=== PATIENT | female | born 1945 | race Caucasian/White ===

== ENCOUNTER 2018-04-17 16:19 | Emergency (ER) | payer MEDICARE, SELFPAY ==
[2018-04-17 16:21] VITALS: BP 176/97; PULSE 93; RESP 16; TEMP 37.3; O2SAT 96; BMI 38.2
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
[2018-04-17] MEDS: Morphine 4 MG/ML Syringe SC (17:16)
[2018-04-17] MEDS: Ondansetron 4 MG/2 ML Vial IV (17:16)
--- NOTE | 2018-04-17 19:21 | ED.DEP ---
ED Disposition - Plan for ED Patient: Chief Complaint: Fall Instructions: ED Mechanical Fall Referrals: Emerita Gottlieb MD [Primary Care Provider] -
[2018-04-17 19:34] VITALS: RESP 20
== END 2018-04-17 19:35 | disposition home or self-care (01) ==
PROVIDERS: Emergency Provider Emergency Medicine; Family Provider Internal Medicine; PCP Internal Medicine
DX: S29.012A Strain of muscle and tendon of back wall of thorax, initial encounter (principal); S39.012A Strain of muscle, fascia and tendon of lower back, initial encounter; S09.90XA Unspecified injury of head, initial encounter; I13.0 Hypertensive heart and chronic kidney disease with heart failure and stage 1 through stage 4 chronic kidney disease, or unspecified chronic kidney disease; E11.22 Type 2 diabetes mellitus with diabetic chronic kidney disease; N18.9 Chronic kidney disease, unspecified; I50.9 Heart failure, unspecified; E78.00 Pure hypercholesterolemia, unspecified; G47.30 Sleep apnea, unspecified; Z87.440 Personal history of urinary (tract) infections; Z87.891 Personal history of nicotine dependence; Z79.4 Long term (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 of insulin; Z79.899 Other long term (current) drug therapy; V09.9XXA Pedestrian injured in unspecified transport accident, initial encounter; Y93.89 Activity, other specified; Y92.89 Other specified places as the place of occurrence of the external cause; Y99.8 Other external cause status
CPT/HCPCS: 70450; 71045; 72072; 72100; 72125; 72170; 96372; 96374; 99284; J2405

== ENCOUNTER → 2018-04-27 13:17 | Outpatient (CLI) | payer MEDICARE, SELFPAY ==
--- NOTE | 2018-04-27 13:24 | RAD_ITS ---
STUDY: SWALLOWING STUDY REASON FOR EXAM: Female, 72 years old. Cough. Dysphagia. TECHNIQUE: The examination was performed with Speech Pathology in attendance. Under fluoroscopic observation, the patient ingested thin barium, thick barium, barium pudding, and barium coated cracker. FLUOROSCOPY TIME: 2:03 minutes/seconds. 2166 fluoroscopic images were obtained. RADIOLOGIST INVOLVEMENT: Radiologist was present and providing direct supervision. COMPARISON: None. FINDINGS: The following was observed during swallowing of the various mixtures of barium: Thin Barium: There was no evidence of aspiration or laryngeal penetration. Barium Pudding: There was no evidence of aspiration or laryngeal penetration. Barium Coated Cracker: There was no evidence of aspiration or laryngeal penetration. RAD/Swallowing Function w/Video IMPRESSION: Normal tailored barium swallow study. No evidence of increased risk for aspiration. The swallow study findings were discussed with the patient by the speech pathologist at the conclusion of the examination. Please see speech pathology report for more information and recommendations. Electronically Signed: Santiago Kwok MD at 14:37 EDT Tel [phone], Service support ,
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
== END ==
PROVIDERS: Family Provider Internal Medicine; PCP Internal Medicine; Visit Provider Internal Medicine
DX: R13.10 Dysphagia, unspecified (principal); T17.308A Unspecified foreign body in larynx causing other injury, initial encounter
CPT/HCPCS: 74230; 92611

== ENCOUNTER 2018-04-27 14:50 | Emergency (ER) | payer MEDICARE, SELFPAY ==
[2018-04-27 14:51] VITALS: BP 109/71; PULSE 106; RESP 22; TEMP 36.6; O2SAT 96; BMI 39.9
--- NOTE | 2018-04-27 15:05 | RAD_ITS ---
STUDY: X-RAY CHEST REASON FOR EXAM: Female, 72 years old. Shortness of breath. TECHNIQUE: Single AP portable view of the chest. COMPARISON: Comparison is made with prior study dated April 17, 2018. FINDINGS: Stable mild increased markings in the lingular segment of the left upper lobe. This most likely represents scarring. The right lung is clear. There is no demonstrated pleural abnormality. There is borderline cardiomegaly. A left-sided unipolar pacemaker is in situ. Normal mediastinum and susan. Normal visualized pulmonary arteries. There is atherosclerotic calcification of the aortic arch with tortuosity. There are diffuse degenerative changes of the visualized thoracic spine. Normal visualized ribs, clavicles, and shoulders. There is no demonstrated abnormality of the visualized soft tissue structures of the upper abdomen. RAD/Chest 1 View (Portable) IMPRESSION: Stable mild increased markings at the left lung base suggestive of scarring. Electronically Signed: Santiago Kwok MD at 15:17 EDT Tel [phone], Service support ,
[2018-04-27] MEDS: Albuterol 2.5 MG/3 ML VIAL.NEB. INHALATION (17:11)
[2018-04-27 17:12] VITALS: PULSE 100; RESP 18
[2018-04-27 17:21] VITALS: BP 118/76; PULSE 98; RESP 26; O2SAT 98
[2018-04-27 17:25] LABS: Absolute Lymphocyte Count 2.66 X10^3/ul (0.83-4.51); Absolute Neutrophil Count 8.3 X10^3/uL (2.0-7.7); Basophil# 0.05 X10^3/uL; Basophil% 0.4 % (0-1); Eosinophil# 0.22 X10^3/uL; Eosinophils% 1.8 % (0-5); Hematocrit 38.3 % (37-47); Hemoglobin 11.9 g/dl (12.0-15.0); Lymphocyte # 2.66 X10^3/ul (4.0); Lymphocyte % 22.1 % (19-41); Mean Corp Hgb Conc 31.1 g/gl (32-36); Mean Corpuscular Hgb 24.7 pg (27.0-32.0); Mean Corpuscular Volume 79.6 fL (81-99); Mean Platelet Vol. 11.1 fl (6.2-12.0); Monocyte# 0.75 X10^3/uL; Monocyte% 6.2 % (0-10); Neutrophil # 8.31 X10^3/uL (2.7-7.7); Neutrophil % 69.1 % (47-70); POSITIVE COUNT NO; POSITIVE DIFFERENTIAL NO; POSITIVE MORPHOLOGY NO; Platelet Count 266 K/mm3 (150-450); RBC Distribution Width CV 15.5 % (11.6-14.6); RBC Distribution Width SD 44.9 fl (35.1-43.9); Red Blood Count 4.81 M/mm3 (4.2-5.4)
[2018-04-27 17:37] LABS: ALB/GLOB Ratio 0.7 RATIO (0.9-2.4); AST(SGOT) 12 U/L (15-37); Alanine Aminotransfer ALT/SGPT 21 U/L (13-56); Albumin, Serum 3.2 g/dL (3.2-5.0); Alkaline Phosphatase 87 U/L (45-117); Anion Gap 8 (5-15); BUN 17 mg/dL (7-18); BUN/Creat Ratio 12.6 RATIO (10-20); Calcium,Total 8.9 mg/dL (8.5-10.1); Chloride 102 mmol/L (98-107); Creatinine, Serum 1.35 mg/dL (0.55-1.02); EST Glomerular Filtration Rate 41 mL/min (>60); Est Glom Filt Rate - Afr Amer 49 mL/min (>60); Estimated Creatinine Clearance 31.57 ml/min; Globulin 4.8 g/dL (2.2-4.2); Glucose 357 mg/dL (74-106); Potassium 3.9 mmol/L (3.5-5.1); Sodium Level 137 mmol/L (136-145)
[2018-04-27 17:41] VITALS: RESP 16; O2SAT 98
[2018-04-27 17:57] LABS: BNP,B-Type NATRIURETIC PEPTIDE 207.6 pg/mL (0-100)
--- NOTE | 2018-04-27 18:21 | ED.DCSUM_ITS ---
- ER Visit Summary Date of Service: 04/27/18 Chief Complaint: Shortness of breath, cough History of Present Illness: The patient is a 72 F who is had multiple weeks of shortness of breath and cough. It is worse with exertion. She has a cough is productive of whitish yellow sputum. She has a squeezing pains in her bilateral axillary areas. She states is getting worse. She has had some leg edema. She is already on Lasix. She is felt feverish but did not take her temperature. She did not call her primary care physician about this even though is been ongoing for multiple weeks. Physical Examination: Vital signs reviewed. HEENT exam unremarkable. Heart is regular rate and rhythm without murmurs. Lungs have some slight rales in the right base. Abdomen is soft and nontender. Extremities reveal no edema. Skin exam normal. Neurologic exam normal. Test Results: Chest x-ray reveals chronic changes. Labs show white blood cell count of 12. Hemoglobin 11.9. BNP 207. Troponin normal Emergency Department Course and Treatment: The patient looks very well. This is been ongoing for multiple weeks. I did give her albuterol here. I do not feel she requires admission to the hospital. I will give her a Z-Fadi and prednisone to take at home. She will follow-up with her PCP Treatment Plan: [] Disposition: Discharge Impression: Acute bronchitis This note was generated with [employer] dictation software. It may contain incorrect words, spelling, and punctuation that were not noted in review of the chart prior to signing ED Disposition - Plan for ED Patient: Chief Complaint: Shortness of Breath Referrals: Emerita Gottlieb MD [Primary Care Provider] -
--- NOTE | 2018-04-27 18:21 | ED.DEP ---
ED Disposition - Plan for ED Patient: Disposition: Home or Assisted Living Chief Complaint: Shortness of Breath Instructions: ED Upper Resp Infec Abx Tx Prescriptions: Azithromycin [Zithromax Z-Fadi] 250 mg PO UD #1 box Prednisone [Deltasone] 40 mg PO DAILY #10 tab Referrals: Emerita Gottlieb MD [Primary Care Provider] -
[2018-04-27 18:53] VITALS: BP 126/83; PULSE 84; RESP 18; O2SAT 100
--- NOTE | 2018-04-29 14:10 | CM.ED ---
ED CALLBACK: Follow-up call placed to patient. Patient states she feels better than when in the ED, but she is still tired and has a cough. She states that she has been taking her new prescriptions. I encouraged her to make an appointment with Dr. Gottlieb's office. She tells me she will do this today. Patient mentions medication questions and tells me that she forgets to take her medicines sometimes. We discussed the value of [facility]. Patient is agreeable to referral for [facility]. Referral sent.
== END 2018-04-27 18:54 | disposition home or self-care (01) ==
PROVIDERS: Emergency Provider Emergency Medicine; Family Provider Internal Medicine; PCP Internal Medicine
DX: J20.9 Acute bronchitis, unspecified (principal); R13.10 Dysphagia, unspecified; T17.308A Unspecified foreign body in larynx causing other injury, initial encounter; I50.9 Heart failure, unspecified; Z79.4 Long term (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 of insulin; Z79.899 Other long term (current) drug therapy
CPT/HCPCS: 71045; 80053; 83880; 84484; 85025; 93005; 94640; 94760; 99283

== ENCOUNTER 2018-05-10 07:48 | Emergency (ER) | payer MEDICARE, SELFPAY ==
[2018-05-10 07:48] VITALS: BP 146/94; PULSE 92; RESP 18; TEMP 37.3; O2SAT 99; BMI 41.3
--- NOTE | 2018-05-10 08:00 | CT_ITS ---
STUDY: CT ABDOMEN AND PELVIS WITHOUT CONTRAST REASON FOR EXAM: Female, 72 years old. UTI. RADIATION DOSAGE (If Supplied By Facility): CTDIvol = ( 19.33 ) mGy, DLP = ( 975.52 ) mGycm TECHNIQUE: Transaxial images were obtained from the dome of the diaphragm to the symphysis pubis without oral contrast, and without intravenous contrast. Sagittal and coronal images were reconstructed. Individualized dose optimization techniques were used for this CT. COMPARISON: None. FINDINGS: The visualized lung bases are unremarkable. The visualized portions of the heart are within normal limits. Normal liver. There are multiple gallstones. Normal spleen. Normal pancreas. Normal bilateral adrenal glands. Normal right kidney. Normal left kidney. Normal visualized stomach. Normal small intestine. Normal colon. There is non-visualization of the appendix. There is diffuse atherosclerotic calcification of the abdominal aorta, without a demonstrated aneurysm. Normal inferior vena cava. Normal retroperitoneum. Normal urinary bladder. Normal abdominal wall. There are diffuse degenerative changes of the visualized lumbar spine. CT/Abdomen/Pelvis without Cont IMPRESSION: Cholelithiasis. Moderate aortoiliac atherosclerosis Electronically Signed: Starla Abdullahi MD at 9:24 EDT Tel , Service support ,
--- NOTE | 2018-05-10 08:12 | ED.DCSUM_ITS ---
- ER Visit Summary Date of Service: 05/10/18 Chief Complaint: [Dysuria] History of Present Illness: The patient is a 72 F who has had burning with urination and frequency for the past 3 days. She lives alone and now she is incontinent, however she also complains of stool incontinence. Apparently she knows what she has to go but it is hard for her to get to the toilet in time. There is no diarrhea. She feels more weak. Physical Examination: Not appear in acute distress. Slightly dry mucous membranes, no obvious facial deformity No C-spine tenderness supple neck. Regular rate and rhythm without any obvious murmurs Clear lungs bilaterally speaking in full sentences without any obvious respiratory distress Abdomen soft with tenderness over the left lower quadrant area. No CVA tenderness. No guarding or rebound. Moves all extremities without any difficulty or pain. Skin does not show any obvious rashes or lesions, no trauma. Alert oriented ?3 with no gross focal deficit Emergency Department Course and Treatment: [Unremarkable workup. She did have signs and symptoms consistent with yeast infection, as far as her abdominal pain her CT is unremarkable without leukocytosis, I reassured her and she will be discharged in stable condition.] Impression: Abdominal pain Vaginal candidiasis This note was generated with [employer] dictation software. It may contain incorrect words, spelling, and punctuation that were not noted in review of the chart prior to signing ED Disposition - Plan for ED Patient: Disposition: Home or Assisted Living Chief Complaint: Complaint Instructions: ED Vaginal Infec Fungal Cher, Abdominal Pain Referrals: Emerita Gottlieb MD [Primary Care Provider] - 2 Days
[2018-05-10 08:40] LABS: Absolute Lymphocyte Count 2.04 X10^3/ul (0.83-4.51); Absolute Neutrophil Count 7.5 X10^3/uL (2.0-7.7); Basophil# 0.02 X10^3/uL; Basophil% 0.2 % (0-1); Eosinophil# 0.23 X10^3/uL; Eosinophils% 2.2 % (0-5); Hematocrit 38.3 % (37-47); Hemoglobin 12.1 g/dl (12.0-15.0); Lymphocyte # 2.04 X10^3/ul (4.0); Lymphocyte % 19.4 % (19-41); Mean Corp Hgb Conc 31.6 g/gl (32-36); Mean Corpuscular Hgb 25.2 pg (27.0-32.0); Mean Corpuscular Volume 79.6 fL (81-99); Monocyte# 0.68 X10^3/uL; Monocyte% 6.5 % (0-10); Neutrophil # 7.51 X10^3/uL (2.7-7.7); Neutrophil % 71.5 % (47-70); Platelet Count 166 K/mm3 (150-450); RBC Distribution Width CV 15.2 % (11.6-14.6); RBC Distribution Width SD 43.6 fl (35.1-43.9); Red Blood Count 4.81 M/mm3 (4.2-5.4); White Blood Count 10.5 K/mm3 (4.4-11.0)
[2018-05-10 08:45] LABS: ALB/GLOB Ratio 0.7 RATIO (0.9-2.4); AST(SGOT) 17 U/L (15-37); Alanine Aminotransfer ALT/SGPT 20 U/L (13-56); Albumin, Serum 3.2 g/dL (3.2-5.0); Alkaline Phosphatase 84 U/L (45-117); Anion Gap 6 (5-15); BUN 23 mg/dL (7-18); BUN/Creat Ratio 19.2 RATIO (10-20); Calcium,Total 9.3 mg/dL (8.5-10.1); Chloride 107 mmol/L (98-107); EST Glomerular Filtration Rate 47 mL/min (>60); Est Glom Filt Rate - Afr Amer 56 mL/min (>60); Estimated Creatinine Clearance 35.52 ml/min; Globulin 4.4 g/dL (2.2-4.2); Glucose 260 mg/dL (74-106); Potassium 4.2 mmol/L (3.5-5.1); Protein, Total 7.6 g/dL (6.4-8.2); Sodium Level 140 mmol/L (136-145)
[2018-05-10 08:46] LABS: Differential Indicated SCAN CRITERIA MET; POSITIVE COUNT NO; POSITIVE DIFFERENTIAL NO; POSITIVE MORPHOLOGY YES
[2018-05-10 10:56] VITALS: BP 173/76; PULSE 80; RESP 18; O2SAT 98
[2018-05-10 10:57] LABS: Bacteria 0 SEEN /hpf (None Seen); Mucous, Urine 0 SEEN /hpf (<or=2+); Red Blood Cells-Urine 0 SEEN /hpf (0-5); White Blood Cells 0 SEEN /hpf (0-5)
[2018-05-10 10:58] LABS: Color, Urine Yellow (Yellow); Glucose, Dipstick 250 mg/dl (Normal); Ketone-Dipstick Negative (Negative); Leukocyte Esterase-Dipstick Negative /ul (Negative); Nitrite-Dipstick Negative (Negative); Occult Blood-Urine 10 /ul (Negative); Protein-Dipstick 15 mg/dl (Negative); Specific Gravity, Urine 1.015 (1.002-1.030); Urine Bilirubin Dipstick Negative (Negative); Urine Clarity Clear (Clear); Urine Urobilinogen Normal (Normal)
[2018-05-10 11:12] LABS: Squamous Epithelial Cells - UA 0-5 SEEN /hpf (5-10)
--- NOTE | 2018-05-10 12:01 | ED.DEP ---
ED Disposition - Plan for ED Patient: Disposition: Home or Assisted Living Chief Complaint: Complaint Instructions: Abdominal Pain, ED Vaginal Infec Fungal Cher Prescriptions: Fluconazole [Diflucan] 150 mg PO X1 #1 tab Referrals: Emerita Gottlieb MD [Primary Care Provider] - 2 Days
[2018-05-10] MEDS: Fluconazole 100 MG Tablet 150 MG PO (12:18)
[2018-05-10 12:34] VITALS: BP 181/91; PULSE 100; RESP 18; O2SAT 98
--- NOTE | 2018-05-10 12:35 | ED.RN ---
REVIEWED D/C INSTRUCTIONS, FOLLOW UP CARE, PRESCRIPTION, AND S/S THAT WOULD WARRANT A RETURN TO THE ED WITH PT. PT VERBALIZED AN UNDERSTANDING AND DENIES FURTHER QUESTIONS FOR THIS RN. PT SKIN P/W/D, RESP EVEN AND UNLABORED, PT A&O X 3, NO DISTRESS NOTED. PT AMBULATED OUT OF ED, GAIT STEADY.
== END 2018-05-10 12:37 | disposition home or self-care (01) ==
PROVIDERS: Emergency Provider Emergency Medicine; Family Provider Internal Medicine; PCP Internal Medicine
DX: R10.32 Left lower quadrant pain (principal); B37.3 Candidiasis of vulva and vagina; E66.9 Obesity, unspecified; I10 Essential (primary) hypertension; E11.9 Type 2 diabetes mellitus without complications; Z79.4 Long term (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 of insulin; Z79.899 Other long term (current) drug therapy
CPT/HCPCS: 74176; 80053; 81001; 85025; 99285; A4216

== ENCOUNTER → 2018-05-12 15:58 | Outpatient (CLI) | payer MEDICARE, SELFPAY ==
[2018-05-12 17:39] LABS: Hematocrit 36.6 % (37-47); Hemoglobin 11.4 g/dl (12.0-15.0); Mean Corp Hgb Conc 31.1 g/gl (32-36); Mean Corpuscular Hgb 25.2 pg (27.0-32.0); Mean Platelet Vol. 11.7 fl (6.2-12.0); Platelet Count 172 K/mm3 (150-450); RBC Distribution Width CV 15.5 % (11.6-14.6); RBC Distribution Width SD 45.6 fl (35.1-43.9); Red Blood Count 4.52 M/mm3 (4.2-5.4); White Blood Count 10.4 K/mm3 (4.4-11.0)
[2018-05-12 17:47] LABS: Scan Indicated on CBC? Y/N YES- FLAGS NOTED
[2018-05-12 18:16] LABS: ALB/GLOB Ratio 0.7 RATIO (0.9-2.4); AST(SGOT) 15 U/L (15-37); Alanine Aminotransfer ALT/SGPT 19 U/L (13-56); Alkaline Phosphatase 76 U/L (45-117); Anion Gap 6 (5-15); BUN 26 mg/dL (7-18); BUN/Creat Ratio 20.3 RATIO (10-20); Calcium,Total 8.4 mg/dL (8.5-10.1); Chloride 107 mmol/L (98-107); Creatinine, Serum 1.28 mg/dL (0.55-1.02); EST Glomerular Filtration Rate 43 mL/min (>60); Est Glom Filt Rate - Afr Amer 52 mL/min (>60); Globulin 4.3 g/dL (2.2-4.2); Glucose 338 mg/dL (74-106); Phosphorus 3.5 mg/dL (2.5-4.9); Potassium 4.4 mmol/L (3.5-5.1); Protein, Total 7.3 g/dL (6.4-8.2); Sodium Level 140 mmol/L (136-145)
[2018-05-13 08:35] LABS: Vitamin B12 478 pg/mL (211-911); Vitamin D,25 Hydroxy 23.3 ng/mL (29.95-100.01)
[2018-05-15 00:19] LABS: Rapid Plasmin Reagin (RPR) NONREACTIVE (NONREACTIVE)
[2018-05-16 13:06] LABS: Creatinine, Urine 0.86 g/L (0.30-3.00)
== END ==
PROVIDERS: Family Provider Internal Medicine; PCP Internal Medicine; Visit Provider Nurse Practitioner Acute Care
DX: R56.9 Unspecified convulsions (principal); R41.3 Other amnesia
CPT/HCPCS: 36415; 80053; 82175; 82306; 82570; 82607; 82746; 83655; 83735; 83825; 84100; 85027; 86592

== ENCOUNTER → 2018-05-27 14:23 | Outpatient (CLI) | payer MEDICARE, SELFPAY | PROVIDERS: Family Provider Internal Medicine; PCP Internal Medicine; Visit Provider Nurse Practitioner Acute Care | DX: R41.3 Other amnesia (principal); R41.0 Disorientation, unspecified; R56.9 Unspecified convulsions | CPT/HCPCS: 70450 ==

== ENCOUNTER → 2018-05-29 20:32 | Outpatient (CLI) | payer MEDICARE, SELFPAY | PROVIDERS: Family Provider Internal Medicine; PCP Internal Medicine; Visit Provider Nurse Practitioner Acute Care | DX: G47.33 Obstructive sleep apnea (adult) (pediatric) (principal) | CPT/HCPCS: 95810 ==

== ENCOUNTER 2018-06-04 19:20 | Observation (INO) | payer MEDICARE, SELFPAY ==
[2018-06-04 19:21] VITALS: BP 131/74; PULSE 90; RESP 20; TEMP 36.8; O2SAT 95; BMI 40.1
--- NOTE | 2018-06-04 19:30 | ED.RN ---
RN CALLED FOR EKG, PULLED OLD EKGS FOR
--- NOTE | 2018-06-04 20:00 | ED.VISSUMM ---
- ER Visit Summary Date of Service: 06/04/18 Chief Complaint: Chest pain History of Present Illness: The patient is a 72 F with history of stroke, coronary artery disease, CHF, diabetes, hypertension, atrial fibrillation who is on Xarelto on prasugrel who presents for chest pain. Onset was this evening prior to calling 911. Patient states she was sitting on the porch and got up to walk into the living room. When she got into the living room she had onset of chest pain and epigastric pain, describing it like being punched in the chest. Pain is substernal and currently radiates down to the upper abdomen. She has associated shortness of breath. Denies fever, nausea or vomiting, diarrhea, urinary symptoms. No cough or fever. Pain waxes and wanes in intensity currently. Patient received aspirin prehospital. She denies taking aspirin or nitro at home. Physical Examination: Vital signs: afebrile, hemodynamically stable, no hypoxia on room air General: well nourished, well developed, in no distress Skin: warm, dry, no rash, no pallor HEENT: normocephalic and atraumatic; PERRL, EOMI, moist mucous membranes Cardiovascular: irregular rhythm without murmurs, symmetric tense 1+ pitting peripheral edema, tenderness, 2+ pulses all distal extremities Respiratory: No increased work of breathing, lungs are clear to auscultation bilaterally, no rales, rhonchi or wheezing Abdominal: Abdomen is obese, distended, tender to palpation diffusely, especially in the upper quadrants, normoactive bowel sounds, no guarding or rebound, no pulsatile masses MSK: Moves all extremities, no deformities, normal strength Neuro: Awake and alert, oriented ?4. No facial droop, sensation and motor function intact and symmetric Test Results: Abnormal Lab Results 06/04/18 06/04/18 06/04/18 19:35 19:35 19:35 WBC 10.0 RBC 4.36 Hgb 10.7 L Hct 34.6 L MCV 79.4 L MCH 24.5 L MCHC 30.9 L RDW 15.4 H RDW Differential 44.6 H Plt Count 200 MPV 11.7 Immature Gran % (Auto) 0.200 Neut % (Auto) 70.1 H Lymph % (Auto) 19.5 [place] % (Auto) 7.2 Eos % (Auto) 2.6 Baso % (Auto) 0.4 Absolute Neuts (auto) 7.0 Absolute Lymphs (auto) 1.95 Total Counted Not Reportable PT 19.5 H INR 1.6 APTT 38.2 H Sodium 144 Potassium 3.9 Chloride 109 H Carbon Dioxide 27.0 Anion Gap 8 BUN 20 H Creatinine 1.20 H Estim Creat Clear Calc 35.52 Est GFR (MDRD) Af Amer 56 L Est GFR (MDRD) Non-Af 47 L BUN/Creatinine Ratio 16.7 Glucose 172 H Calcium 8.5 Total Bilirubin Direct Bilirubin AST ALT Alkaline Phosphatase Troponin I < 0.015 Total Protein Albumin Globulin Lipase Urine Color Urine Clarity Urine pH Ur Specific [place] Urine Protein Urine Glucose (UA) Urine Ketones Urine Occult Blood Urine Nitrite Urine Bilirubin Urine Urobilinogen Ur Leukocyte Esterase Urine RBC Urine WBC Ur Squamous Epith Cells Ur Transition Epith Cell Urine Bacteria Hyaline Casts Urine Mucus 06/04/18 06/04/18 06/04/18 19:35 20:30 23:25 WBC RBC Hgb Hct MCV MCH MCHC RDW RDW Differential Plt Count MPV Immature Gran % (Auto) Neut % (Auto) Lymph % (Auto) [place] % (Auto) Eos % (Auto) Baso % (Auto) Absolute Neuts (auto) Absolute Lymphs (auto) Total Counted PT INR APTT Sodium Potassium Chloride Carbon Dioxide Anion Gap BUN Creatinine Estim Creat Clear Calc Est GFR (MDRD) Af Amer Est GFR (MDRD) Non-Af BUN/Creatinine Ratio Glucose Calcium Total Bilirubin 0.60 Direct Bilirubin 0.14 AST 13 L ALT 18 Alkaline Phosphatase 91 Troponin I < 0.015 Total Protein 7.2 Albumin 3.1 L Globulin 4.1 Lipase 65 L Urine Color Yellow Urine Clarity Cloudy Urine pH 5.0 Ur Specific [place] 1.020 Urine Protein 15 H Urine Glucose (UA) Normal Urine Ketones Negative Urine Occult Blood 25 H Urine Nitrite Negative Urine Bilirubin Negative Urine Urobilinogen Normal Ur Leukocyte Esterase 500 H Urine RBC 0-5 SEEN Urine WBC 10-25 SEEN Ur Squamous Epith Cells 0-5 SEEN Ur Transition Epith Cell 0-5 SEEN Urine Bacteria 0 SEEN Hyaline Casts 5-10 SEEN Urine Mucus 1+ Clinical Impression(s) from Imaging Studies Chest X-Ray 06/04/18 19:35 IMPRESSION: No acute thoracic pathology. Electronically Signed: Jarad Alvarez, at 19:48 EDT Tel , Service support , Abdomen/Pelvis CT 06/04/18 19:55 IMPRESSION: No acute abdominal or pelvic pathology demonstrated on this noncontrast CT. Atherosclerosis and coronary artery disease. Gallstones. Electronically Signed: Jarad Alvarez, at 20:41 EDT Tel , Service support , Emergency Department Course and Treatment: Patient presents with complaint of acute onset of chest pain with radiation into the abdomen. Given her age and multiple comorbidities, the associated abdominal pain may be cardiac in nature, or may be secondary to a primary abdominal process. EKG showed a right bundle branch block that was not present on patient's prior EKGs. The QRS morphology is similar but the QRS interval has widened. No ischemic changes noted. Troponin negative. Labs showed no significant anemia or leukocytosis. Renal function at baseline. Hepatic function within normal limits. Urine was insistent with asymptomatic pyuria, as patient does not have any urinary complaints at this time. Patient received aspirin prehospital and received nitroglycerin sublingual. She had modest improvement of her pain with the nitro. She was given additional morphine. CT the abdomen and pelvis was performed given patient's abdominal tenderness, and it showed no acute process to account for patient's pain. Chest x-ray also showed no signs of acute CHF or other acute process. On reevaluation patient stated her pain was returning, and thus a repeat EKG was performed. It showed no changes from the initial one. Given patient's significant risk factors and cardiac history as well as her presenting complaints, she was admitted for further chest pain workup. Patient discussed with Dr. Chaney for admission under observation status. Treatment Plan: [] Disposition: [] Impression: Acute chest pain, abdominal pain, history of coronary artery disease, history of CHF, history of diabetes, history of A. fib, history of hypertension This note was generated with [employer] software. It may contain incorrect words, spelling, and punctuation that were not noted in review of the chart prior to signing ED Disposition - Plan for ED Patient: Disposition: Acute Care Hospital [facility] Chief Complaint: Chest Pain
[2018-06-04 20:04] LABS: International Normalized Ratio 1.6; Prothrombin Time (Protime)PT. 19.5 SECONDS (11.7-14.9)
--- NOTE | 2018-06-04 20:04 | ED.DCSUM_ITS ---
- ER Visit Summary Date of Service: 06/04/18 Chief Complaint: Chest pain History of Present Illness: The patient is a 72 F with history of stroke, coronary artery disease, CHF, diabetes, hypertension, atrial fibrillation who is on Xarelto on prasugrel who presents for chest pain. Onset was this evening prior to calling 911. Patient states she was sitting on the porch and got up to walk into the living room. When she got into the living room she had onset of chest pain and epigastric pain, describing it like being punched in the chest. Pain is substernal and currently radiates down to the upper abdomen. She has associated shortness of breath. Denies fever, nausea or vomiting, diarrhea, urinary symptoms. No cough or fever. Pain waxes and wanes in intensity currently. Patient received aspirin prehospital. She denies taking aspirin or nitro at home. Physical Examination: Vital signs: afebrile, hemodynamically stable, no hypoxia on room air General: well nourished, well developed, in no distress Skin: warm, dry, no rash, no pallor HEENT: normocephalic and atraumatic; PERRL, EOMI, moist mucous membranes Cardiovascular: irregular rhythm without murmurs, symmetric tense 1+ pitting peripheral edema, tenderness, 2+ pulses all distal extremities Respiratory: No increased work of breathing, lungs are clear to auscultation bilaterally, no rales, rhonchi or wheezing Abdominal: Abdomen is obese, distended, tender to palpation diffusely, especially in the upper quadrants, normoactive bowel sounds, no guarding or rebound, no pulsatile masses MSK: Moves all extremities, no deformities, normal strength Neuro: Awake and alert, oriented ?4. No facial droop, sensation and motor function intact and symmetric Test Results: Abnormal Lab Results 06/04/18 06/04/18 06/04/18 19:35 19:35 19:35 WBC 10.0 RBC 4.36 Hgb 10.7 L Hct 34.6 L MCV 79.4 L MCH 24.5 L MCHC 30.9 L RDW 15.4 H RDW Differential 44.6 H Plt Count 200 MPV 11.7 Immature Gran % (Auto) 0.200 Neut % (Auto) 70.1 H Lymph % (Auto) 19.5 [place] % (Auto) 7.2 Eos % (Auto) 2.6 Baso % (Auto) 0.4 Absolute Neuts (auto) 7.0 Absolute Lymphs (auto) 1.95 Total Counted Not Reportable PT 19.5 H INR 1.6 APTT 38.2 H Sodium 144 Potassium 3.9 Chloride 109 H Carbon Dioxide 27.0 Anion Gap 8 BUN 20 H Creatinine 1.20 H Estim Creat Clear Calc 35.52 Est GFR (MDRD) Af Amer 56 L Est GFR (MDRD) Non-Af 47 L BUN/Creatinine Ratio 16.7 Glucose 172 H Calcium 8.5 Total Bilirubin Direct Bilirubin AST ALT Alkaline Phosphatase Troponin I < 0.015 Total Protein Albumin Globulin Lipase Urine Color Urine Clarity Urine pH Ur Specific [place] Urine Protein Urine Glucose (UA) Urine Ketones Urine Occult Blood Urine Nitrite Urine Bilirubin Urine Urobilinogen Ur Leukocyte Esterase Urine RBC Urine WBC Ur Squamous Epith Cells Ur Transition Epith Cell Urine Bacteria Hyaline Casts Urine Mucus 06/04/18 06/04/18 06/04/18 19:35 20:30 23:25 WBC RBC Hgb Hct MCV MCH MCHC RDW RDW Differential Plt Count MPV Immature Gran % (Auto) Neut % (Auto) Lymph % (Auto) [place] % (Auto) Eos % (Auto) Baso % (Auto) Absolute Neuts (auto) Absolute Lymphs (auto) Total Counted PT INR APTT Sodium Potassium Chloride Carbon Dioxide Anion Gap BUN Creatinine Estim Creat Clear Calc Est GFR (MDRD) Af Amer Est GFR (MDRD) Non-Af BUN/Creatinine Ratio Glucose Calcium Total Bilirubin 0.60 Direct Bilirubin 0.14 AST 13 L ALT 18 Alkaline Phosphatase 91 Troponin I < 0.015 Total Protein 7.2 Albumin 3.1 L Globulin 4.1 Lipase 65 L Urine Color Yellow Urine Clarity Cloudy Urine pH 5.0 Ur Specific [place] 1.020 Urine Protein 15 H Urine Glucose (UA) Normal Urine Ketones Negative Urine Occult Blood 25 H Urine Nitrite Negative Urine Bilirubin Negative Urine Urobilinogen Normal Ur Leukocyte Esterase 500 H Urine RBC 0-5 SEEN Urine WBC 10-25 SEEN Ur Squamous Epith Cells 0-5 SEEN Ur Transition Epith Cell 0-5 SEEN Urine Bacteria 0 SEEN Hyaline Casts 5-10 SEEN Urine Mucus 1+ Clinical Impression(s) from Imaging Studies Chest X-Ray 06/04/18 19:35 IMPRESSION: No acute thoracic pathology. Electronically Signed: Jarad Alvarez, at 19:48 EDT Tel , Service support , Abdomen/Pelvis CT 06/04/18 19:55 IMPRESSION: No acute abdominal or pelvic pathology demonstrated on this noncontrast CT. Atherosclerosis and coronary artery disease. Gallstones. Electronically Signed: Jarad Alvarez, at 20:41 EDT Tel , Service support , Emergency Department Course and Treatment: Patient presents with complaint of acute onset of chest pain with radiation into the abdomen. Given her age and multiple comorbidities, the associated abdominal pain may be cardiac in nature, or may be secondary to a primary abdominal process. EKG showed a right bundle branch block that was not present on patient's prior EKGs. The QRS morphology is similar but the QRS interval has widened. No ischemic changes noted. Troponin negative. Labs showed no significant anemia or leukocytosis. Renal function at baseline. Hepatic function within normal limits. Urine was insistent with asymptomatic pyuria, as patient does not have any urinary complaints at this time. Patient received aspirin prehospital and received nitroglycerin sublingual. She had modest improvement of her pain with the nitro. She was given additional morphine. CT the abdomen and pelvis was performed given patient's abdominal tenderness, and it showed no acute process to account for patient's pain. Chest x-ray also showed no signs of acute CHF or other acute process. On reevaluation patient stated her pain was returning, and thus a repeat EKG was performed. It showed no changes from the initial one. Given patient's significant risk factors and cardiac history as well as her presenting complaints, she was admitted for further chest pain workup. Patient discussed with Dr. Chaney for admission under observation status. Treatment Plan: [] Disposition: [] Impression: Acute chest pain, abdominal pain, history of coronary artery disease , history of CHF, history of diabetes, history of A. fib, history of hypertension This note was generated with [employer] software. It may contain incorrect words, spelling, and punctuation that were not noted in review of the chart prior to signing ED Disposition - Plan for ED Patient: Disposition: Acute Care Hospital [facility] Chief Complaint: Chest Pain
[2018-06-04 20:05] LABS: Hemoglobin 10.7 g/dl (12.0-15.0); Partial Thromboplast Time 38.2 Seconds (24.1-36.2); Red Blood Count 4.36 M/mm3 (4.2-5.4)
[2018-06-04 20:06] LABS: Hematocrit 34.6 % (37-47); Mean Corp Hgb Conc 30.9 g/gl (32-36); Mean Corpuscular Hgb 24.5 pg (27.0-32.0); Mean Corpuscular Volume 79.4 fL (81-99); Mean Platelet Vol. 11.7 fl (6.2-12.0); POSITIVE COUNT NO; POSITIVE DIFFERENTIAL NO; POSITIVE MORPHOLOGY NO; Platelet Count 200 K/mm3 (150-450); RBC Distribution Width CV 15.4 % (11.6-14.6); RBC Distribution Width SD 44.6 fl (35.1-43.9)
[2018-06-04 20:07] LABS: Basophil% 0.4 % (0-1); Eosinophils% 2.6 % (0-5); Lymphocyte % 19.5 % (19-41); Monocyte% 7.2 % (0-10); Neutrophil % 70.1 % (47-70)
[2018-06-04 20:08] LABS: Absolute Lymphocyte Count 1.95 X10^3/ul (0.83-4.51); Lymphocyte # 1.95 X10^3/ul (4.0); Neutrophil # 7.03 X10^3/uL (2.7-7.7)
[2018-06-04 20:09] LABS: Basophil# 0.04 X10^3/uL; Eosinophil# 0.26 X10^3/uL; Monocyte# 0.72 X10^3/uL
[2018-06-04 20:16] LABS: AST(SGOT) 13 U/L (15-37); Alanine Aminotransfer ALT/SGPT 18 U/L (13-56); Albumin, Serum 3.1 g/dL (3.2-5.0); Alkaline Phosphatase 91 U/L (45-117); Anion Gap 8 (5-15); BUN 20 mg/dL (7-18); BUN/Creat Ratio 16.7 RATIO (10-20); Bilirubin, Direct 0.14 mg/dL (0.00-0.30); Calcium,Total 8.5 mg/dL (8.5-10.1); Chloride 109 mmol/L (98-107); EST Glomerular Filtration Rate 47 mL/min (>60); Est Glom Filt Rate - Afr Amer 56 mL/min (>60); Estimated Creatinine Clearance 35.52 ml/min; Globulin 4.1 g/dL (2.2-4.2); Glucose 172 mg/dL (74-106); Lipase 65 U/L (73-393); Potassium 3.9 mmol/L (3.5-5.1); Protein, Total 7.2 g/dL (6.4-8.2); Sodium Level 144 mmol/L (136-145)
[2018-06-04 20:33] VITALS: PULSE 79; RESP 20; O2SAT 96
[2018-06-04 20:40] LABS: Bacteria 0 SEEN /hpf (None Seen)
[2018-06-04 20:41] LABS: Color, Urine Yellow (Yellow); Glucose, Dipstick Normal (Normal); Ketone-Dipstick Negative (Negative); Leukocyte Esterase-Dipstick 500 /ul (Negative); Nitrite-Dipstick Negative (Negative); Occult Blood-Urine 25 /ul (Negative); Protein-Dipstick 15 mg/dl (Negative); Urine Bilirubin Dipstick Negative (Negative); Urine Clarity Cloudy (Clear); Urine Urobilinogen Normal (Normal)
[2018-06-04 20:49] LABS: Hyaline Cast 5-10 SEEN /lpf (0-5); Mucous, Urine 1+ /hpf (<or=2+)
[2018-06-04 20:53] LABS: Squamous Epithelial Cells - UA 0-5 SEEN /hpf (5-10); Transitional Epithelial - Ur 0-5 SEEN /hpf (0-5); White Blood Cells 10-25 SEEN /hpf (0-5)
[2018-06-04 20:54] LABS: Red Blood Cells-Urine 0-5 SEEN /hpf (0-5)
--- NOTE | 2018-06-04 21:51 | NURSING ---
Called [facility] charge nursedelbert to send patient to the floor.
--- NOTE | 2018-06-04 22:34 | PCM.HP.STD ---
History of Present Illness Date of Admission: 06/04/18 Chief Complaint: Chest and abdominal pain today The patient is a 72 year old F with history of coronary artery disease status post stents, congestive heart failure with preserved EF 75% as per echo in February 2015, chronic A. paras on Xarelto came to ER after she had chest pain with progressed abdominal pain. Chest pain was midsternal, brought by walking from porch to the living room associated with shortness of breath and radiation to pain to abdomen and epigastric region. She further said her pain moved to the left side of her abdomen. She is not a good historian and complain of pain all over right side of back, lumbosacral spine seems to be more chronic in nature. She also has compromised functional capacity and gets easily short of breath on climbing stairs and walking. Her home theater installer is Dr. Diaz. She had cardiac stents done in [facility]. As per the last echo in February 2015 EF 75% with no regional wall motion abnormality. Mild aortic stenosis. Normal RV size systolic function. LA moderately enlarged. Normal right atrium. [] In the ED, she had CT abdomen which showed gallstones. She had previous CT abdomen done in May 10, 2018 which also showed multiple gallstones with normal liver, pancreas. LFTs are normal except low albumin. Chest x-ray does not show acute change. His chronic left midlung atelectasis. Pacemaker present. Past Medical History Past Medical History (Chronic Problems): Chronic Problems Migraine (Chronic) Hyperlipidemia (Chronic) Hypertension (Chronic) Benign essential hypertension (Chronic) CAD (coronary artery disease) (Chronic) Chronic CHF (Chronic) Chronic constipation (Chronic) Type II diabetes mellitus (Chronic) Morbid obesity (Chronic) Osteoarthritis (Chronic) Spondylosis (Chronic) History of urinary incontinence (Chronic) Chronic back pain (Chronic) Sleep apnea (Chronic) CKD (chronic kidney disease) stage 3, GFR 30-59 ml/min (Chronic) Allergies atorvastatin calcium [From Lipitor] Allergy (Verified 06/04/18 19:26) dont remember codeine Allergy (Verified 06/04/18 19:26) Rash iodine Allergy (Verified 06/04/18 19:26) Rash Latex, Natural Rubber Allergy (Verified 06/04/18 19:26) Rash lovastatin Allergy (Verified 06/04/18 19:26) Rash rosuvastatin calcium [From Crestor] Allergy (Verified 06/04/18 19:26) rash\ naproxen [From Naprosyn] Adverse Reaction (Verified 06/04/18 19:26) Upset Stomach pregabalin [From Lyrica] Adverse Reaction (Verified 06/04/18 19:26) Upset Stomach Sulfa (Sulfonamide Antibiotics) Adverse Reaction (Verified 06/04/18 19:26) Upset Stomach Home Medications: Ambulatory Orders Medication Instructions Recorded Isosorbide Mononitrate [Imdur] 90 mg PO DAILY #90 tablet 06/21/16 Insulin Aspart [Novolog Flexpen] 24 units SC TIDCM 03/12/17 Insulin Degludec [Tresiba 70 unit SQ DAILY 10/11/17 Flextouch U-100] Metoprolol Succinate [Toprol Xl] 50 mg PO DAILY 10/11/17 Morphine Sulfate/Naltrexone 1 tab PO BID PRN 10/11/17 [Embeda ER 20-0.8 mg Capsule] levETIRAcetam tablet [Keppra 500 mg PO BID 10/11/17 tablet] Fluticasone 0.05% [Flonase Nasal 2 sprays NASAL DAILY 04/27/18 [place]] Furosemide [Lasix] 20 mg PO BID 04/27/18 Lisinopril [Zestril] 20 mg PO DAILY 04/27/18 Omeprazole [Omeprazole] 20 mg PO DAILY 04/27/18 Polyethylene Glycol 3350 [Miralax] 17 gm PO DAILY 04/27/18 Memantine HCl [Namenda] 10 mg PO BID 05/10/18 Ketorolac Tromethamine [Acular] 1 drop OP 4X/DAY 06/04/18 Moxifloxacin HCl [Moxifloxacin] 1 drop LEFT EYE 4X/DAY 06/04/18 Prasugrel HCl 10 mg PO DAILY 06/04/18 Prednisolone Acetate [Prednisolone 1 drop LEFT EYE 4X/DAY 06/04/18 Acetate] Rivaroxaban [Xarelto] 15 mg PO DAILY 06/04/18 Simvastatin [Zocor] 40 mg PO QHS 06/04/18 Surgical History: hysterectomy, - - Placement of 2 coronary artery stents; Thyroidectomy for goiter. Psychiatric History: No pertinent psych hx [employer] History: No pertinent [employer] history Smoking Status: Former smoker - *Family History Maternal History Items: - - History of alcoholic cirrhosis Paternal History Items: Cancer - Her father had colon cancer. Sibling History Items: Cancer - Her sister had ovarian cancer., Hypertension Review of Systems Constitutional: Reports: Malaise, Weakness. Denies: Chills, Fever, Weight Change HEENT: Denies: Head Aches, Sinus Congestion, Sinus Drainage Cardiovascular: Reports: Chest Pain, Edema. Denies: Palpitations Respiratory: Reports: Shortness of breath upon exertion. Denies: Cough, Shortness of breath at rest, Sputum production Gastrointestinal: Reports: Abdominal Pain, Nausea, Vomiting - Nausea vomiting. Denies: Hematemesis, Hematochezia, Melena Genitourinary: Denies: Dysuria Musculoskeletal: Denies: Joint Pain, Joint Tenderness Skin: Denies: Rash, Wounds Neurological: Denies: Numbness, Tingling, Focal weakness Psychiatric: Denies: Anxiety, Depression, Homicidal Ideations, Suicidal Ideations Hematologic/ Lymphatic: Denies: Easy Bruising, Easy Bleeding VTE Information - Inpt Only VTE Present on Admission: No VTE Mechan Device Prophylaxis: None VTE Pharm Prophylaxis ordered?: Yes - Physical Exam General: Alert, Oriented x3, Cooperative HEENT: Atraumatic, PERRLA, EOMI, Normocephalic, - - Recent cataract surgery. Mild redness of eyes, most probably from recent cataract surgery. Oral: Moist Mucosa, - Neck: Supple, No JVD, Negative Carotid Bruits Lungs: Clear to auscultation, Normal air movement, No rhonchi, No wheeze, No rales Cardiovascular: Normal S1, Normal S2, No murmurs, Irregular Rate, Murmur - Systolic murmur present over aortic region. Abdomen: Bowel Sounds Present, Soft, Non-Distended, Tender - Tenderness present over epigastrium, right and left upper quadrant but left upper quadrant is more tender than right. Extremities: Capillary Refill Less than 3 Seconds, Edema Skin: No rashes, No breakdown Musculoskeletal: No Tenderness to Palpation of Joints or Extremities Neurological: Cranial nerves II-XII grossly intact Psych/Mental Status: Normal Affect, Appropriate Vital Signs Temp Pulse Resp BP Pulse Ox 98.2 F 79 20 H 131/74 H 96 06/04/18 19:21 06/04/18 20:33 06/04/18 20:33 06/04/18 19:06/04/18 20:33 Assessment/Plan All Active Problems UTI (urinary tract infection) (Acute) Pneumococcal pneumonia (Acute) Sepsis (Acute) Hypoglycemia (Acute) Chest pain (Acute) Dehydration (Acute) UTI (urinary tract infection) (Acute) Acute delirium (Acute) Delirium (Acute) Sepsis (Acute) Acute cystitis (Acute) Influenza A (Resolved) The patient is a 72 year old F with history of coronary artery disease status post stents, congestive heart failure with preserved EF 75% as per echo in February 2015, chronic A. fib on Xarelto came to ER after she had chest pain with progressed abdominal pain. Chest pain was midsternal, brought by walking from porch to the living room associated with shortness of breath and radiation to pain to abdomen and epigastric region. She further said her pain moved to the left side of her abdomen. She is not a good historian and complain of pain all over right side of back, lumbosacral spine seems to be more chronic in nature. She also has compromised functional capacity and gets easily short of breath on climbing stairs and walking. Her home theater installer is Dr. Diaz. She had cardiac stents done in [facility]. As per the last echo in February 2015 EF 75% with no regional wall motion abnormality. Mild aortic stenosis. Normal RV size systolic function. LA moderately enlarged. Normal right atrium. [] In the ED, she had CT abdomen which showed gallstones. She had previous CT abdomen done in May 10, 2018 which also showed multiple gallstones with normal liver, pancreas. LFTs are normal except low albumin. Chest x-ray does not show acute change. His chronic left midlung atelectasis. Pacemaker present. 1. Atypical chest pain with history of coronary artery disease status post stents: EKG shows A. fib. Patient is being admitted to PCU. On ACS protocol. Continue patient's home medication including aspirin, Prasugrel, metoprolol, lisinopril, Imdur and statin. Cycle cardiac enzymes. If negative patient can go for nuclear stress test tomorrow morning. 2. Abdominal pain with with cholelithiasis concern of acute cholecystitis: Patient LFTs normal. Abdominal pain is not typical of cholecystitis as pain radiated from epigastric to left upper quadrant. Lipase is normal. CT abdomen is without contrast so limited significance. Right upper quadrant sonogram ordered. General surgery consult tomorrow morning for further opinion. Repeat CMP tomorrow morning. 3. Coronary artery disease status post stents, chronic heart failure with preserved EF, hypertension: Chest x-ray is clear. BNP ordered. Continue home dose of Lasix 20 mg twice daily. 4. Diabetes mellitus type 2 with morbid obesity: A1c tomorrow a.m. Blood sugar is 172 in BMP. Continue home dose of long-acting insulin and NovoLog insulin. 5. CKD stage III, probably hypertensive and diabetic nephropathy: Monitor intake and output. Monitor electrolytes and kidney function. Her creatinine seems to be on baseline last 1 1.2 May 10 and 1.35 on April 27. Other comorbidities include dyslipidemia, recent UTI for which patient came to ER on 05/10/2018 and completed 1 week of antibiotics about 2 weeks ago, possible sleep apnea, : Home medication reconciliation done. The patient is not using CPAP at home, said her insurance took it off. Multiple comorbidities complicates the present care and expect difficult and delay recovery DVT prophylaxis: Patient on Xarelto. Laboratory Results 06/04/18 19:35: WBC 10.0, RBC 4.36, Hgb 10.7 L, Hct 34.6 L, MCV 79.4 L, MCH 24.5 L, MCHC 30.9 L, RDW 15.4 H, RDW Differential 44.6 H, Plt Count 200, MPV 11.7, Immature Gran % (Auto) 0.200, Neut % (Auto) 70.1 H, Lymph % (Auto) 19.5, Grand % (Auto) 7.2, Eos % (Auto) 2.6, Baso % (Auto) 0.4, Absolute Neuts (auto) 7.0, Absolute Lymphs (auto) 1.95, Total Counted Not Reportable 06/04/18 19:35: PT 19.5 H, INR 1.6, APTT 38.2 H 06/04/18 19:35: Sodium 144, Potassium 3.9, Chloride 109 H, Carbon Dioxide 27.0, Anion Gap 8, BUN 20 H, Creatinine 1.20 H, Estim Creat Clear Calc 35.52, Est GFR (MDRD) Af Amer 56 L, Est GFR (MDRD) Non-Af 47 L, BUN/Creatinine Ratio 16.7, Glucose 172 H, Calcium 8.5, Troponin I < 0.015 06/04/18 19:35: Total Bilirubin 0.60, Direct Bilirubin 0.14, AST 13 L, ALT 18, Alkaline Phosphatase 91, Total Protein 7.2, Albumin 3.1 L, Globulin 4.1, Lipase 65 L 06/04/18 20:30: Urine Color Yellow, Urine Clarity Cloudy, Urine pH 5.0, Ur Specific [place] 1.020, Urine Protein 15 H, Urine Glucose (UA) Normal, Urine Ketones Negative, Urine Occult Blood 25 H, Urine Nitrite Negative, Urine Bilirubin Negative, Urine Urobilinogen Normal, Ur Leukocyte Esterase 500 H, Urine RBC 0-5 SEEN, Urine WBC 10-25 SEEN, Ur Squamous Epith Cells 0-5 SEEN, Ur Transition Epith Cell 0-5 SEEN, Urine Bacteria 0 SEEN, Hyaline Casts 5-10 SEEN, Urine Mucus 1+ Clinical Impression(s) from Imaging Studies Chest X-Ray 06/04/18 19:35 IMPRESSION: No acute thoracic pathology. Abdomen/Pelvis CT 06/04/18 19:55 IMPRESSION: No acute abdominal or pelvic pathology demonstrated on this noncontrast CT. Atherosclerosis and coronary artery disease. Gallstones. Code Visit Inpatient E&M: 27972 Init Hosp L3
[2018-06-04 23:27] VITALS: PULSE 72
[2018-06-04 23:40] VITALS: BP 166/91; PULSE 86; RESP 20; TEMP 36.7; O2SAT 98
[2018-06-04 23:49] VITALS: BMI 40.8
[2018-06-04 23:54] VITALS: BMI 40.8
[2018-06-05] VITALS (11 sets, daily range): BP systolic 129–195; BP diastolic 70–93; PULSE 73–90; RESP 16–20; TEMP 36.6–36.9; O2SAT 94–98
[2018-06-05] MEDS: prednisoLONE eye drops (1 mL) 1 DROP OPTH.BTL 1 DRP LEFT EYE ×5 (00:38→21:25)
[2018-06-05 03:05] LABS: Hematocrit 32.9 % (37-47); Hemoglobin 10.3 g/dl (12.0-15.0); Mean Corp Hgb Conc 31.3 g/gl (32-36); Mean Corpuscular Volume 79.9 fL (81-99); Mean Platelet Vol. 11.8 fl (6.2-12.0); Platelet Count 188 K/mm3 (150-450); RBC Distribution Width CV 15.3 % (11.6-14.6); RBC Distribution Width SD 43.9 fl (35.1-43.9); Red Blood Count 4.12 M/mm3 (4.2-5.4); White Blood Count 9.5 K/mm3 (4.4-11.0)
[2018-06-05 03:09] LABS: International Normalized Ratio 1.3; Partial Thromboplast Time 34.6 Seconds (24.1-36.2); Prothrombin Time (Protime)PT. 16.5 SECONDS (11.7-14.9)
[2018-06-05 03:18] LABS: Scan Indicated on CBC? Y/N NO
[2018-06-05 03:33] LABS: BNP,B-Type NATRIURETIC PEPTIDE 229.5 pg/mL (0-100)
[2018-06-05 03:35] LABS: ALB/GLOB Ratio 0.8 RATIO (0.9-2.4); AST(SGOT) 14 U/L (15-37); Alanine Aminotransfer ALT/SGPT 18 U/L (13-56); Albumin, Serum 2.9 g/dL (3.2-5.0); Alkaline Phosphatase 82 U/L (45-117); Anion Gap 8 (5-15); BUN 20 mg/dL (7-18); BUN/Creat Ratio 17.5 RATIO (10-20); Calcium,Total 8.2 mg/dL (8.5-10.1); Chloride 109 mmol/L (98-107); Cholesterol 118 mg/dL (200); Creatinine, Serum 1.14 mg/dL (0.55-1.02); EST Glomerular Filtration Rate 49 mL/min (>60); Est Glom Filt Rate - Afr Amer 60 mL/min (>60); Estimated Creatinine Clearance 37.39 ml/min; Globulin 3.6 g/dL (2.2-4.2); Glucose 146 mg/dL (74-106); High Density Lipoprotein 31 mg/dL; Potassium 3.8 mmol/L (3.5-5.1); Protein, Total 6.5 g/dL (6.4-8.2); Sodium Level 146 mmol/L (136-145); Thyroid Stim Hormone (TSH) 3.52 uIU/mL (0.358-3.74); Triglycerides 117 mg/dL; Very Low Density Lipoprotein 23 mg/dL (5-40)
--- NOTE | 2018-06-05 05:05 | NURSING ---
Addendum entered by Sarah Cintron 06/05/18 05:44: Dr. Chaney notified. OK to give AM dose keppra now. Original Note: Pt. did not take her Keppra last night prior to admission. She is having one of her seizures where she feels cold, arms tremor, and speech slurs.
[2018-06-05] MEDS: Lisinopril 20 MG Tablet PO (05:17)
[2018-06-05] MEDS: levETIRAcetam 500 MG Tablet PO ×2 (05:17→21:26)
[2018-06-05] MEDS: Aspirin E.C. 81 MG Tablet PO (05:18)
[2018-06-05 07:00] LABS: Bedside Glucose 129 mg/dL (70-110)
--- NOTE | 2018-06-05 07:50 | PCM.PN.HOSP ---
Patient Problems: Active and Suspected Problems Cholelithiasis (Acute) Subjective: Patient was seen and examined. NPO for abdominal ultrasound and stress ECHO. Complains of pain in the left shoulder and upper chest. Denies dizziness, SOB. Admits to repeated falls at home. Lives alone with her 2 kittens. Vitals/I&O's: Vital Signs Temp Pulse Resp BP Pulse Ox 98.0 F 79 20 H 129/70 H 98 06/05/18 05:26 06/05/18 05:26 06/05/18 05:26 06/05/18 05:26 06/05/18 05:26 Oxygen Delivery Method Room Air Weight: 107.8 kg Body Mass Index (BMI) 40.8 Intake and Output for Last 24 Hours 06/03/18 06/04/18 06/05/18 23:59 23:59 23:59 Intake Total 50 / 50 Balance 50 / 50 General: Alert, Oriented x3, Cooperative, No apparent distress HEENT: Atraumatic, PERRLA, EOMI, Normocephalic Oral: Moist Mucosa Neck: Supple Lungs: Clear to auscultation, Normal air movement Cardiovascular: Regular rate, Regular Rhythm, Normal S1, Normal S2, No murmurs Abdomen: Bowel Sounds Present, Soft, Non Tender, Non-Distended, No Hepato-splenomegaly Extremities: No edema Skin: No rashes Musculoskeletal: No Tenderness to Palpation of Joints or Extremities Lymphatic: No Cervical, Supraclavicular, or Inguinal Adenopathy Neurological: Cranial nerves II-XII grossly intact, Neuro grossly intact Psych/Mental Status: Normal Affect, Appropriate Laboratory Results 06/04/18 23:25: Troponin I < 0.015 06/05/18 02:45: B-Natriuretic Peptide 229.5 H 06/05/18 02:45: WBC 9.5, RBC 4.12 L, Hgb 10.3 L, Hct 32.9 L, MCV 79.9 L, MCH 25.0 L, MCHC 31.3 L, RDW 15.3 H, RDW Differential 43.9, Plt Count 188, MPV 11.8 06/05/18 02:45: Sodium 146 H, Potassium 3.8, Chloride 109 H, Carbon Dioxide 29.0, Anion Gap 8, BUN 20 H, Creatinine 1.14 H, Estim Creat Clear Calc 37.39, Est GFR (MDRD) Af Amer 60, Est GFR (MDRD) Non-Af 49 L, BUN/Creatinine Ratio 17.5, Glucose 146 H, Calcium 8.2 L, Total Bilirubin 0.60, AST 14 L, ALT 18, Alkaline Phosphatase 82, Total Protein 6.5, Albumin 2.9 L, Globulin 3.6, Albumin/Globulin Ratio 0.8 L, Triglycerides 117, Cholesterol 118, LDL Cholesterol 64, VLDL Cholesterol 23, HDL Cholesterol 31 L, TSH 3.52 06/05/18 02:45: Troponin I < 0.015 06/05/18 02:45: PT 16.5 H, INR 1.3, APTT 34.6 06/05/18 05:46: POC Glucose 129 H Current Medications Aspirin (Ecotrin) 81 mg PO DAILY@0800 [facility] Last Admin: 06/05/18 05:18 Dose: 81 mg Fluticasone Propionate (Flonase Nasal [place]) 2 spray NASAL DAILY [facility] Furosemide (Lasix) 20 mg PO BIDLX [facility] Insulin Glargine (Lantus (Bk)) 70 units SC DAILY [facility] Insulin Human Lispro (Humalog Kwikpen ([facility])) 24 unit SC TIDCM [facility] Isosorbide Mononitrate (Imdur) 90 mg PO DAILY [facility] Ketorolac Tromethamine (Acular) 1 drop LEFT EYE 4X/DAY [facility] Last Admin: 06/05/18 00:46 Dose: 1 drop Levetiracetam (Keppra Tablet) 500 mg PO BID [facility] Last Admin: 06/05/18 05:17 Dose: 500 mg Lisinopril (Zestril) 20 mg PO DAILY [facility] Last Admin: 06/05/18 05:17 Dose: 20 mg Memantine (Namenda) 10 mg PO BID [facility] Metoprolol Succinate (Toprol Xl (Beta Susy)) 50 mg PO DAILY [facility] Moxifloxacin HCl (Moxeza) 1 drop LEFT EYE 4X/DAY [facility] Last Admin: 06/05/18 00:46 Dose: 1 drop Nitroglycerin (Nitrostat) 0.4 mg SUBLINGUAL Q5M PRN PRN Reason: CHEST PAIN Non-Formulary Medication (Morphine Sulfate/Naltrexone [Embeda Er 20-0.8 Mg Capsule]) 1 tab PO BID PRN PRN Reason: PAIN Nutritional Formula (Lactose Free) (Glucerna Shake) 120 ml PO 4X/DAY [facility] Pantoprazole Sodium (Protonix) 20 mg PO DAILY [facility] Polyethylene Glycol (Miralax) 17 gm PO DAILY [facility] Prasugrel (Effient) 10 mg PO DAILY [facility] Prednisolone Acetate (Pred Forte Eye Drops (1 Ml)) 1 drop LEFT EYE 4X/DAY [facility] Last Admin: 06/05/18 00:38 Dose: 1 drop Rivaroxaban (Xarelto) 15 mg PO DAILYCM [facility] Last Admin: 06/05/18 05:18 Dose: Not Given Simvastatin (Zocor) 40 mg PO QHS [facility] Sodium Chloride () 5 - 30 ml IV UD PRN PRN Reason: SALINE FLUSH Medical Necessity - Tobacco Use Smoking Status: Former smoker Assessment/Plan All Active Problems Cholelithiasis (Acute) UTI (urinary tract infection) (Acute) Pneumococcal pneumonia (Acute) Sepsis (Acute) Hypoglycemia (Acute) Chest pain (Acute) Dehydration (Acute) UTI (urinary tract infection) (Acute) Acute delirium (Acute) Delirium (Acute) Sepsis (Acute) Acute cystitis (Acute) Influenza A (Resolved) The patient is a 72 year old F with history of coronary artery disease status post stents, congestive heart failure with preserved EF 75% as per echo in February 2015, chronic A. fib on Xarelto admitted with chest pain with abdominal pain. 1. Atypical chest pain, h/o CAD s/p stents, troponins x3 are negative, going for stress ECHO today. Continue on aspirin, Prasugrel, metoprolol, lisinopril, Imdur and statin. 2. Abdominal pain, concerning for acute cholelithiasis, abdominal USG pending, general surgery consulted, does not recommend inpatient evaluation, planning for outpatient evaluation. 3. Coronary artery disease status post stents, chronic heart failure with preserved EF, hypertension, stable, no signs of acute exacerbation, continue on Lasix 20 mg twice daily. 4. Diabetes mellitus type 2 with morbid obesity, BS are fairly controlled, HgbA1c is pending. Continue home dose of long-acting insulin and NovoLog insulin. 5. CKD stage III, probably hypertensive and diabetic nephropathy, stable 6. Hyperlipidemia 7. Chronic A. fib, rate controlled, on Xarelto 8. ERIC, not on CPAP 9. DVT prophylaxis: Patient on Xarelto. Code Visit Inpatient E&M: 10920 Subs Hosp L2
--- NOTE | 2018-06-05 09:14 | CASEMGMT ---
MINAL reviewed chart and noted patient has Passport. MINAL called [facility] and spoke with Moreno Zarate. Patient's caser in is Sakshi Banda and her phone number is [phone] and fax number for d/c instructions is [phone]. She has an emergency response button. She has [facility] aides. Friday and for 2 hours each day for personal care. M,W, and F homemaker services for 2 hours each day. MINAL told him she will be in [facility] until at least Friday. Tonja SAVAGE ROUTE AGENT
--- NOTE | 2018-06-05 10:02 | CASEMGMT ---
SW met with patient, introduced self as well as role at [facility]. Patient lives alone. She has been trying to get a bedside commode, but her insurance will not pay for it. MINAL told her SW can leave a message for her counseling case manager. She is a bit frustrated with her daughter as she is taking over. She does not feel she will need anything additional at home at d/c. Plan: Home with resumption of Passport services. Tonja SAVAGE MSW
--- NOTE | 2018-06-05 10:10 | CASEMGMT ---
SW left a voice mail for patient's machine adjuster leader case trim about patient wanting a bedside commode. Green sheet on chart with instructions for d/c. Plan: Home with resumption of Passport services. Tonja ROJAS
[2018-06-05] MEDS: Fluticasone 0.05% 1 SPRAY NASAL.SRY 2 SPRAY NASAL (10:19)
--- NOTE | 2018-06-05 10:27 | PCM.CONS.GEN ---
Problem List (1) Cholelithiasis Status: Acute Qualifiers: Cholelithiasis location: gallbladder Cholecystitis presence: without cholecystitis Biliary obstruction: without biliary obstruction Qualified Code(s): K80.20 - Calculus of gallbladder without cholecystitis without obstruction Reason for Consult Date of Consultation: 06/05/18 History of Present Illness: The patient is a 72 year old F with history of coronary artery disease status post stents, congestive heart failure with preserved EF 75% as per echo in February 2015, chronic Pepper. paras on Xarelto came to ER after she had chest pain with progressed abdominal pain. Chest pain was midsternal, brought by walking from porch to the living room associated with shortness of breath and radiation to pain to abdomen and epigastric region. She further said her pain moved to the left side of her abdomen. She is not a good historian and complain of pain all over right side of back, lumbosacral spine seems to be more chronic in nature. She also has compromised functional capacity and gets easily short of breath on climbing stairs and walking. Her leather scrubber is Dr. Diaz. She had cardiac stents done in [facility]. As per the last echo in February 2015 EF 75% with no regional wall motion abnormality. Mild aortic stenosis. Normal RV size systolic function. LA moderately enlarged. Normal right atrium Her CAT scan of the abdomen show cholelithiasis but this is not a new finding and was actually here on previous CAT scans in the past. In questioning the patient is really difficult to understand if she is having symptomatic biliary colic or not. She complains of pain all over her abdomen most severe in the epigastric and left upper quadrant area he also complains of at times when she is eating she feels nauseated. Past Medical History Past Medical History (Chronic Problems): Chronic Problems Migraine (Chronic) Hyperlipidemia (Chronic) Hypertension (Chronic) Benign essential hypertension (Chronic) CAD (coronary artery disease) (Chronic) Chronic CHF (Chronic) Chronic constipation (Chronic) Type II diabetes mellitus (Chronic) Morbid obesity (Chronic) Osteoarthritis (Chronic) Spondylosis (Chronic) History of urinary incontinence (Chronic) Chronic back pain (Chronic) Sleep apnea (Chronic) CKD (chronic kidney disease) stage 3, GFR 30-59 ml/min (Chronic) Allergies atorvastatin calcium [From Lipitor] Allergy (Verified 06/04/18 19:26) dont remember codeine Allergy (Verified 06/04/18 19:26) Rash iodine Allergy (Verified 06/04/18 19:26) Rash Latex, Natural Rubber Allergy (Verified 06/04/18 19:26) Rash lovastatin Allergy (Verified 06/04/18 19:26) Rash rosuvastatin calcium [From Crestor] Allergy (Verified 06/04/18 19:26) rash\ naproxen [From Naprosyn] Adverse Reaction (Verified 06/04/18 19:26) Upset Stomach pregabalin [From Lyrica] Adverse Reaction (Verified 06/04/18 19:26) Upset Stomach Sulfa (Sulfonamide Antibiotics) Adverse Reaction (Verified 06/04/18 19:26) Upset Stomach Home Medications: Ambulatory Orders Medication Instructions Recorded Isosorbide Mononitrate [Imdur] 90 mg PO DAILY #90 tablet 06/21/16 Insulin Aspart [Novolog Flexpen] 24 units SC TIDCM 03/12/17 Insulin Degludec [Tresiba 70 unit SQ DAILY 10/11/17 Flextouch U-100] Metoprolol Succinate [Toprol Xl] 50 mg PO DAILY 10/11/17 Morphine Sulfate/Naltrexone 1 tab PO BID PRN 10/11/17 [Embeda ER 20-0.8 mg Capsule] levETIRAcetam tablet [Keppra 500 mg PO BID 10/11/17 tablet] Fluticasone 0.05% [Flonase Nasal 2 sprays NASAL DAILY 04/27/18 Stuart] Furosemide [Lasix] 20 mg PO BID 04/27/18 Lisinopril [Zestril] 20 mg PO DAILY 04/27/18 Omeprazole [Omeprazole] 20 mg PO DAILY 04/27/18 Polyethylene Glycol 3350 [Miralax] 17 gm PO DAILY 04/27/18 Memantine HCl [Namenda] 10 mg PO BID 05/10/18 Ketorolac Tromethamine [Acular] 1 drop OP 4X/DAY 06/04/18 Moxifloxacin HCl [Moxifloxacin] 1 drop LEFT EYE 4X/DAY 06/04/18 Prasugrel HCl 10 mg PO DAILY 06/04/18 Prednisolone Acetate [Prednisolone 1 drop LEFT EYE 4X/DAY 06/04/18 Acetate] Rivaroxaban [Xarelto] 15 mg PO DAILY 06/04/18 Simvastatin [Zocor] 40 mg PO QHS 06/04/18 Surgical History: hysterectomy, - - Placement of 2 coronary artery stents; Thyroidectomy for goiter. Psychiatric History: No pertinent psych hx BIT SETTER History: No pertinent BIT SETTER history Smoking Status: Former smoker - *Family History Maternal History Items: - - History of alcoholic cirrhosis Paternal History Items: Cancer - Her father had colon cancer. Sibling History Items: Cancer - Her sister had ovarian cancer., Hypertension Review of Systems Constitutional: Reports: Anorexia - There are time she is able to eat in other times that she has nausea Gastrointestinal: Reports: Abdominal Pain. Denies: Hematemesis, Hematochezia Musculoskeletal: Reports: - - Patient complains about back pain and lumbosacral pain as well. Patient Problems: Active and Suspected Problems Cholelithiasis (Acute) - Physical Exam General: Alert, No apparent distress Lungs: Clear to auscultation Cardiovascular: Regular rate, Regular Rhythm, No murmurs Abdomen: Soft - She complains of pain throughout her abdomen but there is no rebound guarding or peritoneal signs identified. Jorde of her pain is in the left upper quadrant to palpation Vital Signs Temp Pulse Resp BP Pulse Ox 98.0 F 75 20 H 129/70 H 98 06/05/18 05:26 06/05/18 07:15 06/05/18 05:26 06/05/18 05:26 06/05/18 05:26 Oxygen Delivery Method Room Air Weight: 237 lb 10.533 oz Body Mass Index (BMI) 40.8 Intake and Output for Last 24 Hours 06/03/18 06/04/18 06/05/18 23:59 23:59 23:59 Intake Total 50 / 50 Balance 50 / 50 Laboratory Tests Past 24 Hrs 06/04/18 06/05/18 06/05/18 23:25 02:45 02:45 WBC 9.5 RBC 4.12 L Hgb 10.3 L Hct 32.9 L MCV 79.9 L MCH 25.0 L MCHC 31.3 L RDW 15.3 H RDW Differential 43.9 Plt Count 188 MPV 11.8 PT INR APTT Sodium Potassium Chloride Carbon Dioxide Anion Gap BUN Creatinine Estim Creat Clear Calc Est GFR (MDRD) Af Amer Est GFR (MDRD) Non-Af BUN/Creatinine Ratio Glucose Calcium Total Bilirubin AST ALT Alkaline Phosphatase Troponin I < 0.015 B-Natriuretic Peptide 229.5 H Total Protein Albumin Globulin Albumin/Globulin Ratio Triglycerides Cholesterol LDL Cholesterol VLDL Cholesterol HDL Cholesterol TSH 06/05/18 06/05/18 06/05/18 02:45 02:45 02:45 WBC RBC Hgb Hct MCV MCH MCHC RDW RDW Differential Plt Count MPV PT 16.5 H INR 1.3 APTT 34.6 Sodium 146 H Potassium 3.8 Chloride 109 H Carbon Dioxide 29.0 Anion Gap 8 BUN 20 H Creatinine 1.14 H Estim Creat Clear Calc 37.39 Est GFR (MDRD) Af Amer 60 Est GFR (MDRD) Non-Af 49 L BUN/Creatinine Ratio 17.5 Glucose 146 H Calcium 8.2 L Total Bilirubin 0.60 AST 14 L ALT 18 Alkaline Phosphatase 82 Troponin I < 0.015 B-Natriuretic Peptide Total Protein 6.5 Albumin 2.9 L Globulin 3.6 Albumin/Globulin Ratio 0.8 L Triglycerides 117 Cholesterol 118 LDL Cholesterol 64 VLDL Cholesterol 23 HDL Cholesterol 31 L TSH 3.52 POC Glucose 06/05/18 05:46 POC Glucose 129 H Assessment/Plan All Active Problems Cholelithiasis (Acute) UTI (urinary tract infection) (Acute) Pneumococcal pneumonia (Acute) Sepsis (Acute) Hypoglycemia (Acute) Chest pain (Acute) Dehydration (Acute) UTI (urinary tract infection) (Acute) Acute delirium (Acute) Delirium (Acute) Sepsis (Acute) Acute cystitis (Acute) Influenza A (Resolved) I do not believe the patient is having acute cholecystitis. I will see her as an outpatient in the office to evaluate her to see if removal of her gallbladder would be appropriate or not. For this admission I do not think surgery is warranted.
[2018-06-05] MEDS: Acetaminophen 500 MG Tablet 1000 MG PO ×2 (11:55→15:45)
[2018-06-05 12:06] LABS: Bedside Glucose 179 mg/dL (70-110)
--- NOTE | 2018-06-05 13:24 | CASEMGMT ---
SW spoke with Physical Therapist and she felt patient would be fine for home. Tonja SAVAGE MSW
[2018-06-05] MEDS: oxyCODONE 5 MG Tablet PO ×2 (15:41→22:10)
[2018-06-05] MEDS: Polyethylene Glycol 3350 17 GM PACKET PO (15:42)
[2018-06-05] MEDS: Isosorbide Mononitrate 30 MG Tablet 90 MG PO (15:43)
[2018-06-05] MEDS: Furosemide 20 MG Tablet PO (15:43)
[2018-06-05] MEDS: Memantine Hydrochloride 10 MG Tablet PO ×2 (15:44→21:27)
[2018-06-05] MEDS: Metoprolol(XL)Succ 50 MG Tablet PO (15:44)
[2018-06-05] MEDS: Pantoprazole Sodium 20 MG Tablet PO (15:45)
[2018-06-05] MEDS: Glucerna Shake 120 ML LIQUID PO (17:54)
[2018-06-05 17:56] LABS: Bedside Glucose 120 mg/dL (70-110)
[2018-06-05 22:10] LABS: Bedside Glucose 287 mg/dL (70-110)
[2018-06-06 02:43] VITALS: BP 151/75; PULSE 70; RESP 20; TEMP 36.6; O2SAT 97
[2018-06-06] MEDS: Morphine 2 MG/ML Syringe 1 MG IV (02:44)
[2018-06-06] MEDS: 0.9% NaCl Peripheral Flush Adult/Peds IV (02:44)
[2018-06-06 03:49] VITALS: PULSE 71
[2018-06-06] MEDS: Acetaminophen 500 MG Tablet 1000 MG PO (06:59)
[2018-06-06 07:10] LABS: Bedside Glucose 264 mg/dL (70-110)
[2018-06-06 07:40] VITALS: PULSE 63
[2018-06-06] MEDS: Aspirin E.C. 81 MG Tablet PO (08:11)
[2018-06-06] MEDS: Rivaroxaban 15 MG Tablet PO (08:12)
[2018-06-06] MEDS: Fluticasone 0.05% 1 SPRAY NASAL.SRY 2 SPRAY NASAL (08:13)
[2018-06-06] MEDS: Isosorbide Mononitrate 30 MG Tablet 90 MG PO (08:14)
[2018-06-06] MEDS: Glucerna Shake 120 ML LIQUID PO (08:14)
[2018-06-06] MEDS: levETIRAcetam 500 MG Tablet PO (08:14)
[2018-06-06] MEDS: Polyethylene Glycol 3350 17 GM PACKET PO (08:16)
[2018-06-06] MEDS: Furosemide 20 MG Tablet PO (08:16)
[2018-06-06] MEDS: Memantine Hydrochloride 10 MG Tablet PO (08:17)
[2018-06-06] MEDS: Pantoprazole Sodium 20 MG Tablet PO (08:17)
[2018-06-06] MEDS: prednisoLONE eye drops (1 mL) 1 DROP OPTH.BTL 1 DRP LEFT EYE (08:17)
[2018-06-06 08:18] VITALS: PULSE 71
[2018-06-06] MEDS: Metoprolol(XL)Succ 50 MG Tablet PO (08:18)
[2018-06-06] MEDS: Lisinopril 20 MG Tablet PO (08:23)
[2018-06-06] MEDS: Insulin Lispro 100 UNIT/ML INSULN.PEN 24 UNIT SC ×2 (08:23→11:23)
[2018-06-06 08:36] VITALS: BP 151/78; PULSE 74; RESP 16; TEMP 36.7; O2SAT 96
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
[2018-06-06 11:16] LABS: Bedside Glucose 240 mg/dL (70-110)
--- NOTE | 2018-06-06 11:33 | PCM.DC ---
- Discharge Diagnoses Current Active Problems: Current Active and Chronic Problems Cholelithiasis (Acute) Reason(s) for Visit for Discharge Instructions: Left arm pain, chest pain, abdominal pain You will use the following diet at home:: Calorie/Carbohydrate Controlled (specify 1200, 1400, etc), Cardiac Your food should be the consistency of: Regular Your liquids should be the consistency of: Regular/Thin Discharge Activity: Return to Normal Activity Additional Instructions: Continue to keep your left upper extremity in sling. You should follow-up with Dr. Cavazos and Dr. Hammond. You will be followed at home by Home health care. You should continue to monitor your blood sugar closely. You may need to back off some of your insulin if needed, if your blood sugar keeps dropping. Allergies/Adverse Reactions: Allergies atorvastatin calcium [From Lipitor] Allergy (Verified 06/04/18 19:26) dont remember codeine Allergy (Verified 06/04/18 19:26) Rash iodine Allergy (Verified 06/04/18 19:26) Rash Latex, Natural Rubber Allergy (Verified 06/04/18 19:26) Rash lovastatin Allergy (Verified 06/04/18 19:26) Rash rosuvastatin calcium [From Crestor] Allergy (Verified 06/04/18 19:26) rash\ naproxen [From Naprosyn] Adverse Reaction (Verified 06/04/18 19:26) Upset Stomach pregabalin [From Lyrica] Adverse Reaction (Verified 06/04/18 19:26) Upset Stomach Sulfa (Sulfonamide Antibiotics) Adverse Reaction (Verified 06/04/18 19:26) Upset Stomach Medications to take at Discharge Isosorbide Mononitrate [Imdur] 90 mg PO DAILY #90 tablet 06/21/16 Insulin Aspart [Novolog Flexpen] 24 units SC TIDCM 03/12/17 Insulin Degludec [Tresiba Flextouch U-100] 70 unit SQ DAILY 10/11/17 Metoprolol Succinate [Toprol Xl] 50 mg PO DAILY 10/11/17 Morphine Sulfate/Naltrexone [Embeda ER 20-0.8 mg Capsule] 1 tab PO BID PRN 10/11/17 levETIRAcetam tablet [Keppra tablet] 500 mg PO BID 10/11/17 Fluticasone 0.05% [Flonase Nasal [place]] 2 sprays NASAL DAILY 04/27/18 Furosemide [Lasix] 20 mg PO BID 04/27/18 Lisinopril [Zestril] 20 mg PO DAILY 04/27/18 Omeprazole 20 mg PO DAILY 04/27/18 Polyethylene Glycol 3350 [Miralax] 17 gm PO DAILY 04/27/18 Memantine HCl [Namenda] 10 mg PO BID 05/10/18 Ketorolac Tromethamine [Acular] 1 drop OP 4X/DAY 06/04/18 Prasugrel HCl 10 mg PO DAILY 06/04/18 Prednisolone Acetate 1 drop LEFT EYE 4X/DAY 06/04/18 Rivaroxaban [Xarelto] 15 mg PO DAILY 06/04/18 Simvastatin [Zocor] 40 mg PO QHS 06/04/18 Acetaminophen [Tylenol] 1,000 mg PO Q8 tablet 06/06/18 Primary Care Physician: Emerita Gottlieb MD [Primary Care Provider] - Please follow up with your Primary Care Physician in: within 2 weeks of discharge Test Results: Test results from this visit will be discussed in further detail at your follow-up appointment, if applicable. Please Follow Up With: Faustino Cavazos MD When: in 1-2 weeks Please Follow Up With: Andrea Hammond DO When: in 2 weeks Proposed Discharge Date: 06/06/18
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
--- NOTE | 2018-06-06 12:29 | CASEMGMT ---
Addendum entered by Edith Norman 06/06/18 13:13: Social Work Note Pt agreeable to palliative care consult. Faxed referral to [facility]. BOB Art, CARDIOLOGY TECHNICIAN Original Note: Social Work Note Met with pt to discuss SNF placement per physician's request d/t to PT/OT concerns relayed to physician regarding her ability to use walker with a humerus fracture and left arm in a sling. Face to face with pt who is A&Ox4. Presents with pleasant affect as evidenced by smiling and willingness to participate in assessment. Review discharge plan and pt confirms she is returning home. Discuss with her the assistance she required with therapy and there concerns with her using a walker while her arm is in a sling. The pt points to the sling on her hospital bed stating, that's where it is going to be at my house too. Then states that she has had this humerus fracture for 3-4 weeks approximately and has been using the walker. States she is not going to a SNF. Discuss what a SNF would entail and receiving therapy daily before she returns home and pt continues to decline. Pt then begins to cry and states that she is nearly 73, and I know my time is coming. I just want to go home. Emotional support provided and informed pt that SW would notify physician that she plans to return home and has voiced that she can manage and that her home has been arranged for her to succeed within it. Pt denies further needs and thanks SW. Notified pt's physician via core text of discharge plan. Anticipate discharge this date. Plan: Follow green sheet for discharge home with resumption of PASSPORT services. BOB Art, CARDIOLOGY TECHNICIAN
[2018-06-06 12:46] LABS: Hemoglobin A1c 9.5 % (4.2-6.3)
--- NOTE | 2018-06-09 11:49 | CASEMGMT ---
SW received a call from Ivy at [facility]. She said Dr Gottlieb, patient's PCP declined Palliative care for patient. She feels patient would be [place] served [place] a [place] [facility] [place]. However, [place] [facility] [place]. Tonja ROJAS
== END 2018-06-06 11:36 | disposition home health service (06) ==
LOC: ED 21:16 → PCU 22:20
PROVIDERS: Admitting Provider Internal Medicine; Emergency Provider Emergency Medicine; Family Provider Internal Medicine; PCP Internal Medicine; Visit Provider Internal Medicine
DX: K80.20 Calculus of gallbladder without cholecystitis without obstruction (principal); E78.5 Hyperlipidemia, unspecified; M19.90 Unspecified osteoarthritis, unspecified site; E11.22 Type 2 diabetes mellitus with diabetic chronic kidney disease; I25.10 Atherosclerotic heart disease of native coronary artery without angina pectoris; E66.01 Morbid (severe) obesity due to excess calories; I13.0 Hypertensive heart and chronic kidney disease with heart failure and stage 1 through stage 4 chronic kidney disease, or unspecified chronic kidney disease; N18.3 Chronic kidney disease, stage 3 (moderate); Z79.899 Other long term (current) drug therapy; Z79.4 Long term (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 of insulin; Z79.01 Long term (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 of anticoagulants; Z79.52 Long term (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 of systemic steroids; Z68.41 Body mass index [BMI] 40.0-44.9, adult; Z71.3 Dietary counseling and surveillance; I50.32 Chronic diastolic (congestive) heart failure; Z95.5 Presence of coronary angioplasty implant and graft; Z86.73 Personal history of transient ischemic attack (TIA), and cerebral infarction without residual deficits; R06.02 Shortness of breath; I45.10 Unspecified right bundle-branch block; I48.2 Chronic atrial fibrillation; G47.33 Obstructive sleep apnea (adult) (pediatric); Z87.891 Personal history of nicotine dependence; S42.214A Unspecified nondisplaced fracture of surgical neck of right humerus, initial encounter for closed fracture; W19.XXXA Unspecified fall, initial encounter; R29.6 Repeated falls
CPT/HCPCS: 36415; 71045; 73030; 74176; 76705; 80048; 80053; 80061; 80076; 81001; 82962; 83036; 83690; 83880; 84443; 84484; 85025; 85027; 85610; 85730; 87086; 87088; 93005; 93017; 93350; 96374; 97110; 97116; 97162; 97166; 97530; 97802; 99218; 99285; Q9957; A4216; C8928; G0378; J2785

== ENCOUNTER → 2018-07-24 20:24 | Outpatient (CLI) | payer MEDICARE, SELFPAY | PROVIDERS: Family Provider Internal Medicine; PCP Internal Medicine; Visit Provider Nurse Practitioner Acute Care | DX: G47.33 Obstructive sleep apnea (adult) (pediatric) (principal) | CPT/HCPCS: 95811 ==

== ENCOUNTER 2018-08-24 10:52 | Emergency (ER) | payer MEDICARE, SELFPAY ==
[2018-08-24 10:54] VITALS: BP 176/86; PULSE 68; PULSE 70; RESP 14; TEMP 36.6; O2SAT 98; BMI 45.7
--- NOTE | 2018-08-24 11:07 | ED.VISSUMM ---
- ER Visit Summary Date of Service: 08/24/18 Chief Complaint: Cat scratch left forearm History of Present Illness: The patient is a 73 F presenting with cat scratch to left forearm. Patient states this happened at 4 AM. She has 2 kittens that were climbing on her. Her left forearm was scratched 3 times. She had no bites. Her home health aide was concerned about continued oozing. She denies other complaints. Physical Examination: Vitals are stable. Patient is afebrile. Alert no acute distress. HEENT exam is unremarkable. Neck is supple. Lungs are clear and equal bilaterally. Heart is regular rate and rhythm. Abdomen is soft nontender nondistended. Extremities left forearm 3 linear scratches, neurovascular intact distally. No erythema, warmth or signs of infection. Skin is warm and dry. No focal neurologic deficit. Remainder of exam is unremarkable. Emergency Department Course and Treatment: Patient is given tetanus IM. Wound is irrigated and dressed. She is given Augmentin. CBC shows hemoglobin 10.6 at her baseline. Chemistries are normal except for creatinine 1.2 which is at her baseline. Patient is advised to watch for signs of infection. Advised to follow with her primary care physician. She is given a prescription for Augmentin. Advised return ED if worsening complaints. Disposition: Discharge home Impression: Cat scratch left forearm This note was generated with [employer] dictation software. It may contain incorrect words, spelling, and punctuation that were not noted in review of the chart prior to signing ED Disposition - Plan for ED Patient: Chief Complaint: Laceration Instructions: Animal Bites and Scratches Prescriptions: Amox/Clavulanate Tablet [Augmentin Tablet] 875 mg PO Q12H #20 tablet Referrals: Emerita Gottlieb MD [Primary Care Provider] -
[2018-08-24 11:38] LABS: Absolute Lymphocyte Count 1.82 X10^3/ul (0.83-4.51); Absolute Neutrophil Count 6.4 X10^3/uL (2.0-7.7); Basophil# 0.02 X10^3/uL; Basophil% 0.2 % (0-1); Eosinophil# 0.19 X10^3/uL; Eosinophils% 2.1 % (0-5); Hematocrit 33.8 % (37-47); Hemoglobin 10.6 g/dl (12.0-15.0); Lymphocyte # 1.82 X10^3/ul (4.0); Lymphocyte % 20.1 % (19-41); Mean Corp Hgb Conc 31.4 g/gl (32-36); Mean Corpuscular Hgb 24.6 pg (27.0-32.0); Mean Corpuscular Volume 78.4 fL (81-99); Monocyte# 0.59 X10^3/uL; Monocyte% 6.5 % (0-10); Neutrophil # 6.41 X10^3/uL (2.7-7.7); Neutrophil % 70.9 % (47-70); Platelet Count 218 K/mm3 (150-450); RBC Distribution Width CV 15.4 % (11.6-14.6); RBC Distribution Width SD 43.3 fl (35.1-43.9); Red Blood Count 4.31 M/mm3 (4.2-5.4); White Blood Count 9.1 K/mm3 (4.4-11.0)
[2018-08-24 11:39] LABS: POSITIVE COUNT NO; POSITIVE DIFFERENTIAL NO; POSITIVE MORPHOLOGY NO
[2018-08-24] MEDS: Diphth,Pertuss(Acell),Tet Vac 0.5 ML Vial IM (11:42)
[2018-08-24] MEDS: Amox/Clavulanate 875 MG Tablet PO (11:44)
[2018-08-24 11:52] LABS: Anion Gap 10 (5-15); BUN 18 mg/dL (7-18); Calcium,Total 8.6 mg/dL (8.5-10.1); Chloride 105 mmol/L (98-107); EST Glomerular Filtration Rate 47 mL/min (>60); Est Glom Filt Rate - Afr Amer 56 mL/min (>60); Estimated Creatinine Clearance 33.51 ml/min; Glucose 103 mg/dL (74-106); Potassium 4.1 mmol/L (3.5-5.1); Sodium Level 144 mmol/L (136-145)
--- NOTE | 2018-08-24 12:11 | ED.DEP ---
ED Disposition - Plan for ED Patient: Chief Complaint: Laceration Instructions: Animal Bites and Scratches Prescriptions: Amox/Clavulanate Tablet [Augmentin Tablet] 875 mg PO Q12H #20 tablet Referrals: Emerita Gottlieb MD [Primary Care Provider] -
[2018-08-24 12:47] VITALS: BP 154/76; PULSE 76; RESP 17; O2SAT 97
== END 2018-08-24 13:05 | disposition home or self-care (01) ==
LOC: ED 11:16
PROVIDERS: Emergency Provider Emergency Medicine; Family Provider Internal Medicine; PCP Internal Medicine
DX: S50.812A Abrasion of left forearm, initial encounter (principal); Z23 Encounter for immunization; G47.33 Obstructive sleep apnea (adult) (pediatric); W55.03XA Scratched by cat, initial encounter; Y93.89 Activity, other specified; Y92.009 Unspecified place in unspecified non-institutional (private) residence as the place of occurrence of the external cause; Y99.8 Other external cause status
CPT/HCPCS: 80048; 85025; 90715; 99285

== ENCOUNTER 2018-11-18 09:19 | Observation (INO) | payer MEDICARE, SELFPAY ==
[2018-11-18] VITALS (8 sets, daily range): BP systolic 96–159; BP diastolic 57–94; PULSE 71–87; RESP 14–18; TEMP 36.4–37; O2SAT 93–99; BMI 40.4; BMI 39.1
--- NOTE | 2018-11-18 09:34 | CT_ITS ---
STUDY: CT BRAIN WITHOUT CONTRAST REASON FOR EXAM: Female, 73 years old. One-week history of confusion. RADIATION DOSAGE (If Supplied By Facility): CTDIvol = ( 44.99 ) mGy, DLP = ( 829.85 ) mGycm TECHNIQUE: Transaxial CT imaging of the brain was performed without administration of intravenous contrast material. Individualized dose optimization techniques were used for this CT. COMPARISON: Comparison is made with prior study dated May 27, 2018. FINDINGS: Normal soft tissue structures. There is hyperostosis frontalis internus. There is mild cerebral atrophy with widening of the extra-axial spaces and ventricular dilatation. There are areas of decreased attenuation within the white matter tracts of the supratentorial brain, consistent with microvascular disease changes. Stable 2.3 cm x 1.6 cm arachnoid cyst along the anterior aspect of the left temporal lobe. Normal basal ganglia and thalami. Normal brainstem. Normal cerebellum. There is no intracranial hemorrhage. There are no findings of an acute ischemic infarction. Atherosclerotic calcification of the vertebral arteries and cavernous portions of the internal carotid arteries bilaterally. Normal visualized paranasal sinuses. CT/Brain/Head without Contrast IMPRESSION: Chronic involutional changes of the brain. Stable 2.3 cm x 1.6 cm arachnoid cyst along the anterior aspect of the left temporal lobe Electronically Signed: Santiago Kwok MD at 10:52 EST , Service support ,
--- NOTE | 2018-11-18 09:34 | RAD_ITS ---
STUDY: X-RAY CHEST REASON FOR EXAM: Female, 73 years old. Confusion. TECHNIQUE: Single AP portable view of the chest. COMPARISON: Comparison is made with prior study June 04, 2018. FINDINGS: EKG electrodes are seen. Mild increased linear markings in the left midlung suggestive of linear scarring. There is no demonstrated pleural abnormality. There is borderline cardiomegaly. A left-sided unipolar pacemaker is seen. A loop recorder device is seen overlying the left lower hemithorax. Normal mediastinum and susan. Normal visualized pulmonary arteries. There is atherosclerotic calcification of the aortic arch with tortuosity. There are diffuse degenerative changes of the visualized thoracic spine. There is degenerative osteoarthritis of the bilateral shoulders. There is no demonstrated abnormality of the visualized soft tissue structures of the upper abdomen. RAD/Chest 1 View (Portable) IMPRESSION: Findings suggestive of linear scarring in the left midlung. There has been no change. Electronically Signed: Santiago Kwok MD at 10:08 EST , Service support ,
--- NOTE | 2018-11-18 09:35 | EKG12_ITS ---
Test Reason : CONFUSION Blood Pressure : / mmHG Vent. Rate : 081 BPM Atrial Rate : 078 BPM P-R Int : 000 ms QRS Dur : 136 ms QT Int : 410 ms P-R-T Axes : 000 -15 008 degrees QTc Int : 476 ms Atrial fibrillation Right bundle branch block Abnormal ECG Confirmed by TAM GALINDO, LORRAINE ([id number]), editorial writer NICHELLE RUIZ ([id number]) on 11/23/2018 9:47:37 AM Referred By: JOEL Confirmed By:LORRAINE TURCIOS MD
--- NOTE | 2018-11-18 09:38 | ED.VISSUMM ---
- ER Visit Summary Date of Service: 11/18/18 Chief Complaint: Generalized weakness History of Present Illness: The patient is a 73 F presenting from home where she lives alone with generalized weakness and confusion. History is somewhat limited secondary to her confusion but apparently family felt that she was somewhat confused for the past few days when they spoke with her and they were unable to get in contact with her this morning so called for a well check. On EMS arrival, she was alert and oriented x1 only and she is typically alert and oriented x3. She herself has no specific complaints other than chronic left knee pain and feeling tired. She denies cough or shortness of breath. Denies recent falls or head trauma. Denies fever or chills. Physical Examination: Vital signs are within normal limits. She is not in distress. Neck is supple. Heart tones are regular and without murmur. Lungs are clear bilaterally. Abdomen is soft and nontender. No focal or lateralizing neuro findings. She is alert and oriented x1 only. Her left knee has mild tenderness but there is no erythema or warmth. Strong pulses in all extremities. Test Results: CBC and chemistries within normal limits. Troponin negative. Lactic acid normal. Flu swab negative. Chest x-ray negative. CT brain negative. Urinalysis reveals a few white cells and 1+ bacteria but I am not convinced that it reveals an infection. Emergency Department Course and Treatment: Her medical screening workup here is fairly unremarkable. I am not finding any obvious cause for her acute delirium. It sounds like this is been present for several days. I do not think it represents an acute stroke. Her only real complaint is mild dysuria. Her urine appears questionably infected but I am not convinced that it is consistent with a UTI. I discussed the findings with the admitting physician and we elected to hold off on antibiotics until the culture comes back. No obvious cause for her acute weakness but she is unable to get out of bed and ambulate and has been quite confused, much different from baseline when I interviewed her family separately. I do therefore feel that she should be admitted for observation and further testing and a do not feel she can safely be discharged home. Treatment Plan: Admit medically Disposition: Full admission Impression: Initial encounter acute weakness of uncertain cause, initial encounter acute delirium This note was generated with [employer] dictation software. It may contain incorrect words, spelling, and punctuation that were not noted in review of the chart prior to signing ED Disposition - Plan for ED Patient: Referrals: Emerita Gottlieb MD [Primary Care Provider] -
[2018-11-18 10:23] LABS: Absolute Lymphocyte Count 1.46 X10^3/ul (0.83-4.51); Absolute Neutrophil Count 6.1 X10^3/uL (2.0-7.7); Basophil# 0.02 X10^3/uL; Basophil% 0.2 % (0-1); Eosinophil# 0.17 X10^3/uL; Eosinophils% 2.1 % (0-5); Hematocrit 40.4 % (37-47); Hemoglobin 12.6 g/dl (12.0-15.0); Lymphocyte # 1.46 X10^3/ul (4.0); Lymphocyte % 17.6 % (19-41); Mean Corp Hgb Conc 31.2 g/gl (32-36); Mean Corpuscular Hgb 23.4 pg (27.0-32.0); Monocyte# 0.54 X10^3/uL; Monocyte% 6.5 % (0-10); Neutrophil # 6.09 X10^3/uL (2.7-7.7); Neutrophil % 73.5 % (47-70); Platelet Count 191 K/mm3 (150-450); RBC Distribution Width CV 15.9 % (11.6-14.6); RBC Distribution Width SD 43.3 fl (35.1-43.9); Red Blood Count 5.39 M/mm3 (4.2-5.4); White Blood Count 8.3 K/mm3 (4.4-11.0)
[2018-11-18 10:30] LABS: ALB/GLOB Ratio 0.7 RATIO (0.9-2.4); AST(SGOT) 15 U/L (15-37); Alanine Aminotransfer ALT/SGPT 18 U/L (13-56); Albumin, Serum 3.2 g/dL (3.2-5.0); Alkaline Phosphatase 94 U/L (45-117); Anion Gap 5 (5-15); BUN 20 mg/dL (7-18); BUN/Creat Ratio 16.4 RATIO (10-20); Calcium,Total 8.8 mg/dL (8.5-10.1); Chloride 103 mmol/L (98-107); Creatinine, Serum 1.22 mg/dL (0.55-1.02); EST Glomerular Filtration Rate 46 mL/min (>60); Est Glom Filt Rate - Afr Amer 55 mL/min (>60); Estimated Creatinine Clearance 34.41 ml/min; Globulin 4.6 g/dL (2.2-4.2); Glucose 278 mg/dL (74-106); Potassium 4.4 mmol/L (3.5-5.1); Protein, Total 7.8 g/dL (6.4-8.2); Sodium Level 137 mmol/L (136-145)
[2018-11-18 11:19] LABS: Mucous, Urine 0 SEEN /hpf (<or=2+)
[2018-11-18 11:22] LABS: Differential Indicated SCAN CRITERIA MET; POSITIVE COUNT NO; POSITIVE DIFFERENTIAL NO; POSITIVE MORPHOLOGY YES
[2018-11-18 11:27] LABS: Color, Urine Yellow (Yellow); Glucose, Dipstick 1000 mg/dl (Normal); Ketone-Dipstick 5 mg/dl (Negative); Leukocyte Esterase-Dipstick 100 /ul (Negative); Nitrite-Dipstick Negative (Negative); Occult Blood-Urine 10 /ul (Negative); Protein-Dipstick 30 mg/dl (Negative); Specific Gravity, Urine 1.015 (1.002-1.030); Urine Bilirubin Dipstick Negative (Negative); Urine Clarity Clear (Clear); Urine Urobilinogen Normal (Normal); Urine pH 6.5 (5.0 - 8.0)
[2018-11-18 11:31] LABS: Bacteria 1+ /hpf (None Seen); Red Blood Cells-Urine 0-5 SEEN /hpf (0-5); Squamous Epithelial Cells - UA 0-5 SEEN /hpf (5-10); White Blood Cells 25-50 SEEN /hpf (0-5)
--- NOTE | 2018-11-18 13:28 | PCM.HP.STD ---
Problem List (1) Delirium Status: Acute History of Present Illness Date of Admission: 11/18/18 Chief Complaint: confusion The patient is a 73 year old F who has been noted to be confused by family over the past few days. EMS was contacted to get the patient out of the house. Patient was initially only alert to self but suddenly has become alert and oriented x3 though does take time to tell us what her orientation is. Patient denies any issues has been more confused and over the past few days. Patient not able to provide any further information. [] Past Medical History Past Medical History (Chronic Problems): Chronic Problems Migraine (Chronic) Hyperlipidemia (Chronic) Hypertension (Chronic) Benign essential hypertension (Chronic) CAD (coronary artery disease) (Chronic) Chronic CHF (Chronic) Chronic constipation (Chronic) Type II diabetes mellitus (Chronic) Morbid obesity (Chronic) Osteoarthritis (Chronic) Spondylosis (Chronic) History of urinary incontinence (Chronic) Chronic back pain (Chronic) Sleep apnea (Chronic) CKD (chronic kidney disease) stage 3, GFR 30-59 ml/min (Chronic) Allergies atorvastatin calcium [From Lipitor] Allergy (Verified 08/24/18 10:54) dont remember codeine Allergy (Verified 08/24/18 10:54) Rash iodine Allergy (Verified 08/24/18 10:54) Rash Latex, Natural Rubber Allergy (Verified 08/24/18 10:54) Rash lovastatin Allergy (Verified 08/24/18 10:54) Rash rosuvastatin calcium [From Crestor] Allergy (Verified 08/24/18 10:54) rash\ naproxen [From Naprosyn] Adverse Reaction (Verified 08/24/18 10:54) Upset Stomach pregabalin [From Lyrica] Adverse Reaction (Verified 08/24/18 10:54) Upset Stomach Sulfa (Sulfonamide Antibiotics) Adverse Reaction (Verified 08/24/18 10:54) Upset Stomach Home Medications: Ambulatory Orders Medication Instructions Recorded Insulin Aspart [Novolog Flexpen] 24 units SC TIDCM 03/12/17 Insulin Degludec [Tresiba 70 unit SQ DAILY 10/11/17 Flextouch U-100] Metoprolol Succinate [Toprol Xl] 50 mg PO DAILY 10/11/17 levETIRAcetam tablet [Keppra 500 mg PO BID 10/11/17 tablet] Fluticasone 0.05% [Flonase Nasal 2 sprays NASAL DAILY 04/27/18 [place]] Furosemide [Lasix] 20 mg PO BID 04/27/18 Lisinopril [Zestril] 20 mg PO DAILY 04/27/18 Omeprazole 20 mg PO DAILY 04/27/18 Polyethylene Glycol 3350 [Miralax] 17 gm PO DAILY 04/27/18 Memantine HCl [Namenda] 10 mg PO BID 05/10/18 Prasugrel HCl 10 mg PO DAILY 06/04/18 Rivaroxaban [Xarelto] 15 mg PO DAILY 06/04/18 Simvastatin [Zocor] 40 mg PO QHS 06/04/18 Acetaminophen [Tylenol] 1,000 mg PO Q8 11/18/18 Cetirizine HCl [Zyrtec] 10 mg PO DAILY 11/18/18 Duloxetine HCl 30 mg PO DAILY 11/18/18 Isosorbide Mononitrate [Imdur] 90 mg PO DAILY 11/18/18 Sennosides/Docusate Sodium [Senna 1 each PO DAILY 11/18/18 Plus Tablet] Surgical History: hysterectomy, - - Placement of 2 coronary artery stents; Thyroidectomy for goiter. 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 Sibling History Items: Cancer - Her sister had ovarian cancer., Hypertension Review of Systems Constitutional: Denies: Chills, Fever, Weight Change Eyes: Denies: Blurred vision, Double vision HEENT: Denies: Head Aches, Sinus Congestion, Sinus Drainage Cardiovascular: Denies: Chest Pain, Palpitations Respiratory: Denies: Cough, Shortness of breath at rest, Sputum production Gastrointestinal: Denies: Abdominal Pain, Nausea, Vomiting Genitourinary: Denies: Dysuria Musculoskeletal: Reports: - - Left knee pain, chronic. Skin: Denies: Rash, Wounds Neurological: Denies: Numbness, Tingling, Focal weakness Psychiatric: Denies: Anxiety, Depression Hematologic/ Lymphatic: Denies: Easy Bruising, Easy Bleeding, Hx of blood clot Comment: A 10 point review of systems were negative except as mentioned in the history of present illness and the other review of systems. VTE Information - Inpt Only VTE Present on Admission: No VTE Mechan Device Prophylaxis: None VTE Pharm Prophylaxis ordered?: Yes Patient Problems: Active and Suspected Problems Delirium (Acute) - Physical Exam General: Alert, Oriented x3, Cooperative, No apparent distress, - - Though was slow to give answers. The patient was able to get the date though she did state that there was 19 November rather than the . Was aware of her location and was able to indicate the appearance of the president and the fact that she liked him and everyone else hated him. HEENT: Atraumatic, Normocephalic Oral: Moist Mucosa, No Gingival or Mucosal Lesions/ Ulcerations Neck: Supple, No JVD, Negative Carotid Bruits Lungs: Clear to auscultation, Normal air movement Cardiovascular: Regular rate, Regular Rhythm, Normal S1, Normal S2, No murmurs Abdomen: Bowel Sounds Present, Soft, Non Tender, Non-Distended Extremities: No edema, No Calf Tenderness Skin: No rashes, No breakdown Musculoskeletal: - - Left knee tender palpation without any obvious warmth. Neurological: Cranial nerves II-XII grossly intact, Motor Exam 5/5 strength throughout - Though it was 4 out of 5 in left lower extremity but that was limited due to pain Psych/Mental Status: Normal Affect, Appropriate Vital Signs Temp Pulse Resp BP Pulse Ox 37.0 C 87 14 96/69 97 11/18/18 13:06 11/18/18 13:06 11/18/18 13:06 11/18/18 13:06 11/18/18 13:06 Oxygen Delivery Method Room Air Weight: 106.9 kg Body Mass Index (BMI) 40.4 Finger Stick Blood Glucose 256 Microbiology Past 72 Hours 11/18/18 09:50 Influenza Types A,B Direct FA (ABENA) - Final Mucosa - Nasopharyngeal Laboratory Tests Past 24 Hrs 11/18/18 11/18/18 11/18/18 09:55 09:55 09:55 WBC 8.3 RBC 5.39 Hgb 12.6 Hct 40.4 MCV 75.0 L MCH 23.4 L MCHC 31.2 L RDW 15.9 H RDW Differential 43.3 Plt Count 191 Immature Gran % (Auto) 0.100 Neut % (Auto) 73.5 H Lymph % (Auto) 17.6 L [place] % (Auto) 6.5 Eos % (Auto) 2.1 Baso % (Auto) 0.2 Absolute Neuts (auto) 6.1 Absolute Lymphs (auto) 1.46 Total Counted Pending Sodium 137 Potassium 4.4 Chloride 103 Carbon Dioxide 29.0 Anion Gap 5 BUN 20 H Creatinine 1.22 H Estim Creat Clear Calc 34.41 Est GFR (MDRD) Af Amer 55 L Est GFR (MDRD) Non-Af 46 L BUN/Creatinine Ratio 16.4 Glucose 278 H Lactic Acid 1.0 Calcium 8.8 Total Bilirubin 1.00 AST 15 ALT 18 Alkaline Phosphatase 94 Troponin I < 0.015 Total Protein 7.8 Albumin 3.2 Globulin 4.6 H Albumin/Globulin Ratio 0.7 L Urine Color Urine Clarity Urine pH Ur Specific [place] Urine Protein Urine Glucose (UA) Urine Ketones Urine Occult Blood Urine Nitrite Urine Bilirubin Urine Urobilinogen Ur Leukocyte Esterase Urine RBC Urine WBC Ur Squamous Epith Cells Urine Bacteria Urine Mucus 11/18/18 11:15 WBC RBC Hgb Hct MCV MCH MCHC RDW RDW Differential Plt Count Immature Gran % (Auto) Neut % (Auto) Lymph % (Auto) [place] % (Auto) Eos % (Auto) Baso % (Auto) Absolute Neuts (auto) Absolute Lymphs (auto) Total Counted Sodium Potassium Chloride Carbon Dioxide Anion Gap BUN Creatinine Estim Creat Clear Calc Est GFR (MDRD) Af Amer Est GFR (MDRD) Non-Af BUN/Creatinine Ratio Glucose Lactic Acid Calcium Total Bilirubin AST ALT Alkaline Phosphatase Troponin I Total Protein Albumin Globulin Albumin/Globulin Ratio Urine Color Yellow Urine Clarity Clear Urine pH 6.5 Ur Specific [place] 1.015 Urine Protein 30 H Urine Glucose (UA) 1000 H Urine Ketones 5 H Urine Occult Blood 10 H Urine Nitrite Negative Urine Bilirubin Negative Urine Urobilinogen Normal Ur Leukocyte Esterase 100 H Urine RBC 0-5 SEEN Urine WBC 25-50 SEEN Ur Squamous Epith Cells 0-5 SEEN Urine Bacteria 1+ Urine Mucus 0 SEEN Clinical Impression(s) from Imaging Studies Brain CT 11/18/18 09:34 IMPRESSION: Chronic involutional changes of the brain. Stable 2.3 cm x 1.6 cm arachnoid cyst along the anterior aspect of the left temporal lobe Electronically Signed: Santiago Kwok MD at 10:52 EST , Service support , Chest X-Ray 11/18/18 09:34 IMPRESSION: Findings suggestive of linear scarring in the left midlung. There has been no change. Electronically Signed: Santiago Kwok MD at 10:08 EST , Service support , Assessment/Plan All Active Problems Cholelithiasis (Acute) Delirium (Acute) UTI (urinary tract infection) (Acute) Pneumococcal pneumonia (Acute) Sepsis (Acute) Hypoglycemia (Acute) Chest pain (Acute) Dehydration (Acute) UTI (urinary tract infection) (Acute) Acute delirium (Acute) Delirium (Acute) Sepsis (Acute) Acute cystitis (Acute) Influenza A (Resolved) 1. Delirium Suspect multifactorial due to the patient's underlying dementia but also polypharmacy No clinical dehydration, no urinary tract infection but no pneumonia. Head CT negative. No signs or symptoms concerning for stroke. Would hold potentiating medications: Therefore no Namenda. Will monitor overnight in observation status 2. CAD Stable Continue Effient 3. Diabetes mellitus type 2: Continue with NovoLog as well as basal insulin 4. DVT prophylaxis: Patient is currently anticoagulated Discussed with the patient's daughter at bedside but also another daughter the phone. Code Visit OBSV E&M: [id number] Initial observation care L3
[2018-11-18] MEDS: 0.9% Normal Saline 1,000 ML 150 ML IV (14:51)
[2018-11-18] MEDS: Acetaminophen 500 MG Tablet 1000 MG PO ×2 (14:51→21:08)
--- NOTE | 2018-11-18 15:29 | NURSING ---
called [facility] to get home medication list
[2018-11-18 16:26] LABS: Bedside Glucose 234 mg/dL (70-110)
[2018-11-18] MEDS: Glucerna Shake 120 ML LIQUID PO (17:16)
[2018-11-18] MEDS: Rivaroxaban 15 MG Tablet PO (17:17)
[2018-11-18] MEDS: prednisoLONE eye drops (5 mL) 1 DROP OPTH.BTL 1 DRP LEFT EYE ×2 (17:17→21:09)
[2018-11-18] MEDS: Insulin Lispro 100 UNIT/ML INSULN.PEN 24 UNIT SC (17:18)
[2018-11-18] MEDS: Simvastatin 20 MG Tablet 40 MG PO (21:08)
[2018-11-18] MEDS: levETIRAcetam 500 MG Tablet PO (21:08)
[2018-11-18 21:16] LABS: Bedside Glucose 236 mg/dL (70-110)
[2018-11-18] MEDS: Insulin Lispro 100 UNIT/ML INSULN.PEN SQ (23:49)
[2018-11-19 02:51] VITALS: BP 164/89; PULSE 87; RESP 16; TEMP 36.4; O2SAT 96
[2018-11-19 05:08] VITALS: BP 130/87; PULSE 96; RESP 18; TEMP 36.3; O2SAT 99
[2018-11-19] MEDS: Acetaminophen 500 MG Tablet 1000 MG PO ×2 (06:47→13:14)
[2018-11-19 06:52] LABS: Bedside Glucose 282 mg/dL (70-110)
[2018-11-19 06:52] LABS: Bedside Glucose 256 mg/dL (70-110)
[2018-11-19 08:00] VITALS: PULSE 90
[2018-11-19 08:40] VITALS: BP 154/91; PULSE 90; RESP 18; TEMP 36.6; O2SAT 95
[2018-11-19] MEDS: Insulin Lispro 100 UNIT/ML INSULN.PEN 24 UNIT SC ×2 (09:04→13:16)
[2018-11-19] MEDS: Insulin Lispro 100 UNIT/ML INSULN.PEN SQ ×2 (09:05→13:16)
--- NOTE | 2018-11-19 09:05 | CASEMGMT ---
Social Work Assessment Referral Date: 11/19/2018 Date of Assessment: 11/19/2018 Reason for consult: Pt has PASSPORT services, initial assessment Informant: CM Personal status: SW met with pt to complete initial assessment. SW introduced self and role at [facility]. Pt is alert and orientated x3. Pt states that she lives alone in a one story apartment with neighbors above and next door. Pt states there are no steps to enter the home as she has a ramp. Pt states that she was previously independent with ADLS and was able to do little things. DME include cane, walker, and grab bars in bathroom. Pt states that her washer and dryer are all on the same floor. Pt confirms that she is still received aide services through [facility] and that her CM through [facility] is Toshia Banda. SW explained that PT are recommending additional therapy and pt states she would like therapy in the home. SW explained that this worker can look into see if [facility] can do PT/OT in the home. Pt states understanding Pt spoke to this worker about her know it all daughter Cinthia and mentioned that her other daughter Yeimi and her have never worked and are taking advantage of the system. Pt became upset while talking about her daughter Yeimi not working and taking advantage of the system and kept saying it isn't right. SW spent much time with pt offering support and validating pt's feelings. Pt states that she plans on letting Yeimi use her car as long as Yeimi takes her to her appointments. Pt states that she hopes to one day go to [employer] and walk around the trach and buy a swim suit so she is able to swim in the pool. SW offered support to pt. Substance Abuse Hx: Pt denied substance abuse Hx. Pt does state that she was at [facility] due to her primary doctors prescribing too much medication which led her to becoming confused. Pt states that physician at [facility] is changing her medications around. SW offered support to pt. Mental Health Hx: Pt denied. MINAL placed a call to pt's CM at [facility] Tohsia Banda and left her a message informing her of pt's admission to [facility] and that pt will be discharged home today. MINAL faxed discharge paperwork to Toshia. Per previous notes pt has emergency response button, [facility] Friday and for 2 hours each day for personal care and M, W, F 2 hours easy day for homemaker services. MINAL placed a call to [facility] and spoke with Kelly. Per Kelly she thinks [facility] will have to provided halfway and PT/OT to pt but she will send an email to [facility] to confirms. MINAL received call from Citlali at [facility] stating they are able to provide halfway and PT/OT to pt and just need H+P, D/C Summary and order for [facility] faxed to [phone]. MINAL faxed H+P, Discharge summary, halfway and PT/OT order to [facility]. MINAL updated pt that [facility] will be providing halfway and PT/OT to pt. Pt states understanding. Plan: Pt to discharge home with resumption of PASSPORT services, [facility] aide services and [facility] (halfway, PT/OT) Rhea Soto RACK CARRIER, KNOCKUP WORKER
[2018-11-19] MEDS: Fluticasone 0.05% 1 SPRAY NASAL.SRY 2 SPRAY NASAL (09:06)
[2018-11-19] MEDS: Isosorbide Mononitrate 30 MG Tablet 90 MG PO (09:07)
[2018-11-19] MEDS: levETIRAcetam 500 MG Tablet PO (09:08)
[2018-11-19] MEDS: Polyethylene Glycol 3350 17 GM PACKET PO (09:09)
[2018-11-19 09:10] VITALS: PULSE 90
[2018-11-19] MEDS: Pantoprazole Sodium 20 MG Tablet PO (09:10)
[2018-11-19] MEDS: prednisoLONE eye drops (5 mL) 1 DROP OPTH.BTL 1 DRP LEFT EYE (09:10)
[2018-11-19] MEDS: Metoprolol(XL)Succ 50 MG Tablet PO (09:10)
[2018-11-19] MEDS: Lisinopril 20 MG Tablet PO (09:11)
--- NOTE | 2018-11-19 09:50 | PCM.DC ---
- Discharge Diagnoses Current Active Problems: Current Active and Chronic Problems Delirium (Acute) You will use the following diet at home:: Calorie/Carbohydrate Controlled (specify 1200, 1400, etc) - 1800 calories/day, Cardiac Your food should be the consistency of: Regular Your liquids should be the consistency of: Regular/Thin Discharge Activity: Return to Normal Activity Call your doctor if you observe: - - worsening confusion. Allergies/Adverse Reactions: Allergies atorvastatin calcium [From Lipitor] Allergy (Verified 08/24/18 10:54) dont remember codeine Allergy (Verified 08/24/18 10:54) Rash iodine Allergy (Verified 08/24/18 10:54) Rash Latex, Natural Rubber Allergy (Verified 08/24/18 10:54) Rash lovastatin Allergy (Verified 08/24/18 10:54) Rash rosuvastatin calcium [From Crestor] Allergy (Verified 08/24/18 10:54) rash\ naproxen [From Naprosyn] Adverse Reaction (Verified 08/24/18 10:54) Upset Stomach pregabalin [From Lyrica] Adverse Reaction (Verified 08/24/18 10:54) Upset Stomach Sulfa (Sulfonamide Antibiotics) Adverse Reaction (Verified 08/24/18 10:54) Upset Stomach Medications to take at Discharge Insulin Aspart [Novolog Flexpen] 24 units SC TIDCM 03/12/17 Insulin Degludec [Tresiba Flextouch U-100] 76 unit SQ DAILY 10/11/17 Metoprolol Succinate [Toprol Xl] 50 mg PO DAILY 10/11/17 levETIRAcetam tablet [Keppra tablet] 500 mg PO BID 10/11/17 Fluticasone 0.05% [Flonase Nasal [place]] 2 sprays NASAL DAILY 04/27/18 Furosemide [Lasix] 20 mg PO BID 04/27/18 Lisinopril [Zestril] 10 mg PO DAILY 04/27/18 Omeprazole 20 mg PO DAILY 04/27/18 Polyethylene Glycol 3350 [Miralax] 17 gm PO DAILY PRN 04/27/18 Prasugrel HCl 10 mg PO DAILY 06/04/18 Rivaroxaban [Xarelto] 15 mg PO DAILY 06/04/18 Simvastatin [Zocor] 40 mg PO QHS 06/04/18 Acetaminophen [Tylenol] 1,000 mg PO Q8 11/18/18 Cetirizine HCl [Zyrtec] 10 mg PO DAILY PRN 11/18/18 Duloxetine HCl 30 mg PO DAILY 11/18/18 Isosorbide Mononitrate [Isosorbide Mononitrate ER] 3 tab PO DAILY 11/18/18 Ketorolac Tromethamine [Acular] 1 drop OPHTHALMIC 4X/DAY 11/18/18 Lidocaine [Lidoderm Patch] 1 patch TOPICAL DAILY 11/18/18 Sennosides/Docusate Sodium [Senna Plus Tablet] 2 tab PO DAILY 11/18/18 prednisoLONE eye drops (1 mL) [Pred Forte eye drops (1 mL)] 1 drop EACH EYE 4X/DAY 11/18/18 Isosorbide Mononitrate [Imdur] 90 mg PO DAILY tablet 11/19/18 Morphine Sulfate/Naltrexone [Embeda ER 20-0.8 mg Capsule] 1 each PO DAILY PRN 1 Days #1 11/19/18 Primary Care Physician: Emerita Gottlieb MD [Primary Care Provider] - Within 2 Weeks Test Results: Test results from this visit will be discussed in further detail at your follow-up appointment, if applicable. Proposed Discharge Date: 11/19/18
--- NOTE | 2018-11-19 09:52 | PCM.DC.SUM ---
Discharge Date and Diagnosis - Problem List Patient Problems: Active and Suspected Problems Delirium (Acute) Date of Admission: 11/18/18 Date of Discharge: 11/19/18 - Primary Discharge Diagnosis Active and Suspected Problems Delirium (Acute) - Secondary Discharge Diagnosis Chronic Problems Migraine (Chronic) Hyperlipidemia (Chronic) Hypertension (Chronic) Benign essential hypertension (Chronic) CAD (coronary artery disease) (Chronic) Chronic CHF (Chronic) Chronic constipation (Chronic) Type II diabetes mellitus (Chronic) Morbid obesity (Chronic) Osteoarthritis (Chronic) Spondylosis (Chronic) History of urinary incontinence (Chronic) Chronic back pain (Chronic) Sleep apnea (Chronic) CKD (chronic kidney disease) stage 3, GFR 30-59 ml/min (Chronic) Hospital Course and Treatment Imaging Results: Clinical Impression(s) from Imaging Studies Brain CT 11/18/18 09:34 IMPRESSION: Chronic involutional changes of the brain. Stable 2.3 cm x 1.6 cm arachnoid cyst along the anterior aspect of the left temporal lobe Electronically Signed: Santiago Kwok MD at 10:52 EST , Service support , Chest X-Ray 11/18/18 09:34 IMPRESSION: Findings suggestive of linear scarring in the left midlung. There has been no change. Electronically Signed: Santiago Kwok MD at 10:08 EST , Service support , Operations: None Procedures: None Summary of Care Provided: The patient is a 73 year old F presents with confusion from home. Patient was more notably confused when she first arrived to the emergency room, but eventually she was alert and oriented x3. Her responses, however, slow but coherent. Patient is on Namenda but does not have diagnoses of dementia and her documentation. Patient does express issues with confusion in the past but does not appear the patient been formally diagnosed with dementia. The patient may have some underlying dementia but I think another component is her medications. Be most concerned about patient's Namenda as well her morphine/naltrexone. Recommended that be cut back to once daily as needed. Patient complains of pain in her left knee and unfortunately would not recommend any NSAIDs given her use of anticoagulants and antiplatelets. Today, the patient is alert and oriented x3 and is appropriate otherwise. Patient was seen by physical therapy who recommended additional therapy needs. Discussed outpatient versus home health care longterm facility. Patient feels that she would be homebound to get home health care. Patient will be discharged home today in stable condition. Namenda will be discontinued and her morphine sulfate/naltrexone and will be cut back to once daily as needed. [] Patient Problems: Active and Suspected Problems Delirium (Acute) - Physical Exam General: Alert, Cooperative, No apparent distress HEENT: Atraumatic, Normocephalic Psych/Mental Status: Normal Affect, Agitated Vital Signs Temp Pulse Resp BP Pulse Ox 36.6 C 90 18 154/91 H 95 11/19/18 08:40 11/19/18 09:10 11/19/18 08:40 11/19/18 08:40 11/19/18 08:40 Oxygen Delivery Method Room Air Weight: 103.4 kg Body Mass Index (BMI) 39.1 Finger Stick Blood Glucose 256 Intake and Output for Last 24 Hours 11/17/18 11/18/18 11/19/18 23:59 23:59 23:59 Intake Total 650 / 650 500 / 500 Balance 650 / 650 500 / 500 Microbiology Past 72 Hours 11/18/18 09:50 Influenza Types A,B Direct FA (ABENA) - Final Mucosa - Nasopharyngeal Laboratory Tests Past 24 Hrs 11/18/18 11/18/18 11/18/18 09:55 09:55 09:55 WBC 8.3 RBC 5.39 Hgb 12.6 Hct 40.4 MCV 75.0 L MCH 23.4 L MCHC 31.2 L RDW 15.9 H RDW Differential 43.3 Plt Count 191 Immature Gran % (Auto) 0.100 Neut % (Auto) 73.5 H Lymph % (Auto) 17.6 L [place] % (Auto) 6.5 Eos % (Auto) 2.1 Baso % (Auto) 0.2 Absolute Neuts (auto) 6.1 Absolute Lymphs (auto) 1.46 Total Counted Not Reportable Sodium 137 Potassium 4.4 Chloride 103 Carbon Dioxide 29.0 Anion Gap 5 BUN 20 H Creatinine 1.22 H Estim Creat Clear Calc 34.41 Est GFR (MDRD) Af Amer 55 L Est GFR (MDRD) Non-Af 46 L BUN/Creatinine Ratio 16.4 Glucose 278 H Lactic Acid 1.0 Calcium 8.8 Total Bilirubin 1.00 AST 15 ALT 18 Alkaline Phosphatase 94 Troponin I < 0.015 Total Protein 7.8 Albumin 3.2 Globulin 4.6 H Albumin/Globulin Ratio 0.7 L Urine Color Urine Clarity Urine pH Ur Specific [place] Urine Protein Urine Glucose (UA) Urine Ketones Urine Occult Blood Urine Nitrite Urine Bilirubin Urine Urobilinogen Ur Leukocyte Esterase Urine RBC Urine WBC Ur Squamous Epith Cells Urine Bacteria Urine Mucus 11/18/18 11:15 WBC RBC Hgb Hct MCV MCH MCHC RDW RDW Differential Plt Count Immature Gran % (Auto) Neut % (Auto) Lymph % (Auto) [place] % (Auto) Eos % (Auto) Baso % (Auto) Absolute Neuts (auto) Absolute Lymphs (auto) Total Counted Sodium Potassium Chloride Carbon Dioxide Anion Gap BUN Creatinine Estim Creat Clear Calc Est GFR (MDRD) Af Amer Est GFR (MDRD) Non-Af BUN/Creatinine Ratio Glucose Lactic Acid Calcium Total Bilirubin AST ALT Alkaline Phosphatase Troponin I Total Protein Albumin Globulin Albumin/Globulin Ratio Urine Color Yellow Urine Clarity Clear Urine pH 6.5 Ur Specific [place] 1.015 Urine Protein 30 H Urine Glucose (UA) 1000 H Urine Ketones 5 H Urine Occult Blood 10 H Urine Nitrite Negative Urine Bilirubin Negative Urine Urobilinogen Normal Ur Leukocyte Esterase 100 H Urine RBC 0-5 SEEN Urine WBC 25-50 SEEN Ur Squamous Epith Cells 0-5 SEEN Urine Bacteria 1+ Urine Mucus 0 SEEN POC Glucose 11/19/18 11/19/18 11/18/18 06:45 05:03 21:05 POC Glucose 256 H 282 H 236 H 11/18/18 16:21 POC Glucose 234 H Discharge Diet: Low fat/ Low Cholesterol, 1800 Calorie Control Diet Discharge Activity: Return to Normal Activity Call your doctor if you observe: - - worsening confusion. Home Medications: Medications to take at Discharge Insulin Aspart [Novolog Flexpen] 24 units SC TIDCM 03/12/17 Insulin Degludec [Tresiba Flextouch U-100] 76 unit SQ DAILY 10/11/17 Metoprolol Succinate [Toprol Xl] 50 mg PO DAILY 10/11/17 levETIRAcetam tablet [Keppra tablet] 500 mg PO BID 10/11/17 Fluticasone 0.05% [Flonase Nasal [place]] 2 sprays NASAL DAILY 04/27/18 Furosemide [Lasix] 20 mg PO BID 04/27/18 Lisinopril [Zestril] 10 mg PO DAILY 04/27/18 Omeprazole 20 mg PO DAILY 04/27/18 Polyethylene Glycol 3350 [Miralax] 17 gm PO DAILY PRN 04/27/18 Prasugrel HCl 10 mg PO DAILY 06/04/18 Rivaroxaban [Xarelto] 15 mg PO DAILY 06/04/18 Simvastatin [Zocor] 40 mg PO QHS 06/04/18 Acetaminophen [Tylenol] 1,000 mg PO Q8 11/18/18 Cetirizine HCl [Zyrtec] 10 mg PO DAILY PRN 11/18/18 Duloxetine HCl 30 mg PO DAILY 11/18/18 Isosorbide Mononitrate [Isosorbide Mononitrate ER] 3 tab PO DAILY 11/18/18 Ketorolac Tromethamine [Acular] 1 drop OPHTHALMIC 4X/DAY 11/18/18 Lidocaine [Lidoderm Patch] 1 patch TOPICAL DAILY 11/18/18 Sennosides/Docusate Sodium [Senna Plus Tablet] 2 tab PO DAILY 11/18/18 prednisoLONE eye drops (1 mL) [Pred Forte eye drops (1 mL)] 1 drop EACH EYE 4X/DAY 11/18/18 Isosorbide Mononitrate [Imdur] 90 mg PO DAILY tablet 11/19/18 Morphine Sulfate/Naltrexone [Embeda ER 20-0.8 mg Capsule] 1 each PO DAILY PRN 1 Days #1 11/19/18 Primary Care Physician: Emerita Gottlieb MD [Primary Care Provider] - Within 2 Weeks Disposition: Home with Home Health Minutes spent on discharge:: 28 Patient Condition:: Good Medical Necessity - Tobacco Use Smoking Status: Former smoker Tobacco Use: Non-smoker Meaningful Use Info Meaningful Use Diagnoses (Choose all that apply): None applicable Code Visit OBSV E&M: 23928 Observation care discharge
--- NOTE | 2018-11-19 09:56 | DS.PCM_ITS ---
Discharge Date and Diagnosis - Problem List Patient Problems: Active and Suspected Problems Delirium (Acute) Date of Admission: 11/18/18 Date of Discharge: 11/19/18 - Primary Discharge Diagnosis Active and Suspected Problems Delirium (Acute) - Secondary Discharge Diagnosis Chronic Problems Migraine (Chronic) Hyperlipidemia (Chronic) Hypertension (Chronic) Benign essential hypertension (Chronic) CAD (coronary artery disease) (Chronic) Chronic CHF (Chronic) Chronic constipation (Chronic) Type II diabetes mellitus (Chronic) Morbid obesity (Chronic) Osteoarthritis (Chronic) Spondylosis (Chronic) History of urinary incontinence (Chronic) Chronic back pain (Chronic) Sleep apnea (Chronic) CKD (chronic kidney disease) stage 3, GFR 30-59 ml/min (Chronic) Hospital Course and Treatment Imaging Results: Clinical Impression(s) from Imaging Studies Brain CT 11/18/18 09:34 IMPRESSION: Chronic involutional changes of the brain. Stable 2.3 cm x 1.6 cm arachnoid cyst along the anterior aspect of the left temporal lobe Electronically Signed: Santiago Kwok MD at 10:52 EST , Service support , Chest X-Ray 11/18/18 09:34 IMPRESSION: Findings suggestive of linear scarring in the left midlung. There has been no change. Electronically Signed: Santiago Kwok MD at 10:08 EST , Service support , Operations: None Procedures: None Summary of Care Provided: The patient is a 73 year old F presents with confusion from home. Patient was more notably confused when she first arrived to the emergency room, but eventually she was alert and oriented x3. Her responses, however, slow but coherent. Patient is on Namenda but does not have diagnoses of dementia and her documentation. Patient does express issues with confusion in the past but does not appear the patient been formally diagnosed with dementia. The patient may have some underlying dementia but I think another component is her medications. Be most concerned about patient's Namenda as well her morphine/naltrexone. Recommended that be cut back to once daily as needed. Patient complains of pain in her left knee and unfortunately would not recommend any NSAIDs given her use of anticoagulants and antiplatelets. Today, the patient is alert and oriented x3 and is appropriate otherwise. Patient was seen by physical therapy who recommended additional therapy needs. Discussed outpatient versus home health care [facility] facility. Patient feels that she would be homebound to get home health care. Patient will be discharged home today in stable condition. Namenda will be discontinued and her morphine sulfate/naltrexone and will be cut back to once daily as needed. [] Patient Problems: Active and Suspected Problems Delirium (Acute) - Physical Exam General: Alert, Cooperative, No apparent distress HEENT: Atraumatic, Normocephalic Psych/Mental Status: Normal Affect, Agitated Vital Signs Temp Pulse Resp BP Pulse Ox 36.6 C 90 18 154/91 H 95 11/19/18 08:40 11/19/18 09:10 11/19/18 08:40 11/19/18 08:40 11/19/18 08:40 Oxygen Delivery Method Room Air Weight: 103.4 kg Body Mass Index (BMI) 39.1 Finger Stick Blood Glucose 256 Intake and Output for Last 24 Hours 11/17/18 11/18/18 11/19/18 23:59 23:59 23:59 Intake Total 650 / 650 500 / 500 Balance 650 / 650 500 / 500 Microbiology Past 72 Hours 11/18/18 09:50 Influenza Types A,B Direct FA (ABENA) - Final Mucosa - Nasopharyngeal Laboratory Tests Past 24 Hrs 11/18/18 11/18/18 11/18/18 09:55 09:55 09:55 WBC 8.3 RBC 5.39 Hgb 12.6 Hct 40.4 MCV 75.0 L MCH 23.4 L MCHC 31.2 L RDW 15.9 H RDW Differential 43.3 Plt Count 191 Immature Gran % (Auto) 0.100 Neut % (Auto) 73.5 H Lymph % (Auto) 17.6 L [place] % (Auto) 6.5 Eos % (Auto) 2.1 Baso % (Auto) 0.2 Absolute Neuts (auto) 6.1 Absolute Lymphs (auto) 1.46 Total Counted Not Reportable Sodium 137 Potassium 4.4 Chloride 103 Carbon Dioxide 29.0 Anion Gap 5 BUN 20 H Creatinine 1.22 H Estim Creat Clear Calc 34.41 Est GFR (MDRD) Af Amer 55 L Est GFR (MDRD) Non-Af 46 L BUN/Creatinine Ratio 16.4 Glucose 278 H Lactic Acid 1.0 Calcium 8.8 Total Bilirubin 1.00 AST 15 ALT 18 Alkaline Phosphatase 94 Troponin I < 0.015 Total Protein 7.8 Albumin 3.2 Globulin 4.6 H Albumin/Globulin Ratio 0.7 L Urine Color Urine Clarity Urine pH Ur Specific [place] Urine Protein Urine Glucose (UA) Urine Ketones Urine Occult Blood Urine Nitrite Urine Bilirubin Urine Urobilinogen Ur Leukocyte Esterase Urine RBC Urine WBC Ur Squamous Epith Cells Urine Bacteria Urine Mucus 11/18/18 11:15 WBC RBC Hgb Hct MCV MCH MCHC RDW RDW Differential Plt Count Immature Gran % (Auto) Neut % (Auto) Lymph % (Auto) [place] % (Auto) Eos % (Auto) Baso % (Auto) Absolute Neuts (auto) Absolute Lymphs (auto) Total Counted Sodium Potassium Chloride Carbon Dioxide Anion Gap BUN Creatinine Estim Creat Clear Calc Est GFR (MDRD) Af Amer Est GFR (MDRD) Non-Af BUN/Creatinine Ratio Glucose Lactic Acid Calcium Total Bilirubin AST ALT Alkaline Phosphatase Troponin I Total Protein Albumin Globulin Albumin/Globulin Ratio Urine Color Yellow Urine Clarity Clear Urine pH 6.5 Ur Specific [place] 1.015 Urine Protein 30 H Urine Glucose (UA) 1000 H Urine Ketones 5 H Urine Occult Blood 10 H Urine Nitrite Negative Urine Bilirubin Negative Urine Urobilinogen Normal Ur Leukocyte Esterase 100 H Urine RBC 0-5 SEEN Urine WBC 25-50 SEEN Ur Squamous Epith Cells 0-5 SEEN Urine Bacteria 1+ Urine Mucus 0 SEEN POC Glucose 11/19/18 11/19/18 11/18/18 06:45 05:03 21:05 POC Glucose 256 H 282 H 236 H 11/18/18 16:21 POC Glucose 234 H Discharge Diet: Low fat/ Low Cholesterol, 1800 Calorie Control Diet Discharge Activity: Return to Normal Activity Call your doctor if you observe: - - worsening confusion. Home Medications: Medications to take at Discharge Insulin Aspart [Novolog Flexpen] 24 units SC TIDCM 03/12/17 Insulin Degludec [Tresiba Flextouch U-100] 76 unit SQ DAILY 10/11/17 Metoprolol Succinate [Toprol Xl] 50 mg PO DAILY 10/11/17 levETIRAcetam tablet [Keppra tablet] 500 mg PO BID 10/11/17 Fluticasone 0.05% [Flonase Nasal [place]] 2 sprays NASAL DAILY 04/27/18 Furosemide [Lasix] 20 mg PO BID 04/27/18 Lisinopril [Zestril] 10 mg PO DAILY 04/27/18 Omeprazole 20 mg PO DAILY 04/27/18 Polyethylene Glycol 3350 [Miralax] 17 gm PO DAILY PRN 04/27/18 Prasugrel HCl 10 mg PO DAILY 06/04/18 Rivaroxaban [Xarelto] 15 mg PO DAILY 06/04/18 Simvastatin [Zocor] 40 mg PO QHS 06/04/18 Acetaminophen [Tylenol] 1,000 mg PO Q8 11/18/18 Cetirizine HCl [Zyrtec] 10 mg PO DAILY PRN 11/18/18 Duloxetine HCl 30 mg PO DAILY 11/18/18 Isosorbide Mononitrate [Isosorbide Mononitrate ER] 3 tab PO DAILY 11/18/18 Ketorolac Tromethamine [Acular] 1 drop OPHTHALMIC 4X/DAY 11/18/18 Lidocaine [Lidoderm Patch] 1 patch TOPICAL DAILY 11/18/18 Sennosides/Docusate Sodium [Senna Plus Tablet] 2 tab PO DAILY 11/18/18 prednisoLONE eye drops (1 mL) [Pred Forte eye drops (1 mL)] 1 drop EACH EYE 4X/DAY 11/18/18 Isosorbide Mononitrate [Imdur] 90 mg PO DAILY tablet 11/19/18 Morphine Sulfate/Naltrexone [Embeda ER 20-0.8 mg Capsule] 1 each PO DAILY PRN 1 Days #1 11/19/18 Primary Care Physician: Emerita Gottlieb MD [Primary Care Provider] - Within 2 Weeks Disposition: Home with Home Health Minutes spent on discharge:: 28 Patient Condition:: Good Medical Necessity - Tobacco Use Smoking Status: Former smoker Tobacco Use: Non-smoker Meaningful Use Info Meaningful Use Diagnoses (Choose all that apply): None applicable Code Visit OBSV E&M: 02014 Observation care discharge
[2018-11-19 11:42] LABS: Bedside Glucose 355 mg/dL (70-110)
--- NOTE | 2018-11-19 13:31 | CASEMGMT ---
RN CM Note: Call received from nursing re: Pt being dc'd on change in Morphine dosing to once a day. Pt gets medications through [facility], prepackaged. Call to [facility] Pharmacist who states if pt brings packages in to pharmacy they will take medication out for proper dosing, however they need new prescription to process correct dosing. Pt will not have new prescription for Morphine on dc. -Recommended to nurse that pt/family take medication packs and DC instructions with correct dose per physician to [facility] and they will assist pt. -Call to [facility] re: [facility] care. They are assisting with nonskilled, and [facility] is providing long term. -Call to [facility]-updated on DC instructions, dc date of today and that pt will have medication changes on dc reflected on DC Instructions. RN to see patient tomorrow. Also notified via fax that [facility] will assist pt with packaged medication update if pt brings in to pharmacy. DC instructions and Summary faxed. (PH) [phone] (FX) [phone] -Call to Dr. Gottlieb's office. Pain medication is being ordered through [facility] ([phone]). Call to notify of changes to pain medication on discharge and pt will not have updated script with [facility]. DC Instructions and Summary faxed to Pain clinic @ [phone]. Information will be forwarded to Nurse Practitioner so she has information when [place] Pharmacist contacts her for updated script. Shahid DOMINGO RN [facility]
[2018-11-19 14:40] VITALS: BP 150/80; PULSE 91; RESP 18; TEMP 36.6; O2SAT 94
--- NOTE | 2018-11-19 15:00 | NURSING ---
Much instruction given related to discharge medications. Verified that pt's Embeda comes separate from her meds from [facility] because it is a controlled substance. So, there was not a problem with the pt being able to just take the med daily PRN vs BID. However, [facility] had pre-packaged Namenda in her bedtime meds, and this was discontinued by Dr Muñiz. Instructed pt and family that Namenda is d/c and they need to take d/c med list and med packages to [facility] to have it removed. Pt & 2 daughters verbalized understanding. Also aware to take medication list w/them to pt's doctors appt's.
== END 2018-11-19 15:30 | disposition home health service (06) ==
LOC: ED 10:32 → PCU 13:17 → MS3 13:30 → PCU 11-19 07:41
PROVIDERS: Emergency Provider Emergency Medicine; Family Provider Internal Medicine; PCP Internal Medicine
DX: R41.0 Disorientation, unspecified (principal); R53.1 Weakness; E78.5 Hyperlipidemia, unspecified; I13.0 Hypertensive heart and chronic kidney disease with heart failure and stage 1 through stage 4 chronic kidney disease, or unspecified chronic kidney disease; I50.9 Heart failure, unspecified; N18.3 Chronic kidney disease, stage 3 (moderate); E11.22 Type 2 diabetes mellitus with diabetic chronic kidney disease; G47.30 Sleep apnea, unspecified; E66.01 Morbid (severe) obesity due to excess calories; I25.10 Atherosclerotic heart disease of native coronary artery without angina pectoris; M19.90 Unspecified osteoarthritis, unspecified site; G89.29 Other chronic pain; G43.909 Migraine, unspecified, not intractable, without status migrainosus; I48.91 Unspecified atrial fibrillation; Z79.4 Long term (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 of insulin; Z79.899 Other long term (current) drug therapy; Z79.51 Long term (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 of inhaled steroids; Z68.39 Body mass index [BMI] 39.0-39.9, adult; Z71.3 Dietary counseling and surveillance; Z79.01 Long term (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 of anticoagulants; Z87.891 Personal history of nicotine dependence
CPT/HCPCS: 70450; 71045; 80053; 81001; 82962; 83605; 84484; 85025; 87040; 87086; 87804; 93005; 96360; 96361; 97162; 99218; 99285; J7030; P9612; A4216; G0378

== ENCOUNTER 2018-11-25 19:07 | Observation (INO) | payer MEDICARE, SELFPAY ==
[2018-11-18 13:55] VITALS: BMI 39.1
[2018-11-25 19:08] VITALS: BP 118/77; PULSE 84; RESP 14; TEMP 36.6; O2SAT 98; BMI 39.8
[2018-11-25 19:36] VITALS: BP 107/56; PULSE 82; O2SAT 96
--- NOTE | 2018-11-25 19:55 | CT_ITS ---
STUDY: CT BRAIN WITHOUT CONTRAST REASON FOR EXAM: Female, 73 years old. Trauma RADIATION DOSAGE (If Supplied By Facility): CTDIvol = ( 44.99 ) mGy, DLP = ( 796.11 ) mGycm TECHNIQUE: Transaxial CT imaging of the brain was performed without administration of intravenous contrast material. Individualized dose optimization techniques were used for this CT. COMPARISON: November 18 2018 FINDINGS: Normal soft tissue structures. Normal calvarium. Calcification of cavernous carotids. Moderate atrophy and periventricular white matter ischemic changes.. Normal basal ganglia and thalami. Normal brainstem. Normal cerebellum. Small arachnoid cyst noted within the left middle cranial fossa There is no intracranial hemorrhage. There are no findings of an acute ischemic infarction. Postsurgical changes of the orbits. Normal visualized paranasal sinuses. No significant change prior exam CT/Brain/Head without Contrast IMPRESSION: Moderate atrophy and periventricular white matter ischemic changes. No evidence for acute bleed. Electronically Signed: Cristian Kam MD at 21:00 EST , Service support ,
--- NOTE | 2018-11-25 19:55 | CT_ITS ---
STUDY: CT CERVICAL SPINE WITHOUT CONTRAST REASON FOR EXAM: Female, 73 years old. Trauma RADIATION DOSAGE (If Supplied By Facility): CTDIvol = ( 17.34 ) mGy, DLP = ( 363.07 ) mGycm TECHNIQUE: High resolution transaxial imaging was performed without contrast material. Sagittal and coronal images were reconstructed. Individualized dose optimization techniques were used for this CT. COMPARISON: April 17, 2015 FINDINGS: Normal craniovertebral junction. Normal anterior atlantoaxial articulation. Normal odontoid process. Decreased cervical lordosis. Normal vertebral bodies and posterior osseous elements. C2-3: Normal endplates. Normal disc height and morphology. Normal central canal and intervertebral neuroforamina. C3-4: Normal endplates. Normal disc height and small central disc protrusion.. Normal central canal and intervertebral neuroforamina. C4-5: Normal endplates. Narrowed disc height and small central disc protrusion. Narrowing of the central canal and mild impingement upon the cord. Normal intervertebral neuroforamina. C5-6: Narrowed disc space and endplate spurring. There is a left paracentral/posterolateral disc/osteophyte protrusion narrowing the spinal canal and compressing the cord. There is severe left neuroforaminal stenosis secondary to disc and bony hypertrophy.. C6-7: Normal endplates. Normal disc height and morphology. Normal central canal and intervertebral neuroforamina. C7-T1: Normal endplates. Normal disc height and morphology. Normal central canal and intervertebral neuroforamina. Postop change status post left thyroidectomy CT/Spine Cervical without Contras IMPRESSION: No evidence for acute fracture or subluxation Mild spondylosis most severe at C4-5 and C5-6 where there appears to be spinal stenosis secondary to disc disease and bony hypertrophy. MRI would be useful for further assessment if clinically indicated Electronically Signed: Cristian Kam MD at 21:04 EST , Service support ,
--- NOTE | 2018-11-25 19:55 | RAD_ITS ---
STUDY: X-RAY - RIGHT TIBIA AND FIBULA REASON FOR EXAM: Female, 73 years old. Posttraumatic pain TECHNIQUE: 4 view(s) of the tibia and fibula were obtained. COMPARISON: None. FINDINGS: Normal visualized tibia. Normal visualized fibula. There is focal pretibial soft tissue swelling. RAD/Tibia & Fibula 2 Views IMPRESSION: Focal pretibial soft tissue swelling without evidence for fracture Electronically Signed: Cristian Kam MD at 21:05 EST , Service support ,
[2018-11-25] MEDS: fentaNYL 100 MCG/2 ML Ampul 25 MCG IV ×2 (20:10→21:26)
[2018-11-25 20:31] LABS: Anion Gap 10 (5-15); BUN 39 mg/dL (7-18); BUN/Creat Ratio 23.5 RATIO (10-20); Calcium,Total 8.5 mg/dL (8.5-10.1); Chloride 105 mmol/L (98-107); Creatinine, Serum 1.66 mg/dL (0.55-1.02); EST Glomerular Filtration Rate 32 mL/min (>60); Est Glom Filt Rate - Afr Amer 39 mL/min (>60); Estimated Creatinine Clearance 25.29 ml/min; Glucose 443 mg/dL (74-106); Sodium Level 138 mmol/L (136-145)
[2018-11-25 21:02] LABS: Prothrombin Time (Protime)PT. 13.6 SECONDS (11.7-14.9)
[2018-11-25 21:03] LABS: Partial Thromboplast Time 28.8 Seconds (24.1-36.2)
[2018-11-25 21:20] VITALS: BP 101/58; PULSE 77; RESP 18; O2SAT 96
[2018-11-25 21:28] LABS: Absolute Lymphocyte Count 2.04 X10^3/ul (0.83-4.51); Absolute Neutrophil Count 6.8 X10^3/uL (2.0-7.7); Basophil# 0.03 X10^3/uL; Basophil% 0.3 % (0-1); Eosinophil# 0.37 X10^3/uL; Eosinophils% 3.7 % (0-5); Hematocrit 38.6 % (37-47); Hemoglobin 12.1 g/dl (12.0-15.0); Lymphocyte # 2.04 X10^3/ul (4.0); Lymphocyte % 20.6 % (19-41); Mean Corp Hgb Conc 31.3 g/gl (32-36); Mean Corpuscular Hgb 23.6 pg (27.0-32.0); Mean Corpuscular Volume 75.2 fL (81-99); Monocyte# 0.68 X10^3/uL; Monocyte% 6.9 % (0-10); Neutrophil # 6.77 X10^3/uL (2.7-7.7); Neutrophil % 68.2 % (47-70); Platelet Count 201 K/mm3 (150-450); RBC Distribution Width CV 16.5 % (11.6-14.6); RBC Distribution Width SD 45.3 fl (35.1-43.9); Red Blood Count 5.13 M/mm3 (4.2-5.4); White Blood Count 9.9 K/mm3 (4.4-11.0)
[2018-11-25 21:31] LABS: Differential Indicated SCAN CRITERIA MET; POSITIVE COUNT NO; POSITIVE DIFFERENTIAL NO; POSITIVE MORPHOLOGY YES
--- NOTE | 2018-11-25 21:39 | ED.RN ---
DWAIN WRAP APPLIED TO PATIENT'S RIGHT LOWER LEG CONTUSION PER DR. RAY VERBAL ORDER TO THIS NURSE.
[2018-11-25] MEDS: 0.9% Normal Saline 1,000 ML 150 ML IV (21:45)
[2018-11-25 21:53] LABS: Differential Comment SCANNED; Platelet Estimate ADEQUATE (ADEQ); Platelet Morphology LARGE
--- NOTE | 2018-11-25 22:33 | ED.DCSUM_ITS ---
- ER Visit Summary Date of Service: 11/25/18 Chief Complaint: Fall History of Present Illness: The patient is a 73 F who was sitting up on her wheeled walker seat in the kitchen trying to make herself some sandwiches when she started to fall backwards on uneven floor. She states she reached forward and grabbed for a drawer. She continued to roll backward and the door pulled out landing on her. She fell to the floor. She complains of injury to her head, neck, and right lower leg. Patient has had problems with her left knee is had difficulty with ambulation at baseline. Patient was recently admitted for delirium and had some medication adjustments made. At that time there was question on whether she was safe at home. Plan was to go home with home health care and patient states that is still being set up. Physical Examination: Vital signs are unremarkable. Patient sitting upright in bed no acute distress. Head neck examination was no obvious external sign of trauma. She does have mild low C-spine tenderness. Heart is regular rate and rhythm. Lungs sounds grossly clear. Abdomen is soft, obese, nontender. Lower extremity examination reveals a large hematoma over the anterior right claros with surrounding tenderness to palpation. She does have strong distal pulses. No obvious bony deformity. Left knee is mildly tender to palpation, but patient states this is chronic and unchanged from her baseline. Test Results: CBC and chemistry studies significant only for creatinine 1.6 which was of slightly above her baseline. Glucose is 443. Coags unremarkable. Patient is noted to be on Xarelto. Right tib-fib x-rays reveal focal pretibial soft tissue swelling without fracture. CT the head shows mild atrophy with no acute bleed. CT the C-spine shows no acute fracture or subluxation. Emergency Department Course and Treatment: Patient was given fentanyl, Zofran, and gentle IV fluids. At this time patient already has difficulty ambulating secondary to her knee problems on the left. She now has an acute injury on the right and cannot easily bear weight to this leg. At this time I do not feel that she is safe to go home. She will need observation overnight and evaluation by PT in the morning. Treatment Plan: [] Disposition: Admit Impression: 1. Fall 2. Right leg contusion with hematoma This note was generated with [employer] dictation software. It may contain incorrect words, spelling, and punctuation that were not noted in review of the chart prior to signing ED Disposition - Plan for ED Patient: Referrals: Emerita Gottlieb MD [Primary Care Provider] -
--- NOTE | 2018-11-25 22:40 | PCM.HP.STD ---
Problem List (1) GRIS (acute kidney injury) Status: Acute (2) Fall Status: Acute Qualifiers: Encounter type: initial encounter Qualified Code(s): W19.XXXA - Unspecified fall, initial encounter (3) Migraine Status: Chronic Qualifiers: Migraine type: unspecified Status migrainosus presence: without status migrainosus Intractability: not intractable Qualified Code(s): G43.909 - Migraine, unspecified, not intractable, without status migrainosus (4) Hyperlipidemia Status: Chronic Qualifiers: Hyperlipidemia type: pure hypercholesterolemia Qualified Code(s): E78.00 - Pure hypercholesterolemia, unspecified; E78.0 - Pure hypercholesterolemia (5) Hypertension Status: Chronic Qualifiers: Hypertension type: essential hypertension Qualified Code(s): I10 - Essential (primary) hypertension (6) CAD (coronary artery disease) Status: Chronic Qualifiers: Coronary Disease-Associated Artery/Lesion type: unspecified vessel or lesion type [place] vs. transplanted heart: unspecified whether [place] or transplanted heart Associated angina: angina presence unspecified Qualified Code(s): I25.10 - Atherosclerotic heart disease of [place] coronary artery without angina pectoris (7) Chronic CHF Status: Chronic Qualifiers: Heart failure type: unspecified Qualified Code(s): I50.9 - Heart failure, unspecified (8) Chronic constipation Status: Chronic (9) Type II diabetes mellitus Status: Chronic Qualifiers: Diabetes mellitus oracle soa consultant insulin use: with oracle soa consultant use Diabetes mellitus complication status: with unspecified complications Qualified Code(s): E11.8 - Type 2 diabetes mellitus with unspecified complications; 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 (10) Osteoarthritis Status: Chronic Qualifiers: Osteoarthritis location: unspecified site Osteoarthritis type: unspecified Qualified Code(s): M19.90 - Unspecified osteoarthritis, unspecified site (11) Chronic back pain Status: Chronic Qualifiers: Back pain location: back pain in unspecified location Back pain laterality: unspecified Qualified Code(s): M54.9 - Dorsalgia, unspecified; G89.29 - Other chronic pain (12) Sleep apnea Status: Chronic Qualifiers: Sleep apnea type: unspecified type Qualified Code(s): G47.30 - Sleep apnea, unspecified (13) CKD (chronic kidney disease) stage 3, GFR 30-59 ml/min Status: Chronic History of Present Illness Date of Admission: 11/25/18 Chief Complaint: Mechanical Fall, anticoagulated, headache, R claros hematoma. The patient is a 73 y/o F w/ PMHx: Obesity, GERD, HTN, HLD, Chronic CHF Unclear Type, PAF, Anxiety and Depression, Seizure disorder, Diabetes mellitus type II, ERIC, CKD stage III (baseline Cr 1.2) recently discharged on 11/19/18 following admission for evaluation of delirium who now represents to the [facility] ED on 11/25/18 following accidental fall at home onto the floor and again while attempting to pull up on a drawer that pulled out causing her to fall backwards again causing her to hit her head and RLE. She has chronic OA discomfort with the L knee and since her injury she has had difficulty ambulating. She normally uses a rolling walker for ambulation assistance. Work-up in the ED included T 97.8, heart rate 84, BP 118/77, respiratory rate 14, 98% on room air, CBC with WBC 9.9, heme globin 12.1, platelet 201 without shift, unremarkable coags with INR 1.0, BMP with BUN/Cr 39/1.66, glucose 443, CT brain with moderate atrophy and periventricular white matter ischemic changes with no acute evidence of bleed, CT cervical spine with no evidence for acute fracture or subluxation with mild spondylosis most severe at C4-5 and C5-6 where there appears to be some spinal stenosis secondary to disc disease and bony hypertrophy, plain film of the right tibia and fibula with focal pretibial soft tissue swelling with no obvious acute fracture. In the ED patient administered normal saline in addition to fentanyl. Past Medical History Past Medical History (Chronic Problems): Chronic Problems Migraine (Chronic) Hyperlipidemia (Chronic) Hypertension (Chronic) Benign essential hypertension (Chronic) CAD (coronary artery disease) (Chronic) Chronic CHF (Chronic) Chronic constipation (Chronic) Type II diabetes mellitus (Chronic) Morbid obesity (Chronic) Osteoarthritis (Chronic) Spondylosis (Chronic) History of urinary incontinence (Chronic) Chronic back pain (Chronic) Sleep apnea (Chronic) CKD (chronic kidney disease) stage 3, GFR 30-59 ml/min (Chronic) Allergies atorvastatin calcium [From Lipitor] Allergy (Verified 11/25/18 19:11) dont remember codeine Allergy (Verified 11/25/18 19:11) Rash iodine Allergy (Verified 11/25/18 19:11) Rash Latex, Natural Rubber Allergy (Verified 11/25/18 19:11) Rash lovastatin Allergy (Verified 11/25/18 19:11) Rash rosuvastatin calcium [From Crestor] Allergy (Verified 11/25/18 19:11) rash\ naproxen [From Naprosyn] Adverse Reaction (Verified 11/25/18 19:11) Upset Stomach pregabalin [From Lyrica] Adverse Reaction (Verified 11/25/18 19:11) Upset Stomach Sulfa (Sulfonamide Antibiotics) Adverse Reaction (Verified 11/25/18 19:11) Upset Stomach Home Medications: Ambulatory Orders Medication Instructions Recorded Insulin Aspart [Novolog Flexpen] 24 units SC TIDCM 03/12/17 Insulin Degludec [Tresiba 76 unit SQ DAILY 10/11/17 Flextouch U-100] Metoprolol Succinate [Toprol Xl] 50 mg PO DAILY 10/11/17 levETIRAcetam tablet [Keppra 500 mg PO BID 10/11/17 tablet] Fluticasone 0.05% [Flonase Nasal 2 sprays NASAL DAILY 04/27/18 Ten Sleep] Furosemide [Lasix] 20 mg PO BID 04/27/18 Lisinopril [Zestril] 10 mg PO DAILY 04/27/18 Omeprazole 20 mg PO DAILY 04/27/18 Polyethylene Glycol 3350 [Miralax] 17 gm PO DAILY PRN 04/27/18 Prasugrel HCl 10 mg PO DAILY 06/04/18 Rivaroxaban [Xarelto] 15 mg PO DAILY 06/04/18 Simvastatin [Zocor] 40 mg PO QHS 06/04/18 Acetaminophen [Tylenol] 1,000 mg PO Q8 11/18/18 Cetirizine HCl [Zyrtec] 10 mg PO DAILY PRN 11/18/18 Duloxetine HCl 30 mg PO DAILY 11/18/18 Isosorbide Mononitrate [Isosorbide 3 tab PO DAILY 11/18/18 Mononitrate ER] Ketorolac Tromethamine [Acular] 1 drop OPHTHALMIC 4X/DAY 11/18/18 Lidocaine [Lidoderm Patch] 1 patch TOPICAL DAILY 11/18/18 Sennosides/Docusate Sodium [Senna 2 tab PO DAILY 02/06/19 Plus Tablet] prednisoLONE eye drops (1 mL) 1 drop EACH EYE 4X/DAY 11/18/18 [Pred Forte eye drops (1 mL)] Isosorbide Mononitrate [Imdur] 90 mg PO DAILY tablet 11/19/18 Surgical History: hysterectomy, - - ECI x2, thyroidectomy for goiter, left lower extremity surgery for bone cancer, pacemaker, hysterectomy. 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 Tobacco Use: Non-smoker Alcohol: None Drugs: None - *Family History Maternal History Items: - - History of alcoholic cirrhosis Paternal History Items: Cancer - Her father had colon cancer. Sibling History Items: Cancer - Her sister had ovarian cancer., Hypertension Review of Systems Constitutional: Reports: Weakness, Fatigue. Denies: Chills, Fever, Weight Change HEENT: Denies: Head Aches, Sinus Congestion, Sinus Drainage Cardiovascular: Denies: Chest Pain, Palpitations Respiratory: Denies: Cough, Shortness of breath at rest, Sputum production Gastrointestinal: Denies: Abdominal Pain, Nausea, Vomiting Genitourinary: Denies: Dysuria Musculoskeletal: Reports: Back Pain, Joint Pain, Leg Pain, Muscle pain. Denies: Joint Tenderness Skin: Reports: Skin Changes. Denies: Rash, Wounds Neurological: Denies: Numbness, Tingling, Focal weakness Psychiatric: Reports: Anxiety, Depression. Denies: Homicidal Ideations, Suicidal Ideations Hematologic/ Lymphatic: Reports: Anemia, Easy Bruising, Easy Bleeding VTE Information - Inpt Only VTE Present on Admission: No VTE Mechan Device Prophylaxis: SCD's Reason prophylaxis not ordered:: Treatment Not Indicated - On xarelto. Patient Problems: Active and Suspected Problems GRIS (acute kidney injury) (Acute) Fall (Acute) Subjective: Seated upright in ED bed, fatigued appearance, notes ongoing discomfort to the right anterior claros otherwise no acute complaints. Objective: Physical Examination: General: awake, alert, oriented x 3 and cooperative, seated upright in the ED bed in no apparent distress. Skin: normal color, turgor, no icterus, cyanosis, notable right anterior claros hematoma status post fall. HEENT: AT/NC, EOMI, PERRLA, only dry MM, no carotid bruits or JVD noted. Lungs: CTA bilaterally, moderate effort, mild decrease BL bases, no rales, ronchi or wheezing. Heart: Regular rate and rhythm; no gallop, rub audible. Abdomen: soft, obese, NTTP, ND, normal BS, no HSM; ever, habitus makes examination difficult. Extremities: no cyanosis, clubbing, bilateral ankle edema, see skin for anterior claros findings. Neurological: patient awake, alert, oriented x 3; cognitive function intact; pupils equally reactive to light and accomodation; cranial nerves II-XII grossly normal, moving all 4 extremities, no focal deficits, strength moderately globally decreased. Psychiatric: affect appears normal, no acute evidence of depressive or anxiety feelings. - Physical Exam Vital Signs Temp Pulse Resp BP Pulse Ox 97.8 F 77 18 101/58 L 96 11/25/18 19:08 11/25/18 21:20 11/25/18 21:20 11/25/18 21:20 11/25/18 21:20 Oxygen Flow Rate (L/min) 98 Oxygen Delivery Method Room Air Weight: 232 lb Body Mass Index (BMI) 39.8 Finger Stick Blood Glucose 256 Laboratory Tests Past 24 Hrs 11/25/18 11/25/18 11/25/18 20:03 20:03 20:03 WBC 9.9 RBC 5.13 Hgb 12.1 Hct 38.6 MCV 75.2 L MCH 23.6 L MCHC 31.3 L RDW 16.5 H RDW Differential 45.3 H Plt Count 201 MPV TNP Immature Gran % (Auto) 0.300 Neut % (Auto) 68.2 Lymph % (Auto) 20.6 [place] % (Auto) 6.9 Eos % (Auto) 3.7 Baso % (Auto) 0.3 Absolute Neuts (auto) 6.8 Absolute Lymphs (auto) 2.04 Total Counted Not Reportable Differential Comment SCANNED Platelet Estimate ADEQUATE Plt Morphology Comment LARGE PT 13.6 INR 1.0 APTT 28.8 Sodium 138 Potassium 4.0 Chloride 105 Carbon Dioxide 23.0 Anion Gap 10 BUN 39 H Creatinine 1.66 H Estim Creat Clear Calc 25.29 Est GFR (MDRD) Af Amer 39 L Est GFR (MDRD) Non-Af 32 L BUN/Creatinine Ratio 23.5 H Glucose 443 H Calcium 8.5 Assessment/Plan All Active Problems Cholelithiasis (Acute) Delirium (Acute) GRIS (acute kidney injury) (Acute) Fall (Acute) UTI (urinary tract infection) (Acute) Pneumococcal pneumonia (Acute) Sepsis (Acute) Hypoglycemia (Acute) Chest pain (Acute) Dehydration (Acute) UTI (urinary tract infection) (Acute) Acute delirium (Acute) Delirium (Acute) Sepsis (Acute) Acute cystitis (Acute) Influenza A (Resolved) The patient is a 73 y/o F w/ PMHx: CAD, Obesity, GERD, HTN, HLD, Chronic CHF Unclear Type, PAF, Anxiety and Depression, Seizure disorder, Diabetes mellitus type II, ERIC, CKD stage III (baseline Cr 1.2) recently discharged on 11/19/18 following admission for evaluation of delirium who now represents to the [facility] ED on 11/25/18 following accidental fall at home onto the floor and again while attempting to pull up on a drawer that pulled out causing her to fall backwards again causing her to hit her head and RLE. She has chronic OA discomfort with the L knee and since her injury she has had difficulty ambulating. (1) Mechanical Fall, Debility, RLE Anterior Claros Hematoma: Work-up in the ED included T 97.8, heart rate 84, BP 118/77, respiratory rate 14, 98% on room air, CBC with WBC 9.9, heme globin 12.1, platelet 201 without shift, unremarkable coags with INR 1.0, BMP with BUN/Cr 39/1.66, glucose 443, CT brain with moderate atrophy and periventricular white matter ischemic changes with no acute evidence of bleed, CT cervical spine with no evidence for acute fracture or subluxation with mild spondylosis most severe at C4-5 and C5-6 where there appears to be some spinal stenosis secondary to disc disease and bony hypertrophy, plain film of the right tibia and fibula with focal pretibial soft tissue swelling with no obvious acute fracture. Will maintain on MS, maintain on fall precautions, continue snug DWAIN wrap to RLE claros region given notable hematoma on anticoagulation, PRN pain regimen, PT, OT, CM for discharge planning. (2) Acute kidney injury on CKD stage III: Unclear specific etiology. Admission BUN/Cr 39/1.66, did have recent admission, medication adjustments, prior baseline creatinine noted to be 1.2. Will hydrate, hold nephrotoxic medications and repeat chemistry in AM. If no improvement would plan FeNa and renal US assessment. (3) Diabetes mellitus type II: Hold oral home regimen, continue home insulin regimen, ADA diet, accu checks w/ ISS. (4) CAD: Maintain on prasugrel, metoprolol, statin, holding DWAIN inhibitor temporarily. (5) Chronic CHF, Unclear type: Continue home prasugrel, xarelto, metoprolol, statin, temporarily holding lasix and ACEI. (6) Hypertension: Continue home regimen including isosorbide, metoprolol, holding Lasix and lisinopril temporarily given mild HPI, PRN hydralazine. (7) Hyperlipidemia: Continue home statin regimen. (8) Obesity: Weight loss and lifestyle changes encouraged, nutrition consulted. (9) Anxiety and Depression: Continue home (10) PAF: Continue home regimen xarelto, metoprolol. (11) Seizure Disorder: Continue on home keppra regimen. (12) GERD: PPI. (13) DVT Prophylaxis: SCDs, Xarelto. Code Visit OBSV E&M: [id number] Initial observation care L3
--- NOTE | 2018-11-25 22:48 | HP.PCM_ITS ---
Problem List (1) GRIS (acute kidney injury) Status: Acute (2) Fall Status: Acute Qualifiers: Encounter type: initial encounter Qualified Code(s): W19.XXXA - Unspecified fall, initial encounter (3) Migraine Status: Chronic Qualifiers: Migraine type: unspecified Status migrainosus presence: without status migrainosus Intractability: not intractable Qualified Code(s): G43.909 - Migraine, unspecified, not intractable, without status migrainosus (4) Hyperlipidemia Status: Chronic Qualifiers: Hyperlipidemia type: pure hypercholesterolemia Qualified Code(s): E78.00 - Pure hypercholesterolemia, unspecified; E78.0 - Pure hypercholesterolemia (5) Hypertension Status: Chronic Qualifiers: Hypertension type: essential hypertension Qualified Code(s): I10 - Essential (primary) hypertension (6) CAD (coronary artery disease) Status: Chronic Qualifiers: Coronary Disease-Associated Artery/Lesion type: unspecified vessel or lesion type [place] vs. transplanted heart: unspecified whether [place] or transplanted heart Associated angina: angina presence unspecified Qualified Code(s): I25.10 - Atherosclerotic heart disease of [place] coronary artery without angina pectoris (7) Chronic CHF Status: Chronic Qualifiers: Heart failure type: unspecified Qualified Code(s): I50.9 - Heart failure, unspecified (8) Chronic constipation Status: Chronic (9) Type II diabetes mellitus Status: Chronic Qualifiers: Diabetes mellitus inventory associate insulin use: with inventory associate use Diabetes mellitus complication status: with unspecified complications Qualified Code(s): E11.8 - Type 2 diabetes mellitus with unspecified complications; Z79.4 - 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 and 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 (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 of insulin (10) Osteoarthritis Status: Chronic Qualifiers: Osteoarthritis location: unspecified site Osteoarthritis type: unspecified Qualified Code(s): M19.90 - Unspecified osteoarthritis, unspecified site (11) Chronic back pain Status: Chronic Qualifiers: Back pain location: back pain in unspecified location Back pain laterality: unspecified Qualified Code(s): M54.9 - Dorsalgia, unspecified; G89.29 - Other chronic pain (12) Sleep apnea Status: Chronic Qualifiers: Sleep apnea type: unspecified type Qualified Code(s): G47.30 - Sleep apnea, unspecified (13) CKD (chronic kidney disease) stage 3, GFR 30-59 ml/min Status: Chronic History of Present Illness Date of Admission: 11/25/18 Chief Complaint: Mechanical Fall, anticoagulated, headache, R claros hematoma. The patient is a 73 y/o F w/ PMHx: Obesity, GERD, HTN, HLD, Chronic CHF Unclear Type, PAF, Anxiety and Depression, Seizure disorder, Diabetes mellitus type II, ERIC, CKD stage III (baseline Cr 1.2) recently discharged on 11/19/18 following admission for evaluation of delirium who now represents to the [facility] ED on 11/25/18 following accidental fall at home onto the floor and again while attempting to pull up on a drawer that pulled out causing her to fall backwards again causing her to hit her head and RLE. She has chronic OA discomfort with the L knee and since her injury she has had difficulty ambulating. She normally uses a rolling walker for ambulation assistance. Work-up in the ED included T 97.8, heart rate 84, BP 118/77, respiratory rate 14, 98% on room air, CBC with WBC 9.9, heme globin 12.1, platelet 201 without shift, unremarkable coags with INR 1.0, BMP with BUN/Cr 39/1.66, glucose 443, CT brain with moderate atrophy and periventricular white matter ischemic changes with no acute evidence of bleed, CT cervical spine with no evidence for acute fracture or subluxation with mild spondylosis most severe at C4-5 and C5-6 where there appears to be some spinal s tenosis secondary to disc disease and bony hypertrophy, plain film of the right tibia and fibula with focal pretibial soft tissue swelling with no obvious acute fracture. In the ED patient administered normal saline in addition to fentanyl. Past Medical History Past Medical History (Chronic Problems): Chronic Problems Migraine (Chronic) Hyperlipidemia (Chronic) Hypertension (Chronic) Benign essential hypertension (Chronic) CAD (coronary artery disease) (Chronic) Chronic CHF (Chronic) Chronic constipation (Chronic) Type II diabetes mellitus (Chronic) Morbid obesity (Chronic) Osteoarthritis (Chronic) Spondylosis (Chronic) History of urinary incontinence (Chronic) Chronic back pain (Chronic) Sleep apnea (Chronic) CKD (chronic kidney disease) stage 3, GFR 30-59 ml/min (Chronic) Allergies atorvastatin calcium [From Lipitor] Allergy (Verified 11/25/18 19:11) dont remember codeine Allergy (Verified 11/25/18 19:11) Rash iodine Allergy (Verified 11/25/18 19:11) Rash Latex, Natural Rubber Allergy (Verified 11/25/18 19:11) Rash lovastatin Allergy (Verified 11/25/18 19:11) Rash rosuvastatin calcium [From Crestor] Allergy (Verified 11/25/18 19:11) rash\ naproxen [From Naprosyn] Adverse Reaction (Verified 11/25/18 19:11) Upset Stomach pregabalin [From Lyrica] Adverse Reaction (Verified 11/25/18 19:11) Upset Stomach Sulfa (Sulfonamide Antibiotics) Adverse Reaction (Verified 11/25/18 19:11) Upset Stomach Home Medications: Ambulatory Orders Medication Instructions Recorded Insulin Aspart [Novolog Flexpen] 24 units SC TIDCM 03/12/17 Insulin Degludec [Tresiba 76 unit SQ DAILY 10/11/17 Flextouch U-100] Metoprolol Succinate [Toprol Xl] 50 mg PO DAILY 10/11/17 levETIRAcetam tablet [Keppra 500 mg PO BID 10/11/17 tablet] Fluticasone 0.05% [Flonase Nasal 2 sprays NASAL DAILY 04/27/18 [place]] Furosemide [Lasix] 20 mg PO BID 04/27/18 Lisinopril [Zestril] 10 mg PO DAILY 04/27/18 Omeprazole 20 mg PO DAILY 04/27/18 Polyethylene Glycol 3350 [Miralax] 17 gm PO DAILY PRN 04/27/18 Prasugrel HCl 10 mg PO DAILY 06/04/18 Rivaroxaban [Xarelto] 15 mg PO DAILY 06/04/18 Simvastatin [Zocor] 40 mg PO QHS 06/04/18 Acetaminophen [Tylenol] 1,000 mg PO Q8 11/18/18 Cetirizine HCl [Zyrtec] 10 mg PO DAILY PRN 11/18/18 Duloxetine HCl 30 mg PO DAILY 11/18/18 Isosorbide Mononitrate [Isosorbide 3 tab PO DAILY 11/18/18 Mononitrate ER] Ketorolac Tromethamine [Acular] 1 drop OPHTHALMIC 4X/DAY 11/18/18 Lidocaine [Lidoderm Patch] 1 patch TOPICAL DAILY 11/18/18 Sennosides/Docusate Sodium [Senna 2 tab PO DAILY 11/18/18 Plus Tablet] prednisoLONE eye drops (1 mL) 1 drop EACH EYE 4X/DAY 11/18/18 [Pred Forte eye drops (1 mL)] Isosorbide Mononitrate [Imdur] 90 mg PO DAILY tablet 11/19/18 Surgical History: hysterectomy, - - ECI x2, thyroidectomy for goiter, left lower extremity surgery for bone cancer, pacemaker, hysterectomy. Psychiatric History: Anxiety, Depression SIDE SAWYER History: No pertinent SIDE SAWYER history Lives: Alone Smoking Status: Former smoker - Quit cigarette tobacco usage approximately 40 years prior. Tobacco Use: Non-smoker Alcohol: None Drugs: None - *Family History Maternal History Items: - - History of alcoholic cirrhosis Paternal History Items: Cancer - Her father had colon cancer. Sibling History Items: Cancer - Her sister had ovarian cancer., Hypertension Review of Systems Constitutional: Reports: Weakness, Fatigue. Denies: Chills, Fever, Weight Change HEENT: Denies: Head Aches, Sinus Congestion, Sinus Drainage Cardiovascular: Denies: Chest Pain, Palpitations Respiratory: Denies: Cough, Shortness of breath at rest, Sputum production Gastrointestinal: Denies: Abdominal Pain, Nausea, Vomiting Genitourinary: Denies: Dysuria Musculoskeletal: Reports: Back Pain, Joint Pain, Leg Pain, Muscle pain. Denies: Joint Tenderness Skin: Reports: Skin Changes. Denies: Rash, Wounds Neurological: Denies: Numbness, Tingling, Focal weakness Psychiatric: Reports: Anxiety, Depression. Denies: Homicidal Ideations, Suicidal Ideations Hematologic/ Lymphatic: Reports: Anemia, Easy Bruising, Easy Bleeding VTE Information - Inpt Only VTE Present on Admission: No VTE Mechan Device Prophylaxis: SCD's Reason prophylaxis not ordered:: Treatment Not Indicated - On xarelto. Patient Problems: Active and Suspected Problems GRIS (acute kidney injury) (Acute) Fall (Acute) Subjective: Seated upright in ED bed, fatigued appearance, notes ongoing discomfort to the right anterior claros otherwise no acute complaints. Objective: Physical Examination: General: awake, alert, oriented x 3 and cooperative, seated upright in the ED bed in no apparent distress. Skin: normal color, turgor, no icterus, cyanosis, notable right anterior claros hematoma status post fall. HEENT: AT/NC, EOMI, PERRLA, only dry MM, no carotid bruits or JVD noted. Lungs: CTA bilaterally, moderate effort, mild decrease BL bases, no rales, ronchi or wheezing. Heart: Regular rate and rhythm; no gallop, rub audible. Abdomen: soft, obese, NTTP, ND, normal BS, no HSM; ever, habitus makes examination difficult. Extremities: no cyanosis, clubbing, bilateral ankle edema, see skin for anterior claros findings. Neurological: patient awake, alert, oriented x 3; cognitive function intact; pupils equally reactive to light and accomodation; cranial nerves II-XII grossly normal, moving all 4 extremities, no focal deficits, strength moderately globally decreased. Psychiatric: affect appears normal, no acute evidence of depressive or anxiety feelings. - Physical Exam Vital Signs Temp Pulse Resp BP Pulse Ox 97.8 F 77 18 101/58 L 96 11/25/18 19:08 11/25/18 21:20 11/25/18 21:20 11/25/18 21:20 11/25/18 21:20 Oxygen Flow Rate (L/min) 98 Oxygen Delivery Method Room Air Weight: 232 lb Body Mass Index (BMI) 39.8 Finger Stick Blood Glucose 256 Laboratory Tests Past 24 Hrs 11/25/18 11/25/18 11/25/18 20:03 20:03 20:03 WBC 9.9 RBC 5.13 Hgb 12.1 Hct 38.6 MCV 75.2 L MCH 23.6 L MCHC 31.3 L RDW 16.5 H RDW Differential 45.3 H Plt Count 201 MPV TNP Immature Gran % (Auto) 0.300 Neut % (Auto) 68.2 Lymph % (Auto) 20.6 [place] % (Auto) 6.9 Eos % (Auto) 3.7 Baso % (Auto) 0.3 Absolute Neuts (auto) 6.8 Absolute Lymphs (auto) 2.04 Total Counted Not Reportable Differential Comment SCANNED Platelet Estimate ADEQUATE Plt Morphology Comment LARGE PT 13.6 INR 1.0 APTT 28.8 Sodium 138 Potassium 4.0 Chloride 105 Carbon Dioxide 23.0 Anion Gap 10 BUN 39 H Creatinine 1.66 H Estim Creat Clear Calc 25.29 Est GFR (MDRD) Af Amer 39 L Est GFR (MDRD) Non-Af 32 L BUN/Creatinine Ratio 23.5 H Glucose 443 H Calcium 8.5 Assessment/Plan All Active Problems Cholelithiasis (Acute) Delirium (Acute) GRIS (acute kidney injury) (Acute) Fall (Acute) UTI (urinary tract infection) (Acute) Pneumococcal pneumonia (Acute) Sepsis (Acute) Hypoglycemia (Acute) Chest pain (Acute) Dehydration (Acute) UTI (urinary tract infection) (Acute) Acute delirium (Acute) Delirium (Acute) Sepsis (Acute) Acute cystitis (Acute) Influenza A (Resolved) The patient is a 73 y/o F w/ PMHx: CAD, Obesity, GERD, HTN, HLD, Chronic CHF Unclear Type, PAF, Anxiety and Depression, Seizure disorder, Diabetes mellitus type II, ERIC, CKD stage III (baseline Cr 1.2) recently discharged on 11/19/18 following admission for evaluation of delirium who now represents to the [facility] ED on 11/25/18 following accidental fall at home onto the floor and again while attempting to pull up on a drawer that pulled out causing her to fall backwards again causing her to hit her head and RLE. She has chronic OA discomfort with the L knee and since her injury she has had difficulty ambulating. (1) Mechanical Fall, Debility, RLE Anterior Claros Hematoma: Work-up in the ED included T 97.8, heart rate 84, BP 118/77, respiratory rate 14, 98% on room air, CBC with WBC 9.9, heme globin 12.1, platelet 201 without shift, unremarkable coags with INR 1.0, BMP with BUN/Cr 39/1.66, glucose 443, CT brain with moderate atrophy and periventricular white matter ischemic changes with no acute evidence of bleed, CT cervical spine with no evidence for acute fracture or subluxation with mild spondylosis most severe at C4-5 and C5-6 where there appears to be some spinal stenosis secondary to disc disease and bony hypertrophy, plain film of the right tibia and fibula with focal pretibial soft tissue swelling with no obvious acute fracture. Will maintain on MS, maintain on fall precautions, continue snug DWAIN wrap to RLE claros region given notable hematoma on anticoagulation, PRN pain regimen, PT, OT, CM for discharge planning. (2) Acute kidney injury on CKD stage III: Unclear specific etiology. Admission BUN/Cr 39/1.66, did have recent admission, medication adjustments, prior baseline creatinine noted to be 1.2. Will hydrate, hold nephrotoxic medications and repeat chemistry in AM. If no improvement would plan FeNa and renal US assessment. (3) Diabetes mellitus type II: Hold oral home regimen, continue home insulin regimen, ADA diet, accu checks w/ ISS. (4) CAD: Maintain on prasugrel, metoprolol, statin, holding DWAIN inhibitor temporarily. (5) Chronic CHF, Unclear type: Continue home prasugrel, xarelto, metoprolol, statin, temporarily holding lasix and ACEI. (6) Hypertension: Continue home regimen including isosorbide, metoprolol, holding Lasix and lisinopril temporarily given mild HPI, PRN hydralazine. (7) Hyperlipidemia: Continue home statin regimen. (8) Obesity: Weight loss and lifestyle changes encouraged, nutrition consulted. (9) Anxiety and Depression: Continue home (10) PAF: Continue home regimen xarelto, metoprolol. (11) Seizure Disorder: Continue on home keppra regimen. (12) GERD: PPI. (13) DVT Prophylaxis: SCDs, Xarelto. Code Visit OBSV E&M: 85892 Initial observation care L3
[2018-11-26] VITALS (7 sets, daily range): BP systolic 131–160; BP diastolic 68–78; PULSE 67–96; RESP 16–18; TEMP 36.2–36.5; O2SAT 96–100; BMI 35.8
[2018-11-26 01:20] LABS: Magnesium 1.9 mg/dL (1.6-2.6)
[2018-11-26 01:26] LABS: Bedside Glucose 304 mg/dL (70-110)
[2018-11-26] MEDS: 0.9% Normal Saline 1,000 ML 100 ML IV (06:30)
[2018-11-26] MEDS: Acetaminophen 500 MG Tablet 1000 MG PO ×3 (06:32→21:58)
[2018-11-26] MEDS: Insulin Lispro 100 UNIT/ML INSULN.PEN SC ×3 (06:38→21:59)
[2018-11-26 06:45] LABS: Anion Gap 7 (5-15); BUN 33 mg/dL (7-18); BUN/Creat Ratio 25.6 RATIO (10-20); Calcium,Total 8.1 mg/dL (8.5-10.1); Chloride 109 mmol/L (98-107); Creatinine, Serum 1.29 mg/dL (0.55-1.02); EST Glomerular Filtration Rate 43 mL/min (>60); Est Glom Filt Rate - Afr Amer 52 mL/min (>60); Estimated Creatinine Clearance 32.54 ml/min; Glucose 239 mg/dL (74-106); Potassium 3.7 mmol/L (3.5-5.1); Sodium Level 142 mmol/L (136-145)
[2018-11-26 06:46] LABS: Bedside Glucose 219 mg/dL (70-110)
[2018-11-26 06:54] LABS: Absolute Lymphocyte Count 2.15 X10^3/ul (0.83-4.51); Absolute Neutrophil Count 5.4 X10^3/uL (2.0-7.7); Basophil# 0.02 X10^3/uL; Basophil% 0.2 % (0-1); Eosinophil# 0.35 X10^3/uL; Eosinophils% 4.1 % (0-5); Hematocrit 36.6 % (37-47); Hemoglobin 11.4 g/dl (12.0-15.0); Lymphocyte # 2.15 X10^3/ul (4.0); Lymphocyte % 25.1 % (19-41); Mean Corp Hgb Conc 31.1 g/gl (32-36); Mean Corpuscular Hgb 23.5 pg (27.0-32.0); Mean Corpuscular Volume 75.5 fL (81-99); Monocyte# 0.69 X10^3/uL; Neutrophil # 5.36 X10^3/uL (2.7-7.7); Neutrophil % 62.5 % (47-70); Platelet Count 158 K/mm3 (150-450); RBC Distribution Width CV 16.3 % (11.6-14.6); RBC Distribution Width SD 44.4 fl (35.1-43.9); Red Blood Count 4.85 M/mm3 (4.2-5.4); White Blood Count 8.6 K/mm3 (4.4-11.0)
[2018-11-26 07:06] LABS: Differential Indicated SCAN CRITERIA MET; POSITIVE COUNT NO; POSITIVE DIFFERENTIAL NO; POSITIVE MORPHOLOGY YES
[2018-11-26 07:19] LABS: Differential Comment SCAN
[2018-11-26 07:20] LABS: Platelet Estimate ADEQUATE (ADEQ); Platelet Morphology LARGE
[2018-11-26] MEDS: Glucerna Shake 120 ML LIQUID PO ×3 (09:00→18:03)
[2018-11-26] MEDS: Insulin Lispro 100 UNIT/ML INSULN.PEN 24 UNIT SC ×3 (09:01→18:03)
[2018-11-26] MEDS: DULoxetine Hcl 30 MG Capsule PO (09:01)
[2018-11-26] MEDS: Fluticasone 0.05% 1 SPRAY NASAL.SRY 2 SPRAY NASAL (09:02)
[2018-11-26] MEDS: Isosorbide Mononitrate 30 MG Tablet 90 MG PO (09:02)
[2018-11-26] MEDS: levETIRAcetam 500 MG Tablet PO ×2 (09:02→21:58)
[2018-11-26] MEDS: Metoprolol(XL)Succ 50 MG Tablet PO (09:05)
[2018-11-26] MEDS: Senna/Docusate Sodium 1 Tablet PO (09:05)
[2018-11-26] MEDS: Pantoprazole Sodium 20 MG Tablet PO (09:05)
[2018-11-26] MEDS: Rivaroxaban 15 MG Tablet PO (09:06)
[2018-11-26] MEDS: Lidocaine 5% Patch 1 PATCH TOPICAL (09:09)
[2018-11-26 11:52] LABS: Bedside Glucose 374 mg/dL (70-110)
--- NOTE | 2018-11-26 12:00 | CASEMGMT ---
Social Work Note SW familiar with pt as pt was just at [facility] last week. SW met with pt, introduced self and role at [facility]. Pt is alert and orientated x3. Pt states that she was trying to get into her cabinet at home and the floor was wet and she ended up falling. Pt states that this is her first time falling. Per previous notes, pt has emergency response button, [facility] aides T, Th 2 hours each day for personal care and M,W,F 2 hours each day for homemaker services. Pt was also set up with [facility] for [facility]. PT/OT worked with pt and are recommending SNF/Further skilled therapy. SW updated pt of this. Pt states that she was at [facility] two years ago and is agreeable to returning. Pt states I am not staying there forever. SW informed pt that it can be short term rehab and pt can leave when she wants to. Pt states understanding. MINAL faxed referral to [facility]. MINAL placed a call to Fabiana at [facility] and informed her of referral. Fabiana to review referral. MINAL placed a call to Toshia Banda at [facility] and left her a message informing her of pt's admission. MINAL placed a call to [facility] and spoke with Daria and updated her on pt's admission to [facility]. 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
--- NOTE | 2018-11-26 12:38 | PCM.PN.HOSP ---
Patient Problems: Active and Suspected Problems GRIS (acute kidney injury) (Acute) Fall (Acute) Subjective: Patient seen and examined. She complained of feeling tired all over on account of her having little sleep during the night. Pain is well controlled. She was admitted after sustained a thigh hematoma formed after a fall. She states that this is her first time of falling. She does live alone. Review of systems otherwise negative. Labs and vitals reviewed. Vitals/I&O's: Vital Signs Temp Pulse Resp BP Pulse Ox 97.7 F L 67 18 131/71 H 97 11/26/18 08:46 11/26/18 09:05 11/26/18 08:46 11/26/18 09:05 11/26/18 08:46 Oxygen Flow Rate (L/min) 98 Oxygen Delivery Method Room Air Weight: 208 lb 8.917 oz Body Mass Index (BMI) 35.8 Finger Stick Blood Glucose 256 Intake and Output for Last 24 Hours 11/24/18 11/25/18 11/26/18 23:59 23:59 23:59 Intake Total 1312 / 1312 Balance 1312 / 1312 General: Alert, Oriented x3, Cooperative, No apparent distress, Lethargic HEENT: Atraumatic, PERRLA, EOMI, Normocephalic Oral: Moist Mucosa Neck: Supple, No JVD, Negative Carotid Bruits Lungs: Clear to auscultation, Normal air movement, No rhonchi, No wheeze Cardiovascular: Regular rate, Regular Rhythm, Normal S1, Normal S2, No murmurs Abdomen: Bowel Sounds Present, Soft, Non Tender, Non-Distended, No Hepato-splenomegaly Extremities: No clubbing, No cyanosis, No edema, Capillary Refill Less than 3 Seconds, - - both LEs in LUKAS bandage. swelling over right anterior thigh due to hematoma, mildly tender. Skin: No rashes, No breakdown Musculoskeletal: No Muscle Wasting, Tenderness - as under extremities Lymphatic: No Cervical, Supraclavicular, or Inguinal Adenopathy Neurological: Cranial nerves II-XII grossly intact, Neuro grossly intact Psych/Mental Status: Normal Affect, Appropriate, Alert and oriented to time, place, person, mood and affect Laboratory Results 11/25/18 20:03: WBC 9.9, RBC 5.13, Hgb 12.1, Hct 38.6, MCV 75.2 L, MCH 23.6 L, MCHC 31.3 L, RDW 16.5 H, RDW Differential 45.3 H, Plt Count 201, MPV TNP, Immature Gran % (Auto) 0.300, Neut % (Auto) 68.2, Lymph % (Auto) 20.6, [place] % (Auto) 6.9, Eos % (Auto) 3.7, Baso % (Auto) 0.3, Absolute Neuts (auto) 6.8, Absolute Lymphs (auto) 2.04, Total Counted Not Reportable, Differential Comment SCANNED, Platelet Estimate ADEQUATE, Plt Morphology Comment LARGE 11/25/18 20:03: PT 13.6, INR 1.0, APTT 28.8 11/25/18 20:03: Sodium 138, Potassium 4.0, Chloride 105, Carbon Dioxide 23.0, Anion Gap 10, BUN 39 H, Creatinine 1.66 H, Estim Creat Clear Calc 25.29, Est GFR (MDRD) Af Amer 39 L, Est GFR (MDRD) Non-Af 32 L, BUN/Creatinine Ratio 23.5 H, Glucose 443 H, Calcium 8.5 11/25/18 20:03: Magnesium 1.9 11/26/18 01:18: POC Glucose 304 H 11/26/18 05:40: Sodium 142, Potassium 3.7, Chloride 109 H, Carbon Dioxide 26.0, Anion Gap 7, BUN 33 H, Creatinine 1.29 H, Estim Creat Clear Calc 32.54, Est GFR (MDRD) Af Amer 52 L, Est GFR (MDRD) Non-Af 43 L, BUN/Creatinine Ratio 25.6 H, Glucose 239 H, Calcium 8.1 L 11/26/18 05:40: WBC 8.6, RBC 4.85, Hgb 11.4 L, Hct 36.6 L, MCV 75.5 L, MCH 23.5 L, MCHC 31.1 L, RDW 16.3 H, RDW Differential 44.4 H, Plt Count 158, Immature Gran % (Auto) 0.100, Neut % (Auto) 62.5, Lymph % (Auto) 25.1, [place] % (Auto) 8.0, Eos % (Auto) 4.1, Baso % (Auto) 0.2, Absolute Neuts (auto) 5.4, Absolute Lymphs (auto) 2.15, Total Counted Not Reportable, Differential Comment SCAN, Platelet Estimate ADEQUATE, Plt Morphology Comment LARGE 11/26/18 06:35: POC Glucose 219 H 11/26/18 11:46: POC Glucose 374 H Diagnostic Data Brain CT 11/25/18 19:55 IMPRESSION: Moderate atrophy and periventricular white matter ischemic changes. No evidence for acute bleed. Electronically Signed: Cristian Kam MD at 21:00 EST , Service support , Cervical Spine CT 11/25/18 19:55 IMPRESSION: No evidence for acute fracture or subluxation Mild spondylosis most severe at C4-5 and C5-6 where there appears to be spinal stenosis secondary to disc disease and bony hypertrophy. MRI would be useful for further assessment if clinically indicated Electronically Signed: Cristian Kam MD at 21:04 EST , Service support , Tibia/Fibula X-Ray 11/25/18 19:55 IMPRESSION: Focal pretibial soft tissue swelling without evidence for fracture Electronically Signed: Cristian Kam MD at 21:05 EST , Service support , Current Medications Acetaminophen (Tylenol) 1,000 mg PO Q8 [facility] Last Admin: 11/26/18 06:32 Dose: 1,000 mg Al Hydroxide/Mg Hydroxide (Mylanta Ii) 30 ml PO Q6H PRN PRN PRN Reason: Gastric burning Duloxetine HCl (Cymbalta) 30 mg PO DAILY [facility] Last Admin: 11/26/18 09:01 Dose: 30 mg Fentanyl Citrate (Sublimaze (100mcg Ampule)) 25 mcg IV Q4H PRN PRN PRN Reason: moderate to severe pain Fluticasone Propionate (Flonase Nasal [place]) 2 spray NASAL DAILY [facility] Last Admin: 11/26/18 09:02 Dose: 2 spray Hydralazine HCl (Apresoline Iv) 10 mg IV Q4H PRN PRN PRN Reason: SBP > 160 Insulin Glargine (Lantus (Bkc)) 76 units SC DAILY [facility] Last Admin: 11/26/18 09:04 Dose: 76 units Insulin Human Lispro (Humalog Kwikpen (Bkc)) 0 unit SC ACHS [facility]; Protocol Last Admin: 11/26/18 12:30 Dose: 6 units Insulin Human Lispro (Humalog Kwikpen (Bkc)) 24 unit SC TIDCM [facility] Last Admin: 11/26/18 12:30 Dose: 24 units Isosorbide Mononitrate (Imdur) 90 mg PO DAILY [facility] Last Admin: 11/26/18 09:02 Dose: 90 mg Levetiracetam (Keppra Tablet) 500 mg PO BID [facility] Last Admin: 11/26/18 09:02 Dose: 500 mg Lidocaine (Lidoderm Patch) 1 patch TOPICAL DAILY [facility]; Protocol Last Admin: 11/26/18 09:09 Dose: 1 patch Loratadine (Claritin) 10 mg PO DAILY PRN PRN PRN Reason: ALLERGIES Magnesium Hydroxide (Milk Of Magnesia) 30 ml PO DAILY PRN PRN PRN Reason: Constipation Metoprolol Succinate (Toprol Xl (Beta Susy)) 50 mg PO DAILY [facility] Last Admin: 11/26/18 09:05 Dose: 50 mg Nutritional Formula (Lactose Free) (Glucerna Shake) 120 ml PO TIDCM [facility] Last Admin: 11/26/18 12:29 Dose: 120 ml Ondansetron HCl (Zofran) 4 mg IV Q8H PRN PRN PRN Reason: NAUSEA/VOMITING Pantoprazole Sodium (Protonix) 20 mg PO DAILY [facility] Last Admin: 11/26/18 09:05 Dose: 20 mg Polyethylene Glycol (Miralax) 17 gm PO DAILY PRN PRN PRN Reason: Constipation Prasugrel (Effient) 10 mg PO DAILY [facility] Last Admin: 11/26/18 09:01 Dose: 10 mg Prednisolone Acetate (Pred Forte Eye Drops (5 Ml)) 1 drop EACH EYE 4X/DAY [facility] Last Admin: 11/26/18 10:00 Dose: Not Given Rivaroxaban (Xarelto) 15 mg PO DAILY [facility] Last Admin: 11/26/18 09:06 Dose: 15 mg Senna/Docusate Sodium (Senokot-S, Zamzam-Colace) 1 tablet PO DAILY [facility] Last Admin: 11/26/18 09:05 Dose: 1 tablet Simvastatin (Zocor) 40 mg PO QHS [facility] Sodium Chloride () 5 - 15 ml IV UD PRN PRN Reason: SALINE FLUSH Medical Necessity - Tobacco Use Smoking Status: Former smoker Tobacco Use: Non-smoker Assessment/Plan All Active Problems Cholelithiasis (Acute) Delirium (Acute) GRIS (acute kidney injury) (Acute) Fall (Acute) UTI (urinary tract infection) (Acute) Pneumococcal pneumonia (Acute) Sepsis (Acute) Hypoglycemia (Acute) Chest pain (Acute) Dehydration (Acute) UTI (urinary tract infection) (Acute) Acute delirium (Acute) Delirium (Acute) Sepsis (Acute) Acute cystitis (Acute) Influenza A (Resolved) 1. Right anterior LE hematoma due to mechanical fall stable RLE wrapped in lukas bandage fall precautions hemodynamically stable; hb is 11.4 CT brain was negative, xray of right tibia and dibula showed focal pretibial soft tissue swelling with no obvious acute fracture Continue pain meds. Continue Lukas wrapping of right lower extremity due to hematoma as she has a history of being on anticoagulation PT OT on board 2. AK I on CKD stage III: Creatinine is 1.6 on admission, is now down to 1.29. Baseline creatinine is around 1.2. Currently being hydrated. Will DC hydration on account of history of heart failure. Encourage oral hydration 3. Diabetes mellitus type 2: On insulin 76 units daily and insulin lispro. Insulin sliding scale. Accu-Cheks AC at bedtime 4. CAD: on metoprolol, statin and Prasugrel. Also on LUKAS inhibitor. 5. Heart failure with unknown EF: EF not known. On Xarelto, metoprolol. Lasix and LUKAS inhibitor were held on admission due to AK. Will resume as creatinine is back to baseline. 6. Hypertension: On Imdur, metoprolol. Will resume Lasix and lisinopril 7. Hyperlipidemia: On statin 8.Anxiety and depression: 9. Paroxysmal A. fib: On Xarelto and metoprolol. Will closely monitor hematoma and if it enlarges, will hold Xarelto 10. Seizure disorder: On Keppra 11. GERD: PPI DVT prophylaxis: Xarelto Code Visit OBSV E&M: 17412 Subsequent observation care L3
--- NOTE | 2018-11-26 12:43 | PN_ITS ---
Patient Problems: Active and Suspected Problems GRIS (acute kidney injury) (Acute) Fall (Acute) Subjective: Patient seen and examined. She complained of feeling tired all over on account of her having little sleep during the night. Pain is well controlled. She was admitted after sustained a thigh hematoma formed after a fall. She states that this is her first time of falling. She does live alone. Review of systems otherwise negative. Labs and vitals reviewed. Vitals/I&O's: Vital Signs Temp Pulse Resp BP Pulse Ox 97.7 F L 67 18 131/71 H 97 11/26/18 08:46 11/26/18 09:05 11/26/18 08:46 11/26/18 09:05 11/26/18 08:46 Oxygen Flow Rate (L/min) 98 Oxygen Delivery Method Room Air Weight: 208 lb 8.917 oz Body Mass Index (BMI) 35.8 Finger Stick Blood Glucose 256 Intake and Output for Last 24 Hours 11/24/18 11/25/18 11/26/18 23:59 23:59 23:59 Intake Total 1312 / 1312 Balance 1312 / 1312 General: Alert, Oriented x3, Cooperative, No apparent distress, Lethargic HEENT: Atraumatic, PERRLA, EOMI, Normocephalic Oral: Moist Mucosa Neck: Supple, No JVD, Negative Carotid Bruits Lungs: Clear to auscultation, Normal air movement, No rhonchi, No wheeze Cardiovascular: Regular rate, Regular Rhythm, Normal S1, Normal S2, No murmurs Abdomen: Bowel Sounds Present, Soft, Non Tender, Non-Distended, No Hepato- splenomegaly Extremities: No clubbing, No cyanosis, No edema, Capillary Refill Less than 3 Seconds, - - both LEs in LUKAS bandage. swelling over right anterior thigh due to hematoma, mildly tender. Skin: No rashes, No breakdown Musculoskeletal: No Muscle Wasting, Tenderness - as under extremities Lymphatic: No Cervical, Supraclavicular, or Inguinal Adenopathy Neurological: Cranial nerves II-XII grossly intact, Neuro grossly intact Psych/Mental Status: Normal Affect, Appropriate, Alert and oriented to time, place, person, mood and affect Laboratory Results 11/25/18 20:03: WBC 9.9, RBC 5.13, Hgb 12.1, Hct 38.6, MCV 75.2 L, MCH 23.6 L, MCHC 31.3 L, RDW 16.5 H, RDW Differential 45.3 H, Plt Count 201, MPV TNP, Immature Gran % (Auto) 0.300, Neut % (Auto) 68.2, Lymph % (Auto) 20.6, Harney % (Auto) 6.9, Eos % (Auto) 3.7, Baso % (Auto) 0.3, Absolute Neuts (auto) 6.8, Absolute Lymphs (auto) 2.04, Total Counted Not Reportable, Differential Comment SCANNED, Platelet Estimate ADEQUATE, Plt Morphology Comment LARGE 11/25/18 20:03: PT 13.6, INR 1.0, APTT 28.8 11/25/18 20:03: Sodium 138, Potassium 4.0, Chloride 105, Carbon Dioxide 23.0, Anion Gap 10, BUN 39 H, Creatinine 1.66 H, Estim Creat Clear Calc 25.29, Est GFR (MDRD) Af Amer 39 L, Est GFR (MDRD) Non-Af 32 L, BUN/Creatinine Ratio 23.5 H, Glucose 443 H, Calcium 8.5 11/25/18 20:03: Magnesium 1.9 11/26/18 01:18: POC Glucose 304 H 11/26/18 05:40: Sodium 142, Potassium 3.7, Chloride 109 H, Carbon Dioxide 26.0, Anion Gap 7, BUN 33 H, Creatinine 1.29 H, Estim Creat Clear Calc 32.54, Est GFR (MDRD) Af Amer 52 L, Est GFR (MDRD) Non-Af 43 L, BUN/Creatinine Ratio 25.6 H, Glucose 239 H, Calcium 8.1 L 11/26/18 05:40: WBC 8.6, RBC 4.85, Hgb 11.4 L, Hct 36.6 L, MCV 75.5 L, MCH 23.5 L, MCHC 31.1 L, RDW 16.3 H, RDW Differential 44.4 H, Plt Count 158, Immature Gran % (Auto) 0.100, Neut % (Auto) 62.5, Lymph % (Auto) 25.1, Harney % (Auto) 8.0, Eos % (Auto) 4.1, Baso % (Auto) 0.2, Absolute Neuts (auto) 5.4, Absolute Lymphs (auto) 2.15, Total Counted Not Reportable, Differential Comment SCAN, Platelet Estimate ADEQUATE, Plt Morphology Comment LARGE 11/26/18 06:35: POC Glucose 219 H 11/26/18 11:46: POC Glucose 374 H Diagnostic Data Brain CT 11/25/18 19:55 IMPRESSION: Moderate atrophy and periventricular white matter ischemic changes. No evidence for acute bleed. Electronically Signed: Cristian Kam MD at 21:00 EST , Service support , Cervical Spine CT 11/25/18 19:55 IMPRESSION: No evidence for acute fracture or subluxation Mild spondylosis most severe at C4-5 and C5-6 where there appears to be spinal stenosis secondary to disc disease and bony hypertrophy. MRI would be useful for further assessment if clinically indicated Electronically Signed: Cristian Kam MD at 21:04 EST , Service support , Tibia/Fibula X-Ray 11/25/18 19:55 IMPRESSION: Focal pretibial soft tissue swelling without evidence for fracture Electronically Signed: Cristian Kam MD at 21:05 EST , Service support , Current Medications Acetaminophen (Tylenol) 1,000 mg PO Q8 COUNT INCLUDES THE [facility] Last Admin: 11/26/18 06:32 Dose: 1,000 mg Al Hydroxide/Mg Hydroxide (Mylanta Ii) 30 ml PO Q6H PRN PRN PRN Reason: Gastric burning Duloxetine HCl (Cymbalta) 30 mg PO DAILY COUNT INCLUDES THE [facility] Last Admin: 11/26/18 09:01 Dose: 30 mg Fentanyl Citrate (Sublimaze (100mcg Ampule)) 25 mcg IV Q4H PRN PRN PRN Reason: moderate to severe pain Fluticasone Propionate (Flonase Nasal [place]) 2 spray NASAL DAILY COUNT INCLUDES THE [facility] Last Admin: 11/26/18 09:02 Dose: 2 spray Hydralazine HCl (Apresoline Iv) 10 mg IV Q4H PRN PRN PRN Reason: SBP > 160 Insulin Glargine (Lantus (Bkc)) 76 units SC DAILY COUNT INCLUDES THE [facility] Last Admin: 11/26/18 09:04 Dose: 76 units Insulin Human Lispro (Humalog Kwikpen (Bkc)) 0 unit SC ACHS COUNT INCLUDES THE [facility]; Protocol Last Admin: 11/26/18 12:30 Dose: 6 units Insulin Human Lispro (Humalog Kwikpen (Bkc)) 24 unit SC TIDCM COUNT INCLUDES THE [facility] Last Admin: 11/26/18 12:30 Dose: 24 units Isosorbide Mononitrate (Imdur) 90 mg PO DAILY COUNT INCLUDES THE [facility] Last Admin: 11/26/18 09:02 Dose: 90 mg Levetiracetam (Keppra Tablet) 500 mg PO BID COUNT INCLUDES THE [facility] Last Admin: 11/26/18 09:02 Dose: 500 mg Lidocaine (Lidoderm Patch) 1 patch TOPICAL DAILY COUNT INCLUDES THE [facility]; Protocol Last Admin: 11/26/18 09:09 Dose: 1 patch Loratadine (Claritin) 10 mg PO DAILY PRN PRN PRN Reason: ALLERGIES Magnesium Hydroxide (Milk Of Magnesia) 30 ml PO DAILY PRN PRN PRN Reason: Constipation Metoprolol Succinate (Toprol Xl (Beta Susy)) 50 mg PO DAILY COUNT INCLUDES THE [facility] Last Admin: 11/26/18 09:05 Dose: 50 mg Nutritional Formula (Lactose Free) (Glucerna Shake) 120 ml PO TIDCM COUNT INCLUDES THE [facility] Last Admin: 11/26/18 12:29 Dose: 120 ml Ondansetron HCl (Zofran) 4 mg IV Q8H PRN PRN PRN Reason: NAUSEA/VOMITING Pantoprazole Sodium (Protonix) 20 mg PO DAILY COUNT INCLUDES THE [facility] Last Admin: 11/26/18 09:05 Dose: 20 mg Polyethylene Glycol (Miralax) 17 gm PO DAILY PRN PRN PRN Reason: Constipation Prasugrel (Effient) 10 mg PO DAILY COUNT INCLUDES THE [facility] Last Admin: 11/26/18 09:01 Dose: 10 mg Prednisolone Acetate (Pred Forte Eye Drops (5 Ml)) 1 drop EACH EYE 4X/DAY COUNT INCLUDES THE [facility] Last Admin: 11/26/18 10:00 Dose: Not Given Rivaroxaban (Xarelto) 15 mg PO DAILY COUNT INCLUDES THE [facility] Last Admin: 11/26/18 09:06 Dose: 15 mg Senna/Docusate Sodium (Senokot-S, Zamzam-Colace) 1 tablet PO DAILY COUNT INCLUDES THE [facility] Last Admin: 11/26/18 09:05 Dose: 1 tablet Simvastatin (Zocor) 40 mg PO QHS COUNT INCLUDES THE [facility] Sodium Chloride () 5 - 15 ml IV UD PRN PRN Reason: SALINE FLUSH Medical Necessity - Tobacco Use Smoking Status: Former smoker Tobacco Use: Non-smoker Assessment/Plan All Active Problems Cholelithiasis (Acute) Delirium (Acute) GRIS (acute kidney injury) (Acute) Fall (Acute) UTI (urinary tract infection) (Acute) Pneumococcal pneumonia (Acute) Sepsis (Acute) Hypoglycemia (Acute) Chest pain (Acute) Dehydration (Acute) UTI (urinary tract infection) (Acute) Acute delirium (Acute) Delirium (Acute) Sepsis (Acute) Acute cystitis (Acute) Influenza A (Resolved) 1. Right anterior LE hematoma due to mechanical fall * stable * RLE wrapped in lukas bandage * fall precautions * hemodynamically stable; hb is 11.4 * CT brain was negative, xray of right tibia and dibula showed focal pretibial soft tissue swelling with no obvious acute fracture * Continue pain meds. * Continue Lukas wrapping of right lower extremity due to hematoma as she has a history of being on anticoagulation * PT OT on board * 2. AK I on CKD stage III: * Creatinine is 1.6 on admission, is now down to 1.29. * Baseline creatinine is around 1.2. Currently being hydrated. * Will DC hydration on account of history of heart failure. * Encourage oral hydration * 3. Diabetes mellitus type 2: On insulin 76 units daily and insulin lispro. Insulin sliding scale. Accu-Cheks AC at bedtime 4. CAD: on metoprolol, statin and Prasugrel. Also on LUKAS inhibitor. 5. Heart failure with unknown EF: * EF not known. * On Xarelto, metoprolol. * Lasix and LUKAS inhibitor were held on admission due to AK. * Will resume as creatinine is back to baseline. 6. Hypertension: On Imdur, metoprolol. Will resume Lasix and lisinopril 7. Hyperlipidemia: On statin 8.Anxiety and depression: 9. Paroxysmal A. fib: On Xarelto and metoprolol. Will closely monitor hematoma and if it enlarges, will hold Xarelto 10. Seizure disorder: On Keppra 11. GERD: PPI DVT prophylaxis: Xarelto Code Visit OBSV E&M: [id number] Subsequent observation care L3
--- NOTE | 2018-11-26 12:56 | CHAPLAIN ---
Type of Pastoral Visit _x__ Initial Visit ___ Follow-up Visit ___ On-call Visit ___ General Patient Visit ___ Spiritual Assessment ___ Family Conference ___ Bereavement ___ Rapid Response ___ Code Blue ___ Other (describe below) Pastoral Care Referral From _x__ Patient ___ Family ___ Nurse ___ Physician ___ Supervisor Meter [employer] ___ Chief I Dispatcher ___ Other (describe below) Sacrament/Intervention _x__ Active listening ___ Anointing ___ Episcopalian ___ Bereavement ___ Communion _x__ Cierra exploration ___ _x__ Life review _x__ Prayer ___ Reconciliation ___ Sacrament of Sick _x__ Supportive presence ___ Wedding ___ Other (describe below) 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
--- NOTE | 2018-11-26 14:21 | CASEMGMT ---
Social Work Note SW received message from Fabiana at [facility] stating she is able to accept pt and will submit for pre-cert. Plan: [facility] pending pre-cert Rhea Soto SUPERVISOR [employer], MANAGER INVESTMENT BANKING
[2018-11-26] MEDS: Nystatin Powder 15gm Bottle 1 APPLIC TOPICAL ×2 (15:27→21:58)
[2018-11-26] MEDS: prednisoLONE eye drops (5 mL) 1 DROP OPTH.BTL 1 DRP EACH EYE ×3 (15:28→21:58)
[2018-11-26 16:56] LABS: Bedside Glucose 145 mg/dL (70-110)
[2018-11-26] MEDS: Furosemide 20 MG Tablet PO (21:58)
[2018-11-26 22:21] LABS: Bedside Glucose 184 mg/dL (70-110)
[2018-11-27 02:00] VITALS: BP 141/78; PULSE 69; RESP 18; TEMP 36.5; O2SAT 97
[2018-11-27] MEDS: Nystatin Powder 15gm Bottle 1 APPLIC TOPICAL (05:40)
[2018-11-27] MEDS: Acetaminophen 500 MG Tablet 1000 MG PO ×2 (05:40→14:03)
[2018-11-27 06:30] LABS: BUN 26 mg/dL (7-18); Creatinine, Serum 1.11 mg/dL (0.55-1.02); Estimated Creatinine Clearance 37.82 ml/min; Glucose 230 mg/dL (74-106)
[2018-11-27 06:31] LABS: Anion Gap 8 (5-15); BUN/Creat Ratio 23.4 RATIO (10-20); Calcium,Total 8.8 mg/dL (8.5-10.1); Chloride 112 mmol/L (98-107); EST Glomerular Filtration Rate 51 mL/min (>60); Est Glom Filt Rate - Afr Amer 62 mL/min (>60); Potassium 4.1 mmol/L (3.5-5.1); Sodium Level 145 mmol/L (136-145)
[2018-11-27] MEDS: Insulin Lispro 100 UNIT/ML INSULN.PEN SC ×2 (06:35→14:02)
[2018-11-27 06:45] LABS: Bedside Glucose 223 mg/dL (70-110)
[2018-11-27 06:54] LABS: Absolute Lymphocyte Count 2.02 X10^3/ul (0.83-4.51); Absolute Neutrophil Count 5.4 X10^3/uL (2.0-7.7); Basophil# 0.02 X10^3/uL; Basophil% 0.2 % (0-1); Eosinophil# 0.37 X10^3/uL; Eosinophils% 4.5 % (0-5); Hematocrit 38.4 % (37-47); Hemoglobin 11.8 g/dl (12.0-15.0); Lymphocyte # 2.02 X10^3/ul (4.0); Lymphocyte % 24.8 % (19-41); Mean Corp Hgb Conc 30.7 g/gl (32-36); Mean Corpuscular Hgb 23.2 pg (27.0-32.0); Mean Corpuscular Volume 75.4 fL (81-99); Monocyte# 0.34 X10^3/uL; Monocyte% 4.2 % (0-10); Neutrophil # 5.36 X10^3/uL (2.7-7.7); Neutrophil % 65.9 % (47-70); Platelet Count 175 K/mm3 (150-450); RBC Distribution Width CV 16.5 % (11.6-14.6); RBC Distribution Width SD 44.9 fl (35.1-43.9); Red Blood Count 5.09 M/mm3 (4.2-5.4); White Blood Count 8.1 K/mm3 (4.4-11.0)
[2018-11-27 06:57] LABS: Differential Indicated SCAN CRITERIA MET; POSITIVE COUNT NO; POSITIVE DIFFERENTIAL NO; POSITIVE MORPHOLOGY YES
[2018-11-27 07:41] LABS: Differential Comment SCAN
[2018-11-27 07:42] LABS: Platelet Estimate ADEQUATE (ADEQ); Platelet Morphology LARGE
[2018-11-27 08:14] VITALS: BP 181/93; PULSE 72; RESP 16; TEMP 36.4; O2SAT 99
[2018-11-27] MEDS: Insulin Lispro 100 UNIT/ML INSULN.PEN 24 UNIT SC ×2 (09:31→14:02)
[2018-11-27] MEDS: Isosorbide Mononitrate 30 MG Tablet 90 MG PO (09:32)
[2018-11-27] MEDS: DULoxetine Hcl 30 MG Capsule PO (09:32)
[2018-11-27] MEDS: Fluticasone 0.05% 1 SPRAY NASAL.SRY 2 SPRAY NASAL (09:32)
[2018-11-27] MEDS: levETIRAcetam 500 MG Tablet PO (09:33)
[2018-11-27] MEDS: Furosemide 20 MG Tablet PO (09:33)
[2018-11-27] MEDS: Lidocaine 5% Patch 1 PATCH TOPICAL (09:33)
[2018-11-27] MEDS: prednisoLONE eye drops (5 mL) 1 DROP OPTH.BTL 1 DRP EACH EYE ×2 (09:34→14:05)
[2018-11-27 09:35] VITALS: PULSE 72
[2018-11-27] MEDS: Metoprolol(XL)Succ 50 MG Tablet PO (09:35)
[2018-11-27] MEDS: Rivaroxaban 15 MG Tablet PO (09:35)
[2018-11-27] MEDS: Pantoprazole Sodium 20 MG Tablet PO (09:35)
[2018-11-27] MEDS: Lisinopril 10 MG Tablet PO (09:35)
[2018-11-27] MEDS: Senna/Docusate Sodium 1 Tablet PO (09:35)
[2018-11-27] MEDS: Glucerna Shake 120 ML LIQUID PO ×2 (09:42→14:02)
--- NOTE | 2018-11-27 10:26 | CASEMGMT ---
RN CM Note VIGIL form reviewed with pt re: [employer] insurance and billing as outpt status. Reviewed INPT vs Outpt designations related to pt's fall. Questions answered re: shelter payment with observation status and prior authorization will be received by insurance prior to her dc if pt goes to SNF on dc. No further questions noted. Copy given to pt and original on chart. Shahid DOMINGO RN ACM
--- NOTE | 2018-11-27 10:45 | CASEMGMT ---
Social Work Note SW received message from Fabiana at [facility] stating pre-cert has been obtained and pre-cert is only good for today. SW met with pt. Pt sitting upright in chair. Pt states that she isn't doing good. Pt states that she doesn't know where her car is at and her daughter Cinthia doesn't know but that her other daughter Yeimi may have the car. Pt states that she wants to go home and feels that she is able to walk at home. SW reminded pt that she only walked 5-6 feet yesterday and that PT/OT were recommending additional therapy/SNF for pt. Pt states that she remembers the conversation this worker had with her yesterday in regards to [facility] for short term placement. SW again reiterated to pt that placement at [facility] would be short term and pt can discharge home from [facility] at anytime. Pt confirms that she is still agreeable to [facility] for short term placement. MINAL asked pt if she would like this worker to call her daughter Cinthia and pt states she would call her. SW informed pt that [facility] is able to accept pt and that pre-cert has been obtained. SW informed pt that this worker will speak with pt again in regards to discharge plans once physician has seen pt today. Pt states understanding and denied additional needs or concerns at this time. Plan: [facility] Today Rhea Soto CRYSTAL GAZER, PIE ICER MACHINE
--- NOTE | 2018-11-27 10:56 | NURSING ---
Patient's daughter called in at this time and notified this RN that patient called her crying and states that no one has been in all morning to see her and if they do come in the room they walk through the door and turn around and walk back out. She states that no one is telling her what is going on and that she doesn't know where she is going. Notified daughter that this Rn would check on patient- understanding verbalized- further questions denied. Notified daughter that doctor has not been to unit yet, but that antwon Pittman RN has been in with her a few different times. Upon entry into pt's room- drying can worker was in with patient and patient was telling her how her past aid did nothing for her. This RN waited for a pause and notified patient that her daughter called in and states that she told her that no one had been in her room and that she was never told the plan for discharge. Notified patient that doctor has not rounded yet, but that her nurse Toya has been in a few different times this morning- observed by this RN. Patient states that she just doesn't know who anyone is. emotional support provided. Patient then reminded of discussion with social work yesterday regarding discharge to [facility] temporarily to get stronger. Patient verbalized that she remembered. Notified her that is the plan but we are waiting for insurance. Berto Wilkerson reminded pt as well that she was in speaking with her yesterday and that she discussed this with patient at that time. Reminded her that the plan is for W and that we will notify her when accepted by insurance. Patient verbalized understanding and denied further questions from this RN. THIAGO Pittman notified of call from daughter and states that she has been in with patient 3 times this morning- incontinence care provided x2 and that medications were given as well. Also states that field operations farm manager was in with student speaking with patient this morning.
[2018-11-27 11:46] VITALS: BP 127/61; PULSE 86; RESP 16; TEMP 36.3; O2SAT 99
[2018-11-27 11:46] LABS: Bedside Glucose 341 mg/dL (70-110)
--- NOTE | 2018-11-27 11:52 | PCM.TXEXTCAR ---
- Diet 11/26/18 01:03 Diet: Calorie Controlled How many daily calories?: 1800 calorie - Routine Orders/Code Status Enema Type: Fleetz Enema Frequency: Daily PRN Suppository Frequency: Daily PRN O2 Frequency: PRN Keep PO Greater than or Equal to (%): 92 - Wound(s) RIGHT LOWER EXTREMITY Wound Type: Hematoma - Therapies Weight Bearing: Weight bearing as tolerated Physical Therapy: Eval and Treat Speech Therapy: Eval and Treat - Allergies/Procedures Done in Hospital Allergies/Adverse Reactions: Allergies atorvastatin calcium [From Lipitor] Allergy (Verified 11/25/18 19:11) dont remember codeine Allergy (Verified 11/25/18 19:11) Rash iodine Allergy (Verified 11/25/18 19:11) Rash Latex, Natural Rubber Allergy (Verified 11/25/18 19:11) Rash lovastatin Allergy (Verified 11/25/18 19:11) Rash rosuvastatin calcium [From Crestor] Allergy (Verified 11/25/18 19:11) rash\ naproxen [From Naprosyn] Adverse Reaction (Verified 11/25/18 19:11) Upset Stomach pregabalin [From Lyrica] Adverse Reaction (Verified 11/25/18 19:11) Upset Stomach Sulfa (Sulfonamide Antibiotics) Adverse Reaction (Verified 11/25/18 19:11) Upset Stomach Procedures: None - Type of Care/Length of Stay Estimated LOS: Convalescent Care Less Than 30 days Type of Care Needed: Skilled Rehab Potential: Fair Prognosis: Good - Additional Orders/Day of Discharge Additional Orders: hold oral anticoagulant if hematoma becomes bigger or hemoglobin level drops Day of Discharge: 11/27/18 - Dietary and Speech Recommendations Dietitian Recommendations/Changes: Poor dentition- may benefit from SMOKING TOBACCO PACKER HAND evaluation. Rec diet change to 1600 calorie controlled, cardiac, low sodium diet w/ fluid restriction as indicated. Rec check current body wt- wt hx appears to have significant fluctuations; unclear if r/t fluid status and/or PO intake. - Follow Up Care Primary Care Physician: Emerita Gottlieb MD [Primary Care Provider] - Please follow up with your Primary Care Physician in: one week
--- NOTE | 2018-11-27 11:54 | DS.PCM_ITS ---
Discharge Date and Diagnosis Date of Admission: 11/25/18 Date of Discharge: 11/27/18 - Primary Discharge Diagnosis Active and Suspected Problems GRIS (acute kidney injury) (Acute) Fall (Acute) RLE hematoma due to fall - Secondary Discharge Diagnosis Chronic Problems Migraine (Chronic) Hyperlipidemia (Chronic) Hypertension (Chronic) Benign essential hypertension (Chronic) CAD (coronary artery disease) (Chronic) Chronic CHF (Chronic) Chronic constipation (Chronic) Type II diabetes mellitus (Chronic) Morbid obesity (Chronic) Osteoarthritis (Chronic) Spondylosis (Chronic) History of urinary incontinence (Chronic) Chronic back pain (Chronic) Sleep apnea (Chronic) CKD (chronic kidney disease) stage 3, GFR 30-59 ml/min (Chronic) Hospital Course and Treatment Imaging Results: Diagnostic Data Brain CT 11/25/18 19:55 IMPRESSION: Moderate atrophy and periventricular white matter ischemic changes. No evidence for acute bleed. Electronically Signed: Cristian Kam MD at 21:00 EST , Service support , Cervical Spine CT 11/25/18 19:55 IMPRESSION: No evidence for acute fracture or subluxation Mild spondylosis most severe at C4-5 and C5-6 where there appears to be spinal stenosis secondary to disc disease and bony hypertrophy. MRI would be useful for further assessment if clinically indicated Electronically Signed: Cristian Kam MD at 21:04 EST , Service support , Tibia/Fibula X-Ray 11/25/18 19:55 IMPRESSION: Focal pretibial soft tissue swelling without evidence for fracture Electronically Signed: Cristian Kam MD at 21:05 EST , Service support , Operations: None Procedures: None Summary of Care Provided: The patient is a 73 year old F with an extensive past medical history as listed. She was admitted with a complaint of a fall at home. She hit her head and right lower extremity. She did not have any loss of consciousness assisted with the fall or dizziness or lightheadedness. Vitals in the ED was stable and CT of the head was negative for any acute evidence of a bleed. CT of the spine was also negative for any acute pathology and x-ray of the right tibia and fibula showed focal pretibial soft tissue swelling which is consistent with a hematoma. She was admitted and managed for debility due to mechanical fall and right lower extremity hematoma. She had Lukas wraps applied to her lower extremities to help with a hematoma. She was on oral anti-coagulation for A. fib and this was continued as her hemoglobin had remained stable and hematoma was not increasing. On admission, she also had AK I on CKD with creatinine of 1.6 with a baseline being around 1.2. This resolved with hydration. Patient remained stable and was discharged to [facility] on 1518. She is to follow-up with her primary care doctor. Of note, on the day of discharge, patient stated that she may have had an unwitnessed seizure. Patient does have a history of seizure disorder and states that she often has such procedures at home and was following up with a neurologist. Patient provides follow-up with a neurologist on outpatient basis and so she was discharged on her home dose of Keppra to follow- up with a neurologist. patient Seen and examined prior to discharge. She had no complaints and felt we ll. Review of systems otherwise negative. Labs and vitals reviewed. Home medications reviewed and reconciled. o/e: Vital Signs Height 5 ft 4 in Weight: 208 lb 8.917 oz Weight in Pounds 208.6 lbs Pulse Ox 99 Temperature 97.4 F Pulse Rate 86 Respiratory Rate 16 Blood Pressure 127/61 Blood Pressure Position Sitting [] General: Alert, Oriented x3, Cooperative, No apparent distress, HEENT: Atraumatic, PERRLA, EOMI, Normocephalic Oral: Moist Mucosa Neck: Supple, No JVD, Negative Carotid Bruits Lungs: Clear to auscultation, Normal air movement, No rhonchi, No wheeze Cardiovascular: Regular rate, Regular Rhythm, Normal S1, Normal S2, No murmurs Abdomen: Bowel Sounds Present, Soft, Non Tender, Non-Distended, No Hepato- splenomegaly Extremities: No clubbing, No cyanosis, No edema, Capillary Refill Less than 3 Seconds, - - both LEs in LUKAS bandage. swelling over right anterior thigh due to hematoma, mildly tender. Skin: No rashes, No breakdown Musculoskeletal: No Muscle Wasting, Tenderness - as under extremities Lymphatic: No Cervical, Supraclavicular, or Inguinal Adenopathy Neurological: Cranial nerves II-XII grossly intact, Neuro grossly intact Psych/Mental Status: Normal Affect, Appropriate, Alert and oriented to time, place, person, mood and affect Plan as described - Physical Exam Vital Signs Temp Pulse Resp BP Pulse Ox 97.4 F L 86 16 127/61 H 99 11/27/18 11:46 11/27/18 11:46 11/27/18 11:46 11/27/18 11:46 11/27/18 11:46 Oxygen Flow Rate (L/min) 98 Oxygen Delivery Method Room Air Weight: 208 lb 8.917 oz Body Mass Index (BMI) 35.8 Finger Stick Blood Glucose 256 Intake and Output for Last 24 Hours 11/25/18 11/26/18 11/27/18 23:59 23:59 23:59 Intake Total 1312 / 1312 950 / 950 Balance 1312 / 1312 950 / 950 Laboratory Tests Past 24 Hrs 11/27/18 11/27/18 05:28 05:28 WBC 8.1 RBC 5.09 Hgb 11.8 L Hct 38.4 MCV 75.4 L MCH 23.2 L MCHC 30.7 L RDW 16.5 H RDW Differential 44.9 H Plt Count 175 Immature Gran % (Auto) 0.400 Neut % (Auto) 65.9 Lymph % (Auto) 24.8 [place] % (Auto) 4.2 Eos % (Auto) 4.5 Baso % (Auto) 0.2 Absolute Neuts (auto) 5.4 Absolute Lymphs (auto) 2.02 Total Counted Not Reportable Differential Comment SCAN Platelet Estimate ADEQUATE Plt Morphology Comment LARGE Sodium 145 Potassium 4.1 Chloride 112 H Carbon Dioxide 25.0 Anion Gap 8 BUN 26 H Creatinine 1.11 H Estim Creat Clear Calc 37.82 Est GFR (MDRD) Af Amer 62 Est GFR (MDRD) Non-Af 51 L BUN/Creatinine Ratio 23.4 H Glucose 230 H Calcium 8.8 POC Glucose 11/27/18 11/27/18 11/26/18 11:35 06:34 21:57 POC Glucose 341 H 223 H 184 H 11/26/18 16:50 POC Glucose 145 H Discharge Diet: Low fat/ Low Cholesterol Weight Bearing Status: Weight bearing as tolerated Call your doctor if you observe: Fever of 101 or Higher, Shortness of breath, Increased palpitations (irregular heartbeat), Uncontrolled pain Home Medications: Medications to take at Discharge Insulin Aspart [Novolog Flexpen] 24 units SC TIDCM 03/12/17 Insulin Degludec [Tresiba Flextouch U-100] 76 unit SQ DAILY 10/11/17 Metoprolol Succinate [Toprol Xl] 50 mg PO DAILY 10/11/17 levETIRAcetam tablet [Keppra tablet] 500 mg PO BID 10/11/17 Fluticasone 0.05% [Flonase Nasal [place]] 2 sprays NASAL DAILY 04/27/18 Furosemide [Lasix] 20 mg PO BID 04/27/18 Lisinopril [Zestril] 10 mg PO DAILY 04/27/18 Omeprazole 20 mg PO DAILY 04/27/18 Polyethylene Glycol 3350 [Miralax] 17 gm PO DAILY PRN 04/27/18 Prasugrel HCl 10 mg PO DAILY 06/04/18 Rivaroxaban [Xarelto] 15 mg PO DAILY 06/04/18 Simvastatin [Zocor] 40 mg PO QHS 06/04/18 Acetaminophen [Tylenol] 1,000 mg PO PRN PRN 11/18/18 Cetirizine HCl [Zyrtec] 10 mg PO DAILY PRN 11/18/18 Duloxetine HCl 30 mg PO DAILY 11/18/18 Isosorbide Mononitrate [Isosorbide Mononitrate ER] 3 tab PO DAILY 11/18/18 Ketorolac Tromethamine [Acular] 1 drop OPHTHALMIC 4X/DAY 11/18/18 Lidocaine [Lidoderm Patch] 1 patch TOPICAL DAILY 11/18/18 Sennosides/Docusate Sodium [Senna Plus Tablet] 2 tab PO DAILY 11/18/18 prednisoLONE eye drops (1 mL) [Pred Forte eye drops (1 mL)] 1 drop EACH EYE 4X/DAY 11/18/18 Isosorbide Mononitrate [Imdur] 90 mg PO DAILY tablet 11/19/18 Primary Care Physician: Emerita Gottlieb MD [Primary Care Provider] - Please follow up with your Primary Care Physician in: one week Additional Instructions: follow up with your neurologist Disposition: Group Home facility Minutes spent on discharge:: 40 Patient Condition:: Stable Medical Necessity - Tobacco Use Smoking Status: Former smoker Tobacco Use: Non-smoker Meaningful Use Info Meaningful Use Diagnoses (Choose all that apply): None applicable Code Visit Inpatient E&M: 67351 Disch Hosp
--- NOTE | 2018-11-27 14:06 | CASEMGMT ---
Addendum entered by Rhea Soto 11/27/18 15:14: MINAL placed a call to Toshia Banda at [facility], and [facility] to update on pt's discharge to [facility] today. MINAL faxed discharge summary to Toshia Banda. Original Note: Social Work Note Physician is discharging pt. MINAL faxed discharge paperwork to Fabiana at [facility] including transfer to extended care facility, signed medication list and any scripts. Originals in SNF folder and copy on pt's chart. MINAL completed PAS/RR in [facility]. Originals in SNF folder and copy on pt's chart. SW updated pt on discharge today. Pt asked this worker to call her daughter Cinthia to determine if she is able to transport pt. SW placed a call to pt's daughter Cinthia and per Cinthia she is unable to transport pt. MINAL placed a call to [facility] and arranged transportation via wheelchair van for 3:00pm. Transportation form on SNF folder and copy on pt's chart. MINAL update RN, pt, pt's daughter Cinthia and Fabiana at [facility] of transportation time. Plan: Pt to discharge to [facility] skilled today with [facility] wheelchair van at 3:00pm Rhea Soto MSW, [employer]
== END 2018-11-27 15:00 | disposition skilled nursing facility (03) ==
LOC: ED 22:40 → MS3 23:30
PROVIDERS: Admitting Provider Family Medicine; Emergency Provider Emergency Medicine; Family Provider Internal Medicine; PCP Internal Medicine; Visit Provider Student in an Organized Health Care Education/Training Program
DX: S70.11XA Contusion of right thigh, initial encounter (principal); N17.9 Acute kidney failure, unspecified; W17.89XA Other fall from one level to another, initial encounter; Y93.G3 Activity, cooking and baking; Y92.89 Other specified places as the place of occurrence of the external cause; E78.5 Hyperlipidemia, unspecified; I25.10 Atherosclerotic heart disease of native coronary artery without angina pectoris; E11.22 Type 2 diabetes mellitus with diabetic chronic kidney disease; I13.0 Hypertensive heart and chronic kidney disease with heart failure and stage 1 through stage 4 chronic kidney disease, or unspecified chronic kidney disease; N18.3 Chronic kidney disease, stage 3 (moderate); I50.9 Heart failure, unspecified; G47.30 Sleep apnea, unspecified; M19.90 Unspecified osteoarthritis, unspecified site; E66.01 Morbid (severe) obesity due to excess calories; G43.909 Migraine, unspecified, not intractable, without status migrainosus; K59.09 Other constipation; G89.29 Other chronic pain; I48.0 Paroxysmal atrial fibrillation; G40.909 Epilepsy, unspecified, not intractable, without status epilepticus; K21.9 Gastro-esophageal reflux disease without esophagitis; F41.9 Anxiety disorder, unspecified; F32.9 Major depressive disorder, single episode, unspecified; Z79.899 Other long term (current) drug therapy; Z79.4 Long term (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 of insulin; Z79.01 Long term (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 of anticoagulants; Z87.891 Personal history of nicotine dependence; Z68.35 Body mass index [BMI] 35.0-35.9, adult; Z71.3 Dietary counseling and surveillance; Z95.0 Presence of cardiac pacemaker
CPT/HCPCS: 36415; 70450; 72125; 73590; 80048; 82962; 83735; 85025; 85610; 85730; 96361; 96374; 96375; 97162; 97166; 97530; 97802; 99218; 99284; J7030; A4216; G0378

== ENCOUNTER 2019-02-04 14:30 | Outpatient (RCR) | payer MEDICARE, SELFPAY ==
[2018-11-26 01:10] VITALS: BMI 35.8
[2019-01-14 14:55] VITALS: BP 132/71; PULSE 105; RESP 20; TEMP 35.6; BMI 35.8
--- NOTE | 2019-01-14 16:54 | HP.PCM_ITS ---
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 Status: Acute Current Visit: Yes Code(s): L97.912 - Non-pressure chronic ulcer of unspecified part of right lower leg with fat layer exposed (2) PVD (peripheral vascular disease) Status: Acute Current Visit: Yes Code(s): I73.9 - Peripheral vascular disease, unspecified (3) Decreased dorsalis pedis pulse Status: Acute Current Visit: Yes Code(s): R09.89 - Other specified symptoms and signs involving the circulatory and respiratory systems (4) Fall Status: Acute Current Visit: Yes Qualifiers: Code(s): W19.XXXA - Unspecified fall, initial encounter (5) CAD (coronary artery disease) Status: Chronic Current Visit: No Qualifiers: Code(s): I25.10 - Atherosclerotic heart disease of [place] coronary artery without angina pectoris (6) CKD (chronic kidney disease) stage 3, GFR 30-59 ml/min Status: Chronic Current Visit: No (7) Chronic CHF Status: Chronic Current Visit: No Qualifiers: Code(s): I50.9 - Heart failure, unspecified (8) Hyperlipidemia Status: Chronic Current Visit: No Qualifiers: Code(s): E78.5 - Hyperlipidemia, unspecified (9) Hypertension Status: Chronic Current Visit: No Qualifiers: Code(s): I10 - Essential (primary) hypertension (10) Osteoarthritis Status: Chronic Current Visit: No Qualifiers: (11) Sleep apnea Status: Chronic Current Visit: No Qualifiers: Code(s): G47.30 - Sleep apnea, unspecified (12) Type II diabetes mellitus Status: Chronic Current Visit: No Qualifiers: Code(s): E11.9 - Type 2 diabetes mellitus without complications History of Present Illness Date of Service: 01/14/19 Chief Complaint: Nonhealing ulceration to right anterior lower extremity times 2 months History of Wound: This is a 73-year-old white female who presents to the wound healing center today with complaints of nonhealing ulcer to the right anterior lower extremity for 2 months. She has a past medical history significant for: Obesity, GERD, HTN, HLD, Chronic CHF Unclear Type, PAF, Anxiety and Depression, Seizure disorder, Diabetes mellitus type II uncontrolled, ERIC, CKD stage III. The patient states that initially the injury occurred roughly 2 months ago where she fell and came into contact with the side of her refrigerator and a hematoma occurred. She states that the hematoma persisted until a couple of weeks ago when she was seen by Dr. Jacques who unroofed the necrotic hematoma. She states that the ulceration has been open since then and draining a small amount of serosanguineous fluid. Her wound care has consisted of rinsing the wound with saline daily. She states that her diabetes is not well controlled and she does not routinely check her blood sugars. She denies any recent cultures being taken or being on any antibiotics. She denies any signs of systemic or localized infection at this time. The patient otherwise denies any fever, chills, nausea, vomiting, shortness of breath, chest pain or pressure, palpitations, orthopnea, lower extremity edema, syncope or presyncopal episodes. Past Medical History Past Medical History: Chronic Problems Migraine (Chronic) Hyperlipidemia (Chronic) Hypertension (Chronic) Benign essential hypertension (Chronic) CAD (coronary artery disease) (Chronic) Chronic CHF (Chronic) Chronic constipation (Chronic) Type II diabetes mellitus (Chronic) Morbid obesity (Chronic) Osteoarthritis (Chronic) Spondylosis (Chronic) History of urinary incontinence (Chronic) Chronic back pain (Chronic) Sleep apnea (Chronic) CKD (chronic kidney disease) stage 3, GFR 30-59 ml/min (Chronic) Surgical History: hysterectomy, - - ECI x2, thyroidectomy for goiter, left lower extremity surgery for bone cancer, pacemaker, hysterectomy. Allergies/Adverse Reactions: Allergies atorvastatin calcium [From Lipitor] Allergy (Verified 11/25/18 19:11) dont remember codeine Allergy (Verified 11/25/18 19:11) Rash iodine Allergy (Verified 11/25/18 19:11) Rash Latex, Natural Rubber Allergy (Verified 11/25/18 19:11) Rash lovastatin Allergy (Verified 11/25/18 19:11) Rash rosuvastatin calcium [From Crestor] Allergy (Verified 11/25/18 19:11) rash\ naproxen [From Naprosyn] Adverse Reaction (Verified 11/25/18 19:11) Upset Stomach pregabalin [From Lyrica] Adverse Reaction (Verified 11/25/18 19:11) Upset Stomach Sulfa (Sulfonamide Antibiotics) Adverse Reaction (Verified 11/25/18 19:11) Upset Stomach Home Medications: Ambulatory Orders Medication Instructions Recorded Insulin Aspart [Novolog Flexpen] 24 units SC TIDCM 03/12/17 Insulin Degludec [Tresiba 76 unit SQ DAILY 10/11/17 Flextouch U-100] Metoprolol Succinate [Toprol Xl] 50 mg PO DAILY 10/11/17 levETIRAcetam tablet [Keppra 500 mg PO BID 10/11/17 tablet] Fluticasone 0.05% [Flonase Nasal 2 sprays NASAL DAILY 04/27/18 [place]] Furosemide [Lasix] 20 mg PO BID 04/27/18 Lisinopril [Zestril] 10 mg PO DAILY 04/27/18 Omeprazole 20 mg PO DAILY 04/27/18 Polyethylene Glycol 3350 [Miralax] 17 gm PO DAILY PRN 04/27/18 Prasugrel HCl 10 mg PO DAILY 06/04/18 Rivaroxaban [Xarelto] 15 mg PO DAILY 06/04/18 Simvastatin [Zocor] 40 mg PO QHS 06/04/18 Acetaminophen [Tylenol] 1,000 mg PO PRN PRN 11/18/18 Cetirizine HCl [Zyrtec] 10 mg PO DAILY PRN 11/18/18 Duloxetine HCl 30 mg PO DAILY 11/18/18 Isosorbide Mononitrate [Isosorbide 3 tab PO DAILY 11/18/18 Mononitrate ER] Ketorolac Tromethamine [Acular] 1 drop OPHTHALMIC 4X/DAY 11/18/18 Lidocaine [Lidoderm Patch] 1 patch TOPICAL DAILY 11/18/18 Sennosides/Docusate Sodium [Senna 2 tab PO DAILY 11/18/18 Plus Tablet] prednisoLONE eye drops (1 mL) 1 drop EACH EYE 4X/DAY 11/18/18 [Pred Forte eye drops (1 mL)] Isosorbide Mononitrate [Imdur] 90 mg PO DAILY tablet 11/19/18 - Family History Maternal - - History of alcoholic cirrhosis Paternal Cancer - Her father had colon cancer. Sibling Cancer - Her sister had ovarian cancer., Hypertension Smoking Status: Former smoker Review of Systems Constitutional: Denies: Chills, Fever, Weight Change Eyes: Denies: Pain, Vision Change HEENT: Denies: Difficulty Hearing, Difficulty Swallowing, Sinus Congestion Cardiovascular: Denies: Chest Pain, Palpitations Respiratory: Denies: Cough, Shortness of Breath Gastrointestinal: Denies: Diarrhea, Nausea, Vomiting Genitourinary: Denies: Dysuria, Hematuria Skin: Reports: Wounds - see hpi Endocrine: Denies: Heat/ Cold Intolerance, Polydipsia, Polyuria Hematologic/ Lymphatic: Denies: Easy Bruising, Easy Bleeding - Physical Exam Vital Signs Temp Pulse Resp BP 96.1 F L 105 H 20 H 132/71 H 01/14/19 14:55 01/14/19 14:55 01/14/19 14:55 01/14/19 14:55 General: Alert, Oriented x3, Cooperative, No apparent distress HEENT: Atraumatic, PERRLA Oral: Moist Mucosa Lungs: Clear to auscultation, Normal air movement, No rhonchi, No wheeze, No rales Cardiovascular: Regular Rhythm, Normal S1, Normal S2, Irregular Rate Abdomen: Soft, Non Tender, Obese Extremities: No clubbing, No cyanosis, Diminished Peripheral Pulses - bilateral DP pulses diminshed, Edema - generalized BLLE edema Skin: Ulcer/ Wound - Ulceration to right anterior claros with adherent slough present, periwound bed slightly inflamed, site does tunnel at 9:00. No warmth, redness, or streaking present at this time. Moderate amount of serosanguineous drainage present. Wound Measurements and Assessment WC - Nurse 1 - General Ulcer Measurement Start: 01/14/19 14:38 Freq: Status: Active Protocol: Activity Type Activity Date Activity User E-Sign Co-Sign Detail Recorded Client Recorded Date Recorded By Document 01/14/19 14:55 DL [id number] 01/14/19 15:17 DL 01/14/19 14:55 Wound Center Nurse 1 [Ulcer Assessment] #1 RLE med -Current Size (cm) - Length 4.4 -Current Size (cm) - Width 2.5 -Current Size (cm) - Depth 0.2 -Total Square Cm 11.00 -Photo Taken Yes -Tunneling Position (O'clock) 9 -Tunneling Distance (cm) 0.5 -Classification - Thickness Full Thickness without Exposed Support Structure -Exudate Amt Medium -Exudate Type Serosanguineous -Wound Margin Distinct, Outline Attached -Granulation Amt Medium (34-66%) -Granulation Quality Red -Necrosis Amt Medium (34-66%) -Necrotic Tissue Type Adherent Slough -Texture (Zamzam-wound Skin Appearance) Localized Edema Scarring -Moisture (Zamzam-wound Skin Appearance Dry/Scaly ) -Color (Zamzam-wound Skin Appearance) Hemosiderin Staining Rubor -Temperature (Zamzam-wound Skin No Abnormality Appearance) (Pt Warm) -Tenderness on Palpation (Zamzam-wound No Skin Appearance) -Ulcer Cleansing Wound Cleanser -Foul Odor after Cleansing No -Anesthetic Used 5% Lidocaine Gel [Edema Assessment] -Right Calf (cm) 41 -Right Ankle (cm) 25.5 -Left Calf (cm) 38.5 -Left Ankle (cm) 25 - Nurse 2 - General Ulcer CM Notes Start: 01/14/19 14:38 Freq: Status: Active Protocol: Activity Type Activity Date Activity User E-Sign Co-Sign Detail Recorded Client Recorded Date Recorded By Document 01/14/19 15:59 AN [id number] 01/14/19 16:08 AN 01/14/19 15:59 Wound Center Nurse 2 [Procedure/Treatment] #1 RLE med -Time 16:03 -Correct Patient Yes -Correct Side, Site, Position Yes -Correct Procedure Yes -Procedure Performed Yes -Type of Procedure Debridement -Clinical Debridement Subcutaneous -Post Debridement Size (cm) - Length 4.5 -Post Debridement Size (cm) - Width 2.8 -Post Debridement Size (cm) - Depth 2.1 -Total Square Cm 12.60 -Wound/Ulcer Outcome Not Healed [See Physician Procedure note for Specifics] Musculoskeletal: No Tenderness to Palpation of Joints or Extremities, No Muscle Wasting Neurological: Neuro grossly intact Psych/Mental Status: Normal Affect, Appropriate, Alert and oriented to time, place, person, mood and affect Debridement Note Post-Debridement Measurements/Treatment - Nurse 2 - General Ulcer CM Notes Start: 01/14/19 14:38 Freq: Status: Active Protocol: Activity Type Activity Date Activity User E-Sign Co-Sign Detail Recorded Client Recorded Date Recorded By Document 01/14/19 15:59 AN [id number] 01/14/19 16:08 AN 01/14/19 15:59 Wound Center Nurse 2 #1 RLE med -Time 16:03 -Correct Patient Yes -Correct Side, Site, Position Yes -Correct Procedure Yes -Procedure Performed Yes -Type of Procedure Debridement -Clinical Debridement Subcutaneous -Post Debridement Size (cm) - Length 4.5 -Post Debridement Size (cm) - Width 2.8 -Post Debridement Size (cm) - Depth 2.1 -Total Square Cm 12.60 -Wound/Ulcer Outcome Not Healed Wound debrided: Nonhealing ulcer to right lower extremity status post traumatic hematoma Laterality: Right Type of Debridement: Excisional debridement Anesthesia Used: 5% Lidocaine Gel Depth: in the subcutaneous layer Percentage of wound debrided: 100 Instrument Used: 5mm curette Tissue Removed: Slough and devitalized tissue Severity: Fat Layer Exposed Amount of bleeding with debridement: Mild Bleeding Controlled with: Pressure Patient tolerated procedure well Assessment/Plan Active Problems Fall (Acute) 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 (Acute) PVD (peripheral vascular disease) (Acute) Decreased dorsalis pedis pulse (Acute) Assessment: Nonhealing ulcer status post traumatic hematoma to right anterior lower extremity, suspect venous component. Plan: The patient was seen and examined at the wound center today and was updated on the plan of care. A subcutaneous debridement was performed today. The patient tolerated the procedure well. The patients wound care will consist of: Applying moistened Mandy daily and cover with gauze, double Tubigrip for compression. Will apply for snap vac due to depth and request general surgeons most recent records. Wound cultures were collected. Baseline bloodwork ordered. Vascular studies ordered. Patient educated on the importance of diet on wound healing and instructed to increase protein and vitamin C intake. Glucerharriet was called to her pharmacy. A referral was made to nutrition services for her poorly controlled diabetes. Did defer this back to the PCP as well. Patient verbalized understanding. Patient will follow up at wound healing center in one week or sooner if needed. This note was generated with [employer] dictation software. It may contain incorrect words, spelling, and punctuation that were not noted in checking the note before signing. Code Visit Office Visits / Consults: 25122 OV L4 Est 111xxx-113xx: 24504 Sonia subq tissue 20 sq cm/<
[2019-01-14 18:53] LABS: M R Staph aureus DNA By PCR Negative (Negative); Probe Check PASS; Specimen Processing Control PASS; Staph aureus DNA By PCR NEGATIVE (Negative)
[2019-01-21 11:08] VITALS: BP 140/77; PULSE 100; RESP 18; TEMP 35.8; BMI 35.8
--- NOTE | 2019-01-21 16:35 | PCM.WC.PN ---
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 Status: Chronic Current Visit: Yes Code(s): L97.912 - Non-pressure chronic ulcer of unspecified part of right lower leg with fat layer exposed (2) PVD (peripheral vascular disease) Status: Chronic Current Visit: Yes Code(s): I73.9 - Peripheral vascular disease, unspecified (3) Type II diabetes mellitus Status: Chronic Current Visit: Yes Qualifiers: Code(s): E11.9 - Type 2 diabetes mellitus without complications Type of Wound Chief Complaint: Nonhealing ulceration to right anterior lower extremity times 2 months History of Wound: This is a 73-year-old white female who presents to the wound healing center today with complaints of nonhealing ulcer to the right anterior lower extremity for 2 months. She has a past medical history significant for: Obesity, GERD, HTN, HLD, Chronic CHF Unclear Type, PAF, Anxiety and Depression, Seizure disorder, Diabetes mellitus type II uncontrolled, ERIC, CKD stage III. The patient states that initially the injury occurred roughly 2 months ago where she fell and came into contact with the side of her refrigerator and a hematoma occurred. She states that the hematoma persisted until a couple of weeks ago when she was seen by Dr. Jacques who unroofed the necrotic hematoma. She states that the ulceration has been open since then and draining a small amount of serosanguineous fluid. Her wound care has consisted of rinsing the wound with saline daily. She states that her diabetes is not well controlled and she does not routinely check her blood sugars. She denies any recent cultures being taken or being on any antibiotics. She denies any signs of systemic or localized infection at this time. The patient otherwise denies any fever, chills, nausea, vomiting, shortness of breath, chest pain or pressure, palpitations, orthopnea, lower extremity edema, syncope or presyncopal episodes. Progress of Wound: Courtesy visit for Kuldeep Encarnacion NP. Ms. South is a 73-year-old been managed for post hematoma ulceration of her right lower extremity. Initially seen a week ago. Started on Mandy. Has done well so far. Denies any concerns at this time. - Physical Exam Vital Signs Temp Pulse Resp BP 96.4 F L 100 18 140/77 H 01/21/19 11:08 01/21/19 11:08 01/21/19 11:08 01/21/19 11:08 General: Alert, Oriented x3, Cooperative, No apparent distress HEENT: Atraumatic, Normocephalic Oral: Moist Mucosa Neck: Supple Lungs: Normal air movement Extremities: No cyanosis, Edema Skin: Ulcer/ Wound Wound Measurements and Assessment WC - Nurse 1 - General Ulcer Measurement Start: 01/14/19 14:38 Freq: Status: Active Protocol: Activity Type Activity Date Activity User E-Sign Co-Sign Detail Recorded Client Recorded Date Recorded By Document 01/21/19 11:08 BMF [id number] 01/21/19 11:17 BMF 01/21/19 11:08 Wound Center Nurse 1 [Ulcer Assessment] #1 [facility] med -Combined with other wound No -Current Size (cm) - Length 4 -Current Size (cm) - Width 2.4 -Current Size (cm) - Depth 0.7 -Total Square Cm 9.6 -Photo Taken No -Epithelialization None Present -Tunneling Yes -Tunneling Position (O'clock) 9 -Tunneling Distance (cm) 0.4 -Undermining/Tunneling No -Circular Undermining No -Exudate Amt Medium -Exudate Type Serous -Wound Margin Distinct, Outline Attached -Granulation Amt Small (1-33%) -Granulation Quality Red -Slough/Fibrin Yes -Necrosis Amt Medium (34-66%) -Necrotic Tissue Type Adherent Slough -Texture (Zamzam-wound Skin Appearance) Assessed Scarring -Moisture (Zamzam-wound Skin Appearance Assessed ) Dry/Scaly -Color (Zamzam-wound Skin Appearance) Assessed Erythema -Temperature (Zamzam-wound Skin No Abnormality Appearance) (Pt Warm) -Tenderness on Palpation (Zamzam-wound No Skin Appearance) -Ulcer Cleansing Rinsed/ Irrigated with Saline -Foul Odor after Cleansing No -Anesthetic Used 5% Lidocaine Gel [Edema Assessment] -Lower Limb Edema Present Yes -Right Calf (cm) 41.9 -Right Ankle (cm) 25.8 WC - Nurse 2 - General Ulcer CM Notes Start: 01/14/19 14:38 Freq: Status: Active Protocol: Activity Type Activity Date Activity User E-Sign Co-Sign Detail Recorded Client Recorded Date Recorded By Document 01/21/19 11:46 MW [id number] 01/21/19 11:51 MW 01/21/19 11:46 Wound Center Nurse 2 [Procedure/Treatment] #1 [facility] med -Time 11:46 -Correct Patient Yes -Correct Side, Site, Position Yes -Correct Procedure Yes -Procedure Performed Yes -Type of Procedure Debridement -Clinical Debridement Subcutaneous -Post Debridement Size (cm) - Length 3.6 -Post Debridement Size (cm) - Width 2.4 -Post Debridement Size (cm) - Depth 1.0 -Total Square Cm 8.64 -Wound/Ulcer Outcome Not Healed -Ulcer Cleansing Rinsed/ Irrigated with Saline -Foul Odor after Cleansing No -Bioengineered Tissue No -Bleeding Controlled with Pressure -Other TUNNEL @9 - 1. 0CM -Offloading No -Treatment Response Procedure Tolerated Well [See Physician Procedure note for Specifics] Pain Scale: 0-10 Numeric [Pain] -Is Patient Pain Free? Yes Musculoskeletal: No Muscle Wasting Neurological: Cranial nerves II-XII grossly intact Psych/Mental Status: Normal Affect Debridement Note Post-Debridement Measurements/Treatment WC - Nurse 2 - General Ulcer CM Notes Start: 01/14/19 14:38 Freq: Status: Active Protocol: Activity Type Activity Date Activity User E-Sign Co-Sign Detail Recorded Client Recorded Date Recorded By Document 01/14/19 15:59 AN [id number] 01/14/19 16:08 AN Document 01/21/19 11:46 MW [id number] 01/21/19 11:51 MW 01/14/19 01/21/19 15:59 11:46 Wound Center Nurse 2 #1 [facility] med -Time 16:03 11:46 -Correct Patient Yes Yes -Correct Side, Site, Position Yes Yes -Correct Procedure Yes Yes -Procedure Performed Yes Yes -Type of Procedure Debridement Debridement -Clinical Debridement Subcutaneous Subcutaneous -Post Debridement Size (cm) - Length 4.5 3.6 -Post Debridement Size (cm) - Width 2.8 2.4 -Post Debridement Size (cm) - Depth 2.1 1.0 -Total Square Cm 12.60 8.64 -Wound/Ulcer Outcome Not Healed Not Healed -Ulcer Cleansing Rinsed/ Irrigated with Saline -Foul Odor after Cleansing No -Bioengineered Tissue No -Bleeding Controlled with Pressure -Other TUNNEL @9 - 1. 0CM -Offloading No -Treatment Response Procedure Tolerated Well Pain Scale: 0-10 Numeric Is Patient Pain Free? Yes Wound debrided: Right lower extremity Wound Grade/Stage: Stage III Type of Debridement: Excisional debridement Anesthesia Used: 4% Lidocaine Solution Depth: Down to and including healthy tissue, in the subcutaneous layer Percentage of wound debrided: 100 Instrument Used: 5mm curette Tissue Removed: Slough and devitalized tissue Severity: Fat Layer Exposed Amount of bleeding with debridement: Mild Bleeding Controlled with: Pressure Patient tolerated procedure well Assessment/Plan Active Problems Fall (Acute) 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 (Chronic) PVD (peripheral vascular disease) (Chronic) Decreased dorsalis pedis pulse (Acute) Type II diabetes mellitus (Chronic) Assessment: Nonhealing ulcer status post traumatic hematoma to right anterior lower extremity, suspect venous component. Plan: Debridement done as documented above. Procedure was well-tolerated. Appears to be improving. No significant concerns at this time. Continue Mandy with Adaptic over top. Change daily. Continue edema management. Elevate lower extremities when seated in bed. Increased protein intake was recommended. All questions were answered and she was advised to call with any further questions or concerns. Follow-up in 1 week with Kuldeep Encarnacion NP. This note was generated with [employer] dictation software. It may contain incorrect words, spelling, and punctuation that were not noted in checking the note before signing.
--- NOTE | 2019-01-21 16:38 | PN.PCM_ITS ---
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 Status: Chronic Current Visit: Yes Code(s): L97.912 - Non-pressure chronic ulcer of unspecified part of right lower leg with fat layer exposed (2) PVD (peripheral vascular disease) Status: Chronic Current Visit: Yes Code(s): I73.9 - Peripheral vascular disease, unspecified (3) Type II diabetes mellitus Status: Chronic Current Visit: Yes Qualifiers: Code(s): E11.9 - Type 2 diabetes mellitus without complications Type of Wound Chief Complaint: Nonhealing ulceration to right anterior lower extremity times 2 months History of Wound: This is a 73-year-old white female who presents to the wound healing center today with complaints of nonhealing ulcer to the right anterior lower extremity for 2 months. She has a past medical history significant for: Obesity, GERD, HTN, HLD, Chronic CHF Unclear Type, PAF, Anxiety and Depression, Seizure disorder, Diabetes mellitus type II uncontrolled, ERIC, CKD stage III. The patient states that initially the injury occurred roughly 2 months ago where she fell and came into contact with the side of her refrigerator and a hematoma occurred. She states that the hematoma persisted until a couple of weeks ago when she was seen by Dr. Jacques who unroofed the necrotic hematoma. She states that the ulceration has been open since then and draining a small amount of serosanguineous fluid. Her wound care has consisted of rinsing the wound with saline daily. She states that her diabetes is not well controlled and she does not routinely check her blood sugars. She denies any recent cultures being taken or being on any antibiotics. She denies any signs of systemic or localized infection at this time. The patient otherwise denies any fever, chills, nausea, vomiting, shortness of breath, chest pain or pressure, p alpitations, orthopnea, lower extremity edema, syncope or presyncopal episodes. Progress of Wound: Courtesy visit for Kuldeep Encarnacion NP. Ms. South is a 73-year-old been managed for post hematoma ulceration of her right lower extremity. Initially seen a week ago. Started on Mandy. Has done well so far. Denies any concerns at this time. - Physical Exam Vital Signs Temp Pulse Resp BP 96.4 F L 100 18 140/77 H 01/21/19 11:08 01/21/19 11:08 01/21/19 11:08 01/21/19 11:08 General: Alert, Oriented x3, Cooperative, No apparent distress HEENT: Atraumatic, Normocephalic Oral: Moist Mucosa Neck: Supple Lungs: Normal air movement Extremities: No cyanosis, Edema Skin: Ulcer/ Wound Wound Measurements and Assessment WC - Nurse 1 - General Ulcer Measurement Start: 01/14/19 14:38 Freq: Status: Active Protocol: Activity Type Activity Date Activity User E-Sign Co-Sign Detail Recorded Client Recorded Date Recorded By Document 01/21/19 11:08 BMF [id number] 01/21/19 11:17 BMF 01/21/19 11:08 Wound Center Nurse 1 [Ulcer Assessment] #1 [facility] med -Combined with other wound No -Current Size (cm) - Length 4 -Current Size (cm) - Width 2.4 -Current Size (cm) - Depth 0.7 -Total Square Cm 9.6 -Photo Taken No -Epithelialization None Present -Tunneling Yes -Tunneling Position (O'clock) 9 -Tunneling Distance (cm) 0.4 -Undermining/Tunneling No -Circular Undermining No -Exudate Amt Medium -Exudate Type Serous -Wound Margin Distinct, Outline Attached -Granulation Amt Small (1-33%) -Granulation Quality Red -Slough/Fibrin Yes -Necrosis Amt Medium (34-66%) -Necrotic Tissue Type Adherent Slough -Texture (Zamzam-wound Skin Appearance) Assessed Scarring -Moisture (Zamzam-wound Skin Appearance Assessed ) Dry/Scaly -Color (Zamzam-wound Skin Appearance) Assessed Erythema -Temperature (Zamzam-wound Skin No Abnormality Appearance) (Pt Warm) -Tenderness on Palpation (Zamzam-wound No Skin Appearance) -Ulcer Cleansing Rinsed/ Irrigated with Saline -Foul Odor after Cleansing No -Anesthetic Used 5% Lidocaine Gel [Edema Assessment] -Lower Limb Edema Present Yes -Right Calf (cm) 41.9 -Right Ankle (cm) 25.8 WC - Nurse 2 - General Ulcer CM Notes Start: 01/14/19 14:38 Freq: Status: Active Protocol: Activity Type Activity Date Activity User E-Sign Co-Sign Detail Recorded Client Recorded Date Recorded By Document 01/21/19 11:46 MW [id number] 01/21/19 11:51 MW 01/21/19 11:46 Wound Center Nurse 2 [Procedure/Treatment] #1 [facility] med -Time 11:46 -Correct Patient Yes -Correct Side, Site, Position Yes -Correct Procedure Yes -Procedure Performed Yes -Type of Procedure Debridement -Clinical Debridement Subcutaneous -Post Debridement Size (cm) - Length 3.6 -Post Debridement Size (cm) - Width 2.4 -Post Debridement Size (cm) - Depth 1.0 -Total Square Cm 8.64 -Wound/Ulcer Outcome Not Healed -Ulcer Cleansing Rinsed/ Irrigated with Saline -Foul Odor after Cleansing No -Bioengineered Tissue No -Bleeding Controlled with Pressure -Other TUNNEL @9 - 1. 0CM -Offloading No -Treatment Response Procedure Tolerated Well [See Physician Procedure note for Specifics] Pain Scale: 0-10 Numeric [Pain] -Is Patient Pain Free? Yes Musculoskeletal: No Muscle Wasting Neurological: Cranial nerves II-XII grossly intact Psych/Mental Status: Normal Affect Debridement Note Post-Debridement Measurements/Treatment WC - Nurse 2 - General Ulcer CM Notes Start: 01/14/19 14:38 Freq: Status: Active Protocol: Activity Type Activity Date Activity User E-Sign Co-Sign Detail Recorded Client Recorded Date Recorded By Document 01/14/19 15:59 AN [id number] 01/14/19 16:08 AN Document 01/21/19 11:46 MW [id number] 01/21/19 11:51 MW 01/14/19 01/21/19 15:59 11:46 Wound Center Nurse 2 #1 [facility] med -Time 16:03 11:46 -Correct Patient Yes Yes -Correct Side, Site, Position Yes Yes -Correct Procedure Yes Yes -Procedure Performed Yes Yes -Type of Procedure Debridement Debridement -Clinical Debridement Subcutaneous Subcutaneous -Post Debridement Size (cm) - Length 4.5 3.6 -Post Debridement Size (cm) - Width 2.8 2.4 -Post Debridement Size (cm) - Depth 2.1 1.0 -Total Square Cm 12.60 8.64 -Wound/Ulcer Outcome Not Healed Not Healed -Ulcer Cleansing Rinsed/ Irrigated with Saline -Foul Odor after Cleansing No -Bioengineered Tissue No -Bleeding Controlled with Pressure -Other TUNNEL @9 - 1. 0CM -Offloading No -Treatment Response Procedure Tolerated Well Pain Scale: 0-10 Numeric Is Patient Pain Free? Yes Wound debrided: Right lower extremity Wound Grade/Stage: Stage III Type of Debridement: Excisional debridement Anesthesia Used: 4% Lidocaine Solution Depth: Down to and including healthy tissue, in the subcutaneous layer Percentage of wound debrided: 100 Instrument Used: 5mm curette Tissue Removed: Slough and devitalized tissue Severity: Fat Layer Exposed Amount of bleeding with debridement: Mild Bleeding Controlled with: Pressure Patient tolerated procedure well Assessment/Plan Active Problems Fall (Acute) 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 (Chronic) PVD (peripheral vascular disease) (Chronic) Decreased dorsalis pedis pulse (Acute) Type II diabetes mellitus (Chronic) Assessment: Nonhealing ulcer status post traumatic hematoma to right anterior lower extremity, suspect venous component. Plan: Debridement done as documented above. Procedure was well-tolerated. Appears to be improving. No significant concerns at this time. Continue Mandy with Adaptic over top. Change daily. Continue edema management. Elevate lower extremities when seated in bed. Increased protein intake was recommended. All questions were answered and she was advised to call with any further questions or concerns. Follow-up in 1 week with Kuldeep Encarnacion NP. This note was generated with [employer] dictation software. It may contain incorrect words, spelling, and punctuation that were not noted in checking the note before signing.
[2019-01-28 14:35] VITALS: BP 165/88; PULSE 122; RESP 18; TEMP 35.4; BMI 35.8
[2019-02-01 13:52] VITALS: BP 150/80; PULSE 86; RESP 18; TEMP 35.9; BMI 35.8
--- NOTE | 2019-02-02 17:27 | PCM.WC.PN ---
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 Status: Chronic Current Visit: Yes Code(s): L97.912 - Non-pressure chronic ulcer of unspecified part of right lower leg with fat layer exposed (2) PVD (peripheral vascular disease) Status: Chronic Current Visit: Yes Code(s): I73.9 - Peripheral vascular disease, unspecified (3) Decreased dorsalis pedis pulse Status: Acute Current Visit: Yes Code(s): R09.89 - Other specified symptoms and signs involving the circulatory and respiratory systems (4) Fall Status: Acute Current Visit: Yes Qualifiers: Code(s): W19.XXXA - Unspecified fall, initial encounter (5) CAD (coronary artery disease) Status: Chronic Current Visit: No Qualifiers: Code(s): I25.10 - Atherosclerotic heart disease of [place] coronary artery without angina pectoris (6) CKD (chronic kidney disease) stage 3, GFR 30-59 ml/min Status: Chronic Current Visit: No (7) Chronic CHF Status: Chronic Current Visit: No Qualifiers: Code(s): I50.9 - Heart failure, unspecified (8) Hyperlipidemia Status: Chronic Current Visit: No Qualifiers: Code(s): E78.5 - Hyperlipidemia, unspecified (9) Hypertension Status: Chronic Current Visit: No Qualifiers: Code(s): I10 - Essential (primary) hypertension (10) Osteoarthritis Status: Chronic Current Visit: No Qualifiers: (11) Sleep apnea Status: Chronic Current Visit: No Qualifiers: Code(s): G47.30 - Sleep apnea, unspecified (12) Type II diabetes mellitus Status: Chronic Current Visit: Yes Qualifiers: Code(s): E11.9 - Type 2 diabetes mellitus without complications Type of Wound Date of Service: 01/28/19 Chief Complaint: Nonhealing ulceration to right anterior lower extremity times 2 months History of Wound: This is a 73-year-old white female who presents to the wound healing center today with complaints of nonhealing ulcer to the right anterior lower extremity for 2 months. She has a past medical history significant for: Obesity, GERD, HTN, HLD, Chronic CHF Unclear Type, PAF, Anxiety and Depression, Seizure disorder, Diabetes mellitus type II uncontrolled, ERIC, CKD stage III. The patient states that initially the injury occurred roughly 2 months ago where she fell and came into contact with the side of her refrigerator and a hematoma occurred. She states that the hematoma persisted until a couple of weeks ago when she was seen by Dr. Jacques who unroofed the necrotic hematoma. She states that the ulceration has been open since then and draining a small amount of serosanguineous fluid. Her wound care has consisted of rinsing the wound with saline daily. She states that her diabetes is not well controlled and she does not routinely check her blood sugars. She denies any recent cultures being taken or being on any antibiotics. She denies any signs of systemic or localized infection at this time. The patient otherwise denies any fever, chills, nausea, vomiting, shortness of breath, chest pain or pressure, palpitations, orthopnea, lower extremity edema, syncope or presyncopal episodes. Progress of Wound: Post hematoma ulceration of her right lower extremity wound bed is moist and pink without any signs of infection at this time. - Physical Exam Vital Signs Temp Pulse Resp BP 96.6 F L 86 18 150/80 H 02/01/19 13:52 02/01/19 13:52 02/01/19 13:52 02/01/19 13:52 General: Alert, Oriented x3, Cooperative, No apparent distress HEENT: Atraumatic Lungs: Clear to auscultation Cardiovascular: Regular rate Extremities: No clubbing, No cyanosis, Edema - Generalized bilateral lower extremity edema Skin: Ulcer/ Wound - Ulceration to right anterior lower extremity status post traumatic hematoma with adherent slough to wound bed, no signs of obvious infection at this time. Neurological: Neuro grossly intact Psych/Mental Status: Normal Affect, Appropriate, Alert and oriented to time, place, person, mood and affect Debridement Note Post-Debridement Measurements/Treatment WC - Nurse 2 - General Ulcer CM Notes Start: 01/14/19 14:38 Freq: Status: Active Protocol: Activity Type Activity Date Activity User E-Sign Co-Sign Detail Recorded Client Recorded Date Recorded By Document 01/14/19 15:59 AN [id number] 01/14/19 16:08 AN Document 01/21/19 11:46 MW [id number] 01/21/19 11:51 MW Document 01/28/19 15:26 AN [id number] 01/28/19 15:28 AN 01/14/19 01/21/19 01/28/19 15:59 11:46 15:26 Wound Center Nurse 2 #1 [id number] med -Time 16:03 11:46 15:26 -Correct Patient Yes Yes Yes -Correct Side, Site, Position Yes Yes Yes -Correct Procedure Yes Yes Yes -Procedure Performed Yes Yes Yes -Type of Procedure Debridement Debridement Debridement -Clinical Debridement Subcutaneous Subcutaneous Subcutaneous -Post Debridement Size (cm) - Length 4.5 3.6 3.5 -Post Debridement Size (cm) - Width 2.8 2.4 2.4 -Post Debridement Size (cm) - Depth 2.1 1.0 0.9 -Total Square Cm 12.60 8.64 8.40 -Wound/Ulcer Outcome Not Healed Not Healed Not Healed -Ulcer Cleansing Rinsed/ Rinsed/ Irrigated with Irrigated with Saline Saline -Foul Odor after Cleansing No No -Bioengineered Tissue No No -Bleeding Controlled with Pressure Pressure -Other TUNNEL @9 - 1. 0CM -Offloading No No -Treatment Response Procedure Procedure Tolerated Well Tolerated Well Pain Scale: 0-10 Numeric Is Patient Pain Free? Yes Yes Wound debrided: Right anterior lower extremity ulcer status post traumatic hematoma Laterality: Right Type of Debridement: Excisional debridement Anesthesia Used: 5% Lidocaine Gel Depth: in the subcutaneous layer Percentage of wound debrided: 100 Instrument Used: 5mm curette Tissue Removed: Slough and devitalized tissue Severity: Fat Layer Exposed Amount of bleeding with debridement: Mild Bleeding Controlled with: Pressure Patient tolerated procedure well Assessment/Plan Active Problems Fall (Acute) 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 (Chronic) PVD (peripheral vascular disease) (Chronic) Decreased dorsalis pedis pulse (Acute) Type II diabetes mellitus (Chronic) Assessment: Nonhealing ulcer status post traumatic hematoma to right anterior lower extremity, suspect venous component. Plan: The patient was seen and examined at the wound center today and was updated on the plan of care. A subcutaneous debridement was performed today. The patient tolerated the procedure well. The patients wound care will consist of: apply snap vac today with nurse visit change in 4 days . Tubigrip for compression. Wound cultures were collected prior and demonstrated Staphylococcus and Streptococcus +1, no antibiotics initiated as wound bed appears healthy and without signs of infection. Baseline bloodwork ordered and pending. Vascular studies ordered and pending. Patient educated on the importance of diet on wound healing and instructed to increase protein and vitamin C intake. Trish was called to her pharmacy. A referral was made to nutrition services for her poorly controlled diabetes. Did defer this back to the PCP as well. Patient verbalized understanding. Patient will follow up at wound healing center in one week or sooner if needed. This note was generated with [employer] dictation software. It may contain incorrect words, spelling, and punctuation that were not noted in checking the note before signing. Code Visit [id number]: 00480 Sonia subq tissue 20 sq cm/<
--- NOTE | 2019-02-02 17:32 | PN.PCM_ITS ---
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 Status: Chronic Current Visit: Yes Code(s): L97.912 - Non-pressure chronic ulcer of unspecified part of right lower leg with fat layer exposed (2) PVD (peripheral vascular disease) Status: Chronic Current Visit: Yes Code(s): I73.9 - Peripheral vascular disease, unspecified (3) Decreased dorsalis pedis pulse Status: Acute Current Visit: Yes Code(s): R09.89 - Other specified symptoms and signs involving the circulatory and respiratory systems (4) Fall Status: Acute Current Visit: Yes Qualifiers: Code(s): W19.XXXA - Unspecified fall, initial encounter (5) CAD (coronary artery disease) Status: Chronic Current Visit: No Qualifiers: Code(s): I25.10 - Atherosclerotic heart disease of [place] coronary artery without angina pectoris (6) CKD (chronic kidney disease) stage 3, GFR 30-59 ml/min Status: Chronic Current Visit: No (7) Chronic CHF Status: Chronic Current Visit: No Qualifiers: Code(s): I50.9 - Heart failure, unspecified (8) Hyperlipidemia Status: Chronic Current Visit: No Qualifiers: Code(s): E78.5 - Hyperlipidemia, unspecified (9) Hypertension Status: Chronic Current Visit: No Qualifiers: Code(s): I10 - Essential (primary) hypertension (10) Osteoarthritis Status: Chronic Current Visit: No Qualifiers: (11) Sleep apnea Status: Chronic Current Visit: No Qualifiers: Code(s): G47.30 - Sleep apnea, unspecified (12) Type II diabetes mellitus Status: Chronic Current Visit: Yes Qualifiers: Code(s): E11.9 - Type 2 diabetes mellitus without complications Type of Wound Date of Service: 01/28/19 Chief Complaint: Nonhealing ulceration to right anterior lower extremity times 2 months History of Wound: This is a 73-year-old white female who presents to the wound healing center today with complaints of nonhealing ulcer to the right anterior lower extremity for 2 months. She has a past medical history significant for: Obesity, GERD, HTN, HLD, Chronic CHF Unclear Type, PAF, Anxiety and Depression, Seizure disorder, Diabetes mellitus type II uncontrolled, ERIC, CKD stage III. The patient states that initially the injury occurred roughly 2 months ago where she fell and came into contact with the side of her refrigerator and a hematoma occurred. She states that the hematoma persisted until a couple of weeks ago when she was seen by Dr. Jacques who unroofed the necrotic hematoma. She states that the ulceration has been open since then and draining a small amount of serosanguineous fluid. Her wound care has consisted of rinsing the wound with saline daily. She states that her diabetes is not well controlled and she does not routinely check her blood sugars. She denies any recent cultures being taken or being on any antibiotics. She denies any signs of systemic or localized infection at this time. The patient otherwise denies any fever, chills, nausea, vomiting, shortness of breath, chest pain or pressure, palpitations, orthopnea, lower extremity edema, syncope or presyncopal episodes. Progress of Wound: Post hematoma ulceration of her right lower extremity wound bed is moist and pink without any signs of infection at this time. - Physical Exam Vital Signs Temp Pulse Resp BP 96.6 F L 86 18 150/80 H 02/01/19 13:52 02/01/19 13:52 02/01/19 13:52 02/01/19 13:52 General: Alert, Oriented x3, Cooperative, No apparent distress HEENT: Atraumatic Lungs: Clear to auscultation Cardiovascular: Regular rate Extremities: No clubbing, No cyanosis, Edema - Generalized bilateral lower extremity edema Skin: Ulcer/ Wound - Ulceration to right anterior lower extremity status post traumatic hematoma with adherent slough to wound bed, no signs of obvious infection at this time. Neurological: Neuro grossly intact Psych/Mental Status: Normal Affect, Appropriate, Alert and oriented to time, place, person, mood and affect Debridement Note Post-Debridement Measurements/Treatment WC - Nurse 2 - General Ulcer CM Notes Start: 01/14/19 14:38 Freq: Status: Active Protocol: Activity Type Activity Date Activity User E-Sign Co-Sign Detail Recorded Client Recorded Date Recorded By Document 01/14/19 15:59 AN [id number] 01/14/19 16:08 AN Document 01/21/19 11:46 MW [id number] 01/21/19 11:51 MW Document 01/28/19 15:26 AN [id number] 01/28/19 15:28 AN 01/14/19 01/21/19 01/28/19 15:59 11:46 15:26 Wound Center Nurse 2 #1 [id number] med -Time 16:03 11:46 15:26 -Correct Patient Yes Yes Yes -Correct Side, Site, Position Yes Yes Yes -Correct Procedure Yes Yes Yes -Procedure Performed Yes Yes Yes -Type of Procedure Debridement Debridement Debridement -Clinical Debridement Subcutaneous Subcutaneous Subcutaneous -Post Debridement Size (cm) - Length 4.5 3.6 3.5 -Post Debridement Size (cm) - Width 2.8 2.4 2.4 -Post Debridement Size (cm) - Depth 2.1 1.0 0.9 -Total Square Cm 12.60 8.64 8.40 -Wound/Ulcer Outcome Not Healed Not Healed Not Healed -Ulcer Cleansing Rinsed/ Rinsed/ Irrigated with Irrigated with Saline Saline -Foul Odor after Cleansing No No -Bioengineered Tissue No No -Bleeding Controlled with Pressure Pressure -Other TUNNEL @9 - 1. 0CM -Offloading No No -Treatment Response Procedure Procedure Tolerated Well Tolerated Well Pain Scale: 0-10 Numeric Is Patient Pain Free? Yes Yes Wound debrided: Right anterior lower extremity ulcer status post traumatic hematoma Laterality: Right Type of Debridement: Excisional debridement Anesthesia Used: 5% Lidocaine Gel Depth: in the subcutaneous layer Percentage of wound debrided: 100 Instrument Used: 5mm curette Tissue Removed: Slough and devitalized tissue Severity: Fat Layer Exposed Amount of bleeding with debridement: Mild Bleeding Controlled with: Pressure Patient tolerated procedure well Assessment/Plan Active Problems Fall (Acute) 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 (Chronic) PVD (peripheral vascular disease) (Chronic) Decreased dorsalis pedis pulse (Acute) Type II diabetes mellitus (Chronic) Assessment: Nonhealing ulcer status post traumatic hematoma to right anterior lower extremity, suspect venous component. Plan: The patient was seen and examined at the wound center today and was updated on the plan of care. A subcutaneous debridement was performed today. The patient tolerated the procedure well. The patients wound care will consist of: apply snap vac today with nurse visit change in 4 days . Tubigrip for compression. Wound cultures were collected prior and demonstrated Staphylococcus and Streptococcus +1, no antibiotics initiated as wound bed appears healthy and without signs of infection. Baseline bloodwork ordered and pending. Vascular studies ordered and pending. Patient educated on the importance of diet on wound healing and instructed to increase protein and vitamin C intake. Trish was called to her pharmacy. A referral was made to nutrition services for her poorly controlled diabetes. Did defer this back to the PCP as well. Patient verbalized understanding. Patient will follow up at wound healing center in one week or sooner if needed. This note was generated with [employer] dictation software. It may contain incorrect words, spelling, and punctuation that were not noted in checking the note before signing. Code Visit 111xxx-113xx: 94997 Sonia subq tissue 20 sq cm/<
[2019-02-04 14:38] VITALS: BP 151/90; PULSE 97; RESP 16; TEMP 36; BMI 35.8
--- NOTE | 2019-02-04 19:18 | PCM.WC.PN ---
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 Status: Chronic Code(s): L97.912 - Non-pressure chronic ulcer of unspecified part of right lower leg with fat layer exposed (2) PVD (peripheral vascular disease) Status: Chronic Code(s): I73.9 - Peripheral vascular disease, unspecified (3) Decreased dorsalis pedis pulse Status: Acute Code(s): R09.89 - Other specified symptoms and signs involving the circulatory and respiratory systems (4) Fall Status: Acute Qualifiers: Code(s): W19.XXXA - Unspecified fall, initial encounter (5) CAD (coronary artery disease) Status: Chronic Qualifiers: Code(s): I25.10 - Atherosclerotic heart disease of [place] coronary artery without angina pectoris (6) CKD (chronic kidney disease) stage 3, GFR 30-59 ml/min Status: Chronic (7) Chronic CHF Status: Chronic Qualifiers: Code(s): I50.9 - Heart failure, unspecified (8) Hyperlipidemia Status: Chronic Qualifiers: Code(s): E78.5 - Hyperlipidemia, unspecified (9) Hypertension Status: Chronic Qualifiers: Code(s): I10 - Essential (primary) hypertension (10) Osteoarthritis Status: Chronic Qualifiers: (11) Sleep apnea Status: Chronic Qualifiers: Code(s): G47.30 - Sleep apnea, unspecified (12) Type II diabetes mellitus Status: Chronic Qualifiers: Code(s): E11.9 - Type 2 diabetes mellitus without complications Type of Wound Date of Service: 02/04/19 Chief Complaint: Nonhealing ulceration to right anterior lower extremity times 2 months History of Wound: This is a 73-year-old white female who presents to the wound healing center today with complaints of nonhealing ulcer to the right anterior lower extremity for 2 months. She has a past medical history significant for: Obesity, GERD, HTN, HLD, Chronic CHF Unclear Type, PAF, Anxiety and Depression, Seizure disorder, Diabetes mellitus type II uncontrolled, ERIC, CKD stage III. The patient states that initially the injury occurred roughly 2 months ago where she fell and came into contact with the side of her refrigerator and a hematoma occurred. She states that the hematoma persisted until a couple of weeks ago when she was seen by Dr. Jacques who unroofed the necrotic hematoma. She states that the ulceration has been open since then and draining a small amount of serosanguineous fluid. Her wound care has consisted of rinsing the wound with saline daily. She states that her diabetes is not well controlled and she does not routinely check her blood sugars. She denies any recent cultures being taken or being on any antibiotics. She denies any signs of systemic or localized infection at this time. The patient otherwise denies any fever, chills, nausea, vomiting, shortness of breath, chest pain or pressure, palpitations, orthopnea, lower extremity edema, syncope or presyncopal episodes. Progress of Wound: Post hematoma ulceration of her right lower extremity wound bed is moist and pink without any signs of infection at this time. Depth improving, pt tolerated SNAP vac well - Physical Exam Vital Signs Temp Pulse Resp BP 96.8 F L 97 16 151/90 H 02/04/19 14:38 02/04/19 14:38 02/04/19 14:38 02/04/19 14:38 General: Alert, Oriented x3, Cooperative, No apparent distress HEENT: Atraumatic Oral: Moist Mucosa Lungs: Clear to auscultation Cardiovascular: Regular rate Abdomen: Soft, Non Tender Extremities: No clubbing, No cyanosis, Edema - Generalized bilateral lower extremity edema, Peripheral Pulses Normal Skin: Ulcer/ Wound - Wound to right anterior lower extremity granular, wound bed is moist and pink, slough present no signs of obvious infection at this time. Neurological: Neuro grossly intact Psych/Mental Status: Normal Affect, Appropriate, Alert and oriented to time, place, person, mood and affect Debridement Note Post-Debridement Measurements/Treatment WC - Nurse 2 - General Ulcer CM Notes Start: 01/14/19 14:38 Freq: Status: Active Protocol: Activity Type Activity Date Activity User E-Sign Co-Sign Detail Recorded Client Recorded Date Recorded By Document 01/14/19 15:59 AN [id number] 01/14/19 16:08 AN Document 01/21/19 11:46 MW [id number] 01/21/19 11:51 MW Document 01/28/19 15:26 AN [id number] 01/28/19 15:28 AN Document 02/04/19 15:23 AN [id number] 02/04/19 15:34 AN 01/14/19 01/21/19 01/28/19 15:59 11:46 15:26 Wound Center Nurse 2 #1 [facility] med -Time 16:03 11:46 15:26 -Correct Patient Yes Yes Yes -Correct Side, Site, Position Yes Yes Yes -Correct Procedure Yes Yes Yes -Procedure Performed Yes Yes Yes -Type of Procedure Debridement Debridement Debridement -Clinical Debridement Subcutaneous Subcutaneous Subcutaneous -Post Debridement Size (cm) - Length 4.5 3.6 3.5 -Post Debridement Size (cm) - Width 2.8 2.4 2.4 -Post Debridement Size (cm) - Depth 2.1 1.0 0.9 -Total Square Cm 12.60 8.64 8.40 -Wound/Ulcer Outcome Not Healed Not Healed Not Healed -Ulcer Cleansing Rinsed/ Rinsed/ Irrigated with Irrigated with Saline Saline -Foul Odor after Cleansing No No -Bioengineered Tissue No No -Type of bioengineered Tissue -Expiration Date -Product Lot Number -Percent Used -Saline Lot Number -Bleeding Controlled with Pressure Pressure -Other TUNNEL @9 - 1. 0CM -Offloading No No -Treatment Response Procedure Procedure Tolerated Well Tolerated Well Pain Scale: 0-10 Numeric Is Patient Pain Free? Yes Yes 02/04/19 15:23 Wound Center Nurse 2 #1 [facility] med -Time 15:23 -Correct Patient Yes -Correct Side, Site, Position Yes -Correct Procedure Yes -Procedure Performed Yes -Type of Procedure Debridement -Clinical Debridement Subcutaneous -Post Debridement Size (cm) - Length 3.6 -Post Debridement Size (cm) - Width 2.0 -Post Debridement Size (cm) - Depth 0.7 -Total Square Cm 7.20 -Wound/Ulcer Outcome Not Healed -Ulcer Cleansing Rinsed/ Irrigated with Saline -Foul Odor after Cleansing No -Bioengineered Tissue Yes -Type of bioengineered Tissue [id number] -Expiration Date 11/13/20 -Product Lot Number [id number] -Percent Used 100 -Saline Lot Number [id number] -Bleeding Controlled with Pressure -Other -Offloading -Treatment Response Procedure Tolerated Well Pain Scale: 0-10 Numeric Is Patient Pain Free? Yes Wound debrided: Wound to right anterior lower extremity Laterality: Right Type of Debridement: Excisional debridement Anesthesia Used: 5% Lidocaine Gel Depth: in the subcutaneous layer Percentage of wound debrided: 100 Instrument Used: 5mm curette Tissue Removed: Slough and devitalized tissue Severity: Fat Layer Exposed Amount of bleeding with debridement: Mild Bleeding Controlled with: Pressure Patient tolerated procedure well Assessment/Plan Assessment: Nonhealing ulcer status post traumatic hematoma to right anterior lower extremity, suspect venous component. Plan: The patient was seen and examined at the wound center today and was updated on the plan of care. A subcutaneous debridement was performed today. The patient tolerated the procedure well. The patients wound care will consist of: Pure apply #1 was applied after subcutaneous debridement, the snap VAC was then applied afterwards and secured, 100% of the product was used with 0% waste. Patient tolerated the procedure well. Tubigrip for compression. Wound cultures were collected prior and demonstrated Staphylococcus and Streptococcus +1, no antibiotics initiated as wound bed appears healthy and without signs of infection. Baseline bloodwork ordered and pending. Vascular studies ordered and pending. Patient educated on the importance of diet on wound healing and instructed to increase protein and vitamin C intake. Glucmandeep was called to her pharmacy. A referral was made to nutrition services for her poorly controlled diabetes. Did defer this back to the PCP as well. Patient verbalized understanding. Patient will follow up at wound healing center in one week or sooner if needed. This note was generated with [employer] dictation software. It may contain incorrect words, spelling, and punctuation that were not noted in checking the note before signing. Code Visit 150xxx-152xx: 23181 Skin sub graft trnk/arm/leg
--- NOTE | 2019-02-09 09:22 | PN.PCM_ITS ---
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 Status: Chronic Code(s): L97.912 - Non-pressure chronic ulcer of unspecified part of right lower leg with fat layer exposed (2) PVD (peripheral vascular disease) Status: Chronic Code(s): I73.9 - Peripheral vascular disease, unspecified (3) Decreased dorsalis pedis pulse Status: Acute Code(s): R09.89 - Other specified symptoms and signs involving the circulatory and respiratory systems (4) Fall Status: Acute Qualifiers: Code(s): W19.XXXA - Unspecified fall, initial encounter (5) CAD (coronary artery disease) Status: Chronic Qualifiers: Code(s): I25.10 - Atherosclerotic heart disease of [place] coronary artery without angina pectoris (6) CKD (chronic kidney disease) stage 3, GFR 30-59 ml/min Status: Chronic (7) Chronic CHF Status: Chronic Qualifiers: Code(s): I50.9 - Heart failure, unspecified (8) Hyperlipidemia Status: Chronic Qualifiers: Code(s): E78.5 - Hyperlipidemia, unspecified (9) Hypertension Status: Chronic Qualifiers: Code(s): I10 - Essential (primary) hypertension (10) Osteoarthritis Status: Chronic Qualifiers: (11) Sleep apnea Status: Chronic Qualifiers: Code(s): G47.30 - Sleep apnea, unspecified (12) Type II diabetes mellitus Status: Chronic Qualifiers: Code(s): E11.9 - Type 2 diabetes mellitus without complications Type of Wound Date of Service: 02/04/19 Chief Complaint: Nonhealing ulceration to right anterior lower extremity times 2 months History of Wound: This is a 73-year-old white female who presents to the wound healing center today with complaints of nonhealing ulcer to the right anterior lower extremity for 2 months. She has a past medical history significant for: Obesity, GERD, HTN, HLD, Chronic CHF Unclear Type, PAF, Anxiety and Depression, Seizure disorder, Diabetes mellitus type II uncontrolled, ERIC, CKD stage III. The patient states that initially the injury occurred roughly 2 months ago where she fell and came into contact with the side of her refrigerator and a hematoma occurred. She states that the hematoma persisted until a couple of weeks ago wh en she was seen by Dr. Jacques who unroofed the necrotic hematoma. She states that the ulceration has been open since then and draining a small amount of serosanguineous fluid. Her wound care has consisted of rinsing the wound with saline daily. She states that her diabetes is not well controlled and she does not routinely check her blood sugars. She denies any recent cultures being taken or being on any antibiotics. She denies any signs of systemic or localized infection at this time. The patient otherwise denies any fever, chills, nausea, vomiting, shortness of breath, chest pain or pressure, palpitations, orthopnea, lower extremity edema, syncope or presyncopal episodes. Progress of Wound: Post hematoma ulceration of her right lower extremity wound bed is moist and pink without any signs of infection at this time. Depth improving, pt tolerated SNAP vac well - Physical Exam Vital Signs Temp Pulse Resp BP 96.8 F L 97 16 151/90 H 02/04/19 14:38 02/04/19 14:38 02/04/19 14:38 02/04/19 14:38 General: Alert, Oriented x3, Cooperative, No apparent distress HEENT: Atraumatic Oral: Moist Mucosa Lungs: Clear to auscultation Cardiovascular: Regular rate Abdomen: Soft, Non Tender Extremities: No clubbing, No cyanosis, Edema - Generalized bilateral lower extremity edema, Peripheral Pulses Normal Skin: Ulcer/ Wound - Wound to right anterior lower extremity granular, wound bed is moist and pink, slough present no signs of obvious infection at this time. Neurological: Neuro grossly intact Psych/Mental Status: Normal Affect, Appropriate, Alert and oriented to time, place, person, mood and affect Debridement Note Post-Debridement Measurements/Treatment WC - Nurse 2 - General Ulcer CM Notes Start: 01/14/19 14:38 Freq: Status: Active Protocol: Activity Type Activity Date Activity User E-Sign Co-Sign Detail Recorded Client Recorded Date Recorded By Document 01/14/19 15:59 AN [id number] 01/14/19 16:08 AN Document 01/21/19 11:46 MW [id number] 01/21/19 11:51 MW Document 01/28/19 15:26 AN [id number] 01/28/19 15:28 AN Document 02/04/19 15:23 AN [id number] 02/04/19 15:34 AN 01/14/19 01/21/19 01/28/19 15:59 11:46 15:26 Wound Center Nurse 2 #1 [facility] med -Time 16:03 11:46 15:26 -Correct Patient Yes Yes Yes -Correct Side, Site, Position Yes Yes Yes -Correct Procedure Yes Yes Yes -Procedure Performed Yes Yes Yes -Type of Procedure Debridement Debridement Debridement -Clinical Debridement Subcutaneous Subcutaneous Subcutaneous -Post Debridement Size (cm) - Length 4.5 3.6 3.5 -Post Debridement Size (cm) - Width 2.8 2.4 2.4 -Post Debridement Size (cm) - Depth 2.1 1.0 0.9 -Total Square Cm 12.60 8.64 8.40 -Wound/Ulcer Outcome Not Healed Not Healed Not Healed -Ulcer Cleansing Rinsed/ Rinsed/ Irrigated with Irrigated with Saline Saline -Foul Odor after Cleansing No No -Bioengineered Tissue No No -Type of bioengineered Tissue -Expiration Date -Product Lot Number -Percent Used -Saline Lot Number -Bleeding Controlled with Pressure Pressure -Other TUNNEL @9 - 1. 0CM -Offloading No No -Treatment Response Procedure Procedure Tolerated Well Tolerated Well Pain Scale: 0-10 Numeric Is Patient Pain Free? Yes Yes 02/04/19 15:23 Wound Center Nurse 2 #1 [facility] med -Time 15:23 -Correct Patient Yes -Correct Side, Site, Position Yes -Correct Procedure Yes -Procedure Performed Yes -Type of Procedure Debridement -Clinical Debridement Subcutaneous -Post Debridement Size (cm) - Length 3.6 -Post Debridement Size (cm) - Width 2.0 -Post Debridement Size (cm) - Depth 0.7 -Total Square Cm 7.20 -Wound/Ulcer Outcome Not Healed -Ulcer Cleansing Rinsed/ Irrigated with Saline -Foul Odor after Cleansing No -Bioengineered Tissue Yes -Type of bioengineered Tissue [id number] -Expiration Date 11/13/20 -Product Lot Number [id number] -Percent Used 100 -Saline Lot Number [id number] -Bleeding Controlled with Pressure -Other -Offloading -Treatment Response Procedure Tolerated Well Pain Scale: 0-10 Numeric Is Patient Pain Free? Yes Wound debrided: Wound to right anterior lower extremity Laterality: Right Type of Debridement: Excisional debridement Anesthesia Used: 5% Lidocaine Gel Depth: in the subcutaneous layer Percentage of wound debrided: 100 Instrument Used: 5mm curette Tissue Removed: Slough and devitalized tissue Severity: Fat Layer Exposed Amount of bleeding with debridement: Mild Bleeding Controlled with: Pressure Patient tolerated procedure well Assessment/Plan Assessment: Nonhealing ulcer status post traumatic hematoma to right anterior lower extremity, suspect venous component. Plan: The patient was seen and examined at the wound center today and was updated on the plan of care. A subcutaneous debridement was performed today. The patient tolerated the procedure well. The patients wound care will consist of: Pure apply #1 was applied after subcutaneous debridement, the snap VAC was then applied afterwards and secured, 100% of the product was used with 0% waste. Patient tolerated the procedure well. Tubigrip for compression. Wound cultures were collected prior and demonstrated Staphylococcus and Streptococcus +1, no antibiotics initiated as wound bed appears healthy and without signs of infection. Baseline bloodwork ordered and pending. Vascular studies ordered and pending. Patient educated on the importance of diet on wound healing and instruc derek to increase protein and vitamin C intake. Glucmandeep was called to her pharmacy. A referral was made to nutrition services for her poorly controlled diabetes. Did defer this back to the PCP as well. Patient verbalized understanding. Patient will follow up at wound healing center in one week or sooner if needed. This note was generated with [employer] dictation software. It may contain incorrect words, spelling, and punctuation that were not noted in checking the note before signing. Code Visit 150xxx-152xx: [id number] Skin sub graft trnk/arm/leg
== END 2019-02-09 23:59 ==
LOC: WC 14:30
PROVIDERS: Family Provider Internal Medicine; PCP Internal Medicine; Referring Provider Nurse Practitioner Family; Visit Provider Nurse Practitioner Family
DX: E11.622 Type 2 diabetes mellitus with other skin ulcer (principal); R09.89 Other specified symptoms and signs involving the circulatory and respiratory systems; I25.10 Atherosclerotic heart disease of native coronary artery without angina pectoris; N18.3 Chronic kidney disease, stage 3 (moderate); L97.812 Non-pressure chronic ulcer of other part of right lower leg with fat layer exposed; E78.5 Hyperlipidemia, unspecified; I13.0 Hypertensive heart and chronic kidney disease with heart failure and stage 1 through stage 4 chronic kidney disease, or unspecified chronic kidney disease; I50.9 Heart failure, unspecified; M19.90 Unspecified osteoarthritis, unspecified site; E11.51 Type 2 diabetes mellitus with diabetic peripheral angiopathy without gangrene; G47.30 Sleep apnea, unspecified; E11.65 Type 2 diabetes mellitus with hyperglycemia; E66.01 Morbid (severe) obesity due to excess calories; Z71.3 Dietary counseling and surveillance; Z87.891 Personal history of nicotine dependence
CPT/HCPCS: 11042; 15271; 87070; 87075; 87077; 87186; 87205; 87640; 97607; 99204; 99213; Q4196; G0463

== ENCOUNTER 2019-03-11 16:15 | Outpatient (RCR) | payer MEDICARE, SELFPAY ==
[2019-02-10 01:44] VITALS: BP 151/90; PULSE 97; RESP 16; TEMP 36
--- NOTE | 2019-02-10 13:11 | VDLE_ITS ---
Reason For Study: Diminished DP Pulses/Nonhealing wound RIGHT LEFT CFV is compressible, spontaneous, phasic, CFV is compressible, spontaneous, phasic, competent and demonstrates normal competent, and demonstrates normal augmentation. augmentation. FV is compressible, spontaneous, phasic, FV is compressible, spontaneous, phasic, competent and demonstrates normal competent and demonstrates normal augmentation. augmentation. POP V is compressible, spontaneous, phasic, POP V is compressible, spontaneous, phasic, competent and demonstrates normal competent and demonstrates normal augmentation. augmentation. T/P Trunk is compressible. T/P Trunk is compressible. PTV is compressible. PTV is compressible. RT PerV is compressible. LT PerV is compressible. SFJ is competent. SFJ is competent. GSV is competent. GSV is competent. SSV is competent. ASV below knee is INCOMPETENT for greater Procedure than 0.5 seconds and measures 0.26 x 0.29 cm. Exam performed in department. SSV is competent. Interpretation Summary Deep veins of the lower extremities are bilaterally patent and compressible segmentally. There is no evidence of deep vein thrombosis on either side. Valvular competence appears intact within the proximal deep venous systems bilaterally. The greater saphenous veins appear bilaterally patent and compressible segmentally. Sapheno-femoral junctions are bilaterally competent . Valvular competence appears to be intact segmentally within the greater saphenous veins bilaterally. Small saphenous veins are patent and competent bilaterally. An incompetent accessory saphenous vein is identified below the left knee. Ordering Physician: Kuldeep Encarnacion Referring Physician: Emerita Gottlieb Performed By: Rhea Elias RVT
--- NOTE | 2019-02-10 13:12 | ART_ITS ---
Reason For Study: Diminished DP Pulses Procedure A bilateral lower extremity continuous wave Doppler with analog waveform analysis,segmental pressures,and ankle brachial indexes without exercise. Left Segmental Pressures Left brachial= 119mmHg. Left posterior tibial artery = 169mmHg. Left dorsalis pedis artery = 188mmHg. Left digit = 153 mmHg. The left dorsalis pedis waveforms are triphasic. The left posterior tibial artery waveforms are triphasic. Right Segmental Pressures Right brachial= 131mmHg. Right posterior tibial artery = 213mmHg. Right dorsalis pedis artery = 219mmHg. Right digit = 136 mmHg. The right dorsalis pedis waveforms are triphasic. The right posterior tibial artery waveforms are triphasic. Indices The right ankle brachial index by the dorsalis pedis is 1.67. The right ankle brachial index by the posterior tibial artery is 1.63. The right digital-brachial index is 1.04. The left ankle brachial index by the dorsalis pedis is 1.44. The left ankle brachial index by the posterior tibial artery is 1.29. The left digital-brachial index is 1.17. Interpretation Summary Triphasic Doppler waveforms are noted at ankle level bilaterally. Pulse-volume recording waveform amplitudes appear satisfactory at all levels bilaterally. Resting ankle-brachial indices are supra- normal bilaterally. Digital-brachial indices are bilaterally normal. These findings suggest the presence of arterial calcification bilaterally, though no evidence of significant arterial occlusive disease in the lower extremities. Ordering Physician: Kuldeep Encarnacion Referring Physician: Carlene Gottlieb Performed By: Rhea Elias RVT
[2019-02-11 14:33] VITALS: BP 130/77; PULSE 103; RESP 18; TEMP 35.3; BMI 35.8
--- NOTE | 2019-02-11 16:41 | PCM.WC.PN ---
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 Status: Chronic Code(s): L97.912 - Non-pressure chronic ulcer of unspecified part of right lower leg with fat layer exposed Comment: s/p traumatic hematoma (2) Decreased dorsalis pedis pulse Status: Acute Code(s): R09.89 - Other specified symptoms and signs involving the circulatory and respiratory systems (3) Morbid obesity Status: Chronic Code(s): E66.01 - Morbid (severe) obesity due to excess calories (4) Type II diabetes mellitus Status: Chronic Qualifiers: Code(s): E11.9 - Type 2 diabetes mellitus without complications Type of Wound Date of Service: 02/11/19 Chief Complaint: Nonhealing ulceration to right anterior lower extremity times 2 months History of Wound: This is a 73-year-old white female who presents to the wound healing center today with complaints of nonhealing ulcer to the right anterior lower extremity for 2 months. She has a past medical history significant for: Obesity, GERD, HTN, HLD, Chronic CHF Unclear Type, PAF, Anxiety and Depression, Seizure disorder, Diabetes mellitus type II uncontrolled, ERIC, CKD stage III. The patient states that initially the injury occurred roughly 2 months ago where she fell and came into contact with the side of her refrigerator and a hematoma occurred. She states that the hematoma persisted until a couple of weeks ago when she was seen by Dr. Jacques who unroofed the necrotic hematoma. She states that the ulceration has been open since then and draining a small amount of serosanguineous fluid. Her wound care has consisted of rinsing the wound with saline daily. She states that her diabetes is not well controlled and she does not routinely check her blood sugars. She denies any recent cultures being taken or being on any antibiotics. She denies any signs of systemic or localized infection at this time. The patient otherwise denies any fever, chills, nausea, vomiting, shortness of breath, chest pain or pressure, palpitations, orthopnea, lower extremity edema, syncope or presyncopal episodes. Progress of Wound: Post hematoma ulceration of her right lower extremity wound bed is moist and pink without any signs of infection at this time. Depth improving, pt tolerated SNAP vac and purraply well - Physical Exam Vital Signs Temp Pulse Resp BP 95.5 F L 103 H 18 130/77 H 02/11/19 14:33 02/11/19 14:33 02/11/19 14:33 02/11/19 14:33 General: Alert, Oriented x3, Cooperative, No apparent distress HEENT: Atraumatic Oral: Moist Mucosa Lungs: Clear to auscultation Cardiovascular: Regular rate Abdomen: Soft, Non Tender, Obese Extremities: No clubbing, No cyanosis, Edema - Generalized bilateral lower extremity edema Skin: Ulcer/ Wound - Ulceration to right anterior lower extremity with adherent soft bed, otherwise wound bed is moist and granular Musculoskeletal: No Tenderness to Palpation of Joints or Extremities, No Muscle Wasting Neurological: Neuro grossly intact Psych/Mental Status: Normal Affect, Appropriate, Alert and oriented to time, place, person, mood and affect Debridement Note Post-Debridement Measurements/Treatment WC - Nurse 2 - General Ulcer CM Notes Start: 02/11/19 14:32 Freq: Status: Active Protocol: Activity Type Activity Date Activity User E-Sign Co-Sign Detail Recorded Client Recorded Date Recorded By Document 02/11/19 15:35 AN [id number] 02/11/19 15:37 AN 02/11/19 15:35 Wound Center Nurse 2 #1 RLE med -Time 15:35 -Correct Patient Yes -Correct Side, Site, Position Yes -Correct Procedure Yes -Procedure Performed Yes -Type of Procedure Debridement -Clinical Debridement Subcutaneous -Post Debridement Size (cm) - Length 2.9 -Post Debridement Size (cm) - Width 2.1 -Post Debridement Size (cm) - Depth 0.5 -Total Square Cm 6.09 -Wound/Ulcer Outcome Not Healed -Ulcer Cleansing Rinsed/ Irrigated with Saline -Foul Odor after Cleansing No -Bioengineered Tissue Yes -Type of bioengineered Tissue [id number] -Expiration Date 10/14/20 -Product Lot Number [id number] -Bleeding Controlled with Pressure -Offloading No -Treatment Response Procedure Tolerated Well Pain Scale: 0-10 Numeric Is Patient Pain Free? Yes Wound debrided: Ulceration to right anterior lower extremity status post hematoma Laterality: Right Type of Debridement: Excisional debridement Anesthesia Used: 5% Lidocaine Gel Depth: in the subcutaneous layer Percentage of wound debrided: 100 Instrument Used: 5mm curette Tissue Removed: Slough and devitalized tissue Severity: Fat Layer Exposed Amount of bleeding with debridement: Mild Bleeding Controlled with: Pressure Patient tolerated procedure well Assessment/Plan Assessment: Nonhealing ulcer status post traumatic hematoma to right anterior lower extremity, suspect venous component. Plan: The patient was seen and examined at the wound center today and was updated on the plan of care. A subcutaneous debridement was performed today. The patient tolerated the procedure well. The patients wound care will consist of: Pure apply #2 was applied after subcutaneous debridement, the snap VAC was then applied afterwards and secured, 100% of the product was used with 0% waste. Patient tolerated the procedure well. Tubigrip for compression. Wound cultures were collected prior and demonstrated Staphylococcus and Streptococcus +1, no antibiotics initiated as wound bed appears healthy and without signs of infection. Baseline bloodwork ordered and pending. Vascular studies ordered and pending. Patient educated on the importance of diet on wound healing and instructed to increase protein and vitamin C intake. Glucmandeep was called to her pharmacy. A referral was made to nutrition services for her poorly controlled diabetes. Did defer this back to the PCP as well. Patient verbalized understanding. Patient will follow up at wound healing center in one week or sooner if needed. This note was generated with [employer] dictation software. It may contain incorrect words, spelling, and punctuation that were not noted in checking the note before signing. Code Visit 150xxx-152xx: 12906 Skin sub graft trnk/arm/leg
[2019-02-18 15:28] VITALS: BP 142/76; PULSE 117; RESP 18; TEMP 36.1; BMI 35.8
--- NOTE | 2019-02-18 17:49 | PCM.WC.PN ---
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 Status: Chronic Code(s): L97.912 - Non-pressure chronic ulcer of unspecified part of right lower leg with fat layer exposed Comment: s/p traumatic hematoma (2) Decreased dorsalis pedis pulse Status: Acute Code(s): R09.89 - Other specified symptoms and signs involving the circulatory and respiratory systems (3) Morbid obesity Status: Chronic Code(s): E66.01 - Morbid (severe) obesity due to excess calories (4) Type II diabetes mellitus Status: Chronic Qualifiers: Code(s): E11.9 - Type 2 diabetes mellitus without complications Type of Wound Date of Service: 02/18/19 Chief Complaint: Nonhealing ulceration to right anterior lower extremity times 2 months History of Wound: This is a 73-year-old white female who presents to the wound healing center today with complaints of nonhealing ulcer to the right anterior lower extremity for 2 months. She has a past medical history significant for: Obesity, GERD, HTN, HLD, Chronic CHF Unclear Type, PAF, Anxiety and Depression, Seizure disorder, Diabetes mellitus type II uncontrolled, ERIC, CKD stage III. The patient states that initially the injury occurred roughly 2 months ago where she fell and came into contact with the side of her refrigerator and a hematoma occurred. She states that the hematoma persisted until a couple of weeks ago when she was seen by Dr. Jacques who unroofed the necrotic hematoma. She states that the ulceration has been open since then and draining a small amount of serosanguineous fluid. Her wound care has consisted of rinsing the wound with saline daily. She states that her diabetes is not well controlled and she does not routinely check her blood sugars. She denies any recent cultures being taken or being on any antibiotics. She denies any signs of systemic or localized infection at this time. The patient otherwise denies any fever, chills, nausea, vomiting, shortness of breath, chest pain or pressure, palpitations, orthopnea, lower extremity edema, syncope or presyncopal episodes. Progress of Wound: Post hematoma ulceration of her right lower extremity wound bed is moist and pink without any signs of infection at this time. Depth improving, pt tolerated SNAP vac and purraply well - Physical Exam Vital Signs Temp Pulse Resp BP 97 F L 117 H 18 142/76 H 02/18/19 15:28 02/18/19 15:28 02/18/19 15:28 02/18/19 15:28 General: Alert, Oriented x3, Cooperative, No apparent distress HEENT: Atraumatic Oral: Moist Mucosa Lungs: Clear to auscultation Cardiovascular: Regular rate Abdomen: Soft, Obese Extremities: Edema - generalized BLLE edema, Peripheral Pulses Normal Skin: Ulcer/ Wound - nonhealing ulcer to right anterior lower extremity with adherent slough to wound bed, no signs of obvious infections at this time. Neurological: Neuro grossly intact Psych/Mental Status: Normal Affect, Appropriate, Alert and oriented to time, place, person, mood and affect Debridement Note Post-Debridement Measurements/Treatment WC - Nurse 2 - General Ulcer CM Notes Start: 02/11/19 14:32 Freq: Status: Active Protocol: Activity Type Activity Date Activity User E-Sign Co-Sign Detail Recorded Client Recorded Date Recorded By Document 02/11/19 15:35 AN [id number] 02/11/19 15:37 AN Document 02/18/19 15:41 AN [id number] 02/18/19 15:49 AN 02/11/19 02/18/19 15:35 15:41 Wound Center Nurse 2 #1 RLE med -Time 15:35 15:42 -Correct Patient Yes Yes -Correct Side, Site, Position Yes Yes -Correct Procedure Yes Yes -Procedure Performed Yes Yes -Type of Procedure Debridement Debridement -Clinical Debridement Subcutaneous Subcutaneous -Post Debridement Size (cm) - Length 2.9 2.5 -Post Debridement Size (cm) - Width 2.1 1.9 -Post Debridement Size (cm) - Depth 0.5 0.5 -Total Square Cm 6.09 4.75 -Wound/Ulcer Outcome Not Healed Not Healed -Ulcer Cleansing Rinsed/ Rinsed/ Irrigated with Irrigated with Saline Saline -Foul Odor after Cleansing No No -Bioengineered Tissue Yes Yes -Type of bioengineered Tissue [id number] -Expiration Date 10/14/20 06/25/21 -Product Lot Number [id number] -Percent Used 100 -Saline Lot Number [id number] -Topical Lidocaine (%) 4 -Bleeding Controlled with Pressure Pressure -Offloading No No -Treatment Response Procedure Procedure Tolerated Well Tolerated Well Pain Scale: 0-10 Numeric Is Patient Pain Free? Yes Yes Wound debrided: Right anterior lower extremity ulceration status post hematoma Type of Debridement: Excisional debridement Anesthesia Used: 5% Lidocaine Gel Depth: in the subcutaneous layer Percentage of wound debrided: 100 Instrument Used: 5mm curette Tissue Removed: Slough and devitalized tissue Severity: Fat Layer Exposed Amount of bleeding with debridement: Mild Bleeding Controlled with: Pressure Patient tolerated procedure well Assessment/Plan Assessment: Nonhealing ulcer status post traumatic hematoma to right anterior lower extremity, suspect venous component. Plan: The patient was seen and examined at the wound center today and was updated on the plan of care. A subcutaneous debridement was performed today. The patient tolerated the procedure well. The patients wound care will consist of: Pure apply #3 was applied after subcutaneous debridement, the snap VAC was then applied afterwards and secured, 100% of the product was used with 0% waste. Patient tolerated the procedure well. Tubigrip for compression. Wound cultures were collected prior and demonstrated Staphylococcus and Streptococcus +1, no antibiotics initiated as wound bed appears healthy and without signs of infection. Baseline bloodwork ordered and pending. Vascular studies ordered and show venous insufficiency and supranormal arterial suggesting calcification. Patient educated on the importance of diet on wound healing and instructed to increase protein and vitamin C intake. Glucerharriet was called to her pharmacy. A referral was made to nutrition services for her poorly controlled diabetes. Did defer this back to the PCP as well. Patient verbalized understanding. Patient will follow up at wound healing center in one week or sooner if needed. This note was generated with [employer] dictation software. It may contain incorrect words, spelling, and punctuation that were not noted in checking the note before signing. Code Visit 150xxx-152xx: 56476 Skin sub graft trnk/arm/leg
--- NOTE | 2019-02-23 17:03 | PN.PCM_ITS ---
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 Status: Chronic Code(s): L97.912 - Non-pressure chronic ulcer of unspecified part of right lower leg with fat layer exposed Comment: s/p traumatic hematoma (2) Decreased dorsalis pedis pulse Status: Acute Code(s): R09.89 - Other specified symptoms and signs involving the circulatory and respiratory systems (3) Morbid obesity Status: Chronic Code(s): E66.01 - Morbid (severe) obesity due to excess calories (4) Type II diabetes mellitus Status: Chronic Qualifiers: Code(s): E11.9 - Type 2 diabetes mellitus without complications Type of Wound Date of Service: 02/18/19 Chief Complaint: Nonhealing ulceration to right anterior lower extremity times 2 months History of Wound: This is a 73-year-old white female who presents to the wound healing center today with complaints of nonhealing ulcer to the right anterior lower extremity for 2 months. She has a past medical history significant for: Obesity, GERD, HTN, HLD, Chronic CHF Unclear Type, PAF, Anxiety and Depression, Seizure disorder, Diabetes mellitus type II uncontrolled, ERIC, CKD stage III. The patient states that initially the injury occurred roughly 2 months ago where she fell and came into contact with the side of her refrigerator and a hematoma occurred. She states that the hematoma persisted until a couple of weeks ago when she was seen by Dr. Jacuqes who unroofed the necrotic hematoma. She states that the ulceration has been open since then and draining a small amount of serosanguineous fluid. Her wound care has consisted of rinsing the wound with saline daily. She states that her diabetes is not well controlled and she does not routinely check her blood sugars. She denies any recent cultures being taken or being on any antibiotics. She denies any signs of systemic or localized infection at this time. The patient otherwise denies any fever, chills, nausea, vomiting, shortness of breath, chest pain or pressure, palpitations, orthopnea, lower extremity edema, syncope or presyncopal episodes. Progress of Wound: Post hematoma ulceration of her right lower extremity wound bed is moist and pink without any signs of infection at this time. Depth improving, pt tolerated SNAP vac and purraply well - Physical Exam Vital Signs Temp Pulse Resp BP 97 F L 117 H 18 142/76 H 02/18/19 15:28 02/18/19 15:28 02/18/19 15:28 02/18/19 15:28 General: Alert, Oriented x3, Cooperative, No apparent distress HEENT: Atraumatic Oral: Moist Mucosa Lungs: Clear to auscultation Cardiovascular: Regular rate Abdomen: Soft, Obese Extremities: Edema - generalized BLLE edema, Peripheral Pulses Normal Skin: Ulcer/ Wound - nonhealing ulcer to right anterior lower extremity with adherent slough to wound bed, no signs of obvious infections at this time. Neurological: Neuro grossly intact Psych/Mental Status: Normal Affect, Appropriate, Alert and oriented to time, place, person, mood and affect Debridement Note Post-Debridement Measurements/Treatment WC - Nurse 2 - General Ulcer CM Notes Start: 02/11/19 14:32 Freq: Status: Active Protocol: Activity Type Activity Date Activity User E-Sign Co-Sign Detail Recorded Client Recorded Date Recorded By Document 02/11/19 15:35 AN [id number] 02/11/19 15:37 AN Document 02/18/19 15:41 AN [id number] 02/18/19 15:49 AN 02/11/19 02/18/19 15:35 15:41 Wound Center Nurse 2 #1 RLE med -Time 15:35 15:42 -Correct Patient Yes Yes -Correct Side, Site, Position Yes Yes -Correct Procedure Yes Yes -Procedure Performed Yes Yes -Type of Procedure Debridement Debridement -Clinical Debridement Subcutaneous Subcutaneous -Post Debridement Size (cm) - Length 2.9 2.5 -Post Debridement Size (cm) - Width 2.1 1.9 -Post Debridement Size (cm) - Depth 0.5 0.5 -Total Square Cm 6.09 4.75 -Wound/Ulcer Outcome Not Healed Not Healed -Ulcer Cleansing Rinsed/ Rinsed/ Irrigated with Irrigated with Saline Saline -Foul Odor after Cleansing No No -Bioengineered Tissue Yes Yes -Type of bioengineered Tissue [id number] -Expiration Date 10/14/20 06/25/21 -Product Lot Number [id number] -Percent Used 100 -Saline Lot Number [id number] -Topical Lidocaine (%) 4 -Bleeding Controlled with Pressure Pressure -Offloading No No -Treatment Response Procedure Procedure Tolerated Well Tolerated Well Pain Scale: 0-10 Numeric Is Patient Pain Free? Yes Yes Wound debrided: Right anterior lower extremity ulceration status post hematoma Type of Debridement: Excisional debridement Anesthesia Used: 5% Lidocaine Gel Depth: in the subcutaneous layer Percentage of wound debrided: 100 Instrument Used: 5mm curette Tissue Removed: Slough and devitalized tissue Severity: Fat Layer Exposed Amount of bleeding with debridement: Mild Bleeding Controlled with: Pressure Patient tolerated procedure well Assessment/Plan Assessment: Nonhealing ulcer status post traumatic hematoma to right anterior lower extremity, suspect venous component. Plan: The patient was seen and examined at the wound center today and was updated on the plan of care. A subcutaneous debridement was performed today. The patient tolerated the procedure well. The patients wound care will consist of: Pure apply #3 was applied after subcutaneous debridement, the snap VAC was then applied afterwards and secured, 100% of the product was used with 0% waste. Patient tolerated the procedure well. Tubigrip for compression. Wound cultures were collected prior and demonstrated Staphylococcus and Streptococcus +1, no antibiotics initiated as wound bed appears healthy and without signs of infection. Baseline bloodwork ordered and pending. Vascular studies ordered and show venous insufficiency and supranormal arterial suggesting calcification. Patient educated on the importance of diet on wound healing and instructed to increase protein and vitamin C intake. Glucerharriet was called to her pharmacy. A referral was made to nutrition services for her poorly controlled diabetes. Did defer this back to the PCP as well. Patient verbalized understanding. Patient will follow up at wound healing center in one week or sooner if needed. This note was generated with [employer] dictation software. It may contain incorrect words, spelling, and punctuation that were not noted in checking the note before signing. Code Visit 150xxx-152xx: [id number] Skin sub graft trnk/arm/leg
[2019-02-25 14:52] VITALS: BP 145/69; PULSE 98; RESP 20; TEMP 36.8; BMI 35.8
--- NOTE | 2019-02-25 16:52 | PCM.WC.PN ---
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 Status: Chronic Current Visit: Yes Code(s): L97.912 - Non-pressure chronic ulcer of unspecified part of right lower leg with fat layer exposed Comment: s/p traumatic hematoma (2) Decreased dorsalis pedis pulse Status: Acute Current Visit: No Code(s): R09.89 - Other specified symptoms and signs involving the circulatory and respiratory systems (3) Morbid obesity Status: Chronic Current Visit: No Code(s): E66.01 - Morbid (severe) obesity due to excess calories (4) Type II diabetes mellitus Status: Chronic Current Visit: No Qualifiers: Code(s): E11.9 - Type 2 diabetes mellitus without complications Type of Wound Date of Service: 02/25/19 Chief Complaint: Nonhealing ulceration to right anterior lower extremity times 2 months History of Wound: This is a 73-year-old white female who presents to the wound healing center today with complaints of nonhealing ulcer to the right anterior lower extremity for 2 months. She has a past medical history significant for: Obesity, GERD, HTN, HLD, Chronic CHF Unclear Type, PAF, Anxiety and Depression, Seizure disorder, Diabetes mellitus type II uncontrolled, ERIC, CKD stage III. The patient states that initially the injury occurred roughly 2 months ago where she fell and came into contact with the side of her refrigerator and a hematoma occurred. She states that the hematoma persisted until a couple of weeks ago when she was seen by Dr. Jacques who unroofed the necrotic hematoma. She states that the ulceration has been open since then and draining a small amount of serosanguineous fluid. Her wound care has consisted of rinsing the wound with saline daily. She states that her diabetes is not well controlled and she does not routinely check her blood sugars. She denies any recent cultures being taken or being on any antibiotics. She denies any signs of systemic or localized infection at this time. The patient otherwise denies any fever, chills, nausea, vomiting, shortness of breath, chest pain or pressure, palpitations, orthopnea, lower extremity edema, syncope or presyncopal episodes. Progress of Wound: Post hematoma ulceration of her right lower extremity wound bed is moist and pink without any signs of infection at this time. Depth improving, pt tolerated SNAP vac and purraply well, however did have a slight dermatitis reaction to the wound VAC drape - Physical Exam Vital Signs Temp Pulse Resp BP 98.2 F 98 20 H 145/69 H 02/25/19 14:52 02/25/19 14:52 02/25/19 14:52 02/25/19 14:52 General: Alert, Oriented x3, Cooperative, No apparent distress HEENT: PERRLA, EOMI Neck: Supple, No JVD, Negative Carotid Bruits Lungs: Clear to auscultation Cardiovascular: Regular rate, Regular Rhythm Abdomen: Soft, Non Tender Extremities: Capillary Refill Less than 3 Seconds, Edema - Generalized bilateral lower extremity edema, Peripheral Pulses Normal Skin: Ulcer/ Wound - Ulceration to right anterior lower extremity with adherent slough to wound bed, dermatitis to the surrounding area present secondary to the wound VAC drape, no signs of cellulitis or infection at this time Wound Measurements and Assessment WC - Nurse 1 - General Ulcer Measurement Start: 02/11/19 14:32 Freq: Status: Active Protocol: Activity Type Activity Date Activity User E-Sign Co-Sign Detail Recorded Client Recorded Date Recorded By Document 02/25/19 14:52 DL [id number] 02/25/19 15:01 DL 02/25/19 14:52 Wound Center Nurse 1 [Ulcer Assessment] #1 RLE med -Current Size (cm) - Length 1.7 -Current Size (cm) - Width 1.8 -Current Size (cm) - Depth 0.3 -Total Square Cm 3.06 -Photo Taken No -Exudate Amt Small -Exudate Type Serosanguineous -Wound Margin Distinct, Outline Attached -Granulation Amt Large (67-100%) -Granulation Quality Red -Necrosis Amt Small (1-33%) -Necrotic Tissue Type Adherent Slough -Structure Exposed N/A -Texture (Zamzam-wound Skin Appearance) Excoriation Scarring -Color (Zamzam-wound Skin Appearance) No Abnormality Hemosiderin Staining -Temperature (Zamzam-wound Skin No Abnormality Appearance) (Pt Warm) -Tenderness on Palpation (Zamzam-wound No Skin Appearance) -Ulcer Cleansing Wound Cleanser -Foul Odor after Cleansing No -Anesthetic Used 5% Lidocaine Gel WC - Nurse 2 - General Ulcer CM Notes Start: 02/11/19 14:32 Freq: Status: Active Protocol: Activity Type Activity Date Activity User E-Sign Co-Sign Detail Recorded Client Recorded Date Recorded By Document 02/25/19 15:11 AN [id number] 02/25/19 15:19 AN 02/25/19 15:11 Wound Center Nurse 2 [Procedure/Treatment] -Time 15:13 -Correct Patient Yes -Correct Side, Site, Position Yes -Correct Procedure Yes -Procedure Performed Yes -Type of Procedure Debridement -Clinical Debridement Subcutaneous -Post Debridement Size (cm) - Length 2.3 -Post Debridement Size (cm) - Width 1.6 -Post Debridement Size (cm) - Depth 0.3 -Total Square Cm 3.68 -Wound/Ulcer Outcome Not Healed -Ulcer Cleansing Rinsed/ Irrigated with Saline -Foul Odor after Cleansing No -Bioengineered Tissue Yes -Type of bioengineered Tissue NU-SHIELD -Expiration Date 02/25/19 -Product Lot Number [id number] -Percent Used 100 -Saline Lot Number [id number] -Topical Lidocaine (%) 4 -Bleeding Controlled with Pressure -Offloading No -Treatment Response Procedure Tolerated Well [See Physician Procedure note for Specifics] Neurological: Neuro grossly intact Psych/Mental Status: Normal Affect, Appropriate, Alert and oriented to time, place, person, mood and affect Debridement Note Post-Debridement Measurements/Treatment WC - Nurse 2 - General Ulcer CM Notes Start: 02/11/19 14:32 Freq: Status: Active Protocol: Activity Type Activity Date Activity User E-Sign Co-Sign Detail Recorded Client Recorded Date Recorded By Document 02/11/19 15:35 AN [id number] 02/11/19 15:37 AN Document 02/18/19 15:41 AN [id number] 02/18/19 15:49 AN Document 02/25/19 15:11 AN [id number] 02/25/19 15:19 AN 02/11/19 02/18/19 02/25/19 15:35 15:41 15:11 Wound Center Nurse 2 #1 RLE med -Time 15:35 15:42 15:13 -Correct Patient Yes Yes Yes -Correct Side, Site, Position Yes Yes Yes -Correct Procedure Yes Yes Yes -Procedure Performed Yes Yes Yes -Type of Procedure Debridement Debridement Debridement -Clinical Debridement Subcutaneous Subcutaneous Subcutaneous -Post Debridement Size (cm) - Length 2.9 2.5 2.3 -Post Debridement Size (cm) - Width 2.1 1.9 1.6 -Post Debridement Size (cm) - Depth 0.5 0.5 0.3 -Total Square Cm 6.09 4.75 3.68 -Wound/Ulcer Outcome Not Healed Not Healed Not Healed -Ulcer Cleansing Rinsed/ Rinsed/ Rinsed/ Irrigated with Irrigated with Irrigated with Saline Saline Saline -Foul Odor after Cleansing No No No -Bioengineered Tissue Yes Yes Yes -Type of bioengineered Tissue [id number] NU-SHIELD -Expiration Date 10/14/20 06/25/21 02/25/19 -Product Lot Number [id number]-1440 -Percent Used 100 100 -Saline Lot Number [id number] -Topical Lidocaine (%) 4 4 -Bleeding Controlled with Pressure Pressure Pressure -Offloading No No No -Treatment Response Procedure Procedure Procedure Tolerated Well Tolerated Well Tolerated Well Pain Scale: 0-10 Numeric Is Patient Pain Free? Yes Yes Wound debrided: Right anterior lower extremity ulcer Laterality: Right Type of Debridement: Excisional debridement Anesthesia Used: 5% Lidocaine Gel Depth: in the subcutaneous layer Percentage of wound debrided: 100 Instrument Used: 5mm curette Tissue Removed: Slough and devitalized tissue Severity: Fat Layer Exposed Amount of bleeding with debridement: Mild Bleeding Controlled with: Pressure Patient tolerated procedure well Assessment/Plan Active Problems 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 (Chronic) s/p traumatic hematoma Assessment: Nonhealing ulcer status post traumatic hematoma to right anterior lower extremity, suspect venous component. Plan: The patient was seen and examined at the wound center today and was updated on the plan of care. A subcutaneous debridement was performed today. The patient tolerated the procedure well. The patients wound care will consist of: Nushield #1 was applied after subcutaneous debridement, the snap VAC will be on hold at this time, 100% of the product was used with 0% waste. Patient tolerated the procedure well. Light 3m wrap for compression. Wound cultures were collected prior and demonstrated Staphylococcus and Streptococcus +1, no antibiotics initiated as wound bed appears healthy and without signs of infection. Baseline bloodwork ordered and pending. Vascular studies ordered and show venous insufficiency and supranormal arterial suggesting calcification. Patient educated on the importance of diet on wound healing and instructed to increase protein and vitamin C intake. Trish was called to her pharmacy. A referral was made to nutrition services for her poorly controlled diabetes. Did defer this back to the PCP as well. Patient verbalized understanding. Patient will follow up at wound healing center in one week or sooner if needed. This note was generated with [employer] dictation software. It may contain incorrect words, spelling, and punctuation that were not noted in checking the note before signing. Code Visit 150xxx-152xx: 96260 Skin sub graft trnk/arm/leg
--- NOTE | 2019-02-26 15:56 | PN.PCM_ITS ---
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 Status: Chronic Current Visit: Yes Code(s): L97.912 - Non-pressure chronic ulcer of unspecified part of right lower leg with fat layer exposed Comment: s/p traumatic hematoma (2) Decreased dorsalis pedis pulse Status: Acute Current Visit: No Code(s): R09.89 - Other specified symptoms and signs involving the circulatory and respiratory systems (3) Morbid obesity Status: Chronic Current Visit: No Code(s): E66.01 - Morbid (severe) obesity due to excess calories (4) Type II diabetes mellitus Status: Chronic Current Visit: No Qualifiers: Code(s): E11.9 - Type 2 diabetes mellitus without complications Type of Wound Date of Service: 02/25/19 Chief Complaint: Nonhealing ulceration to right anterior lower extremity times 2 months History of Wound: This is a 73-year-old white female who presents to the wound healing center today with complaints of nonhealing ulcer to the right anterior lower extremity for 2 months. She has a past medical history significant for: Obesity, GERD, HTN, HLD, Chronic CHF Unclear Type, PAF, Anxiety and Depression, Seizure disorder, Diabetes mellitus type II uncontrolled, ERIC, CKD stage III. The patient states that initially the injury occurred roughly 2 months ago where she fell and came into contact with the side of her refrigerator and a hematoma occurred. She states that the hematoma persisted until a couple of weeks ago when she was seen by Dr. Jacques who unroofed the necrotic hematoma. She states that the ulceration has been open since then and draining a small amount of serosanguineous fluid. Her wound care has consisted of rinsing the wound with saline daily. She states that her diabetes is not well controlled and she does not routinely check her blood sugars. She denies any recent cultures being taken or being on any antibiotics. She denies any signs of systemic or localized infection at this time. The patient otherwise denies any fever, chills, nausea, vomiting, shortness of breath, chest pain or pressure, palpitations, orthopnea, lower extremity edema, syncope or presyncopal episodes. Progress of Wound: Post hematoma ulceration of her right lower extremity wound bed is moist and pink without any signs of infection at this time. Depth improving, pt tolerated SNAP vac and purraply well, however did have a slight dermatitis reaction to the wound VAC drape - Physical Exam Vital Signs Temp Pulse Resp BP 98.2 F 98 20 H 145/69 H 02/25/19 14:52 02/25/19 14:52 02/25/19 14:52 02/25/19 14:52 General: Alert, Oriented x3, Cooperative, No apparent distress HEENT: PERRLA, EOMI Neck: Supple, No JVD, Negative Carotid Bruits Lungs: Clear to auscultation Cardiovascular: Regular rate, Regular Rhythm Abdomen: Soft, Non Tender Extremities: Capillary Refill Less than 3 Seconds, Edema - Generalized bilateral lower extremity edema, Peripheral Pulses Normal Skin: Ulcer/ Wound - Ulceration to right anterior lower extremity with adherent slough to wound bed, dermatitis to the surrounding area present secondary to the wound VAC drape, no signs of cellulitis or infection at this time Wound Measurements and Assessment WC - Nurse 1 - General Ulcer Measurement Start: 02/11/19 14:32 Freq: Status: Active Protocol: Activity Type Activity Date Activity User E-Sign Co-Sign Detail Recorded Client Recorded Date Recorded By Document 02/25/19 14:52 DL [id number] 02/25/19 15:01 DL 02/25/19 14:52 Wound Center Nurse 1 [Ulcer Assessment] #1 RLE med -Current Size (cm) - Length 1.7 -Current Size (cm) - Width 1.8 -Current Size (cm) - Depth 0.3 -Total Square Cm 3.06 -Photo Taken No -Exudate Amt Small -Exudate Type Serosanguineous -Wound Margin Distinct, Outline Attached -Granulation Amt Large (67-100%) -Granulation Quality Red -Necrosis Amt Small (1-33%) -Necrotic Tissue Type Adherent Slough -Structure Exposed N/A -Texture (Zamazm-wound Skin Appearance) Excoriation Scarring -Color (Zamzam-wound Skin Appearance) No Abnormality Hemosiderin Staining -Temperature (Zamzam-wound Skin No Abnormality Appearance) (Pt Warm) -Tenderness on Palpation (Zamzam-wound No Skin Appearance) -Ulcer Cleansing Wound Cleanser -Foul Odor after Cleansing No -Anesthetic Used 5% Lidocaine Gel WC - Nurse 2 - General Ulcer CM Notes Start: 02/11/19 14:32 Freq: Status: Active Protocol: Activity Type Activity Date Activity User E-Sign Co-Sign Detail Recorded Client Recorded Date Recorded By Document 02/25/19 15:11 AN [id number] 02/25/19 15:19 AN 02/25/19 15:11 Wound Center Nurse 2 [Procedure/Treatment] -Time 15:13 -Correct Patient Yes -Correct Side, Site, Position Yes -Correct Procedure Yes -Procedure Performed Yes -Type of Procedure Debridement -Clinical Debridement Subcutaneous -Post Debridement Size (cm) - Length 2.3 -Post Debridement Size (cm) - Width 1.6 -Post Debridement Size (cm) - Depth 0.3 -Total Square Cm 3.68 -Wound/Ulcer Outcome Not Healed -Ulcer Cleansing Rinsed/ Irrigated with Saline -Foul Odor after Cleansing No -Bioengineered Tissue Yes -Type of bioengineered Tissue NU-SHIELD -Expiration Date 02/25/19 -Product Lot Number [id number] -Percent Used 100 -Saline Lot Number [id number] -Topical Lidocaine (%) 4 -Bleeding Controlled with Pressure -Offloading No -Treatment Response Procedure Tolerated Well [See Physician Procedure note for Specifics] Neurological: Neuro grossly intact Psych/Mental Status: Normal Affect, Appropriate, Alert and oriented to time, place, person, mood and affect Debridement Note Post-Debridement Measurements/Treatment WC - Nurse 2 - General Ulcer CM Notes Start: 02/11/19 14:32 Freq: Status: Active Protocol: Activity Type Activity Date Activity User E-Sign Co-Sign Detail Recorded Client Recorded Date Recorded By Document 02/11/19 15:35 AN [id number] 02/11/19 15:37 AN Document 02/18/19 15:41 AN [id number] 02/18/19 15:49 AN Document 02/25/19 15:11 AN [id number] 02/25/19 15:19 AN 02/11/19 02/18/19 02/25/19 15:35 15:41 15:11 Wound Center Nurse 2 #1 RLE med -Time 15:35 15:42 15:13 -Correct Patient Yes Yes Yes -Correct Side, Site, Position Yes Yes Yes -Correct Procedure Yes Yes Yes -Procedure Performed Yes Yes Yes -Type of Procedure Debridement Debridement Debridement -Clinical Debridement Subcutaneous Subcutaneous Subcutaneous -Post Debridement Size (cm) - Length 2.9 2.5 2.3 -Post Debridement Size (cm) - Width 2.1 1.9 1.6 -Post Debridement Size (cm) - Depth 0.5 0.5 0.3 -Total Square Cm 6.09 4.75 3.68 -Wound/Ulcer Outcome Not Healed Not Healed Not Healed -Ulcer Cleansing Rinsed/ Rinsed/ Rinsed/ Irrigated with Irrigated with Irrigated with Saline Saline Saline -Foul Odor after Cleansing No No No -Bioengineered Tissue Yes Yes Yes -Type of bioengineered Tissue [id number] NU-SHIELD -Expiration Date 10/14/20 06/25/21 02/25/19 -Product Lot Number [id number] no-1440 -Percent Used 100 100 -Saline Lot Number [id number] -Topical Lidocaine (%) 4 4 -Bleeding Controlled with Pressure Pressure Pressure -Offloading No No No -Treatment Response Procedure Procedure Procedure Tolerated Well Tolerated Well Tolerated Well Pain Scale: 0-10 Numeric Is Patient Pain Free? Yes Yes Wound debrided: Right anterior lower extremity ulcer Laterality: Right Type of Debridement: Excisional debridement Anesthesia Used: 5% Lidocaine Gel Depth: in the subcutaneous layer Percentage of wound debrided: 100 Instrument Used: 5mm curette Tissue Removed: Slough and devitalized tissue Severity: Fat Layer Exposed Amount of bleeding with debridement: Mild Bleeding Controlled with: Pressure Patient tolerated procedure well Assessment/Plan Active Problems 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 (Chronic) s/p traumatic hematoma Assessment: Nonhealing ulcer status post traumatic hematoma to right anterior lower extremity, suspect venous component. Plan: The patient was seen and examined at the wound center today and was updated on the plan of care. A subcutaneous debridement was performed today. The patient tolerated the procedure well. The patients wound care will consist of: Nushield #1 was applied after subcutaneous debridement, the snap VAC will be on hold at this time, 100% of the product was used with 0% waste. Patient tolerated the procedure well. Light 3m wrap for compression. Wound cultures were collected prior and demonstrated Staphylococcus and Streptococcus +1, no antibiotics initiated as wound bed appears healthy and without signs of infection. Baseline bloodwork ordered and pending. Vascular studies ordered and show venous insufficiency and supranormal arterial suggesting calcification. Patient educated on the importance of diet on wound healing and instructed to increase protein and vitamin C intake. Trish was called to her pharmacy. A referral was made to nutrition services for her poorly controlled diabetes. Did defer this back to the PCP as well. Patient verbalized understanding. Patient will follow up at wound healing center in one week or sooner if needed. This note was generated with [employer] dictation software. It may contain incorrect words, spelling, and punctuation that were not noted in checking the note before signing. Code Visit 150xxx-152xx: 82114 Skin sub graft trnk/arm/leg
[2019-03-04 16:23] VITALS: BP 131/76; PULSE 92; RESP 18; TEMP 35.7; BMI 35.8
--- NOTE | 2019-03-04 20:06 | PCM.WC.PN ---
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 Status: Chronic Code(s): L97.912 - Non-pressure chronic ulcer of unspecified part of right lower leg with fat layer exposed Comment: s/p traumatic hematoma (2) Decreased dorsalis pedis pulse Status: Acute Code(s): R09.89 - Other specified symptoms and signs involving the circulatory and respiratory systems (3) Morbid obesity Status: Chronic Code(s): E66.01 - Morbid (severe) obesity due to excess calories (4) Type II diabetes mellitus Status: Chronic Qualifiers: Code(s): E11.9 - Type 2 diabetes mellitus without complications Type of Wound Date of Service: 03/04/19 Chief Complaint: Nonhealing ulceration to right anterior lower extremity times 2 months History of Wound: This is a 73-year-old white female who presents to the wound healing center today with complaints of nonhealing ulcer to the right anterior lower extremity for 2 months. She has a past medical history significant for: Obesity, GERD, HTN, HLD, Chronic CHF Unclear Type, PAF, Anxiety and Depression, Seizure disorder, Diabetes mellitus type II uncontrolled, ERCI, CKD stage III. The patient states that initially the injury occurred roughly 2 months ago where she fell and came into contact with the side of her refrigerator and a hematoma occurred. She states that the hematoma persisted until a couple of weeks ago when she was seen by Dr. Jacques who unroofed the necrotic hematoma. She states that the ulceration has been open since then and draining a small amount of serosanguineous fluid. Her wound care has consisted of rinsing the wound with saline daily. She states that her diabetes is not well controlled and she does not routinely check her blood sugars. She denies any recent cultures being taken or being on any antibiotics. She denies any signs of systemic or localized infection at this time. The patient otherwise denies any fever, chills, nausea, vomiting, shortness of breath, chest pain or pressure, palpitations, orthopnea, lower extremity edema, syncope or presyncopal episodes. Progress of Wound: Post hematoma ulceration of her right lower extremity wound bed is moist and pink without any signs of infection at this time. Depth improving, pt tolerated nushield and 3 m wrap well. The patient otherwise denies any fever, chills, nausea, vomiting, shortness of breath, chest pain or pressure, palpitations, orthopnea, lower extremity edema, syncope or presyncopal episodes. - Physical Exam Vital Signs Temp Pulse Resp BP 96.2 F L 92 18 131/76 H 03/04/19 16:23 03/04/19 16:23 03/04/19 16:23 03/04/19 16:23 General: Alert, Oriented x3, Cooperative, No apparent distress HEENT: PERRLA, EOMI Neck: Supple, No JVD Lungs: Clear to auscultation Cardiovascular: Regular rate, Regular Rhythm Abdomen: Soft, Non Tender, Obese Extremities: No edema, Capillary Refill Less than 3 Seconds Skin: Ulcer/ Wound - Ulceration to right anterior lower extremity with adherent slough, no signs of infection at this time. Musculoskeletal: No Tenderness to Palpation of Joints or Extremities, No Muscle Wasting Neurological: Neuro grossly intact Psych/Mental Status: Normal Affect, Appropriate, Alert and oriented to time, place, person, mood and affect Debridement Note Post-Debridement Measurements/Treatment WC - Nurse 2 - General Ulcer CM Notes Start: 02/11/19 14:32 Freq: Status: Active Protocol: Activity Type Activity Date Activity User E-Sign Co-Sign Detail Recorded Client Recorded Date Recorded By Document 02/11/19 15:35 AN [id number] 02/11/19 15:37 AN Document 02/18/19 15:41 AN [email or web address] 02/18/19 15:49 AN Document 02/25/19 15:11 AN [id number] 02/25/19 15:19 AN Document 03/04/19 16:47 AN [id number] 03/04/19 16:53 AN 02/11/19 02/18/19 02/25/19 15:35 15:41 15:11 Wound Center Nurse 2 #1 RLE med -Time 15:35 15:42 15:13 -Correct Patient Yes Yes Yes -Correct Side, Site, Position Yes Yes Yes -Correct Procedure Yes Yes Yes -Procedure Performed Yes Yes Yes -Type of Procedure Debridement Debridement Debridement -Clinical Debridement Subcutaneous Subcutaneous Subcutaneous -Post Debridement Size (cm) - Length 2.9 2.5 2.3 -Post Debridement Size (cm) - Width 2.1 1.9 1.6 -Post Debridement Size (cm) - Depth 0.5 0.5 0.3 -Total Square Cm 6.09 4.75 3.68 -Wound/Ulcer Outcome Not Healed Not Healed Not Healed -Ulcer Cleansing Rinsed/ Rinsed/ Rinsed/ Irrigated with Irrigated with Irrigated with Saline Saline Saline -Foul Odor after Cleansing No No No -Bioengineered Tissue Yes Yes Yes -Type of bioengineered Tissue [id number] [facility] -Expiration Date 10/14/20 06/25/21 02/25/19 -Product Lot Number [id number] no-1440 -Percent Used 100 100 -Saline Lot Number [id number] -Topical Lidocaine (%) 4 4 -Bleeding Controlled with Pressure Pressure Pressure -Offloading No No No -Treatment Response Procedure Procedure Procedure Tolerated Well Tolerated Well Tolerated Well Pain Scale: 0-10 Numeric Is Patient Pain Free? Yes Yes 03/04/19 16:47 Wound Center Nurse 2 #1 RLE med -Time 16:50 -Correct Patient Yes -Correct Side, Site, Position Yes -Correct Procedure Yes -Procedure Performed Yes -Type of Procedure Debridement -Clinical Debridement Subcutaneous -Post Debridement Size (cm) - Length 1.6 -Post Debridement Size (cm) - Width 1.7 -Post Debridement Size (cm) - Depth 0.3 -Total Square Cm 2.72 -Wound/Ulcer Outcome Not Healed -Ulcer Cleansing Rinsed/ Irrigated with Saline -Foul Odor after Cleansing No -Bioengineered Tissue -Type of bioengineered Tissue [facility] -Expiration Date 02/13/24 -Product Lot Number [id number] -Percent Used 100 -Saline Lot Number [id number] -Topical Lidocaine (%) 4 -Bleeding Controlled with Pressure -Offloading No -Treatment Response Procedure Tolerated Well Pain Scale: 0-10 Numeric Is Patient Pain Free? Yes Wound debrided: Right anterior lower extremity ulceration status post traumatic hematoma Laterality: Right Type of Debridement: Excisional debridement Anesthesia Used: 5% Lidocaine Gel Depth: in the subcutaneous layer Percentage of wound debrided: 100 Instrument Used: 5mm curette Tissue Removed: Slough and devitalized tissue Severity: Fat Layer Exposed Amount of bleeding with debridement: Mild Bleeding Controlled with: Pressure Patient tolerated procedure well Assessment/Plan Assessment: Nonhealing ulcer status post traumatic hematoma to right anterior lower extremity, suspect venous component. Plan: The patient was seen and examined at the wound center today and was updated on the plan of care. A subcutaneous debridement was performed today. The patient tolerated the procedure well. The patients wound care will consist of: Nushield #2 was applied after subcutaneous debridement, the snap VAC will be on hold at this time, 100% of the product was used with 0% waste. Patient tolerated the procedure well. Light 3m wrap for compression. Wound cultures were collected prior and demonstrated Staphylococcus and Streptococcus +1, no antibiotics initiated as wound bed appears healthy and without signs of infection. Baseline bloodwork ordered and pending. Vascular studies ordered and show venous insufficiency and supranormal arterial suggesting calcification. Patient educated on the importance of diet on wound healing and instructed to increase protein and vitamin C intake. Glucerharriet was called to her pharmacy. A referral was made to nutrition services for her poorly controlled diabetes. Did defer this back to the PCP as well. Patient verbalized understanding. Patient will follow up at wound healing center in one week or sooner if needed. This note was generated with [employer] dictation software. It may contain incorrect words, spelling, and punctuation that were not noted in checking the note before signing. Code Visit 150xxx-152xx: 80612 Skin sub graft trnk/arm/leg
--- NOTE | 2019-03-08 10:10 | PN.PCM_ITS ---
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 Status: Chronic Code(s): L97.912 - Non-pressure chronic ulcer of unspecified part of right lower leg with fat layer exposed Comment: s/p traumatic hematoma (2) Decreased dorsalis pedis pulse Status: Acute Code(s): R09.89 - Other specified symptoms and signs involving the circulatory and respiratory systems (3) Morbid obesity Status: Chronic Code(s): E66.01 - Morbid (severe) obesity due to excess calories (4) Type II diabetes mellitus Status: Chronic Qualifiers: Code(s): E11.9 - Type 2 diabetes mellitus without complications Type of Wound Date of Service: 03/04/19 Chief Complaint: Nonhealing ulceration to right anterior lower extremity times 2 months History of Wound: This is a 73-year-old white female who presents to the wound healing center today with complaints of nonhealing ulcer to the right anterior lower extremity for 2 months. She has a past medical history significant for: Obesity, GERD, HTN, HLD, Chronic CHF Unclear Type, PAF, Anxiety and Depression, Seizure disorder, Diabetes mellitus type II uncontrolled, ERIC, CKD stage III. The patient states that initially the injury occurred roughly 2 months ago where she fell and came into contact with the side of her refrigerator and a hematoma occurred. She states that the hematoma persisted until a couple of weeks ago when she was seen by Dr. Jacques who unroofed the necrotic hematoma. She states that the ulceration has been open since then and draining a small amount of serosanguineous fluid. Her wound care has consisted of rinsing the wound with saline daily. She states that her diabetes is not well controlled and she does not routinely check her blood sugars. She denies any recent cultures being taken or being on any antibiotics. She denies any signs of systemic or localized infection at this time. The patient otherwise denies any fever, chills, nausea, vomiting, shortness of breath, chest pain or pressure, palpitations, orthopnea, lower extremity edema, syncope or presyncopal episodes. Progress of Wound: Post hematoma ulceration of her right lower extremity wound bed is moist and pink without any signs of infection at this time. Depth improving, pt tolerated nushield and 3 m wrap well. The patient otherwise denies any fever, chills, nausea, vomiting, shortness of breath, chest pain or pressure, palpitations, orthopnea, lower extremity edema, syncope or presyncopal episodes. - Physical Exam Vital Signs Temp Pulse Resp BP 96.2 F L 92 18 131/76 H 03/04/19 16:23 03/04/19 16:23 03/04/19 16:23 03/04/19 16:23 General: Alert, Oriented x3, Cooperative, No apparent distress HEENT: PERRLA, EOMI Neck: Supple, No JVD Lungs: Clear to auscultation Cardiovascular: Regular rate, Regular Rhythm Abdomen: Soft, Non Tender, Obese Extremities: No edema, Capillary Refill Less than 3 Seconds Skin: Ulcer/ Wound - Ulceration to right anterior lower extremity with adherent slough, no signs of infection at this time. Musculoskeletal: No Tenderness to Palpation of Joints or Extremities, No Muscle Wasting Neurological: Neuro grossly intact Psych/Mental Status: Normal Affect, Appropriate, Alert and oriented to time, place, person, mood and affect Debridement Note Post-Debridement Measurements/Treatment WC - Nurse 2 - General Ulcer CM Notes Start: 02/11/19 14:32 Freq: Status: Active Protocol: Activity Type Activity Date Activity User E-Sign Co-Sign Detail Recorded Client Recorded Date Recorded By Document 02/11/19 15:35 AN [id number] 02/11/19 15:37 AN Document 02/18/19 15:41 AN [id number] 02/18/19 15:49 AN Document 02/25/19 15:11 AN [id number] 02/25/19 15:19 AN Document 03/04/19 16:47 AN [id number] 03/04/19 16:53 AN 02/11/19 02/18/19 02/25/19 15:35 15:41 15:11 Wound Center Nurse 2 #1 RLE med -Time 15:35 15:42 15:13 -Correct Patient Yes Yes Yes -Correct Side, Site, Position Yes Yes Yes -Correct Procedure Yes Yes Yes -Procedure Performed Yes Yes Yes -Type of Procedure Debridement Debridement Debridement -Clinical Debridement Subcutaneous Subcutaneous Subcutaneous -Post Debridement Size (cm) - Length 2.9 2.5 2.3 -Post Debridement Size (cm) - Width 2.1 1.9 1.6 -Post Debridement Size (cm) - Depth 0.5 0.5 0.3 -Total Square Cm 6.09 4.75 3.68 -Wound/Ulcer Outcome Not Healed Not Healed Not Healed -Ulcer Cleansing Rinsed/ Rinsed/ Rinsed/ Irrigated with Irrigated with Irrigated with Saline Saline Saline -Foul Odor after Cleansing No No No -Bioengineered Tissue Yes Yes Yes -Type of bioengineered Tissue [id number] [facility] -Expiration Date 10/14/20 06/25/21 02/25/19 -Product Lot Number [id number] no-1440 -Percent Used 100 100 -Saline Lot Number [id number] -Topical Lidocaine (%) 4 4 -Bleeding Controlled with Pressure Pressure Pressure -Offloading No No No -Treatment Response Procedure Procedure Procedure Tolerated Well Tolerated Well Tolerated Well Pain Scale: 0-10 Numeric Is Patient Pain Free? Yes Yes 03/04/19 16:47 Wound Center Nurse 2 #1 RLE med -Time 16:50 -Correct Patient Yes -Correct Side, Site, Position Yes -Correct Procedure Yes -Procedure Performed Yes -Type of Procedure Debridement -Clinical Debridement Subcutaneous -Post Debridement Size (cm) - Length 1.6 -Post Debridement Size (cm) - Width 1.7 -Post Debridement Size (cm) - Depth 0.3 -Total Square Cm 2.72 -Wound/Ulcer Outcome Not Healed -Ulcer Cleansing Rinsed/ Irrigated with Saline -Foul Odor after Cleansing No -Bioengineered Tissue -Type of bioengineered Tissue [facility] -Expiration Date 02/13/24 -Product Lot Number [id number] -Percent Used 100 -Saline Lot Number [id number] -Topical Lidocaine (%) 4 -Bleeding Controlled with Pressure -Offloading No -Treatment Response Procedure Tolerated Well Pain Scale: 0-10 Numeric Is Patient Pain Free? Yes Wound debrided: Right anterior lower extremity ulceration status post traumatic hematoma Laterality: Right Type of Debridement: Excisional debridement Anesthesia Used: 5% Lidocaine Gel Depth: in the subcutaneous layer Percentage of wound debrided: 100 Instrument Used: 5mm curette Tissue Removed: Slough and devitalized tissue Severity: Fat Layer Exposed Amount of bleeding with debridement: Mild Bleeding Controlled with: Pressure Patient tolerated procedure well Assessment/Plan Assessment: Nonhealing ulcer status post traumatic hematoma to right anterior lower extremity, suspect venous component. Plan: The patient was seen and examined at the wound center today and was updated on the plan of care. A subcutaneous debridement was performed today. The patient tolerated the procedure well. The patients wound care will consist of: Nushield #2 was applied after subcutaneous debridement, the snap VAC will be on hold at this time, 100% of the product was used with 0% waste. Patient tolerated the procedure well. Light 3m wrap for compression. Wound cultures were collected prior and demonstrated Staphylococcus and Streptococcus +1, no antib iotics initiated as wound bed appears healthy and without signs of infection. Baseline bloodwork ordered and pending. Vascular studies ordered and show venous insufficiency and supranormal arterial suggesting calcification. Patient educated on the importance of diet on wound healing and instructed to increase protein and vitamin C intake. Glucerharriet was called to her pharmacy. A referral was made to nutrition services for her poorly controlled diabetes. Did defer this back to the PCP as well. Patient verbalized understanding. Patient will follow up at wound healing center in one week or sooner if needed. This note was generated with [employer] dictation software. It may contain incorrect words, spelling, and punctuation that were not noted in checking the note before signing. Code Visit 150xxx-152xx: [id number] Skin sub graft trnk/arm/leg
[2019-03-11 16:26] VITALS: BP 118/61; PULSE 90; RESP 18; TEMP 36.4; BMI 35.8
--- NOTE | 2019-03-11 19:18 | PCM.WC.PN ---
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 Status: Chronic Code(s): L97.912 - Non-pressure chronic ulcer of unspecified part of right lower leg with fat layer exposed Comment: s/p traumatic hematoma (2) Decreased dorsalis pedis pulse Status: Acute Code(s): R09.89 - Other specified symptoms and signs involving the circulatory and respiratory systems (3) Morbid obesity Status: Chronic Code(s): E66.01 - Morbid (severe) obesity due to excess calories (4) Type II diabetes mellitus Status: Chronic Qualifiers: Code(s): E11.9 - Type 2 diabetes mellitus without complications Type of Wound Date of Service: 03/11/19 Chief Complaint: Nonhealing ulceration to right anterior lower extremity times 2 months History of Wound: This is a 73-year-old white female who presents to the wound healing center today with complaints of nonhealing ulcer to the right anterior lower extremity for 2 months. She has a past medical history significant for: Obesity, GERD, HTN, HLD, Chronic CHF Unclear Type, PAF, Anxiety and Depression, Seizure disorder, Diabetes mellitus type II uncontrolled, ERIC, CKD stage III. The patient states that initially the injury occurred roughly 2 months ago where she fell and came into contact with the side of her refrigerator and a hematoma occurred. She states that the hematoma persisted until a couple of weeks ago when she was seen by Dr. Jacques who unroofed the necrotic hematoma. She states that the ulceration has been open since then and draining a small amount of serosanguineous fluid. Her wound care has consisted of rinsing the wound with saline daily. She states that her diabetes is not well controlled and she does not routinely check her blood sugars. She denies any recent cultures being taken or being on any antibiotics. She denies any signs of systemic or localized infection at this time. The patient otherwise denies any fever, chills, nausea, vomiting, shortness of breath, chest pain or pressure, palpitations, orthopnea, lower extremity edema, syncope or presyncopal episodes. Progress of Wound: Post hematoma ulceration of her right lower extremity wound bed is moist and pink without any signs of infection at this time. Depth improving, pt tolerated nushield and 3 m wrap well. The patient otherwise denies any fever, chills, nausea, vomiting, shortness of breath, chest pain or pressure, palpitations, orthopnea, lower extremity edema, syncope or presyncopal episodes. - Physical Exam Vital Signs Temp Pulse Resp BP 97.5 F L 90 18 118/61 03/11/19 16:26 03/11/19 16:26 03/11/19 16:26 03/11/19 16:26 General: Alert, Oriented x3, Cooperative, No apparent distress HEENT: Atraumatic Oral: Moist Mucosa Neck: Supple Lungs: Clear to auscultation Cardiovascular: Regular rate Abdomen: Soft, Non Tender, Obese Extremities: No clubbing, No cyanosis, No edema Skin: Ulcer/ Wound - Ulceration to right anterior lower extremity with adherent slough, no signs of infection at this time. Neurological: Neuro grossly intact Psych/Mental Status: Normal Affect, Appropriate, Alert and oriented to time, place, person, mood and affect Debridement Note Post-Debridement Measurements/Treatment WC - Nurse 2 - General Ulcer CM Notes Start: 02/11/19 14:32 Freq: Status: Active Protocol: Activity Type Activity Date Activity User E-Sign Co-Sign Detail Recorded Client Recorded Date Recorded By Document 02/11/19 15:35 AN [id number] 02/11/19 15:37 AN Document 02/18/19 15:41 AN [id number] 02/18/19 15:49 AN Document 02/25/19 15:11 AN [id number] 02/25/19 15:19 AN Document 03/04/19 16:47 AN [id number] 03/04/19 16:53 AN Document 03/11/19 16:33 DL [id number] 03/11/19 16:44 DL 02/11/19 02/18/19 02/25/19 15:35 15:41 15:11 Wound Center Nurse 2 #1 RLE med -Time 15:35 15:42 15:13 -Correct Patient Yes Yes Yes -Correct Side, Site, Position Yes Yes Yes -Correct Procedure Yes Yes Yes -Procedure Performed Yes Yes Yes -Type of Procedure Debridement Debridement Debridement -Clinical Debridement Subcutaneous Subcutaneous Subcutaneous -Post Debridement Size (cm) - Length 2.9 2.5 2.3 -Post Debridement Size (cm) - Width 2.1 1.9 1.6 -Post Debridement Size (cm) - Depth 0.5 0.5 0.3 -Total Square Cm 6.09 4.75 3.68 -Wound/Ulcer Outcome Not Healed Not Healed Not Healed -Ulcer Cleansing Rinsed/ Rinsed/ Rinsed/ Irrigated with Irrigated with Irrigated with Saline Saline Saline -Foul Odor after Cleansing No No No -Bioengineered Tissue Yes Yes Yes -Type of bioengineered Tissue [id number] [facility] -Expiration Date 10/14/20 06/25/21 02/25/19 -Product Lot Number [id number] no-1440 -Percent Used 100 100 -Saline Lot Number [id number] -Topical Lidocaine (%) 4 4 -Bleeding Controlled with Pressure Pressure Pressure -Offloading No No No -Treatment Response Procedure Procedure Procedure Tolerated Well Tolerated Well Tolerated Well Pain Scale: 0-10 Numeric Is Patient Pain Free? Yes Yes 03/04/19 03/11/19 16:47 16:33 Wound Center Nurse 2 #1 RLE med -Time 16:50 16:33 -Correct Patient Yes Yes -Correct Side, Site, Position Yes Yes -Correct Procedure Yes Yes -Procedure Performed Yes Yes -Type of Procedure Debridement Debridement -Clinical Debridement Subcutaneous Subcutaneous -Post Debridement Size (cm) - Length 1.6 1.3 -Post Debridement Size (cm) - Width 1.7 1.1 -Post Debridement Size (cm) - Depth 0.3 0.2 -Total Square Cm 2.72 1.43 -Wound/Ulcer Outcome Not Healed Not Healed -Ulcer Cleansing Rinsed/ Rinsed/ Irrigated with Irrigated with Saline Saline -Foul Odor after Cleansing No No -Bioengineered Tissue No -Type of bioengineered Tissue [facility] -Expiration Date 02/13/24 03/11/19 -Product Lot Number [id number] -Percent Used 100 -Saline Lot Number [id number] -Topical Lidocaine (%) 4 -Bleeding Controlled with Pressure Pressure -Offloading No No -Treatment Response Procedure Procedure Tolerated Well Tolerated Well Pain Scale: 0-10 Numeric Is Patient Pain Free? Yes Yes Wound debrided: Right anterior lower extremity ulcer status post hematoma Laterality: Right Type of Debridement: Excisional debridement Anesthesia Used: 5% Lidocaine Gel Depth: in the subcutaneous layer Percentage of wound debrided: 100 Instrument Used: 5mm curette Tissue Removed: Slough and devitalized tissue Severity: Fat Layer Exposed Amount of bleeding with debridement: Mild Bleeding Controlled with: Pressure Patient tolerated procedure well Assessment/Plan Assessment: Nonhealing ulcer status post traumatic hematoma to right anterior lower extremity, suspect venous component. Plan: The patient was seen and examined at the wound center today and was updated on the plan of care. A subcutaneous debridement was performed today. The patient tolerated the procedure well. The patients wound care will consist of: Nushield #3 was applied after subcutaneous debridement, the snap VAC was discontinued, 100% of the product was used with 0% waste. Patient tolerated the procedure well. Light 3m wrap for compression. Wound cultures were collected prior and demonstrated Staphylococcus and Streptococcus +1, no antibiotics initiated as wound bed appears healthy and without signs of infection. Baseline bloodwork ordered and pending. Vascular studies ordered and show venous insufficiency and supranormal arterial suggesting calcification. Patient educated on the importance of diet on wound healing and instructed to increase protein and vitamin C intake. Glucmandeep was called to her pharmacy. A referral was made to nutrition services for her poorly controlled diabetes. Did defer this back to the PCP as well. Patient verbalized understanding. Patient will follow up at wound healing center in one week or sooner if needed. This note was generated with [employer] dictation software. It may contain incorrect words, spelling, and punctuation that were not noted in checking the note before signing. Code Visit 150xxx-152xx: [id number] Skin sub graft trnk/arm/leg
--- NOTE | 2019-03-16 10:21 | PN.PCM_ITS ---
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 Status: Chronic Code(s): L97.912 - Non-pressure chronic ulcer of unspecified part of right lower leg with fat layer exposed Comment: s/p traumatic hematoma (2) Decreased dorsalis pedis pulse Status: Acute Code(s): R09.89 - Other specified symptoms and signs involving the circulatory and respiratory systems (3) Morbid obesity Status: Chronic Code(s): E66.01 - Morbid (severe) obesity due to excess calories (4) Type II diabetes mellitus Status: Chronic Qualifiers: Code(s): E11.9 - Type 2 diabetes mellitus without complications Type of Wound Date of Service: 03/11/19 Chief Complaint: Nonhealing ulceration to right anterior lower extremity times 2 months History of Wound: This is a 73-year-old white female who presents to the wound healing center today with complaints of nonhealing ulcer to the right anterior lower extremity for 2 months. She has a past medical history significant for: Obesity, GERD, HTN, HLD, Chronic CHF Unclear Type, PAF, Anxiety and Depression, Seizure disorder, Diabetes mellitus type II uncontrolled, ERIC, CKD stage III. The patient states that initially the injury occurred roughly 2 months ago where she fell and came into contact with the side of her refrigerator and a hematoma occurred. She states that the hematoma persisted until a couple of weeks ago when she was seen by Dr. Jacques who unroofed the necrotic hematoma. She states that the ulceration has been open since then and draining a small amount of serosanguineous fluid. Her wound care has consisted of rinsing the wound with saline daily. She states that her diabetes is not well controlled and she does not routinely check her blood sugars. She denies any recent cultures being taken or being on any antibiotics. She denies any signs of systemic or localized infection at this time. The patient otherwise denies any fever, chills, nausea, vomiting, shortness of breath, chest pain or pressure, palpitations, orthopnea, lower extremity edema, syncope or presyncopal episodes. Progress of Wound: Post hematoma ulceration of her right lower extremity wound bed is moist and pink without any signs of infection at this time. Depth improving, pt tolerated nushield and 3 m wrap well. The patient otherwise denies any fever, chills, nausea, vomiting, shortness of breath, chest pain or pressure, palpitations, orthopnea, lower extremity edema, syncope or presyncopal episodes. - Physical Exam Vital Signs Temp Pulse Resp BP 97.5 F L 90 18 118/61 03/11/19 16:26 03/11/19 16:26 03/11/19 16:26 03/11/19 16:26 General: Alert, Oriented x3, Cooperative, No apparent distress HEENT: Atraumatic Oral: Moist Mucosa Neck: Supple Lungs: Clear to auscultation Cardiovascular: Regular rate Abdomen: Soft, Non Tender, Obese Extremities: No clubbing, No cyanosis, No edema Skin: Ulcer/ Wound - Ulceration to right anterior lower extremity with adherent slough, no signs of infection at this time. Neurological: Neuro grossly intact Psych/Mental Status: Normal Affect, Appropriate, Alert and oriented to time, place, person, mood and affect Debridement Note Post-Debridement Measurements/Treatment WC - Nurse 2 - General Ulcer CM Notes Start: 02/11/19 14:32 Freq: Status: Active Protocol: Activity Type Activity Date Activity User E-Sign Co-Sign Detail Recorded Client Recorded Date Recorded By Document 02/11/19 15:35 AN [id number] 02/11/19 15:37 AN Document 02/18/19 15:41 AN [id number] 02/18/19 15:49 AN Document 02/25/19 15:11 AN [id number] 02/25/19 15:19 AN Document 03/04/19 16:47 AN [id number] 03/04/19 16:53 AN Document 03/11/19 16:33 DL [id number] 03/11/19 16:44 DL 02/11/19 02/18/19 02/25/19 15:35 15:41 15:11 Wound Center Nurse 2 #1 RLE med -Time 15:35 15:42 15:13 -Correct Patient Yes Yes Yes -Correct Side, Site, Position Yes Yes Yes -Correct Procedure Yes Yes Yes -Procedure Performed Yes Yes Yes -Type of Procedure Debridement Debridement Debridement -Clinical Debridement Subcutaneous Subcutaneous Subcutaneous -Post Debridement Size (cm) - Length 2.9 2.5 2.3 -Post Debridement Size (cm) - Width 2.1 1.9 1.6 -Post Debridement Size (cm) - Depth 0.5 0.5 0.3 -Total Square Cm 6.09 4.75 3.68 -Wound/Ulcer Outcome Not Healed Not Healed Not Healed -Ulcer Cleansing Rinsed/ Rinsed/ Rinsed/ Irrigated with Irrigated with Irrigated with Saline Saline Saline -Foul Odor after Cleansing No No No -Bioengineered Tissue Yes Yes Yes -Type of bioengineered Tissue [id number] [facility] -Expiration Date 10/14/20 06/25/21 02/25/19 -Product Lot Number [id number] -Percent Used 100 100 -Saline Lot Number [id number] -Topical Lidocaine (%) 4 4 -Bleeding Controlled with Pressure Pressure Pressure -Offloading No No No -Treatment Response Procedure Procedure Procedure Tolerated Well Tolerated Well Tolerated Well Pain Scale: 0-10 Numeric Is Patient Pain Free? Yes Yes 03/04/19 03/11/19 16:47 16:33 Wound Center Nurse 2 #1 RLE med -Time 16:50 16:33 -Correct Patient Yes Yes -Correct Side, Site, Position Yes Yes -Correct Procedure Yes Yes -Procedure Performed Yes Yes -Type of Procedure Debridement Debridement -Clinical Debridement Subcutaneous Subcutaneous -Post Debridement Size (cm) - Length 1.6 1.3 -Post Debridement Size (cm) - Width 1.7 1.1 -Post Debridement Size (cm) - Depth 0.3 0.2 -Total Square Cm 2.72 1.43 -Wound/Ulcer Outcome Not Healed Not Healed -Ulcer Cleansing Rinsed/ Rinsed/ Irrigated with Irrigated with Saline Saline -Foul Odor after Cleansing No No -Bioengineered Tissue No -Type of bioengineered Tissue [facility] -Expiration Date 02/13/24 03/11/19 -Product Lot Number [id number] -Percent Used 100 -Saline Lot Number [id number] -Topical Lidocaine (%) 4 -Bleeding Controlled with Pressure Pressure -Offloading No No -Treatment Response Procedure Procedure Tolerated Well Tolerated Well Pain Scale: 0-10 Numeric Is Patient Pain Free? Yes Yes Wound debrided: Right anterior lower extremity ulcer status post hematoma Laterality: Right Type of Debridement: Excisional debridement Anesthesia Used: 5% Lidocaine Gel Depth: in the subcutaneous layer Percentage of wound debrided: 100 Instrument Used: 5mm curette Tissue Removed: Slough and devitalized tissue Severity: Fat Layer Exposed Amount of bleeding with debridement: Mild Bleeding Controlled with: Pressure Patient tolerated procedure well Assessment/Plan Assessment: Nonhealing ulcer status post traumatic hematoma to right anterior lower extremity, suspect venous component. Plan: The patient was seen and examined at the wound center today and was updated on the plan of care. A subcutaneous debridement was performed today. The patient tolerated the procedure well. The patients wound care will consist of: Nushield #3 was applied after subcutaneous debridement, the snap VAC was discontinued, 100% of the product was used with 0% waste. Patient tolerated the procedure well. Light 3m wrap for compression. Wound cultures were collected prior and demonstrated Staphylococcus and Streptococcus +1, no antibiotics initiated as wound bed appears healthy and without signs of infection. Baseline bloodwork ordered and pending. Vascular studies ordered and show venous insufficiency and supranormal arterial suggesting calcification. Patient educated on the importance of diet on wound healing and instructed to increase protein and vitamin C intake. Glucmandeep was called to her pharmacy. A referral was made to nutrition services for her poorly controlled diabetes. Did defer this back to the PCP as well. Patient verbalized understanding. Patient will follow up at wound healing center in one week or sooner if needed. This note was generated with [employer] dictation software. It may contain incorrect words, spelling, and punctuation that were not noted in checking the note before signing. Code Visit 150xxx-152xx: [id number] Skin sub graft trnk/arm/leg
== END 2019-03-12 23:59 ==
LOC: WC 16:15
PROVIDERS: Family Provider Internal Medicine; PCP Internal Medicine; Referring Provider Nurse Practitioner Family; Visit Provider Nurse Practitioner Family
DX: E11.622 Type 2 diabetes mellitus with other skin ulcer (principal); L97.812 Non-pressure chronic ulcer of other part of right lower leg with fat layer exposed; E66.01 Morbid (severe) obesity due to excess calories; Z71.3 Dietary counseling and surveillance; I50.9 Heart failure, unspecified; I13.0 Hypertensive heart and chronic kidney disease with heart failure and stage 1 through stage 4 chronic kidney disease, or unspecified chronic kidney disease; G47.33 Obstructive sleep apnea (adult) (pediatric); G40.909 Epilepsy, unspecified, not intractable, without status epilepticus; I48.0 Paroxysmal atrial fibrillation; E78.5 Hyperlipidemia, unspecified; F41.9 Anxiety disorder, unspecified; F32.9 Major depressive disorder, single episode, unspecified; K21.9 Gastro-esophageal reflux disease without esophagitis; E11.65 Type 2 diabetes mellitus with hyperglycemia; N18.3 Chronic kidney disease, stage 3 (moderate); R09.89 Other specified symptoms and signs involving the circulatory and respiratory systems; R60.0 Localized edema
CPT/HCPCS: 11042; 15271; 93923; 93970; 97607; Q4160; Q4196

== ENCOUNTER 2019-03-30 10:15 | Outpatient (RCR) | payer MEDICARE, SELFPAY ==
[2019-03-13 01:05] VITALS: BP 118/61; PULSE 90; RESP 18; TEMP 36.4
[2019-03-18 16:26] VITALS: BP 139/88; PULSE 93; RESP 16; TEMP 36; BMI 35.8
--- NOTE | 2019-03-21 15:44 | PCM.WC.PN ---
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 Status: Chronic Code(s): L97.912 - Non-pressure chronic ulcer of unspecified part of right lower leg with fat layer exposed Comment: s/p traumatic hematoma (2) Decreased dorsalis pedis pulse Status: Acute Code(s): R09.89 - Other specified symptoms and signs involving the circulatory and respiratory systems (3) Hyperlipidemia Status: Chronic Qualifiers: Code(s): E78.5 - Hyperlipidemia, unspecified (4) Hypertension Status: Chronic Qualifiers: Code(s): I10 - Essential (primary) hypertension (5) Morbid obesity Status: Chronic Code(s): E66.01 - Morbid (severe) obesity due to excess calories (6) PVD (peripheral vascular disease) Status: Chronic Code(s): I73.9 - Peripheral vascular disease, unspecified Type of Wound Date of Service: 03/18/19 Chief Complaint: Nonhealing ulceration to right anterior lower extremity times 2 months History of Wound: This is a 73-year-old white female who presents to the wound healing center today with complaints of nonhealing ulcer to the right anterior lower extremity for 2 months. She has a past medical history significant for: Obesity, GERD, HTN, HLD, Chronic CHF Unclear Type, PAF, Anxiety and Depression, Seizure disorder, Diabetes mellitus type II uncontrolled, ERIC, CKD stage III. The patient states that initially the injury occurred roughly 2 months ago where she fell and came into contact with the side of her refrigerator and a hematoma occurred. She states that the hematoma persisted until a couple of weeks ago when she was seen by Dr. Jacques who unroofed the necrotic hematoma. She states that the ulceration has been open since then and draining a small amount of serosanguineous fluid. Her wound care has consisted of rinsing the wound with saline daily. She states that her diabetes is not well controlled and she does not routinely check her blood sugars. She denies any recent cultures being taken or being on any antibiotics. She denies any signs of systemic or localized infection at this time. The patient otherwise denies any fever, chills, nausea, vomiting, shortness of breath, chest pain or pressure, palpitations, orthopnea, lower extremity edema, syncope or presyncopal episodes. Progress of Wound: Post hematoma ulceration of her right lower extremity wound bed is moist and pink without any signs of infection at this time. Depth improving, pt tolerated nushield and 3 m wrap well. The patient otherwise denies any fever, chills, nausea, vomiting, shortness of breath, chest pain or pressure, palpitations, orthopnea, lower extremity edema, syncope or presyncopal episodes. - Physical Exam Vital Signs Temp Pulse Resp BP 96.8 F L 93 16 139/88 H 03/18/19 16:26 03/18/19 16:26 03/18/19 16:26 03/18/19 16:26 General: Alert, Oriented x3, Cooperative, No apparent distress HEENT: PERRLA, EOMI Neck: Supple, No JVD Lungs: Clear to auscultation Cardiovascular: Regular rate, Regular Rhythm Abdomen: Soft, Non Tender, Obese Extremities: No edema, Capillary Refill Less than 3 Seconds, Diminished Peripheral Pulses Skin: Ulcer/ Wound - ulceration to right lower extremity with adherant slough, no signs of infection at this time. Wound Measurements and Assessment WC - Nurse 1 - General Ulcer Measurement Start: 03/18/19 16:26 Freq: Status: Active Protocol: Activity Type Activity Date Activity User E-Sign Co-Sign Detail Recorded Client Recorded Date Recorded By Document 03/18/19 16:26 [facility] [id number] 03/18/19 16:32 [facility] 03/18/19 16:26 Wound Center Nurse 1 [Ulcer Assessment] #1 RLE med -Combined with other wound No -Current Size (cm) - Length 0.1 -Current Size (cm) - Width 0.1 -Current Size (cm) - Depth 0.1 -Total Square Cm 0.01 -Photo Taken No -Epithelialization None Present -Tunneling No -Undermining/Tunneling No -Circular Undermining No -Wound Margin Flat & Intact -Granulation Amt None Present (0 %) -Slough/Fibrin Yes -Necrosis Amt Large (67-100%) -Necrotic Tissue Type Adherent Slough -Texture (Zamzam-wound Skin Appearance) Assessed Scarring -Moisture (Zamzam-wound Skin Appearance Assessed ) Dry/Scaly -Color (Zamzam-wound Skin Appearance) Assessed -Temperature (Zamzam-wound Skin No Abnormality Appearance) (Pt Warm) -Tenderness on Palpation (Zamzam-wound No Skin Appearance) -Ulcer Cleansing Wound Cleanser -Foul Odor after Cleansing No -Anesthetic Used 5% Lidocaine Gel [Edema Assessment] -Lower Limb Edema Present Yes -Right Calf (cm) 38 -Right Ankle (cm) 25.1 WC - Nurse 2 - General Ulcer CM Notes Start: 03/18/19 16:26 Freq: Status: Active Protocol: Activity Type Activity Date Activity User E-Sign Co-Sign Detail Recorded Client Recorded Date Recorded By Document 03/18/19 16:49 AN [id number] 03/18/19 16:53 AN 03/18/19 16:49 Wound Center Nurse 2 [Procedure/Treatment] #1 RLE med -Time 16:53 -Correct Patient Yes -Correct Side, Site, Position Yes -Correct Procedure Yes -Procedure Performed Yes -Type of Procedure Debridement -Clinical Debridement Subcutaneous -Post Debridement Size (cm) - Length 0.9 -Post Debridement Size (cm) - Width 1.2 -Post Debridement Size (cm) - Depth 0.2 -Total Square Cm 1.08 -Wound/Ulcer Outcome Not Healed -Ulcer Cleansing Rinsed/ Irrigated with Saline -Foul Odor after Cleansing No -Bioengineered Tissue Yes -Type of bioengineered Tissue NU-SHIELD [See Physician Procedure note for Specifics] Debridement Note Post-Debridement Measurements/Treatment WC - Nurse 2 - General Ulcer CM Notes Start: 03/18/19 16:26 Freq: Status: Active Protocol: Activity Type Activity Date Activity User E-Sign Co-Sign Detail Recorded Client Recorded Date Recorded By Document 03/18/19 16:49 AN [id number] 03/18/19 16:53 AN 03/18/19 16:49 Wound Center Nurse 2 #1 RLE med -Time 16:53 -Correct Patient Yes -Correct Side, Site, Position Yes -Correct Procedure Yes -Procedure Performed Yes -Type of Procedure Debridement -Clinical Debridement Subcutaneous -Post Debridement Size (cm) - Length 0.9 -Post Debridement Size (cm) - Width 1.2 -Post Debridement Size (cm) - Depth 0.2 -Total Square Cm 1.08 -Wound/Ulcer Outcome Not Healed -Ulcer Cleansing Rinsed/ Irrigated with Saline -Foul Odor after Cleansing No -Bioengineered Tissue Yes -Type of bioengineered Tissue NU-SHIELD Wound debrided: right lower extremity ulcer s/p hematoma Laterality: Right Type of Debridement: Excisional debridement Anesthesia Used: 5% Lidocaine Gel Depth: in the subcutaneous layer Percentage of wound debrided: 100 Instrument Used: 5mm curette Tissue Removed: slough and devitalized tissue Severity: Fat Layer Exposed Amount of bleeding with debridement: Mild Bleeding Controlled with: Pressure Patient tolerated procedure well Assessment/Plan Assessment: Nonhealing ulcer status post traumatic hematoma to right anterior lower extremity, suspect venous component. Plan: The patient was seen and examined at the wound center today and was updated on the plan of care. A subcutaneous debridement was performed today. The patient tolerated the procedure well. The patients wound care will consist of: Nushield #4 was applied after subcutaneous debridement, the snap VAC will be on hold at this time, 100% of the product was used with 0% waste. Patient tolerated the procedure well. Light 3m wrap for compression. Wound cultures were collected prior and demonstrated Staphylococcus and Streptococcus +1, no antibiotics initiated as wound bed appears healthy and without signs of infection. Baseline bloodwork ordered and pending. Vascular studies ordered and show venous insufficiency and supranormal arterial suggesting calcification. Patient educated on the importance of diet on wound healing and instructed to increase protein and vitamin C intake. Glucmandeep was called to her pharmacy. A referral was made to nutrition services for her poorly controlled diabetes. Did defer this back to the PCP as well. Patient verbalized understanding. Patient will follow up at wound healing center in one week or sooner if needed. This note was generated with [employer] dictation software. It may contain incorrect words, spelling, and punctuation that were not noted in checking the note before signing. Code Visit 150xxx-152xx: [id number] Skin sub graft trnk/arm/leg
--- NOTE | 2019-03-21 15:47 | PN.PCM_ITS ---
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 Status: Chronic Code(s): L97.912 - Non-pressure chronic ulcer of unspecified part of right lower leg with fat layer exposed Comment: s/p traumatic hematoma (2) Decreased dorsalis pedis pulse Status: Acute Code(s): R09.89 - Other specified symptoms and signs involving the circulatory and respiratory systems (3) Hyperlipidemia Status: Chronic Qualifiers: Code(s): E78.5 - Hyperlipidemia, unspecified (4) Hypertension Status: Chronic Qualifiers: Code(s): I10 - Essential (primary) hypertension (5) Morbid obesity Status: Chronic Code(s): E66.01 - Morbid (severe) obesity due to excess calories (6) PVD (peripheral vascular disease) Status: Chronic Code(s): I73.9 - Peripheral vascular disease, unspecified Type of Wound Date of Service: 03/18/19 Chief Complaint: Nonhealing ulceration to right anterior lower extremity times 2 months History of Wound: This is a 73-year-old white female who presents to the wound healing center today with complaints of nonhealing ulcer to the right anterior lower extremity for 2 months. She has a past medical history significant for: Obesity, GERD, HTN, HLD, Chronic CHF Unclear Type, PAF, Anxiety and Depression, Seizure disorder, Diabetes mellitus type II uncontrolled, ERIC, CKD stage III. The patient states that initially the injury occurred roughly 2 months ago where she fell and came into contact with the side of her refrigerator and a hematoma occurred. She states that the hematoma persisted until a couple of weeks ago when she was seen by Dr. Jacques who unroofed the necrotic hematoma. She states that the ulceration has been open since then and draining a small amount of serosanguineous fluid. Her wound care has consisted of rinsing the wound with saline daily. She states that her diabetes is not well controlled and she does not routinely check her blood sugars. She denies any recent cultures being taken or being on any antibiotics. She denies any signs of systemic or localized infection at this time. The patient otherwise denies any fever, chills, nausea, vomiting, shortness of breath, chest pain or pressure, palpitations, orthopnea, lower extremity edema, syncope or presyncopal episodes. Progress of Wound: Post hematoma ulceration of her right lower extremity wound bed is moist and pink without any signs of infection at this time. Depth improving, pt tolerated nushield and 3 m wrap well. The patient otherwise denies any fever, chills, nausea, vomiting, shortness of breath, chest pain or pressure, palpitations, orthopnea, lower extremity edema, syncope or presyncopal episodes. - Physical Exam Vital Signs Temp Pulse Resp BP 96.8 F L 93 16 139/88 H 03/18/19 16:26 03/18/19 16:26 03/18/19 16:26 03/18/19 16:26 General: Alert, Oriented x3, Cooperative, No apparent distress HEENT: PERRLA, EOMI Neck: Supple, No JVD Lungs: Clear to auscultation Cardiovascular: Regular rate, Regular Rhythm Abdomen: Soft, Non Tender, Obese Extremities: No edema, Capillary Refill Less than 3 Seconds, Diminished Peripheral Pulses Skin: Ulcer/ Wound - ulceration to right lower extremity with adherant slough, no signs of infection at this time. Wound Measurements and Assessment WC - Nurse 1 - General Ulcer Measurement Start: 03/18/19 16:26 Freq: Status: Active Protocol: Activity Type Activity Date Activity User E-Sign Co-Sign Detail Recorded Client Recorded Date Recorded By Document 03/18/19 16:26 [facility] [id number] 03/18/19 16:32 [facility] 03/18/19 16:26 Wound Center Nurse 1 [Ulcer Assessment] #1 RLE med -Combined with other wound No -Current Size (cm) - Length 0.1 -Current Size (cm) - Width 0.1 -Current Size (cm) - Depth 0.1 -Total Square Cm 0.01 -Photo Taken No -Epithelialization None Present -Tunneling No -Undermining/Tunneling No -Circular Undermining No -Wound Margin Flat & Intact -Granulation Amt None Present (0 %) -Slough/Fibrin Yes -Necrosis Amt Large (67-100%) -Necrotic Tissue Type Adherent Slough -Texture (Zamzam-wound Skin Appearance) Assessed Scarring -Moisture (Zamzam-wound Skin Appearance Assessed ) Dry/Scaly -Color (Zamzam-wound Skin Appearance) Assessed -Temperature (Zamzam-wound Skin No Abnormality Appearance) (Pt Warm) -Tenderness on Palpation (Zamzam-wound No Skin Appearance) -Ulcer Cleansing Wound Cleanser -Foul Odor after Cleansing No -Anesthetic Used 5% Lidocaine Gel [Edema Assessment] -Lower Limb Edema Present Yes -Right Calf (cm) 38 -Right Ankle (cm) 25.1 WC - Nurse 2 - General Ulcer CM Notes Start: 03/18/19 16:26 Freq: Status: Active Protocol: Activity Type Activity Date Activity User E-Sign Co-Sign Detail Recorded Client Recorded Date Recorded By Document 03/18/19 16:49 AN [id number] 03/18/19 16:53 AN 03/18/19 16:49 Wound Center Nurse 2 [Procedure/Treatment] #1 RLE med -Time 16:53 -Correct Patient Yes -Correct Side, Site, Position Yes -Correct Procedure Yes -Procedure Performed Yes -Type of Procedure Debridement -Clinical Debridement Subcutaneous -Post Debridement Size (cm) - Length 0.9 -Post Debridement Size (cm) - Width 1.2 -Post Debridement Size (cm) - Depth 0.2 -Total Square Cm 1.08 -Wound/Ulcer Outcome Not Healed -Ulcer Cleansing Rinsed/ Irrigated with Saline -Foul Odor after Cleansing No -Bioengineered Tissue Yes -Type of bioengineered Tissue NU-SHIELD [See Physician Procedure note for Specifics] Debridement Note Post-Debridement Measurements/Treatment WC - Nurse 2 - General Ulcer CM Notes Start: 03/18/19 16:26 Freq: Status: Active Protocol: Activity Type Activity Date Activity User E-Sign Co-Sign Detail Recorded Client Recorded Date Recorded By Document 03/18/19 16:49 AN [id number] 03/18/19 16:53 AN 03/18/19 16:49 Wound Center Nurse 2 #1 RLE med -Time 16:53 -Correct Patient Yes -Correct Side, Site, Position Yes -Correct Procedure Yes -Procedure Performed Yes -Type of Procedure Debridement -Clinical Debridement Subcutaneous -Post Debridement Size (cm) - Length 0.9 -Post Debridement Size (cm) - Width 1.2 -Post Debridement Size (cm) - Depth 0.2 -Total Square Cm 1.08 -Wound/Ulcer Outcome Not Healed -Ulcer Cleansing Rinsed/ Irrigated with Saline -Foul Odor after Cleansing No -Bioengineered Tissue Yes -Type of bioengineered Tissue NU-SHIELD Wound debrided: right lower extremity ulcer s/p hematoma Laterality: Right Type of Debridement: Excisional debridement Anesthesia Used: 5% Lidocaine Gel Depth: in the subcutaneous layer Percentage of wound debrided: 100 Instrument Used: 5mm curette Tissue Removed: slough and devitalized tissue Severity: Fat Layer Exposed Amount of bleeding with debridement: Mild Bleeding Controlled with: Pressure Patient tolerated procedure well Assessment/Plan Assessment: Nonhealing ulcer status post traumatic hematoma to right anterior lower extremity, suspect venous component. Plan: The patient was seen and examined at the wound center today and was updated on the plan of care. A subcutaneous debridement was performed today. The patient tolerated the procedure well. The patients wound care will consist of: Nushield #4 was applied after subcutaneous debridement, the snap VAC will be on hold at this time, 100% of the product was used with 0% waste. Patient tolerated the procedure well. Light 3m wrap for compression. Wound cultures were collected prior and demonstrated Staphylococcus and Streptococcus +1, no antibiotics initiated as wound bed appears healthy and without signs of infection. Baseline bloodwork ordered and pending. Vascular studies ordered and show venous insufficiency and supranormal arterial suggesting calcification. Patient educated on the importance of diet on wound healing and instructed to increase protein and vitamin C intake. Glucmandeep was called to her pharmacy. A referral was made to nutrition services for her poorly controlled diabetes. Did defer this back to the PCP as well. Patient verbalized understanding. Patient will follow up at wound healing center in one week or sooner if needed. This note was generated with [employer] dictation software. It may contain incorrect words, spelling, and punctuation that were not noted in checking the note before signing. Code Visit 150xxx-152xx: [id number] Skin sub graft trnk/arm/leg
[2019-03-24 14:14] VITALS: BP 133/84; PULSE 99; RESP 16; TEMP 35.8; BMI 35.8
--- NOTE | 2019-03-24 15:23 | PCM.WC.HP ---
(1) Benign essential hypertension Status: Chronic Current Visit: No Code(s): I10 - Essential (primary) hypertension (2) CAD (coronary artery disease) Status: Chronic Current Visit: No Qualifiers: Coronary Disease-Associated Artery/Lesion type: [place] artery [place] vs. transplanted heart: [place] heart Code(s): I25.10 - Atherosclerotic heart disease of [place] coronary artery without angina pectoris (3) CKD (chronic kidney disease) stage 3, GFR 30-59 ml/min Status: Chronic Current Visit: No (4) Chronic CHF Status: Chronic Current Visit: No Qualifiers: Code(s): I50.9 - Heart failure, unspecified (5) Chronic back pain Status: Chronic Current Visit: No Qualifiers: Back pain location: back pain in unspecified location Back pain laterality: unspecified Qualified Code(s): M54.9 - Dorsalgia, unspecified; G89.29 - Other chronic pain Code(s): M54.9 - Dorsalgia, unspecified; G89.29 - Other chronic pain (6) Hyperlipidemia Status: Chronic Current Visit: No Qualifiers: Code(s): E78.5 - Hyperlipidemia, unspecified (7) Hypertension Status: Chronic Current Visit: No Qualifiers: Code(s): I10 - Essential (primary) hypertension (8) Migraine Status: Chronic Current Visit: No Qualifiers: Migraine type: unspecified Status migrainosus presence: without status migrainosus Intractability: not intractable Qualified Code(s): G43.909 - Migraine, unspecified, not intractable, without status migrainosus Code(s): G43.909 - Migraine, unspecified, not intractable, without status migrainosus (9) Morbid obesity Status: Chronic Current Visit: No Code(s): E66.01 - Morbid (severe) obesity due to excess calories (10) 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 Status: Chronic Current Visit: Yes Code(s): L97.912 - Non-pressure chronic ulcer of unspecified part of right lower leg with fat layer exposed Comment: s/p traumatic hematoma (11) Osteoarthritis Status: Chronic Current Visit: No Qualifiers: (12) Sleep apnea Status: Chronic Current Visit: No Qualifiers: Code(s): G47.30 - Sleep apnea, unspecified (13) Type II diabetes mellitus Status: Chronic Current Visit: Yes Code(s): E11.9 - Type 2 diabetes mellitus without complications (14) Wound of right lower extremity Status: Chronic Current Visit: Yes Qualifiers: Encounter type: initial encounter Qualified Code(s): S81.801A - Unspecified open wound, right lower leg, initial encounter Code(s): S81.801A - Unspecified open wound, right lower leg, initial encounter History of Present Illness Chief Complaint: Nonhealing wound to right anterior lower extremity History of Wound: This is a 73-year-old white female who presents to the W[facility]aling Center with a nonhealing wound to the right anterior lower extremity. The wound occurred as a result of trauma resulting from impacting her right lower extremity against her refrigerator. The injury occurred approximately 2 months prior to the patient's initial presentation. The patient's medical history is significant for: Obesity, GERD, HTN, HLD, Chronic CHF Unclear Type, PAF, Anxiety and Depression, Seizure disorder, Diabetes mellitus type II uncontrolled, ERIC, CKD stage III. According the patient, upon initially injuring her right lower extremity, a hematoma formed. She states that the hematoma persisted until a couple of weeks prior to presentation, when she was seen by Dr. Jacques who unroofed the necrotic hematoma. She stated that the ulceration had been open since then and draining a small amount of serosanguineous fluid. Her wound care consisted of rinsing the wound with saline daily. She stated that her diabetes is not well controlled and she does not routinely check her blood sugars. She denied any recent cultures being taken or being on any antibiotics. The patient denied fever, chills, nausea, vomiting, shortness of breath, chest pain or pressure, palpitations, orthopnea, lower extremity edema, syncope or presyncopal episodes. Past Medical History Past Medical History: Chronic Problems 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 (Chronic) s/p traumatic hematoma PVD (peripheral vascular disease) (Chronic) Wound of right lower extremity (Chronic) Migraine (Chronic) Hyperlipidemia (Chronic) Hypertension (Chronic) Benign essential hypertension (Chronic) CAD (coronary artery disease) (Chronic) Chronic CHF (Chronic) Chronic constipation (Chronic) Type II diabetes mellitus (Chronic) Morbid obesity (Chronic) Osteoarthritis (Chronic) Spondylosis (Chronic) History of urinary incontinence (Chronic) Chronic back pain (Chronic) Sleep apnea (Chronic) CKD (chronic kidney disease) stage 3, GFR 30-59 ml/min (Chronic) Surgical History: hysterectomy, - - ECI x2, thyroidectomy for goiter, left lower extremity surgery for bone cancer, pacemaker, hysterectomy. Allergies/Adverse Reactions: Allergies atorvastatin calcium [From Lipitor] Allergy (Verified 11/25/18 19:11) dont remember codeine Allergy (Verified 11/25/18 19:11) Rash iodine Allergy (Verified 11/25/18 19:11) Rash Latex, Natural Rubber Allergy (Verified 11/25/18 19:11) Rash lovastatin Allergy (Verified 11/25/18 19:11) Rash rosuvastatin calcium [From Crestor] Allergy (Verified 11/25/18 19:11) rash\ naproxen [From Naprosyn] Adverse Reaction (Verified 11/25/18 19:11) Upset Stomach pregabalin [From Lyrica] Adverse Reaction (Verified 11/25/18 19:11) Upset Stomach Sulfa (Sulfonamide Antibiotics) Adverse Reaction (Verified 11/25/18 19:11) Upset Stomach Home Medications: Ambulatory Orders Medication Instructions Recorded Insulin Aspart [Novolog Flexpen] 24 units SC TIDCM 03/12/17 Insulin Degludec [Tresiba 76 unit SQ DAILY 10/11/17 Flextouch U-100] Metoprolol Succinate [Toprol Xl] 50 mg PO DAILY 10/11/17 levETIRAcetam tablet [Keppra 500 mg PO BID 10/11/17 tablet] Fluticasone 0.05% [Flonase Nasal 2 sprays NASAL DAILY 04/27/18 [place]] Furosemide [Lasix] 20 mg PO BID 04/27/18 Lisinopril [Zestril] 10 mg PO DAILY 04/27/18 Omeprazole 20 mg PO DAILY 04/27/18 Polyethylene Glycol 3350 [Miralax] 17 gm PO DAILY PRN 04/27/18 Prasugrel HCl 10 mg PO DAILY 06/04/18 Rivaroxaban [Xarelto] 15 mg PO DAILY 06/04/18 Simvastatin [Zocor] 40 mg PO QHS 06/04/18 Acetaminophen [Tylenol] 1,000 mg PO PRN PRN 11/18/18 Cetirizine HCl [Zyrtec] 10 mg PO DAILY PRN 11/18/18 Duloxetine HCl 30 mg PO DAILY 11/18/18 Isosorbide Mononitrate [Isosorbide 3 tab PO DAILY 11/18/18 Mononitrate ER] Ketorolac Tromethamine [Acular] 1 drop OPHTHALMIC 4X/DAY 11/18/18 Lidocaine [Lidoderm Patch] 1 patch TOPICAL DAILY 11/18/18 Sennosides/Docusate Sodium [Senna 2 tab PO DAILY 11/18/18 Plus Tablet] prednisoLONE eye drops (1 mL) 1 drop EACH EYE 4X/DAY 11/18/18 [Pred Forte eye drops (1 mL)] Isosorbide Mononitrate [Imdur] 90 mg PO DAILY tablet 11/19/18 - Family History Maternal - - History of alcoholic cirrhosis Paternal Cancer - Her father had colon cancer. Sibling Cancer - Her sister had ovarian cancer., Hypertension Smoking Status: Former smoker Tobacco Use: Non-smoker Review of Systems Constitutional: Denies: Chills, Fever, Weight Change Eyes: Denies: Pain, Vision Change HEENT: Denies: Difficulty Hearing, Difficulty Swallowing, Sinus Congestion Cardiovascular: Denies: Chest Pain, Palpitations Respiratory: Denies: Cough, Shortness of Breath Gastrointestinal: Denies: Diarrhea, Nausea, Vomiting Genitourinary: Denies: Dysuria, Hematuria Endocrine: Denies: Heat/ Cold Intolerance, Polydipsia, Polyuria Hematologic/ Lymphatic: Denies: Easy Bruising, Easy Bleeding - Physical Exam Vital Signs Temp Pulse Resp BP 96.4 F L 99 16 133/84 H 03/24/19 14:14 03/24/19 14:14 03/24/19 14:14 03/24/19 14:14 General: Alert, Oriented x3, Cooperative, No apparent distress, Well developed, Well nourished HEENT: Atraumatic, PERRLA, EOMI, Normocephalic Oral: Moist Mucosa Neck: No JVD Lungs: Normal air movement Abdomen: Non-Distended, Obese Extremities: No clubbing, No cyanosis, No Calf Tenderness, - - Mild bilateral swelling and edema is noted in the lower extremities bilaterally. No open wound is noted on the right anterior tibial surface. Dimensions are documented elsewhere. There is no sign of infection or cellulitis. There is a small amount of bioburden and a significant amount of retained allograft, consisting of the NuShield which was placed 1 week ago. Skin: No rashes Wound Measurements and Assessment WC - Nurse 1 - General Ulcer Measurement Start: 03/18/19 16:26 Freq: Status: Active Protocol: Activity Type Activity Date Activity User E-Sign Co-Sign Detail Recorded Client Recorded Date Recorded By Document 03/24/19 14:14 [facility] [id number] 03/24/19 14:18 [facility] 03/24/19 14:14 Wound Center Nurse 1 [Ulcer Assessment] #1 RLE med -Combined with other wound No -Current Size (cm) - Length 1.3 -Current Size (cm) - Width 0.9 -Current Size (cm) - Depth 0.1 -Total Square Cm 1.17 -Photo Taken No -Epithelialization None Present -Tunneling No -Undermining/Tunneling No -Circular Undermining No -Exudate Amt Small -Exudate Type Serous -Wound Margin Distinct, Outline Attached -Granulation Amt None Present (0 %) -Slough/Fibrin Yes -Necrosis Amt Large (67-100%) -Necrotic Tissue Type Adherent Slough -Texture (Zamzam-wound Skin Appearance) Assessed Scarring -Moisture (Zamzam-wound Skin Appearance Assessed ) -Color (Zamzam-wound Skin Appearance) Assessed -Temperature (Zamzam-wound Skin No Abnormality Appearance) (Pt Warm) -Tenderness on Palpation (Zamzam-wound No Skin Appearance) -Ulcer Cleansing Wound Cleanser -Foul Odor after Cleansing No -Anesthetic Used 5% Lidocaine Gel [Edema Assessment] -Lower Limb Edema Present Yes WC - Nurse 2 - General Ulcer CM Notes Start: 03/18/19 16:26 Freq: Status: Active Protocol: Activity Type Activity Date Activity User E-Sign Co-Sign Detail Recorded Client Recorded Date Recorded By Document 03/24/19 14:53 AN [id number] 03/24/19 15:06 AN 03/24/19 14:53 Wound Center Nurse 2 [Procedure/Treatment] #1 RLE med -Time 14:54 -Correct Patient Yes -Correct Side, Site, Position Yes -Correct Procedure Yes -Procedure Performed Yes -Type of Procedure Debridement -Clinical Debridement Subcutaneous -Post Debridement Size (cm) - Length 0.9 -Post Debridement Size (cm) - Width 1.0 -Post Debridement Size (cm) - Depth 0.2 -Total Square Cm 0.90 -Wound/Ulcer Outcome Not Healed -Ulcer Cleansing Rinsed/ Irrigated with Saline -Foul Odor after Cleansing No -Bioengineered Tissue Yes -Type of bioengineered Tissue NU-SHIELD -Expiration Date 02/15/24 -Product Lot Number [id number] -Percent Used 100 -Saline Lot Number [id number] -Topical Lidocaine (%) 4 -Bleeding Controlled with Pressure -Offloading No -Treatment Response Procedure Tolerated Well [See Physician Procedure note for Specifics] Pain Scale: 0-10 Numeric [Pain] -Is Patient Pain Free? Yes Neurological: Cranial nerves II-XII grossly intact, Neuro grossly intact Psych/Mental Status: Normal Affect, Appropriate, Alert and oriented to time, place, person, mood and affect Debridement Note Post-Debridement Measurements/Treatment WC - Nurse 2 - General Ulcer CM Notes Start: 03/18/19 16:26 Freq: Status: Active Protocol: Activity Type Activity Date Activity User E-Sign Co-Sign Detail Recorded Client Recorded Date Recorded By Document 03/18/19 16:49 AN [id number] 03/18/19 16:53 AN Document 03/24/19 14:53 AN [id number] 03/24/19 15:06 AN 03/18/19 03/24/19 16:49 14:53 Wound Center Nurse 2 #1 RLE med -Time 16:53 14:54 -Correct Patient Yes Yes -Correct Side, Site, Position Yes Yes -Correct Procedure Yes Yes -Procedure Performed Yes Yes -Type of Procedure Debridement Debridement -Clinical Debridement Subcutaneous Subcutaneous -Post Debridement Size (cm) - Length 0.9 0.9 -Post Debridement Size (cm) - Width 1.2 1.0 -Post Debridement Size (cm) - Depth 0.2 0.2 -Total Square Cm 1.08 0.90 -Wound/Ulcer Outcome Not Healed Not Healed -Ulcer Cleansing Rinsed/ Rinsed/ Irrigated with Irrigated with Saline Saline -Foul Odor after Cleansing No No -Bioengineered Tissue Yes Yes -Type of bioengineered Tissue NU-SHIELD NU-SHIELD -Expiration Date 02/15/24 -Product Lot Number [id number] - [id number] -Percent Used 100 -Saline Lot Number [id number] -Topical Lidocaine (%) 4 -Bleeding Controlled with Pressure -Offloading No -Treatment Response Procedure Tolerated Well Pain Scale: 0-10 Numeric Is Patient Pain Free? Yes Laterality: Right - Anterior tibial surface Type of Debridement: Excisional debridement Anesthesia Used: 5% Lidocaine Gel Depth: Down to and including healthy tissue, in the subcutaneous layer Percentage of wound debrided: 100 Instrument Used: 5mm curette Tissue Removed: Bioburden and retained allograft Severity: Fat Layer Exposed Amount of bleeding with debridement: Mild Bleeding Controlled with: Compression and gauze Patient tolerated procedure well Debridement was performed in standard fashion. A large amount of retained allograft (NuShield) was present, and was removed. This revealed a very healthy appearing wound bed, generally pink and healthy in appearance, with evidence of healthy granulation tissue. There was also evidence of peripheral epithelialization. Following the standard excisional debridement, a NuShield allograft was applied. A 16 mm disc allograft was selected. Upon removal from its sterile packaging, allograft was placed, over which was placed wound veil, a gauze bolster, and gauze, which was then anchored in place securely using Steri-Strips. The entire procedure was well-tolerated by the patient. Assessment/Plan Active Problems 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 (Chronic) s/p traumatic hematoma Wound of right lower extremity (Chronic) Type II diabetes mellitus (Chronic) Assessment: Nonhealing wound, status post traumatic hematoma to right anterior lower extremity. The patient appears to be making good progress. Today's allograft application represents the fifth such application of the allograft product. Plan: The patient was seen and examined at the Wound Center today and was updated on the plan of care. An excisional debridement was performed today. The patient tolerated the procedure well. A NuShield allograft was placed, representing the fifth such application. The procedure was well-tolerated. The right lower extremity was then wrapped with a 2 layer 3M compression wrap, which is to remain in place until the patient returns in 1 week for reevaluation. Patient's recent arterial studies reveal no evidence of significant occlusive disease. The patient has been encouraged to elevate her lower extremities as much as possible, to minimize swelling and edema in her lower extremities. The compression to the right lower extremity will also aid in this goal. Patient has been encouraged to optimize her nutritional intake. She has also been encouraged to optimize her glycemic control. Patient educated on the importance of diet on wound healing and instructed to increase protein and vitamin C intake. A referral was previously made to nutrition services for her poorly controlled diabetes. Patient will follow up at Wound Healing Center in one week or sooner if needed. This note was generated with [email or web address] dictation software. It may contain incorrect words, spelling, and punctuation that were not noted in checking the note before signing.
--- NOTE | 2019-03-24 15:27 | HP.PCM_ITS ---
(1) Benign essential hypertension Status: Chronic Current Visit: No Code(s): I10 - Essential (primary) hypertension (2) CAD (coronary artery disease) Status: Chronic Current Visit: No Qualifiers: Coronary Disease-Associated Artery/Lesion type: [place] artery [place] vs. transplanted heart: [place] heart Code(s): I25.10 - Atherosclerotic heart disease of [place] coronary artery without angina pectoris (3) CKD (chronic kidney disease) stage 3, GFR 30-59 ml/min Status: Chronic Current Visit: No (4) Chronic CHF Status: Chronic Current Visit: No Qualifiers: Code(s): I50.9 - Heart failure, unspecified (5) Chronic back pain Status: Chronic Current Visit: No Qualifiers: Back pain location: back pain in unspecified location Back pain laterality: unspecified Qualified Code(s): M54.9 - Dorsalgia, unspecified; G89.29 - Other chronic pain Code(s): M54.9 - Dorsalgia, unspecified; G89.29 - Other chronic pain (6) Hyperlipidemia Status: Chronic Current Visit: No Qualifiers: Code(s): E78.5 - Hyperlipidemia, unspecified (7) Hypertension Status: Chronic Current Visit: No Qualifiers: Code(s): I10 - Essential (primary) hypertension (8) Migraine Status: Chronic Current Visit: No Qualifiers: Migraine type: unspecified Status migrainosus presence: without status migrainosus Intractability: not intractable Qualified Code(s): G43.909 - Migraine, unspecified, not intractable, without status migrainosus Code(s): G43.909 - Migraine, unspecified, not intractable, without status migrainosus (9) Morbid obesity Status: Chronic Current Visit: No Code(s): E66.01 - Morbid (severe) obesity due to excess calories (10) 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 Status: Chronic Current Visit: Yes Code(s): L97.912 - Non-pressure chronic ulcer of unspecified part of right lower leg with fat layer exposed Comment: s/p traumatic hematoma (11) Osteoarthritis Status: Chronic Current Visit: No Qualifiers: (12) Sleep apnea Status: Chronic Current Visit: No Qualifiers: Code(s): G47.30 - Sleep apnea, unspecified (13) Type II diabetes mellitus Status: Chronic Current Visit: Yes Code(s): E11.9 - Type 2 diabetes mellitus without complications (14) Wound of right lower extremity Status: Chronic Current Visit: Yes Qualifiers: Encounter type: initial encounter Qualified Code(s): S81.801A - Unspecified open wound, right lower leg, initial encounter Code(s): S81.801A - Unspecified open wound, right lower leg, initial encounter History of Present Illness Chief Complaint: Nonhealing wound to right anterior lower extremity History of Wound: This is a 73-year-old white female who [facility] with a nonhealing wound to the right anterior lower extremity. The wound occurred as a result of trauma resulting from impacting her right lower extremity against her refrigerator. The injury occurred approximately 2 months prior to the patient's initial presentation. The patient's medical history is significant for: Obesity, GERD, HTN, HLD, Chronic CHF Unclear Type, PAF, Anxiety and Depression, Seizure disorder, Diabetes mellitus type II uncontrolled, ERIC, CKD stage III. According the patient, upon initially injuring her right lower extremity, a hematoma formed. She states that the hematoma persisted until a couple of weeks prior to presentation, when she was seen by Dr. Jacques who unroofed the necrotic hematoma. She stated that the ulceration had been open since then and draining a small amount of serosanguineous fluid. Her wound care consisted of rinsing the wound with saline daily. She stated that her diabetes is not well controlled and she does not routinely check her blood sugars. She denied any recent cultures being taken or being on any antibiotics. The patient denied fever, chills, nausea, vomiting, shortness of breath, chest pain or pressure, palpitations, orthopnea, lower extremity edema, syncope or presyncopal episodes. Past Medical History Past Medical History: Chronic Problems 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 (Chronic) s/p traumatic hematoma PVD (peripheral vascular disease) (Chronic) Wound of right lower extremity (Chronic) Migraine (Chronic) Hyperlipidemia (Chronic) Hypertension (Chronic) Benign essential hypertension (Chronic) CAD (coronary artery disease) (Chronic) Chronic CHF (Chronic) Chronic constipation (Chronic) Type II diabetes mellitus (Chronic) Morbid obesity (Chronic) Osteoarthritis (Chronic) Spondylosis (Chronic) History of urinary incontinence (Chronic) Chronic back pain (Chronic) Sleep apnea (Chronic) CKD (chronic kidney disease) stage 3, GFR 30-59 ml/min (Chronic) Surgical History: hysterectomy, - - ECI x2, thyroidectomy for goiter, left lower extremity surgery for bone cancer, pacemaker, hysterectomy. Allergies/Adverse Reactions: Allergies atorvastatin calcium [From Lipitor] Allergy (Verified 11/25/18 19:11) dont remember codeine Allergy (Verified 11/25/18 19:11) Rash iodine Allergy (Verified 11/25/18 19:11) Rash Latex, Natural Rubber Allergy (Verified 11/25/18 19:11) Rash lovastatin Allergy (Verified 11/25/18 19:11) Rash rosuvastatin calcium [From Crestor] Allergy (Verified 11/25/18 19:11) rash\ naproxen [From Naprosyn] Adverse Reaction (Verified 11/25/18 19:11) Upset Stomach pregabalin [From Lyrica] Adverse Reaction (Verified 11/25/18 19:11) Upset Stomach Sulfa (Sulfonamide Antibiotics) Adverse Reaction (Verified 11/25/18 19:11) Upset Stomach Home Medications: Ambulatory Orders Medication Instructions Recorded Insulin Aspart [Novolog Flexpen] 24 units SC TIDCM 03/12/17 Insulin Degludec [Tresiba 76 unit SQ DAILY 10/11/17 Flextouch U-100] Metoprolol Succinate [Toprol Xl] 50 mg PO DAILY 10/11/17 levETIRAcetam tablet [Keppra 500 mg PO BID 10/11/17 tablet] Fluticasone 0.05% [Flonase Nasal 2 sprays NASAL DAILY 04/27/18 [place]] Furosemide [Lasix] 20 mg PO BID 04/27/18 Lisinopril [Zestril] 10 mg PO DAILY 04/27/18 Omeprazole 20 mg PO DAILY 04/27/18 Polyethylene Glycol 3350 [Miralax] 17 gm PO DAILY PRN 04/27/18 Prasugrel HCl 10 mg PO DAILY 06/04/18 Rivaroxaban [Xarelto] 15 mg PO DAILY 06/04/18 Simvastatin [Zocor] 40 mg PO QHS 06/04/18 Acetaminophen [Tylenol] 1,000 mg PO PRN PRN 11/18/18 Cetirizine HCl [Zyrtec] 10 mg PO DAILY PRN 11/18/18 Duloxetine HCl 30 mg PO DAILY 11/18/18 Isosorbide Mononitrate [Isosorbide 3 tab PO DAILY 11/18/18 Mononitrate ER] Ketorolac Tromethamine [Acular] 1 drop OPHTHALMIC 4X/DAY 11/18/18 Lidocaine [Lidoderm Patch] 1 patch TOPICAL DAILY 11/18/18 Sennosides/Docusate Sodium [Senna 2 tab PO DAILY 11/18/18 Plus Tablet] prednisoLONE eye drops (1 mL) 1 drop EACH EYE 4X/DAY 11/18/18 [Pred Forte eye drops (1 mL)] Isosorbide Mononitrate [Imdur] 90 mg PO DAILY tablet 11/19/18 - Family History Maternal - - History of alcoholic cirrhosis Paternal Cancer - Her father had colon cancer. Sibling Cancer - Her sister had ovarian cancer., Hypertension Smoking Status: Former smoker Tobacco Use: Non-smoker Review of Systems Constitutional: Denies: Chills, Fever, Weight Change Eyes: Denies: Pain, Vision Change HEENT: Denies: Difficulty Hearing, Difficulty Swallowing, Sinus Congestion Cardiovascular: Denies: Chest Pain, Palpitations Respiratory: Denies: Cough, Shortness of Breath Gastrointestinal: Denies: Diarrhea, Nausea, Vomiting Genitourinary: Denies: Dysuria, Hematuria Endocrine: Denies: Heat/ Cold Intolerance, Polydipsia, Polyuria Hematologic/ Lymphatic: Denies: Easy Bruising, Easy Bleeding - Physical Exam Vital Signs Temp Pulse Resp BP 96.4 F L 99 16 133/84 H 03/24/19 14:14 03/24/19 14:14 03/24/19 14:14 03/24/19 14:14 General: Alert, Oriented x3, Cooperative, No apparent distress, Well developed, Well nourished HEENT: Atraumatic, PERRLA, EOMI, Normocephalic Oral: Moist Mucosa Neck: No JVD Lungs: Normal air movement Abdomen: Non-Distended, Obese Extremities: No clubbing, No cyanosis, No Calf Tenderness, - - Mild bilateral swelling and edema is noted in the lower extremities bilaterally. No open wound is noted on the right anterior tibial surface. Dimensions are documented elsewhere. There is no sign of infection or cellulitis. There is a small amount of bioburden and a significant amount of retained allograft, consisting of the NuShield which was placed 1 week ago. Skin: No rashes Wound Measurements and Assessment WC - Nurse 1 - General Ulcer Measurement Start: 03/18/19 16:26 Freq: Status: Active Protocol: Activity Type Activity Date Activity User E-Sign Co-Sign Detail Recorded Client Recorded Date Recorded By Document 03/24/19 14:14 [facility] [id number] 03/24/19 14:18 [facility] 03/24/19 14:14 [facility] Nurse 1 [Ulcer Assessment] #1 RLE med -Combined with other wound No -Current Size (cm) - Length 1.3 -Current Size (cm) - Width 0.9 -Current Size (cm) - Depth 0.1 -Total Square Cm 1.17 -Photo Taken No -Epithelialization None Present -Tunneling No -Undermining/Tunneling No -Circular Undermining No -Exudate Amt Small -Exudate Type Serous -Wound Margin Distinct, Outline Attached -Granulation Amt None Present (0 %) -Slough/Fibrin Yes -Necrosis Amt Large (67-100%) -Necrotic Tissue Type Adherent Slough -Texture (Zamzam-wound Skin Appearance) Assessed Scarring -Moisture (Zamzam-wound Skin Appearance Assessed ) -Color (Zamzam-wound Skin Appearance) Assessed -Temperature (Zamzam-wound Skin No Abnormality Appearance) (Pt Warm) -Tenderness on Palpation (Zamzam-wound No Skin Appearance) -Ulcer Cleansing Wound Cleanser -Foul Odor after Cleansing No -Anesthetic Used 5% Lidocaine Gel [Edema Assessment] -Lower Limb Edema Present Yes WC - Nurse 2 - General Ulcer CM Notes Start: 03/18/19 16:26 Freq: Status: Active Protocol: Activity Type Activity Date Activity User E-Sign Co-Sign Detail Recorded Client Recorded Date Recorded By Document 03/24/19 14:53 AN [id number] 03/24/19 15:06 AN 03/24/19 14:53 W[facility] Center Nurse 2 [Procedure/Treatment] #1 RLE med -Time 14:54 -Correct Patient Yes -Correct Side, Site, Position Yes -Correct Procedure Yes -Procedure Performed Yes -Type of Procedure Debridement -Clinical Debridement Subcutaneous -Post Debridement Size (cm) - Length 0.9 -Post Debridement Size (cm) - Width 1.0 -Post Debridement Size (cm) - Depth 0.2 -Total Square Cm 0.90 -Wound/Ulcer Outcome Not Healed -Ulcer Cleansing Rinsed/ Irrigated with Saline -Foul Odor after Cleansing No -Bioengineered Tissue Yes -Type of bioengineered Tissue NU-SHIELD -Expiration Date 02/15/24 -Product Lot Number [id number] -Percent Used 100 -Saline Lot Number [id number] -Topical Lidocaine (%) 4 -Bleeding Controlled with Pressure -Offloading No -Treatment Response Procedure Tolerated Well [See Physician Procedure note for Specifics] Pain Scale: 0-10 Numeric [Pain] -Is Patient Pain Free? Yes Neurological: Cranial nerves II-XII grossly intact, Neuro grossly intact Psych/Mental Status: Normal Affect, Appropriate, Alert and oriented to time, place, person, mood and affect Debridement Note Post-Debridement Measurements/Treatment WC - Nurse 2 - General Ulcer CM Notes Start: 03/18/19 16:26 Freq: Status: Active Protocol: Activity Type Activity Date Activity User E-Sign Co-Sign Detail Recorded Client Recorded Date Recorded By Document 03/18/19 16:49 AN [id number] 03/18/19 16:53 AN Document 03/24/19 14:53 AN [id number] 03/24/19 15:06 AN 03/18/19 03/24/19 16:49 14:53 Wound Center Nurse 2 #1 RLE med -Time 16:53 14:54 -Correct Patient Yes Yes -Correct Side, Site, Position Yes Yes -Correct Procedure Yes Yes -Procedure Performed Yes Yes -Type of Procedure Debridement Debridement -Clinical Debridement Subcutaneous Subcutaneous -Post Debridement Size (cm) - Length 0.9 0.9 -Post Debridement Size (cm) - Width 1.2 1.0 -Post Debridement Size (cm) - Depth 0.2 0.2 -Total Square Cm 1.08 0.90 -Wound/Ulcer Outcome Not Healed Not Healed -Ulcer Cleansing Rinsed/ Rinsed/ Irrigated with Irrigated with Saline Saline -Foul Odor after Cleansing No No -Bioengineered Tissue Yes Yes -Type of bioengineered Tissue NU-SHIELD NU-SHIELD -Expiration Date 02/15/24 -Product Lot Number [id number] - [id number] -Percent Used 100 -Saline Lot Number [id number] -Topical Lidocaine (%) 4 -Bleeding Controlled with Pressure -Offloading No -Treatment Response Procedure Tolerated Well Pain Scale: 0-10 Numeric Is Patient Pain Free? Yes Laterality: Right - Anterior tibial surface Type of Debridement: Excisional debridement Anesthesia Used: 5% Lidocaine Gel Depth: Down to and including healthy tissue, in the subcutaneous layer Percentage of wound debrided: 100 Instrument Used: 5mm curette Tissue Removed: Bioburden and retained allograft Severity: Fat Layer Exposed Amount of bleeding with debridement: Mild Bleeding Controlled with: Compression and gauze Patient tolerated procedure well Debridement was performed in standard fashion. A large amount of retained allograft (NuShield) was present, and was removed. This revealed a very healthy appearing wound bed, generally pink and healthy in appearance, with evidence of healthy granulation tissue. There was also evidence of peripheral epithelialization. Following the standard excisional debridement, a NuShield allograft was applied. A 16 mm disc allograft was selected. Upon removal from its sterile packaging, allograft was placed, over which was placed wound veil, a gauze bolster, and gauze, which was then anchored in place securely using Steri-Strips. The entire procedure was well-tolerated by the patient. Assessment/Plan Active Problems 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 (Chronic) s/p traumatic hematoma Wound of right lower extremity (Chronic) Type II diabetes mellitus (Chronic) Assessment: Nonhealing wound, status post traumatic hematoma to right anterior lower extremity. The patient appears to be making good progress. Today's allograft application represents the fifth such application of the allograft product. Plan: The patient was seen and examined at the [facility] today and was updated on the plan of care. An excisional debridement was performed today. The patient tolerated the procedure well. A NuShield allograft was placed, representing the fifth such application. The procedure was well-tolerated. The right lower extremity was then wrapped with a 2 layer 3M compression wrap, which is to remain in place until the patient returns in 1 week for ree valuation. Patient's recent arterial studies reveal no evidence of significant occlusive disease. The patient has been encouraged to elevate her lower extremities as much as possible, to minimize swelling and edema in her lower extremities. The compression to the right lower extremity will also aid in this goal. Patient has been encouraged to optimize her nutritional intake. She has also been encouraged to optimize her glycemic control. Patient educated on the importance of diet on wound healing and instructed to increase protein and vitamin C intake. A referral was previously made to nutrition services for her poorly controlled diabetes. Patient will follow up at [facility] in one week or sooner if needed. This note was generated with [employer] dictation software. It may contain incorrect words, spelling, and punctuation that were not noted in checking the note before signing.
[2019-03-30 10:30] VITALS: BP 156/86; PULSE 97; RESP 16; TEMP 35.6; BMI 35.8
--- NOTE | 2019-03-30 11:42 | HP.PCM_ITS ---
(1) Benign essential hypertension Status: Chronic Current Visit: No Code(s): I10 - Essential (primary) hypertension (2) CAD (coronary artery disease) Status: Chronic Current Visit: No Qualifiers: Coronary Disease-Associated Artery/Lesion type: [place] artery [place] vs. transplanted heart: [place] heart Code(s): I25.10 - Atherosclerotic heart disease of [place] coronary artery without angina pectoris (3) CKD (chronic kidney disease) stage 3, GFR 30-59 ml/min Status: Chronic Current Visit: No (4) Chronic CHF Status: Chronic Current Visit: No Qualifiers: Code(s): I50.9 - Heart failure, unspecified (5) Chronic back pain Status: Chronic Current Visit: No Qualifiers: Back pain location: back pain in unspecified location Back pain laterality: unspecified Qualified Code(s): M54.9 - Dorsalgia, unspecified; G89.29 - Other chronic pain Code(s): M54.9 - Dorsalgia, unspecified; G89.29 - Other chronic pain (6) Hyperlipidemia Status: Chronic Current Visit: No Qualifiers: Code(s): E78.5 - Hyperlipidemia, unspecified (7) Hypertension Status: Chronic Current Visit: No Qualifiers: Code(s): I10 - Essential (primary) hypertension (8) Migraine Status: Chronic Current Visit: No Qualifiers: Migraine type: unspecified Status migrainosus presence: without status migrainosus Intractability: not intractable Qualified Code(s): G43.909 - Migraine, unspecified, not intractable, without status migrainosus Code(s): G43.909 - Migraine, unspecified, not intractable, without status migrainosus (9) Morbid obesity Status: Chronic Current Visit: No Code(s): E66.01 - Morbid (severe) obesity due to excess calories (10) 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 Status: Chronic Current Visit: Yes Code(s): L97.912 - Non-pressure chronic ulcer of unspecified part of right lower leg with fat layer exposed Comment: s/p traumatic hematoma (11) Osteoarthritis Status: Chronic Current Visit: No Qualifiers: (12) Sleep apnea Status: Chronic Current Visit: No Qualifiers: Code(s): G47.30 - Sleep apnea, unspecified (13) Type II diabetes mellitus Status: Chronic Current Visit: Yes Code(s): E11.9 - Type 2 diabetes mellitus without complications (14) Wound of right lower extremity Status: Chronic Current Visit: Yes Qualifiers: Encounter type: initial encounter Qualified Code(s): S81.801A - Unspecified open wound, right lower leg, initial encounter Code(s): S81.801A - Unspecified open wound, right lower leg, initial encounter History of Present Illness Date of Service: 03/30/19 Chief Complaint: Nonhealing wound to right anterior lower extremity History of Wound: This is a 73-year-old white female who [facility] with a nonhealing wound to the right anterior lower extremity. The wound occurred as a result of trauma resulting from impacting her right lower extremity against her refrigerator. The injury occurred approximately 2 months prior to the patient's initial presentation. The patient's medical history is significant for: Obesity, GERD, HTN, HLD, Chronic CHF Unclear Type, PAF, Anxiety and Depression, Seizure disorder, Diabetes mellitus type II uncontrolled, ERIC, CKD stage III. According the patient, upon initially injuring her right lower extremity, a hematoma formed. She states that the hematoma persisted until a couple of weeks prior to presentation, when she was seen by Dr. Jacques who unroofed the necrotic hematoma. She stated that the ulceration had been open since then and draining a small amount of serosanguineous fluid. Her wound care consisted of rinsing the wound with saline daily. She stated that her diabetes is not well controlled and she does not routinely check her blood sugars. She denied any recent cultures being taken or being on any antibiotics. The patient denied fever, chills, nausea, vomiting, shortness of breath, chest pain or pressure, palpitations, orthopnea, lower extremity edema, syncope or presyncopal episodes. Past Medical History Past Medical History: Chronic Problems 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 (Chronic) s/p traumatic hematoma PVD (peripheral vascular disease) (Chronic) Wound of right lower extremity (Chronic) Migraine (Chronic) Hyperlipidemia (Chronic) Hypertension (Chronic) Benign essential hypertension (Chronic) CAD (coronary artery disease) (Chronic) Chronic CHF (Chronic) Chronic constipation (Chronic) Type II diabetes mellitus (Chronic) Morbid obesity (Chronic) Osteoarthritis (Chronic) Spondylosis (Chronic) History of urinary incontinence (Chronic) Chronic back pain (Chronic) Sleep apnea (Chronic) CKD (chronic kidney disease) stage 3, GFR 30-59 ml/min (Chronic) Surgical History: hysterectomy, - - ECI x2, thyroidectomy for goiter, left lower extremity surgery for bone cancer, pacemaker, hysterectomy. Allergies/Adverse Reactions: Allergies atorvastatin calcium [From Lipitor] Allergy (Verified 11/25/18 19:11) dont remember codeine Allergy (Verified 11/25/18 19:11) Rash iodine Allergy (Verified 11/25/18 19:11) Rash Latex, Natural Rubber Allergy (Verified 11/25/18 19:11) Rash lovastatin Allergy (Verified 11/25/18 19:11) Rash rosuvastatin calcium [From Crestor] Allergy (Verified 11/25/18 19:11) rash\ naproxen [From Naprosyn] Adverse Reaction (Verified 11/25/18 19:11) Upset Stomach pregabalin [From Lyrica] Adverse Reaction (Verified 11/25/18 19:11) Upset Stomach Sulfa (Sulfonamide Antibiotics) Adverse Reaction (Verified 11/25/18 19:11) Upset Stomach Home Medications: Ambulatory Orders Medication Instructions Recorded Insulin Aspart [Novolog Flexpen] 24 units SC TIDCM 03/12/17 Insulin Degludec [Tresiba 76 unit SQ DAILY 10/11/17 Flextouch U-100] Metoprolol Succinate [Toprol Xl] 50 mg PO DAILY 10/11/17 levETIRAcetam tablet [Keppra 500 mg PO BID 10/11/17 tablet] Fluticasone 0.05% [Flonase Nasal 2 sprays NASAL DAILY 04/27/18 [place]] Furosemide [Lasix] 20 mg PO BID 04/27/18 Lisinopril [Zestril] 10 mg PO DAILY 04/27/18 Omeprazole 20 mg PO DAILY 04/27/18 Polyethylene Glycol 3350 [Miralax] 17 gm PO DAILY PRN 04/27/18 Prasugrel HCl 10 mg PO DAILY 06/04/18 Rivaroxaban [Xarelto] 15 mg PO DAILY 06/04/18 Simvastatin [Zocor] 40 mg PO QHS 06/04/18 Acetaminophen [Tylenol] 1,000 mg PO PRN PRN 11/18/18 Cetirizine HCl [Zyrtec] 10 mg PO DAILY PRN 11/18/18 Duloxetine HCl 30 mg PO DAILY 11/18/18 Isosorbide Mononitrate [Isosorbide 3 tab PO DAILY 11/18/18 Mononitrate ER] Ketorolac Tromethamine [Acular] 1 drop OPHTHALMIC 4X/DAY 11/18/18 Lidocaine [Lidoderm Patch] 1 patch TOPICAL DAILY 11/18/18 Sennosides/Docusate Sodium [Senna 2 tab PO DAILY 11/18/18 Plus Tablet] prednisoLONE eye drops (1 mL) 1 drop EACH EYE 4X/DAY 11/18/18 [Pred Forte eye drops (1 mL)] Isosorbide Mononitrate [Imdur] 90 mg PO DAILY tablet 11/19/18 - Family History Maternal - - History of alcoholic cirrhosis Paternal Cancer - Her father had colon cancer. Sibling Cancer - Her sister had ovarian cancer., Hypertension Smoking Status: Former smoker Tobacco Use: Non-smoker Review of Systems Constitutional: Denies: Chills, Fever, Weight Change Eyes: Denies: Pain, Vision Change HEENT: Denies: Difficulty Hearing, Difficulty Swallowing, Sinus Congestion Cardiovascular: Denies: Chest Pain, Palpitations Respiratory: Denies: Cough, Shortness of Breath Gastrointestinal: Denies: Diarrhea, Nausea, Vomiting Genitourinary: Denies: Dysuria, Hematuria Endocrine: Denies: Heat/ Cold Intolerance, Polydipsia, Polyuria Hematologic/ Lymphatic: Denies: Easy Bruising, Easy Bleeding - Physical Exam Vital Signs Temp Pulse Resp BP 96.1 F L 97 16 156/86 H 03/30/19 10:30 03/30/19 10:30 03/30/19 10:30 03/30/19 10:30 General: Alert, Oriented x3, Cooperative, No apparent distress, Well developed, Well nourished HEENT: Atraumatic, PERRLA, EOMI, Normocephalic Oral: Moist Mucosa Neck: No JVD Lungs: Normal air movement Abdomen: Non-Distended Extremities: No clubbing, No cyanosis, No Calf Tenderness, - - The patient's wound on the right anterior tibial surface is markedly smaller in size. Dimensions are documented elsewhere. There is no sign of infection or cellulitis. The base of the wound is generally pink and healthy in appearance, with evidence of active granulation tissue. There is also evidence of peripheral epithelialization. There is a small amount of bioburden. Skin: No rashes Wound Measurements and Assessment WC - Nurse 1 - General Ulcer Measurement Start: 03/18/19 16:26 Freq: Status: Active Protocol: Activity Type Activity Date Activity User E-Sign Co-Sign Detail Recorded Client Recorded Date Recorded By Document 03/30/19 10:30 [id number] 03/30/19 10:46 03/30/19 10:30 Wound Center Nurse 1 [Ulcer Assessment] #1 RLE med -Combined with other wound No -Current Size (cm) - Length 0.5 -Current Size (cm) - Width 0.6 -Current Size (cm) - Depth 0.2 -Total Square Cm 0.30 -Photo Taken Yes -Epithelialization Medium 34-66% -Tunneling No -Undermining/Tunneling No -Circular Undermining No -Exudate Amt Small -Exudate Type Serosanguineous -Wound Margin Flat & Intact -Granulation Amt Medium (34-66%) -Granulation Quality Red -Slough/Fibrin Yes -Necrosis Amt Small (1-33%) -Necrotic Tissue Type Adherent Slough -Structure Exposed N/A -Texture (Zamzam-wound Skin Appearance) Assessed, Localized Edema -Moisture (Zamzam-wound Skin Appearance Assessed,Dry/ ) Scaly -Color (Zamzam-wound Skin Appearance) Assessed -Temperature (Zamzam-wound Skin No Abnormality Appearance) (Pt Warm) -Tenderness on Palpation (Zamzam-wound No Skin Appearance) -Ulcer Cleansing Wound Cleanser -Foul Odor after Cleansing No -Anesthetic Used 4% Lidocaine Solution [Edema Assessment] -Lower Limb Edema Present Yes -Right Calf (cm) 38 -Right Ankle (cm) 24.5 WC - Nurse 2 - General Ulcer CM Notes Start: 03/18/19 16:26 Freq: Status: Active Protocol: Activity Type Activity Date Activity User E-Sign Co-Sign Detail Recorded Client Recorded Date Recorded By Document 03/30/19 11:37 AN [id number] 03/30/19 11:40 AN 03/30/19 11:37 Wound Center Nurse 2 [Procedure/Treatment] #1 RLE med -Time 11:37 -Correct Patient Yes -Correct Side, Site, Position Yes -Correct Procedure Yes -Procedure Performed Yes -Type of Procedure Debridement -Clinical Debridement Subcutaneous -Post Debridement Size (cm) - Length 0.6 -Post Debridement Size (cm) - Width 0.7 -Post Debridement Size (cm) - Depth 0.2 -Total Square Cm 0.42 -Wound/Ulcer Outcome Not Healed -Ulcer Cleansing Rinsed/ Irrigated with Saline -Foul Odor after Cleansing No -Bioengineered Tissue No -Bleeding Controlled with Pressure -Offloading No -Type of Offloading Surgical Shoe [See Physician Procedure note for Specifics] Pain Scale: 0-10 Numeric [Pain] -Is Patient Pain Free? Yes Neurological: Cranial nerves II-XII grossly intact, Neuro grossly intact Psych/Mental Status: Normal Affect, Appropriate, Alert and oriented to time, place, person, mood and affect Debridement Note Post-Debridement Measurements/Treatment WC - Nurse 2 - General Ulcer CM Notes Start: 03/18/19 16:26 Freq: Status: Active Protocol: Activity Type Activity Date Activity User E-Sign Co-Sign Detail Recorded Client Recorded Date Recorded By Document 03/18/19 16:49 AN [id number] 03/18/19 16:53 AN Document 03/24/19 14:53 AN [id number] 03/24/19 15:06 AN Document 03/30/19 11:37 AN [id number] 03/30/19 11:40 AN 03/18/19 03/24/19 03/30/19 16:49 14:53 11:37 Wound Center Nurse 2 #1 RLE med -Time 16:53 14:54 11:37 -Correct Patient Yes Yes Yes -Correct Side, Site, Position Yes Yes Yes -Correct Procedure Yes Yes Yes -Procedure Performed Yes Yes Yes -Type of Procedure Debridement Debridement Debridement -Clinical Debridement Subcutaneous Subcutaneous Subcutaneous -Post Debridement Size (cm) - Length 0.9 0.9 0.6 -Post Debridement Size (cm) - Width 1.2 1.0 0.7 -Post Debridement Size (cm) - Depth 0.2 0.2 0.2 -Total Square Cm 1.08 0.90 0.42 -Wound/Ulcer Outcome Not Healed Not Healed Not Healed -Ulcer Cleansing Rinsed/ Rinsed/ Rinsed/ Irrigated with Irrigated with Irrigated with Saline Saline Saline -Foul Odor after Cleansing No No No -Bioengineered Tissue Yes Yes No -Type of bioengineered Tissue NU-SHIELD NU-SHIELD -Expiration Date 02/15/24 -Product Lot Number [id number] -Percent Used 100 -Saline Lot Number [id number] -Topical Lidocaine (%) 4 -Bleeding Controlled with Pressure Pressure -Offloading No No -Type of Offloading Surgical Shoe -Treatment Response Procedure Tolerated Well Pain Scale: 0-10 Numeric Is Patient Pain Free? Yes Yes Laterality: Right - Anterior tibial surface Type of Debridement: Excisional debridement Anesthesia Used: 5% Lidocaine Gel Depth: Down to and including healthy tissue, in the subcutaneous layer Percentage of wound debrided: 100 Instrument Used: 5mm curette Severity: Fat Layer Exposed Amount of bleeding with debridement: Mild Bleeding Controlled with: Compression and gauze Patient tolerated procedure well Assessment/Plan Active Problems 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 (Chronic) s/p traumatic hematoma Wound of right lower extremity (Chronic) Type II diabetes mellitus (Chronic) Assessment: Nonhealing wound, status post traumatic hematoma to right anterior lower extremity. The patient appears to be making good progress. NuShield allografts have been placed in recent weeks. However, an allograft is not available today for application. Plan: The patient was seen and examined at the [facility] today and was updated on the plan of care. An excisional debridement was performed today. The patient tolerated the procedure well. Because a NuShield allograft is not available, we are to implement the use of Mandy, which will be applied topically on a daily basis. The patient is to return in 1 week for reassessment. It is anticipated that she will return to the care of her primary provider, Kuldeep Encarnacion. The patient returns in 1 week for reevaluation. Patient's recent arterial studies reveal no evidence of significant occlusive disease. The patient has been encouraged to elevate her lower extremities as much as possible, to minimize swelling and edema in her lower extremities. Continued compression to the right lower extremity will also aid in this goal. Patient has been encouraged to optimize her nutritional intake. She has also been encouraged to optimize her glycemic control. Patient educated on the i mportance of diet on wound healing and instructed to increase protein and vitamin C intake. A referral was previously made to nutrition services for her poorly controlled diabetes. [facility] will [facility] in one week or sooner if needed. This note was generated with [employer] software. It may contain incorrect words, spelling, and punctuation that were not noted in checking the note before signing.
[2019-04-08 16:28] VITALS: BP 131/80; PULSE 116; RESP 18; TEMP 36.1; BMI 35.8
--- NOTE | 2019-04-08 20:38 | PCM.WC.PN ---
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 Status: Chronic Code(s): L97.912 - Non-pressure chronic ulcer of unspecified part of right lower leg with fat layer exposed Comment: s/p traumatic hematoma (2) Decreased dorsalis pedis pulse Status: Acute Code(s): R09.89 - Other specified symptoms and signs involving the circulatory and respiratory systems (3) Hyperlipidemia Status: Chronic Qualifiers: Code(s): E78.5 - Hyperlipidemia, unspecified (4) Hypertension Status: Chronic Qualifiers: Code(s): I10 - Essential (primary) hypertension (5) Morbid obesity Status: Chronic Code(s): E66.01 - Morbid (severe) obesity due to excess calories (6) PVD (peripheral vascular disease) Status: Chronic Code(s): I73.9 - Peripheral vascular disease, unspecified Type of Wound Date of Service: 04/08/19 Chief Complaint: Nonhealing wound to right anterior lower extremity History of Wound: This is a 73-year-old white female who [facility] with a nonhealing wound to the right anterior lower extremity. The wound occurred as a result of trauma resulting from impacting her right lower extremity against her refrigerator. The injury occurred approximately 2 months prior to the patient's initial presentation. The patient's medical history is significant for: Obesity, GERD, HTN, HLD, Chronic CHF Unclear Type, PAF, Anxiety and Depression, Seizure disorder, Diabetes mellitus type II uncontrolled, ERIC, CKD stage III. According the patient, upon initially injuring her right lower extremity, a hematoma formed. She states that the hematoma persisted until a couple of weeks prior to presentation, when she was seen by Dr. Jacques who unroofed the necrotic hematoma. She stated that the ulceration had been open since then and draining a small amount of serosanguineous fluid. Her wound care consisted of rinsing the wound with saline daily. She stated that her diabetes is not well controlled and she does not routinely check her blood sugars. She denied any recent cultures being taken or being on any antibiotics. The patient denied fever, chills, nausea, vomiting, shortness of breath, chest pain or pressure, palpitations, orthopnea, lower extremity edema, syncope or presyncopal episodes. Progress of Wound: Post hematoma ulceration of her right lower extremity wound bed is moist and pink without any signs of infection at this time. Depth improving, pt tolerated nushield and 3 m wrap well. The patient otherwise denies any fever, chills, nausea, vomiting, shortness of breath, chest pain or pressure, palpitations, orthopnea, lower extremity edema, syncope or presyncopal episodes. - Physical Exam Vital Signs Temp Pulse Resp BP 97.0 F L 116 H 18 131/80 H 04/08/19 16:28 04/08/19 16:28 04/08/19 16:28 04/08/19 16:28 General: Alert, Oriented x3, Cooperative, No apparent distress HEENT: Atraumatic Oral: Moist Mucosa Lungs: Clear to auscultation, Normal air movement Cardiovascular: Regular rate Abdomen: Soft, Non Tender, Obese Extremities: No clubbing, No cyanosis, No edema, Peripheral Pulses Normal Skin: Ulcer/ Wound - Ulceration to right anterior lower extremity with adherent slough, no signs of infection at this time, no redness streaking or warmth or purulent drainage Wound Measurements and Assessment WC - Nurse 1 - General Ulcer Measurement Start: 03/18/19 16:26 Freq: Status: Active Protocol: Activity Type Activity Date Activity User E-Sign Co-Sign Detail Recorded Client Recorded Date Recorded By Document 04/08/19 16:28 NV [id number] 04/08/19 16:30 NV 04/08/19 16:28 Wound Center Nurse 1 [Ulcer Assessment] #1 RLE med -Current Size (cm) - Length 0.6 -Current Size (cm) - Width 0.5 -Current Size (cm) - Depth 0.1 -Total Square Cm 0.30 -Exudate Amt None Present -Granulation Amt None Present (0 %) -Slough/Fibrin Yes -Necrosis Amt Large (67-100%) -Necrotic Tissue Type Eschar -Texture (Zamzam-wound Skin Appearance) Assessed, Localized Edema -Moisture (Zamzam-wound Skin Appearance Assessed ) -Color (Zamzam-wound Skin Appearance) Assessed -Temperature (Zamzam-wound Skin No Abnormality Appearance) (Pt Warm) -Tenderness on Palpation (Zamzam-wound No Skin Appearance) -Ulcer Cleansing Rinsed/ Irrigated with Saline -Anesthetic Used 5% Lidocaine Gel [Edema Assessment] -Right Calf (cm) 39.2 -Right Ankle (cm) 25.0 WC - Nurse 2 - General Ulcer CM Notes Start: 03/18/19 16:26 Freq: Status: Active Protocol: Activity Type Activity Date Activity User E-Sign Co-Sign Detail Recorded Client Recorded Date Recorded By Document 04/08/19 17:09 AN [id number] 04/08/19 17:10 AN 04/08/19 17:09 Wound Center Nurse 2 [Procedure/Treatment] #1 RLE med -Time 17:09 -Correct Patient Yes -Correct Side, Site, Position Yes -Correct Procedure Yes -Procedure Performed Yes -Type of Procedure Debridement -Clinical Debridement Subcutaneous -Post Debridement Size (cm) - Length 0.4 -Post Debridement Size (cm) - Width 0.5 -Post Debridement Size (cm) - Depth 0.1 -Total Square Cm 0.20 -Wound/Ulcer Outcome Not Healed -Bioengineered Tissue Yes -Type of bioengineered Tissue NU-SHIELD -Bleeding Controlled with Pressure -Offloading No -Treatment Response Procedure Tolerated Well [See Physician Procedure note for Specifics] Pain Scale: 0-10 Numeric [Pain] -Is Patient Pain Free? Yes Neurological: Neuro grossly intact Psych/Mental Status: Normal Affect, Appropriate, Alert and oriented to time, place, person, mood and affect Debridement Note Post-Debridement Measurements/Treatment WC - Nurse 2 - General Ulcer CM Notes Start: 03/18/19 16:26 Freq: Status: Active Protocol: Activity Type Activity Date Activity User E-Sign Co-Sign Detail Recorded Client Recorded Date Recorded By Document 03/18/19 16:49 AN [id number] 03/18/19 16:53 AN Document 03/24/19 14:53 AN [id number] 03/24/19 15:06 AN Document 03/30/19 11:37 AN [id number] 03/30/19 11:40 AN Document 04/08/19 17:09 AN [id number] 04/08/19 17:10 AN 03/18/19 03/24/19 03/30/19 16:49 14:53 11:37 Wound Center Nurse 2 #1 RLE med -Time 16:53 14:54 11:37 -Correct Patient Yes Yes Yes -Correct Side, Site, Position Yes Yes Yes -Correct Procedure Yes Yes Yes -Procedure Performed Yes Yes Yes -Type of Procedure Debridement Debridement Debridement -Clinical Debridement Subcutaneous Subcutaneous Subcutaneous -Post Debridement Size (cm) - Length 0.9 0.9 0.6 -Post Debridement Size (cm) - Width 1.2 1.0 0.7 -Post Debridement Size (cm) - Depth 0.2 0.2 0.2 -Total Square Cm 1.08 0.90 0.42 -Wound/Ulcer Outcome Not Healed Not Healed Not Healed -Ulcer Cleansing Rinsed/ Rinsed/ Rinsed/ Irrigated with Irrigated with Irrigated with Saline Saline Saline -Foul Odor after Cleansing No No No -Bioengineered Tissue Yes Yes No -Type of bioengineered Tissue NU-SHIELD SUSANA-SHIELD -Expiration Date 02/15/24 -Product Lot Number [id number] - [id number] -Percent Used 100 -Saline Lot Number [id number] -Topical Lidocaine (%) 4 -Bleeding Controlled with Pressure Pressure -Offloading No No -Type of Offloading Surgical Shoe -Treatment Response Procedure Tolerated Well Pain Scale: 0-10 Numeric Is Patient Pain Free? Yes Yes 04/08/19 17:09 Wound Center Nurse 2 #1 RLE med -Time 17:09 -Correct Patient Yes -Correct Side, Site, Position Yes -Correct Procedure Yes -Procedure Performed Yes -Type of Procedure Debridement -Clinical Debridement Subcutaneous -Post Debridement Size (cm) - Length 0.4 -Post Debridement Size (cm) - Width 0.5 -Post Debridement Size (cm) - Depth 0.1 -Total Square Cm 0.20 -Wound/Ulcer Outcome Not Healed -Ulcer Cleansing -Foul Odor after Cleansing -Bioengineered Tissue Yes -Type of bioengineered Tissue NU-SHIELD -Expiration Date -Product Lot Number -Percent Used -Saline Lot Number -Topical Lidocaine (%) -Bleeding Controlled with Pressure -Offloading No -Type of Offloading -Treatment Response Procedure Tolerated Well Pain Scale: 0-10 Numeric Is Patient Pain Free? Yes Wound debrided: Right anterior lower extremity ulcer Laterality: Right Type of Debridement: Excisional debridement Anesthesia Used: 5% Lidocaine Gel Depth: in the subcutaneous layer Percentage of wound debrided: 100 Instrument Used: 5mm curette Tissue Removed: Slough and devitalized tissue Severity: Fat Layer Exposed Amount of bleeding with debridement: Mild Bleeding Controlled with: Pressure Patient tolerated procedure well Assessment/Plan Assessment: Nonhealing wound, status post traumatic hematoma to right anterior lower extremity. The patient appears to be making good progress. Plan: The patient was seen and examined at the [facility] today and was updated on the plan of care. An excisional debridement was performed today. The patient tolerated the procedure well. Nushield #6 was applied today with a thin layer of hydrogel over top and wound veil and secured with Steri-Strips, 3M compression wrap over top. The patient is to return in 1 week for reassessment. Patient's recent arterial studies reveal no evidence of significant occlusive disease. The patient has been encouraged to elevate her lower extremities as much as possible, to minimize swelling and edema in her lower extremities. Patient has been encouraged to optimize her nutritional intake. She has also been encouraged to optimize her glycemic control. Patient educated on the importance of diet on wound healing and instructed to increase protein and vitamin C intake. A referral was previously made to nutrition services for her poorly controlled diabetes. Patient will follow up at [facility] in one week or sooner if needed. This note was generated with [email or web address] dictation software. It may contain incorrect words, spelling, and punctuation that were not noted in checking the note before signing. Code Visit [id number]: 28668 Skin sub graft trnk/arm/leg
[2019-04-13 15:26] LABS: Bedside Glucose 281 mg/dL (70-110)
== END 2019-04-11 23:59 ==
LOC: WC 10:15
PROVIDERS: Family Provider Internal Medicine; PCP Internal Medicine; Referring Provider Nurse Practitioner Family; Visit Provider Nurse Practitioner Family
DX: E11.622 Type 2 diabetes mellitus with other skin ulcer (principal); L97.812 Non-pressure chronic ulcer of other part of right lower leg with fat layer exposed; E78.5 Hyperlipidemia, unspecified; E66.01 Morbid (severe) obesity due to excess calories; Z71.3 Dietary counseling and surveillance; E11.51 Type 2 diabetes mellitus with diabetic peripheral angiopathy without gangrene; K21.9 Gastro-esophageal reflux disease without esophagitis; I13.0 Hypertensive heart and chronic kidney disease with heart failure and stage 1 through stage 4 chronic kidney disease, or unspecified chronic kidney disease; N18.3 Chronic kidney disease, stage 3 (moderate); E11.22 Type 2 diabetes mellitus with diabetic chronic kidney disease; E11.65 Type 2 diabetes mellitus with hyperglycemia; I50.9 Heart failure, unspecified; I48.0 Paroxysmal atrial fibrillation; I25.10 Atherosclerotic heart disease of native coronary artery without angina pectoris; M19.90 Unspecified osteoarthritis, unspecified site; G47.30 Sleep apnea, unspecified; S80.11XS Contusion of right lower leg, sequela; X58.XXXS Exposure to other specified factors, sequela
CPT/HCPCS: 11042; 15271; 29581; 82962; Q4160

== ENCOUNTER 2019-04-23 15:15 | Outpatient (RCR) | payer MEDICARE, SELFPAY ==
[2019-04-12 00:46] VITALS: BP 131/80; PULSE 116; RESP 18; TEMP 36.1
[2019-04-16 15:46] VITALS: BP 121/71; PULSE 99; RESP 18; TEMP 35.6; BMI 35.8
--- NOTE | 2019-04-16 18:59 | HP.PCM_ITS ---
History of Present Illness Date of Service: 04/16/19 Chief Complaint: Nonhealing wound to right anterior lower extremity History of Wound: This is a 73-year-old white female who [facility] with a nonhealing wound to the right anterior lower extremity. The wound occurred as a result of trauma resulting from impacting her right lower extremity against her refrigerator. The injury occurred approximately 5 months ago. She has been being treated here by Kuldeep Encarncaion CNP who has applied Purapply and recently Nushield to her wound with significant improvement. The patient's medical history is significant for: Obesity, GERD, HTN, HLD, Chronic CHF Unclear Type, PAF, Anxiety and Depression, Seizure disorder, Diabetes mellitus type II uncontrolled, ERIC, CKD stage III. According the patient, upon initially injuring her right lower extremity, a hematoma formed. She states that the hematoma persisted until a couple of weeks prior to presentation, when she was seen by Dr. Jacques who unroofed the necrotic hematoma. She stated that the ulceration had been open since then and draining a small amount of serosanguineous fluid. Her wound care consisted of rinsing the wound with saline daily initially. She stated that her diabetes is not well controlled and she does not routinely check her blood sugars. She denied any recent cultures being taken or being on any antibiotics. The patient denied fever, chills, nausea, vomiting, shortness of breath, chest pain or pressure, palpitations, orthopnea, lower extremity edema, syncope or presyncopal episodes. Past Medical History Past Medical History: Chronic Problems 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 (Chronic) s/p traumatic hematoma PVD (peripheral vascular disease) (Chronic) Wound of right lower extremity (Chronic) Migraine (Chronic) Hyperlipidemia (Chronic) Hypertension (Chronic) Benign essential hypertension (Chronic) CAD (coronary artery disease) (Chronic) Chronic CHF (Chronic) Chronic constipation (Chronic) Type II diabetes mellitus (Chronic) Morbid obesity (Chronic) Osteoarthritis (Chronic) Spondylosis (Chronic) History of urinary incontinence (Chronic) Chronic back pain (Chronic) Sleep apnea (Chronic) CKD (chronic kidney disease) stage 3, GFR 30-59 ml/min (Chronic) Surgical History: hysterectomy, - - ECI x2, thyroidectomy for goiter, left lower extremity surgery for bone cancer, pacemaker, hysterectomy. Allergies/Adverse Reactions: Allergies atorvastatin calcium [From Lipitor] Allergy (Verified 11/25/18 19:11) dont remember codeine Allergy (Verified 11/25/18 19:11) Rash iodine Allergy (Verified 11/25/18 19:11) Rash Latex, Natural Rubber Allergy (Verified 11/25/18 19:11) Rash lovastatin Allergy (Verified 11/25/18 19:11) Rash rosuvastatin calcium [From Crestor] Allergy (Verified 11/25/18 19:11) rash\ naproxen [From Naprosyn] Adverse Reaction (Verified 11/25/18 19:11) Upset Stomach pregabalin [From Lyrica] Adverse Reaction (Verified 11/25/18 19:11) Upset Stomach Sulfa (Sulfonamide Antibiotics) Adverse Reaction (Verified 11/25/18 19:11) Upset Stomach Home Medications: Ambulatory Orders Medication Instructions Recorded Insulin Aspart [Novolog Flexpen] 24 units SC TIDCM 03/12/17 Insulin Degludec [Tresiba 76 unit SQ DAILY 10/11/17 Flextouch U-100] Metoprolol Succinate [Toprol Xl] 50 mg PO DAILY 10/11/17 levETIRAcetam tablet [Keppra 500 mg PO BID 10/11/17 tablet] Fluticasone 0.05% [Flonase Nasal 2 sprays NASAL DAILY 04/27/18 [place]] Furosemide [Lasix] 20 mg PO BID 04/27/18 Lisinopril [Zestril] 10 mg PO DAILY 04/27/18 Omeprazole 20 mg PO DAILY 04/27/18 Polyethylene Glycol 3350 [Miralax] 17 gm PO DAILY PRN 04/27/18 Prasugrel HCl 10 mg PO DAILY 06/04/18 Rivaroxaban [Xarelto] 15 mg PO DAILY 06/04/18 Simvastatin [Zocor] 40 mg PO QHS 06/04/18 Acetaminophen [Tylenol] 1,000 mg PO PRN PRN 11/18/18 Cetirizine HCl [Zyrtec] 10 mg PO DAILY PRN 11/18/18 Duloxetine HCl 30 mg PO DAILY 11/18/18 Isosorbide Mononitrate [Isosorbide 3 tab PO DAILY 11/18/18 Mononitrate ER] Ketorolac Tromethamine [Acular] 1 drop OPHTHALMIC 4X/DAY 11/18/18 Lidocaine [Lidoderm Patch] 1 patch TOPICAL DAILY 11/18/18 Sennosides/Docusate Sodium [Senna 2 tab PO DAILY 11/18/18 Plus Tablet] prednisoLONE eye drops (1 mL) 1 drop EACH EYE 4X/DAY 11/18/18 [Pred Forte eye drops (1 mL)] Isosorbide Mononitrate [Imdur] 90 mg PO DAILY tablet 11/19/18 - Family History Maternal - - History of alcoholic cirrhosis Paternal Cancer - Her father had colon cancer. Sibling Cancer - Her sister had ovarian cancer., Hypertension Smoking Status: Former smoker Tobacco Use: Non-smoker Alcohol: None Drugs: None Review of Systems Constitutional: Denies: Chills, Fever, Weight Change Eyes: Denies: Pain, Vision Change HEENT: Denies: Difficulty Hearing, Difficulty Swallowing, Sinus Congestion Cardiovascular: Denies: Chest Pain, Palpitations Respiratory: Denies: Cough, Shortness of Breath Gastrointestinal: Denies: Diarrhea, Nausea, Vomiting Genitourinary: Denies: Dysuria, Hematuria Musculoskeletal: Reports: Joint Pain Skin: Reports: Wounds Endocrine: Denies: Heat/ Cold Intolerance, Polydipsia, Polyuria Hematologic/ Lymphatic: Denies: Easy Bruising, Easy Bleeding - Physical Exam Vital Signs Temp Pulse Resp BP 96.0 F L 99 18 121/71 H 04/16/19 15:46 04/16/19 15:46 04/16/19 15:46 04/16/19 15:46 General: Alert, Oriented x3, Cooperative, No apparent distress HEENT: Atraumatic, Normocephalic Oral: Moist Mucosa Neck: Supple Lungs: Clear to auscultation Cardiovascular: Regular rate, Regular Rhythm Abdomen: Soft, Non Tender Extremities: Edema Skin: Ulcer/ Wound Wound Measurements and Assessment WC - Nurse 1 - General Ulcer Measurement Start: 04/16/19 10:53 Freq: Status: Active Protocol: Activity Type Activity Date Activity User E-Sign Co-Sign Detail Recorded Client Recorded Date Recorded By Document 04/16/19 15:46 BS [id number] 04/16/19 15:57 BS 04/16/19 15:46 Wound Center Nurse 1 [Ulcer Assessment] #1 RLE med -Combined with other wound No -Current Size (cm) - Length 1 -Current Size (cm) - Width 1 -Current Size (cm) - Depth 0.1 -Total Square Cm 1 -Date of Last Picture (Recall this 04/16/19 field) -Photo Taken Yes -Tunneling No -Undermining/Tunneling No -Circular Undermining No -Exudate Amt None Present -Wound Margin Flat & Intact -Granulation Quality Red -Slough/Fibrin No -Texture (Zamzam-wound Skin Appearance) No Abnormality, Assessed -Moisture (Zamzam-wound Skin Appearance No Abnormality, ) Assessed -Color (Zamzam-wound Skin Appearance) No Abnormality, Assessed -Temperature (Zamzam-wound Skin No Abnormality Appearance) (Pt Warm) -Tenderness on Palpation (Zamzam-wound No Skin Appearance) -Ulcer Cleansing Soap and Water -Foul Odor after Cleansing No [Edema Assessment] -Lower Limb Edema Present Yes -Point of measurement (cm from the 41.5 medial instep) -Point of Measurement (cm from the 24.8 medial instep) WC - Nurse 2 - General Ulcer CM Notes Start: 04/16/19 10:53 Freq: Status: Active Protocol: Activity Type Activity Date Activity User E-Sign Co-Sign Detail Recorded Client Recorded Date Recorded By Document 04/16/19 16:27 DV [id number] 04/16/19 16:32 DV 04/16/19 16:27 Wound Center Nurse 2 [Procedure/Treatment] #1 RLE med -Time 16:27 -Correct Patient Yes -Correct Side, Site, Position Yes -Correct Procedure Yes -Procedure Performed Yes -Type of Procedure Debridement -Clinical Debridement Selective -Post Debridement Size (cm) - Length 0.1 -Post Debridement Size (cm) - Width 0.1 -Post Debridement Size (cm) - Depth 0.1 -Total Square Cm 0.01 -Wound/Ulcer Outcome Not Healed -Ulcer Cleansing Rinsed/ Irrigated with Saline -Foul Odor after Cleansing No -Bioengineered Tissue No -Bleeding Controlled with Pressure -Offloading No -Treatment Response Procedure Tolerated Well [See Physician Procedure note for Specifics] Pain Scale: 0-10 Numeric [Pain] -Is Patient Pain Free? Yes Psych/Mental Status: Normal Affect, Appropriate Debridement Note Post-Debridement Measurements/Treatment PILO - Nurse 2 - General Ulcer CM Notes Start: 04/16/19 10:53 Freq: Status: Active Protocol: Activity Type Activity Date Activity User E-Sign Co-Sign Detail Recorded Client Recorded Date Recorded By Document 04/16/19 16:27 DV [id number] 04/16/19 16:32 DV 04/16/19 16:27 Wound Center Nurse 2 #1 ENRRIQUE med -Time 16:27 -Correct Patient Yes -Correct Side, Site, Position Yes -Correct Procedure Yes -Procedure Performed Yes -Type of Procedure Debridement -Clinical Debridement Selective -Post Debridement Size (cm) - Length 0.1 -Post Debridement Size (cm) - Width 0.1 -Post Debridement Size (cm) - Depth 0.1 -Total Square Cm 0.01 -Wound/Ulcer Outcome Not Healed -Ulcer Cleansing Rinsed/ Irrigated with Saline -Foul Odor after Cleansing No -Bioengineered Tissue No -Bleeding Controlled with Pressure -Offloading No -Treatment Response Procedure Tolerated Well Pain Scale: 0-10 Numeric Is Patient Pain Free? Yes Wound debrided: RIght lower extremity medial Laterality: Right Type of Debridement: Excisional debridement Anesthesia Used: 4% Lidocaine Solution, 5% Lidocaine Gel Depth: Down to and including healthy tissue, in the subcutaneous layer Percentage of wound debrided: 100 Instrument Used: 5mm curette Tissue Removed: yellow slough, devitalized tissue Severity: Fat Layer Exposed Amount of bleeding with debridement: Mild Bleeding Controlled with: Compression and gauze Patient tolerated procedure well Assessment/Plan Assessment: Nonhealing wound, status post traumatic hematoma to right anterior lower extremity. The patient appears to be making good progress. Plan: The patient was seen and examined at the Wound Center today and was updated on the plan of care. An excisional debridement was performed today. The patient tolerated the procedure well. Her wound is nearly healed. Will have her use Promogran to the wound and follow up in 1 week. Patient's recent arterial studies reveal no evidence of significant occlusive disease. The patient has been encouraged to elevate her lower extremities as much as possible, to minimize swelling and edema in her lower extremities. Patient has been encouraged to optimize her nutritional intake. She has also been encouraged to optimize her glycemic control. Patient educated on the importance of diet on wound healing and instructed to increase protein and vitamin C intake. A referral was previously made to nutrition services for her poorly controlled diabetes. Patient will follow up at [facility] in one week or sooner if needed. This note was generated with [employer] software. It may contain incorrect words, spelling, and punctuation that were not noted in checking the note before signing.
[2019-04-23 15:17] VITALS: BP 138/71; PULSE 99; RESP 16; TEMP 35.7; BMI 35.8
--- NOTE | 2019-04-23 18:43 | PN.PCM_ITS ---
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 Status: Chronic Current Visit: Yes Code(s): L97.912 - Non-pressure chronic ulcer of unspecified part of right lower leg with fat layer exposed Comment: s/p traumatic hematoma (2) PVD (peripheral vascular disease) Status: Chronic Current Visit: Yes Code(s): I73.9 - Peripheral vascular disease, unspecified (3) Type II diabetes mellitus Status: Chronic Current Visit: Yes Qualifiers: Diabetes mellitus [facility] insulin use: unspecified [facility] insulin use status Diabetes mellitus complication detail: with other skin ulcer Code(s): E11.9 - Type 2 diabetes mellitus without complications Type of Wound Date of Service: 04/23/19 Chief Complaint: Nonhealing wound to right anterior lower extremity History of Wound: This is a 73-year-old white female who [facility] nonhealing wound to the right anterior lower extremity. The wound occurred as a result of trauma resulting from impacting her right lower extremity against her refrigerator. The injury occurred approximately 5 months ago. She has been being treated here by Kuldeep Encarnacion CNP who has applied Purapply and recently [place]ield to her wound with significant improvement. The patient's medical history is significant for: Obesity, GERD, HTN, HLD, Chronic CHF Unclear Type, PAF, Anxiety and Depression, Seizure disorder, Diabetes mellitus type II uncontrolled, ERIC, CKD stage III. According the patient, upon initially injuring her right lower extremity, a hematoma formed. She states that the hematoma persisted until a couple of weeks prior to presentation, when she was seen by Dr. Jacques who unroofed the necrotic hematoma. She stated that the ulceration had been open since then and draining a small amount of serosanguineous fluid. Her wound care consisted of rinsing the wound with saline daily initially. She stated that her diabetes is not well controlled and she does not routinely check her blood sugars. She denied any recent cultures being taken or being on any antibiotics. The patient denied fever, chills, nausea, vomiting, shortness of breath, chest pain or pressure, palpitations, orthopnea, lower extremity edema, syncope or presyncopal episodes. Progress of Wound: Post hematoma ulceration of her right lower extremity wound bed is healed. - Physical Exam Vital Signs Temp Pulse Resp BP 96.2 F L 99 16 138/71 H 04/23/19 15:17 04/23/19 15:17 04/23/19 15:17 04/23/19 15:17 General: Alert, Oriented x3, Cooperative, No apparent distress HEENT: Atraumatic, Normocephalic Oral: Moist Mucosa Abdomen: Obese Extremities: Edema Skin: Ulcer/ Wound Wound Measurements and Assessment WC - Nurse 1 - General Ulcer Measurement Start: 04/16/19 10:53 Freq: Status: Active Protocol: Activity Type Activity Date Activity User E-Sign Co-Sign Detail Recorded Client Recorded Date Recorded By Document 04/23/19 15:17 [facility] [id number] 04/23/19 15:21 [facility] 04/23/19 15:17 Wound Center Nurse 1 [Ulcer Assessment] #1 RLE med -Combined with other wound No -Current Size (cm) - Length 0 -Current Size (cm) - Width 0 -Current Size (cm) - Depth 0 -Total Square Cm 0 -Date of Last Picture (Recall this 04/23/19 field) -Epithelialization Large 67-100% WC - Nurse 2 - General Ulcer CM Notes Start: 04/16/19 10:53 Freq: Status: Active Protocol: Activity Type Activity Date Activity User E-Sign Co-Sign Detail Recorded Client Recorded Date Recorded By Document 04/23/19 15:36 DV [id number] 04/23/19 15:40 DV 04/23/19 15:36 Wound Center Nurse 2 [Procedure/Treatment] -Time 15:36 -Correct Patient Yes -Correct Side, Site, Position Yes -Correct Procedure No -Procedure Performed No -Post Debridement Size (cm) - Length 0 -Post Debridement Size (cm) - Width 0 -Post Debridement Size (cm) - Depth 0 -Total Square Cm 0 -Wound/Ulcer Outcome Healed- Epithelialized [See Physician Procedure note for Specifics] Pain Scale: 0-10 Numeric [Pain] -Is Patient Pain Free? Yes Psych/Mental Status: Normal Affect, Appropriate Debridement Note Post-Debridement Measurements/Treatment WC - Nurse 2 - General Ulcer CM Notes Start: 04/16/19 10:53 Freq: Status: Active Protocol: Activity Type Activity Date Activity User E-Sign Co-Sign Detail Recorded Client Recorded Date Recorded By Document 04/16/19 16:27 DV [id number] 04/16/19 16:32 DV Document 04/23/19 15:36 DV [id number] 04/23/19 15:40 DV 04/16/19 04/23/19 16:27 15:36 Wound Center Nurse 2 #1 RLE med -Time 16:27 15:36 -Correct Patient Yes Yes -Correct Side, Site, Position Yes Yes -Correct Procedure Yes No -Procedure Performed Yes No -Type of Procedure Debridement -Clinical Debridement Selective -Post Debridement Size (cm) - Length 0.1 0 -Post Debridement Size (cm) - Width 0.1 0 -Post Debridement Size (cm) - Depth 0.1 0 -Total Square Cm 0.01 0 -Wound/Ulcer Outcome Not Healed Healed- Epithelialized -Ulcer Cleansing Rinsed/ Irrigated with Saline -Foul Odor after Cleansing No -Bioengineered Tissue No -Bleeding Controlled with Pressure -Offloading No -Treatment Response Procedure Tolerated Well Pain Scale: 0-10 Numeric Is Patient Pain Free? 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 The patient appears to be making good progress. Plan: Her wound is healed. She will be discharged at this time and was advised to follow up as needed. This note was generated with Medlioation software. It may contain incorrect words, spelling, and punctuation that were not noted in checking the note before signing.
== END 2019-05-12 23:59 ==
LOC: WC 15:15
PROVIDERS: Family Provider Internal Medicine; PCP Internal Medicine; Referring Provider Nurse Practitioner Family; Visit Provider Nurse Practitioner Family
DX: E11.622 Type 2 diabetes mellitus with other skin ulcer (principal); L97.812 Non-pressure chronic ulcer of other part of right lower leg with fat layer exposed; E78.5 Hyperlipidemia, unspecified; E66.01 Morbid (severe) obesity due to excess calories; Z71.3 Dietary counseling and surveillance; E11.51 Type 2 diabetes mellitus with diabetic peripheral angiopathy without gangrene; K21.9 Gastro-esophageal reflux disease without esophagitis; I13.0 Hypertensive heart and chronic kidney disease with heart failure and stage 1 through stage 4 chronic kidney disease, or unspecified chronic kidney disease; N18.3 Chronic kidney disease, stage 3 (moderate); E11.22 Type 2 diabetes mellitus with diabetic chronic kidney disease; E11.65 Type 2 diabetes mellitus with hyperglycemia; I50.9 Heart failure, unspecified; I48.0 Paroxysmal atrial fibrillation; I25.10 Atherosclerotic heart disease of native coronary artery without angina pectoris; M19.90 Unspecified osteoarthritis, unspecified site; G47.30 Sleep apnea, unspecified; S80.11XS Contusion of right lower leg, sequela; X58.XXXS Exposure to other specified factors, sequela; Z87.891 Personal history of nicotine dependence
CPT/HCPCS: 97597; 99212; G0463

== ENCOUNTER 2019-11-13 10:03 | Emergency (ER) | payer MEDICARE, SELFPAY ==
[2019-11-13 10:04] VITALS: BP 167/87; PULSE 82; RESP 18; TEMP 36.5; O2SAT 94; BMI 43.0
--- NOTE | 2019-11-13 10:32 | RAD_ITS ---
STUDY: X-RAY - LEFT KNEE REASON FOR EXAM: Female, 74 years old. FELL TODAY -- LEFT KNEE PAIN -- PT STATES HER KNEE ALWAYS HURTS TECHNIQUE: 4 view(s) of the knee. COMPARISON: None. FINDINGS: There is demineralization of the visualized distal femur. There is demineralization of the tibia and fibula. Normal proximal tibiofibular articulation. There is severe degenerative arthrosis of the medial femorotibial compartment with severe joint space narrowing. There is severe degenerative arthrosis of the lateral femorotibial compartment with severe joint space narrowing. There is severe degenerative arthrosis of the patellofemoral articulation. Small suprapatellar effusion is present. RAD/Knee 4 or More Views IMPRESSION: Severe tricompartmental osteoarthrosis with no evidence of definitive acute osseous injury. Electronically Signed: Franklyn Bernstein DO at 11:07 EST , Service support ,
--- NOTE | 2019-11-13 10:33 | ED.VIS.FALL ---
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 Negative for: Cannot recall fall, Prodromal, Dizziness, Vertigo, Lightheadedness, Near-syncope Fall from Height (ft): Standing Usually ambulates: Without assistance Quality of Pain: Sharp Current Severity: Moderate Maximum Severity: Severe Worsened by: Ambulation. Relieved by: Rest Associated Symptoms: Negative for: Parasthesias, Weakness, Loss of function, Inability to ambulate, Loss of consciousness, Amnesia Narrative: 74-year-old female with a past medical history of coronary artery disease, CHF, atrial fibrillation currently anticoagulated on Xarelto presents to the emergency department with left knee pain by squad. Patient had a mechanical fall. She states she got out of bed this morning to go walk over to her closet because of her cat just had 4 kittens and she slipped and fell onto her left side striking her left knee on the ground. She did not hit her head. She had no prodromal symptoms. She did not lose consciousness. She has no other injuries. She used her life alert to call paramedics. She was able to stand up on her leg when they helped her onto the cot. She denies weakness or paresthesias. She has no back pain. No abdominal pain or chest pain. No headache or neck pain. She does not feel lightheaded or dizzy. She denies any numbness tingling or weakness. No visual changes. Tetanus Immunization: Unknown Prior similar symptoms: Yes Recent Illness/Hospitalization: No <Ananth Yu - Last Filed: 11/13/19 13:59> <Gaurang Edwards - Last Filed: 11/13/19 15:48> Chief Complaint: Fall Past Medical History Prior records reviewed: Yes Past Medical History: - - Seizure disorder, CAD, CHF, atrial fibrillation Surgical History: hysterectomy, - - ECI x2, thyroidectomy for goiter, left lower extremity surgery for bone cancer, pacemaker, hysterectomy. Lives: Alone Smoking Status: Former smoker - Family History Maternal Family History: Reports: - - History of alcoholic cirrhosis Paternal Family History: Reports: Cancer - Her father had colon cancer. Sibling Family History: Reports: Cancer - Her sister had ovarian cancer., Hypertension <Ananth Yu - Last Filed: 11/13/19 13:59> <Gaurang Edwards - Last Filed: 11/13/19 15:48> - Allergies and Home Meds Allergies/Adverse Reactions: Allergies atorvastatin calcium [From Lipitor] Allergy (Verified 11/13/19 10:08) dont remember codeine Allergy (Verified 11/13/19 10:08) Rash iodine Allergy (Verified 11/13/19 10:08) Rash Latex, Natural Rubber Allergy (Verified 11/13/19 10:08) Rash lovastatin Allergy (Verified 11/13/19 10:08) Rash rosuvastatin calcium [From Crestor] Allergy (Verified 11/13/19 10:08) rash\ naproxen [From Naprosyn] Adverse Reaction (Verified 11/13/19 10:08) Upset Stomach pregabalin [From Lyrica] Adverse Reaction (Verified 11/13/19 10:08) Upset Stomach Sulfa (Sulfonamide Antibiotics) Adverse Reaction (Verified 11/13/19 10:08) Upset Stomach Primary Care Physician: Emerita Gottlieb MD [Primary Care Provider] - Review of Systems All systems negative except as indicated General: Denies: Chills, Fever Eyes: Denies: Visual changes - bilaterally, Blurred Vision - bilaterally, Diplopia ENT: Denies: Rhinorrhea, Sore throat Cardiovascular: Denies: Chest pain, Palpitations, Heart racing Respiratory: Denies: Dyspnea, Cough, Sputum Gastrointestinal: Denies: Abdominal pain, Nausea, Vomiting Genitourinary: Denies: Dysuria, Hematuria, Frequency Musculoskeletal: Reports: Swelling, Extremity Pain. Denies: Neck pain, Back pain Skin: Denies: Rash, Abscess, Abrasions, Wounds Neurological: Denies: Headache, Weakness, Parasthesia, Numbness Hematologic: Reports: Easy bruising. Denies: Easy bleeding <Ananth Yu - Last Filed: 11/13/19 13:59> Physical Exam Vital Signs/Narrative: Vital Signs Temp Pulse Resp BP Pulse Ox 11/13/19 10:04 97.7 F L 82 18 167/87 H 94 Inital Vital Signs reviewed: Yes General: Well nourished, Well developed Head: Normocephalic, Atraumatic Eyes: Perrl, EOMI ENT: TM's clear, No hemotympanum or drainage, No trauma Neck: Nontender, Full ROM Cardiovascular: Regular rate, Irregular Respiratory: No distress, CTA bilaterally, Chest nontender Abdomen: Soft, Nontender, Nondistended, Normal bowel sounds Back: Nontender, Negative SLR - Right, Negative SLR - Left Skin: Normal color, No rash, No Trauma Neurological: Alert, Oriented x3, Normal Strength, Normal Sensation Psychological: Normal affect <Ananth Yu - Last Filed: 11/13/19 13:59> Vital Signs/Narrative: Vital Signs Pulse Resp BP Pulse Ox 11/13/19 12:29 86 16 152/100 H 95 <Gaurang Edwards - Last Filed: 11/13/19 15:48> Diagnostic/Tx/Re-eval - Medical Decision Making CT brain was obtained as the patient fell and is on anticoagulation. This was unremarkable. X-ray of the knee shows chronic changes but no acute abnormality. Patient remains hemodynamically stable. She is able to ambulate with walker. She does not wish further testing and will be discharged home with her family. She is in pain management and has [place] to take for pain <Ananth Yu - Last Filed: 11/13/19 13:59> - Medical Decision Making Seen and evaluated independently and in conjunction with physician assistant associate full professor. Agree with notes above unless documented otherwise. She has diffuse tenderness throughout her knee, x-rays are negative showing significant arthritis. She is able to stand and walk, and wants to go home. CT negative. She usually uses her walker but she had just gotten out of bed when she tripped and fell and had not yet gotten to her walker. This all sounds very mechanical and I do not think she needs further medical work-up emergently at this time. <Gaurang Edwards - Last Filed: 11/13/19 15:48> ED Disposition <Ananth Yu - Last Filed: 11/13/19 13:59> <Gaurang Edwards - Last Filed: 11/13/19 15:48> - Plan for ED Patient: Disposition: Home or Assisted Living Diagnosis: Closed head injury, Contusion of left knee Instructions: HEAD INJURY, No Wake-Up (Adult) Referrals: Emerita Gottlieb MD [Primary Care Provider] - As Needed
--- NOTE | 2019-11-13 10:37 | CT_ITS ---
STUDY: CT BRAIN WITHOUT CONTRAST REASON FOR EXAM: Female, 74 years old. FALL, CONFUSION RADIATION DOSAGE (If Supplied By Facility): CTDIvol = ( 44.99 ) mGy, DLP = ( 796.11 ) mGycm TECHNIQUE: Transaxial CT imaging of the brain was performed without administration of intravenous contrast material. Individualized dose optimization techniques were used for this CT. COMPARISON: No relevant priors. FINDINGS: Normal soft tissue structures. Normal calvarium. There is moderate cerebral atrophy with widening of the extra-axial spaces and ventricular dilatation. There are areas of decreased attenuation within the white matter tracts of the supratentorial brain, consistent with microvascular disease changes. Normal basal ganglia and thalami. Normal brainstem. Normal cerebellum. There is no intracranial hemorrhage. There are no findings of an acute ischemic infarction. Normal visualized paranasal sinuses. CT/Brain/Head without Contrast IMPRESSION: Senescent changes with no evidence of acute intracranial bleed, mass or ischemia. Electronically Signed: Franklyn Bernstein DO at 11:14 EST , Service support ,
[2019-11-13 12:29] VITALS: BP 152/100; PULSE 86; RESP 16; O2SAT 95
--- NOTE | 2019-11-13 13:11 | ED.RN ---
called CT at 1230 to inquire about head CT[address] will contact radiologist.
== END 2019-11-13 14:40 | disposition home or self-care (01) ==
PROVIDERS: Emergency Provider Physician Assistant Medical; PCP Internal Medicine; Referring Provider Internal Medicine
DX: S80.02XA Contusion of left knee, initial encounter (principal); S09.90XA Unspecified injury of head, initial encounter; I48.91 Unspecified atrial fibrillation; I50.9 Heart failure, unspecified; I25.10 Atherosclerotic heart disease of native coronary artery without angina pectoris; Z79.02 Long term (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 of antithrombotics/antiplatelets; Z87.891 Personal history of nicotine dependence; W01.0XXA Fall on same level from slipping, tripping and stumbling without subsequent striking against object, initial encounter; Y93.01 Activity, walking, marching and hiking; Y92.003 Bedroom of unspecified non-institutional (private) residence as the place of occurrence of the external cause; Y99.8 Other external cause status
CPT/HCPCS: 70450; 73564; 99284

== ENCOUNTER 2020-02-29 09:58 | Inpatient (IN) | payer MEDICARE, MEDICAID, SELFPAY ==
[2020-02-29] VITALS (12 sets, daily range): BP systolic 138–176; BP diastolic 84–135; PULSE 65–98; RESP 12–24; TEMP 36.1–37; O2SAT 96–100; BMI 39.7; BMI 38.3
--- NOTE | 2020-02-29 10:20 | EKG12_ITS ---
Test Reason : Blood Pressure : / mmHG Vent. Rate : 090 BPM Atrial Rate : 208 BPM P-R Int : 000 ms QRS Dur : 130 ms QT Int : 404 ms P-R-T Axes : 000 -20 -02 degrees QTc Int : 494 ms Atrial fibrillation Right bundle branch block Abnormal ECG Confirmed by TAM GALINDO, LORRAINE ([id number]), editor book NICHELLE RUIZ ([id number]) on 03/07/2020 2:47:52 PM Referred By: LAUREN Confirmed By:LORRAINE TURCIOS MD
--- NOTE | 2020-02-29 10:20 | CT_ITS ---
STUDY: CT BRAIN WITHOUT CONTRAST REASON FOR EXAM: Female, 74 years old. HEADACHE AND ELEVATED BLOOD SUGAR RADIATION DOSAGE (If Supplied By Facility): CTDIvol = ( 44.99 ) mGy, DLP = ( 829.85 ) mGycm TECHNIQUE: Transaxial CT imaging of the brain was performed without administration of intravenous contrast material. Individualized dose optimization techniques were used for this CT. COMPARISON: FINDINGS: Normal soft tissue structures. Normal calvarium. There is mild cerebral atrophy with widening of the extra-axial spaces and ventricular dilatation. There are areas of decreased attenuation within the white matter tracts of the supratentorial brain, consistent with microvascular disease changes. Normal basal ganglia and thalami. Normal brainstem. Normal cerebellum. There is no intracranial hemorrhage. There are no findings of an acute ischemic infarction. Normal visualized paranasal sinuses. CT/Brain/Head without Contrast IMPRESSION: Chronic involutional changes of the brain. Electronically Signed: Braxton Arredondo MD at 11:09 EDT Tel , Service support ,
[2020-02-29 10:21] LABS: Bedside Glucose 477 mg/dL (70-110)
[2020-02-29 10:27] LABS: Absolute Lymphocyte Count 1.63 X10^3/uL (0.83-4.51); Basophil# 0.06 X10^3/uL; Basophil% 0.7 % (0-1); Eosinophil# 0.19 X10^3/uL; Eosinophils% 2.2 % (0-5); Hemoglobin 12.5 g/dL (12.0-15.0); Lymphocyte # 1.63 X10^3/ul (4.0); Lymphocyte % 19.2 % (19-41); Mean Corp Hgb Conc 31.3 g/dL (32-36); Mean Corpuscular Volume 76.8 fL (81-99); Monocyte# 0.61 X10^3/uL; Monocyte% 7.2 % (0-10); NRBC Flagged by Analyzer 0 % (0-5); Neutrophil # 5.97 X10^3/uL (2.7-7.7); Neutrophil % 70.5 % (47-70); Platelet Count 216 K/mm3 (150-450); RBC Distribution Width CV 16.1 % (11.6-14.6); RBC Distribution Width SD 43.5 fl (35.1-43.9); Red Blood Count 5.21 M/mm3 (4.2-5.4); White Blood Count 8.5 K/mm3 (4.4-11.0)
--- NOTE | 2020-02-29 10:50 | RAD_ITS ---
STUDY: X-RAY CHEST REASON FOR EXAM: Female, 74 years old. PT HERE FOR MENTAL STATUS CHANGE. HAS BEEN ONGOING FOR SEVERAL DAYS. HOME HEALTH AID CHECKED BLOOD SUGAR YESTERDAY. HAS BEEN TRENDING UP. HAS NOT CHECKED SINCE. OVER 500 FOR SQUAD. TECHNIQUE: Single AP portable view of the chest. COMPARISON: 11/18/2018 FINDINGS: Left subclavian single lead pacemaker which is unchanged. The lungs are clear and expanded. There is no demonstrated pleural abnormality. There is moderate cardiac enlargement. Normal mediastinum and susan. Normal visualized pulmonary arteries. Normal visualized aortic arch and descending thoracic aorta. Normal visualized thoracic spine. Normal visualized ribs, clavicles, and shoulders. There is no demonstrated abnormality of the visualized soft tissue structures of the upper abdomen. RAD/Chest 1 View (Portable) IMPRESSION: No active disease. Electronically Signed: Braxton Arredondo MD at 11:07 EDT Tel , Service support ,
[2020-02-29 10:52] LABS: Anion Gap 8 (5-15); BUN 18 mg/dL (7-18); BUN/Creat Ratio 14.3 RATIO (10-20); Calcium,Total 9.6 mg/dL (8.5-10.1); Chloride 97 mmol/L (98-107); Creatinine, Serum 1.26 mg/dL (0.55-1.02); EST Glomerular Filtration Rate 44 mL/min (>60); Est Glom Filt Rate - Afr Amer 53 mL/min (>60); Glucose 513 mg/dL (74-106); Potassium 4.1 mmol/L (3.5-5.1); Sodium Level 134 mmol/L (136-145)
[2020-02-29 12:11] LABS: Mucous, Urine 0 SEEN /hpf (<or=2+); White Blood Cells 0 SEEN /hpf (0-5)
[2020-02-29 12:13] LABS: Color, Urine Yellow (Yellow); Glucose, Dipstick 1000 mg/dl (Normal); Ketone-Dipstick Negative (Negative); Leukocyte Esterase-Dipstick Negative /ul (Negative); Nitrite-Dipstick Positive (Negative); Occult Blood-Urine 10 /ul (Negative); Protein-Dipstick 100 mg/dl (Negative); Specific Gravity, Urine 1.015 (1.002-1.030); Urine Bilirubin Dipstick Negative (Negative); Urine Clarity Sl. Cloudy (Clear); Urine Urobilinogen Normal (Normal)
[2020-02-29 12:22] LABS: Bacteria 1+ /hpf (None Seen); Red Blood Cells-Urine 0-5 SEEN /hpf (0-5); Squamous Epithelial Cells - UA 0-5 SEEN /hpf (5-10)
--- NOTE | 2020-02-29 12:26 | NURSING ---
DR ROSANNA AGUILAR
--- NOTE | 2020-02-29 12:34 | ED.VISSUMM ---
- ER Visit Summary Date of Service: 02/29/20 Chief Complaint: [Mental status change] History of Present Illness: The patient is a 74 F [presents to the emergency department via EMS from home. Patient has visiting nurse that comes into the home to help care for the patient and they called the squad for the patient this morning.] Patient is a poor historian and has essentially a positive review of systems. She does describe a headache and complains of pain in her legs and complains of dysuria. Apparently her glucometer at home broke and her sugars have been running high. Patient has history of diabetes, hypertension, coronary artery disease, CHF, delirium, and peripheral vascular disease. Physical Examination: [HEENT-PERRLA, EOMI. Cranial nerves II through XII grossly intact. TMs clear. Mucous membranes moist. No adenopathy. Cardiovascular-irregularly irregular, no murmurs auscultated Lungs-clear to auscultation, chest wall stable without crepitus or subcu emphysema Abdomen-normoactive bowel sounds, soft, nontender, no rebound or rigidity, no peritoneal signs. Extremities-intact ?4, normal range of motion, normal pulses, atraumatic] Test Results: [EKG obtained arrival showed atrial fibrillation with a ventricular rate of 90 bpm with no acute segment changes. CBC with differential showed a white count of 8.5, hemoglobin 12.5, hematocrit 40, placed 216. Chemistries unremarkable. Urinalysis showed no signs of infection. Glucose was elevated 513. Troponin was less than 0.015. Chest x-ray showed nothing acute. CT scan of the brain without contrast showed chronic involutional changes.] Emergency Department Course and Treatment: [Received Humalog 8 units subcu. Patient had an IV line established and was placed on a documentation billing clerk. She was given normal saline.] Treatment Plan: [Admit] Disposition: [Admit] Impression: [Hyperglycemia Delirium/mental status change] This note was generated with Aud[employer]ation software. It may contain incorrect words, spelling, and punctuation that were not noted in review of the chart prior to signing ED Disposition - Plan for ED Patient: Referrals: Emerita Gottlieb MD [Primary Care Provider] -
[2020-02-29] MEDS: 0.9% Normal Saline 1,000 ML 150 ML IV ×2 (12:37→18:23)
--- NOTE | 2020-02-29 12:37 | NURSING ---
PCU KORAMMENTAL STATUS CHANGE, HYPERGLYCEMIA KORAM
[2020-02-29] MEDS: Insulin Lispro 100 UNIT/ML INSULN.PEN 8 UNIT SC (12:38)
--- NOTE | 2020-02-29 12:39 | PCM.HP.STD ---
History of Present Illness Date of Admission: 02/29/20 Chief Complaint: altered mental status The patient is a 74 year old F with a past medical history as outlined was admitted from home with a complaint of altered mental status. She has a visiting nurse who goes home to help care for the patient and the called the squad for the patient this morning because she was noted to be very confused. Patient could not give any specific complaints and just says she felt very weak and tired at home. She does not remember exactly what happened at home that the squad was called. Her glucometer at home was broken and she had not been checking her sugars and his sugars have been running high. Unable to do comprehensive review of systems as patient is quite confused. On admission in the ED, glucose was 477. Vitals were otherwise stable. Chemistry showed sodium of 134 with chloride of 97 and bicarb of 29. Blood glucose per chemistry was 513 and troponin was less than 0.015. Creatinine was 1.26. CBC showed white cell count of 8.5 with hemoglobin of 12.5 and platelets of 216. CT of the brain done showed chronic involutional changes of the brain. Urinalysis showed 1+ bacteria. She has been admitted to be managed for acute metabolic encephalopathy likely due to hypoglycemia from poorly controlled diabetes and probable UTI. 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) s/p traumatic hematoma PVD (peripheral vascular disease) (Chronic) Wound of right lower extremity (Chronic) Migraine (Chronic) Hyperlipidemia (Chronic) Hypertension (Chronic) Benign essential hypertension (Chronic) CAD (coronary artery disease) (Chronic) Chronic CHF (Chronic) Chronic constipation (Chronic) Type II diabetes mellitus (Chronic) Morbid obesity (Chronic) Osteoarthritis (Chronic) Spondylosis (Chronic) History of urinary incontinence (Chronic) Chronic back pain (Chronic) Sleep apnea (Chronic) CKD (chronic kidney disease) stage 3, GFR 30-59 ml/min (Chronic) Allergies atorvastatin calcium [From Lipitor] Allergy (Verified 11/13/19 10:08) dont remember codeine Allergy (Verified 11/13/19 10:08) Rash iodine Allergy (Verified 11/13/19 10:08) Rash Latex, Natural Rubber Allergy (Verified 11/13/19 10:08) Rash lovastatin Allergy (Verified 11/13/19 10:08) Rash rosuvastatin calcium [From Crestor] Allergy (Verified 11/13/19 10:08) rash\ naproxen [From Naprosyn] Adverse Reaction (Verified 11/13/19 10:08) Upset Stomach pregabalin [From Lyrica] Adverse Reaction (Verified 11/13/19 10:08) Upset Stomach Sulfa (Sulfonamide Antibiotics) Adverse Reaction (Verified 11/13/19 10:08) Upset Stomach Home Medications: Ambulatory Orders Medication Instructions Recorded Insulin Aspart [Novolog Flexpen] 24 units SC TIDCM 03/12/17 Insulin Degludec [Tresiba 76 unit SQ DAILY 10/11/17 Flextouch U-100] Metoprolol Succinate [Toprol Xl] 50 mg PO DAILY 10/11/17 levETIRAcetam tablet [Keppra 500 mg PO BID 10/11/17 tablet] Fluticasone 0.05% [Flonase Nasal 2 sprays NASAL DAILY 04/27/18 [place]] Furosemide [Lasix] 20 mg PO BID 04/27/18 Lisinopril [Zestril] 10 mg PO DAILY 04/27/18 Omeprazole 20 mg PO DAILY 04/27/18 Polyethylene Glycol 3350 [Miralax] 17 gm PO DAILY PRN 04/27/18 Prasugrel HCl 10 mg PO DAILY 06/04/18 Rivaroxaban [Xarelto] 15 mg PO DAILY 06/04/18 Simvastatin [Zocor] 40 mg PO QHS 06/04/18 Acetaminophen [Tylenol] 1,000 mg PO PRN PRN 11/18/18 Cetirizine HCl [Zyrtec] 10 mg PO DAILY PRN 11/18/18 Duloxetine HCl 30 mg PO DAILY 11/18/18 Ketorolac Tromethamine [Acular] 1 drop OPHTHALMIC 4X/DAY 11/18/18 Lidocaine [Lidoderm Patch] 1 patch TOPICAL DAILY 11/18/18 Sennosides/Docusate Sodium [Senna 2 tab PO DAILY 11/18/18 Plus Tablet] prednisoLONE eye drops (1 mL) 1 drop EACH EYE 4X/DAY 11/18/18 [Pred Forte eye drops (1 mL)] Isosorbide Mononitrate [Imdur] 90 mg PO DAILY 02/29/20 Levothyroxine [Synthroid] 50 mcg PO DAILY 02/29/20 Memantine HCl [Memantine HCl ER] 14 mg PO DAILY 02/29/20 Oxycodone HCl/Acetaminophen 1 ea PO PRN PRN 02/29/20 [Endocet 5-325 Tablet] Surgical History: hysterectomy, - - ECI x2, thyroidectomy for goiter, left lower extremity surgery for bone cancer, pacemaker, hysterectomy. Psychiatric History: Anxiety, Depression [employer] History: No pertinent [employer] history Lives: Alone Smoking Status: Former smoker Alcohol: None Drugs: None - *Family History Maternal History Items: - - History of alcoholic cirrhosis Paternal History Items: Cancer - Her father had colon cancer. Sibling History Items: Cancer - Her sister had ovarian cancer., Hypertension Review of Systems Constitutional: Reports: Malaise, Weakness Neurological: Reports: Confusion Unable to obtain accurate/complete ROS d/t: due to patient being very confused VTE Information - Inpt Only VTE Present on Admission: No VTE Mechan Device Prophylaxis: SCD's - Physical Exam Vitals/I&O's: Vital Signs Temp Pulse Resp BP Pulse Ox 98.6 F 88 16 161/95 H 97 02/29/20 10:05 02/29/20 11:50 02/29/20 11:50 02/29/20 11:50 02/29/20 11:50 Oxygen Delivery Method Room Air Weight: 231 lb 7.766 oz Body Mass Index (BMI) 39.7 Finger Stick Blood Glucose 477 General: Alert, Confused, Disoriented HEENT: Atraumatic, PERRLA, EOMI, Normocephalic Oral: Dry Mucosa Neck: Supple, No JVD, Negative Carotid Bruits Lungs: Clear to auscultation, Normal air movement Cardiovascular: Regular rate, Regular Rhythm, Normal S1, Normal S2, No murmurs Abdomen: Bowel Sounds Present, Soft, Non Tender, Non-Distended, No Hepato-splenomegaly Extremities: No clubbing, No cyanosis, No edema, Capillary Refill Less than 3 Seconds Skin: No rashes, No breakdown Musculoskeletal: No Tenderness to Palpation of Joints or Extremities Lymphatic: No Cervical, Supraclavicular, or Inguinal Adenopathy Neurological: Cranial nerves II-XII grossly intact, Motor Exam 5/5 strength throughout, - - very confused; oriented only to self. Psych/Mental Status: Flat Affect, Restless Laboratory Results 02/29/20 10:10: WBC 8.5, RBC 5.21, Hgb 12.5, Hct 40.0, MCV 76.8 L, MCH 24.0 L, MCHC 31.3 L, RDW Std Deviation 43.5, RDW Coeff of Candace 16.1 H, Plt Count 216, MPV 12.0, Immature Gran % (Auto) 0.200, Neut % (Auto) 70.5 H, Lymph % (Auto) 19.2, [place] % (Auto) 7.2, Eos % (Auto) 2.2, Baso % (Auto) 0.7, Absolute Neuts (auto) 6.0, Absolute Lymphs (auto) 1.63, Nucleated RBC % 0 02/29/20 10:10: Sodium 134 L, Potassium 4.1, Chloride 97 L, Carbon Dioxide 29.0, Anion Gap 8, BUN 18, Creatinine 1.26 H, Estim Creat Clear Calc 32.80, Est GFR (MDRD) Af Amer 53 L, Est GFR (MDRD) Non-Af 44 L, BUN/Creatinine Ratio 14.3, Glucose 513 H*, Calcium 9.6, Troponin I < 0.015 02/29/20 10:13: POC Glucose 477 H* 02/29/20 12:00: Urine Color Yellow, Urine Clarity Sl. Cloudy, Urine pH 6.0, Ur Specific [place] 1.015, Urine Protein 100 H, Urine Glucose (UA) 1000 H, Urine Ketones Negative, Urine Occult Blood 10 H, Urine Nitrite Positive H, Urine Bilirubin Negative, Urine Urobilinogen Normal, Ur Leukocyte Esterase Negative, Urine RBC 0-5 SEEN, Urine WBC 0 SEEN, Ur Squamous Epith Cells 0-5 SEEN, Urine Bacteria 1+, Urine Mucus 0 SEEN Diagnostic Data Brain CT 02/29/20 10:20 IMPRESSION: Chronic involutional changes of the brain. Electronically Signed: Braxton Arredondo MD at 11:09 EDT Tel , Service support , Chest X-Ray 02/29/20 10:50 IMPRESSION: No active disease. Electronically Signed: Braxton Arredondo MD at 11:07 EDT Tel , Service support , Current Medications Sodium Chloride () 1,000 mls @ 150 mls/hr IV .[id number] [facility] Last Admin: 02/29/20 12:37 Dose: 150 mls/hr Documented by: Assessment/Plan All Active Problems Cholelithiasis (Acute) Delirium (Acute) GRIS (acute kidney injury) (Acute) Fall (Acute) Decreased dorsalis pedis pulse (Acute) UTI (urinary tract infection) (Acute) Pneumococcal pneumonia (Acute) Sepsis (Acute) Hypoglycemia (Acute) Chest pain (Acute) Dehydration (Acute) UTI (urinary tract infection) (Acute) Acute delirium (Acute) Delirium (Acute) Sepsis (Acute) Acute cystitis (Acute) Influenza A (Resolved) 74 y/o admitted with a complaint of altered mental status and found to have hyperglycemia 1. Acute metabolic encephalopathy due to hyperglycemia and UTi admit to PCU with telemetry hydrate with IVF at 150cc/hr start insulin drip and monitor blood sugar q1hrly. start IV ceftriaxone and check urine cultures. fall precautions PT/OT consult 2. UTI: as under 1 3. Hyperglycemia likely due to poorly controlled diabetes blood sugar in the 500s. It is not clear if patient has been compliant with her medications at home and with that she has been checking her blood sugars as her glucometer broke at home. Will start on insulin drip. Not in DKA as anion gap is 8 hydrate with IVF check serum osmolality check A1C 4. Hypertension: On lisinopril metoprolol Also on Lasix. Will check BNP to make sure she is not in heart failure as is not clear whether she has a history of heart failure or not. 5. Hypothyroidism: On Synthroid. Will check TSH. 6. Dementia: On memantine 7. CAD: On metoprolol and Prasugrel as well as Imdur. 8. Query A. fib: On Xarelto. 9. Hyperlipidemia: On statin. 10. Seizure disorder: On Keppra. Considering patient's confusion, will check EEG and consider neurology consult if her mentation does not improve. Prophylaxis: On Xarelto Code Status: Unable to discuss CODE STATUS with patient due to her confusion and disorientation. Inpatient E&M: 26443 Init Hosp L3
--- NOTE | 2020-02-29 13:40 | NURSING ---
103 ALTERED MENTAL STATUS KORAM
[2020-02-29 14:55] LABS: Bedside Glucose 290 mg/dL (70-110)
[2020-02-29 15:00] LABS: Magnesium 2.2 mg/dL (1.6-2.6)
[2020-02-29 15:05] LABS: Osmolality, Serum 311 mOsm/KG (280-301)
[2020-02-29 15:12] LABS: Hemoglobin A1c 11.2 % (3.8-5.6)
[2020-02-29 15:21] LABS: Anion Gap 5 (5-15); BUN 16 mg/dL (7-18); BUN/Creat Ratio 15.5 RATIO (10-20); Chloride 103 mmol/L (98-107); Creatinine, Serum 1.03 mg/dL (0.55-1.02); EST Glomerular Filtration Rate 55 mL/min (>60); Est Glom Filt Rate - Afr Amer 67 mL/min (>60); Estimated Creatinine Clearance 40.13 ml/min; Glucose 293 mg/dL (74-106); Potassium 3.8 mmol/L (3.5-5.1); Sodium Level 139 mmol/L (136-145)
[2020-02-29 15:31] LABS: Thyroid Stim Hormone (TSH) 2.48 uIU/mL (0.358-3.74)
[2020-02-29] MEDS: Insulin Lispro 100 UNIT/ML INSULN.PEN 24 UNIT SC (16:43)
[2020-02-29 17:01] LABS: Bedside Glucose 271 mg/dL (70-110)
[2020-02-29] MEDS: Ceftriaxone 1 GM/50 ML BAG IV (18:23)
[2020-02-29 18:46] LABS: Bedside Glucose 180 mg/dL (70-110)
--- NOTE | 2020-02-29 18:51 | CT_ITS ---
We are attempting to reach an attending provider to discuss findings. An addendum with communication details will be sent when the communication is complete. STUDY: CT BRAIN WITHOUT CONTRAST REASON FOR EXAM: Female, 74 years old. AMS, POSSIBLE STROKE RADIATION DOSAGE (If Supplied By Facility): CTDIvol = ( 44.99 ) mGy, DLP = ( 745.49 ) mGycm TECHNIQUE: Transaxial CT imaging of the brain was performed without administration of intravenous contrast material. Individualized dose optimization techniques were used for this CT. COMPARISON: Previous study of earlier this date FINDINGS: Normal soft tissue structures. Normal calvarium. There is mild cerebral atrophy with widening of the extra-axial spaces and ventricular dilatation. There are areas of decreased attenuation within the white matter tracts of the supratentorial brain, consistent with microvascular disease changes. Normal basal ganglia and thalami. Normal brainstem. Normal cerebellum. There is no intracranial hemorrhage. There are no findings of an acute ischemic infarction. Normal visualized paranasal sinuses. CT/Brain/Head without Contrast IMPRESSION: Chronic involutional changes of the brain. Findings are similar to the previous study. Electronically Signed: Bj Kitchen MD at 19:06 EDT , Service support ,
--- NOTE | 2020-02-29 19:26 | PCM.HOSP.N ---
Hospitalist Note Stroke alert was called about 6:35 pm. Initial NIHSS per nurse is documented 8 but I think this may be overestimated as patient is confused and disoriented and cannot answer questions appropriately. She also has bilateral lower extremity weakness secondary to arthritis. Patient was found to have facial droop on left side mild to moderate sensory loss on left side and dysarthria with mild language deficit. Baseline is unclear as she was admitted with confusion and disorientation. He also found to have mild left-sided visual partial hemianopsia. CT head was stat called It is reported as no intracranial hemorrhage. No findings of acute ischemic infarction. [facility] tele-stroke neurology was called. The patient is not a candidate of CT angiogram with IV contrast as she is allergic to iodine. MRI brain and MRA head and neck is ordered but still she has a contraindication of pacemaker. 2D echo ordered. Baby aspirin ordered. She is allergic to statin and atorvastatin.
[2020-02-29 19:29] LABS: International Normalized Ratio 1.1; Partial Thromboplast Time 25.9 Seconds (24.1-36.2); Prothrombin Time (Protime)PT. 13.2 SECONDS (11.7-14.9)
[2020-02-29 21:57] LABS: AST(SGOT) 15 U/L (15-37); Alanine Aminotransfer ALT/SGPT 17 U/L (13-56); Albumin, Serum 2.6 g/dL (3.2-5.0); Alkaline Phosphatase 66 U/L (45-117); Bilirubin, Direct 0.12 mg/dL (0.00-0.30); Globulin 4.1 g/dL (2.2-4.2); Protein, Total 6.7 g/dL (6.4-8.2)
[2020-02-29 22:31] LABS: Bedside Glucose 173 mg/dL (70-110)
[2020-03-01] VITALS (14 sets, daily range): BP systolic 126–163; BP diastolic 68–102; PULSE 77–105; RESP 14–17; TEMP 36.6–36.8; O2SAT 92–100; BMI 38.3
[2020-03-01] MEDS: 0.9% Normal Saline 1,000 ML 150 ML IV (00:18)
[2020-03-01 01:25] LABS: Bedside Glucose 168 mg/dL (70-110)
[2020-03-01 05:43] LABS: Hematocrit 38.3 % (37-47); Hemoglobin 11.6 g/dL (12.0-15.0); Mean Corp Hgb Conc 30.3 g/dL (32-36); Mean Corpuscular Hgb 23.9 pg (27.0-32.0); Mean Corpuscular Volume 78.8 fL (81-99); Mean Platelet Vol. 12.8 fl (6.2-12.0); Platelet Count 216 K/mm3 (150-450); RBC Distribution Width CV 16.2 % (11.6-14.6); RBC Distribution Width SD 45.3 fl (35.1-43.9); Red Blood Count 4.86 M/mm3 (4.2-5.4); White Blood Count 8.3 K/mm3 (4.4-11.0)
--- NOTE | 2020-03-01 05:55 | ECHOCS_ITS ---
Reason For Study: TIA/CVA Procedure This was a 2D Doppler, Color Flow transthoracic echocardiogram. The study was technically difficult. Contrast injection was performed. Exam performed portable in patient room. Left Ventricle Normal LV size. The estimated ejection fraction is 70 %. Unable to assess diastolic dysfunction. No regional wall motion abnormalities noted. Right Ventricle Normal RV size. There is a pacemaker lead in the right ventricle. Normal systolic function. Atria The left atrium is mildly enlarged. Normal right atrium. ICD or pacer leads identified within the right atrium. No doppler evidence for ASD. Mitral Valve There is moderate mitral annular calcification. There is no mitral valve stenosis. No mitral valve insufficiency. Tricuspid Valve There is no tricuspid stenosis. Trivial tricuspid valve insufficiency. Unable to estimate RV systolic pressure due to insufficient tricuspid regurgitant envelope. Aortic Valve Moderate diffuse aortic valve thickening. Moderate aortic stenosis. No aortic valve insufficiency. Pulmonic Valve There is no pulmonic valvular stenosis. No pulmonic valve insufficiency. Great Vessels Normal aortic root. Pericardium/Pleural No pericardial effusion. Medication Diluted definity 3.0ml given slow IV push to enhance endocardial definition. Previously negative bubble. MMode/2D Measurements & Calculations LVIDd: 3.8 cm IVSd: 1.2 cm Ao root diam: 3.1 cm LVIDs: 2.6 cm LVPWd: 1.3 cm RVDd: 3.3 cm FS: 31.3 % LAV(MOD-bp): 87.6 ml LA A4 area: 23.6 cm2 LA dimension(2D): 3.8 cm LAV(MOD-bp) Indexed: 42.7 ml/m2 LAV(MOD-sp2): 101.4 ml LAV(MOD-sp4): 69.9 ml RA A4 area: 14.8 cm2 Doppler Measurements & Calculations Lat Peak E' Kaleb: 5.7 cm/sec Med Peak E' Kaleb: 5.0 cm/sec Ao V2 max: 297.1 cm/sec Ao max P.4 mmHg Ao V2 mean: 208.5 cm/sec Ao mean P.4 mmHg Ao V2 VTI: 48.1 cm LV V1 max: 88.8 cm/sec TR max kaleb: 268.9 cm/sec LV V1 max P.2 mmHg TR max P.9 mmHg LV V1 mean P.9 mmHg LV V1 mean: 66.4 cm/sec LV V1 VTI: 17.3 cm Interpretation Summary The estimated ejection fraction is 70 %. Unable to assess diastolic dysfunction. The left atrium is mildly enlarged. Moderate aortic stenosis. The study was technically difficult. Contrast injection was performed. Ordering Physician: Segundo Chaney Referring Physician: CHINA SANCHEZ Performed By: Tish Moses, SAMIRCS, RVT
[2020-03-01 05:59] LABS: Anion Gap 5 (5-15); BUN 15 mg/dL (7-18); BUN/Creat Ratio 16.4 RATIO (10-20); Calcium,Total 8.3 mg/dL (8.5-10.1); Chloride 110 mmol/L (98-107); Cholesterol 209 mg/dL (200); Creatinine, Serum 0.91 mg/dL (0.55-1.02); EST Glomerular Filtration Rate 64 mL/min (>60); Est Glom Filt Rate - Afr Amer 77 mL/min (>60); Estimated Creatinine Clearance 45.42 ml/min; Glucose 187 mg/dL (74-106); High Density Lipoprotein 27 mg/dL; Potassium 3.9 mmol/L (3.5-5.1); Sodium Level 142 mmol/L (136-145); Triglycerides 254 mg/dL; Very Low Density Lipoprotein 51 mg/dL (5-40)
[2020-03-01 06:26] LABS: Bedside Glucose 201 mg/dL (70-110)
--- NOTE | 2020-03-01 08:52 | CASEMGMT ---
SW received a call from Toshia Banda at [facility]. Patient has [facility] aides M-F 2 hours a day, 5 meals a week from [facility] [employer], and a medical alert button. SW told her SW will keep her up to date. Tonja SAVAGE MSW
[2020-03-01] MEDS: Fluticasone 0.05% 1 SPRAY NASAL.SRY 2 SPRAY NASAL (10:07)
[2020-03-01] MEDS: Isosorbide Mononitrate 30 MG Tablet 90 MG PO (10:07)
[2020-03-01] MEDS: Rivaroxaban 15 MG Tablet PO (10:08)
[2020-03-01] MEDS: Pantoprazole Sodium 20 MG Tablet PO (10:08)
[2020-03-01] MEDS: Memantine Hydrochloride 5 MG Tablet PO ×2 (10:08→20:32)
[2020-03-01] MEDS: Senna/Docusate Sodium 1 Tablet 2 TABLET PO (10:08)
[2020-03-01] MEDS: Ceftriaxone 1 GM/50 ML BAG IV (10:18)
--- NOTE | 2020-03-01 10:51 | PN_ITS ---
Subjective: Patient seen and examined. She had a stroke alert called last night as her NIH stroke scale was noted to be 8. She had also been complaining of blurring of her vision. Repeat CT of the head was done which showed no evidence of hemorrhage or infarction and [facility] tele-stroke neurology was called. Patient was not deemed a candidate for TPA as she is already been anticoagulated with xarelto. 2D echo is pending an MRI and MRA of the head also pending. Patient seen this morning. She still complains of blurring of her vision and states this is chronic as she has glaucoma. She complains of left lower extremity weakness and states this is new. She denies any slurring of his speech. Patient is much more alert and oriented today than she was when I admitted her yesterday. Review of systems otherwise negative. Labs and vitals reviewed. Has remained hemodynamically stable. Vitals/I&O's: Vital Signs Temp Pulse Resp BP Pulse Ox 98.3 F 98 14 138/102 H 95 03/01/20 08:10 03/01/20 08:10 03/01/20 08:10 03/01/20 08:10 03/01/20 08:10 Oxygen Delivery Method Room Air Weight: 224 lb 6.889 oz Body Mass Index (BMI) 38.3 Finger Stick Blood Glucose 180 Intake and Output for Last 24 Hours 02/28/20 02/29/20 03/01/20 23:59 23:59 23:59 Intake Total 857.5 / 857.5 1887.5 / 1887.5 Balance 857.5 / 857.5 1887.5 / 1887.5 General: Alert HEENT: Atraumatic, PERRLA, EOMI, Normocephalic Oral: Dry Mucosa Neck: Supple, No JVD, Negative Carotid Bruits Lungs: Clear to auscultation, Normal air movement Cardiovascular: Regular rate, Regular Rhythm, Normal S1, Normal S2, No murmurs Abdomen: Bowel Sounds Present, Soft, Non Tender, Non-Distended, No Hepato- splenomegaly Extremities: No clubbing, No cyanosis, No edema, Capillary Refill Less than 3 Seconds Skin: No rashes, No breakdown Musculoskeletal: No Tenderness to Palpation of Joints or Extremities Lymphatic: No Cervical, Supraclavicular, or Inguinal Adenopathy Neurological: Cranial nerves II-XII grossly intact, power in LLE is 2/5, normal sensation to light touch and pain; Psych/Mental Status: normal affect Laboratory Results 02/29/20 10:10: Sodium 134 L, Potassium 4.1, Chloride 97 L, Carbon Dioxide 29.0, Anion Gap 8, BUN 18, Creatinine 1.26 H, Estim Creat Clear Calc 32.80, Est GFR (MDRD) Af Amer 53 L, Est GFR (MDRD) Non-Af 44 L, BUN/Creatinine Ratio 14.3, Glucose 513 H*, Calcium 9.6, Troponin I < 0.015 02/29/20 10:10: Hemoglobin A1c 11.2 H 02/29/20 10:10: Magnesium 2.2 02/29/20 10:10: Serum Osmolality 311 H 02/29/20 12:00: Urine Color Yellow, Urine Clarity Sl. Cloudy, Urine pH 6.0, Ur Specific [place] 1.015, Urine Protein 100 H, Urine Glucose (UA) 1000 H, Urine Ketones Negative, Urine Occult Blood 10 H, Urine Nitrite Positive H, Urine Bilirubin Negative, Urine Urobilinogen Normal, Ur Leukocyte Esterase Negative, Urine RBC 0-5 SEEN, Urine WBC 0 SEEN, Ur Squamous Epith Cells 0-5 SEEN, Urine Bacteria 1+, Urine Mucus 0 SEEN 02/29/20 14:50: POC Glucose 290 H 02/29/20 14:57: Sodium 139, Potassium 3.8, Chloride 103, Carbon Dioxide 31.0, Anion Gap 5, BUN 16, Creatinine 1.03 H, Estim Creat Clear Calc 40.13, Est GFR (MDRD) Af Amer 67, Est GFR (MDRD) Non-Af 55 L, BUN/Creatinine Ratio 15.5, Glucose 293 H, Calcium 9.0 02/29/20 14:57: TSH 2.48 02/29/20 14:57: Troponin I < 0.015 02/29/20 16:38: POC Glucose 271 H 02/29/20 18:02: Troponin I < 0.015 02/29/20 18:31: POC Glucose 180 H 02/29/20 19:00: PT 13.2, INR 1.1, APTT 25.9 02/29/20 21:18: Total Bilirubin 0.40, Direct Bilirubin 0.12, AST 15, ALT 17, Alkaline Phosphatase 66, Troponin I < 0.015, Total Protein 6.7, Albumin 2.6 L, Globulin 4.1 02/29/20 21:32: POC Glucose 173 H 03/01/20 01:17: POC Glucose 168 H 03/01/20 05:12: WBC 8.3, RBC 4.86, Hgb 11.6 L, Hct 38.3, MCV 78.8 L, MCH 23.9 L, MCHC 30.3 L, RDW Std Deviation 45.3 H, RDW Coeff of Candace 16.2 H, Plt Count 216, MPV 12.8 H 03/01/20 05:12: Sodium 142, Potassium 3.9, Chloride 110 H, Carbon Dioxide 27.0, Anion Gap 5, BUN 15, Creatinine 0.91, Estim Creat Clear Calc 45.42, Est GFR (MDRD) Af Amer 77, Est GFR (MDRD) Non-Af 64, BUN/Creatinine Ratio 16.4, Glucose 187 H, Calcium 8.3 L, Triglycerides 254 H, Cholesterol 209 H, LDL Cholesterol 131 H, VLDL Cholesterol 51 H, HDL Cholesterol 27 L 03/01/20 06:20: POC Glucose 201 H Diagnostic Data Chest X-Ray 02/29/20 10:50 IMPRESSION: No active disease. Electronically Signed: Braxton Arredondo MD at 11:07 EDT Tel , Service support , Brain CT 02/29/20 18:51 IMPRESSION: Chronic involutional changes of the brain. Findings are similar to the previous study. Electronically Signed: Bj Kitchen MD at 19:06 EDT , Service support , ADDENDUM: 02/29/201926 IMPRESSION: Chronic involutional changes of the brain. Findings are similar to the previous study. N.B. : The above information has been verbally conveyed by Bj Kitchen MD to Dr. Ana Cristina Stevens MD, on 02/29/2020 19:20:55 (ET). Electronically Signed: Bj Kitchen MD at 19:06 EDT , Service support , Current Medications Acetaminophen (Tylenol) 650 mg PO Q6H PRN PRN PRN Reason: Pain Score 1-10/10 Aspirin (Aspirin) 300 mg RECTAL DAILY [facility] Dextrose (D50w Syringe) 0 gm IV X1 PRN; Protocol PRN Reason: HYPOGLYCEMIA Dextrose (D50w Syringe) 0 gm IV X1 PRN; Protocol PRN Reason: Hypoglycemia Fluticasone Propionate (Flonase Nasal [place]) 2 spray NASAL DAILY [facility] Last Admin: 03/01/20 10:07 Dose: 2 spray Documented by: Glucagon () 1 mg IM .X1 PRN PRN Reason: Hypoglycemia Hydralazine HCl (Apresoline Iv) 5 mg IV Q30M PRN PRN Reason: to maintain BP goals Ceftriaxone Sodium (Rocephin) 1 gm in 50 mls @ 100 mls/hr IV Q24 [facility] Last Admin: 03/01/20 10:18 Dose: 100 mls/hr Documented by: Insulin Glargine (Lantus (Bk)) 76 units SC DAILY [facility] Last Admin: 03/01/20 09:12 Dose: Not Given Documented by: Insulin Human Lispro (Humalog Kwikpen ([facility])) 24 unit SC TIDCM [facility] Last Admin: 03/01/20 09:11 Dose: Not Given Documented by: Isosorbide Mononitrate (Imdur) 90 mg PO DAILY [facility] Last Admin: 03/01/20 10:07 Dose: 90 mg Documented by: Labetalol HCl (Trandate) 10 - 20 mg IV Q10M PRN PRN PRN Reason: to maintain BP goals Levothyroxine Sodium (Synthroid) 50 mcg PO DAILY@0600 [facility] Last Admin: 03/01/20 05:17 Dose: Not Given Documented by: Lisinopril (Zestril) 10 mg PO DAILY [facility] Loratadine (Claritin) 10 mg PO DAILY PRN PRN Reason: ALLERGIES Memantine (Namenda) 5 mg PO BID [facility] Last Admin: 03/01/20 10:08 Dose: 5 mg Documented by: Metoprolol Succinate (Toprol Xl (Beta Susy)) 50 mg PO DAILY [facility] Nitroglycerin (Nitrostat) 0.4 mg SUBLINGUAL Q5M PRN PRN Reason: CARDIAC/CHEST PAIN Non-Formulary Medication (Ketorolac Tromethamine [Acular]) 1 drop OPHTHALMIC 4X/DAY [facility] Non-Formulary Medication (Prednisolone Eye Drops (1 Ml) [Pred Forte Eye Drops (1 Ml)]) 1 drop EACH EYE 4X/DAY [facility] Ondansetron HCl (Zofran) 4 mg IV Q8H PRN PRN PRN Reason: NAUSEA/VOMITING Pantoprazole Sodium (Protonix) 20 mg PO DAILY [facility] Last Admin: 03/01/20 10:08 Dose: 20 mg Documented by: Polyethylene Glycol (Miralax) 17 gm PO DAILY PRN PRN PRN Reason: Constipation Prasugrel (Effient) 10 mg PO DAILY [facility] Last Admin: 03/01/20 10:07 Dose: 10 mg Documented by: Rivaroxaban (Xarelto) 15 mg PO DAILY [facility] Last Admin: 03/01/20 10:08 Dose: 15 mg Documented by: Senna/Docusate Sodium (Senokot-S, Zamzam-Colace) 2 tablet PO DAILY [facility] Last Admin: 03/01/20 10:08 Dose: 2 tablet Documented by: Simvastatin (Zocor) 40 mg PO QHS [facility] Last Admin: 02/29/20 21:21 Dose: Not Given Documented by: Sodium Chloride () 10 - 40 ml IV UD PRN PRN Reason: SALINE FLUSH STROKE Vital Signs/Narrative: Vital Signs Temp Pulse Resp BP Pulse Ox 03/01/20 08:10 98.3 F 98 14 138/102 H 95 03/01/20 07:00 80 Medical Necessity - Tobacco Use Smoking Status: Former smoker Assessment/Plan All Active Problems Cholelithiasis (Acute) Delirium (Acute) GRIS (acute kidney injury) (Acute) Fall (Acute) Decreased dorsalis pedis pulse (Acute) UTI (urinary tract infection) (Acute) Pneumococcal pneumonia (Acute) Sepsis (Acute) Hypoglycemia (Acute) Chest pain (Acute) Dehydration (Acute) UTI (urinary tract infection) (Acute) Acute delirium (Acute) Delirium (Acute) Sepsis (Acute) Acute cystitis (Acute) Influenza A (Resolved) 74 y/o admitted with a complaint of altered mental status and found to have hyperglycemia 1. Acute metabolic encephalopathy due to hyperglycemia and UTi * improving, patient more oriented today and complaining of LLE weakness * hyperglycemia has resolved. * on IV ceftriaxone * hydrate with IVF at 150cc/hr * start insulin drip and monitor blood sugar q1hrly. * start IV ceftriaxone and check urine cultures. * fall precautions * PT/OT consult * 2. UTI: as under 1 3. Hyperglycemia likely due to poorly controlled diabetes * resolved. * diabetes is poorly controlled. A1C is 11.7 * on insulin lantus 76 units daily * I doubt patient is compliant with her meds due to her confusion and weakness * ISS. Accuchecks ACHS * 4. Probable CVA * Alert was called yesterday as she had NIH stroke scale of 8. However repeat CT was negative. She is awaiting MRI of the brain, and MRA of the head and neck. * on PO aspirin, as well as prasugrel and xarelto. also on statin * neurology consulted * 2D echo ordered * 5. Hypertension: * On lisinopril and metoprolol * Also on Lasix. * 6. Hypothyroidism: On Synthroid. TSH was 2.48 7. Dementia: On memantine 8. CAD: On metoprolol and Prasugrel as well as Imdur. 9. Query A. fib: On Xarelto. 10. Hyperlipidemia: * On statin. lipid panel showed cholesterol of 209, with triglycerides of 254 and LDL of 131, with HDL of 27. * i am doubtful she has been compliant with her meds; will switch simvastatin to atorvstatin 40mg. * will need close follow up on outaptient basis. 11. Seizure disorder: On Keppra. DVT Prophylaxis: On Xarelto Inpatient E&M: [id number] [facility] Hosp L3
[2020-03-01] MEDS: Insulin Lispro 100 UNIT/ML INSULN.PEN 24 UNIT SC ×2 (12:26→17:11)
[2020-03-01 12:56] LABS: Bedside Glucose 199 mg/dL (70-110)
--- NOTE | 2020-03-01 14:45 | EKG12_ITS ---
Test Reason : AM Blood Pressure : / mmHG Vent. Rate : 082 BPM Atrial Rate : 078 BPM P-R Int : 000 ms QRS Dur : 134 ms QT Int : 432 ms P-R-T Axes : 000 -32 -03 degrees QTc Int : 504 ms Atrial fibrillation Left axis deviation Right bundle branch block Abnormal ECG When compared with ECG of 29-FEB-2020 10:35, MANUAL COMPARISON REQUIRED, DATA IS UNCONFIRMED Confirmed by TAM GALINDO, LORRAINE ([id number]), news video editor NICHELLE RUIZ ([id number]) on 03/07/2020 3:40:38 PM Referred By: KIP Confirmed By:LORRAINE TURCIOS MD
[2020-03-01 17:25] LABS: Bedside Glucose 122 mg/dL (70-110)
[2020-03-01] MEDS: Simvastatin 20 MG Tablet 40 MG PO (20:32)
[2020-03-02] VITALS (12 sets, daily range): BP systolic 105–176; BP diastolic 58–90; PULSE 81–107; RESP 14–16; TEMP 36.4–36.8; O2SAT 92–100; BMI 38.3
[2020-03-02 00:16] LABS: Bedside Glucose 114 mg/dL (70-110)
[2020-03-02 06:02] LABS: Absolute Lymphocyte Count 1.83 X10^3/uL (0.83-4.51); Absolute Neutrophil Count 5.8 X10^3/uL (2.0-7.7); Basophil# 0.05 X10^3/uL; Basophil% 0.6 % (0-1); Eosinophil# 0.29 X10^3/uL; Eosinophils% 3.4 % (0-5); Hematocrit 39.8 % (37-47); Hemoglobin 11.8 g/dL (12.0-15.0); Lymphocyte # 1.83 X10^3/ul (4.0); Lymphocyte % 21.2 % (19-41); Mean Corp Hgb Conc 29.6 g/dL (32-36); Mean Corpuscular Hgb 23.3 pg (27.0-32.0); Mean Corpuscular Volume 78.5 fL (81-99); Mean Platelet Vol. 12.1 fl (6.2-12.0); Monocyte# 0.65 X10^3/uL; Monocyte% 7.5 % (0-10); NRBC Flagged by Analyzer 0 % (0-5); Neutrophil # 5.78 X10^3/uL (2.7-7.7); Neutrophil % 66.8 % (47-70); Platelet Count 219 K/mm3 (150-450); RBC Distribution Width CV 16.3 % (11.6-14.6); RBC Distribution Width SD 45.9 fl (35.1-43.9); Red Blood Count 5.07 M/mm3 (4.2-5.4); White Blood Count 8.6 K/mm3 (4.4-11.0)
[2020-03-02] MEDS: Levothyroxine 50 MCG Tablet PO (06:25)
[2020-03-02 06:26] LABS: Anion Gap 6 (5-15); BUN 15 mg/dL (7-18); BUN/Creat Ratio 16.5 RATIO (10-20); Calcium,Total 8.7 mg/dL (8.5-10.1); Chloride 110 mmol/L (98-107); Creatinine, Serum 0.91 mg/dL (0.55-1.02); EST Glomerular Filtration Rate 64 mL/min (>60); Est Glom Filt Rate - Afr Amer 77 mL/min (>60); Estimated Creatinine Clearance 45.42 ml/min; Glucose 174 mg/dL (74-106); Potassium 3.8 mmol/L (3.5-5.1); Sodium Level 142 mmol/L (136-145)
[2020-03-02 07:00] LABS: Bedside Glucose 177 mg/dL (70-110)
--- NOTE | 2020-03-02 08:00 | MRI_ITS ---
STUDY: MRI BRAIN WITHOUT CONTRAST REASON FOR EXAM: Female, 74 years old. stroke, altered mental status, left sided weakness TECHNIQUE: Standardized multiplanar fat and water weighted pulse sequences were obtained. COMPARISON: CT 02/29/2020, MRI 05/29/2016 FINDINGS: There is mild cerebral atrophy with widening of the extra-axial spaces and ventricular dilatation. There are a limited number of small white matter hyperintensities, distributed throughout the deep white matter tracts of the cerebral hemispheres, consistent with mild chronic white matter ischemic changes. There is no evidence for recent intracranial ischemia or other cause of cytotoxic edema on diffusion weighted imaging (DWI). Normal T2* images of the brain without demonstrated susceptibility artifact. There is no demonstrated hemosiderin stain. Normal bilateral basal ganglia. Normal thalami. There is no extra-axial fluid accumulation. Normal flow voids within the major intracranial circulation suggesting patency by spin echo criteria. There is enlargement of the sella turcica with increased CSF within the sella and flattening of the pituitary gland consistent with an empty sellar syndrome. Normal infundibular stalk, hypothalamus, and optic chiasm. Normal tectal plate and pineal gland. Normal midbrain, sherice and medulla. Normal cerebellum. Normal basal cisterns. Normal bilateral temporal bones. Normal bilateral internal auditory canals. There are bilateral ocular lens implants with otherwise normal intraorbital contents. Normal visualized paranasal sinuses. Normal calvarium and skull base. Normal visualized soft tissue structures. Normal visualized upper cervical spine. MRI/Brain without Contrast IMPRESSION: Involutional changes of the brain, as described above. No acute infarct. Electronically Signed: Braxton Arredondo MD at 10:06 EDT Tel , Service support ,
--- NOTE | 2020-03-02 08:00 | MRI_ITS ---
STUDY: MRA NECK WITHOUT CONTRAST REASON FOR EXAM: Female, 74 years old. stroke, altered mental status, left sided weakness TECHNIQUE: Source images were obtained, MIPs were performed. The study was performed unenhanced. COMPARISON: 05/29/2016 FINDINGS: RIGHT CAROTID ARTERIES: Normal right common carotid artery (CCA). Normal right common carotid bulb. Normal origin of the right internal carotid (ICA) artery without a hemodynamically significant stenosis. Normal visualized cervical portion of the right internal carotid artery. Normal origin of the right external carotid artery (ECA). LEFT CAROTID ARTERIES: Normal left common carotid artery (CCA). Normal left common carotid bulb. Normal origin of the left internal carotid (ICA) artery without a hemodynamically significant stenosis. Normal visualized cervical portion of the left internal carotid artery. Normal origin of the left external carotid artery (ECA). VERTEBRAL ARTERIES: Normal antegrade flow within the bilateral vertebral artery without a hemodynamically significant stenosis. MRI/MRA Neck without Contrast IMPRESSION: Normal bilateral cervical carotid and vertebral arteries. Electronically Signed: Braxton Arredondo MD at 10:11 EDT Tel , Service support ,
--- NOTE | 2020-03-02 08:00 | MRI_ITS ---
STUDY: MRA OF THE HEAD WITHOUT CONTRAST REASON FOR EXAM: Female, 74 years old. stroke, altered mental status, lt weakness, lt facial droop TECHNIQUE: 3-D [id number] (TOF) imaging was performed with MIPs. The study was performed unenhanced. COMPARISON: None. FINDINGS: Normal bilateral petrous carotid arteries. Normal right cavernous carotid artery with a normal supraclinoid bifurcation. Normal left cavernous carotid artery with a normal supraclinoid bifurcation. There is non-visualization of the right A1 segment of the anterior cerebral arteries consistent with either aplastic development or an occlusion. Normal left A1 segments of the anterior cerebral artery. Normal intact anterior communicating artery (ACOM). Normal bilateral A2 segments of the anterior cerebral arteries. Normal right M1 and M2 segments of the middle cerebral arteries, with a normal M1 bifurcation. Normal left M1 and M2 segments of the middle cerebral arteries, with a normal M1 bifurcation. There is a persistent origin of the right posterior cerebral artery with absence of the P1 segment of the right posterior cerebral artery. Normal left posterior communicating artery (PCOM). Normal bilateral vertebral arteries. Normal basilar artery with a normal basilar bifurcation. The visualized bilateral superior cerebellar (SCA) arteries are normal. Normal bilateral P1, P2 and visualized P3 segments of the posterior cerebral arteries. There is no demonstrated aneurysm of the [place] of [place]. There is no major vessel occlusion or hemodynamically significant stenosis. There is no demonstrated abnormality of the visualized brain. MRI/MRA Head ONLY without Contrast IMPRESSION: Normal MRA of the head Electronically Signed: Braxton Arredondo MD at 10:01 EDT Tel , Service support ,
[2020-03-02] MEDS: Memantine Hydrochloride 5 MG Tablet PO ×2 (09:56→21:43)
[2020-03-02] MEDS: Lisinopril 10 MG Tablet PO (09:57)
[2020-03-02] MEDS: Pantoprazole Sodium 20 MG Tablet PO (09:57)
[2020-03-02] MEDS: Isosorbide Mononitrate 30 MG Tablet 90 MG PO (09:57)
[2020-03-02] MEDS: Metoprolol(XL)Succ 50 MG Tablet PO (09:57)
[2020-03-02] MEDS: Senna/Docusate Sodium 1 Tablet 2 TABLET PO (09:57)
[2020-03-02] MEDS: Aspirin 81 MG TAB.CHEW PO (09:58)
[2020-03-02] MEDS: Rivaroxaban 15 MG Tablet PO (09:58)
[2020-03-02] MEDS: Ceftriaxone 1 GM/50 ML BAG IV (10:15)
[2020-03-02] MEDS: 0.9% Saline Lock 10 ML Syringe IV (10:16)
--- NOTE | 2020-03-02 11:38 | CASEMGMT ---
Assessment- SW completed assessment with patient at bedside. Living situation- Patient lives alone in a first floor apartment with a ramp entrance. PCP: Dr Gottlieb with [facility] Specialists: [facility] but she cannot remember the name Pharmacy: [facility]: rollator, wheeled walker, lift chair, bedside commode, grab bars, shower chair, and medical alert button. ADL's/IADL's: Patient has her meds set up by nurse, she uses her rollator to get around, her aide helps with bathing, meals, and cleaning. Past SNF/rehab: [facility] Past HH: [facility] LW: No POA: No Plan: At this time based on patient's performance with therapy yesterday they are recommending SNF. Patient is now much less confused. SW was able to talk with her and she would prefer to go home and not a group home. SW told her we will see how she does with therapy today and decide what to do from there. Patient has Passport and Toshia Banda ([phone]) is her Sales Rep. She has a home health aide M-F 2 hours a day, medical alert button, and 5 meals a week from [facility]. Tonja SAVAGE MSW
[2020-03-02] MEDS: Insulin Lispro 100 UNIT/ML INSULN.PEN 24 UNIT SC ×2 (11:46→17:31)
[2020-03-02 11:56] LABS: Bedside Glucose 266 mg/dL (70-110)
--- NOTE | 2020-03-02 13:16 | PN_ITS ---
Subjective: Patient seen and examined. She has no complaints and feels well today. She now tells me that his left lower extremity weakness is chronic and she has been dealing with it for a long time. This is contrary from what she said yesterday when she said it was acute. She had no complaints. Review of systems otherwise negative. Labs and vitals reviewed. Blood pressure elevated at 175/85 this morning. Vitals/I&O's: Vital Signs Temp Pulse Resp BP Pulse Ox 97.6 F L 89 16 175/85 H 100 03/02/20 09:40 03/02/20 09:57 03/02/20 09:40 03/02/20 09:40 03/02/20 09:40 Oxygen Delivery Method Room Air Weight: 224 lb 6.889 oz Body Mass Index (BMI) 38.3 Finger Stick Blood Glucose 180 Intake and Output for Last 24 Hours 02/29/20 03/01/20 03/02/20 23:59 23:59 23:59 Intake Total 857.5 / 857.5 2797.5 / 2797.5 50 / 50 Balance 857.5 / 857.5 2797.5 / 2797.5 50 / 50 General: Alert, oriented x 3 HEENT: Atraumatic, PERRLA, EOMI, Normocephalic Oral: Dry Mucosa Neck: Supple, No JVD, Negative Carotid Bruits Lungs: Clear to auscultation, Normal air movement Cardiovascular: Regular rate, Regular Rhythm, Normal S1, Normal S2, No murmurs Abdomen: Bowel Sounds Present, Soft, Non Tender, Non-Distended, No Hepato- splenomegaly Extremities: No clubbing, No cyanosis, No edema, Capillary Refill Less than 3 Seconds Skin: No rashes, No breakdown Musculoskeletal: No Tenderness to Palpation of Joints or Extremities Lymphatic: No Cervical, Supraclavicular, or Inguinal Adenopathy Neurological: Cranial nerves II-XII grossly intact, power in LLE is 4/5, normal sensation to light touch and pain; Psych/Mental Status: normal affect Microbiology Past 72 Hours 02/29/20 12:00 Urine Catheter - Catheter Urine Culture - 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 Results 03/01/20 17:09: POC Glucose 122 H 03/02/20 00:06: POC Glucose 114 H 03/02/20 05:15: WBC 8.6, RBC 5.07, Hgb 11.8 L, Hct 39.8, MCV 78.5 L, MCH 23.3 L, MCHC 29.6 L, RDW Std Deviation 45.9 H, RDW Coeff of Candace 16.3 H, Plt Count 219, MPV 12.1 H, Immature Gran % (Auto) 0.500, Neut % (Auto) 66.8, Lymph % (Auto) 21.2, [place] % (Auto) 7.5, Eos % (Auto) 3.4, Baso % (Auto) 0.6, Absolute Neuts (auto) 5.8, Absolute Lymphs (auto) 1.83, Nucleated RBC % 0 03/02/20 05:15: Sodium 142, Potassium 3.8, Chloride 110 H, Carbon Dioxide 26.0, Anion Gap 6, BUN 15, Creatinine 0.91, Estim Creat Clear Calc 45.42, Est GFR (MDRD) Af Amer 77, Est GFR (MDRD) Non-Af 64, BUN/Creatinine Ratio 16.5, Glucose 174 H, Calcium 8.7 03/02/20 06:22: POC Glucose 177 H 03/02/20 11:44: POC Glucose 266 H Current Medications Acetaminophen (Tylenol) 650 mg PO Q6H PRN PRN PRN Reason: Pain Score 1-10/10 Aspirin (Aspirin, Baby) 81 mg PO DAILY@0800 [facility] Last Admin: 03/02/20 09:58 Dose: 81 mg Documented by: Dextrose (D50w Syringe) 0 gm IV X1 PRN; Protocol PRN Reason: HYPOGLYCEMIA Dextrose (D50w Syringe) 0 gm IV X1 PRN; Protocol PRN Reason: Hypoglycemia Fluticasone Propionate (Flonase Nasal [place]) 2 spray NASAL DAILY [facility] Last Admin: 03/02/20 09:56 Dose: Not Given Documented by: Glucagon () 1 mg IM .X1 PRN PRN Reason: Hypoglycemia Hydralazine HCl (Apresoline Iv) 5 mg IV Q30M PRN PRN Reason: to maintain BP goals Ceftriaxone Sodium (Rocephin) 1 gm in 50 mls @ 100 mls/hr IV Q24 [facility] Last Infusion: 03/02/20 10:52 Dose: Infused Documented by: Insulin Glargine (Lantus (Bkc)) 76 units SC DAILY [facility] Last Admin: 03/02/20 09:58 Dose: 76 units Documented by: Insulin Human Lispro (Humalog Kwikpen (Bkc)) 24 unit SC TIDCM [facility] Last Admin: 03/02/20 11:46 Dose: 24 units Documented by: Isosorbide Mononitrate (Imdur) 90 mg PO DAILY [facility] Last Admin: 03/02/20 09:57 Dose: 90 mg Documented by: Labetalol HCl (Trandate) 10 - 20 mg IV Q10M PRN PRN PRN Reason: to maintain BP goals Levothyroxine Sodium (Synthroid) 50 mcg PO DAILY@0600 [facility] Last Admin: 03/02/20 06:25 Dose: 50 mcg Documented by: Lisinopril (Zestril) 10 mg PO DAILY [facility] Last Admin: 03/02/20 09:57 Dose: 10 mg Documented by: Loratadine (Claritin) 10 mg PO DAILY PRN PRN Reason: ALLERGIES Memantine (Namenda) 5 mg PO BID [facility] Last Admin: 03/02/20 09:56 Dose: 5 mg Documented by: Metoprolol Succinate (Toprol Xl (Beta Susy)) 50 mg PO DAILY [facility] Last Admin: 03/02/20 09:57 Dose: 50 mg Documented by: Nitroglycerin (Nitrostat) 0.4 mg SUBLINGUAL Q5M PRN PRN Reason: CARDIAC/CHEST PAIN Ondansetron HCl (Zofran) 4 mg IV Q8H PRN PRN PRN Reason: NAUSEA/VOMITING Pantoprazole Sodium (Protonix) 20 mg PO DAILY [facility] Last Admin: 03/02/20 09:57 Dose: 20 mg Documented by: Polyethylene Glycol (Miralax) 17 gm PO DAILY PRN PRN PRN Reason: Constipation Prasugrel (Effient) 10 mg PO DAILY [facility] Last Admin: 03/02/20 09:56 Dose: 10 mg Documented by: Rivaroxaban (Xarelto) 15 mg PO DAILY [facility] Last Admin: 03/02/20 09:58 Dose: 15 mg Documented by: Senna/Docusate Sodium (Senokot-S, Zamzam-Colace) 2 tablet PO DAILY [facility] Last Admin: 03/02/20 09:57 Dose: 2 tablet Documented by: Simvastatin (Zocor) 40 mg PO QHS [facility] Last Admin: 03/01/20 20:32 Dose: 40 mg Documented by: Sodium Chloride () 10 - 40 ml IV UD PRN PRN Reason: SALINE FLUSH Last Admin: 03/02/20 10:16 Dose: 10 ml Documented by: STROKE Vital Signs/Narrative: Vital Signs Temp Pulse Resp BP Pulse Ox 03/02/20 09:57 89 03/02/20 09:40 97.6 F L 89 16 175/85 H 100 Medical Necessity - Tobacco Use Smoking Status: Former smoker Assessment/Plan All Active Problems Cholelithiasis (Acute) Delirium (Acute) GRIS (acute kidney injury) (Acute) Fall (Acute) Decreased dorsalis pedis pulse (Acute) UTI (urinary tract infection) (Acute) Pneumococcal pneumonia (Acute) Sepsis (Acute) Hypoglycemia (Acute) Chest pain (Acute) Dehydration (Acute) UTI (urinary tract infection) (Acute) Acute delirium (Acute) Delirium (Acute) Sepsis (Acute) Acute cystitis (Acute) Influenza A (Resolved) 74 y/o admitted with a complaint of altered mental status and found to have hyperglycemia 1. Acute metabolic encephalopathy due to hyperglycemia and UTi * resolved. patient now alert and oriented and able to carry on a conversation * on home dose of insulin 76 units daily * on IV ceftriaxone * PT/OT on board * fall precautions * * * 2. UTI: as under 1 3. Poorly controlled type 2 diabetes mellitus * due to noncompliance * diabetes is poorly controlled. A1C is 11.7 * on insulin lantus 76 units daily * ISS. Accuchecks ACHS * 4. LLE weakness * The stroke alert called as NIH stroke scale was 8. Repeat CT of the head was negative and she had MRI today which showed involutional changes of the brain as described above. No acute infarct. * Neurology reviewed patient today, and do not think it is a stroke * however, they recommend patient follow up with neurology on outpatient basis for EMG testing as this cannot be done via teleneurology * will do LLE USG to rule out DVT * 2D echo: EF of 70% with normal left ventricular size and function. Unable to assess diastolic function and no regional motion abnormalities seen. Moderate aortic stenosis. * On p.o. aspirin, Prasugrel and Xarelto as well as statin. * * 5. Hypertension: * On lisinopril and metoprolol * Also on Lasix. * 6. Hypothyroidism: On Synthroid. TSH was 2.48 7. Dementia: On memantine 8. CAD: On metoprolol and Prasugrel as well as Imdur. 9. A. fib: On Xarelto. 10. Hyperlipidemia: * on atorvastatin PO 40mg daily 11. Seizure disorder: On Keppra. DVT Prophylaxis: On Xarelto Disposition: patient agreeable to going to a rehab facility for short term. Inpatient E&M: 86828 Subs Hosp L2
--- NOTE | 2020-03-02 13:18 | CASEMGMT ---
MINAL spoke with patient again about going somewhere short term for rehab. She is in agreement. MINAL asked if she would like SW to check with [facility] since she has been there and she was not sure. She asked about the unit at [facility]. MINAL told her SW can check on their availability. MINAL also told her that if she went there she would only be able to stay 20 days. She was fine with this. MINAL called [facility] and left her a voice mail with referral. Tonja SAVAGE MSW
--- NOTE | 2020-03-02 13:42 | CASEMGMT ---
Addendum entered by Tonja Benavidez 03/02/20 13:53: MINAL also called Toshia Banda ([phone]) with [facility] notifying her of d/c plan. Tonja ROJAS Original Note: MINAL spoke with [facility] and she would have a bed for patient. She will start the pre-cert. MINAL notified patient and she asked MINAL to notify her daughter Cinthia. MINAL called Cinthia and left her a voice mail letting her know the d/c plan. Plan: [facility] pending insurance approval. Tonja ROJAS
--- NOTE | 2020-03-02 15:13 | VDLE_ITS ---
Reason For Study: Swelling RIGHT LEFT CFV is compressible, spontaneous, phasic, GSV is normal. competent and demonstrates normal CFV is compressible, spontaneous, phasic, augmentation. competent, and demonstrates normal Procedure augmentation. Exam performed portable in patient room. FV is compressible, spontaneous, phasic, A preliminary report was called and/or faxed competent and demonstrates normal to PCU. augmentation. POP V is compressible, spontaneous, phasic, competent and demonstrates normal augmentation. T/P Trunk is compressible. PTV is compressible. LT PerV is compressible. Interpretation Summary There is no evidence of left lower extremity deep vein thrombosis. Left great saphenous vein appears patent and compressible segmentally. Patent and compressible right common femoral vein Ordering Physician: Danae Coyle Referring Physician: Emerita Gottlieb Performed By: Rhea Elias RVT
[2020-03-02 17:36] LABS: Bedside Glucose 222 mg/dL (70-110)
[2020-03-02] MEDS: Simvastatin 20 MG Tablet 40 MG PO (21:43)
[2020-03-02] MEDS: Lidocaine 5% Patch 2 PATCH TOPICAL (21:43)
[2020-03-02 22:50] LABS: Bedside Glucose 78 mg/dL (70-110)
[2020-03-03] VITALS (7 sets, daily range): BP systolic 104–141; BP diastolic 55–68; PULSE 54–97; RESP 12–18; TEMP 36.6–36.8; O2SAT 93–100; BMI 38.3
[2020-03-03] MEDS: Levothyroxine 50 MCG Tablet PO (06:36)
[2020-03-03 06:40] LABS: Bedside Glucose 113 mg/dL (70-110)
[2020-03-03] MEDS: Isosorbide Mononitrate 30 MG Tablet 90 MG PO (09:15)
[2020-03-03] MEDS: Aspirin 81 MG TAB.CHEW PO (09:15)
[2020-03-03] MEDS: Pantoprazole Sodium 20 MG Tablet PO (09:16)
[2020-03-03] MEDS: Memantine Hydrochloride 5 MG Tablet PO (09:16)
[2020-03-03] MEDS: Rivaroxaban 15 MG Tablet PO (09:16)
[2020-03-03] MEDS: Lisinopril 10 MG Tablet PO (09:16)
[2020-03-03] MEDS: Senna/Docusate Sodium 1 Tablet 2 TABLET PO (09:16)
[2020-03-03] MEDS: Metoprolol(XL)Succ 50 MG Tablet PO (09:16)
[2020-03-03] MEDS: Insulin Lispro 100 UNIT/ML INSULN.PEN 24 UNIT SC ×2 (09:24→12:38)
[2020-03-03] MEDS: Ceftriaxone 1 GM/50 ML BAG IV (09:27)
[2020-03-03] MEDS: 0.9% Saline Lock 10 ML Syringe IV (09:27)
[2020-03-03 11:16] LABS: Bedside Glucose 302 mg/dL (70-110)
--- NOTE | 2020-03-03 11:55 | DCINST_ITS ---
You will use the following diet at home:: Cardiac Your food should be the consistency of: Regular Your liquids should be the consistency of: Regular/Thin Discharge Activity: Return to Normal Activity Weight Bearing Status: Weight bearing as tolerated Call your doctor if you observe: Fever of 101 or Higher, Shortness of breath, Dizziness, Uncontrolled pain Instructions: Hyperglycemia (High Blood Sugar), ED Diabetic Hyperglycemia, Understanding Urinary Tract Infections (UTIs) Additional Instructions: will need to follow up with a neurologist for outpatient EMG testing and workup for chronic LLE weakness Allergies/Adverse Reactions: Allergies atorvastatin calcium [From Lipitor] Allergy (Verified 11/13/19 10:08) dont remember codeine Allergy (Verified 11/13/19 10:08) Rash iodine Allergy (Verified 11/13/19 10:08) Rash Latex, Natural Rubber Allergy (Verified 11/13/19 10:08) Rash lovastatin Allergy (Verified 11/13/19 10:08) Rash rosuvastatin calcium [From Crestor] Allergy (Verified 11/13/19 10:08) rash\ naproxen [From Naprosyn] Adverse Reaction (Verified 11/13/19 10:08) Upset Stomach pregabalin [From Lyrica] Adverse Reaction (Verified 11/13/19 10:08) Upset Stomach Sulfa (Sulfonamide Antibiotics) Adverse Reaction (Verified 11/13/19 10:08) Upset Stomach Medications to take at Discharge Insulin Aspart [Novolog Flexpen] 24 units SC TIDCM 03/12/17 Insulin Degludec [Tresiba Flextouch U-100] 76 unit SQ DAILY 10/11/17 Metoprolol Succinate [Toprol Xl] 50 mg PO DAILY 10/11/17 Fluticasone 0.05% [Flonase Nasal [place]] 2 sprays NASAL DAILY 04/27/18 Lisinopril [Zestril] 10 mg PO DAILY 04/27/18 Omeprazole 20 mg PO DAILY 04/27/18 Polyethylene Glycol 3350 [Miralax] 17 gm PO DAILY PRN 04/27/18 Prasugrel HCl 10 mg PO DAILY 06/04/18 Rivaroxaban [Xarelto] 15 mg PO DAILY 06/04/18 Simvastatin [Zocor] 40 mg PO QHS 06/04/18 Cetirizine HCl [Zyrtec] 10 mg PO DAILY PRN 11/18/18 Duloxetine HCl 30 mg PO DAILY 11/18/18 Ketorolac Tromethamine [Acular] 1 drop OPHTHALMIC 4X/DAY 11/18/18 Lidocaine [Lidoderm Patch] 1 patch TOPICAL DAILY 11/18/18 Sennosides/Docusate Sodium [Senna Plus Tablet] 2 tab PO DAILY 11/18/18 prednisoLONE eye drops (1 mL) [Pred Forte eye drops (1 mL)] 1 drop EACH EYE 4X/DAY 11/18/18 Isosorbide Mononitrate [Imdur] 90 mg PO DAILY 02/29/20 Levothyroxine [Synthroid] 50 mcg PO DAILY 02/29/20 Memantine HCl [Memantine HCl ER] 14 mg PO DAILY 02/29/20 Oxycodone HCl/Acetaminophen [Endocet 5-325 Tablet] 1 ea PO PRN PRN 02/29/20 Cefdinir [Omnicef [equiv]] 300 mg PO Q12H #10 cap 03/03/20 The following prescriptions were given: Cefdinir [Omnicef [equiv]] 300 mg PO Q12H #10 cap Transmission Status: Pending to [facility], [place], [facility] [place] - [id number] Primary Care Physician: Emerita Gottlieb MD [Primary Care Provider] - Please follow up with your Primary Care Physician in: 1-2 weeks Test Results: Test results from this visit will be discussed in further detail at your follow- up appointment, if applicable. Proposed Discharge Date: 03/03/20
--- NOTE | 2020-03-03 11:57 | DS.PCM_ITS ---
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) s/p traumatic hematoma PVD (peripheral vascular disease) (Chronic) Wound of right lower extremity (Chronic) Migraine (Chronic) Hyperlipidemia (Chronic) Hypertension (Chronic) Benign essential hypertension (Chronic) CAD (coronary artery disease) (Chronic) Chronic CHF (Chronic) Chronic constipation (Chronic) Type II diabetes mellitus (Chronic) Morbid obesity (Chronic) Osteoarthritis (Chronic) Spondylosis (Chronic) History of urinary incontinence (Chronic) Chronic back pain (Chronic) Sleep apnea (Chronic) CKD (chronic kidney disease) stage 3, GFR 30-59 ml/min (Chronic) Hospital Course and Treatment Imaging Results: Diagnostic Data Chest X-Ray 02/29/20 10:50 IMPRESSION: No active disease. Electronically Signed: Braxton Arredondo MD at 11:07 EDT Tel , Service support , Brain CT 02/29/20 18:51 IMPRESSION: Chronic involutional changes of the brain. Findings are similar to the previous study. Electronically Signed: Bj Kitchen MD at 19:06 EDT , Service support , ADDENDUM: 02/29/20 1927 IMPRESSION: Chronic involutional changes of the brain. Findings are similar to the previous study. N.B. : The above information has been verbally conveyed by Bj Kitchen MD to Dr. Ana Cristina Stevens MD, on 02/29/2020 19:20:55 (ET). Electronically Signed: Bj Kitchen MD at 19:06 EDT , Service support , Brain MRI 03/02/20 08:00 IMPRESSION: Involutional changes of the brain, as described above. No acute infarct. Electronically Signed: Braxton Arredondo MD at 10:06 EDT Tel , Service support , Head MRA 03/02/20 08:00 IMPRESSION: Normal MRA of the head Electronically Signed: Braxton Arredondo MD at 10:01 EDT Tel , Service support , Neck MRA 03/02/20 08:00 IMPRESSION: Normal bilateral cervical carotid and vertebral arteries. Electronically Signed: Braxton Arredondo MD at 10:11 EDT Tel , Service support , neurology- SOC teleneurology Operations: None Procedures: 2-D Echocardiogram Summary of Care Provided: The patient is a 74 year old F with a past medical history as outlined was a dmitted from home with a complaint of altered mental status on 02/29/2020. She has a visiting nurse who goes home to help care for the patient and the called the squad for the patient this morning because she was noted to be very confused. Patient could not give any specific complaints and just says she felt very weak and tired at home. She does not remember exactly what happened at home that the squad was called. Her glucometer at home was broken and she had not been checking her sugars and his sugars have been running high. Unable to do comprehensive review of systems as patient is quite confused. On admission in the ED, glucose was 477. Vitals were otherwise stable. Chemistry showed sodium of 134 with chloride of 97 and bicarb of 29. Blood glucose per chemistry was 513 and troponin was less than 0.015. Creatinine was 1.26. CBC showed white cell count of 8.5 with hemoglobin of 12.5 and platelets of 216. CT of the brain done showed chronic involutional changes of the brain. Urinalysis showed 1+ bacteria. She was admitted to be managed for acute metabolic encephalopathy likely due to hypoglycemia from poorly controlled diabetes and UTI. She was started on IV ceftriaxone. She received 8 units of Humalog subcu in the ED. When she arrived on the floor, blood sugar was done in the 200s which she did not need any insulin drip. At home insulin dose of 76 units daily subcu of Lantus was restarted. He was put on insulin sliding scale and hydrated with IV fluids. Stroke alert was subsequently called as when she arrived on the floor, was told that her NIH stroke scale was 8. She had a repeat CT of the brain which was again negative. Urine culture Citrobacter freundii which was sensitive to ceftriaxone. MRI was ordered but patient had to have a pacemaker r eprogrammed by cardiology before she could have the MRI. Neurology was consulted as patient subsequently complained of left lower extrem she initially said it was acute but it turned out that was chronic as she had fallen off bleachers when she was much younger and at a high school game and had been having problems with her left lower extremity since then. MRI of the brain done showed only chronic involutional changes..MRA of the head and neck showed no evidence of any hemodynamically significant stenosis and showed patent intra-and extra cranial carotid arteries and patent vertebral arteries. 2D echo showed EF of 70% with mildly enlarged left atrium and moderate aortic stenosis. Patient subsequently did admit that she had not been compliant with her medication at home and her A1c came back at 11.7. Patient was counseled about the need for compliance and nutrition was consulted for dietary counseling. Patient was skilled by physical therapy as needed more therapy. Her mentation improved significantly and acute metabolic encephalopathy resolved. Patient was initially agreeable to going to a snf but subsequently said that she only wanted to go home as she did not think she would be happy in a snf even if it was short-term for intensive rehab. Patient was discharged home on 03/03/2020 and counseled to be compliant with her diabetes medications at other medications. She was discharged with a prescription for p.o. cefdinir 300 mg twice daily for 5 days to treat UTI. She is to follow-up with her primary care doctor within 1 to 2 weeks and is also to be referred to a neurologist by her PCP on outpatient basis for follow-up of her left lower extremity weakness as per neurology she would need EMG testing and possible muscle biopsy on outpatient basis as determined by neurology. Patient seen and examined prior to discharge. She felt well and had no complaints. She again said she wanted to go home and was not willing to consider going to a rehab facility. Review of systems is otherwise negative. Labs and vitals reviewed. Home medication reviewed and reconciled. o/e: Vital Signs Temp Pulse Resp BP Pulse Ox 97.8 F 89 16 104/55 L 98 03/03/20 13:01 03/03/20 13:01 03/03/20 13:01 03/03/20 13:01 03/03/20 13:01 General: Alert, oriented x 3 HEENT: Atraumatic, PERRLA, EOMI, Normocephalic Oral: Dry Mucosa Neck: Supple, No JVD, Negative Carotid Bruits Lungs: Clear to auscultation, Normal air movement Cardiovascular: Regular rate, Regular Rhythm, Normal S1, Normal S2, No murmurs Abdomen: Bowel Sounds Present, Soft, Non Tender, Non-Distended, No Hepato- splenomegaly Extremities: No clubbing, No cyanosis, No edema, Capillary Refill Less than 3 Seconds Skin: No rashes, No breakdown Musculoskeletal: No Tenderness to Palpation of Joints or Extremities Lymphatic: No Cervical, Supraclavicular, or Inguinal Adenopathy Neurological: Cranial nerves II-XII grossly intact, power in LLE is 4/5, normal sensation to light touch and pain; Psych/Mental Status: normal affect Plan as above. She is also to follow up with cardiology on outpatient basis o/a of moderate aortic stenosis as per 2D echo. - Physical Exam Vitals/I&O's: Vital Signs Temp Pulse Resp BP Pulse Ox 98.3 F 97 18 126/59 H 100 03/03/20 09:07 03/03/20 09:16 03/03/20 09:07 03/03/20 09:07 03/03/20 09:07 Oxygen Delivery Method Room Air Weight: 224 lb 6.889 oz Body Mass Index (BMI) 38.3 Finger Stick Blood Glucose 180 Intake and Output for Last 24 Hours 03/01/20 03/02/20 03/03/20 23:59 23:59 23:59 Intake Total 2797.5 / 2797.5 150 / 150 550 / 550 Balance 2797.5 / 2797.5 150 / 150 550 / 550 Microbiology Past 72 Hours 02/29/20 12:00 Urine Catheter - Catheter Urine Culture - Final Citrobacter freundii Laboratory Results 03/02/20 17:30: POC Glucose 222 H 03/02/20 21:42: POC Glucose 78 03/03/20 06:34: POC Glucose 113 H 03/03/20 11:09: POC Glucose 302 H Current Medications Acetaminophen (Tylenol) 650 mg PO Q6H PRN PRN PRN Reason: Pain Score 1-10/10 Aspirin (Aspirin, Baby) 81 mg PO DAILY@0800 [facility] Last Admin: 03/03/20 09:15 Dose: 81 mg Documented by: Dextrose (D50w Syringe) 0 gm IV X1 PRN; Protocol PRN Reason: Hypoglycemia Fluticasone Propionate (Flonase Nasal [place]) 2 spray NASAL DAILY [facility] Last Admin: 03/03/20 09:16 Dose: Not Given Documented by: Glucagon () 1 mg IM .X1 PRN PRN Reason: Hypoglycemia Hydralazine HCl (Apresoline Iv) 5 mg IV Q30M PRN PRN Reason: to maintain BP goals Ceftriaxone Sodium (Rocephin) 1 gm in 50 mls @ 100 mls/hr IV Q24 [facility] Last Infusion: 03/03/20 09:57 Dose: Infused Documented by: Insulin Glargine (Lantus ([facility])) 76 units SC DAILY [facility] Last Admin: 03/03/20 09:25 Dose: 76 units Documented by: Insulin Human Lispro (Humalog Kwikpen ([facility])) 24 unit SC TIDCM [facility] Last Admin: 03/03/20 09:24 Dose: 24 units Documented by: Isosorbide Mononitrate (Imdur) 90 mg PO DAILY [facility] Last Admin: 03/03/20 09:15 Dose: 90 mg Documented by: Labetalol HCl (Trandate) 10 - 20 mg IV Q10M PRN PRN PRN Reason: to maintain BP goals Levothyroxine Sodium (Synthroid) 50 mcg PO DAILY@0600 [facility] Last Admin: 03/03/20 06:36 Dose: 50 mcg Documented by: Lidocaine (Lidoderm Patch) 2 patch TOPICAL DAILY@2200 [facility]; Protocol Last Admin: 03/02/20 21:43 Dose: 2 patch Documented by: Lisinopril (Zestril) 10 mg PO DAILY [facility] Last Admin: 03/03/20 09:16 Dose: 10 mg Documented by: Loratadine (Claritin) 10 mg PO DAILY PRN PRN Reason: ALLERGIES Memantine (Namenda) 5 mg PO BID [facility] Last Admin: 03/03/20 09:16 Dose: 5 mg Documented by: Metoprolol Succinate (Toprol Xl (Beta Susy)) 50 mg PO DAILY [facility] Last Admin: 03/03/20 09:16 Dose: 50 mg Documented by: Nitroglycerin (Nitrostat) 0.4 mg SUBLINGUAL Q5M PRN PRN Reason: CARDIAC/CHEST PAIN Ondansetron HCl (Zofran) 4 mg IV Q8H PRN PRN PRN Reason: NAUSEA/VOMITING Pantoprazole Sodium (Protonix) 20 mg PO DAILY [facility] Last Admin: 03/03/20 09:16 Dose: 20 mg Documented by: Polyethylene Glycol (Miralax) 17 gm PO DAILY PRN PRN PRN Reason: Constipation Prasugrel (Effient) 10 mg PO DAILY [facility] Last Admin: 03/03/20 09:16 Dose: 10 mg Documented by: Rivaroxaban (Xarelto) 15 mg PO DAILY [facility] Last Admin: 03/03/20 09:16 Dose: 15 mg Documented by: Senna/Docusate Sodium (Senokot-S, Zamzam-Colace) 2 tablet PO DAILY [facility] Last Admin: 03/03/20 09:16 Dose: 2 tablet Documented by: Simvastatin (Zocor) 40 mg PO QHS [facility] Last Admin: 03/02/20 21:43 Dose: 40 mg Documented by: Sodium Chloride () 10 - 40 ml IV UD PRN PRN Reason: SALINE FLUSH Last Admin: 03/03/20 09:27 Dose: 10 ml Documented by: Discharge Diet: 1800 Calorie Control Diet Discharge Activity: Return to Normal Activity Weight Bearing Status: Weight bearing as tolerated Call your doctor if you observe: Fever of 101 or Higher, Shortness of breath, Dizziness, Uncontrolled pain Home Medications: Medications to take at Discharge Insulin Aspart [Novolog Flexpen] 24 units SC TIDCM 03/12/17 Insulin Degludec [Tresiba Flextouch U-100] 76 unit SQ DAILY 10/11/17 Metoprolol Succinate [Toprol Xl] 50 mg PO DAILY 10/11/17 Fluticasone 0.05% [Flonase Nasal [place]] 2 sprays NASAL DAILY 04/27/18 Lisinopril [Zestril] 10 mg PO DAILY 04/27/18 Omeprazole 20 mg PO DAILY 04/27/18 Polyethylene Glycol 3350 [Miralax] 17 gm PO DAILY PRN 04/27/18 Prasugrel HCl 10 mg PO DAILY 06/04/18 Rivaroxaban [Xarelto] 15 mg PO DAILY 06/04/18 Simvastatin [Zocor] 40 mg PO QHS 06/04/18 Cetirizine HCl [Zyrtec] 10 mg PO DAILY PRN 11/18/18 Duloxetine HCl 30 mg PO DAILY 11/18/18 Ketorolac Tromethamine [Acular] 1 drop OPHTHALMIC 4X/DAY 11/18/18 Lidocaine [Lidoderm Patch] 1 patch TOPICAL DAILY 11/18/18 Sennosides/Docusate Sodium [Senna Plus Tablet] 2 tab PO DAILY 11/18/18 prednisoLONE eye drops (1 mL) [Pred Forte eye drops (1 mL)] 1 drop EACH EYE 4X/DAY 11/18/18 Isosorbide Mononitrate [Imdur] 90 mg PO DAILY 02/29/20 Levothyroxine [Synthroid] 50 mcg PO DAILY 02/29/20 Memantine HCl [Memantine HCl ER] 14 mg PO DAILY 02/29/20 Oxycodone HCl/Acetaminophen [Endocet 5-325 Tablet] 1 ea PO PRN PRN 02/29/20 Cefdinir [Omnicef [equiv]] 300 mg PO Q12H #10 cap 03/03/20 Following Prescrptions Were Given to Patient: Cefdinir [Omnicef [equiv]] 300 mg PO Q12H #10 cap Transmission Status: Received by [facility] - [place] - [id number] Primary Care Physician: Emerita Gottlieb MD [Primary Care Provider] - Please follow up with your Primary Care Physician in: 1-2 weeks Please Follow Up With: Trip Forman MD When: 1-2 weeks Please Follow Up With: Kal Jacob MD When: 1-2 weeks Patient Instructions: Hyperglycemia (High Blood Sugar), Understanding Urinary Tract Infections (UTIs), ED Diabetic Hyperglycemia Disposition: Home with Home Health Minutes spent on discharge:: 45 Patient Condition:: Stable Medical Necessity - Tobacco Use Smoking Status: Former smoker Meaningful Use Info Meaningful Use Diagnoses (Choose all that apply): None applicable Inpatient E&M: 103[address] [facility]
--- NOTE | 2020-03-03 12:22 | CASEMGMT ---
Per Joycelyn Castillo RN, and [place] FONTAINE, pt no longer wants to go to SNF at this time. This RN CM to room to discuss HHC with pt at this time. Pt is A/Ox4 at this time. Pt is agreeable to [facility] as she has aides set up thru [facility] already. Call to Daria at [facility] and they are able to accept pt at this time. Referral faxed to [facility] at this time. Pt states no further concerns with going home at time of discharge. Philip DAS CM
--- NOTE | 2020-03-03 12:39 | CASEMGMT ---
Social Work Physician stating that pt requesting to return home instead of going to TCU. MINAL met with pt and discussed discharge plan. Pt stating she has been to TCU previously and at this time she is feeling stronger now than she did when she previously need TCU and feels she can return home at this time. Pt does receive services from [facility] and has aids 5xweek for 2 hours. Pt aware that aids will not be out to her house until Friday however pt feels she will be able to manage alone until then. Pt stating she now knows that she must take her medications and insulin as prescribed and she will do better at home. Phone call to Moreno at [facility] and informed pt would d/c today. Phone call to pt daughter Cinthia and left with new d/c plan. THIAGO Wilkerson CM to discuss home health services with pt. Lidia in TCU notified that pt will not be coming. D/C orders faxed to [facility]. Plan: D/C home with continued WELT BEATER from [facility] and [facility]. LEX Chilel
--- NOTE | 2020-03-07 13:57 | CASEMGMT ---
THIAGO DC PHONE CALL DC DATE: 03.03.2020 DC DISPOSITION: Home with HHC DC DIAGNOSIS: metabolic encephalopathy LACE/STRATA: 09/14 F/U APPTS MADE PRIOR TO DC: yes Attempted call to home phone. no answer. Pt to have [facility] on dc. Shahid IVYN RN ACM
== END 2020-03-03 13:58 | disposition home health service (06) | DRG 70 ==
LOC: ED 12:05 → PCU 12:47
PROVIDERS: Internal Medicine; Admitting Provider Student in an Organized Health Care Education/Training Program; Emergency Provider Emergency Medicine; PCP Internal Medicine; Visit Provider Student in an Organized Health Care Education/Training Program
DX: G93.41 Metabolic encephalopathy (principal); I63.9 Cerebral infarction, unspecified; N39.0 Urinary tract infection, site not specified; I13.0 Hypertensive heart and chronic kidney disease with heart failure and stage 1 through stage 4 chronic kidney disease, or unspecified chronic kidney disease; E11.65 Type 2 diabetes mellitus with hyperglycemia; E11.22 Type 2 diabetes mellitus with diabetic chronic kidney disease; I50.9 Heart failure, unspecified; N18.3 Chronic kidney disease, stage 3 (moderate); E11.51 Type 2 diabetes mellitus with diabetic peripheral angiopathy without gangrene; R29.810 Facial weakness; R47.1 Dysarthria and anarthria; R29.708 NIHSS score 8; R40.2430 Glasgow coma scale score 3-8, unspecified time; I48.91 Unspecified atrial fibrillation; I25.10 Atherosclerotic heart disease of native coronary artery without angina pectoris; E89.0 Postprocedural hypothyroidism; E78.5 Hyperlipidemia, unspecified; G47.30 Sleep apnea, unspecified; F32.9 Major depressive disorder, single episode, unspecified; F41.9 Anxiety disorder, unspecified; E66.01 Morbid (severe) obesity due to excess calories; Z68.39 Body mass index [BMI] 39.0-39.9, adult; Z79.899 Other long term (current) drug therapy; Z79.4 Long term (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 of insulin; Z79.01 Long term (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 of anticoagulants; Z87.891 Personal history of nicotine dependence; F03.90 Unspecified dementia, unspecified severity, without behavioral disturbance, psychotic disturbance, mood disturbance, and anxiety; G40.909 Epilepsy, unspecified, not intractable, without status epilepticus; H40.9 Unspecified glaucoma; Z91.041 Radiographic dye allergy status; Z88.8 Allergy status to other drugs, medicaments and biological substances; Z91.19 Patient's noncompliance with other medical treatment and regimen; Z91.14 Patient's other noncompliance with medication regimen
CPT/HCPCS: 36415; 70450; 70544; 70547; 70551; 71045; 80048; 80061; 80076; 81001; 82962; 83036; 83735; 83930; 84443; 84484; 85025; 85027; 85610; 85730; 87077; 87086; 87088; 87186; 92523; 92526; 92610; 93005; 93306; 93971; 94762; 97116; 97162; 97166; 97530; 97535; 97802; 97803; 99285; J7030; P9612; Q9957; A4216; C8929

== ENCOUNTER 2020-05-18 15:36 | Inpatient (IN) | payer MEDICARE, MEDICAID, SELFPAY ==
[2020-04-19 14:35] VITALS: BMI 38.3
[2020-05-18] VITALS (16 sets, daily range): BP systolic 91–154; BP diastolic 45–82; PULSE 77–112; RESP 16–26; TEMP 37.8–39; O2SAT 94–98; BMI 37.7; BMI 36.9
--- NOTE | 2020-05-18 15:52 | EKG12_ITS ---
Test Reason : EDEMA Blood Pressure : / mmHG Vent. Rate : 106 BPM Atrial Rate : 104 BPM P-R Int : 000 ms QRS Dur : 138 ms QT Int : 402 ms P-R-T Axes : 000 -33 008 degrees QTc Int : 533 ms Atrial fibrillation with rapid ventricular response with premature ventricular or aberrantly conducte d complexes Left axis deviation Right bundle branch block Abnormal ECG Confirmed by MARIANELA GALINDO, NAVEEN ([id number]), editor managing director WILLIS HAWKINS ([id number]) on 05/22/2020 9:37:12 AM Referred By: AMBIKA Confirmed By:CARMEN BEAR MD
--- NOTE | 2020-05-18 15:52 | CT_ITS ---
STUDY: CT BRAIN WITHOUT CONTRAST REASON FOR EXAM: Female, 74 years old. ALTERED MENTAL STATUS. Fever, confusion. Hx of bone cancer, HTN, HLD, diabetes and pacemaker RADIATION DOSAGE (If Supplied By Facility): CTDIvol = ( 44.99 ) mGy, DLP = ( 779.24 ) mGycm TECHNIQUE: Transaxial CT imaging of the brain was performed without administration of intravenous contrast material. Individualized dose optimization techniques were used for this CT. COMPARISON: 02/29/2020 FINDINGS: Normal soft tissue structures. There is hyperostosis frontalis internus. There is mild cerebral atrophy with widening of the extra-axial spaces and ventricular dilatation. There are areas of decreased attenuation within the white matter tracts of the supratentorial brain, consistent with microvascular disease changes. Normal basal ganglia and thalami. Normal brainstem. There is mild cerebellar atrophy. There is no intracranial hemorrhage. There are no findings of an acute ischemic infarction. Normal visualized paranasal sinuses. CT/Brain/Head without Contrast IMPRESSION: Chronic involutional changes of the brain. Electronically Signed: Jackie Zamorano MD at 17:45 EDT Tel , Service support ,
--- NOTE | 2020-05-18 15:54 | RAD_ITS ---
STUDY: X-RAY - RIGHT TIBIA AND FIBULA REASON FOR EXAM: Female, 74 years old. PT''S RIGHT FOOT HOT TO TOUCH, RED, PT''S TEMP PER SQUAD 101.5 TECHNIQUE: 4 view(s) of the tibia and fibula were obtained. COMPARISON: None. FINDINGS: There is demineralization of the tibia. There is demineralization of the fibula. There are degenerative changes of the right knee and ankle. There are vascular calcifications present. RAD/Tibia & Fibula 2 Views IMPRESSION: The mineralization of the tibia and fibula. Degenerative changes. Electronically Signed: Jackie Zamorano MD at 18:05 EDT Tel , Service support ,
--- NOTE | 2020-05-18 15:55 | ED.DCSUM_ITS ---
History of Present Illness Chief Complaint: Fever Informant: Patient, [employer] Narrative: Patient presents confused. She lives alone, was found by her daughter today confused with a red painful right lower leg. Details are unknown. Patient has scratches on her other leg and states that she thinks maybe her cat scratched her. Those were not bothering her. She had a fever of 101.5 per EMS prior to arrival here. History is limited due to her confusion. - Past Medical History (1) Atherosclerosis of coronary artery without angina pectoris Status: Chronic (2) Chronic diastolic (congestive) heart failure Status: Chronic (3) Essential (primary) hypertension Status: Chronic (4) History of permanent cardiac pacemaker placement Status: Chronic (5) Hyperlipidemia Status: Chronic (6) Longstanding persistent atrial fibrillation Status: Chronic (7) Nonrheumatic aortic (valve) stenosis Status: Chronic (8) Sick sinus syndrome Status: Chronic Past Medical History - Allergies and Home Meds Allergies/Adverse Reactions: Allergies atorvastatin calcium [From Lipitor] Allergy (Verified 11/13/19 10:08) dont remember codeine Allergy (Verified 11/13/19 10:08) Rash iodine Allergy (Verified 11/13/19 10:08) Rash Latex, Natural Rubber Allergy (Verified 11/13/19 10:08) Rash lovastatin Allergy (Verified 11/13/19 10:08) Rash rosuvastatin calcium [From Crestor] Allergy (Verified 11/13/19 10:08) rash\ naproxen [From Naprosyn] Adverse Reaction (Verified 11/13/19 10:08) Upset Stomach pregabalin [From Lyrica] Adverse Reaction (Verified 11/13/19 10:08) Upset Stomach Sulfa (Sulfonamide Antibiotics) Adverse Reaction (Verified 11/13/19 10:08) Upset Stomach Primary Care Physician: Emerita Gottlieb MD [Primary Care Provider] - Surgical History: hysterectomy, - - PCI x2, thyroidectomy for goiter, left lower extremity surgery for bone cancer, pacemaker, hysterectomy. Lives: Alone Smoking Status: Former smoker - Family History Maternal Family History: Family History (Last Reviewed 04/19/20 @ 14:[address] Trip Forman MD) Other Cancer Family History: Reports: - - History of alcoholic cirrhosis Paternal Family History: Family History (Last Reviewed 04/19/20 @ 14:[address] Trip Forman MD) Other Cancer Family History: Reports: Cancer - Her father had colon cancer. Sibling Family History: Family History (Last Reviewed 04/19/20 @ 14:[address] Trip Forman MD) Other Cancer Family History: Reports: Cancer - Her sister had ovarian cancer., Hypertension Review of Systems ROS: Unable to Obtain - limited due to confusion General: Reports: Fever, Malaise ENT: Denies: Bilateral ear pain, Rhinorrhea, Sore throat Cardiovascular: Denies: Chest pain Respiratory: Denies: Dyspnea Gastrointestinal: Denies: Abdominal pain, Nausea Musculoskeletal: Reports: Extremity Pain. Denies: Neck pain, Back pain Skin: Reports: Rash Neurological: Denies: Headache, Numbness Physical Exam Vital Signs/Narrative: Vital Signs Temp Pulse Resp BP Pulse Ox 05/18/20 15:44 100.0 F H 107 H 18 132/74 H 95 05/18/20 15:39 100.0 F H 94 18 132/74 H 95 Inital Vital Signs reviewed: Yes General: Well nourished, Well developed, No Acute Distress Head: Normocephalic, Atraumatic Eyes: Perrl, EOMI ENT: Moist mucous membranes, No rhinorrhea Neck: Supple, Nontender, No lymphadenopathy, No JVD Cardiovascular: Regular rate, Regular rhythm, No murmurs, Irregular. Negative for: Tachycardia Respiratory: No distress, CTA bilaterally, Chest nontender Abdomen: Soft, Nontender, Nondistended, Normal bowel sounds Back: Nontender, Normal Inspection Extremities: Tenderness - Throughout erythematous areas of the right lower extremity, which are blanching. No purpura, petechia, bullae. Mildly tender lymph node or 2 in the right inguinal group., - - Full range of motion passively throughout all joints without any difficulty. Compartments of the right lower leg are soft, but very tender throughout the erythematous area which is circumferential of the lower leg. Skin: Normal color, Rash - Very tender swollen nonfluctuant erythema throughout the right lower leg, does not include the foot, and is more medial than lateral. Seems to emanate from an old wound near the claros centrally. No abscess. No lymphangitis, but there is a couple separate areas of erythema that are also tender more proximally in the medial distal thigh., Trauma - Scabbed scratches and abrasions left claros and right claros. No sign of infection on the left side. Neurological: Alert, Cranial nerves II-XII grossly intact, Normal Strength, Normal Sensation, Confused, Disoriented - To time Psychological: Normal affect, Normal Mood Diagnostic/Tx/Re-eval Impressions Brain CT 05/18/20 15:52 IMPRESSION: Chronic involutional changes of the brain. Electronically Signed: Jackie Zamorano MD at 17:45 EDT Tel , Service support , Tibia/Fibula X-Ray 05/18/20 15:54 IMPRESSION: The mineralization of the tibia and fibula. Degenerative changes. Electronically Signed: Jackie Zamorano MD at 18:05 EDT Tel , Service support , Chest X-Ray 05/18/20 17:50 IMPRESSION: No acute cardiopulmonary process. Electronically Signed: Jackie Zamorano MD at 18:03 EDT Tel , Service support , 05/18/20 15:52 Brain/Head without Contrast [CT] Stat 05/18/20 15:54 Tibia & Fibula 2 Views [RAD] Stat 05/18/20 17:50 Chest 1 View (Portable) [RAD] Stat Laboratory Results 05/18/20 05/18/20 05/18/20 15:45 15:45 15:45 WBC 26.0 H RBC 4.98 Hgb 12.9 Hct 40.2 MCV 80.7 L MCH 25.9 L MCHC 32.1 RDW Std Deviation 48.1 H RDW Coeff of Candace 16.8 H Plt Count 205 MPV 12.6 H Immature Gran % (Auto) 1.200 H Neut % (Auto) 89.2 H Lymph % (Auto) 4.6 L [place] % (Auto) 4.8 Eos % (Auto) 0.0 Baso % (Auto) 0.2 Absolute Neuts (auto) 23.2 H Absolute Lymphs (auto) 1.20 Nucleated RBC % 0 Differential Comment Platelet Estimate ADEQUATE RBC Morphology NORM C+C Sodium 134 L Potassium 4.5 Chloride 98 Carbon Dioxide 30.0 Anion Gap 6 BUN 26 H Creatinine 1.61 H Estim Creat Clear Calc 25.67 Est GFR (MDRD) Af Amer 40 L Est GFR (MDRD) Non-Af 33 L BUN/Creatinine Ratio 16.1 Glucose 495 H* Lactic Acid 2.8 H* Calcium 9.2 Total Bilirubin 1.30 H AST 13 L ALT 17 Alkaline Phosphatase 99 Troponin I 0.021 Total Protein 7.9 Albumin 3.1 L Globulin 4.8 H Albumin/Globulin Ratio 0.6 L Urine Color Urine Clarity Urine pH Ur Specific [place] Pos Urine Protein Urine Glucose (UA) Urine Ketones Urine Occult Blood Urine Nitrite Urine Bilirubin Urine Urobilinogen Ur Leukocyte Esterase Urine RBC Urine WBC Ur Squamous Epith Cells Urine Bacteria Urine Mucus 05/18/20 16:31 WBC RBC Hgb Hct MCV MCH MCHC RDW Std Deviation RDW Coeff of [place] Plt Count MPV Immature Gran % (Auto) Neut % (Auto) Lymph % (Auto) [place] % (Auto) Eos % (Auto) Baso % (Auto) Absolute Neuts (auto) Absolute Lymphs (auto) Nucleated RBC % Differential Comment Platelet Estimate RBC Morphology Sodium Potassium Chloride Carbon Dioxide Anion Gap BUN Creatinine Estim Creat Clear Calc Est GFR (MDRD) Af Amer Est GFR (MDRD) Non-Af BUN/Creatinine Ratio Glucose Lactic Acid Calcium Total Bilirubin AST ALT Alkaline Phosphatase Troponin I Total Protein Albumin Globulin Albumin/Globulin Ratio Urine Color Yellow Urine Clarity Clear Urine pH 5.0 Ur Specific [place] Pos 1.015 Urine Protein 30 H Urine Glucose (UA) 1000 H Urine Ketones 5 H Urine Occult Blood Negative Urine Nitrite Negative Urine Bilirubin Negative Urine Urobilinogen Normal Ur Leukocyte Esterase Negative Urine RBC 0 SEEN Urine WBC 0 SEEN Ur Squamous Epith Cells 0 SEEN Urine Bacteria 0 SEEN Urine Mucus 0 SEEN - Rhythm Strip Rhythm Strip: A-fib Rate: 106 Ectopy: PVC(s) - EKG Initial EKG Interpretation: No Acute Injury Pattern, Atrial Fibrillation, RBBB Prior: Unchanged - Medical Decision Making Patient clearly has cellulitis of her right lower extremity, it is very tender, does not appear to be necrotizing fasciitis, the exam did not change significantly from examination to examination while here in the emergency department. She was empirically given Rocephin for this, since that would cover Bartonella henselae which is in the differential for this given the possibility of cat scratch disease, this could also be a small superficial wound that was secondarily infected with a more common bacterium such as Streptococcus, which Rocephin should also cover. I am less suspicious for MRSA, there does not appear to be an abscess. Imaging unremarkable, urinalysis shows glucose only, no infection, her hyperglycemia was treated, she was given fluids, and the plan is admission to the hospital. She was also given Tylenol for her fever. ED Disposition - Plan for ED Patient: Disposition: Acute [facility] Diagnosis: Severe sepsis, Cellulitis of right lower leg, Hyperglycemia due to type 2 diabetes mellitus, GRIS (acute kidney injury), Dehydration, Sepsis with metabolic encephalopathy Referrals: Emerita Gottlieb MD [Primary Care Provider] -
[2020-05-18 16:11] LABS: Absolute Neutrophil Count 23.2 X10^3/uL (2.0-7.7); Basophil# 0.05 X10^3/uL; Basophil% 0.2 % (0-1); Eosinophil# 0.01 X10^3/uL; Hematocrit 40.2 % (37-47); Hemoglobin 12.9 g/dL (12.0-15.0); Lymphocyte % 4.6 % (19-41); Mean Corp Hgb Conc 32.1 g/dL (32-36); Mean Corpuscular Hgb 25.9 pg (27.0-32.0); Mean Corpuscular Volume 80.7 fL (81-99); Mean Platelet Vol. 12.6 fl (6.2-12.0); Monocyte# 1.25 X10^3/uL; Monocyte% 4.8 % (0-10); NRBC Flagged by Analyzer 0 % (0-5); Neutrophil # 23.17 X10^3/uL (2.7-7.7); Neutrophil % 89.2 % (47-70); POSITIVE DIFFERENTIAL YES; Platelet Count 205 K/mm3 (150-450); RBC Distribution Width CV 16.8 % (11.6-14.6); RBC Distribution Width SD 48.1 fl (35.1-43.9); Red Blood Count 4.98 M/mm3 (4.2-5.4)
[2020-05-18 16:14] LABS: Differential Indicated SCAN CRITERIA MET
[2020-05-18] MEDS: Acetaminophen 500 MG Tablet 1000 MG PO (16:17)
--- NOTE | 2020-05-18 16:33 | ED.RN ---
lab acalled critical of glucose 495. dr toth
[2020-05-18 16:34] LABS: ALB/GLOB Ratio 0.6 RATIO (0.9-2.4); AST(SGOT) 13 U/L (15-37); Alanine Aminotransfer ALT/SGPT 17 U/L (13-56); Albumin, Serum 3.1 g/dL (3.2-5.0); Alkaline Phosphatase 99 U/L (45-117); Anion Gap 6 (5-15); BUN 26 mg/dL (7-18); BUN/Creat Ratio 16.1 RATIO (10-20); Calcium,Total 9.2 mg/dL (8.5-10.1); Chloride 98 mmol/L (98-107); Creatinine, Serum 1.61 mg/dL (0.55-1.02); EST Glomerular Filtration Rate 33 mL/min (>60); Est Glom Filt Rate - Afr Amer 40 mL/min (>60); Estimated Creatinine Clearance 25.67 ml/min; Globulin 4.8 g/dL (2.2-4.2); Glucose 495 mg/dL (74-106); Potassium 4.5 mmol/L (3.5-5.1); Protein, Total 7.9 g/dL (6.4-8.2); Sodium Level 134 mmol/L (136-145)
--- NOTE | 2020-05-18 16:38 | ED.RN ---
lab called critical of lctic acid 2.8 dr alcantara aware
[2020-05-18] MEDS: Ceftriaxone 1 GM/50 ML BAG IV (16:39)
[2020-05-18 16:40] LABS: Lactic Acid 2.8 mmol/L (0.4-1.9)
[2020-05-18 16:43] LABS: Bacteria 0 SEEN /hpf (None Seen); Mucous, Urine 0 SEEN /hpf (<or=2+); Red Blood Cells-Urine 0 SEEN /hpf (0-5); Squamous Epithelial Cells - UA 0 SEEN /hpf (5-10); White Blood Cells 0 SEEN /hpf (0-5)
[2020-05-18 16:53] LABS: Color, Urine Yellow (Yellow); Glucose, Dipstick 1000 mg/dl (Normal); Ketone-Dipstick 5 mg/dl (Negative); Leukocyte Esterase-Dipstick Negative /ul (Negative); Nitrite-Dipstick Negative (Negative); Occult Blood-Urine Negative /ul (Negative); Protein-Dipstick 30 mg/dl (Negative); Specific Gravity, Urine 1.015 (1.002-1.030); Urine Bilirubin Dipstick Negative (Negative); Urine Clarity Clear (Clear); Urine Urobilinogen Normal (Normal)
[2020-05-18 16:55] LABS: Platelet Estimate ADEQUATE (ADEQ); Red Cell Morphology NORM C+C NORMAL (NORM C&C)
[2020-05-18] MEDS: Insulin Lispro 100 UNIT/ML INSULN.PEN 10 UNIT SC (17:39)
--- NOTE | 2020-05-18 17:50 | RAD_ITS ---
STUDY: X-RAY CHEST REASON FOR EXAM: Female, 74 years old. SLUGGISH AND CONFUSED, PT''S RIGHT FOOT HOT TO TOUCH, RED, PT''S TEMP PER SQUAD 101.5 TECHNIQUE: Single frontal view of the chest. COMPARISON: 02/29/2020 FINDINGS: There is no new focal consolidation. There is a stable linear opacity within the left mid/lower lung which may reflect underlying atelectasis. There is a stable single lead cardiac pacer device in place. There is cardiomegaly. Normal mediastinum and susan. Normal visualized pulmonary arteries. There is atherosclerotic calcification of the aortic arch with tortuosity. Normal visualized thoracic spine. Normal visualized ribs, clavicles, and shoulders. There is no demonstrated abnormality of the visualized soft tissue structures of the upper abdomen. RAD/Chest 1 View (Portable) IMPRESSION: No acute cardiopulmonary process. Electronically Signed: Jackie Zamorano MD at 18:03 EDT Tel , Service support ,
--- NOTE | 2020-05-18 18:46 | PCM.HP.STD ---
<Steven Schneider - Last Filed: 05/18/20 18:46> Problem List (1) Severe sepsis Status: Acute (2) Cellulitis of right lower leg Status: Acute (3) Hyperglycemia due to type 2 diabetes mellitus Status: Acute (4) GRIS (acute kidney injury) Status: Acute (5) Sepsis with metabolic encephalopathy Status: Acute (6) History of permanent cardiac pacemaker placement Status: Chronic (7) Sick sinus syndrome Status: Chronic (8) Longstanding persistent atrial fibrillation Status: Chronic (9) History of coronary artery stent placement Status: Resolved Comment: WCU-KDW-Bbag LAD w/ 3.5 x 12 mm Taxus Express 10/23/2004; [id number] Inferolateral Marginal Branch w/ 3.0 x 9 mm [place] Stent 01/25/2011 @ [facility] (10) Right bundle branch block (RBBB) Status: Chronic (11) Chronic diastolic (congestive) heart failure Status: Chronic (12) Nonrheumatic aortic (valve) stenosis Status: Chronic (13) Essential (primary) hypertension Status: Chronic (14) Hyperlipidemia Status: Chronic (15) Bone cancer Status: Chronic History of Present Illness Date of Admission: 05/18/20 Chief Complaint: confusion The patient is a 74 year old F with past medical history as above who presented to the emergency room with confusion. The patient was found by her daughter today lying in bed confused and lethargic. It is unclear how long she was laying in bed, daughter expects it was several hours as she was incontinent of urine and there is a great deal of urine soaking the sheets. The patient has not been taking her insulin at home as she ran out of needles. Her daughter also noticed yesterday that she had started to have a small red area on her right leg concerning for cellulitis. This was first noticed yesterday, no events leading up to it. She has had infections in the past with multiple bacteria including strep agalactiae, staph simulans, strep mitis. The patient has not been taking care of herself at home and has been reluctant to leave for assisted living as she has cats to take care of. The cats have been scratching at her legs, no bites reported. She currently has no new acute wounds, she has old scabs. There is no open area or drainage, no appreciable fluid collection. The patient is confused in the emergency room, lethargic, slow to respond to questions. She is A and O x2 to person and place. She appears to have severe sepsis with right lower extremity cellulitis, fever, lactic acidosis, leukocytosis, tachycardia. She will be placed in ICU overnight. [] Past Medical History Past Medical History (Chronic Problems): Chronic Problems (Last Reviewed 04/19/20 @ 14:[address] Trip Forman MD) History of permanent cardiac pacemaker placement (Chronic 03/05/17) Sick sinus syndrome (Chronic) Longstanding persistent atrial fibrillation (Chronic) Atherosclerosis of coronary artery without angina pectoris (Chronic) Right bundle branch block (RBBB) (Chronic) Chronic diastolic (congestive) heart failure (Chronic) Nonrheumatic aortic (valve) stenosis (Chronic) Essential (primary) hypertension (Chronic) Hyperlipidemia (Chronic) Bone cancer (Chronic) Medical History: Medical History (Last Reviewed 04/19/20 @ 14:[address] Trip Forman MD) Sick sinus syndrome (Chronic) I49.5 Longstanding persistent atrial fibrillation (Chronic) I48.11 Atherosclerosis of coronary artery without angina pectoris (Chronic) I25.10 Right bundle branch block (RBBB) (Chronic) I45.10 Chronic diastolic (congestive) heart failure (Chronic) I50.32 Nonrheumatic aortic (valve) stenosis (Chronic) I35.0 Essential (primary) hypertension (Chronic) I10 Hyperlipidemia (Chronic) E78.5 Bone cancer (Chronic) C41.9 CKD (chronic kidney disease) stage 3, GFR 30-59 ml/min Chronic back pain M54.9, G89.29 Chronic constipation K59.09 Goiter E04.9 History of urinary incontinence Z87.898 Hypothyroidism E03.9 Morbid obesity E66.01 Osteoarthritis PVD (peripheral vascular disease) I73.9 AISHWARYA 02/2019 Mild Sleep apnea G47.30 Spondylosis M47.9 Type II diabetes mellitus E11.9 Cholelithiasis K80.20 Migraine (Resolved) G43.909 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 L97.912 s/p traumatic hematoma Wound of right lower extremity S81.801A Allergies atorvastatin calcium [From Lipitor] Allergy (Verified 11/13/19 10:08) dont remember codeine Allergy (Verified 11/13/19 10:08) Rash iodine Allergy (Verified 11/13/19 10:08) Rash Latex, Natural Rubber Allergy (Verified 11/13/19 10:08) Rash lovastatin Allergy (Verified 11/13/19 10:08) Rash rosuvastatin calcium [From Crestor] Allergy (Verified 11/13/19 10:08) rash\ naproxen [From Naprosyn] Adverse Reaction (Verified 11/13/19 10:08) Upset Stomach pregabalin [From Lyrica] Adverse Reaction (Verified 11/13/19 10:08) Upset Stomach Sulfa (Sulfonamide Antibiotics) Adverse Reaction (Verified 11/13/19 10:08) Upset Stomach Home Medications: Ambulatory Orders Medication Instructions Recorded Metoprolol Succinate [Toprol Xl] 50 mg PO DAILY 10/11/17 Prasugrel HCl 10 mg PO DAILY 06/04/18 Simvastatin [Zocor] 40 mg PO QHS 06/04/18 Cetirizine HCl [Zyrtec] 10 mg PO DAILY PRN 11/18/18 Duloxetine HCl 30 mg PO DAILY 11/18/18 Isosorbide Mononitrate [Imdur] 90 mg PO DAILY 02/29/20 Levothyroxine [Synthroid] 50 mcg PO DAILY 02/29/20 Memantine HCl [Memantine HCl ER] 14 mg PO DAILY 02/29/20 furosemide 20 mg tablet 20 mg PO BID tab 04/19/20 levetiracetam 500 mg tablet 500 mg PO BID tab 04/19/20 lisinopril 10 mg tablet 10 mg PO DAILY tab 04/19/20 Insulin Glargine [Lantus SoloStar 75 units SQ DAILY 05/18/20 Pen] Insulin Lispro [Humalog KwikPen] 24 units SQ TIDCM 05/18/20 Omeprazole [Prilosec] 20 mg PO DAILY 05/18/20 Sennosides/Docusate Sodium 1 tab PO DAILY 05/18/20 [Senexon-S 50-8.6 mg Tablet] Surgical History: Surgical History (Last Updated 04/19/20 @ 17:24 by Aurelia Soliz) History of permanent cardiac pacemaker placement (Chronic) Onset Date: 03/05/17 Z95.0 History of coronary artery stent placement (Resolved) Onset Date: 01/25/11 Z95.5 SVG-IIC-Mzba LAD w/ 3.5 x 12 mm Taxus Express 10/23/2004; [id number] Inferolateral Marginal Branch w/ 3.0 x 9 mm [place] Stent 01/25/2011 @ [facility] History of hysterectomy Z90.710 History of loop recorder Onset Date: 2013 Z98.890 History of thyroidectomy Z90.09 Surgical History: hysterectomy, - - PCI x2, thyroidectomy for goiter, left lower extremity surgery for bone cancer, pacemaker, hysterectomy. Psychiatric History: Anxiety, Depression [employer] History: No pertinent [employer] history Lives: Alone Smoking Status: Former smoker Tobacco Use: Non-smoker Alcohol: None Drugs: None - *Family History Maternal Family History: Family History (Last Reviewed 05/18/20 @ 18:50 by KALPANA Alfaro) Other Cancer History Items: - - History of alcoholic cirrhosis Paternal Family History: Family History (Last Reviewed 05/18/20 @ 18:50 by KALPANA Alfaro) Other Cancer History Items: Cancer - Her father had colon cancer. Sibling Family History: Family History (Last Reviewed 05/18/20 @ 18:50 by KALPANA Alfaro) Other Cancer History Items: Cancer - Her sister had ovarian cancer., Hypertension Review of Systems Constitutional: Reports: Fever, Malaise, Weakness, Fatigue. Denies: Chills, Weight Change HEENT: Denies: Head Aches, Sinus Congestion, Sinus Drainage Cardiovascular: Denies: Chest Pain, Chest Tightness, Heaviness, Light Headedness, Palpitations Respiratory: Denies: Cough, Shortness of Breath, Shortness of breath at rest, Shortness of breath upon exertion, Sputum production Gastrointestinal: Denies: Abdominal Pain, Diarrhea, Nausea, Vomiting Genitourinary: Reports: Incontinence. Denies: Dysuria, Hematuria, Hesitancy Musculoskeletal: Denies: Joint Pain, Joint Tenderness Skin: Denies: Lesions, Rash, Wounds Neurological: Reports: Confusion. Denies: Focal weakness, Numbness, Tingling Psychiatric: Denies: Anxiety, Depression, Homicidal Ideations, Suicidal Ideations Hematologic/ Lymphatic: Denies: Easy Bruising, Easy Bleeding VTE Information - Inpt Only VTE Present on Admission: No VTE Mechan Device Prophylaxis: None VTE Pharm Prophylaxis ordered?: Yes Patient Problems: Active and Suspected Problems (Last Reviewed 04/19/20 @ 14:[address] Trip Forman MD) Severe sepsis (Acute) Cellulitis of right lower leg (Acute) Hyperglycemia due to type 2 diabetes mellitus (Acute) GRIS (acute kidney injury) (Acute) Dehydration (Acute) Sepsis with metabolic encephalopathy (Acute) - Physical Exam Vitals/I&O's: Vital Signs Temp Pulse Resp BP Pulse Ox 101.2 F H 92 21 H 107/51 L 96 05/18/20 18:23 05/18/20 18:23 05/18/20 18:23 05/18/20 18:23 05/18/20 18:23 Oxygen Delivery Method Room Air Weight: 219 lb 12.814 oz Body Mass Index (BMI) 37.7 Finger Stick Blood Glucose 180 Intake and Output for Last 24 Hours 05/16/20 05/17/20 05/18/20 23:59 23:59 23:59 Intake Total 233.33 / 233.33 Balance 233.33 / 233.33 General: Alert, Oriented x3, Cooperative HEENT: Atraumatic, PERRLA, EOMI, Normocephalic Neck: Supple, No JVD, Negative Carotid Bruits Lungs: Clear to auscultation, Normal air movement Cardiovascular: Regular rate, No murmurs Abdomen: Bowel Sounds Present, Soft, Non Tender Extremities: No edema, Capillary Refill Less than 3 Seconds Skin: - - right anterior distal leg with erythema, warmth, swelling, tenderness. multiple scabs and healing abrasions. no appreciable fluid collection. Musculoskeletal: No Tenderness to Palpation of Joints or Extremities Neurological: Cranial nerves II-XII grossly intact Psych/Mental Status: Normal Affect, Appropriate, Alert and oriented to time, place, person, mood and affect Laboratory Results 05/18/20 15:45: WBC 26.0 H, RBC 4.98, Hgb 12.9, Hct 40.2, MCV 80.7 L, MCH 25.9 L, MCHC 32.1, RDW Std Deviation 48.1 H, RDW Coeff of Candace 16.8 H, Plt Count 205, MPV 12.6 H, Immature Gran % (Auto) 1.200 H, Neut % (Auto) 89.2 H, Lymph % (Auto) 4.6 L, [place] % (Auto) 4.8, Eos % (Auto) 0.0, Baso % (Auto) 0.2, Absolute Neuts (auto) 23.2 H, Absolute Lymphs (auto) 1.20, Nucleated RBC % 0, Differential Comment , Platelet Estimate ADEQUATE, RBC Morphology NORM C+C 05/18/20 15:45: Sodium 134 L, Potassium 4.5, Chloride 98, Carbon Dioxide 30.0, Anion Gap 6, BUN 26 H, Creatinine 1.61 H, Estim Creat Clear Calc 25.67, Est GFR (MDRD) Af Amer 40 L, Est GFR (MDRD) Non-Af 33 L, BUN/Creatinine Ratio 16.1, Glucose 495 H*, Calcium 9.2, Total Bilirubin 1.30 H, AST 13 L, ALT 17, Alkaline Phosphatase 99, Troponin I 0.021, Total Protein 7.9, Albumin 3.1 L, Globulin 4.8 H, Albumin/Globulin Ratio 0.6 L 05/18/20 15:45: Lactic Acid 2.8 H* 05/18/20 16:31: Urine Color Yellow, Urine Clarity Clear, Urine pH 5.0, Ur Specific [place] 1.015, Urine Protein 30 H, Urine Glucose (UA) 1000 H, Urine Ketones 5 H, Urine Occult Blood Negative, Urine Nitrite Negative, Urine Bilirubin Negative, Urine Urobilinogen Normal, Ur Leukocyte Esterase Negative, Urine RBC 0 SEEN, Urine WBC 0 SEEN, Ur Squamous Epith Cells 0 SEEN, Urine Bacteria 0 SEEN, Urine Mucus 0 SEEN Assessment/Plan All Active Problems (Last Reviewed 04/19/20 @ 14:[address] Trip Forman MD) Severe sepsis (Acute) Cellulitis of right lower leg (Acute) Hyperglycemia due to type 2 diabetes mellitus (Acute) GRIS (acute kidney injury) (Acute) Dehydration (Acute) Sepsis with metabolic encephalopathy (Acute) Noncompliance (Acute) Fatigue (Acute) History of coronary artery stent placement (Resolved 01/25/11) GRIS (acute kidney injury) (Resolved) Acute cystitis (Resolved) Acute delirium (Resolved) Chest pain (Resolved) Dehydration (Resolved) Delirium (Resolved) Delirium (Resolved) Fall (Resolved) Hypoglycemia (Resolved) Influenza A (Resolved) Migraine (Resolved) Pneumococcal pneumonia (Resolved) Sepsis (Resolved) Sepsis (Resolved) UTI (urinary tract infection) (Resolved) UTI (urinary tract infection) (Resolved) 1. Acute severe sepsis secondary to right lower extremity cellulitis-fever, leukocytosis, tachypnea, pulse greater than 90, lactic acidosis, elevated bili, GRIS. Patient received Rocephin in the emergency room. She will be placed on Unasyn. There is no area on the skin culture at this time, obtain blood cultures. UA is negative for infection, chest x-ray is clear. It is also concerning that she has had multiple cat scratches on her legs. Reportedly no cat bite. 2. Type 2 diabetes with hyperglycemia, obesity secondary to medication noncompliance-the patient ran out of needles and was not using her insulin. We will resume home insulin therapy and titrate to response. Dietitian consult. 3. Acute kidney injury secondary to severe sepsis-provide IV fluids, hold lisinopril, Lasix 4. Acute metabolic encephalopathy secondary to #1-treatment as above 5. History of A. fib, sick sinus syndrome-EKG shows atrial fibrillation. Patient is not on anticoagulation. Continue metoprolol. Rate currently in the 90s. Patient has pacemaker for sick sinus syndrome. 6. History of migraine -on Keppra 7. History of chronic diastolic congestive heart failure-hold Lasix, IV fluids for GRIS. 8.CAD -history of stents. Continue Effient, statin, Imdur, Toprol. 9. Hypothyroidism - synthroid. 10. Suspected dementia - patient on memantine. no clear documentation found at this time. DVT prophylaxis: Heparin DC planning: Patient has not been caring for self at home, daughter feels that the patient needs to go to assisted living however the patient has been reluctant, the daughter is open to short-term placement [place] [facility], however patient is confused at this time and cannot provide significant contribution to what she will be willing to do at discharge. This patient was seen by Steven Schneider PA-C under the supervision of Doctor Garcia. <Mariana Loredo - Last Filed: 05/18/20 20:08> History of Present Illness The patient is a 74 year old F [] Past Medical History Medical History: Medical History (Last Reviewed 04/19/20 @ 14:[address] Trip Forman MD) Sick sinus syndrome (Chronic) I49.5 Longstanding persistent atrial fibrillation (Chronic) I48.11 Atherosclerosis of coronary artery without angina pectoris (Chronic) I25.10 Right bundle branch block (RBBB) (Chronic) I45.10 Chronic diastolic (congestive) heart failure (Chronic) I50.32 Nonrheumatic aortic (valve) stenosis (Chronic) I35.0 Essential (primary) hypertension (Chronic) I10 Hyperlipidemia (Chronic) E78.5 Bone cancer (Chronic) C41.9 CKD (chronic kidney disease) stage 3, GFR 30-59 ml/min Chronic back pain M54.9, G89.29 Chronic constipation K59.09 Goiter E04.9 History of urinary incontinence Z87.898 Hypothyroidism E03.9 Morbid obesity E66.01 Osteoarthritis PVD (peripheral vascular disease) I73.9 AISHWARYA 02/2019 Mild Sleep apnea G47.30 Spondylosis M47.9 Type II diabetes mellitus E11.9 Cholelithiasis K80.20 Migraine (Resolved) G43.909 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 L97.912 s/p traumatic hematoma Wound of right lower extremity S81.801A Allergies atorvastatin calcium [From Lipitor] Allergy (Verified 11/13/19 10:08) dont remember codeine Allergy (Verified 11/13/19 10:08) Rash iodine Allergy (Verified 11/13/19 10:08) Rash Latex, Natural Rubber Allergy (Verified 11/13/19 10:08) Rash lovastatin Allergy (Verified 11/13/19 10:08) Rash rosuvastatin calcium [From Crestor] Allergy (Verified 11/13/19 10:08) rash\ naproxen [From Naprosyn] Adverse Reaction (Verified 11/13/19 10:08) Upset Stomach pregabalin [From Lyrica] Adverse Reaction (Verified 11/13/19 10:08) Upset Stomach Sulfa (Sulfonamide Antibiotics) Adverse Reaction (Verified 11/13/19 10:08) Upset Stomach Surgical History: Surgical History (Last Updated 04/19/20 @ 17:24 by Aurelia Soliz) History of permanent cardiac pacemaker placement (Chronic) Onset Date: 03/05/17 Z95.0 History of coronary artery stent placement (Resolved) Onset Date: 01/25/11 Z95.5 NLC-VRN-Rdot LAD w/ 3.5 x 12 mm Taxus Express 10/23/2004; [id number] Inferolateral Marginal Branch w/ 3.0 x 9 mm [place] Stent 01/25/2011 @ [facility] History of hysterectomy Z90.710 History of loop recorder Onset Date: 2013 Z98.890 History of thyroidectomy Z90.09 - *Family History Maternal Family History: Family History (Last Reviewed 05/18/20 @ 18:50 by KALPANA Alfaro) Other Cancer Paternal Family History: Family History (Last Reviewed 05/18/20 @ 18:50 by KALPANA Alfaro) Other Cancer Sibling Family History: Family History (Last Reviewed 05/18/20 @ 18:50 by KALPANA Alfaro) Other Cancer - Physical Exam Vitals/I&O's: Vital Signs Temp Pulse Resp BP Pulse Ox 100.7 F H 83 18 125/73 H 98 05/18/20 19:12 05/18/20 19:12 05/18/20 19:12 05/18/20 19:12 05/18/20 19:12 Oxygen Delivery Method Room Air Weight: 99.7 kg Body Mass Index (BMI) 37.7 Finger Stick Blood Glucose 438 Intake and Output for Last 24 Hours 05/16/20 05/17/20 05/18/20 23:59 23:59 23:59 Intake Total 550.00 / 550.00 Output Total 200 / 200 Balance 350.00 / 350.00 Laboratory Results 05/18/20 15:45: WBC 26.0 H, RBC 4.98, Hgb 12.9, Hct 40.2, MCV 80.7 L, MCH 25.9 L, MCHC 32.1, RDW Std Deviation 48.1 H, RDW Coeff of Candace 16.8 H, Plt Count 205, MPV 12.6 H, Immature Gran % (Auto) 1.200 H, Neut % (Auto) 89.2 H, Lymph % (Auto) 4.6 L, [place] % (Auto) 4.8, Eos % (Auto) 0.0, Baso % (Auto) 0.2, Absolute Neuts (auto) 23.2 H, Absolute Lymphs (auto) 1.20, Nucleated RBC % 0, Differential Comment , Platelet Estimate ADEQUATE, RBC Morphology NORM C+C 05/18/20 15:45: Sodium 134 L, Potassium 4.5, Chloride 98, Carbon Dioxide 30.0, Anion Gap 6, BUN 26 H, Creatinine 1.61 H, Estim Creat Clear Calc 25.67, Est GFR (MDRD) Af Amer 40 L, Est GFR (MDRD) Non-Af 33 L, BUN/Creatinine Ratio 16.1, Glucose 495 H*, Calcium 9.2, Total Bilirubin 1.30 H, AST 13 L, ALT 17, Alkaline Phosphatase 99, Troponin I 0.021, Total Protein 7.9, Albumin 3.1 L, Globulin 4.8 H, Albumin/Globulin Ratio 0.6 L 05/18/20 15:45: Lactic Acid 2.8 H* 05/18/20 16:31: Urine Color Yellow, Urine Clarity Clear, Urine pH 5.0, Ur Specific [place] 1.015, Urine Protein 30 H, Urine Glucose (UA) 1000 H, Urine Ketones 5 H, Urine Occult Blood Negative, Urine Nitrite Negative, Urine Bilirubin Negative, Urine Urobilinogen Normal, Ur Leukocyte Esterase Negative, Urine RBC 0 SEEN, Urine WBC 0 SEEN, Ur Squamous Epith Cells 0 SEEN, Urine Bacteria 0 SEEN, Urine Mucus 0 SEEN 05/18/20 19:21: POC Glucose 438 H Assessment/Plan This patient was seen in conjunction with KALPANA Alfaro. I have independently interviewed and examined the patient and reviewed pertinent historical, laboratory, and other data. Please refer to KALPANA Alfaro note for his patient's presentation, findings, and recommendations. I have reviewed and his note and concur with his documentation 74-year-old female with past medical history of type II DM, cognitive impairment, who lives alone at home comes in with altered mental status, fever and right lower extremity redness. Patient was confused yesterday, her blood sugar was elevated more than 500. Her daughter called the emergency squad. Patient refused to be admitted. Her daughter called to check on her today and she did not answer. She went to the house and found patient very lethargic and confused. She called the EMS. Daughter was at her bedside. Patient was awake, alert, answers questions and goes back to sleep In the ED, her temperature was 102.2F, heart rate 95, blood pressure 115/47, respiratory rate 22, SPO2 96% on room air. She denied any sick contact. BC count 26,000, hemoglobin 12.9, platelet count 205, sodium 134, potassium 4.5, chloride 98, bicarbonate 30, BUN 26, creatinine 1.61, blood glucose 495, lactic acid 2.8. UA was unremarkable Physical Exam: Gen: Looks in some discomfort, unkempt, not pale, not jaundiced, morbid obese CVS:HS I +II, regular, no murmurs RESP: Diminished at lung bases GI: BS present and normal, soft, nontender, no palpable organs EXT:Bilateral leg edema, +1, erythema of right lower leg, multiple cat scratches ASSESSMENT: 1. Severe sepsis 2. Right lower leg cellulitis 3. Multiple cat scratches 4. Acute metabolic encephalopathy, appears resolved at the time of exam 5. Hyperglycemia, uncontrolled type II DM 6. GRIS secondary #1 7. Chronic atrial fibrillation, status post pacemaker 8. Code status -DNR-CCA Plan: Admit to ICU IV fluids, IV antibiotics Follow-up on blood cultures Elevate right lower extremity Continue on home insulin, blood glucose checks, ISS Social work consult for cognitive screening, discharge planning I discussed goals of care with patient and daughter. I went on to explain in details the various types of CODE STATUS-full code, DNR CCA, DNR CC. I recommended appointing a healthcare power of compliance attorney. Patient chose to be a DNR CCA. She does not want to be kept on life support after cardiopulmonary arrest. Social work will contact daughter for living will and power of compliance attorney paperwork in am Time spent discussing CODE STATUS 18 minutes Inpatient E&M: 21864 Init Hosp L3 Procedures: 36941 Advncd Care Plan 30 Min
[2020-05-18 19:26] LABS: Bedside Glucose 438 mg/dL (70-110)
[2020-05-18 19:58] LABS: Reflex Lactate? Y
[2020-05-18] MEDS: 0.9% Normal Saline 1,000 ML 150 ML IV (20:06)
[2020-05-18 20:50] LABS: Bedside Glucose 419 mg/dL (70-110)
[2020-05-18] MEDS: Heparin Injection (Vial) 5,000 UNIT/ML VIAL 5000 UNIT SC (21:36)
[2020-05-18] MEDS: Simvastatin 20 MG Tablet 40 MG PO (21:36)
[2020-05-18] MEDS: levETIRAcetam 500 MG Tablet PO (21:36)
[2020-05-18] MEDS: Insulin Lispro 100 UNIT/ML INSULN.PEN SC (21:41)
[2020-05-18] MEDS: 0.9% Saline Lock 10 ML Syringe IV (21:46)
[2020-05-18 22:42] LABS: Lactic Acid 1.6 mmol/L (0.4-1.9)
[2020-05-19] VITALS (24 sets, daily range): BP systolic 91–133; BP diastolic 42–91; PULSE 68–98; RESP 14–26; TEMP 36.4–38.2; O2SAT 92–99
[2020-05-19] MEDS: CHLORHEXIDINE GLUC 2% CLOTH 1 EACH TOWELETTE TOPICAL (00:15)
[2020-05-19] MEDS: 0.9% Normal Saline 1,000 ML 150 ML IV (02:57)
[2020-05-19 04:25] LABS: ALB/GLOB Ratio 0.4 RATIO (0.9-2.4); AST(SGOT) 12 U/L (15-37); Alanine Aminotransfer ALT/SGPT 11 U/L (13-56); Albumin, Serum 1.8 g/dL (3.2-5.0); Alkaline Phosphatase 72 U/L (45-117); Anion Gap 6 (5-15); BUN 25 mg/dL (7-18); BUN/Creat Ratio 20.3 RATIO (10-20); Chloride 103 mmol/L (98-107); Creatinine, Serum 1.23 mg/dL (0.55-1.02); EST Glomerular Filtration Rate 45 mL/min (>60); Est Glom Filt Rate - Afr Amer 55 mL/min (>60); Globulin 4.5 g/dL (2.2-4.2); Glucose 339 mg/dL (74-106); Potassium 3.7 mmol/L (3.5-5.1); Protein, Total 6.3 g/dL (6.4-8.2); Sodium Level 133 mmol/L (136-145)
[2020-05-19 04:34] LABS: Absolute Lymphocyte Count 1.99 X10^3/uL (0.83-4.51); Absolute Neutrophil Count 15.4 X10^3/uL (2.0-7.7); Basophil# 0.05 X10^3/uL; Basophil% 0.3 % (0-1); Eosinophil# 0.03 X10^3/uL; Eosinophils% 0.2 % (0-5); Hematocrit 35.1 % (37-47); Hemoglobin 11.1 g/dL (12.0-15.0); Lymphocyte # 1.99 X10^3/ul (4.0); Lymphocyte % 10.5 % (19-41); Mean Corp Hgb Conc 31.6 g/dL (32-36); Mean Corpuscular Hgb 26.9 pg (27.0-32.0); Mean Platelet Vol. 12.6 fl (6.2-12.0); Monocyte# 1.36 X10^3/uL; Monocyte% 7.2 % (0-10); NRBC Flagged by Analyzer 0 % (0-5); Neutrophil # 15.35 X10^3/uL (2.7-7.7); Neutrophil % 81.1 % (47-70); POSITIVE COUNT YES; Platelet Count 166 K/mm3 (150-450); RBC Distribution Width SD 52.2 fl (35.1-43.9); Red Blood Count 4.13 M/mm3 (4.2-5.4); White Blood Count 18.9 K/mm3 (4.4-11.0)
[2020-05-19 04:42] LABS: Differential Indicated SCAN CRITERIA MET
[2020-05-19] MEDS: Heparin Injection (Vial) 5,000 UNIT/ML VIAL 5000 UNIT SC ×3 (05:29→22:16)
[2020-05-19] MEDS: Acetaminophen 325 MG Tablet 650 MG PO (05:29)
[2020-05-19] MEDS: Levothyroxine 50 MCG Tablet PO (05:30)
[2020-05-19 05:31] LABS: Hypochromasia RARE; Platelet Estimate ADEQUATE (ADEQ)
[2020-05-19 08:20] LABS: Bedside Glucose 297 mg/dL (70-110)
[2020-05-19] MEDS: Memantine Hydrochloride 5 MG Tablet PO ×2 (08:24→22:17)
[2020-05-19] MEDS: Senna/Docusate Sodium 1 Tablet PO (08:24)
[2020-05-19] MEDS: Isosorbide Mononitrate 30 MG Tablet 90 MG PO (08:24)
[2020-05-19] MEDS: Pantoprazole Sodium 20 MG Tablet PO (08:25)
[2020-05-19] MEDS: Metoprolol(XL)Succ 50 MG Tablet PO (08:26)
[2020-05-19] MEDS: levETIRAcetam 500 MG Tablet PO ×2 (08:26→22:17)
--- NOTE | 2020-05-19 11:07 | PN_ITS ---
<Steven Schneider - Last Filed: 05/19/20 11:07> Patient Problems: Active and Suspected Problems (Last Reviewed 04/19/20 @ 14:[address] Trip Forman MD) Severe sepsis (Acute) Cellulitis of right lower leg (Acute) Hyperglycemia due to type 2 diabetes mellitus (Acute) GRIS (acute kidney injury) (Acute) Dehydration (Acute) Sepsis with metabolic encephalopathy (Acute) Reason for Visit: RLE cellulitis, encephalopathy Subjective: Pt denies subjective fever/chills. Fever overnight. RLE pain ongoing but improved. Pt more alert and now oriented x 3. Somewhat lethargic but improved vs last night. No nausea/vomiting/diarrhea. Pt does not remember the events of last night. Vitals/I&O's: Vital Signs Temp Pulse Resp BP Pulse Ox 99.5 F H 75 18 100/57 L 95 05/19/20 10:00 05/19/20 10:00 05/19/20 10:00 05/19/20 10:00 05/19/20 10:00 Oxygen Delivery Method Room Air Weight: 216 lb 11.43 oz Body Mass Index (BMI) 36.9 Finger Stick Blood Glucose 438 Intake and Output for Last 24 Hours 05/17/20 05/18/20 05/19/20 23:59 23:59 23:59 Intake Total 662.00 / 722.00 1120 / 1120 Output Total 225 / 325 400 / 400 Balance 437.00 / 397.00 720 / 720 General: Alert, Oriented x3, Cooperative, Lethargic HEENT: Atraumatic, PERRLA, EOMI, Normocephalic Neck: Supple, No JVD, Negative Carotid Bruits Lungs: Clear to auscultation, Normal air movement Cardiovascular: Regular rate, No murmurs Abdomen: Bowel Sounds Present, Soft, Non Tender, Obese Extremities: No edema, Capillary Refill Less than 3 Seconds Skin: - - RLE erythema, warmth, tenderness. erythema receding from demarcations. Musculoskeletal: No Tenderness to Palpation of Joints or Extremities Neurological: Cranial nerves II-XII grossly intact Psych/Mental Status: Normal Affect, Appropriate, Alert and oriented to time, place, person, mood and affect Laboratory Results 05/18/20 15:45: WBC 26.0 H, RBC 4.98, Hgb 12.9, Hct 40.2, MCV 80.7 L, MCH 25.9 L , MCHC 32.1, RDW Std Deviation 48.1 H, RDW Coeff of Candace 16.8 H, Plt Count 205, MPV 12.6 H, Immature Gran % (Auto) 1.200 H, Neut % (Auto) 89.2 H, Lymph % (Auto) 4.6 L, [place] % (Auto) 4.8, Eos % (Auto) 0.0, Baso % (Auto) 0.2, Absolute Neuts (auto) 23.2 H, Absolute Lymphs (auto) 1.20, Nucleated RBC % 0, Differential Comment , Platelet Estimate ADEQUATE, RBC Morphology NORM C+C 05/18/20 15:45: Sodium 134 L, Potassium 4.5, Chloride 98, Carbon Dioxide 30.0, Anion Gap 6, BUN 26 H, Creatinine 1.61 H, Estim Creat Clear Calc 25.67, Est GFR (MDRD) Af Amer 40 L, Est GFR (MDRD) Non-Af 33 L, BUN/Creatinine Ratio 16.1, Glucose 495 H*, Calcium 9.2, Total Bilirubin 1.30 H, AST 13 L, ALT 17, Alkaline Phosphatase 99, Troponin I 0.021, Total Protein 7.9, Albumin 3.1 L, Globulin 4.8 H, Albumin/Globulin Ratio 0.6 L 05/18/20 15:45: Lactic Acid 2.8 H* 05/18/20 16:31: Urine Color Yellow, Urine Clarity Clear, Urine pH 5.0, Ur Specific Kinnear 1.015, Urine Protein 30 H, Urine Glucose (UA) 1000 H, Urine Ketones 5 H, Urine Occult Blood Negative, Urine Nitrite Negative, Urine Bilirubin Negative, Urine Urobilinogen Normal, Ur Leukocyte Esterase Negative, Urine RBC 0 SEEN, Urine WBC 0 SEEN, Ur Squamous Epith Cells 0 SEEN, Urine Bacteria 0 SEEN, Urine Mucus 0 SEEN 05/18/20 19:21: POC Glucose 438 H 05/18/20 20:20: Lactic Acid 1.6 05/18/20 20:20: Ammonia 17.0 05/18/20 20:45: POC Glucose 419 H 05/19/20 03:50: WBC 18.9 H, RBC 4.13 L, Hgb 11.1 L, Hct 35.1 L, MCV 85.0 D, MCH 26.9 L, MCHC 31.6 L, RDW Std Deviation 52.2 H, RDW Coeff of Candace 17.0 H, Plt Count 166, MPV 12.6 H, Immature Gran % (Auto) 0.700, Neut % (Auto) 81.1 H, Lymph % (Auto) 10.5 L, [place] % (Auto) 7.2, Eos % (Auto) 0.2, Baso % (Auto) 0.3, Absolute Neuts (auto) 15.4 H, Absolute Lymphs (auto) 1.99, Nucleated RBC % 0, Differential Comment , Platelet Estimate ADEQUATE, Hypochromasia RARE 05/19/20 03:50: Sodium 133 L, Potassium 3.7, Chloride 103, Carbon Dioxide 24.0, Anion Gap 6, BUN 25 H, Creatinine 1.23 H, Estim Creat Clear Calc 33.60, Est GFR (MDRD) Af Amer 55 L, Est GFR (MDRD) Non-Af 45 L, BUN/Creatinine Ratio 20.3 H, Glucose 339 H, Calcium 8.0 L, Total Bilirubin 0.70, AST 12 L, ALT 11 L, Alkaline Phosphatase 72, Total Protein 6.3 L, Albumin 1.8 L, Globulin 4.5 H, Albumin/Globulin Ratio 0.4 L 05/19/20 08:15: POC Glucose 297 H Current Medications Acetaminophen (Tylenol) 650 mg PO Q6H PRN PRN PRN Reason: Pain Score 1-10/Temp > 100.7 F Last Admin: 05/19/20 05:29 Dose: 650 mg Documented by: Bisacodyl (Dulcolax) 5 mg PO DAILY PRN PRN PRN Reason: Constipation Chlorhexidine Gluconate () 1 each TOPICAL DAILY [facility] Last Admin: 05/19/20 00:15 Dose: 1 each Documented by: Dextrose (D50w Syringe) 0 gm IV X1 PRN; Protocol PRN Reason: Hypoglycemia Glucagon () 1 mg IM .X1 PRN PRN Reason: Hypoglycemia Heparin Sodium (Porcine) (Heparin Na) 5,000 unit SC Q8 [facility] Last Admin: 05/19/20 05:29 Dose: 5,000 unit Documented by: Ampicillin Sodium/Sulbactam (Sodium 3 gm/ Sodium Chloride) 112 mls @ 150 mls/hr IV Q12 [facility] Last Infusion: 05/18/20 22:25 Dose: Infused Documented by: Sodium Chloride () 250 mls @ 15 mls/hr IV .[id number] PRN PRN Reason: Saline Flush Sodium Chloride () 250 mls @ 15 mls/hr IV .[id number] PRN PRN Reason: Additional IVPB Infusion Insulin Glargine (Lantus (Bkc)) 75 units SC DAILY [facility] Insulin Human Lispro (Humalog Kwikpen (Bk)) 0 unit SC ACHS [facility]; Protocol Last Admin: 05/19/20 11:05 Dose: Not Given Documented by: Insulin Human Lispro (Humalog Kwikpen (Bk)) 24 unit SC TIDAC [facility] Last Admin: 05/19/20 11:06 Dose: Not Given Documented by: Isosorbide Mononitrate (Imdur) 90 mg PO DAILY [facility] Last Admin: 05/19/20 08:24 Dose: 90 mg Documented by: Levetiracetam (Keppra Tablet) 500 mg PO BID [facility] Last Admin: 05/19/20 08:26 Dose: 500 mg Documented by: Levothyroxine Sodium (Synthroid) 50 mcg PO DAILY@0600 [facility] Last Admin: 05/19/20 05:30 Dose: 50 mcg Documented by: Magnesium Hydroxide (Milk Of Magnesia) 30 ml PO DAILY PRN PRN PRN Reason: Constipation Memantine (Namenda) 5 mg PO BID [facility] Last Admin: 05/19/20 08:24 Dose: 5 mg Documented by: Metoprolol Succinate (Toprol Xl (Beta Susy)) 50 mg PO DAILY [facility] Last Admin: 05/19/20 08:26 Dose: 50 mg Documented by: Pantoprazole Sodium (Protonix) 20 mg PO DAILY [facility] Last Admin: 05/19/20 08:25 Dose: 20 mg Documented by: Prasugrel (Effient) 10 mg PO DAILY [facility] Last Admin: 05/19/20 08:25 Dose: 10 mg Documented by: Senna/Docusate Sodium (Senokot-S, Zamzam-Colace) 1 tablet PO DAILY [facility] Last Admin: 05/19/20 08:24 Dose: 1 tablet Documented by: Simvastatin (Zocor) 40 mg PO QHS [facility] Last Admin: 05/18/20 21:36 Dose: 40 mg Documented by: Sodium Chloride () 10 - 40 ml IV UD PRN PRN Reason: SALINE FLUSH Last Admin: 05/18/20 21:46 Dose: 10 ml Documented by: STROKE Vital Signs/Narrative: Vital Signs Temp Pulse Resp BP Pulse Ox 05/19/20 10:00 99.5 F H 75 18 100/57 L 95 05/19/20 09:00 99.6 F H 75 20 H 102/50 L 94 05/19/20 08:39 97.6 F L 78 14 119/58 L 96 05/19/20 08:26 76 05/19/20 07:25 92 05/19/20 07:10 80 Medical Necessity - Tobacco Use Smoking Status: Former smoker Tobacco Use: Non-smoker Assessment/Plan All Active Problems (Last Reviewed 04/19/20 @ 14:[address] Trip Forman MD) Severe sepsis (Acute) Cellulitis of right lower leg (Acute) Hyperglycemia due to type 2 diabetes mellitus (Acute) GRIS (acute kidney injury) (Acute) Dehydration (Acute) Sepsis with metabolic encephalopathy (Acute) Noncompliance (Acute) Fatigue (Acute) History of coronary artery stent placement (Resolved 01/25/11) GRIS (acute kidney injury) (Resolved) Acute cystitis (Resolved) Acute delirium (Resolved) Chest pain (Resolved) Dehydration (Resolved) Delirium (Resolved) Delirium (Resolved) Fall (Resolved) Hypoglycemia (Resolved) Influenza A (Resolved) Migraine (Resolved) Pneumococcal pneumonia (Resolved) Sepsis (Resolved) Sepsis (Resolved) UTI (urinary tract infection) (Resolved) UTI (urinary tract infection) (Resolved) 1. Acute severe sepsis secondary to right lower extremity cellulitis- fever improved, WBCs improved, erythema and pain improved. Continue unasyn. Pt to PCU. 2. Type 2 diabetes with hyperglycemia, obesity secondary to medication noncompliance-the patient ran out of needles and was not using her insulin. We will resume home insulin therapy and titrate to response. Dietitian consult. -increased SSI. 3. Acute kidney injury secondary to severe sepsis-improved. resume lisinopril and lasix when appropriate. 4. Acute metabolic encephalopathy secondary to #1-treatment as above. Improved today. 5. History of A. fib, sick sinus syndrome-EKG shows atrial fibrillation. Patient is not on anticoagulation. Continue metoprolol. Rate improved. Pt has Pacemaker for SSS. 6. History of migraine -on Keppra 7. History of chronic diastolic congestive heart failure-held Lasix for GRIS. 8.CAD -history of stents. Continue Effient, statin, Imdur, Toprol. 9. Hypothyroidism - synthroid. 10. Suspected dementia - patient on memantine. no clear documentation found at this time. DVT prophylaxis: Heparin DC planning: Pt doing poorly at home, not taking medications correctly, not caring for self. Likely some underlying dementia. Pt would benefit from SNF. This patient was seen by Steven Schneider PA-C under the supervision of Doctor Antonino <Antoine Muñiz - Last Filed: 05/19/20 12:36> Subjective: Feels well. Patient was noted to be somnolent by nursing earlier today the patient is very talkative at this time. Patient states that her cats are now the culprit of her developing cellulitis of the lower extremities and that it is her who really digs and when she scratches her legs. States that she scratches her legs as well as her hips but nowhere else. She is concerned that her daughter may take her cats away. Vitals/I&O's: Vital Signs Temp Pulse Resp BP Pulse Ox 37.3 C H 87 16 98/64 98 05/19/20 12:00 05/19/20 12:00 05/19/20 12:00 05/19/20 12:00 05/19/20 12:00 Oxygen Delivery Method Room Air Weight: 98.3 kg Body Mass Index (BMI) 36.9 Finger Stick Blood Glucose 438 Intake and Output for Last 24 Hours 05/17/20 05/18/20 05/19/20 23:59 23:59 23:59 Intake Total 662.00 / 722.00 2232 / 2232 Output Total 225 / 325 400 / 400 Balance 437.00 / 397.00 1832 / 1832 General: Alert, Cooperative HEENT: Atraumatic, Normocephalic Skin: - - RLE erythema, warmth, tenderness. erythema receding from demarcations. Scabbed over lesions. No active open wounds that I can appreciate at this time. Psych/Mental Status: Normal Affect, Appropriate Laboratory Results 05/18/20 15:45: WBC 26.0 H, RBC 4.98, Hgb 12.9, Hct 40.2, MCV 80.7 L, MCH 25.9 L , MCHC 32.1, RDW Std Deviation 48.1 H, RDW Coeff of Candace 16.8 H, Plt Count 205, MPV 12.6 H, Immature Gran % (Auto) 1.200 H, Neut % (Auto) 89.2 H, Lymph % (Auto) 4.6 L, [place] % (Auto) 4.8, Eos % (Auto) 0.0, Baso % (Auto) 0.2, Absolute Neuts (auto) 23.2 H, Absolute Lymphs (auto) 1.20, Nucleated RBC % 0, Differential Comment , Platelet Estimate ADEQUATE, RBC Morphology NORM C+C 05/18/20 15:45: Sodium 134 L, Potassium 4.5, Chloride 98, Carbon Dioxide 30.0, Anion Gap 6, BUN 26 H, Creatinine 1.61 H, Estim Creat Clear Calc 25.67, Est GFR (MDRD) Af Amer 40 L, Est GFR (MDRD) Non-Af 33 L, BUN/Creatinine Ratio 16.1, Glucose 495 H*, Calcium 9.2, Total Bilirubin 1.30 H, AST 13 L, ALT 17, Alkaline Phosphatase 99, Troponin I 0.021, Total Protein 7.9, Albumin 3.1 L, Globulin 4.8 H, Albumin/Globulin Ratio 0.6 L 05/18/20 15:45: Lactic Acid 2.8 H* 05/18/20 16:31: Urine Color Yellow, Urine Clarity Clear, Urine pH 5.0, Ur Specific Kin[place] 1.015, Urine Protein 30 H, Urine Glucose (UA) 1000 H, Urine Ketones 5 H, Urine Occult Blood Negative, Urine Nitrite Negative, Urine Bilirubin Negative, Urine Urobilinogen Normal, Ur Leukocyte Esterase Negative, Urine RBC 0 SEEN, Urine WBC 0 SEEN, Ur Squamous Epith Cells 0 SEEN, Urine Bacteria 0 SEEN, Urine Mucus 0 SEEN 05/18/20 19:21: POC Glucose 438 H 05/18/20 20:20: Lactic Acid 1.6 05/18/20 20:20: Ammonia 17.0 05/18/20 20:45: POC Glucose 419 H 05/19/20 03:50: WBC 18.9 H, RBC 4.13 L, Hgb 11.1 L, Hct 35.1 L, MCV 85.0 D, MCH 26.9 L, MCHC 31.6 L, RDW Std Deviation 52.2 H, RDW Coeff of Candace 17.0 H, Plt Count 166, MPV 12.6 H, Immature Gran % (Auto) 0.700, Neut % (Auto) 81.1 H, Lymph % (Auto) 10.5 L, [place] % (Auto) 7.2, Eos % (Auto) 0.2, Baso % (Auto) 0.3, Absolute Neuts (auto) 15.4 H, Absolute Lymphs (auto) 1.99, Nucleated RBC % 0, Differential Comment , Platelet Estimate ADEQUATE, Hypochromasia RARE 05/19/20 03:50: Sodium 133 L, Potassium 3.7, Chloride 103, Carbon Dioxide 24.0, Anion Gap 6, BUN 25 H, Creatinine 1.23 H, Estim Creat Clear Calc 33.60, Est GFR (MDRD) Af Amer 55 L, Est GFR (MDRD) Non-Af 45 L, BUN/Creatinine Ratio 20.3 H, Glucose 339 H, Calcium 8.0 L, Total Bilirubin 0.70, AST 12 L, ALT 11 L, Alkaline Phosphatase 72, Total Protein 6.3 L, Albumin 1.8 L, Globulin 4.5 H, Albumin/Globulin Ratio 0.4 L 05/19/20 08:15: POC Glucose 297 H 05/19/20 11:09: POC Glucose 265 H Current Medications Acetaminophen (Tylenol) 650 mg PO Q6H PRN PRN PRN Reason: Pain Score 1-10/Temp > 100.7 F Last Admin: 05/19/20 05:29 Dose: 650 mg Documented by: Bisacodyl (Dulcolax) 5 mg PO DAILY PRN PRN PRN Reason: Constipation Chlorhexidine Gluconate () 1 each TOPICAL DAILY [facility] Last Admin: 05/19/20 00:15 Dose: 1 each Documented by: Dextrose (D50w Syringe) 0 gm IV X1 PRN; Protocol PRN Reason: Hypoglycemia Glucagon () 1 mg IM .X1 PRN PRN Reason: Hypoglycemia Heparin Sodium (Porcine) (Heparin Na) 5,000 unit SC Q8 [facility] Last Admin: 05/19/20 05:29 Dose: 5,000 unit Documented by: Ampicillin Sodium/Sulbactam (Sodium 3 gm/ Sodium Chloride) 112 mls @ 150 mls/hr IV Q12 [facility] Last Infusion: 05/19/20 12:24 Dose: Infused Documented by: Sodium Chloride () 250 mls @ 15 mls/hr IV .[id number] PRN PRN Reason: Saline Flush Sodium Chloride () 250 mls @ 15 mls/hr IV .[id number] PRN PRN Reason: Additional IVPB Infusion Insulin Glargine (Lantus (Bkc)) 75 units SC DAILY [facility] Last Admin: 05/19/20 11:20 Dose: 75 u Documented by: Insulin Human Lispro (Humalog Kwikpen ([facility])) 0 unit SC ACHS [facility]; Protocol Last Admin: 05/19/20 11:21 Dose: 9 u Documented by: Insulin Human Lispro (Humalog Kwikpen ([facility])) 24 unit SC TIDAC [facility] Last Admin: 05/19/20 11:22 Dose: 24 u Documented by: Isosorbide Mononitrate (Imdur) 90 mg PO DAILY [facility] Last Admin: 05/19/20 08:24 Dose: 90 mg Documented by: Levetiracetam (Keppra Tablet) 500 mg PO BID [facility] Last Admin: 05/19/20 08:26 Dose: 500 mg Documented by: Levothyroxine Sodium (Synthroid) 50 mcg PO DAILY@0600 [facility] Last Admin: 05/19/20 05:30 Dose: 50 mcg Documented by: Magnesium Hydroxide (Milk Of Magnesia) 30 ml PO DAILY PRN PRN PRN Reason: Constipation Memantine (Namenda) 5 mg PO BID [facility] Last Admin: 05/19/20 08:24 Dose: 5 mg Documented by: Metoprolol Succinate (Toprol Xl (Beta Suys)) 50 mg PO DAILY [facility] Last Admin: 05/19/20 08:26 Dose: 50 mg Documented by: Pantoprazole Sodium (Protonix) 20 mg PO DAILY [facility] Last Admin: 05/19/20 08:25 Dose: 20 mg Documented by: Prasugrel (Effient) 10 mg PO DAILY [facility] Last Admin: 05/19/20 08:25 Dose: 10 mg Documented by: Senna/Docusate Sodium (Senokot-S, Zamzam-Colace) 1 tablet PO DAILY [facility] Last Admin: 05/19/20 08:24 Dose: 1 tablet Documented by: Simvastatin (Zocor) 40 mg PO QHS [facility] Last Admin: 05/18/20 21:36 Dose: 40 mg Documented by: Sodium Chloride () 10 - 40 ml IV UD PRN PRN Reason: SALINE FLUSH Last Admin: 05/18/20 21:46 Dose: 10 ml Documented by: STROKE Vital Signs/Narrative: Vital Signs Temp Pulse Resp BP BP Pulse Ox 05/19/20 12:00 37.3 C H 87 16 98/64 98 05/19/20 10:00 37.5 C H 75 18 100/57 L 95 05/19/20 09:00 37.6 C H 75 20 H 102/50 L 94 05/19/20 08:39 36.4 C L 78 14 119/58 L 96 Assessment/Plan Patient seen and examined independently. Data reviewed. I agree with the above note by the physician vet assistant. 1. Severe sepsis: Secondary to cellulitis 2. Right lower extremity cellulitis: Appears to be improving as it has withdrawn from the lines of demarcation. On Unasyn and will continue. Patient states that she developed a cellulitis from her scratching cat. 3. Metabolic encephalopathy: Secondary to sepsis and cellulitis. Resolved this time patient is very animated and alert and oriented at this time. Inpatient E&M: [id number] Subs Hosp L2
[2020-05-19] MEDS: Insulin Lispro 100 UNIT/ML INSULN.PEN SC ×2 (11:21→17:29)
[2020-05-19] MEDS: Insulin Lispro 100 UNIT/ML INSULN.PEN 24 UNIT SC ×2 (11:22→17:29)
[2020-05-19 11:31] LABS: Bedside Glucose 265 mg/dL (70-110)
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
--- NOTE | 2020-05-19 16:02 | CASEMGMT ---
Social Work SW met with pt in room and introduced self and role of SW. Pt is alert and willing to talk with SW. Pt able to state that she is in [facility] but she is not certain what is wrong with her. Pt also able to state that is is 2020 but not the day. BIMS cognitive assessment completed with score of 5/15. Pt admits that her children are concerned because she is having some memory problems. Pt states that she knows what is going on but admits to forgetfulness. When SW inquired about not taking meds at home pt stating that it is not that she won't take them, but that she cannot always remember to take them and that taking her meds and insulin is spotty due to forgetfulness. Pt able to converse appropriately and easily with SW about home situation and family but is forgetful at times. Discussed discharge plans and pt states she knows her daughters would not want her to return home and have been talking about assisted living. SW discussed SNF placement with pt and she is agreeable. MINAL reviewed list of in network facilities with pt and pt choosing [facility]. SW also discussed living will and Health care POA with pt and Pt would like to complete HCPOA naming her daughter Cinthia Kumari. Pt choosing not to list and first and second alternate. Discussed Living will with pt and she states she needs to think about this before signing a document. Phone call to Rola at [facility] and they do have beds available. Referral faxed. Will await determination. Pt will be here over the weekend as pt will need precert. Phone call to Cinthia and ELIZABETH byrne informing of HCPOA appointment and referral to [facility]. Plan: [facility], pending acceptance and precert LEX Chilel
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
[2020-05-19 17:05] LABS: Bedside Glucose 180 mg/dL (70-110)
[2020-05-19] MEDS: Nystatin Powder 15gm Bottle 1 APPLIC TOPICAL (22:16)
[2020-05-19] MEDS: 0.9% Saline Lock 10 ML Syringe IV (22:17)
[2020-05-19] MEDS: Simvastatin 20 MG Tablet 40 MG PO (22:17)
[2020-05-19 22:45] LABS: Bedside Glucose 112 mg/dL (70-110)
[2020-05-20] VITALS (10 sets, daily range): BP systolic 103–143; BP diastolic 60–69; PULSE 70–79; RESP 16–18; TEMP 36.5–37.1; O2SAT 94–99
[2020-05-20] MEDS: Heparin Injection (Vial) 5,000 UNIT/ML VIAL 5000 UNIT SC ×3 (05:06→21:33)
[2020-05-20] MEDS: Nystatin Powder 15gm Bottle 1 APPLIC TOPICAL ×3 (05:06→21:32)
[2020-05-20] MEDS: Levothyroxine 50 MCG Tablet PO (05:07)
[2020-05-20 06:31] LABS: Absolute Lymphocyte Count 1.96 X10^3/uL (0.83-4.51); Absolute Neutrophil Count 7.3 X10^3/uL (2.0-7.7); Basophil# 0.04 X10^3/uL; Basophil% 0.4 % (0-1); Eosinophil# 0.23 X10^3/uL; Eosinophils% 2.2 % (0-5); Hematocrit 34.9 % (37-47); Hemoglobin 10.9 g/dL (12.0-15.0); Lymphocyte # 1.96 X10^3/ul (4.0); Lymphocyte % 18.9 % (19-41); Mean Corp Hgb Conc 31.2 g/dL (32-36); Mean Corpuscular Hgb 25.9 pg (27.0-32.0); Mean Corpuscular Volume 82.9 fL (81-99); Mean Platelet Vol. 13.2 fl (6.2-12.0); Monocyte# 0.78 X10^3/uL; Monocyte% 7.5 % (0-10); NRBC Flagged by Analyzer 0 % (0-5); Neutrophil # 7.32 X10^3/uL (2.7-7.7); Neutrophil % 70.4 % (47-70); Platelet Count 147 K/mm3 (150-450); RBC Distribution Width CV 16.6 % (11.6-14.6); RBC Distribution Width SD 50.4 fl (35.1-43.9); Red Blood Count 4.21 M/mm3 (4.2-5.4); White Blood Count 10.4 K/mm3 (4.4-11.0)
[2020-05-20 07:07] LABS: Anion Gap 4 (5-15); BUN 27 mg/dL (7-18); BUN/Creat Ratio 24.8 RATIO (10-20); Calcium,Total 8.6 mg/dL (8.5-10.1); Chloride 107 mmol/L (98-107); Creatinine, Serum 1.09 mg/dL (0.55-1.02); EST Glomerular Filtration Rate 52 mL/min (>60); Est Glom Filt Rate - Afr Amer 63 mL/min (>60); Estimated Creatinine Clearance 37.92 ml/min; Glucose 102 mg/dL (74-106); Potassium 3.4 mmol/L (3.5-5.1); Sodium Level 141 mmol/L (136-145)
[2020-05-20] MEDS: Isosorbide Mononitrate 30 MG Tablet 90 MG PO (08:18)
[2020-05-20] MEDS: Senna/Docusate Sodium 1 Tablet PO (08:19)
[2020-05-20] MEDS: Metoprolol(XL)Succ 50 MG Tablet PO (08:19)
[2020-05-20] MEDS: Pantoprazole Sodium 20 MG Tablet PO (08:20)
[2020-05-20] MEDS: levETIRAcetam 500 MG Tablet PO ×2 (08:20→21:32)
[2020-05-20] MEDS: Memantine Hydrochloride 5 MG Tablet PO ×2 (08:21→21:34)
[2020-05-20 10:15] LABS: Bedside Glucose 111 mg/dL (70-110)
[2020-05-20] MEDS: 0.9% Saline Lock 10 ML Syringe IV ×2 (10:54→21:30)
[2020-05-20] MEDS: Insulin Lispro 100 UNIT/ML INSULN.PEN SC (11:07)
[2020-05-20] MEDS: Insulin Lispro 100 UNIT/ML INSULN.PEN 24 UNIT SC (11:07)
[2020-05-20 11:26] LABS: Bedside Glucose 223 mg/dL (70-110)
--- NOTE | 2020-05-20 13:17 | PCM.PN.HOSP ---
<Steven Schneider - Last Filed: 05/20/20 13:17> Patient Problems: Active and Suspected Problems (Last Reviewed 04/19/20 @ 14:[address] Trip Forman MD) Severe sepsis (Acute) Cellulitis of right lower leg (Acute) Hyperglycemia due to type 2 diabetes mellitus (Acute) GRIS (acute kidney injury) (Acute) Dehydration (Acute) Sepsis with metabolic encephalopathy (Acute) Reason for Visit: RLE cellulitis Subjective: No fever/chills. Ongoing RLE pain but improved. Erythema improved. No SOB/Cough. No Nausea/vomiting/diarrhea. Pt agreeable to SNF at [place]. Vitals/I&O's: Vital Signs Temp Pulse Resp BP Pulse Ox 97.7 F L 79 18 120/60 95 05/20/20 08:31 05/20/20 11:00 05/20/20 08:31 05/20/20 08:31 05/20/20 08:31 Oxygen Delivery Method Room Air Weight: 217 lb 9.54 oz Body Mass Index (BMI) 36.9 Finger Stick Blood Glucose 438 Intake and Output for Last 24 Hours 05/18/20 05/19/20 05/20/20 23:59 23:59 23:59 Intake Total 662.00 / 722.00 2694 / 2694 532 / 532 Output Total 225 / 325 700 / 700 Balance 437.00 / 397.00 1993 532 / 532 General: Alert, Oriented x3, Cooperative HEENT: Atraumatic, PERRLA, EOMI, Normocephalic Neck: Supple, No JVD, Negative Carotid Bruits Lungs: Clear to auscultation, Normal air movement Cardiovascular: Regular rate, No murmurs Abdomen: Bowel Sounds Present, Soft, Non Tender Extremities: No edema, Capillary Refill Less than 3 Seconds Skin: - - erythema receding. tender to light palp. no open areas or collections. Musculoskeletal: No Tenderness to Palpation of Joints or Extremities Neurological: Cranial nerves II-XII grossly intact Psych/Mental Status: Normal Affect, Appropriate, Alert and oriented to time, place, person, mood and affect Laboratory Results 05/19/20 16:58: POC Glucose 180 H 05/19/20 22:06: POC Glucose 112 H 05/20/20 05:53: WBC 10.4, RBC 4.21, Hgb 10.9 L, Hct 34.9 L, MCV 82.9, MCH 25.9 L, MCHC 31.2 L, RDW Std Deviation 50.4 H, RDW Coeff of Candace 16.6 H, Plt Count 147 L, MPV 13.2 H, Immature Gran % (Auto) 0.600, Neut % (Auto) 70.4 H, Lymph % (Auto) 18.9 L, [place] % (Auto) 7.5, Eos % (Auto) 2.2, Baso % (Auto) 0.4, Absolute Neuts (auto) 7.3, Absolute Lymphs (auto) 1.96, Nucleated RBC % 0 05/20/20 05:53: Sodium 141, Potassium 3.4 L, Chloride 107, Carbon Dioxide 30.0, Anion Gap 4 L, BUN 27 H, Creatinine 1.09 H, Estim Creat Clear Calc 37.92, Est GFR (MDRD) Af Amer 63, Est GFR (MDRD) Non-Af 52 L, BUN/Creatinine Ratio 24.8 H, Glucose 102, Calcium 8.6 05/20/20 08:13: POC Glucose 111 H 05/20/20 11:02: POC Glucose 223 H Current Medications Acetaminophen (Tylenol) 650 mg PO Q6H PRN PRN PRN Reason: Pain Score 1-10/Temp > 100.7 F Last Admin: 05/19/20 05:29 Dose: 650 mg Documented by: Bisacodyl (Dulcolax) 5 mg PO DAILY PRN PRN PRN Reason: Constipation Chlorhexidine Gluconate () 1 each TOPICAL DAILY [facility] Last Admin: 05/20/20 08:16 Dose: Not Given Documented by: Dextrose (D50w Syringe) 0 gm IV X1 PRN; Protocol PRN Reason: Hypoglycemia Glucagon () 1 mg IM .X1 PRN PRN Reason: Hypoglycemia Heparin Sodium (Porcine) (Heparin Na) 5,000 unit SC Q8 [facility] Last Admin: 05/20/20 13:00 Dose: 5,000 unit Documented by: Ampicillin Sodium/Sulbactam (Sodium 3 gm/ Sodium Chloride) 112 mls @ 150 mls/hr IV Q12 [facility] Last Infusion: 05/20/20 11:40 Dose: Infused Documented by: Sodium Chloride () 250 mls @ 15 mls/hr IV .[id number] PRN PRN Reason: Saline Flush Last Infusion: 05/20/20 13:00 Dose: 0 mls/hr Documented by: Sodium Chloride () 250 mls @ 15 mls/hr IV .[id number] PRN PRN Reason: Additional IVPB Infusion Vancomycin IV Pharmacy to Dose (1 ea/ Sodium Chloride) 500 mls @ 250 mls/hr IV X1 PRN; Protocol PRN Reason: Rx to Dose Vancomycin HCl 2,000 mg/ (Sodium Chloride) 540 mls @ 250 mls/hr IV X1 ONE Stop: 05/20/20 14:09 Last Admin: 05/20/20 12:59 Dose: 250 mls/hr Documented by: Insulin Glargine (Lantus (Bk)) 75 units SC DAILY [facility] Last Admin: 05/20/20 08:21 Dose: 75 u Documented by: Insulin Human Lispro (Humalog Kwikpen (Bkc)) 0 unit SC ACHS [facility]; Protocol Last Admin: 05/20/20 11:07 Dose: 6 u Documented by: Insulin Human Lispro (Humalog Kwikpen (Bkc)) 24 unit SC TIDAC [facility] Last Admin: 05/20/20 11:07 Dose: 24 u Documented by: Isosorbide Mononitrate (Imdur) 90 mg PO DAILY [facility] Last Admin: 05/20/20 08:18 Dose: 90 mg Documented by: Levetiracetam (Keppra Tablet) 500 mg PO BID [facility] Last Admin: 05/20/20 08:20 Dose: 500 mg Documented by: Levothyroxine Sodium (Synthroid) 50 mcg PO DAILY@0600 [facility] Last Admin: 05/20/20 05:07 Dose: 50 mcg Documented by: Magnesium Hydroxide (Milk Of Magnesia) 30 ml PO DAILY PRN PRN PRN Reason: Constipation Memantine (Namenda) 5 mg PO BID [facility] Last Admin: 05/20/20 08:21 Dose: 5 mg Documented by: Metoprolol Succinate (Toprol Xl (Beta Susy)) 50 mg PO DAILY [facility] Last Admin: 05/20/20 08:19 Dose: 50 mg Documented by: Nystatin (Mycostatin Powder) 1 applic TOPICAL TID [facility]; Protocol Last Admin: 05/20/20 13:00 Dose: 1 applicatio Documented by: Pantoprazole Sodium (Protonix) 20 mg PO DAILY [facility] Last Admin: 05/20/20 08:20 Dose: 20 mg Documented by: Prasugrel (Effient) 10 mg PO DAILY [facility] Last Admin: 05/20/20 08:19 Dose: 10 mg Documented by: Senna/Docusate Sodium (Senokot-S, Zamzam-Colace) 1 tablet PO DAILY [facility] Last Admin: 05/20/20 08:19 Dose: 1 tablet Documented by: Simvastatin (Zocor) 40 mg PO QHS [facility] Last Admin: 05/19/20 22:17 Dose: 40 mg Documented by: Sodium Chloride () 10 - 40 ml IV UD PRN PRN Reason: SALINE FLUSH Last Admin: 05/20/20 10:54 Dose: 10 ml Documented by: STROKE Vital Signs/Narrative: Vital Signs Pulse 05/20/20 11:00 79 Medical Necessity - Tobacco Use Smoking Status: Former smoker Tobacco Use: Non-smoker Assessment/Plan All Active Problems (Last Reviewed 04/19/20 @ 14:[address] Trip Forman MD) Severe sepsis (Acute) Cellulitis of right lower leg (Acute) Hyperglycemia due to type 2 diabetes mellitus (Acute) GRIS (acute kidney injury) (Acute) Dehydration (Acute) Sepsis with metabolic encephalopathy (Acute) Noncompliance (Acute) Fatigue (Acute) History of coronary artery stent placement (Resolved 01/25/11) GRIS (acute kidney injury) (Resolved) Acute cystitis (Resolved) Acute delirium (Resolved) Chest pain (Resolved) Dehydration (Resolved) Delirium (Resolved) Delirium (Resolved) Fall (Resolved) Hypoglycemia (Resolved) Influenza A (Resolved) Migraine (Resolved) Pneumococcal pneumonia (Resolved) Sepsis (Resolved) Sepsis (Resolved) UTI (urinary tract infection) (Resolved) UTI (urinary tract infection) (Resolved) 1. Acute severe sepsis secondary to right lower extremity cellulitis-improving. Continue unasyn. Plan to transition to beta lactam po at me. 2. Type 2 diabetes with hyperglycemia, obesity secondary to medication noncompliance-titrate inculinto response. 3. Acute kidney injury secondary to severe sepsis - resolved. resume home meds. 4. Acute metabolic encephalopathy secondary to #1-resolved. 5. History of A. fib, sick sinus syndrome-EKG shows atrial fibrillation. Patient is not on anticoagulation. Continue metoprolol. 6. History of migraine -on Keppra 7. History of chronic diastolic congestive heart failure-resume lasix. 8.CAD -history of stents. Continue Effient, statin, Imdur, Toprol. 9. Hypothyroidism - synthroid. 10. Suspected dementia - patient on memantine. no clear documentation found at this time. DVT prophylaxis: Heparin DC planning: SNF placement. This patient was seen by Steven Schneider PA-C under the supervision of Doctor Antonino <Antoine Muñiz - Last Filed: 05/20/20 14:04> Vitals/I&O's: Vital Signs Temp Pulse Resp BP Pulse Ox 36.5 C L 79 18 120/60 95 05/20/20 08:31 05/20/20 11:00 05/20/20 08:31 05/20/20 08:31 05/20/20 08:31 Oxygen Delivery Method Room Air Weight: 98.7 kg Body Mass Index (BMI) 36.9 Finger Stick Blood Glucose 438 Intake and Output for Last 24 Hours 05/18/20 05/19/20 05/20/20 23:59 23:59 23:59 Intake Total 662.00 / 722.00 2694 / 2694 532 / 532 Output Total 225 / 325 700 / 700 Balance 437.00 / 397.00 1993 532 / 532 General: Alert, Cooperative HEENT: Atraumatic, Normocephalic Skin: - Psych/Mental Status: Normal Affect, Appropriate Laboratory Results 05/19/20 16:58: POC Glucose 180 H 05/19/20 22:06: POC Glucose 112 H 05/20/20 05:53: WBC 10.4, RBC 4.21, Hgb 10.9 L, Hct 34.9 L, MCV 82.9, MCH 25.9 L, MCHC 31.2 L, RDW Std Deviation 50.4 H, RDW Coeff of Candace 16.6 H, Plt Count 147 L, MPV 13.2 H, Immature Gran % (Auto) 0.600, Neut % (Auto) 70.4 H, Lymph % (Auto) 18.9 L, [place] % (Auto) 7.5, Eos % (Auto) 2.2, Baso % (Auto) 0.4, Absolute Neuts (auto) 7.3, Absolute Lymphs (auto) 1.96, Nucleated RBC % 0 05/20/20 05:53: Sodium 141, Potassium 3.4 L, Chloride 107, Carbon Dioxide 30.0, Anion Gap 4 L, BUN 27 H, Creatinine 1.09 H, Estim Creat Clear Calc 37.92, Est GFR (MDRD) Af Amer 63, Est GFR (MDRD) Non-Af 52 L, BUN/Creatinine Ratio 24.8 H, Glucose 102, Calcium 8.6 05/20/20 08:13: POC Glucose 111 H 05/20/20 11:02: POC Glucose 223 H Current Medications Acetaminophen (Tylenol) 650 mg PO Q6H PRN PRN PRN Reason: Pain Score 1-10/Temp > 100.7 F Last Admin: 05/19/20 05:29 Dose: 650 mg Documented by: Bisacodyl (Dulcolax) 5 mg PO DAILY PRN PRN PRN Reason: Constipation Chlorhexidine Gluconate () 1 each TOPICAL DAILY [facility] Last Admin: 05/20/20 08:16 Dose: Not Given Documented by: Dextrose (D50w Syringe) 0 gm IV X1 PRN; Protocol PRN Reason: Hypoglycemia Glucagon () 1 mg IM .X1 PRN PRN Reason: Hypoglycemia Heparin Sodium (Porcine) (Heparin Na) 5,000 unit SC Q8 [facility] Last Admin: 05/20/20 13:00 Dose: 5,000 unit Documented by: Ampicillin Sodium/Sulbactam (Sodium 3 gm/ Sodium Chloride) 112 mls @ 150 mls/hr IV Q12 [facility] Last Infusion: 05/20/20 11:40 Dose: Infused Documented by: Sodium Chloride () 250 mls @ 15 mls/hr IV .[id number] PRN PRN Reason: Saline Flush Last Infusion: 05/20/20 13:00 Dose: 0 mls/hr Documented by: Sodium Chloride () 250 mls @ 15 mls/hr IV .[id number] PRN PRN Reason: Additional IVPB Infusion Vancomycin IV Pharmacy to Dose (1 ea/ Sodium Chloride) 500 mls @ 250 mls/hr IV X1 PRN; Protocol PRN Reason: Rx to Dose Vancomycin HCl 2,000 mg/ (Sodium Chloride) 540 mls @ 250 mls/hr IV X1 ONE Stop: 05/20/20 14:09 Last Admin: 05/20/20 12:59 Dose: 250 mls/hr Documented by: Vancomycin HCl (Vancomycin) 1,000 mg in 200 mls @ 200 mls/hr IV Q12H [facility] Insulin Glargine (Lantus (Bkc)) 75 units SC DAILY [facility] Last Admin: 05/20/20 08:21 Dose: 75 u Documented by: Insulin Human Lispro (Humalog Kwikpen (Bk)) 0 unit SC ACHS [facility]; Protocol Last Admin: 05/20/20 11:07 Dose: 6 u Documented by: Insulin Human Lispro (Humalog Kwikpen (Bk)) 26 unit SC BREAKFAST [facility] Insulin Human Lispro (Humalog Kwikpen (Bkc)) 24 unit SC BIDLS [facility] Isosorbide Mononitrate (Imdur) 90 mg PO DAILY [facility] Last Admin: 05/20/20 08:18 Dose: 90 mg Documented by: Levetiracetam (Keppra Tablet) 500 mg PO BID [facility] Last Admin: 05/20/20 08:20 Dose: 500 mg Documented by: Levothyroxine Sodium (Synthroid) 50 mcg PO DAILY@0600 [facility] Last Admin: 05/20/20 05:07 Dose: 50 mcg Documented by: Magnesium Hydroxide (Milk Of Magnesia) 30 ml PO DAILY PRN PRN PRN Reason: Constipation Memantine (Namenda) 5 mg PO BID [facility] Last Admin: 05/20/20 08:21 Dose: 5 mg Documented by: Metoprolol Succinate (Toprol Xl (Beta Susy)) 50 mg PO DAILY [facility] Last Admin: 05/20/20 08:19 Dose: 50 mg Documented by: Nystatin (Mycostatin Powder) 1 applic TOPICAL TID [facility]; Protocol Last Admin: 05/20/20 13:00 Dose: 1 applicatio Documented by: Pantoprazole Sodium (Protonix) 20 mg PO DAILY [facility] Last Admin: 05/20/20 08:20 Dose: 20 mg Documented by: Prasugrel (Effient) 10 mg PO DAILY [facility] Last Admin: 05/20/20 08:19 Dose: 10 mg Documented by: Senna/Docusate Sodium (Senokot-S, Zamzam-Colace) 1 tablet PO DAILY [facility] Last Admin: 05/20/20 08:19 Dose: 1 tablet Documented by: Simvastatin (Zocor) 40 mg PO QHS [facility] Last Admin: 05/19/20 22:17 Dose: 40 mg Documented by: Sodium Chloride () 10 - 40 ml IV UD PRN PRN Reason: SALINE FLUSH Last Admin: 05/20/20 10:54 Dose: 10 ml Documented by: STROKE Vital Signs/Narrative: Vital Signs Pulse 05/20/20 11:00 79 Assessment/Plan Patient seen and examined independently. Data reviewed. I agree with the above note by the physician assistant professor of mathematics. 1. Severe sepsis: Secondary to cellulitis 2. Right lower extremity cellulitis: Overall improved but seems to be about the same as yesterday. Patient already on ampicillin/sulbactam. Will add vancomycin and observe overnight. Appears to be improving as it has withdrawn from the lines of demarcation. Patient states that she developed a cellulitis from her scratching cat. 3. Metabolic encephalopathy: Secondary to sepsis and cellulitis. Resolved this time patient is very animated and alert and oriented at this time. Inpatient E&M: 44424 Subs Hosp L2
--- NOTE | 2020-05-20 13:18 | PCM.RX.CS ---
Consult Pharmacy has been consulted to manage selected antiobiotic: Vancomycin Type of Consult: New start Suspected Infection: Skin/Soft tissue Labs: Sodium 141 mmol/L (136-145) 05/20/20 05:53 Potassium 3.4 mmol/L (3.5-5.1) L 05/20/20 05:53 Chloride 107 mmol/L (98-107) 05/20/20 05:53 Carbon Dioxide 30.0 mmol/L (21.0-32.0) 05/20/20 05:53 Anion Gap 4 (5-15) L 05/20/20 05:53 BUN 27 mg/dL (7-18) H 05/20/20 05:53 Creatinine 1.09 mg/dL (0.55-1.02) H 05/20/20 05:53 Est GFR (MDRD) Af Amer 63 mL/min (>60) 05/20/20 05:53 Est GFR (MDRD) Non-Af 52 mL/min (>60) L 05/20/20 05:53 BUN/Creatinine Ratio 24.8 RATIO (10-20) H 05/20/20 05:53 Glucose 102 mg/dL (74-106) 05/20/20 05:53 Goal Trough: 15-20 mcg/mL Pharmacy Plan for Drug Dosing: NEW START IV VANCOMYCIN Consulting Physician: LORRAINE Indication: CELLULITIS Goal Trough: 15-20 SrCr: 1.09 (05/20) CrCl: 50.1 ML/MIN (USING ADJUSTED BW) COMMENTS: LOADING DOSE OF 2000MG GIVEN 05/20 @ 1259 Vancomcyin Dose: 1000MG Q12H STARTING 05/21 @ 0100 Pharmacy Service will continue to monitor and adjust dosing as required. Labs to be done on [date and time ordered]: 05/22/20 @ 0030
[2020-05-20 17:25] LABS: Bedside Glucose 133 mg/dL (70-110)
--- NOTE | 2020-05-20 18:25 | NURSING ---
Pt had Purewhick but this nurse removed it, as pt was refusing it. Pt states it did not feel comfortable and wanted it removed. Attends on and reminded to call when has urge to void.
[2020-05-20] MEDS: Simvastatin 20 MG Tablet 40 MG PO (21:34)
[2020-05-20 21:50] LABS: Bedside Glucose 118 mg/dL (70-110)
[2020-05-21] VITALS (10 sets, daily range): BP systolic 106–159; BP diastolic 57–93; PULSE 66–107; RESP 16–18; TEMP 36.2–36.9; O2SAT 92–98
[2020-05-21] MEDS: Acetaminophen 325 MG Tablet 650 MG PO ×2 (00:09→15:48)
[2020-05-21] MEDS: Vancomycin IV 1,000 MG/200 ML BAG 200 MG IV ×2 (00:13→12:42)
[2020-05-21 06:43] LABS: Anion Gap 5 (5-15); BUN 21 mg/dL (7-18); BUN/Creat Ratio 18.4 RATIO (10-20); Calcium,Total 8.4 mg/dL (8.5-10.1); Chloride 109 mmol/L (98-107); Creatinine, Serum 1.14 mg/dL (0.55-1.02); EST Glomerular Filtration Rate 49 mL/min (>60); Est Glom Filt Rate - Afr Amer 60 mL/min (>60); Estimated Creatinine Clearance 36.25 ml/min; Glucose 156 mg/dL (74-106); Sodium Level 141 mmol/L (136-145)
[2020-05-21] MEDS: Levothyroxine 50 MCG Tablet PO (06:46)
[2020-05-21] MEDS: Heparin Injection (Vial) 5,000 UNIT/ML VIAL 5000 UNIT SC ×3 (06:46→21:25)
[2020-05-21] MEDS: Nystatin Powder 15gm Bottle 1 APPLIC TOPICAL ×3 (06:47→21:26)
[2020-05-21] MEDS: Insulin Lispro 100 UNIT/ML INSULN.PEN SC ×3 (08:36→21:25)
[2020-05-21] MEDS: Insulin Lispro 100 UNIT/ML INSULN.PEN 26 UNIT SC (08:37)
[2020-05-21 08:41] LABS: Bedside Glucose 170 mg/dL (70-110)
[2020-05-21] MEDS: Memantine Hydrochloride 5 MG Tablet PO ×2 (10:12→21:25)
[2020-05-21] MEDS: levETIRAcetam 500 MG Tablet PO ×2 (10:12→21:25)
[2020-05-21] MEDS: Pantoprazole Sodium 20 MG Tablet PO (10:12)
[2020-05-21] MEDS: Senna/Docusate Sodium 1 Tablet PO (10:12)
[2020-05-21] MEDS: Isosorbide Mononitrate 30 MG Tablet 90 MG PO (10:12)
--- NOTE | 2020-05-21 10:34 | CT_ITS ---
STUDY: CT RIGHT TIBIA AND FIBULA WITH CONTRAST REASON FOR EXAM: Female, 74 years old patient with red and painful right leg, with fever and cellulitis. Medical medical history includes CHF, chronic renal disease - stage 3; hypertension, diabetes, skin and bone cancer, hypothyroidism and DVT. RADIATION DOSAGE (If Supplied By Facility): CTDIvol = ( 15.35 ) mGy, DLP = ( 752.89 ) mGycm TECHNIQUE: Transaxial CT imaging of the leg was performed post contrast administration. The examination was performed with intravenous administration of 100 of Isovue-300. Sagittal and coronal images were reconstructed. Individualized dose optimization techniques were used for this CT. COMPARISON: None. FINDINGS: The bones appear mildly osteopenic. There are degenerative changes at the knee with narrowing of the lateral femoral tibial compartment. There are degenerative changes of the patellofemoral articulation. There is a posterior calcaneal enthesophyte and plantar calcaneal spur. There is evidence for calcification of the major arteries of the leg. There is soft tissue swelling particularly of the dermis at the distal leg and ankle primarily. There is also some soft tissue edema visible in the medial knee and medial leg. The skeletal muscles have a normal appearance. There is no CT evidence to suggest an abscess either within the muscles or superficial soft tissues of the leg. There is a small suprapatellar joint effusion. There is no demonstrated fracture or destructive process. There is no enhancing abnormality. CT/Extremity Lower WITH Contrast IMPRESSION: 1. Suprapatellar joint effusion. 2. Superficial soft tissue edema involving the leg with the most severe changes at the ankle. This is probably secondary to known infection though a sequela of venous insufficiency is possible as well. 3. No CT evidence to suggest superficial soft tissue abscess. 4. Extensive calcific peripheral atherosclerotic vascular disease. Electronically Signed: Marlena Chand MD at 0:51 EDT , Service support ,
--- NOTE | 2020-05-21 11:24 | PN_ITS ---
<Steven Schneider - Last Filed: 05/21/20 11:24> Patient Problems: Active and Suspected Problems (Last Reviewed 04/19/20 @ 14:[address] Trip Forman MD) Severe sepsis (Acute) Cellulitis of right lower leg (Acute) Hyperglycemia due to type 2 diabetes mellitus (Acute) GRIS (acute kidney injury) (Acute) Dehydration (Acute) Sepsis with metabolic encephalopathy (Acute) Reason for Visit: Significant tenderness LLE. Some increased swelling. No fever/chills. No SOB/Cough. Pt more confused this am. She states that sometimes here and at home she is unsure what is real and what is not. When asked to elaborate she said for example this morning she was not sure if Dr. Muñiz was real this morning because she thought that she had seen him on tv in the past. She is A/Ox3 however. Vitals/I&O's: Vital Signs Temp Pulse Resp BP Pulse Ox 97.2 F L 74 18 106/57 L 98 05/21/20 09:25 05/21/20 10:17 05/21/20 09:25 05/21/20 10:17 05/21/20 09:25 Oxygen Delivery Method Room Air Weight: 218 lb 0.595 oz Body Mass Index (BMI) 36.9 Finger Stick Blood Glucose 438 Intake and Output for Last 24 Hours 05/19/20 05/20/20 05/21/20 23:59 23:59 23:59 Intake Total 2694 / 2694 2103.25 / 2103.25 680 / 680 Output Total 700 / 700 Balance 1993 2103.25 / 2103.25 680 / 680 General: Alert, Oriented x3, Cooperative HEENT: Atraumatic, PERRLA, EOMI, Normocephalic Neck: Supple, No JVD, Negative Carotid Bruits Lungs: Clear to auscultation, Normal air movement Cardiovascular: Regular rate, No murmurs Abdomen: Bowel Sounds Present, Soft, Non Tender Extremities: No edema, Capillary Refill Less than 3 Seconds Skin: No rashes, No breakdown, - - the erythema continues to improve. She has significant tenderness to light palpation. There is some mild swelling particularly in the posterior RLE over the calf. No induration appreciated. Musculoskeletal: No Tenderness to Palpation of Joints or Extremities Neurological: Cranial nerves II-XII grossly intact Psych/Mental Status: Normal Affect, Appropriate, Alert and oriented to time, place, person, mood and affect Microbiology Past 72 Hours 05/18/20 15:55 Blood Culture (Wb) - Anticubital Left Blood Culture - Preliminary No growth in 48 hours. 05/18/20 15:45 Blood Culture (Wb) - Left Wrist Blood Culture - Preliminary No growth in 48 hours. Laboratory Results 05/20/20 11:02: POC Glucose 223 H 05/20/20 16:29: POC Glucose 133 H 05/20/20 21:29: POC Glucose 118 H 05/21/20 05:26: Sodium 141, Potassium 4.0, Chloride 109 H, Carbon Dioxide 27.0, Anion Gap 5, BUN 21 H, Creatinine 1.14 H, Estim Creat Clear Calc 36.25, Est GFR (MDRD) Af Amer 60, Est GFR (MDRD) Non-Af 49 L, BUN/Creatinine Ratio 18.4, Glucose 156 H, Calcium 8.4 L 05/21/20 08:34: POC Glucose 170 H Current Medications Acetaminophen (Tylenol) 650 mg PO Q6H PRN PRN PRN Reason: Pain Score 1-10/Temp > 100.7 F Last Admin: 05/21/20 00:09 Dose: 650 mg Documented by: Bisacodyl (Dulcolax) 5 mg PO DAILY PRN PRN PRN Reason: Constipation Chlorhexidine Gluconate () 1 each TOPICAL DAILY [facility] Last Admin: 05/21/20 10:17 Dose: Not Given Documented by: Dextrose (D50w Syringe) 0 gm IV X1 PRN; Protocol PRN Reason: Hypoglycemia Diphenhydramine HCl (Benadryl) 50 mg PO X1 ONE Stop: 05/21/20 22:46 Glucagon () 1 mg IM .X1 PRN PRN Reason: Hypoglycemia Heparin Sodium (Porcine) (Heparin Na) 5,000 unit SC Q8 [facility] Last Admin: 05/21/20 06:46 Dose: 5,000 unit Documented by: Ampicillin Sodium/Sulbactam (Sodium 3 gm/ Sodium Chloride) 112 mls @ 150 mls/hr IV Q12 [facility] Last Admin: 05/21/20 10:18 Dose: 150 mls/hr Documented by: Sodium Chloride () 250 mls @ 15 mls/hr IV .[id number] PRN PRN Reason: Saline Flush Last Infusion: 05/20/20 16:32 Dose: Infused Documented by: Sodium Chloride () 250 mls @ 15 mls/hr IV .[id number] PRN PRN Reason: Additional IVPB Infusion Vancomycin IV Pharmacy to Dose (1 ea/ Sodium Chloride) 500 mls @ 250 mls/hr IV X1 PRN; Protocol PRN Reason: Rx to Dose Vancomycin HCl (Vancomycin) 1,000 mg in 200 mls @ 200 mls/hr IV Q12H [facility] Last Infusion: 05/21/20 01:13 Dose: Infused Documented by: Insulin Glargine (Lantus (Bkc)) 75 units SC DAILY [facility] Last Admin: 05/21/20 10:14 Dose: 75 u Documented by: Insulin Human Lispro (Humalog Kwikpen (Bkc)) 0 unit SC ACHS [facility]; Protocol Last Admin: 05/21/20 08:36 Dose: 3 u Documented by: Insulin Human Lispro (Humalog Kwikpen (Bkc)) 26 unit SC BREAKFAST [facility] Last Admin: 05/21/20 08:37 Dose: 26 u Documented by: Insulin Human Lispro (Humalog Kwikpen (Bkc)) 24 unit SC BIDLS [facility] Last Admin: 05/20/20 16:30 Dose: Not Given Documented by: Isosorbide Mononitrate (Imdur) 90 mg PO DAILY [facility] Last Admin: 05/21/20 10:12 Dose: 90 mg Documented by: Levetiracetam (Keppra Tablet) 500 mg PO BID [facility] Last Admin: 05/21/20 10:12 Dose: 500 mg Documented by: Levothyroxine Sodium (Synthroid) 50 mcg PO DAILY@0600 [facility] Last Admin: 05/21/20 06:46 Dose: 50 mcg Documented by: Magnesium Hydroxide (Milk Of Magnesia) 30 ml PO DAILY PRN PRN PRN Reason: Constipation Memantine (Namenda) 5 mg PO BID [facility] Last Admin: 05/21/20 10:12 Dose: 5 mg Documented by: Metoprolol Succinate (Toprol Xl (Beta Susy)) 50 mg PO DAILY [facility] Last Admin: 05/21/20 10:17 Dose: Not Given Documented by: Nystatin (Mycostatin Powder) 1 applic TOPICAL TID [facility]; Protocol Last Admin: 05/21/20 06:47 Dose: 1 applicatio Documented by: Pantoprazole Sodium (Protonix) 20 mg PO DAILY [facility] Last Admin: 05/21/20 10:12 Dose: 20 mg Documented by: Prasugrel (Effient) 10 mg PO DAILY [facility] Last Admin: 05/21/20 10:12 Dose: 10 mg Documented by: Prednisone () 50 mg PO [id number] [facility] Stop: 05/21/20 22:46 Senna/Docusate Sodium (Senokot-S, Zamzam-Colace) 1 tablet PO DAILY [facility] Last Admin: 05/21/20 10:12 Dose: 1 tablet Documented by: Simvastatin (Zocor) 40 mg PO QHS [facility] Last Admin: 05/20/20 21:34 Dose: 40 mg Documented by: Sodium Chloride () 10 - 40 ml IV UD PRN PRN Reason: SALINE FLUSH Last Admin: 05/20/20 21:30 Dose: 10 ml Documented by: STROKE Vital Signs/Narrative: Vital Signs Temp Pulse Resp BP Pulse Ox 05/21/20 10:17 74 106/57 L 05/21/20 09:25 97.2 F L 74 18 106/57 L 98 Medical Necessity - Tobacco Use Smoking Status: Former smoker Tobacco Use: Non-smoker Assessment/Plan All Active Problems (Last Reviewed 04/19/20 @ 14:[address] Trip Forman MD) Severe sepsis (Acute) Cellulitis of right lower leg (Acute) Hyperglycemia due to type 2 diabetes mellitus (Acute) GRIS (acute kidney injury) (Acute) Dehydration (Acute) Sepsis with metabolic encephalopathy (Acute) Noncompliance (Acute) Fatigue (Acute) History of coronary artery stent placement (Resolved 01/25/11) GRIS (acute kidney injury) (Resolved) Acute cystitis (Resolved) Acute delirium (Resolved) Chest pain (Resolved) Dehydration (Resolved) Delirium (Resolved) Delirium (Resolved) Fall (Resolved) Hypoglycemia (Resolved) Influenza A (Resolved) Migraine (Resolved) Pneumococcal pneumonia (Resolved) Sepsis (Resolved) Sepsis (Resolved) UTI (urinary tract infection) (Resolved) UTI (urinary tract infection) (Resolved) 1. Acute severe sepsis secondary to right lower extremity cellulitis- Continue unasyn. Vanc was added yesterday. Plan to transition to beta lactam po at de. Severe tenderness and some swelling - obtain contrast CT RLE. Premedicate for contrast allergy. 2. Type 2 diabetes with hyperglycemia, obesity secondary to medication noncompliance-titrate insulin to response. 3. Acute kidney injury secondary to severe sepsis - resolved. 4. Acute metabolic encephalopathy secondary to #1-resolved. Confusion this morning is consistent with confusion reported at home, likely due to underlying dementia. Care as per #10. Ammonia neg. 5. History of A. fib, sick sinus syndrome-EKG shows atrial fibrillation. Patient is not on anticoagulation. Continue metoprolol. 6. History of migraine -on Keppra 7. History of chronic diastolic congestive heart failure-resume lasix. 8.CAD -history of stents. Continue Effient, statin, Imdur, Toprol. 9. Hypothyroidism - synthroid. 10. Suspected dementia - continue memantine. follow up with PCP. DVT prophylaxis: Heparin DC planning: SNF placement. This patient was seen by Steven Schneider PA-C under the supervision of Doctor Antonino <Antoine Muñiz - Last Filed: 05/21/20 12:07> Reason for Visit: No new complaints. Vitals/I&O's: Vital Signs Temp Pulse Resp BP Pulse Ox 36.2 C L 74 18 106/57 L 98 05/21/20 09:25 05/21/20 10:17 05/21/20 09:25 05/21/20 10:17 05/21/20 09:25 Oxygen Delivery Method Room Air Weight: 98.9 kg Body Mass Index (BMI) 36.9 Finger Stick Blood Glucose 438 Intake and Output for Last 24 Hours 05/19/20 05/20/20 05/21/20 23:59 23:59 23:59 Intake Total 2694 / 2694 2103.25 / 210.25 792 / 792 Output Total 700 / 700 Balance 1993 210.25 / 2102.25 792 / 792 General: Alert, Cooperative HEENT: Atraumatic, Normocephalic Neck: No Nodes, Trachea Midline Skin: - - the erythema continues to improve. She has significant tenderness to light palpation. There is some mild swelling particularly in the posterior RLE over the calf. No induration appreciated. Mild swelling and prominence over lefter lateral calf. Microbiology Past 72 Hours 05/18/20 15:55 Blood Culture (Wb) - Anticubital Left Blood Culture - Preliminary No growth in 48 hours. 05/18/20 15:45 Blood Culture (Wb) - Left Wrist Blood Culture - Preliminary No growth in 48 hours. Laboratory Results 05/20/20 16:29: POC Glucose 133 H 05/20/20 21:29: POC Glucose 118 H 05/21/20 05:26: Sodium 141, Potassium 4.0, Chloride 109 H, Carbon Dioxide 27.0, Anion Gap 5, BUN 21 H, Creatinine 1.14 H, Estim Creat Clear Calc 36.25, Est GFR (MDRD) Af Amer 60, Est GFR (MDRD) Non-Af 49 L, BUN/Creatinine Ratio 18.4, Glucose 156 H, Calcium 8.4 L 05/21/20 08:34: POC Glucose 170 H Current Medications Acetaminophen (Tylenol) 650 mg PO Q6H PRN PRN PRN Reason: Pain Score 1-10/Temp > 100.7 F Last Admin: 05/21/20 00:09 Dose: 650 mg Documented by: Bisacodyl (Dulcolax) 5 mg PO DAILY PRN PRN PRN Reason: Constipation Chlorhexidine Gluconate () 1 each TOPICAL DAILY [facility] Last Admin: 05/21/20 10:17 Dose: Not Given Documented by: Dextrose (D50w Syringe) 0 gm IV X1 PRN; Protocol PRN Reason: Hypoglycemia Diphenhydramine HCl (Benadryl) 50 mg PO X1 ONE Stop: 05/21/20 22:46 Glucagon () 1 mg IM .X1 PRN PRN Reason: Hypoglycemia Heparin Sodium (Porcine) (Heparin Na) 5,000 unit SC Q8 [facility] Last Admin: 05/21/20 06:46 Dose: 5,000 unit Documented by: Ampicillin Sodium/Sulbactam (Sodium 3 gm/ Sodium Chloride) 112 mls @ 150 mls/hr IV Q12 [facility] Last Infusion: 05/21/20 11:24 Dose: Infused Documented by: Sodium Chloride () 250 mls @ 15 mls/hr IV .[id number] PRN PRN Reason: Saline Flush Last Infusion: 05/20/20 16:32 Dose: Infused Documented by: Sodium Chloride () 250 mls @ 15 mls/hr IV .[id number] PRN PRN Reason: Additional IVPB Infusion Vancomycin IV Pharmacy to Dose (1 ea/ Sodium Chloride) 500 mls @ 250 mls/hr IV X1 PRN; Protocol PRN Reason: Rx to Dose Vancomycin HCl (Vancomycin) 1,000 mg in 200 mls @ 200 mls/hr IV Q12H [facility] Last Infusion: 05/21/20 01:13 Dose: Infused Documented by: Insulin Glargine (Lantus (Bkc)) 75 units SC DAILY [facility] Last Admin: 05/21/20 10:14 Dose: 75 u Documented by: Insulin Human Lispro (Humalog Kwikpen (Bk)) 0 unit SC ACHS [facility]; Protocol Last Admin: 05/21/20 08:36 Dose: 3 u Documented by: Insulin Human Lispro (Humalog Kwikpen (Bk)) 26 unit SC BREAKFAST [facility] Last Admin: 05/21/20 08:37 Dose: 26 u Documented by: Insulin Human Lispro (Humalog Kwikpen ([facility])) 24 unit SC BIDLS [facility] Last Admin: 05/20/20 16:30 Dose: Not Given Documented by: Isosorbide Mononitrate (Imdur) 90 mg PO DAILY [facility] Last Admin: 05/21/20 10:12 Dose: 90 mg Documented by: Levetiracetam (Keppra Tablet) 500 mg PO BID [facility] Last Admin: 05/21/20 10:12 Dose: 500 mg Documented by: Levothyroxine Sodium (Synthroid) 50 mcg PO DAILY@0600 [facility] Last Admin: 05/21/20 06:46 Dose: 50 mcg Documented by: Magnesium Hydroxide (Milk Of Magnesia) 30 ml PO DAILY PRN PRN PRN Reason: Constipation Memantine (Namenda) 5 mg PO BID [facility] Last Admin: 05/21/20 10:12 Dose: 5 mg Documented by: Metoprolol Succinate (Toprol Xl (Beta Susy)) 50 mg PO DAILY [facility] Last Admin: 05/21/20 10:17 Dose: Not Given Documented by: Nystatin (Mycostatin Powder) 1 applic TOPICAL TID [facility]; Protocol Last Admin: 05/21/20 06:47 Dose: 1 applicatio Documented by: Pantoprazole Sodium (Protonix) 20 mg PO DAILY [facility] Last Admin: 05/21/20 10:12 Dose: 20 mg Documented by: Prasugrel (Effient) 10 mg PO DAILY [facility] Last Admin: 05/21/20 10:12 Dose: 10 mg Documented by: Prednisone () 50 mg PO [id number] [facility] Stop: 05/21/20 22:46 Senna/Docusate Sodium (Senokot-S, Zamzam-Colace) 1 tablet PO DAILY [facility] Last Admin: 05/21/20 10:12 Dose: 1 tablet Documented by: Simvastatin (Zocor) 40 mg PO QHS [facility] Last Admin: 05/20/20 21:34 Dose: 40 mg Documented by: Sodium Chloride () 10 - 40 ml IV UD PRN PRN Reason: SALINE FLUSH Last Admin: 05/20/20 21:30 Dose: 10 ml Documented by: STROKE Vital Signs/Narrative: Vital Signs Temp Pulse Resp BP Pulse Ox 05/21/20 10:17 74 106/57 L 05/21/20 09:25 36.2 C L 74 18 106/57 L 98 Assessment/Plan Patient seen and examined independently. Data reviewed. I agree with the above note by the physician operations administrative assistant. 1. Severe sepsis: Secondary to cellulitis. resolved. 2. Right lower extremity cellulitis: * Erythema improved, however, some slightly prominent swelling over right medial calf. * Ampicillin/sulbactam and vancomycin * check CT to eval for abscess (known iodine allergy, so receiving premedication for CT w contrast) 3. Metabolic encephalopathy: Secondary to sepsis and cellulitis. Resolved this time patient is very animated and alert and oriented at this time. Inpatient E&M: 32345 Subs Hosp L2
[2020-05-21] MEDS: predniSONE 20 MG Tablet 50 MG PO ×3 (11:49→22:49)
[2020-05-21] MEDS: Insulin Lispro 100 UNIT/ML INSULN.PEN 24 UNIT SC ×2 (11:51→16:39)
[2020-05-21 12:01] LABS: Bedside Glucose 183 mg/dL (70-110)
[2020-05-21 16:36] LABS: Bedside Glucose 113 mg/dL (70-110)
[2020-05-21] MEDS: Simvastatin 20 MG Tablet 40 MG PO (21:26)
[2020-05-21 21:50] LABS: Bedside Glucose 177 mg/dL (70-110)
[2020-05-21] MEDS: DiphenhydrAMINE 25 MG Capsule 50 MG PO (22:48)
[2020-05-22] VITALS (15 sets, daily range): BP systolic 108–168; BP diastolic 54–100; PULSE 71–92; RESP 14–18; TEMP 36.5–36.9; O2SAT 94–99
[2020-05-22] MEDS: Vancomycin IV 1,000 MG/200 ML BAG 200 MG IV ×2 (02:19→12:34)
--- NOTE | 2020-05-22 02:27 | PCM.RX.CS ---
Consult Pharmacy has been consulted to manage selected antiobiotic: Vancomycin Type of Consult: Follow-up Suspected Infection: Skin/Soft tissue Prior Doses of Antibiotics Received/Current Regimen: Medications Vancomycin HCl (Vancomycin) 1,000 mg in 200 mls @ 200 mls/hr IV Q12H [facility] Last Admin: 05/22/20 02:19 Dose: 200 mls/hr Labs: Sodium 141 mmol/L (136-145) 05/21/20 05:26 Potassium 4.0 mmol/L (3.5-5.1) 05/21/20 05:26 Chloride 109 mmol/L (98-107) H 05/21/20 05:26 Carbon Dioxide 27.0 mmol/L (21.0-32.0) 05/21/20 05:26 Anion Gap 5 (5-15) 05/21/20 05:26 BUN 21 mg/dL (7-18) H 05/21/20 05:26 Creatinine 1.14 mg/dL (0.55-1.02) H 05/21/20 05:26 Est GFR (MDRD) Af Amer 60 mL/min (>60) 05/21/20 05:26 Est GFR (MDRD) Non-Af 49 mL/min (>60) L 05/21/20 05:26 BUN/Creatinine Ratio 18.4 RATIO (10-20) 05/21/20 05:26 Glucose 156 mg/dL (74-106) H 05/21/20 05:26 Vancomycin Trough 16.0 ug/mL (5.0-15.0) H 05/22/20 00:37 Microbiology: Microbiology 05/18/20 15:55 Blood Culture (Wb) - Anticubital Left Blood Culture - Preliminary No growth in 48 hours. 05/18/20 15:45 Blood Culture (Wb) - Left Wrist Blood Culture - Preliminary No growth in 48 hours. Weight used for dosin.7 kg Estimated Creatinine Clearance: 48 Goal Trough: 15-20 mcg/mL Pharmacy Plan for Drug Dosing: Trough level of 16.0 was within target range, 15-20. Will continue same dosing and redraw trough 05/25/20. Pharmacy Service will continue to monitor and adjust dosing as required. Follow-Up Labs: Trough Vancomycin Labs to be done on [date and time ordered]: 05/25/20 @1234
--- NOTE | 2020-05-22 03:32 | EKG12_ITS ---
Test Reason : CP Blood Pressure : / mmHG Vent. Rate : 086 BPM Atrial Rate : 075 BPM P-R Int : 000 ms QRS Dur : 138 ms QT Int : 428 ms P-R-T Axes : 000 -29 -17 degrees QTc Int : 512 ms Atrial fibrillation Right bundle branch block Abnormal ECG When compared with ECG of 18-MAY-2020 16:12, MANUAL COMPARISON REQUIRED, DATA IS UNCONFIRMED Confirmed by TAM GALINDO, LORRAINE ([id number]), news copy editor WILLIS HAWKINS ([id number]) on 05/23/2020 10:54:56 AM Referred By: DR ETIENNE Confirmed By:LORRAINE TURCIOS MD
[2020-05-22] MEDS: Nitroglycerin (INPATIENT USE) 0.4 MG TAB.SUBL SUBLINGUAL ×3 (03:57→04:10)
[2020-05-22 03:58] LABS: Absolute Neutrophil Count 6.4 X10^3/uL (2.0-7.7); Basophil# 0.01 X10^3/uL; Basophil% 0.1 % (0-1); Hematocrit 34.8 % (37-47); Mean Corp Hgb Conc 31.6 g/dL (32-36); Mean Corpuscular Hgb 25.6 pg (27.0-32.0); Mean Corpuscular Volume 81.1 fL (81-99); Mean Platelet Vol. 12.1 fl (6.2-12.0); Monocyte# 0.11 X10^3/uL; Monocyte% 1.5 % (0-10); NRBC Flagged by Analyzer 0 % (0-5); Neutrophil # 6.43 X10^3/uL (2.7-7.7); Neutrophil % 85.6 % (47-70); Platelet Count 216 K/mm3 (150-450); RBC Distribution Width CV 16.1 % (11.6-14.6); RBC Distribution Width SD 47.3 fl (35.1-43.9); Red Blood Count 4.29 M/mm3 (4.2-5.4); White Blood Count 7.5 K/mm3 (4.4-11.0)
[2020-05-22 04:18] LABS: Anion Gap 9 (5-15); BUN 16 mg/dL (7-18); BUN/Creat Ratio 16.1 RATIO (10-20); Calcium,Total 8.8 mg/dL (8.5-10.1); Chloride 111 mmol/L (98-107); EST Glomerular Filtration Rate 58 mL/min (>60); Est Glom Filt Rate - Afr Amer 70 mL/min (>60); Estimated Creatinine Clearance 41.33 ml/min; Glucose 290 mg/dL (74-106); Potassium 4.4 mmol/L (3.5-5.1); Sodium Level 146 mmol/L (136-145)
[2020-05-22] MEDS: Heparin Injection (Vial) 5,000 UNIT/ML VIAL 5000 UNIT SC ×3 (05:17→21:02)
[2020-05-22] MEDS: Nystatin Powder 15gm Bottle 1 APPLIC TOPICAL ×2 (05:17→14:33)
[2020-05-22] MEDS: Levothyroxine 50 MCG Tablet PO (05:17)
[2020-05-22] MEDS: Insulin Lispro 100 UNIT/ML INSULN.PEN 26 UNIT SC (08:24)
[2020-05-22] MEDS: Insulin Lispro 100 UNIT/ML INSULN.PEN SC ×4 (08:24→21:02)
[2020-05-22] MEDS: Isosorbide Mononitrate 30 MG Tablet 90 MG PO (08:35)
[2020-05-22] MEDS: Memantine Hydrochloride 5 MG Tablet PO ×2 (08:35→21:02)
[2020-05-22] MEDS: levETIRAcetam 500 MG Tablet PO ×2 (08:35→21:02)
[2020-05-22] MEDS: Pantoprazole Sodium 20 MG Tablet PO (08:35)
[2020-05-22] MEDS: Metoprolol(XL)Succ 50 MG Tablet PO (08:35)
[2020-05-22] MEDS: Senna/Docusate Sodium 1 Tablet PO (08:35)
[2020-05-22 08:41] LABS: Bedside Glucose 279 mg/dL (70-110)
[2020-05-22] MEDS: 0.9% Saline Lock 10 ML Syringe IV ×2 (08:43→21:01)
--- NOTE | 2020-05-22 11:19 | CASEMGMT ---
SW called [facility] and Rola said they did not receive the referral last week. SW told her SW will re-fax the referral. SW also asked that they start the pre-cert if they are able to accept her as she is ready for discharge. Re-faxed referral with updates to [facility]. They will start the pre-cert. Tonja ROJAS
[2020-05-22] MEDS: Insulin Lispro 100 UNIT/ML INSULN.PEN 24 UNIT SC ×2 (11:45→16:56)
[2020-05-22 11:51] LABS: Bedside Glucose 287 mg/dL (70-110)
--- NOTE | 2020-05-22 12:08 | PHA.DC.MR ---
Pharmacy Service has performed discharge medication reconciliation for this patient upon transfer to [facility]. The patient's discharge medication list was reviewed for discrepancies and discrepancies were resolved. Home Medications Metoprolol Succinate [Toprol Xl] 50 mg PO DAILY 10/11/17 Prasugrel HCl 10 mg PO DAILY 06/04/18 Simvastatin [Zocor] 40 mg PO QHS 06/04/18 Cetirizine HCl [Zyrtec] 10 mg PO DAILY PRN 11/18/18 Duloxetine HCl 30 mg PO DAILY 11/18/18 Isosorbide Mononitrate [Imdur] 90 mg PO DAILY 02/29/20 Levothyroxine [Synthroid] 50 mcg PO DAILY 02/29/20 Memantine HCl [Memantine HCl ER] 14 mg PO DAILY 02/29/20 furosemide 20 mg tablet 20 mg PO BID tab 04/19/20 levetiracetam 500 mg tablet 500 mg PO BID tab 04/19/20 lisinopril 10 mg tablet 10 mg PO DAILY tab 04/19/20 Insulin Glargine [Lantus SoloStar Pen] 75 units SQ DAILY 05/18/20 Omeprazole [Prilosec] 20 mg PO DAILY 05/18/20 Sennosides/Docusate Sodium [Senexon-S 50-8.6 mg Tablet] 1 tab PO DAILY 05/18/20 Acetaminophen [Tylenol Tablet] 650 mg PO Q6H PRN PRN tab 05/22/20 Bisacodyl [Dulcolax] 5 mg PO DAILY PRN PRN tab 05/22/20 Chlorhexidine Gluc 2% Cloth 1 ea TOPICAL DAILY [facility] 05/22/20 Insulin Lispro [Humalog KwikPen] 24 unit SUBCUT BIDLS insuln.pen 05/22/20 Insulin Lispro [Humalog KwikPen] 26 unit SUBCUT BREAKFAST insuln.pen 05/22/20 Insulin Lispro [Humalog KwikPen] See Protocol SUBCUT ACHS insuln.pen 05/22/20 Magnesium Hydroxide [Milk Of Magnesia] 30 ml PO DAILY PRN PRN udc 05/22/20 Nystatin Powder [Mycostatin Powder] 1 applic TOPICAL TID bottle 05/22/20
--- NOTE | 2020-05-22 13:16 | CASEMGMT ---
MINAL spoke with patient and her daughter. MINAL explained we will need to wait on her insurance to approve her before she can be discharged to [facility]. MINAL explained this likely will not be today. MINAL spoke with Rola at [facility] and she did receive MINAL's fax. She will start the pre-cert. Plan: [facility] pending insurance approval. Tonja ROJAS
--- NOTE | 2020-05-22 14:14 | PN_ITS ---
<Steven Schneider - Last Filed: 05/22/20 14:14> Patient Problems: Active and Suspected Problems (Last Reviewed 04/19/20 @ 14:[address] Trip Forman MD) Severe sepsis (Acute) Cellulitis of right lower leg (Acute) Hyperglycemia due to type 2 diabetes mellitus (Acute) GRIS (acute kidney injury) (Acute) Dehydration (Acute) Sepsis with metabolic encephalopathy (Acute) Reason for Visit: cellulitis Subjective: erythema improved. pain improved. confusion resolved. No fever/chlls. No SOB/cough, nausea, vomiting, or diarrhea. No LE edema. CT showed soft tissue swelling. Vitals/I&O's: Vital Signs Temp Pulse Resp BP Pulse Ox 97.8 F 86 16 136/68 H 96 05/22/20 08:33 05/22/20 08:35 05/22/20 08:33 05/22/20 08:33 05/22/20 08:33 Oxygen Delivery Method Room Air Weight: 221 lb 12.56 oz Body Mass Index (BMI) 36.9 Finger Stick Blood Glucose 438 Intake and Output for Last 24 Hours 05/20/20 05/21/20 05/22/20 23:59 23:59 23:59 Intake Total 3.25 / 210.25 1734 / 1734 637 / 637 Balance 2102. / 2102. 1734 / 1734 637 / 637 General: Alert, Oriented x3, Cooperative HEENT: Atraumatic, PERRLA, EOMI, Normocephalic Neck: Supple, No JVD, Negative Carotid Bruits Lungs: Clear to auscultation, Normal air movement Cardiovascular: Regular rate, No murmurs Abdomen: Bowel Sounds Present, Soft, Non Tender Extremities: No edema, Capillary Refill Less than 3 Seconds Skin: No rashes, No breakdown, - - erythema resolved. tender to palp. Musculoskeletal: No Tenderness to Palpation of Joints or Extremities Neurological: Cranial nerves II-XII grossly intact Psych/Mental Status: Normal Affect, Appropriate, Alert and oriented to time, place, person, mood and affect Microbiology Past 72 Hours 05/18/20 15:55 Blood Culture (Wb) - Anticubital Left Blood Culture - Preliminary No growth in 48 hours. 05/18/20 15:45 Blood Culture (Wb) - Left Wrist Blood Culture - Preliminary No growth in 48 hours. Laboratory Results 05/21/20 16:30: POC Glucose 113 H 05/21/20 21:18: POC Glucose 177 H 05/22/20 00:37: Vancomycin Trough 16.0 H 05/22/20 03:50: WBC 7.5, RBC 4.29, Hgb 11.0 L, Hct 34.8 L, MCV 81.1, MCH 25.6 L, MCHC 31.6 L, RDW Std Deviation 47.3 H, RDW Coeff of Candace 16.1 H, Plt Count 216, MPV 12.1 H, Immature Gran % (Auto) 0.800, Neut % (Auto) 85.6 H, Lymph % (Auto) 12.0 L, [place] % (Auto) 1.5, Eos % (Auto) 0.0, Baso % (Auto) 0.1, Absolute Neuts (auto) 6.4, Absolute Lymphs (auto) 0.90, Nucleated RBC % 0 05/22/20 03:50: Sodium 146 H, Potassium 4.4, Chloride 111 H, Carbon Dioxide 26.0, Anion Gap 9, BUN 16, Creatinine 1.00, Estim Creat Clear Calc 41.33, Est GFR (MDRD) Af Amer 70, Est GFR (MDRD) Non-Af 58 L, BUN/Creatinine Ratio 16.1, Glucose 290 H, Calcium 8.8 05/22/20 03:50: Troponin I < 0.015 05/22/20 06:38: Troponin I < 0.015 05/22/20 08:23: POC Glucose 279 H 05/22/20 09:20: Troponin I < 0.015 05/22/20 11:43: POC Glucose 287 H Current Medications Acetaminophen (Tylenol) 650 mg PO Q6H PRN PRN PRN Reason: Pain Score 1-10/Temp > 100.7 F Last Admin: 05/21/20 15:48 Dose: 650 mg Documented by: Bisacodyl (Dulcolax) 5 mg PO DAILY PRN PRN PRN Reason: Constipation Chlorhexidine Gluconate () 1 each TOPICAL DAILY JEAN Last Admin: 05/22/20 08:29 Dose: Not Given Documented by: Dextrose (D50w Syringe) 0 gm IV X1 PRN; Protocol PRN Reason: Hypoglycemia Glucagon () 1 mg IM .X1 PRN PRN Reason: Hypoglycemia Heparin Sodium (Porcine) (Heparin Na) 5,000 unit SC Q8 [facility] Last Admin: 05/22/20 05:17 Dose: 5,000 unit Documented by: Ampicillin Sodium/Sulbactam (Sodium 3 gm/ Sodium Chloride) 112 mls @ 150 mls/hr IV Q12 JEAN Last Infusion: 05/22/20 09:52 Dose: Infused Documented by: Sodium Chloride () 250 mls @ 15 mls/hr IV .[id number] PRN PRN Reason: Saline Flush Last Infusion: 05/20/20 16:32 Dose: Infused Documented by: Sodium Chloride () 250 mls @ 15 mls/hr IV .[id number] PRN PRN Reason: Additional IVPB Infusion Vancomycin IV Pharmacy to Dose (1 ea/ Sodium Chloride) 500 mls @ 250 mls/hr IV X1 PRN; Protocol PRN Reason: Rx to Dose Vancomycin HCl (Vancomycin) 1,000 mg in 200 mls @ 200 mls/hr IV Q12H [facility] Last Infusion: 05/22/20 13:39 Dose: Infused Documented by: Insulin Glargine (Lantus (Bkc)) 75 units SC DAILY [facility] Last Admin: 05/22/20 09:53 Dose: 75 u Documented by: Insulin Human Lispro (Humalog Kwikpen (Bkc)) 0 unit SC ACHS [facility]; Protocol Last Admin: 05/22/20 11:45 Dose: 9 u Documented by: Insulin Human Lispro (Humalog Kwikpen (Bkc)) 26 unit SC BREAKFAST [facility] Last Admin: 05/22/20 08:24 Dose: 26 u Documented by: Insulin Human Lispro (Humalog Kwikpen (Bkc)) 24 unit SC BIDLS [facility] Last Admin: 05/22/20 11:45 Dose: 24 unit Documented by: Isosorbide Mononitrate (Imdur) 90 mg PO DAILY [facility] Last Admin: 05/22/20 08:35 Dose: 90 mg Documented by: Levetiracetam (Keppra Tablet) 500 mg PO BID [facility] Last Admin: 05/22/20 08:35 Dose: 500 mg Documented by: Levothyroxine Sodium (Synthroid) 50 mcg PO DAILY@0600 [facility] Last Admin: 05/22/20 05:17 Dose: 50 mcg Documented by: Magnesium Hydroxide (Milk Of Magnesia) 30 ml PO DAILY PRN PRN PRN Reason: Constipation Memantine (Namenda) 5 mg PO BID [facility] Last Admin: 05/22/20 08:35 Dose: 5 mg Documented by: Metoprolol Succinate (Toprol Xl (Beta Susy)) 50 mg PO DAILY [facility] Last Admin: 05/22/20 08:35 Dose: 50 mg Documented by: Nitroglycerin (Nitrostat) 0.4 mg SUBLINGUAL Q5M PRN PRN Reason: CARDIAC/CHEST PAIN Last Admin: 05/22/20 04:10 Dose: 1 tab Documented by: Nystatin (Mycostatin Powder) 1 applic TOPICAL TID [facility]; Protocol Last Admin: 05/22/20 05:17 Dose: 1 applicatio Documented by: Pantoprazole Sodium (Protonix) 20 mg PO DAILY [facility] Last Admin: 05/22/20 08:35 Dose: 20 mg Documented by: Prasugrel (Effient) 10 mg PO DAILY [facility] Last Admin: 05/22/20 08:35 Dose: 10 mg Documented by: Senna/Docusate Sodium (Senokot-S, Zamzam-Colace) 1 tablet PO DAILY [facility] Last Admin: 05/22/20 08:35 Dose: 1 tablet Documented by: Simvastatin (Zocor) 40 mg PO QHS [facility] Last Admin: 05/21/20 21:26 Dose: 40 mg Documented by: Sodium Chloride () 10 - 40 ml IV UD PRN PRN Reason: SALINE FLUSH Last Admin: 05/22/20 08:43 Dose: 10 ml Documented by: Medical Necessity - Tobacco Use Smoking Status: Former smoker Tobacco Use: Non-smoker Assessment/Plan All Active Problems (Last Reviewed 04/19/20 @ 14:[address] Trip Forman MD) Severe sepsis (Acute) Cellulitis of right lower leg (Acute) Hyperglycemia due to type 2 diabetes mellitus (Acute) GRIS (acute kidney injury) (Acute) Dehydration (Acute) Sepsis with metabolic encephalopathy (Acute) Noncompliance (Acute) Fatigue (Acute) History of coronary artery stent placement (Resolved 01/25/11) GRIS (acute kidney injury) (Resolved) Acute cystitis (Resolved) Acute delirium (Resolved) Chest pain (Resolved) Dehydration (Resolved) Delirium (Resolved) Delirium (Resolved) Fall (Resolved) Hypoglycemia (Resolved) Influenza A (Resolved) Migraine (Resolved) Pneumococcal pneumonia (Resolved) Sepsis (Resolved) Sepsis (Resolved) UTI (urinary tract infection) (Resolved) UTI (urinary tract infection) (Resolved) 1. Acute severe sepsis secondary to right lower extremity cellulitis- Continue unasyn. Vanc was added yesterday. Tx to augmentin at dc. CT LE with soft tissue swelling. 2. Type 2 diabetes with hyperglycemia, obesity secondary to medication noncompliance-titrate insulin to response. Pt was not using insulin at home due to no syringes. 3. Acute kidney injury secondary to severe sepsis - resolved. 4. Acute metabolic encephalopathy secondary to #1-resolved. 5. History of A. fib, sick sinus syndrome-EKG shows atrial fibrillation. Patient is not on anticoagulation. Continue metoprolol. 6. History of migraine -on Keppra 7. History of chronic diastolic congestive heart failure-resume lasix. 8.CAD -history of stents. Continue Effient, statin, Imdur, Toprol. 9. Hypothyroidism - synthroid. 10. Suspected dementia - continue memantine. follow up with PCP. DVT prophylaxis: Heparin DC planning: SNF placement. This patient was seen by Steven Schneider PA-C under the supervision of Doctor Shiv <Segundo Chaney - Last Filed: 05/22/20 17:34> Reason for Visit: Right lower extremity cellulitis Objective: Patient right lower leg swelling, erythema and pain is gotten better. Not is restricted to right lower one third. Vital signs reviewed. No fever Physical exam General: Alert, Oriented x3, Cooperative HEENT: Atraumatic, PERRLA, EOMI, Normocephalic Oral: No Gingival or Mucosal Lesions/ Ulcerations Neck: Supple, No JVD, Negative Carotid Bruits Lungs: Air entry diminished in bilateral lung bases. No crepitation/rhonchi Cardiovascular: Regular rate, Regular Rhythm, Normal S1, Normal S2, No murmurs. monitor tech shows regular sinus rhythm. Abdomen: Bowel Sounds Present, Soft, Non Tender, Non-Distended : No renal angle tenderness. No suprapubic tenderness. Extremities: Right lower leg edema, Capillary Refill Less than 3 Seconds Skin: Redness, mild tenderness over distal right lower third leg. No open ulcer. Musculoskeletal: No Tenderness to Palpation of Joints or Extremities Neurological: Cranial nerves II-XII grossly intact, Deep Tendon Reflexes 2+/4 and Symmetrical, Neuro grossly intact Psych/Mental Status: Normal Affect, Appropriate. Vitals/I&O's: Vital Signs Temp Pulse Resp BP Pulse Ox 97.9 F 78 14 145/73 H 95 05/22/20 14:37 05/22/20 15:00 05/22/20 14:37 05/22/20 14:37 05/22/20 14:37 Oxygen Delivery Method Room Air Weight: 221 lb 12.56 oz Body Mass Index (BMI) 36.9 Finger Stick Blood Glucose 438 Intake and Output for Last 24 Hours 05/20/20 05/21/20 05/22/20 23:59 23:59 23:59 Intake Total 2103.25 / 210.25 1734 / 1734 637 / 637 Balance 2103.25 / 2102. 1734 / 1734 637 / 637 Microbiology Past 72 Hours 05/18/20 15:55 Blood Culture (Wb) - Anticubital Left Blood Culture - Preliminary No growth in 48 hours. 05/18/20 15:45 Blood Culture (Wb) - Left Wrist Blood Culture - Preliminary No growth in 48 hours. Laboratory Results 05/21/20 21:18: POC Glucose 177 H 05/22/20 00:37: Vancomycin Trough 16.0 H 05/22/20 03:50: WBC 7.5, RBC 4.29, Hgb 11.0 L, Hct 34.8 L, MCV 81.1, MCH 25.6 L, MCHC 31.6 L, RDW Std Deviation 47.3 H, RDW Coeff of Candace 16.1 H, Plt Count 216, MPV 12.1 H, Immature Gran % (Auto) 0.800, Neut % (Auto) 85.6 H, Lymph % (Auto) 12.0 L, [place] % (Auto) 1.5, Eos % (Auto) 0.0, Baso % (Auto) 0.1, Absolute Neuts (auto) 6.4, Absolute Lymphs (auto) 0.90, Nucleated RBC % 0 05/22/20 03:50: Sodium 146 H, Potassium 4.4, Chloride 111 H, Carbon Dioxide 26.0, Anion Gap 9, BUN 16, Creatinine 1.00, Estim Creat Clear Calc 41.33, Est GFR (MDRD) Af Amer 70, Est GFR (MDRD) Non-Af 58 L, BUN/Creatinine Ratio 16.1, Glucose 290 H, Calcium 8.8 05/22/20 03:50: Troponin I < 0.015 05/22/20 06:38: Troponin I < 0.015 05/22/20 08:23: POC Glucose 279 H 05/22/20 09:20: Troponin I < 0.015 05/22/20 11:43: POC Glucose 287 H 05/22/20 16:55: POC Glucose 296 H 05/22/20 : COVID-19 (YAZAN) Not Detected Current Medications Acetaminophen (Tylenol) 650 mg PO Q6H PRN PRN PRN Reason: Pain Score 1-10/Temp > 100.7 F Last Admin: 05/21/20 15:48 Dose: 650 mg Documented by: Bisacodyl (Dulcolax) 5 mg PO DAILY PRN PRN PRN Reason: Constipation Chlorhexidine Gluconate () 1 each TOPICAL DAILY [facility] Last Admin: 05/22/20 08:29 Dose: Not Given Documented by: Dextrose (D50w Syringe) 0 gm IV X1 PRN; Protocol PRN Reason: Hypoglycemia Glucagon () 1 mg IM .X1 PRN PRN Reason: Hypoglycemia Heparin Sodium (Porcine) (Heparin Na) 5,000 unit SC Q8 [facility] Last Admin: 05/22/20 14:33 Dose: 5,000 unit Documented by: Ampicillin Sodium/Sulbactam (Sodium 3 gm/ Sodium Chloride) 112 mls @ 150 mls/hr IV Q12 [facility] Last Infusion: 05/22/20 09:52 Dose: Infused Documented by: Sodium Chloride () 250 mls @ 15 mls/hr IV .[id number] PRN PRN Reason: Saline Flush Last Infusion: 05/20/20 16:32 Dose: Infused Documented by: Sodium Chloride () 250 mls @ 15 mls/hr IV .[id number] PRN PRN Reason: Additional IVPB Infusion Insulin Glargine (Lantus (Bkc)) 75 units SC DAILY [facility] Last Admin: 05/22/20 09:53 Dose: 75 u Documented by: Insulin Human Lispro (Humalog Kwikpen (Bkc)) 0 unit SC ACHS [facility]; Protocol Last Admin: 05/22/20 16:56 Dose: 9 u Documented by: Insulin Human Lispro (Humalog Kwikpen (Bkc)) 26 unit SC BREAKFAST [facility] Last Admin: 05/22/20 08:24 Dose: 26 u Documented by: Insulin Human Lispro (Humalog Kwikpen (Bkc)) 24 unit SC BIDLS [facility] Last Admin: 05/22/20 16:56 Dose: 24 unit Documented by: Isosorbide Mononitrate (Imdur) 90 mg PO DAILY [facility] Last Admin: 05/22/20 08:35 Dose: 90 mg Documented by: Levetiracetam (Keppra Tablet) 500 mg PO BID [facility] Last Admin: 05/22/20 08:35 Dose: 500 mg Documented by: Levothyroxine Sodium (Synthroid) 50 mcg PO DAILY@0600 [facility] Last Admin: 05/22/20 05:17 Dose: 50 mcg Documented by: Magnesium Hydroxide (Milk Of Magnesia) 30 ml PO DAILY PRN PRN PRN Reason: Constipation Memantine (Namenda) 5 mg PO BID [facility] Last Admin: 05/22/20 08:35 Dose: 5 mg Documented by: Metoprolol Succinate (Toprol Xl (Beta Susy)) 50 mg PO DAILY [facility] Last Admin: 05/22/20 08:35 Dose: 50 mg Documented by: Nitroglycerin (Nitrostat) 0.4 mg SUBLINGUAL Q5M PRN PRN Reason: CARDIAC/CHEST PAIN Last Admin: 05/22/20 04:10 Dose: 1 tab Documented by: Nystatin (Mycostatin Powder) 1 applic TOPICAL TID [facility]; Protocol Last Admin: 05/22/20 14:33 Dose: 1 applicatio Documented by: Pantoprazole Sodium (Protonix) 20 mg PO DAILY [facility] Last Admin: 05/22/20 08:35 Dose: 20 mg Documented by: Prasugrel (Effient) 10 mg PO DAILY [facility] Last Admin: 05/22/20 08:35 Dose: 10 mg Documented by: Senna/Docusate Sodium (Senokot-S, Zamzam-Colace) 1 tablet PO DAILY [facility] Last Admin: 05/22/20 08:35 Dose: 1 tablet Documented by: Simvastatin (Zocor) 40 mg PO QHS [facility] Last Admin: 05/21/20 21:26 Dose: 40 mg Documented by: Sodium Chloride () 10 - 40 ml IV UD PRN PRN Reason: SALINE FLUSH Last Admin: 05/22/20 08:43 Dose: 10 ml Documented by: STROKE Vital Signs/Narrative: Vital Signs Temp Pulse Resp BP Pulse Ox 05/22/20 15:00 78 05/22/20 14:37 97.9 F 84 14 145/73 H 95 Assessment/Plan This patient was seen in conjunction with Steven ACUNA. I have independently interviewed and examined the patient and reviewed pertinent history, examination findings, laboratory and plan of management. I have reviewed the note and agree with the documented findings with the few additional points. In brief, patient is 74-year-old female admitted with severe sepsis secondary to right lower extremity cellulitis. Currently on Unasyn. No fever or chills. Type 2 diabetes mellitus with hyperglycemia. Short-acting and Lantus insulin dose increased. Patient also has acute kidney injury secondary to severe sepsis. Acute kidney injury resolved. Patient also has paroxysmal A. fib with sick sinus syndrome. monitor tech sinus rhythm at 86/min Other comorbidities as mentioned above including chronic diastolic heart failure, coronary artery disease, hypothyroidism and suspected dementia. I have discussed my assessment with Steven ACUNA and orders have been reviewed. Inpatient E&M: [id number] Subs Hosp L2
--- NOTE | 2020-05-22 14:35 | CHAPLAIN ---
Type of Pastoral Visit _x__ Initial Visit ___ Follow-up Visit ___ On-call Visit ___ General Patient Visit ___ Spiritual Assessment ___ Family Conference ___ Bereavement ___ Rapid Response ___ Code Blue ___ Other (describe below) Pastoral Care Referral From _x__ Patient ___ Family ___ Nurse ___ Physician ___ [employer]er ___ Networking Specialist ___ Other (describe below) Sacrament/Intervention _x__ Active listening ___ Anointing ___ Faith ___ Bereavement ___ Communion _x__ Cierra exploration ___ _x__ Life review _x__ Prayer ___ Reconciliation ___ Sacrament of Sick _x__ Supportive presence ___ Wedding ___ Other (describe below) Pastoral Comments
[2020-05-22 17:06] LABS: Bedside Glucose 296 mg/dL (70-110)
[2020-05-22] MEDS: Simvastatin 20 MG Tablet 40 MG PO (21:02)
[2020-05-22 22:11] LABS: Bedside Glucose 225 mg/dL (70-110)
[2020-05-23] VITALS (7 sets, daily range): BP systolic 136–152; BP diastolic 66–86; PULSE 70–90; RESP 16–18; TEMP 36.6–37.2; O2SAT 95–98
[2020-05-23] MEDS: Acetaminophen 325 MG Tablet 650 MG PO (02:58)
[2020-05-23] MEDS: Nystatin Powder 15gm Bottle 1 APPLIC TOPICAL ×2 (06:13→14:44)
[2020-05-23] MEDS: Heparin Injection (Vial) 5,000 UNIT/ML VIAL 5000 UNIT SC ×2 (06:13→14:44)
[2020-05-23] MEDS: Levothyroxine 50 MCG Tablet PO (06:13)
--- NOTE | 2020-05-23 07:35 | TREXTCA.CO_ITS ---
<Steven Schneider - Last Filed: 05/22/20 11:16> - Diet 05/19/20 10:35 Diet: Cardiac: Calorie-Controlled Is pt able to select menu?: No How many daily calories?: 1800 calorie - Routine Orders/Code Status Suppository Type: Dulcolax 10mg Suppository Frequency: Daily PRN Routine Lab Work: CBC - 5 days, BMP - 5 days Code Status: DNRCC-A - Wound(s) RLE Wound Type: Cellulitis. BLE Wound Type: Scabs. - Therapies Physical Therapy: Eval and Treat Occupational Therapy: Eval and Treat - Problem/Diagnosis (1) Severe sepsis Status: Acute Current Visit: Yes (2) Cellulitis of right lower leg Status: Acute Current Visit: Yes (3) Hyperglycemia due to type 2 diabetes mellitus Status: Acute Current Visit: Yes (4) GRIS (acute kidney injury) Status: Acute Current Visit: Yes (5) Sepsis with metabolic encephalopathy Status: Acute Current Visit: Yes (6) History of permanent cardiac pacemaker placement Status: Chronic Current Visit: No (7) Sick sinus syndrome Status: Chronic Current Visit: No (8) Longstanding persistent atrial fibrillation Status: Chronic Current Visit: No (9) History of coronary artery stent placement Status: Resolved Comment: [id number] LAD w/ 3.5 x 12 mm [employer] Express 10/23/2004; [id number] Inferolateral Marginal Branch w/ 3.0 x 9 mm [place] Stent 01/25/2011 @ [facility] Current Visit: No (10) Right bundle branch block (RBBB) Status: Chronic Current Visit: No (11) Chronic diastolic (congestive) heart failure Status: Chronic Current Visit: No (12) Nonrheumatic aortic (valve) stenosis Status: Chronic Current Visit: No (13) Essential (primary) hypertension Status: Chronic Current Visit: No (14) Hyperlipidemia Status: Chronic Current Visit: No (15) Bone cancer Status: Chronic Current Visit: No - Allergies/Procedures Done in Hospital Allergies/Adverse Reactions: Allergies atorvastatin calcium [From Lipitor] Allergy (Verified 11/13/19 10:08) dont remember codeine Allergy (Verified 11/13/19 10:08) Rash iodine Allergy (Verified 11/13/19 10:08) Rash Latex, Natural Rubber Allergy (Verified 11/13/19 10:08) Rash lovastatin Allergy (Verified 11/13/19 10:08) Rash rosuvastatin calcium [From Crestor] Allergy (Verified 11/13/19 10:08) rash\ naproxen [From Naprosyn] Adverse Reaction (Verified 11/13/19 10:08) Upset Stomach pregabalin [From Lyrica] Adverse Reaction (Verified 11/13/19 10:08) Upset Stomach Sulfa (Sulfonamide Antibiotics) Adverse Reaction (Verified 11/13/19 10:08) Upset Stomach Procedures: None - Type of Care/Length of Stay Estimated LOS: Convalescent Care Less Than 30 days Type of Care Needed: Skilled Rehab Potential: Fair Prognosis: Fair - Additional Orders/Day of Discharge Day of Discharge: 05/22/20 - Dietary and Speech Recommendations Dietitian Recommendations/Changes: As medically able, rec STEPHON to 1800 jony Cardiac/low sodium d/t pmhx - Follow Up Care Primary Care Physician: Emerita Gottlieb MD [Primary Care Provider] - Please follow up with your Primary Care Physician in: 2 weeks <Segundo Chaney - Last Filed: 05/23/20 07:34> - Diet 05/19/20 10:35 Diet: Cardiac: Calorie-Controlled Is pt able to select menu?: No How many daily calories?: 1800 calorie
[2020-05-23 09:16] LABS: Bedside Glucose 84 mg/dL (70-110)
[2020-05-23] MEDS: Isosorbide Mononitrate 30 MG Tablet 90 MG PO (09:44)
[2020-05-23] MEDS: Metoprolol(XL)Succ 50 MG Tablet PO (09:45)
[2020-05-23] MEDS: levETIRAcetam 500 MG Tablet PO (09:45)
[2020-05-23] MEDS: Pantoprazole Sodium 20 MG Tablet PO (09:45)
[2020-05-23] MEDS: Senna/Docusate Sodium 1 Tablet PO (09:45)
[2020-05-23] MEDS: Memantine Hydrochloride 5 MG Tablet PO (09:45)
[2020-05-23] MEDS: 0.9% Saline Lock 10 ML Syringe IV (09:46)
[2020-05-23 11:46] LABS: Bedside Glucose 213 mg/dL (70-110)
[2020-05-23] MEDS: Insulin Lispro 100 UNIT/ML INSULN.PEN SC ×2 (11:58→17:44)
--- NOTE | 2020-05-23 13:53 | PN_ITS ---
<Steven Schneider - Last Filed: 05/23/20 13:53> Patient Problems: Active and Suspected Problems (Last Reviewed 04/19/20 @ 14:[address] Trip Forman MD) Severe sepsis (Acute) Cellulitis of right lower leg (Acute) Hyperglycemia due to type 2 diabetes mellitus (Acute) GRIS (acute kidney injury) (Acute) Dehydration (Acute) Sepsis with metabolic encephalopathy (Acute) Reason for Visit: RLE cellulitis Subjective: No complaints. Awaiting placement Vitals/I&O's: Vital Signs Temp Pulse Resp BP Pulse Ox 97.8 F 84 16 144/79 H 97 05/23/20 09:40 05/23/20 09:45 05/23/20 09:40 05/23/20 09:40 05/23/20 09:40 Oxygen Delivery Method Room Air Weight: 220 lb 10.923 oz Body Mass Index (BMI) 36.9 Finger Stick Blood Glucose 438 Intake and Output for Last 24 Hours 05/21/20 05/22/20 05/23/20 23:59 23:59 23:59 Intake Total 1734 / 1734 749 / 749 572 / 572 Balance 1734 / 1734 749 / 749 572 / 572 General: Alert, Oriented x3, Cooperative HEENT: Atraumatic, PERRLA, EOMI, Normocephalic Neck: Supple, No JVD, Negative Carotid Bruits Lungs: Clear to auscultation, Normal air movement Cardiovascular: Regular rate, No murmurs Abdomen: Bowel Sounds Present, Soft, Non Tender Extremities: No edema, Capillary Refill Less than 3 Seconds, - - RLE improved swelling, still mild tendnerness to palpatation. Skin: No rashes, No breakdown Musculoskeletal: No Tenderness to Palpation of Joints or Extremities Neurological: Cranial nerves II-XII grossly intact Psych/Mental Status: Normal Affect, Appropriate, Alert and oriented to time, place, person, mood and affect Microbiology Past 72 Hours 05/18/20 15:55 Blood Culture (Wb) - Anticubital Left Blood Culture - Preliminary No growth in 48 hours. 05/18/20 15:45 Blood Culture (Wb) - Left Wrist Blood Culture - Preliminary No growth in 48 hours. Laboratory Results 05/22/20 16:55: POC Glucose 296 H 05/22/20 20:58: POC Glucose 225 H 05/22/20 : COVID-19 (YAZAN) Not Detected 05/23/20 08:22: POC Glucose 84 05/23/20 10:58: POC Glucose 213 H Current Medications Acetaminophen (Tylenol) 650 mg PO Q6H PRN PRN PRN Reason: Pain Score 1-10/Temp > 100.7 F Last Admin: 05/23/20 02:58 Dose: 650 mg Documented by: Bisacodyl (Dulcolax) 5 mg PO DAILY PRN PRN PRN Reason: Constipation Chlorhexidine Gluconate () 1 each TOPICAL DAILY [facility] Last Admin: 05/23/20 09:43 Dose: Not Given Documented by: Dextrose (D50w Syringe) 0 gm IV X1 PRN; Protocol PRN Reason: Hypoglycemia Glucagon () 1 mg IM .X1 PRN PRN Reason: Hypoglycemia Heparin Sodium (Porcine) (Heparin Na) 5,000 unit SC Q8 [facility] Last Admin: 05/23/20 06:13 Dose: 5,000 unit Documented by: Ampicillin Sodium/Sulbactam (Sodium 3 gm/ Sodium Chloride) 112 mls @ 150 mls/hr IV Q12 [facility] Last Infusion: 05/23/20 10:34 Dose: Infused Documented by: Sodium Chloride () 250 mls @ 15 mls/hr IV .[id number] PRN PRN Reason: Saline Flush Last Infusion: 05/20/20 16:32 Dose: Infused Documented by: Sodium Chloride () 250 mls @ 15 mls/hr IV .[id number] PRN PRN Reason: Additional IVPB Infusion Insulin Glargine (Lantus (Bkc)) 75 units SC DAILY [facility] Last Admin: 05/23/20 11:00 Dose: 75 u Documented by: Insulin Human Lispro (Humalog Kwikpen (Bkc)) 0 unit SC ACHS [facility]; Protocol Last Admin: 05/23/20 11:58 Dose: 2 u Documented by: Insulin Human Lispro (Humalog Kwikpen (Bkc)) 30 unit SC TIDAC [facility] Isosorbide Mononitrate (Imdur) 90 mg PO DAILY [facility] Last Admin: 05/23/20 09:44 Dose: 90 mg Documented by: Levetiracetam (Keppra Tablet) 500 mg PO BID [facility] Last Admin: 05/23/20 09:45 Dose: 500 mg Documented by: Levothyroxine Sodium (Synthroid) 50 mcg PO DAILY@0600 [facility] Last Admin: 05/23/20 06:13 Dose: 50 mcg Documented by: Magnesium Hydroxide (Milk Of Magnesia) 30 ml PO DAILY PRN PRN PRN Reason: Constipation Memantine (Namenda) 5 mg PO BID [facility] Last Admin: 05/23/20 09:45 Dose: 5 mg Documented by: Metoprolol Succinate (Toprol Xl (Beta Susy)) 50 mg PO DAILY [facility] Last Admin: 05/23/20 09:45 Dose: 50 mg Documented by: Nitroglycerin (Nitrostat) 0.4 mg SUBLINGUAL Q5M PRN PRN Reason: CARDIAC/CHEST PAIN Last Admin: 05/22/20 04:10 Dose: 1 tab Documented by: Nystatin (Mycostatin Powder) 1 applic TOPICAL TID [facility]; Protocol Last Admin: 05/23/20 06:13 Dose: 1 applicatio Documented by: Pantoprazole Sodium (Protonix) 20 mg PO DAILY [facility] Last Admin: 05/23/20 09:45 Dose: 20 mg Documented by: Prasugrel (Effient) 10 mg PO DAILY [facility] Last Admin: 05/23/20 09:44 Dose: 10 mg Documented by: Senna/Docusate Sodium (Senokot-S, Zamzam-Colace) 1 tablet PO DAILY [facility] Last Admin: 05/23/20 09:45 Dose: 1 tablet Documented by: Simvastatin (Zocor) 40 mg PO QHS [facility] Last Admin: 05/22/20 21:02 Dose: 40 mg Documented by: Sodium Chloride () 10 - 40 ml IV UD PRN PRN Reason: SALINE FLUSH Last Admin: 05/23/20 09:46 Dose: 10 ml Documented by: Medical Necessity - Tobacco Use Smoking Status: Former smoker Tobacco Use: Non-smoker Assessment/Plan All Active Problems (Last Reviewed 04/19/20 @ 14:[address] Trip Forman MD) Severe sepsis (Acute) Cellulitis of right lower leg (Acute) Hyperglycemia due to type 2 diabetes mellitus (Acute) GRIS (acute kidney injury) (Acute) Dehydration (Acute) Sepsis with metabolic encephalopathy (Acute) Noncompliance (Acute) Fatigue (Acute) History of coronary artery stent placement (Resolved 01/25/11) GRIS (acute kidney injury) (Resolved) Acute cystitis (Resolved) Acute delirium (Resolved) Chest pain (Resolved) Dehydration (Resolved) Delirium (Resolved) Delirium (Resolved) Fall (Resolved) Hypoglycemia (Resolved) Influenza A (Resolved) Migraine (Resolved) Pneumococcal pneumonia (Resolved) Sepsis (Resolved) Sepsis (Resolved) UTI (urinary tract infection) (Resolved) UTI (urinary tract infection) (Resolved) 1. Acute severe sepsis secondary to right lower extremity cellulitis- Continue unasyn. Tx to augmentin at dc. CT LE with soft tissue swelling. 2. Type 2 diabetes with hyperglycemia, obesity secondary to medication noncompliance-titrate insulin to response. Pt was not using insulin at home due to no syringes. 3. Acute kidney injury secondary to severe sepsis - resolved. 4. Acute metabolic encephalopathy secondary to #1-resolved. 5. History of A. fib, sick sinus syndrome-EKG shows atrial fibrillation. Patient is not on anticoagulation. Continue metoprolol. 6. History of migraine -on Keppra 7. History of chronic diastolic congestive heart failure-resume lasix. 8.CAD -history of stents. Continue Effient, statin, Imdur, Toprol. 9. Hypothyroidism - synthroid. 10. Suspected dementia - continue memantine. follow up with PCP. DVT prophylaxis: Heparin DC planning: SNF placement. This patient was seen by Steven Schneider PA-C under the supervision of Doctor Shiv <Segundo Chaney - Last Filed: 05/23/20 14:03> Reason for Visit: Right lower extremity cellulitis Subjective: Patient right lower leg pain, swelling and it maximum improved. No fever chills. Physical exam General: Alert, Oriented x3, Cooperative HEENT: Atraumatic, PERRLA, EOMI, Normocephalic Oral: No Gingival or Mucosal Lesions/ Ulcerations Neck: Supple, No JVD, Negative Carotid Bruits Lungs: Air entry diminished in bilateral lung bases. No crepitation/rhonchi Cardiovascular: Regular rate, Regular Rhythm, Normal S1, Normal S2, No murmurs. ekg monitor tech shows regular sinus rhythm. Abdomen: Bowel Sounds Present, Soft, Non Tender, Non-Distended : No renal angle tenderness. No suprapubic tenderness. Extremities: Right lower leg edema, Capillary Refill Less than 3 Seconds Skin: Redness, mild tenderness over distal right lower third leg. No open ulcer. Musculoskeletal: No Tenderness to Palpation of Joints or Extremities Neurological: Cranial nerves II-XII grossly intact, Deep Tendon Reflexes 2+/4 and Symmetrical, Neuro grossly intact Psych/Mental Status: Normal Affect, Appropriate. Vitals/I&O's: Vital Signs Temp Pulse Resp BP Pulse Ox 97.8 F 84 16 144/79 H 97 05/23/20 09:40 05/23/20 09:45 05/23/20 09:40 05/23/20 09:40 05/23/20 09:40 Oxygen Delivery Method Room Air Weight: 220 lb 10.923 oz Body Mass Index (BMI) 36.9 Finger Stick Blood Glucose 438 Intake and Output for Last 24 Hours 05/21/20 05/22/20 05/23/20 23:59 23:59 23:59 Intake Total 1734 / 1734 749 / 749 572 / 572 Balance 1734 / 1734 749 / 749 572 / 572 Microbiology Past 72 Hours 05/18/20 15:55 Blood Culture (Wb) - Anticubital Left Blood Culture - Preliminary No growth in 48 hours. 05/18/20 15:45 Blood Culture (Wb) - Left Wrist Blood Culture - Preliminary No growth in 48 hours. Laboratory Results 05/22/20 16:55: POC Glucose 296 H 05/22/20 20:58: POC Glucose 225 H 05/22/20 : COVID-19 (YAZAN) Not Detected 05/23/20 08:22: POC Glucose 84 05/23/20 10:58: POC Glucose 213 H Current Medications Acetaminophen (Tylenol) 650 mg PO Q6H PRN PRN PRN Reason: Pain Score 1-10/Temp > 100.7 F Last Admin: 05/23/20 02:58 Dose: 650 mg Documented by: Bisacodyl (Dulcolax) 5 mg PO DAILY PRN PRN PRN Reason: Constipation Chlorhexidine Gluconate () 1 each TOPICAL DAILY [facility] Last Admin: 05/23/20 09:43 Dose: Not Given Documented by: Dextrose (D50w Syringe) 0 gm IV X1 PRN; Protocol PRN Reason: Hypoglycemia Glucagon () 1 mg IM .X1 PRN PRN Reason: Hypoglycemia Heparin Sodium (Porcine) (Heparin Na) 5,000 unit SC Q8 [facility] Last Admin: 05/23/20 06:13 Dose: 5,000 unit Documented by: Ampicillin Sodium/Sulbactam (Sodium 3 gm/ Sodium Chloride) 112 mls @ 150 mls/hr IV Q12 [facility] Last Infusion: 05/23/20 10:34 Dose: Infused Documented by: Sodium Chloride () 250 mls @ 15 mls/hr IV .[id number] PRN PRN Reason: Saline Flush Last Infusion: 05/20/20 16:32 Dose: Infused Documented by: Sodium Chloride () 250 mls @ 15 mls/hr IV .[id number] PRN PRN Reason: Additional IVPB Infusion Insulin Glargine (Lantus (Bk)) 75 units SC DAILY [facility] Last Admin: 05/23/20 11:00 Dose: 75 u Documented by: Insulin Human Lispro (Humalog Kwikpen (Bk)) 0 unit SC ACHS [facility]; Protocol Last Admin: 05/23/20 11:58 Dose: 2 u Documented by: Insulin Human Lispro (Humalog Kwikpen ([facility])) 30 unit SC TIDAC [facility] Isosorbide Mononitrate (Imdur) 90 mg PO DAILY [facility] Last Admin: 05/23/20 09:44 Dose: 90 mg Documented by: Levetiracetam (Keppra Tablet) 500 mg PO BID [facility] Last Admin: 05/23/20 09:45 Dose: 500 mg Documented by: Levothyroxine Sodium (Synthroid) 50 mcg PO DAILY@0600 [facility] Last Admin: 05/23/20 06:13 Dose: 50 mcg Documented by: Magnesium Hydroxide (Milk Of Magnesia) 30 ml PO DAILY PRN PRN PRN Reason: Constipation Memantine (Namenda) 5 mg PO BID [facility] Last Admin: 05/23/20 09:45 Dose: 5 mg Documented by: Metoprolol Succinate (Toprol Xl (Beta Susy)) 50 mg PO DAILY [facility] Last Admin: 05/23/20 09:45 Dose: 50 mg Documented by: Nitroglycerin (Nitrostat) 0.4 mg SUBLINGUAL Q5M PRN PRN Reason: CARDIAC/CHEST PAIN Last Admin: 05/22/20 04:10 Dose: 1 tab Documented by: Nystatin (Mycostatin Powder) 1 applic TOPICAL TID [facility]; Protocol Last Admin: 05/23/20 06:13 Dose: 1 applicatio Documented by: Pantoprazole Sodium (Protonix) 20 mg PO DAILY [facility] Last Admin: 05/23/20 09:45 Dose: 20 mg Documented by: Prasugrel (Effient) 10 mg PO DAILY [facility] Last Admin: 05/23/20 09:44 Dose: 10 mg Documented by: Senna/Docusate Sodium (Senokot-S, Zamzam-Colace) 1 tablet PO DAILY [facility] Last Admin: 05/23/20 09:45 Dose: 1 tablet Documented by: Simvastatin (Zocor) 40 mg PO QHS [facility] Last Admin: 05/22/20 21:02 Dose: 40 mg Documented by: Sodium Chloride () 10 - 40 ml IV UD PRN PRN Reason: SALINE FLUSH Last Admin: 05/23/20 09:46 Dose: 10 ml Documented by: Assessment/Plan This patient was seen in conjunction with Steven ACUNA. I have independently interviewed and examined the patient and reviewed pertinent history, examination findings, laboratory and plan of management. I have reviewed the note and a gree with the documented findings with the few additional points. In brief, patient is 74-year-old female admitted with severe sepsis secondary to right lower extremity cellulitis. Currently on Unasyn. No fever or chills. Type 2 diabetes mellitus with hyperglycemia. Short-acting and Lantus insulin dose increased. Patient also has acute kidney injury secondary to severe sepsis. Acute kidney i njury resolved. Patient also has paroxysmal A. fib with sick sinus syndrome. ekg monitor tech sinus rhythm at 86/min. Other comorbidities as mentioned above including chronic diastolic heart failure, coronary artery disease, hypothyroidism and suspected dementia. I talked to the patient's daughter present in the room and gave clinical updates. Patient waiting for precertification for SNF placement. I have discussed my assessment with Steven ACUNA and orders have been reviewed. Inpatient E&M: [id number] Subs Hosp L2
--- NOTE | 2020-05-23 15:00 | CASEMGMT ---
MIANL received a call from Rola at [facility] and they received insurance approval. MINAL notified patient, RN, residential living assistant, assistant secretary, and patient's daughter Cinthia. MINAL asked Cinthia if she would like a call when SW has a package pick up time. She said that is not necessary. MINAL completed convalescent in [facility]. MINAL called [facility] and put patient on the will call list. Awaiting orders to fax to [facility]. Tonja SAVAGE MSW
--- NOTE | 2020-05-23 15:20 | CASEMGMT ---
MINAL faxed d/c orders to [facility]. MINAL called [facility] and arranged for patient to get picked up at via cot billed as wheelchair. MINAL notified RN, racing secretary, electrical discharge machine operator, patient, and Rola at [facility]. Patient's daughter, Cinthia did not want a call back regarding time. MINAL also called Toshia Banda with [facility] and left her a voice mail letting her know patient is going to [facility] today. MINAL faxed her d/c orders. Plan: d/c to [facility] under intermediate level of care on a convalescent stay. [facility] transported via cot billed as wheelchair. Tonja SAVAGE [employer]
--- NOTE | 2020-05-23 16:40 | NURSING ---
Report called to Kelly BRICE at [facility].
--- NOTE | 2020-05-23 17:00 | DS.PCM_ITS ---
<Steven Schneider - Last Filed: 05/23/20 14:18> Discharge Date and Diagnosis - Problem List Patient Problems: Active and Suspected Problems (Last Reviewed 04/19/20 @ 14:[address] Trip Forman MD) Severe sepsis (Acute) Cellulitis of right lower leg (Acute) Hyperglycemia due to type 2 diabetes mellitus (Acute) GRIS (acute kidney injury) (Acute) Dehydration (Acute) Sepsis with metabolic encephalopathy (Acute) Date of Admission: 05/18/20 Date of Discharge: 05/22/20 - Primary Discharge Diagnosis Acute Problems: Active Problems (Last Reviewed 04/19/20 @ 14:[address] Trip Forman MD) Severe sepsis 2/2 Cellulitis of right lower leg Hyperglycemia due to type 2 diabetes mellitus 2/2 medication noncompliance GRIS 2/2 sepsis and Dehydration (Acute) metabolic encephalopathy 2/2 Sepsis - Secondary Discharge Diagnosis Chronic Problems: Chronic Problems (Last Reviewed 04/19/20 @ 14:[address] Trip Forman MD) History of permanent cardiac pacemaker placement (Chronic 03/05/17) Sick sinus syndrome (Chronic) Longstanding persistent atrial fibrillation (Chronic) Atherosclerosis of coronary artery without angina pectoris (Chronic) Right bundle branch block (RBBB) (Chronic) Chronic diastolic (congestive) heart failure (Chronic) Nonrheumatic aortic (valve) stenosis (Chronic) Essential (primary) hypertension (Chronic) Hyperlipidemia (Chronic) Bone cancer (Chronic) Hospital Course and Treatment Imaging Results: IMAGING: CT/Brain/Head without Contrast IMPRESSION: Chronic involutional changes of the brain. RAD/Tibia & Fibula 2 Views IMPRESSION: The mineralization of the tibia and fibula. Degenerative changes. RAD/Chest 1 View (Portable) IMPRESSION: No acute cardiopulmonary process. CT/Extremity Lower WITH Contrast IMPRESSION: 1. Suprapatellar joint effusion. 2. Superficial soft tissue edema involving the leg with the most severe changes at the ankle. This is probably secondary to known infection though a sequela of venous insufficiency is possible as well. 3. No CT evidence to suggest superficial soft tissue abscess. 4. Extensive calcific peripheral atherosclerotic vascular disease. Operations: None Procedures: None Summary of Care Provided: Hospital course: The patient is a 74 year old F with pmhx notable for dementia, type 2 diabetes, chronic diastolic congestive heart failure, sick sinus syndrome with pacemaker in place, who presented to the emergency room with complaints of confusion. The patient was found by her daughter home alone in bed, incontinent, with right lower extremity redness and and swelling and she was very confused. She was brought to the ER and found to have significant hyperglycemia, evidence of severe sepsis due to right lower extremity cellulitis with leukocytosis, fever, tachypnea, pulse greater than 90, lactic acidosis, elevated bili, and acute kidney injury. He was revealed that the patient likely hyperglycemia as she ran out of needles at home and had not been using her insulin at all. Patient was felt to have acute kidney injury secondary to sepsis. She was felt to have acute metabolic encephalopathy secondary to sepsis as well. CT of the brain was negative. Chest x-ray was negative. Tib-fib x-ray was negative. She was admitted to the ICU overnight given her severe sepsis. She was placed on Unasyn. She had significant improvement in her mental status, leukocytosis, and erythema of her right lower extremity the following day and was transferred to the PCU. She continued to improve well with almost full resolution of the erythema of her right lower extremity. She continued to have significant pain in the right lower extremity with some swelling, so a CT of the lower extremity with contrast was ordered. This demonstrated soft tissue swelling only. Fevers and leukocytosis completely resolved. She will complete a total of 7-day course of antibiotics and is transitioned to oral Augmentin at this time. Other nots: Blood sugar was fluctuant, her insulin regimen was adjusted while here, will likely need further adjustment to improve her control. She had an episode of chest pain while here, EKG was negative, troponin was negative x3- this was felt to musculoskeletal. Patient was discharged to nursing home as she has significant debility and ongoing issues with progressive dementia, is not taking care of herself at home. She will need to follow-up with her PCP in 2 weeks. This patient was seen by Steven Schneider PA-C under the supervision of Doctor Chaney. [] Patient Problems: Active and Suspected Problems (Last Reviewed 04/19/20 @ 14:[address] Trip Forman MD) Severe sepsis (Acute) Cellulitis of right lower leg (Acute) Hyperglycemia due to type 2 diabetes mellitus (Acute) GRIS (acute kidney injury) (Acute) Dehydration (Acute) Sepsis with metabolic encephalopathy (Acute) - Physical Exam Vitals/I&O's: Vital Signs Temp Pulse Resp BP Pulse Ox 97.8 F 86 16 136/68 H 96 05/22/20 08:33 05/22/20 08:35 05/22/20 08:33 05/22/20 08:33 05/22/20 08:33 Oxygen Delivery Method Room Air Weight: 221 lb 12.56 oz Body Mass Index (BMI) 36.9 Finger Stick Blood Glucose 438 Intake and Output for Last 24 Hours 05/20/20 05/21/20 05/22/20 23:59 23:59 23:59 Intake Total 2102. / 1734 / 1734 437 / 437 Balance / 1734 / 1734 437 / 437 General: Alert, Oriented x3, Cooperative HEENT: Atraumatic, PERRLA, EOMI, Normocephalic Neck: Supple, No JVD, Negative Carotid Bruits Lungs: Clear to auscultation, Normal air movement Cardiovascular: Regular rate, No murmurs Abdomen: Bowel Sounds Present, Soft, Non Tender Extremities: No edema, Capillary Refill Less than 3 Seconds, Edema - erythema resolved, skin mildly hyperpigmented, warmth resovled. ongoing tenderness to palp Skin: No rashes, No breakdown Musculoskeletal: No Tenderness to Palpation of Joints or Extremities Neurological: Cranial nerves II-XII grossly intact Psych/Mental Status: Normal Affect, Appropriate, Alert and oriented to time, place, person, mood and affect Microbiology Past 72 Hours 05/18/20 15:55 Blood Culture (Wb) - Anticubital Left Blood Culture - Preliminary No growth in 48 hours. 05/18/20 15:45 Blood Culture (Wb) - Left Wrist Blood Culture - Preliminary No growth in 48 hours. Laboratory Results 05/21/20 16:30: POC Glucose 113 H 05/21/20 21:18: POC Glucose 177 H 05/22/20 00:37: Vancomycin Trough 16.0 H 05/22/20 03:50: WBC 7.5, RBC 4.29, Hgb 11.0 L, Hct 34.8 L, MCV 81.1, MCH 25.6 L, MCHC 31.6 L, RDW Std Deviation 47.3 H, RDW Coeff of Candace 16.1 H, Plt Count 216, MPV 12.1 H, Immature Gran % (Auto) 0.800, Neut % (Auto) 85.6 H, Lymph % (Auto) 12.0 L, [place] % (Auto) 1.5, Eos % (Auto) 0.0, Baso % (Auto) 0.1, Absolute Neuts (auto) 6.4, Absolute Lymphs (auto) 0.90, Nucleated RBC % 0 05/22/20 03:50: Sodium 146 H, Potassium 4.4, Chloride 111 H, Carbon Dioxide 26.0, Anion Gap 9, BUN 16, Creatinine 1.00, Estim Creat Clear Calc 41.33, Est GFR (MDRD) Af Amer 70, Est GFR (MDRD) Non-Af 58 L, BUN/Creatinine Ratio 16.1, Gl ucose 290 H, Calcium 8.8 05/22/20 03:50: Troponin I < 0.015 05/22/20 06:38: Troponin I < 0.015 05/22/20 08:23: POC Glucose 279 H 05/22/20 09:20: Troponin I < 0.015 05/22/20 11:43: POC Glucose 287 H Current Medications Acetaminophen (Tylenol) 650 mg PO Q6H PRN PRN PRN Reason: Pain Score 1-10/Temp > 100.7 F Last Admin: 05/21/20 15:48 Dose: 650 mg Documented by: Bisacodyl (Dulcolax) 5 mg PO DAILY PRN PRN PRN Reason: Constipation Chlorhexidine Gluconate () 1 each TOPICAL DAILY [facility] Last Admin: 05/22/20 08:29 Dose: Not Given Documented by: Dextrose (D50w Syringe) 0 gm IV X1 PRN; Protocol PRN Reason: Hypoglycemia Glucagon () 1 mg IM .X1 PRN PRN Reason: Hypoglycemia Heparin Sodium (Porcine) (Heparin Na) 5,000 unit SC Q8 [facility] Last Admin: 05/22/20 05:17 Dose: 5,000 unit Documented by: Ampicillin Sodium/Sulbactam (Sodium 3 gm/ Sodium Chloride) 112 mls @ 150 mls/hr IV Q12 [facility] Last Infusion: 05/22/20 09:52 Dose: Infused Documented by: Sodium Chloride () 250 mls @ 15 mls/hr IV .[id number] PRN PRN Reason: Saline Flush Last Infusion: 05/20/20 16:32 Dose: Infused Documented by: Sodium Chloride () 250 mls @ 15 mls/hr IV .[id number] PRN PRN Reason: Additional IVPB Infusion Vancomycin IV Pharmacy to Dose (1 ea/ Sodium Chloride) 500 mls @ 250 mls/hr IV X1 PRN; Protocol PRN Reason: Rx to Dose Vancomycin HCl (Vancomycin) 1,000 mg in 200 mls @ 200 mls/hr IV Q12H [facility] Last Infusion: 05/22/20 03:19 Dose: Infused Documented by: Insulin Glargine (Lantus (Bkc)) 75 units SC DAILY [facility] Last Admin: 05/22/20 09:53 Dose: 75 u Documented by: Insulin Human Lispro (Humalog Kwikpen ([facility])) 0 unit SC ACHS [facility]; Protocol Last Admin: 05/22/20 11:45 Dose: 9 u Documented by: Insulin Human Lispro (Humalog Kwikpen ([facility])) 26 unit SC BREAKFAST [facility] Last Admin: 05/22/20 08:24 Dose: 26 u Documented by: Insulin Human Lispro (Humalog Kwikpen ([facility])) 24 unit SC BIDLS [facility] Last Admin: 05/22/20 11:45 Dose: 24 unit Documented by: Isosorbide Mononitrate (Imdur) 90 mg PO DAILY [facility] Last Admin: 05/22/20 08:35 Dose: 90 mg Documented by: Levetiracetam (Keppra Tablet) 500 mg PO BID [facility] Last Admin: 05/22/20 08:35 Dose: 500 mg Documented by: Levothyroxine Sodium (Synthroid) 50 mcg PO DAILY@0600 [facility] Last Admin: 05/22/20 05:17 Dose: 50 mcg Documented by: Magnesium Hydroxide (Milk Of Magnesia) 30 ml PO DAILY PRN PRN PRN Reason: Constipation Memantine (Namenda) 5 mg PO BID [facility] Last Admin: 05/22/20 08:35 Dose: 5 mg Documented by: Metoprolol Succinate (Toprol Xl (Beta Susy)) 50 mg PO DAILY [facility] Last Admin: 05/22/20 08:35 Dose: 50 mg Documented by: Nitroglycerin (Nitrostat) 0.4 mg SUBLINGUAL Q5M PRN PRN Reason: CARDIAC/CHEST PAIN Last Admin: 05/22/20 04:10 Dose: 1 tab Documented by: Nystatin (Mycostatin Powder) 1 applic TOPICAL TID [facility]; Protocol Last Admin: 05/22/20 05:17 Dose: 1 applicatio Documented by: Pantoprazole Sodium (Protonix) 20 mg PO DAILY [facility] Last Admin: 05/22/20 08:35 Dose: 20 mg Documented by: Prasugrel (Effient) 10 mg PO DAILY [facility] Last Admin: 05/22/20 08:35 Dose: 10 mg Documented by: Senna/Docusate Sodium (Senokot-S, Zamzam-Colace) 1 tablet PO DAILY [facility] Last Admin: 05/22/20 08:35 Dose: 1 tablet Documented by: Simvastatin (Zocor) 40 mg PO QHS [facility] Last Admin: 05/21/20 21:26 Dose: 40 mg Documented by: Sodium Chloride () 10 - 40 ml IV UD PRN PRN Reason: SALINE FLUSH Last Admin: 05/22/20 08:43 Dose: 10 ml Documented by: Discharge Diet: Low fat/ Low Cholesterol, 1800 Calorie Control Diet, 2000 mg Sodium Diet Discharge Activity: Return to Normal Activity Home Medications: Medications to take at Discharge Metoprolol Succinate [Toprol Xl] 50 mg PO DAILY 10/11/17 Prasugrel HCl 10 mg PO DAILY 06/04/18 Simvastatin [Zocor] 40 mg PO QHS 06/04/18 Cetirizine HCl [Zyrtec] 10 mg PO DAILY PRN 11/18/18 Duloxetine HCl 30 mg PO DAILY 11/18/18 Isosorbide Mononitrate [Imdur] 90 mg PO DAILY 02/29/20 Levothyroxine [Synthroid] 50 mcg PO DAILY 02/29/20 Memantine HCl [Memantine HCl ER] 14 mg PO DAILY 02/29/20 furosemide 20 mg tablet 20 mg PO BID tab 04/19/20 levetiracetam 500 mg tablet 500 mg PO BID tab 04/19/20 lisinopril 10 mg tablet 10 mg PO DAILY tab 04/19/20 Insulin Glargine [Lantus SoloStar Pen] 75 units SQ DAILY 05/18/20 Omeprazole [Prilosec] 20 mg PO DAILY 05/18/20 Sennosides/Docusate Sodium [Senexon-S 50-8.6 mg Tablet] 1 tab PO DAILY 05/18/20 Acetaminophen [Tylenol Tablet] 650 mg PO Q6H PRN PRN tab 05/22/20 Amoxicillin/Potassium Clav [Augmentin 500-125 Tablet] 1 ea PO BID #6 tab 05/22/20 Bisacodyl [Dulcolax] 5 mg PO DAILY PRN PRN tab 05/22/20 Chlorhexidine Gluc 2% Cloth 1 ea TOPICAL DAILY towelette 05/22/20 Insulin Lispro [Humalog KwikPen] 24 unit SUBCUT BIDLS insuln.pen 05/22/20 Insulin Lispro [Humalog KwikPen] 26 unit SUBCUT BREAKFAST insuln.pen 05/22/20 Insulin Lispro [Humalog KwikPen] See Protocol SUBCUT ACHS insuln.pen 05/22/20 Magnesium Hydroxide [Milk Of Magnesia] 30 ml PO DAILY PRN PRN udc 05/22/20 Nystatin Powder [Mycostatin Powder] 1 applic TOPICAL TID bottle 05/22/20 Following Prescriptions Were Given to Patient: Amoxicillin/Potassium Clav [Augmentin 500-125 Tablet] 1 ea PO BID #6 tab Primary Care Physician: Emerita Gottlieb MD [Primary Care Provider] - Please follow up with your Primary Care Physician in: 2 weeks Disposition: Custodial facility Minutes spent on discharge:: 35 Patient Condition:: Stable Medical Necessity - Tobacco Use Smoking Status: Former smoker Tobacco Use: Non-smoker Meaningful Use Info Meaningful Use Diagnoses (Choose all that apply): None applicable <Segundo Chaney - Last Filed: 05/23/20 17:02> Discharge Date and Diagnosis Date of Discharge: 05/23/20 - Primary Discharge Diagnosis Acute Problems: Active Problems (Last Reviewed 04/19/20 @ 14:[address] Trip Forman MD) Severe sepsis (Acute) Cellulitis of right lower leg (Acute) Hyperglycemia due to type 2 diabetes mellitus (Acute) GRIS (acute kidney injury) (Acute) Dehydration (Acute) Sepsis with metabolic encephalopathy (Acute) - Secondary Discharge Diagnosis Chronic Problems: Chronic Problems (Last Reviewed 04/19/20 @ 14:[address] Trip Forman MD) History of permanent cardiac pacemaker placement (Chronic 05/24/17) Sick sinus syndrome (Chronic) Longstanding persistent atrial fibrillation (Chronic) Atherosclerosis of coronary artery without angina pectoris (Chronic) Right bundle branch block (RBBB) (Chronic) Chronic diastolic (congestive) heart failure (Chronic) Nonrheumatic aortic (valve) stenosis (Chronic) Essential (primary) hypertension (Chronic) Hyperlipidemia (Chronic) Bone cancer (Chronic) Hospital Course and Treatment Summary of Care Provided: This patient was seen in conjunction with Steven ACUNA. I have independently interviewed and examined the patient and reviewed pertinent history, examination findings, laboratory and plan of management. I have reviewed the note and agree with the documented findings with the few additional points. In brief, patient is 74-year-old female admitted with severe sepsis secondary to right lower extremity cellulitis. Currently on Unasyn. No fever or chills. Type 2 diabetes mellitus with hyperglycemia. Short-acting and Lantus insulin dose increased. Patient also has acute kidney injury secondary to severe sepsis. Acute kidney injury resolved. Patient also has paroxysmal A. fib with sick sinus syndrome. hop weigher sinus rhythm at 86/min. Other comorbidities as mentioned above including chronic diastolic heart failure, coronary artery disease, hypothyroidism and suspected dementia. Discharge medication reconciliation done. Discharge follow-up instructions completed. Discharge process discussed with the patient and all questions were answered to patient's satisfaction. Discharged on Augmentin Total time spent, exact 35 minutes on discharge meds reconciliation, examination, coordination of care with nurses and ancillary staff, review of imaging and blood test and discussion with the patient on follow-up instructions I have discussed my assessment with Steevn ACUNA and orders have been reviewed.[] Objective: Please see physical exam findings and progress note on the same date. - Physical Exam Vitals/I&O's: Vital Signs Temp Pulse Resp BP Pulse Ox 98.9 F 70 18 152/86 H 98 05/23/20 04:00 05/23/20 07:00 05/23/20 04:00 05/23/20 04:00 05/23/20 04:00 Oxygen Delivery Method Room Air Weight: 220 lb 10.923 oz Body Mass Index (BMI) 36.9 Finger Stick Blood Glucose 438 Intake and Output for Last 24 Hours 05/21/20 05/22/20 05/23/20 23:59 23:59 23:59 Intake Total 1734 / 1734 749 / 749 100 / 100 Balance 1734 / 1734 749 / 749 100 / 100 Microbiology Past 72 Hours 05/18/20 15:55 Blood Culture (Wb) - Anticubital Left Blood Culture - Preliminary No growth in 48 hours. 05/18/20 15:45 Blood Culture (Wb) - Left Wrist Blood Culture - Preliminary No growth in 48 hours. Laboratory Results 05/22/20 08:23: POC Glucose 279 H 05/22/20 09:20: Troponin I < 0.015 05/22/20 11:43: POC Glucose 287 H 05/22/20 16:55: POC Glucose 296 H 05/22/20 20:58: POC Glucose 225 H 05/22/20 : COVID-19 ([facility]) Not Detected Current Medications Acetaminophen (Tylenol) 650 mg PO Q6H PRN PRN PRN Reason: Pain Score 1-10/Temp > 100.7 F Last Admin: 05/23/20 02:58 Dose: 650 mg Documented by: Bisacodyl (Dulcolax) 5 mg PO DAILY PRN PRN PRN Reason: Constipation Chlorhexidine Gluconate () 1 each TOPICAL DAILY [facility] Last Admin: 05/22/20 08:29 Dose: Not Given Documented by: Dextrose (D50w Syringe) 0 gm IV X1 PRN; Protocol PRN Reason: Hypoglycemia Glucagon () 1 mg IM .X1 PRN PRN Reason: Hypoglycemia Heparin Sodium (Porcine) (Heparin Na) 5,000 unit SC Q8 [facility] Last Admin: 05/23/20 06:13 Dose: 5,000 unit Documented by: Ampicillin Sodium/Sulbactam (Sodium 3 gm/ Sodium Chloride) 112 mls @ 150 mls/hr IV Q12 [facility] Last Infusion: 05/22/20 21:54 Dose: Infused Documented by: Sodium Chloride () 250 mls @ 15 mls/hr IV .[id number] PRN PRN Reason: Saline Flush Last Infusion: 05/20/20 16:32 Dose: Infused Documented by: Sodium Chloride () 250 mls @ 15 mls/hr IV .[id number] PRN PRN Reason: Additional IVPB Infusion Insulin Glargine (Lantus ([facility])) 75 units SC DAILY [facility] Last Admin: 05/22/20 09:53 Dose: 75 u Documented by: Insulin Human Lispro (Humalog Kwikpen ([facility])) 0 unit SC ACHS [facility]; Protocol Last Admin: 05/22/20 21:02 Dose: 2 u Documented by: Insulin Human Lispro (Humalog Kwikpen (Bkc)) 30 unit SC BREAKFAST [facility] Insulin Human Lispro (Humalog Kwikpen (Bkc)) 30 unit SC BIDLS [facility] Isosorbide Mononitrate (Imdur) 90 mg PO DAILY [facility] Last Admin: 05/22/20 08:35 Dose: 90 mg Documented by: Levetiracetam (Keppra Tablet) 500 mg PO BID [facility] Last Admin: 05/22/20 21:02 Dose: 500 mg Documented by: Levothyroxine Sodium (Synthroid) 50 mcg PO DAILY@0600 [facility] Last Admin: 05/23/20 06:13 Dose: 50 mcg Documented by: Magnesium Hydroxide (Milk Of Magnesia) 30 ml PO DAILY PRN PRN PRN Reason: Constipation Memantine (Namenda) 5 mg PO BID [facility] Last Admin: 05/22/20 21:02 Dose: 5 mg Documented by: Metoprolol Succinate (Toprol Xl (Beta Susy)) 50 mg PO DAILY [facility] Last Admin: 05/22/20 08:35 Dose: 50 mg Documented by: Nitroglycerin (Nitrostat) 0.4 mg SUBLINGUAL Q5M PRN PRN Reason: CARDIAC/CHEST PAIN Last Admin: 05/22/20 04:10 Dose: 1 tab Documented by: Nystatin (Mycostatin Powder) 1 applic TOPICAL TID [facility]; Protocol Last Admin: 05/23/20 06:13 Dose: 1 applicatio Documented by: Pantoprazole Sodium (Protonix) 20 mg PO DAILY [facility] Last Admin: 05/22/20 08:35 Dose: 20 mg Documented by: Prasugrel (Effient) 10 mg PO DAILY [facility] Last Admin: 05/22/20 08:35 Dose: 10 mg Documented by: Senna/Docusate Sodium (Senokot-S, Zamzam-Colace) 1 tablet PO DAILY [facility] Last Admin: 05/22/20 08:35 Dose: 1 tablet Documented by: Simvastatin (Zocor) 40 mg PO QHS [facility] Last Admin: 05/22/20 21:02 Dose: 40 mg Documented by: Sodium Chloride () 10 - 40 ml IV UD PRN PRN Reason: SALINE FLUSH Last Admin: 05/22/20 21:01 Dose: 20 ml Documented by: Please cancel the progress note charge of today Inpatient E&M: [id number] Disch Hosp
[2020-05-23] MEDS: Insulin Lispro 100 UNIT/ML INSULN.PEN 30 UNIT SC (17:44)
[2020-05-23 17:46] LABS: Bedside Glucose 262 mg/dL (70-110)
== END 2020-05-23 18:03 | disposition skilled nursing facility (03) | DRG 871 ==
LOC: ED 17:16 → ICU 18:43 → PCU 05-19 16:06
PROVIDERS: Hospitalist; Physician Assistant; Admitting Provider Internal Medicine; Emergency Provider Emergency Medicine; PCP Internal Medicine; Visit Provider Internal Medicine
DX: A41.9 Sepsis, unspecified organism (principal); G93.41 Metabolic encephalopathy; L03.115 Cellulitis of right lower limb; N17.9 Acute kidney failure, unspecified; I13.0 Hypertensive heart and chronic kidney disease with heart failure and stage 1 through stage 4 chronic kidney disease, or unspecified chronic kidney disease; I50.32 Chronic diastolic (congestive) heart failure; I48.11 Longstanding persistent atrial fibrillation; R65.20 Severe sepsis without septic shock; S80.811A Abrasion, right lower leg, initial encounter; W55.03XA Scratched by cat, initial encounter; Y92.009 Unspecified place in unspecified non-institutional (private) residence as the place of occurrence of the external cause; E86.0 Dehydration; E11.65 Type 2 diabetes mellitus with hyperglycemia; E11.51 Type 2 diabetes mellitus with diabetic peripheral angiopathy without gangrene; E11.22 Type 2 diabetes mellitus with diabetic chronic kidney disease; N18.3 Chronic kidney disease, stage 3 (moderate); E66.01 Morbid (severe) obesity due to excess calories; G43.909 Migraine, unspecified, not intractable, without status migrainosus; I25.10 Atherosclerotic heart disease of native coronary artery without angina pectoris; I35.0 Nonrheumatic aortic (valve) stenosis; E78.5 Hyperlipidemia, unspecified; E03.9 Hypothyroidism, unspecified; M54.9 Dorsalgia, unspecified; G89.29 Other chronic pain; K59.09 Other constipation; Z66 Do not resuscitate; M19.90 Unspecified osteoarthritis, unspecified site; G47.30 Sleep apnea, unspecified; F41.9 Anxiety disorder, unspecified; F32.9 Major depressive disorder, single episode, unspecified; F03.90 Unspecified dementia, unspecified severity, without behavioral disturbance, psychotic disturbance, mood disturbance, and anxiety; Z79.02 Long term (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 of antithrombotics/antiplatelets; Z91.14 Patient's other noncompliance with medication regimen; Z79.899 Other long term (current) drug therapy; Z68.37 Body mass index [BMI] 37.0-37.9, adult; Z95.0 Presence of cardiac pacemaker; Z87.891 Personal history of nicotine dependence; Z95.5 Presence of coronary angioplasty implant and graft; Z79.890 Hormone replacement therapy; Z79.4 Long term (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 of insulin
CPT/HCPCS: 36415; 51702; 70450; 71045; 73590; 73701; 80048; 80053; 80202; 81001; 82140; 82962; 83605; 84484; 85025; 87040; 87635; 93005; 94799; 97110; 97116; 97163; 97166; 97530; 97535; 99251; 99285; J7030; J7040; J7050; Q9967; A4216; G0463; J0295; U0003

== ENCOUNTER 2020-10-01 16:33 | Emergency (ER) | payer MEDICARE, MEDICAID, SELFPAY ==
[2020-05-18 20:06] VITALS: BMI 36.9
[2020-10-01 16:34] VITALS: BP 123/78; PULSE 62; RESP 14; TEMP 35.7; O2SAT 97; BMI 38.9
[2020-10-01 16:45] LABS: Bedside Glucose 164 mg/dL (70-110)
--- NOTE | 2020-10-01 17:02 | RAD_ITS ---
STUDY: X-RAY CHEST REASON FOR EXAM: Female, 75 years old. Chest pain, found unconscious earlier today. TECHNIQUE: Frontal view of the chest COMPARISON: 18 May 2020 FINDINGS: Pacemaker is present in the left upper chest with an intact lead terminating in the right ventricle. The lungs are clear and expanded. There is a benign chronic left midlung scar. There is no demonstrated pleural abnormality. The heart is mildly enlarged. Normal mediastinum and susan. Normal visualized pulmonary arteries. Normal visualized aortic arch and descending thoracic aorta. Normal visualized thoracic spine. Normal visualized ribs, clavicles, and shoulders. There is no demonstrated abnormality of the visualized soft tissue structures of the upper abdomen. Appearance is stable since prior. RAD/Chest 1 View (Portable) IMPRESSION: 1. No acute findings or change since prior. 2. Mild cardiomegaly. Electronically Signed: Hansa Hudson, at 17:39 EST Tel , Service support ,
--- NOTE | 2020-10-01 17:03 | EKG12_ITS ---
Test Reason : HYPOTENSION Blood Pressure : / mmHG Vent. Rate : 071 BPM Atrial Rate : 053 BPM P-R Int : 000 ms QRS Dur : 138 ms QT Int : 462 ms P-R-T Axes : 000 -37 004 degrees QTc Int : 502 ms Atrial fibrillation Left axis deviation Right bundle branch block Abnormal ECG Confirmed by MARICARMEN GALINDO, MARCK ([id number]), manuscript editor WILLIS HAWKINS ([id number]) on 10/04/2020 11:08:54 AM Referred By: THELMA Confirmed By:MARCK HERNADEZ MD
--- NOTE | 2020-10-01 17:04 | ED.DCSUM_ITS ---
- ER Visit Summary Date of Service: 10/01/20 Chief Complaint: Hypoglycemia History of Present Illness: The patient is a 75 F who presents with a hypoglycemic episode that occurred today. Patient was found by family unresponsive. Patient's blood sugar was 60 per EMS. Patient states she took her insulin today but did not eat anything. Family states that the patient's blood pressure normally runs between 300-600. Patient states she did have some chest pain earlier today. Patient denies any shortness of breath. Patient denies any nausea or vomiting. Patient denies any fevers or chills. Physical Examination: Vital signs are stable. Patient is afebrile. Patient is in no acute distress. Oral mucosa is pink and moist. Neck is supple. Trachea is midline. There is no JVD noted. Heart was irregularly irregular. Lungs are clear and equal bilaterally. Abdomen is soft. Bowel sounds are normal. There is no tenderness. There is no rebound or guarding noted. Skin is warm dry. Cranial nerves II through XII are intact. There are no focal motor or sensory deficits noted. Extremities are intact. There is no calf tenderness or edema. Test Results: BGT on arrival here was 164. EKG was obtained. On my interpretation, it shows atrial fibrillation with a rate of 71. There are no acute ST or T wave changes. There is a right bundle branch block pattern noted. This was unchanged compared to previous EKG dated 05/22/2020. CBC shows a mild anemia with a hemoglobin of 12.1 and hematocrit 36.8. Comprehensive metabolic profile was essentially within normal limits. Glucose was 139. Urinalysis does not show any evidence of urinary tract infection. Troponin was normal. Portable 1 view chest x-ray was obtained. On my interpretation, lung love are clear. There is normal cardiac silhouette. Bony thorax is normal. There is no acute process noted. Radiologist also interpreted the x-ray and agrees. Emergency Department Course and Treatment: Patient was given a regular diet tray here. Patient was able to eat. Patient was feeling better. Patient was instructed to follow-up with her primary care physician in 5 to 7 days. Patient understood and was agreeable with the plan. All questions were answered. Disposition: Discharge home Impression: 1. Hypoglycemic episode This note was generated with [employer] dictation software. It may contain incorrect words, spelling, and punctuation that were not noted in review of the chart prior to signing ED Disposition - Plan for ED Patient: Disposition: Home or Assisted Living Diagnosis: Hypoglycemic episode in patient with diabetes mellitus Instructions: ED Diabetic Insulin Reaction Referrals: Emerita Gottlieb MD [Primary Care Provider] - 5-7 Days
[2020-10-01 17:17] LABS: Absolute Lymphocyte Count 1.42 X10^3/uL (0.83-4.51); Absolute Neutrophil Count 8.6 X10^3/uL (2.0-7.7); Basophil# 0.05 X10^3/uL; Basophil% 0.5 % (0-1); Eosinophil# 0.06 X10^3/uL; Eosinophils% 0.6 % (0-5); Hematocrit 36.8 % (37-47); Hemoglobin 11.1 g/dL (12.0-15.0); Lymphocyte # 1.42 X10^3/ul (4.0); Lymphocyte % 13.1 % (19-41); Mean Corp Hgb Conc 30.2 g/dL (32-36); Mean Corpuscular Hgb 24.9 pg (27.0-32.0); Mean Corpuscular Volume 82.7 fL (81-99); Mean Platelet Vol. 12.9 fl (6.2-12.0); Monocyte# 0.63 X10^3/uL; Monocyte% 5.8 % (0-10); NRBC Flagged by Analyzer 0 % (0-5); Neutrophil # 8.62 X10^3/uL (2.7-7.7); Neutrophil % 79.4 % (47-70); Platelet Count 225 K/mm3 (150-450); RBC Distribution Width SD 44.9 fl (35.1-43.9); Red Blood Count 4.45 M/mm3 (4.2-5.4); White Blood Count 10.8 K/mm3 (4.4-11.0)
[2020-10-01 17:38] LABS: ALB/GLOB Ratio 0.8 RATIO (0.9-2.4); AST(SGOT) 24 U/L (15-37); Alanine Aminotransfer ALT/SGPT 19 U/L (13-56); Albumin, Serum 3.1 g/dL (3.2-5.0); Alkaline Phosphatase 79 U/L (45-117); Anion Gap 5 (5-15); BUN 23 mg/dL (7-18); BUN/Creat Ratio 21.1 RATIO (10-20); Calcium,Total 8.7 mg/dL (8.5-10.1); Chloride 108 mmol/L (98-107); Creatinine, Serum 1.09 mg/dL (0.55-1.02); EST Glomerular Filtration Rate 52 mL/min (>60); Est Glom Filt Rate - Afr Amer 63 mL/min (>60); Estimated Creatinine Clearance 38.89 ml/min; Globulin 3.8 g/dL (2.2-4.2); Glucose 139 mg/dL (74-106); Potassium 4.1 mmol/L (3.5-5.1); Protein, Total 6.9 g/dL (6.4-8.2); Sodium Level 141 mmol/L (136-145)
[2020-10-01 18:04] LABS: Bacteria 0 SEEN /hpf (None Seen); Mucous, Urine 0 SEEN /hpf (<or=2+); Red Blood Cells-Urine 0 SEEN /hpf (0-5); White Blood Cells 0 SEEN /hpf (0-5)
[2020-10-01 18:09] LABS: Color, Urine Yellow (Yellow); Glucose, Dipstick Normal (Normal); Ketone-Dipstick Negative (Negative); Leukocyte Esterase-Dipstick Negative /ul (Negative); Nitrite-Dipstick Negative (Negative); Occult Blood-Urine Negative /ul (Negative); Protein-Dipstick 30 mg/dl (Negative); Specific Gravity, Urine 1.015 (1.002-1.030); Urine Bilirubin Dipstick Negative (Negative); Urine Clarity Clear (Clear); Urine Urobilinogen Normal (Normal)
[2020-10-01 18:15] LABS: Squamous Epithelial Cells - UA 0-5 SEEN /hpf (5-10)
[2020-10-01 18:31] LABS: Bedside Glucose 189 mg/dL (70-110)
[2020-10-01 18:33] VITALS: BP 114/69; PULSE 71; RESP 23; O2SAT 97
== END 2020-10-01 19:10 | disposition home or self-care (01) ==
PROVIDERS: Emergency Provider Emergency Medicine; PCP Internal Medicine
DX: E11.649 Type 2 diabetes mellitus with hypoglycemia without coma (principal); E66.9 Obesity, unspecified; I11.0 Hypertensive heart disease with heart failure; I50.9 Heart failure, unspecified; Z79.4 Long term (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 of insulin; Z87.891 Personal history of nicotine dependence
CPT/HCPCS: 71045; 80053; 81001; 82962; 84484; 85025; 93005; 99285; A4216

== ENCOUNTER 2020-10-20 19:35 | Inpatient (IN) | payer MEDICARE, MEDICAID, SELFPAY ==
[2020-10-20 19:38] VITALS: BP 135/61; PULSE 79; RESP 14; TEMP 36.3; O2SAT 98; BMI 45.3
--- NOTE | 2020-10-20 19:50 | EKG12_ITS ---
Test Reason : CONFUSION Blood Pressure : / mmHG Vent. Rate : 077 BPM Atrial Rate : 277 BPM P-R Int : 000 ms QRS Dur : 134 ms QT Int : 422 ms P-R-T Axes : 000 -46 -05 degrees QTc Int : 477 ms Atrial fibrillation with occasional ventricular-paced complexes Right bundle branch block Left anterior fascicular block Bifascicular block Abnormal ECG Confirmed by TAM GALINDO, LORRAINE ([id number]), newspaper managing editor WILLIS HAWKINS ([id number]) on 10/23/2020 10:21:26 AM Referred By: DC Confirmed By:LORRAINE TURCIOS MD
--- NOTE | 2020-10-20 19:50 | CT_ITS ---
STUDY: CT CERVICAL SPINE WITHOUT CONTRAST REASON FOR EXAM: Female, 75 years old. FALL WITH ALTERED MENTAL STATUS RADIATION DOSAGE (If Supplied By Facility): CTDIvol = ( 24.57 ) mGy, DLP = ( 532.31 ) mGycm TECHNIQUE: High resolution transaxial imaging was performed without contrast material. Sagittal and coronal images were reconstructed. Individualized dose optimization techniques were used for this CT. COMPARISON: 01/23/2019 FINDINGS: Normal craniovertebral junction. Normal anterior atlantoaxial articulation. Normal odontoid process. Normal cervical lordosis. Mild dextroscoliosis or splinting secondary to muscle spasm Normal vertebral bodies and posterior osseous elements. C2-3: Normal endplates. Normal disc height and morphology. Normal central canal and intervertebral neuroforamina. C3-4: Normal endplates. Normal disc height and morphology. Normal central canal and intervertebral neuroforamina. C4-5: Normal endplates. Narrowed disc space and moderate sized central disc protrusion narrowing the spinal canal and compressing the cord... Normal intervertebral neuroforamina. C5-6: Narrowed disc space and left paracentral/posterolateral disc protrusion narrowing the spinal canal and compressing the cord. Severe left neuroforaminal stenosis secondary to bony hypertrophy. C6-7: Normal endplates. Normal disc height and morphology. Normal central canal and intervertebral neuroforamina. C7-T1: Normal endplates. Normal disc height and morphology. Normal central canal and intervertebral neuroforamina. Postop change status post left thyroidectomy CT/Spine Cervical without Contras IMPRESSION: No acute fracture or subluxation Mild spondylosis most severe at C4-5 and C5-6 in association with spinal stenosis and cord compression due to disc protrusions and bony hypertrophy.. Electronically Signed: Cristian Kam MD at 20:50 EST , Service support ,
--- NOTE | 2020-10-20 19:50 | CT_ITS ---
STUDY: CT BRAIN WITHOUT CONTRAST REASON FOR EXAM: Female, 75 years old. FALL WITH ALTERED MENTAL STATUS RADIATION DOSAGE (If Supplied By Facility): CTDIvol = ( 44.99 ) mGy, DLP = ( 779.24 ) mGycm TECHNIQUE: Transaxial CT imaging of the brain was performed without administration of intravenous contrast material. Individualized dose optimization techniques were used for this CT. COMPARISON: 05/18/2020 FINDINGS: Normal soft tissue structures. Normal calvarium. Calcification of cavernous carotids. Mild atrophy and moderate periventricular white matter ischemic changes.. Normal basal ganglia and thalami. Normal brainstem. Normal cerebellum. There is no intracranial hemorrhage. There are no findings of an acute ischemic infarction. Postsurgical changes of the orbits. Normal visualized paranasal sinuses. CT/Brain/Head without Contrast IMPRESSION: Atrophy and moderate periventricular white matter ischemic changes. No evidence for acute intracranial bleed Electronically Signed: Cristian Kam MD at 20:45 EST , Service support ,
[2020-10-20] MEDS: 0.9% Normal Saline 1,000 ML 1000 ML IV (19:57)
[2020-10-20 20:00] LABS: Bedside Glucose 484 mg/dL (70-110)
--- NOTE | 2020-10-20 20:08 | RAD_ITS ---
STUDY: X-RAY CHEST REASON FOR EXAM: Female, 75 years old. Fell out of chair this evening, headache and dizziness for multiple days. TECHNIQUE: AP portable COMPARISON: 10/01/2020 FINDINGS: There is prominence of interstitial markings in both lower lobes more severe on the left. There is scarring in the left lower lobe.. There is no demonstrated pleural abnormality. Pacer is noted on the left with electrode in right ventricle. The heart is enlarged.. Normal mediastinum and susan. Normal visualized pulmonary arteries. Mildly calcified aortic arch and descending thoracic aorta. Normal visualized thoracic spine. Normal visualized ribs, clavicles, and shoulders. There is no demonstrated abnormality of the visualized soft tissue structures of the upper abdomen. No significant change since prior exam RAD/Chest 1 View (Portable) IMPRESSION: Chronic interstitial changes in the lower lobes greater on the left.. No acute cardiopulmonary pathology Electronically Signed: Cristian Kam MD at 20:53 EST , Service support ,
[2020-10-20 20:09] LABS: Bacteria 0 SEEN /hpf (None Seen); Mucous, Urine 0 SEEN /hpf (<or=2+); Red Blood Cells-Urine 0 SEEN /hpf (0-5); White Blood Cells 0 SEEN /hpf (0-5)
[2020-10-20 20:19] LABS: Prothrombin Time (Protime)PT. 12.6 SECONDS (11.7-14.9)
[2020-10-20 20:20] LABS: Partial Thromboplast Time 26.5 Seconds (24.1-36.2)
[2020-10-20 20:23] LABS: Color, Urine Yellow (Yellow); Glucose, Dipstick 1000 mg/dl (Normal); Ketone-Dipstick Negative (Negative); Leukocyte Esterase-Dipstick Negative /ul (Negative); Nitrite-Dipstick Negative (Negative); Occult Blood-Urine Negative /ul (Negative); Protein-Dipstick Negative (Negative); Specific Gravity, Urine 1.015 (1.002-1.030); Urine Bilirubin Dipstick Negative (Negative); Urine Clarity Clear (Clear); Urine Urobilinogen Normal (Normal)
[2020-10-20 20:23] LABS: Absolute Lymphocyte Count 1.97 X10^3/uL (0.83-4.51); Absolute Neutrophil Count 6.7 X10^3/uL (2.0-7.7); Basophil# 0.06 X10^3/uL; Basophil% 0.6 % (0-1); Eosinophil# 0.23 X10^3/uL; Eosinophils% 2.4 % (0-5); Hematocrit 39.4 % (37-47); Hemoglobin 12.4 g/dL (12.0-15.0); Lymphocyte # 1.97 X10^3/ul (4.0); Lymphocyte % 20.5 % (19-41); Mean Corp Hgb Conc 31.5 g/dL (32-36); Mean Corpuscular Hgb 25.1 pg (27.0-32.0); Mean Corpuscular Volume 79.8 fL (81-99); Mean Platelet Vol. 13.7 fl (6.2-12.0); Monocyte# 0.63 X10^3/uL; Monocyte% 6.6 % (0-10); NRBC Flagged by Analyzer 0 % (0-5); Neutrophil # 6.66 X10^3/uL (2.7-7.7); Neutrophil % 69.5 % (47-70); Platelet Count 200 K/mm3 (150-450); RBC Distribution Width CV 14.6 % (11.6-14.6); Red Blood Count 4.94 M/mm3 (4.2-5.4); White Blood Count 9.6 K/mm3 (4.4-11.0)
[2020-10-20 20:38] LABS: ALB/GLOB Ratio 0.8 RATIO (0.9-2.4); AST(SGOT) 12 U/L (15-37); Alanine Aminotransfer ALT/SGPT 24 U/L (13-56); Albumin, Serum 3.2 g/dL (3.2-5.0); Alkaline Phosphatase 100 U/L (45-117); Anion Gap 6 (5-15); BUN 31 mg/dL (7-18); BUN/Creat Ratio 18.9 RATIO (10-20); Calcium,Total 8.5 mg/dL (8.5-10.1); Chloride 107 mmol/L (98-107); Creatinine, Serum 1.64 mg/dL (0.55-1.02); EST Glomerular Filtration Rate 32 mL/min (>60); Est Glom Filt Rate - Afr Amer 39 mL/min (>60); Estimated Creatinine Clearance 20.63 ml/min; Glucose 503 mg/dL (74-106); Potassium 4.6 mmol/L (3.5-5.1); Protein, Total 7.2 g/dL (6.4-8.2); Sodium Level 137 mmol/L (136-145)
[2020-10-20 20:45] LABS: Squamous Epithelial Cells - UA 0-5 SEEN /hpf (5-10)
[2020-10-20 21:25] VITALS: BP 116/60; PULSE 76; RESP 16; O2SAT 97
--- NOTE | 2020-10-20 21:26 | ED.RN ---
PT GAVE ME PERMISSION TO SPEAK WITH LAUREN, HER DAUGHTER. LAUREN STATES PT IS INCREASINGLY FORGETFUL AND NEEDS CARE AROUND THE CLOCK. LAUREN STATES SHE HAS BEEN REPEATING HER STORIES VERY FREQUENTLY WITHIN A SHORT PERIOD OF TIME. PT DOESN'T REMEMBER TO TAKE MEDICATION. LAUREN HAS SEEN HER THROW AWAY MEDICATION. PT DOES NOT COMPLY WITH DIABETIC DIET. WILL UPDATE LAUREN WITH POC/ADMISSION/VISITATION.
[2020-10-20 21:28] VITALS: BP 116/60; PULSE 76; RESP 16; TEMP 36.3; O2SAT 97
--- NOTE | 2020-10-20 21:28 | ED.DCSUM_ITS ---
- ER Visit Summary Date of Service: 10/20/20 Chief Complaint: Altered mental status History of Present Illness: The patient is a 75 F who presents from home. She lives alone. She has sporadic help with aids at home, but a history of nonadherence to her medications. She said she is not taking her meds. She felt dizzy today. She tried to get up but slid out of her chair. She denies hitting her head or losing consciousness, but is having head and neck pain. Denies any other pain or injury. Denies any other complaints like chest pain, shortness of breath, abdominal pain, nausea, vomiting, GI, or symptoms. Denies any weakness, facial droop, speech changes. Physical Examination: Afebrile and vital signs are unremarkable. Patient is alert and oriented to person. Cranial nerves grossly intact. Normal strength and sensation grossly. She has some diffuse tenderness to her cervical spine but is otherwise unremarkable. Heart regular. Lungs clear. Abdomen soft. Test Results: EKG showed atrial fibrillation at a rate of 77. CBC normal. Glucose 503, BUN 31, creatinine 1.64. Hepatic panel and coags unremarkable. Urinalysis normal. Troponin and ketones normal/negative. Covid 19 -. Chest x- ray interpreted by the radiologist and me showed chronic changes. Nothing acute. CT brain and cervical spine were unremarkable for anything acute. Emergency Department Course and Treatment: Patient was placed on the monitor and treated with IV fluids for her hyperglycemia. She was not in DKA or HHS. Otherwise her testing was all fairly unremarkable. Nursing spoke with her daughter. She is not taking her medications at home. She will not take them even if she gets reminded to take them. She is unable to care for herself. They felt that she needed placement. I contacted the hospitalist for further care. Treatment Plan: As above Disposition: Admission Impression: Debility, hyperglycemia This note was generated with [employer] dictation software. It may contain incorrect words, spelling, and punctuation that were not noted in review of the chart prior to signing ED Disposition - Plan for ED Patient: Referrals: Emerita Gottlieb MD [Primary Care Provider] -
--- NOTE | 2020-10-20 21:32 | PCM.HP.STD ---
Problem List (1) Debility Status: Acute (2) Hyperglycemia Status: Acute (3) Dehydration Status: Acute (4) History of permanent cardiac pacemaker placement Status: Chronic (5) Longstanding persistent atrial fibrillation Status: Chronic (6) Atherosclerosis of coronary artery without angina pectoris Status: Chronic Qualifiers: Coronary Disease-Associated Artery/Lesion type: saxman artery [place] vs. transplanted heart: saxman heart Qualified Code(s): I25.10 - Atherosclerotic heart disease of saxman coronary artery without angina pectoris (7) Essential (primary) hypertension Status: Chronic (8) Hyperlipidemia Status: Chronic Qualifiers: Hyperlipidemia type: unspecified Qualified Code(s): E78.5 - Hyperlipidemia, unspecified History of Present Illness Date of Admission: 10/21/20 Chief Complaint: Generalised weakness, request for chcf placement The patient is a 75 year old F with multiple comorbidities occluding CAD, CKD, chronic diastolic CHF, persistent atrial fibrillation who comes in after a fall at home. EMS was called to the home with patient who lives alone, has home health aide. She is very noncompliant with her medications and care. She was found sitting on the floor in front of her recliner. He denied hitting her head or losing consciousness. She complained of head and neck pain. Her blood sugar was reading very high on the glucometer. Patient's daughter is reported to have told nursing that patient has been noncompliant with her medication and has been visiting care. Family is interested in patient being placed. Her vitals in the ED were stable. BMP was unremarkable except for slight elevation in creatinine, consistent with her CKD. Her blood glucose was 503, LFTs were unremarkable. UA showed glucosuria, acetones were negative. Brain CT showed atrophy and moderate periventricular white matter ischemic changes. No evidence of acute intracranial bleed. Spine CT showed no acute fracture or subluxation. Mild spondylosis most severe C4-5 and C5-6 with spinal stenosis and cord compression due to disc protrusion and bony hypertrophic. Chest X-ray shows chronic interstitial changes in the lower lobes greater on the left. Otherwise no acute cardiopulmonary process. Past Medical History Past Medical History (Chronic Problems): Chronic Problems (Last Reviewed 04/19/20 @ 14:[address] Trip Forman MD) History of permanent cardiac pacemaker placement (Chronic 03/05/17) Sick sinus syndrome (Chronic) Longstanding persistent atrial fibrillation (Chronic) Atherosclerosis of coronary artery without angina pectoris (Chronic) Right bundle branch block (RBBB) (Chronic) Chronic diastolic (congestive) heart failure (Chronic) Nonrheumatic aortic (valve) stenosis (Chronic) Essential (primary) hypertension (Chronic) Hyperlipidemia (Chronic) Bone cancer (Chronic) Medical History: Medical History (Last Reviewed 04/19/20 @ 14:[address] Trip Forman MD) Sick sinus syndrome (Chronic) I49.5 Longstanding persistent atrial fibrillation (Chronic) I48.11 Atherosclerosis of coronary artery without angina pectoris (Chronic) I25.10 Right bundle branch block (RBBB) (Chronic) I45.10 Chronic diastolic (congestive) heart failure (Chronic) I50.32 Nonrheumatic aortic (valve) stenosis (Chronic) I35.0 Essential (primary) hypertension (Chronic) I10 Hyperlipidemia (Chronic) E78.5 Bone cancer (Chronic) C41.9 CKD (chronic kidney disease) stage 3, GFR 30-59 ml/min Chronic back pain M54.9, G89.29 Chronic constipation K59.09 Goiter E04.9 History of urinary incontinence Z87.898 Hypothyroidism E03.9 Morbid obesity E66.01 Osteoarthritis PVD (peripheral vascular disease) I73.9 AISHWARYA 02/2019 Mild Sleep apnea G47.30 Spondylosis M47.9 Type II diabetes mellitus E11.9 Cholelithiasis K80.20 Migraine (Resolved) G43.909 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 L97.912 s/p traumatic hematoma Wound of right lower extremity S81.801A Allergies atorvastatin calcium [From Lipitor] Allergy (Verified 10/20/20 19:35) dont remember codeine Allergy (Verified 10/20/20 19:35) Rash iodine Allergy (Verified 10/20/20 19:35) Rash Latex, Natural Rubber Allergy (Verified 10/20/20 19:35) Rash lovastatin Allergy (Verified 10/20/20 19:35) Rash rosuvastatin calcium [From Crestor] Allergy (Verified 10/20/20 19:35) rash\ naproxen [From Naprosyn] Adverse Reaction (Verified 10/20/20 19:35) Upset Stomach pregabalin [From Lyrica] Adverse Reaction (Verified 10/20/20 19:35) Upset Stomach Sulfa (Sulfonamide Antibiotics) Adverse Reaction (Verified 10/20/20 19:35) Upset Stomach Home Medications: Ambulatory Orders Medication Instructions Recorded Metoprolol Succinate [Toprol Xl] 50 mg PO DAILY 10/11/17 Prasugrel HCl 10 mg PO DAILY 06/04/18 Simvastatin [Zocor] 40 mg PO QHS 06/04/18 Cetirizine HCl [Zyrtec] 10 mg PO DAILY PRN 11/18/18 Duloxetine HCl 30 mg PO DAILY 11/18/18 Isosorbide Mononitrate [Imdur] 90 mg PO DAILY 02/29/20 Levothyroxine [Synthroid] 50 mcg PO DAILY 02/29/20 Memantine HCl [Memantine HCl ER] 14 mg PO DAILY 02/29/20 furosemide 20 mg tablet 20 mg PO BID tab 04/19/20 levetiracetam 500 mg tablet 500 mg PO BID tab 04/19/20 lisinopril 10 mg tablet 10 mg PO DAILY tab 04/19/20 Insulin Glargine [Lantus SoloStar 75 units SQ DAILY 05/18/20 Pen] Omeprazole [Prilosec] 20 mg PO DAILY 05/18/20 Sennosides/Docusate Sodium 1 tab PO DAILY 05/18/20 [Senexon-S 50-8.6 mg Tablet] Acetaminophen [Tylenol Tablet] 650 mg PO Q6H PRN PRN tab 05/22/20 Amoxicillin/Potassium Clav 1 ea PO BID #6 tab 05/22/20 [Augmentin 500-125 Tablet] Bisacodyl [Dulcolax] 5 mg PO DAILY PRN PRN tab 05/22/20 Chlorhexidine Gluc 2% Cloth 1 ea TOPICAL DAILY towelette 05/22/20 Insulin Lispro [Humalog KwikPen] 24 unit SUBCUT BIDLS insuln.pen 05/22/20 Insulin Lispro [Humalog KwikPen] 26 unit SUBCUT BREAKFAST 05/22/20 insuln.pen Insulin Lispro [Humalog KwikPen] See Protocol SUBCUT ACHS 05/22/20 insuln.pen Magnesium Hydroxide [Milk Of 30 ml PO DAILY PRN PRN udc 05/22/20 Magnesia] Nystatin Powder [Mycostatin Powder] 1 applic TOPICAL TID bottle 05/22/20 Surgical History: Surgical History (Last Updated 04/19/20 @ 17:24 by Aurelia Soliz) History of permanent cardiac pacemaker placement (Chronic) Onset Date: 03/05/17 Z95.0 History of coronary artery stent placement (Resolved) Onset Date: 01/25/11 Z95.5 [id number] LAD w/ 3.5 x 12 mm Taxus Express 10/23/2004; [id number] Inferolateral Marginal Branch w/ 3.0 x 9 mm [place]on Stent 01/25/2011 @ [facility] History of hysterectomy Z90.710 History of loop recorder Onset Date: 2013 Z98.890 History of thyroidectomy Z90.09 Surgical History: hysterectomy, - - PCI x2, thyroidectomy for goiter, left lower extremity surgery for bone cancer, pacemaker, hysterectomy. Psychiatric History: Anxiety, Depression HOMEOPATHIC DOCTOR History: No pertinent HOMEOPATHIC DOCTOR history Smoking Status: Former smoker - *Family History Maternal Family History: Family History (Last Reviewed 05/18/20 @ 18:50 by Steven ACUNA PA) Other Cancer History Items: - - History of alcoholic cirrhosis Paternal Family History: Family History (Last Reviewed 05/18/20 @ 18:50 by Steven ACUNA PA) Other Cancer History Items: Cancer - Her father had colon cancer. Sibling Family History: Family History (Last Reviewed 05/18/20 @ 18:50 by Steven ACUNA PA) Other Cancer History Items: Cancer - Her sister had ovarian cancer., Hypertension Review of Systems Unable to obtain accurate/complete ROS d/t: Patient appears confused; pt is a poor historian VTE Information - Inpt Only VTE Present on Admission: No VTE Pharm Prophylaxis ordered?: Yes - Physical Exam Vitals/I&O's: Vital Signs Temp Pulse Resp BP Pulse Ox 97.4 F L 76 16 116/60 97 10/20/20 21:28 10/20/20 21:28 10/20/20 21:28 10/20/20 21:28 10/20/20 21:28 Oxygen Delivery Method Room Air Weight: 105.3 kg Body Mass Index (BMI) 45.3 Finger Stick Blood Glucose 484 General: Alert, Oriented x3, Cooperative, No apparent distress HEENT: Atraumatic, PERRLA, EOMI, Normocephalic Oral: Moist Mucosa Neck: Supple Lungs: Clear to auscultation, Normal air movement Cardiovascular: Regular rate, Regular Rhythm, Normal S1, Normal S2, No murmurs Abdomen: Bowel Sounds Present, Soft, Non Tender, Non-Distended, No Hepato-splenomegaly Extremities: No edema Skin: No rashes Musculoskeletal: No Tenderness to Palpation of Joints or Extremities Lymphatic: No Cervical, Supraclavicular, or Inguinal Adenopathy Neurological: Cranial nerves II-XII grossly intact, Neuro grossly intact Psych/Mental Status: Normal Affect, Appropriate Microbiology Past 72 Hours 10/20/20 20:20 Mucosa - Nose SARS-CoV-2 Antigen (Rapid) - Final Laboratory Results 10/20/20 19:40: WBC 9.6, RBC 4.94, Hgb 12.4, Hct 39.4, MCV 79.8 L, MCH 25.1 L, MCHC 31.5 L, RDW Std Deviation 42.0, RDW Coeff of Candace 14.6, Plt Count 200, MPV 13.7 H, Immature Gran % (Auto) 0.400, Neut % (Auto) 69.5, Lymph % (Auto) 20.5, Mcpherson % (Auto) 6.6, Eos % (Auto) 2.4, Baso % (Auto) 0.6, Absolute Neuts (auto) 6.7, Absolute Lymphs (auto) 1.97, Nucleated RBC % 0 10/20/20 19:40: PT 12.6, INR 1.0, APTT 26.5 10/20/20 19:40: Sodium 137, Potassium 4.6, Chloride 107, Carbon Dioxide 24.0, Anion Gap 6, BUN 31 H, Creatinine 1.64 H, Estim Creat Clear Calc 20.63, Est GFR (MDRD) Af Amer 39 L, Est GFR (MDRD) Non-Af 32 L, BUN/Creatinine Ratio 18.9, Glucose 503 H*, Calcium 8.5, Total Bilirubin 0.30, AST 12 L, ALT 24, Alkaline Phosphatase 100, Troponin I < 0.015, Total Protein 7.2, Albumin 3.2, Globulin 4.0, Albumin/Globulin Ratio 0.8 L 10/20/20 19:40: Acetone Level NEGATIVE 10/20/20 19:46: POC Glucose 484 H* 10/20/20 20:00: Urine Color Yellow, Urine Clarity Clear, Urine pH 5.0, Ur Specific [place] 1.015, Urine Protein Negative, Urine Glucose (UA) 1000 H, Urine Ketones Negative, Urine Occult Blood Negative, Urine Nitrite Negative, Urine Bilirubin Negative, Urine Urobilinogen Normal, Ur Leukocyte Esterase Negative, Urine RBC 0 SEEN, Urine WBC 0 SEEN, Ur Squamous Epith Cells 0-5 SEEN, Urine Bacteria 0 SEEN, Urine Mucus 0 SEEN Assessment/Plan All Active Problems (Last Reviewed 04/19/20 @ 14:[address] Trip Forman MD) Severe sepsis (Acute) Cellulitis of right lower leg (Acute) Hyperglycemia due to type 2 diabetes mellitus (Acute) GRIS (acute kidney injury) (Acute) Dehydration (Acute) Sepsis with metabolic encephalopathy (Acute) Debility (Acute) Hyperglycemia (Acute) Noncompliance (Acute) Fatigue (Acute) History of coronary artery stent placement (Resolved 01/25/11) GRIS (acute kidney injury) (Resolved) Acute cystitis (Resolved) Acute delirium (Resolved) Chest pain (Resolved) Dehydration (Resolved) Delirium (Resolved) Delirium (Resolved) Fall (Resolved) Hypoglycemia (Resolved) Influenza A (Resolved) Migraine (Resolved) Pneumococcal pneumonia (Resolved) Sepsis (Resolved) Sepsis (Resolved) UTI (urinary tract infection) (Resolved) UTI (urinary tract infection) (Resolved) 1. Fall, recurrent, last episode was this night, Patient lives alone, CT of the head was negative for acute intracranial abnormality CT of the neck was abnormal and showed chronic changes with osteophyte, complete narrowing with possible cord compression Clarified with on-call radiology, cord compression is not acute, it's old, secondary to a large osteophyte at C5-C6 PT/OT to evaluate and treat Neurosurgery consulted for recommendations 2. Debility, related to multiple comorbidities Patient lives alone, unable to care for self Family request for placement Social work consult 3. Hyperglycemia in a known type II DM, insulin-dependent, due to medication noncompliance Admitting blood sugar more than 500, no signs of DKA We will continue on IV fluids, resume home insulin regimen with blood glucose checks 4. Hypertension/CAD/hypothyroidism/chronic atrial fibrillation/chronic migraines/chronic diastolic CHF, all remain stable On med list evaluated, Lasix on hold 5. DVT prophylaxis on Lovenox subcu Inpatient E&M: 68908 Init Hosp L3
[2020-10-20 22:29] VITALS: BP 141/74; PULSE 76; RESP 19; O2SAT 97
[2020-10-20 23:20] VITALS: BP 158/88; PULSE 72; RESP 18; TEMP 36.4; O2SAT 97; BMI 38.1
--- NOTE | 2020-10-20 23:21 | PCS.PANDOC ---
PANDEMIC DOCUMENTATION INITIATED: Date: 10/20/20 Time: 23:15
[2020-10-20 23:29] VITALS: BMI 38.1
[2020-10-20] MEDS: 0.9% Normal Saline 1,000 ML 100 ML IV (23:41)
[2020-10-20 23:50] LABS: Bedside Glucose 378 mg/dL (70-110)
[2020-10-21] MEDS: Enoxaparin 40 MG/0.4 ML Syringe SC ×3 (00:14→21:59)
[2020-10-21 04:23] VITALS: BP 133/57; PULSE 76; RESP 16; TEMP 36.8; O2SAT 96
[2020-10-21] MEDS: Levothyroxine 50 MCG Tablet PO (05:55)
[2020-10-21] MEDS: Insulin Lispro 100 UNIT/ML INSULN.PEN SC ×4 (06:28→21:58)
[2020-10-21 06:48] LABS: Absolute Lymphocyte Count 2.32 X10^3/uL (0.83-4.51); Absolute Neutrophil Count 4.8 X10^3/uL (2.0-7.7); Basophil# 0.06 X10^3/uL; Basophil% 0.7 % (0-1); Eosinophil# 0.28 X10^3/uL; Eosinophils% 3.5 % (0-5); Hematocrit 35.8 % (37-47); Hemoglobin 11.1 g/dL (12.0-15.0); Lymphocyte # 2.32 X10^3/ul (4.0); Lymphocyte % 28.6 % (19-41); Mean Corpuscular Hgb 24.9 pg (27.0-32.0); Mean Corpuscular Volume 80.4 fL (81-99); Monocyte# 0.62 X10^3/uL; Monocyte% 7.6 % (0-10); NRBC Flagged by Analyzer 0 % (0-5); Neutrophil # 4.81 X10^3/uL (2.7-7.7); Neutrophil % 59.4 % (47-70); Platelet Count 160 K/mm3 (150-450); RBC Distribution Width CV 14.7 % (11.6-14.6); RBC Distribution Width SD 42.9 fl (35.1-43.9); Red Blood Count 4.45 M/mm3 (4.2-5.4); White Blood Count 8.1 K/mm3 (4.4-11.0)
[2020-10-21 06:51] LABS: Bedside Glucose 322 mg/dL (70-110)
[2020-10-21 07:12] LABS: ALB/GLOB Ratio 0.8 RATIO (0.9-2.4); AST(SGOT) 14 U/L (15-37); Alanine Aminotransfer ALT/SGPT 19 U/L (13-56); Albumin, Serum 2.7 g/dL (3.2-5.0); Alkaline Phosphatase 84 U/L (45-117); Anion Gap 4 (5-15); BUN 27 mg/dL (7-18); BUN/Creat Ratio 22.9 RATIO (10-20); Calcium,Total 8.1 mg/dL (8.5-10.1); Chloride 108 mmol/L (98-107); Creatinine, Serum 1.18 mg/dL (0.55-1.02); EST Glomerular Filtration Rate 47 mL/min (>60); Est Glom Filt Rate - Afr Amer 57 mL/min (>60); Estimated Creatinine Clearance 34.48 ml/min; Globulin 3.6 g/dL (2.2-4.2); Glucose 310 mg/dL (74-106); Protein, Total 6.3 g/dL (6.4-8.2); Sodium Level 139 mmol/L (136-145)
[2020-10-21] MEDS: 0.9% Normal Saline 1,000 ML 100 ML IV (09:34)
--- NOTE | 2020-10-21 09:35 | CASEMGMT ---
Addendum entered by Radha Rodríguez 10/21/20 11:54: SW did call pt's daughter Cinthia, message left. PT/OT are still pending. VERENA Francois Original Note: SW met w/pt in regard to prior level of functioning and discharge plan. PCP: Dr. Gottlieb Specialists: Pt sees a heart doctor, can't remember who Pharmacy: Pt cannot remember the name of her pharmacy Insurance: [facility] LNOK: Pt has four daughters POA/LW: Pt does not think she has completed the LW/POA forms, states her daughter Cinthia is the one who helps her in regard to medical decisions Living Arrangements/Prior level of function: Pt lives home alone in an apartment. Pt does have an aide from [facility], Toshia Banda is case advocate. She states her aide helps with cleaning, and is present when pt showers--but pt showers on her own. Pt does her personal care. Pt gets home delivered meals. Pt does not drive, daughter Cinthia takes pt to app. Pt sets up her own meds with the assist of the aide, however states she does forget to take her insulin, in particular in the evening. She states her daughters often stop in and remind her in the evening. Pt reports that she is having increasing forgetfulness. DME/HHC/SNF: Pt uses a rollator, raised toilet seat, shower chair. Pt has aide services through [employer], though pt states she does not come on a regular schedule. Pt also states has a lift chair, and slid out of her lift chair yesterday, which is what she explains caused her to come to the hospital. Pt went to [facility] last year. Plan: Pt would like to go home if possible. She states that she has Kitties at home she needs to care for, and also is worried her landlord is trying to gt her out. SW explained that we should see how she does with PT before making a final decision, SW explained can check back w/her and her daughter once pt has completed PT. Pt states understanding. SW did leave Toshia a message with [facility] to let her know pt is here. Plan: TBD. Pt would like to go home, PT/OT are pending. VERENA Francois
[2020-10-21 09:52] VITALS: BP 121/62; PULSE 83; RESP 18; TEMP 36.8; O2SAT 96
[2020-10-21] MEDS: Senna/Docusate Sodium 1 Tablet PO (09:53)
[2020-10-21] MEDS: levETIRAcetam 500 MG Tablet PO ×2 (09:53→21:58)
[2020-10-21] MEDS: Lisinopril 10 MG Tablet PO (09:53)
[2020-10-21] MEDS: Isosorbide Mononitrate 30 MG Tablet 90 MG PO (09:53)
[2020-10-21 09:54] VITALS: PULSE 83
[2020-10-21] MEDS: Metoprolol(XL)Succ 50 MG Tablet PO (09:54)
[2020-10-21] MEDS: Memantine Hydrochloride 5 MG Tablet PO (09:54)
[2020-10-21] MEDS: DULoxetine Hcl 30 MG Capsule PO (09:55)
[2020-10-21] MEDS: Furosemide 20 MG Tablet PO ×2 (09:55→16:32)
[2020-10-21] MEDS: Pantoprazole Sodium 20 MG Tablet PO (09:56)
[2020-10-21 12:41] LABS: Bedside Glucose 352 mg/dL (70-110)
--- NOTE | 2020-10-21 13:39 | CASEMGMT ---
SW tried daughter again, she still did not answer the phone. SW spoke w/physician, he spoke w/pt and pt is refusing snf placement. Physician tried pt's other daughter Yeimi, also no answer. SW spoke w/pt again, asked if she would be agreeable to home health. List of home care providers given to pt w/star ratings and cost per beneficiary. Pt agreeable to referral to [facility]. SW called [facility], spoke w/Madyson drafter directional survey. She is to call SW back if the CANNOT take pt, otherwise they can take her. Order placed for home care for PT, correction, and SW. Green sheet placed on chart in anticipation of discharge home tomorrow for pt. VERENA Francois
[2020-10-21 15:45] VITALS: BP 136/68; PULSE 76; RESP 18; TEMP 36.7; O2SAT 93
[2020-10-21 16:35] LABS: Bedside Glucose 263 mg/dL (70-110)
--- NOTE | 2020-10-21 17:20 | PN_ITS ---
Patient Problems: Active and Suspected Problems (Last Reviewed 04/19/20 @ 14:[address] Trip Forman MD) Debility (Acute) Hyperglycemia (Acute) Subjective: Patient was seen and examined today, I attempted to get a hold of her daughters but I was unable to reach either one of them whose numbers were listed by phone. Patient admits that she is forgetful and does not remember to take insulin but assures me that she is remembering to take all her other medications. Patient appears to be on Namenda which is a dementia medication, I do not know if she carries a diagnosis of dementia. Patient states she does not want to go to a long-term, she states she had an accident with her recliner and fell out of the recliner at home. Patient's blood sugars appear to be declining at this time, I have elected to increase the patient's basal insulin. I do not feel the patient will remember to take insulin with each meal so I am not going to place her on this. - Physical Exam Vitals/I&O's: Vital Signs Temp Pulse Resp BP Pulse Ox 98.0 F 76 18 136/68 H 93 10/21/20 15:45 10/21/20 15:45 10/21/20 15:45 10/21/20 15:45 10/21/20 15:45 Oxygen Delivery Method Room Air Weight: 100.743 kg Body Mass Index (BMI) 38.1 Finger Stick Blood Glucose 484 Intake and Output for Last 24 Hours 10/19/20 10/20/20 10/21/20 23:59 23:59 23:59 Intake Total 1000 / 1000 2053.33 / 2053.33 Output Total 1150 / 1150 Balance 1000 / 1000 903.33 / 903.33 General: Alert, Oriented x3, Cooperative, No apparent distress, Well developed HEENT: Atraumatic, PERRLA, EOMI, Normocephalic Oral: Moist Mucosa Neck: Supple, No JVD, No Nuchal Rigidity, Trachea Midline, Thyroid Normal Size and Texture Lungs: Clear to auscultation, Normal air movement, No rhonchi, No wheeze, No rales Cardiovascular: Regular rate, Regular Rhythm, Normal S1, Normal S2, No murmurs, PMI Normal, No rub noted, No Gallop Abdomen: Bowel Sounds Present, Soft, Non Tender, Non-Distended, Obese Extremities: No clubbing, No cyanosis, No edema, Capillary Refill Less than 3 Seconds Skin: No rashes, No breakdown Musculoskeletal: No Tenderness to Palpation of Joints or Extremities Neurological: Cranial nerves II-XII grossly intact, Neuro grossly intact, Sensory exam intact to light touch and pain, Coordination normal Psych/Mental Status: Normal Affect, Appropriate, Alert and oriented to time, p lace, person, mood and affect Microbiology Past 72 Hours 10/20/20 20:20 Mucosa - Nose SARS-CoV-2 Antigen (Rapid) - Final Laboratory Results 10/20/20 19:40: WBC 9.6, RBC 4.94, Hgb 12.4, Hct 39.4, MCV 79.8 L, MCH 25.1 L, MCHC 31.5 L, RDW Std Deviation 42.0, RDW Coeff of Candace 14.6, Plt Count 200, MPV 13.7 H, Immature Gran % (Auto) 0.400, Neut % (Auto) 69.5, Lymph % (Auto) 20.5, [place] % (Auto) 6.6, Eos % (Auto) 2.4, Baso % (Auto) 0.6, Absolute Neuts (auto) 6.7, Absolute Lymphs (auto) 1.97, Nucleated RBC % 0 10/20/20 19:40: PT 12.6, INR 1.0, APTT 26.5 10/20/20 19:40: Sodium 137, Potassium 4.6, Chloride 107, Carbon Dioxide 24.0, Anion Gap 6, BUN 31 H, Creatinine 1.64 H, Estim Creat Clear Calc 20.63, Est GFR (MDRD) Af Amer 39 L, Est GFR (MDRD) Non-Af 32 L, BUN/Creatinine Ratio 18.9, Glucose 503 H*, Calcium 8.5, Total Bilirubin 0.30, AST 12 L, ALT 24, Alkaline Phosphatase 100, Troponin I < 0.015, Total Protein 7.2, Albumin 3.2, Globulin 4.0, Albumin/Globulin Ratio 0.8 L 10/20/20 19:40: Acetone Level NEGATIVE 10/20/20 19:46: POC Glucose 484 H* 10/20/20 20:00: Urine Color Yellow, Urine Clarity Clear, Urine pH 5.0, Ur Specific [place] 1.015, Urine Protein Negative, Urine Glucose (UA) 1000 H, Urine Ketones Negative, Urine Occult Blood Negative, Urine Nitrite Negative, Urine Bilirubin Negative, Urine Urobilinogen Normal, Ur Leukocyte Esterase Negative, Urine RBC 0 SEEN, Urine WBC 0 SEEN, Ur Squamous Epith Cells 0-5 SEEN, Urine Bacteria 0 SEEN, Urine Mucus 0 SEEN 10/20/20 23:44: POC Glucose 378 H 10/21/20 05:30: WBC 8.1, RBC 4.45, Hgb 11.1 L, Hct 35.8 L, MCV 80.4 L, MCH 24.9 L, MCHC 31.0 L, RDW Std Deviation 42.9, RDW Coeff of Candace 14.7 H, Plt Count 160, MPV 13.0 H, Immature Gran % (Auto) 0.200, Neut % (Auto) 59.4, Lymph % (Auto) 28.6, [place] % (Auto) 7.6, Eos % (Auto) 3.5, Baso % (Auto) 0.7, Absolute Neuts (auto) 4.8, Absolute Lymphs (auto) 2.32, Nucleated RBC % 0 10/21/20 05:30: Sodium 139, Potassium 4.0, Chloride 108 H, Carbon Dioxide 27.0, Anion Gap 4 L, BUN 27 H, Creatinine 1.18 H, Estim Creat Clear Calc 34.48, Est GFR (MDRD) Af Amer 57 L, Est GFR (MDRD) Non-Af 47 L, BUN/Creatinine Ratio 22.9 H , Glucose 310 H, Calcium 8.1 L, Total Bilirubin 0.40, AST 14 L, ALT 19, Alkaline Phosphatase 84, Total Protein 6.3 L, Albumin 2.7 L, Globulin 3.6, Albumin/Globulin Ratio 0.8 L 10/21/20 06:27: POC Glucose 322 H 10/21/20 11:46: POC Glucose 352 H 10/21/20 16:30: POC Glucose 263 H Current Medications Acetaminophen (Acetaminophen 325 Mg Tablet) 650 mg PO Q6H PRN PRN PRN Reason: Pain Score 1-10/Temp > 100.7 F Al Hydroxide/Mg Hydroxide (Mag Hydrox/Al Hydrox/Simeth 30 Ml Udc) 30 ml PO Q6H PRN PRN PRN Reason: Gastric Burning Albuterol Sulfate (Albuterol 2.5 Mg/3 Ml Vial.Neb.) 2.5 mg INHALATION Q2H PRN PRN PRN Reason: Shortness of Breath/Wheezing Bisacodyl (Bisacodyl 5 Mg Tablet) 5 mg PO DAILY PRN PRN PRN Reason: Constipation Dextrose (Dextrose 50%-Water 25 Gm/50 Ml Disp.Syrin) 0 gm IV X1 PRN; Protocol PRN Reason: Hypoglycemia Duloxetine HCl (Duloxetine Hcl 30 Mg Capsule) 30 mg PO DAILY [facility] Last Admin: 10/21/20 09:55 Dose: 30 mg Documented by: Enoxaparin Sodium (Enoxaparin 40 Mg/0.4 Ml Syringe) 40 mg SC BID [facility] Last Admin: 10/21/20 09:54 Dose: 40 mg Documented by: Furosemide (Furosemide 20 Mg Tablet) 20 mg PO BIDLX [facility] Last Admin: 10/21/20 16:32 Dose: 20 mg Documented by: Glucagon (Glucagon 1 Mg/Ml Syringe) 1 mg IM .X1 PRN PRN Reason: Hypoglycemia Sodium Chloride () 250 mls @ 15 mls/hr IV .[id number] PRN PRN Reason: Saline Flush Insulin Glargine (Insulin Glargine 100 Units/Ml Pen) 85 units SC DAILY [facility] Insulin Human Lispro (Insulin Lispro 100 Unit/Ml Insuln.Pen) 0 unit SC ACHS [facility]; Protocol Last Admin: 10/21/20 16:32 Dose: 9 u Documented by: Isosorbide Mononitrate (Isosorbide Mononitrate 30 Mg Tablet) 90 mg PO DAILY [facility] Last Admin: 10/21/20 09:53 Dose: 90 mg Documented by: Levetiracetam (Levetiracetam 500 Mg Tablet) 500 mg PO BID [facility] Last Admin: 10/21/20 09:53 Dose: 500 mg Documented by: Levothyroxine Sodium (Levothyroxine 50 Mcg Tablet) 50 mcg PO DAILY@0600 [facility] Last Admin: 10/21/20 05:55 Dose: 50 mcg Documented by: Lisinopril (Lisinopril 10 Mg Tablet) 10 mg PO DAILY [facility] Last Admin: 10/21/20 09:53 Dose: 10 mg Documented by: Memantine (Memantine Hydrochloride 5 Mg Tablet) 10 mg PO BID [facility] Metoprolol Succinate (Metoprolol(Xl)Succ 50 Mg Tablet) 50 mg PO DAILY [facility] Last Admin: 10/21/20 09:54 Dose: 50 mg Documented by: Nitroglycerin (Nitroglycerin (Inpatient Use) 0.4 Mg Tab.Subl) 0.4 mg SUBLINGUAL Q5M PRN PRN Reason: CARDIAC/CHEST PAIN Ondansetron HCl (Ondansetron 4 Mg/2 Ml Vial) 4 mg IV Q8H PRN PRN PRN Reason: NAUSEA/VOMITING Pantoprazole Sodium (Pantoprazole Sodium 20 Mg Tablet) 20 mg PO DAILY [facility] Last Admin: 10/21/20 09:56 Dose: 20 mg Documented by: Prasugrel (Prasugrel Hydrochloride 10 Mg Tablet) 10 mg PO DAILY [facility] Last Admin: 10/21/20 09:55 Dose: 10 mg Documented by: Senna/Docusate Sodium (Senna/Docusate Sodium 1 Tablet) 1 tablet PO DAILY [facility] Last Admin: 10/21/20 09:53 Dose: 1 tablet Documented by: Simvastatin (Simvastatin 20 Mg Tablet) 40 mg PO QHS [facility] Sodium Chloride (0.9% Saline Lock 10 Ml Syringe) 10 - 40 ml IV UD PRN PRN Reason: SALINE FLUSH Medical Necessity - Tobacco Use Smoking Status: Former smoker Assessment/Plan All Active Problems (Last Reviewed 04/19/20 @ 14:[address] Trip Forman MD) Severe sepsis (Resolved) Cellulitis of right lower leg (Resolved) Hyperglycemia due to type 2 diabetes mellitus (Resolved) GRIS (acute kidney injury) (Resolved) Dehydration (Resolved) Sepsis with metabolic encephalopathy (Resolved) Debility (Acute) Hyperglycemia (Acute) Fatigue (Resolved) History of coronary artery stent placement (Resolved 01/25/11) GRIS (acute kidney injury) (Resolved) Acute cystitis (Resolved) Acute delirium (Resolved) Chest pain (Resolved) Dehydration (Resolved) Delirium (Resolved) Delirium (Resolved) Fall (Resolved) Hypoglycemia (Resolved) Influenza A (Resolved) Migraine (Resolved) Pneumococcal pneumonia (Resolved) Sepsis (Resolved) Sepsis (Resolved) UTI (urinary tract infection) (Resolved) UTI (urinary tract infection) (Resolved) #1 uncontrolled type 2 diabetes secondary to patient noncompliance-again we will monitor patient's blood sugars, she does not want to go to an extended care facility. #2 dehydration secondary to #1-patient's creatinine is improved today #3 cognitive impairment-probably secondary to early dementia, I have placed the patient on increased dose of Namenda, I had a long discussion with the patient's daughter Cinthia, she states that the patient does not pay her own bills sometimes resulting in her phone being cut off, she also does not cook for herself and eat 3 meals a day at times even though she has food in the freezer. I told the daughter I would try to talk with the patient tomorrow to see if she would agree to short-term placement in a halfway facility such as [facility]. #4 generalized debility-secondary to multiple medical problems-PT recommends additional therapy. #5 coronary artery disease #6 osteoarthritis #7 chronic kidney disease stage III-secondary to type 2 diabetes #8 essential hypertension #9 seizure disorder-patient has Keppra listed has one of her medications, I am not able to verify that she has a seizure disorder from the daughter. Inpatient E&M: 33469 Subs Hosp L2
[2020-10-21 21:55] VITALS: BP 125/60; PULSE 70; RESP 16; TEMP 36.5; O2SAT 99
[2020-10-21] MEDS: Simvastatin 20 MG Tablet 40 MG PO (21:56)
[2020-10-21] MEDS: Memantine Hydrochloride 5 MG Tablet 10 MG PO (21:58)
[2020-10-21 22:26] LABS: Bedside Glucose 216 mg/dL (70-110)
[2020-10-22] VITALS (7 sets, daily range): BP systolic 109–148; BP diastolic 68–95; PULSE 67–80; RESP 16–18; TEMP 36.6–37.1; O2SAT 96–98
[2020-10-22] MEDS: Insulin Lispro 100 UNIT/ML INSULN.PEN SC ×3 (06:32→22:25)
[2020-10-22] MEDS: Levothyroxine 50 MCG Tablet PO (06:34)
[2020-10-22 06:56] LABS: Bedside Glucose 166 mg/dL (70-110)
[2020-10-22] MEDS: Enoxaparin 40 MG/0.4 ML Syringe SC ×2 (10:28→22:25)
[2020-10-22] MEDS: levETIRAcetam 500 MG Tablet PO ×2 (10:28→22:24)
[2020-10-22] MEDS: Furosemide 20 MG Tablet PO ×2 (10:28→18:10)
[2020-10-22] MEDS: Isosorbide Mononitrate 30 MG Tablet 90 MG PO (10:28)
[2020-10-22] MEDS: DULoxetine Hcl 30 MG Capsule PO (10:29)
[2020-10-22] MEDS: Pantoprazole Sodium 20 MG Tablet PO (10:29)
[2020-10-22] MEDS: Lisinopril 10 MG Tablet PO (10:29)
[2020-10-22] MEDS: Senna/Docusate Sodium 1 Tablet PO (10:29)
[2020-10-22] MEDS: Memantine Hydrochloride 5 MG Tablet 10 MG PO ×2 (10:30→22:24)
[2020-10-22] MEDS: Metoprolol(XL)Succ 50 MG Tablet PO (10:30)
[2020-10-22 11:35] LABS: Bedside Glucose 216 mg/dL (70-110)
--- NOTE | 2020-10-22 16:17 | PN_ITS ---
Patient Problems: Active and Suspected Problems (Last Reviewed 04/19/20 @ 14:[address] Trip Forman MD) Debility (Acute) Hyperglycemia (Acute) Subjective: Patient was seen and examined today, I talked with her about going to a longterm facility for short-term rehab such as TCU, patient was not against this and accepted the idea. I had talked with the daughter of the patient yesterday and that was her wishes to that the patient go to a longterm facility for at least short-term rehab services. Patient's blood sugars under better control at this time. Objective: General: Alert, Oriented x3, Cooperative, No apparent distress, Well developed HEENT: Atraumatic, PERRLA, EOMI, Normocephalic Oral: Moist Mucosa Neck: Supple, No JVD, No Nuchal Rigidity, Trachea Midline, Thyroid Normal Size and Texture Lungs: Clear to auscultation, Normal air movement, No rhonchi, No wheeze, No rales Cardiovascular: Regular rate, Regular Rhythm, Normal S1, Normal S2, No murmurs, PMI Normal, No rub noted, No Gallop Abdomen: Bowel Sounds Present, Soft, Non Tender, Non-Distended, Obese Extremities: No clubbing, No cyanosis, No edema, Capillary Refill Less than 3 Seconds Skin: No rashes, No breakdown Musculoskeletal: No Tenderness to Palpation of Joints or Extremities Neurological: Cranial nerves II-XII grossly intact, Neuro grossly intact, Sensory exam intact to light touch and pain, Coordination normal Psych/Mental Status: Normal Affect, Appropriate, Alert and oriented to time, place, person, mood and affect - Physical Exam Vitals/I&O's: Vital Signs Temp Pulse Resp BP Pulse Ox 98.8 F 67 18 148/95 H 98 10/22/20 08:42 10/22/20 10:30 10/22/20 08:43 10/22/20 08:42 10/22/20 08:42 Oxygen Delivery Method Room Air Weight: 100.743 kg Body Mass Index (BMI) 38.1 Finger Stick Blood Glucose 484 Intake and Output for Last 24 Hours 10/20/20 10/21/20 10/22/20 23:59 23:59 23:59 Intake Total 1000 / 1000 3.33 / 2052.33 550 / 550 Output Total 1150 / 2600 2900 / 2900 Balance 1000 / 1000 903.33 / -546.67 -2350 / -2350 Microbiology Past 72 Hours 10/20/20 20:20 Mucosa - Nose SARS-CoV-2 Antigen (Rapid) - Final Laboratory Results 10/21/20 16:30: POC Glucose 263 H 10/21/20 21:54: POC Glucose 216 H 10/22/20 06:31: POC Glucose 166 H 10/22/20 11:29: POC Glucose 216 H Current Medications Acetaminophen (Acetaminophen 325 Mg Tablet) 650 mg PO Q6H PRN PRN PRN Reason: Pain Score 1-10/Temp > 100.7 F Al Hydroxide/Mg Hydroxide (Mag Hydrox/Al Hydrox/Simeth 30 Ml Udc) 30 ml PO Q6H PRN PRN PRN Reason: Gastric Burning Albuterol Sulfate (Albuterol 2.5 Mg/3 Ml Vial.Neb.) 2.5 mg INHALATION Q2H PRN PRN PRN Reason: Shortness of Breath/Wheezing Bisacodyl (Bisacodyl 5 Mg Tablet) 5 mg PO DAILY PRN PRN PRN Reason: Constipation Dextrose (Dextrose 50%-Water 25 Gm/50 Ml Disp.Syrin) 0 gm IV X1 PRN; Protocol PRN Reason: Hypoglycemia Duloxetine HCl (Duloxetine Hcl 30 Mg Capsule) 30 mg PO DAILY [facility] Last Admin: 10/22/20 10:29 Dose: 30 mg Documented by: Enoxaparin Sodium (Enoxaparin 40 Mg/0.4 Ml Syringe) 40 mg SC BID [facility] Last Admin: 10/22/20 10:28 Dose: 40 mg Documented by: Furosemide (Furosemide 20 Mg Tablet) 20 mg PO BIDLX [facility] Last Admin: 10/22/20 10:28 Dose: 20 mg Documented by: Glucagon (Glucagon 1 Mg/Ml Syringe) 1 mg IM .X1 PRN PRN Reason: Hypoglycemia Sodium Chloride () 250 mls @ 15 mls/hr IV .[id number] PRN PRN Reason: Saline Flush Insulin Glargine (Insulin Glargine 100 Units/Ml Pen) 85 units SC DAILY [facility] Last Admin: 10/22/20 10:30 Dose: 85 u Documented by: Insulin Human Lispro (Insulin Lispro 100 Unit/Ml Insuln.Pen) 0 unit SC ACHS [facility]; Protocol Last Admin: 10/22/20 11:51 Dose: 6 u Documented by: Isosorbide Mononitrate (Isosorbide Mononitrate 30 Mg Tablet) 90 mg PO DAILY [facility] Last Admin: 10/22/20 10:28 Dose: 90 mg Documented by: Levetiracetam (Levetiracetam 500 Mg Tablet) 500 mg PO BID [facility] Last Admin: 10/22/20 10:28 Dose: 500 mg Documented by: Levothyroxine Sodium (Levothyroxine 50 Mcg Tablet) 50 mcg PO DAILY@0600 [facility] Last Admin: 10/22/20 06:34 Dose: 50 mcg Documented by: Lisinopril (Lisinopril 10 Mg Tablet) 10 mg PO DAILY [facility] Last Admin: 10/22/20 10:29 Dose: 10 mg Documented by: Memantine (Memantine Hydrochloride 5 Mg Tablet) 10 mg PO BID [facility] Last Admin: 10/22/20 10:30 Dose: 10 mg Documented by: Metoprolol Succinate (Metoprolol(Xl)Succ 50 Mg Tablet) 50 mg PO DAILY [facility] Last Admin: 10/22/20 10:30 Dose: 50 mg Documented by: Nitroglycerin (Nitroglycerin (Inpatient Use) 0.4 Mg Tab.Subl) 0.4 mg SUBLINGUAL Q5M PRN PRN Reason: CARDIAC/CHEST PAIN Ondansetron HCl (Ondansetron 4 Mg/2 Ml Vial) 4 mg IV Q8H PRN PRN PRN Reason: NAUSEA/VOMITING Pantoprazole Sodium (Pantoprazole Sodium 20 Mg Tablet) 20 mg PO DAILY [facility] Last Admin: 10/22/20 10:29 Dose: 20 mg Documented by: Prasugrel (Prasugrel Hydrochloride 10 Mg Tablet) 10 mg PO DAILY [facility] Last Admin: 10/22/20 10:28 Dose: 10 mg Documented by: Senna/Docusate Sodium (Senna/Docusate Sodium 1 Tablet) 1 tablet PO DAILY [facility] Last Admin: 10/22/20 10:29 Dose: 1 tablet Documented by: Simvastatin (Simvastatin 20 Mg Tablet) 40 mg PO QHS [facility] Last Admin: 10/21/20 21:56 Dose: 40 mg Documented by: Sodium Chloride (0.9% Saline Lock 10 Ml Syringe) 10 - 40 ml IV UD PRN PRN Reason: SALINE FLUSH Medical Necessity - Tobacco Use Smoking Status: Former smoker Assessment/Plan All Active Problems (Last Reviewed 04/19/20 @ 14:[address] Trip Forman MD) Severe sepsis (Resolved) Cellulitis of right lower leg (Resolved) Hyperglycemia due to type 2 diabetes mellitus (Resolved) GRIS (acute kidney injury) (Resolved) Dehydration (Resolved) Sepsis with metabolic encephalopathy (Resolved) Debility (Acute) Hyperglycemia (Acute) Fatigue (Resolved) History of coronary artery stent placement (Resolved 01/25/11) GRIS (acute kidney injury) (Resolved) Acute cystitis (Resolved) Acute delirium (Resolved) Chest pain (Resolved) Dehydration (Resolved) Delirium (Resolved) Delirium (Resolved) Fall (Resolved) Hypoglycemia (Resolved) Influenza A (Resolved) Migraine (Resolved) Pneumococcal pneumonia (Resolved) Sepsis (Resolved) Sepsis (Resolved) UTI (urinary tract infection) (Resolved) UTI (urinary tract infection) (Resolved) #1 uncontrolled type 2 diabetes secondary to patient noncompliance-again we will monitor patient's blood sugars, she has excepted the idea of going to a longterm facility such as TCU for short-term rehab #2 dehydration secondary to #1- resolved #3 cognitive impairment-probably secondary to early dementia, I have placed the patient on increased dose of Namenda #4 generalized debility-secondary to multiple medical problems-PT recommends additional therapy, again the plan would be for the patient to go to TCU if possible for short-term rehab. #5 coronary artery disease #6 osteoarthritis #7 chronic kidney disease stage III-secondary to type 2 diabetes #8 essential hypertension #9 seizure disorder-patient has Keppra listed has one of her medications, I am not able to verify that she has a seizure disorder from the daughter. Inpatient E&M: 29825 Subs Hosp L2
[2020-10-22 16:40] LABS: Bedside Glucose 76 mg/dL (70-110)
[2020-10-22 17:51] LABS: Bedside Glucose 93 mg/dL (70-110)
[2020-10-22] MEDS: Simvastatin 20 MG Tablet 40 MG PO (22:24)
[2020-10-22 22:36] LABS: Bedside Glucose 166 mg/dL (70-110)
[2020-10-23 03:14] VITALS: BP 116/65; PULSE 75; RESP 16; TEMP 36.6; O2SAT 96
[2020-10-23] MEDS: Levothyroxine 50 MCG Tablet PO (06:38)
[2020-10-23 07:01] LABS: Bedside Glucose 126 mg/dL (70-110)
[2020-10-23 08:16] VITALS: BP 151/75; PULSE 75; RESP 16; TEMP 36.9; O2SAT 97
[2020-10-23] MEDS: Lisinopril 10 MG Tablet PO (10:01)
[2020-10-23 10:02] VITALS: BP 151/75; PULSE 75
[2020-10-23] MEDS: Metoprolol(XL)Succ 50 MG Tablet PO (10:02)
[2020-10-23] MEDS: Pantoprazole Sodium 20 MG Tablet PO (10:02)
[2020-10-23] MEDS: Isosorbide Mononitrate 30 MG Tablet 90 MG PO (10:02)
[2020-10-23] MEDS: Senna/Docusate Sodium 1 Tablet PO (10:02)
[2020-10-23] MEDS: Memantine Hydrochloride 5 MG Tablet 10 MG PO (10:02)
[2020-10-23] MEDS: DULoxetine Hcl 30 MG Capsule PO (10:03)
[2020-10-23] MEDS: Furosemide 20 MG Tablet PO (10:03)
[2020-10-23] MEDS: levETIRAcetam 500 MG Tablet PO (10:03)
[2020-10-23] MEDS: Enoxaparin 40 MG/0.4 ML Syringe SC (10:03)
--- NOTE | 2020-10-23 10:15 | CASEMGMT ---
Social Work Note MINAL reviewed handoff communication. Pt was apparently agreeable to TCU. MINAL placed a call to Jennifer in TCU, Jennifer states TCU has no beds and she is not sure if TCU is still taking pt's insurance or if they are still stating they are not in contract with TCU. SW in to speak with pt. SW introduced self and role at [facility]. Pt is alert and orientated x3. Pt aware of name, place, year (unsure of Month). MINAL asked pt about [facility] TCU and if she is still agreeable. Pt states I think people put words in my mouth, I want to go home. SW informed pt that TCU has no beds anyway but informed pt that she can go to a different SNF if she thinks she needs SNF. Pt denied SNF, again states she is going home. SW informed pt that HHC referral was made to [facility], waiting to hear back if [facility] is able to accept pt. Pt still agreeable to [facility] HHC. Pt confirms that she has Toshia Banda as CM. SW asked pt if this worker can call one of her daughters to update on discharge plan and pt gave this worker permission to call her daughter Cinthia. SW placed a call to pt's daughter Cinthia and updated her that pt is wishing to discharge home with HHC. Cinthia asked about pt still getting aide services while getting HHC and this worker informed Cinthia that pt will still be able to get aide services with HHC. Cinthia states understanding, thanked this worker for the update. MINAL received message from pt's CM Toshia Banda requesting update. MINAL placed a call to Toshia Banda and updated her on discharge plans. Toshia states pt has Meals on Wheels through [employer], 4 hours of aide services -- through [facility] and is active with [facility] for snf 1x a week. Plan: Home with HHC Rhea Soto MSW, GUEST SERVICES OFFICER
[2020-10-23] MEDS: Insulin Lispro 100 UNIT/ML INSULN.PEN SC (10:26)
[2020-10-23 10:36] LABS: Bedside Glucose 287 mg/dL (70-110)
--- NOTE | 2020-10-23 13:39 | CASEMGMT ---
THIAGO PEREA in to discuss HHC with patient. Per MINAL patient is active with [facility], patient states she does have a nurse that comes in but could not remember company. THIAGO PEREA called [facility] and they state patient is active with [facility] for HHC SN. THIAGO PEREA called and spoke to Daria at [facility] and patient is active with them for SN. THIAGO PEREA requested PT/OT be added to services. THIAGO PEREA to send updated clinicals and resumption of care with added therapy.
[2020-10-23 15:00] VITALS: BP 143/95; PULSE 86; RESP 16; TEMP 36.6; O2SAT 97
--- NOTE | 2020-10-23 16:10 | NURSING ---
Patient called daughter for discharge. This nurse explained we do not have a discharge order from the doctor yet. Cande DAScharge machine operator sent note to for the order.
--- NOTE | 2020-10-23 16:22 | DCINST_ITS ---
- Discharge Diagnoses Current Active Problems: Current Active and Chronic Problems (Last Reviewed 04/19/20 @ 14:[address] Trip Forman MD) Debility (Acute) Hyperglycemia (Acute) History of permanent cardiac pacemaker placement (Chronic 03/05/17) Longstanding persistent atrial fibrillation (Chronic) Atherosclerosis of coronary artery without angina pectoris (Chronic) Essential (primary) hypertension (Chronic) Hyperlipidemia (Chronic) You will use the following diet at home:: Calorie/Carbohydrate Controlled (specify 1200, 1400, etc), Cardiac Your food should be the consistency of: Regular Your liquids should be the consistency of: Regular/Thin Discharge Activity: Return to Normal Activity Allergies/Adverse Reactions: Allergies atorvastatin calcium [From Lipitor] Allergy (Verified 10/20/20 19:35) dont remember codeine Allergy (Verified 10/20/20 19:35) Rash iodine Allergy (Verified 10/20/20 19:35) Rash Latex, Natural Rubber Allergy (Verified 10/20/20 19:35) Rash lovastatin Allergy (Verified 10/20/20 19:35) Rash rosuvastatin calcium [From Crestor] Allergy (Verified 10/20/20 19:35) rash\ naproxen [From Naprosyn] Adverse Reaction (Verified 10/20/20 19:35) Upset Stomach pregabalin [From Lyrica] Adverse Reaction (Verified 10/20/20 19:35) Upset Stomach Sulfa (Sulfonamide Antibiotics) Adverse Reaction (Verified 10/20/20 19:35) Upset Stomach Medications to take at Discharge Metoprolol Succinate [Toprol Xl] 50 mg PO DAILY 10/11/17 Prasugrel HCl 10 mg PO DAILY 06/04/18 Simvastatin [Zocor] 40 mg PO QHS 06/04/18 Cetirizine HCl [Zyrtec] 10 mg PO DAILY PRN 11/18/18 Duloxetine HCl 30 mg PO DAILY 11/18/18 Isosorbide Mononitrate [Imdur] 90 mg PO DAILY 02/29/20 Levothyroxine [Synthroid] 50 mcg PO DAILY 02/29/20 Memantine HCl [Memantine HCl ER] 14 mg PO DAILY 02/29/20 furosemide 20 mg tablet 20 mg PO BID tab 04/19/20 levetiracetam 500 mg tablet 500 mg PO BID tab 04/19/20 lisinopril 10 mg tablet 10 mg PO DAILY tab 04/19/20 Omeprazole [Prilosec] 20 mg PO DAILY 05/18/20 Sennosides/Docusate Sodium [Senexon-S 50-8.6 mg Tablet] 1 tab PO DAILY 05/18/20 Acetaminophen [Tylenol Tablet] 650 mg PO Q6H PRN PRN tab 05/22/20 Bisacodyl [Dulcolax] 5 mg PO DAILY PRN PRN tab 05/22/20 Insulin Lispro [Humalog KwikPen] 24 unit SUBCUT BIDLS insuln.pen 05/22/20 Insulin Lispro [Humalog KwikPen] 26 unit SUBCUT BREAKFAST insuln.pen 05/22/20 Insulin Lispro [Humalog KwikPen] See Protocol SUBCUT ACHS insuln.pen 05/22/20 Magnesium Hydroxide [Milk Of Magnesia] 30 ml PO DAILY PRN PRN udc 05/22/20 Nystatin Powder [Mycostatin Powder] 1 applic TOPICAL TID PRN 10/21/20 Insulin Glargine [Lantus SoloStar Pen] 85 units SC DAILY pen 10/23/20 Primary Care Physician: Emerita Gottlieb MD [Primary Care Provider] - Please follow up with your Primary Care Physician in: 1 week Test Results: Test results from this visit will be discussed in further detail at your follow- up appointment, if applicable.
--- NOTE | 2020-10-23 16:24 | PCM.DC.SUM ---
Discharge Date and Diagnosis - Problem List Patient Problems: Active and Suspected Problems (Last Reviewed 04/19/20 @ 14:[address] Trip Forman MD) Debility (Acute) Hyperglycemia (Acute) Date of Admission: 10/21/20 Date of Discharge: 10/23/20 - Primary Discharge Diagnosis Acute Problems: Active Problems (Last Reviewed 04/19/20 @ 14:[address] Trip Forman MD) Debility (Acute) Hyperglycemia (Acute) - Secondary Discharge Diagnosis Chronic Problems: Chronic Problems (Last Reviewed 04/19/20 @ 14:[address] Trip Forman MD) Noncompliance (Chronic) History of permanent cardiac pacemaker placement (Chronic 03/05/17) Sick sinus syndrome (Chronic) Longstanding persistent atrial fibrillation (Chronic) Atherosclerosis of coronary artery without angina pectoris (Chronic) Right bundle branch block (RBBB) (Chronic) Chronic diastolic (congestive) heart failure (Chronic) Nonrheumatic aortic (valve) stenosis (Chronic) Essential (primary) hypertension (Chronic) Hyperlipidemia (Chronic) Bone cancer (Chronic) Hospital Course and Treatment Imaging Results: CT brain without contrast 10/20/2020 -Atrophy and moderate periventricular white matter ischemic changes, no evidence for acute intracranial bleed CT neck 10/21/2020 -Not acute degenerative appearance of C4 and C5 similar to previous studies, with moderate neural foramina and lateral recess narrowing, moderate central canal stenosis Operations: None Procedures: None Summary of Care Provided: Ms. South is a 75 year old F who presented to the hospital on 10/21/2020 with generalized weakness and family was interested in patient being placed at a usp facility. Patient has apparently been very noncompliant with her medications at home and states she realizes this. And EMS was called for this weakness and she was found sitting on the floor in front of her recliner at home upon admission she complained of head and neck pain so a CT head and neck were performed and both were negative for acute pathology. Visiting nursing care has been involved in her care. She was found to have hyperglycemia with type 2 diabetes and blood sugar greater than 500 on admission. She was hydrated and resumed her insulin. The initial plan was for her to be referred to the TCU versus usp facility and per notes patient was agreeable to this, but today upon evaluation patient was alert and oriented x3 and refused usp facility admission. Her daughter, Cinthia, was informed of this and was agreeable to discharge home as long as she continued to get home services which she will be getting her baseline services. I did discuss admission to usp facility further with the patient but she was adamant that she was not going to a skilled facility at this time. I suspect she has baseline cognitive impairment and recommend geriatric consultation at discharge for further evaluation. Her home medications were restarted as patient admitted to sometimes forgetting to take her insulin we did discuss ways for example setting an alarm, to remember to take her insulin. I suspect the patient will require readmission sooner than later for recurrent issues related to her noncompliance. Again we highly recommended skilled placement at discharge but given the fact the patient was alert and oriented and her daughter was not able to convince her otherwise and agreed to discharge home we did discharge her at this time. Discharge diagnoses Fall-with no acute injury Hyperglycemia secondary to insulin noncompliance DM-2 Hypertension CAD Permanent atrial fibrillation Chronic migraines HFpEF Hypothyroidism Debility Chronic back pain CKD Hyperlipidemia OA ERIC-CPAP noncompliance PVD Obesity Suspected mild cognitive impairment Discharge time greater than 35 minutes Patient Problems: Active and Suspected Problems (Last Reviewed 04/19/20 @ 14:[address] Trip Forman MD) Debility (Acute) Hyperglycemia (Acute) - Physical Exam Vitals/I&O's: Vital Signs Temp Pulse Resp BP Pulse Ox 97.8 F 86 16 143/95 H 97 10/23/20 15:00 10/23/20 15:00 10/23/20 15:00 10/23/20 15:00 10/23/20 15:00 Oxygen Delivery Method Room Air Weight: 100.743 kg Body Mass Index (BMI) 38.1 Finger Stick Blood Glucose 484 Intake and Output for Last 24 Hours 10/21/20 10/22/20 10/23/20 23:59 23:59 23:59 Intake Total 2053.33 / 2053.33 550 / 550 450 / 450 Output Total 1150 / 2600 2900 / 2900 Balance 903.33 / -546.67 -2350 / -2350 450 / 450 General: Alert, Oriented x3, Cooperative, No apparent distress, Well developed, Well nourished, - - Older white female, lying in bed, appears comfortable HEENT: Atraumatic, PERRLA, EOMI, Normocephalic, EAC Clear Oral: Moist Mucosa, No Gingival or Mucosal Lesions/ Ulcerations, - - Edentulous, dentures in place Neck: Supple, Negative Carotid Bruits, Trachea Midline, Thyroid Normal Size and Texture, - - Short thick neck Lungs: Clear to auscultation, Normal air movement, No rhonchi, No wheeze, No rales Cardiovascular: Regular rate, Normal S1, Normal S2, No murmurs, No Ectopic Activity, No rub noted, No Gallop, - - Irregularly irregular rhythm Abdomen: Bowel Sounds Present, Soft, Non Tender, Non-Distended, Obese Extremities: No clubbing, No cyanosis, No edema, Capillary Refill Less than 3 Seconds, Peripheral Pulses Normal Skin: No rashes, No breakdown Musculoskeletal: No Tenderness to Palpation of Joints or Extremities, Arthritic Changes Lymphatic: No Cervical, Supraclavicular, or Inguinal Adenopathy Neurological: Cranial nerves II-XII grossly intact, Neuro grossly intact, Muscle tone normal, Coordination normal Psych/Mental Status: Normal Affect, Appropriate, - - Alert and oriented x3, but patient had some issues remembering people's names and a few current events Microbiology Past 72 Hours 10/20/20 20:20 Mucosa - Nose SARS-CoV-2 Antigen (Rapid) - Final Laboratory Results 10/22/20 16:37: POC Glucose 76 10/22/20 17:46: POC Glucose 93 10/22/20 22:20: POC Glucose 166 H 10/23/20 06:37: POC Glucose 126 H 10/23/20 10:24: POC Glucose 287 H Current Medications Acetaminophen (Acetaminophen 325 Mg Tablet) 650 mg PO Q6H PRN PRN PRN Reason: Pain Score 1-10/Temp > 100.7 F Al Hydroxide/Mg Hydroxide (Mag Hydrox/Al Hydrox/Simeth 30 Ml Udc) 30 ml PO Q6H PRN PRN PRN Reason: Gastric Burning Albuterol Sulfate (Albuterol 2.5 Mg/3 Ml Vial.Neb.) 2.5 mg INHALATION Q2H PRN PRN PRN Reason: Shortness of Breath/Wheezing Bisacodyl (Bisacodyl 5 Mg Tablet) 5 mg PO DAILY PRN PRN PRN Reason: Constipation Dextrose (Dextrose 50%-Water 25 Gm/50 Ml Disp.Syrin) 0 gm IV X1 PRN; Protocol PRN Reason: Hypoglycemia Duloxetine HCl (Duloxetine Hcl 30 Mg Capsule) 30 mg PO DAILY [facility] Last Admin: 10/23/20 10:03 Dose: 30 mg Documented by: Enoxaparin Sodium (Enoxaparin 40 Mg/0.4 Ml Syringe) 40 mg SC BID [facility] Last Admin: 10/23/20 10:03 Dose: 40 mg Documented by: Furosemide (Furosemide 20 Mg Tablet) 20 mg PO BIDLX [facility] Last Admin: 10/23/20 10:03 Dose: 20 mg Documented by: Glucagon (Glucagon 1 Mg/Ml Syringe) 1 mg IM .X1 PRN PRN Reason: Hypoglycemia Sodium Chloride () 250 mls @ 15 mls/hr IV .[id number] PRN PRN Reason: Saline Flush Insulin Glargine (Insulin Glargine 100 Units/Ml Pen) 85 units SC DAILY [facility] Last Admin: 10/23/20 10:26 Dose: 85 u Documented by: Insulin Human Lispro (Insulin Lispro 100 Unit/Ml Insuln.Pen) 0 unit SC ACHS [facility]; Protocol Last Admin: 10/23/20 10:26 Dose: 9 u Documented by: Isosorbide Mononitrate (Isosorbide Mononitrate 30 Mg Tablet) 90 mg PO DAILY [facility] Last Admin: 10/23/20 10:02 Dose: 90 mg Documented by: Levetiracetam (Levetiracetam 500 Mg Tablet) 500 mg PO BID [facility] Last Admin: 10/23/20 10:03 Dose: 500 mg Documented by: Levothyroxine Sodium (Levothyroxine 50 Mcg Tablet) 50 mcg PO DAILY@0600 [facility] Last Admin: 10/23/20 06:38 Dose: 50 mcg Documented by: Lisinopril (Lisinopril 10 Mg Tablet) 10 mg PO DAILY [facility] Last Admin: 10/23/20 10:01 Dose: 10 mg Documented by: Memantine (Memantine Hydrochloride 5 Mg Tablet) 10 mg PO BID [facility] Last Admin: 10/23/20 10:02 Dose: 10 mg Documented by: Metoprolol Succinate (Metoprolol(Xl)Succ 50 Mg Tablet) 50 mg PO DAILY [facility] Last Admin: 10/23/20 10:02 Dose: 50 mg Documented by: Nitroglycerin (Nitroglycerin (Inpatient Use) 0.4 Mg Tab.Subl) 0.4 mg SUBLINGUAL Q5M PRN PRN Reason: CARDIAC/CHEST PAIN Ondansetron HCl (Ondansetron 4 Mg/2 Ml Vial) 4 mg IV Q8H PRN PRN PRN Reason: NAUSEA/VOMITING Pantoprazole Sodium (Pantoprazole Sodium 20 Mg Tablet) 20 mg PO DAILY [facility] Last Admin: 10/23/20 10:02 Dose: 20 mg Documented by: Prasugrel (Prasugrel Hydrochloride 10 Mg Tablet) 10 mg PO DAILY [facility] Last Admin: 10/23/20 10:03 Dose: 10 mg Documented by: Senna/Docusate Sodium (Senna/Docusate Sodium 1 Tablet) 1 tablet PO DAILY [facility] Last Admin: 10/23/20 10:02 Dose: 1 tablet Documented by: Simvastatin (Simvastatin 20 Mg Tablet) 40 mg PO QHS [facility] Last Admin: 10/22/20 22:24 Dose: 40 mg Documented by: Sodium Chloride (0.9% Saline Lock 10 Ml Syringe) 10 - 40 ml IV UD PRN PRN Reason: SALINE FLUSH Discharge Activity: Return to Normal Activity Home Medications: Medications to take at Discharge Metoprolol Succinate [Toprol Xl] 50 mg PO DAILY 10/11/17 Prasugrel HCl 10 mg PO DAILY 06/04/18 Simvastatin [Zocor] 40 mg PO QHS 06/04/18 Cetirizine HCl [Zyrtec] 10 mg PO DAILY PRN 11/18/18 Duloxetine HCl 30 mg PO DAILY 11/18/18 Isosorbide Mononitrate [Imdur] 90 mg PO DAILY 02/29/20 Levothyroxine [Synthroid] 50 mcg PO DAILY 02/29/20 Memantine HCl [Memantine HCl ER] 14 mg PO DAILY 02/29/20 furosemide 20 mg tablet 20 mg PO BID tab 04/19/20 levetiracetam 500 mg tablet 500 mg PO BID tab 04/19/20 lisinopril 10 mg tablet 10 mg PO DAILY tab 04/19/20 Omeprazole [Prilosec] 20 mg PO DAILY 05/18/20 Sennosides/Docusate Sodium [Senexon-S 50-8.6 mg Tablet] 1 tab PO DAILY 05/18/20 Acetaminophen [Tylenol Tablet] 650 mg PO Q6H PRN PRN tab 05/22/20 Bisacodyl [Dulcolax] 5 mg PO DAILY PRN PRN tab 05/22/20 Insulin Lispro [Humalog KwikPen] 24 unit SUBCUT BIDLS insuln.pen 05/22/20 Insulin Lispro [Humalog KwikPen] 26 unit SUBCUT BREAKFAST insuln.pen 05/22/20 Insulin Lispro [Humalog KwikPen] See Protocol SUBCUT ACHS insuln.pen 05/22/20 Magnesium Hydroxide [Milk Of Magnesia] 30 ml PO DAILY PRN PRN udc 05/22/20 Nystatin Powder [Mycostatin Powder] 1 applic TOPICAL TID PRN 10/21/20 Insulin Glargine [Lantus SoloStar Pen] 85 units SC DAILY pen 10/23/20 Primary Care Physician: Emerita Gottlieb MD [Primary Care Provider] - Please follow up with your Primary Care Physician in: 1 week Medical Necessity - Tobacco Use Smoking Status: Former smoker Meaningful Use Info Meaningful Use Diagnoses (Choose all that apply): None applicable Inpatient E&M: 24161 [facility]
--- NOTE | 2020-10-23 16:27 | CASEMGMT ---
Social Work Note Pt is being discharged home today. MINAL placed a call to pt's CM Toshia Banda and left message that pt is being discharged today. MINAL faxed discharge paperwork to Toshia Banda at [facility]. Rhea Soto HEEL BUILDER MACHINE, SALES CONSULTING DIRECTOR
[2020-10-23 16:43] VITALS: BP 143/75; PULSE 86; RESP 18; TEMP 36.6; O2SAT 97
--- NOTE | 2020-10-24 14:39 | CASEMGMT ---
THIAGO DC Call Note DC Date: 10/23/20 DC Disposition: Home with [facility] LACE/STRATA: 23/[address] [facility] for transition of care. They have discharge packet and will be calling patient soon to set up appointment likely for tomorrow. PT/OT has been added. Shahid DOMINGO RN ACM
== END 2020-10-23 16:40 | disposition home or self-care (01) | DRG 638 ==
LOC: ED 19:53 → MS3 21:41
PROVIDERS: Internal Medicine; Admitting Provider Internal Medicine; Emergency Provider Emergency Medicine; PCP Internal Medicine; Visit Provider Internal Medicine
DX: E11.65 Type 2 diabetes mellitus with hyperglycemia (principal); I13.0 Hypertensive heart and chronic kidney disease with heart failure and stage 1 through stage 4 chronic kidney disease, or unspecified chronic kidney disease; I50.32 Chronic diastolic (congestive) heart failure; I48.21 Permanent atrial fibrillation; Z68.42 Body mass index [BMI] 45.0-49.9, adult; Z79.4 Long term (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 of insulin; Z91.14 Patient's other noncompliance with medication regimen; N18.30 Chronic kidney disease, stage 3 unspecified; I25.10 Atherosclerotic heart disease of native coronary artery without angina pectoris; E03.9 Hypothyroidism, unspecified; G89.29 Other chronic pain; M54.9 Dorsalgia, unspecified; E78.5 Hyperlipidemia, unspecified; M19.90 Unspecified osteoarthritis, unspecified site; G47.33 Obstructive sleep apnea (adult) (pediatric); Z91.19 Patient's noncompliance with other medical treatment and regimen; E11.51 Type 2 diabetes mellitus with diabetic peripheral angiopathy without gangrene; E66.01 Morbid (severe) obesity due to excess calories; Z87.891 Personal history of nicotine dependence; R29.6 Repeated falls; E86.0 Dehydration; R41.89 Other symptoms and signs involving cognitive functions and awareness; G40.909 Epilepsy, unspecified, not intractable, without status epilepticus; G43.909 Migraine, unspecified, not intractable, without status migrainosus
CPT/HCPCS: 36415; 70450; 71045; 72125; 80053; 81001; 82009; 82962; 84484; 85025; 85610; 85730; 87426; 93005; 97110; 97116; 97162; 97166; 97530; 97535; 97802; 99285; J7030; P9612; A4216

== ENCOUNTER 2020-11-21 11:52 | Emergency (ER) | payer MEDICARE, MEDICAID, SELFPAY ==
[2020-11-21 11:53] VITALS: BP 115/67; PULSE 85; RESP 17; TEMP 36.7; O2SAT 96; BMI 36.7
[2020-11-21 12:00] LABS: Bedside Glucose 199 mg/dL (70-110)
--- NOTE | 2020-11-21 12:12 | EKG12_ITS ---
Test Reason : Blood Pressure : / mmHG Vent. Rate : 077 BPM Atrial Rate : 087 BPM P-R Int : 000 ms QRS Dur : 132 ms QT Int : 432 ms P-R-T Axes : 000 -50 008 degrees QTc Int : 488 ms Atrial fibrillation Right bundle branch block Left anterior fascicular block Bifascicular block Abnormal ECG Confirmed by MARICARMEN GALINDO, MARCK ([id number]), script editor WILLIS HAWKINS ([id number]) on 11/23/2020 10:29:10 AM Referred By: SENDY Confirmed By:MARCK HERNADEZ MD
--- NOTE | 2020-11-21 12:13 | ED.VISSUMM ---
- ER Visit Summary Date of Service: 11/21/20 Chief Complaint: Drowsy History of Present Illness: The patient is a 75 F [] Physical Examination: Alert female no acute distress vital signs stable afebrile. Pulse ox 96% on room air no signs of hypoxia. HEENT exam atraumatic. Nontender. Pupils round reactive light. Patient speaking. No facial droop no signs of trauma. Neck nontender no lymphadenopathy. Lungs clear to auscultation bilaterally. Heart A. fib at 80 no murmur. Chest were nontender. Abdomen soft nontender normal bowel sounds no peritoneal signs. Patient moving all 4 extremities. Calves are nontender. Neurologically she is awake. She is answering questions. She is following commands. She knows she is in the hospital. Back nontender. Test Results: Chest x-ray portable 1 view interpreted by myself shows no acute abnormality. Chronic changes. Left-sided pacemaker. Also read by the radiologist agrees. EKG A. fib rate of 77 right bundle branch block. CBC white count of 10 hemoglobin 12 no bands chemistries unremarkable except BUN 27 creatinine 1.3 a normal gap glucose 151 liver enzymes normal. UA negative. Lactic acid 1.6. Repeat exam patient is doing well at 2:53 PM. Resting comfortably. She will be discharged to home. Emergency Department Course and Treatment: Elderly female with reported mental status change from home sent in by squad. Treatment Plan: Patient follow-up with her primary care physician. Return if worse. Disposition: Discharge Impression: Lysed weakness Acute on chronic A. fib History of diabetes This note was generated with [employer] dictation software. It may contain incorrect words, spelling, and punctuation that were not noted in review of the chart prior to signing ED Disposition - Plan for ED Patient: Referrals: Emerita Gottlieb MD [Primary Care Provider] -
--- NOTE | 2020-11-21 12:55 | RAD_ITS ---
STUDY: X-RAY CHEST REASON FOR EXAM: Female, 75 years old. MS CHANGE TECHNIQUE: Single AP portable view of the chest. COMPARISON: Comparison is made with prior study dated 10/20/2020. FINDINGS: EKG electrodes are seen. Stable mild increased markings in the lingular segment of the left upper lobe suggestive of scarring. There is no demonstrated pleural abnormality. Normal size heart. Left unipolar pacemaker is seen. A loop recorder device is seen overlying the left cardiac border. Normal mediastinum and susan. Normal visualized pulmonary arteries. There is atherosclerotic calcification of the aortic arch with tortuosity. There are diffuse degenerative changes of the visualized thoracic spine. There is degenerative osteoarthritis of the bilateral shoulders. There is no demonstrated abnormality of the visualized soft tissue structures of the upper abdomen. RAD/Chest 1 View (Portable) IMPRESSION: Stable mild increased markings in the lingular segment of the left upper lobe suggestive of scarring. Electronically Signed: Santiago Kwok MD at 13:24 EST , Service support ,
[2020-11-21 13:03] LABS: ALB/GLOB Ratio 0.7 RATIO (0.9-2.4); AST(SGOT) 16 U/L (15-37); Alanine Aminotransfer ALT/SGPT 23 U/L (13-56); Albumin, Serum 3.1 g/dL (3.2-5.0); Alkaline Phosphatase 104 U/L (45-117); Anion Gap 4 (5-15); BUN 27 mg/dL (7-18); BUN/Creat Ratio 19.6 RATIO (10-20); Calcium,Total 9.4 mg/dL (8.5-10.1); Chloride 106 mmol/L (98-107); Creatinine, Serum 1.38 mg/dL (0.55-1.02); EST Glomerular Filtration Rate 39 mL/min (>60); Est Glom Filt Rate - Afr Amer 48 mL/min (>60); Estimated Creatinine Clearance 31.96 ml/min; Globulin 4.2 g/dL (2.2-4.2); Glucose 151 mg/dL (74-106); Protein, Total 7.3 g/dL (6.4-8.2); Sodium Level 142 mmol/L (136-145)
[2020-11-21 13:05] LABS: Absolute Lymphocyte Count 1.98 X10^3/uL (0.83-4.51); Basophil# 0.07 X10^3/uL; Basophil% 0.7 % (0-1); Eosinophil# 0.26 X10^3/uL; Eosinophils% 2.6 % (0-5); Hematocrit 39.7 % (37-47); Hemoglobin 12.1 g/dL (12.0-15.0); Lymphocyte # 1.98 X10^3/ul (4.0); Lymphocyte % 19.9 % (19-41); Mean Corp Hgb Conc 30.5 g/dL (32-36); NRBC Flagged by Analyzer 0 % (0-5); Neutrophil # 7.02 X10^3/uL (2.7-7.7); Neutrophil % 70.4 % (47-70); Platelet Count 213 K/mm3 (150-450); RBC Distribution Width CV 15.7 % (11.6-14.6); RBC Distribution Width SD 46.4 fl (35.1-43.9); Red Blood Count 4.84 M/mm3 (4.2-5.4)
[2020-11-21 13:13] LABS: Lactic Acid 1.6 mmol/L (0.4-1.9)
[2020-11-21 13:39] VITALS: BP 118/79; PULSE 78; RESP 18; O2SAT 94
[2020-11-21 13:52] LABS: Bacteria 0 SEEN /hpf (None Seen); Mucous, Urine 0 SEEN /hpf (<or=2+); Red Blood Cells-Urine 0 SEEN /hpf (0-5); White Blood Cells 0 SEEN /hpf (0-5)
[2020-11-21 13:54] VITALS: BP 118/74; PULSE 75; RESP 14; TEMP 36.7; O2SAT 98
[2020-11-21 13:54] LABS: Color, Urine Yellow (Yellow); Glucose, Dipstick Normal (Normal); Ketone-Dipstick Negative (Negative); Leukocyte Esterase-Dipstick 25 /ul (Negative); Nitrite-Dipstick Negative (Negative); Occult Blood-Urine Negative /ul (Negative); Protein-Dipstick Negative (Negative); Urine Bilirubin Dipstick Negative (Negative); Urine Clarity Clear (Clear); Urine Urobilinogen Normal (Normal)
[2020-11-21 14:04] LABS: Hyaline Cast 5-10 SEEN /lpf (0-5); Squamous Epithelial Cells - UA 0-5 SEEN /hpf (5-10)
[2020-11-21 14:49] VITALS: BP 109/74; PULSE 72; RESP 20; O2SAT 94
[2020-11-21 14:57] VITALS: BP 115/85; PULSE 78; RESP 19; TEMP 36.6; O2SAT 100
--- NOTE | 2020-11-21 15:00 | ED.DEP ---
ED Disposition - Plan for ED Patient: Disposition: Home or Assisted Living Instructions: ED Weakness (Uncertain Cause) Referrals: Emerita Gottlieb MD [Primary Care Provider] - 3-5 Days Additional Instructions: Your labs were unremarkable today. Follow-up with your doctor. Return if you are feeling worse.
[2020-11-21 15:27] VITALS: BP 117/85; PULSE 76; RESP 16; O2SAT 98
== END 2020-11-21 16:00 | disposition home or self-care (01) ==
PROVIDERS: Emergency Provider Emergency Medicine; PCP Internal Medicine
DX: R53.1 Weakness (principal); E11.9 Type 2 diabetes mellitus without complications; I48.20 Chronic atrial fibrillation, unspecified; I25.10 Atherosclerotic heart disease of native coronary artery without angina pectoris; I11.0 Hypertensive heart disease with heart failure; I50.9 Heart failure, unspecified; E11.22 Type 2 diabetes mellitus with diabetic chronic kidney disease
CPT/HCPCS: 71045; 80053; 81001; 82962; 83605; 85025; 93005; 96360; 99285; P9612; A4216

== ENCOUNTER 2020-12-13 07:15 | Inpatient (IN) | payer MEDICARE, MEDICAID, SELFPAY ==
[2020-12-13] VITALS (11 sets, daily range): BP systolic 104–193; BP diastolic 61–107; PULSE 67–89; RESP 9–19; TEMP 36.2–36.7; O2SAT 92–100; BMI 34.3; BMI 35.3
--- NOTE | 2020-12-13 07:29 | EKG12_ITS ---
Test Reason : FALL Blood Pressure : / mmHG Vent. Rate : 079 BPM Atrial Rate : 092 BPM P-R Int : 000 ms QRS Dur : 134 ms QT Int : 428 ms P-R-T Axes : 000 -41 -10 degrees QTc Int : 490 ms Atrial fibrillation Left axis deviation Right bundle branch block Abnormal ECG Confirmed by MARICARMEN GALINDO, MARCK ([id number]), editorial project manager WILLIS HAWKINS ([id number]) on 12/18/2020 2:16:14 PM Referred By: KATHLEEN Confirmed By:MARCK HERNADEZ MD
--- NOTE | 2020-12-13 07:29 | CT_ITS ---
STUDY: CT BRAIN WITHOUT CONTRAST REASON FOR EXAM: Female, 75 years old. Trauma RADIATION DOSAGE (If Supplied By Facility): CTDIvol = ( 44.99 ) mGy, DLP = ( 779.24 ) mGycm TECHNIQUE: Transaxial CT imaging of the brain was performed without administration of intravenous contrast material. Individualized dose optimization techniques were used for this CT. COMPARISON: Comparison is made with prior study dated 10/20/2020. FINDINGS: Normal soft tissue structures. There is hyperostosis frontalis internus. There is mild cerebral atrophy with widening of the extra-axial spaces and ventricular dilatation. There are areas of decreased attenuation within the white matter tracts of the supratentorial brain, consistent with microvascular disease changes. Normal basal ganglia and thalami. Normal brainstem. Normal cerebellum. There is no intracranial hemorrhage. There are no findings of an acute ischemic infarction. Atherosclerotic calcification of the vertebral arteries and cavernous portions of the internal carotid arteries bilaterally. Normal visualized paranasal sinuses. CT/Brain/Head without Contrast IMPRESSION: Chronic involutional changes of the brain. Electronically Signed: Santiago Kwok MD at 8:31 EST , Service support ,
--- NOTE | 2020-12-13 07:30 | RAD_ITS ---
STUDY: X-RAY CHEST REASON FOR EXAM: Female, 75 years old. Cough TECHNIQUE: Single AP portable view of the chest. COMPARISON: Comparison is made with prior study dated 11/21/2020. FINDINGS: EKG electrodes are seen. Mild degree of vascular congestion. There is no demonstrated pleural abnormality. There is moderate cardiac enlargement. Normal mediastinum and susan. Normal visualized pulmonary arteries. Normal visualized aortic arch and descending thoracic aorta. There are diffuse degenerative changes of the visualized thoracic spine. Normal visualized ribs, clavicles, and shoulders. There is no demonstrated abnormality of the visualized soft tissue structures of the upper abdomen. RAD/Chest 1 View (Portable) IMPRESSION: Mild degree of vascular congestion. Cardiomegaly. Electronically Signed: Santiago Kwok MD at 8:27 EST , Service support ,
--- NOTE | 2020-12-13 07:32 | CT_ITS ---
STUDY: CT CERVICAL SPINE WITHOUT CONTRAST REASON FOR EXAM: Female, 75 years old. Trauma RADIATION DOSAGE (If Supplied By Facility): CTDIvol = ( 26.21 ) mGy, DLP = ( 456.48 ) mGycm TECHNIQUE: High resolution transaxial imaging was performed without contrast material. Sagittal and coronal images were reconstructed. Individualized dose optimization techniques were used for this CT. COMPARISON: Comparison is made with prior examination dated 10/20/2020. FINDINGS: Normal craniovertebral junction. There are degenerative changes of the anterior atlantoaxial articulation. Normal odontoid process. Normal cervical lordosis. Normal vertebral bodies and posterior osseous elements. C2-3: The disc space is maintained. There is evidence of facet joint osteoarthritis and hypertrophy on the left side. No significant neural foraminal stenosis is seen. C3-4: Normal endplates. Normal disc height and morphology. Normal central canal and intervertebral neuroforamina. C4-5: Moderate degree of disc space narrowing. Subchondral sclerosis. Spondylosis. Uncovertebral arthrosis worse on the right side with mild right neural foraminal stenosis. Mild to moderate sized central disc bulge. C5-6: Moderate degree of disc space narrowing and spondylosis. Uncovertebral arthrosis. Moderate degree of left neural foraminal stenosis. Moderate-sized diffuse posterior disc bulge. C6-7: Moderate degree of disc space narrowing. Spondylosis. Uncovertebral arthrosis. No significant stenosis is seen. C7-T1: Normal endplates. Normal disc height and morphology. Normal central canal and intervertebral neuroforamina. Atherosclerotic calcification of the carotid bifurcation. CT/Spine Cervical without Contras IMPRESSION: Multilevel degenerative changes, as described above. Stable examination. Electronically Signed: Santiago Kwok MD at 8:34 EST , Service support ,
[2020-12-13 07:42] LABS: Carboxyhemoglobin Frac (CO) 1.8 % (0.0-1.5)
[2020-12-13 07:47] LABS: Absolute Lymphocyte Count 1.57 X10^3/uL (0.83-4.51); Absolute Neutrophil Count 5.6 X10^3/uL (2.0-7.7); Basophil# 0.06 X10^3/uL; Basophil% 0.7 % (0-1); Eosinophils% 2.5 % (0-5); Hematocrit 38.2 % (37-47); Lymphocyte # 1.57 X10^3/ul (4.0); Lymphocyte % 19.3 % (19-41); Mean Corp Hgb Conc 31.4 g/dL (32-36); Mean Corpuscular Hgb 25.8 pg (27.0-32.0); Monocyte# 0.63 X10^3/uL; Monocyte% 7.7 % (0-10); NRBC Flagged by Analyzer 0 % (0-5); Neutrophil # 5.64 X10^3/uL (2.7-7.7); Neutrophil % 69.4 % (47-70); Platelet Count 183 K/mm3 (150-450); RBC Distribution Width CV 15.5 % (11.6-14.6); RBC Distribution Width SD 45.6 fl (35.1-43.9); Red Blood Count 4.66 M/mm3 (4.2-5.4); White Blood Count 8.1 K/mm3 (4.4-11.0)
--- NOTE | 2020-12-13 07:47 | ED.DCSUM_ITS ---
History of Present Illness Chief Complaint: Fall Narrative: Patient presented secondary to a fall with altered mental status. Patient reports to me that she got up to go to the bathroom and suffered a fall. She really is unsure about the history surrounding fall and cannot tell me specifically if she passed out but states that she did feel generally weak and fell down onto her buttock. She denies to me that she hit her head. Patient tells me that she feels generally fatigued, and this was preceding her fall. S he denies specific infectious signs or symptoms such as fever cough nausea vomiting diarrhea dysuria. She denies any chest pain. She denies any headaches. EMS noted that the patient had decreased level of consciousness after this fall. Patient denies to me that she is on any sort of anticoagulants. Past Medical History - Allergies and Home Meds Allergies/Adverse Reactions: Allergies atorvastatin calcium [From Lipitor] Allergy (Verified 12/13/20 07:21) dont remember codeine Allergy (Verified 12/13/20 07:21) Rash iodine Allergy (Verified 12/13/20 07:21) Rash Latex, Natural Rubber Allergy (Verified 12/13/20 07:21) Rash lovastatin Allergy (Verified 12/13/20 07:21) Rash rosuvastatin calcium [From Crestor] Allergy (Verified 12/13/20 07:21) rash\ naproxen [From Naprosyn] Adverse Reaction (Verified 12/13/20 07:21) Upset Stomach pregabalin [From Lyrica] Adverse Reaction (Verified 12/13/20 07:21) Upset Stomach Sulfa (Sulfonamide Antibiotics) Adverse Reaction (Verified 12/13/20 07:21) Upset Stomach Primary Care Physician: Emerita Gottlieb MD [Primary Care Provider] - Prior records reviewed: Yes Past Medical History: - - Diabetes, hypertension, bone cancer, coronary artery disease, chronic kidney disease Surgical History: hysterectomy, - - PCI x2, thyroidectomy for goiter, left lower extremity surgery for bone cancer, pacemaker, hysterectomy. Lives: Alone Smoking Status: Never smoker Alcohol: None Drugs: None - Family History Maternal Family History: Family History (Last Reviewed 05/18/20 @ 18:50 by Steven ACUNA, PA) Other Cancer Family History: Reports: - - History of alcoholic cirrhosis Paternal Family History: Family History (Last Reviewed 05/18/20 @ 18:50 by Steven ACUNA PA) Other Cancer Family History: Reports: Cancer - Her father had colon cancer. Sibling Family History: Family History (Last Reviewed 05/18/20 @ 18:50 by Steven ACUNA PA) Other Cancer Family History: Reports: Cancer - Her sister had ovarian cancer., Hypertension Review of Systems All systems negative except as indicated General: Reports: Malaise, - - Generalized fatigue Eyes: Denies: Visual changes - bilaterally, Diplopia ENT: Denies: Rhinorrhea, Sore throat Cardiovascular: Denies: Chest pain, Palpitations Respiratory: Denies: Dyspnea, Cough, Dyspnea on exertion Gastrointestinal: Denies: Abdominal pain, Nausea, Vomiting, Diarrhea, Melena, Hematochezia Genitourinary: Denies: Dysuria, Hematuria, Frequency Musculoskeletal: Denies: Back pain, Extremity Pain Skin: Denies: Rash, Wounds Neurological: Denies: Headache, Weakness, Numbness Physical Exam Vital Signs/Narrative: Vital Signs Temp Pulse Resp BP Pulse Ox 12/13/20 07:16 98.0 F 89 9 L 182/107 H 12/13/20 07:15 87 18 182/107 H 92 Inital Vital Signs reviewed: Yes General: Well nourished, Well developed, Obese, - - Patient is somnolent but arousable to voice. She follows commands. GCS is 13 Head: Normocephalic, Atraumatic Eyes: Perrl, EOMI ENT: Moist mucous membranes Neck: Supple, Nontender Cardiovascular: Regular rate, Regular rhythm, No murmurs, - - 2+ radial pulses bilaterally symmetric Respiratory: No distress, CTA bilaterally, Chest nontender Abdomen: Soft, Nontender, Nondistended, Normal bowel sounds Back: Nontender, Normal Inspection Extremities: - - Bilaterally symmetric lower extremity edema with tenderness to palpation of the legs bilaterally which patient states is at baseline Skin: Normal color, No rash Neurological: - - Patient is somnolent but arousable to voice, she opens her eyes on command, she moves her upper and lower extremities equally. She has slurred speech but does not appear aphasic Diagnostic/Tx/Re-eval Clinical Impression(s) from Imaging Studies Brain CT 12/13/20 07:29 IMPRESSION: Chronic involutional changes of the brain. Electronically Signed: Santiago Kwok MD at 8:31 EST , Service support , Chest X-Ray 12/13/20 07:30 IMPRESSION: Mild degree of vascular congestion. Cardiomegaly. Electronically Signed: Santiago Kwok MD at 8:27 EST , Service support , Cervical Spine CT 12/13/20 07:32 IMPRESSION: Multilevel degenerative changes, as described above. Stable examination. Electronically Signed: Santiago Kwok MD at 8:34 EST , Service support , Laboratory Data 12/13/20 12/13/20 12/13/20 07:19 07:21 07:21 WBC 8.1 RBC 4.66 Hgb 12.0 Hct 38.2 MCV 82.0 MCH 25.8 L MCHC 31.4 L RDW Std Deviation 45.6 H RDW Coeff of Candace 15.5 H Plt Count 183 MPV 13.0 H Immature Gran % (Auto) 0.400 Neut % (Auto) 69.4 Lymph % (Auto) 19.3 [place] % (Auto) 7.7 Eos % (Auto) 2.5 Baso % (Auto) 0.7 Absolute Neuts (auto) 5.6 Absolute Lymphs (auto) 1.57 Nucleated RBC % 0 PT 12.7 INR 1.0 APTT 25.5 Specimen Type VBG pH VBG pO2 VBG HCO3 VBG Total CO2 VBG O2 Sat (Calc) VBG Base Excess VBG Carboxyhemoglobin POC Mix VBG pCO2 Pt Tmp Sodium Potassium Chloride Carbon Dioxide Anion Gap BUN Creatinine Estim Creat Clear Calc Est GFR (MDRD) Af Amer Est GFR (MDRD) Non-Af BUN/Creatinine Ratio Glucose Calcium Total Bilirubin AST ALT Alkaline Phosphatase Troponin I Total Protein Albumin Globulin Albumin/Globulin Ratio Urine Color Urine Clarity Urine pH Ur Specific [place] Urine Protein Urine Glucose (UA) Urine Ketones Urine Occult Blood Urine Nitrite Urine Bilirubin Urine Urobilinogen Ur Leukocyte Esterase Urine RBC Urine WBC Ur Squamous Epith Cells Urine Bacteria Urine Mucus POC Glucose 472 H* 12/13/20 12/13/20 12/13/20 07:21 07:21 07:41 WBC RBC Hgb Hct MCV MCH MCHC RDW Std Deviation RDW Coeff of Candace Plt Count MPV Immature Gran % (Auto) Neut % (Auto) Lymph % (Auto) [place] % (Auto) Eos % (Auto) Baso % (Auto) Absolute Neuts (auto) Absolute Lymphs (auto) Nucleated RBC % PT INR APTT Specimen Type VBG pH VBG pO2 VBG HCO3 VBG Total CO2 VBG O2 Sat (Calc) VBG Base Excess VBG Carboxyhemoglobin 1.8 H POC Mix VBG pCO2 Pt Tmp Sodium 138 Potassium 4.1 Chloride 105 Carbon Dioxide 27.0 Anion Gap 6 BUN 23 H Creatinine 1.42 H Estim Creat Clear Calc 32.26 Est GFR (MDRD) Af Amer 46 L Est GFR (MDRD) Non-Af 38 L BUN/Creatinine Ratio 16.2 Glucose 489 H* Calcium 8.5 Total Bilirubin 0.40 AST 23 ALT 33 Alkaline Phosphatase 113 Troponin I < 0.015 Total Protein 7.2 Albumin 3.1 L Globulin 4.1 Albumin/Globulin Ratio 0.8 L Urine Color Yellow Urine Clarity Sl. Cloudy Urine pH 6.0 Ur Specific [place] 1.010 Urine Protein 30 H Urine Glucose (UA) 1000 H Urine Ketones Negative Urine Occult Blood 10 H Urine Nitrite Negative Urine Bilirubin Negative Urine Urobilinogen Normal Ur Leukocyte Esterase Negative Urine RBC 0-5 SEEN Urine WBC 0 SEEN Ur Squamous Epith Cells 0-5 SEEN Urine Bacteria 0 SEEN Urine Mucus 0 SEEN POC Glucose 12/13/20 08:10 WBC RBC Hgb Hct MCV MCH MCHC RDW Std Deviation RDW Coeff of Candace Plt Count MPV Immature Gran % (Auto) Neut % (Auto) Lymph % (Auto) [place] % (Auto) Eos % (Auto) Baso % (Auto) Absolute Neuts (auto) Absolute Lymphs (auto) Nucleated RBC % PT INR APTT Specimen Type ANUJ VBG pH 7.33 VBG pO2 41 H VBG HCO3 27 H VBG Total CO2 28 VBG O2 Sat (Calc) 72 H VBG Base Excess 1 VBG Carboxyhemoglobin POC Mix VBG pCO2 Pt Tmp 50.0 Sodium Potassium Chloride Carbon Dioxide Anion Gap BUN Creatinine Estim Creat Clear Calc Est GFR (MDRD) Af Amer Est GFR (MDRD) Non-Af BUN/Creatinine Ratio Glucose Calcium Total Bilirubin AST ALT Alkaline Phosphatase Troponin I Total Protein Albumin Globulin Albumin/Globulin Ratio Urine Color Urine Clarity Urine pH Ur Specific [place] Urine Protein Urine Glucose (UA) Urine Ketones Urine Occult Blood Urine Nitrite Urine Bilirubin Urine Urobilinogen Ur Leukocyte Esterase Urine RBC Urine WBC Ur Squamous Epith Cells Urine Bacteria Urine Mucus POC Glucose - EKG Initial EKG Interpretation: - - Atrial fibrillation with right bundle branch block morphology ventricular rate is 79, no evidence of ST segment deviation, no abnormal T waves, no evidence of acute ischemic changes. - Medical Decision Making Patient presented secondary to being encephalopathic. On exam the patient is somewhat sedate but this does not seem to be a presentation of a stroke, likewise would not really have a last known well so stroke team was not activated. Broad work-up was obtained. CT imaging of the brain was negative, CT imaging of the C-spine was negative. Chest x-ray 1 view by my personal review as well as radiology show some pulmonary vascular congestion. Patient's lab work shows her to have hyperglycemia with a normal anion gap, no evidence of urinary tract infection. No evidence of pathologic elevation of troponin. I gave the patient her oral doses of her antihypertensives as her daughter stated that she was not taking her medications, as well as a dose of IV Lasix. Patient at this point is encephalopathic hyperglycemic with some heart failure requiring supplemental oxygen. I believe the patient requires admission. Daughter was also concerned about the patient's level of care at home as she lives alone and I did communicate this to the hospitalist. Patient be admitted for further treatment. ED Disposition - Plan for ED Patient: Disposition: Acute Care Hospital [facility] Diagnosis: Metabolic encephalopathy, Hyperglycemia, Congestive heart failure
[2020-12-13 08:05] LABS: Bedside Glucose 472 mg/dL (70-110)
[2020-12-13 08:05] LABS: ALB/GLOB Ratio 0.8 RATIO (0.9-2.4); AST(SGOT) 23 U/L (15-37); Alanine Aminotransfer ALT/SGPT 33 U/L (13-56); Albumin, Serum 3.1 g/dL (3.2-5.0); Alkaline Phosphatase 113 U/L (45-117); Anion Gap 6 (5-15); BUN 23 mg/dL (7-18); BUN/Creat Ratio 16.2 RATIO (10-20); Calcium,Total 8.5 mg/dL (8.5-10.1); Chloride 105 mmol/L (98-107); Creatinine, Serum 1.42 mg/dL (0.55-1.02); EST Glomerular Filtration Rate 38 mL/min (>60); Est Glom Filt Rate - Afr Amer 46 mL/min (>60); Estimated Creatinine Clearance 32.26 ml/min; Globulin 4.1 g/dL (2.2-4.2); Glucose 489 mg/dL (74-106); Potassium 4.1 mmol/L (3.5-5.1); Protein, Total 7.2 g/dL (6.4-8.2); Sodium Level 138 mmol/L (136-145)
[2020-12-13 08:07] LABS: Bacteria 0 SEEN /hpf (None Seen); Mucous, Urine 0 SEEN /hpf (<or=2+); White Blood Cells 0 SEEN /hpf (0-5)
[2020-12-13 08:15] LABS: Blood Gas Specimen Type VEN; VBG BASE EXCESS 1 mmol/L (-1.0-3.5); VBG Bicarbonate 27 mmol/L (22-26); VBG PO2 41 mmHg (25-40); VBG SO2 72 % (50-70); VBG TCO2 28 mmol/L (23-33); VBG pH 7.33 (7.32-7.42)
[2020-12-13 08:20] LABS: Color, Urine Yellow (Yellow); Glucose, Dipstick 1000 mg/dl (Normal); Ketone-Dipstick Negative (Negative); Leukocyte Esterase-Dipstick Negative /ul (Negative); Nitrite-Dipstick Negative (Negative); Occult Blood-Urine 10 /ul (Negative); Protein-Dipstick 30 mg/dl (Negative); Urine Bilirubin Dipstick Negative (Negative); Urine Clarity Sl. Cloudy (Clear); Urine Urobilinogen Normal (Normal)
[2020-12-13 08:21] LABS: Prothrombin Time (Protime)PT. 12.7 SECONDS (11.7-14.9)
[2020-12-13 08:25] LABS: Partial Thromboplast Time 25.5 Seconds (24.1-36.2)
[2020-12-13 08:30] LABS: Red Blood Cells-Urine 0-5 SEEN /hpf (0-5); Squamous Epithelial Cells - UA 0-5 SEEN /hpf (5-10)
[2020-12-13] MEDS: Insulin Lispro 100 UNIT/ML INSULN.PEN 15 UNIT SC (08:49)
[2020-12-13] MEDS: Furosemide 40 MG/4 ML Vial IV (09:03)
[2020-12-13] MEDS: Isosorbide Mononitrate 30 MG Tablet 90 MG PO (09:37)
[2020-12-13] MEDS: Metoprolol(XL)Succ 50 MG Tablet PO (09:37)
--- NOTE | 2020-12-13 10:13 | HP.PCM_ITS ---
Problem List (1) Noncompliance Status: Chronic (2) Hyperglycemia Status: Acute (3) Metabolic encephalopathy Status: Acute (4) Sick sinus syndrome Status: Chronic (5) Atherosclerosis of coronary artery without angina pectoris Status: Chronic Qualifiers: Coronary Disease-Associated Artery/Lesion type: [place] artery [place] vs. transplanted heart: [place] heart Qualified Code(s): I25.10 - Atherosclerotic heart disease of [place] coronary artery without angina pectoris (6) History of coronary artery stent placement Status: Chronic Comment: [id number]-[id number]-Fweo LAD w/ 3.5 x 12 mm Taxus Express 10/23/2004; [id number]-HVY-Spoy Inferolateral Marginal Branch w/ 3.0 x 9 mm [place] Stent 01/25/2011 @ [facility] (7) Chronic diastolic (congestive) heart failure Status: Chronic (8) Essential (primary) hypertension Status: Chronic (9) Hyperlipidemia Status: Chronic Qualifiers: Hyperlipidemia type: unspecified Qualified Code(s): E78.5 - Hyperlipidemia, unspecified (10) Bone cancer Status: Chronic History of Present Illness Date of Admission: 12/13/20 Chief Complaint: Fall. The patient is a 75 year old F with past medical history as mentioned above presented to the emergency room because of fall and change in mental status. The patient is very poor informant and was not able to provide detailed history. She is alert and oriented to herself, not the place but she is disoriented to time and date. According to the patient, she stated that she got up to the bathroom and she had a fall. She was not able to tell for sure if she lost her consciousness. She denied head trauma. She complained of weakness and fatigue. When the EMS arrived to her house, patient was sleepy and lethargic. Currently, she is alert and noted x2, this oriented to time. She denied any pain. Denied chest pain or shortness of breath. Denied back pain, arm or leg pain. Denied abdominal pain, nausea or vomiting. Denied focal arm or leg weakness. Apparently, patient was not taking any medication at home and she stated that she takes her medication only when she remembers. She will history of type 2 diabetes mellitus which has been uncontrolled, her hemoglobin A1c was 11.2% on Feb, 2020 and her sugar today is 489 mg/dL. She has been on insulin and she stated that she takes insulin only if she remember. She had history of chronic atrial fibrillation, has been on metoprolol for rate control but not on anticoagulation. She will history of hypothyroidism and she has been on levothyroxine, TSH was normal today. In the emergency department, her blood pressure was elevated, was 182/107, afebrile, heart rate stable, pulse ox is 92% on room air. Routine blood work was remarkable for BUN of 23, creatinine is 1.42, blood glucose is 489. Serum bicarb is 27 anion gap is 6. LFT was unremarkable. TSH was normal. EKG revealed chronic A. fib, no acute ischemic changes. Troponin is negative. Urinalysis showed no evidence of UTI. CT brain showed no acute findings. Chest x-ray revealed cardiomegaly and minimal pulmonary vascular congestion, doubt CHF. CT cervical spine showed no acute fractures or dislocations. She is being admitted for hypertensive urgency, hyperglycemia/uncontrolled type 2 diabetes mellitus, encephalopathy, debility and noncompliance. Past Medical History Past Medical History (Chronic Problems): Chronic Problems (Last Updated 12/13/20 @ 09:[address] Maurizio Brannon MD) Noncompliance (Chronic) History of permanent cardiac pacemaker placement (Chronic 03/05/17) Sick sinus syndrome (Chronic) Longstanding persistent atrial fibrillation (Chronic) Atherosclerosis of coronary artery without angina pectoris (Chronic) History of coronary artery stent placement (Chronic 01/25/11) [id number] LAD w/ 3.5 x 12 mm Taxus Express 10/23/2004; [id number] Inferolateral Marginal Branch w/ 3.0 x 9 mm [place] Stent 01/25/2011 @ [facility] Right bundle branch block (RBBB) (Chronic) Chronic diastolic (congestive) heart failure (Chronic) Nonrheumatic aortic (valve) stenosis (Chronic) Essential (primary) hypertension (Chronic) Hyperlipidemia (Chronic) Bone cancer (Chronic) Medical History: Medical History (Last Updated 12/13/20 @ 09:[address] Maurizio Brannon MD) Sick sinus syndrome (Chronic) I49.5 Longstanding persistent atrial fibrillation (Chronic) I48.11 Atherosclerosis of coronary artery without angina pectoris (Chronic) I25.10 Right bundle branch block (RBBB) (Chronic) I45.10 Chronic diastolic (congestive) heart failure (Chronic) I50.32 Nonrheumatic aortic (valve) stenosis (Chronic) I35.0 Essential (primary) hypertension (Chronic) I10 Hyperlipidemia (Chronic) E78.5 Bone cancer (Chronic) C41.9 CKD (chronic kidney disease) stage 3, GFR 30-59 ml/min Chronic back pain M54.9, G89.29 Goiter E04.9 History of urinary incontinence Z87.898 Hypothyroidism E03.9 Morbid obesity E66.01 Osteoarthritis PVD (peripheral vascular disease) I73.9 AISHWARYA 02/2019 Mild Sleep apnea G47.30 Type II diabetes mellitus E11.9 Cholelithiasis K80.20 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 L97.912 s/p traumatic hematoma Allergies atorvastatin calcium [From Lipitor] Allergy (Verified 12/13/20 07:21) dont remember codeine Allergy (Verified 12/13/20 07:21) Rash iodine Allergy (Verified 12/13/20 07:21) Rash Latex, Natural Rubber Allergy (Verified 12/13/20 07:21) Rash lovastatin Allergy (Verified 12/13/20 07:21) Rash rosuvastatin calcium [From Crestor] Allergy (Verified 12/13/20 07:21) rash\ naproxen [From Naprosyn] Adverse Reaction (Verified 12/13/20 07:21) Upset Stomach pregabalin [From Lyrica] Adverse Reaction (Verified 12/13/20 07:21) Upset Stomach Sulfa (Sulfonamide Antibiotics) Adverse Reaction (Verified 12/13/20 07:21) Upset Stomach Home Medications: Ambulatory Orders Medication Instructions Recorded Metoprolol Succinate [Toprol Xl] 50 mg PO DAILY 10/11/17 Prasugrel HCl 10 mg PO DAILY 06/04/18 Simvastatin [Zocor] 40 mg PO QHS 06/04/18 Cetirizine HCl [Zyrtec] 10 mg PO DAILY PRN 11/18/18 Duloxetine HCl 30 mg PO DAILY 11/18/18 Isosorbide Mononitrate [Imdur] 90 mg PO DAILY 02/29/20 Levothyroxine [Synthroid] 50 mcg PO DAILY 02/29/20 Memantine HCl [Memantine HCl ER] 14 mg PO DAILY 02/29/20 furosemide 20 mg tablet 20 mg PO BID tab 04/19/20 levetiracetam 500 mg tablet 500 mg PO BID tab 04/19/20 lisinopril 10 mg tablet 10 mg PO DAILY tab 04/19/20 Omeprazole [Prilosec] 20 mg PO DAILY 05/18/20 Sennosides/Docusate Sodium 1 tab PO DAILY 05/18/20 [Senexon-S 50-8.6 mg Tablet] Acetaminophen [Tylenol Tablet] 650 mg PO Q6H PRN PRN tab 05/22/20 Bisacodyl [Dulcolax] 5 mg PO DAILY PRN PRN tab 05/22/20 Insulin Lispro [Humalog KwikPen] 24 unit SUBCUT BIDLS insuln.pen 05/22/20 Insulin Lispro [Humalog KwikPen] 26 unit SUBCUT BREAKFAST 05/22/20 insuln.pen Insulin Lispro [Humalog KwikPen] See Protocol SUBCUT ACHS 05/22/20 insuln.pen Magnesium Hydroxide [Milk Of 30 ml PO DAILY PRN PRN udc 05/22/20 Magnesia] Nystatin Powder [Mycostatin Powder] 1 applic TOPICAL TID PRN 10/21/20 Insulin Glargine [Lantus SoloStar 85 units SC DAILY pen 10/23/20 Pen] Surgical History: Surgical History (Last Updated 12/13/20 @ 10:[address] Maurizio Brannon MD) History of permanent cardiac pacemaker placement (Chronic) Onset Date: 03/05/17 Z95.0 History of coronary artery stent placement (Chronic) Onset Date: 01/25/11 Z95.5 [id number]-[id number] LAD w/ 3.5 x 12 mm Taxus Express 10/23/2004; [id number]-Czip Inferolateral Marginal Branch w/ 3.0 x 9 mm [place] Stent 01/25/2011 @ [facility] History of hysterectomy Z90.710 History of loop recorder Onset Date: 2013 Z98.890 History of thyroidectomy Z90.09 Surgical History: hysterectomy, - - PCI x2, thyroidectomy for goiter, left lower extremity surgery for bone cancer, pacemaker, hysterectomy. Psychiatric History: Anxiety, Depression [employer] History: No pertinent [employer] history Lives: Alone Smoking Status: Never smoker Alcohol: None Drugs: None - *Family History Maternal Family History: Family History (Last Reviewed 05/18/20 @ 18:50 by Steven ACUNA, PA) Other Cancer History Items: - - History of alcoholic cirrhosis Paternal Family History: Family History (Last Reviewed 05/18/20 @ 18:50 by KALPANA Rendon) Other Cancer History Items: Cancer - Her father had colon cancer. Sibling Family History: Family History (Last Reviewed 05/18/20 @ 18:50 by KALPANA Rendon) Other Cancer History Items: Cancer - Her sister had ovarian cancer., Hypertension Review of Systems Constitutional: Reports: Weakness, Fatigue. Denies: Anorexia, Chills, Fever Eyes: Denies: Blurred vision, Double vision, Drainage, Redness HEENT: Denies: Difficulty Hearing, Ear Pain, Eye Pain, Nasal Congestion, Sore Throat Cardiovascular: Denies: Chest Pain, Chest Pressure, Edema, Heaviness, Light Headedness, Palpitations, Syncope Respiratory: Denies: Cough, Hemoptysis, Pleuritic Pain, Shortness of Breath, Sputum production, Wheezing Gastrointestinal: Denies: Abdominal Pain, Constipation, Diarrhea, Nausea, Vomiting Genitourinary: Denies: Dysuria, Frequency, Hematuria Musculoskeletal: Denies: Arm Pain, Back Pain, Foot Pain Skin: Denies: Dryness, Rash Neurological: Reports: Confusion. Denies: Balance problems, Double vision, Change in Speech, Slurred speech, Focal weakness, Headaches, Incoordination Psychiatric: Reports: Depression. Denies: Anxiety VTE Information - Inpt Only VTE Present on Admission: No VTE Mechan Device Prophylaxis: None VTE Pharm Prophylaxis ordered?: Yes Patient Problems: Active and Suspected Problems (Last Updated 12/13/20 @ 10:[address] Maurizio Brannon MD) Hyperglycemia (Acute) Metabolic encephalopathy (Acute) - Physical Exam Vitals/I&O's: Vital Signs Temp Pulse Resp BP Pulse Ox 98.1 F 77 19 H 193/106 H 98 12/13/20 09:32 12/13/20 09:32 12/13/20 09:32 12/13/20 09:32 12/13/20 09:32 Oxygen Flow Rate (L/min) 2 Oxygen Delivery Method Nasal Cannula Weight: 225 lb 1.471 oz Body Mass Index (BMI) 35.3 Finger Stick Blood Glucose 472 General: Alert, Cooperative, No apparent distress, Confused, - - Oriented to self and place, disoriented to time. HEENT: Atraumatic, PERRLA, EOMI, Normocephalic Oral: Moist Mucosa, No Gingival or Mucosal Lesions/ Ulcerations Neck: Supple, No JVD, Negative Carotid Bruits, Trachea Midline, Thyroid Normal Size and Texture Lungs: Clear to auscultation, No rhonchi, No wheeze, No rales, Diminished Cardiovascular: Normal S1, Normal S2, PMI Normal, Irregular Rate Abdomen: Bowel Sounds Present, Soft, Non Tender, Non-Distended, No Hepato- splenomegaly, Obese Extremities: No clubbing, No cyanosis, Edema Skin: No rashes, No breakdown Lymphatic: No Cervical, Supraclavicular, or Inguinal Adenopathy Neurological: Cranial nerves II-XII grossly intact, Motor Exam 5/5 strength throughout Psych/Mental Status: Appropriate, Flat Affect Microbiology Past 72 Hours 12/13/20 07:41 Mucosa - Nose SARS-CoV-2 Antigen (Rapid) - Final Laboratory Results 12/13/20 07:19: POC Glucose 472 H* 12/13/20 07:21: WBC 8.1, RBC 4.66, Hgb 12.0, Hct 38.2, MCV 82.0, MCH 25.8 L, MCHC 31.4 L, RDW Std Deviation 45.6 H, RDW Coeff of Candace 15.5 H, Plt Count 183, MPV 13.0 H, Immature Gran % (Auto) 0.400, Neut % (Auto) 69.4, Lymph % (Auto) 19.3, Catron % (Auto) 7.7, Eos % (Auto) 2.5, Baso % (Auto) 0.7, Absolute Neuts (auto) 5.6, Absolute Lymphs (auto) 1.57, Nucleated RBC % 0 12/13/20 07:21: PT 12.7, INR 1.0, APTT 25.5 12/13/20 07:21: Sodium 138, Potassium 4.1, Chloride 105, Carbon Dioxide 27.0, Anion Gap 6, BUN 23 H, Creatinine 1.42 H, Estim Creat Clear Calc 32.26, Est GFR (MDRD) Af Amer 46 L, Est GFR (MDRD) Non-Af 38 L, BUN/Creatinine Ratio 16.2, Glucose 489 H*, Calcium 8.5, Total Bilirubin 0.40, AST 23, ALT 33, Alkaline Phosphatase 113, Troponin I < 0.015, Total Protein 7.2, Albumin 3.1 L, Globulin 4.1, Albumin/Globulin Ratio 0.8 L 12/13/20 07:21: VBG Carboxyhemoglobin 1.8 H 12/13/20 07:21: TSH 3.60 12/13/20 07:41: Urine Color Yellow, Urine Clarity Sl. Cloudy, Urine pH 6.0, Ur Specific [place] 1.010, Urine Protein 30 H, Urine Glucose (UA) 1000 H, Urine Ketones Negative, Urine Occult Blood 10 H, Urine Nitrite Negative, Urine Bilirubin Negative, Urine Urobilinogen Normal, Ur Leukocyte Esterase Negative, Urine RBC 0-5 SEEN, Urine WBC 0 SEEN, Ur Squamous Epith Cells 0-5 SEEN, Urine Bacteria 0 SEEN, Urine Mucus 0 SEEN 12/13/20 08:10: Specimen Type ANUJ, VBG pH 7.33, VBG pO2 41 H, VBG HCO3 27 H, VBG Total CO2 28, VBG O2 Sat (Calc) 72 H, VBG Base Excess 1, POC Mix VBG pCO2 Pt Tmp 50.0 Clinical Impression(s) from Imaging Studies Brain CT 12/13/20 07:29 IMPRESSION: Chronic involutional changes of the brain. Electronically Signed: Santiago Kwok MD at 8:31 EST , Service support , Chest X-Ray 12/13/20 07:30 IMPRESSION: Mild degree of vascular congestion. Cardiomegaly. Electronically Signed: Santiago Kwok MD at 8:27 EST , Service support , Cervical Spine CT 12/13/20 07:32 IMPRESSION: Multilevel degenerative changes, as described above. Stable examination. Electronically Signed: Santiago Kwok MD at 8:34 EST , Service support , Current Medications Sodium Chloride (0.9% Saline Lock 10 Ml Syringe) 10 - 40 ml IV UD PRN PRN Reason: SALINE FLUSH Assessment/Plan All Active Problems (Last Updated 12/13/20 @ 10:[address] Maurizio Brannon MD) Debility (Acute) Hyperglycemia (Acute) Metabolic encephalopathy (Acute) This is a 75 years old female patient presented to the emergency room because of fall and change in mental status in the setting of chronic dementia and noncompliance, found to have hypertensive emergency and hyperglycemia without DKA and she is being admitted for treatment and she will need placement to prison facility. #1 hypertensive urgency: Due to noncompliance, patient has not been taking any medication because she does have dementia and she is forgetful. Blood pressure is elevated. EKG revealed A. fib, no acute ischemic changes. Troponin was negative. CT scan brain showed no acute findings. Chest x-ray reviewed, I doubt acute CHF at this time. Plan: Admit to PCU, cardiac monitoring, Tylenol as needed, Zofran as needed, resume metoprolol XL and lisinopril, start IV h ydralazine as needed, repeat CBC and BMP tomorrow morning, PT OT evaluation and treatment, patient will need placement to prison facility. #2 hyperglycemia/uncontrolled type 2 diabetes mellitus: Without history of DKA. It is likely again due to noncompliance as mentioned above. Patient stated that she takes her insulin when she remembers. Her hemoglobin A1c was 11.2% on Feb, 2020. Admission glucose was 489. Plan: Accu-Cheks every 4 hours, high medium dose sliding scale, continue home doses of Lantus and Humalog 3 times daily. #3 encephalopathy: It is probably metabolic, in the setting of chronic dementia. Currently, she is oriented x2. CT scan brain showed no acute findings. Plan to treat underlying high blood pressure and hyperglycemia, supportive treatment. #4 debility/functional decline/noncompliance: Patient has been forgetful, not taking her medication at home. She lives alone. Plan for PT OT evaluation and treatment, patient will need placement to prison facility. #5 chronic diastolic CHF: Again, I doubt acute CHF. Chest x-ray reviewed. Patient denied shortness of breath. She is on room air. Plan: Continue on p.o. Lasix, continue isosorbide mononitrate, lisinopril and metoprolol. #6 chronic atrial fibrillation: Heart rate stable, continue metoprolol for rate control. She is not on anticoagulation. #7 CAD status post stents: Stable, EKG reviewed, was unremarkable. Troponin was negative. Patient denied any chest pain. Continue prasugrel, statins, metoprolol, lisinopril and isosorbide mononitrate. #8 sick sinus syndrome status post pacemaker: Heart rate stable as mentioned above. #9 stage III chronic kidney disease: Baseline creatinine has been around 1.2 to 1.6 mg/dL. Admission creatinine is 1.42, close to baseline. #10 hypertension: Blood pressure was elevated, plan as above. #12 type 2 diabetes mellitus: Blood sugars uncontrolled. Plan as above. #13 hypothyroidism: TSH was normal, continue levothyroxine. #14 seizure disorder: Stable, continue Keppra twice daily. #15 dementia: Continue memantine. #16 DVT prophylaxis: Subcu heparin. This note was generated with [employer] dictation software. It may contain incorrect words, spelling, and punctuation that were not noted in checking the note before signing. Inpatient E&M: 68342 Init Hosp L3
--- NOTE | 2020-12-13 11:28 | CASEMGMT ---
MINAL called [facility] to see if patient is active and she is active. Her welfare case worker is Toshia Banda. Patient has home health aides M,W, and F for 4 hours through [facility] also known as [employer]. She has a medical alert button, she gets 14 meals a week delivered from [facility], and she has a medication dispenser through [facility]. Tonja SAVAGE MSW
[2020-12-13] MEDS: Insulin Lispro 100 UNIT/ML INSULN.PEN SC ×2 (12:06→15:16)
[2020-12-13] MEDS: HYDROcodone Bitartrate/Apap 5/325 Tablet PO (12:07)
[2020-12-13 12:40] LABS: Bedside Glucose 402 mg/dL (70-110)
[2020-12-13] MEDS: Insulin Lispro 100 UNIT/ML INSULN.PEN 24 UNIT SC ×2 (13:52→17:29)
[2020-12-13 14:06] LABS: Bedside Glucose 312 mg/dL (70-110)
[2020-12-13] MEDS: Heparin Injection (Vial) 5,000 UNIT/ML VIAL 5000 UNIT SC ×2 (15:16→21:26)
[2020-12-13 16:01] LABS: Bedside Glucose 334 mg/dL (70-110)
[2020-12-13 17:35] LABS: Bedside Glucose 142 mg/dL (70-110)
[2020-12-13] MEDS: Furosemide 20 MG Tablet PO (18:41)
[2020-12-13] MEDS: Fluticasone 0.05% 1 SPRAY NASAL.SRY 2 SPRAY NASAL (21:26)
[2020-12-13] MEDS: levETIRAcetam 500 MG Tablet PO (21:26)
[2020-12-13] MEDS: Simvastatin 20 MG Tablet 40 MG PO (21:26)
[2020-12-13] MEDS: Memantine Hydrochloride 5 MG Tablet PO (21:26)
[2020-12-13 22:15] LABS: Bedside Glucose 134 mg/dL (70-110)
[2020-12-14] VITALS (9 sets, daily range): BP systolic 99–132; BP diastolic 57–68; PULSE 69–88; RESP 16; TEMP 36.4–36.5; O2SAT 98–100
[2020-12-14] MEDS: Insulin Lispro 100 UNIT/ML INSULN.PEN SC ×4 (02:23→11:36)
[2020-12-14 02:30] LABS: Bedside Glucose 205 mg/dL (70-110)
[2020-12-14] MEDS: Levothyroxine 50 MCG Tablet PO (05:56)
[2020-12-14] MEDS: Heparin Injection (Vial) 5,000 UNIT/ML VIAL 5000 UNIT SC (05:57)
[2020-12-14 06:56] LABS: Absolute Lymphocyte Count 2.09 X10^3/uL (0.83-4.51); Absolute Neutrophil Count 5.9 X10^3/uL (2.0-7.7); Basophil# 0.08 X10^3/uL; Basophil% 0.9 % (0-1); Eosinophil# 0.23 X10^3/uL; Eosinophils% 2.6 % (0-5); Hematocrit 38.8 % (37-47); Lymphocyte # 2.09 X10^3/ul (4.0); Lymphocyte % 23.4 % (19-41); Mean Corp Hgb Conc 30.9 g/dL (32-36); Mean Corpuscular Hgb 25.8 pg (27.0-32.0); Mean Corpuscular Volume 83.4 fL (81-99); Monocyte# 0.59 X10^3/uL; Monocyte% 6.6 % (0-10); NRBC Flagged by Analyzer 0 % (0-5); Neutrophil # 5.89 X10^3/uL (2.7-7.7); Neutrophil % 66.1 % (47-70); Platelet Count 204 K/mm3 (150-450); RBC Distribution Width CV 15.8 % (11.6-14.6); RBC Distribution Width SD 47.4 fl (35.1-43.9); Red Blood Count 4.65 M/mm3 (4.2-5.4); White Blood Count 8.9 K/mm3 (4.4-11.0)
[2020-12-14 07:06] LABS: Bedside Glucose 240 mg/dL (70-110)
[2020-12-14 07:20] LABS: Anion Gap 5 (5-15); BUN 28 mg/dL (7-18); BUN/Creat Ratio 21.2 RATIO (10-20); Calcium,Total 8.9 mg/dL (8.5-10.1); Chloride 106 mmol/L (98-107); Creatinine, Serum 1.32 mg/dL (0.55-1.02); EST Glomerular Filtration Rate 41 mL/min (>60); Est Glom Filt Rate - Afr Amer 50 mL/min (>60); Estimated Creatinine Clearance 33.41 ml/min; Glucose 244 mg/dL (74-106); Potassium 4.1 mmol/L (3.5-5.1); Sodium Level 140 mmol/L (136-145)
[2020-12-14] MEDS: Insulin Lispro 100 UNIT/ML INSULN.PEN 24 UNIT SC ×2 (09:12→11:36)
[2020-12-14 09:20] LABS: Bedside Glucose 255 mg/dL (70-110)
--- NOTE | 2020-12-14 09:29 | PCM.PROGNOTE ---
Patient Problems: Active and Suspected Problems (Last Updated 12/13/20 @ 10:[address] Maurizio Brannon MD) Hyperglycemia (Acute) Metabolic encephalopathy (Acute) Subjective: Chief complaint: Follow-up after admission for hypertensive urgency, hyperglycemia and encephalopathy. Patient seen and examined. No acute events overnight. Today, patient is more alert, talking fluently and answering questions appropriately. She complained of left knee pain which is chronic, no new complaints. Her vital signs are stable. - Physical Exam Vitals/I&O's: Vital Signs Temp Pulse Resp BP Pulse Ox 97.5 F L 69 16 132/68 H 98 12/14/20 09:02 12/14/20 09:02 12/14/20 09:02 12/14/20 09:02 12/14/20 09:02 Oxygen Flow Rate (L/min) 2 Oxygen Delivery Method Nasal Cannula Weight: 225 lb 1.471 oz Body Mass Index (BMI) 35.3 Finger Stick Blood Glucose 472 Intake and Output for Last 24 Hours 12/12/20 12/13/20 12/14/20 23:59 23:59 23:59 Intake Total 480 / 600 180 / 180 Output Total 1450 / 1650 1100 / 1100 Balance -970 / -1050 -920 / -920 General: Alert, Cooperative, No apparent distress, Well developed HEENT: Atraumatic, PERRLA, EOMI, Normocephalic Oral: Moist Mucosa, No Gingival or Mucosal Lesions/ Ulcerations Neck: Supple, No JVD, Negative Carotid Bruits, Trachea Midline, Thyroid Normal Size and Texture Lungs: Clear to auscultation, No rhonchi, No wheeze, No rales Cardiovascular: Regular rate, Regular Rhythm, Normal S1, Normal S2, PMI Normal Abdomen: Bowel Sounds Present, Soft, Non Tender, Non-Distended, No Hepato-splenomegaly, Obese Extremities: No clubbing, No cyanosis, Edema Skin: No rashes, No breakdown Lymphatic: No Cervical, Supraclavicular, or Inguinal Adenopathy Neurological: Cranial nerves II-XII grossly intact, Neuro grossly intact Psych/Mental Status: Normal Affect, Appropriate Microbiology Past 72 Hours 12/13/20 07:41 Mucosa - Nose SARS-CoV-2 Antigen (Rapid) - Final Laboratory Results 12/13/20 11:18: POC Glucose 402 H 12/13/20 13:49: POC Glucose 312 H 12/13/20 15:14: POC Glucose 334 H 12/13/20 17:15: POC Glucose 142 H 12/13/20 21:21: POC Glucose 134 H 12/14/20 02:22: POC Glucose 205 H 12/14/20 05:53: POC Glucose 240 H 12/14/20 06:20: WBC 8.9, RBC 4.65, Hgb 12.0, Hct 38.8, MCV 83.4, MCH 25.8 L, MCHC 30.9 L, RDW Std Deviation 47.4 H, RDW Coeff of Candace 15.8 H, Plt Count 204, MPV 13.0 H, Immature Gran % (Auto) 0.400, Neut % (Auto) 66.1, Lymph % (Auto) 23.4, Lander % (Auto) 6.6, Eos % (Auto) 2.6, Baso % (Auto) 0.9, Absolute Neuts (auto) 5.9, Absolute Lymphs (auto) 2.09, Nucleated RBC % 0 12/14/20 06:20: Sodium 140, Potassium 4.1, Chloride 106, Carbon Dioxide 29.0, Anion Gap 5, BUN 28 H, Creatinine 1.32 H, Estim Creat Clear Calc 33.41, Est GFR (MDRD) Af Amer 50 L, Est GFR (MDRD) Non-Af 41 L, BUN/Creatinine Ratio 21.2 H, Glucose 244 H, Calcium 8.9 12/14/20 09:11: POC Glucose 255 H Current Medications Acetaminophen (Acetaminophen 325 Mg Tablet) 650 mg PO Q6H PRN PRN PRN Reason: Pain Score 1-10/Temp > 100.7 F Hydrocodone Bitart/Acetaminophen (Hydrocodone Bitartrate/Apap 5/325 Tablet) 1 tablet PO DAILY PRN PRN Reason: Pain Score 1-10 Last Admin: 12/13/20 12:07 Dose: 1 tablet Documented by: Duloxetine HCl (Duloxetine Hcl 30 Mg Capsule) 30 mg PO DAILY [facility] Fluticasone Propionate (Fluticasone 0.05% 1 [place] Nasal.Sry) 2 spray NASAL BID [facility] Last Admin: 12/13/20 21:26 Dose: 2 spray Documented by: Furosemide (Furosemide 20 Mg Tablet) 20 mg PO BIDLX [facility] Last Admin: 12/13/20 18:41 Dose: 20 mg Documented by: Heparin Sodium (Porcine) (Heparin Injection (Vial) 5,000 Unit/Ml Vial) 5,000 unit SC Q8 [facility] Last Admin: 12/14/20 05:57 Dose: 5,000 unit Documented by: Hydralazine HCl (Hydralazine 20 Mg/Ml Vial) 10 mg IV Q6H PRN PRN PRN Reason: for SBP>160 Insulin Glargine (Insulin Glargine 100 Units/Ml Pen) 75 units SC DAILY [facility] Last Admin: 12/14/20 09:13 Dose: 75 units Documented by: Insulin Human Lispro (Insulin Lispro 100 Unit/Ml Insuln.Pen) 0 unit SC Q4 [facility]; Protocol Last Admin: 12/14/20 09:12 Dose: 4 u Documented by: Insulin Human Lispro (Insulin Lispro 100 Unit/Ml Insuln.Pen) 24 unit SC TIDCM [facility] Last Admin: 12/14/20 09:12 Dose: 24 u Documented by: Isosorbide Mononitrate (Isosorbide Mononitrate 30 Mg Tablet) 90 mg PO DAILY [facility] Levetiracetam (Levetiracetam 500 Mg Tablet) 500 mg PO BID [facility] Last Admin: 12/13/20 21:26 Dose: 500 mg Documented by: Levothyroxine Sodium (Levothyroxine 50 Mcg Tablet) 50 mcg PO DAILY@0600 [facility] Last Admin: 12/14/20 05:56 Dose: 50 mcg Documented by: Lisinopril (Lisinopril 10 Mg Tablet) 10 mg PO DAILY [facility] Loratadine (Loratadine 10 Mg Tablet) 10 mg PO DAILY PRN PRN Reason: ALLERGIES Magnesium Hydroxide (Magnesium Hydroxide 30 Ml Udc) 30 ml PO DAILY PRN PRN PRN Reason: Constipation Memantine (Memantine Hydrochloride 5 Mg Tablet) 5 mg PO BID [facility] Last Admin: 12/13/20 21:26 Dose: 5 mg Documented by: Metoprolol Succinate (Metoprolol(Xl)Succ 50 Mg Tablet) 50 mg PO DAILY [facility] Ondansetron HCl (Ondansetron 4 Mg/2 Ml Vial) 4 mg IV Q8H PRN PRN PRN Reason: NAUSEA/VOMITING Pantoprazole Sodium (Pantoprazole Sodium 20 Mg Tablet) 20 mg PO DAILY [facility] Prasugrel (Prasugrel Hydrochloride 10 Mg Tablet) 10 mg PO DAILY [facility] Simvastatin (Simvastatin 20 Mg Tablet) 40 mg PO QHS [facility] Last Admin: 12/13/20 21:26 Dose: 40 mg Documented by: Zolpidem Tartrate (Zolpidem Tartrate 5 Mg Tablet) 5 mg PO QHS PRN PRN PRN Reason: INSOMNIA Medical Necessity - Tobacco Use Smoking Status: Never smoker Assessment/Plan All Active Problems (Last Updated 12/13/20 @ 10:[address] Maurizio Brannon MD) Debility (Acute) Hyperglycemia (Acute) Metabolic encephalopathy (Acute) This is a 75 years old female patient presented to the emergency room because of fall and change in mental status in the setting of chronic dementia and noncompliance, found to have hypertensive emergency and hyperglycemia without DKA and she is being admitted for treatment and she will need placement to fpc facility. #1 hypertensive urgency: Due to noncompliance secondary to dementia and forgetfulness. Blood pressure today is significantly improved, back to normal. She is on Lasix, isosorbide mononitrate, lisinopril and metoprolol as well as IV Thorazine as needed. EKG revealed A. fib, no acute ischemic changes. Troponin was negative. CT scan brain showed no acute findings. Plan to continue same treatment, awaiting placement to fpc facility. #2 hyperglycemia/uncontrolled type 2 diabetes mellitus: Without history of DKA. She is back on her home doses of Lantus and premeal Humalog 3 times daily as well as sliding scale. Blood sugars under much better control, it is down to around 200s. Patient is tolerating diet. Her hemoglobin A1c was 11.2% on Feb, 2020. Plan to change Accu-Cheks to before meals at bedtime as well as sliding scale. #3 encephalopathy: With baseline dementia. Today, she is more alert and speaking appropriately. CT scan brain showed no acute findings. #4 debility/functional decline/noncompliance: Patient has been forgetful, not taking her medication at home. She lives alone. Plan for PT OT evaluation and treatment, patient will need placement to fpc facility. #5 chronic diastolic CHF: No evidence of acute exacerbation. Chest x-ray reviewed. Continue on p.o. Lasix, continue isosorbide mononitrate, lisinopril and metoprolol. #6 chronic atrial fibrillation: Heart rate stable, continue metoprolol for rate control. She is not on anticoagulation. #7 CAD status post stents: Stable, EKG reviewed, was unremarkable. Troponin was negative. Patient denied any chest pain. Continue prasugrel, statins, metoprolol, lisinopril and isosorbide mononitrate. #8 sick sinus syndrome status post pacemaker: Heart rate stable as mentioned above. #9 stage III chronic kidney disease: Baseline creatinine has been around 1.2 to 1.6 mg/dL. Admission creatinine is 1.42, today's creatinine is 1.32, stable at baseline. #10 hypertension: Blood pressure significant improved, continue current medications as above. #12 type 2 diabetes mellitus: Blood sugars under better control. Plan as above. #13 hypothyroidism: TSH was normal, continue levothyroxine. #14 seizure disorder: Stable, continue Keppra twice daily. #15 dementia: Continue memantine. #16 DVT prophylaxis: Subcu heparin. This note was generated with [employer] dictation software. It may contain incorrect words, spelling, and punctuation that were not noted in checking the note before signing. Inpatient E&M: 38883 Subs Hosp L2
[2020-12-14] MEDS: DULoxetine Hcl 30 MG Capsule PO (10:52)
[2020-12-14] MEDS: Fluticasone 0.05% 1 SPRAY NASAL.SRY 2 SPRAY NASAL (10:52)
[2020-12-14] MEDS: levETIRAcetam 500 MG Tablet PO (10:53)
[2020-12-14] MEDS: Isosorbide Mononitrate 30 MG Tablet 90 MG PO (10:53)
[2020-12-14] MEDS: Pantoprazole Sodium 20 MG Tablet PO (10:54)
[2020-12-14] MEDS: Furosemide 20 MG Tablet PO (10:54)
[2020-12-14] MEDS: Memantine Hydrochloride 5 MG Tablet PO (10:54)
[2020-12-14] MEDS: Metoprolol(XL)Succ 50 MG Tablet PO (10:54)
[2020-12-14] MEDS: Lisinopril 10 MG Tablet PO (10:55)
[2020-12-14 11:40] LABS: Bedside Glucose 313 mg/dL (70-110)
--- NOTE | 2020-12-14 12:07 | CASEMGMT ---
SW met with patient, introduced self and role at [facility]. SW asked her about her discharge plan. She agrees she needs to go to a alf. She thinks she might even stay at the facility mcfp. She wants to stay in [place]. SW gave patient a list of SNF providers including quality and resource use data and consistent with the patient?s preferred geographic region, medical needs, and insurance network. She was not sure where to go. She wanted to stay in [place] and go somewhere that she can stay mcfp if she chooses to do so. MINAL told her SW will call the 3 facilities in [place] that take her insurance and see if any of them that have mcfp beds. 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 MINAL called [facility] and they have mcfp beds. MINAL called [facility] and they have mcfp beds. SW left a message for [facility]. MINAL faxed referrals to [facility] and [facility]. Await responses. Tonja SAVAGE [employer] MANAGER
--- NOTE | 2020-12-14 13:18 | CASEMGMT ---
SW received a return call from [facility] and they do have half-way beds. SW told her SW will fax her referral and also told her SW sent referrals to a couple other places. SW received a call from [facility] and she said they can take patient if she would like to come there. MINAL will see what [facility] and [facility] say. Tonja ROJAS
--- NOTE | 2020-12-14 14:37 | CASEMGMT ---
MINAL spoke with Eduarda at [facility] and they can also accept patient. SW still has not heard back from [facility]. SW met with patient and let her know what SW has found out so far. She seemed a little confused and said she doesn't know what she is doing. SW asked if it was okay for SW to call her daughter. She said it is fine and asked that SW call [facility]. SW called Cinthia and let her know patient is having some troubles deciding on where to go at discharge. MINAL told her we were able to narrow it down to 3 facilities, [facility], [place], and [facility]. She preferred [facility]. SW called Pri[facility] and let her know. SW also let her know she may come today, but SW will let her know. SW also called [facility] and left a voice mail letting her know patient chose another facility. SW also called Eduarda at [facility] and let her know. Physician was notified patient can be discharged today. Plan: [facility]. Tonja ROJAS
--- NOTE | 2020-12-14 14:40 | PCM.TXEXTCAR ---
- Diet 12/13/20 10:19 Diet: Cardiac: Calorie-Controlled Food consistency:: Regular Liquid Consistency:: Regular/Thin How many daily calories?: 1800 calorie - Suggestions for Active Care Change Position every (hours): 3 Hours to sit in a chair: 2 Times a day to sit in chair: 3 - Therapies Weight Bearing: Weight bearing as tolerated Physical Therapy: Eval and Treat Occupational Therapy: Eval and Treat - Problem/Diagnosis (1) Noncompliance Status: Chronic (2) Hyperglycemia Status: Acute (3) Metabolic encephalopathy Status: Acute (4) Sick sinus syndrome Status: Chronic (5) Atherosclerosis of coronary artery without angina pectoris Status: Chronic (6) History of coronary artery stent placement Status: Chronic Comment: [id number] LAD w/ 3.5 x 12 mm Taxus Express 10/23/2004; [id number] Inferolateral Marginal Branch w/ 3.0 x 9 mm Joaquin Stent 01/25/2011 @ [facility] (7) Chronic diastolic (congestive) heart failure Status: Chronic (8) Essential (primary) hypertension Status: Chronic (9) Hyperlipidemia Status: Chronic (10) Bone cancer Status: Chronic - Allergies/Procedures Done in Hospital Allergies/Adverse Reactions: Allergies atorvastatin calcium [From Lipitor] Allergy (Verified 12/13/20 07:21) dont remember codeine Allergy (Verified 12/13/20 07:21) Rash iodine Allergy (Verified 12/13/20 07:21) Rash Latex, Natural Rubber Allergy (Verified 12/13/20 07:21) Rash lovastatin Allergy (Verified 12/13/20 07:21) Rash rosuvastatin calcium [From Crestor] Allergy (Verified 12/13/20 07:21) rash\ naproxen [From Naprosyn] Adverse Reaction (Verified 12/13/20 07:21) Upset Stomach pregabalin [From Lyrica] Adverse Reaction (Verified 12/13/20 07:21) Upset Stomach Sulfa (Sulfonamide Antibiotics) Adverse Reaction (Verified 12/13/20 07:21) Upset Stomach - Type of Care/Length of Stay Estimated LOS: Convalescent Care Less Than 30 days Type of Care Needed: Skilled Rehab Potential: Fair Prognosis: Fair - Additional Orders/Day of Discharge H&P will serve as current which was dated: 12/13/20 Day of Discharge: 12/14/20 - Dietary and Speech Recommendations Dietitian Recommendations/Changes: will adjust diet to 1800 calories, cardiac diet; will monitor PO intake and adjust diet/add ONS as indicated. - Follow Up Care Primary Care Physician: Emerita Gottlieb MD [Primary Care Provider] - Please follow up with your Primary Care Physician in: 1 week.
--- NOTE | 2020-12-14 14:42 | DS.PCM_ITS ---
Discharge Date and Diagnosis - Problem List Patient Problems: Active and Suspected Problems (Last Updated 12/13/20 @ 10:[address] Maurizio Brannon MD) Hyperglycemia (Acute) Metabolic encephalopathy (Acute) Date of Admission: 12/13/20 Date of Discharge: 12/14/20 - Primary Discharge Diagnosis Acute Problems: Active Problems (Last Updated 12/13/20 @ 10:[address] Maurizio Brannon MD) #1 hypertensive urgency. #2 hyperglycemia/uncontrolled type 2 diabetes mellitus. #3 encephalopathy with baseline dementia, improved. #4 noncompliance. #5 physical debility/functional decline. - Secondary Discharge Diagnosis Chronic Problems: Chronic Problems (Last Updated 12/13/20 @ 10:[address] Maurizio Brannon MD) Noncompliance (Chronic) History of permanent cardiac pacemaker placement (Chronic 03/05/17) Sick sinus syndrome (Chronic) Longstanding persistent atrial fibrillation (Chronic) Atherosclerosis of coronary artery without angina pectoris (Chronic) History of coronary artery stent placement (Chronic 01/25/11) GYH-ASC-Ugbz LAD w/ 3.5 x 12 mm Taxus Express 10/23/2004; WTA-DVI-Xmes Inferolateral Marginal Branch w/ 3.0 x 9 mm [place] Stent 01/25/2011 @ [facility] Right bundle branch block (RBBB) (Chronic) Chronic diastolic (congestive) heart failure (Chronic) Nonrheumatic aortic (valve) stenosis (Chronic) Essential (primary) hypertension (Chronic) Hyperlipidemia (Chronic) Bone cancer (Chronic) Hospital Course and Treatment Imaging Results: Clinical Impression(s) from Imaging Studies Brain CT 12/13/20 07:29 IMPRESSION: Chronic involutional changes of the brain. Electronically Signed: Santiago Kwok MD at 8:31 EST , Service support , Chest X-Ray 12/13/20 07:30 IMPRESSION: Mild degree of vascular congestion. Cardiomegaly. Electronically Signed: Santiago Kwok MD at 8:27 EST , Service support , Cervical Spine CT 12/13/20 07:32 IMPRESSION: Multilevel degenerative changes, as described above. Stable examination. Electronically Signed: Santiago Kwok MD at 8:34 EST , Service support , Operations: None Procedures: None Summary of Care Provided: Patient seen and examined on the day of discharge and appeared to be stable to be discharged to alf facility. She has no significant complaints her vital signs were stable. The patient is a 75 year old F presented to the emergency room because of fall and change in mental status in the setting of chronic dementia and noncompliance. She was found to have hypertensive urgency and hyperglycemia without evidence of DKA. Patient was forgetful and not taking her medications appropriately. On admission, her blood pressure was high elevated, systolic was more than 180. Her blood sugar was 498 mg/dL. There was no evidence of endorgan damage or evidence of DKA. Those are attributed to not taking her medications appropriately because of forgetfulness secondary to dementia. CT scan brain showed no acute findings. Patient does have history of baseline dementia. Her routine blood work was remarkable for chronic kidney disease and her BUN and creatinine were stable at baseline. Chest x-ray showed no acute findings. CT scan cervical spine showed no acute fractures dislocations. Patient lives alone at home and she has not been able to take care of herself or taking her medication appropriately. She was started back on her home medications including insulin and blood pressure medications, treated with IV Thorazine as needed as well as sliding scale. She did improve very quickly significantly, her pressure improved as well as blood sugar. PT OT evaluated the patient and patient was appropriate for placement to alf facility. Patient discharged to SNF in a stable condition, discharged on her same previous medications without any changes including insulin and ant ihypertensives, recommended follow-up with PCP in 1 week. Patient Problems: Active and Suspected Problems (Last Updated 12/13/20 @ 10:[address] Maurizio Brannon MD) Hyperglycemia (Acute) Metabolic encephalopathy (Acute) - Physical Exam Vitals/I&O's: Vital Signs Temp Pulse Resp BP Pulse Ox 97.5 F L 82 16 132/68 H 98 12/14/20 09:02 12/14/20 11:30 12/14/20 09:02 12/14/20 09:02 12/14/20 09:02 Oxygen Flow Rate (L/min) 2 Oxygen Delivery Method Nasal Cannula Weight: 225 lb 1.471 oz Body Mass Index (BMI) 35.3 Finger Stick Blood Glucose 472 Intake and Output for Last 24 Hours 12/12/20 12/13/20 12/14/20 23:59 23:59 23:59 Intake Total 480 / 600 180 / 180 Output Total 1450 / 1650 1100 / 1100 Balance -970 / -1050 -920 / -920 General: Alert, Cooperative, No apparent distress, Well developed HEENT: Atraumatic, PERRLA, EOMI, Normocephalic Oral: Moist Mucosa, No Gingival or Mucosal Lesions/ Ulcerations Neck: Supple, No JVD, Negative Carotid Bruits, Trachea Midline, Thyroid Normal Size and Texture Lungs: Clear to auscultation, No rhonchi, No wheeze, No rales Cardiovascular: Normal S1, Normal S2, No Ectopic Activity, PMI Normal, Irregular Rate Abdomen: Bowel Sounds Present, Soft, Non Tender, Non-Distended, No Hepato- splenomegaly, Obese Extremities: No clubbing, No cyanosis, Edema Skin: No rashes, No breakdown Lymphatic: No Cervical, Supraclavicular, or Inguinal Adenopathy Neurological: Cranial nerves II-XII grossly intact, Neuro grossly intact Psych/Mental Status: Normal Affect, Appropriate Microbiology Past 72 Hours 12/13/20 07:41 Mucosa - Nose SARS-CoV-2 Antigen (Rapid) - Final Laboratory Results 12/13/20 15:14: POC Glucose 334 H 12/13/20 17:15: POC Glucose 142 H 12/13/20 21:21: POC Glucose 134 H 12/14/20 02:22: POC Glucose 205 H 12/14/20 05:53: POC Glucose 240 H 12/14/20 06:20: WBC 8.9, RBC 4.65, Hgb 12.0, Hct 38.8, MCV 83.4, MCH 25.8 L, MCHC 30.9 L, RDW Std Deviation 47.4 H, RDW Coeff of Candace 15.8 H, Plt Count 204, MPV 13.0 H, Immature Gran % (Auto) 0.400, Neut % (Auto) 66.1, Lymph % (Auto) 23.4, [place] % (Auto) 6.6, Eos % (Auto) 2.6, Baso % (Auto) 0.9, Absolute Neuts (auto) 5.9, Absolute Lymphs (auto) 2.09, Nucleated RBC % 0 12/14/20 06:20: Sodium 140, Potassium 4.1, Chloride 106, Carbon Dioxide 29.0, Anion Gap 5, BUN 28 H, Creatinine 1.32 H, Estim Creat Clear Calc 33.41, Est GFR (MDRD) Af Amer 50 L, Est GFR (MDRD) Non-Af 41 L, BUN/Creatinine Ratio 21.2 H, Gl ucose 244 H, Calcium 8.9 12/14/20 09:11: POC Glucose 255 H 12/14/20 11:36: POC Glucose 313 H Current Medications Acetaminophen (Acetaminophen 325 Mg Tablet) 650 mg PO Q6H PRN PRN PRN Reason: Pain Score 1-10/Temp > 100.7 F Hydrocodone Bitart/Acetaminophen (Hydrocodone Bitartrate/Apap 5/325 Tablet) 1 tablet PO DAILY PRN PRN Reason: Pain Score 1-10 Last Admin: 12/13/20 12:07 Dose: 1 tablet Documented by: Duloxetine HCl (Duloxetine Hcl 30 Mg Capsule) 30 mg PO DAILY [facility] Last Admin: 12/14/20 10:52 Dose: 30 mg Documented by: Fluticasone Propionate (Fluticasone 0.05% 1 [place] Nasal.Sry) 2 spray NASAL BID [facility] Last Admin: 12/14/20 10:52 Dose: 2 spray Documented by: Furosemide (Furosemide 20 Mg Tablet) 20 mg PO BIDLX [facility] Last Admin: 12/14/20 10:54 Dose: 20 mg Documented by: Heparin Sodium (Porcine) (Heparin Injection (Vial) 5,000 Unit/Ml Vial) 5,000 unit SC Q8 [facility] Last Admin: 12/14/20 05:57 Dose: 5,000 unit Documented by: Hydralazine HCl (Hydralazine 20 Mg/Ml Vial) 10 mg IV Q6H PRN PRN PRN Reason: for SBP>160 Insulin Glargine (Insulin Glargine 100 Units/Ml Pen) 75 units SC DAILY [facility] Last Admin: 12/14/20 09:13 Dose: 75 units Documented by: Insulin Human Lispro (Insulin Lispro 100 Unit/Ml Insuln.Pen) 24 unit SC TIDCM [facility] Last Admin: 12/14/20 11:36 Dose: 24 u Documented by: Insulin Human Lispro (Insulin Lispro 100 Unit/Ml Insuln.Pen) 0 unit SC ACHS [facility]; Protocol Last Admin: 12/14/20 11:36 Dose: 6 units Documented by: Isosorbide Mononitrate (Isosorbide Mononitrate 30 Mg Tablet) 90 mg PO DAILY [facility] Last Admin: 12/14/20 10:53 Dose: 90 mg Documented by: Levetiracetam (Levetiracetam 500 Mg Tablet) 500 mg PO BID [facility] Last Admin: 12/14/20 10:53 Dose: 500 mg Documented by: Levothyroxine Sodium (Levothyroxine 50 Mcg Tablet) 50 mcg PO DAILY@0600 [facility] Last Admin: 12/14/20 05:56 Dose: 50 mcg Documented by: Lisinopril (Lisinopril 10 Mg Tablet) 10 mg PO DAILY [facility] Last Admin: 12/14/20 10:55 Dose: 10 mg Documented by: Loratadine (Loratadine 10 Mg Tablet) 10 mg PO DAILY PRN PRN Reason: ALLERGIES Magnesium Hydroxide (Magnesium Hydroxide 30 Ml Udc) 30 ml PO DAILY PRN PRN PRN Reason: Constipation Memantine (Memantine Hydrochloride 5 Mg Tablet) 5 mg PO BID [facility] Last Admin: 12/14/20 10:54 Dose: 5 mg Documented by: Metoprolol Succinate (Metoprolol(Xl)Succ 50 Mg Tablet) 50 mg PO DAILY [facility] Last Admin: 12/14/20 10:54 Dose: 50 mg Documented by: Ondansetron HCl (Ondansetron 4 Mg/2 Ml Vial) 4 mg IV Q8H PRN PRN PRN Reason: NAUSEA/VOMITING Pantoprazole Sodium (Pantoprazole Sodium 20 Mg Tablet) 20 mg PO DAILY [facility] Last Admin: 12/14/20 10:54 Dose: 20 mg Documented by: Prasugrel (Prasugrel Hydrochloride 10 Mg Tablet) 10 mg PO DAILY [facility] Last Admin: 12/14/20 10:52 Dose: 10 mg Documented by: Simvastatin (Simvastatin 20 Mg Tablet) 40 mg PO QHS [facility] Last Admin: 12/13/20 21:26 Dose: 40 mg Documented by: Zolpidem Tartrate (Zolpidem Tartrate 5 Mg Tablet) 5 mg PO QHS PRN PRN PRN Reason: INSOMNIA Home Medications: Medications to take at Discharge Metoprolol Succinate [Toprol Xl] 50 mg PO DAILY 10/11/17 Prasugrel HCl 10 mg PO DAILY 06/04/18 Simvastatin [Zocor] 40 mg PO QHS 06/04/18 Cetirizine HCl [Zyrtec] 10 mg PO DAILY PRN 11/18/18 Duloxetine HCl 30 mg PO DAILY 11/18/18 Isosorbide Mononitrate [Imdur] 90 mg PO DAILY 02/29/20 Levothyroxine [Synthroid] 50 mcg PO DAILY 02/29/20 Memantine HCl [Memantine HCl ER] 14 mg PO DAILY 02/29/20 furosemide 20 mg tablet 20 mg PO BID tab 04/19/20 levetiracetam 500 mg tablet 500 mg PO BID tab 04/19/20 lisinopril 10 mg tablet 10 mg PO DAILY tab 04/19/20 Omeprazole [Prilosec] 20 mg PO DAILY 05/18/20 Sennosides/Docusate Sodium [Senexon-S 50-8.6 mg Tablet] 1 tab PO DAILY 05/18/20 Acetaminophen [Tylenol Tablet] 650 mg PO Q6H PRN PRN tab 05/22/20 Bisacodyl [Dulcolax] 5 mg PO DAILY PRN PRN tab 05/22/20 Insulin Lispro [Humalog KwikPen] See Protocol SUBCUT ACHS insuln.pen 05/22/20 Magnesium Hydroxide [Milk Of Magnesia] 30 ml PO DAILY PRN PRN udc 05/22/20 Nystatin Powder [Mycostatin Powder] 1 applic TOPICAL TID PRN 10/21/20 Fluticasone 0.05% [Flonase Nasal [place]] 2 spray NARES BID 12/13/20 Hydrocodone/Acetaminophen [Hydrocodone-Acetamin 5-325 mg] 1 ea PO DAILY PRN 12/13/20 Insulin Glargine [Lantus SoloStar Pen] 75 units SC DAILY 12/13/20 Insulin Lispro [Humalog KwikPen] 24 unit SC TID 12/13/20 Ketorolac Tromethamine 1 drop OP 4X/DAY 12/13/20 Nitroglycerin (INPATIENT USE) [Nitrostat] 0.4 mg SUBLINGUAL X1 12/13/20 Polyethylene Glycol 3350 [Miralax] 17 gm PO DAILY 12/13/20 Prednisolone Acetate [Pred Forte] 1 drp OP 4X/DAY 12/13/20 Primary Care Physician: Emerita Gottlieb MD [Primary Care Provider] - Please follow up with your Primary Care Physician in: 1 week. Disposition: [facility] facility Minutes spent on discharge:: 32 Patient Condition:: Stable Medical Necessity - Tobacco Use Smoking Status: Never smoker Meaningful Use Info Meaningful Use Diagnoses (Choose all that apply): None applicable Inpatient E&M: 63744 Disch Hosp
--- NOTE | 2020-12-14 15:19 | PHA.DC.MR ---
Pharmacy Service has performed discharge medication reconciliation for this patient upon transfer to [facility]. Home Medications Metoprolol Succinate [Toprol Xl] 50 mg PO DAILY 10/11/17 Prasugrel HCl 10 mg PO DAILY 06/04/18 Simvastatin [Zocor] 40 mg PO QHS 06/04/18 Cetirizine HCl [Zyrtec] 10 mg PO DAILY PRN 11/18/18 Duloxetine HCl 30 mg PO DAILY 11/18/18 Isosorbide Mononitrate [Imdur] 90 mg PO DAILY 02/29/20 Levothyroxine [Synthroid] 50 mcg PO DAILY 02/29/20 Memantine HCl [Memantine HCl ER] 14 mg PO DAILY 02/29/20 furosemide 20 mg tablet 20 mg PO BID tab 04/19/20 levetiracetam 500 mg tablet 500 mg PO BID tab 04/19/20 lisinopril 10 mg tablet 10 mg PO DAILY tab 04/19/20 Omeprazole [Prilosec] 20 mg PO DAILY 05/18/20 Sennosides/Docusate Sodium [Senexon-S 50-8.6 mg Tablet] 1 tab PO DAILY 05/18/20 Acetaminophen [Tylenol Tablet] 650 mg PO Q6H PRN PRN tab 05/22/20 Bisacodyl [Dulcolax] 5 mg PO DAILY PRN PRN tab 05/22/20 Insulin Lispro [Humalog KwikPen] See Protocol SUBCUT ACHS insuln.pen 05/22/20 Magnesium Hydroxide [Milk Of Magnesia] 30 ml PO DAILY PRN PRN udc 05/22/20 Nystatin Powder [Mycostatin Powder] 1 applic TOPICAL TID PRN 10/21/20 Fluticasone 0.05% [Flonase Nasal [place]] 2 spray NARES BID 12/13/20 Hydrocodone/Acetaminophen [Hydrocodone-Acetamin 5-325 mg] 1 ea PO DAILY PRN 12/13/20 Insulin Glargine [Lantus SoloStar Pen] 75 units SC DAILY 12/13/20 Insulin Lispro [Humalog KwikPen] 24 unit SC TID 12/13/20 Ketorolac Tromethamine 1 drop OP 4X/DAY 12/13/20 Nitroglycerin (INPATIENT USE) [Nitrostat] 0.4 mg SUBLINGUAL X1 12/13/20 Polyethylene Glycol 3350 [Miralax] 17 gm PO DAILY 12/13/20 Prednisolone Acetate [Pred Forte] 1 drp OP 4X/DAY 12/13/20 The patient's discharge medication list was reviewed for discrepancies and discrepancies were resolved.
--- NOTE | 2020-12-14 15:24 | CASEMGMT ---
Physician is going to send patient today. SW called patient's daughter Cinthia and let her know patient is going to go today. She will be in to see patient in about 45 minutes. SW spoke with RN and let her know. Patient has become more confused since SW spoke with her so SW did not let her know. MINAL arranged for patient to gt picked up at 5p via cot due to confusion. PASRR was completed on [facility] as patient may stay alf. MINAL notified RN, pocket secretary assembler, and Priya at [facility] of package pick up time. Plan: d/c to [facility] under skilled level of care on a PASRR as she may stay caser. [facility] transported her via cot. Tonja SAVAGE MSW
--- NOTE | 2020-12-14 15:50 | CASEMGMT ---
MINAL spoke with Toshia Banda with [facility] and let her know patient is going to [facility] today. MINAL faxed her d/c orders for patient. Tonja SAVAGE MSW
--- NOTE | 2020-12-14 16:04 | NURSING ---
Report called to Tate at [facility].
== END 2020-12-14 17:08 | disposition skilled nursing facility (03) | DRG 304 ==
LOC: ED 09:12 → PCU 09:26
PROVIDERS: Admitting Provider Hospitalist; Emergency Provider Emergency Medicine; PCP Internal Medicine; Visit Provider Hospitalist
DX: I16.0 Hypertensive urgency (principal); G93.41 Metabolic encephalopathy; I50.32 Chronic diastolic (congestive) heart failure; I48.11 Longstanding persistent atrial fibrillation; E11.65 Type 2 diabetes mellitus with hyperglycemia; F03.90 Unspecified dementia, unspecified severity, without behavioral disturbance, psychotic disturbance, mood disturbance, and anxiety; R53.81 Other malaise; E66.9 Obesity, unspecified; Z91.14 Patient's other noncompliance with medication regimen; Z79.4 Long term (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 of insulin; Z79.899 Other long term (current) drug therapy; Z68.35 Body mass index [BMI] 35.0-35.9, adult; I25.10 Atherosclerotic heart disease of native coronary artery without angina pectoris; Z95.5 Presence of coronary angioplasty implant and graft; Z95.0 Presence of cardiac pacemaker; I13.0 Hypertensive heart and chronic kidney disease with heart failure and stage 1 through stage 4 chronic kidney disease, or unspecified chronic kidney disease; N18.32 Chronic kidney disease, stage 3b; E30.9 Disorder of puberty, unspecified; G40.909 Epilepsy, unspecified, not intractable, without status epilepticus
CPT/HCPCS: 36415; 51702; 70450; 71045; 72125; 80048; 80053; 81001; 82375; 82803; 82962; 84443; 84484; 85025; 85610; 85730; 87426; 93005; 94762; 97110; 97162; 97166; 97535; 99251; 99285; A4216; G0463; J1940

== ENCOUNTER 2021-01-06 02:22 | Observation (INO) | payer MEDICARE, MEDICAID, SELFPAY ==
[2021-01-05 10:19] VITALS: BMI 36.4
[2021-01-06] VITALS (14 sets, daily range): BP systolic 112–209; BP diastolic 59–92; PULSE 72–88; RESP 13–20; TEMP 35.8–36.6; O2SAT 94–100; BMI 36.6; BMI 35.1
--- NOTE | 2021-01-06 02:24 | EKG12_ITS ---
Test Reason : NEURO Blood Pressure : / mmHG Vent. Rate : 073 BPM Atrial Rate : 057 BPM P-R Int : 000 ms QRS Dur : 138 ms QT Int : 450 ms P-R-T Axes : 000 -40 -05 degrees QTc Int : 495 ms Atrial fibrillation Left axis deviation Right bundle branch block Abnormal ECG Confirmed by TAM GALINDO, LORRAINE ([id number]), map editor WILLIS HAWKINS ([id number]) on 01/08/2021 1:51:33 PM Referred By: BB Confirmed By:LORRAINE TURCIOS MD
--- NOTE | 2021-01-06 02:24 | RAD_ITS ---
STUDY: X-RAY CHEST REASON FOR EXAM: Female, 75 years old. Neuro deficit, acute, stroke suspected TECHNIQUE: Single AP portable view of the chest. COMPARISON: None. FINDINGS: Pacemaker is seen on the left side. The lungs are underexpanded. There is no demonstrated pleural abnormality. Normal size heart. Normal mediastinum and susan. Normal visualized pulmonary arteries. Normal visualized aortic arch and descending thoracic aorta. Normal visualized thoracic spine. There is degenerative osteoarthritis of the bilateral shoulders. There is no demonstrated abnormality of the visualized soft tissue structures of the upper abdomen. RAD/Chest 1 View IMPRESSION: Degenerative changes, as described above. No demonstrated acute cardiopulmonary process. Electronically Signed: Carmelo Herrera MD at 4:34 EDT Tel , Service support ,
--- NOTE | 2021-01-06 02:24 | CT_ITS ---
STUDY: CT HEAD STROKE PROTOCOL W/O CONTRAST INJECTION REASON FOR EXAM: Female, 75 years old. Neuro deficit, acute, stroke suspected TECHNIQUE: Transaxial CT imaging of the brain was performed without administration of intravenous contrast material. Individualized dose optimization techniques were used for this CT. COMPARISON: No relevant priors. FINDINGS: Normal soft tissue structures. Normal calvarium. There is mild cerebral atrophy with widening of the extra-axial spaces and ventricular dilatation. There are areas of decreased attenuation within the white matter tracts of the supratentorial brain, consistent with microvascular disease changes. Normal basal ganglia and thalami. Normal brainstem. Normal cerebellum. There is no intracranial hemorrhage. There are no findings of an acute ischemic infarction. Normal visualized paranasal sinuses. CT/STROKE Brain/Head without Cont IMPRESSION: Chronic involutional changes of the brain. N.B. : The above information has been verbally conveyed by Carmelo Herrera MD to Gaurang Curryone on 01/06/2021 02:47:53 (ET). Electronically Signed: Carmelo Herrera MD at 2:41 EDT Tel , Service support ,
--- NOTE | 2021-01-06 02:24 | CT_ITS ---
STUDY: CTA HEAD AND NECK WITH CONTRAST REASON FOR EXAM: Female, 75 years old. Neuro deficit, acute, stroke suspected RADIATION DOSAGE (If Supplied By Facility): CTDIvol = ( 28.85 ) mGy, DLP = ( 799.11 ) mGycm TECHNIQUE: CT angiography was performed with a multi-detector CT scanner. Data acquisition was obtained from the skull base through the vertex following intravenous administration of IV 100mL Isovue-370. MIP images were reconstructed from the axial data set. Post-processing of the angiographic images was performed, with multiplanar reformation and 3D reconstruction. Individualized dose optimization techniques were used for this CT. COMPARISON: No relevant priors. FINDINGS: Normal bilateral petrous carotid arteries. Normal right cavernous carotid artery with a normal supraclinoid bifurcation. Normal left cavernous carotid artery with a normal supraclinoid bifurcation. There is non-visualization of the right A1 segment of the anterior cerebral arteries consistent with either aplastic development or an occlusion. Normal left A1 segments of the anterior cerebral artery. Normal intact anterior communicating artery (ACOM). Normal bilateral A2 segments of the anterior cerebral arteries. Normal right M1 and M2 segments of the middle cerebral arteries, with a normal M1 bifurcation. Normal left M1 and M2 segments of the middle cerebral arteries, with a normal M1 bifurcation. There is a persistent origin of the right posterior cerebral artery with absence of the posterior communicating artery (PCOM). Normal left posterior communicating artery (PCOM). Normal bilateral vertebral arteries. Normal basilar artery with a normal basilar bifurcation. The visualized bilateral superior cerebellar (SCA) arteries are normal. Normal bilateral P1, P2 and visualized P3 segments of the posterior cerebral arteries. There is no demonstrated aneurysm of the [place] of [place]. There is no demonstrated abnormality of the visualized brain. AORTIC ARCH: Normal visualized aortic arch. Normal origins of the brachiocephalic, left common carotid, and left subclavian arteries. RIGHT CAROTID ARTERIES: Normal right common carotid artery (CCA). There is mild atherosclerotic plaque formation with minimal narrowing of the right carotid bulb. There is mild atherosclerotic plaque formation of the origin of the right internal carotid artery with less than 50% cross sectional diameter stenosis. Normal visualized cervical portion of the right internal carotid artery. Normal origin of the right external carotid artery (ECA). LEFT CAROTID ARTERIES: Normal left common carotid artery (CCA). There is mild atherosclerotic plaque formation with minimal narrowing of the left carotid bulb. There is mild atherosclerotic plaque formation of the origin of the left internal carotid artery with less than 50% cross sectional diameter stenosis. Normal visualized cervical portion of the left internal carotid artery. Normal origin of the left external carotid artery (ECA). VERTEBRAL ARTERIES: Normal bilateral vertebral arteries. CT/STROKE CTA Head AND Neck W/Con IMPRESSION: No significant stenosis of the cervical or intracranial arteries. N.B. : The above information has been verbally conveyed by Carmelo Herrera MD to Gaurang Edwards MD, on 01/06/2021 03:01:07 (ET). Electronically Signed: Carmelo Herrera MD at 3:01 EDT Tel , Service support ,
--- NOTE | 2021-01-06 02:25 | ED.DCSUM_ITS ---
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 She called for a nurse around 1 AM, saying that she was incontinent of urine which is unusual for her. Upon attending to her, staff discovered that she was weak in the left side, slurring her speech, and they became concerned. She was last seen normal at 8 PM, someone checked on her at 10 PM and she was sleeping. No apparent fall or injury. Patient is DNR-Comfort Care arrest. Her medication list from her last hospital encounter shows no anticoagulants. - Past Medical History (1) Debility Status: Chronic (2) Atherosclerosis of coronary artery without angina pectoris Status: Chronic (3) Bone cancer Status: Chronic (4) Chronic diastolic (congestive) heart failure Status: Chronic (5) Essential (primary) hypertension Status: Chronic (6) History of coronary artery stent placement Status: Chronic Comment: AOT-TZG-Xzyo LAD w/ 3.5 x 12 mm Taxus Express 10/23/2004; [id number] Inferolateral [place] w/ 3.0 x 9 mm Ruby Stent 01/25/2011 @ [facility] (7) Hyperlipidemia Status: Chronic (8) Longstanding persistent atrial fibrillation Status: Chronic (9) Moderate aortic stenosis Status: Chronic (10) Nonrheumatic aortic (valve) stenosis Status: Chronic (11) Sick sinus syndrome Status: Chronic Past Medical History - Allergies and Home Meds Allergies/Adverse Reactions: Allergies atorvastatin calcium [From Lipitor] Allergy (Verified 01/06/21 02:26) dont remember codeine Allergy (Verified 01/06/21 02:26) Rash iodine Allergy (Verified 01/06/21 02:26) Rash Latex, Natural Rubber Allergy (Verified 01/06/21 02:26) Rash lovastatin Allergy (Verified 01/06/21 02:26) Rash rosuvastatin calcium [From Crestor] Allergy (Verified 01/06/21 02:26) rash\ tositumomab Allergy (Verified 01/06/21 02:26) PT UNSURE OF REACTION naproxen [From Naprosyn] Adverse Reaction (Verified 01/06/21 02:26) Upset Stomach pregabalin [From Lyrica] Adverse Reaction (Verified 01/06/21 02:26) Upset Stomach Sulfa (Sulfonamide Antibiotics) Adverse Reaction (Verified 01/06/21 02:26) Upset Stomach Surgical History: hysterectomy, pacemaker implantation, - - PCI x2, thyroidectomy for goiter, left lower extremity surgery for bone cancer, pacemaker, hysterectomy. Smoking Status: Never smoker - Family History Maternal Family History: Family History (Last Reviewed 01/05/21 @ 10:36 by Jennifer Nolt) Other Cancer Family History: Reports: - - History of alcoholic cirrhosis Paternal Family History: Family History (Last Reviewed 01/05/21 @ 10:36 by Jennifer Nolt) Other Cancer Family History: Reports: Cancer - Her father had colon cancer. Sibling Family History: Family History (Last Reviewed 01/05/21 @ 10:36 by Jennifer Nolt) Other Cancer Family History: Reports: Cancer - Her sister had ovarian cancer., Hypertension Review of Systems ROS: Unable to Obtain - very limited due to lethargy and aphasia/slurred speech Cardiovascular: Reports: Chest pain Respiratory: Denies: Dyspnea Genitourinary: Reports: Dysuria Musculoskeletal: Reports: Extremity Pain - left knee Neurological: Denies: Headache STROKE Inital Vital Signs reviewed: Yes - NIHSS Initial 1a Level of Consciousness: 2 1b LOC Questions (Score 2 if aphasic/stupor): 2 1c LOC Commands (Only score 1st attempt): 0 2 Best Gaze (If aphasic, use reflexive mvmts.): 0 3 Visual: 0 4 Facial Palsy: 1 5 Motor Arm Right (UN = amputation/fusion): 1 5 Motor Arm Left: 1 6 Motor Leg Right: 3 6 Motor Leg Left: 3 7 Limb ataxia (Only + if out of proportion): 0 8 Sensory (Aphasia/stupor=0 or 1, coma=2): 0 9 Best Language: 1 10 Dysarthria (mute, coma=2, intubated=UN): 2 11 Extinction and Inattention (only scored if +): 0 Total Score: 16 General: Well nourished, Well developed, Obese, - - lethargic, alerts/eyes open to voice Head: Normocephalic, Atraumatic Eyes: Perrl, EOMI ENT: Moist mucous membranes, No rhinorrhea Neck: Supple, Nontender Cardiovascular: No murmurs, Irregular. Negative for: Tachycardia Respiratory: No distress, CTA bilaterally, Chest nontender Abdomen: Soft, Nontender, Nondistended, Normal bowel sounds Back: Nontender, Normal Inspection Extremities: Nontender, No edema Skin: Normal color, No rash, No Trauma Neurological: Lethargic, - - see above/NIHSS for details Psychological: - - limited due to lethargy Diagnostic/Tx/Re-eval Impressions Chest X-Ray 01/06/21 02:24 IMPRESSION: Degenerative changes, as described above. No demonstrated acute cardiopulmonary process. Electronically Signed: Carmelo Herrera MD at 4:34 EDT Tel , Service support , Head/Neck CTA 01/06/21 02:24 IMPRESSION: No significant stenosis of the cervical or intracranial arteries. N.B. : The above information has been verbally conveyed by Carmelo Herrera MD to Gaurang Edwards MD, on 01/06/2021 03:01:07 (ET). Electronically Signed: Carmelo Herrera MD at 3:01 EDT Tel , Service support , ADDENDUM: 01/06/21 0308 IMPRESSION: No significant stenosis of the cervical or intracranial arteries. N.B. : The above information has been verbally conveyed by Carmelo Herrera MD to Gaurang Edwards MD, on 01/06/2021 03:01:07 (ET). Electronically Signed: Carmelo Herrera MD at 3:01 EDT Tel , Service support , 01/06/21 02:24 Chest 1 View [RAD] Stat STROKE Brain/Head without Cont [CT] Stat STROKE CTA Head AND Neck W/Con [CT] Stat Laboratory Results 01/06/21 01/06/21 01/06/21 02:40 02:40 02:40 WBC 9.1 RBC 4.18 L Hgb 10.9 L Hct 34.4 L MCV 82.3 MCH 26.1 L MCHC 31.7 L RDW Std Deviation 43.1 RDW Coeff of Candace 14.7 H Plt Count 191 MPV 12.5 H Immature Gran % (Auto) 0.400 Neut % (Auto) 66.5 Lymph % (Auto) 21.7 [place] % (Auto) 8.3 Eos % (Auto) 2.5 Baso % (Auto) 0.6 Absolute Neuts (auto) 6.0 Absolute Lymphs (auto) 1.96 Nucleated RBC % 0 PT 13.5 INR 1.1 APTT 27.3 Sodium 139 Potassium 4.2 Chloride 105 Carbon Dioxide 28.0 Anion Gap 6 BUN 25 H Creatinine 1.20 H Estim Creat Clear Calc 38.18 Est GFR (MDRD) Af Amer 56 L Est GFR (MDRD) Non-Af 46 L BUN/Creatinine Ratio 20.8 H Glucose 285 H Lactic Acid Calcium 8.2 L Troponin I 0.016 Urine Color Urine Clarity Urine pH Ur Specific [place] Urine Protein Urine Glucose (UA) Urine Ketones Urine Occult Blood Urine Nitrite Urine Bilirubin Urine Urobilinogen Ur Leukocyte Esterase Urine RBC Urine WBC Ur Squamous Epith Cells Urine Bacteria Urine Mucus 01/06/21 01/06/21 03:05 04:00 WBC RBC Hgb Hct MCV MCH MCHC RDW Std Deviation RDW Coeff of Candace Plt Count MPV Immature Gran % (Auto) Neut % (Auto) Lymph % (Auto) [place] % (Auto) Eos % (Auto) Baso % (Auto) Absolute Neuts (auto) Absolute Lymphs (auto) Nucleated RBC % PT INR APTT Sodium Potassium Chloride Carbon Dioxide Anion Gap BUN Creatinine Estim Creat Clear Calc Est GFR (MDRD) Af Amer Est GFR (MDRD) Non-Af BUN/Creatinine Ratio Glucose Lactic Acid 1.4 Calcium Troponin I Urine Color Yellow Urine Clarity Sl. Cloudy Urine pH 6.5 Ur Specific [place] 1.010 Urine Protein 15 H Urine Glucose (UA) 1000 H Urine Ketones Negative Urine Occult Blood 10 H Urine Nitrite Positive H Urine Bilirubin Negative Urine Urobilinogen Normal Ur Leukocyte Esterase 500 H Urine RBC 0 SEEN Urine WBC 25-50 SEEN Ur Squamous Epith Cells 0 SEEN Urine Bacteria 4+ Urine Mucus 0 SEEN Chest X-Ray - ED: 1 View, Read by ED Physician, No Acute Disease, Chronic Changes, No Infiltrates - Rhythm Strip Rhythm Strip: A-fib Rate: 70 Ectopy: None - EKG Initial EKG Interpretation: No Acute Injury Pattern, Atrial Fibrillation, RBBB, LAFB Prior: Unchanged - Medical Decision Making Stroke Team Activated: Yes - prehospital Was Patient considered for Endovascular Intervention?: No - neg CTA IV Alteplase (t-PA) Administered: No - out of time window I was called by the radiologist with the negative acute finding on the plain CT head, but the patient is not an IV TPA candidate. She was sent directly to CT from the EMS bay for plain CT and CT angiography. It was noted that she had an iodine allergy, and had a rash reported in the EMR. She was given Solu-Medrol when she returned from CT. She did not develop a rash she was watched closely and did not have any other reaction. CT angiography shows no large vessel occlusion. Her urine appears grossly infected in the urinalysis is consistent with this. It was sent for culture, blood cultures were sent, she was empirically given Rocephin, and on reexamination her general condition has improved, she is more alert, able to follow commands better, and her neurologic exam is still nonlateralizing. My suspicion is that she is getting septic from a urinary tract infection and that this is not a stroke. Discussed with hospitalist and she will be admitted for further evaluation and treatment. Critical care time (excluding procedures): 30-74 minutes - 40 minutes including time spent discussing with patient and consultants, arranging admission, perfo rming direct patient care and reevaluation at the bedside, and documentation. Time exclusive of procedures. ED Disposition - Plan for ED Patient: Disposition: Acute Care Hospital [facility] Diagnosis: Urinary tract infection, Metabolic encephalopathy, Chronic renal insufficiency, Longstanding persistent atrial fibrillation, Chest pain, unspecified
--- NOTE | 2021-01-06 02:26 | ED.RN ---
patient last known well was 2001 [employer] as not contacted at this time
[2021-01-06] MEDS: MethylPREDNISolone 125 MG/2 ML Vial IV (02:40)
[2021-01-06 02:47] LABS: Absolute Lymphocyte Count 1.96 X10^3/uL (0.83-4.51); Basophil# 0.05 X10^3/uL; Basophil% 0.6 % (0-1); Eosinophil# 0.23 X10^3/uL; Eosinophils% 2.5 % (0-5); Hematocrit 34.4 % (37-47); Hemoglobin 10.9 g/dL (12.0-15.0); Lymphocyte # 1.96 X10^3/ul (4.0); Lymphocyte % 21.7 % (19-41); Mean Corp Hgb Conc 31.7 g/dL (32-36); Mean Corpuscular Hgb 26.1 pg (27.0-32.0); Mean Corpuscular Volume 82.3 fL (81-99); Mean Platelet Vol. 12.5 fl (6.2-12.0); Monocyte# 0.75 X10^3/uL; Monocyte% 8.3 % (0-10); NRBC Flagged by Analyzer 0 % (0-5); Neutrophil # 6.02 X10^3/uL (2.7-7.7); Neutrophil % 66.5 % (47-70); Platelet Count 191 K/mm3 (150-450); RBC Distribution Width CV 14.7 % (11.6-14.6); RBC Distribution Width SD 43.1 fl (35.1-43.9); Red Blood Count 4.18 M/mm3 (4.2-5.4); White Blood Count 9.1 K/mm3 (4.4-11.0)
[2021-01-06 02:55] LABS: International Normalized Ratio 1.1; Partial Thromboplast Time 27.3 Seconds (24.1-36.2); Prothrombin Time (Protime)PT. 13.5 SECONDS (11.7-14.9)
[2021-01-06 03:03] LABS: Anion Gap 6 (5-15); BUN 25 mg/dL (7-18); BUN/Creat Ratio 20.8 RATIO (10-20); Calcium,Total 8.2 mg/dL (8.5-10.1); Chloride 105 mmol/L (98-107); EST Glomerular Filtration Rate 46 mL/min (>60); Est Glom Filt Rate - Afr Amer 56 mL/min (>60); Estimated Creatinine Clearance 38.18 ml/min; Glucose 285 mg/dL (74-106); Potassium 4.2 mmol/L (3.5-5.1); Sodium Level 139 mmol/L (136-145)
[2021-01-06 03:11] LABS: Mucous, Urine 0 SEEN /hpf (<or=2+); Red Blood Cells-Urine 0 SEEN /hpf (0-5); Squamous Epithelial Cells - UA 0 SEEN /hpf (5-10)
[2021-01-06 03:12] LABS: Color, Urine Yellow (Yellow); Glucose, Dipstick 1000 mg/dl (Normal); Ketone-Dipstick Negative (Negative); Leukocyte Esterase-Dipstick 500 /ul (Negative); Nitrite-Dipstick Positive (Negative); Occult Blood-Urine 10 /ul (Negative); Protein-Dipstick 15 mg/dl (Negative); Urine Bilirubin Dipstick Negative (Negative); Urine Clarity Sl. Cloudy (Clear); Urine Urobilinogen Normal (Normal); Urine pH 6.5 (5.0 - 8.0)
[2021-01-06 03:20] LABS: Bacteria 4+ /hpf (None Seen); White Blood Cells 25-50 SEEN /hpf (0-5)
--- NOTE | 2021-01-06 03:33 | ED.RN ---
pt difficult to do nih on,pt will not do all that is asked of her.pt did tell this nurse very clearly not to touch her legs because it hurt her.
--- NOTE | 2021-01-06 04:00 | HP.PCM_ITS ---
Problem List (1) Acute encephalopathy Status: Acute (2) Acute UTI Status: Acute (3) Stroke Status: Acute Qualifiers: CVA mechanism: unspecified Qualified Code(s): I63.9 - Cerebral infarction, unspecified (4) History of permanent cardiac pacemaker placement Status: Chronic (5) Sick sinus syndrome Status: Chronic (6) Longstanding persistent atrial fibrillation Status: Chronic (7) Atherosclerosis of coronary artery without angina pectoris Status: Chronic Qualifiers: Coronary Disease-Associated Artery/Lesion type: [place] artery [place] vs. transplanted heart: [place] heart Qualified Code(s): I25.10 - Atherosclerotic heart disease of [place] coronary artery without angina pectoris (8) Right bundle branch block (RBBB) Status: Chronic (9) Chronic diastolic (congestive) heart failure Status: Chronic (10) Essential (primary) hypertension Status: Chronic (11) Hyperlipidemia Status: Chronic Qualifiers: Hyperlipidemia type: unspecified Qualified Code(s): E78.5 - Hyperlipidemia, unspecified History of Present Illness Date of Admission: 01/06/21 Chief Complaint: Confusion, ? slurred speech/L facial droop/L sided weakness The patient is a 73 y/o F w/ PMHx: Chronic normocytic anemia, CAD s/p PCI SITA proximal LAD 2004 and SITA Linferolateral marginal branch 2010, Hx Sick Sinus Syndrome s/p pacemaker placement, GERD, HTN, HLD, Chronic Diastolic CHF, PAF, Anxiety and Depression, Seizure disorder, Diabetes mellitus type II, ERIC, CKD stage III, Chronic back pain, Hypothyroidism, Dementia unclear type with unclear behavioral disturbance history who presents to the [facility] ED on 01/06/21 from SNF with history of most recent evaluation at 8 pm the evening prior, staff check up at 10 pm during which time she was noted to have been asleep and evaluation at ~ 1:20 am at which time she called for staff and was noted to have slurred speech, L facial droop, L sided weakness and urinary incontinence prompting EMS call and patient transition to the ED for evaluation. Work-up in the ED included T 97.8, heart rate 72, BP 209/80, respiratory rate 20, on 100% on 2 L nasal cannula, CBC with WBC 9.1, hemoglobin 10.9, platelet 191 without marked shift, coags unremarkable, BMP with BUN/creatinine 25/1.20, glucose 285, troponin 0.016, CT head with no acute intracranial findings, CTA head and neck with radiology initial report of no large obvious vessel occlusion, chest x-ray with no acute cardiopulmonary findings, EKG atrial fibrillation, rate controlled, urinalysis noted to be cloudy with 15 protein, 1000 glucose, 10 occult blood, positive nitrite, 500 leukocyte esterase, 25-50 urine WBCs and 4+ urine bacteria. In the ED patient ministered Solu-Medrol 125 mg IV x1 in addition to normal saline. ED physician initial add evaluation NIH stroke scale score 16; however, difficult assessment as he noted generalized weakness, worse BL LE also present mildly in BL UE, potentially mild L facial droop, more notable slurred/altered speech and lethargic presentation. Evaluation per hospitalist with notable improvement with staff analyst present also, smile corrects, more interactive answering some orientation questions appropriately, FTN appropriate BL LE, generalized weakness upper and lower extremities but specific focal deficits, negative babinski. Patient discussed with telestroke per ED physician and was deemed not a TPA candidate. Past Medical History Past Medical History (Chronic Problems): Chronic Problems (Last Reviewed 01/05/21 @ 10:36 by Jennifer Louis) Moderate aortic stenosis (Chronic) Noncompliance (Chronic) Debility (Chronic) History of permanent cardiac pacemaker placement (Chronic 03/05/17) Sick sinus syndrome (Chronic) Longstanding persistent atrial fibrillation (Chronic) Atherosclerosis of coronary artery without angina pectoris (Chronic) History of coronary artery stent placement (Chronic 01/25/11) [id number] LAD w/ 3.5 x 12 mm Taxus Express 10/23/2004; [id number] Inferolateral Marginal Branch w/ 3.0 x 9 mm Hammond Stent 01/25/2011 @ [facility] Right bundle branch block (RBBB) (Chronic) Chronic diastolic (congestive) heart failure (Chronic) Nonrheumatic aortic (valve) stenosis (Chronic) Essential (primary) hypertension (Chronic) Hyperlipidemia (Chronic) Bone cancer (Chronic) Medical History: Medical History (Last Reviewed 01/05/21 @ 10:36 by Jennifer Louis) Moderate aortic stenosis (Chronic) I35.0 Sick sinus syndrome (Chronic) I49.5 Longstanding persistent atrial fibrillation (Chronic) I48.11 Atherosclerosis of coronary artery without angina pectoris (Chronic) I25.10 Right bundle branch block (RBBB) (Chronic) I45.10 Chronic diastolic (congestive) heart failure (Chronic) I50.32 Nonrheumatic aortic (valve) stenosis (Chronic) I35.0 Essential (primary) hypertension (Chronic) I10 Hyperlipidemia (Chronic) E78.5 Bone cancer (Chronic) C41.9 CKD (chronic kidney disease) stage 3, GFR 30-59 ml/min Chronic back pain M54.9, G89.29 Goiter E04.9 History of urinary incontinence Z87.898 Hypothyroidism E03.9 Morbid obesity E66.01 Osteoarthritis PVD (peripheral vascular disease) I73.9 AISHWARYA 02/2019 Mild Sleep apnea G47.30 Type II diabetes mellitus E11.9 Cholelithiasis K80.20 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 L97.912 s/p traumatic hematoma Allergies atorvastatin calcium [From Lipitor] Allergy (Verified 01/06/21 02:26) dont remember codeine Allergy (Verified 01/06/21 02:26) Rash iodine Allergy (Verified 01/06/21 02:26) Rash Latex, Natural Rubber Allergy (Verified 01/06/21 02:26) Rash lovastatin Allergy (Verified 01/06/21 02:26) Rash rosuvastatin calcium [From Crestor] Allergy (Verified 01/06/21 02:26) rash\ tositumomab Allergy (Verified 01/06/21 02:26) PT UNSURE OF REACTION naproxen [From Naprosyn] Adverse Reaction (Verified 01/06/21 02:26) Upset Stomach pregabalin [From Lyrica] Adverse Reaction (Verified 01/06/21 02:26) Upset Stomach Sulfa (Sulfonamide Antibiotics) Adverse Reaction (Verified 01/06/21 02:26) Upset Stomach Home Medications: Ambulatory Orders Medication Instructions Recorded Metoprolol Succinate [Toprol Xl] 50 mg PO DAILY 10/11/17 Prasugrel HCl 10 mg PO DAILY 06/04/18 Duloxetine HCl 30 mg PO DAILY 11/18/18 Isosorbide Mononitrate [Imdur] 90 mg PO DAILY 02/29/20 Levothyroxine [Synthroid] 50 mcg PO DAILY 02/29/20 furosemide 20 mg tablet 20 mg PO BID tab 04/19/20 levetiracetam 500 mg tablet 500 mg PO BID tab 04/19/20 lisinopril 10 mg tablet 10 mg PO DAILY tab 04/19/20 Omeprazole [Prilosec] 20 mg PO DAILY 05/18/20 Acetaminophen [Tylenol Tablet] 650 mg PO Q6H PRN PRN tab 05/22/20 Bisacodyl [Dulcolax] 5 mg PO DAILY PRN PRN tab 05/22/20 Magnesium Hydroxide [Milk Of 30 ml PO DAILY PRN PRN udc 05/22/20 Magnesia] Nystatin Powder [Mycostatin Powder] 1 applic TOPICAL TID PRN 10/21/20 Fluticasone 0.05% [Flonase Nasal 2 spray NARES BID 12/13/20 [place]] Nitroglycerin (INPATIENT USE) 0.4 mg SUBLINGUAL X1 12/13/20 [Nitrostat] Prednisolone Acetate [Pred Forte] 3 drp OP 4X/DAY 12/13/20 atorvastatin 20 mg tablet 20 mg PO QHS 01/05/21 bisacodyl 10 mg rectal suppository 10 mg RC DAILY PRN 01/05/21 cetirizine 10 mg capsule 10 mg PO DAILY 01/05/21 insulin glargine 100 unit/mL (3 60 unit SC QPM ml 01/05/21 mL) subcutaneous pen insulin lispro 100 unit/mL 15 unit SC TID ml 01/05/21 subcutaneous pen latanoprost 0.005 % eye drops 1 drp OPHTHALMIC DAILY 01/05/21 memantine 5 mg tablet 5 mg PO BID 01/05/21 sennosides 8.6 mg capsule 8.6 mg PO BID PRN 01/05/21 Surgical History: Surgical History (Last Reviewed 01/05/21 @ 10:36 by Jennifer Louis) History of permanent cardiac pacemaker placement (Chronic) Onset Date: 03/05/17 Z95.0 History of coronary artery stent placement (Chronic) Onset Date: 01/25/11 Z95.5 [id number] LAD w/ 3.5 x 12 mm Taxus Express 10/23/2004; [id number] Inferolateral Marginal Branch w/ 3.0 x 9 mm Hammond Stent 01/25/2011 @ [facility] History of hysterectomy Z90.710 History of loop recorder Onset Date: 2013 Z98.890 History of thyroidectomy Z90.09 Surgical History: hysterectomy, pacemaker implantation, - - PCI x2, thyroidectomy for goiter, left lower extremity surgery for bone cancer, pacemaker, hysterectomy. 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 Sibling Family History: Family History (Last Reviewed 01/05/21 @ 10:36 by Jennifer Nolt) Other Cancer History Items: Cancer - Her sister had ovarian cancer., Hypertension Review of Systems Constitutional: Reports: Malaise, Weakness, Fatigue. Denies: Chills, Fever, Weight Change HEENT: Denies: Head Aches, Sinus Congestion, Sinus Drainage Cardiovascular: Denies: Chest Pain, Palpitations Respiratory: Denies: Cough, Shortness of breath at rest, Sputum production Gastrointestinal: Reports: Nausea. Denies: Abdominal Pain - Suprapubic region., Vomiting Genitourinary: Reports: Incontinence. Denies: Dysuria Musculoskeletal: Reports: Back Pain, Joint Pain. Denies: Joint Tenderness Skin: Denies: Rash, Wounds Neurological: Reports: Slurred speech, Confusion, - - Generalized weakness.. Denies: Focal weakness, Numbness, Tingling Psychiatric: Reports: Anxiety, Depression. Denies: Homicidal Ideations, Suicidal Ideations Hematologic/ Lymphatic: Reports: Anemia, Easy Bruising, Easy Bleeding VTE Information - Inpt Only VTE Present on Admission: No VTE Mechan Device Prophylaxis: SCD's VTE Pharm Prophylaxis ordered?: Yes Patient Problems: Active and Suspected Problems (Last Reviewed 01/05/21 @ 10:36 by Jennifer Nolt) Acute encephalopathy (Acute) Acute UTI (Acute) Stroke (Acute) Subjective: Patient laying in the ED bed, initially very lethargic and fatigued but upon prompting did wake up and became more alert, answers some orientation questions appropriately although confounded as does have underlying dementia, no acute distress aside from reporting suprapubic discomfort. Objective: Physical Examination: General: awake, alert, oriented to self, place, some recent events, does have underlying dementia, remains cooperative, laying in the ED bed, complaining of suprapubic discomfort currently. Skin: normal color, turgor, no icterus, cyanosis except occasional staged ecchymoses and bilateral lower extremity stasis disease evident. HEENT: AT/NC, EOMI, PERRLA, mildly dry MM, initial concern for facial droop however do suspect likely facial changes secondary to lack of teeth, corrects with requested smiling, no carotid bruits or JVD noted however difficult exam given thickened neck. Lungs: Diminished breath sounds, greater bases, appropriate effort, no rales, ronchi or wheezing. Heart: Irregular, rate controlled; no gallop, rub audible. Abdomen: soft, morbidly obese, noted suprapubic tenderness palpation otherwise nontender in other quadrants, ND although difficult exam given habitus, distant normal BS, no obvious HSM but again difficult exam given suprapubic discomfort and habitus Extremities: no cyanosis or clubbing, bilateral lower extremity pedal to distal claros not markedly pitting edema. Neurological: patient initially lethargic but awoke and became more alert during evaluation, oriented as noted; cognitive function decreased from baseline, baseline does have underlying dementia, suspect larger component of encephalopathy secondary to UTI; pupils equally reactive to light and accomodation; cranial nerves II-XII grossly normal and as noted suspect initial concern for droop of the face secondary to lack of teeth as corrects with request of smile, moving all 4 extremities, no focal deficits but significant severe global weakness, able to complete [id number] and arpc-ji-[id number] although some difficulty with lower extremity elevation secondary to likely underlying generative disc disease with spinal stenosis, negative Babinski. Psychiatric: affect appears fatigued, no acute evidence of depressive or anxiety feelings. - Physical Exam Vitals/I&O's: Vital Signs Temp Pulse Resp BP Pulse Ox 97.8 F 73 13 131/59 H 100 01/06/21 02:41 01/06/21 03:30 01/06/21 03:30 01/06/21 03:30 01/06/21 03:30 Oxygen Flow Rate (L/min) 2 Oxygen Delivery Method Room Air Weight: 233 lb 11.04 oz Body Mass Index (BMI) 36.6 Finger Stick Blood Glucose 336 Laboratory Results 01/06/21 02:40: WBC 9.1, RBC 4.18 L, Hgb 10.9 L, Hct 34.4 L, MCV 82.3, MCH 26.1 L, MCHC 31.7 L, RDW Std Deviation 43.1, RDW Coeff of Candace 14.7 H, Plt Count 191, MPV 12.5 H, Immature Gran % (Auto) 0.400, Neut % (Auto) 66.5, Lymph % (Auto) 21.7, [place] % (Auto) 8.3, Eos % (Auto) 2.5, Baso % (Auto) 0.6, Absolute Neuts (auto) 6.0, Absolute Lymphs (auto) 1.96, Nucleated RBC % 0 01/06/21 02:40: PT 13.5, INR 1.1, APTT 27.3 01/06/21 02:40: Sodium 139, Potassium 4.2, Chloride 105, Carbon Dioxide 28.0, Anion Gap 6, BUN 25 H, Creatinine 1.20 H, Estim Creat Clear Calc 38.18, Est GFR (MDRD) Af Amer 56 L, Est GFR (MDRD) Non-Af 46 L, BUN/Creatinine Ratio 20.8 H, Glucose 285 H, Calcium 8.2 L, Troponin I 0.016 01/06/21 03:05: Urine Color Yellow, Urine Clarity Sl. Cloudy, Urine pH 6.5, Ur Specific [place] 1.010, Urine Protein 15 H, Urine Glucose (UA) 1000 H, Urine Ketones Negative, Urine Occult Blood 10 H, Urine Nitrite Positive H, Urine Bilirubin Negative, Urine Urobilinogen Normal, Ur Leukocyte Esterase 500 H, Urine RBC 0 SEEN, Urine WBC 25-50 SEEN, Ur Squamous Epith Cells 0 SEEN, Urine Bacteria 4+, Urine Mucus 0 SEEN Current Medications Sodium Chloride 1,000 ml/ N/A 1,000 mls @ 106 mls/hr IV .[id number] JEAN Stop: 01/07/21 02:26 Last Admin: 01/06/21 02:50 Dose: 1 ml/kg/hr, 106 mls/hr Documented by: Labetalol HCl (Labetalol (Prefilled) 20 Mg/4 Ml) 20 mg IV X1 PRN PRN Reason: BLOOD PRESSURE Assessment/Plan All Active Problems (Last Reviewed 01/05/21 @ 10:36 by Jennifer Louis) Acute encephalopathy (Acute) Acute UTI (Acute) Stroke (Acute) Hyperglycemia (Acute) Metabolic encephalopathy (Acute) The patient is a 73 y/o F w/ PMHx: Chronic normocytic anemia, CAD s/p PCI SITA proximal LAD 2004 and SITA Linferolateral marginal branch 2010, Hx Sick Sinus Syndrome s/p pacemaker placement, GERD, HTN, HLD, Chronic Diastolic CHF, PAF, Anxiety and Depression, Seizure disorder, Diabetes mellitus type II, ERIC, CKD stage III, Chronic back pain, Hypothyroidism, Dementia unclear type with unclear behavioral disturbance history who presents to the [facility] ED on 01/06/21 from SNF with history of most recent evaluation at 8 pm the evening prior, staff check up at 10 pm during which time she was noted to have been asleep and evaluation at ~ 1:20 am at which time she called for staff and was noted to have slurred speech, ? L facial droop, ? L sided weakness and urinary incontinence prompting EMS call and patient transition to the ED for evaluation. 1. Slurred speech, ? left-sided facial droop, generalized weakness, BL LE > BL UE concerning for possible TIA/CVA although higher suspicion for Acute encephalopathy secondary to #2: Will admit to PCU, given pacemaker status will be unable to obtain MRI, will plan repeat CT of the brain in 24 hours, patient with 03/01/2020 echocardiogram with contrast injection at that time with no concerning findings therefore will defer repeating, PT/OT/Speech/Nutrition evaluation per protocol. Will consult Neurology for evaluation once above-noted intervention evaluations are performed. Will allow permissive HTN, maintain on asa/prasugrel however currently patient failed swallow evaluation in the ED thus will temporarily place patient on MI aspirin therapy once appropriate transition back, given extensive presentation with high stroke scale scoring although confounded will hold on any anticoagulation therapy given PAF history pending further assessment given possible concern for conversion potential pending repeat neurology assessment, continue statin once oral intake appropriate w/ AM FLP, fall precautions. Mag, TSH, HgbA1c, FLP pending. UDS requested. 2. Acute Urinary Tract Infection: UA upon ED evaluation remarkable, pending UCx, continue judicious IVFs given underlying history, monitor I/Os, continue IV Rocephin w/ transition as able pending sensitivities and speciation, monitor for any urinary retention. Bld Cx pending per ED. LA pending upon admission. 3. CAD with Chest pain complaint: Status post PCI proximal LAD 2004 as well as left anterior lateral marginal branch in 2010, will continue prasugrel, asa, statin once oral intake appropriate, MI aspirin currently, holding HTN regimen, cycling cardiac enzymes given chest pain vague complaint but not best historian currently, repeat EKGs. 4. Chronic diastolic CHF: We will continue patient home prasugrel, statin regimen, holding hypertensive regimen given acute presentation as noted, resume once clinically appropriate. Will judiciously hydrate given patient history of chronic diastolic CHF. 03/01/2020 echocardiogram with EF 70%, mildly enlarged LA, moderate aortic stenosis with contrast injection performed. Currently MI aspirin transition, holding oral aspirin and prasugrel, permissive hypertension, holding statin given failed swallow ED evaluation. 5. PAF: Holding patient metoprolol regimen, not anticoagulated, given acute presentation we will continue patient aspirin and prasugrel however given very broad appearance with high stroke scale will await neurology further input to consider anticoagulation in case of concern for conversion. 6. Hypertension: As noted maintaining permissive hypertension given acute presentation, resume once clinically appropriate, tends to be noncompliant with regimen and recently was admitted and discharged on 12/14/2020 secondary to hypertensive urgency presentation. 7. Hyperlipidemia: Temporarily holding patient home statin regimen given failure of swallow evaluation in the ED, add back once appropriate. AM FLP. 8. Chronic normocytic anemia: Admission hemoglobin 10.9, previous baseline 10- 11, stable, trend. 9. Diabetes mellitus type II: Hold oral home regimen, continue home insulin regimen but may consider one half dose given n.p.o. status, n.p.o. status pending speech evaluation, accu checks w/ ISS every 6 hours while n.p.o., hemoglobin A1c requested. 10. Seizure disorder, epilepsy: Given n.p.o. status will transition to IV Keppra regimen until swallow evaluation improved. 11. History of sick sinus syndrome: Status post pacemaker placement. 12. Hypothyroidism: History of goiter status post thyroidectomy, will temporarily hold patient Synthroid regimen. 13. Dementia, unclear type with unclear behavioral disturbance history: Patient does have notable dementia baseline as well as noncompliance, complicates presentation, will temporarily hold patient memantine home regimen. 14. Chronic Kidney Disease Stage III: Admission BUN/Cr 25/1.20, baseline renal function 1.1-1.3, repeat BMP in AM. 15. Anxiety and depression: We will temporarily hold patient home duloxetine regimen. 16. GERD: We will continue patient home PPI. 17. ERIC: Noncompliant with CPAP noted prior. 18. DVT prophylaxis: SCDs, Lovenox. 19. CODE status: Patient HCPOA is her daughter Cinthia South and living will is currently in place. Patient listed from facility and most recent HCPOA paperwork as DNR-CCA, no intubation status. Inpatient E&M: [id number] Init Hosp L3
[2021-01-06] MEDS: Ceftriaxone 1 GM/50 ML BAG IV (04:16)
[2021-01-06 04:45] LABS: Lactic Acid 1.4 mmol/L (0.4-1.9)
[2021-01-06 05:54] LABS: Amphetamine Urine VISTA NEGATIVE (<1000 ng/mL); Barbiturate Urine VISTA NEGATIVE (< 200 ng/mL); Benzodiazepine Urine VISTA NEGATIVE (< 200 ng/mL); Cocaine Urine VISTA NEGATIVE (< 300 ng/mL); Ecstacy Urine VISTA NEGATIVE (< 500 ng/mL); Methadone Urine VISTA NEGATIVE (< 300 ng/mL); PCP Urine VISTA NEGATIVE (< 25 ng/mL); THC Urine VISTA NEGATIVE (< 50 ng/mL); Vista UDS pH Range 6
[2021-01-06 05:55] LABS: Absolute Lymphocyte Count 1.11 X10^3/uL (0.83-4.51); Absolute Neutrophil Count 8.4 X10^3/uL (2.0-7.7); Basophil# 0.05 X10^3/uL; Basophil% 0.5 % (0-1); Eosinophil# 0.08 X10^3/uL; Eosinophils% 0.8 % (0-5); Hematocrit 39.9 % (37-47); Hemoglobin 12.2 g/dL (12.0-15.0); Lymphocyte # 1.11 X10^3/ul (4.0); Lymphocyte % 11.2 % (19-41); Mean Corp Hgb Conc 30.6 g/dL (32-36); Mean Corpuscular Hgb 25.8 pg (27.0-32.0); Mean Corpuscular Volume 84.4 fL (81-99); Mean Platelet Vol. 12.8 fl (6.2-12.0); Monocyte# 0.22 X10^3/uL; Monocyte% 2.2 % (0-10); NRBC Flagged by Analyzer 0 % (0-5); Neutrophil # 8.41 X10^3/uL (2.7-7.7); Platelet Count 182 K/mm3 (150-450); RBC Distribution Width CV 14.7 % (11.6-14.6); RBC Distribution Width SD 44.8 fl (35.1-43.9); Red Blood Count 4.73 M/mm3 (4.2-5.4); White Blood Count 9.9 K/mm3 (4.4-11.0)
[2021-01-06 05:56] LABS: Bedside Glucose 281 mg/dL (70-110)
[2021-01-06 06:29] LABS: ALB/GLOB Ratio 0.8 RATIO (0.9-2.4); AST(SGOT) 26 U/L (15-37); Alanine Aminotransfer ALT/SGPT 37 U/L (13-56); Alkaline Phosphatase 135 U/L (45-117); Anion Gap 7 (5-15); BUN 23 mg/dL (7-18); BUN/Creat Ratio 18.9 RATIO (10-20); Calcium,Total 8.7 mg/dL (8.5-10.1); Chloride 107 mmol/L (98-107); Cholesterol 137 mg/dL (200); Creatinine, Serum 1.22 mg/dL (0.55-1.02); EST Glomerular Filtration Rate 45 mL/min (>60); Est Glom Filt Rate - Afr Amer 55 mL/min (>60); Estimated Creatinine Clearance 37.55 ml/min; Globulin 3.7 g/dL (2.2-4.2); Glucose 252 mg/dL (74-106); High Density Lipoprotein 38 mg/dL; Magnesium 2.3 mg/dL (1.6-2.6); Potassium 4.5 mmol/L (3.5-5.1); Protein, Total 6.7 g/dL (6.4-8.2); Sodium Level 142 mmol/L (136-145); T4 Free Direct 1.14 ng/dL (0.76-1.46); Thyroid Stim Hormone (TSH) 1.12 uIU/mL (0.358-3.74); Triglycerides 96 mg/dL; Very Low Density Lipoprotein 19 mg/dL (5-40)
[2021-01-06 07:20] LABS: Hemoglobin A1c 9.4 % (3.8-5.6)
[2021-01-06] MEDS: Enoxaparin 40 MG/0.4 ML Syringe SC (10:58)
[2021-01-06] MEDS: prednisoLONE eye drops (5 mL) 1 DROP OPTH.BTL 1 DRP OPHTHALMIC ×2 (10:59→14:24)
[2021-01-06] MEDS: Latanoprost 0.005% 1 Bottle 1 DRP OPHTHALMIC (11:01)
--- NOTE | 2021-01-06 11:19 | CM.ED ---
SOCIAL WORK Received call from BRIT Morris. Per Alexandra hospitalist inquiring about patient's return to senior care[facility] today. Call to [facility]. Informed if patient is ready for discharge able to return today. Patient on A Wing at [facility], nurse today Rhea. Iva Tejada, BUILDING INSPECTION ENGINEER, ARTIFICIAL CHERRY [employer]KER
[2021-01-06] MEDS: 0.9% Normal Saline 1,000 ML 100 ML IV (13:49)
--- NOTE | 2021-01-06 14:47 | PCM.TXEXTCAR ---
- Diet 01/06/21 11:04 Diet: Regular - 1800 jony ADA Food consistency:: Soft & Bite Sized Liquid Consistency:: Regular/Thin Is pt able to select menu?: yes - Therapies Physical Therapy: Eval and Treat Occupational Therapy: Eval and Treat - Problem/Diagnosis (1) Dementia Status: Chronic (2) Acute encephalopathy Status: Acute Comment: secondary to UTI (3) Acute UTI Status: Acute (4) Atherosclerosis of coronary artery without angina pectoris Status: Chronic (5) Chronic diastolic (congestive) heart failure Status: Chronic - Allergies/Procedures Done in Hospital Allergies/Adverse Reactions: Allergies atorvastatin calcium [From Lipitor] Allergy (Verified 01/06/21 06:00) dont remember codeine Allergy (Verified 01/06/21 06:00) Rash iodine Allergy (Verified 01/06/21 06:00) Rash Latex, Natural Rubber Allergy (Verified 01/06/21 06:00) Rash lovastatin Allergy (Verified 01/06/21 06:00) Rash rosuvastatin calcium [From Crestor] Allergy (Verified 01/06/21 06:00) rash\ tositumomab Allergy (Verified 01/06/21 06:00) PT UNSURE OF REACTION naproxen [From Naprosyn] Adverse Reaction (Verified 01/06/21 06:00) Upset Stomach pregabalin [From Lyrica] Adverse Reaction (Verified 01/06/21 06:00) Upset Stomach Sulfa (Sulfonamide Antibiotics) Adverse Reaction (Verified 01/06/21 06:00) Upset Stomach Procedures: None - Type of Care/Length of Stay Estimated LOS: More Than 30 Days Type of Care Needed: Intermediate Rehab Potential: Good Prognosis: Good - Additional Orders/Day of Discharge H&P will serve as current which was dated: 01/06/21 Day of Discharge: 01/06/21 - Dietary and Speech Recommendations Speech Linguistic Eval Summary: Pt alert and oriented to self, , location, and current month/year with time to process. Pt reoriented to full date and reason for admission. Pt able to name objects in room 05/20. Pt could follow all verbal directions. Pt recalled 1/3 words with 3 minute delay. Pt aware of how to use call light in room. Pt's speech hyperverbal at times with occasional redirection. - Follow Up Care Primary Care Physician: Jose Antonio Waterman MD [Primary Care Provider] -
--- NOTE | 2021-01-06 14:52 | DS.PCM_ITS ---
Discharge Date and Diagnosis - Problem List Patient Problems: Active and Suspected Problems (Last Reviewed 01/05/21 @ 10:36 by Jennifer Louis) Acute encephalopathy (Acute) secondary to UTI Acute UTI (Acute) Stroke (Acute) Urinary tract infection (Acute) Chest pain, unspecified (Acute) Metabolic encephalopathy (Acute) Date of Admission: 01/06/21 Date of Discharge: 01/06/21 - Primary Discharge Diagnosis Acute Problems: Active Problems (Last Reviewed 01/05/21 @ 10:36 by Jennifer Louis) Acute encephalopathy (Acute) secondary to UTI Acute UTI (Acute) Alzheimer's dementia Coronary artery disease Chronic diastolic congestive heart failure Type 2 diabetes Chronic kidney disease stage IIIa secondary to type 2 diabetes - Secondary Discharge Diagnosis Chronic Problems: Chronic Problems (Last Reviewed 01/05/21 @ 10:36 by Jennifer Louis) Chronic renal insufficiency (Chronic) Dementia (Chronic) Moderate aortic stenosis (Chronic) Noncompliance (Chronic) Debility (Chronic) History of permanent cardiac pacemaker placement (Chronic 03/05/17) Sick sinus syndrome (Chronic) Longstanding persistent atrial fibrillation (Chronic) Atherosclerosis of coronary artery without angina pectoris (Chronic) History of coronary artery stent placement (Chronic 01/25/11) [id number] LAD w/ 3.5 x 12 mm [employer] 10/23/2004; [id number] Inferolateral Marginal Branch w/ 3.0 x 9 mm [place] Stent 01/25/2011 @ [facility] Right bundle branch block (RBBB) (Chronic) Chronic diastolic (congestive) heart failure (Chronic) Nonrheumatic aortic (valve) stenosis (Chronic) Essential (primary) hypertension (Chronic) Hyperlipidemia (Chronic) Bone cancer (Chronic) Hospital Course and Treatment Operations: None Procedures: None Summary of Care Provided: The patient is a 75 year old F seen in the emergency room at [facility] from an extended care facility at which the patient resides due to some slurred speech this morning and mental status change. Patient has a history of Alzheimer's dementia. Evaluation in the ER included a CT of the head which showed no evidence of an acute stroke, labs showed elevated creatinine and BUN in keeping with her history of chronic kidney disease. Patient's blood sugar was elevated-she has a history of type 2 diabetes. Patient was placed in observation status on PCU, she was seen in consultation by PT and OT who recommended continued skilled therapy. On admission, it appeared that the patient had an abnormal urinalysis suggesting a urinary tract infection-her white blood cell count however was normal. Patient was placed on IV Rocephin. Patient remained alert while she was on PCU and answers simple questions appropriately but there was a level of confusion in keeping with her Alzheimer's dementia. On 01/06/2021, patient was seen and examined: On examination she appeared in good health and spirits, she does not appear to be in any distress, there is evidence of cognitive impairment with some confusion. Vital signs as documented. Skin warm and dry and without overt rashes. Neck without JVD, thyroid appears normal, trachea is midline, neck is supple. Lungs clear, normal air movement was noted. Heart exam notable for regular rhythm, normal sounds and absence of murmurs, rubs or gallops. Abdomen unremarkable and without evidence of organomegaly, masses, or abdominal aortic enlargement, bowel sounds are present in all 4 quadrants, no abdominal tenderness was noted. Extremities nonedematous, no cyanosis was noted, no clubbing was noted. Neuro: Cranial nerves II through XII are grossly intact, no focal motor deficits were noted, sensation to light touch and pinprick is intact, motor exam 5/5 throughout. Psych: Patient is alert, she replies appropriately to most simple questions. Patient appears stable for transfer back to her extended care facility on 01/06/2021, I do not feel the patient had a stroke. Patient Problems: Active and Suspected Problems (Last Reviewed 01/05/21 @ 10:36 by Jennifer Louis) Acute encephalopathy (Acute) secondary to UTI Acute UTI (Acute) Stroke (Acute) Urinary tract infection (Acute) Chest pain, unspecified (Acute) Metabolic encephalopathy (Acute) - Physical Exam Vitals/I&O's: Vital Signs Temp Pulse Resp BP Pulse Ox 97.5 F L 85 15 112/64 98 01/06/21 14:09 01/06/21 14:09 01/06/21 14:09 01/06/21 14:09 01/06/21 14:09 Oxygen Flow Rate (L/min) 2 Oxygen Delivery Method Room Air Weight: 101.6 kg Body Mass Index (BMI) 36.6 Finger Stick Blood Glucose 336 Intake and Output for Last 24 Hours 01/04/21 01/05/21 01/06/21 23:59 23:59 23:59 Intake Total 1385.00 / 1385.00 Output Total 800 / 800 Balance 585.00 / 585.00 Laboratory Results 01/06/21 02:40: WBC 9.1, RBC 4.18 L, Hgb 10.9 L, Hct 34.4 L, MCV 82.3, MCH 26.1 L, MCHC 31.7 L, RDW Std Deviation 43.1, RDW Coeff of Candace 14.7 H, Plt Count 191, MPV 12.5 H, Immature Gran % (Auto) 0.400, Neut % (Auto) 66.5, Lymph % (Auto) 21.7, Eaton % (Auto) 8.3, Eos % (Auto) 2.5, Baso % (Auto) 0.6, Absolute Neuts (auto) 6.0, Absolute Lymphs (auto) 1.96, Nucleated RBC % 0 01/06/21 02:40: PT 13.5, INR 1.1, APTT 27.3 01/06/21 02:40: Sodium 139, Potassium 4.2, Chloride 105, Carbon Dioxide 28.0, Anion Gap 6, BUN 25 H, Creatinine 1.20 H, Estim Creat Clear Calc 38.18, Est GFR (MDRD) Af Amer 56 L, Est GFR (MDRD) Non-Af 46 L, BUN/Creatinine Ratio 20.8 H, Glucose 285 H, Calcium 8.2 L, Troponin I 0.016 01/06/21 03:05: Urine Color Yellow, Urine Clarity Sl. Cloudy, Urine pH 6.5, Ur Specific [place] 1.010, Urine Protein 15 H, Urine Glucose (UA) 1000 H, Urine Ketones Negative, Urine Occult Blood 10 H, Urine Nitrite Positive H, Urine Bilirubin Negative, Urine Urobilinogen Normal, Ur Leukocyte Esterase 500 H, Urine RBC 0 SEEN, Urine WBC 25-50 SEEN, Ur Squamous Epith Cells 0 SEEN, Urine Bacteria 4+, Urine Mucus 0 SEEN 01/06/21 04:00: Lactic Acid 1.4 01/06/21 05:30: Sodium 142, Potassium 4.5, Chloride 107, Carbon Dioxide 28.0, Anion Gap 7, BUN 23 H, Creatinine 1.22 H, Estim Creat Clear Calc 37.55, Est GFR (MDRD) Af Amer 55 L, Est GFR (MDRD) Non-Af 45 L, BUN/Creatinine Ratio 18.9, Glucose 252 H, Calcium 8.7, Magnesium 2.3, Total Bilirubin 0.40, AST 26, ALT 37, Alkaline Phosphatase 135 H, Total Protein 6.7, Albumin 3.0 L, Globulin 3.7, Albumin/Globulin Ratio 0.8 L, Triglycerides 96, Cholesterol 137, LDL Cholesterol 80, VLDL Cholesterol 19, HDL Cholesterol 38 L, TSH 1.12, Free T4 1.14 01/06/21 05:30: WBC 9.9, RBC 4.73, Hgb 12.2, Hct 39.9, MCV 84.4, MCH 25.8 L, MCHC 30.6 L, RDW Std Deviation 44.8 H, RDW Coeff of Candace 14.7 H, Plt Count 182, MPV 12.8 H, Immature Gran % (Auto) 0.300, Neut % (Auto) 85.0 H, Lymph % (Auto) 11.2 L, Eaton % (Auto) 2.2, Eos % (Auto) 0.8, Baso % (Auto) 0.5, Absolute Neuts (auto) 8.4 H, Absolute Lymphs (auto) 1.11, Nucleated RBC % 0 01/06/21 05:30: Hemoglobin A1c 9.4 H 01/06/21 05:30: Troponin I < 0.015 01/06/21 05:46: POC Glucose 281 H 01/06/21 08:35: Troponin I < 0.015 01/06/21 : Urine Opiates Screen NEGATIVE, Urine Methadone Screen NEGATIVE, Ur Barbiturates Screen NEGATIVE, Ur Phencyclidine Scrn NEGATIVE, Ur Amphetamines Screen NEGATIVE, U Methamphetamin-MDMA NEGATIVE, U Benzodiazepines Scrn NEGATIVE, Urine Cocaine Screen NEGATIVE, U Cannabinoids Screen NEGATIVE, Ur Drug Screen Comment Current Medications Acetaminophen (Acetaminophen 650 Mg Suppository) 650 mg RC Q4H PRN PRN PRN Reason: fever, pain 1-10 Albuterol Sulfate (Albuterol 2.5 Mg/3 Ml Vial.Neb.) 2.5 mg INHALATION Q2H PRN PRN PRN Reason: Dyspnea, wheezing Enoxaparin Sodium (Enoxaparin 40 Mg/0.4 Ml Syringe) 40 mg SC DAILY JEAN Last Admin: 01/06/21 10:58 Dose: 40 mg Documented by: Fluticasone Propionate (Fluticasone 0.05% 1 [place] Nasal.Sry) 2 spray NASAL BID COUNT INCLUDES THE [facility] Last Admin: 01/06/21 10:57 Dose: Not Given Documented by: Hydralazine HCl (Hydralazine 20 Mg/Ml Vial) 5 mg IV Q30M PRN PRN Reason: to maintain BP goals Levetiracetam 500 mg/ Sodium (Chloride) 105 mls @ 400 mls/hr IV Q12 COUNT INCLUDES THE [facility] Last Infusion: 01/06/21 11:10 Dose: Infused Documented by: Pantoprazole Sodium 40 mg/ (Sodium Chloride) 110 mls @ 330 mls/hr IV Q12 COUNT INCLUDES THE [facility] Last Infusion: 01/06/21 12:00 Dose: Infused Documented by: Ceftriaxone Sodium (Rocephin) 1 gm in 50 mls @ 100 mls/hr IV Q24H COUNT INCLUDES THE [facility] Sodium Chloride () 1,000 mls @ 100 mls/hr IV .Q10H COUNT INCLUDES THE [facility] Last Admin: 01/06/21 13:49 Dose: 100 mls/hr Documented by: Insulin Glargine (Insulin Glargine 100 Units/Ml Pen) 60 units SC QPM COUNT INCLUDES THE [facility] Labetalol HCl (Labetalol (Prefilled) 20 Mg/4 Ml) 10 - 20 mg IV Q10M PRN PRN PRN Reason: to Maintain BP Goals Latanoprost (Latanoprost 0.005% 1 Bottle) 1 drp OPHTHALMIC DAILY COUNT INCLUDES THE [facility] Last Admin: 01/06/21 11:01 Dose: 1 drp Documented by: Nystatin (Nystatin Powder 15gm Bottle) 1 applic TOPICAL TID PRN; Protocol PRN Reason: yeast Prednisolone Acetate (Prednisolone Eye Drops (5 Ml) 1 Drop Opth.Btl) 1 drp OPHTHALMIC 4X/DAY COUNT INCLUDES THE [facility] Last Admin: 01/06/21 14:24 Dose: 1 drp Documented by: Home Medications: Medications to take at Discharge Metoprolol Succinate [Toprol Xl] 50 mg PO DAILY 10/11/17 Prasugrel HCl 10 mg PO DAILY 06/04/18 Duloxetine HCl 30 mg PO DAILY 11/18/18 Isosorbide Mononitrate [Imdur] 90 mg PO DAILY 02/29/20 Levothyroxine [Synthroid] 50 mcg PO DAILY 02/29/20 furosemide 20 mg tablet 20 mg PO BID tab 04/19/20 levetiracetam 500 mg tablet 500 mg PO BID tab 04/19/20 lisinopril 10 mg tablet 10 mg PO DAILY tab 04/19/20 Omeprazole [Prilosec] 20 mg PO DAILY 05/18/20 Acetaminophen [Tylenol Tablet] 650 mg PO Q6H PRN PRN tab 05/22/20 Bisacodyl [Dulcolax] 5 mg PO DAILY PRN PRN tab 05/22/20 Magnesium Hydroxide [Milk Of Magnesia] 30 ml PO DAILY PRN PRN udc 05/22/20 Nystatin Powder [Mycostatin Powder] 1 applic TOPICAL TID PRN 10/21/20 Fluticasone 0.05% [Flonase Nasal [place]] 2 spray NARES BID 12/13/20 Nitroglycerin (INPATIENT USE) [Nitrostat] 0.4 mg SUBLINGUAL X1 12/13/20 Prednisolone Acetate [Pred Forte] 3 drp OP 4X/DAY 12/13/20 atorvastatin 20 mg tablet 20 mg PO QHS 01/05/21 bisacodyl 10 mg rectal suppository 10 mg RC QHS PRN 01/05/21 insulin glargine 100 unit/mL (3 mL) subcutaneous pen 60 unit SC QPM ml 01/05/21 insulin lispro 100 unit/mL subcutaneous pen 15 unit SC TID ml 01/05/21 latanoprost 0.005 % eye drops 1 drp OPHTHALMIC QHS 01/05/21 sennosides 8.6 mg capsule 8.6 mg PO BID PRN 01/05/21 Cephalexin [Keflex] 500 mg PO TID #21 capsule 01/06/21 Donepezil HCl [Aricept] 5 mg PO QHS #1 tab 01/06/21 Memantine HCl 10 mg PO BID #1 tablet 01/06/21 Following Prescriptions Were Given to Patient: Donepezil HCl [Aricept] 5 mg PO QHS #1 tab Cephalexin [Keflex] 500 mg PO TID #21 capsule Memantine HCl 10 mg PO BID #1 tablet Primary Care Physician: Jose Antonio Waterman MD [Primary Care Provider] - Disposition: [facility] facility Minutes spent on discharge:: 30 Patient Condition:: Stable Medical Necessity - Tobacco Use Smoking Status: Never smoker Tobacco Use: Non-smoker Meaningful Use Info Meaningful Use Diagnoses (Choose all that apply): None applicable OBSV E&M: 11843 Observ/hosp same date L3
--- NOTE | 2021-01-06 15:21 | NURSING ---
RN called [facility] to give report. No answer. Unable to leave message.
--- NOTE | 2021-01-06 16:24 | NURSING ---
This RN called [facility] [phone] again to give report. No answer. Unable to leave message.
== END 2021-01-06 14:51 | disposition skilled nursing facility (03) ==
LOC: ED 04:10 → PCU 04:46
PROVIDERS: Admitting Provider Family Medicine; Emergency Provider Emergency Medicine; PCP Family Medicine; Visit Provider Internal Medicine
DX: N39.0 Urinary tract infection, site not specified (principal); I13.0 Hypertensive heart and chronic kidney disease with heart failure and stage 1 through stage 4 chronic kidney disease, or unspecified chronic kidney disease; E11.22 Type 2 diabetes mellitus with diabetic chronic kidney disease; E78.5 Hyperlipidemia, unspecified; N18.31 Chronic kidney disease, stage 3a; G30.9 Alzheimer's disease, unspecified; F02.80 Dementia in other diseases classified elsewhere, unspecified severity, without behavioral disturbance, psychotic disturbance, mood disturbance, and anxiety; I50.32 Chronic diastolic (congestive) heart failure; R29.810 Facial weakness; R53.1 Weakness; R47.81 Slurred speech; I25.10 Atherosclerotic heart disease of native coronary artery without angina pectoris; G93.41 Metabolic encephalopathy; I48.11 Longstanding persistent atrial fibrillation; R07.9 Chest pain, unspecified; G47.33 Obstructive sleep apnea (adult) (pediatric); K21.9 Gastro-esophageal reflux disease without esophagitis; F41.9 Anxiety disorder, unspecified; G89.29 Other chronic pain; F32.9 Major depressive disorder, single episode, unspecified; E03.9 Hypothyroidism, unspecified; Z79.899 Other long term (current) drug therapy; Z79.51 Long term (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 of inhaled steroids; Z79.4 Long term (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 of insulin; Z95.0 Presence of cardiac pacemaker; Z95.5 Presence of coronary angioplasty implant and graft; E66.01 Morbid (severe) obesity due to excess calories; E11.51 Type 2 diabetes mellitus with diabetic peripheral angiopathy without gangrene; Z68.36 Body mass index [BMI] 36.0-36.9, adult; G40.909 Epilepsy, unspecified, not intractable, without status epilepticus; D64.9 Anemia, unspecified
CPT/HCPCS: 36415; 51702; 70450; 70496; 70498; 71045; 80048; 80053; 80061; 80307; 81001; 82962; 83036; 83605; 83735; 84439; 84443; 84484; 85025; 85610; 85730; 87040; 87077; 87086; 87088; 87186; 92523; 92610; 93005; 96361; 96365; 96367; 96372; 96375; 97163; 97166; 97802; 99218; 99285; J7030; Q9967; A4216; G0378

== ENCOUNTER → 2021-01-11 12:44 | Outpatient (CLI) | payer MEDICARE, MEDICAID, SELFPAY ==
[2021-01-05 10:19] VITALS: BMI 36.4
[2021-01-06 02:41] VITALS: BMI 36.6
--- NOTE | 2021-01-11 12:48 | ECHOD_ITS ---
Reason For Study: Aortic stenosis Procedure This was a 2D Doppler, Color Flow transthoracic echocardiogram. Exam performed in department. Left Ventricle Normal LV size. Severe concentric left ventricular hypertrophy. Left ventricular systolic function is normal. The estimated ejection fraction is 60 %. No regional wall motion abnormalities noted. Right Ventricle Normal RV size. ICD or pacer leads identified within the right ventricle. Normal systolic function. Atria The left atrium is mildly enlarged. Normal right atrium. Mitral Valve Normal mitral valve. Tricuspid Valve Normal tricuspid valve. Aortic Valve Trisinus/trileaflet aortic valve. Mild focal aortic valve calcification. Peak aortic valve gradient 46 mmHg. Mean aortic valve gradient 27 mmHg. Moderate aortic stenosis. Calculated aortic valve area (continuity equation) is 0.9 cm2. Pulmonic Valve Normal pulmonic valve. Great Vessels Normal aortic root. The pulmonary artery is normal size. Normal inferior vena cava. Pericardium/Pleural No pericardial effusion. MMode/2D Measurements & Calculations LVIDd: 3.3 cm IVSd: 1.6 cm LVOT diam: 1.9 cm LVIDs: 2.1 cm LVPWd: 1.7 cm LVOT area: 2.7 cm2 RVDd: 2.5 cm FS: 36.7 % Ao root diam: 3.1 cm LAV(MOD-bp): 65.9 ml LA A4 area: 24.3 cm2 LAV(MOD-bp) Indexed: 31.3 ml/m2 LAV(MOD-sp2): 57.2 ml LAV(MOD-sp4): 76.6 ml LA dimension(2D): 4.2 cm RA A4 area: 13.4 cm2 Doppler Measurements & Calculations MV E max merline: 162.7 cm/sec MV V2 max: 159.9 cm/sec MV P1/2t max merline: 143.1 cm/sec MV max P.3 mmHg MV P1/2t: 88.9 msec MV V2 mean: 85.6 cm/sec MV dec slope: 471.7 cm/sec2 MV mean P.6 mmHg MV V2 VTI: 31.7 cm MVA(P1/2t): 2.5 cm2 MVA(VTI): 1.9 cm2 Ao V2 max: 338.3 cm/sec LV V1 max: 108.2 cm/sec SV(LVOT): 59.7 ml Ao max P.8 mmHg LV V1 max P.7 mmHg Ao V2 mean: 247.1 cm/sec LV V1 mean P.6 mmHg Ao mean P.0 mmHg LV V1 mean: 76.1 cm/sec Ao V2 VTI: 68.3 cm LV V1 VTI: 22.1 cm GALE(I,D): 0.87 cm2 GALE(V,D): 0.86 cm2 PA V2 max: 91.7 cm/sec ECHO/Echo Complete Interpretation Summary Normal LV size. Left ventricular systolic function is normal. The estimated ejection fraction is 60 %. Severe concentric left ventricular hypertrophy. ICD or pacer leads identified within the right ventricle. Moderate aortic stenosis. Calculated aortic valve area (continuity equation) is 0.9 cm2. Ordering Physician: Kimberly Ramos/Trip Forman Referring Physician: Jose Antonio Waterman Performed By: Danay Foley RDCS
== END ==
PROVIDERS: PCP Family Medicine; Visit Provider Physician Assistant Medical
DX: I25.10 Atherosclerotic heart disease of native coronary artery without angina pectoris (principal)
CPT/HCPCS: 93306

== ENCOUNTER 2021-01-22 05:30 | Observation (INO) | payer MEDICARE, MEDICAID, SELFPAY ==
[2021-01-06 02:41] VITALS: BMI 36.6
[2021-01-22] VITALS (11 sets, daily range): BP systolic 131–267; BP diastolic 62–157; PULSE 60–70; RESP 14–18; TEMP 36.2–36.6; O2SAT 94–100; BMI 42.0; BMI 40.1
--- NOTE | 2021-01-22 05:41 | CT_ITS ---
STUDY: CT BRAIN WITHOUT CONTRAST REASON FOR EXAM: Female, 75 years old. altered mental status RADIATION DOSAGE (If Supplied By Facility): CTDIvol = ( 44.99 ) mGy, DLP = ( 846.73 ) mGycm TECHNIQUE: Transaxial CT imaging of the brain was performed without administration of intravenous contrast material. Individualized dose optimization techniques were used for this CT. COMPARISON: CT head from 01/06/2021 FINDINGS: Normal soft tissue structures. Normal calvarium. There is mild cerebral atrophy with widening of the extra-axial spaces and ventricular dilatation. There are areas of decreased attenuation within the white matter tracts of the supratentorial brain, consistent with microvascular disease changes. Normal basal ganglia and thalami. Normal brainstem. Normal cerebellum. There is no intracranial hemorrhage. There are no findings of an acute ischemic infarction. Normal visualized paranasal sinuses. CT/Brain/Head without Contrast IMPRESSION: Chronic involutional changes of the brain. Electronically Signed: Sandro Bass MD at 6:54 EDT Tel , Service support ,
--- NOTE | 2021-01-22 05:41 | EKG12_ITS ---
Test Reason : WEAKNESS Blood Pressure : / mmHG Vent. Rate : 062 BPM Atrial Rate : 077 BPM P-R Int : 000 ms QRS Dur : 144 ms QT Int : 490 ms P-R-T Axes : 000 -36 -32 degrees QTc Int : 497 ms Atrial fibrillation with frequent ventricular-paced complexes Left axis deviation Right bundle branch block Abnormal ECG Confirmed by MARICARMEN GALINDO, MARCK ([id number]), subeditor WILLIS HAWKINS ([id number]) on 01/24/2021 10:58:41 AM Referred By: JOSEPH Confirmed By:MARCK HERNADEZ MD
--- NOTE | 2021-01-22 05:42 | RAD_ITS ---
STUDY: X-RAY CHEST REASON FOR EXAM: Female, 75 years old. altered mental status TECHNIQUE: AP COMPARISON: 01/06/2021 FINDINGS: There is a cardiac pacemaker from a left subclavian approach. The lungs are clear and expanded. There is no demonstrated pleural abnormality. There is borderline cardiomegaly. Normal mediastinum and susan. Normal visualized pulmonary arteries. Normal visualized aortic arch and descending thoracic aorta. Normal visualized thoracic spine. There is degenerative osteoarthritis of the bilateral shoulders. There is no demonstrated abnormality of the visualized soft tissue structures of the upper abdomen. RAD/Chest 1 View (Portable) IMPRESSION: No focal lung consolidative changes. No interval change. Electronically Signed: Sandro Bass MD at 6:49 EDT Tel , Service support ,
[2021-01-22 05:59] LABS: International Normalized Ratio 1.1; Prothrombin Time (Protime)PT. 13.1 SECONDS (11.7-14.9)
[2021-01-22 06:00] LABS: Partial Thromboplast Time 27.6 Seconds (24.1-36.2)
[2021-01-22 06:06] LABS: ALB/GLOB Ratio 0.7 RATIO (0.9-2.4); AST(SGOT) 25 U/L (15-37); Alanine Aminotransfer ALT/SGPT 33 U/L (13-56); Albumin, Serum 2.7 g/dL (3.2-5.0); Alkaline Phosphatase 106 U/L (45-117); Anion Gap 5 (5-15); BUN 20 mg/dL (7-18); Calcium,Total 8.4 mg/dL (8.5-10.1); Chloride 103 mmol/L (98-107); Creatinine, Serum 1.33 mg/dL (0.55-1.02); EST Glomerular Filtration Rate 41 mL/min (>60); Est Glom Filt Rate - Afr Amer 50 mL/min (>60); Globulin 3.8 g/dL (2.2-4.2); Glucose 334 mg/dL (74-106); Potassium 3.4 mmol/L (3.5-5.1); Protein, Total 6.5 g/dL (6.4-8.2); Sodium Level 140 mmol/L (136-145)
--- NOTE | 2021-01-22 06:08 | ED.VIS.GEN ---
History of Present Illness Chief Complaint: Weakness Informant: Patient, [facility], SN[facility] Narrative: 75-year-old female from senior living was sent in after nurses reported that she had slurred speech diffuse weakness and numbness from the waist down of both legs. Reportedly this is not the first time this is happened. Difficult to understand how the history was obtained as the patient states she does not know where she is at what is happening or where she came from. No reported fever looking at her previous visits and her last admission similar presentation was found to have UTI. - Past Medical History (1) Stroke Status: Acute (2) Atherosclerosis of coronary artery without angina pectoris Status: Chronic (3) Chronic diastolic (congestive) heart failure Status: Chronic (4) Chronic renal insufficiency Status: Chronic (5) Dementia Status: Chronic (6) Essential (primary) hypertension Status: Chronic (7) History of coronary artery stent placement Status: Chronic Comment: [id number] LAD w/ 3.5 x 12 mm Taxus Express 10/23/2004; [id number] Inferolateral Marginal Branch w/ 3.0 x 9 mm [place] Stent 01/25/2011 @ [facility] (8) History of permanent cardiac pacemaker placement Status: Chronic (9) Hyperlipidemia Status: Chronic (10) Longstanding persistent atrial fibrillation Status: Chronic (11) Moderate aortic stenosis Status: Chronic (12) Sick sinus syndrome Status: Chronic Past Medical History - Allergies and Home Meds Allergies/Adverse Reactions: Allergies atorvastatin calcium [From Lipitor] Allergy (Verified 01/22/21 05:43) dont remember codeine Allergy (Verified 01/22/21 05:43) Rash iodine Allergy (Verified 01/22/21 05:43) Rash Latex, Natural Rubber Allergy (Verified 01/22/21 05:43) Rash lovastatin Allergy (Verified 01/22/21 05:43) Rash rosuvastatin calcium [From Crestor] Allergy (Verified 01/22/21 05:43) rash\ tositumomab Allergy (Verified 01/22/21 05:43) PT UNSURE OF REACTION naproxen [From Naprosyn] Adverse Reaction (Verified 01/22/21 05:43) Upset Stomach pregabalin [From Lyrica] Adverse Reaction (Verified 01/22/21 05:43) Upset Stomach Sulfa (Sulfonamide Antibiotics) Adverse Reaction (Verified 01/22/21 05:43) Upset Stomach Surgical History: hysterectomy, pacemaker implantation, - - PCI x2, thyroidectomy for goiter, left lower extremity surgery for bone cancer, pacemaker, hysterectomy. Smoking Status: Never smoker - Family History Maternal Family History: Family History (Last Reviewed 01/22/21 @ 07:[address] Antoine Muñiz DO) Other Cancer Family History: Reports: - - History of alcoholic cirrhosis Paternal Family History: Family History (Last Reviewed 01/22/21 @ 07:[address] Antoine Muñiz DO) Other Cancer Family History: Reports: Cancer - Her father had colon cancer. Sibling Family History: Family History (Last Reviewed 01/22/21 @ 07:[address] Antoine Muñiz DO) Other Cancer Family History: Reports: Cancer - Her sister had ovarian cancer., Hypertension Review of Systems ROS: Unable to Obtain Physical Exam Vital Signs/Narrative: Vital Signs Temp Pulse Resp BP Pulse Ox 01/22/21 05:31 98 F 66 14 161/109 H 100 Inital Vital Signs reviewed: Yes General: Well nourished, Well developed, Obese, No Acute Distress Head: Normocephalic, Atraumatic Eyes: Perrl, EOMI ENT: Moist mucous membranes, No rhinorrhea Neck: Supple, Nontender Cardiovascular: Regular rate, Regular rhythm, No murmurs Respiratory: No distress, CTA bilaterally, Chest nontender Abdomen: Soft, Nontender, Nondistended, Normal bowel sounds Back: Nontender, Normal Inspection Extremities: Nontender, No edema Skin: Normal color, No rash Neurological: Alert, Cranial nerves II-XII grossly intact, - - Patient is moving all 4 extremities but when I asked her to move her legs she does not. She does withdraw them to pain and then begins using them again when we move onto other testing. Diagnostic/Tx/Re-eval Clinical Impression(s) from Imaging Studies Brain CT 01/22/21 05:41 IMPRESSION: Chronic involutional changes of the brain. Electronically Signed: Sandro Bass MD at 6:54 EDT Tel , Service support , Chest X-Ray 01/22/21 05:42 IMPRESSION: No focal lung consolidative changes. No interval change. Electronically Signed: Sandro Bass MD at 6:49 EDT Tel , Service support , Laboratory Last Values WBC 9.2 K/mm3 (4.4-11.0) 01/22/21 05:40 RBC 4.53 M/mm3 (4.2-5.4) 01/22/21 05:40 Hgb 11.5 g/dL (12.0-15.0) L 01/22/21 05:40 Hct 36.9 % (37-47) L 01/22/21 05:40 MCV 81.5 fL (81-99) 01/22/21 05:40 MCH 25.4 pg (27.0-32.0) L 01/22/21 05:40 MCHC 31.2 g/dL (32-36) L 01/22/21 05:40 RDW Std Deviation 43.9 fl (35.1-43.9) 01/22/21 05:40 RDW Coeff of Candace 14.9 % (11.6-14.6) H 01/22/21 05:40 Plt Count 197 K/mm3 (150-450) 01/22/21 05:40 MPV 12.6 fl (6.2-12.0) H 01/22/21 05:40 Immature Gran % (Auto) 0.400 % (0.0-0.9) 01/22/21 05:40 Neut % (Auto) 68.5 % (47-70) 01/22/21 05:40 Lymph % (Auto) 20.6 % (19-41) 01/22/21 05:40 [place] % (Auto) 7.5 % (0-10) 01/22/21 05:40 Eos % (Auto) 2.3 % (0-5) 01/22/21 05:40 Baso % (Auto) 0.7 % (0-1) 01/22/21 05:40 Absolute Neuts (auto) 6.3 X10^3/uL (2.0-7.7) 01/22/21 05:40 Absolute Lymphs (auto) 1.90 X10^3/uL (0.83-4.51) 01/22/21 05:40 Nucleated RBC % 0 % (0-5) 01/22/21 05:40 PT 13.1 SECONDS (11.7-14.9) 01/22/21 05:40 INR 1.1 01/22/21 05:40 APTT 27.6 Seconds (24.1-36.2) 01/22/21 05:40 Sodium 140 mmol/L (136-145) 01/22/21 05:40 Potassium 3.4 mmol/L (3.5-5.1) L 01/22/21 05:40 Chloride 103 mmol/L (98-107) 01/22/21 05:40 Carbon Dioxide 32.0 mmol/L (21.0-32.0) 01/22/21 05:40 Anion Gap 5 (5-15) 01/22/21 05:40 BUN 20 mg/dL (7-18) H 01/22/21 05:40 Creatinine 1.33 mg/dL (0.55-1.02) H 01/22/21 05:40 Estim Creat Clear Calc 29.30 ml/min 01/22/21 05:40 Est GFR (MDRD) Af Amer 50 mL/min (>60) L 01/22/21 05:40 Est GFR (MDRD) Non-Af 41 mL/min (>60) L 01/22/21 05:40 BUN/Creatinine Ratio 15.0 RATIO (10-20) 01/22/21 05:40 Glucose 334 mg/dL (74-106) H 01/22/21 05:40 Calcium 8.4 mg/dL (8.5-10.1) L 01/22/21 05:40 Total Bilirubin 0.40 mg/dL (0.20-1.00) 01/22/21 05:40 AST 25 U/L (15-37) 01/22/21 05:40 ALT 33 U/L (13-56) 01/22/21 05:40 Alkaline Phosphatase 106 U/L (45-117) 01/22/21 05:40 Troponin I < 0.015 ng/mL (<0.045) 01/22/21 05:40 Total Protein 6.5 g/dL (6.4-8.2) 01/22/21 05:40 Albumin 2.7 g/dL (3.2-5.0) L 01/22/21 05:40 Globulin 3.8 g/dL (2.2-4.2) 01/22/21 05:40 Albumin/Globulin Ratio 0.7 RATIO (0.9-2.4) L 01/22/21 05:40 Urine Color Yellow (Yellow) 01/22/21 06:20 Urine Clarity Clear (Clear) 01/22/21 06:20 Urine pH 5.0 (5.0 - 8.0) 01/22/21 06:20 Ur Specific [place] 1.020 (1.002-1.030) 01/22/21 06:20 Urine Protein 15 mg/dl (Negative) H 01/22/21 06:20 Urine Glucose (UA) 1000 mg/dl (Normal) H 01/22/21 06:20 Urine Ketones Negative mg/dl (Negative) 01/22/21 06:20 Urine Occult Blood Negative /ul (Negative) 01/22/21 06:20 Urine Nitrite Negative (Negative) 01/22/21 06:20 Urine Bilirubin Negative mg/dL (Negative) 01/22/21 06:20 Urine Urobilinogen Normal mg/dl (Normal) 01/22/21 06:20 Ur Leukocyte Esterase Negative /ul (Negative) 01/22/21 06:20 Urine RBC 0 SEEN /hpf (0-5) 01/22/21 06:20 Urine WBC 0 SEEN /hpf (0-5) 01/22/21 06:20 Ur Squamous Epith Cells 0-5 SEEN /hpf (5-10) 01/22/21 06:20 Urine Bacteria 0 SEEN /hpf (None Seen) 01/22/21 06:20 Urine Mucus 0 SEEN /hpf (<or=2+) 01/22/21 06:20 - EKG Initial EKG Interpretation: Atrial Fibrillation - EKG shows atrial fibrillation with PVC. Ventricular rate is 62. - Medical Decision Making My impression of the single view chest x-ray is no acute disease. CT the brain negative. Basic blood work shows hyperglycemia. Urinalysis is normal. Patient's exam is very inconsistent. I do not feel that it is likely that this is acute stroke. I do not a clear etiology for encephalopathy. Her blood pressure readings have been very high but question if this is due to the placement of the blood pressure cuff which has slid down to her elbow. Our hospitalist Dr. Muñiz has evaluated the patient and she will be admitted. ED Disposition - Plan for ED Patient: Disposition: Acute Care Hospital [facility] Diagnosis: Encephalopathy acute, Hyperglycemia due to diabetes mellitus, Dementia
[2021-01-22 06:14] LABS: Absolute Neutrophil Count 6.3 X10^3/uL (2.0-7.7); Basophil# 0.06 X10^3/uL; Basophil% 0.7 % (0-1); Eosinophil# 0.21 X10^3/uL; Eosinophils% 2.3 % (0-5); Hematocrit 36.9 % (37-47); Hemoglobin 11.5 g/dL (12.0-15.0); Lymphocyte % 20.6 % (19-41); Mean Corp Hgb Conc 31.2 g/dL (32-36); Mean Corpuscular Hgb 25.4 pg (27.0-32.0); Mean Corpuscular Volume 81.5 fL (81-99); Mean Platelet Vol. 12.6 fl (6.2-12.0); Monocyte# 0.69 X10^3/uL; Monocyte% 7.5 % (0-10); NRBC Flagged by Analyzer 0 % (0-5); Neutrophil # 6.32 X10^3/uL (2.7-7.7); Neutrophil % 68.5 % (47-70); Platelet Count 197 K/mm3 (150-450); RBC Distribution Width CV 14.9 % (11.6-14.6); RBC Distribution Width SD 43.9 fl (35.1-43.9); Red Blood Count 4.53 M/mm3 (4.2-5.4); White Blood Count 9.2 K/mm3 (4.4-11.0)
[2021-01-22 06:28] LABS: Color, Urine Yellow (Yellow); Glucose, Dipstick 1000 mg/dl (Normal); Ketone-Dipstick Negative (Negative); Leukocyte Esterase-Dipstick Negative /ul (Negative); Nitrite-Dipstick Negative (Negative); Occult Blood-Urine Negative /ul (Negative); Protein-Dipstick 15 mg/dl (Negative); Urine Bilirubin Dipstick Negative (Negative); Urine Clarity Clear (Clear); Urine Urobilinogen Normal (Normal)
[2021-01-22 06:30] LABS: Bacteria 0 SEEN /hpf (None Seen); Mucous, Urine 0 SEEN /hpf (<or=2+); Red Blood Cells-Urine 0 SEEN /hpf (0-5); White Blood Cells 0 SEEN /hpf (0-5)
[2021-01-22 06:34] LABS: Squamous Epithelial Cells - UA 0-5 SEEN /hpf (5-10)
--- NOTE | 2021-01-22 07:09 | NURSING ---
DR LORRAINE RUIZ
--- NOTE | 2021-01-22 07:15 | NURSING ---
MED SURG OBS JOPPERI ENCEPHALOPATHY
--- NOTE | 2021-01-22 07:17 | NURSING ---
DR PETERS IN ER
--- NOTE | 2021-01-22 07:52 | PCM.HP.STD ---
Problem List (1) Hypertensive emergency Status: Acute (2) Acute encephalopathy Status: Acute Comment: secondary to UTI (3) Stroke Status: Acute Qualifiers: CVA mechanism: unspecified Qualified Code(s): I63.9 - Cerebral infarction, unspecified (4) Chronic renal insufficiency Status: Chronic (5) Dementia Status: Chronic (6) Hyperglycemia due to diabetes mellitus Status: Chronic (7) Hypertensive urgency Status: Acute (8) Moderate aortic stenosis Status: Chronic (9) Noncompliance Status: Chronic (10) Debility Status: Chronic (11) Hyperglycemia Status: Chronic (12) Metabolic encephalopathy Status: Acute (13) History of permanent cardiac pacemaker placement Status: Chronic (14) Sick sinus syndrome Status: Chronic (15) Longstanding persistent atrial fibrillation Status: Chronic (16) Atherosclerosis of coronary artery without angina pectoris Status: Chronic Qualifiers: Coronary Disease-Associated Artery/Lesion type: [place] artery [place] vs. transplanted heart: [place] heart Qualified Code(s): I25.10 - Atherosclerotic heart disease of [place] coronary artery without angina pectoris (17) History of coronary artery stent placement Status: Chronic Comment: [id number] LAD w/ 3.5 x 12 mm Taxus Express 10/23/2004; [id number] Inferolateral Marginal Branch w/ 3.0 x 9 mm [place] Stent 01/25/2011 @ [facility] (18) Right bundle branch block (RBBB) Status: Chronic (19) Chronic diastolic (congestive) heart failure Status: Chronic (20) Nonrheumatic aortic (valve) stenosis Status: Chronic (21) Essential (primary) hypertension Status: Chronic (22) Hyperlipidemia Status: Chronic Qualifiers: Hyperlipidemia type: unspecified Qualified Code(s): E78.5 - Hyperlipidemia, unspecified (23) Bone cancer Status: Chronic History of Present Illness Date of Admission: 01/22/21 Chief Complaint: slurred speech. weakness The patient is a 75 year old F who was noted by staff to have slurred speech and told the staff that she could not move her legs. They are concerned and patient was sent into the emergency room. Upon further investigation, patient states that time she has difficulty getting the words out. This is not a new phenomenon but has progressively gotten worse over the past several months. Patient does not complain of numbness in her legs but does complain of pain and weakness in her lower extremities. Patient also does complain of weakness in her hands and she will drop things intermittently but not consistently. The patient had a CAT scan of her head that showed no acute process. Blood pressure was initially 161/109 but when I arrived in her room, systolic blood pressure initially read at 242, then 249 and then 262. Discussed with emergency room physician and patient would receive 20 mg of IV hydralazine. [] Past Medical History Past Medical History (Chronic Problems): Chronic Problems (Last Reviewed 01/05/21 @ 10:36 by Jennifer Louis) Chronic renal insufficiency (Chronic) Dementia (Chronic) Hyperglycemia due to diabetes mellitus (Chronic) Moderate aortic stenosis (Chronic) Noncompliance (Chronic) Debility (Chronic) Hyperglycemia (Chronic) History of permanent cardiac pacemaker placement (Chronic 03/05/17) Sick sinus syndrome (Chronic) Longstanding persistent atrial fibrillation (Chronic) Atherosclerosis of coronary artery without angina pectoris (Chronic) History of coronary artery stent placement (Chronic 01/25/11) [id number] LAD w/ 3.5 x 12 mm Taxus Express 10/23/2004; [id number] Inferolateral Marginal Branch w/ 3.0 x 9 mm [place] Stent 01/25/2011 @ [facility] Right bundle branch block (RBBB) (Chronic) Chronic diastolic (congestive) heart failure (Chronic) Nonrheumatic aortic (valve) stenosis (Chronic) Essential (primary) hypertension (Chronic) Hyperlipidemia (Chronic) Bone cancer (Chronic) Medical History: Medical History (Last Reviewed 01/22/21 @ 07:[address] Antoine Muñiz, DO) Moderate aortic stenosis (Chronic) I35.0 Sick sinus syndrome (Chronic) I49.5 Longstanding persistent atrial fibrillation (Chronic) I48.11 Atherosclerosis of coronary artery without angina pectoris (Chronic) I25.10 Right bundle branch block (RBBB) (Chronic) I45.10 Chronic diastolic (congestive) heart failure (Chronic) I50.32 Nonrheumatic aortic (valve) stenosis (Chronic) I35.0 Essential (primary) hypertension (Chronic) I10 Hyperlipidemia (Chronic) E78.5 Bone cancer (Chronic) C41.9 CKD (chronic kidney disease) stage 3, GFR 30-59 ml/min Chronic back pain M54.9, G89.29 Goiter E04.9 History of urinary incontinence Z87.898 Hypothyroidism E03.9 Morbid obesity E66.01 Osteoarthritis PVD (peripheral vascular disease) I73.9 AISHWARYA 02/2019 Mild Sleep apnea G47.30 Type II diabetes mellitus E11.9 Cholelithiasis K80.20 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 L97.912 s/p traumatic hematoma Allergies atorvastatin calcium [From Lipitor] Allergy (Verified 01/22/21 05:43) dont remember codeine Allergy (Verified 01/22/21 05:43) Rash iodine Allergy (Verified 01/22/21 05:43) Rash Latex, Natural Rubber Allergy (Verified 01/22/21 05:43) Rash lovastatin Allergy (Verified 01/22/21 05:43) Rash rosuvastatin calcium [From Crestor] Allergy (Verified 01/22/21 05:43) rash\ tositumomab Allergy (Verified 01/22/21 05:43) PT UNSURE OF REACTION naproxen [From Naprosyn] Adverse Reaction (Verified 01/22/21 05:43) Upset Stomach pregabalin [From Lyrica] Adverse Reaction (Verified 01/22/21 05:43) Upset Stomach Sulfa (Sulfonamide Antibiotics) Adverse Reaction (Verified 01/22/21 05:43) Upset Stomach Home Medications: Ambulatory Orders Medication Instructions Recorded Metoprolol Succinate [Toprol Xl] 50 mg PO DAILY 10/11/17 Prasugrel HCl 10 mg PO DAILY 06/04/18 Duloxetine HCl 30 mg PO DAILY 11/18/18 Isosorbide Mononitrate [Imdur] 90 mg PO DAILY 02/29/20 Levothyroxine [Synthroid] 50 mcg PO DAILY 02/29/20 furosemide 20 mg tablet 20 mg PO BID tab 04/19/20 levetiracetam 500 mg tablet 500 mg PO BID tab 04/19/20 lisinopril 10 mg tablet 10 mg PO DAILY tab 04/19/20 Omeprazole [Prilosec] 20 mg PO DAILY 05/18/20 Acetaminophen [Tylenol Tablet] 650 mg PO Q6H PRN PRN tab 05/22/20 Magnesium Hydroxide [Milk Of 30 ml PO DAILY PRN PRN udc 05/22/20 Magnesia] Fluticasone 0.05% [Flonase Nasal 2 spray NARES BID 12/13/20 [place]] Nitroglycerin (INPATIENT USE) 0.4 mg SUBLINGUAL X1 12/13/20 [Nitrostat] Prednisolone Acetate [Pred Forte] 3 drp OP 4X/DAY 12/13/20 atorvastatin 20 mg tablet 20 mg PO QHS 01/05/21 bisacodyl 10 mg rectal suppository 10 mg RC QHS PRN 01/05/21 insulin glargine 100 unit/mL (3 60 unit SC QPM ml 01/05/21 mL) subcutaneous pen insulin lispro 100 unit/mL 15 unit SC TID ml 01/05/21 subcutaneous pen latanoprost 0.005 % eye drops 1 drp OPHTHALMIC QHS 01/05/21 sennosides 8.6 mg capsule 8.6 mg PO BID PRN 01/05/21 Memantine HCl 10 mg PO BID #1 tablet 01/06/21 Bisacodyl [Dulcolax] 5 mg PO BID PRN PRN 01/22/21 Cetirizine HCl [Zyrtec] 10 mg PO DAILY 01/22/21 Donepezil HCl [Aricept] 10 mg PO QHS 01/22/21 Polyethylene Glycol 3350 [Miralax] 17 gm PO DAILY 01/22/21 Sodium Phosphate,[place]-Dibasic 133 ml RC PRN PRN 01/22/21 [Enema Ready To Use] Surgical History: Surgical History (Last Reviewed 01/22/21 @ 07:[address] Antoine Muñiz, DO) History of permanent cardiac pacemaker placement (Chronic) Onset Date: 03/05/17 Z95.0 History of coronary artery stent placement (Chronic) Onset Date: 01/25/11 Z95.5 QQR-ESW-Eqpy LAD w/ 3.5 x 12 mm Taxus Express 10/23/2004; [id number] Inferolateral Marginal Branch w/ 3.0 x 9 mm [place] Stent 01/25/2011 @ [facility] History of hysterectomy Z90.710 History of loop recorder Onset Date: 2013 Z98.890 History of thyroidectomy Z90.09 Surgical History: hysterectomy, pacemaker implantation, - - PCI x2, thyroidectomy for goiter, left lower extremity surgery for bone cancer, pacemaker, hysterectomy. 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 Antoine Muñiz DO) Other Cancer History Items: - - History of alcoholic cirrhosis Paternal Family History: Family History (Last Reviewed 01/22/21 @ 07:[address] Antoine Muñiz DO) Other Cancer History Items: Cancer - Her father had colon cancer. Sibling Family History: Family History (Last Reviewed 01/22/21 @ 07:[address] Antoine Muñiz DO) Other Cancer History Items: Cancer - Her sister had ovarian cancer., Hypertension Review of Systems Constitutional: Reports: Weakness. Denies: Anorexia, Chills, Fever, Malaise Eyes: Reports: Blurred vision - Chronic in the left eye.. Denies: Double vision HEENT: Denies: Head Aches, Sinus Congestion, Sinus Drainage Cardiovascular: Denies: Chest Pain, Palpitations Respiratory: Denies: Cough, Shortness of breath at rest, Sputum production Gastrointestinal: Reports: Abdominal Pain. Denies: Nausea, Vomiting Genitourinary: Denies: Dysuria Musculoskeletal: Denies: Joint Pain, Joint Tenderness Skin: Denies: Rash, Wounds Neurological: Reports: Balance problems, Blurred vision, Slurred speech, Incoordination, - - Difficulty speaking at times particular when she is tired. Psychiatric: Denies: Anxiety, Depression Endocrine: Denies: Change in Body Habitus, Heat/ Cold Intolerance Hematologic/ Lymphatic: Denies: Easy Bruising, Easy Bleeding, Hx of blood clot Comment: All review of systems were negative except as mentioned above in the history of present illness and the other review of systems. VTE Information - Inpt Only VTE Present on Admission: No VTE Mechan Device Prophylaxis: None VTE Pharm Prophylaxis ordered?: No Reason prophylaxis not ordered:: Treatment Not Indicated Patient Problems: Active and Suspected Problems (Last Reviewed 01/05/21 @ 10:36 by Jennifer Louis) Acute encephalopathy (Acute) secondary to UTI Stroke (Acute) - Physical Exam Vitals/I&O's: Vital Signs Temp Pulse Resp BP Pulse Ox 36.6 C 61 17 267/157 H 100 01/22/21 05:31 01/22/21 07:42 01/22/21 07:42 01/22/21 07:42 01/22/21 07:42 Oxygen Delivery Method Room Air Weight: 107.7 kg Body Mass Index (BMI) 42.0 Finger Stick Blood Glucose 336 General: Alert, - - Oriented to self and place. HEENT: Atraumatic, PERRLA, Normocephalic, - - Impaired vertical saccades Oral: Moist Mucosa, No Gingival or Mucosal Lesions/ Ulcerations Neck: No Nodes, Thyroid Normal Size and Texture Lungs: Clear to auscultation, Normal air movement, No rhonchi, No wheeze, No rales Cardiovascular: Regular rate, Regular Rhythm, Normal S1, Normal S2 Abdomen: Bowel Sounds Present, Soft, Non Tender, Non-Distended, No Hepato-splenomegaly Extremities: No edema, No Calf Tenderness Skin: No rashes, No breakdown Musculoskeletal: No Tenderness to Palpation of Joints or Extremities, No Muscle Wasting Neurological: Cranial nerves II-XII grossly intact, Slurred Speech - But coherent, - - Strength 5-5 in the upper extremities bilaterally. 5-5 in the right lower extremity and 4-5 in the left lower extremity. Psych/Mental Status: Normal Affect, Appropriate Laboratory Results 01/22/21 05:40: WBC 9.2, RBC 4.53, Hgb 11.5 L, Hct 36.9 L, MCV 81.5, MCH 25.4 L, MCHC 31.2 L, RDW Std Deviation 43.9, RDW Coeff of Candace 14.9 H, Plt Count 197, MPV 12.6 H, Immature Gran % (Auto) 0.400, Neut % (Auto) 68.5, Lymph % (Auto) 20.6, [place] % (Auto) 7.5, Eos % (Auto) 2.3, Baso % (Auto) 0.7, Absolute Neuts (auto) 6.3, Absolute Lymphs (auto) 1.90, Nucleated RBC % 0 01/22/21 05:40: PT 13.1, INR 1.1, APTT 27.6 01/22/21 05:40: Sodium 140, Potassium 3.4 L, Chloride 103, Carbon Dioxide 32.0, Anion Gap 5, BUN 20 H, Creatinine 1.33 H, Estim Creat Clear Calc 29.30, Est GFR (MDRD) Af Amer 50 L, Est GFR (MDRD) Non-Af 41 L, BUN/Creatinine Ratio 15.0, Glucose 334 H, Calcium 8.4 L, Total Bilirubin 0.40, AST 25, ALT 33, Alkaline Phosphatase 106, Troponin I < 0.015, Total Protein 6.5, Albumin 2.7 L, Globulin 3.8, Albumin/Globulin Ratio 0.7 L 01/22/21 06:20: Urine Color Yellow, Urine Clarity Clear, Urine pH 5.0, Ur Specific [place] 1.020, Urine Protein 15 H, Urine Glucose (UA) 1000 H, Urine Ketones Negative, Urine Occult Blood Negative, Urine Nitrite Negative, Urine Bilirubin Negative, Urine Urobilinogen Normal, Ur Leukocyte Esterase Negative, Urine RBC 0 SEEN, Urine WBC 0 SEEN, Ur Squamous Epith Cells 0-5 SEEN, Urine Bacteria 0 SEEN, Urine Mucus 0 SEEN Clinical Impression(s) from Imaging Studies Brain CT 01/22/21 05:41 IMPRESSION: Chronic involutional changes of the brain. Electronically Signed: Sandro Bass MD at 6:54 EDT Tel , Service support , Chest X-Ray 01/22/21 05:42 IMPRESSION: No focal lung consolidative changes. No interval change. Electronically Signed: Sandro Bass MD at 6:49 EDT Tel , Service support , Assessment/Plan All Active Problems (Last Reviewed 01/05/21 @ 10:36 by Jennifer Louis) Acute encephalopathy (Acute) Stroke (Acute) Hypertensive urgency (Acute) Hypertensive emergency (Acute) Metabolic encephalopathy (Acute) 1. Hypertensive emergency Systolic blood pressure of 262. Patient to receive 2 mg of IV hydralazine in the emergency room. Blood pressure is better, around 190 or less, patient be admitted to the progressive care unit for further evaluation. Plan: will increase the patient's lisinopril from 10 to 20 mg daily and observe him to see which additional medications may need to be added. 2. Debility Patient notes that she does drop things but it is intermittent. Also complains of weakness in her legs. Patient did have CAT scan of her neck last month that showed degenerative changes. Plan: Given this progressive weakness, will recheck an MRI of her brain, patient had 1 performed in February 2020 and also an MRI of her neck to rule out a radicular process.. Patient does have a history of pacemaker but that was placed in 2016 an MRI was performed in 2019. 3. Slurred speech Patient may have some underlying dementia Patient does have slurring her speech but may be due to her dentures but also possible neurodegenerative process but also could be related with hypertensive encephalopathy. Plan: Check an MRI of her brain to rule out any other acute process. Such as stroke. 4. Diabetes mellitus type 2 Last A1c was 9.4 from January 06 Plan: Continue with basal and prandial insulin. Add sliding scale insulin. 5. Dementia Complicates overall care and coordination Plan: Continue with Namenda and donezepil. 6. VTE prophylaxis: Not indicated given observation status 7. Advanced care planning: Discussed with the patient. Patient was to be DNR Comfort Care arrest. She is unsure of intubation at this time. So we will leave her with intubation in the event of a respiratory arrest. OBSV E&M: [id number] Initial observation care L3
--- NOTE | 2021-01-22 07:52 | NURSING ---
PCU HYPERTENSIVE URGENCY LORRAINE
--- NOTE | 2021-01-22 09:50 | CASEMGMT ---
Addendum entered by Rhea Soto 01/22/21 13:03: SW in to speak with pt. SW introduced self and role at [facility]. PT is alert and orientated x2, unsure of time, is alert to self and place. Pt confirms she came from [facility] and plans to return. Pt confirms her daughter Cinthia is HCPOA. SW informed pt that HCPOA is on file at [facility] but not the LW. Pt states she hasn't completed a LW. SW faxed updated clinicals to [facility]. Plan: Return to [facility] pending pre-cert Original Note: Social Work Note Pt is listed as being from [facility]. MINAL placed a call to Priya at [facility]. Priya states pt is skilled, is able to return skilled, pt will need a pre-cert. SW to fax clinicals. 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
[2021-01-22 12:30] LABS: Bedside Glucose 237 mg/dL (70-110)
[2021-01-22] MEDS: 0.9% Normal Saline 1,000 ML 75 ML IV (13:47)
[2021-01-22] MEDS: prednisoLONE eye drops (5 mL) 1 DROP OPTH.BTL 3 DRP EACH EYE ×3 (13:48→21:30)
[2021-01-22] MEDS: Fluticasone 0.05% 1 SPRAY NASAL.SRY NASAL ×2 (13:53→21:29)
[2021-01-22] MEDS: Insulin Lispro 100 UNIT/ML INSULN.PEN SC ×2 (14:03→16:53)
[2021-01-22] MEDS: Potassium Chloride 10mEq/100mL 10 MEQ/100 ML IV.SOLN. 100 MEQ IV BOLUS (14:04)
[2021-01-22 14:05] LABS: Bedside Glucose 202 mg/dL (70-110)
--- NOTE | 2021-01-22 14:10 | CASEMGMT ---
Social Work Note Per shagger questions, pt has completed HCPOA and LW and provided documents to [facility]. SW reviewed chart, only HCPOA is on file. SW printed off document and placed on pt's chart. SW asked pt about LW, pt tells this worker that she hasn't completed LW. Rhea Soto PUMPER GAUGER, CHEF KITCHEN MANAGER
--- NOTE | 2021-01-22 17:02 | SP.MBSS_ITS ---
Modified Barium Swallow - Patient Information Study Date: 01/22/21 Study Time: 15:15 Direct Billable Minutes: 127 Total Minutes procedure & reportin Diagnosis: Dysphagia Referring Physician: Antoine Muñiz Reason for Referral: Clinical Bedside Swallow Evaluation compelted w/ patient demonstrating audible swallow, multiple swallows utilized d/t reported sensation of bolus sticking/not going down. Eructation/belching and coughing noted post deglutiton. Suspect pharyngeal residue vs. PES dysfunction w/ further assessment of swallow function under fluoroscopy recommended prior to advancing diet. Medical History: Pt known to [facility] department from recent acute care admisison 12/2020 and prior TCU stay in 2019. Patient was on a minced and moist texture/thin [facility] to this admission. Order received per Chloe DAS d/t concern for aspiration risk - hx CVA/dementia, edentulous uppers, minimal lower dentition, patient reported difficulty swallowing and coughing w/ liquids. The patient is a 75 year old F who was noted by staff to have slurred speech and told the staff that she could not move her legs. They are concerned and patient was sent into the emergency room. Upon further investigation, patient states that time she has difficulty getting the words out. This is not a new phenomenon but has progressively gotten worse over the past several months. PMHx: Chronic renal insufficiency (Chronic); Dementia (Chronic); Hyperglycemia due to diabetes mellitus (Chronic); Moderate aortic stenosis (Chronic); Noncompliance (Chronic); Debility (Chronic); Hyperglycemia (Chronic); History of permanent cardiac pacemaker placement (Chronic 03/05/17); Sick sinus syndrome (Chronic); Longstanding persistent atrial fibrillation (Chronic); Atherosclerosis of coronary artery without angina pectoris (Chronic); History of coronary artery stent placement (Chronic 01/25/11); VWU-WUR-Acea LAD w/ 3.5 x 12 mm Taxus Express 10/23/2004; [id number]-[id number] Inferolateral Marginal Branch w/ 3.0 x 9 mm Ambrose Stent 01/25/2011 @ [facility]; Right bundle branch block (RBBB) (Chronic); Chronic diastolic (congestive) heart failure (Chronic); Nonrheumatic aortic (valve) stenosis (Chronic); Essential (primary) hypertension (Chronic); Hyperlipidemia (Chronic); Bone cancer (Chronic) Mental Status: WNL Respiratory Status: Oxygenating on Room Air - Penetration-Aspiration Scale Penetration-Aspiration Scale: OBJECTIVE ASSESSMENT OF SWALLOW FUNCTION (QUANTITATIVE ? PER TRIAL): PENETRATION / ASPIRATION SCALE (SALDIVAR): 1 = does not enter airway 2 = enters airway/above vocal folds/ejected 3 = enters airway/above vocal folds/not ejected 4 = enters airway/contacts vocal folds/ejected 5 = enters airway/contacts vocal folds/not ejected 6 = enters airway/below vocal folds/ejected 7 = enters airway/below vocal folds/not ejected despite effort 8 = enters airway/below vocal folds/no effort - Penetration-Aspiration Scale Score Thin Liquid via teaspoon Result: 1= does not enter airway Thin Liquid via teaspoon Trial 2 Result: 2= enter airway/above vocal folds/ejected Thin Liquid via small single sip from cup Result: 1= does not enter airway Thin Liquid via large single sip from cup Result: 2= enter airway/above vocal folds/ejected Thin Liquid via single sip from straw Result: 1= does not enter airway Pudding Result: 1= does not enter airway Pudding Trial 2 Result: 1= does not enter airway Comment: screened for esophageal clearance Thin Liquid via single sip from straw Trial 2 Result: 5= enters airways/contacts vocal folds/not ejected Thin Liquid via single sip from straw Trial 3 Result: 1= does not enter airway Cookie Result: 1= does not enter airway Thin Liquid via small single sip from cup Trial 2 Result: 1= does not enter airway - Oral Phase Labial Seal: No Labial Escape Tongue Control During Bolus Hold: Cohesive bolus between tongue to palatal seal Bolus Preparation/Mastication: Disorganized chewing/mashing with solid pieces of bolus unchewed Bolus Transport/Lingual Motion: Slowed tongue motion Oral Residue: Trace residue lining oral structures - Pharyngeal Phase Initiation of Pharyngeal Swallow: Bolus head in pyriforms Soft Palate Elevation: No bolus between soft palate and pharyngeal wall Laryngeal Elevation: Partial superior movement thyroid cart/partial apprx aryt- epig petiole Anterior Hyoid Excursion: Partial anterior movement Epiglottic Movement: Partial inversion Laryngeal Vestibule Closure at Height of Swallow: Incomplete; narrow column of air/contrast in laryngeal vestibule Pharyngeal Stripping Wave: Present - diminished Pharyngoesophageal Segment Opening: Complete distension and complete duration; no obstruction of flow Tongue Base Retraction: Narrow column of contrast between tongue base & post. pharyngeal wall Pharyngeal Residue: Collection of residue within or on pharyngeal structures - Esophageal Phase Esophageal Clearance: Esophageal retention w/ retrograde flow below pharyngoesophageal seg. - Treatment Strategies Effects of treatment strategies attemped:: double/multiple swallows = effective elimination of straws = effective - Diagnosis/Impression Diagnosis: mild oropharyngeal dysphagia Impression: Adequate oral containment w/ sufficient lingual control prior to A-P bolus transfer. Prolonged and disorganized mastication d/t limited dentition. Delayed pharyngeal swallow onset timing w/ contrast reaching the pyriform sinuses and penetrating in top the laryngeal vestibule during deglutition. Poor epiglottic i nversion d/t reduced anterior hyoid and superior thyrohyoid movement w/ the tip of the epiglottis curling against the posterior pharyngeal wall at the point of maximal inversion, resulting in moderate vallecular residue. Diminished pharyngeal stripping wave contributed to vallecular, aryepiglottic fold and pyriform residue retention w/ suboptimal pressure to clear the pharynx. Adequate PES distention/duration. Esophageal retention of contrast w/ minimal retrograde flow below the PES was noted when screening for esophageal clearance. - Recommendations Diet: Mechanical Soft Textures, Thin Liquids Comment: Minced and Moist Textures/Thin liquids w/ the following recommended aspiration precautions in place: assist w/ tray set up/positioning, distant supervision, small bites/sips, no straws, double swallow, slow rate of intake, seated upright at 90 degrees during and for 30-60 minutes after intake (GERD precautions) Supervision: Distant Supervision Recommend Repeat Modified Barium Swallow: TBD Need for Skilled Speech Therapy Services: Yes Comment: Patient requires intensive skilled speech-language intervention targeting: * training and implementation of recommended compensatory strategies * training and implementation of recommended oropharyngeal strengthening exercises to facilitate improved swallow onset timing, laryngeal vestibule closure / pressure, epiglottic inversion, pharyngeal contraction/stripping wave Education Completed: 1. Described result of evaluation., 2. Pt understands evaluation & agrees with goals and treatment plan., 7. Pt requires further education on strategies & risks. Comment: Results and recommendations were discussed with the patient immediately following MBS completion. Images were reviewed with the patient to improve un derstanding of the deficits identified and rationale for implementation of the recommended compensatory strategies. Education well received. Nursing communication entered along w/ diet order to communicate recommendations to nursing staff. - Status Active ST Patient: Active
[2021-01-22] MEDS: Furosemide 20 MG Tablet PO (17:33)
[2021-01-22] MEDS: DULoxetine Hcl 30 MG Capsule PO (17:35)
[2021-01-22] MEDS: Isosorbide Mononitrate 30 MG Tablet 90 MG PO (17:36)
[2021-01-22] MEDS: Metoprolol(XL)Succ 50 MG Tablet PO (17:38)
[2021-01-22] MEDS: Pantoprazole Sodium 20 MG Tablet PO (17:38)
[2021-01-22] MEDS: Lisinopril 20 MG Tablet PO (17:38)
[2021-01-22] MEDS: amLODIPine 5 MG Tablet PO (17:39)
[2021-01-22] MEDS: Donepezil HCl 5 MG Tablet 10 MG PO (21:29)
[2021-01-22] MEDS: Memantine Hydrochloride 5 MG Tablet 10 MG PO (21:30)
[2021-01-22] MEDS: Latanoprost 0.005% 1 Bottle 1 DRP OPHTHALMIC (21:30)
[2021-01-22] MEDS: Atorvastatin Calcium 20 MG Tablet PO (21:30)
[2021-01-22] MEDS: levETIRAcetam 500 MG Tablet PO (21:36)
[2021-01-22 23:26] LABS: Bedside Glucose 220 mg/dL (70-110)
[2021-01-22 23:26] LABS: Bedside Glucose 177 mg/dL (70-110)
[2021-01-23] VITALS (7 sets, daily range): BP systolic 116–152; BP diastolic 45–78; PULSE 68–89; RESP 16–18; TEMP 36.6–36.9; O2SAT 93–100
[2021-01-23] MEDS: Levothyroxine 50 MCG Tablet PO (05:47)
[2021-01-23 06:50] LABS: Anion Gap 5 (5-15); BUN 16 mg/dL (7-18); BUN/Creat Ratio 14.8 RATIO (10-20); Calcium,Total 8.6 mg/dL (8.5-10.1); Chloride 108 mmol/L (98-107); Creatinine, Serum 1.08 mg/dL (0.55-1.02); EST Glomerular Filtration Rate 52 mL/min (>60); Est Glom Filt Rate - Afr Amer 63 mL/min (>60); Glucose 186 mg/dL (74-106); Potassium 3.9 mmol/L (3.5-5.1); Sodium Level 141 mmol/L (136-145)
[2021-01-23] MEDS: Insulin Lispro 100 UNIT/ML INSULN.PEN 15 UNIT SC ×3 (10:00→16:54)
[2021-01-23] MEDS: Insulin Lispro 100 UNIT/ML INSULN.PEN SC ×2 (10:00→16:54)
[2021-01-23] MEDS: Loratadine 10 MG Tablet PO (10:03)
[2021-01-23] MEDS: Metoprolol(XL)Succ 50 MG Tablet PO (10:04)
[2021-01-23] MEDS: levETIRAcetam 500 MG Tablet PO (10:04)
[2021-01-23] MEDS: Memantine Hydrochloride 5 MG Tablet 10 MG PO (10:05)
[2021-01-23] MEDS: Isosorbide Mononitrate 30 MG Tablet 90 MG PO (10:05)
[2021-01-23] MEDS: Polyethylene Glycol 3350 17 GM PACKET PO (10:05)
[2021-01-23] MEDS: Furosemide 20 MG Tablet PO ×2 (10:05→18:02)
[2021-01-23] MEDS: Fluticasone 0.05% 1 SPRAY NASAL.SRY NASAL (10:06)
[2021-01-23] MEDS: prednisoLONE eye drops (5 mL) 1 DROP OPTH.BTL 3 DRP EACH EYE ×2 (10:06→13:59)
[2021-01-23] MEDS: Lisinopril 20 MG Tablet PO (10:12)
[2021-01-23] MEDS: amLODIPine 5 MG Tablet PO (10:12)
[2021-01-23] MEDS: DULoxetine Hcl 30 MG Capsule PO (10:12)
[2021-01-23] MEDS: Pantoprazole Sodium 20 MG Tablet PO (10:12)
--- NOTE | 2021-01-23 10:46 | CASEMGMT ---
THIAGO CM in to discuss VIGIL form with patient. RN CM explained VIGIL form, patient voiced understanding. Pt signed form and filed in chart. Pt provided with a copy of signed VIGIL form. Patient had no further questions or concerns at this time.
--- NOTE | 2021-01-23 12:00 | MRI_ITS ---
STUDY: MRI CERVICAL SPINE WITHOUT CONTRAST REASON FOR EXAM: Female, 75 years old. weakness TECHNIQUE: Standardized fat and water weighted pulse sequences were obtained in the sagittal and axial planes. COMPARISON: CT 12/13/2020 FINDINGS: Normal foramen magnum and brainstem-cervical cord junction. Normal craniovertebral junction. Normal anterior atlantoaxial articulation. Normal odontoid process. Normal cervical lordosis. Normal vertebral bodies and posterior osseous elements. C2-3: Normal endplates. Normal disc height, signal and morphology. Normal central canal and intervertebral neural foramina. C3-4: Moderate bilobed disc osteophyte complex and left uncovertebral hypertrophy produces moderate spinal stenosis with abutment the central spinal cord and mild left neural foraminal stenosis. C4-5: Large broad disc osteophyte complex produces severe spinal stenosis with effacement of the central spinal cord and left hemicord with mild bilateral neural foraminal stenosis. C5-6: Moderate broad disc osteophyte complex asymmetric to left produces moderate spinal stenosis with abutment of the left hemicord and mild left neural foraminal stenosis. C6-7: Normal endplates. Normal disc height, signal and morphology. Normal central canal and intervertebral neural foramina. C7-T1: Normal endplates. Normal disc height, signal and morphology. Normal central canal and intervertebral neural foramina. Normal cervical cord. Normal visualized soft tissue structures. MRI/Spine Cervical (Routine) IMPRESSION: Moderate degenerative disc disease of the mid cervical spine with cord compression at C4/C5 Electronically Signed: Braxton Arredondo MD at 14:10 EDT Tel , Service support ,
--- NOTE | 2021-01-23 12:00 | MRI_ITS ---
STUDY: MRI BRAIN WITHOUT CONTRAST REASON FOR EXAM: Female, 75 years old. encephalopathy TECHNIQUE: Standardized multiplanar fat and water weighted pulse sequences were obtained. COMPARISON: CT 01/22/2021, MRI 03/02/2020 FINDINGS: There is moderate cerebral atrophy with widening of the extra-axial spaces and ventricular dilatation. There are multiple white matter hyperintensities, distributed throughout the deep white matter tracts of the cerebral hemispheres, consistent with moderate chronic white matter ischemic changes. There is no evidence for recent intracranial ischemia or other cause of cytotoxic edema on diffusion weighted imaging (DWI). Normal T2* images of the brain without demonstrated susceptibility artifact. There is no demonstrated hemosiderin stain. Normal bilateral basal ganglia. Normal thalami. There is no extra-axial fluid accumulation. Normal flow voids within the major intracranial circulation suggesting patency by spin echo criteria. Normal sella turcica, pituitary gland, infundibular stalk, optic chiasm and hypothalamus. Normal tectal plate and pineal gland. There are chronic white matter ischemic changes of the sherice. The midbrain and medulla are otherwise normal. Normal cerebellum. Normal basal cisterns. Normal bilateral temporal bones. Normal bilateral internal auditory canals. There are bilateral ocular lens implants with otherwise normal intraorbital contents. Normal visualized paranasal sinuses. Normal calvarium and skull base. Normal visualized soft tissue structures. Normal visualized upper cervical spine. MRI/Brain without Contrast IMPRESSION: Involutional changes of the brain, as described above. No acute infarct. Electronically Signed: Braxton Arredondo MD at 13:56 EDT Tel , Service support ,
--- NOTE | 2021-01-23 12:03 | CASEMGMT ---
Addendum entered by Rhea Soto 01/23/21 15:43: Pt is ready for discharge back to [facility] today. MINAL faxed completed discharge paperwork to [facility] [place] [facility] including transfer to extended care facility, signed medication list, any scripts, COVID test and COVID screening tool. Original in SNF folder and copy on pt's chart. MINAL spoke with RN, pt can transport via cot. SW accessed trip assist and arranged transportation via cot for 5:00pm. Transportation form completed and placed on SNF folder and copy on pt's chart. SW in to speak with pt. SW updated pt that pt will be discharged back to [facility] [place] [facility] at 5:00pm. SW informed pt that this worker will call her daughter Cinthia to update. Pt states understanding. RN updated on transportation time. MINAL placed a call to Priya at [facility] [place] [facility] and updated her on discharge and transportation time. MINAL placed a call to pt's daughter Cinthia and left message. Cinthia's voicemail stated her first name but last name was different so SW unable to leave identifying voicemail. MINAL then received call from pt's daughter Cinthia. MINAL updated Cinthia that pt is medically ready for discharge back to [facility] [place] [facility] today and transportation is arranged for 5:00pm. Cinthia states understanding. Plan: Return to [facility] [place] [facility] skilled today with physician's transporting pt via cot at 5:00pm [facility] Addendum entered by Rhea Soto 01/23/21 13:50: MINAL received message from Priya at [facility] [place] stating pre-cert was obtained, pt can discharge back to [facility] [place] [facility] today. MINAL updated physician. Original Note: Social Work Note SW received call from pt's CM Toshia Banda, MINAL updated Toshia on pt's admission to [facility]. MINAL informed Toshia that plan is for pt to return to [facility] [place] pending pre-cert. Toshia asked to be faxed discharge paperwork once pt is discharged. MINAL faxed updated clinicals to [facility] [place]. Plan: Return to [facility] [place] [facility] skilled pending pre-cert [facility]
[2021-01-23 13:46] LABS: Bedside Glucose 123 mg/dL (70-110)
--- NOTE | 2021-01-23 14:34 | PN_ITS ---
Patient Problems: Active and Suspected Problems (Last Reviewed 01/22/21 @ 07:[address] Antoine Muñiz, DO) Acute encephalopathy (Acute) secondary to UTI Stroke (Acute) Hypertensive emergency (Acute) Metabolic encephalopathy (Acute) Subjective: Complains of her fingers nearly daily turning blue, which at times, makes it difficult to hold things. Has tried wearing gloves, even during warm weather, to help. Has never been diagnosed with Raynauds. Vitals/I&O's: Vital Signs Temp Pulse Resp BP Pulse Ox 36.6 C 89 18 135/78 H 93 01/23/21 09:48 01/23/21 13:20 01/23/21 13:20 01/23/21 13:20 01/23/21 13:20 Oxygen Flow Rate (L/min) 2 Oxygen Delivery Method Room Air Weight: 102.6 kg Body Mass Index (BMI) 40.1 Finger Stick Blood Glucose 336 Intake and Output for Last 24 Hours 01/21/21 01/22/21 01/23/21 23:59 23:59 23:59 Intake Total 1196.25 / 1196.25 0 / 0 Output Total 1050 / 1050 400 / 400 Balance 146.25 / 146.25 -400 / -400 General: Alert, No apparent distress HEENT: Atraumatic, Normocephalic Oral: Moist Mucosa, No Gingival or Mucosal Lesions/ Ulcerations Neck: No Nodes, Thyroid Normal Size and Texture Lungs: Clear to auscultation, Normal air movement, No rhonchi, No wheeze, No rales Cardiovascular: Regular rate, Regular Rhythm, Normal S1, Normal S2, No murmurs Abdomen: Bowel Sounds Present, Soft, Non Tender, Non-Distended Extremities: No edema, No Calf Tenderness, - - no cyanosis/clubbing Skin: No rashes, No breakdown Psych/Mental Status: Normal Affect, Appropriate Laboratory Results 01/22/21 16:52: POC Glucose 177 H 01/22/21 21:27: POC Glucose 220 H 01/23/21 06:18: Sodium 141, Potassium 3.9, Chloride 108 H, Carbon Dioxide 28.0, Anion Gap 5, BUN 16, Creatinine 1.08 H, Estim Creat Clear Calc 34.50, Est GFR (MDRD) Af Amer 63, Est GFR (MDRD) Non-Af 52 L, BUN/Creatinine Ratio 14.8, Glucose 186 H, Calcium 8.6 01/23/21 13:42: POC Glucose 123 H Current Medications Acetaminophen (Acetaminophen 325 Mg Tablet) 650 mg PO Q6H PRN PRN PRN Reason: Pain Score 1-10/Temp > 100.7 F Amlodipine Besylate (Amlodipine 5 Mg Tablet) 5 mg PO DAILY [facility] Last Admin: 01/23/21 10:12 Dose: 5 mg Documented by: Atorvastatin Calcium (Atorvastatin Calcium 20 Mg Tablet) 20 mg PO QHS [facility] Last Admin: 01/22/21 21:30 Dose: 20 mg Documented by: Bisacodyl (Bisacodyl 10 Mg Suppository) 10 mg RC QHS PRN PRN Reason: Constipation Bisacodyl (Bisacodyl 5 Mg Tablet) 5 mg PO BID PRN PRN PRN Reason: Constipation Dextrose (Dextrose 50%-Water 25 Gm/50 Ml Disp.Syrin) 0 gm IV X1 PRN; Protocol PRN Reason: Hypoglycemia Donepezil HCl (Donepezil Hcl 5 Mg Tablet) 10 mg PO QHS [facility] Last Admin: 01/22/21 21:29 Dose: 10 mg Documented by: Duloxetine HCl (Duloxetine Hcl 30 Mg Capsule) 30 mg PO DAILY [facility] Last Admin: 01/23/21 10:12 Dose: 30 mg Documented by: Fluticasone Propionate (Fluticasone 0.05% 1 [place] Nasal.Sry) 1 spray NASAL BID [facility] Last Admin: 01/23/21 10:06 Dose: 1 spray Documented by: Furosemide (Furosemide 20 Mg Tablet) 20 mg PO BIDLX [facility] Last Admin: 01/23/21 10:05 Dose: 20 mg Documented by: Glucagon (Glucagon 1 Mg/Ml Syringe) 1 mg IM .X1 PRN PRN Reason: Hypoglycemia Hydralazine HCl (Hydralazine 20 Mg/Ml Vial) 10 mg IV Q4H PRN PRN PRN Reason: SBP GREATER THAN 180 Sodium Chloride () 1,000 mls @ 75 mls/hr IV .[id number] [facility] Last Admin: 01/23/21 01:41 Dose: Not Given Documented by: Insulin Glargine (Insulin Glargine 100 Units/Ml Pen) 60 units SC QPM [facility] Last Admin: 01/22/21 21:28 Dose: 60 unit Documented by: Insulin Human Lispro (Insulin Lispro 100 Unit/Ml Insuln.Pen) 15 unit SC TIDCM [facility] Last Admin: 01/23/21 13:58 Dose: 15 u Documented by: Insulin Human Lispro (Insulin Lispro 100 Unit/Ml Insuln.Pen) 0 unit SC TIDAC [facility]; Protocol Last Admin: 01/23/21 13:57 Dose: Not Given Documented by: Isosorbide Mononitrate (Isosorbide Mononitrate 30 Mg Tablet) 90 mg PO DAILY [facility] Last Admin: 01/23/21 10:05 Dose: 90 mg Documented by: Latanoprost (Latanoprost 0.005% 1 Bottle) 1 drp OPHTHALMIC QHS [facility] Last Admin: 01/22/21 21:30 Dose: 1 drp Documented by: Levetiracetam (Levetiracetam 500 Mg Tablet) 500 mg PO BID [facility] Last Admin: 01/23/21 10:04 Dose: 500 mg Documented by: Levothyroxine Sodium (Levothyroxine 50 Mcg Tablet) 50 mcg PO DAILY@0600 [facility] Last Admin: 01/23/21 05:47 Dose: 50 mcg Documented by: Loratadine (Loratadine 10 Mg Tablet) 10 mg PO DAILY [facility] Last Admin: 01/23/21 10:03 Dose: 10 mg Documented by: Magnesium Hydroxide (Magnesium Hydroxide 30 Ml Udc) 30 ml PO DAILY PRN PRN PRN Reason: Constipation Memantine (Memantine Hydrochloride 5 Mg Tablet) 10 mg PO BID [facility] Last Admin: 01/23/21 10:05 Dose: 10 mg Documented by: Metoprolol Succinate (Metoprolol(Xl)Succ 50 Mg Tablet) 50 mg PO DAILY [facility] Last Admin: 01/23/21 10:04 Dose: 50 mg Documented by: Nitroglycerin (Nitroglycerin (Inpatient Use) 0.4 Mg Tab.Subl) 0.4 mg SL Q5M PRN PRN Reason: CARDIAC/CHEST PAIN Ondansetron HCl (Ondansetron 4 Mg/2 Ml Vial) 4 mg IV Q8H PRN PRN PRN Reason: NAUSEA/VOMITING Pantoprazole Sodium (Pantoprazole Sodium 20 Mg Tablet) 20 mg PO DAILY [facility] Last Admin: 01/23/21 10:12 Dose: 20 mg Documented by: Polyethylene Glycol (Polyethylene Glycol 3350 17 Gm Packet) 17 gm PO DAILY [facility] Last Admin: 01/23/21 10:05 Dose: 17 gm Documented by: Prasugrel (Prasugrel Hydrochloride 10 Mg Tablet) 10 mg PO DAILY [facility] Last Admin: 01/23/21 13:56 Dose: 10 mg Documented by: Prednisolone Acetate (Prednisolone Eye Drops (5 Ml) 1 Drop Opth.Btl) 3 drp EACH EYE 4X/DAY [facility] Last Admin: 01/23/21 13:59 Dose: 3 drp Documented by: Senna (Senna Tablet) 1 tablet PO BID PRN PRN PRN Reason: Constipation Sodium Chloride (0.9% Saline Lock 10 Ml Syringe) 10 - 40 ml IV UD PRN PRN Reason: SALINE FLUSH STROKE Vital Signs/Narrative: Vital Signs Pulse Resp BP Pulse Ox 01/23/21 13:20 89 18 135/78 H 93 01/23/21 13:05 89 18 152/72 H 95 01/23/21 12:40 88 18 121/63 H 95 Medical Necessity - Tobacco Use Smoking Status: Never smoker Assessment/Plan All Active Problems (Last Reviewed 01/22/21 @ 07:[address] Antoine Muñiz, DO) Acute encephalopathy (Acute) Stroke (Acute) Hypertensive emergency (Acute) Metabolic encephalopathy (Acute) 1. Hypertensive emergency ruled out BP cuff was at the elbow. no additional work up 2. cervical cord impression may be etiology of her occasionally dropping items (i.e., cups) DW Dr. Christine, who will review conservative mgmt at this time not ideal surgical candidate given poor performance status (Karnofsky score of 50) 3. Suspected Raynaud's may also be reason for dropping items as she states when her fingers turn blue, she cannot hold on to items. continue amlodipine may need uptitrated if persists as BP allows 4. Debility Patient notes that she does drop things but it is intermittent. Also complains of weakness in her legs. Patient did have CAT scan of her neck last month that showed degenerative changes. 5. Slurred speech Patient may have some underlying dementia Patient does have slurring her speech but may be due to her dentures but also possible neurodegenerative process but also could be related with hypertensive encephalopathy. MRI brain negative 6. Diabetes mellitus type 2 Last A1c was 9.4 from January 06 Plan: Continue with basal and prandial insulin. Add sliding scale insulin. 7. Dementia Complicates overall care and coordination Plan: Continue with Namenda and donezepil. 8. VTE prophylaxis: Not indicated given observation status 9. Advanced care planning: Discussed with the patient. Patient was to be DNR Comfort Care arrest. She is unsure of intubation at this time. So we will leave her with intubation in the event of a respiratory arrest.
--- NOTE | 2021-01-23 14:55 | PCM.TXEXTCAR ---
- Diet 01/22/21 17:00 Diet: Cardiac - Heart Healthy Food consistency:: Mechanical (Minced/Moist) Liquid Consistency:: Regular/Thin Is pt able to select menu?: No Diet Comments: no straws - Routine Orders/Code Status Code Status: DNRCC-A - Wound(s) RT LE Wound Type: Abrasion - Therapies Physical Therapy: Eval and Treat Occupational Therapy: Eval and Treat Speech Therapy: Eval and Treat - Problem/Diagnosis (1) Acute encephalopathy Status: Inactive Comment: secondary to UTI (2) Stroke Status: Inactive (3) Chronic renal insufficiency Status: Chronic (4) Dementia Status: Chronic (5) Hyperglycemia due to diabetes mellitus Status: Chronic (6) Moderate aortic stenosis Status: Chronic (7) Noncompliance Status: Chronic (8) Debility Status: Chronic (9) Hyperglycemia Status: Chronic (10) Metabolic encephalopathy Status: Acute (11) History of permanent cardiac pacemaker placement Status: Chronic (12) Sick sinus syndrome Status: Chronic (13) Longstanding persistent atrial fibrillation Status: Chronic (14) Atherosclerosis of coronary artery without angina pectoris Status: Chronic (15) History of coronary artery stent placement Status: Chronic Comment: [id number] LAD w/ 3.5 x 12 mm Taxus Express 10/23/2004; [id number] Inferolateral Marginal Branch w/ 3.0 x 9 mm [place] Stent 01/25/2011 @ [facility] (16) Right bundle branch block (RBBB) Status: Chronic (17) Chronic diastolic (congestive) heart failure Status: Chronic (18) Nonrheumatic aortic (valve) stenosis Status: Chronic (19) Essential (primary) hypertension Status: Chronic (20) Hyperlipidemia Status: Chronic (21) Bone cancer Status: Chronic - Allergies/Procedures Done in Hospital Allergies/Adverse Reactions: Allergies atorvastatin calcium [From Lipitor] Allergy (Verified 01/22/21 05:43) dont remember codeine Allergy (Verified 01/22/21 05:43) Rash iodine Allergy (Verified 01/22/21 05:43) Rash Latex, Natural Rubber Allergy (Verified 01/22/21 05:43) Rash lovastatin Allergy (Verified 01/22/21 05:43) Rash rosuvastatin calcium [From Crestor] Allergy (Verified 01/22/21 05:43) rash\ tositumomab Allergy (Verified 01/22/21 05:43) PT UNSURE OF REACTION naproxen [From Naprosyn] Adverse Reaction (Verified 01/22/21 05:43) Upset Stomach pregabalin [From Lyrica] Adverse Reaction (Verified 01/22/21 05:43) Upset Stomach Sulfa (Sulfonamide Antibiotics) Adverse Reaction (Verified 01/22/21 05:43) Upset Stomach - Type of Care/Length of Stay Estimated LOS: Convalescent Care Less Than 30 days Type of Care Needed: Skilled Rehab Potential: Fair Prognosis: Fair - Additional Orders/Day of Discharge Day of Discharge: 01/23/21 - Dietary and Speech Recommendations Dietitian Recommendations/Changes: As medically able, rec STEPHON to [address] jony Cardiac diet - 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
--- NOTE | 2021-01-23 14:59 | PCM.DC.SUM ---
Discharge Date and Diagnosis - Problem List Patient Problems: Active and Suspected Problems (Last Reviewed 01/22/21 @ 07:[address] Antoine Muñiz DO) Metabolic encephalopathy (Acute) Date of Admission: 01/22/21 Date of Discharge: 01/23/21 - Primary Discharge Diagnosis Acute Problems: Active Problems (Last Reviewed 01/22/21 @ 07:[address] Antoine Muñiz DO) 1. Hypertensive emergency ruled out BP cuff was at the elbow. no additional work up 2. cervical cord impression may be etiology of her occasionally dropping items (i.e., cups) DW Dr. Christine, who will review conservative mgmt at this time not ideal surgical candidate given poor performance status (Karnofsky score of 50) 3. Suspected Raynaud's may also be reason for dropping items as she states when her fingers turn blue, she cannot hold on to items. continue amlodipine may need uptitrated if persists as BP allows 4. Debility back to [facility] for further therapy. 5. Slurred speech Patient may have some underlying dementia Patient does have slurring her speech but may be due to her dentures but also possible neurodegenerative process but also could be related with hypertensive encephalopathy. MRI brain negative - Secondary Discharge Diagnosis Chronic Problems: Chronic Problems (Last Reviewed 01/22/21 @ 07:[address] Antoine Muñiz DO) Chronic renal insufficiency (Chronic) Dementia (Chronic) Hyperglycemia due to diabetes mellitus (Chronic) Moderate aortic stenosis (Chronic) Noncompliance (Chronic) Debility (Chronic) Hyperglycemia (Chronic) History of permanent cardiac pacemaker placement (Chronic 03/05/17) Sick sinus syndrome (Chronic) Longstanding persistent atrial fibrillation (Chronic) Atherosclerosis of coronary artery without angina pectoris (Chronic) History of coronary artery stent placement (Chronic 01/25/11) [id number] LAD w/ 3.5 x 12 mm Taxus Express 10/23/2004; [id number] Inferolateral Marginal Branch w/ 3.0 x 9 mm [place] Stent 01/25/2011 @ [facility] Right bundle branch block (RBBB) (Chronic) Chronic diastolic (congestive) heart failure (Chronic) Nonrheumatic aortic (valve) stenosis (Chronic) Essential (primary) hypertension (Chronic) Hyperlipidemia (Chronic) Bone cancer (Chronic) Hospital Course and Treatment Imaging Results: 01/23/21 12:00 Brain without Contrast [MRI] Stat Spine Cervical (Routine) [MRI] Stat Clinical Impression(s) from Imaging Studies Brain CT 01/22/21 05:41 IMPRESSION: Chronic involutional changes of the brain. Electronically Signed: Sandro Bass MD at 6:54 EDT Tel , Service support , Chest X-Ray 01/22/21 05:42 IMPRESSION: No focal lung consolidative changes. No interval change. Electronically Signed: Sandro Bass MD at 6:49 EDT Tel , Service support , Brain MRI 01/23/21 12:00 IMPRESSION: Involutional changes of the brain, as described above. No acute infarct. 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 Patient expressed some occasional time getting the words out but was otherwise coherent. Patient complaining of weakness in her legs but is more chronic but does complain of weakness in her upper extremities where she may occasionally drop objects. Initial concern when she presented emergency room was her blood pressure was profoundly elevated at 262 systolic. It was later found out that those were read and accurately this was read just above her elbow. Blood pressure remained stable as it was properly placed and did not require any additional agents. Because of the slurred speech and upper extremity weakness, MRI of her brain and cervical spine were performed. MRI of the brain showed involutional changes but no acute process. Cervical spine MRI, however, showed osteophytes and C4 and C5 spinal cord compression. No myelomalacia was noted. Did discuss the case with Dr. Christine who will review the images but did not feel that there is any urgency for surgery. Patient be evaluated for progress but if she has no improvement patient may follow-up with spine surgery as outpatient. [facility]. Patient for me today that occasion she will get blue fingers and when her fingers turn blue is difficult for her to hold onto objects and she will drop objects when that happens. She does complain of big thick ridges within her fingers when this happens. She states as being of that she could almost whole recorder in him. Concerned that this may be Raynaud's phenomenon so the patient will be started on 5 mg of amlodipine. That dose may need to be adjusted further if she continues to have symptoms while being on that as her blood pressure allows. [] Patient Problems: Active and Suspected Problems (Last Reviewed 01/22/21 @ 07:[address] Antoine Muñiz, DO) Metabolic encephalopathy (Acute) - Physical Exam Vitals/I&O's: Vital Signs Temp Pulse Resp BP Pulse Ox 36.6 C 89 18 135/78 H 93 01/23/21 09:48 01/23/21 13:20 01/23/21 13:20 01/23/21 13:20 01/23/21 13:20 Oxygen Flow Rate (L/min) 2 Oxygen Delivery Method Room Air Weight: 102.6 kg Body Mass Index (BMI) 40.1 Finger Stick Blood Glucose 336 Intake and Output for Last 24 Hours 01/21/21 01/22/21 01/23/21 23:59 23:59 23:59 Intake Total 1196.25 / 1196.25 0 / 0 Output Total 1050 / 1050 400 / 400 Balance 146.25 / 146.25 -400 / -400 Laboratory Results 01/22/21 16:52: POC Glucose 177 H 01/22/21 21:27: POC Glucose 220 H 01/23/21 06:18: Sodium 141, Potassium 3.9, Chloride 108 H, Carbon Dioxide 28.0, Anion Gap 5, BUN 16, Creatinine 1.08 H, Estim Creat Clear Calc 34.50, Est GFR (MDRD) Af Amer 63, Est GFR (MDRD) Non-Af 52 L, BUN/Creatinine Ratio 14.8, Glucose 186 H, Calcium 8.6 01/23/21 13:42: POC Glucose 123 H Current Medications Acetaminophen (Acetaminophen 325 Mg Tablet) 650 mg PO Q6H PRN PRN PRN Reason: Pain Score 1-10/Temp > 100.7 F Amlodipine Besylate (Amlodipine 5 Mg Tablet) 5 mg PO DAILY [facility] Last Admin: 01/23/21 10:12 Dose: 5 mg Documented by: Atorvastatin Calcium (Atorvastatin Calcium 20 Mg Tablet) 20 mg PO QHS [facility] Last Admin: 01/22/21 21:30 Dose: 20 mg Documented by: Bisacodyl (Bisacodyl 10 Mg Suppository) 10 mg RC QHS PRN PRN Reason: Constipation Bisacodyl (Bisacodyl 5 Mg Tablet) 5 mg PO BID PRN PRN PRN Reason: Constipation Dextrose (Dextrose 50%-Water 25 Gm/50 Ml Disp.Syrin) 0 gm IV X1 PRN; Protocol PRN Reason: Hypoglycemia Donepezil HCl (Donepezil Hcl 5 Mg Tablet) 10 mg PO QHS [facility] Last Admin: 01/22/21 21:29 Dose: 10 mg Documented by: Duloxetine HCl (Duloxetine Hcl 30 Mg Capsule) 30 mg PO DAILY [facility] Last Admin: 01/23/21 10:12 Dose: 30 mg Documented by: Fluticasone Propionate (Fluticasone 0.05% 1 [place] Nasal.Sry) 1 spray NASAL BID [facility] Last Admin: 01/23/21 10:06 Dose: 1 spray Documented by: Furosemide (Furosemide 20 Mg Tablet) 20 mg PO BIDLX [facility] Last Admin: 01/23/21 10:05 Dose: 20 mg Documented by: Glucagon (Glucagon 1 Mg/Ml Syringe) 1 mg IM .X1 PRN PRN Reason: Hypoglycemia Hydralazine HCl (Hydralazine 20 Mg/Ml Vial) 10 mg IV Q4H PRN PRN PRN Reason: SBP GREATER THAN 180 Sodium Chloride () 1,000 mls @ 75 mls/hr IV .[id number] [facility] Last Admin: 01/23/21 01:41 Dose: Not Given Documented by: Insulin Glargine (Insulin Glargine 100 Units/Ml Pen) 60 units SC QPM [facility] Last Admin: 01/22/21 21:28 Dose: 60 unit Documented by: Insulin Human Lispro (Insulin Lispro 100 Unit/Ml Insuln.Pen) 15 unit SC TIDCM [facility] Last Admin: 01/23/21 13:58 Dose: 15 u Documented by: Insulin Human Lispro (Insulin Lispro 100 Unit/Ml Insuln.Pen) 0 unit SC TIDAC [facility]; Protocol Last Admin: 01/23/21 13:57 Dose: Not Given Documented by: Isosorbide Mononitrate (Isosorbide Mononitrate 30 Mg Tablet) 90 mg PO DAILY [facility] Last Admin: 01/23/21 10:05 Dose: 90 mg Documented by: Latanoprost (Latanoprost 0.005% 1 Bottle) 1 drp OPHTHALMIC QHS [facility] Last Admin: 01/22/21 21:30 Dose: 1 drp Documented by: Levetiracetam (Levetiracetam 500 Mg Tablet) 500 mg PO BID [facility] Last Admin: 01/23/21 10:04 Dose: 500 mg Documented by: Levothyroxine Sodium (Levothyroxine 50 Mcg Tablet) 50 mcg PO DAILY@0600 [facility] Last Admin: 01/23/21 05:47 Dose: 50 mcg Documented by: Loratadine (Loratadine 10 Mg Tablet) 10 mg PO DAILY [facility] Last Admin: 01/23/21 10:03 Dose: 10 mg Documented by: Magnesium Hydroxide (Magnesium Hydroxide 30 Ml Udc) 30 ml PO DAILY PRN PRN PRN Reason: Constipation Memantine (Memantine Hydrochloride 5 Mg Tablet) 10 mg PO BID [facility] Last Admin: 01/23/21 10:05 Dose: 10 mg Documented by: Metoprolol Succinate (Metoprolol(Xl)Succ 50 Mg Tablet) 50 mg PO DAILY [facility] Last Admin: 01/23/21 10:04 Dose: 50 mg Documented by: Nitroglycerin (Nitroglycerin (Inpatient Use) 0.4 Mg Tab.Subl) 0.4 mg SL Q5M PRN PRN Reason: CARDIAC/CHEST PAIN Ondansetron HCl (Ondansetron 4 Mg/2 Ml Vial) 4 mg IV Q8H PRN PRN PRN Reason: NAUSEA/VOMITING Pantoprazole Sodium (Pantoprazole Sodium 20 Mg Tablet) 20 mg PO DAILY [facility] Last Admin: 01/23/21 10:12 Dose: 20 mg Documented by: Polyethylene Glycol (Polyethylene Glycol 3350 17 Gm Packet) 17 gm PO DAILY [facility] Last Admin: 01/23/21 10:05 Dose: 17 gm Documented by: Prasugrel (Prasugrel Hydrochloride 10 Mg Tablet) 10 mg PO DAILY [facility] Last Admin: 01/23/21 13:56 Dose: 10 mg Documented by: Prednisolone Acetate (Prednisolone Eye Drops (5 Ml) 1 Drop Opth.Btl) 3 drp EACH EYE 4X/DAY [facility] Last Admin: 01/23/21 13:59 Dose: 3 drp Documented by: Senna (Senna Tablet) 1 tablet PO BID PRN PRN PRN Reason: Constipation Sodium Chloride (0.9% Saline Lock 10 Ml Syringe) 10 - 40 ml IV UD PRN PRN Reason: SALINE FLUSH Discharge Diet: No Restrictions Discharge Activity: Return to Normal Activity Home Medications: Medications to take at Discharge Metoprolol Succinate [Toprol Xl] 50 mg PO DAILY 10/11/17 Prasugrel HCl 10 mg PO DAILY 06/04/18 Duloxetine HCl 30 mg PO DAILY 11/18/18 Isosorbide Mononitrate [Imdur] 90 mg PO DAILY 02/29/20 Levothyroxine [Synthroid] 50 mcg PO DAILY 02/29/20 furosemide 20 mg tablet 20 mg PO BID tab 04/19/20 levetiracetam 500 mg tablet 500 mg PO BID tab 04/19/20 lisinopril 10 mg tablet 10 mg PO DAILY tab 04/19/20 Omeprazole [Prilosec] 20 mg PO DAILY 05/18/20 Acetaminophen [Tylenol Tablet] 650 mg PO Q6H PRN PRN tab 05/22/20 Magnesium Hydroxide [Milk Of Magnesia] 30 ml PO DAILY PRN PRN udc 05/22/20 Fluticasone 0.05% [Flonase Nasal [place]] 2 spray NARES BID 12/13/20 Nitroglycerin (INPATIENT USE) [Nitrostat] 0.4 mg SUBLINGUAL PRN PRN 12/13/20 Prednisolone Acetate [Pred Forte] 3 drp EACH EYE 4X/DAY 12/13/20 atorvastatin 20 mg tablet 20 mg PO QHS 01/05/21 bisacodyl 10 mg rectal suppository 10 mg RC QHS PRN 01/05/21 insulin glargine 100 unit/mL (3 mL) subcutaneous pen 60 unit SC QPM ml 01/05/21 insulin lispro 100 unit/mL subcutaneous pen 15 unit SC TIDCM ml 01/05/21 latanoprost 0.005 % eye drops 1 drp EACH EYE QHS 01/05/21 sennosides 8.6 mg capsule 8.6 mg PO BID 01/05/21 Memantine HCl 10 mg PO BID #1 tablet 01/06/21 Bisacodyl [Dulcolax] 5 mg PO BID PRN PRN 01/22/21 Cetirizine HCl [Zyrtec] 10 mg PO DAILY 01/22/21 Donepezil HCl [Aricept] 10 mg PO QHS 01/22/21 Polyethylene Glycol 3350 [Miralax] 17 gm PO DAILY 01/22/21 Sodium Phosphate,[place]-Dibasic [Enema Ready To Use] 133 ml RC PRN PRN 01/22/21 Acetaminophen [Tylenol Tablet] 650 mg PO Q6H PRN PRN tablet 01/23/21 Amlodipine [Norvasc] 5 mg PO DAILY tablet 01/23/21 Primary Care Physician: Jose Antonio Waterman MD [Primary Care Provider] - Within 2 Weeks Please Follow Up With: Chuck Christine DO When: 1-2 months if upper extremity weakness does not improve Disposition: Intermediate facility Minutes spent on discharge:: 32 Patient Condition:: Fair Medical Necessity - Tobacco Use Smoking Status: Never smoker Meaningful Use Info Meaningful Use Diagnoses (Choose all that apply): None applicable OBSV E&M: 38036 Observation care discharge
[2021-01-23 16:40] LABS: Bedside Glucose 153 mg/dL (70-110)
--- NOTE | 2021-01-23 18:18 | NURSING ---
report called to Kimberly at [facility]
== END 2021-01-23 19:32 | disposition skilled nursing facility (03) ==
LOC: ED 06:58 → MS3 08:06 → PCU 08:20 → MS3 01-23 08:20
PROVIDERS: Emergency Provider Emergency Medicine; PCP Family Medicine
DX: I16.1 Hypertensive emergency (principal); G93.41 Metabolic encephalopathy; R47.81 Slurred speech; R20.0 Anesthesia of skin; R53.1 Weakness; I25.10 Atherosclerotic heart disease of native coronary artery without angina pectoris; E11.22 Type 2 diabetes mellitus with diabetic chronic kidney disease; N18.30 Chronic kidney disease, stage 3 unspecified; I13.0 Hypertensive heart and chronic kidney disease with heart failure and stage 1 through stage 4 chronic kidney disease, or unspecified chronic kidney disease; F03.90 Unspecified dementia, unspecified severity, without behavioral disturbance, psychotic disturbance, mood disturbance, and anxiety; E78.5 Hyperlipidemia, unspecified; I48.11 Longstanding persistent atrial fibrillation; E11.65 Type 2 diabetes mellitus with hyperglycemia; I50.32 Chronic diastolic (congestive) heart failure; E66.01 Morbid (severe) obesity due to excess calories; G95.29 Other cord compression; M19.90 Unspecified osteoarthritis, unspecified site; E11.51 Type 2 diabetes mellitus with diabetic peripheral angiopathy without gangrene; G89.29 Other chronic pain; Z79.899 Other long term (current) drug therapy; Z79.52 Long term (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 of systemic steroids; Z79.4 Long term (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 of insulin; Z95.0 Presence of cardiac pacemaker; Z95.5 Presence of coronary angioplasty implant and graft; Z79.51 Long term (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 of inhaled steroids; Z66 Do not resuscitate; Z91.19 Patient's noncompliance with other medical treatment and regimen; Z68.41 Body mass index [BMI] 40.0-44.9, adult
CPT/HCPCS: 51702; 70450; 70551; 71045; 72141; 74230; 80048; 80053; 81001; 82962; 84484; 85025; 85610; 85730; 87426; 92610; 92611; 93005; 96361; 96365; 97162; 97166; 97802; 99218; 99285; J7030; A4216; G0378

== ENCOUNTER 2021-04-02 09:00 | Inpatient (IN) | payer MEDICARE, MEDICAID, SELFPAY ==
[2021-01-22 09:51] VITALS: BMI 40.1
[2021-04-02] VITALS (9 sets, daily range): BP systolic 141–168; BP diastolic 71–98; PULSE 75–97; RESP 12–25; TEMP 36.4–36.7; O2SAT 88–98; BMI 41.3; BMI 41.8
--- NOTE | 2021-04-02 09:02 | RAD_ITS ---
STUDY: X-RAY CHEST REASON FOR EXAM: Female, 75 years old. Hypoxia and bilateral rales TECHNIQUE: COMPARISON: None. FINDINGS: There is mild right-sided pleural effusion. Heavy markings in the central lung love. The left costophrenic angle is clear. The cardiac silhouette is mildly enlarged. There is a pacemaker with single lead in place. Linear atelectasis is noted in the left lower lung field. RAD/Chest 1 View (Portable) IMPRESSION: Mild right-sided pleural effusion with heavy markings centrally. Mild cardiomegaly Electronically Signed: Soco Lemus, at 9:37 EDT Tel , Service support ,
--- NOTE | 2021-04-02 09:02 | EKG12_ITS ---
Test Reason : CP Blood Pressure : / mmHG Vent. Rate : 080 BPM Atrial Rate : 125 BPM P-R Int : 000 ms QRS Dur : 124 ms QT Int : 418 ms P-R-T Axes : 000 -33 -07 degrees QTc Int : 482 ms Atrial fibrillation Left axis deviation Right bundle branch block Abnormal ECG Confirmed by MARICARMEN GALINDO, MARCK ([id number]), scientific editor WILLIS HAWKINS ([id number]) on 04/04/2021 9:19:07 AM Referred By: CHITRA Confirmed By:MARCK HERNADEZ MD
--- NOTE | 2021-04-02 09:05 | EDS_ITS ---
HPI History of Present Illness Chief Complaint: Chest Pain Informant: patient, EMS and SNF Onset/Context/Timing Onset: Hours Activity at onset: sudden and activity on onset Timing: Continuous Quality: Positive for Aching and Pain Location: Substernal Current Severity: Mild Maximum Severity: Moderate Worsened By: - (Walking to the restroom) Relieved By: Nothing and - (Patient reports improvement after 1 nitroglycerin) Associated Symptoms: Positive for Nausea and Dyspnea (Dyspnea started prior to chest discomfort) Narrative Narrative: Patient is an elderly woman who arrived by ambulance from nursing facility because of chest discomfort. Patient's pulse ox on room air was 88%. She arrived with oxygen on. O2 sat dropped to 90% transferring her from EMS cot to examination cot without oxygen. Oxygen was restarted. Patient states she got up to use the restroom. She developed midsternal aching chest pain that radiated to her left shoulder and arm associated with nausea. She denies diaphoresis. She reports improvement after nitro administered by EMS. EMS states they administered nitro for the chest pain and her elevated blood pressure. Patient denies fever, chills night sweats. She denies headache, visual, ocular auditory symptoms. She presently is having chest discomfort. She does report shortness of breath. She denies vomiting or diarrhea. She denies black or maroon-colored stool. Apparently she is not on an anticoagulant. She does have history of long standing atrial fibrillation Prior Similar Symptoms: Yes, With Prior Angina and With Prior PE Recent Illness/Hospitalization: No CVD Risk Factors: Positive for Hypertension, Diabetes and Hypercholesterolemia PE Risk Factors: Positive for Cancer; Negative for Recent Travel/Surgery, Prior DVT or PE and OCP + Smoking + >/=35 TAD Risk Factors: Positive for Hypertension; Negative for Marfan's Syndrome and Family History [facility] Medical History (Updated 04/02/21 @ 12:[address] 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 Nonrheumatic aortic (valve) stenosis Osteoarthritis PVD (peripheral vascular disease) Right bundle branch block (RBBB) Sick sinus syndrome Sleep apnea Type II diabetes mellitus Home Medications metoprolol succinate 50 mg PO DAILY 10/11/17 [History Last Taken 05/18/20] prasugrel 10 mg PO DAILY 06/04/18 [History Last Taken 05/18/20] duloxetine 30 mg PO DAILY 11/18/18 [History Last Taken 05/18/20] isosorbide mononitrate 90 mg PO DAILY 02/29/20 [History Last Taken 05/18/20] levothyroxine 50 mcg PO DAILY 02/29/20 [History Last Taken 05/18/20] furosemide 20 mg tablet 20 mg PO BID tab 04/19/20 [History Last Taken 05/18/20] levetiracetam 500 mg tablet 500 mg PO BID tab 04/19/20 [History Last Taken 05/18/20] omeprazole 20 mg PO DAILY 05/18/20 [History Last Taken 05/18/20] acetaminophen 650 mg PO Q6H PRN PRN tab 05/22/20 [Rx Last Taken Unknown] fluticasone propionate 2 spray NARES BID 12/13/20 [History Last Taken Unknown] nitroglycerin 0.4 mg SUBLINGUAL PRN PRN 12/13/20 [History Last Taken Unknown] atorvastatin 20 mg tablet 20 mg PO QHS 01/05/21 [History Last Taken Unknown] bisacodyl 10 mg rectal suppository 10 mg RC QHS PRN 01/05/21 [History Last Taken Unknown] insulin glargine 100 unit/mL (3 mL) subcutaneous pen 60 unit SC QPM ml 01/05/21 [History Last Taken Unknown] insulin lispro 100 unit/mL subcutaneous pen 15 unit SC TIDCM ml 01/05/21 [History Last Taken Unknown] latanoprost 0.005 % eye drops 1 drp EACH EYE QHS 01/05/21 [History Last Taken Unknown] sennosides 8.6 mg capsule 8.6 mg PO BID 01/05/21 [History Last Taken Unknown] memantine 10 mg PO BID #1 tablet 01/06/21 [Rx Last Taken Unknown] cetirizine 10 mg PO DAILY 01/22/21 [History Last Taken Unknown] donepezil 10 mg PO QHS 01/22/21 [History Last Taken Unknown] acetaminophen 650 mg PO Q6H PRN PRN tablet 01/23/21 [Rx Last Taken Unknown] amlodipine 5 mg PO DAILY tablet 01/23/21 [Rx Last Taken Unknown] hydrocodone-acetaminophen 1 tab PO BID PRN 04/02/21 [History Last Taken Unknown] Allergy/AdvReac Type Severity Reaction Status Date / Time atorvastatin calcium Allergy dont Verified 04/02/21 09:11 [From Lipitor] remember codeine Allergy Rash Verified 04/02/21 09:11 iodine Allergy Rash Verified 04/02/21 09:11 Latex, Natural Rubber Allergy Rash Verified 04/02/21 09:11 lovastatin Allergy Rash Verified 04/02/21 09:11 rosuvastatin calcium Allergy rash\ Verified 04/02/21 09:11 [From Crestor] tositumomab Allergy PT UNSURE Verified 04/02/21 09:11 OF REACTION naproxen [From Naprosyn] AdvReac Upset Verified 04/02/21 09:11 Stomach pregabalin [From Lyrica] AdvReac Upset Verified 04/02/21 09:11 Stomach Sulfa (Sulfonamide AdvReac Upset Verified 04/02/21 09:11 Antibiotics) Stomach Family History Other Cancer Surgical History History of coronary artery stent placement (01/25/11) History of hysterectomy History of loop recorder (2013) History of permanent cardiac pacemaker placement (03/05/17) History of thyroidectomy Social History (Updated 04/02/21 @ 09:[address] Silver Wray MD) household members: none housing: senior living Smoking Status: Never smoker details: Not presently substance use type: does not use ROS ROS ED Review of Systems ROS Unobtainable: due to mental status Constitutional Constitutional ED: Denies chills, fever(s) or subjective Eyes Eyes: Denies blurry vision or change in vision ENT ENT ED: Denies ear pain, rhinorrhea or sore throat Cardiovascular Cardiovascular: Reports as per HPI, chest pain and orthopnea Respiratory/Chest Respiratory/Chest: Reports dyspnea, dyspnea on exertion and orthopnea; Denies cough Gastrointestinal Gastrointestinal: Reports nausea; Denies abdominal pain, constipation, diarrhea or vomiting Genitourinary Genitourinary ED: Denies dysuria, hematuria or urinary frequency Musculoskeletal Musculoskeletal: Denies arthralgias, back pain or myalgias Neurologic Neurologic: Reports weakness; Denies headache(s) or paresthesias Endocrine Endocrinology: Denies polydipsia, polyphagia or polyuria Hematologic/Lymphatic Hematologic/Lymphatic: Reports easy bruising; Denies easy bleeding EXAM Physical Exam Const Vital Signs: 04/02/21 09:02 Temperature 97.9 F Temperature Source Temporal Pulse Rate 83 Respiratory Rate 24 H Respiratory Effort Short of Breath Labored Accessory Muscle Use Respiratory Pattern Tachypnea Blood Pressure 141/71 H Blood Pressure Mean 94 Pulse Ox 93 Oxygen Delivery Method Nasal Cannula Oxygen Flow Rate (L/min) 2 Positive well nourished, well developed and obese General Appearance ED: well developed and other Patient is not alert. She is oriented even though patient has dementia listed as an active problem. Nutritional Appearance: obese HEENT normocephalic and atraumatic Eyes PERRL General Eye ED: Yes pale conjunctiva; Negative for scleral icterus Neck no lymphadenopathy, supple and no JVD Neck Narrative: Trachea midline. No inspiratory expiratory stridor. Chest Wall inspection of chest normal Resp No normal respiratory effort and No clear to auscultation bilaterally Effort and Inspection: Negative for respiratory distress Auscultation: rales bilateral mid Cardio regular rate and no murmurs Rhythm: abnormal rhythm GI normal to inspection, nondistended, normoactive bowel sounds, soft to palpation and non-tender Back/Spine no CVA tenderness and no thoracic nor lumbar tenderness Extremity General Extremety ED: Negative for tenderness Neuro oriented x3, CN's II-XII intact bilaterally and no sensory deficits noted Sensorium / Orientation: awake; Negative for alert Motor Exam: strength 5/5 throughout Psych mental status grossly normal Skin no rashes or lesions noted Skin Narrative: Patient does bruises upper extremity. Heart Score History: Moderately Suspicious Age: >/= 65 years Risk Factors: >/= 3 Risk Factors or History of CAD Score: 5 MDM MDM MDM Narrative Medical decision making narrative: With history of shortness of breath prior to chest pain will evaluate causes of her hypoxia. The hypoxia may be the cause of her chest pain/angina. EKG, chest x-ray and appropriate blood work was ordered. VBG was ordered because of her decreased level of consciousness to rule out hypercapnia. There is no evidence of hypercapnia. First troponin is normal. Patient still having chest discomfort. Clinically and chest x-ray indicates congestive heart failure. She was treated with IV Lasix. Since her pulse ox was 88% on room air hospice was been paged for admission. Lab Data Attestation: I reviewed the patient's lab results. Labs: Laboratory Results - last 24 hr 04/02/21 04/02/21 09:04 09:04 WBC 10.3 RBC 4.60 Hgb 11.7 L Hct 38.8 MCV 84.3 MCH 25.4 L MCHC 30.2 L RDW Std Deviation 44.7 H RDW Coeff of Candace 14.8 H Plt Count 256 MPV 12.0 Immature Gran % (Auto) 0.800 Neut % (Auto) 68.9 Lymph % (Auto) 19.4 [place] % (Auto) 7.5 Eos % (Auto) 2.7 Baso % (Auto) 0.7 Absolute Neuts (auto) 7.1 Absolute Lymphs (auto) 1.99 Nucleated RBC % 0.2 Sodium 142 Potassium 4.3 Chloride 104 Carbon Dioxide 31.0 Anion Gap 7 BUN 21 H Creatinine 1.11 H Estim Creat Clear Calc 36.65 Est GFR (MDRD) Af Amer 61 Est GFR (MDRD) Non-Af 51 L BUN/Creatinine Ratio 18.9 Glucose 172 H Calcium 8.8 Total Bilirubin 0.60 AST 24 ALT 31 Alkaline Phosphatase 156 H Troponin I < 0.015 Total Protein 7.5 Albumin 3.1 L Globulin 4.4 H Albumin/Globulin Ratio 0.7 L ABG Data ABG results: ABG 04/02/21 09:19 Specimen Type ANUJ VBG pH 7.40 VBG pO2 38 VBG HCO3 28 H VBG Total CO2 30 VBG O2 Sat (Calc) 71 H VBG Base Excess 3 POC Mix VBG pCO2 Pt Tmp 45.6 Radiography Chest X-Ray - ED: 1 View and Read by ED Physician (Single view chest x-ray reveals pleural effusion on the right. There is limited inspiratory volume. There is evidence of discoid atelectasis on the left. Cardiac silhouette is unremarkable. Borderline cardiomegaly. Osseous structures appear normal. There may be mild heart failure.) Diagnostic Testing: Radiology Impression Chest X-Ray 04/02/21 09:02 IMPRESSION: Mild right-sided pleural effusion with heavy markings centrally. Mild cardiomegaly Electronically Signed: Irfan Mamoun, at 9:37 EDT Tel , Service support , EKG Initial EKG: Interpretation: Atrial Fibrillation (Ventricular rate is 80. QRS durations 124 ms and has configuration right bundle branch block. QT interval 418 ms. [place] is to the left.) Discharge Plan Triage Chief Complaint: Chest Pain ED Provider: Silver Wray Dx/Rx/DC Orders Clinical Impression: Acute exacerbation of congestive heart failure, Hypoxia, Atrial fibrillation, Chronic renal insufficiency, Anemia due to chronic illness, Pleural effusion on right Prescriptions: No Action furosemide 20 mg tablet 20 mg PO BID RF: 0 levetiracetam 500 mg tablet 500 mg PO BID RF: 0 atorvastatin 20 mg tablet 20 mg PO QHS RF: 0 bisacodyl 10 mg suppository 10 mg RC QHS PRN (Reason: Constipation) RF: 0 latanoprost 0.005 % drops 1 drp EACH EYE QHS RF: 0 senna 8.6 mg capsule 8.6 mg PO BID RF: 0 metoprolol succinate 50 MG tablet extended release 24 hr 50 mg PO DAILY RF: 0 prasugrel 10 MG tablet 10 mg PO DAILY RF: 0 duloxetine 30 MG capsule,delayed release(DR/EC) 30 mg PO DAILY RF: 0 levothyroxine 50 MCG tablet 50 mcg PO DAILY RF: 0 isosorbide mononitrate 30 MG tablet 90 mg PO DAILY RF: 0 omeprazole 20 MG capsule 20 mg PO DAILY RF: 0 acetaminophen 325 MG tablet 650 mg PO Q6H PRN PRN (Reason: Pain Score 1-10/Temp > 100.7 F) RF: 0 nitroglycerin 0.4 MG tablet, sublingual 0.4 mg SUBLINGUAL PRN PRN (Reason: chest pain) RF: 0 fluticasone propionate 1 SPRAY spray,suspension 2 spray NARES BID RF: 0 insulin glargine 100 unit/mL (3 mL) insulin pen 60 unit SC QPM RF: 0 insulin lispro 100 unit/mL insulin pen 15 unit SC TIDCM RF: 0 memantine 5 mg tablet 10 mg PO BID Qty: 1 RF: 0 cetirizine 10 MG tablet 10 mg PO DAILY RF: 0 donepezil 5 MG tablet 10 mg PO QHS RF: 0 acetaminophen 325 MG tablet 650 mg PO Q6H PRN PRN (Reason: Pain Score 1-10/Temp > 100.7 F) RF: 0 amlodipine 5 MG tablet 5 mg PO DAILY RF: 0 hydrocodone-acetaminophen 5-325 mg Tablet 1 tab PO BID PRN (Reason: Pain) RF: 0 Primary Care Provider: Emerita Gottlieb Referrals: mEerita Gottlieb MD [Primary Care Provider] - Disposition Disposition: Home, self care
[2021-04-02 09:14] LABS: Absolute Lymphocyte Count 1.99 X10^3/uL (0.83-4.51); Absolute Neutrophil Count 7.1 X10^3/uL (2.0-7.7); Basophil# 0.07 X10^3/uL; Basophil% 0.7 % (0-1); Eosinophil# 0.28 X10^3/uL; Eosinophils% 2.7 % (0-5); Hematocrit 38.8 % (37-47); Hemoglobin 11.7 g/dL (12.0-15.0); Lymphocyte # 1.99 X10^3/ul (0.83-4.51); Lymphocyte % 19.4 % (19-41); Mean Corp Hgb Conc 30.2 g/dL (32-36); Mean Corpuscular Hgb 25.4 pg (27.0-32.0); Mean Corpuscular Volume 84.3 fL (81-99); Monocyte# 0.77 X10^3/uL; Monocyte% 7.5 % (0-10); NRBC Flagged by Analyzer 0.2 % (0-5); Neutrophil # 7.06 X10^3/uL (2.7-7.7); Neutrophil % 68.9 % (47-70); Platelet Count 256 K/mm3 (150-450); RBC Distribution Width CV 14.8 % (11.6-14.6); RBC Distribution Width SD 44.7 fl (35.1-43.9); White Blood Count 10.3 K/mm3 (4.4-11.0)
[2021-04-02 09:25] LABS: Blood Gas Specimen Type VEN; VBG BASE EXCESS 3 mmol/L (-1.0-3.5); VBG Bicarbonate 28 mmol/L (22-26); VBG PO2 38 mmHg (25-40); VBG SO2 71 % (50-70); VBG TCO2 30 mmol/L (23-33); VBG pCO2 45.6 mmHg (41-51)
[2021-04-02 09:31] LABS: ALB/GLOB Ratio 0.7 RATIO (0.9-2.4); AST(SGOT) 24 U/L (15-37); Alanine Aminotransfer ALT/SGPT 31 U/L (13-56); Albumin, Serum 3.1 g/dL (3.2-5.0); Alkaline Phosphatase 156 U/L (45-117); Anion Gap 7 (5-15); BUN 21 mg/dL (7-18); BUN/Creat Ratio 18.9 RATIO (10-20); Calcium,Total 8.8 mg/dL (8.5-10.1); Chloride 104 mmol/L (98-107); Creatinine, Serum 1.11 mg/dL (0.55-1.02); EST Glomerular Filtration Rate 51 mL/min (>60); Est Glom Filt Rate - Afr Amer 61 mL/min (>60); Estimated Creatinine Clearance 36.65 ml/min; Globulin 4.4 g/dL (2.2-4.2); Glucose 172 mg/dL (74-106); Potassium 4.3 mmol/L (3.5-5.1); Protein, Total 7.5 g/dL (6.4-8.2); Sodium Level 142 mmol/L (136-145)
[2021-04-02] MEDS: Furosemide 40 MG/4 ML Vial IV ×2 (12:48→18:45)
--- NOTE | 2021-04-02 14:27 | EKG12_ITS ---
Test Reason : Blood Pressure : / mmHG Vent. Rate : 076 BPM Atrial Rate : 078 BPM P-R Int : 000 ms QRS Dur : 132 ms QT Int : 446 ms P-R-T Axes : 000 -33 005 degrees QTc Int : 501 ms Atrial fibrillation Left axis deviation Right bundle branch block Abnormal ECG Confirmed by MARICARMEN GALINDO, MARCK ([id number]), scientific publications editor WILLIS HAWKINS ([id number]) on 04/04/2021 9:33:52 AM Referred By: AYLA Confirmed By:MARCK HERNADEZ MD
--- NOTE | 2021-04-02 16:50 | PCM.HP.STD ---
HPI - General General Date of Admission: 04/02/21 HPI Narrative MILTON HERMOSILLO, is a 75 F who presents from SNF with shortness of breath and chest pain. She says it is worsened with slight ambulation to the restroom and was not relieved with rest, though she did have some mild improvement after a nitroglycerin in the ER. She denies having this chest pain prior to today. She was placed on oxygen by EMS because of an oxygen saturation of 88% on room air. She did have an echo in January 2021 that showed an EF of 60% with severe concentric left ventricular hypertrophy. She states that she has gained weight as well and has had increasing edema over the last several months. She denies any lightheadedness or dizziness. Chest x-ray in the ER did demonstrate mild right pleural effusion with central congestion. [facility] Medical History (Updated 04/02/21 @ 17:[address] Artur Miranda MD) Atherosclerosis of coronary artery without angina pectoris Bone cancer Cholelithiasis Chronic back pain Chronic diastolic (congestive) heart failure CKD (chronic kidney disease) stage 3, GFR 30-59 ml/min Essential (primary) hypertension Goiter History of urinary incontinence Hyperlipidemia Hypothyroidism Longstanding persistent atrial fibrillation Moderate aortic stenosis Morbid obesity 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 Nonrheumatic aortic (valve) stenosis Osteoarthritis PVD (peripheral vascular disease) Right bundle branch block (RBBB) Sick sinus syndrome Sleep apnea Type II diabetes mellitus Home Medications metoprolol succinate 50 mg PO DAILY 10/11/17 [History Last Taken 05/18/20] prasugrel 10 mg PO DAILY 06/04/18 [History Last Taken 05/18/20] duloxetine 30 mg PO DAILY 11/18/18 [History Last Taken 05/18/20] isosorbide mononitrate 90 mg PO DAILY 02/29/20 [History Last Taken 05/18/20] levothyroxine 50 mcg PO DAILY 02/29/20 [History Last Taken 05/18/20] furosemide 20 mg tablet 20 mg PO BID tab 04/19/20 [History Last Taken 05/18/20] levetiracetam 500 mg tablet 500 mg PO BID tab 04/19/20 [History Last Taken 05/18/20] omeprazole 20 mg PO DAILY 05/18/20 [History Last Taken 05/18/20] acetaminophen 650 mg PO Q6H PRN PRN tab 05/22/20 [Rx Last Taken Unknown] fluticasone propionate 2 spray NARES BID 12/13/20 [History Last Taken Unknown] nitroglycerin 0.4 mg SUBLINGUAL PRN PRN 12/13/20 [History Last Taken Unknown] atorvastatin 20 mg tablet 20 mg PO QHS 01/05/21 [History Last Taken Unknown] bisacodyl 10 mg rectal suppository 10 mg RC QHS PRN 01/05/21 [History Last Taken Unknown] insulin glargine 100 unit/mL (3 mL) subcutaneous pen 60 unit SC QPM ml 01/05/21 [History Last Taken Unknown] insulin lispro 100 unit/mL subcutaneous pen 15 unit SC TIDCM ml 01/05/21 [History Last Taken Unknown] latanoprost 0.005 % eye drops 1 drp EACH EYE QHS 01/05/21 [History Last Taken Unknown] sennosides 8.6 mg capsule 8.6 mg PO BID 01/05/21 [History Last Taken Unknown] memantine 10 mg PO BID #1 tablet 01/06/21 [Rx Last Taken Unknown] cetirizine 10 mg PO DAILY 01/22/21 [History Last Taken Unknown] donepezil 10 mg PO QHS 01/22/21 [History Last Taken Unknown] acetaminophen 650 mg PO Q6H PRN PRN tablet 01/23/21 [Rx Last Taken Unknown] amlodipine 5 mg PO DAILY tablet 01/23/21 [Rx Last Taken Unknown] hydrocodone-acetaminophen 1 tab PO BID PRN 04/02/21 [History Last Taken Unknown] Allergy/AdvReac Type Severity Reaction Status Date / Time atorvastatin calcium Allergy dont Verified 04/02/21 09:11 [From Lipitor] remember codeine Allergy Rash Verified 04/02/21 09:11 iodine Allergy Rash Verified 04/02/21 09:11 Latex, Natural Rubber Allergy Rash Verified 04/02/21 09:11 lovastatin Allergy Rash Verified 04/02/21 09:11 rosuvastatin calcium Allergy rash\ Verified 04/02/21 09:11 [From Crestor] tositumomab Allergy PT UNSURE Verified 04/02/21 09:11 OF REACTION naproxen [From Naprosyn] AdvReac Upset Verified 04/02/21 09:11 Stomach pregabalin [From Lyrica] AdvReac Upset Verified 04/02/21 09:11 Stomach Sulfa (Sulfonamide AdvReac Upset Verified 04/02/21 09:11 Antibiotics) Stomach Family History Other Cancer Surgical History History of coronary artery stent placement (01/25/11) History of hysterectomy History of loop recorder (2013) History of permanent cardiac pacemaker placement (03/05/17) History of thyroidectomy Social History household members: none housing: long term Smoking Status: Former smoker details: Not presently substance use type: does not use ROS Constitutional Constitutional: Denies chills, fatigue, fever(s) or malaise Eyes Eyes: Denies blurry vision ENT HEENT: Denies headache(s) or nasal discharge Cardiovascular Cardiovascular: Reports chest pain; Denies dyspnea on exertion or syncope Respiratory/Chest Respiratory/Chest: Reports shortness of breath at rest and shortness of breath with exertion; Denies cough Gastrointestinal Gastrointestinal: Denies constipation, diarrhea, nausea or vomiting Genitourinary Genitourinary: Denies dysuria Neurologic Neurologic: Denies focal weakness, numbness or tremor(s) Psychiatric Psychiatric: Denies anxiety or depression Vital Signs Vital Signs Vital Signs: 04/02/21 09:02 04/02/21 12:47 04/02/21 13:55 Temperature 97.9 F 97.8 F 97.6 F L Temperature Source Temporal Temporal Oral Pulse Rate 83 75 77 Respiratory Rate 24 H 25 H 16 Respiratory Effort Short of Breath Labored Accessory Muscle Use Respiratory Pattern Tachypnea Blood Pressure 141/71 H 164/89 H 146/81 H Blood Pressure Mean 94 114 102 Blood Pressure Source Monitor Blood Pressure Position Semi-Fowlers Blood Pressure Location Right Arm Pulse Ox 93 96 95 Oxygen Delivery Method Nasal Cannula Nasal Cannula Nasal Cannula Oxygen Flow Rate (L/min) 2 2 2 04/02/21 14:10 04/02/21 14:38 Temperature Temperature Source Pulse Rate 78 Respiratory Rate Respiratory Effort Respiratory Pattern Blood Pressure Blood Pressure Mean Blood Pressure Source Blood Pressure Position Blood Pressure Location Pulse Ox 94 Oxygen Delivery Method Nasal Cannula Oxygen Flow Rate (L/min) 2 Weight Weight: 243 lb 8 oz Body Mass Index (BMI) 41.8 Physical Exam Const alert, oriented x3 and no apparent distress General Appearance: cooperative HEENT normocephalic and moist oral mucous membranes Eyes PERRL, EOMs intact bilaterally and conjunctivae normal Neck supple and no JVD Resp normal respiratory effort, no retractions, no use of accessory muscles and clear to auscultation bilaterally Auscultation: diminished lung sounds right throughout; Negative for crackles, rales, rhonchi or wheezes Cardio regular rate, regular rhythm, S1 normal heart sound, S2 normal heart sound and no murmurs GI soft to palpation, non-tender and non-distended; Negative for hepatosplenomegaly Extremity General Extremity: edema bilateral lower extremity Details: trace; Negative for clubbing or cyanosis Skin no rashes or lesions noted Neuro no focal motor deficits and no sensory deficits noted Psych affect normal Appearance: appropriate Results Lab / Micro Data Result Diagrams: 04/02/21 09:04 04/02/21 09:04 Labs: Laboratory Results - last 24 hr 04/02/21 04/02/21 04/02/21 09:04 09:04 14:25 WBC 10.3 RBC 4.60 Hgb 11.7 L Hct 38.8 MCV 84.3 MCH 25.4 L MCHC 30.2 L RDW Std Deviation 44.7 H RDW Coeff of Candace 14.8 H Plt Count 256 MPV 12.0 Immature Gran % (Auto) 0.800 Neut % (Auto) 68.9 Lymph % (Auto) 19.4 [place] % (Auto) 7.5 Eos % (Auto) 2.7 Baso % (Auto) 0.7 Absolute Neuts (auto) 7.1 Absolute Lymphs (auto) 1.99 Nucleated RBC % 0.2 Sodium 142 Potassium 4.3 Chloride 104 Carbon Dioxide 31.0 Anion Gap 7 BUN 21 H Creatinine 1.11 H Estim Creat Clear Calc 36.65 Est GFR (MDRD) Af Amer 61 Est GFR (MDRD) Non-Af 51 L BUN/Creatinine Ratio 18.9 Glucose 172 H Calcium 8.8 Total Bilirubin 0.60 AST 24 ALT 31 Alkaline Phosphatase 156 H Troponin I < 0.015 < 0.015 Total Protein 7.5 Albumin 3.1 L Globulin 4.4 H Albumin/Globulin Ratio 0.7 L ABG Data ABG results: ABG 04/02/21 09:19 Specimen Type ANUJ VBG pH 7.40 VBG pO2 38 VBG HCO3 28 H VBG Total CO2 30 VBG O2 Sat (Calc) 71 H VBG Base Excess 3 POC Mix VBG pCO2 Pt Tmp 45.6 Radiology Impression Chest X-Ray 04/02/21 09:02 IMPRESSION: Mild right-sided pleural effusion with heavy markings centrally. Mild cardiomegaly Electronically Signed: Soco Lemus, at 9:37 EDT Tel , Service support , Assessment & Plan Assessment/Plan (1) Hypoxia: (2) Acute on chronic diastolic CHF (congestive heart failure): (3) History of coronary artery stent placement: (4) Longstanding persistent atrial fibrillation: (5) Sick sinus syndrome: (6) Chest pain: PLAN: 1. Acute hypoxia with chest pain/acute on chronic diastolic CHF/HTN/HLD/CAD status post stent/history of CVA -Chest pain occurred with ambulation today, initial 2 troponins were negative -EKG is nonischemic, last stress test was in 2018, repeat stress test in a.m. -Chest x-ray with mild pleural effusion and central congestion -Echo was done a few months ago, will not repeat -BNP is minimally elevated to 229, she was given a dose of IV Lasix in the ER, continue with twice daily IV Lasix -Daily weights, I's and O's, fluid restriction of 1500 cc -Resume her Norvasc, Imdur, metoprolol -Continue with prasugrel -Pacemaker is in place 2. IDDM 2 -Continue with her home insulin -Calorie controlled diet -Accu-Cheks AC at bedtime 3. Hypothyroidism -Stable -Continue Synthroid 4. Seizure disorder -Stable -Continue with Keppra 5. Anxiety/depression/dementia -Stable -Continue with Cymbalta, memantine, donepezil DVT: Lovenox Charges/Coding Visit Charges OBSV E&M: 03460 Initial observation care L3
[2021-04-02] MEDS: 0.9% Saline Lock 10 ML Syringe IV (18:45)
[2021-04-02] MEDS: Insulin Lispro 100 UNIT/ML INSULN.PEN 15 UNIT SC (19:00)
[2021-04-02] MEDS: Donepezil HCl 10 MG Tablet PO (20:51)
[2021-04-02] MEDS: Fluticasone 0.05% 1 SPRAY NASAL.SRY 2 SPRAY NASAL (20:51)
[2021-04-02] MEDS: levETIRAcetam 500 MG Tablet PO (20:51)
[2021-04-02] MEDS: Memantine Hydrochloride 10 MG Tablet PO (20:51)
[2021-04-02] MEDS: Atorvastatin Calcium 20 MG Tablet PO (20:51)
[2021-04-02] MEDS: Latanoprost 0.005% 1 Bottle 1 DRP OPHTHALMIC (20:52)
[2021-04-02] MEDS: Insulin Lispro 100 UNIT/ML INSULN.PEN SC (20:53)
[2021-04-03] VITALS (13 sets, daily range): BP systolic 100–145; BP diastolic 54–75; PULSE 80–108; RESP 16–20; TEMP 36.4–36.8; O2SAT 94–97
--- NOTE | 2021-04-03 05:30 | NURSING ---
Patient requested evening medications when this RN was rounding at 5. Request granted.
--- NOTE | 2021-04-03 05:55 | EKG12_ITS ---
Test Reason : AM EKG Blood Pressure : / mmHG Vent. Rate : 099 BPM Atrial Rate : 076 BPM P-R Int : 000 ms QRS Dur : 130 ms QT Int : 404 ms P-R-T Axes : 000 -41 028 degrees QTc Int : 518 ms Atrial fibrillation Left axis deviation Right bundle branch block Abnormal ECG When compared with ECG of 02-APR-2021 14:11, MANUAL COMPARISON REQUIRED, DATA IS UNCONFIRMED Confirmed by TAM GALINDO, LORRAINE ([id number]), department editor WILLIS HAWKINS ([id number]) on 04/06/2021 11:32:19 AM Referred By: ALYSSIA Confirmed By:LORRAINE TURCIOS MD
[2021-04-03] MEDS: Levothyroxine 50 MCG Tablet PO (06:14)
[2021-04-03 07:11] LABS: Absolute Lymphocyte Count 1.61 X10^3/uL (0.83-4.51); Absolute Neutrophil Count 8.4 X10^3/uL (2.0-7.7); Basophil# 0.07 X10^3/uL; Basophil% 0.6 % (0-1); Eosinophil# 0.28 X10^3/uL; Eosinophils% 2.5 % (0-5); Hematocrit 39.1 % (37-47); Hemoglobin 11.8 g/dL (12.0-15.0); Lymphocyte # 1.61 X10^3/ul (0.83-4.51); Lymphocyte % 14.4 % (19-41); Mean Corp Hgb Conc 30.2 g/dL (32-36); Mean Corpuscular Hgb 25.6 pg (27.0-32.0); Mean Corpuscular Volume 84.8 fL (81-99); Monocyte# 0.77 X10^3/uL; Monocyte% 6.9 % (0-10); NRBC Flagged by Analyzer 0 % (0-5); Neutrophil # 8.36 X10^3/uL (2.7-7.7); Neutrophil % 75.1 % (47-70); Platelet Count 247 K/mm3 (150-450); RBC Distribution Width CV 14.8 % (11.6-14.6); RBC Distribution Width SD 45.2 fl (35.1-43.9); Red Blood Count 4.61 M/mm3 (4.2-5.4); White Blood Count 11.2 K/mm3 (4.4-11.0)
[2021-04-03 07:42] LABS: Anion Gap 6 (5-15); BUN 20 mg/dL (7-18); Chloride 104 mmol/L (98-107); Creatinine, Serum 1.11 mg/dL (0.55-1.02); EST Glomerular Filtration Rate 51 mL/min (>60); Est Glom Filt Rate - Afr Amer 61 mL/min (>60); Estimated Creatinine Clearance 36.65 ml/min; Glucose 94 mg/dL (74-106); Potassium 3.9 mmol/L (3.5-5.1); Sodium Level 143 mmol/L (136-145)
[2021-04-03] MEDS: Acetaminophen 325 MG Tablet 650 MG PO ×2 (07:47→14:08)
[2021-04-03 08:38] LABS: Bedside Glucose 218 mg/dL (70-110)
[2021-04-03 08:38] LABS: Bedside Glucose 216 mg/dL (70-110)
--- NOTE | 2021-04-03 10:11 | CASEMGMT ---
Patient is from [facility]. faxed information to [facility]. Tonja Benavidez [employer]
[2021-04-03] MEDS: DULoxetine Hcl 30 MG Capsule PO (10:23)
[2021-04-03] MEDS: amLODIPine 5 MG Tablet PO (10:23)
[2021-04-03] MEDS: HYDROcodone Bitartrate/Apap 5/325 Tablet PO (10:23)
[2021-04-03] MEDS: levETIRAcetam 500 MG Tablet PO ×2 (10:24→20:45)
[2021-04-03] MEDS: Pantoprazole Sodium 20 MG Tablet PO (10:24)
[2021-04-03] MEDS: Memantine Hydrochloride 10 MG Tablet PO ×2 (10:24→20:46)
[2021-04-03] MEDS: Fluticasone 0.05% 1 SPRAY NASAL.SRY 2 SPRAY NASAL (10:24)
[2021-04-03] MEDS: Metoprolol(XL)Succ 50 MG Tablet PO (10:24)
[2021-04-03] MEDS: Isosorbide Mononitrate 30 MG Tablet 90 MG PO (10:24)
[2021-04-03 11:10] LABS: Bedside Glucose 96 mg/dL (70-110)
[2021-04-03 12:30] LABS: Bedside Glucose 96 mg/dL (70-110)
--- NOTE | 2021-04-03 12:58 | STRESSREP ---
Stress Test Report Date: 04-03-2021 Procedure: Pharmacologic stress nuclear imaging study Indications: Chest pain; CAD; PCI; atrial fibrillation; permanent pacemaker Consent: Per the patient Procedure: The patient underwent pharmacologic (Regadenoson 0.4mg ) evaluation with a peak heart rate of 121 beats per minute (84%predicted maximal heart rate) and a peak blood pressure of 146/80 mmHg. The baseline ECG demonstrated atrial fibrillation; right bundle branch block pattern. The peak pharmacologic ECG demonstrated no obvious ECG changes. There were no cardiac dysrhythmias pretest, during pharmacologic infusion, or recovery. There was chest discomfort/left upper extremity discomfort pretest, during infusion, and recovery. The examination was discontinued secondary to completion of protocol. Impression: 1. Pharmacologic (Regadenoson) evaluation 2. Peak pharmacologic ECG with continued atrial fibrillation with a right bundle branch block pattern. 3. There were no cardiac dysrhythmias pretest, during pharmacologic infusion, or recovery. 4. Nuclear images pending Myocardial perfusion imaging study: Technique: The patient was injected with 15.0 millicuries of technetium 99m Cardiolite and subsequently rest SPECT Cardiolite nuclear imaging was obtained in the horizontal long, vertical long, and short axis views. The patient underwent pharmacologic (Regadenoson) evaluation with a peak heart rate of 121 beats per minute (84% percent predicted maximal heart rate) and a peak blood pressure of 146/80 mmHg. The patient was injected with 44.2 millicuries of technetium 99m Cardiolite and subsequently stress SPECT Cardiolite nuclear imaging was obtained in the horizontal long, vertical long, and short axis views. A gated Cardiolite study at peak stress was obtained. Interpretation: Rest and stress SPECT Cardiolite nuclear imaging status post realignment, normalization, and attenuation correction demonstrate the appearance of an area of diminished myocardial perfusion/tracer uptake in portions of the basal to mid lateral segments which status post stress appears to be more prominent especially in the mid lateral segments. There is end systolic thickening and brightening. The gated Cardiolite study demonstrates myocardial thickening and inward wall motion. The reported LVEF is 52%. Impression: 1. Rest and stress SPECT her nuclear imaging demonstrate myocardial perfusion changes in portions of the basal to mid lateral segments which appear to be more prominent following stress in the mid lateral segments potentially compatible with an area of previous myocardial injury with post-rest findings compatible with periinjury related myocardial ischemia. 2. The gated Cardiolite study reports an LVEF of 52%. This note was generated with [employer] software. It may contain incorrect words, spelling, and punctuation that were not noted in checking the note before signing.
[2021-04-03] MEDS: Furosemide 40 MG/4 ML Vial IV ×2 (14:03→17:28)
[2021-04-03] MEDS: 0.9% Saline Lock 10 ML Syringe IV ×3 (14:05→17:28)
--- NOTE | 2021-04-03 14:23 | PCM.PN.HOSP ---
Subjective Subjective No issues overnight, still with mild to moderate chest pain intermittently. She is maintaining her oxygen saturations on room air and has had good urine output Objective Data Objective Data Vital Signs: Vital Signs Temp Pulse Resp BP Pulse Ox 97.9 F 108 H 18 126/72 H 95 04/03/21 10:18 04/03/21 10:24 04/03/21 10:18 04/03/21 10:18 04/03/21 10:18 Oxygen Flow Rate (L/min) 2 Oxygen Delivery Method Room Air Weight: 229 lb 15.074 oz Body Mass Index (BMI) 41.8 Intake & Output: Intake and Output for Last 24 Hours 04/02/21 04/03/21 04/04/21 03:59 03:59 03:59 Intake Total 600 / 600 0 / 0 Output Total 1450 / 1450 900 / 900 Balance -850 / -850 -900 / -900 Lab / Micro Data Result Diagrams: 04/03/21 06:40 04/03/21 06:40 Labs: Laboratory Results - last 24 hr 04/02/21 04/02/21 04/02/21 14:25 17:55 18:49 WBC RBC Hgb Hct MCV MCH MCHC RDW Std Deviation RDW Coeff of Candace Plt Count MPV Immature Gran % (Auto) Neut % (Auto) Lymph % (Auto) [place] % (Auto) Eos % (Auto) Baso % (Auto) Absolute Neuts (auto) Absolute Lymphs (auto) Nucleated RBC % Sodium Potassium Chloride Carbon Dioxide Anion Gap BUN Creatinine Estim Creat Clear Calc Est GFR (MDRD) Af Amer Est GFR (MDRD) Non-Af BUN/Creatinine Ratio Glucose Calcium Troponin I < 0.015 < 0.015 POC Glucose 218 H 04/02/21 04/03/21 04/03/21 20:50 06:19 06:40 WBC 11.2 H RBC 4.61 Hgb 11.8 L Hct 39.1 MCV 84.8 MCH 25.6 L MCHC 30.2 L RDW Std Deviation 45.2 H RDW Coeff of Candace 14.8 H Plt Count 247 MPV 12.0 Immature Gran % (Auto) 0.500 Neut % (Auto) 75.1 H Lymph % (Auto) 14.4 L [place] % (Auto) 6.9 Eos % (Auto) 2.5 Baso % (Auto) 0.6 Absolute Neuts (auto) 8.4 H Absolute Lymphs (auto) 1.61 Nucleated RBC % 0 Sodium Potassium Chloride Carbon Dioxide Anion Gap BUN Creatinine Estim Creat Clear Calc Est GFR (MDRD) Af Amer Est GFR (MDRD) Non-Af BUN/Creatinine Ratio Glucose Calcium Troponin I POC Glucose 216 H 96 04/03/21 04/03/21 06:40 12:28 WBC RBC Hgb Hct MCV MCH MCHC RDW Std Deviation RDW Coeff of Candace Plt Count MPV Immature Gran % (Auto) Neut % (Auto) Lymph % (Auto) [place] % (Auto) Eos % (Auto) Baso % (Auto) Absolute Neuts (auto) Absolute Lymphs (auto) Nucleated RBC % Sodium 143 Potassium 3.9 Chloride 104 Carbon Dioxide 33.0 H Anion Gap 6 BUN 20 H Creatinine 1.11 H Estim Creat Clear Calc 36.65 Est GFR (MDRD) Af Amer 61 Est GFR (MDRD) Non-Af 51 L BUN/Creatinine Ratio 18.0 Glucose 94 Calcium 9.0 Troponin I POC Glucose 96 Physical Exam Const alert, oriented x3 and no apparent distress General Appearance: cooperative HEENT normocephalic and moist oral mucous membranes Eyes PERRL, EOMs intact bilaterally and conjunctivae normal Neck supple and no JVD Resp normal respiratory effort, no retractions, no use of accessory muscles and clear to auscultation bilaterally Auscultation: diminished lung sounds right throughout; Negative for crackles, rales, rhonchi or wheezes Cardio regular rate, regular rhythm, S1 normal heart sound, S2 normal heart sound and no murmurs GI soft to palpation, non-tender and non-distended; Negative for hepatosplenomegaly Extremity General Extremity: edema bilateral lower extremity Details: trace; Negative for clubbing or cyanosis Skin no rashes or lesions noted Neuro no focal motor deficits and no sensory deficits noted Psych affect normal Appearance: appropriate Assessment & Plan Assessment/Plan (1) Hypoxia: (2) Acute on chronic diastolic CHF (congestive heart failure): (3) History of coronary artery stent placement: (4) Longstanding persistent atrial fibrillation: (5) Sick sinus syndrome: (6) Chest pain: PLAN: 1. Acute hypoxia with chest pain/acute on chronic diastolic CHF/HTN/HLD/CAD status post stent/history of CVA -Chest pain occurred with ambulation today, initial 2 troponins were negative -EKG is nonischemic, last stress test was in 2018, repeat stress test in a.m. -Chest x-ray with mild pleural effusion and central congestion -Echo was done a few months ago, will not repeat -BNP is minimally elevated to 229, she was given a dose of IV Lasix in the ER, continue with twice daily IV Lasix -Daily weights, I's and O's, fluid restriction of 1500 cc -Resume her Norvasc, Imdur, metoprolol -Continue with prasugrel -Pacemaker is in place -Stress test was abnormal, will consult cardiology. Will provide her with some morphine for her chest pain. 2. IDDM 2 -Continue with her home insulin -Calorie controlled diet -Accu-Cheks AC at bedtime 3. Hypothyroidism -Stable -Continue Synthroid 4. Seizure disorder -Stable -Continue with Keppra 5. Anxiety/depression/dementia -Stable -Continue with Cymbalta, memantine, donepezil DVT: Lovenox Charges/Coding Visit Charges OBSV E&M: 84132 Subsequent observation care L2
[2021-04-03] MEDS: Morphine 2 MG/ML Syringe IV (14:24)
--- NOTE | 2021-04-03 14:32 | CASEMGMT ---
This RN CM to room with VIGIL form, explanation done-pt voices understanding, and signs VIGIL form. Pt is A/Ox4. Original to chart and copy to pt. Pt voices no further questions/concerns/needs. [place] THIAGO CM
[2021-04-03 15:35] LABS: Bedside Glucose 108 mg/dL (70-110)
--- NOTE | 2021-04-03 16:37 | PCM.CONS.C ---
Assessment & Plan Assessment/Plan (1) Chest pain: QUALIFIERS: Ischemic chest pain type: unstable angina pectoris PLAN: The patient has rest discomfort which is mixed some of which appears to be musculoskeletal based upon being able to be reproduced on palpation and some of it appears to be concerning for unstable angina pectoris. The patient has had cardiac enzymes which have been negative. Her ECG demonstrated atrial fibrillation with no acute ECG changes. Her pharmacologic stress nuclear imaging study was considered to be abnormal in the lateral distribution. At the present time she will continue to be monitored and continue medical management. Further evaluation with diagnostic cardiac catheterization was discussed with the patient. The procedure and risk were discussed with her. She was agreeable to this approach. (2) Abnormal stress test: PLAN: The patient does have an abnormal stress test. It does raise concerns in the lateral distribution. At the present time the patient will continue medical therapy. She is agreeable to proceeding with further evaluation with diagnostic cardiac catheterization. (3) CAD (coronary artery disease): QUALIFIERS: Coronary Disease-Associated Artery/Lesion type: [place] artery [place] vs. transplanted heart: [place] heart Associated angina: with unstable angina Qualified Code(s): I25.110 - Atherosclerotic heart disease of [place] coronary artery with unstable angina pectoris PLAN: The patient has a history of underlying CAD leading to LAD PCI and LCx/OM PCI. At the present time the patient will continue medical management. As her stress test is abnormal it has been recommended she undergo further evaluation with diagnostic cardiac catheterization. The procedure and risk were discussed with her. She was agreeable to this approach. (4) History of coronary artery stent placement: PLAN: The patient's revascularization history was reviewed. She does have revascularization in the lateral distribution where her stress test is noted to be abnormal. Thus she will continue evaluation care as noted. (5) Chronic diastolic (congestive) heart failure: PLAN: The patient is reported as having history of chronic diastolic CHF. She does not appear to have any acute issues at the moment. She will continue medical therapy and follow-up. (6) Moderate aortic stenosis: PLAN: The patient has a history of aortic valve stenosis. She has undergone evaluation with transthoracic echocardiogram earlier this year. The results are as noted. (7) Sick sinus syndrome: PLAN: The patient is reported as having history of sick sinus syndrome leading to permanent pacemaker placement. (8) Longstanding persistent atrial fibrillation: PLAN: The patient has a history of atrial fibrillation. She is not been on anticoagulant therapy. This issue may need to be reconsidered depending upon her overall status and the risk-benefit ratio. (9) History of permanent cardiac pacemaker placement: PLAN: The patient is reported as having her PPM evaluated earlier this year. It was reported as functioning appropriately. It can be reassessed as needed. (10) Hyperlipidemia: QUALIFIERS: Hyperlipidemia type: unspecified Qualified Code(s): E78.5 - Hyperlipidemia, unspecified PLAN: The patient should continue risk factor evaluation care as deemed appropriate. (11) Essential (primary) hypertension: PLAN: The patient's blood pressure can be followed with her medications adjusted accordingly. Addt'l Comments The above was discussed with the patient. She was agreeable to this approach. This note was generated using a voice recognition system and there may be incorrect words, spelling or punctuation that were not noted when reviewing the office note prior to saving. HPI Consult Data Date of Consult: 04/03/21 HPI Narrative HPI Narrative: MILTON HERMOSILLO, is a 75 white female who presents for further evaluation of chest discomfort and an abnormal pharmacologic stress nuclear imaging study superimposed upon a history of underlying CAD, PCI, chronic diastolic mediated CHF, aortic valve stenosis, atrial fibrillation, and PPM placement. The patient states that for some time now she has been having chest discomfort which is somewhat reproducible by palpation. However she states recently she has noted additional jaw discomfort and left upper extremity discomfort. She has been short of breath and dyspneic especially with exertion. She has denied any obvious acute orthopnea or PND. She has had an element of bilateral lower extremity peripheral pitting edema. She states she has blackout spells . She states she can be sitting in the chair and wake up later not thinking she fell asleep but instead thinking she blacked out. She has presented to the hospital for further evaluation. She had cardiac enzymes performed which were negative. Her ECG demonstrated atrial fibrillation. She underwent a pharmacologic stress nuclear imaging study. This was considered abnormal. She has been referred for further evaluation including consideration for diagnostic cardiac catheterization. [facility] Medical History (Updated 04/03/21 @ 16:[address] 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 Nonrheumatic aortic (valve) stenosis Osteoarthritis PVD (peripheral vascular disease) Right bundle branch block (RBBB) Sick sinus syndrome Sleep apnea Type II diabetes mellitus Home Medications metoprolol succinate 50 mg PO DAILY 10/11/17 [History Last Taken 05/18/20] prasugrel 10 mg PO DAILY 06/04/18 [History Last Taken 05/18/20] duloxetine 30 mg PO DAILY 11/18/18 [History Last Taken 05/18/20] isosorbide mononitrate 90 mg PO DAILY 02/29/20 [History Last Taken 05/18/20] levothyroxine 50 mcg PO DAILY 02/29/20 [History Last Taken 05/18/20] furosemide 20 mg tablet 20 mg PO BID tab 04/19/20 [History Last Taken 05/18/20] levetiracetam 500 mg tablet 500 mg PO BID tab 04/19/20 [History Last Taken 05/18/20] omeprazole 20 mg PO DAILY 05/18/20 [History Last Taken 05/18/20] acetaminophen 650 mg PO Q6H PRN PRN tab 05/22/20 [Rx Last Taken Unknown] fluticasone propionate 2 spray NARES BID 12/13/20 [History Last Taken Unknown] nitroglycerin 0.4 mg SUBLINGUAL PRN PRN 12/13/20 [History Last Taken Unknown] atorvastatin 20 mg tablet 20 mg PO QHS 01/05/21 [History Last Taken Unknown] bisacodyl 10 mg rectal suppository 10 mg RC Q8 PRN 01/05/21 [History Last Taken Unknown] insulin glargine 100 unit/mL (3 mL) subcutaneous pen 60 unit SC QPM ml 01/05/21 [History Last Taken Unknown] insulin lispro 100 unit/mL subcutaneous pen 15 unit SC TIDCM ml 01/05/21 [History Last Taken Unknown] latanoprost 0.005 % eye drops 1 drp EACH EYE QHS 01/05/21 [History Last Taken Unknown] sennosides 8.6 mg capsule 8.6 mg PO BID 01/05/21 [History Last Taken Unknown] memantine 10 mg PO BID #1 tablet 01/06/21 [Rx Last Taken Unknown] cetirizine 10 mg PO DAILY 01/22/21 [History Last Taken Unknown] donepezil 10 mg PO QHS 01/22/21 [History Last Taken Unknown] acetaminophen 650 mg PO Q6H PRN PRN tablet 01/23/21 [Rx Last Taken Unknown] amlodipine 5 mg PO DAILY tablet 01/23/21 [Rx Last Taken Unknown] bisacodyl [Dulcolax (bisacodyl)] 5 mg PO BID PRN 04/02/21 [History Last Taken Unknown] hydrocodone-acetaminophen 0.5 tab PO BID PRN 04/02/21 [History Last Taken Unknown] hydrocodone-acetaminophen [Tyler] 1 tab PO BID PRN 04/02/21 [History Last Taken Unknown] magnesium hydroxide [Milk of Magnesia] 400 mg PO DAILY PRN 04/02/21 [History Last Taken Unknown] polyethylene glycol 3350 [Miralax] 17 g PO DAILY PRN 04/02/21 [History Last Taken Unknown] Allergy/AdvReac Type Severity Reaction Status Date / Time atorvastatin calcium Allergy dont Verified 04/02/21 09:11 [From Lipitor] remember codeine Allergy Rash Verified 04/02/21 09:11 iodine Allergy Rash Verified 04/02/21 09:11 Latex, Natural Rubber Allergy Rash Verified 04/02/21 09:11 lovastatin Allergy Rash Verified 04/02/21 09:11 rosuvastatin calcium Allergy rash\ Verified 04/02/21 09:11 [From Crestor] tositumomab Allergy PT UNSURE Verified 04/02/21 09:11 OF REACTION naproxen [From Naprosyn] AdvReac Upset Verified 04/02/21 09:11 Stomach pregabalin [From Lyrica] AdvReac Upset Verified 04/02/21 09:11 Stomach Sulfa (Sulfonamide AdvReac Upset Verified 04/02/21 09:11 Antibiotics) Stomach Family History Other Cancer Surgical History History of coronary artery stent placement (01/25/11) History of hysterectomy History of loop recorder (2013) History of permanent cardiac pacemaker placement (03/05/17) History of thyroidectomy Social History household members: none housing: fdc Smoking Status: Former smoker details: Not presently substance use type: does not use ROS Constitutional Constitutional: Reports as per HPI Eyes Eyes: Reports as per HPI ENT HEENT: Reports as per HPI Cardiovascular Cardiovascular: Reports chest pain, chest pain at rest, chest pain with activity, dyspnea, dyspnea at rest, dyspnea on exertion, edema and syncope Respiratory/Chest Respiratory/Chest: Reports dyspnea and dyspnea on exertion Gastrointestinal Gastrointestinal: Reports as per HPI Musculoskeletal Musculoskeletal: Reports as per HPI and other Details: Chest pain upon palpation Neurologic Neurologic: Reports as per HPI Procedure Criteria Type of Procedure Procedure Type: Elective Elective Risks - COVID COVID Risk Discussion: The surgeon/proceduralist and patient have discussed in detail the risk of exposure to and/or potential harm posed by the COVID-19 virus with having a surgery/procedure at this time versus the risk of delaying the surgery/procedure. It is not possible to know either the risk of delaying the surgery or procedure or chance of getting an infection with perfect accuracy, but a joint decision was made between the patient and the surgeon/proceduralist to proceed at this time with the scheduled surgery/procedure as indicated on the consent form. Objective Data Vital Signs: Vital Signs Temp Pulse Resp BP Pulse Ox 98.1 F 101 H 18 106/59 L 94 04/03/21 15:50 04/03/21 15:50 04/03/21 15:50 04/03/21 15:50 04/03/21 15:50 Oxygen Flow Rate (L/min) 2 Oxygen Delivery Method Room Air Weight: 229 lb 15.074 oz Body Mass Index (BMI) 41.8 Intake & Output: Intake and Output for Last 24 Hours 04/01/21 04/02/21 04/03/21 23:59 23:59 23:59 Intake Total 480 / 600 120 / 120 Output Total 300 / 1450 2049 Balance 180 / -850 -1930 / -1930 Lab / Micro Data Result Diagrams: 04/03/21 06:40 04/03/21 06:40 Labs: Laboratory Results - last 24 hr 04/02/21 04/02/21 04/02/21 17:55 18:49 20:50 WBC RBC Hgb Hct MCV MCH MCHC RDW Std Deviation RDW Coeff of Candace Plt Count MPV Immature Gran % (Auto) Neut % (Auto) Lymph % (Auto) [place] % (Auto) Eos % (Auto) Baso % (Auto) Absolute Neuts (auto) Absolute Lymphs (auto) Nucleated RBC % Sodium Potassium Chloride Carbon Dioxide Anion Gap BUN Creatinine Estim Creat Clear Calc Est GFR (MDRD) Af Amer Est GFR (MDRD) Non-Af BUN/Creatinine Ratio Glucose Calcium Troponin I < 0.015 POC Glucose 218 H 216 H 04/03/21 04/03/21 04/03/21 06:19 06:40 06:40 WBC 11.2 H RBC 4.61 Hgb 11.8 L Hct 39.1 MCV 84.8 MCH 25.6 L MCHC 30.2 L RDW Std Deviation 45.2 H RDW Coeff of Candace 14.8 H Plt Count 247 MPV 12.0 Immature Gran % (Auto) 0.500 Neut % (Auto) 75.1 H Lymph % (Auto) 14.4 L [place] % (Auto) 6.9 Eos % (Auto) 2.5 Baso % (Auto) 0.6 Absolute Neuts (auto) 8.4 H Absolute Lymphs (auto) 1.61 Nucleated RBC % 0 Sodium 143 Potassium 3.9 Chloride 104 Carbon Dioxide 33.0 H Anion Gap 6 BUN 20 H Creatinine 1.11 H Estim Creat Clear Calc 36.65 Est GFR (MDRD) Af Amer 61 Est GFR (MDRD) Non-Af 51 L BUN/Creatinine Ratio 18.0 Glucose 94 Calcium 9.0 Troponin I POC Glucose 96 04/03/21 04/03/21 10:53 12:28 WBC RBC Hgb Hct MCV MCH MCHC RDW Std Deviation RDW Coeff of Candace Plt Count MPV Immature Gran % (Auto) Neut % (Auto) Lymph % (Auto) [place] % (Auto) Eos % (Auto) Baso % (Auto) Absolute Neuts (auto) Absolute Lymphs (auto) Nucleated RBC % Sodium Potassium Chloride Carbon Dioxide Anion Gap BUN Creatinine Estim Creat Clear Calc Est GFR (MDRD) Af Amer Est GFR (MDRD) Non-Af BUN/Creatinine Ratio Glucose Calcium Troponin I POC Glucose 108 96 Cardiology Labs/Tests 04/02/21 17:55: Troponin I < 0.015 04/03/21 06:40: WBC 11.2 H, RBC 4.61, Hgb 11.8 L, Hct 39.1, MCV 84.8, MCH 25.6 L, MCHC 30.2 L, Plt Count 247, MPV 12.0, Immature Gran % (Auto) 0.500, Neut % (Auto) 75.1 H, Lymph % (Auto) 14.4 L, [place] % (Auto) 6.9, Eos % (Auto) 2.5, Baso % (Auto) 0.6, Absolute Neuts (auto) 8.4 H, Nucleated RBC % 0 04/03/21 06:40: Sodium 143, Potassium 3.9, Chloride 104, Carbon Dioxide 33.0 H, Anion Gap 6, BUN 20 H, Creatinine 1.11 H, Est GFR (MDRD) Af Amer 61, Est GFR (MDRD) Non-Af 51 L, BUN/Creatinine Ratio 18.0, Glucose 94, Calcium 9.0 Rhythm: Atrial fibrillation EKG: Atrial fibrillation ECHO: 01-11-2021 Interpretation Summary Normal LV size. Left ventricular systolic function is normal. The estimated ejection fraction is 60 %. Severe concentric left ventricular hypertrophy. ICD or pacer leads identified within the right ventricle. Moderate aortic stenosis. Calculated aortic valve area (continuity equation) is 0.9 cm2. Stress Test: Date: 04-03-2021 Procedure: Pharmacologic stress nuclear imaging study Indications: Chest pain; CAD; PCI; atrial fibrillation; permanent pacemaker Consent: Per the patient Procedure: The patient underwent pharmacologic (Regadenoson 0.4mg ) evaluation with a peak heart rate of 121 beats per minute (84%predicted maximal heart rate) and a peak blood pressure of 146/80 mmHg. The baseline ECG demonstrated atrial fibrillation; right bundle branch block pattern. The peak pharmacologic ECG demonstrated no obvious ECG changes. There were no cardiac dysrhythmias pretest, during pharmacologic infusion, or recovery. There was chest discomfort/left upper extremity discomfort pretest, during infusion, and recovery. The examination was discontinued secondary to completion of protocol. Impression: 1. Pharmacologic (Regadenoson) evaluation 2. Peak pharmacologic ECG with continued atrial fibrillation with a right bundle branch block pattern. 3. There were no cardiac dysrhythmias pretest, during pharmacologic infusion, or recovery. 4. Nuclear images pending Myocardial perfusion imaging study: Technique: The patient was injected with 15.0 millicuries of technetium 99m Cardiolite and subsequently rest SPECT Cardiolite nuclear imaging was obtained in the horizontal long, vertical long, and short axis views. The patient underwent pharmacologic (Regadenoson) evaluation with a peak heart rate of 121 beats per minute (84% percent predicted maximal heart rate) and a peak blood pressure of 146/80 mmHg. The patient was injected with 44.2 millicuries of technetium 99m Cardiolite and subsequently stress SPECT Cardiolite nuclear imaging was obtained in the horizontal long, vertical long, and short axis views. A gated Cardiolite study at peak stress was obtained. Interpretation: Rest and stress SPECT Cardiolite nuclear imaging status post realignment, normalization, and attenuation correction demonstrate the appearance of an area of diminished myocardial perfusion/tracer uptake in portions of the basal to mid lateral segments which status post stress appears to be more prominent especially in the mid lateral segments. There is end systolic thickening and brightening. The gated Cardiolite study demonstrates myocardial thickening and inward wall motion. The reported LVEF is 52%. Impression: 1. Rest and stress SPECT her nuclear imaging demonstrate myocardial perfusion changes in portions of the basal to mid lateral segments which appear to be more prominent following stress in the mid lateral segments potentially compatible with an area of previous myocardial injury with post-rest findings compatible with periinjury related myocardial ischemia. 2. The gated Cardiolite study reports an LVEF of 52%. Cardiac Cath: ??2010: [place], [place] Left main coronary artery: Reported as free of obstructive disease Left anterior descending coronary artery: Proximal to mid 30 to 35% stenosis; proximal stent patent LCx: Proximal 25 to 30% stenosis; inferior lateral marginal branch with bifurcating lesion approaching 80% with a smaller caliber subdivision having proximal 80% stenosis Right coronary artery: Diffuse 20 to 30% stenosis Left ventricle: Normal with an LVEF of 65% PCI: 01-25-2011: [place], [place] PCI/SITA to the inferolateral marginal branch and balloon angioplasty to recanalize a smaller caliber subdivision CXR: IMPRESSION: Mild right-sided pleural effusion with heavy markings centrally. Mild cardiomegaly Electronically Signed: Soco Lemus, at 9:37 EDT
--- NOTE | 2021-04-03 16:59 | CHAPLAIN ---
Type of Pastoral Visit _x__ Initial Visit ___ Follow-up Visit ___ On-call Visit ___ General Patient Visit ___ Spiritual Assessment ___ Family Conference ___ Bereavement ___ Rapid Response ___ Code Blue ___ Other (describe below) Pastoral Care Referral From _x__ Patient ___ Family ___ Nurse ___ Physician ___ Plastic Parts Designer ___ Towboat Operator ___ Other (describe below) Sacrament/Intervention _x__ Active listening ___ Anointing ___ Faith ___ Bereavement ___ Communion _x__ [place]ierra exploration ___ _x__ Life review _x__ Prayer ___ Reconciliation ___ Sacrament of Sick _x__ Supportive presence ___ Wedding ___ Other (describe below) Pastoral Comments patient states concern about getting answers for her health needs and finding relief from her pain in ears; pt states that in her later years she is becoming more spiritual and is open to God's work and direction; prayer and presence were welcomed by pt as would be for the future too
[2021-04-03] MEDS: Insulin Lispro 100 UNIT/ML INSULN.PEN SC ×2 (17:28→20:47)
[2021-04-03] MEDS: Insulin Lispro 100 UNIT/ML INSULN.PEN 15 UNIT SC (17:28)
[2021-04-03 17:36] LABS: Bedside Glucose 294 mg/dL (70-110)
[2021-04-03] MEDS: Atorvastatin Calcium 20 MG Tablet PO (20:45)
[2021-04-03] MEDS: Donepezil HCl 10 MG Tablet PO (20:45)
[2021-04-03] MEDS: Latanoprost 0.005% 1 Bottle 1 DRP OPHTHALMIC (20:46)
[2021-04-03 22:36] LABS: Bedside Glucose 221 mg/dL (70-110)
[2021-04-04] VITALS (19 sets, daily range): BP systolic 95–144; BP diastolic 54–83; PULSE 71–91; RESP 16–18; TEMP 36.3–36.6; O2SAT 90–96
[2021-04-04 04:51] LABS: Absolute Lymphocyte Count 1.92 X10^3/uL (0.83-4.51); Absolute Neutrophil Count 8.4 X10^3/uL (2.0-7.7); Basophil# 0.08 X10^3/uL; Basophil% 0.7 % (0-1); Eosinophil# 0.24 X10^3/uL; Eosinophils% 2.1 % (0-5); Hematocrit 39.2 % (37-47); Lymphocyte # 1.92 X10^3/ul (0.83-4.51); Lymphocyte % 16.5 % (19-41); Mean Corp Hgb Conc 30.6 g/dL (32-36); Mean Corpuscular Hgb 25.4 pg (27.0-32.0); Mean Corpuscular Volume 83.1 fL (81-99); Mean Platelet Vol. 11.3 fl (6.2-12.0); Monocyte% 8.6 % (0-10); NRBC Flagged by Analyzer 0 % (0-5); Neutrophil # 8.37 X10^3/uL (2.7-7.7); Neutrophil % 71.8 % (47-70); Platelet Count 267 K/mm3 (150-450); RBC Distribution Width CV 14.8 % (11.6-14.6); Red Blood Count 4.72 M/mm3 (4.2-5.4); White Blood Count 11.6 K/mm3 (4.4-11.0)
[2021-04-04] MEDS: Isosorbide Mononitrate 30 MG Tablet 90 MG PO (05:17)
[2021-04-04] MEDS: Levothyroxine 50 MCG Tablet PO (05:17)
[2021-04-04] MEDS: Metoprolol(XL)Succ 50 MG Tablet PO (05:17)
[2021-04-04] MEDS: amLODIPine 5 MG Tablet PO (05:17)
[2021-04-04 05:22] LABS: Anion Gap 6 (5-15); BUN 27 mg/dL (7-18); BUN/Creat Ratio 20.8 RATIO (10-20); Chloride 102 mmol/L (98-107); EST Glomerular Filtration Rate 42 mL/min (>60); Est Glom Filt Rate - Afr Amer 51 mL/min (>60); Estimated Creatinine Clearance 31.29 ml/min; Glucose 135 mg/dL (74-106); Potassium 3.7 mmol/L (3.5-5.1); Sodium Level 141 mmol/L (136-145)
--- NOTE | 2021-04-04 05:55 | EKG12_ITS ---
Test Reason : AM Blood Pressure : / mmHG Vent. Rate : 084 BPM Atrial Rate : 078 BPM P-R Int : 000 ms QRS Dur : 136 ms QT Int : 452 ms P-R-T Axes : 000 -47 008 degrees QTc Int : 534 ms Atrial fibrillation Left axis deviation Right bundle branch block Abnormal ECG Confirmed by MARICARMEN GALINDO, MARCK ([id number]), dictionary editor WILLIS HAWKINS ([id number]) on 04/05/2021 12:34:16 PM Referred By: ALYSSIA Confirmed By:MARCK HERNADEZ MD
[2021-04-04 06:31] LABS: Bedside Glucose 151 mg/dL (70-110)
--- NOTE | 2021-04-04 08:10 | CASEMGMT ---
According to the [facility] website, the following are in-network tertiary facilities: [facility], [facility], [facility], [facility], [facility], [facility], [facility], [place], [facility], and . Philip DAS CM
--- NOTE | 2021-04-04 08:16 | PCM.PN.CARD ---
Subjective Subjective Patient seen and evaluated. Underwent cardiac catheterization today. Objective Data Vital Signs: Vital Signs Temp Pulse Resp BP Pulse Ox 97.6 F L 86 16 127/73 H 92 04/04/21 06:15 04/04/21 06:36 04/04/21 06:15 04/04/21 06:15 04/04/21 06:15 Oxygen Flow Rate (L/min) 2 Oxygen Delivery Method Room Air Weight: 226 lb 13.69 oz Body Mass Index (BMI) 41.8 Intake & Output: Intake and Output for Last 24 Hours 04/02/21 04/03/21 04/04/21 23:59 23:59 23:59 Intake Total 480 / 600 520 / 640 120 / 120 Output Total 300 / 1450 2050 / 2350 1300 / 1300 Balance 180 / -850 -1530 / -1710 -1180 / -1180 Lab / Micro Data Result Diagrams: 04/04/21 04:44 04/04/21 04:44 Labs: Laboratory Results - last 24 hr 04/02/21 04/02/21 04/03/21 18:49 20:50 06:19 WBC RBC Hgb Hct MCV MCH MCHC RDW Std Deviation RDW Coeff of Candace Plt Count MPV Immature Gran % (Auto) Neut % (Auto) Lymph % (Auto) [place] % (Auto) Eos % (Auto) Baso % (Auto) Absolute Neuts (auto) Absolute Lymphs (auto) Nucleated RBC % Sodium Potassium Chloride Carbon Dioxide Anion Gap BUN Creatinine Estim Creat Clear Calc Est GFR (MDRD) Af Amer Est GFR (MDRD) Non-Af BUN/Creatinine Ratio Glucose Calcium POC Glucose 218 H 216 H 96 04/03/21 04/03/21 04/03/21 10:53 12:28 17:26 WBC RBC Hgb Hct MCV MCH MCHC RDW Std Deviation RDW Coeff of Candace Plt Count MPV Immature Gran % (Auto) Neut % (Auto) Lymph % (Auto) [place] % (Auto) Eos % (Auto) Baso % (Auto) Absolute Neuts (auto) Absolute Lymphs (auto) Nucleated RBC % Sodium Potassium Chloride Carbon Dioxide Anion Gap BUN Creatinine Estim Creat Clear Calc Est GFR (MDRD) Af Amer Est GFR (MDRD) Non-Af BUN/Creatinine Ratio Glucose Calcium POC Glucose 108 96 294 H 04/03/21 04/04/2121 20:44 04:44 04:44 WBC 11.6 H RBC 4.72 Hgb 12.0 Hct 39.2 MCV 83.1 MCH 25.4 L MCHC 30.6 L RDW Std Deviation 45.0 H RDW Coeff of Candace 14.8 H Plt Count 267 MPV 11.3 Immature Gran % (Auto) 0.300 Neut % (Auto) 71.8 H Lymph % (Auto) 16.5 L [place] % (Auto) 8.6 Eos % (Auto) 2.1 Baso % (Auto) 0.7 Absolute Neuts (auto) 8.4 H Absolute Lymphs (auto) 1.92 Nucleated RBC % 0 Sodium 141 Potassium 3.7 Chloride 102 Carbon Dioxide 33.0 H Anion Gap 6 BUN 27 H Creatinine 1.30 H Estim Creat Clear Calc 31.29 Est GFR (MDRD) Af Amer 51 L Est GFR (MDRD) Non-Af 42 L BUN/Creatinine Ratio 20.8 H Glucose 135 H Calcium 9.0 POC Glucose 221 H 04/04/21 06:04 WBC RBC Hgb Hct MCV MCH MCHC RDW Std Deviation RDW Coeff of Candace Plt Count MPV Immature Gran % (Auto) Neut % (Auto) Lymph % (Auto) [place] % (Auto) Eos % (Auto) Baso % (Auto) Absolute Neuts (auto) Absolute Lymphs (auto) Nucleated RBC % Sodium Potassium Chloride Carbon Dioxide Anion Gap BUN Creatinine Estim Creat Clear Calc Est GFR (MDRD) Af Amer Est GFR (MDRD) Non-Af BUN/Creatinine Ratio Glucose Calcium POC Glucose 151 H Cardiology Labs/Tests 04/04/21 04:44: WBC 11.6 H, RBC 4.72, Hgb 12.0, Hct 39.2, MCV 83.1, MCH 25.4 L, MCHC 30.6 L, Plt Count 267, MPV 11.3, Immature Gran % (Auto) 0.300, Neut % (Auto) 71.8 H, Lymph % (Auto) 16.5 L, [place] % (Auto) 8.6, Eos % (Auto) 2.1, Baso % (Auto) 0.7, Absolute Neuts (auto) 8.4 H, Nucleated RBC % 0 04/04/21 04:44: Sodium 141, Potassium 3.7, Chloride 102, Carbon Dioxide 33.0 H, Anion Gap 6, BUN 27 H, Creatinine 1.30 H, Est GFR (MDRD) Af Amer 51 L, Est GFR (MDRD) Non-Af 42 L, BUN/Creatinine Ratio 20.8 H, Glucose 135 H, Calcium 9.0 Rhythm: EKG: ECHO: Stress Test: Cardiac Cath: PCI: CT Surgery: Holter monitor: EPS: PPM: CXR: Chest CT Scan: Physical Exam Const oriented x3 and healthy appearing Orientation / Consciousness: awake HEENT normocephalic Eyes PERRL and conjunctivae normal Neck supple, no JVD and no carotid bruits Chest inspection of chest normal Resp normal respiratory effort and clear to auscultation bilaterally Cardio Cardio Narrative: Irregular heart rate Palpation: normal PMI Rate: regular rate Rhythm: regular rhythm Heart Sounds: S1 normal and S2 normal Peripheral Pulses: pulses 2+ throughout GI normal to inspection, nondistended, normoactive bowel sounds Extremity normal to inspection and no clubbing, cyanosis or edema Psych mental status grossly normal Assessment & Plan Assessment/Plan (1) CAD (coronary artery disease): QUALIFIERS: Associated angina: with unstable angina Coronary Disease-Associated Artery/Lesion type: [place] artery [place] vs. transplanted heart: [place] heart Qualified Code(s): I25.110 - Atherosclerotic heart disease of [place] coronary artery with unstable angina pectoris PLAN: Cardiac catheterization today demonstrated patency of the left main coronary artery, patency of the left anterior descending artery stent, and patency of the left circumflex artery stents. Mild right coronary artery disease was noted. Based on the above angiographic findings patient to be continued with current medical therapy. From the cardiac standpoint the patient can probably be discharged for outpatient follow-up. (2) Longstanding persistent atrial fibrillation: PLAN: Patient appears to have longstanding atrial fibrillation. We will continue with rate control with a beta-danita and anticoagulation as necessary. (3) History of coronary artery stent placement: PLAN: Patient has previous angioplasty and stenting procedures as noted above. We will continue current medical therapy. (4) Essential (primary) hypertension: PLAN: Patient has a history of hypertension which appears to be well controlled on the current medical therapy. Will review medications. (5) History of permanent cardiac pacemaker placement: PLAN: Patient has a single lead ventricular pacemaker. We will continue to follow this in our pacemaker office. (6) Chronic diastolic (congestive) heart failure: PLAN: She has a history of diastolic heart failure. Her ejection fraction is preserved. She will continue with low-dose diuretics. (7) Nonrheumatic aortic (valve) stenosis: PLAN: She has a hyperdynamic ventricle with mild aortic stenosis only. No intervention is necessary at this time.
[2021-04-04] MEDS: 0.9% Normal Saline 1,000 ML 75 ML IV (08:40)
[2021-04-04] MEDS: Fluticasone 0.05% 1 SPRAY NASAL.SRY 2 SPRAY NASAL ×2 (08:55→20:17)
[2021-04-04] MEDS: levETIRAcetam 500 MG Tablet PO ×2 (08:56→20:18)
[2021-04-04] MEDS: Memantine Hydrochloride 10 MG Tablet PO ×2 (08:57→20:18)
[2021-04-04] MEDS: DULoxetine Hcl 30 MG Capsule PO (08:57)
[2021-04-04] MEDS: Pantoprazole Sodium 20 MG Tablet PO (08:57)
[2021-04-04 09:35] LABS: Bedside Glucose 146 mg/dL (70-110)
[2021-04-04] MEDS: Insulin Lispro 100 UNIT/ML INSULN.PEN 15 UNIT SC ×3 (09:45→16:52)
[2021-04-04] MEDS: Insulin Lispro 100 UNIT/ML INSULN.PEN SC ×3 (11:25→20:18)
[2021-04-04 11:31] LABS: Bedside Glucose 216 mg/dL (70-110)
--- NOTE | 2021-04-04 12:20 | PN.HOSP_ITS ---
Subjective Subjective States that her chest pain is better, she had a heart cath today which was unremarkable and her previous stents are patent. Creatinine is slightly elevated today. And she still has not worked with physical therapy yet. Objective Data Objective Data Vital Signs: Vital Signs Temp Pulse Resp BP Pulse Ox 97.4 F L 91 18 95/70 95 04/04/21 11:00 04/04/21 11:00 04/04/21 11:00 04/04/21 11:00 04/04/21 11:00 Oxygen Flow Rate (L/min) 2 Oxygen Delivery Method Room Air Weight: 226 lb 13.69 oz Body Mass Index (BMI) 41.8 Intake & Output: Intake and Output for Last 24 Hours 04/03/21 04/04/21 04/05/21 03:59 03:59 03:59 Intake Total 600 / 600 520 / 520 0 / 0 Output Total 1450 / 1450 1200 / 1200 1000 / 1000 Balance -850 / -850 -680 / -680 -1000 / -1000 Lab / Micro Data Result Diagrams: 04/04/21 04:44 04/04/21 04:44 Labs: Laboratory Results - last 24 hr 04/03/21 04/03/21 04/03/21 10:53 12:28 17:26 WBC RBC Hgb Hct MCV MCH MCHC RDW Std Deviation RDW Coeff of Candace Plt Count MPV Immature Gran % (Auto) Neut % (Auto) Lymph % (Auto) [place] % (Auto) Eos % (Auto) Baso % (Auto) Absolute Neuts (auto) Absolute Lymphs (auto) Nucleated RBC % Sodium Potassium Chloride Carbon Dioxide Anion Gap BUN Creatinine Estim Creat Clear Calc Est GFR (MDRD) Af Amer Est GFR (MDRD) Non-Af BUN/Creatinine Ratio Glucose Calcium POC Glucose 108 96 294 H 04/03/21 04/04/21 04/04/21 20:44 04:44 04:44 WBC 11.6 H RBC 4.72 Hgb 12.0 Hct 39.2 MCV 83.1 MCH 25.4 L MCHC 30.6 L RDW Std Deviation 45.0 H RDW Coeff of Candace 14.8 H Plt Count 267 MPV 11.3 Immature Gran % (Auto) 0.300 Neut % (Auto) 71.8 H Lymph % (Auto) 16.5 L [place] % (Auto) 8.6 Eos % (Auto) 2.1 Baso % (Auto) 0.7 Absolute Neuts (auto) 8.4 H Absolute Lymphs (auto) 1.92 Nucleated RBC % 0 Sodium 141 Potassium 3.7 Chloride 102 Carbon Dioxide 33.0 H Anion Gap 6 BUN 27 H Creatinine 1.30 H Estim Creat Clear Calc 31.29 Est GFR (MDRD) Af Amer 51 L Est GFR (MDRD) Non-Af 42 L BUN/Creatinine Ratio 20.8 H Glucose 135 H Calcium 9.0 POC Glucose 221 H 04/04/21 04/04/21 04/04/21 06:04 09:30 11:23 WBC RBC Hgb Hct MCV MCH MCHC RDW Std Deviation RDW Coeff of Candace Plt Count MPV Immature Gran % (Auto) Neut % (Auto) Lymph % (Auto) [place] % (Auto) Eos % (Auto) Baso % (Auto) Absolute Neuts (auto) Absolute Lymphs (auto) Nucleated RBC % Sodium Potassium Chloride Carbon Dioxide Anion Gap BUN Creatinine Estim Creat Clear Calc Est GFR (MDRD) Af Amer Est GFR (MDRD) Non-Af BUN/Creatinine Ratio Glucose Calcium POC Glucose 151 H 146 H 216 H Physical Exam Const alert, oriented x3 and no apparent distress General Appearance: cooperative HEENT normocephalic and moist oral mucous membranes Eyes PERRL, EOMs intact bilaterally and conjunctivae normal Neck supple and no JVD Resp normal respiratory effort, no retractions, no use of accessory muscles and clear to auscultation bilaterally Auscultation: diminished lung sounds right throughout; Negative for crackles, rales, rhonchi or wheezes Cardio regular rate, regular rhythm, S1 normal heart sound, S2 normal heart sound and no murmurs GI soft to palpation, non-tender and non-distended; Negative for hepatosplenomegaly Extremity no clubbing, cyanosis or edema General Extremity: edema bilateral lower extremity Details: trace; Negative for clubbing or cyanosis Skin no rashes or lesions noted Neuro no focal motor deficits and no sensory deficits noted Psych affect normal Appearance: appropriate Assessment & Plan Assessment/Plan (1) Hypoxia: (2) Acute on chronic diastolic CHF (congestive heart failure): (3) History of coronary artery stent placement: (4) Longstanding persistent atrial fibrillation: (5) Sick sinus syndrome: (6) Chest pain: QUALIFIERS: Ischemic chest pain type: unstable angina pectoris PLAN: 1. Acute hypoxia with chest pain/acute on chronic diastolic CHF/HTN/HLD/CAD status post stent/history of CVA -Chest pain occurred with ambulation on admission, initial 2 troponins were negative -EKG is nonischemic, last stress test was in 2018, repeat stress test in a.m. -Chest x-ray with mild pleural effusion and central congestion -Echo was done a few months ago, will not repeat -BNP is minimally elevated to 229, she was given a dose of IV Lasix in the ER -Daily weights, I's and O's, fluid restriction of 1500 cc -Continue with her Norvasc, Imdur, metoprolol -Continue with prasugrel, will restart her Xarelto that she had been on previously. I discussed with her daughter if she understood the reason why she was removed from the Xarelto and she did not know. The daughter denies any history with GI bleed. -Pacemaker is in place -Stress test was abnormal, cardiology proceed with heart cath 04/01/2021, which was unremarkable. -Creatinine bumped to 1.3 today therefore hold her Lasix, and monitor her creatinine in the morning. She also may need to go to physical therapy to determine whether or not she can return to the assisted living or if she needs to go to skilled 2. IDDM 2 -Continue with her home insulin -Calorie controlled diet -Accu-Cheks AC at bedtime 3. Hypothyroidism -Stable -Continue Synthroid 4. Anxiety/depression/dementia -Stable -Continue with Cymbalta, memantine, donepezil DVT: Lovenox Charges/Coding Visit Charges Inpatient E&M: 83183 Subs Hosp L2
[2021-04-04] MEDS: HYDROcodone Bitartrate/Apap 5/325 Tablet PO (13:40)
[2021-04-04] MEDS: Acetaminophen 325 MG Tablet 650 MG PO (13:40)
--- NOTE | 2021-04-04 13:45 | CASEMGMT ---
SW spoke with patient about her discharge plan. SW told her SW is talking with Ochoa at [facility] to make sure they are ok with her returning to [place]. She said she could do therapy in assisted living. SW told her SW is aware, but SW is waiting to hear from Ochoa. Tonja Benavidez COUNTY EXTENSION AGENT JANETTE
[2021-04-04 17:01] LABS: Bedside Glucose 355 mg/dL (70-110)
[2021-04-04] MEDS: Latanoprost 0.005% 1 Bottle 1 DRP OPHTHALMIC (20:17)
[2021-04-04] MEDS: Atorvastatin Calcium 20 MG Tablet PO (20:17)
[2021-04-04] MEDS: Donepezil HCl 10 MG Tablet PO (20:18)
[2021-04-04 22:21] LABS: Bedside Glucose 421 mg/dL (70-110)
[2021-04-05] VITALS (10 sets, daily range): BP systolic 117–150; BP diastolic 51–82; PULSE 70–88; RESP 18; TEMP 36.1–36.6; O2SAT 96–100
[2021-04-05] MEDS: Levothyroxine 50 MCG Tablet PO (02:59)
[2021-04-05 05:27] LABS: Absolute Lymphocyte Count 1.08 X10^3/uL (0.83-4.51); Absolute Neutrophil Count 13.3 X10^3/uL (2.0-7.7); Basophil# 0.04 X10^3/uL; Basophil% 0.3 % (0-1); Hemoglobin 11.2 g/dL (12.0-15.0); Lymphocyte # 1.08 X10^3/ul (0.83-4.51); Lymphocyte % 7.1 % (19-41); Mean Corp Hgb Conc 30.3 g/dL (32-36); Mean Corpuscular Hgb 25.2 pg (27.0-32.0); Mean Corpuscular Volume 83.3 fL (81-99); Monocyte# 0.67 X10^3/uL; Monocyte% 4.4 % (0-10); NRBC Flagged by Analyzer 0 % (0-5); Neutrophil # 13.26 X10^3/uL (2.7-7.7); Neutrophil % 87.7 % (47-70); Platelet Count 269 K/mm3 (150-450); RBC Distribution Width CV 14.6 % (11.6-14.6); RBC Distribution Width SD 44.4 fl (35.1-43.9); Red Blood Count 4.44 M/mm3 (4.2-5.4); White Blood Count 15.1 K/mm3 (4.4-11.0)
[2021-04-05 05:42] LABS: Anion Gap 8 (5-15); BUN 35 mg/dL (7-18); BUN/Creat Ratio 23.8 RATIO (10-20); Calcium,Total 9.3 mg/dL (8.5-10.1); Chloride 100 mmol/L (98-107); Creatinine, Serum 1.47 mg/dL (0.55-1.02); EST Glomerular Filtration Rate 37 mL/min (>60); Est Glom Filt Rate - Afr Amer 44 mL/min (>60); Estimated Creatinine Clearance 27.68 ml/min; Glucose 279 mg/dL (74-106); Potassium 4.1 mmol/L (3.5-5.1); Sodium Level 136 mmol/L (136-145)
[2021-04-05] MEDS: Insulin Lispro 100 UNIT/ML INSULN.PEN 15 UNIT SC ×4 (08:12→21:49)
[2021-04-05] MEDS: Insulin Lispro 100 UNIT/ML INSULN.PEN SC ×4 (08:12→21:53)
[2021-04-05] MEDS: Pantoprazole Sodium 20 MG Tablet PO (08:13)
[2021-04-05] MEDS: DULoxetine Hcl 30 MG Capsule PO (08:13)
[2021-04-05] MEDS: Metoprolol(XL)Succ 50 MG Tablet PO (08:13)
[2021-04-05] MEDS: Isosorbide Mononitrate 30 MG Tablet 90 MG PO (08:13)
[2021-04-05] MEDS: levETIRAcetam 500 MG Tablet PO ×2 (08:14→21:49)
[2021-04-05] MEDS: Fluticasone 0.05% 1 SPRAY NASAL.SRY 2 SPRAY NASAL ×2 (08:14→21:52)
[2021-04-05] MEDS: amLODIPine 5 MG Tablet PO (08:14)
[2021-04-05] MEDS: Memantine Hydrochloride 10 MG Tablet PO ×2 (08:14→21:49)
[2021-04-05 08:25] LABS: Bedside Glucose 262 mg/dL (70-110)
[2021-04-05 09:44] LABS: Bacteria 0 SEEN /hpf (None Seen); Mucous, Urine 0 SEEN /hpf (<or=2+); Red Blood Cells-Urine 0 SEEN /hpf (0-5)
[2021-04-05 09:48] LABS: Color, Urine Yellow (Yellow); Glucose, Dipstick 100 mg/dl (Normal); Ketone-Dipstick Negative (Negative); Leukocyte Esterase-Dipstick 25 /ul (Negative); Nitrite-Dipstick Negative (Negative); Occult Blood-Urine 10 /ul (Negative); Protein-Dipstick 30 mg/dl (Negative); Urine Bilirubin Dipstick Negative (Negative); Urine Clarity Clear (Clear); Urine Urobilinogen Normal (Normal)
[2021-04-05 09:53] LABS: Squamous Epithelial Cells - UA 0-5 SEEN /hpf (5-10); White Blood Cells 0-5 SEEN /hpf (0-5)
--- NOTE | 2021-04-05 10:42 | CASEMGMT ---
MINAL faxed updated PT/OT from today to Ochoa at [facility]. Await response from him. Tonja Benavidez DENTAL HYGIENIST MOBILE COORDINATOR JANETTE
[2021-04-05 12:00] LABS: Bedside Glucose 285 mg/dL (70-110)
--- NOTE | 2021-04-05 12:27 | CASEMGMT ---
MINAL had faxed updated PT/OT to Ochoa at [facility]. MINAL then called Ochoa and his voice mail said he is out of the office. His message said to call Rosa. MINAL called Rosa and a message came up indicating voice mail has not been set up. MINAL then called Rhea on the longterm side of [facility] ([facility]) and she said the public address servicer at [facility] was supposed to call MINAL to send the referral to [facility] as therapy said she needs SNF. MINAL faxed referral to [facility]. MINAL went to patient's room and let her know that Nadirlon Poon wants her to go to the longterm side for therapy before she returns to [place]. She was on the phone with her daughter Cinthia. She told MINAL to tell her daughter. MINAL spoke with Cinthia, introduced self and role at [facility]. MINAL let her know about [facility] preferring patient go to the nursing home side. She was okay with this. MINAL gave the phone back to patient. Plan: [facility] pending pre-cert. Tonja Benavidez SCCM ADMINISTRATORArnaldo SAVAGE
--- NOTE | 2021-04-05 12:31 | CL.D_ITS ---
Patient Name: MILTON HERMOSILLO Study Date: 04/04/2021 Performing: Trip Forman MD Ht: 64 inches 163 cm : 1945 Wt: 227.4 lbs 103 kg Age: 75 Gender: female BSA: 2.07 PROCEDURE(S) PERFORMED OT54-CWT/COR/LV CLINICAL PROFILE AND INDICATIONS Indications: Suspected CAD Heart Failure: NYHA Class: 2, Newly Diagnosed: No, Heart Failure Type: Diastolic Stress/Imaging Date: 04/03/21ress Test with SPECT MPI: Positive Intermediate Risk CAD Presentations: Symptom unlikely to be ischemic. CONCLUSIONS Known coronary artery disease with previously placed stent in the left anterior descending artery not ed to be patent in the proximal to mid region; the left circumflex artery also has a mid segment with a stent which is patent. The right coronary artery is dominant with mild luminal irregularities. M ild aortic root calcification is present. RECOMMENDATIONS Medical therapy DESCRIPTION OF PROCEDURE The patient arrived to the procedure lab. The risks and benefits of the procedure as well as a full d escription of our services here and current unavailability of surgical backup were fully explained to the patient and/or their significant other prior to the catheterization. The Timeout was completed, verifying the correct patient and procedure. The patient's procedural site was prepped and draped in the usual fashion. Local anesthetic was given subcutaneously to right radial region with Lidocaine 2% . Using a modified Seldinger technique, arterial access was obtained via the right radial artery, a 6 Fr sheath was inserted. Left Coronary Artery selective angiography was performed in multiple views u sing a 5 Fr. 4.0 [place] catheter. Right Coronary Artery selective angiography was then performed in mu ltiple views using a 5 Fr. 3DRC (Bari) catheter. Left Ventriculography was performed in FITZGERALD proje ction using a 5 Fr. Pigtail catheter. LV to AO pullback pressures were then recorded.The arterial sheath was pulled and a TR Band was applied for hemostasis. Sheath flushed prior to removal. 12cc air inserted. CORONARY ANGIOGRAPHY DOMINANCE: Right Dominant LEFT HEART ASSESSMENT Left Ventricular Ejection Fraction: by LV Gram 70 % Normal LV wall motion Normal Left Ventricular systolic function LEFT MAIN: Mild calcification, No significant disease noted LEFT ANTERIOR DESCENDING ARTERY: Previously placed stent is patent, Mild luminal irregularities less than 30% CIRCUMFLEX ARTERY: Mild luminal irregularities less than 30% MID CIRC: Previously placed stent is patent RIGHT CORONARY ARTERY: Mild luminal irregularities less than 30% COMPLICATIONS No Complications PROCEDURE MEDICATIONS Fentanyl 50 mcg IV Versed 1 mg IV Oxygen: 2 L/min via nasal cannula Benadryl 25 mg IV @ 04/04/2021 07:44:14 Heparin given IA 04/04/2021 07:49:17 Solu-medrol 125 mg IV 04/04/2021 07:44:19 SUMMARY OF HEMODYNAMIC DATA Time AIR REST ECG 07:35:24 AO 99/57 (77) SA 07:55:52 AO 116/66 (90) 08:05:13 LV 152/14, 25 08:09:23 LV 155/13, 21 08:09:29 LV 159/18, 26 08:10:09 LVp 160/13, 23 08:10:24 AOp 145/64 (71) 08:10:29 Signed By Trip Forman MD On 04/04/2021 08:27:11 Trip Forman MD
--- NOTE | 2021-04-05 15:14 | PN.HOSP_ITS ---
Subjective Subjective Well today, no issues overnight. Denies any worsening shortness of breath or cough. She denies any dysuria. No fevers overnight. White blood cell count this morning was elevated to 15.1 therefore a UA was obtained which was unremarkable. Objective Data Objective Data Vital Signs: Vital Signs Temp Pulse Resp BP Pulse Ox 97.8 F 82 18 150/82 H 96 04/05/21 08:05 04/05/21 11:05 04/05/21 08:05 04/05/21 08:05 04/05/21 08:05 Oxygen Flow Rate (L/min) 2 Oxygen Delivery Method Room Air Weight: 232 lb 12.93 oz Body Mass Index (BMI) 41.8 Intake & Output: Intake and Output for Last 24 Hours 04/04/21 04/05/21 04/06/21 03:59 03:59 03:59 Intake Total 520 / 520 1646.25 / 1646.25 410 / 410 Output Total 1200 / 1200 1400 / 1400 650 / 650 Balance -680 / -680 246.25 / 246.25 -240 / -240 Lab / Micro Data Result Diagrams: 04/05/21 05:14 04/05/21 05:14 Labs: Laboratory Results - last 24 hr 04/04/21 04/04/21 04/05/21 16:51 20:14 05:14 WBC 15.1 H RBC 4.44 Hgb 11.2 L Hct 37.0 MCV 83.3 MCH 25.2 L MCHC 30.3 L RDW Std Deviation 44.4 H RDW Coeff of Candace 14.6 Plt Count 269 MPV 12.0 Immature Gran % (Auto) 0.500 Neut % (Auto) 87.7 H Lymph % (Auto) 7.1 L [place] % (Auto) 4.4 Eos % (Auto) 0.0 Baso % (Auto) 0.3 Absolute Neuts (auto) 13.3 H Absolute Lymphs (auto) 1.08 Nucleated RBC % 0 Sodium Potassium Chloride Carbon Dioxide Anion Gap BUN Creatinine Estim Creat Clear Calc Est GFR (MDRD) Af Amer Est GFR (MDRD) Non-Af BUN/Creatinine Ratio Glucose Calcium Urine Color Urine Clarity Urine pH Ur Specific [place] Urine Protein Urine Glucose (UA) Urine Ketones Urine Occult Blood Urine Nitrite Urine Bilirubin Urine Urobilinogen Ur Leukocyte Esterase Urine RBC Urine WBC Ur Squamous Epith Cells Urine Bacteria Urine Mucus POC Glucose 355 H 421 H 04/05/21 04/05/21 04/05/21 05:14 08:10 09:25 WBC RBC Hgb Hct MCV MCH MCHC RDW Std Deviation RDW Coeff of Candace Plt Count MPV Immature Gran % (Auto) Neut % (Auto) Lymph % (Auto) [place] % (Auto) Eos % (Auto) Baso % (Auto) Absolute Neuts (auto) Absolute Lymphs (auto) Nucleated RBC % Sodium 136 Potassium 4.1 Chloride 100 Carbon Dioxide 28.0 Anion Gap 8 BUN 35 H Creatinine 1.47 H Estim Creat Clear Calc 27.68 Est GFR (MDRD) Af Amer 44 L Est GFR (MDRD) Non-Af 37 L BUN/Creatinine Ratio 23.8 H Glucose 279 H Calcium 9.3 Urine Color Yellow Urine Clarity Clear Urine pH 5.0 Ur Specific [place] 1.020 Urine Protein 30 H Urine Glucose (UA) 100 H Urine Ketones Negative Urine Occult Blood 10 H Urine Nitrite Negative Urine Bilirubin Negative Urine Urobilinogen Normal Ur Leukocyte Esterase 25 H Urine RBC 0 SEEN Urine WBC 0-5 SEEN Ur Squamous Epith Cells 0-5 SEEN Urine Bacteria 0 SEEN Urine Mucus 0 SEEN POC Glucose 262 H 04/05/21 11:53 WBC RBC Hgb Hct MCV MCH MCHC RDW Std Deviation RDW Coeff of Candace Plt Count MPV Immature Gran % (Auto) Neut % (Auto) Lymph % (Auto) [place] % (Auto) Eos % (Auto) Baso % (Auto) Absolute Neuts (auto) Absolute Lymphs (auto) Nucleated RBC % Sodium Potassium Chloride Carbon Dioxide Anion Gap BUN Creatinine Estim Creat Clear Calc Est GFR (MDRD) Af Amer Est GFR (MDRD) Non-Af BUN/Creatinine Ratio Glucose Calcium Urine Color Urine Clarity Urine pH Ur Specific [place] Urine Protein Urine Glucose (UA) Urine Ketones Urine Occult Blood Urine Nitrite Urine Bilirubin Urine Urobilinogen Ur Leukocyte Esterase Urine RBC Urine WBC Ur Squamous Epith Cells Urine Bacteria Urine Mucus POC Glucose 285 H Physical Exam Const alert, oriented x3 and no apparent distress General Appearance: cooperative HEENT normocephalic and moist oral mucous membranes Eyes PERRL, EOMs intact bilaterally and conjunctivae normal Neck supple and no JVD Resp normal respiratory effort, no retractions, no use of accessory muscles and clear to auscultation bilaterally Auscultation: diminished lung sounds bilateral lower; Negative for crackles, rales, rhonchi or wheezes Cardio regular rate, regular rhythm, S1 normal heart sound, S2 normal heart sound and no murmurs GI soft to palpation, non-tender and non-distended; Negative for hepatosplenomegaly Extremity General Extremity: edema bilateral lower extremity Details: trace; Negative for clubbing or cyanosis Skin no rashes or lesions noted Neuro no focal motor deficits and no sensory deficits noted Psych affect normal Appearance: appropriate Assessment & Plan Assessment/Plan (1) Hypoxia: (2) Acute on chronic diastolic CHF (congestive heart failure): (3) History of coronary artery stent placement: (4) Longstanding persistent atrial fibrillation: (5) Sick sinus syndrome: (6) Chest pain: QUALIFIERS: Ischemic chest pain type: unstable angina pectoris PLAN: 1. Acute hypoxia with chest pain/acute on chronic diastolic CHF/HTN/HLD/CAD status post stent/history of CVA -Chest pain occurred with ambulation on admission, initial 2 troponins were negative -EKG is nonischemic, last stress test was in 2018, repeat stress test in a.m. -Chest x-ray with mild pleural effusion and central congestion -Echo was done a few months ago, will not repeat -BNP is minimally elevated to 229, she was given a dose of IV Lasix in the ER -Daily weights, I's and O's, fluid restriction of 1500 cc -Continue with her Norvasc, Imdur, metoprolol -Continue with prasugrel, will restart her Xarelto that she had been on previously. I discussed with her daughter if she understood the reason why she was removed from the Xarelto and she did not know. The daughter denies any history with GI bleed. -Pacemaker is in place -Stress test was abnormal, cardiology proceed with heart cath 04/01/2021, which was unremarkable. -Creatinine bumped to 1.46 today therefore hold her Lasix, and monitor her creatinine in the morning. -UA was unremarkable, will recheck white blood cell count in the morning and if still elevated can repeat chest x-ray. 2. IDDM 2 -Continue with her home insulin -Calorie controlled diet -Accu-Cheks AC at bedtime 3. Hypothyroidism -Stable -Continue Synthroid 4. Anxiety/depression/dementia -Stable -Continue with Cymbalta, memantine, donepezil Disposition: Will need to go to a f[facility] for rehab, will start pre-CERT today DVT: Jesusitanox
[2021-04-05] MEDS: Rivaroxaban 15 MG Tablet PO (16:02)
[2021-04-05 16:11] LABS: Bedside Glucose 189 mg/dL (70-110)
--- NOTE | 2021-04-05 17:24 | NURSING ---
This RN taking over care at this time
[2021-04-05] MEDS: Donepezil HCl 10 MG Tablet PO (21:49)
[2021-04-05] MEDS: Atorvastatin Calcium 20 MG Tablet PO (21:49)
[2021-04-05] MEDS: Latanoprost 0.005% 1 Bottle 1 DRP OPHTHALMIC (21:49)
[2021-04-05 22:15] LABS: Bedside Glucose 224 mg/dL (70-110)
[2021-04-06] VITALS (10 sets, daily range): BP systolic 122–149; BP diastolic 60–86; PULSE 68–84; RESP 16–18; TEMP 35.7–36.5; O2SAT 93–98
[2021-04-06] MEDS: Levothyroxine 50 MCG Tablet PO (05:17)
[2021-04-06 06:29] LABS: Absolute Lymphocyte Count 1.84 X10^3/uL (0.83-4.51); Absolute Neutrophil Count 10.7 X10^3/uL (2.0-7.7); Basophil% 0.7 % (0-1); Eosinophil# 0.16 X10^3/uL; Eosinophils% 1.2 % (0-5); Hematocrit 38.7 % (37-47); Hemoglobin 11.6 g/dL (12.0-15.0); Lymphocyte # 1.84 X10^3/ul (0.83-4.51); Lymphocyte % 13.4 % (19-41); Mean Corpuscular Hgb 25.1 pg (27.0-32.0); Mean Corpuscular Volume 83.8 fL (81-99); Mean Platelet Vol. 11.9 fl (6.2-12.0); Monocyte# 0.91 X10^3/uL; Monocyte% 6.6 % (0-10); NRBC Flagged by Analyzer 0 % (0-5); Neutrophil # 10.66 X10^3/uL (2.7-7.7); Neutrophil % 77.5 % (47-70); Platelet Count 268 K/mm3 (150-450); RBC Distribution Width CV 14.8 % (11.6-14.6); RBC Distribution Width SD 44.8 fl (35.1-43.9); Red Blood Count 4.62 M/mm3 (4.2-5.4); White Blood Count 13.8 K/mm3 (4.4-11.0)
[2021-04-06 06:55] LABS: Anion Gap 6 (5-15); BUN 39 mg/dL (7-18); BUN/Creat Ratio 30.2 RATIO (10-20); Chloride 105 mmol/L (98-107); Creatinine, Serum 1.29 mg/dL (0.55-1.02); EST Glomerular Filtration Rate 43 mL/min (>60); Est Glom Filt Rate - Afr Amer 51 mL/min (>60); Estimated Creatinine Clearance 31.54 ml/min; Glucose 132 mg/dL (74-106); Potassium 4.1 mmol/L (3.5-5.1); Sodium Level 141 mmol/L (136-145)
[2021-04-06] MEDS: Insulin Lispro 100 UNIT/ML INSULN.PEN SC ×4 (08:18→21:51)
[2021-04-06] MEDS: Fluticasone 0.05% 1 SPRAY NASAL.SRY 2 SPRAY NASAL ×2 (09:08→21:51)
[2021-04-06] MEDS: Metoprolol(XL)Succ 50 MG Tablet PO (09:09)
[2021-04-06] MEDS: DULoxetine Hcl 30 MG Capsule PO (09:10)
[2021-04-06] MEDS: amLODIPine 5 MG Tablet PO (09:10)
[2021-04-06] MEDS: Memantine Hydrochloride 10 MG Tablet PO ×2 (09:10→21:52)
[2021-04-06] MEDS: Isosorbide Mononitrate 30 MG Tablet 90 MG PO (09:10)
[2021-04-06] MEDS: Pantoprazole Sodium 20 MG Tablet PO (09:10)
[2021-04-06] MEDS: levETIRAcetam 500 MG Tablet PO ×2 (09:10→21:52)
[2021-04-06] MEDS: Furosemide 20 MG Tablet PO ×2 (09:11→16:45)
--- NOTE | 2021-04-06 09:23 | PN.HOSP_ITS ---
Subjective Subjective A little tired today, denies any cough or shortness of breath. Denies any abdominal pain or fevers. No new issues overnight Objective Data Objective Data Vital Signs: Vital Signs Temp Pulse Resp BP Pulse Ox 97.7 F L 80 16 122/71 H 95 04/06/21 08:15 04/06/21 09:09 04/06/21 08:15 04/06/21 08:15 04/06/21 08:15 Oxygen Flow Rate (L/min) 2 Oxygen Delivery Method Room Air Weight: 231 lb 0.711 oz Body Mass Index (BMI) 41.8 Intake & Output: Intake and Output for Last 24 Hours 04/05/21 04/06/21 04/07/21 03:59 03:59 03:59 Intake Total 1646.25 / 1646.25 1080 / 1080 60 / 60 Output Total 1400 / 1400 1050 / 1050 350 / 350 Balance 246.25 / 246.25 30 / 30 -290 / -290 Lab / Micro Data Result Diagrams: 04/06/21 06:10 04/06/21 06:10 Labs: Laboratory Results - last 24 hr 04/05/21 04/05/21 04/05/21 09:25 11:53 16:01 WBC RBC Hgb Hct MCV MCH MCHC RDW Std Deviation RDW Coeff of Candace Plt Count MPV Immature Gran % (Auto) Neut % (Auto) Lymph % (Auto) [place] % (Auto) Eos % (Auto) Baso % (Auto) Absolute Neuts (auto) Absolute Lymphs (auto) Nucleated RBC % Sodium Potassium Chloride Carbon Dioxide Anion Gap BUN Creatinine Estim Creat Clear Calc Est GFR (MDRD) Af Amer Est GFR (MDRD) Non-Af BUN/Creatinine Ratio Glucose Calcium Urine Color Yellow Urine Clarity Clear Urine pH 5.0 Ur Specific Grandin 1.020 Urine Protein 30 H Urine Glucose (UA) 100 H Urine Ketones Negative Urine Occult Blood 10 H Urine Nitrite Negative Urine Bilirubin Negative Urine Urobilinogen Normal Ur Leukocyte Esterase 25 H Urine RBC 0 SEEN Urine WBC 0-5 SEEN Ur Squamous Epith Cells 0-5 SEEN Urine Bacteria 0 SEEN Urine Mucus 0 SEEN POC Glucose 285 H 189 H 04/05/21 04/06/21 04/06/21 21:47 06:10 06:10 WBC 13.8 H RBC 4.62 Hgb 11.6 L Hct 38.7 MCV 83.8 MCH 25.1 L MCHC 30.0 L RDW Std Deviation 44.8 H RDW Coeff of Candace 14.8 H Plt Count 268 MPV 11.9 Immature Gran % (Auto) 0.600 Neut % (Auto) 77.5 H Lymph % (Auto) 13.4 L [place] % (Auto) 6.6 Eos % (Auto) 1.2 Baso % (Auto) 0.7 Absolute Neuts (auto) 10.7 H Absolute Lymphs (auto) 1.84 Nucleated RBC % 0 Sodium 141 Potassium 4.1 Chloride 105 Carbon Dioxide 30.0 Anion Gap 6 BUN 39 H Creatinine 1.29 H Estim Creat Clear Calc 31.54 Est GFR (MDRD) Af Amer 51 L Est GFR (MDRD) Non-Af 43 L BUN/Creatinine Ratio 30.2 H Glucose 132 H Calcium 9.0 Urine Color Urine Clarity Urine pH Ur Specific Grandin Urine Protein Urine Glucose (UA) Urine Ketones Urine Occult Blood Urine Nitrite Urine Bilirubin Urine Urobilinogen Ur Leukocyte Esterase Urine RBC Urine WBC Ur Squamous Epith Cells Urine Bacteria Urine Mucus POC Glucose 224 H Physical Exam Const alert, oriented x3 and no apparent distress General Appearance: cooperative HEENT normocephalic and moist oral mucous membranes Eyes PERRL, EOMs intact bilaterally and conjunctivae normal Neck supple and no JVD Resp normal respiratory effort, no retractions and no use of accessory muscles Auscultation: crackles right base; Negative for rales, rhonchi or wheezes Cardio regular rate, regular rhythm, S1 normal heart sound, S2 normal heart sound and no murmurs GI soft to palpation, non-tender and non-distended; Negative for hepatosplenomegaly Extremity General Extremity: edema bilateral lower extremity Details: trace; Negative for clubbing or cyanosis Skin no rashes or lesions noted Neuro no focal motor deficits and no sensory deficits noted Psych affect normal Appearance: appropriate Assessment & Plan Assessment/Plan (1) Hypoxia: (2) Acute on chronic diastolic CHF (congestive heart failure): (3) History of coronary artery stent placement: (4) Longstanding persistent atrial fibrillation: (5) Sick sinus syndrome: (6) Chest pain: QUALIFIERS: Ischemic chest pain type: unstable angina pectoris PLAN: 1. Acute hypoxia with chest pain/acute on chronic diastolic CHF/HTN/HLD/CAD status post stent/history of CVA -Chest pain occurred with ambulation on admission, initial 2 troponins were negative -EKG is nonischemic, last stress test was in 2018, repeat stress test in a.m. -Chest x-ray with mild pleural effusion and central congestion -Echo was done a few months ago, will not repeat -BNP is minimally elevated to 229, she was given a dose of IV Lasix in the ER -Daily weights, I's and O's, fluid restriction of 1500 cc -Continue with her Norvasc, Imdur, metoprolol -Continue with prasugrel, will restart her Xarelto that she had been on previously. I discussed with her daughter if she understood the reason why she was removed from the Xarelto and she did not know. The daughter denies any history with GI bleed. -Pacemaker is in place -Stress test was abnormal, cardiology proceed with heart cath 04/01/2021, which was unremarkable. -Creatinine is improved to 1.29, can restart her home oral Lasix -UA was unremarkable, leukocytosis is improving and is not on antibiotics, remains afebrile and denies any other signs/symptoms of infection 2. IDDM 2 -Continue with her home insulin -Calorie controlled diet -Accu-Cheks AC at bedtime 3. Hypothyroidism -Stable -Continue Synthroid 4. Anxiety/depression/dementia -Stable -Continue with Cymbalta, memantine, donepezil Disposition: Will need to go to a care home for rehab, awaiting pre-CERT DVT: Veronica Charges/Coding Visit Charges Inpatient E&M: 92808 Subs Hosp L2
[2021-04-06] MEDS: Insulin Lispro 100 UNIT/ML INSULN.PEN 15 UNIT SC ×2 (11:06→16:45)
[2021-04-06 11:11] LABS: Bedside Glucose 202 mg/dL (70-110)
[2021-04-06 11:21] LABS: Bedside Glucose 154 mg/dL (70-110)
--- NOTE | 2021-04-06 15:29 | CASEMGMT ---
Palliative screening tool completed for [facility]. Patient meets criteria for palliative consult, hospitalist notified, no referral at this time.
--- NOTE | 2021-04-06 16:38 | CASEMGMT ---
MINAL Note MINAL called Rhea at [facility]. They continue to wait on patient's insurance precert. MINAL was advised that patient's family wants to talk to this policy writer. Patient and daughter inquired about status of her returning to [facility] at discharge. MINAL updated that we are waiting on insurance. Provided emotional support to patient and family. Plan: Discharge home with [facility]. Dedra STAPLETON
[2021-04-06] MEDS: Rivaroxaban 15 MG Tablet PO (16:45)
[2021-04-06 16:55] LABS: Bedside Glucose 230 mg/dL (70-110)
[2021-04-06] MEDS: Donepezil HCl 10 MG Tablet PO (21:51)
[2021-04-06] MEDS: Atorvastatin Calcium 20 MG Tablet PO (21:52)
[2021-04-06] MEDS: Latanoprost 0.005% 1 Bottle 1 DRP OPHTHALMIC (21:53)
[2021-04-06 22:06] LABS: Bedside Glucose 246 mg/dL (70-110)
[2021-04-06] MEDS: Acetaminophen 325 MG Tablet 650 MG PO (22:45)
--- NOTE | 2021-04-06 22:50 | EKG12_ITS ---
Test Reason : JAW PAIN Blood Pressure : / mmHG Vent. Rate : 071 BPM Atrial Rate : 090 BPM P-R Int : 000 ms QRS Dur : 136 ms QT Int : 442 ms P-R-T Axes : 000 -44 006 degrees QTc Int : 480 ms Atrial fibrillation with occasional ventricular-paced complexes Left axis deviation Right bundle branch block Abnormal ECG When compared with ECG of 04-APR-2021 05:45, Electronic ventricular pacemaker has replaced Atrial fibrillation Confirmed by TAM GALINDO, LORRAINE ([id number]), publication editor WILLIS HAWKINS ([id number]) on 04/10/2021 9:18:39 AM Referred By: LORRAINE Confirmed By:LORRAINE TURCIOS MD
[2021-04-07] VITALS (11 sets, daily range): BP systolic 115–146; BP diastolic 67–95; PULSE 70–82; RESP 18–20; TEMP 35.8–37.2; O2SAT 90–98
[2021-04-07] MEDS: Levothyroxine 50 MCG Tablet PO (06:05)
[2021-04-07 07:24] LABS: Absolute Neutrophil Count 8.2 X10^3/uL (2.0-7.7); Basophil# 0.08 X10^3/uL; Basophil% 0.7 % (0-1); Eosinophil# 0.23 X10^3/uL; Hematocrit 37.5 % (37-47); Hemoglobin 11.3 g/dL (12.0-15.0); Lymphocyte % 16.7 % (19-41); Mean Corp Hgb Conc 30.1 g/dL (32-36); Mean Platelet Vol. 12.1 fl (6.2-12.0); Monocyte# 0.97 X10^3/uL; Monocyte% 8.5 % (0-10); NRBC Flagged by Analyzer 0 % (0-5); Neutrophil # 8.15 X10^3/uL (2.7-7.7); Neutrophil % 71.7 % (47-70); Platelet Count 252 K/mm3 (150-450); RBC Distribution Width CV 14.8 % (11.6-14.6); RBC Distribution Width SD 44.6 fl (35.1-43.9); Red Blood Count 4.52 M/mm3 (4.2-5.4); White Blood Count 11.4 K/mm3 (4.4-11.0)
[2021-04-07 07:49] LABS: Anion Gap 6 (5-15); BUN 33 mg/dL (7-18); BUN/Creat Ratio 31.4 RATIO (10-20); Calcium,Total 9.1 mg/dL (8.5-10.1); Chloride 106 mmol/L (98-107); Creatinine, Serum 1.05 mg/dL (0.55-1.02); EST Glomerular Filtration Rate 54 mL/min (>60); Est Glom Filt Rate - Afr Amer 65 mL/min (>60); Estimated Creatinine Clearance 38.75 ml/min; Glucose 146 mg/dL (74-106); Potassium 3.7 mmol/L (3.5-5.1); Sodium Level 141 mmol/L (136-145)
[2021-04-07 07:51] LABS: Bedside Glucose 140 mg/dL (70-110)
[2021-04-07] MEDS: Insulin Lispro 100 UNIT/ML INSULN.PEN 15 UNIT SC ×2 (10:08→17:04)
[2021-04-07] MEDS: Memantine Hydrochloride 10 MG Tablet PO ×2 (10:09→21:34)
[2021-04-07] MEDS: levETIRAcetam 500 MG Tablet PO ×2 (10:09→21:34)
[2021-04-07] MEDS: amLODIPine 5 MG Tablet PO (10:10)
[2021-04-07] MEDS: Furosemide 20 MG Tablet PO ×2 (10:10→17:05)
[2021-04-07] MEDS: Fluticasone 0.05% 1 SPRAY NASAL.SRY 2 SPRAY NASAL ×2 (10:11→21:34)
[2021-04-07] MEDS: DULoxetine Hcl 30 MG Capsule PO (10:11)
[2021-04-07] MEDS: Isosorbide Mononitrate 30 MG Tablet 90 MG PO (10:11)
[2021-04-07] MEDS: Metoprolol(XL)Succ 50 MG Tablet PO (10:12)
[2021-04-07] MEDS: Pantoprazole Sodium 20 MG Tablet PO (10:12)
[2021-04-07 12:05] LABS: Bedside Glucose 199 mg/dL (70-110)
[2021-04-07] MEDS: Insulin Lispro 100 UNIT/ML INSULN.PEN SC ×2 (12:21→17:08)
--- NOTE | 2021-04-07 14:09 | PN.HOSP_ITS ---
Subjective Subjective Feels better today, was able to get some sleep states that swelling does not appear to have come back and denies any chest pain. Objective Data Objective Data Vital Signs: Vital Signs Temp Pulse Resp BP Pulse Ox 97.9 F 78 18 146/79 H 95 04/07/21 09:20 04/07/21 10:12 04/07/21 09:20 04/07/21 09:20 04/07/21 09:20 Oxygen Flow Rate (L/min) 2 Oxygen Delivery Method Room Air Weight: 230 lb 2.601 oz Body Mass Index (BMI) 41.8 Intake & Output: Intake and Output for Last 24 Hours 04/06/21 04/07/21 04/08/21 03:59 03:59 03:59 Intake Total 1080 / 1080 1020 / 1020 350 / 350 Output Total 1050 / 1050 1000 / 1000 1200 / 1200 Balance -850 / -850 Lab / Micro Data Result Diagrams: 04/07/21 07:04 04/07/21 07:04 Labs: Laboratory Results - last 24 hr 04/06/21 04/06/21 04/07/21 16:43 21:50 07:04 WBC 11.4 H RBC 4.52 Hgb 11.3 L Hct 37.5 MCV 83.0 MCH 25.0 L MCHC 30.1 L RDW Std Deviation 44.6 H RDW Coeff of Candace 14.8 H Plt Count 252 MPV 12.1 H Immature Gran % (Auto) 0.400 Neut % (Auto) 71.7 H Lymph % (Auto) 16.7 L [place] % (Auto) 8.5 Eos % (Auto) 2.0 Baso % (Auto) 0.7 Absolute Neuts (auto) 8.2 H Absolute Lymphs (auto) 1.90 Nucleated RBC % 0 Sodium Potassium Chloride Carbon Dioxide Anion Gap BUN Creatinine Estim Creat Clear Calc Est GFR (MDRD) Af Amer Est GFR (MDRD) Non-Af BUN/Creatinine Ratio Glucose Calcium POC Glucose 230 H 246 H 04/07/21 04/07/21 04/07/21 07:04 07:48 12:03 WBC RBC Hgb Hct MCV MCH MCHC RDW Std Deviation RDW Coeff of Candace Plt Count MPV Immature Gran % (Auto) Neut % (Auto) Lymph % (Auto) [place] % (Auto) Eos % (Auto) Baso % (Auto) Absolute Neuts (auto) Absolute Lymphs (auto) Nucleated RBC % Sodium 141 Potassium 3.7 Chloride 106 Carbon Dioxide 29.0 Anion Gap 6 BUN 33 H Creatinine 1.05 H Estim Creat Clear Calc 38.75 Est GFR (MDRD) Af Amer 65 Est GFR (MDRD) Non-Af 54 L BUN/Creatinine Ratio 31.4 H Glucose 146 H Calcium 9.1 POC Glucose 140 H 199 H Physical Exam Const alert, oriented x3 and no apparent distress General Appearance: cooperative HEENT normocephalic and moist oral mucous membranes Eyes PERRL, EOMs intact bilaterally and conjunctivae normal Neck supple and no JVD Resp normal respiratory effort, no retractions and no use of accessory muscles Auscultation: crackles right base; Negative for rales, rhonchi or wheezes Cardio regular rate, regular rhythm, S1 normal heart sound, S2 normal heart sound and no murmurs GI soft to palpation, non-tender and non-distended; Negative for hepatosplenomegaly Extremity no clubbing, cyanosis or edema General Extremity: edema bilateral lower extremity Details: trace; Negative for clubbing or cyanosis Skin no rashes or lesions noted Neuro no focal motor deficits and no sensory deficits noted Psych affect normal Appearance: appropriate Assessment & Plan Assessment/Plan (1) Hypoxia: (2) Acute on chronic diastolic CHF (congestive heart failure): (3) History of coronary artery stent placement: (4) Longstanding persistent atrial fibrillation: (5) Sick sinus syndrome: (6) Chest pain: QUALIFIERS: Ischemic chest pain type: unstable angina pectoris PLAN: 1. Acute hypoxia with chest pain/acute on chronic diastolic CHF/HTN/HLD/CAD status post stent/history of CVA -Chest pain occurred with ambulation on admission, initial 2 troponins were negative -EKG is nonischemic, last stress test was in 2018, repeat stress test in a.m. -Chest x-ray with mild pleural effusion and central congestion -Echo was done a few months ago, will not repeat -BNP is minimally elevated to 229, she was given a dose of IV Lasix in the ER -Daily weights, I's and O's, fluid restriction of 1500 cc -Continue with her Norvasc, Imdur, metoprolol -Continue with prasugrel, will restart her Xarelto that she had been on previo usly. I discussed with her daughter if she understood the reason why she was removed from the Xarelto and she did not know. The daughter denies any history with GI bleed. -Pacemaker is in place -Stress test was abnormal, cardiology proceed with heart cath 04/01/2021, which was unremarkable. -Creatinine is improved, will continue to monitor and continue with her home oral Lasix -UA was unremarkable, leukocytosis is improving and is not on antibiotics, remains afebrile and denies any other signs/symptoms of infection 2. IDDM 2 -Continue with her home insulin -Calorie controlled diet -Accu-Cheks AC at bedtime 3. Hypothyroidism -Stable -Continue Synthroid 4. Anxiety/depression/dementia -Stable -Continue with Cymbalta, memantine, donepezil Disposition: [facility] a [facility], awaiting pre-CERT DVT: Xarelto Charges/Coding Visit Charges Inpatient E&M: 00803 Subs Hosp L2
[2021-04-07] MEDS: HYDROcodone Bitartrate/Apap 5/325 Tablet PO (16:02)
[2021-04-07 16:15] LABS: Bedside Glucose 174 mg/dL (70-110)
[2021-04-07] MEDS: Rivaroxaban 15 MG Tablet PO (17:06)
[2021-04-07] MEDS: Latanoprost 0.005% 1 Bottle 1 DRP OPHTHALMIC (21:32)
[2021-04-07] MEDS: Donepezil HCl 10 MG Tablet PO (21:34)
[2021-04-07] MEDS: Atorvastatin Calcium 20 MG Tablet PO (21:34)
[2021-04-08] VITALS (10 sets, daily range): BP systolic 115–137; BP diastolic 62–69; PULSE 59–82; RESP 16–18; TEMP 36–37; O2SAT 93–95
[2021-04-08 03:35] LABS: Bedside Glucose 99 mg/dL (70-110)
[2021-04-08] MEDS: Levothyroxine 50 MCG Tablet PO (05:25)
[2021-04-08 06:19] LABS: BUN 33 mg/dL (7-18); BUN/Creat Ratio 27.5 RATIO (10-20); Chloride 104 mmol/L (98-107); EST Glomerular Filtration Rate 46 mL/min (>60); Est Glom Filt Rate - Afr Amer 56 mL/min (>60); Glucose 174 mg/dL (74-106); Potassium 4.3 mmol/L (3.5-5.1); Sodium Level 140 mmol/L (136-145)
[2021-04-08 06:20] LABS: Anion Gap 6 (5-15)
[2021-04-08] MEDS: Isosorbide Mononitrate 30 MG Tablet 90 MG PO (08:45)
[2021-04-08] MEDS: Memantine Hydrochloride 10 MG Tablet PO ×2 (08:45→20:14)
[2021-04-08] MEDS: Pantoprazole Sodium 20 MG Tablet PO (08:46)
[2021-04-08] MEDS: DULoxetine Hcl 30 MG Capsule PO ×2 (08:46→20:14)
[2021-04-08] MEDS: Furosemide 20 MG Tablet PO ×2 (08:47→17:04)
[2021-04-08] MEDS: levETIRAcetam 500 MG Tablet PO ×2 (08:47→20:14)
[2021-04-08] MEDS: Fluticasone 0.05% 1 SPRAY NASAL.SRY 2 SPRAY NASAL ×2 (08:47→20:14)
[2021-04-08] MEDS: amLODIPine 5 MG Tablet PO (08:48)
[2021-04-08] MEDS: Metoprolol(XL)Succ 50 MG Tablet PO (08:48)
[2021-04-08] MEDS: Insulin Lispro 100 UNIT/ML INSULN.PEN 15 UNIT SC ×3 (09:15→17:04)
[2021-04-08] MEDS: Acetaminophen 325 MG Tablet 650 MG PO (09:18)
[2021-04-08 09:36] LABS: Bedside Glucose 157 mg/dL (70-110)
--- NOTE | 2021-04-08 11:44 | PCM.PN.HOSP ---
Subjective Subjective Doing well, no issues overnight. Slept well, denies any shortness of breath or chest pain. Objective Data Objective Data Vital Signs: Vital Signs Temp Pulse Resp BP Pulse Ox 96.8 F L 81 16 119/69 93 04/08/21 09:15 04/08/21 09:15 04/08/21 09:15 04/08/21 09:15 04/08/21 09:15 Oxygen Flow Rate (L/min) 2 Oxygen Delivery Method Room Air Weight: 228 lb 9.91 oz Body Mass Index (BMI) 41.8 Intake & Output: Intake and Output for Last 24 Hours 04/07/21 04/08/21 04/09/21 03:59 03:59 03:59 Intake Total 1020 / 1020 750 / 750 100 / 100 Output Total 1000 / 1000 1700 / 1700 700 / 700 Balance -950 / -950 -600 / -600 Lab / Micro Data Result Diagrams: 04/07/21 07:04 04/08/21 05:39 Labs: Laboratory Results - last 24 hr 04/07/21 04/07/21 04/07/21 12:03 16:01 21:31 Sodium Potassium Chloride Carbon Dioxide Anion Gap BUN Creatinine Estim Creat Clear Calc Est GFR (MDRD) Af Amer Est GFR (MDRD) Non-Af BUN/Creatinine Ratio Glucose Calcium POC Glucose 199 H 174 H 99 04/08/21 04/08/21 05:39 08:42 Sodium 140 Potassium 4.3 Chloride 104 Carbon Dioxide 30.0 Anion Gap 6 BUN 33 H Creatinine 1.20 H Estim Creat Clear Calc 33.90 Est GFR (MDRD) Af Amer 56 L Est GFR (MDRD) Non-Af 46 L BUN/Creatinine Ratio 27.5 H Glucose 174 H Calcium 9.0 POC Glucose 157 H Physical Exam Const alert, oriented x3 and no apparent distress General Appearance: cooperative HEENT normocephalic and moist oral mucous membranes Eyes PERRL, EOMs intact bilaterally and conjunctivae normal Neck supple and no JVD Resp normal respiratory effort, no retractions and no use of accessory muscles Auscultation: crackles right base; Negative for rales, rhonchi or wheezes Cardio regular rate, regular rhythm, S1 normal heart sound, S2 normal heart sound and no murmurs GI soft to palpation, non-tender and non-distended; Negative for hepatosplenomegaly Extremity General Extremity: edema bilateral lower extremity Details: trace; Negative for clubbing or cyanosis Skin no rashes or lesions noted Neuro no focal motor deficits and no sensory deficits noted Psych affect normal Appearance: appropriate Assessment & Plan Assessment/Plan (1) Hypoxia: (2) Acute on chronic diastolic CHF (congestive heart failure): (3) History of coronary artery stent placement: (4) Longstanding persistent atrial fibrillation: (5) Sick sinus syndrome: (6) Chest pain: QUALIFIERS: Ischemic chest pain type: unstable angina pectoris PLAN: 1. Acute hypoxia with chest pain/acute on chronic diastolic CHF/HTN/HLD/CAD status post stent/history of CVA -Chest pain occurred with ambulation on admission, initial 2 troponins were negative -EKG is nonischemic, last stress test was in 2018, repeat stress test in a.m. -Chest x-ray with mild pleural effusion and central congestion -Echo was done a few months ago, will not repeat -BNP is minimally elevated to 229, she was given a dose of IV Lasix in the ER -Daily weights, I's and O's, fluid restriction of 1500 cc -Continue with her Norvasc, Imdur, metoprolol -Continue with prasugrel, will restart her Xarelto that she had been on previously. I discussed with her daughter if she understood the reason why she was removed from the Xarelto and she did not know. The daughter denies any history with GI bleed. -Pacemaker is in place -Stress test was abnormal, cardiology proceed with heart cath 04/01/2021, which was unremarkable. -Creatinine is improved, will continue to monitor and continue with her home oral Lasix -UA was unremarkable, leukocytosis is improving and is not on antibiotics, remains afebrile and denies any other signs/symptoms of infection 2. IDDM 2 -Continue with her home insulin -Calorie controlled diet -Accu-Cheks AC at bedtime 3. Hypothyroidism -Stable -Continue Synthroid 4. Anxiety/depression/dementia -Stable -Continue with Cymbalta, memantine, donepezil Disposition: Will need to go to a retirement for rehab, awaiting pre-CERT DVT: Xarelto Charges/Coding Visit Charges Inpatient E&M: 20023 Subs Hosp L2
[2021-04-08 11:51] LABS: Bedside Glucose 177 mg/dL (70-110)
[2021-04-08] MEDS: Insulin Lispro 100 UNIT/ML INSULN.PEN SC (12:29)
--- NOTE | 2021-04-08 13:50 | NURSING ---
Addendum entered by Fernanda Roberts 04/08/21 14:11: time of note 1350 Original Note: 1450 Rt lower leg with small bloody area, gauze applied and taped. RN Vahid. Tray Smith RN
[2021-04-08] MEDS: Rivaroxaban 15 MG Tablet PO (17:04)
[2021-04-08 17:15] LABS: Bedside Glucose 103 mg/dL (70-110)
[2021-04-08] MEDS: Atorvastatin Calcium 20 MG Tablet PO (20:14)
[2021-04-08] MEDS: Latanoprost 0.005% 1 Bottle 1 DRP OPHTHALMIC (20:14)
[2021-04-08] MEDS: Donepezil HCl 10 MG Tablet PO (20:15)
[2021-04-08 21:10] LABS: Bedside Glucose 126 mg/dL (70-110)
[2021-04-09] VITALS (7 sets, daily range): BP systolic 124–134; BP diastolic 71–80; PULSE 74–83; RESP 16–18; TEMP 36.4–36.6; O2SAT 95–97
[2021-04-09] MEDS: HYDROcodone Bitartrate/Apap 5/325 Tablet PO (02:29)
[2021-04-09] MEDS: Levothyroxine 50 MCG Tablet PO (05:17)
[2021-04-09 06:51] LABS: Absolute Lymphocyte Count 2.22 X10^3/uL (0.83-4.51); Absolute Neutrophil Count 9.7 X10^3/uL (2.0-7.7); Basophil# 0.08 X10^3/uL; Basophil% 0.6 % (0-1); Eosinophil# 0.34 X10^3/uL; Eosinophils% 2.5 % (0-5); Hematocrit 38.8 % (37-47); Lymphocyte # 2.22 X10^3/ul (0.83-4.51); Lymphocyte % 16.6 % (19-41); Mean Corp Hgb Conc 30.9 g/dL (32-36); Mean Corpuscular Hgb 25.2 pg (27.0-32.0); Mean Corpuscular Volume 81.5 fL (81-99); Mean Platelet Vol. 12.2 fl (6.2-12.0); Monocyte# 0.95 X10^3/uL; Monocyte% 7.1 % (0-10); NRBC Flagged by Analyzer 0 % (0-5); Neutrophil # 9.73 X10^3/uL (2.7-7.7); Neutrophil % 72.8 % (47-70); Platelet Count 254 K/mm3 (150-450); RBC Distribution Width CV 14.5 % (11.6-14.6); RBC Distribution Width SD 42.8 fl (35.1-43.9); Red Blood Count 4.76 M/mm3 (4.2-5.4); White Blood Count 13.4 K/mm3 (4.4-11.0)
[2021-04-09 07:09] LABS: Anion Gap 7 (5-15); BUN 30 mg/dL (7-18); BUN/Creat Ratio 27.5 RATIO (10-20); Chloride 103 mmol/L (98-107); Creatinine, Serum 1.09 mg/dL (0.55-1.02); EST Glomerular Filtration Rate 52 mL/min (>60); Est Glom Filt Rate - Afr Amer 63 mL/min (>60); Estimated Creatinine Clearance 37.32 ml/min; Glucose 213 mg/dL (74-106); Sodium Level 137 mmol/L (136-145)
[2021-04-09 08:05] LABS: Bedside Glucose 197 mg/dL (70-110)
[2021-04-09] MEDS: Insulin Lispro 100 UNIT/ML INSULN.PEN 15 UNIT SC ×2 (08:45→11:53)
[2021-04-09] MEDS: Insulin Lispro 100 UNIT/ML INSULN.PEN SC ×2 (08:46→11:54)
[2021-04-09] MEDS: levETIRAcetam 500 MG Tablet PO (08:47)
[2021-04-09] MEDS: Isosorbide Mononitrate 30 MG Tablet 90 MG PO (08:47)
[2021-04-09] MEDS: Metoprolol(XL)Succ 50 MG Tablet PO (08:47)
[2021-04-09] MEDS: Furosemide 20 MG Tablet PO (08:47)
[2021-04-09] MEDS: Fluticasone 0.05% 1 SPRAY NASAL.SRY 2 SPRAY NASAL (08:48)
[2021-04-09] MEDS: amLODIPine 5 MG Tablet PO (08:48)
[2021-04-09] MEDS: Pantoprazole Sodium 20 MG Tablet PO (08:48)
[2021-04-09] MEDS: Memantine Hydrochloride 10 MG Tablet PO (08:48)
[2021-04-09 12:00] LABS: Bedside Glucose 152 mg/dL (70-110)
--- NOTE | 2021-04-09 12:09 | PCM.TXEXTCAR ---
Diet 04/06/21 16:20 Diet: Cardiac - Heart Healthy, 1800 jony ADA Food consistency:: Regular Liquid Consistency:: Regular/Thin Dietary Modifications:: Consistent Carbohydrate Is pt able to select menu?: Yes Fluid restriction:: 1500 mL Routine Orders/Code Status Code Status: DNRCC-A (no intubation) Wound(s) RIGHT WRIST: Wound Type: Puncture Left Wrist: Wound Type: Skin Tear Therapies Weight Bearing: Weight bearing as tolerated Physical Therapy: Eval and Treat Occupational Therapy: Eval and Treat Problem/Diagnosis (1) Hypoxia: Status: Acute (2) Acute on chronic diastolic CHF (congestive heart failure): Status: Chronic (3) History of coronary artery stent placement: Status: Chronic Comment: [id number] LAD w/ 3.5 x 12 mm [employer] 10/23/2004; [id number] Inferolateral [place] w/ 3.0 x [address] [place] Stent 01/25/2011 @ [facility] (4) Longstanding persistent atrial fibrillation: Status: Chronic (5) Sick sinus syndrome: Status: Chronic (6) Chest pain: Status: Acute (7) CAD (coronary artery disease): Status: Chronic Comment: mild Allergies/Procedures Done in Hospital Allergies atorvastatin calcium [From Lipitor] Allergy (Verified 04/02/21 09:11) dont remember codeine Allergy (Verified 04/02/21 09:11) Rash iodine Allergy (Verified 04/02/21 09:11) Rash Latex, Natural Rubber Allergy (Verified 04/02/21 09:11) Rash lovastatin Allergy (Verified 04/02/21 09:11) Rash rosuvastatin calcium [From Crestor] Allergy (Verified 04/02/21 09:11) rash\ tositumomab Allergy (Verified 04/02/21 09:11) PT UNSURE OF REACTION naproxen [From Naprosyn] Adverse Reaction (Verified 04/02/21 09:11) Upset Stomach pregabalin [From Lyrica] Adverse Reaction (Verified 04/02/21 09:11) Upset Stomach Sulfa (Sulfonamide Antibiotics) Adverse Reaction (Verified 04/02/21 09:11) Upset Stomach Procedures: 2-D Echocardiogram and Cardiac catheterization Type of Care/Length of Stay Estimated LOS: Convalescent Care Less Than 30 days Type of Care Needed: Skilled Rehab Potential: Good Prognosis: Good Additional Orders/Day of Discharge H&P will serve as current which was dated: 04/02/21 Day of Discharge: 04/09/21 Dietary and Speech Recommendations Dietitian Recommendations/Changes: Will change diet to Consistent Cho/Cardiac / low sodium w/ fluid restriction Discharge Plan Admission Admit Date/Time: 04/05/21 15:29 Attending Provider: Kuldeep Puri Primary Care Provider: Emerita Gottlieb Consulting Providers: Jose Antonio Dorado Discharge Orders/Prescriptions Prescriptions: No Action furosemide 20 mg tablet 20 mg PO BID RF: 0 levetiracetam 500 mg tablet 500 mg PO BID RF: 0 atorvastatin 20 mg tablet 20 mg PO QHS RF: 0 bisacodyl 10 mg suppository 10 mg RC Q8 PRN (Reason: Constipation) RF: 0 latanoprost 0.005 % drops 1 drp EACH EYE QHS RF: 0 senna 8.6 mg capsule 8.6 mg PO BID RF: 0 metoprolol succinate 50 MG tablet extended release 24 hr 50 mg PO DAILY RF: 0 prasugrel 10 MG tablet 10 mg PO DAILY RF: 0 duloxetine 30 MG capsule,delayed release(DR/EC) 30 mg PO DAILY RF: 0 levothyroxine 50 MCG tablet 50 mcg PO DAILY RF: 0 isosorbide mononitrate 30 MG tablet 90 mg PO DAILY RF: 0 omeprazole 20 MG capsule 20 mg PO DAILY RF: 0 acetaminophen 325 MG tablet 650 mg PO Q6H PRN PRN (Reason: Pain Score 1-10/Temp > 100.7 F) RF: 0 nitroglycerin 0.4 MG tablet, sublingual 0.4 mg SUBLINGUAL PRN PRN (Reason: chest pain) RF: 0 fluticasone propionate 1 SPRAY spray,suspension 2 spray NARES BID RF: 0 insulin glargine 100 unit/mL (3 mL) insulin pen 60 unit SC QPM RF: 0 insulin lispro 100 unit/mL insulin pen 15 unit SC TIDCM RF: 0 memantine 5 mg tablet 10 mg PO BID Qty: 1 RF: 0 cetirizine 10 MG tablet 10 mg PO DAILY RF: 0 donepezil 5 MG tablet 10 mg PO QHS RF: 0 acetaminophen 325 MG tablet 650 mg PO Q6H PRN PRN (Reason: Pain Score 1-10/Temp > 100.7 F) RF: 0 amlodipine 5 MG tablet 5 mg PO DAILY RF: 0 hydrocodone-acetaminophen 5-325 mg Tablet 0.5 tab PO BID PRN (Reason: Pain) RF: 0 polyethylene glycol 3350 [Miralax] 17 gram Powder In Packet 17 g PO DAILY PRN (Reason: Constipation) RF: 0 hydrocodone-acetaminophen [Cactus] 5-325 mg Tablet 1 tab PO BID PRN (Reason: Pain) RF: 0 magnesium hydroxide [Milk of Magnesia] 400 mg/5 mL Suspension 400 mg PO DAILY PRN (Reason: Constipation) RF: 0 bisacodyl [Dulcolax (bisacodyl)] 5 mg Tablet,Delayed Release (Dr/Ec) 5 mg PO BID PRN (Reason: Constipation) RF: 0 Referrals / Follow Up: Emerita Gottlieb MD [Primary Care Provider] -
--- NOTE | 2021-04-09 12:19 | CASEMGMT ---
SW received a message from Denisa at [facility] and patient was approved. Plan: d/c to [facility] under skilled level of care. Tonja Benavidez MSW JANETTE
--- NOTE | 2021-04-09 13:46 | CASEMGMT ---
Patient is ready for discharge. MINAL faxed orders and negative COVID test to [facility]. MINAL arranged for patient to get picked up at 4p via [facility]c van. SW notified RN, patient, accredited legal secretary, patient's daughter Cinthia, and Rhea at [facility]. Plan: d/c to [facility] under skilled level of care on convalescent stay. [facility] transported via [facility]c van. Tonja SAVAGE
--- NOTE | 2021-04-09 13:53 | CASEMGMT ---
MINAL called Margarita Cole at [facility] and let her know patient is being discharged to [facility] today under skilled level of care. MINAL also faxed her patient's discharge instructions. Plan: d/c back to [facility] under skilled level of care on a convalescent stay. [facility] transported via van. Tonja SAVAGE
--- NOTE | 2021-04-09 14:26 | PHA.DC.MR ---
Pharmacy Service has performed discharge medication reconciliation for this patient. The patient's discharge medication list was reviewed for discrepancies and discrepancies were resolved. Home Medications metoprolol succinate 50 mg PO DAILY 10/11/17 prasugrel 10 mg PO DAILY 06/04/18 duloxetine 30 mg PO DAILY 11/18/18 isosorbide mononitrate 90 mg PO DAILY 02/29/20 levothyroxine 50 mcg PO DAILY 02/29/20 furosemide 20 mg tablet 20 mg PO BID tab 04/19/20 levetiracetam 500 mg tablet 500 mg PO BID tab 04/19/20 omeprazole 20 mg PO DAILY 05/18/20 acetaminophen 650 mg PO Q6H PRN PRN tab 05/22/20 fluticasone propionate 2 spray NARES BID 12/13/20 nitroglycerin 0.4 mg SUBLINGUAL PRN PRN 12/13/20 atorvastatin 20 mg tablet 20 mg PO QHS 01/05/21 bisacodyl 10 mg rectal suppository 10 mg RC Q8 PRN 01/05/21 insulin lispro 100 unit/mL subcutaneous pen 15 unit SC TIDCM ml 01/05/21 latanoprost 0.005 % eye drops 1 drp EACH EYE QHS 01/05/21 sennosides 8.6 mg capsule 8.6 mg PO BID 01/05/21 cetirizine 10 mg PO DAILY 01/22/21 donepezil 10 mg PO QHS 01/22/21 acetaminophen 650 mg PO Q6H PRN PRN tablet 01/23/21 amlodipine 5 mg PO DAILY tablet 01/23/21 bisacodyl [Dulcolax (bisacodyl)] 5 mg PO BID PRN 04/02/21 magnesium hydroxide [Milk of Magnesia] 400 mg PO DAILY PRN 04/02/21 polyethylene glycol 3350 [Miralax] 17 g PO DAILY PRN 04/02/21 hydrocodone-acetaminophen 1 tab PO BID PRN 5 Days #10 tab 04/09/21 insulin glargine [Lantus Solostar U-100 Insulin] 35 units SUBCUT BID #1 ml 04/09/21 memantine 10 mg PO BID #1 tab 04/09/21 rivaroxaban [Xarelto] 15 mg PO DINNER #1 tab 04/09/21
[2021-04-09 15:30] LABS: Bedside Glucose 131 mg/dL (70-110)
--- NOTE | 2021-04-11 19:11 | DS.PCM_ITS ---
Providers Date of Admission: 04/05/21 Date of Discharge: 04/09/21 Primary Care Physician: Dr. Emerita Gottlieb MD Consultations 04/03/21 14:20 Consult: Cardiology Routine Consulting Provider: Jose Antonio Dorado Reason for Consult: Abnormal stress EMERGENT Consult: No MD Notified: Yes Date Notified: 04/03/21 Time Notified: 14:25 Method of Notification: Text Reason For Visit: CHEST PAIN AND HYPOXIA Diagnosis Discharge Diagnosis (1) Hypoxia: Status: Acute Code(s): R09.02 - Hypoxemia (2) Acute on chronic diastolic CHF (congestive heart failure): Status: Chronic Code(s): I50.33 - Acute on chronic diastolic (congestive) heart failure (3) History of coronary artery stent placement: Status: Chronic Code(s): Z95.5 - Presence of coronary angioplasty implant and graft (4) Longstanding persistent atrial fibrillation: Status: Chronic Code(s): I48.11 - Longstanding persistent atrial fibrillation (5) Sick sinus syndrome: Status: Chronic Code(s): I49.5 - Sick sinus syndrome (6) Chest pain: Status: Acute Code(s): R07.9 - Chest pain, unspecified Qualifiers: Ischemic chest pain type: unstable angina pectoris (7) CAD (coronary artery disease): Status: Chronic Code(s): I25.10 - Atherosclerotic heart disease of [place] coronary artery without angina pectoris Qualifiers: Coronary Disease-Associated Artery/Lesion type: [place] artery [place] vs. transplanted heart: [place] heart Associated angina: with unstable angina Qualified Code(s): I25.110 - Atherosclerotic heart disease of [place] coronary artery with unstable angina pectoris Plan: Discharge diagnosis #1 acute on chronic diastolic congestive heart failure #2 hypoxia secondary to #1 #3 coronary artery disease #4 permanent atrial fibrillation #5 dementia #6 type 2 diabetes #7 hyperlipidemia #8 stage IIIa chronic kidney disease secondary to type 2 diabetes Medications at Discharge Home Medications metoprolol succinate 50 mg PO DAILY 10/11/17 prasugrel 10 mg PO DAILY 06/04/18 duloxetine 30 mg PO DAILY 11/18/18 isosorbide mononitrate 90 mg PO DAILY 02/29/20 levothyroxine 50 mcg PO DAILY 02/29/20 furosemide 20 mg tablet 20 mg PO BID tab 04/19/20 levetiracetam 500 mg tablet 500 mg PO BID tab 04/19/20 omeprazole 20 mg PO DAILY 05/18/20 acetaminophen 650 mg PO Q6H PRN PRN tab 05/22/20 fluticasone propionate 2 spray NARES BID 12/13/20 nitroglycerin 0.4 mg SUBLINGUAL PRN PRN 12/13/20 atorvastatin 20 mg tablet 20 mg PO QHS 01/05/21 bisacodyl 10 mg rectal suppository 10 mg RC Q8 PRN 01/05/21 insulin lispro 100 unit/mL subcutaneous pen 15 unit SC TIDCM ml 01/05/21 latanoprost 0.005 % eye drops 1 drp EACH EYE QHS 01/05/21 sennosides 8.6 mg capsule 8.6 mg PO BID 01/05/21 cetirizine 10 mg PO DAILY 01/22/21 donepezil 10 mg PO QHS 01/22/21 acetaminophen 650 mg PO Q6H PRN PRN tablet 01/23/21 amlodipine 5 mg PO DAILY tablet 01/23/21 bisacodyl [Dulcolax (bisacodyl)] 5 mg PO BID PRN 04/02/21 magnesium hydroxide [Milk of Magnesia] 400 mg PO DAILY PRN 04/02/21 polyethylene glycol 3350 [Miralax] 17 g PO DAILY PRN 04/02/21 hydrocodone-acetaminophen 1 tab PO BID PRN 5 Days #10 tab 04/09/21 insulin glargine [Lantus Solostar U-100 Insulin] 35 units SUBCUT BID #1 ml 04/09/21 memantine 10 mg PO BID #1 tab 04/09/21 rivaroxaban [Xarelto] 15 mg PO DINNER #1 tab 04/09/21 Hospital Course Operations None Procedures Cardiac catheterization and Stress test Summary of Care Provided Minutes Spent on Discharge: 33 Hospital Course: This 75-year-old white female was seen in the emergency room at [facility] after being brought in by squad from an assisted living facility due to complaints of chest discomfort, labs obtained by the emergency room showed a normal CBC with the exception of a hemoglobin of 11.7, chemistry profile was remarkable for a BUN of 21 and creatinine of 1.1, glucose was 172. Patient's alkaline phosphatase was 156. Patient's troponin was unremarkable. Chest x-ray obtained showed a pleural effusion on the right with evidence of mild heart failure. EKG showed atrial fibrillation with a ventricular response of 80. It was felt that the patient had acute on chronic diastolic congestive heart failure along with hypoxia, she was admitted to PCU, she was seen in consultation by cardiology and a stress test was performed which was abnormal. Patient then underwent a cardiac catheterization which showed no evidence of occlusive coronary disease and it was felt that the patient could be treated medically. Patient was seen by PT and OT, it was felt that the patient would benefit from care to [facility]. On 04/09/2021, patient was seen and examined: On examination she appeared her stated age, she does not appear to be in any distress. Vital signs as documented. Skin warm and dry and without overt rashes. Neck without JVD, thyroid appears normal, trachea is midline, neck is supple. Lungs clear, normal air movement was noted. Heart exam notable for irregular rhythm, normal sounds and absence of murmurs, rubs or gallops. Abdomen unremarkable and without evidence of organomegaly, masses, or abdominal aortic enlargement, bowel sounds are present in all 4 quadrants, no abdominal tenderness was noted. Extremities nonedematous, no cyanosis was noted, no clubbing was noted. Neuro: Cranial nerves II through XII are grossly intact, no focal motor deficits were noted, sensation to light touch and pinprick is intact, motor exam 5/5 throughout. Psych: Patient is alert and oriented x3, she does not appear anxious or depressed, she does not appear agitated. Patient was transferred to a [place] [facility] on 04/09/2021 in stable condition for inpatient rehab services. Weight / BMI Weight Weight: 165.4 kg Body Mass Index (BMI) 41.8 ABG / Lab / Microbiology Data Result Diagrams: 04/09/21 06:38 04/09/21 06:38 Microbiology: Microbiology 04/09/21 11:50 Mucosa - Nasopharyngeal SARS-CoV-2 Antigen (Rapid) - Final Meaningful Use Info Meaningful Use Diagnoses (Choose all that apply): CHF CHF DWAIN/ARB ordered at discharge?: No Reason DWAIN/ARB not ordered?: Not indicated Documented LVEF (%): 60 Discharge Plan Admission Admit Date/Time: 04/05/21 15:29 Primary Reason for Your Visit: congestive heart failure-acute on chronic Attending Provider: Kuldeep Puri Primary Care Provider: Emerita Gottlieb Consulting Providers: Jose Antonio Dorado Instructions Patient Instructions: ED Chest Pain, Noncardiac Additional Instructions / Restrictions: Patient Problems: Altered Health Status related to Hospitalization Patient Goals: *Optimal Level of Health *Keep Appointments *Medication Compliance *Remain Safe Discharge Orders/Prescriptions Prescriptions: New memantine 10 mg Tablet 10 mg PO BID Qty: 1 RF: 0 Lantus Solostar U-100 Insulin 100 unit/mL (3 mL) Insulin Pen 35 units subcut BID Qty: 1 RF: 0 Xarelto 15 mg Tablet 15 mg PO DINNER Qty: 1 RF: 0 Continued furosemide 20 mg tablet 20 mg PO BID RF: 0 levetiracetam 500 mg tablet 500 mg PO BID RF: 0 atorvastatin 20 mg tablet 20 mg PO QHS RF: 0 bisacodyl 10 mg suppository 10 mg RC Q8 PRN (Reason: Constipation) RF: 0 latanoprost 0.005 % drops 1 drp EACH EYE QHS RF: 0 senna 8.6 mg capsule 8.6 mg PO BID RF: 0 metoprolol succinate 50 MG tablet extended release 24 hr 50 mg PO DAILY RF: 0 prasugrel 10 MG tablet 10 mg PO DAILY RF: 0 duloxetine 30 MG capsule,delayed release(DR/EC) 30 mg PO DAILY RF: 0 levothyroxine 50 MCG tablet 50 mcg PO DAILY RF: 0 isosorbide mononitrate 30 MG tablet 90 mg PO DAILY RF: 0 omeprazole 20 MG capsule 20 mg PO DAILY RF: 0 acetaminophen 325 MG tablet 650 mg PO Q6H PRN PRN (Reason: Pain Score 1-10/Temp > 100.7 F) RF: 0 nitroglycerin 0.4 MG tablet, sublingual 0.4 mg SUBLINGUAL PRN PRN (Reason: chest pain) RF: 0 fluticasone propionate 1 SPRAY spray,suspension 2 spray NARES BID RF: 0 insulin lispro 100 unit/mL insulin pen 15 unit SC TIDCM RF: 0 cetirizine 10 MG tablet 10 mg PO DAILY RF: 0 donepezil 5 MG tablet 10 mg PO QHS RF: 0 acetaminophen 325 MG tablet 650 mg PO Q6H PRN PRN (Reason: Pain Score 1-10/Temp > 100.7 F) RF: 0 amlodipine 5 MG tablet 5 mg PO DAILY RF: 0 polyethylene glycol 3350 [Miralax] 17 gram Powder In Packet 17 g PO DAILY PRN (Reason: Constipation) RF: 0 magnesium hydroxide [Milk of Magnesia] 400 mg/5 mL Suspension 400 mg PO DAILY PRN (Reason: Constipation) RF: 0 bisacodyl [Dulcolax (bisacodyl)] 5 mg Tablet,Delayed Release (Dr/Ec) 5 mg PO BID PRN (Reason: Constipation) RF: 0 Changed hydrocodone-acetaminophen 5-325 mg Tablet 1 tab PO BID PRN (Reason: Pain) 5 Days Qty: 10 RF: 0 Discontinued insulin glargine 100 unit/mL (3 mL) insulin pen 60 unit SC QPM RF: 0 memantine 5 mg tablet 10 mg PO BID Qty: 1 RF: 0 hydrocodone-acetaminophen [[place]] 5-325 mg Tablet 1 tab PO BID PRN (Reason: Pain) RF: 0 Referrals / Follow Up: Emerita Gottlieb MD [Primary Care Provider] - Disposition Disposition (needs filled in before D/C Order can be placed): Intermediate Facility Charges/Coding Visit Charges Inpatient E&M: 31815 Disch Hosp
== END 2021-04-09 17:18 | disposition skilled nursing facility (03) | DRG 286 ==
LOC: ED 12:11 → PCU 12:28
PROVIDERS: Admitting Provider Family Medicine; Emergency Provider Emergency Medicine; PCP Internal Medicine; Visit Provider Internal Medicine
DX: I13.0 Hypertensive heart and chronic kidney disease with heart failure and stage 1 through stage 4 chronic kidney disease, or unspecified chronic kidney disease (principal); I50.33 Acute on chronic diastolic (congestive) heart failure; Z68.41 Body mass index [BMI] 40.0-44.9, adult; I48.11 Longstanding persistent atrial fibrillation; E66.9 Obesity, unspecified; N18.31 Chronic kidney disease, stage 3a; E11.22 Type 2 diabetes mellitus with diabetic chronic kidney disease; Z87.891 Personal history of nicotine dependence; E78.5 Hyperlipidemia, unspecified; R09.02 Hypoxemia; I25.110 Atherosclerotic heart disease of native coronary artery with unstable angina pectoris; Z95.5 Presence of coronary angioplasty implant and graft; Z86.73 Personal history of transient ischemic attack (TIA), and cerebral infarction without residual deficits; Z95.0 Presence of cardiac pacemaker; Z79.4 Long term (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 of insulin; E03.9 Hypothyroidism, unspecified; Z79.899 Other long term (current) drug therapy; G40.909 Epilepsy, unspecified, not intractable, without status epilepticus; F41.9 Anxiety disorder, unspecified; F32.9 Major depressive disorder, single episode, unspecified; F03.90 Unspecified dementia, unspecified severity, without behavioral disturbance, psychotic disturbance, mood disturbance, and anxiety; I35.0 Nonrheumatic aortic (valve) stenosis
CPT/HCPCS: 36415; 71045; 78452; 80048; 80053; 81001; 82803; 82962; 84484; 85025; 87426; 93005; 93017; 93458; 97110; 97162; 97166; 97530; 97535; 99152; 99153; 99285; A9500; J7030; Q9967; A4216; C1769; C1894; J1940; J2785

== ENCOUNTER → 2021-05-01 05:55 | Outpatient (REF) | payer MEDICARE, MEDICAID, SELFPAY ==
[2021-04-02 13:39] VITALS: BMI 41.8
[2021-05-01 07:58] LABS: Thyroid Stim Hormone (TSH) 2.53 uIU/mL (0.358-3.74)
[2021-05-01 09:41] LABS: Hemoglobin A1c 7.6 % (3.8-5.6)
== END ==
LOC: OLS.SWAL 05:55
PROVIDERS: PCP Internal Medicine; Visit Provider Internal Medicine
DX: E03.9 Hypothyroidism, unspecified (principal); E11.9 Type 2 diabetes mellitus without complications
CPT/HCPCS: 36415; 83036; 84443

== ENCOUNTER 2021-05-26 17:03 | Inpatient (IN) | payer MEDICARE, MEDICAID, SELFPAY ==
[2021-04-02 13:39] VITALS: BMI 41.8
[2021-05-26] VITALS (14 sets, daily range): BP systolic 102–191; BP diastolic 62–100; PULSE 60; RESP 12–36; TEMP 36.4–37.7; O2SAT 82–99; BMI 43.5
--- NOTE | 2021-05-26 17:10 | EKG12_ITS ---
Test Reason : SOB Blood Pressure : / mmHG Vent. Rate : 060 BPM Atrial Rate : 067 BPM P-R Int : 000 ms QRS Dur : 130 ms QT Int : 536 ms P-R-T Axes : 000 -79 090 degrees QTc Int : 536 ms Ventricular-paced rhythm Abnormal ECG Confirmed by TAM GALINDO, LORRAINE ([id number]), subeditor WILLIS HAWKINS ([id number]) on 05/29/2021 9:32:18 AM Referred By: Confirmed By:LORRAINE TURCIOS MD
--- NOTE | 2021-05-26 17:12 | EX.ED.DYSGE1 ---
HPI History of Present Illness Chief Complaint: General Illness Informant: patient and EMS Narrative Narrative: 75-year-old female brought in by EMS for shortness of breath. Reportedly was found to be hypoxemic and difficulty breathing today with decreased mental status. The patient can only tell me that she feels bad but cannot elaborate. Patient has a history of diabetes, CHF, pacemaker. She underwent cardiac catheterization at the end of March was found to have nonobstructive coronary artery disease. She is on anticoagulation due to longstanding atrial fibrillation. [facility] Medical History Alzheimer disease Angina pectoris Anxiety Atherosclerosis of coronary artery without angina pectoris Bone cancer Bundle branch block CAD (coronary artery disease) Cholelithiasis Chronic back pain Chronic diastolic (congestive) heart failure Chronic pain CKD (chronic kidney disease) stage 3, GFR 30-59 ml/min Congestive heart failure (CHF) Depression Diabetes Dysphagia Essential (primary) hypertension GERD (gastroesophageal reflux disease) Goiter History of urinary incontinence Hyperlipidemia Hypothyroidism Kidney disease Longstanding persistent atrial fibrillation Metabolic encephalopathy Moderate aortic stenosis Morbid obesity 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 Nonrheumatic aortic (valve) stenosis Osteoarthritis Osteoarthritis PVD (peripheral vascular disease) Right bundle branch block (RBBB) Seizures Sick sinus syndrome Sleep apnea Type II diabetes mellitus Home Medications metoprolol succinate 50 mg PO DAILY 10/11/17 [History Last Taken 05/18/20] prasugrel 10 mg PO DAILY 06/04/18 [History Last Taken 05/18/20] duloxetine 30 mg PO DAILY 11/18/18 [History Last Taken 05/18/20] isosorbide mononitrate 90 mg PO DAILY 02/29/20 [History Last Taken 05/18/20] furosemide 20 mg tablet 20 mg PO BID tab 04/19/20 [History Last Taken 05/18/20] levetiracetam 500 mg tablet 500 mg PO BID tab 04/19/20 [History Last Taken 05/18/20] omeprazole 20 mg PO DAILY 05/18/20 [History Last Taken 05/18/20] acetaminophen 650 mg PO Q6H PRN PRN tab 05/22/20 [Rx Last Taken Unknown] fluticasone propionate 2 spray NARES BID 12/13/20 [History Last Taken Unknown] nitroglycerin 0.4 mg SUBLINGUAL PRN PRN 12/13/20 [History Last Taken Unknown] atorvastatin 20 mg tablet 20 mg PO QHS 01/05/21 [History Last Taken Unknown] bisacodyl 10 mg rectal suppository 10 mg RC Q8 PRN 01/05/21 [History Last Taken Unknown] insulin lispro 100 unit/mL subcutaneous pen 15 unit SC TIDCM ml 01/05/21 [History Last Taken Unknown] latanoprost 0.005 % eye drops 1 drp EACH EYE QHS 01/05/21 [History Last Taken Unknown] sennosides 8.6 mg capsule 8.6 mg PO BID 01/05/21 [History Last Taken Unknown] amlodipine 5 mg PO DAILY tablet 01/23/21 [Rx Last Taken Unknown] bisacodyl [Dulcolax (bisacodyl)] 5 mg PO BID PRN 04/02/21 [History Last Taken Unknown] magnesium hydroxide [Milk of Magnesia] 400 mg PO DAILY PRN 04/02/21 [History Last Taken Unknown] polyethylene glycol 3350 [Miralax] 17 g PO DAILY PRN 04/02/21 [History Last Taken Unknown] insulin glargine [Lantus Solostar U-100 Insulin] 35 units SUBCUT BID #1 ml 04/09/21 [Rx Last Taken Unknown] rivaroxaban [Xarelto] 15 mg PO DINNER #1 tab 04/09/21 [Rx Last Taken Unknown] cetirizine [Zyrtec] 10 mg PO DAILY 05/26/21 [History Last Taken Unknown] donepezil [Aricept] 10 mg PO DAILY 05/26/21 [History Last Taken Unknown] levothyroxine [Synthroid] 50 mcg PO DAILY 05/26/21 [History Last Taken Unknown] memantine 10 mg PO BID 05/26/21 [History Last Taken Unknown] potassium chloride 20 meq PO MOWEFR 05/26/21 [History Last Taken Unknown] trazodone 50 mg PO QHS 05/26/21 [History Last Taken Unknown] Allergy/AdvReac Type Severity Reaction Status Date / Time atorvastatin calcium Allergy dont Verified 05/26/21 17:05 [From Lipitor] remember codeine Allergy Rash Verified 05/26/21 17:05 iodine Allergy Rash Verified 05/26/21 17:05 Latex, Natural Rubber Allergy Rash Verified 05/26/21 17:05 lovastatin Allergy Rash Verified 05/26/21 17:05 rosuvastatin calcium Allergy rash\ Verified 05/26/21 17:05 [From Crestor] tositumomab Allergy PT UNSURE Verified 05/26/21 17:05 OF REACTION naproxen [From Naprosyn] AdvReac Upset Verified 05/26/21 17:05 Stomach pregabalin [From Lyrica] AdvReac Upset Verified 05/26/21 17:05 Stomach Sulfa (Sulfonamide AdvReac Upset Verified 05/26/21 17:05 Antibiotics) Stomach Family History Other Cancer Surgical History History of coronary artery stent placement (01/25/11) History of hysterectomy History of left heart catheterization (04/04/21) History of loop recorder (2013) History of permanent cardiac pacemaker placement (03/05/17) History of thyroidectomy Social History household members: none housing: half-way Smoking Status: Former smoker details: Not presently substance use type: does not use ROS ROS ED Review of Systems ROS Unobtainable: due to mental status EXAM Physical Exam Const Vital Signs: 05/26/21 17:05 05/26/21 17:10 05/26/21 17:13 Temperature 98.1 F Temperature Source Temporal Pulse Rate 60 60 60 Respiratory Rate 24 H 22 H 21 H Respiratory Effort Short of Breath Respiratory Pattern Tachypnea Blood Pressure 152/86 H 152/86 H 161/74 H Blood Pressure Mean 108 108 103 Pulse Ox 82 92 99 Oxygen Delivery Method Room Air Bi-pap Bi-pap Fraction of Inspired Oxygen (FIO2) 05/26/21 17:24 05/26/21 18:34 05/26/21 18:43 Temperature 98.6 F Temperature Source Temporal Pulse Rate 60 60 60 Respiratory Rate 33 H 35 H 36 H Respiratory Effort Respiratory Pattern Tachypnea Tachypnea Blood Pressure 146/100 H Blood Pressure Mean 115 Pulse Ox 96 96 95 Oxygen Delivery Method Bi-pap Fraction of Inspired Oxygen (FIO2) 6 55 05/26/21 19:00 05/26/21 20:10 05/26/21 20:36 Temperature 98.6 F 97.6 F L 97.9 F Temperature Source Temporal Temporal Temporal Pulse Rate 60 60 60 Respiratory Rate 29 H 31 H 20 H Respiratory Effort Respiratory Pattern Blood Pressure 191/84 H 169/70 H 160/67 H Blood Pressure Mean 119 103 98 Pulse Ox 97 97 97 Oxygen Delivery Method Bi-pap Bi-pap Bi-pap Fraction of Inspired Oxygen (FIO2) 55 05/26/21 20:43 Temperature Temperature Source Pulse Rate 60 Respiratory Rate 36 H Respiratory Effort Respiratory Pattern Tachypnea Blood Pressure Blood Pressure Mean Pulse Ox 97 Oxygen Delivery Method Fraction of Inspired Oxygen (FIO2) 35 Positive well nourished, well developed and obese General Appearance ED: well developed Nutritional Appearance: obese HEENT Reports normocephalic, head/scalp atraumatic and moist mucous membranes Eyes PERRL and EOMs intact bilaterally Eyes Narrative: Pupils 3-2 bilaterally Neck no lymphadenopathy, supple and no JVD Resp Resp Narrative: The patient has increased work of breathing. Auscultation: rales Cardio regular rate and regular rhythm GI normal to inspection, nondistended, normoactive bowel sounds and non-tender Palpation: soft Back/Spine no CVA tenderness and normal ROM Extremity General Extremety ED: Yes edema and tenderness General Extremity: edema Neuro Neuro Narrative: Patient follows basic commands speaks minimally Sensorium / Orientation: lethargic Psych Mood & Affect: Negative for depressed or tearful Skin no rashes or lesions noted and no wounds MDM MDM MDM Narrative Medical decision making narrative: Patient's white blood cell count is 29.8. Hemoglobin 11.7. Creatinine 1.36. Troponin 15.9. Lactic acid is elevated at 2.4. BNP mildly elevated at 329. My interpretation of the chest x-ray is right greater than left pleural effusion. The right pleural effusion has been present before. CT the chest shows bilateral pleural effusions and pulmonary edema. Patient received Rocephin and azithromycin. I felt this was prudent given her elevated white blood cell count and my inability to exclude that the atelectatic changes around the effusion might also be infiltrate. Patient required IV Lasix as well as being placed on a BiPAP. Short time after being on BiPAP the patient was more alert. Patient will require admission to the ICU. Current CODE STATUS is DNR Comfort Care arrest unfortunately none of her paperwork that documents this came from the half-way. We are looking to see if there is a copy here at the hospital Lab Data Labs: Laboratory Results - last 24 hr 05/26/21 05/26/21 05/26/21 16:50 16:50 16:50 WBC 29.8 H RBC 4.84 Hgb 11.7 L Hct 40.8 MCV 84.3 MCH 24.2 L MCHC 28.7 L RDW Std Deviation 47.8 H RDW Coeff of Candace 15.7 H Plt Count 301 MPV 11.7 Immature Gran % (Auto) 1.000 H Neut % (Auto) 88.1 H Lymph % (Auto) 4.7 L [place] % (Auto) 5.6 Eos % (Auto) 0.3 Baso % (Auto) 0.3 Absolute Neuts (auto) 26.3 H Absolute Lymphs (auto) 1.41 Nucleated RBC % 0.1 Differential Comment SCANNED Diff Path Review May foll PT Cancelled INR Cancelled APTT Cancelled Sodium 138 Potassium 4.4 Chloride 103 Carbon Dioxide 28.0 Anion Gap 7 BUN 21 H Creatinine 1.36 H Estim Creat Clear Calc 27.40 Est GFR (MDRD) Af Amer 48 L Est GFR (MDRD) Non-Af 40 L BUN/Creatinine Ratio 15.4 Glucose 190 H Lactic Acid Calcium 8.9 Magnesium Total Bilirubin 0.90 AST 26 ALT 22 Alkaline Phosphatase 124 H Troponin I High Sens 15.9 B-Natriuretic Peptide Total Protein 8.5 H Albumin 3.5 Globulin 5.0 H Albumin/Globulin Ratio 0.7 L Urine Color Urine Clarity Urine pH Ur Specific [place] Urine Protein Urine Glucose (UA) Urine Ketones Urine Occult Blood Urine Nitrite Urine Bilirubin Urine Urobilinogen Ur Leukocyte Esterase Urine RBC Urine WBC Ur Squamous Epith Cells Urine Bacteria Urine Mucus 05/26/21 05/26/21 05/26/21 16:50 16:50 17:15 WBC RBC Hgb Hct MCV MCH MCHC RDW Std Deviation RDW Coeff of [place] Plt Count MPV Immature Gran % (Auto) Neut % (Auto) Lymph % (Auto) [place] % (Auto) Eos % (Auto) Baso % (Auto) Absolute Neuts (auto) Absolute Lymphs (auto) Nucleated RBC % Differential Comment Diff Path Review PT INR APTT Sodium Potassium Chloride Carbon Dioxide Anion Gap BUN Creatinine Estim Creat Clear Calc Est GFR (MDRD) Af Amer Est GFR (MDRD) Non-Af BUN/Creatinine Ratio Glucose Lactic Acid 2.4 H* Calcium Magnesium 2.2 Total Bilirubin AST ALT Alkaline Phosphatase Troponin I High Sens B-Natriuretic Peptide 329.5 H Total Protein Albumin Globulin Albumin/Globulin Ratio Urine Color Urine Clarity Urine pH Ur Specific [place] Urine Protein Urine Glucose (UA) Urine Ketones Urine Occult Blood Urine Nitrite Urine Bilirubin Urine Urobilinogen Ur Leukocyte Esterase Urine RBC Urine WBC Ur Squamous Epith Cells Urine Bacteria Urine Mucus 05/26/21 05/26/21 17:34 18:30 WBC RBC Hgb Hct MCV MCH MCHC RDW Std Deviation RDW Coeff of Candace Plt Count MPV Immature Gran % (Auto) Neut % (Auto) Lymph % (Auto) [place] % (Auto) Eos % (Auto) Baso % (Auto) Absolute Neuts (auto) Absolute Lymphs (auto) Nucleated RBC % Differential Comment Diff Path Review PT 16.5 H INR 1.4 APTT 35.5 Sodium Potassium Chloride Carbon Dioxide Anion Gap BUN Creatinine Estim Creat Clear Calc Est GFR (MDRD) Af Amer Est GFR (MDRD) Non-Af BUN/Creatinine Ratio Glucose Lactic Acid Calcium Magnesium Total Bilirubin AST ALT Alkaline Phosphatase Troponin I High Sens B-Natriuretic Peptide Total Protein Albumin Globulin Albumin/Globulin Ratio Urine Color Yellow Urine Clarity Sl. Cloudy Urine pH 6.0 Ur Specific [place] 1.025 Urine Protein 100 H Urine Glucose (UA) Normal Urine Ketones Negative Urine Occult Blood 10 H Urine Nitrite Negative Urine Bilirubin Negative Urine Urobilinogen Normal Ur Leukocyte Esterase 500 H Urine RBC 0-5 SEEN Urine WBC 10-25 SEEN Ur Squamous Epith Cells 0-5 SEEN Urine Bacteria RARE Urine Mucus 0 SEEN Radiography Diagnostic Testing: Radiology Impression Chest X-Ray 05/26/21 17:30 IMPRESSION: 1. Mildly increased right pleural effusion. 2. Vascular congestion suggesting fluid overload. Electronically Signed: Naseem Swanson MD ([place]) at 17:47 EDT , Service support , Brain CT 05/26/21 18:56 IMPRESSION: No acute intracranial hemorrhage or mass effect. Electronically Signed: Naseem Swanson MD ([place]) at 19:38 EDT , Service support , Chest CT 05/26/21 18:56 IMPRESSION: 1. CHF with interstitial edema and right larger than left pleural effusions. 2. Lower more than upper lobe atelectasis. Electronically Signed: Naseem Swanson MD ([place]) at 19:41 EDT , Service support , EKG Initial EKG: Attestation: I personally reviewed and interpreted this EKG as follows: Comments: Ventricular paced rhythm at 60 bpm Critical Care Time Critical Care Time: Yes Critical care time (excluding procedures): 30-74 minutes (35 min), Including time spent:, Discussing w/Patient &/or Family/Milk Powder Grinder, Discussing w/Consultants, Arranging Admission or Transfer and Performing Direct Patient Care at Bedside Discharge Plan Dx/Rx/DC Orders Clinical Impression: Acute hypoxemic respiratory failure, Encephalopathy acute, Bilateral pleural effusion, Congestive heart failure Disposition Disposition: Acute Care [facility]
[2021-05-26 17:20] LABS: Absolute Lymphocyte Count 1.41 X10^3/uL (0.83-4.51); Absolute Neutrophil Count 26.3 X10^3/uL (2.0-7.7); Basophil% 0.3 % (0-1); Eosinophil# 0.09 X10^3/uL; Eosinophils% 0.3 % (0-5); Hematocrit 40.8 % (37-47); Hemoglobin 11.7 g/dL (12.0-15.0); Lymphocyte # 1.41 X10^3/ul (0.83-4.51); Lymphocyte % 4.7 % (19-41); Mean Corp Hgb Conc 28.7 g/dL (32-36); Mean Corpuscular Hgb 24.2 pg (27.0-32.0); Mean Corpuscular Volume 84.3 fL (81-99); Mean Platelet Vol. 11.7 fl (6.2-12.0); Monocyte# 1.66 X10^3/uL; Monocyte% 5.6 % (0-10); NRBC Flagged by Analyzer 0.1 % (0-5); Neutrophil # 26.25 X10^3/uL (2.7-7.7); Neutrophil % 88.1 % (47-70); POSITIVE DIFFERENTIAL YES; Platelet Count 301 K/mm3 (150-450); RBC Distribution Width CV 15.7 % (11.6-14.6); RBC Distribution Width SD 47.8 fl (35.1-43.9); Red Blood Count 4.84 M/mm3 (4.2-5.4); White Blood Count 29.8 K/mm3 (4.4-11.0)
[2021-05-26 17:23] LABS: Differential Indicated SCAN CRITERIA MET
--- NOTE | 2021-05-26 17:30 | RAD_ITS ---
STUDY: X-RAY CHEST REASON FOR EXAM: Female, 75 years old. Respiratory Failure TECHNIQUE: AP COMPARISON: 04/02/2021 FINDINGS: Mild increased opacity in the lateral right lung base. Linear scarring or atelectasis in the left lung base. No pneumothorax. There is moderate cardiac enlargement. Cardiac conduction device is stable. Central pulmonary vascular congestion. There is atherosclerotic calcification of the aortic arch with tortuosity. No acute bony process. There is no demonstrated abnormality of the visualized soft tissue structures of the upper abdomen. RAD/Chest 1 View (Portable) IMPRESSION: 1. Mildly increased right pleural effusion. 2. Vascular congestion suggesting fluid overload. Electronically Signed: Naseem Swanson MD ([place]) at 17:47 EDT , Service support ,
[2021-05-26 17:40] LABS: ALB/GLOB Ratio 0.7 RATIO (0.9-2.4); AST(SGOT) 26 U/L (15-37); Alanine Aminotransfer ALT/SGPT 22 U/L (13-56); Albumin, Serum 3.5 g/dL (3.2-5.0); Alkaline Phosphatase 124 U/L (45-117); Anion Gap 7 (5-15); BUN 21 mg/dL (7-18); BUN/Creat Ratio 15.4 RATIO (10-20); Calcium,Total 8.9 mg/dL (8.5-10.1); Chloride 103 mmol/L (98-107); Creatinine, Serum 1.36 mg/dL (0.55-1.02); EST Glomerular Filtration Rate 40 mL/min (>60); Est Glom Filt Rate - Afr Amer 48 mL/min (>60); Glucose 190 mg/dL (74-106); Potassium 4.4 mmol/L (3.5-5.1); Protein, Total 8.5 g/dL (6.4-8.2); Sodium Level 138 mmol/L (136-145); Troponin-I HS 15.9 pg/mL (3.0-53.7)
[2021-05-26 17:48] LABS: Lactic Acid 2.4 mmol/L (0.4-1.9)
[2021-05-26 18:04] LABS: Differential Comment SCANNED
[2021-05-26 18:14] LABS: International Normalized Ratio 1.4; Prothrombin Time (Protime)PT. 16.5 SECONDS (11.7-14.9)
[2021-05-26 18:15] LABS: Partial Thromboplast Time 35.5 Seconds (24.1-36.2)
[2021-05-26 18:34] LABS: Mucous, Urine 0 SEEN /hpf (<or=2+)
[2021-05-26 18:41] LABS: Color, Urine Yellow (Yellow); Glucose, Dipstick Normal (Normal); Ketone-Dipstick Negative (Negative); Leukocyte Esterase-Dipstick 500 /ul (Negative); Nitrite-Dipstick Negative (Negative); Occult Blood-Urine 10 /ul (Negative); Protein-Dipstick 100 mg/dl (Negative); Specific Gravity, Urine 1.025 (1.002-1.030); Urine Bilirubin Dipstick Negative (Negative); Urine Clarity Sl. Cloudy (Clear); Urine Urobilinogen Normal (Normal)
--- NOTE | 2021-05-26 18:45 | ED.RN ---
sepsis alert brought to ed dr emilie. no current source per dr. no additional orders at this time. miya mota rn [id number]
[2021-05-26 18:47] LABS: White Blood Cells 10-25 SEEN /hpf (0-5)
[2021-05-26 18:48] LABS: Bacteria RARE /hpf (None Seen); Red Blood Cells-Urine 0-5 SEEN /hpf (0-5); Squamous Epithelial Cells - UA 0-5 SEEN /hpf (5-10)
--- NOTE | 2021-05-26 18:56 | CT_ITS ---
STUDY: CT BRAIN WITHOUT CONTRAST REASON FOR EXAM: Female, 75 years old. altered loc RADIATION DOSAGE (If Supplied By Facility): CTDIvol = ( 44.99 ) mGy, DLP = ( 812.98 ) mGycm TECHNIQUE: Transaxial CT imaging of the brain was performed without administration of intravenous contrast material. Individualized dose optimization techniques were used for this CT. COMPARISON: 01/22/2021 FINDINGS: Normal soft tissue structures. Normal calvarium. There is mild cerebral atrophy with widening of the extra-axial spaces and ventricular dilatation. There are areas of decreased attenuation within the white matter tracts of the supratentorial brain, consistent with microvascular disease changes. Normal basal ganglia and thalami. Normal brainstem. Normal cerebellum. There is no intracranial hemorrhage. There are no findings of an acute ischemic infarction. Normal visualized paranasal sinuses. CT/Brain/Head without Contrast IMPRESSION: No acute intracranial hemorrhage or mass effect. Electronically Signed: Naseem Swanson MD ([place]) at 19:38 EDT , Service support ,
--- NOTE | 2021-05-26 18:56 | CT_ITS ---
STUDY: CT CHEST WITHOUT CONTRAST REASON FOR EXAM: Female, 75 years old. pleural effusion RADIATION DOSAGE (If Supplied By Facility): CTDIvol = ( 19.84 ) mGy, DLP = ( 704.07 ) mGycm TECHNIQUE: Transaxial imaging was performed without the administration of intravenous contrast material. Multiplanar coronal and sagittal images were reformatted. Individualized dose optimization techniques were used for this CT. COMPARISON: None. FINDINGS: Peribronchial thickening and scattered groundglass opacities. No cavitating process. Right larger than left pleural effusions with compressive atelectasis involving the bilateral lower lobes. There is also dependent atelectasis of the bilateral upper lobes. Heart is mildly enlarged. Cardiac monitoring device in the anterior chest wall. Single-chamber cardiac conduction device noted. Mitral valve calcifications are present. Normal mediastinum. Normal hilar regions. There is prominence of the pulmonary hilar arteries and peripheral pulmonary arteries, consistent with congestive heart failure (CHF). Normal aorta arch and descending thoracic aorta. There are multi-level degenerative changes of the thoracic spine. There is no demonstrated abnormality of the visualized upper abdomen. CT/Chest without Contrast IMPRESSION: 1. CHF with interstitial edema and right larger than left pleural effusions. 2. Lower more than upper lobe atelectasis. Electronically Signed: Naseem Swanson MD ([place]) at 19:41 EDT , Service support ,
[2021-05-26 19:35] LABS: BNP,B-Type NATRIURETIC PEPTIDE 329.5 pg/mL (0-100)
[2021-05-26] MEDS: Ceftriaxone 1 GM/50 ML BAG IV (19:59)
[2021-05-26] MEDS: Furosemide 100 MG/10 ML Vial 80 MG IV (19:59)
--- NOTE | 2021-05-26 20:20 | PCM.HP.STD ---
HPI - General General Date of Admission: 05/26/21 Date of Service: 05/26/21 Chief Complaint: Shortness of breath, altered mental status HPI Narrative MILTON HERMOSILLO, is a 75 F with tubal comorbidities, snf resident was brought to ED by EMS for shortness of breath, hypoxia and altered mental status. Patient was found to be confused, decreased mentation, hypoxic in the morning. When I saw the patient, patient is confused, on BiPAP therefore history mainly from review of chart and ER physician although she has had no when asked about chest pain/pressure. The patient has history of nonobstructive coronary artery disease, chronic systolic heart failure, moderate aortic stenosis, PVD, sick sinus syndrome status post pacemaker and paroxysmal A. fib on anticoagulation. Twelve-lead EKG shows ventricular paced rhythm at 60 bpm. Previous EKG 06 April 2021 shows A. fib with occasional VPC, LAD, RBBB with no significant change from current EKG. Labs reviewed. Chest x-ray shows vascular congestion with moderate increased right pleural effusion as compared to previous 1. Patient further had chest CT which affirms interstitial edema and pleural effusion. CT brain no acute intracranial hemorrhage or mass-effect. Patient is further admitted in ICU. [facility] Medical History Alzheimer disease Angina pectoris Anxiety Atherosclerosis of coronary artery without angina pectoris Bone cancer Bundle branch block CAD (coronary artery disease) Cholelithiasis Chronic back pain Chronic diastolic (congestive) heart failure Chronic pain CKD (chronic kidney disease) stage 3, GFR 30-59 ml/min Congestive heart failure (CHF) Depression Diabetes Dysphagia Essential (primary) hypertension GERD (gastroesophageal reflux disease) Goiter History of urinary incontinence Hyperlipidemia Hypothyroidism Kidney disease Longstanding persistent atrial fibrillation Metabolic encephalopathy Moderate aortic stenosis Morbid obesity 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 Nonrheumatic aortic (valve) stenosis Osteoarthritis Osteoarthritis PVD (peripheral vascular disease) Right bundle branch block (RBBB) Seizures Sick sinus syndrome Sleep apnea Type II diabetes mellitus Home Medications metoprolol succinate 50 mg PO DAILY 10/11/17 [History Last Taken 05/18/20] prasugrel 10 mg PO DAILY 06/04/18 [History Last Taken 05/18/20] duloxetine 30 mg PO DAILY 11/18/18 [History Last Taken 05/18/20] isosorbide mononitrate 90 mg PO DAILY 02/29/20 [History Last Taken 05/18/20] furosemide 20 mg tablet 20 mg PO BID tab 04/19/20 [History Last Taken 05/18/20] levetiracetam 500 mg tablet 500 mg PO BID tab 04/19/20 [History Last Taken 05/18/20] omeprazole 20 mg PO DAILY 05/18/20 [History Last Taken 05/18/20] acetaminophen 650 mg PO Q6H PRN PRN tab 05/22/20 [Rx Last Taken Unknown] fluticasone propionate 2 spray NARES BID 12/13/20 [History Last Taken Unknown] nitroglycerin 0.4 mg SUBLINGUAL PRN PRN 12/13/20 [History Last Taken Unknown] atorvastatin 20 mg tablet 20 mg PO QHS 01/05/21 [History Last Taken Unknown] bisacodyl 10 mg rectal suppository 10 mg RC Q8 PRN 01/05/21 [History Last Taken Unknown] insulin lispro 100 unit/mL subcutaneous pen 15 unit SC TIDCM ml 01/05/21 [History Last Taken Unknown] latanoprost 0.005 % eye drops 1 drp EACH EYE QHS 01/05/21 [History Last Taken Unknown] sennosides 8.6 mg capsule 8.6 mg PO BID 01/05/21 [History Last Taken Unknown] amlodipine 5 mg PO DAILY tablet 01/23/21 [Rx Last Taken Unknown] bisacodyl [Dulcolax (bisacodyl)] 5 mg PO BID PRN 04/02/21 [History Last Taken Unknown] magnesium hydroxide [Milk of Magnesia] 400 mg PO DAILY PRN 04/02/21 [History Last Taken Unknown] polyethylene glycol 3350 [Miralax] 17 g PO DAILY PRN 04/02/21 [History Last Taken Unknown] insulin glargine [Lantus Solostar U-100 Insulin] 35 units SUBCUT BID #1 ml 04/09/21 [Rx Last Taken Unknown] rivaroxaban [Xarelto] 15 mg PO DINNER #1 tab 04/09/21 [Rx Last Taken Unknown] cetirizine [Zyrtec] 10 mg PO DAILY 05/26/21 [History Last Taken Unknown] donepezil [Aricept] 10 mg PO DAILY 05/26/21 [History Last Taken Unknown] levothyroxine [Synthroid] 50 mcg PO DAILY 05/26/21 [History Last Taken Unknown] memantine 10 mg PO BID 05/26/21 [History Last Taken Unknown] potassium chloride 20 meq PO MOWEFR 05/26/21 [History Last Taken Unknown] trazodone 50 mg PO QHS 05/26/21 [History Last Taken Unknown] Allergy/AdvReac Type Severity Reaction Status Date / Time atorvastatin calcium Allergy dont Verified 05/26/21 17:05 [From Lipitor] remember codeine Allergy Rash Verified 05/26/21 17:05 iodine Allergy Rash Verified 05/26/21 17:05 Latex, Natural Rubber Allergy Rash Verified 05/26/21 17:05 lovastatin Allergy Rash Verified 05/26/21 17:05 rosuvastatin calcium Allergy rash\ Verified 05/26/21 17:05 [From Crestor] tositumomab Allergy PT UNSURE Verified 05/26/21 17:05 OF REACTION naproxen [From Naprosyn] AdvReac Upset Verified 05/26/21 17:05 Stomach pregabalin [From Lyrica] AdvReac Upset Verified 05/26/21 17:05 Stomach Sulfa (Sulfonamide AdvReac Upset Verified 05/26/21 17:05 Antibiotics) Stomach Family History Other Cancer Surgical History History of coronary artery stent placement (01/25/11) History of hysterectomy History of left heart catheterization (04/04/21) History of loop recorder (2013) History of permanent cardiac pacemaker placement (03/05/17) History of thyroidectomy Social History household members: none housing: snf Smoking Status: Former smoker details: Not presently substance use type: does not use ROS ROS Narrative 12 ROS unobtainable as patient is confused disoriented on BiPAP, and respiratory failure Review of Systems ROS Unobtainable: due to encephalopathy and due to mental status Vital Signs Vital Signs Vital Signs: 05/26/21 17:05 05/26/21 17:10 05/26/21 17:13 Temperature 98.1 F Temperature Source Temporal Pulse Rate 60 60 60 Respiratory Rate 24 H 22 H 21 H Respiratory Effort Short of Breath Respiratory Pattern Tachypnea Blood Pressure 152/86 H 152/86 H 161/74 H Blood Pressure Mean 108 108 103 Pulse Ox 82 92 99 Oxygen Delivery Method Room Air Bi-pap Bi-pap Fraction of Inspired Oxygen (FIO2) 05/26/21 17:24 05/26/21 18:34 05/26/21 18:43 Temperature 98.6 F Temperature Source Temporal Pulse Rate 60 60 60 Respiratory Rate 33 H 35 H 36 H Respiratory Effort Respiratory Pattern Tachypnea Tachypnea Blood Pressure 146/100 H Blood Pressure Mean 115 Pulse Ox 96 96 95 Oxygen Delivery Method Bi-pap Fraction of Inspired Oxygen (FIO2) 6 55 05/26/21 19:00 05/26/21 20:10 Temperature 98.6 F 97.6 F L Temperature Source Temporal Temporal Pulse Rate 60 60 Respiratory Rate 29 H 31 H Respiratory Effort Respiratory Pattern Blood Pressure 191/84 H 169/70 H Blood Pressure Mean 119 103 Pulse Ox 97 97 Oxygen Delivery Method Bi-pap Bi-pap Fraction of Inspired Oxygen (FIO2) 55 Weight Weight: 238 lb 1.588 oz Body Mass Index (BMI) 43.5 Physical Exam Narrative General: Lethargic, confused on BiPAP. HEENT: Atraumatic, PERRLA, EOMI, Normocephalic Oral: No Gingival or Mucosal Lesions/ Ulcerations Neck: Supple, No JVD, Negative Carotid Bruits Lungs: Air entry diminished in right lower as compared to left side. No crepitations/rhonchi. Cardiovascular: Paced rhythm normal S1, Normal S2, ejection systolic murmur over left second ICS Abdomen: Bowel Sounds Present, Soft, Non Tender, Non-Distended : No renal angle tenderness. No suprapubic tenderness. Extremities: Bilateral lower extremity edema, Capillary Refill Less than 3 Seconds Skin: No open ulcer but lymphedema Musculoskeletal: No Tenderness to Palpation of Joints or Extremities Neurological: Lethargic, DTR 2+/4 and Symmetrical, nonfocal exam Psych/Mental Status: Confused, dementia Results Lab / Micro Data Result Diagrams: 05/26/21 16:50 05/26/21 16:50 Labs: Laboratory Results - last 24 hr 05/26/21 16:50: WBC 29.8 H, RBC 4.84, Hgb 11.7 L, Hct 40.8, MCV 84.3, MCH 24.2 L, MCHC 28.7 L, RDW Std Deviation 47.8 H, RDW Coeff of Candace 15.7 H, Plt Count 301, MPV 11.7, Immature Gran % (Auto) 1.000 H, Neut % (Auto) 88.1 H, Lymph % (Auto) 4.7 L, [place] % (Auto) 5.6, Eos % (Auto) 0.3, Baso % (Auto) 0.3, Absolute Neuts (auto) 26.3 H, Absolute Lymphs (auto) 1.41, Nucleated RBC % 0.1, Differential Comment SCANNED, Diff Path Review February foll 05/26/21 16:50: PT Cancelled, INR Cancelled, APTT Cancelled 05/26/21 16:50: Sodium 138, Potassium 4.4, Chloride 103, Carbon Dioxide 28.0, Anion Gap 7, BUN 21 H, Creatinine 1.36 H, Estim Creat Clear Calc 27.40, Est GFR (MDRD) Af Amer 48 L, Est GFR (MDRD) Non-Af 40 L, BUN/Creatinine Ratio 15.4, Glucose 190 H, Calcium 8.9, Total Bilirubin 0.90, AST 26, ALT 22, Alkaline Phosphatase 124 H, Troponin I High Sens 15.9, Total Protein 8.5 H, Albumin 3.5, Globulin 5.0 H, Albumin/Globulin Ratio 0.7 L 05/26/21 16:50: B-Natriuretic Peptide 329.5 H 05/26/21 17:15: Lactic Acid 2.4 H* 05/26/21 17:34: PT 16.5 H, INR 1.4, APTT 35.5 05/26/21 18:30: Urine Color Yellow, Urine Clarity Sl. Cloudy, Urine pH 6.0, Ur Specific [place] 1.025, Urine Protein 100 H, Urine Glucose (UA) Normal, Urine Ketones Negative, Urine Occult Blood 10 H, Urine Nitrite Negative, Urine Bilirubin Negative, Urine Urobilinogen Normal, Ur Leukocyte Esterase 500 H, Urine RBC 0-5 SEEN, Urine WBC 10-25 SEEN, Ur Squamous Epith Cells 0-5 SEEN, Urine Bacteria RARE, Urine Mucus 0 SEEN Micro: Microbiology 05/26/21 17:25 Mucosa - Nose SARS-CoV-2 Antigen (Rapid) - Final Radiology Impression Chest X-Ray 05/26/21 17:30 IMPRESSION: 1. Mildly increased right pleural effusion. 2. Vascular congestion suggesting fluid overload. Electronically Signed: Naseem Swanson MD ([place]) at 17:47 EDT , Service support , Brain CT 05/26/21 18:56 IMPRESSION: No acute intracranial hemorrhage or mass effect. Electronically Signed: Naseem Swanson MD ([place]) at 19:38 EDT , Service support , Chest CT 05/26/21 18:56 IMPRESSION: 1. CHF with interstitial edema and right larger than left pleural effusions. 2. Lower more than upper lobe atelectasis. Electronically Signed: Naseem Swanson MD ([place]) at 19:41 EDT , Service support , Assessment & Plan Assessment/Plan (1) Acute hypoxemic respiratory failure: (2) Acute on chronic diastolic CHF (congestive heart failure): (3) Moderate aortic stenosis: PLAN: MILTON HERMOSILLO, is a 75 F with tubal comorbidities, snf resident was brought to ED by EMS for shortness of breath, hypoxia and altered mental status with overall assessment consistent of acute on chronic diastolic heart failure, bilateral pleural effusion and severe sepsis 1. Acute hypoxic respiratory failure secondary to CHF exacerbation, bilateral pleural effusion and severe sepsis possible healthcare associated pneumonia: The patient is being admitted in ICU. On BiPAP. Consult appliance counselor for more than management of respiratory failure. ABG ordered. CT chest shows interstitial edema right more than left pleural effusion possible underlying consolidation. Patient had 1 dose of IV ceftriaxone and Zithromax in ED. Started on broad-spectrum IV Zosyn. Patient is tachypneic, hypoxic, leukocytosis and lactic acidosis. Patient not candidate for fluid bolus as per severe sepsis criteria because of CHF exacerbation. 2. Acute on chronic diastolic heart failure/HFpEF: Last echo in January 2021 reported EF 60%, severe concentric LVH, moderate aortic stenosis, AVR 0.9 cm?. During previous hospitalization in March 2021 for similar heart failure exacerbation, patient had a stress test which reported concern for ryan-infarct myocardial infarct ischemia therefore patient had cardiac cath which reported unremarkable with patent stent in LAD and left circumflex and recommended medical therapy. Patient received 80 mg IV Lasix. Continue Lasix 40 mg IV twice daily with Diuril 500 mg IV, half an hour before Lasix for adequate diuresis while n.p.o. then switched to metolazone on diet. We will consult cardiology. 3. Multiple other cardiac conditions: Sick sinus syndrome status post pacemaker, coronary artery status post stents, proximal A. fib on anticoagulant, RBBB and moderate aortic stenosis: Home medications will be continued, adjusted as per hemodynamics. 4. Diabetes mellitus type 2: Accu-Cheks every 6 and correctional sliding scale and Lantus insulin. Currently n.p.o., insulin dose to be adjusted as per Accu-Cheks. 4. Hypothyroidism -Continue Synthroid 5.acute encephalopathy with history of anxiety/depression/dementia: Hold donezepil memantine and Cymbalta. 6. Acute kidney injury on CKD stage IIIb : Consult java software developer. Patient baseline creatinine runs around 1.1-1.2. Currently 1.3. Patient has Douglas catheter with clear urine. Other multiple comorbidities include GERD, dyslipidemia, decreased functional activity: Currently there is no open ulcer in the legs But lymphedema. Living will/advanced directive/end of life care: Patient does have living will or advanced directive. As per previous hospitalization, patient is DNR CC arrest. Patient does not want artificial life support including intubation, tube feed, ventilator and/chest compression, central venous catheter, vasopressor and DC shock if needed Total time spent in [id number] encounter in discussion of advanced directive 16 minutes. Microbiology Past 72 Hours 05/26/21 17:25 Mucosa - Nose SARS-CoV-2 Antigen (Rapid) - Final Laboratory Results 05/26/21 16:50: WBC 29.8 H, RBC 4.84, Hgb 11.7 L, Hct 40.8, MCV 84.3, MCH 24.2 L, MCHC 28.7 L, RDW Std Deviation 47.8 H, RDW Coeff of Candace 15.7 H, Plt Count 301, MPV 11.7, Immature Gran % (Auto) 1.000 H, Neut % (Auto) 88.1 H, Lymph % (Auto) 4.7 L, [place] % (Auto) 5.6, Eos % (Auto) 0.3, Baso % (Auto) 0.3, Absolute Neuts (auto) 26.3 H, Absolute Lymphs (auto) 1.41, Nucleated RBC % 0.1, Differential Comment SCANNED, Diff Path Review February05/26/21 16:50: Sodium 138, Potassium 4.4, Chloride 103, Carbon Dioxide 28.0, Anion Gap 7, BUN 21 H, Creatinine 1.36 H, Estim Creat Clear Calc 27.40, Est GFR (MDRD) Af Amer 48 L, Est GFR (MDRD) Non-Af 40 L, BUN/Creatinine Ratio 15.4, Glucose 190 H, Calcium 8.9, Total Bilirubin 0.90, AST 26, ALT 22, Alkaline Phosphatase 124 H, Troponin I High Sens 15.9, Total Protein 8.5 H, Albumin 3.5, Globulin 5.0 H, Albumin/Globulin Ratio 0.7 L 05/26/21 16:50: B-Natriuretic Peptide 329.5 H 05/26/21 17:15: Lactic Acid 2.4 H* 05/26/21 17:34: PT 16.5 H, INR 1.4, APTT 35.5 05/26/21 18:30: Urine Color Yellow, Urine Clarity Sl. Cloudy, Urine pH 6.0, Ur Specific [place] 1.025, Urine Protein 100 H, Urine Glucose (UA) Normal, Urine Ketones Negative, Urine Occult Blood 10 H, Urine Nitrite Negative, Urine Bilirubin Negative, Urine Urobilinogen Normal, Ur Leukocyte Esterase 500 H, Urine RBC 0-5 SEEN, Urine WBC 10-25 SEEN, Ur Squamous Epith Cells 0-5 SEEN, Urine Bacteria RARE, Urine Mucus 0 SEEN Charges/Coding Visit Charges Inpatient E&M: 34699 Init Hosp L3 Procedures Hospitalists Procedures: 14698 Advncd Care Plan 30 Min
[2021-05-26 21:18] LABS: Reflex Lactate? Y
[2021-05-26 22:21] LABS: Magnesium 2.2 mg/dL (1.6-2.6)
[2021-05-27] VITALS (42 sets, daily range): BP systolic 110–162; BP diastolic 55–102; PULSE 60–90; RESP 12–35; TEMP 24.4–37.7; O2SAT 93–100; BMI 43.1
[2021-05-27 00:10] LABS: Blood Gas Specimen Type VEN; VBG BASE EXCESS 2 mmol/L (-1.0-3.5); VBG Bicarbonate 27 mmol/L (22-26); VBG PO2 32 mmHg (25-40); VBG SO2 58 % (50-70); VBG TCO2 29 mmol/L (23-33); VBG pCO2 48.6 mmHg (41-51); VBG pH 7.36 (7.32-7.42)
[2021-05-27] MEDS: Ipratropium/Albuterol Sulfate 3 ML AMPUL.NEB INHALATION ×4 (01:01→19:45)
[2021-05-27 01:11] LABS: Troponin-I HS 31.1 pg/mL (3.0-53.7)
[2021-05-27 01:31] LABS: Bedside Glucose 155 mg/dL (70-110)
[2021-05-27] MEDS: Latanoprost 0.005% 1 Bottle 1 DRP OPHTHALMIC ×2 (01:33→22:01)
[2021-05-27 02:25] LABS: M R Staph aureus DNA By PCR Negative (Negative); Probe Check PASS; Specimen Processing Control PASS
[2021-05-27 03:11] LABS: Troponin-I HS 29.7 pg/mL (3.0-53.7)
[2021-05-27] MEDS: 0.9% Saline Lock 10 ML Syringe IV ×3 (04:03→11:14)
--- NOTE | 2021-05-27 04:24 | PCM.RX.CS ---
Consult Pharmacy has been consulted to manage selected antiobiotic: Vancomycin Type of Consult: New start Labs: Sodium 138 mmol/L (136-145) 05/26/21 16:50 Potassium 4.4 mmol/L (3.5-5.1) 05/26/21 16:50 Chloride 103 mmol/L (98-107) 05/26/21 16:50 Carbon Dioxide 28.0 mmol/L (21.0-32.0) 05/26/21 16:50 Anion Gap 7 (5-15) 05/26/21 16:50 BUN 21 mg/dL (7-18) H 05/26/21 16:50 Creatinine 1.36 mg/dL (0.55-1.02) H 05/26/21 16:50 Est GFR (MDRD) Af Amer 48 mL/min (>60) L 05/26/21 16:50 Est GFR (MDRD) Non-Af 40 mL/min (>60) L 05/26/21 16:50 BUN/Creatinine Ratio 15.4 RATIO (10-20) 05/26/21 16:50 Glucose 190 mg/dL (74-106) H 05/26/21 16:50 Microbiology: Microbiology 05/26/21 17:15 Blood Culture (Wb) - Anticubital Left Blood Culture - Preliminary 05/26/21 17:34 Blood Culture (Wb) - Right Wrist Blood Culture - Preliminary 05/27/21 00:55 Urine Catheter - Douglas Legionella Antigen - Final 05/27/21 00:55 Urine Catheter - Douglas Streptococcus pneumoniae Antigen (M - Final 05/26/21 17:25 Mucosa - Nose SARS-CoV-2 Antigen (Rapid) - Final Weight used for dosin.3 kg Estimated Creatinine Clearance: 39.5 Goal Trough: 15-20 mcg/mL Pharmacy Plan for Drug Dosing: Pharmacy Service will continue to monitor and adjust dosing as required. Medications Vancomycin HCl 1,500 mg/ (Sodium Chloride) 530 mls @ 250 mls/hr IV X1 ONE Stop: 05/27/21 06:07 Last Admin: 05/27/21 04:01 Dose: 250 mls/hr Documented by: Vancomycin HCl 1,500 mg/ (Sodium Chloride) 530 mls @ 250 mls/hr IV Q24H JEAN Follow-Up Labs: Trough Vancomycin Labs to be done on [date and time ordered]: 05/29 @ 0336
[2021-05-27 05:55] LABS: Absolute Lymphocyte Count 0.89 X10^3/uL (0.83-4.51); Absolute Neutrophil Count 29.1 X10^3/uL (2.0-7.7); Basophil# 0.07 X10^3/uL; Basophil% 0.2 % (0-1); Hematocrit 33.3 % (37-47); Hemoglobin 9.7 g/dL (12.0-15.0); Lymphocyte # 0.89 X10^3/ul (0.83-4.51); Lymphocyte % 2.8 % (19-41); Mean Corp Hgb Conc 29.1 g/dL (32-36); Mean Corpuscular Hgb 24.4 pg (27.0-32.0); Mean Corpuscular Volume 83.9 fL (81-99); Mean Platelet Vol. 12.1 fl (6.2-12.0); Monocyte# 1.25 X10^3/uL; Monocyte% 3.9 % (0-10); NRBC Flagged by Analyzer 0 % (0-5); Neutrophil # 29.07 X10^3/uL (2.7-7.7); Neutrophil % 91.4 % (47-70); POSITIVE COUNT YES; POSITIVE DIFFERENTIAL YES; Platelet Count 219 K/mm3 (150-450); RBC Distribution Width CV 16.1 % (11.6-14.6); RBC Distribution Width SD 49.8 fl (35.1-43.9); Red Blood Count 3.97 M/mm3 (4.2-5.4)
--- NOTE | 2021-05-27 05:55 | RAD_ITS ---
STUDY: X-RAY CHEST REASON FOR EXAM: Female, 75 years old. Moderate right pleural effusion TECHNIQUE: Single AP portable view of the chest. COMPARISON: 05/26/2021 FINDINGS: Left subclavian single lead pacemaker which is unchanged. Poor inspiration with some bibasilar atelectasis. There is no demonstrated pleural abnormality. There is moderate cardiac enlargement. Normal mediastinum and susan. Normal visualized pulmonary arteries. Normal visualized aortic arch and descending thoracic aorta. Normal visualized thoracic spine. Normal visualized ribs, clavicles, and shoulders. There is no demonstrated abnormality of the visualized soft tissue structures of the upper abdomen. RAD/Chest 1 View (Portable) IMPRESSION: Poor inspiration with some bibasilar atelectasis. Electronically Signed: Braxton Arredondo MD at 7:01 EDT Tel , Service support ,
[2021-05-27 05:59] LABS: Differential Indicated SCAN CRITERIA MET; White Blood Count 31.8 K/mm3 (4.4-11.0)
[2021-05-27 06:43] LABS: Anion Gap 8 (5-15); BUN 26 mg/dL (7-18); BUN/Creat Ratio 17.4 RATIO (10-20); Calcium,Total 8.4 mg/dL (8.5-10.1); Chloride 104 mmol/L (98-107); Cholesterol 87 mg/dL (200); Creatinine, Serum 1.49 mg/dL (0.55-1.02); EST Glomerular Filtration Rate 36 mL/min (>60); Est Glom Filt Rate - Afr Amer 44 mL/min (>60); Estimated Creatinine Clearance 23.86 ml/min; Glucose 180 mg/dL (74-106); High Density Lipoprotein 46 mg/dL; Phosphorus 4.4 mg/dL (2.5-4.9); Potassium 4.4 mmol/L (3.5-5.1); Sodium Level 139 mmol/L (136-145); Thyroid Stim Hormone (TSH) 0.59 uIU/mL (0.358-3.74); Triglycerides 65 mg/dL; Troponin-I HS 28.7 pg/mL (3.0-53.7); Very Low Density Lipoprotein 13 mg/dL (5-40)
[2021-05-27 06:58] LABS: Differential Comment SCANNED
--- NOTE | 2021-05-27 07:01 | EX.PCM.CONCC ---
Assessment & Plan Assessment/Plan (1) Acute exacerbation of congestive heart failure: (2) Acute hypoxemic respiratory failure: (3) Sepsis: PLAN: RECOMMENDATIONS: 1. Obtain arterial blood gas. 2. Send urine for culture. 3. Continue broad-spectrum antimicrobials 4. Continue diuretic therapy as tolerated by hemodynamics and renal function 5. Continue Xarelto. 6. Hold all sedating medications. 7. Wean from BiPAP therapy as tolerated. Goal to maintain oxygen saturations at or above 90%. IMPRESSIONS: 1. Sepsis due to gram-positive bacteremia with acute sepsis related organ dysfunction as evidenced by acute respiratory failure and altered mentation The patient presented to the hospital with altered mentation and acute respiratory failure in the setting of gram-positive bacteremia. Urine and pulmonary sources of infection are possibilities. Cultures are currently pending. The patient remains hemodynamically stable. She will be continued on appropriate broad-spectrum antimicrobials, pending finalized culture results. 2. Acute hypoxemic respiratory failure Likely multifactorial in etiology. There is a possibility for an underlying pulmonary infectious etiology coupled with decompensated heart failure. The patient will be continued on noninvasive positive pressure ventilatory support and FiO2 will be weaned to maintain saturations at or above 90%. Arterial blood gas will be obtained this morning. Plan to continue diuretic therapy as tolerated by hemodynamics and renal function. 3. Encephalopathy Likely metabolic in etiology and related to #1. CT head was unremarkable. Continue current supportive measures. Obtain arterial blood gas as noted above. Avoid sedating medications. 4. History of coronary artery disease/aortic stenosis/chronic kidney disease/advanced age/morbid obesity/paroxysmal atrial fibrillation Complicates care, management, recovery and prognosis. Continue home medications as indicated. This note was generated with [employer] software. It may contain incorrect words, spelling, and punctuation that were not noted in checking the note before signing. HPI Consult Data Date of Consult: 05/27/21 HPI Narrative Reason for Consultation: Acute hypoxemic respiratory failure HPI Narrative: The patient is a 75-year-old female, with a history as outlined below, who presented to the emergency department on May 26 via EMS with altered mentation, shortness of breath and hypoxemia. The patient was recently admitted to the hospital April 05- with acute respiratory failure secondary to acute on chronic diastolic CHF. She does have a known history of coronary artery disease status post angioplasty and stenting in 2004 and 2010. In 2017, she had a pacemaker placed. She does have a history of aortic stenosis as well. She is followed by Dr. Forman in the cardiology clinic. On presentation to the emergency department, the patient was noted to be afebrile and hemodynamically stable. She was, however, tachypneic and hypoxemic. Initial laboratory evaluation revealed an elevated white blood cell count to 30,000. Coagulation profile revealed an INR of 1.4. Chemistry profile was notable for a creatinine of 1.36. Lactate was elevated to 2.4. BNP was increased to 329. Head CT revealed no acute intracranial abnormality. CT chest demonstrated peribronchial thickening and scattered groundglass opacities. Bilateral pleural effusions were noted. Rapid coronavirus antigen testing was negative. Preliminary blood cultures obtained in the ED were positive for gram-positive cocci. Strep and urine Legionella antigens were negative. Respiratory viral panel was negative. The patient was initially placed on broad-spectrum antimicrobials and diuretic therapy. She was admitted to the medical intensive care unit for further management. The patient has been maintained on BiPAP therapy overnight with an FiO2 requirement this morning noted to be 30%. [facility] Medical History Alzheimer disease Angina pectoris Anxiety Atherosclerosis of coronary artery without angina pectoris Bone cancer Bundle branch block CAD (coronary artery disease) Cholelithiasis Chronic back pain Chronic diastolic (congestive) heart failure Chronic pain CKD (chronic kidney disease) stage 3, GFR 30-59 ml/min Congestive heart failure (CHF) Depression Diabetes Dysphagia Essential (primary) hypertension GERD (gastroesophageal reflux disease) Goiter History of urinary incontinence Hyperlipidemia Hypothyroidism Kidney disease Longstanding persistent atrial fibrillation Metabolic encephalopathy Moderate aortic stenosis Morbid obesity 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 Nonrheumatic aortic (valve) stenosis Osteoarthritis Osteoarthritis PVD (peripheral vascular disease) Right bundle branch block (RBBB) Seizures Sick sinus syndrome Sleep apnea Type II diabetes mellitus Home Medications metoprolol succinate 50 mg PO DAILY 10/11/17 [History Last Taken 05/18/20] prasugrel 10 mg PO DAILY 06/04/18 [History Last Taken 05/18/20] duloxetine 30 mg PO DAILY 11/18/18 [History Last Taken 05/18/20] isosorbide mononitrate 90 mg PO DAILY 02/29/20 [History Last Taken 05/18/20] furosemide 20 mg tablet 20 mg PO BID tab 04/19/20 [History Last Taken 05/18/20] levetiracetam 500 mg tablet 500 mg PO BID tab 04/19/20 [History Last Taken 05/18/20] omeprazole 20 mg PO DAILY 05/18/20 [History Last Taken 05/18/20] acetaminophen 650 mg PO Q6H PRN PRN tab 05/22/20 [Rx Last Taken Unknown] fluticasone propionate 2 spray NARES BID 12/13/20 [History Last Taken Unknown] nitroglycerin 0.4 mg SUBLINGUAL PRN PRN 12/13/20 [History Last Taken Unknown] atorvastatin 20 mg tablet 20 mg PO QHS 01/05/21 [History Last Taken Unknown] bisacodyl 10 mg rectal suppository 10 mg RC Q8 PRN 01/05/21 [History Last Taken Unknown] insulin lispro 100 unit/mL subcutaneous pen 15 unit SC TIDCM ml 01/05/21 [History Last Taken Unknown] latanoprost 0.005 % eye drops 1 drp EACH EYE QHS 01/05/21 [History Last Taken Unknown] sennosides 8.6 mg capsule 8.6 mg PO BID 01/05/21 [History Last Taken Unknown] amlodipine 5 mg PO DAILY tablet 01/23/21 [Rx Last Taken Unknown] bisacodyl [Dulcolax (bisacodyl)] 5 mg PO BID PRN 04/02/21 [History Last Taken Unknown] magnesium hydroxide [Milk of Magnesia] 400 mg PO DAILY PRN 04/02/21 [History Last Taken Unknown] polyethylene glycol 3350 [Miralax] 17 g PO DAILY PRN 04/02/21 [History Last Taken Unknown] insulin glargine [Lantus Solostar U-100 Insulin] 35 units SUBCUT BID #1 ml 04/09/21 [Rx Last Taken Unknown] rivaroxaban [Xarelto] 15 mg PO DINNER #1 tab 04/09/21 [Rx Last Taken Unknown] cetirizine [Zyrtec] 10 mg PO DAILY 05/26/21 [History Last Taken Unknown] donepezil [Aricept] 10 mg PO DAILY 05/26/21 [History Last Taken Unknown] levothyroxine [Synthroid] 50 mcg PO DAILY 05/26/21 [History Last Taken Unknown] memantine 10 mg PO BID 05/26/21 [History Last Taken Unknown] potassium chloride 20 meq PO MOWEFR 05/26/21 [History Last Taken Unknown] trazodone 50 mg PO QHS 05/26/21 [History Last Taken Unknown] Allergy/AdvReac Type Severity Reaction Status Date / Time atorvastatin calcium Allergy dont Verified 05/26/21 17:05 [From Lipitor] remember codeine Allergy Rash Verified 05/26/21 17:05 iodine Allergy Rash Verified 05/26/21 17:05 Latex, Natural Rubber Allergy Rash Verified 05/26/21 17:05 lovastatin Allergy Rash Verified 05/26/21 17:05 rosuvastatin calcium Allergy rash\ Verified 05/26/21 17:05 [From Crestor] tositumomab Allergy PT UNSURE Verified 05/26/21 17:05 OF REACTION naproxen [From Naprosyn] AdvReac Upset Verified 05/26/21 17:05 Stomach pregabalin [From Lyrica] AdvReac Upset Verified 05/26/21 17:05 Stomach Sulfa (Sulfonamide AdvReac Upset Verified 05/26/21 17:05 Antibiotics) Stomach Family History Other Cancer Surgical History History of coronary artery stent placement (01/25/11) History of hysterectomy History of left heart catheterization (04/04/21) History of loop recorder (2013) History of permanent cardiac pacemaker placement (03/05/17) History of thyroidectomy Social History household members: none housing: jail Smoking Status: Former smoker details: Not presently substance use type: does not use ROS Review of Systems ROS Unobtainable: due to encephalopathy and due to mental status Physical Exam Const General Appearance: lethargic and on BiPAP Exam Limitations: altered mental status Nutritional Appearance: morbidly obese HEENT normocephalic and head/scalp atraumatic Eyes PERRL and EOMs intact bilaterally Neck supple General: trachea midline Resp Effort and Inspection: tachypneic Auscultation: diminished lung sounds; Negative for rales, rhonchi or wheezes Cardio regular rate and regular rhythm Heart Sounds: murmur GI normal to inspection, nondistended, normoactive bowel sounds Extremity General Extremity: edema bilateral lower extremity Skin Skin Narrative: Mild pretibial erythema Neuro Neuro Narrative: The patient is lethargic without focal neurological deficit. Psych Mood & Affect: flat affect Lab / Micro Data Result Diagrams: 05/27/21 05:40 05/27/21 05:40 Labs: Laboratory Results - last 24 hr 05/26/21 16:50: WBC 29.8 H, RBC 4.84, Hgb 11.7 L, Hct 40.8, MCV 84.3, MCH 24.2 L, MCHC 28.7 L, RDW Std Deviation 47.8 H, RDW Coeff of Candace 15.7 H, Plt Count 301, MPV 11.7, Immature Gran % (Auto) 1.000 H, Neut % (Auto) 88.1 H, Lymph % (Auto) 4.7 L, [place] % (Auto) 5.6, Eos % (Auto) 0.3, Baso % (Auto) 0.3, Absolute Neuts (auto) 26.3 H, Absolute Lymphs (auto) 1.41, Nucleated RBC % 0.1, Differential Comment SCANNED, Diff Path Review February foll 05/26/21 16:50: PT Cancelled, INR Cancelled, APTT Cancelled 05/26/21 16:50: Sodium 138, Potassium 4.4, Chloride 103, Carbon Dioxide 28.0, Anion Gap 7, BUN 21 H, Creatinine 1.36 H, Estim Creat Clear Calc 27.40, Est GFR (MDRD) Af Amer 48 L, Est GFR (MDRD) Non-Af 40 L, BUN/Creatinine Ratio 15.4, Glucose 190 H, Calcium 8.9, Total Bilirubin 0.90, AST 26, ALT 22, Alkaline Phosphatase 124 H, Troponin I High Sens 15.9, Total Protein 8.5 H, Albumin 3.5, Globulin 5.0 H, Albumin/Globulin Ratio 0.7 L 05/26/21 16:50: B-Natriuretic Peptide 329.5 H 05/26/21 16:50: Magnesium 2.2 05/26/21 17:15: Lactic Acid 2.4 H* 05/26/21 17:34: PT 16.5 H, INR 1.4, APTT 35.5 05/26/21 18:30: Urine Color Yellow, Urine Clarity Sl. Cloudy, Urine pH 6.0, Ur Specific [place] 1.025, Urine Protein 100 H, Urine Glucose (UA) Normal, Urine Ketones Negative, Urine Occult Blood 10 H, Urine Nitrite Negative, Urine Bilirubin Negative, Urine Urobilinogen Normal, Ur Leukocyte Esterase 500 H, Urine RBC 0-5 SEEN, Urine WBC 10-25 SEEN, Ur Squamous Epith Cells 0-5 SEEN, Urine Bacteria RARE, Urine Mucus 0 SEEN 05/27/21 00:29: Troponin I High Sens 31.1 05/27/21 00:31: MRSA (PCR) Negative 05/27/21 01:25: POC Glucose 155 H 05/27/21 02:25: Troponin I High Sens 29.7 05/27/21 05:40: WBC 31.8 H*, RBC 3.97 L, Hgb 9.7 L, Hct 33.3 L, MCV 83.9, MCH 24.4 L, MCHC 29.1 L, RDW Std Deviation 49.8 H, RDW Coeff of Candace 16.1 H, Plt Count 219, MPV 12.1 H, Immature Gran % (Auto) 1.700 H, Neut % (Auto) 91.4 H, Lymph % (Auto) 2.8 L, [place] % (Auto) 3.9, Eos % (Auto) 0.0, Baso % (Auto) 0.2, Absolute Neuts (auto) 29.1 H, Absolute Lymphs (auto) 0.89, Nucleated RBC % 0, Differential Comment SCANNED, Diff Path Review February foll 05/27/21 05:40: Sodium 139, Potassium 4.4, Chloride 104, Carbon Dioxide 27.0, Anion Gap 8, BUN 26 H, Creatinine 1.49 H, Estim Creat Clear Calc 23.86, Est GFR (MDRD) Af Amer 44 L, Est GFR (MDRD) Non-Af 36 L, BUN/Creatinine Ratio 17.4, Glucose 180 H, Calcium 8.4 L, Phosphorus 4.4, Troponin I High Sens 28.7, Triglycerides 65, Cholesterol 87, LDL Cholesterol 28, VLDL Cholesterol 13, HDL Cholesterol 46, TSH 0.59 Micro: Microbiology 05/26/21 17:34 Blood Culture (Wb) - Right Wrist Blood Culture - Preliminary 05/27/21 01:00 Mucosa - Nasopharyngeal Respiratory Panel (PCR) - Final 05/26/21 17:15 Blood Culture (Wb) - Anticubital Left Blood Culture - Preliminary 05/27/21 00:55 Urine Catheter - Douglas Legionella Antigen - Final 05/27/21 00:55 Urine Catheter - Douglas Streptococcus pneumoniae Antigen (M - Final 05/26/21 17:25 Mucosa - Nose SARS-CoV-2 Antigen (Rapid) - Final ABG Data ABG results: ABG 05/27/21 00:05 Specimen Type ANUJ VBG pH 7.36 VBG pO2 32 VBG HCO3 27 H VBG Total CO2 29 VBG O2 Sat (Calc) 58 VBG Base Excess 2 POC Mix VBG pCO2 Pt Tmp 48.6 Clinical Comments bipap 18 Radiology Impression Chest X-Ray 05/26/21 17:30 IMPRESSION: 1. Mildly increased right pleural effusion. 2. Vascular congestion suggesting fluid overload. Electronically Signed: Naseem Swanson MD ([place]) at 17:47 EDT , Service support , Brain CT 05/26/21 18:56 IMPRESSION: No acute intracranial hemorrhage or mass effect. Electronically Signed: Naseem Swanson MD ([facility]) at 19:38 EDT , Service support , Chest CT 05/26/21 18:56 IMPRESSION: 1. CHF with interstitial edema and right larger than left pleural effusions. 2. Lower more than upper lobe atelectasis. Electronically Signed: Naseem Swanson MD ([place]) at 19:41 EDT , Service support , Charges/Coding Visit Charges Inpatient E&M: 87635 Init Hosp L3
--- NOTE | 2021-05-27 07:19 | PCM.PN.HOSP ---
Subjective Subjective Patient is a 75-year-old lady resident is an extended care facility with multiple comorbidities admitted with progressive shortness of breath, decreased level of sensorium. An assessment of acute hypoxic respiratory failure secondary to combination of CHF and pneumonia with suspected gram-negative organisms made admitted to the intensive care unit for further management Objective Data Objective Data Vital Signs: Vital Signs Temp Pulse Resp BP Pulse Ox 97.8 F 80 20 H 139/78 H 95 05/27/21 04:00 05/27/21 07:00 05/27/21 07:00 05/27/21 07:00 05/27/21 07:00 Oxygen Delivery Method Bi-pap Weight: 106.3 kg Body Mass Index (BMI) 43.1 Intake & Output: Intake and Output for Last 24 Hours 05/25/21 05/26/21 05/27/21 23:59 23:59 23:59 Intake Total 305 / 305 580 / 580 Output Total 410 / 410 Balance 305 / 305 170 / 170 Lab / Micro Data Result Diagrams: 05/27/21 05:40 05/27/21 05:40 Labs: Laboratory Results - last 24 hr 05/26/21 16:50: WBC 29.8 H, RBC 4.84, Hgb 11.7 L, Hct 40.8, MCV 84.3, MCH 24.2 L, MCHC 28.7 L, RDW Std Deviation 47.8 H, RDW Coeff of [place]ace 15.7 H, Plt Count 301, MPV 11.7, Immature Gran % (Auto) 1.000 H, Neut % (Auto) 88.1 H, Lymph % (Auto) 4.7 L, [place] % (Auto) 5.6, Eos % (Auto) 0.3, Baso % (Auto) 0.3, Absolute Neuts (auto) 26.3 H, Absolute Lymphs (auto) 1.41, Nucleated RBC % 0.1, Differential Comment SCANNED, Diff Path Review February05/26/21 16:50: PT Cancelled, INR Cancelled, APTT Cancelled 05/26/21 16:50: Sodium 138, Potassium 4.4, Chloride 103, Carbon Dioxide 28.0, Anion Gap 7, BUN 21 H, Creatinine 1.36 H, Estim Creat Clear Calc 27.40, Est GFR (MDRD) Af Amer 48 L, Est GFR (MDRD) Non-Af 40 L, BUN/Creatinine Ratio 15.4, Glucose 190 H, Calcium 8.9, Total Bilirubin 0.90, AST 26, ALT 22, Alkaline Phosphatase 124 H, Troponin I High Sens 15.9, Total Protein 8.5 H, Albumin 3.5, Globulin 5.0 H, Albumin/Globulin Ratio 0.7 L 05/26/21 16:50: B-Natriuretic Peptide 329.5 H 05/26/21 16:50: Magnesium 2.2 05/26/21 17:15: Lactic Acid 2.4 H* 05/26/21 17:34: PT 16.5 H, INR 1.4, APTT 35.5 05/26/21 18:30: Urine Color Yellow, Urine Clarity Sl. Cloudy, Urine pH 6.0, Ur Specific [place] 1.025, Urine Protein 100 H, Urine Glucose (UA) Normal, Urine Ketones Negative, Urine Occult Blood 10 H, Urine Nitrite Negative, Urine Bilirubin Negative, Urine Urobilinogen Normal, Ur Leukocyte Esterase 500 H, Urine RBC 0-5 SEEN, Urine WBC 10-25 SEEN, Ur Squamous Epith Cells 0-5 SEEN, Urine Bacteria RARE, Urine Mucus 0 SEEN 05/27/21 00:29: Troponin I High Sens 31.1 05/27/21 00:31: MRSA (PCR) Negative 05/27/21 01:25: POC Glucose 155 H 05/27/21 02:25: Troponin I High Sens 29.7 05/27/21 05:40: WBC 31.8 H*, RBC 3.97 L, Hgb 9.7 L, Hct 33.3 L, MCV 83.9, MCH 24.4 L, MCHC 29.1 L, RDW Std Deviation 49.8 H, RDW Coeff of [place]ace 16.1 H, Plt Count 219, MPV 12.1 H, Immature Gran % (Auto) 1.700 H, Neut % (Auto) 91.4 H, Lymph % (Auto) 2.8 L, [place] % (Auto) 3.9, Eos % (Auto) 0.0, Baso % (Auto) 0.2, Absolute Neuts (auto) 29.1 H, Absolute Lymphs (auto) 0.89, Nucleated RBC % 0, Differential Comment SCANNED, Diff Path Review February foll 05/27/21 05:40: Sodium 139, Potassium 4.4, Chloride 104, Carbon Dioxide 27.0, Anion Gap 8, BUN 26 H, Creatinine 1.49 H, Estim Creat Clear Calc 23.86, Est GFR (MDRD) Af Amer 44 L, Est GFR (MDRD) Non-Af 36 L, BUN/Creatinine Ratio 17.4, Glucose 180 H, Calcium 8.4 L, Phosphorus 4.4, Troponin I High Sens 28.7, Triglycerides 65, Cholesterol 87, LDL Cholesterol 28, VLDL Cholesterol 13, HDL Cholesterol 46, TSH 0.59 Micro: Microbiology 05/26/21 17:34 Blood Culture (Wb) - Right Wrist Blood Culture - Preliminary 05/27/21 01:00 Mucosa - Nasopharyngeal Respiratory Panel (PCR) - Final 05/26/21 17:15 Blood Culture (Wb) - Anticubital Left Blood Culture - Preliminary 05/27/21 00:55 Urine Catheter - [place] Legionella Antigen - Final 05/27/21 00:55 Urine Catheter - [place] Streptococcus pneumoniae Antigen (M - Final 05/26/21 17:25 Mucosa - Nose SARS-CoV-2 Antigen (Rapid) - Final ABG Data ABG results: ABG 05/27/21 00:05 Specimen Type ANUJ VBG pH 7.36 VBG pO2 32 VBG HCO3 27 H VBG Total CO2 29 VBG O2 Sat (Calc) 58 VBG Base Excess 2 POC Mix VBG pCO2 Pt Tmp 48.6 Clinical Comments bipap 18 Radiography Diagnostic Testing: Radiology Impression Chest X-Ray 05/26/21 17:30 IMPRESSION: 1. Mildly increased right pleural effusion. 2. Vascular congestion suggesting fluid overload. Electronically Signed: Naseem Swanson MD ([place]) at 17:47 EDT , Service support , Brain CT 05/26/21 18:56 IMPRESSION: No acute intracranial hemorrhage or mass effect. Electronically Signed: Naseem Swanson MD ([place]) at 19:38 EDT , Service support , Chest CT 05/26/21 18:56 IMPRESSION: 1. CHF with interstitial edema and right larger than left pleural effusions. 2. Lower more than upper lobe atelectasis. Electronically Signed: Naseem Swanson MD ([place]) at 19:41 EDT , Service support , Chest X-Ray 05/27/21 05:55 IMPRESSION: Poor inspiration with some bibasilar atelectasis. Electronically Signed: Braxton Arredondo MD at 7:01 EDT Tel , Service support , Physical Exam Narrative GENERAL: Lethargic but moans to sternal rub HEENT: Atraumatic; EYES; Anicteric, Normal Conjunctiva NECK; supple, normal thyroid, RESPIRATORY: Diminished to auscultation CARDIOVASCULAR: Regular S1 S2, GI: soft, normoactive bowel sounds, : No Renal angle tenderness; EXTREMITIES: edema, no clubbing, MUSCULOSKELETAL: no muscle waisting NEURO: Lethargic but moans to sternal rub SKIN: Areas of scabs on both upper and lower extremities Assessment & Plan Assessment/Plan (1) Acute hypoxemic respiratory failure: (2) Acute on chronic diastolic CHF (congestive heart failure): (3) Moderate aortic stenosis: PLAN: Patient is a 75-year-old lady resident is an extended care facility with multiple comorbidities admitted with progressive shortness of breath, decreased level of sensorium. An assessment of acute hypoxic respiratory failure secondary to combination of CHF and pneumonia with suspected gram-negative organisms made admitted to the intensive care unit for further management 1. Acute hypoxic respiratory failure ?Etiology multifactorial including CHF, bilateral pleural effusion and pneumonia with gram-negative organisms. Patient has been admitted to the intensive care unit with treatment of the underlying etiology. Was placed on noninvasive ventilation BiPAP. Consultation placed to pulmonary medicine 2. Severe sepsis ?Secondary to pneumonia with suspected gram-negative organisms. Severe sepsis is evidenced by elevated WBC count, increased lactic acid level and evidence of endorgan failure (respiratory failure). 3. Pneumonia with suspected gram-negative organisms ?Patient on broad-spectrum antibiotic therapy with Zosyn and vancomycin cultures sent 4. Congestive heart failure ?With preserved ejection fraction. Echo obtained in January 2021 demonstrated EF of 60% with severe concentric left ventricular stenosis. Patient was started on Lasix monitoring I's and O's, daily weight 5. Bilateral pleural effusion ?Secondary to congestive heart failure management as discussed above 6. Valvular heart disease ?Patient has an aortic valve area of 0.9 cm? 7. Acute kidney injury ?Superimposed on chronic kidney disease. This was felt to be secondary to cardiorenal syndrome from patient congestive heart failure management is through diuresis. Case discussed with Dr. Mobley with nephrology 8. Conduction system disorder ?Status post pacemaker placement 9. Diabetes mellitus type II -patient's oral hypoglycemics held. Placed on long acting insulin, Accu-Cheks a.c. and at bedtime and covered with sliding scale insulin 10. Dyslipidemia -Patient is on statin therapy, continued at home dose 11. Hypothyroidism - Patient is on levothyroxine home dose continued 12. GERD ?Per history 13. Paroxysmal A. fib ?Rate controlled on systemic anticoagulation with Xarelto 14. Coronary artery disease ?With previous PCI with stents. Patient is on recommended medications 15. Bilateral stasis dermatitis ?Consult placed wound care nurse 16. Obesity with BMI of 43.1 ?Plan is to director of group counseling program on weight reduction when patient level of sensorium improves 17. DVT prophylaxis ?On Xarelto Charges/Coding Visit Charges Inpatient E&M: 99645 Subs Hosp L3
[2021-05-27 08:41] LABS: Allen Test Positive; Base Excess 1 mmol/L (-2 to +2); Bicarbonate 26.3 mmol/L (22-26); Blood Gas Specimen Type ART; FI02 30; Mode BiLevel; O2 Delivery Device BiPAP; PEEP 12; PO2 39 mmHG (75-100); RR 12; SITE R Radial; SO2 72 % (95-99); Total Carbon Dioxide 28 mmol/L; pCO2 44.5 mmHg (35-45); pH 7.38 (7.35-7.45)
--- NOTE | 2021-05-27 09:16 | CPS ---
Critical values on ABG. Dr. Billy notified of critical values.
[2021-05-27 10:36] LABS: Bedside Glucose 180 mg/dL (70-110)
[2021-05-27] MEDS: Furosemide 40 MG/4 ML Vial 80 MG IV ×2 (11:14→18:31)
--- NOTE | 2021-05-27 11:20 | CON.PCM.RE_ITS ---
Assessment & Plan Assessment/Plan (1) GRIS (acute kidney injury): PLAN: I suspect that GRIS could be due to cardiorenal syndrome. The patient appears to be volume overloaded on exam. Other possibilities would be ATN from prolonged prerenal state such as cardiorenal syndrome. Low suspicion for obstructive GRIS, but I would still check ultrasound to be sure. I have low suspicion for other causes of GRIS at this time. I agree with continuing to treat the patient with diuretics to decongest volume overload. We will monitor renal function while the patient is being diuresed. Despite an increase in serum creatinine in the last 24 hours, there is no need to stop diuresis at this time. I will check urine indices including fractional excretion of urea and ultrasound of the kidney as mentioned above. Current medications are reviewed and are appropriately dosed for the current estimated creatinine clearance. (2) Chronic kidney disease, stage 3b: PLAN: Baseline serum creatinine is 1.2 to 1.3 mg/dL. I suspect that the patient has diabetic kidney disease. She has has a persistent glucosuria and proteinuria on prior urinalysis. We will quantify urine protein when she is back in steady state for renal function. (3) HTN (hypertension): PLAN: The patient is on amlodipine only for blood pressure control at this point. Diuresis will also help with BP. We will monitor blood pressure. (4) Anemia: PLAN: Hemoglobin is 9.7 today. It was 11.7 on presentation. Recheck hemoglobin again tomorrow. I have low suspicion that anemia is secondary to chronic kidney disease at this point. If there is further decline in hemoglobin, I would work-up for other causes of anemia. (5) Acute hypoxemic respiratory failure: PLAN: The patient is being treated for both congestive heart failure and possible lower respiratory tract infection. She is getting Lasix and Diuril today. I agree with this. I will continue to monitor renal function while she is being diuresed. The patient is also being treated for pneumonia with Zosyn and vancomycin (she has increased risk for HAP since she is from [facility]). 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 HPI Consult Data Date of Consult: 05/27/21 HPI Narrative Reason for Consultation: GRIS HPI Narrative: The patient is a 75-year-old woman with past history significant for type 2 diabetes mellitus, coronary artery disease, heart failure with reduced ejection fraction, moderate aortic stenosis, peripheral arterial disease, sick sinus syndrome status post pacer maker placement, paroxysmal atrial fibrillation, dementia, and chronic kidney disease. The patient presented from group home facility on 05/26/2021 with confusion, dyspnea and hypoxemia. The patient is currently being treated with NIV, so direct history on the patient is limited. She denies current chest pain or increasing shortness of breath. On review of record, it appears that her baseline serum creatinine has been between 1.2 to 1.3 mg/dL. The patient presented with serum creatinine of 1.36 mg/dL on 05/26/2021. Serum creatinine is 1.49 mg/dL today. [facility] Medical History Alzheimer disease Angina pectoris Anxiety Atherosclerosis of coronary artery without angina pectoris Bone cancer Bundle branch block CAD (coronary artery disease) Cholelithiasis Chronic back pain Chronic diastolic (congestive) heart failure Chronic pain CKD (chronic kidney disease) stage 3, GFR 30-59 ml/min Congestive heart failure (CHF) Depression Diabetes Dysphagia Essential (primary) hypertension GERD (gastroesophageal reflux disease) Goiter History of urinary incontinence Hyperlipidemia Hypothyroidism Kidney disease Longstanding persistent atrial fibrillation Metabolic encephalopathy Moderate aortic stenosis Morbid obesity 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 Nonrheumatic aortic (valve) stenosis Osteoarthritis Osteoarthritis PVD (peripheral vascular disease) Right bundle branch block (RBBB) Seizures Sick sinus syndrome Sleep apnea Type II diabetes mellitus Home Medications metoprolol succinate 50 mg PO DAILY 10/11/17 [History Last Taken 05/18/20] prasugrel 10 mg PO DAILY 06/04/18 [History Last Taken 05/18/20] duloxetine 30 mg PO DAILY 11/18/18 [History Last Taken 05/18/20] isosorbide mononitrate 90 mg PO DAILY 02/29/20 [History Last Taken 05/18/20] furosemide 20 mg tablet 20 mg PO BID tab 04/19/20 [History Last Taken 05/18/20] levetiracetam 500 mg tablet 500 mg PO BID tab 04/19/20 [History Last Taken 05/18/20] omeprazole 20 mg PO DAILY 05/18/20 [History Last Taken 05/18/20] acetaminophen 650 mg PO Q6H PRN PRN tab 05/22/20 [Rx Last Taken Unknown] fluticasone propionate 2 spray NARES BID 12/13/20 [History Last Taken Unknown] nitroglycerin 0.4 mg SUBLINGUAL PRN PRN 12/13/20 [History Last Taken Unknown] atorvastatin 20 mg tablet 20 mg PO QHS 01/05/21 [History Last Taken Unknown] bisacodyl 10 mg rectal suppository 10 mg RC Q8 PRN 01/05/21 [History Last Taken Unknown] insulin lispro 100 unit/mL subcutaneous pen 15 unit SC TIDCM ml 01/05/21 [History Last Taken Unknown] latanoprost 0.005 % eye drops 1 drp EACH EYE QHS 01/05/21 [History Last Taken Unknown] sennosides 8.6 mg capsule 8.6 mg PO BID 01/05/21 [History Last Taken Unknown] amlodipine 5 mg PO DAILY tablet 01/23/21 [Rx Last Taken Unknown] bisacodyl [Dulcolax (bisacodyl)] 5 mg PO BID PRN 04/02/21 [History Last Taken Unknown] magnesium hydroxide [Milk of Magnesia] 400 mg PO DAILY PRN 04/02/21 [History Last Taken Unknown] polyethylene glycol 3350 [Miralax] 17 g PO DAILY PRN 04/02/21 [History Last Devin en Unknown] insulin glargine [Lantus Solostar U-100 Insulin] 35 units SUBCUT BID #1 ml 04/09/21 [Rx Last Taken Unknown] rivaroxaban [Xarelto] 15 mg PO DINNER #1 tab 04/09/21 [Rx Last Taken Unknown] cetirizine [Zyrtec] 10 mg PO DAILY 05/26/21 [History Last Taken Unknown] donepezil [Aricept] 10 mg PO DAILY 05/26/21 [History Last Taken Unknown] levothyroxine [Synthroid] 50 mcg PO DAILY 05/26/21 [History Last Taken Unknown] memantine 10 mg PO BID 05/26/21 [History Last Taken Unknown] potassium chloride 20 meq PO MOWEFR 05/26/21 [History Last Taken Unknown] trazodone 50 mg PO QHS 05/26/21 [History Last Taken Unknown] Allergy/AdvReac Type Severity Reaction Status Date / Time atorvastatin calcium Allergy dont Verified 05/26/21 17:05 [From Lipitor] remember codeine Allergy Rash Verified 05/26/21 17:05 iodine Allergy Rash Verified 05/26/21 17:05 Latex, Natural Rubber Allergy Rash Verified 05/26/21 17:05 lovastatin Allergy Rash Verified 05/26/21 17:05 rosuvastatin calcium Allergy rash\ Verified 05/26/21 17:05 [From Crestor] tositumomab Allergy PT UNSURE Verified 05/26/21 17:05 OF REACTION naproxen [From Naprosyn] AdvReac Upset Verified 05/26/21 17:05 Stomach pregabalin [From Lyrica] AdvReac Upset Verified 05/26/21 17:05 Stomach Sulfa (Sulfonamide AdvReac Upset Verified 05/26/21 17:05 Antibiotics) Stomach Family History Other Cancer Surgical History History of coronary artery stent placement (01/25/11) History of hysterectomy History of left heart catheterization (04/04/21) History of loop recorder (2013) History of permanent cardiac pacemaker placement (03/05/17) History of thyroidectomy Social History household members: none housing: residential Smoking Status: Former smoker details: Not presently substance use type: does not use ROS ROS Narrative Unable to obtain accurate review of system as the patient is on BiPAP and is unable to talk. Physical Exam Narrative General: Alert and follows simple commands. No apparent distress HEENT: Normocephalic, atraumatic. The patient is wearing a BiPAP mask. Mucous membranes moist. PERRLA. Neck: Supple, no visible JVD. Heart: Normal S1, S2. No rubs, murmurs or gallops. Lungs: Coarse breath sounds anteriorly. Abdomen: Normal bowel sound, soft, nontender, no guarding or rebound. Extremity: Full passive range of motion. There is 2+ nonpitting edema in the lower extremity bilaterally. There is erythema of the left lower extremity anteriorly as well. No pain on palpation. Neurological: No focal neurologic deficits. Skin: Erythema of the anterior portion of the left lower extremity. Otherwise, there is no rash. Skin is warm and dry. Lab / Micro Data Result Diagrams: 05/27/21 05:40 05/27/21 05:40 Labs: Laboratory Results - last 24 hr 05/26/21 16:50: WBC 29.8 H, RBC 4.84, Hgb 11.7 L, Hct 40.8, MCV 84.3, MCH 24.2 L , MCHC 28.7 L, RDW Std Deviation 47.8 H, RDW Coeff of Candace 15.7 H, Plt Count 301, MPV 11.7, Immature Gran % (Auto) 1.000 H, Neut % (Auto) 88.1 H, Lymph % (Auto) 4.7 L, Douglas % (Auto) 5.6, Eos % (Auto) 0.3, Baso % (Auto) 0.3, Absolute Neuts (auto) 26.3 H, Absolute Lymphs (auto) 1.41, Nucleated RBC % 0.1, Differential Comment SCANNED, Diff Path Review February foll 05/26/21 16:50: PT Cancelled, INR Cancelled, APTT Cancelled 05/26/21 16:50: Sodium 138, Potassium 4.4, Chloride 103, Carbon Dioxide 28.0, Anion Gap 7, BUN 21 H, Creatinine 1.36 H, Estim Creat Clear Calc 27.40, Est GFR (MDRD) Af Amer 48 L, Est GFR (MDRD) Non-Af 40 L, BUN/Creatinine Ratio 15.4, Glucose 190 H, Calcium 8.9, Total Bilirubin 0.90, AST 26, ALT 22, Alkaline Phosphatase 124 H, Troponin I High Sens 15.9, Total Protein 8.5 H, Albumin 3.5, Globulin 5.0 H, Albumin/Globulin Ratio 0.7 L 05/26/21 16:50: B-Natriuretic Peptide 329.5 H 05/26/21 16:50: Magnesium 2.2 05/26/21 17:15: Lactic Acid 2.4 H* 05/26/21 17:34: PT 16.5 H, INR 1.4, APTT 35.5 05/26/21 18:30: Urine Color Yellow, Urine Clarity Sl. Cloudy, Urine pH 6.0, Ur Specific [place] 1.025, Urine Protein 100 H, Urine Glucose (UA) Normal, Urine Ketones Negative, Urine Occult Blood 10 H, Urine Nitrite Negative, Urine Bilirubin Negative, Urine Urobilinogen Normal, Ur Leukocyte Esterase 500 H, Urine RBC 0-5 SEEN, Urine WBC 10-25 SEEN, Ur Squamous Epith Cells 0-5 SEEN, Urine Bacteria RARE, Urine Mucus 0 SEEN 05/27/21 00:29: Troponin I High Sens 31.1 05/27/21 00:31: MRSA (PCR) Negative 05/27/21 01:25: POC Glucose 155 H 05/27/21 02:25: Troponin I High Sens 29.7 05/27/21 05:40: WBC 31.8 H*, RBC 3.97 L, Hgb 9.7 L, Hct 33.3 L, MCV 83.9, MCH 24.4 L, MCHC 29.1 L, RDW Std Deviation 49.8 H, RDW Coeff of Candace 16.1 H, Plt Count 219, MPV 12.1 H, Immature Gran % (Auto) 1.700 H, Neut % (Auto) 91.4 H, Lymph % (Auto) 2.8 L, Douglas % (Auto) 3.9, Eos % (Auto) 0.0, Baso % (Auto) 0.2, Absolute Neuts (auto) 29.1 H, Absolute Lymphs (auto) 0.89, Nucleated RBC % 0, Differential Comment SCANNED, Diff Path Review February05/27/21 05:40: Sodium 139, Potassium 4.4, Chloride 104, Carbon Dioxide 27.0, Anion Gap 8, BUN 26 H, Creatinine 1.49 H, Estim Creat Clear Calc 23.86, Est GFR (MDRD) Af Amer 44 L, Est GFR (MDRD) Non-Af 36 L, BUN/Creatinine Ratio 17.4, Glucose 180 H, Calcium 8.4 L, Phosphorus 4.4, Troponin I High Sens 28.7, Triglycerides 65, Cholesterol 87, LDL Cholesterol 28, VLDL Cholesterol 13, HDL Cholesterol 46, TSH 0.59 05/27/21 10:27: POC Glucose 180 H Micro: Microbiology 05/26/21 17:34 Blood Culture (Wb) - Right Wrist Bacteria Detection (PCR) - Final Streptococcus agalactiae (B) 05/26/21 17:34 Blood Culture (Wb) - Right Wrist Blood Culture - Preliminary 05/27/21 01:00 Mucosa - Nasopharyngeal Respiratory Panel (PCR) - Final 05/26/21 17:15 Blood Culture (Wb) - Anticubital Left Blood Culture - Prel iminary 05/27/21 00:55 Urine Catheter - Douglas Legionella Antigen - Final 05/27/21 00:55 Urine Catheter - Douglas Streptococcus pneumoniae Antigen (M - Final 05/26/21 17:25 Mucosa - Nose SARS-CoV-2 Antigen (Rapid) - Final ABG Data ABG results: ABG 05/27/21 05/27/21 00:05 08:32 Specimen Type ANUJ ART Sample Site R Radial pH 7.38 Bicarbonate Actual 26.3 H Total CO2 28 Base Excess 1 O2 Saturation 72 L O2 % 30 ABG pCO2 44.5 ABG pO2 39 L* Vignesh Test Positive VBG pH 7.36 VBG pO2 32 VBG HCO3 27 H VBG Total CO2 29 VBG O2 Sat (Calc) 58 VBG Base Excess 2 POC Mix VBG pCO2 Pt Tmp 48.6 Respiration Rate 12 O2 Delivery Device BiPAP Vent Mode BiLevel POC PEEP 12 Crit Call To/Read Back Yes Clinical Comments bipap 18 29/09 12 30 Radiology Impression Chest X-Ray 05/26/21 17:30 IMPRESSION: 1. Mildly increased right pleural effusion. 2. Vascular congestion suggesting fluid overload. Electronically Signed: Naseem Swanson MD ([place]) at 17:47 EDT , Service support , Brain CT 05/26/21 18:56 IMPRESSION: No acute intracranial hemorrhage or mass effect. Electronically Signed: Naseem Swanson MD ([place]) at 19:38 EDT , Service support , Chest CT 05/26/21 18:56 IMPRESSION: 1. CHF with interstitial edema and right larger than left pleural effusions. 2. Lower more than upper lobe atelectasis. Electronically Signed: Naseem Swanson MD ([place]) at 19:41 EDT , Service support , Chest X-Ray 05/27/21 05:55 IMPRESSION: Poor inspiration with some bibasilar atelectasis. Electronically Signed: Braxton Arredondo MD at 7:01 EDT Tel , Service support ,
--- NOTE | 2021-05-27 13:11 | PCM.CONS.C ---
Assessment & Plan Assessment/Plan (1) Acute exacerbation of congestive heart failure: QUALIFIERS: Heart failure type: diastolic Qualified Code(s): I50.33 - Acute on chronic diastolic (congestive) heart failure PLAN: The patient appears to present with acute on chronic CHF: Heart failure with preserved ejection fraction At the present time she is in the ICU. She is requiring BiPAP support. She will continue to be monitored. She is continuing medical therapy which includes IV diuretic therapy. (2) CAD (coronary artery disease): QUALIFIERS: Coronary Disease-Associated Artery/Lesion type: solomon artery [place] vs. transplanted heart: solomon heart Associated angina: with unstable angina Qualified Code(s): I25.110 - Atherosclerotic heart disease of solomon coronary artery with unstable angina pectoris PLAN: The patient has a history of CAD. She has undergone repeat evaluation recently. She will continue medical therapy. (3) History of coronary artery stent placement: PLAN: The patient has history of previous PCI. Her repeat evaluation demonstrated her previous stents to be patent. She will continue medical therapy and follow-up. (4) Moderate aortic stenosis: PLAN: The patient has been evaluated noninvasively and invasively in the past. At the present time she was found to have evidence, based upon her most recent transthoracic echocardiogram, of moderate aortic valve stenosis. She will need to be followed for this. (5) Sick sinus syndrome: PLAN: The patient has a history of sick sinus syndrome and is status post permanent pacemaker placement. (6) History of permanent cardiac pacemaker placement: PLAN: The patient's pacemaker has been followed as an outpatient. It has been functioning appropriately. (7) Hyperlipidemia: QUALIFIERS: Hyperlipidemia type: unspecified Qualified Code(s): E78.5 - Hyperlipidemia, unspecified PLAN: The patient should continue risk factor evaluation care as she is able. (8) Essential (primary) hypertension: PLAN: The patient's blood pressure will need to be followed with adjustments as needed based upon her clinical condition, renal function, etc. Addt'l Comments This note was generated using a voice recognition system and there may be incorrect words, spelling or punctuation that were not noted when reviewing the office note prior to saving. HPI Consult Data Date of Consult: 05/27/21 HPI Narrative HPI Narrative: MILTON HERMOSILLO, is a 75 year old white female who presents for cardiovascular consultation based upon concerns of progressive shortness of breath/dyspnea and concerns of acute on chronic CHF with preserved ejection fraction superimposed upon history of underlying CAD, PCI, aortic valve stenosis, atrial fibrillation, and permanent pacemaker placement. She was recently evaluated at [facility] in March of this year for chest discomfort, jaw discomfort, and left upper extremity discomfort as well as shortness of breath and dyspnea on exertion. This was superimposed upon concerns of bilateral lower extremity peripheral pitting edema and blackout spells. She underwent noninvasive and subsequently invasive evaluation. The results of her studies are noted below. She did not require additional revascularization therapy. [facility] She was brought to [facility] based on concerns of progressive shortness of breath with notation of hypoxia and altered mental status. She subsequently required additional respiratory support with BiPAP therapy. She was placed in the ICU for further evaluation and care. Her cardiac enzymes have been negative. Her chest x-ray demonstrated a portable film with diminished inspiratory effort and findings compatible with increased pulmonary vascularity compatible CHF/pulmonary edema. The radiology report is as noted below. [facility] Medical History Alzheimer disease Angina pectoris Anxiety Atherosclerosis of coronary artery without angina pectoris Bone cancer Bundle branch block CAD (coronary artery disease) Cholelithiasis Chronic back pain Chronic diastolic (congestive) heart failure Chronic pain CKD (chronic kidney disease) stage 3, GFR 30-59 ml/min Congestive heart failure (CHF) Depression Diabetes Dysphagia Essential (primary) hypertension GERD (gastroesophageal reflux disease) Goiter History of urinary incontinence Hyperlipidemia Hypothyroidism Kidney disease Longstanding persistent atrial fibrillation Metabolic encephalopathy Moderate aortic stenosis Morbid obesity 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 Nonrheumatic aortic (valve) stenosis Osteoarthritis Osteoarthritis PVD (peripheral vascular disease) Right bundle branch block (RBBB) Seizures Sick sinus syndrome Sleep apnea Type II diabetes mellitus Home Medications metoprolol succinate 50 mg PO DAILY 10/11/17 [History Last Taken 05/18/20] prasugrel 10 mg PO DAILY 06/04/18 [History Last Taken 05/18/20] duloxetine 30 mg PO DAILY 11/18/18 [History Last Taken 05/18/20] isosorbide mononitrate 90 mg PO DAILY 02/29/20 [History Last Taken 05/18/20] furosemide 20 mg tablet 20 mg PO BID tab 04/19/20 [History Last Taken 05/18/20] levetiracetam 500 mg tablet 500 mg PO BID tab 04/19/20 [History Last Taken 05/18/20] omeprazole 20 mg PO DAILY 05/18/20 [History Last Taken 05/18/20] acetaminophen 650 mg PO Q6H PRN PRN tab 05/22/20 [Rx Last Taken Unknown] fluticasone propionate 2 spray NARES BID 12/13/20 [History Last Taken Unknown] nitroglycerin 0.4 mg SUBLINGUAL PRN PRN 12/13/20 [History Last Taken Unknown] atorvastatin 20 mg tablet 20 mg PO QHS 01/05/21 [History Last Taken Unknown] bisacodyl 10 mg rectal suppository 10 mg RC Q8 PRN 01/05/21 [History Last Taken Unknown] insulin lispro 100 unit/mL subcutaneous pen 15 unit SC TIDCM ml 01/05/21 [History Last Taken Unknown] latanoprost 0.005 % eye drops 1 drp EACH EYE QHS 01/05/21 [History Last Taken Unknown] sennosides 8.6 mg capsule 8.6 mg PO BID 01/05/21 [History Last Taken Unknown] amlodipine 5 mg PO DAILY tablet 01/23/21 [Rx Last Taken Unknown] bisacodyl [Dulcolax (bisacodyl)] 5 mg PO BID PRN 04/02/21 [History Last Taken Unknown] magnesium hydroxide [Milk of Magnesia] 400 mg PO DAILY PRN 04/02/21 [History Last Taken Unknown] polyethylene glycol 3350 [Miralax] 17 g PO DAILY PRN 04/02/21 [History Last Taken Unknown] insulin glargine [Lantus Solostar U-100 Insulin] 35 units SUBCUT BID #1 ml 04/09/21 [Rx Last Taken Unknown] rivaroxaban [Xarelto] 15 mg PO DINNER #1 tab 04/09/21 [Rx Last Taken Unknown] cetirizine [Zyrtec] 10 mg PO DAILY 05/26/21 [History Last Taken Unknown] donepezil [Aricept] 10 mg PO DAILY 05/26/21 [History Last Taken Unknown] levothyroxine [Synthroid] 50 mcg PO DAILY 05/26/21 [History Last Taken Unknown] memantine 10 mg PO BID 05/26/21 [History Last Taken Unknown] potassium chloride 20 meq PO MOWEFR 05/26/21 [History Last Taken Unknown] trazodone 50 mg PO QHS 05/26/21 [History Last Taken Unknown] Allergy/AdvReac Type Severity Reaction Status Date / Time atorvastatin calcium Allergy dont Verified 05/26/21 17:05 [From Lipitor] remember codeine Allergy Rash Verified 05/26/21 17:05 iodine Allergy Rash Verified 05/26/21 17:05 Latex, Natural Rubber Allergy Rash Verified 05/26/21 17:05 lovastatin Allergy Rash Verified 05/26/21 17:05 rosuvastatin calcium Allergy rash\ Verified 05/26/21 17:05 [From Crestor] tositumomab Allergy PT UNSURE Verified 05/26/21 17:05 OF REACTION naproxen [From Naprosyn] AdvReac Upset Verified 05/26/21 17:05 Stomach pregabalin [From Lyrica] AdvReac Upset Verified 05/26/21 17:05 Stomach Sulfa (Sulfonamide AdvReac Upset Verified 05/26/21 17:05 Antibiotics) Stomach Family History Other Cancer Surgical History History of coronary artery stent placement (01/25/11) History of hysterectomy History of left heart catheterization (04/04/21) History of loop recorder (2013) History of permanent cardiac pacemaker placement (03/05/17) History of thyroidectomy Social History household members: none housing: shelter Smoking Status: Former smoker details: Not presently substance use type: does not use Physical Exam Const General Appearance: lethargic HEENT normocephalic and head/scalp atraumatic Eyes PERRL, EOMs intact bilaterally and conjunctivae normal Neck supple Resp Auscultation: diminished lung sounds diffuse Cardio regular rate, regular rhythm, S1 normal heart sound and S2 normal heart sound GI normal to inspection, nondistended, normoactive bowel sounds Extremity General Extremity: edema bilateral lower extremity Procedure Criteria Type of Procedure Procedure Type: Elective Elective Risks - COVID COVID Risk Discussion: The surgeon/proceduralist and patient have discussed in detail the risk of exposure to and/or potential harm posed by the COVID-19 virus with having a surgery/procedure at this time versus the risk of delaying the surgery/procedure. It is not possible to know either the risk of delaying the surgery or procedure or chance of getting an infection with perfect accuracy, but a joint decision was made between the patient and the surgeon/proceduralist to proceed at this time with the scheduled surgery/procedure as indicated on the consent form. Objective Data Vital Signs: Vital Signs Temp Pulse Resp BP Pulse Ox 97.8 F 75 16 157/78 H 94 05/27/21 12:00 05/27/21 13:05 05/27/21 13:05 05/27/21 12:59 05/27/21 13:05 Oxygen Delivery Method Bi-pap Weight: 234 lb 5.622 oz Body Mass Index (BMI) 43.1 Intake & Output: Intake and Output for Last 24 Hours 05/25/21 05/26/21 05/27/21 23:59 23:59 23:59 Intake Total 305 / 305 630 / 630 Output Total 660 / 660 Balance 305 / 305 -30 / -30 Lab / Micro Data Result Diagrams: 05/27/21 05:40 05/27/21 05:40 Labs: Laboratory Results - last 24 hr 05/26/21 16:50: WBC 29.8 H, RBC 4.84, Hgb 11.7 L, Hct 40.8, MCV 84.3, MCH 24.2 L, MCHC 28.7 L, RDW Std Deviation 47.8 H, RDW Coeff of Candace 15.7 H, Plt Count 301, MPV 11.7, Immature Gran % (Auto) 1.000 H, Neut % (Auto) 88.1 H, Lymph % (Auto) 4.7 L, [place] % (Auto) 5.6, Eos % (Auto) 0.3, Baso % (Auto) 0.3, Absolute Neuts (auto) 26.3 H, Absolute Lymphs (auto) 1.41, Nucleated RBC % 0.1, Differential Comment SCANNED, Diff Path Review February05/26/21 16:50: PT Cancelled, INR Cancelled, APTT Cancelled 05/26/21 16:50: Sodium 138, Potassium 4.4, Chloride 103, Carbon Dioxide 28.0, Anion Gap 7, BUN 21 H, Creatinine 1.36 H, Estim Creat Clear Calc 27.40, Est GFR (MDRD) Af Amer 48 L, Est GFR (MDRD) Non-Af 40 L, BUN/Creatinine Ratio 15.4, Glucose 190 H, Calcium 8.9, Total Bilirubin 0.90, AST 26, ALT 22, Alkaline Phosphatase 124 H, Troponin I High Sens 15.9, Total Protein 8.5 H, Albumin 3.5, Globulin 5.0 H, Albumin/Globulin Ratio 0.7 L 05/26/21 16:50: B-Natriuretic Peptide 329.5 H 05/26/21 16:50: Magnesium 2.2 05/26/21 17:15: Lactic Acid 2.4 H* 05/26/21 17:34: PT 16.5 H, INR 1.4, APTT 35.5 05/26/21 18:30: Urine Color Yellow, Urine Clarity Sl. Cloudy, Urine pH 6.0, Ur Specific [place] 1.025, Urine Protein 100 H, Urine Glucose (UA) Normal, Urine Ketones Negative, Urine Occult Blood 10 H, Urine Nitrite Negative, Urine Bilirubin Negative, Urine Urobilinogen Normal, Ur Leukocyte Esterase 500 H, Urine RBC 0-5 SEEN, Urine WBC 10-25 SEEN, Ur Squamous Epith Cells 0-5 SEEN, Urine Bacteria RARE, Urine Mucus 0 SEEN 05/27/21 00:29: Troponin I High Sens 31.1 05/27/21 00:31: MRSA (PCR) Negative 05/27/21 01:25: POC Glucose 155 H 05/27/21 02:25: Troponin I High Sens 29.7 05/27/21 05:40: WBC 31.8 H*, RBC 3.97 L, Hgb 9.7 L, Hct 33.3 L, MCV 83.9, MCH 24.4 L, MCHC 29.1 L, RDW Std Deviation 49.8 H, RDW Coeff of Candace 16.1 H, Plt Count 219, MPV 12.1 H, Immature Gran % (Auto) 1.700 H, Neut % (Auto) 91.4 H, Lymph % (Auto) 2.8 L, [place] % (Auto) 3.9, Eos % (Auto) 0.0, Baso % (Auto) 0.2, Absolute Neuts (auto) 29.1 H, Absolute Lymphs (auto) 0.89, Nucleated RBC % 0, Differential Comment SCANNED, Diff Path Review May foll 05/27/21 05:40: Sodium 139, Potassium 4.4, Chloride 104, Carbon Dioxide 27.0, Anion Gap 8, BUN 26 H, Creatinine 1.49 H, Estim Creat Clear Calc 23.86, Est GFR (MDRD) Af Amer 44 L, Est GFR (MDRD) Non-Af 36 L, BUN/Creatinine Ratio 17.4, Glucose 180 H, Calcium 8.4 L, Phosphorus 4.4, Troponin I High Sens 28.7, Triglycerides 65, Cholesterol 87, LDL Cholesterol 28, VLDL Cholesterol 13, HDL Cholesterol 46, TSH 0.59 05/27/21 10:27: POC Glucose 180 H Micro: Microbiology 05/26/21 17:34 Blood Culture (Wb) - Right Wrist Bacteria Detection (PCR) - Final Streptococcus agalactiae (B) 05/26/21 17:34 Blood Culture (Wb) - Right Wrist Blood Culture - Preliminary 05/27/21 01:00 Mucosa - Nasopharyngeal Respiratory Panel (PCR) - Final 05/26/21 17:15 Blood Culture (Wb) - Anticubital Left Blood Culture - Preliminary 05/27/21 00:55 Urine Catheter - Douglas Legionella Antigen - Final 05/27/21 00:55 Urine Catheter - [place] Streptococcus pneumoniae Antigen (M - Final 05/26/21 17:25 Mucosa - Nose SARS-CoV-2 Antigen (Rapid) - Final ABG Data ABG results: ABG 05/27/21 05/27/21 00:05 08:32 Specimen Type ANUJ ART Sample Site R Radial pH 7.38 Bicarbonate Actual 26.3 H Total CO2 28 Base Excess 1 O2 Saturation 72 L O2 % 30 ABG pCO2 44.5 ABG pO2 39 L* Vignesh Test Positive VBG pH 7.36 VBG pO2 32 VBG HCO3 27 H VBG Total CO2 29 VBG O2 Sat (Calc) 58 VBG Base Excess 2 POC Mix VBG pCO2 Pt Tmp 48.6 Respiration Rate 12 O2 Delivery Device BiPAP Vent Mode BiLevel POC PEEP 12 Crit Call To/Read Back Yes Clinical Comments bipap 18 18/12 12 30 Cardiology Labs/Tests 05/26/21 16:50: WBC 29.8 H, RBC 4.84, Hgb 11.7 L, Hct 40.8, MCV 84.3, MCH 24.2 L, MCHC 28.7 L, Plt Count 301, MPV 11.7, Immature Gran % (Auto) 1.000 H, Neut % (Auto) 88.1 H, Lymph % (Auto) 4.7 L, [place] % (Auto) 5.6, Eos % (Auto) 0.3, Baso % (Auto) 0.3, Absolute Neuts (auto) 26.3 H, Nucleated RBC % 0.1 05/26/21 16:50: PT Cancelled, INR Cancelled, APTT Cancelled 05/26/21 16:50: Sodium 138, Potassium 4.4, Chloride 103, Carbon Dioxide 28.0, Anion Gap 7, BUN 21 H, Creatinine 1.36 H, Est GFR (MDRD) Af Amer 48 L, Est GFR (MDRD) Non-Af 40 L, BUN/Creatinine Ratio 15.4, Glucose 190 H, Calcium 8.9, Total Bilirubin 0.90 05/26/21 16:50: B-Natriuretic Peptide 329.5 H 05/26/21 16:50: Magnesium 2.2 05/26/21 17:15: Lactic Acid 2.4 H* 05/26/21 17:34: PT 16.5 H, INR 1.4, APTT 35.5 05/26/21 18:30: Urine Color Yellow, Urine Clarity Sl. Cloudy, Urine pH 6.0, Ur Specific [place] 1.025, Urine Protein 100 H, Urine Glucose (UA) Normal, Urine Ketones Negative, Urine Occult Blood 10 H, Urine Nitrite Negative, Urine Bilirubin Negative, Urine Urobilinogen Normal, Ur Leukocyte Esterase 500 H, Urine RBC 0-5 SEEN, Urine WBC 10-25 SEEN 05/27/21 00:05: VBG pH 7.36, VBG pO2 32, VBG HCO3 27 H, VBG O2 Sat (Calc) 58, VBG Base Excess 2 05/27/21 05:40: WBC 31.8 H*, RBC 3.97 L, Hgb 9.7 L, Hct 33.3 L, MCV 83.9, MCH 24.4 L, MCHC 29.1 L, Plt Count 219, MPV 12.1 H, Immature Gran % (Auto) 1.700 H, Neut % (Auto) 91.4 H, Lymph % (Auto) 2.8 L, [place] % (Auto) 3.9, Eos % (Auto) 0.0, Baso % (Auto) 0.2, Absolute Neuts (auto) 29.1 H, Nucleated RBC % 0 05/27/21 05:40: Sodium 139, Potassium 4.4, Chloride 104, Carbon Dioxide 27.0, Anion Gap 8, BUN 26 H, Creatinine 1.49 H, Est GFR (MDRD) Af Amer 44 L, Est GFR (MDRD) Non-Af 36 L, BUN/Creatinine Ratio 17.4, Glucose 180 H, Calcium 8.4 L, Phosphorus 4.4, Triglycerides 65, Cholesterol 87, LDL Cholesterol 28, VLDL Cholesterol 13, HDL Cholesterol 46 05/27/21 08:32: pH 7.38, Bicarbonate Actual 26.3 H, Base Excess 1, O2 Saturation 72 L, ABG pCO2 44.5, ABG pO2 39 L*, Vignesh Test Positive Rhythm: Electronic ventricular paced rhythm EKG: Electronic ventricular paced ECHO: 01-11-2021 Interpretation Summary Normal LV size. Left ventricular systolic function is normal. The estimated ejection fraction is 60 %. Severe concentric left ventricular hypertrophy. ICD or pacer leads identified within the right ventricle. Moderate aortic stenosis. Calculated aortic valve area (continuity equation) is 0.9 cm2. Stress Test: Date: 04-03-2021 Procedure: Pharmacologic stress nuclear imaging study Indications: Chest pain; CAD; PCI; atrial fibrillation; permanent pacemaker Consent: Per the patient Procedure: The patient underwent pharmacologic (Regadenoson 0.4mg ) evaluation with a peak heart rate of 121 beats per minute (84%predicted maximal heart rate) and a peak blood pressure of 146/80 mmHg. The baseline ECG demonstrated atrial fibrillation; right bundle branch block pattern. The peak pharmacologic ECG demonstrated no obvious ECG changes. There were no cardiac dysrhythmias pretest, during pharmacologic infusion, or recovery. There was chest discomfort/left upper extremity discomfort pretest, during infusion, and recovery. The examination was discontinued secondary to completion of protocol. Impression: 1. Pharmacologic (Regadenoson) evaluation 2. Peak pharmacologic ECG with continued atrial fibrillation with a right bundle branch block pattern. 3. There were no cardiac dysrhythmias pretest, during pharmacologic infusion, or recovery. 4. Nuclear images pending Myocardial perfusion imaging study: Technique: The patient was injected with 15.0 millicuries of technetium 99m Cardiolite and subsequently rest SPECT Cardiolite nuclear imaging was obtained in the horizontal long, vertical long, and short axis views. The patient underwent pharmacologic (Regadenoson) evaluation with a peak heart rate of 121 beats per minute (84% percent predicted maximal heart rate) and a peak blood pressure of 146/80 mmHg. The patient was injected with 44.2 millicuries of technetium 99m Cardiolite and subsequently stress SPECT Cardiolite nuclear imaging was obtained in the horizontal long, vertical long, and short axis views. A gated Cardiolite study at peak stress was obtained. Interpretation: Rest and stress SPECT Cardiolite nuclear imaging status post realignment, normalization, and attenuation correction demonstrate the appearance of an area of diminished myocardial perfusion/tracer uptake in portions of the basal to mid lateral segments which status post stress appears to be more prominent especially in the mid lateral segments. There is end systolic thickening and brightening. The gated Cardiolite study demonstrates myocardial thickening and inward wall motion. The reported LVEF is 52%. Impression: 1. Rest and stress SPECT her nuclear imaging demonstrate myocardial perfusion changes in portions of the basal to mid lateral segments which appear to be more prominent following stress in the mid lateral segments potentially compatible with an area of previous myocardial injury with post-rest findings compatible with periinjury related myocardial ischemia. 2. The gated Cardiolite study reports an LVEF of 52%. Cardiac Cath: ?15?2010: [place], [place] Left main coronary artery: Reported as free of obstructive disease Left anterior descending coronary artery: Proximal to mid 30 to 35% stenosis; proximal stent patent LCx: Proximal 25 to 30% stenosis; inferior lateral marginal branch with bifurcating lesion approaching 80% with a smaller caliber subdivision having proximal 80% stenosis Right coronary artery: Diffuse 20 to 30% stenosis Left ventricle: Normal with an LVEF of 65% Cardiac catheterization: 04-05-2021 CONCLUSIONS Known coronary artery disease with previously placed stent in the left anterior descending artery noted to be patent in the proximal to mid region; the left circumflex artery also has a mid segment with a stent which is patent. The right coronary artery is dominant with mild luminal irregularities. Mild aortic root calcification is present. RECOMMENDATIONS Medical therapy DESCRIPTION OF PROCEDURE The patient arrived to the procedure lab. The risks and benefits of the procedure as well as a full description of our services here and current unavailability of surgical backup were fully explained to the patient and/or their significant other prior to the catheterization. The Timeout was completed, verifying the correct patient and procedure. The patient's procedural site was prepped and draped in the usual fashion. Local anesthetic was given subcutaneously to right radial region with Lidocaine 2%. Using a modified Seldinger technique, arterial access was obtained via the right radial artery, a 6Fr sheath was inserted. Left Coronary Artery selective angiography was performed in multiple views using a 5 Fr. 4.0 Weidman catheter. Right Coronary Artery selective angiography was then performed in multiple views using a 5 Fr. 3DRC (Bari) catheter. Left Ventriculography was performed in FITZGERALD projection using a 5 Fr. Pigtail catheter. LV to AO pullback pressures were then recorded.The arterial sheath was pulled and a TR Band was applied for hemostasis. Sheath flushed prior to removal. 12cc air inserted. CORONARY ANGIOGRAPHY DOMINANCE: Right Dominant LEFT HEART ASSESSMENT Left Ventricular Ejection Fraction: by LV Gram 70 % Normal LV wall motion Normal Left Ventricular systolic function LEFT MAIN: Mild calcification, No significant disease noted LEFT ANTERIOR DESCENDING ARTERY: Previously placed stent is patent, Mild luminal irregularities less than 30% CIRCUMFLEX ARTERY: Mild luminal irregularities less than 30% MID CIRC: Previously placed stent is patent RIGHT CORONARY ARTERY: Mild luminal irregularities less than 30% PCI: 01-25-2011: [place], [place] PCI/SITA to the inferolateral marginal branch and balloon angioplasty to recanalize a smaller caliber subdivision Radiography Diagnostic Testing: Radiology Impression Chest X-Ray 05/26/21 17:30 IMPRESSION: 1. Mildly increased right pleural effusion. 2. Vascular congestion suggesting fluid overload. Electronically Signed: Naseem Swanson MD ([place]) at 17:47 EDT , Service support , Brain CT 05/26/21 18:56 IMPRESSION: No acute intracranial hemorrhage or mass effect. Electronically Signed: Naseem Swanson MD ([place]) at 19:38 EDT , Service support , Chest CT 05/26/21 18:56 IMPRESSION: 1. CHF with interstitial edema and right larger than left pleural effusions. 2. Lower more than upper lobe atelectasis. Electronically Signed: Naseem Swanson MD ([place]) at 19:41 EDT , Service support , Chest X-Ray 05/27/21 05:55 IMPRESSION: Poor inspiration with some bibasilar atelectasis. Electronically Signed: Braxton Arredondo MD at 7:01 EDT Tel , Service support ,
[2021-05-27 13:21] LABS: Urea Nitrogen, Urine 292 mg/dL (NO RANGE EST.)
[2021-05-27] MEDS: Rivaroxaban 15 MG Tablet PO (17:04)
[2021-05-27] MEDS: Fluticasone 0.05% 1 SPRAY NASAL.SRY 2 SPRAY NASAL (21:58)
[2021-05-27] MEDS: levETIRAcetam 500 MG Tablet PO (22:00)
[2021-05-27] MEDS: Atorvastatin Calcium 20 MG Tablet PO (22:01)
[2021-05-27] MEDS: Insulin Lispro 100 UNIT/ML INSULN.PEN SC (22:08)
[2021-05-27 22:31] LABS: Bedside Glucose 200 mg/dL (70-110)
--- NOTE | 2021-05-27 23:55 | CPS ---
Pt refuses PAP at this time
[2021-05-28] VITALS (26 sets, daily range): BP systolic 96–152; BP diastolic 48–69; PULSE 76–113; RESP 16–24; TEMP 36–36.8; O2SAT 93–99
[2021-05-28] MEDS: Ipratropium/Albuterol Sulfate 3 ML AMPUL.NEB INHALATION ×4 (01:47→18:59)
[2021-05-28] MEDS: 0.9% Saline Lock 10 ML Syringe IV (04:28)
[2021-05-28 04:45] LABS: Absolute Lymphocyte Count 1.12 X10^3/uL (0.83-4.51); Absolute Neutrophil Count 15.1 X10^3/uL (2.0-7.7); Basophil# 0.06 X10^3/uL; Basophil% 0.3 % (0-1); Eosinophil# 0.12 X10^3/uL; Eosinophils% 0.7 % (0-5); Hematocrit 34.1 % (37-47); Hemoglobin 9.8 g/dL (12.0-15.0); Lymphocyte # 1.12 X10^3/ul (0.83-4.51); Lymphocyte % 6.3 % (19-41); Mean Corp Hgb Conc 28.7 g/dL (32-36); Mean Corpuscular Hgb 24.6 pg (27.0-32.0); Mean Corpuscular Volume 85.7 fL (81-99); Mean Platelet Vol. 12.1 fl (6.2-12.0); Monocyte# 1.25 X10^3/uL; NRBC Flagged by Analyzer 0 % (0-5); Neutrophil # 15.08 X10^3/uL (2.7-7.7); Neutrophil % 84.9 % (47-70); Platelet Count 204 K/mm3 (150-450); Red Blood Count 3.98 M/mm3 (4.2-5.4); White Blood Count 17.8 K/mm3 (4.4-11.0)
[2021-05-28 05:02] LABS: Albumin, Serum 2.5 g/dL (3.2-5.0); BUN 36 mg/dL (7-18); BUN/Creat Ratio 25.7 RATIO (10-20); Calcium,Total 8.3 mg/dL (8.5-10.1); Chloride 104 mmol/L (98-107); EST Glomerular Filtration Rate 39 mL/min (>60); Est Glom Filt Rate - Afr Amer 47 mL/min (>60); Estimated Creatinine Clearance 25.39 ml/min; Glucose 138 mg/dL (74-106); Magnesium 2.1 mg/dL (1.6-2.6); Phosphorus 4.1 mg/dL (2.5-4.9); Potassium 3.6 mmol/L (3.5-5.1); Sodium Level 141 mmol/L (136-145)
[2021-05-28] MEDS: Levothyroxine 50 MCG Tablet PO (06:34)
--- NOTE | 2021-05-28 07:47 | PCM.PN.CARD ---
Subjective Subjective The patient was seen and evaluated. Appears to be doing better. Objective Data Vital Signs: Vital Signs Temp Pulse Resp BP Pulse Ox 96.8 F L 80 21 H 107/48 L 98 05/28/21 00:00 05/28/21 01:49 05/28/21 01:49 05/28/21 01:00 05/28/21 01:00 Oxygen Flow Rate (L/min) 3 Oxygen Delivery Method Nasal Cannula Weight: 229 lb 4.492 oz Body Mass Index (BMI) 43.1 Intake & Output: Intake and Output for Last 24 Hours 05/26/21 05/27/21 05/28/21 23:59 23:59 23:59 Intake Total 305 / 305 860 / 860 50 / 50 Output Total 2910 / 2910 Balance 305 / 305 -2049 / -2049 50 / 50 Lab / Micro Data Result Diagrams: 05/28/21 04:30 05/28/21 04:30 Labs: Laboratory Results - last 24 hr 05/27/21 00:55: Urine Creatinine 172.00, Urine Urea Nitrogen 292 05/27/21 10:27: POC Glucose 180 H 05/27/21 21:59: POC Glucose 200 H 05/28/21 04:30: Sodium 141, Potassium 3.6, Chloride 104, Carbon Dioxide 30.0, BUN 36 H, Creatinine 1.40 H, Estim Creat Clear Calc 25.39, Est GFR (MDRD) Af Amer 47 L, Est GFR (MDRD) Non-Af 39 L, BUN/Creatinine Ratio 25.7 H, Glucose 138 H, Calcium 8.3 L, Phosphorus 4.1, Magnesium 2.1, Albumin 2.5 L 05/28/21 04:30: WBC 17.8 H, RBC 3.98 L, Hgb 9.8 L, Hct 34.1 L, MCV 85.7, MCH 24.6 L, MCHC 28.7 L, RDW Std Deviation 50.0 H, RDW Coeff of Candace 16.0 H, Plt Count 204, MPV 12.1 H, Immature Gran % (Auto) 0.800, Neut % (Auto) 84.9 H, Lymph % (Auto) 6.3 L, [place] % (Auto) 7.0, Eos % (Auto) 0.7, Baso % (Auto) 0.3, Absolute Neuts (auto) 15.1 H, Absolute Lymphs (auto) 1.12, Nucleated RBC % 0 Micro: Microbiology 05/26/21 17:15 Blood Culture (Wb) - Anticubital Left Blood Culture - Preliminary 05/26/21 17:34 Blood Culture (Wb) - Right Wrist Bacteria Detection (PCR) - Final Streptococcus agalactiae (B) 05/26/21 17:34 Blood Culture (Wb) - Right Wrist Blood Culture - Preliminary 05/27/21 01:00 Mucosa - Nasopharyngeal Respiratory Panel (PCR) - Final ABG Data ABG results: ABG 05/27/21 08:32 Specimen Type ART Sample Site R Radial pH 7.38 Bicarbonate Actual 26.3 H Total CO2 28 Base Excess 1 O2 Saturation 72 L O2 % 30 ABG pCO2 44.5 ABG pO2 39 L* Vignesh Test Positive Respiration Rate 12 O2 Delivery Device BiPAP Vent Mode BiLevel POC PEEP 12 Crit Call To/Read Back Yes Clinical Comments 29/09 12 30 Cardiology Labs/Tests 05/27/21 08:32: pH 7.38, Bicarbonate Actual 26.3 H, Base Excess 1, O2 Saturation 72 L, ABG pCO2 44.5, ABG pO2 39 L*, Vigensh Test Positive 05/28/21 04:30: Sodium 141, Potassium 3.6, Chloride 104, Carbon Dioxide 30.0, BUN 36 H, Creatinine 1.40 H, Est GFR (MDRD) Af Amer 47 L, Est GFR (MDRD) Non-Af 39 L, BUN/Creatinine Ratio 25.7 H, Glucose 138 H, Calcium 8.3 L, Phosphorus 4.1, Magnesium 2.1 05/28/21 04:30: WBC 17.8 H, RBC 3.98 L, Hgb 9.8 L, Hct 34.1 L, MCV 85.7, MCH 24.6 L, MCHC 28.7 L, Plt Count 204, MPV 12.1 H, Immature Gran % (Auto) 0.800, Neut % (Auto) 84.9 H, Lymph % (Auto) 6.3 L, [place] % (Auto) 7.0, Eos % (Auto) 0.7, Baso % (Auto) 0.3, Absolute Neuts (auto) 15.1 H, Nucleated RBC % 0 Rhythm: EKG: Normal sinus rhythm with no acute changes ECHO: Stress Test: Cardiac Cath: PCI: CT Surgery: Holter monitor: EPS: PPM: CXR: Chest CT Scan: Physical Exam Const oriented x3 and healthy appearing Orientation / Consciousness: awake HEENT normocephalic Eyes PERRL and conjunctivae normal Neck supple, no JVD and no carotid bruits Chest inspection of chest normal Resp normal respiratory effort and clear to auscultation bilaterally Cardio Palpation: normal PMI Rate: regular rate Rhythm: regular rhythm Heart Sounds: S1 normal, S2 normal and murmur systolic III/ harsh left sternal border Peripheral Pulses: pulses 2+ throughout GI normal to inspection, nondistended, normoactive bowel sounds Extremity normal to inspection and no clubbing, cyanosis or edema Psych mental status grossly normal Assessment & Plan Assessment/Plan (1) Acute exacerbation of congestive heart failure: QUALIFIERS: Heart failure type: diastolic Qualified Code(s): I50.33 - Acute on chronic diastolic (congestive) heart failure PLAN: The patient appears to present with acute on chronic CHF: Heart failure with preserved ejection fraction. She appears to doing well on the current medical therapy. She will continue with diuretic therapy as well as intermittent BiPAP support. She appears to be fairly stable to be transferred to the progressive care unit. (2) CAD (coronary artery disease): QUALIFIERS: Coronary Disease-Associated Artery/Lesion type: [place] artery [place] vs. transplanted heart: [place] heart Associated angina: with unstable angina Qualified Code(s): I25.110 - Atherosclerotic heart disease of [place] coronary artery with unstable angina pectoris PLAN: The patient has a history of CAD. She underwent a repeat evaluation which demonstrated patency of her stents in the LAD and mild disease in the circumflex artery and right coronary artery. Ejection fraction was preserved. (3) History of coronary artery stent placement: PLAN: The patient has history of previous PCI. Recent evaluation demonstrated patency of her previously placed stents. No changes will be made with regard to her therapy. (4) Moderate aortic stenosis: PLAN: The patient has been evaluated noninvasively and invasively in the past.At the present time she was found to have evidence, based upon her most recent transthoracic echocardiogram, of moderate aortic valve stenosis. Her aortic valve area was estimated to be 0.9 cm?. (5) Sick sinus syndrome: PLAN: The patient has a history of sick sinus syndrome and is status post permanent pacemaker placement. (6) History of permanent cardiac pacemaker placement: PLAN: The patient's pacemaker has been followed as an outpatient. It has been functioning appropriately. (7) Hyperlipidemia: QUALIFIERS: Hyperlipidemia type: unspecified Qualified Code(s): E78.5 - Hyperlipidemia, unspecified PLAN: The patient should continue risk factor evaluation care as she is able. (8) Essential (primary) hypertension: PLAN: The patient's blood pressure will need to be followed with adjustments as needed based upon her clinical condition, renal function, etc.
--- NOTE | 2021-05-28 08:00 | US_ITS ---
STUDY: RENAL ULTRASOUND - COMPLETE REASON FOR EXAM: Female, 75 years old. GRIS -- scanning at 7:15 am TECHNIQUE: Ultrasound evaluation of the kidneys was performed with real-time and static lin-scale imaging. COMPARISON: Comparison is made with prior examination dated 06/05/2018. FINDINGS: RIGHT KIDNEY: Normal location of the right kidney, which is normal in size. The right kidney measures 10.1 cm x 6 cm x 6.1 cm. There is a normal cortex of the right kidney. The renal cortex measures 1.7 cm. There is no right renal mass or cyst. There are no right renal calculi. There is no right hydronephrosis. DISTAL RIGHT URETER: There is non-visualization of the distal right ureter. There is no demonstrated right ureterovesical junction calculus. There is no demonstrated right ureteral jet. LEFT KIDNEY: Normal location of the left kidney, which is normal in size. The left kidney measures 11.2 cm x 5 cm x 6.3 cm. There is a normal cortex of the left kidney. The renal cortex measures 1.8 cm. There is no left renal mass or cyst. There are no left renal calculi. There is no left hydronephrosis. DISTAL LEFT URETER: There is non-visualization of the distal left ureter. There is no demonstrated left ureterovesical junction calculus. There is no demonstrated left ureteral jet. BLADDER: A IRENE catheter is seen within the urinary bladder. US/Kidney and Bladder IMPRESSION: Normal ultrasound of the kidneys . Electronically Signed: Santiago Kwok MD at 13:41 EDT , Service support ,
[2021-05-28 08:21] LABS: Bedside Glucose 145 mg/dL (70-110)
--- NOTE | 2021-05-28 08:37 | PN.CC_ITS ---
Assessment & Plan Assessment/Plan (1) Acute exacerbation of congestive heart failure: QUALIFIERS: Heart failure type: diastolic Qualified Code(s): I50.33 - Acute on chronic diastolic (congestive) heart failure (2) Acute hypoxemic respiratory failure: (3) Sepsis: PLAN: RECOMMENDATIONS: 1. Increase activity as tolerated 2. Consider narrowing of antibiotic spectrum 3. Could consider infectious disease consult 4. Continue diuretic therapy as tolerated by hemodynamics and renal function 5. Continue Xarelto. 6. Hold all sedating medications. 7. Continue BiPAP with sleep, nasal cannula during the day. Goal to maintain oxygen saturations at or above 90%. 8. Potentially okay to transfer from the intensive care unit later today IMPRESSIONS: 1. Sepsis due to gram-positive bacteremia with acute sepsis The patient presented to the hospital with altered mentation and acute respiratory failure in the setting of group B strep bacteremia. Urine and pulmonary sources of infection are possibilities. Patient does have superficial skin wounds that may serve as a source. The patient remains hemodynamically stable. Patient likely will need an echocardiogram for evaluation of valvular endocarditis given history of aortic stenosis and pacemaker wires. Cardiology is following. 2. Acute hypoxemic respiratory failure Likely multifactorial in etiology. There is a possibility for an underlying pulmonary infectious etiology coupled with decompensated heart failure. Given rapid improvement over last 24 hours, an element of CHF is likely. Cannot rule out hematologic spread of bacteremia as a compounding factor. Continue BiPAP with sleep. Wean nasal cannula during the day as tolerated. Plan to continue diuretic therapy as tolerated by hemodynamics and renal function. 3. Encephalopathy Likely metabolic in etiology and related to #1. CT head was unremarkable. Continue current supportive measures. Delirium protocol avoid sedating medications. 4. History of coronary artery disease/aortic stenosis/chronic kidney disease/advanced age/morbid obesity/paroxysmal atrial fibrillation Complicates care, management, recovery and prognosis. Continue home medications as indicated. This note was generated with [employer] dictation software. It may contain incorrect words, spelling, and punctuation that were not noted in checking the note before signing. Subjective Subjective Patient did okay overnight. No acute issues were reported outside of atrial fibrillation. Patient is a relatively poor historian and hard of hearing. Patient was able to be weaned to nasal cannula and is tolerating well. No new symptoms reported today. Objective Data Objective Data Vital Signs: Vital Signs Temp Pulse Resp BP Pulse Ox 36.0 C L 84 21 H 107/48 L 98 05/28/21 00:00 05/28/21 04:00 05/28/21 01:49 05/28/21 01:00 05/28/21 01:00 Oxygen Flow Rate (L/min) 3 Oxygen Delivery Method Nasal Cannula Weight: 104 kg Body Mass Index (BMI) 43.1 Intake & Output: Intake and Output for Last 24 Hours 05/26/21 05/27/21 05/28/21 23:59 23:59 23:59 Intake Total 305 / 305 860 / 860 827.25 / 827.25 Output Total 2910 / 2910 900 / 900 Balance 305 / 305 -2050 / -2050 -72.75 / -72.75 Lab / Micro Data Result Diagrams: 05/28/21 04:30 05/28/21 04:30 Labs: Laboratory Results - last 24 hr 05/27/21 00:55: Urine Creatinine 172.00, Urine Urea Nitrogen 292 05/27/21 10:27: POC Glucose 180 H 05/27/21 21:59: POC Glucose 200 H 05/28/21 04:30: Sodium 141, Potassium 3.6, Chloride 104, Carbon Dioxide 30.0, BUN 36 H, Creatinine 1.40 H, Estim Creat Clear Calc 25.39, Est GFR (MDRD) Af Amer 47 L, Est GFR (MDRD) Non-Af 39 L, BUN/Creatinine Ratio 25.7 H, Glucose 138 H, Calcium 8.3 L, Phosphorus 4.1, Magnesium 2.1, Albumin 2.5 L 05/28/21 04:30: WBC 17.8 H, RBC 3.98 L, Hgb 9.8 L, Hct 34.1 L, MCV 85.7, MCH 24.6 L, MCHC 28.7 L, RDW Std Deviation 50.0 H, RDW Coeff of Candace 16.0 H, Plt Count 204, MPV 12.1 H, Immature Gran % (Auto) 0.800, Neut % (Auto) 84.9 H, Lymph % (Auto) 6.3 L, [place] % (Auto) 7.0, Eos % (Auto) 0.7, Baso % (Auto) 0.3, Absolute Neuts (auto) 15.1 H, Absolute Lymphs (auto) 1.12, Nucleated RBC % 0 05/28/21 08:14: POC Glucose 145 H Micro: Microbiology 05/26/21 17:34 Blood Culture (Wb) - Right Wrist Bacteria Detection (PCR) - Final Streptococcus agalactiae (B) 05/26/21 17:34 Blood Culture (Wb) - Right Wrist Blood Culture - Preliminary Streptococcus agalactiae (B) 05/26/21 17:15 Blood Culture (Wb) - Anticubital Left Blood Culture - Preliminary 05/27/21 01:00 Mucosa - Nasopharyngeal Respiratory Panel (PCR) - Final 05/27/21 00:55 Urine Catheter - Douglas Legionella Antigen - Final 05/27/21 00:55 Urine Catheter - Douglas Streptococcus pneumoniae Antigen (M - Final 05/26/21 17:25 Mucosa - Nose SARS-CoV-2 Antigen (Rapid) - Final ABG Data ABG results: ABG 05/27/21 08:32 Specimen Type ART Sample Site R Radial pH 7.38 Bicarbonate Actual 26.3 H Total CO2 28 Base Excess 1 O2 Saturation 72 L O2 % 30 ABG pCO2 44.5 ABG pO2 39 L* Vignesh Test Positive Respiration Rate 12 O2 Delivery Device BiPAP Vent Mode BiLevel POC PEEP 12 Crit Call To/Read Back Yes Clinical Comments 29/09 12 30 Physical Exam Const General Appearance: lethargic and on BiPAP Exam Limitations: altered mental status Nutritional Appearance: morbidly obese HEENT normocephalic and head/scalp atraumatic Eyes PERRL and EOMs intact bilaterally Neck supple General: trachea midline Resp Effort and Inspection: tachypneic Auscultation: diminished lung sounds; Negative for rales, rhonchi or wheezes Cardio regular rate and regular rhythm Heart Sounds: murmur systolic III/ harsh GI normal to inspection, nondistended, normoactive bowel sounds Extremity General Extremity: edema bilateral lower extremity Skin Skin Narrative: Mild pretibial erythema Neuro Neuro Narrative: The patient is lethargic without focal neurological deficit. Psych Mood & Affect: flat affect Charges/Coding Visit Charges Inpatient E&M: 25250 Subs Hosp L3
--- NOTE | 2021-05-28 09:17 | PN.RENAL_ITS ---
Subjective Subjective Patient is awake and alert and oriented still SOB Objective Data Objective Data Vital Signs: Vital Signs Temp Pulse Resp BP Pulse Ox 96.8 F L 84 21 H 107/48 L 98 05/28/21 00:00 05/28/21 04:00 05/28/21 01:49 05/28/21 01:00 05/28/21 01:00 Oxygen Flow Rate (L/min) 3 Oxygen Delivery Method Nasal Cannula Weight: 104 kg Body Mass Index (BMI) 43.1 Intake & Output: Intake and Output for Last 24 Hours 05/26/21 05/27/21 05/28/21 23:59 23:59 23:59 Intake Total 305 / 305 860 / 860 827.25 / 827.25 Output Total 2910 / 2910 900 / 900 Balance 305 / 305 -205 / -2049 -72.75 / -72.75 Lab / Micro Data Result Diagrams: 05/28/21 04:30 05/28/21 04:30 Labs: Laboratory Results - last 24 hr 05/27/21 00:55: Urine Creatinine 172.00, Urine Urea Nitrogen 292 05/27/21 10:27: POC Glucose 180 H 05/27/21 21:59: POC Glucose 200 H 05/28/21 04:30: Sodium 141, Potassium 3.6, Chloride 104, Carbon Dioxide 30.0, BUN 36 H, Creatinine 1.40 H, Estim Creat Clear Calc 25.39, Est GFR (MDRD) Af Amer 47 L, Est GFR (MDRD) Non-Af 39 L, BUN/Creatinine Ratio 25.7 H, Glucose 138 H, Calcium 8.3 L, Phosphorus 4.1, Magnesium 2.1, Albumin 2.5 L 05/28/21 04:30: WBC 17.8 H, RBC 3.98 L, Hgb 9.8 L, Hct 34.1 L, MCV 85.7, MCH 24.6 L, MCHC 28.7 L, RDW Std Deviation 50.0 H, RDW Coeff of Candace 16.0 H, Plt Count 204, MPV 12.1 H, Immature Gran % (Auto) 0.800, Neut % (Auto) 84.9 H, Lymph % (Auto) 6.3 L, [place] % (Auto) 7.0, Eos % (Auto) 0.7, Baso % (Auto) 0.3, Absolute Neuts (auto) 15.1 H, Absolute Lymphs (auto) 1.12, Nucleated RBC % 0 05/28/21 08:14: POC Glucose 145 H Micro: Microbiology 05/26/21 17:34 Blood Culture (Wb) - Right Wrist Bacteria Detection (PCR) - Final Streptococcus agalactiae (B) 05/26/21 17:34 Blood Culture (Wb) - Right Wrist Blood Culture - Preliminary Streptococcus agalactiae (B) 05/26/21 17:15 Blood Culture (Wb) - Anticubital Left Blood Culture - Preliminary 05/27/21 01:00 Mucosa - Nasopharyngeal Respiratory Panel (PCR) - Final 05/27/21 00:55 Urine Catheter - Douglas Legionella Antigen - Final 05/27/21 00:55 Urine Catheter - Douglas Streptococcus pneumoniae Antigen (M - Final 05/26/21 17:25 Mucosa - Nose SARS-CoV-2 Antigen (Rapid) - Final Physical Exam Narrative General: Alert and follows simple commands. No apparent distress HEENT: Normocephalic, atraumatic. The patient is wearing a BiPAP mask. Mucous membranes moist. PERRLA. Neck: Supple, no visible JVD. Heart: Normal S1, S2. No rubs, murmurs or gallops. Lungs: Coarse breath sounds anteriorly. Abdomen: Normal bowel sound, soft, nontender, no guarding or rebound. Extremity: Full passive range of motion. There is 2+ nonpitting edema in the lower extremity bilaterally. There is erythema of the left lower extremity anteriorly as well. No pain on palpation. Neurological: No focal neurologic deficits. Skin: Erythema of the anterior portion of the left lower extremity. Otherwise, there is no rash. Skin is warm and dry. Assessment & Plan Assessment/Plan (1) GRIS (acute kidney injury): PLAN: I suspect that GRIS could be due to cardiorenal syndrome. The patient appears to be volume overloaded on exam. kidney function is improving with diuresis. I agree with continuing to treat the patient with diuretics to decongest volume overload. We will monitor renal function while the patient is being diuresed. Current medications are reviewed and are appropriately dosed for the current estimated creatinine clearance. (2) Chronic kidney disease, stage 3b: PLAN: Baseline serum creatinine is 1.2 to 1.3 mg/dL. I suspect that the patient has diabetic kidney disease. She has has a persistent glucosuria and proteinuria on prior urinalysis. . (3) HTN (hypertension): PLAN: The patient is on amlodipine only for blood pressure control at this point. Diuresis will also help with BP. We will monitor blood pressure. (4) Anemia: PLAN: Hemoglobin is 9.7 today. It was 11.7 on presentation. Recheck hemoglobin again tomorrow. I have low suspicion that anemia is secondary to chronic kidney disease at this point. If there is further decline in hem oglobin, I would work-up for other causes of anemia. (5) Acute hypoxemic respiratory failure: PLAN: The patient is being treated for both congestive heart failure and possible lower respiratory tract infection. She is getting Lasix and Diuril today. I agree with this. I will continue to monitor renal function while she is being diuresed. The patient is also being treated for pneumonia with Zosyn and vancomycin (she has increased risk for HAP since she is from SNF). She is on NIV as managed by advanced manufacturing associate as well.
--- NOTE | 2021-05-28 10:09 | CASEMGMT ---
Addendum entered by Tonja Benavidez 05/28/21 15:47: [facility]'s fax earlier did not go through so [facility] re-faxed updates including PT/OT evaluations. Tonja SAVAGE Original Note: Patient is from [facility] skilled. [facility] faxed updates to [facility]. SW will see how patient does with therapy and check with patient. Tonja SAVAGE
[2021-05-28] MEDS: Potassium Chloride Oral Tablet 20 MEQ PO (10:28)
[2021-05-28] MEDS: levETIRAcetam 500 MG Tablet PO ×2 (10:28→20:37)
[2021-05-28] MEDS: Pantoprazole Sodium 40 MG Tablet PO (10:28)
[2021-05-28] MEDS: Morphine 2 MG/ML Syringe IV (10:36)
[2021-05-28] MEDS: Furosemide 40 MG/4 ML Vial 80 MG IV ×2 (10:49→17:03)
[2021-05-28 12:16] LABS: Bedside Glucose 191 mg/dL (70-110)
[2021-05-28] MEDS: Insulin Lispro 100 UNIT/ML INSULN.PEN SC ×3 (12:59→20:38)
[2021-05-28] MEDS: Cefazolin 2 GM in 0.9% Normal Saline 100 ML IV ×2 (13:02→20:58)
--- NOTE | 2021-05-28 14:00 | PN.HOSP_ITS ---
Subjective Subjective Breathing well. Complaining about fluid seeping from her leg earlier. Objective Data Objective Data Vital Signs: Vital Signs Temp Pulse Resp BP Pulse Ox 36.4 C L 85 20 H 127/55 H 96 05/28/21 09:00 05/28/21 13:08 05/28/21 13:08 05/28/21 13:00 05/28/21 13:00 Oxygen Flow Rate (L/min) 3 Oxygen Delivery Method Nasal Cannula Weight: 104 kg Body Mass Index (BMI) 43.1 Intake & Output: Intake and Output for Last 24 Hours 05/26/21 05/27/21 05/28/21 23:59 23:59 23:59 Intake Total 305 / 305 860 / 860 877.25 / 877.25 Output Total 2910 / 2910 900 / 900 Balance 305 / 305 -2050 / -2050 -22.75 / -22.75 Lab / Micro Data Result Diagrams: 05/28/21 04:30 05/28/21 04:30 Labs: Laboratory Results - last 24 hr 05/27/21 21:59: POC Glucose 200 H 05/28/21 04:30: Sodium 141, Potassium 3.6, Chloride 104, Carbon Dioxide 30.0, BUN 36 H, Creatinine 1.40 H, Estim Creat Clear Calc 25.39, Est GFR (MDRD) Af Valerie r 47 L, Est GFR (MDRD) Non-Af 39 L, BUN/Creatinine Ratio 25.7 H, Glucose 138 H, Calcium 8.3 L, Phosphorus 4.1, Magnesium 2.1, Albumin 2.5 L 05/28/21 04:30: WBC 17.8 H, RBC 3.98 L, Hgb 9.8 L, Hct 34.1 L, MCV 85.7, MCH 24.6 L, MCHC 28.7 L, RDW Std Deviation 50.0 H, RDW Coeff of Candace 16.0 H, Plt Count 204, MPV 12.1 H, Immature Gran % (Auto) 0.800, Neut % (Auto) 84.9 H, Lymph % (Auto) 6.3 L, [place] % (Auto) 7.0, Eos % (Auto) 0.7, Baso % (Auto) 0.3, Absolute Neuts (auto) 15.1 H, Absolute Lymphs (auto) 1.12, Nucleated RBC % 0 05/28/21 08:14: POC Glucose 145 H 05/28/21 12:10: POC Glucose 191 H Micro: Microbiology 05/26/21 17:15 Blood Culture (Wb) - Anticubital Left Blood Culture - Preliminary Streptococcus agalactiae (B) 05/27/21 00:55 Urine Catheter - Douglas Urine Culture - Preliminary Culture exhibits no growth. 05/26/21 17:34 Blood Culture (Wb) - Right Wrist Bacteria Detection (PCR) - Final Streptococcus agalactiae (B) 05/26/21 17:34 Blood Culture (Wb) - Right Wrist Blood Culture - Preliminary Streptococcus agalactiae (B) 05/27/21 01:00 Mucosa - Nasopharyngeal Respiratory Panel (PCR) - Final 05/27/21 00:55 Urine Catheter - Douglas Legionella Antigen - Final 05/27/21 00:55 Urine Catheter - Douglas Streptococcus pneumoniae Antigen (M - Final 05/26/21 17:25 Mucosa - Nose SARS-CoV-2 Antigen (Rapid) - Final Radiography Diagnostic Testing: Radiology Impression Renal Ultrasound 05/28/21 08:00 IMPRESSION: Normal ultrasound of the kidneys . Electronically Signed: Santiago Kwok MD at 13:41 EDT , Service support , Physical Exam Const alert HEENT Head and Scalp: normocephalic Resp normal respiratory effort, no retractions, no use of accessory muscles and clear to auscultation bilaterally Cardio regular rate, regular rhythm, S1 normal heart sound and S2 normal heart sound GI normal to inspection, nondistended, normoactive bowel sounds, soft to palpation, non-tender and non-distended Extremity Extremity Narrative: bilateral LE edema. Assessment & Plan Assessment/Plan (1) Sepsis: QUALIFIERS: Sepsis type: Streptococcus group B Sepsis acute organ dysfunction status: without acute organ dysfunction Qualified Code(s): A40.1 - Sepsis due to streptococcus, group B (2) Bacteremia: (3) (HFpEF) heart failure with preserved ejection fraction: QUALIFIERS: Heart failure chronicity: acute Qualified Code(s): I50.31 - Acute diastolic (congestive) heart failure PLAN: 1. Sepsis 2/2 Group B Strep bacteremia 2. Group B Strep bacteremia unclear source repeat BCx check echo 3. Acute HFpEF EF 60% from 01/11/2021 contniue IV furosemide 4. CKD IIIB I do not see GRIS, therefore, ruled out monitor 5. DM2 BGT up to 200. Continue glargine and SSI 6. VTE prophylaxis: already anticoagulated Charges/Coding Visit Charges Inpatient E&M: 54147 Subs Hosp L2
--- NOTE | 2021-05-28 14:25 | ECHOCS_ITS ---
Reason For Study: Bacteremia Procedure This was a 2D Doppler, Color Flow transthoracic echocardiogram. The study was technically difficult. Contrast injection was performed. Exam performed portable in ICU/CCU. Left Ventricle Normal LV size. Mild concentric left ventricular hypertrophy. Left ventricular systolic function is hyperdynamic. The estimated ejection fraction is 65 %. No regional wall motion abnormalities noted. Right Ventricle Normal RV size. ICD or pacer leads identified within the right ventricle. Normal systolic function. Atria Normal left atrium. Normal right atrium. Mitral Valve There is moderate to severe mitral annular calcification. Aortic Valve Trisinus/trileaflet aortic valve. Moderate focal aortic valve calcification. Peak aortic valve gradient 69 mmHg. Mean aortic valve gradient 39 mmHg. Severe aortic stenosis. Pulmonic Valve The pulmonic valve is not well visualized. Great Vessels Normal aortic root. The pulmonary artery is normal size. Normal inferior vena cava. Pericardium/Pleural No pericardial effusion. Medication Diluted definity 5ml given slow IV push to enhance endocardial definition. MMode/2D Measurements & Calculations LVIDd: 3.8 cm IVSd: 1.3 cm LVOT diam: 2.0 cm LVIDs: 2.6 cm LVPWd: 1.5 cm LVOT area: 3.0 cm2 RVDd: 3.7 cm FS: 31.8 % LA dimension: 4.3 cm LAV(MOD-bp): 67.1 ml Aortic Valve Planimetry: 0.95 cm2 LAV(MOD-bp) Indexed: 33.5 ml/m2 LAV(MOD-sp2): 66.3 ml LAV(MOD-sp4): 68.4 ml LA A4 area: 22.7 cm2 Doppler Measurements & Calculations MV E max merline: 177.3 cm/sec Ao V2 max: 414.0 cm/sec LV V1 max: 93.0 cm/sec Ao max P.6 mmHg LV V1 max P.5 mmHg Ao V2 mean: 288.2 cm/sec LV V1 mean P.9 mmHg Ao mean P.0 mmHg LV V1 mean: 64.6 cm/sec Ao V2 VTI: 88.9 cm LV V1 VTI: 19.2 cm GALE(I,D): 0.65 cm2 GALE(V,D): 0.68 cm2 SV(LVOT): 58.2 ml PA V2 max: 116.3 cm/sec ECHO/Echo Complete W/ Contrast Interpretation Summary Normal LV size. Left ventricular systolic function is hyperdynamic. The estimated ejection fraction is 65 %. Mild concentric left ventricular hypertrophy. ICD or pacer leads identified within the right ventricle. Contrast injection was performed. Ordering Physician: Antoine Muñiz Referring Physician: Emerita Gottlieb Performed By: Dax Sierra RCS
[2021-05-28 15:34] LABS: Pathologist Review Reviewed
[2021-05-28 15:40] LABS: Pathologist Review Reviewed
[2021-05-28 16:41] LABS: Bedside Glucose 190 mg/dL (70-110)
[2021-05-28] MEDS: Rivaroxaban 15 MG Tablet PO (17:02)
[2021-05-28] MEDS: Acetaminophen 325 MG Tablet 650 MG PO (19:36)
[2021-05-28] MEDS: Fluticasone 0.05% 1 SPRAY NASAL.SRY 2 SPRAY NASAL (19:40)
[2021-05-28] MEDS: Atorvastatin Calcium 20 MG Tablet PO (20:37)
[2021-05-28] MEDS: Latanoprost 0.005% 1 Bottle 1 DRP OPHTHALMIC (20:40)
[2021-05-28 21:05] LABS: Bedside Glucose 240 mg/dL (70-110)
--- NOTE | 2021-05-28 22:53 | CPS ---
pt states she does not want to wear the mask bipap
[2021-05-29] VITALS (19 sets, daily range): BP systolic 108–137; BP diastolic 57–88; PULSE 86–109; RESP 12–20; TEMP 36.2–36.8; O2SAT 88–98
[2021-05-29] MEDS: Ipratropium/Albuterol Sulfate 3 ML AMPUL.NEB INHALATION ×5 (01:35→23:09)
--- NOTE | 2021-05-29 01:59 | NURSING ---
PO 98% ON 3LNC. DECREASED 02 2LNC
[2021-05-29 04:54] LABS: Absolute Lymphocyte Count 1.67 X10^3/uL (0.83-4.51); Basophil# 0.06 X10^3/uL; Basophil% 0.5 % (0-1); Eosinophil# 0.22 X10^3/uL; Eosinophils% 1.7 % (0-5); Hematocrit 34.9 % (37-47); Hemoglobin 10.4 g/dL (12.0-15.0); Lymphocyte # 1.67 X10^3/ul (0.83-4.51); Lymphocyte % 12.9 % (19-41); Mean Corp Hgb Conc 29.8 g/dL (32-36); Mean Corpuscular Hgb 24.4 pg (27.0-32.0); Mean Corpuscular Volume 81.7 fL (81-99); Mean Platelet Vol. 11.3 fl (6.2-12.0); Monocyte# 1.01 X10^3/uL; Monocyte% 7.8 % (0-10); NRBC Flagged by Analyzer 0 % (0-5); Neutrophil # 9.95 X10^3/uL (2.7-7.7); Neutrophil % 76.7 % (47-70); Platelet Count 236 K/mm3 (150-450); RBC Distribution Width CV 15.7 % (11.6-14.6); RBC Distribution Width SD 47.1 fl (35.1-43.9); Red Blood Count 4.27 M/mm3 (4.2-5.4)
[2021-05-29] MEDS: 0.9% Saline Lock 10 ML Syringe IV ×2 (04:55→10:43)
[2021-05-29] MEDS: Levothyroxine 50 MCG Tablet PO (04:55)
[2021-05-29] MEDS: Cefazolin 2 GM in 0.9% Normal Saline 100 ML IV ×3 (04:56→20:51)
--- NOTE | 2021-05-29 05:01 | NURSING ---
pt sleeping. po drop to 88-89% on 2lnc. when awake po 90. increased 02 3lnc
[2021-05-29 05:12] LABS: Anion Gap 6 (5-15); BUN 38 mg/dL (7-18); Chloride 101 mmol/L (98-107); Creatinine, Serum 1.46 mg/dL (0.55-1.02); EST Glomerular Filtration Rate 37 mL/min (>60); Est Glom Filt Rate - Afr Amer 45 mL/min (>60); Estimated Creatinine Clearance 24.35 ml/min; Glucose 185 mg/dL (74-106); Potassium 3.6 mmol/L (3.5-5.1); Sodium Level 142 mmol/L (136-145)
--- NOTE | 2021-05-29 07:01 | PN.CC_ITS ---
Assessment & Plan Assessment/Plan (1) Acute exacerbation of congestive heart failure: QUALIFIERS: Heart failure type: diastolic Qualified Code(s): I50.33 - Acute on chronic diastolic (congestive) heart failure (2) Acute hypoxemic respiratory failure: (3) Sepsis: QUALIFIERS: Sepsis type: Streptococcus group B Sepsis acute organ dysfunction status: without acute organ dysfunction Qualified Code(s): A40.1 - Sepsis due to streptococcus, group B PLAN: RECOMMENDATIONS: 1. Increase activity as tolerated 2. Continue antibiotics to complete a 14-day course. Repeat blood cultures pending 3. Could consider infectious disease consult 4. Continue diuretic therapy as tolerated by hemodynamics and renal function 5. Continue Xarelto. 6. Hold all sedating medications. 7. Encourage BiPAP with sleep, nasal cannula during the day. Goal to maintain oxygen saturations at or above 90%. 8. Okay to transfer from the intensive care unit later today IMPRESSIONS: 1. Sepsis due to group B strep bacteremia with acute sepsis The patient presented to the hospital with altered mentation and acute respiratory failure in the setting of group B strep bacteremia. Urine and pulmonary sources of infection are possibilities. Patient does have superficial skin wounds that may serve as a source. The patient remains hemodynamically stable. Echocardiogram was not suggestive of endocarditis, but did show significant aortic stenosis with mitral calcifications. Defer to cardiology on whether a JAHAIRA would be indicated for evaluation. Repeat blood cultures are currently pending 2. Acute hypoxemic respiratory failure Likely multifactorial in etiology. There is a possibility for an underlying pulmonary infectious etiology coupled with decompensated heart failure. Given rapid improvement over last 24 hours, an element of CHF is likely. Cannot rule out hematologic spread of bacteremia as a compounding factor. Continue to recommend BiPAP with sleep. Wean nasal cannula during the day as tolerated. Plan to continue diuretic therapy as tolerated by hemodynamics and renal function. 3. Encephalopathy Likely metabolic in etiology and related to #1. CT head was unremarkable. Continue current supportive measures. Delirium protocol and avoid sedating medications. 4. History of coronary artery disease/aortic stenosis/chronic kidney diseas e/advanced age/morbid obesity/paroxysmal atrial fibrillation Complicates care, management, recovery and prognosis. Continue home medications as indicated. This note was generated with [employer] software. It may contain incorrect words, spelling, and punctuation that were not noted in checking the note before signing. Subjective Subjective Patient did okay overnight. No acute issues were reported. Patient has remained hemodynamically stable, but still requiring minimal nasal cannula oxygen to maintain saturations. Nursing did report some desaturation overnight while sleeping. Objective Data Objective Data Vital Signs: Vital Signs Temp Pulse Resp BP Pulse Ox 36.6 C 89 18 137/57 H 95 05/29/21 05:00 05/29/21 05:00 05/29/21 05:00 05/29/21 05:00 05/29/21 05:00 Oxygen Flow Rate (L/min) 3 Oxygen Delivery Method Nasal Cannula Weight: 101.3 kg Body Mass Index (BMI) 43.1 Intake & Output: Intake and Output for Last 24 Hours 05/27/21 05/28/21 05/29/21 23:59 23:59 23:59 Intake Total 860 / 860 2219.75 / 2219.75 110 / 110 Output Total 2910 / 2910 5300 / 5300 1000 / 1000 Balance -2050 / -2050 -3080.25 / -3080.25 -890 / -890 Lab / Micro Data Result Diagrams: 05/29/21 04:45 05/29/21 04:45 Labs: Laboratory Results - last 24 hr 05/26/21 16:50: Diff Path Review Reviewed 05/27/21 05:40: Diff Path Review Reviewed 05/28/21 08:14: POC Glucose 145 H 05/28/21 12:10: POC Glucose 191 H 05/28/21 16:33: POC Glucose 190 H 05/28/21 20:35: POC Glucose 240 H 05/29/21 04:45: WBC 13.0 H, RBC 4.27, Hgb 10.4 L, Hct 34.9 L, MCV 81.7, MCH 24.4 L, MCHC 29.8 L, RDW Std Deviation 47.1 H, RDW Coeff of Candace 15.7 H, Plt Count 236, MPV 11.3, Immature Gran % (Auto) 0.400, Neut % (Auto) 76.7 H, Lymph % (Auto) 12.9 L, [place] % (Auto) 7.8, Eos % (Auto) 1.7, Baso % (Auto) 0.5, Absolute Neuts (auto) 10.0 H, Absolute Lymphs (auto) 1.67, Nucleated RBC % 0 05/29/21 04:45: Sodium 142, Potassium 3.6, Chloride 101, Carbon Dioxide 35.0 H, Anion Gap 6, BUN 38 H, Creatinine 1.46 H, Estim Creat Clear Calc 24.35, Est GFR (MDRD) Af Amer 45 L, Est GFR (MDRD) Non-Af 37 L, BUN/Creatinine Ratio 26.0 H, Glucose 185 H, Calcium 9.0 Micro: Microbiology 05/26/21 17:15 Blood Culture (Wb) - Anticubital Left Blood Culture - Preliminary Streptococcus agalactiae (B) 05/27/21 00:55 Urine Catheter - Douglas Urine Culture - Preliminary Culture exhibits no growth. 05/26/21 17:34 Blood Culture (Wb) - Right Wrist Bacteria Detection (PCR) - Final Streptococcus agalactiae (B) 05/26/21 17:34 Blood Culture (Wb) - Right Wrist Blood Culture - Preliminary Streptococcus agalactiae (B) 05/27/21 01:00 Mucosa - Nasopharyngeal Respiratory Panel (PCR) - Final 05/27/21 00:55 Urine Catheter - Douglas Legionella Antigen - Final 05/27/21 00:55 Urine Catheter - Douglas Streptococcus pneumoniae Antigen (M - Final 05/26/21 17:25 Mucosa - Nose SARS-CoV-2 Antigen (Rapid) - Final Radiography Diagnostic Testing: Radiology Impression Renal Ultrasound 05/28/21 08:00 IMPRESSION: Normal ultrasound of the kidneys . Electronically Signed: Santiago Kwok MD at 13:41 EDT , Service support , Echocardiogram 05/28/21 14:25 Interpretation Summary Normal LV size. Left ventricular systolic function is hyperdynamic. The estimated ejection fraction is 65 %. Mild concentric left ventricular hypertrophy. ICD or pacer leads identified within the right ventricle. Contrast injection was performed. Ordering Physician: Antoine Muñiz Referring Physician: Emerita Gottlieb Performed By: Dax Sierra RCS Physical Exam Const Constitutional Narrative: Slower to respond, but appropriate General Appearance: on BiPAP Exam Limitations: altered mental status Nutritional Appearance: morbidly obese HEENT normocephalic and head/scalp atraumatic Eyes PERRL and EOMs intact bilaterally Neck supple General: trachea midline Resp Effort and Inspection: symmetric chest movement; Negative for respiratory distress Auscultation: diminished lung sounds; Negative for rales, rhonchi or wheezes Cardio regular rate and regular rhythm Heart Sounds: murmur systolic III/ harsh GI normal to inspection, nondistended, normoactive bowel sounds Extremity Extremity Narrative: Some pain to palpation bilateral lower extremities General Extremity: edema bilateral lower extremity Skin Skin Narrative: Mild pretibial erythema Neuro Neuro Narrative: The patient is lethargic without focal neurological deficit. Psych Mood & Affect: flat affect Charges/Coding Visit Charges Inpatient E&M: 98277 Subs Hosp L3
--- NOTE | 2021-05-29 07:55 | PN.CARD_ITS ---
Subjective Subjective Patient seen and evaluated. Appears to be doing better at this time. Objective Data Vital Signs: Vital Signs Temp Pulse Resp BP Pulse Ox 97.9 F 89 18 137/57 H 95 05/29/21 05:00 05/29/21 06:48 05/29/21 06:48 05/29/21 05:00 05/29/21 06:48 Oxygen Flow Rate (L/min) 2 Oxygen Delivery Method Nasal Cannula Weight: 223 lb 5.252 oz Body Mass Index (BMI) 43.1 Intake & Output: Intake and Output for Last 24 Hours 05/27/21 05/28/21 05/29/21 23:59 23:59 23:59 Intake Total 860 / 860 2219.75 / 2219.75 110 / 110 Output Total 2910 / 2910 5300 / 5300 1000 / 1000 Balance -2050 / -2050 -3080.25 / -3080.25 -890 / -890 Lab / Micro Data Result Diagrams: 05/29/21 04:45 05/29/21 04:45 Labs: Laboratory Results - last 24 hr 05/26/21 16:50: Diff Path Review Reviewed 05/27/21 05:40: Diff Path Review Reviewed 05/28/21 08:14: POC Glucose 145 H 05/28/21 12:10: POC Glucose 191 H 05/28/21 16:33: POC Glucose 190 H 05/28/21 20:35: POC Glucose 240 H 05/29/21 04:45: WBC 13.0 H, RBC 4.27, Hgb 10.4 L, Hct 34.9 L, MCV 81.7, MCH 24.4 L, MCHC 29.8 L, RDW Std Deviation 47.1 H, RDW Coeff of Candace 15.7 H, Plt Count 236, MPV 11.3, Immature Gran % (Auto) 0.400, Neut % (Auto) 76.7 H, Lymph % (Auto) 12.9 L, [place] % (Auto) 7.8, Eos % (Auto) 1.7, Baso % (Auto) 0.5, Absolute Neuts (auto) 10.0 H, Absolute Lymphs (auto) 1.67, Nucleated RBC % 0 05/29/21 04:45: Sodium 142, Potassium 3.6, Chloride 101, Carbon Dioxide 35.0 H, Anion Gap 6, BUN 38 H, Creatinine 1.46 H, Estim Creat Clear Calc 24.35, Est GFR (MDRD) Af Amer 45 L, Est GFR (MDRD) Non-Af 37 L, BUN/Creatinine Ratio 26.0 H, Glucose 185 H, Calcium 9.0 Micro: Microbiology 05/26/21 17:34 Blood Culture (Wb) - Right Wrist Bacteria Detection (PCR) - Final Streptococcus agalactiae (B) 05/26/21 17:34 Blood Culture (Wb) - Right Wrist Blood Culture - Final Streptococcus agalactiae (B) 05/26/21 17:15 Blood Culture (Wb) - Anticubital Left Blood Culture - Final Streptococcus agalactiae (B) 05/27/21 00:55 Urine Catheter - Douglas Urine Culture - Preliminary Culture exhibits no growth. Cardiology Labs/Tests 05/29/21 04:45: WBC 13.0 H, RBC 4.27, Hgb 10.4 L, Hct 34.9 L, MCV 81.7, MCH 24.4 L, MCHC 29.8 L, Plt Count 236, MPV 11.3, Immature Gran % (Auto) 0.400, Neut % (A uto) 76.7 H, Lymph % (Auto) 12.9 L, [place] % (Auto) 7.8, Eos % (Auto) 1.7, Baso % (Auto) 0.5, Absolute Neuts (auto) 10.0 H, Nucleated RBC % 0 05/29/21 04:45: Sodium 142, Potassium 3.6, Chloride 101, Carbon Dioxide 35.0 H, Anion Gap 6, BUN 38 H, Creatinine 1.46 H, Est GFR (MDRD) Af Amer 45 L, Est GFR (MDRD) Non-Af 37 L, BUN/Creatinine Ratio 26.0 H, Glucose 185 H, Calcium 9.0 Rhythm: EKG: ECHO: Stress Test: Cardiac Cath: PCI: CT Surgery: Holter monitor: EPS: PPM: CXR: Chest CT Scan: Radiography Diagnostic Testing: Radiology Impression Renal Ultrasound 05/28/21 08:00 IMPRESSION: Normal ultrasound of the kidneys . Electronically Signed: Santiago Kwok MD at 13:41 EDT , Service support , Echocardiogram 05/28/21 14:25 Interpretation Summary Normal LV size. Left ventricular systolic function is hyperdynamic. The estimated ejection fraction is 65 %. Mild concentric left ventricular hypertrophy. ICD or pacer leads identified within the right ventricle. Contrast injection was performed. Ordering Physician: Antoine Muñiz Referring Physician: Emerita Gottlieb Performed By: Dax Sierra RCS Physical Exam Const oriented x3 and healthy appearing General Appearance: lethargic Orientation / Consciousness: awake HEENT normocephalic and head/scalp atraumatic Eyes PERRL, EOMs intact bilaterally and conjunctivae normal Neck supple, no JVD and no carotid bruits Chest inspection of chest normal Resp normal respiratory effort and clear to auscultation bilaterally Auscultation: diminished lung sounds diffuse Cardio regular rate, regular rhythm, S1 normal heart sound and S2 normal heart sound Palpation: normal PMI Rate: regular rate Rhythm: regular rhythm Heart Sounds: S1 normal, S2 normal and murmur systolic III/ harsh left sternal border Peripheral Pulses: pulses 2+ throughout GI normal to inspection, nondistended, normoactive bowel sounds Extremity normal to inspection and no clubbing, cyanosis or edema General Extremity: edema bilateral lower extremity Psych mental status grossly normal Assessment & Plan Assessment/Plan (1) Acute exacerbation of congestive heart failure: QUALIFIERS: Heart failure type: diastolic Qualified Code(s): I50.33 - Acute on chronic diastolic (congestive) heart failure PLAN: The patient appears to present with acute on chronic CHF: Heart failure with preserved ejection fraction. She appears to doing well on the current medical therapy. She will continue with diuretic therapy as well as intermittent BiPAP support. She appears to be fairly stable to be transferred to the [facility] care unit. (2) CAD (coronary artery disease): QUALIFIERS: Coronary Disease-Associated Artery/Lesion type: ruby artery [place] vs. transplanted heart: ruby heart Associated angina: with unstable angina Qualified Code(s): I25.110 - Atherosclerotic heart disease of ruby coronary artery with unstable angina pectoris PLAN: The patient has a history of CAD. She underwent a repeat evaluation which demonstrated patency of her stents in the LAD and mild disease in the circumflex artery and right coronary artery. Ejection fraction was preserved. (3) History of coronary artery stent placement: PLAN: The patient has history of previous PCI. Recent evaluation demonstrated patency of her previously placed stents. No changes will be made with regard to her therapy. (4) Moderate aortic stenosis: PLAN: The patient has been evaluated noninvasively and invasively in the past.At the present time she was found to have evidence, based upon her most recent transthoracic echocardiogram, of moderate aortic valve stenosis. Her aortic valve area was estimated to be 0.9 cm?. (5) Sick sinus syndrome: PLAN: The patient has a history of sick sinus syndrome and is status post permanent pacemaker placement. (6) History of permanent cardiac pacemaker placement: PLAN: The patient's pacemaker has been followed as an outpatient. It has been functioning appropriately. (7) Hyperlipidemia: QUALIFIERS: Hyperlipidemia type: unspecified Qualified Code(s): E78.5 - Hyperlipidemia, unspecified PLAN: The patient should continue risk factor evaluation care as she is able. (8) Essential (primary) hypertension: PLAN: The patient's blood pressure will need to be followed with adjustments as needed based upon her clinical condition, renal function, etc.
[2021-05-29] MEDS: Pantoprazole Sodium 40 MG Tablet PO (08:20)
[2021-05-29] MEDS: Isosorbide Mononitrate 60 MG Tablet PO (08:20)
[2021-05-29] MEDS: levETIRAcetam 500 MG Tablet PO ×2 (08:20→20:59)
[2021-05-29] MEDS: Fluticasone 0.05% 1 SPRAY NASAL.SRY 2 SPRAY NASAL ×2 (08:21→20:59)
[2021-05-29] MEDS: Insulin Lispro 100 UNIT/ML INSULN.PEN SC ×4 (08:21→20:59)
[2021-05-29] MEDS: Acetaminophen 325 MG Tablet 650 MG PO (08:23)
[2021-05-29] MEDS: Morphine 2 MG/ML Syringe IV (08:31)
--- NOTE | 2021-05-29 09:24 | PN.RENAL_ITS ---
Subjective Subjective breathing is better No N/V On NC 2lmin Objective Data Objective Data Vital Signs: Vital Signs Temp Pulse Resp BP Pulse Ox 97.2 F L 102 H 20 H 131/79 H 94 05/29/21 08:25 05/29/21 08:25 05/29/21 08:25 05/29/21 08:25 05/29/21 08:25 Oxygen Flow Rate (L/min) 3 Oxygen Delivery Method Nasal Cannula Weight: 101.3 kg Body Mass Index (BMI) 43.1 Intake & Output: Intake and Output for Last 24 Hours 05/27/21 05/28/21 05/29/21 23:59 23:59 23:59 Intake Total 860 / 860 2219.75 / 2219.75 110 / 110 Output Total 2910 / 2910 5300 / 5300 1000 / 1000 Balance -2050 / -2050 -3080.25 / -3080.25 -890 / -890 Lab / Micro Data Result Diagrams: 05/29/21 04:45 05/29/21 04:45 Labs: Laboratory Results - last 24 hr 05/26/21 16:50: Diff Path Review Reviewed 05/27/21 05:40: Diff Path Review Reviewed 05/28/21 12:10: POC Glucose 191 H 05/28/21 16:33: POC Glucose 190 H 05/28/21 20:35: POC Glucose 240 H 05/29/21 04:45: WBC 13.0 H, RBC 4.27, Hgb 10.4 L, Hct 34.9 L, MCV 81.7, MCH 24.4 L, MCHC 29.8 L, RDW Std Deviation 47.1 H, RDW Coeff of Candace 15.7 H, Plt Count 236, MPV 11.3, Immature Gran % (Auto) 0.400, Neut % (Auto) 76.7 H, Lymph % (Auto ) 12.9 L, [place] % (Auto) 7.8, Eos % (Auto) 1.7, Baso % (Auto) 0.5, Absolute Neuts (auto) 10.0 H, Absolute Lymphs (auto) 1.67, Nucleated RBC % 0 05/29/21 04:45: Sodium 142, Potassium 3.6, Chloride 101, Carbon Dioxide 35.0 H, Anion Gap 6, BUN 38 H, Creatinine 1.46 H, Estim Creat Clear Calc 24.35, Est GFR (MDRD) Af Amer 45 L, Est GFR (MDRD) Non-Af 37 L, BUN/Creatinine Ratio 26.0 H, Glucose 185 H, Calcium 9.0 Micro: Microbiology 05/27/21 00:55 Urine Catheter - Douglas Urine Culture - Final Culture exhibits no growth. 05/26/21 17:34 Blood Culture (Wb) - Right Wrist Bacteria Detection (PCR) - Final Streptococcus agalactiae (B) 05/26/21 17:34 Blood Culture (Wb) - Right Wrist Blood Culture - Final Streptococcus agalactiae (B) 05/26/21 17:15 Blood Culture (Wb) - Anticubital Left Blood Culture - Final Streptococcus agalactiae (B) 05/27/21 01:00 Mucosa - Nasopharyngeal Respiratory Panel (PCR) - Final 05/27/21 00:55 Urine Catheter - Douglas Legionella Antigen - Final 05/27/21 00:55 Urine Catheter - Douglas Streptococcus pneumoniae Antigen (M - Final 05/26/21 17:25 Mucosa - Nose SARS-CoV-2 Antigen (Rapid) - Final Radiography Diagnostic Testing: Radiology Impression Renal Ultrasound 05/28/21 08:00 IMPRESSION: Normal ultrasound of the kidneys . Electronically Signed: Santiago Kwok MD at 13:41 EDT , Service support , Echocardiogram 05/28/21 14:25 Interpretation Summary Normal LV size. Left ventricular systolic function is hyperdynamic. The estimated ejection fraction is 65 %. Mild concentric left ventricular hypertrophy. ICD or pacer leads identified within the right ventricle. Contrast injection was performed. Ordering Physician: Antoine Muñiz Referring Physician: Emerita Gottlieb Performed By: Dax Sierra RCS Physical Exam Narrative General: Alert and follows simple commands. No apparent distress HEENT: Normocephalic, atraumatic. The patient is wearing a BiPAP mask. Mucous membranes moist. PERRLA. Neck: Supple, no visible JVD. Heart: Normal S1, S2. No rubs, murmurs or gallops. Lungs: CTA Abdomen: Normal bowel sound, soft, nontender, no guarding or rebound. Extremity: Full passive range of motion. There is 2+ nonpitting edema in the lower extremity bilaterally. There is erythema of the left lower extremity anteriorly as well. No pain on palpation. Neurological: No focal neurologic deficits. Skin: Erythema of the anterior portion of the left lower extremity. Otherwise, there is no rash. Skin is warm and dry. Assessment & Plan Assessment/Plan (1) GRIS (acute kidney injury): PLAN: I suspect that GRIS could be due to cardiorenal syndrome. The patient appears to be volume overloaded on exam. kidney function improved with diuresis. Cr is stable at 1.4 mg.dl. UOP > 5L Will reduce lasix to 60 BID We will monitor renal function while the patient is being diuresed. Check RFP in am (2) Chronic kidney disease, stage 3b: PLAN: Baseline serum creatinine is 1.2 to 1.3 mg/dL. I suspect that the patient has diabetic kidney disease. She has has a persistent glucosuria and proteinuria on prior urinalysis. . (3) HTN (hypertension): PLAN: The patient is on amlodipine only for blood pressure control at this point. Diuresis will also help with BP. We will monitor blood pressure. (4) Acute hypoxemic respiratory failure: PLAN: The patient is being treated for both congestive heart failure and possible lower respiratory tract infection. She is getting Lasix . I will continue to monitor renal function while she is being diuresed. The patient is also being treated for pneumonia with Abx. She is on NC this aml.
--- NOTE | 2021-05-29 10:23 | NURSING ---
Was asked to see patient for lymphedema. patient resting in bed awake. has a couple very small scabbed areas. no redness or drainage noted. pt states legs are tender. minimal edema noted. patient states legs get worse when she wears compression stockings. no need for DWAIN wraps or wound care at this time. pt denies further needs.
[2021-05-29] MEDS: Furosemide 100 MG/10 ML Vial 60 MG IV ×2 (10:46→17:26)
--- NOTE | 2021-05-29 10:50 | CASEMGMT ---
Social Work SW spoke w/Sadaf at [facility], pt is actually here from the assisted living, not the SNF. Pt would need to go to SNF at discharge. SW met w/pt in room. Pt confirms is from assisted living, is agreeable to go to [facility] skilled at discharge. Pt had to do this one other time. SW did also call daughter Cinthia South to let her know the plan, message left. SW faxed updates to [facility], left her message letting her know to start precert. MINAL will continue to follow. VERENA Francois
[2021-05-29 12:46] LABS: Bedside Glucose 199 mg/dL (70-110)
--- NOTE | 2021-05-29 13:45 | PN.HOSP_ITS ---
Subjective Subjective breathing well. Objective Data Objective Data Vital Signs: Vital Signs Temp Pulse Resp BP Pulse Ox 36.4 C L 98 20 H 114/73 96 05/29/21 12:00 05/29/21 12:00 05/29/21 12:00 05/29/21 12:00 05/29/21 12:00 Oxygen Flow Rate (L/min) 3 Oxygen Delivery Method Nasal Cannula Weight: 101.3 kg Body Mass Index (BMI) 43.1 Intake & Output: Intake and Output for Last 24 Hours 05/27/21 05/28/21 05/29/21 23:59 23:59 23:59 Intake Total 860 / 860 2219.75 / 2219.75 350 / 350 Output Total 2910 / 2910 5300 / 5300 1950 / 1950 Balance -2050 / -205 -3080.25 / -3080.25 -1600 / -1600 Lab / Micro Data Result Diagrams: 05/29/21 04:45 05/29/21 04:45 Labs: Laboratory Results - last 24 hr 05/26/21 16:50: Diff Path Review Reviewed 05/27/21 05:40: Diff Path Review Reviewed 05/28/21 16:33: POC Glucose 190 H 05/28/21 20:35: POC Glucose 240 H 05/29/21 04:45: WBC 13.0 H, RBC 4.27, Hgb 10.4 L, Hct 34.9 L, MCV 81.7, MCH 24.4 L, MCHC 29.8 L, RDW Std Deviation 47.1 H, RDW Coeff of Candace 15.7 H, Plt Count 236, MPV 11.3, Immature Gran % (Auto) 0.400, Neut % (Auto) 76.7 H, Lymph % (Auto) 12.9 L, [place] % (Auto) 7.8, Eos % (Auto) 1.7, Baso % (Auto) 0.5, Absolute Neuts (auto) 10.0 H, Absolute Lymphs (auto) 1.67, Nucleated RBC % 0 05/29/21 04:45: Sodium 142, Potassium 3.6, Chloride 101, Carbon Dioxide 35.0 H, Anion Gap 6, BUN 38 H, Creatinine 1.46 H, Estim Creat Clear Calc 24.35, Est GFR (MDRD) Af Amer 45 L, Est GFR (MDRD) Non-Af 37 L, BUN/Creatinine Ratio 26.0 H, Glucose 185 H, Calcium 9.0 05/29/21 12:32: POC Glucose 199 H Micro: Microbiology 05/27/21 00:55 Urine Catheter - Douglas Urine Culture - Final Culture exhibits no growth. 05/26/21 17:34 Blood Culture (Wb) - Right Wrist Bacteria Detection (PCR) - Final Streptococcus agalactiae (B) 05/26/21 17:34 Blood Culture (Wb) - Right Wrist Blood Culture - Final Streptococcus agalactiae (B) 05/26/21 17:15 Blood Culture (Wb) - Anticubital Left Blood Culture - Final Streptococcus agalactiae (B) 05/27/21 01:00 Mucosa - Nasopharyngeal Respiratory Panel (PCR) - Final 05/27/21 00:55 Urine Catheter - Douglas Legionella Antigen - Final 05/27/21 00:55 Urine Catheter - Douglas Streptococcus pneumoniae Antigen (M - Final 05/26/21 17:25 Mucosa - Nose SARS-CoV-2 Antigen (Rapid) - Final Radiography Diagnostic Testing: Radiology Impression Echocardiogram 05/28/21 14:25 Interpretation Summary Normal LV size. Left ventricular systolic function is hyperdynamic. The estimated ejection fraction is 65 %. Mild concentric left ventricular hypertrophy. ICD or pacer leads identified within the right ventricle. Contrast injection was performed. ___ Ordering Physician: Antoine Muñiz Referring Physician: Emerita Gottlieb Performed By: Dax Sierra RCS Physical Exam Resp normal respiratory effort, no retractions, no use of accessory muscles and clear to auscultation bilaterally Cardio regular rate, regular rhythm, S1 normal heart sound and S2 normal heart sound GI normal to inspection, nondistended, normoactive bowel sounds, soft to palpation and non-tender Extremity General Extremity: edema Assessment & Plan Assessment/Plan (1) Sepsis: QUALIFIERS: Sepsis type: Streptococcus group B Sepsis acute organ dysfunction status: without acute organ dysfunction Qualified Code(s): A40.1 - Sepsis due to streptococcus, group B (2) Bacteremia: (3) (HFpEF) heart failure with preserved ejection fraction: QUALIFIERS: Heart failure chronicity: acute Qualified Code(s): I50.31 - Acute diastolic (congestive) heart failure PLAN: 1. Sepsis 2/2 Group B Strep bacteremia 2. Group B Strep bacteremia unclear source repeat BCx thus far negative echo unremarkable on cefazolin 3. Acute HFpEF EF 65% from 05/28/2021 continue IV furosemide 4. CKD IIIB I do not see GRIS, therefore, ruled out monitor nephrology following 5. DM2 BGT up to 200. Continue glargine and SSI 6. VTE prophylaxis: already anticoagulated Charges/Coding Visit Charges Inpatient E&M: 23866 Subs Hosp L2
[2021-05-29 15:21] LABS: Bedside Glucose 223 mg/dL (70-110)
--- NOTE | 2021-05-29 16:12 | CASEMGMT ---
Palliative screening tool completed for [facility] 3. Patient meets criteria for palliative consult. Hospitalist updated and order received for palliative consult. Referral sent to [facility].
[2021-05-29] MEDS: Rivaroxaban 15 MG Tablet PO (16:45)
[2021-05-29 16:50] LABS: Bedside Glucose 213 mg/dL (70-110)
[2021-05-29 16:55] LABS: Bedside Glucose 188 mg/dL (70-110)
[2021-05-29] MEDS: Latanoprost 0.005% 1 Bottle 1 DRP OPHTHALMIC (20:58)
[2021-05-29] MEDS: Atorvastatin Calcium 20 MG Tablet PO (20:59)
[2021-05-29] MEDS: Sodium Chloride 0.65% 1 SPRAY SPRAY.BTL NASAL (21:23)
[2021-05-29 22:10] LABS: Bedside Glucose 247 mg/dL (70-110)
[2021-05-30] VITALS (12 sets, daily range): BP systolic 108–146; BP diastolic 52–88; PULSE 60–115; RESP 12–20; TEMP 36.3–36.8; O2SAT 91–96
[2021-05-30 05:09] LABS: Absolute Lymphocyte Count 1.56 X10^3/uL (0.83-4.51); Absolute Neutrophil Count 8.4 X10^3/uL (2.0-7.7); Basophil# 0.09 X10^3/uL; Basophil% 0.8 % (0-1); Eosinophil# 0.29 X10^3/uL; Eosinophils% 2.5 % (0-5); Hematocrit 34.7 % (37-47); Hemoglobin 10.4 g/dL (12.0-15.0); Lymphocyte # 1.56 X10^3/ul (0.83-4.51); Lymphocyte % 13.7 % (19-41); Mean Corpuscular Hgb 24.4 pg (27.0-32.0); Mean Corpuscular Volume 81.5 fL (81-99); Mean Platelet Vol. 11.4 fl (6.2-12.0); Monocyte# 1.04 X10^3/uL; Monocyte% 9.1 % (0-10); NRBC Flagged by Analyzer 0 % (0-5); Neutrophil # 8.38 X10^3/uL (2.7-7.7); Neutrophil % 73.4 % (47-70); Platelet Count 251 K/mm3 (150-450); RBC Distribution Width CV 15.4 % (11.6-14.6); RBC Distribution Width SD 46.1 fl (35.1-43.9); Red Blood Count 4.26 M/mm3 (4.2-5.4); White Blood Count 11.4 K/mm3 (4.4-11.0)
[2021-05-30 05:27] LABS: ALB/GLOB Ratio 0.6 RATIO (0.9-2.4); AST(SGOT) 28 U/L (15-37); Alanine Aminotransfer ALT/SGPT 20 U/L (13-56); Albumin, Serum 2.7 g/dL (3.2-5.0); Alkaline Phosphatase 139 U/L (45-117); Anion Gap 7 (5-15); BUN 32 mg/dL (7-18); BUN/Creat Ratio 25.4 RATIO (10-20); Calcium,Total 8.9 mg/dL (8.5-10.1); Chloride 99 mmol/L (98-107); Creatinine, Serum 1.26 mg/dL (0.55-1.02); EST Glomerular Filtration Rate 44 mL/min (>60); Est Glom Filt Rate - Afr Amer 53 mL/min (>60); Estimated Creatinine Clearance 28.22 ml/min; Globulin 4.6 g/dL (2.2-4.2); Glucose 216 mg/dL (74-106); Potassium 3.3 mmol/L (3.5-5.1); Protein, Total 7.3 g/dL (6.4-8.2); Sodium Level 139 mmol/L (136-145)
[2021-05-30] MEDS: Levothyroxine 50 MCG Tablet PO (05:54)
[2021-05-30] MEDS: Cefazolin 2 GM in 0.9% Normal Saline 100 ML IV ×3 (05:55→23:07)
[2021-05-30] MEDS: Ipratropium/Albuterol Sulfate 3 ML AMPUL.NEB INHALATION ×3 (06:54→19:42)
[2021-05-30] MEDS: Insulin Lispro 100 UNIT/ML INSULN.PEN SC ×4 (07:22→23:03)
[2021-05-30 07:30] LABS: Bedside Glucose 183 mg/dL (70-110)
[2021-05-30] MEDS: levETIRAcetam 500 MG Tablet PO ×2 (08:45→23:04)
[2021-05-30] MEDS: Potassium Chloride Oral Tablet 20 MEQ PO (08:45)
[2021-05-30] MEDS: Isosorbide Mononitrate 60 MG Tablet PO (08:45)
[2021-05-30] MEDS: 0.9% Saline Lock 10 ML Syringe IV ×3 (08:45→17:03)
[2021-05-30] MEDS: Pantoprazole Sodium 40 MG Tablet PO (08:45)
--- NOTE | 2021-05-30 08:45 | PN.CC_ITS ---
Assessment & Plan Assessment/Plan (1) Acute exacerbation of congestive heart failure: QUALIFIERS: Heart failure type: diastolic Qualified Code(s): I50.33 - Acute on chronic diastolic (congestive) heart failure (2) Acute hypoxemic respiratory failure: (3) Sepsis: QUALIFIERS: Sepsis type: Streptococcus group B Sepsis acute organ dysfunction status: without acute organ dysfunction Qualified Code(s): A40.1 - Sepsis due to streptococcus, group B PLAN: RECOMMENDATIONS: 1. Increase activity as tolerated 2. Continue antibiotics to complete a 10 to 14-day course. Repeat blood cultures appear to have no growth to date 3. Could consider infectious disease consult 4. Continue diuretic therapy as tolerated by hemodynamics and renal function 5. Continue Xarelto. 6. Hold all sedating medications. 7. Recommend outpatient sleep study if patient is agreeable to BiPAP 8. Hemodynamically stable on room air. Will sign off from a critical care perspective IMPRESSIONS: 1. Sepsis due to group B strep bacteremia with acute sepsis The patient presented to the hospital with altered mentation and acute respiratory failure in the setting of group B strep bacteremia. Urine and pulmonary sources of infection are possibilities. Patient does have superficial skin wounds that may serve as a source. The patient remains hemodynamically stable. Echocardiogram was not suggestive of endocarditis, but did show significant aortic stenosis with mitral calcifications. Defer to cardiology on whether a JAHAIRA would be indicated for evaluation. Repeat blood cultures are currently pending, but will likely be no growth at 48 hours. Patient has been hemodynamically stable. Will defer to primary service on long-term recommen dations and further work-up. 2. Acute hypoxemic respiratory failure Likely multifactorial in etiology. There is a possibility for an underlying pulmonary infectious etiology coupled with decompensated heart failure. Given rapid improvement over last 24 hours, an element of CHF is likely. Cannot rule out hematologic spread of bacteremia as a compounding factor. Patient should continue BiPAP with sleep as she likely has undiagnosed obstructive sleep apnea. This would explain why the patient requires supplemental oxygen with sleep. Otherwise, patient has been hemodynamically stable 3. Encephalopathy Likely metabolic in etiology and related to #1. CT head was unremarkable. Continue current supportive measures. Delirium protocol and avoid sedating medications. 4. History of coronary artery disease/aortic stenosis/chronic kidney disease/advanced age/morbid obesity/paroxysmal atrial fibrillation Complicates care, management, recovery and prognosis. Continue home medications as indicated. This note was generated with Dragon dictation software. It may contain incorrect words, spelling, and punctuation that were not noted in checking the note before signing. Subjective Subjective Patient did okay overnight. Patient states that she did not sleep very well and is subsequently tired this morning. Patient denies any nausea or vomiting. Patient does report a decreased appetite. No chest pain or shortness of breath is reported. Patient did have to be placed on a little nasal cannula oxygen when she finally fell asleep. Objective Data Objective Data Vital Signs: Vital Signs Temp Pulse Resp BP Pulse Ox 36.3 C L 115 H 12 146/88 H 91 05/30/21 03:14 05/30/21 07:10 05/30/21 06:54 05/30/21 03:14 05/30/21 06:54 Oxygen Flow Rate (L/min) 2 Oxygen Delivery Method Nasal Cannula Weight: 99.2 kg Body Mass Index (BMI) 43.1 Intake & Output: Intake and Output for Last 24 Hours 05/28/21 05/29/21 05/30/21 23:59 23:59 23:59 Intake Total 2219.75 / 2219.75 570 / 570 430 / 430 Output Total 5300 / 5300 2550 / 2550 300 / 300 Balance -3080.25 / -3080.25 -1979 / 130 / 130 Lab / Micro Data Result Diagrams: 05/30/21 04:50 05/30/21 04:50 Labs: Laboratory Results - last 24 hr 05/29/21 08:18: POC Glucose 188 H 05/29/21 12:32: POC Glucose 199 H 05/29/21 15:13: POC Glucose 223 H 05/29/21 16:39: POC Glucose 213 H 05/29/21 20:57: POC Glucose 247 H 05/30/21 04:50: WBC 11.4 H, RBC 4.26, Hgb 10.4 L, Hct 34.7 L, MCV 81.5, MCH 24.4 L, MCHC 30.0 L, RDW Std Deviation 46.1 H, RDW Coeff of Candace 15.4 H, Plt Count 251, MPV 11.4, Immature Gran % (Auto) 0.500, Neut % (Auto) 73.4 H, Lymph % (Auto) 13.7 L, [place] % (Auto) 9.1, Eos % (Auto) 2.5, Baso % (Auto) 0.8, Absolute Neuts (auto) 8.4 H, Absolute Lymphs (auto) 1.56, Nucleated RBC % 0 05/30/21 04:50: Sodium 139, Potassium 3.3 L, Chloride 99, Carbon Dioxide 33.0 H, Anion Gap 7, BUN 32 H, Creatinine 1.26 H, Estim Creat Clear Calc 28.22, Est GFR (MDRD) Af Amer 53 L, Est GFR (MDRD) Non-Af 44 L, BUN/Creatinine Ratio 25.4 H, Glucose 216 H, Calcium 8.9, Total Bilirubin 0.60, AST 28, ALT 20, Alkaline Phosphatase 139 H, Total Protein 7.3, Albumin 2.7 L, Globulin 4.6 H, Albumin/Globulin Ratio 0.6 L 05/30/21 07:21: POC Glucose 183 H Micro: Microbiology 05/27/21 00:55 Urine Catheter - Douglas Urine Culture - Final Culture exhibits no growth. 05/26/21 17:34 Blood Culture (Wb) - Right Wrist Bacteria Detection (PCR) - Final Streptococcus agalactiae (B) 05/26/21 17:34 Blood Culture (Wb) - Right Wrist Blood Culture - Final Streptococcus agalactiae (B) 05/26/21 17:15 Blood Culture (Wb) - Anticubital Left Blood Culture - Final Streptococcus agalactiae (B) 05/27/21 01:00 Mucosa - Nasopharyngeal Respiratory Panel (PCR) - Final 05/27/21 00:55 Urine Catheter - Douglas Legionella Antigen - Final 05/27/21 00:55 Urine Catheter - Douglas Streptococcus pneumoniae Antigen (M - Final 05/26/21 17:25 Mucosa - Nose SARS-CoV-2 Antigen (Rapid) - Final Physical Exam Const no apparent distress Constitutional Narrative: Slower to respond, but appropriate once awake Nutritional Appearance: morbidly obese HEENT normocephalic and head/scalp atraumatic Eyes PERRL and EOMs intact bilaterally Neck supple General: trachea midline Resp Effort and Inspection: symmetric chest movement; Negative for respiratory distress Auscultation: diminished lung sounds; Negative for rales, rhonchi or wheezes Cardio regular rate and regular rhythm Heart Sounds: murmur systolic III/ harsh GI normal to inspection, nondistended, normoactive bowel sounds Extremity Extremity Narrative: Some pain to palpation bilateral lower extremities General Extremity: edema bilateral lower extremity Skin Skin Narrative: Mild pretibial erythema Neuro Neuro Narrative: Nonfocal exam Psych Mood & Affect: flat affect Charges/Coding Visit Charges Inpatient E&M: 40762 Subs Hosp L2
[2021-05-30] MEDS: Sodium Chloride 0.65% 1 SPRAY SPRAY.BTL NASAL (08:46)
[2021-05-30] MEDS: Fluticasone 0.05% 1 SPRAY NASAL.SRY 2 SPRAY NASAL ×2 (08:46→23:03)
[2021-05-30] MEDS: Furosemide 100 MG/10 ML Vial 60 MG IV ×2 (08:47→17:03)
--- NOTE | 2021-05-30 09:33 | PCM.PN.REN ---
Subjective Subjective Patient is doing better. On room air No shortness of breath no nausea no vomiting Objective Data Objective Data Vital Signs: Vital Signs Temp Pulse Resp BP Pulse Ox 98.2 F 113 H 18 108/64 94 05/30/21 09:00 05/30/21 09:00 05/30/21 09:00 05/30/21 09:00 05/30/21 09:00 Oxygen Flow Rate (L/min) 2 Oxygen Delivery Method Room Air Weight: 99.2 kg Body Mass Index (BMI) 43.1 Intake & Output: Intake and Output for Last 24 Hours 05/28/21 05/29/21 05/30/21 23:59 23:59 23:59 Intake Total 2219.75 / 2219.75 570 / 570 430 / 430 Output Total 5300 / 5300 2550 / 2550 300 / 300 Balance -3080.25 / -3080.25 -1979 / 130 / 130 Lab / Micro Data Result Diagrams: 05/30/21 04:50 05/30/21 04:50 Labs: Laboratory Results - last 24 hr 05/29/21 08:18: POC Glucose 188 H 05/29/21 12:32: POC Glucose 199 H 05/29/21 15:13: POC Glucose 223 H 05/29/21 16:39: POC Glucose 213 H 05/29/21 20:57: POC Glucose 247 H 05/30/21 04:50: WBC 11.4 H, RBC 4.26, Hgb 10.4 L, Hct 34.7 L, MCV 81.5, MCH 24.4 L, MCHC 30.0 L, RDW Std Deviation 46.1 H, RDW Coeff of Candace 15.4 H, Plt Count 251, MPV 11.4, Immature Gran % (Auto) 0.500, Neut % (Auto) 73.4 H, Lymph % (Auto) 13.7 L, [place] % (Auto) 9.1, Eos % (Auto) 2.5, Baso % (Auto) 0.8, Absolute Neuts (auto) 8.4 H, Absolute Lymphs (auto) 1.56, Nucleated RBC % 0 05/30/21 04:50: Sodium 139, Potassium 3.3 L, Chloride 99, Carbon Dioxide 33.0 H, Anion Gap 7, BUN 32 H, Creatinine 1.26 H, Estim Creat Clear Calc 28.22, Est GFR (MDRD) Af Amer 53 L, Est GFR (MDRD) Non-Af 44 L, BUN/Creatinine Ratio 25.4 H, Glucose 216 H, Calcium 8.9, Total Bilirubin 0.60, AST 28, ALT 20, Alkaline Phosphatase 139 H, Total Protein 7.3, Albumin 2.7 L, Globulin 4.6 H, Albumin/Globulin Ratio 0.6 L 05/30/21 07:21: POC Glucose 183 H Micro: Microbiology 05/27/21 00:55 Urine Catheter - Douglas Urine Culture - Final Culture exhibits no growth. 05/26/21 17:34 Blood Culture (Wb) - Right Wrist Bacteria Detection (PCR) - Final Streptococcus agalactiae (B) 05/26/21 17:34 Blood Culture (Wb) - Right Wrist Blood Culture - Final Streptococcus agalactiae (B) 05/26/21 17:15 Blood Culture (Wb) - Anticubital Left Blood Culture - Final Streptococcus agalactiae (B) 05/27/21 01:00 Mucosa - Nasopharyngeal Respiratory Panel (PCR) - Final 05/27/21 00:55 Urine Catheter - Douglas Legionella Antigen - Final 05/27/21 00:55 Urine Catheter - Douglas Streptococcus pneumoniae Antigen (M - Final 05/26/21 17:25 Mucosa - Nose SARS-CoV-2 Antigen (Rapid) - Final Physical Exam Narrative General: No acute distress. Neck: Supple, no visible JVD. Heart: Normal S1, S2. Tach and irregular. Lungs: CTA Abdomen: Normal bowel sound, soft, nontender, no guarding or rebound. Extremity: +1 edema of lower extremities. Neurological: No focal neurologic deficits. Skin: Erythema of the anterior portion of the left lower extremity. Otherwise, there is no rash. Skin is warm and dry. Assessment & Plan Assessment/Plan (1) GRIS (acute kidney injury): PLAN: From cardiorenal renal syndrome kidney function improved with diuresis. Serum creatinine is slightly better 1.2. Urine output around 2 L Continue same dose of Lasix. Might switch to oral diuretics tomorrow We will monitor renal function while the patient is being diuresed. Check RFP in am (2) Chronic kidney disease, stage 3b: PLAN: Baseline serum creatinine is 1.2 to 1.3 mg/dL. I suspect that the patient has diabetic kidney disease. She has has a persistent glucosuria and proteinuria on prior urinalysis. . (3) HTN (hypertension): PLAN: The patient is on amlodipine only for blood pressure control at this point. Diuresis will also help with BP. We will monitor blood pressure. (4) Acute hypoxemic respiratory failure: PLAN: The patient is being treated for both congestive heart failure and possible lower respiratory tract infection. She is getting Lasix . I will continue to monitor renal function while she is being diuresed. The patient is also being treated for pneumonia with Abx. She is on room air
--- NOTE | 2021-05-30 10:41 | CASEMGMT ---
Pt's daughter Cinthia called this SW back, SW explained that pt was agreeable to going to the skilled side of [facility] at discharge, SW explained wanted to make sure that daughter is agreeable to this also. Daughter states as long as pt is agreeable then she is agreeable also. She asked if pt would be quarantined however, as pt did not get a lot of therapy when there and quarantined. SW called [facility], spoke w/admissions. As per daughter pt has been vaccinated. As per admissions, pt will not be quarantined. SW let daughter know. Daughter asked SW to encourage pt to again follow up w/pain management and w/participating in therapy. SW explained will let the SW on PCU know, and that this SW will be following pt--SW gave daughter Tonja's number. SW updated MINAL Evangelista on PCU of above information. VERENA Francois
[2021-05-30 11:21] LABS: Bedside Glucose 297 mg/dL (70-110)
--- NOTE | 2021-05-30 13:33 | CON.PCM.PA_ITS ---
Assessment & Plan Assessment/Plan (1) Debility: (2) (HFpEF) heart failure with preserved ejection fraction: QUALIFIERS: Heart failure chronicity: acute Qualified Code(s): I50.31 - Acute diastolic (congestive) heart failure (3) Longstanding persistent atrial fibrillation: (4) Moderate aortic stenosis: (5) CAD (coronary artery disease): QUALIFIERS: Coronary Disease-Associated Artery/Lesion type: [place] artery [place] vs. transplanted heart: [place] heart Associated angina: with unstable angina Qualified Code(s): I25.110 - Atherosclerotic heart disease of [place] coronary artery with unstable angina pectoris (6) Acute hypoxemic respiratory failure: (7) Acute on chronic diastolic CHF (congestive heart failure): (8) Anemia due to chronic illness: (9) Dementia: QUALIFIERS: Dementia type: unspecified type Dementia behavioral disturbance: without behavioral disturbance Qualified Code(s): F03.90 - Unspecified dementia without behavioral disturbance (10) Stroke: QUALIFIERS: CVA mechanism: unspecified Qualified Code(s): I63.9 - Cerebral infarction, unspecified (11) Noncompliance: (12) Chronic kidney disease, stage 3b: (13) HTN (hypertension): QUALIFIERS: Hypertension type: secondary to endocrine disorders Qualified Code(s): I15.2 - Hypertension secondary to endocrine disorders (14) Bacteremia: (15) Nonrheumatic aortic (valve) stenosis: (16) Hyperlipidemia: QUALIFIERS: Hyperlipidemia type: unspecified Qualified Code(s): E78.5 - Hyperlipidemia, unspecified (17) Bone cancer: QUALIFIERS: Malignant neoplasm of bone location: unspecified location Qualified Code(s): C41.9 - Malignant neoplasm of bone and articular cartilage, unspecified PLAN: 75-year-old female with acute on chronic CHF exacerbation, acute hypoxemic respiratory failure, suspected ERIC, seen today for palliative care consultation secondary to overall decline in function and weakness, as well as several hospitalizations in the last 8 months, almost monthly. 1. Debility and weakness: Multifactorial, patient reportedly noncompliant at home but states she follows a diet and watches her fluid intake. Reports she takes her medications routinely. Overall strength has been declining, she will go to skilled therapy at discharge. We can follow-up in the group home. 2. CHF exacerbation: She has had multiple exacerbations in the last several months. She remains on IV Lasix, with possible transition to oral diuretic ther apy tomorrow. Defer management to cardiology and attending. 3. History of stroke/CKD stage III/HTN/bacteremia/dementia/anemia/aortic stenosis/CAD/persistent A. fib/bone cancer/HLD: Complicates overall care, management, recovery, and prognosis. She is from assisted living at [facility]. Plans are to return there after skilled therapy. Thank you for the opportunity to participate in this patient's care, please do not hesitate to contact [facility] with any further questions or concerns. Palliative direct line is [phone]. We will follow up after discharge, hopefully of liaison can come give her more information and possibly sign consents prior to leaving the hospital as patient is an excellent palliative care candidate. Greater than 50% of F2F visit dedicated to education and counseling of palliative care services, medications, comorbid conditions and potential assistance with management, and plan of care moving forward. Start time: 1333 End time: 1429 HPI Consult Data Date of Consult: 05/30/21 HPI Narrative HPI Narrative: MILTON HERMOSILLO, is a 75 F who presented to [facility] 05/26/2021 with complaints of shortness of breath and general malaise. She did have an altered mental status and was hypoxemic. Her white count was elevated and she had bilateral pleural effusions on chest x-ray. CT the chest showed bilateral pleural effusions and pulmonary edema. She was started on IV antibiotics and IV Lasix, and was placed on BiPAP. She was admitted to the ICU for further evaluation and management. CODE STATUS at the group home is DNR CCA. Patient was transferred to the progressive care unit today, 05/30. She continues on antibiotics and diuretic therapy. Pulmonary/line installer recommended outpatient sleep study if patient is agreeable to BiPAP and to hold all sedating medications secondary to her respiratory issues and delirium. She did have sepsis due to group B strep bacteremia. There was consideration for a JAHAIRA secondary to significant aortic stenosis with mitral calcifications and concern for possible endocarditis. Patient does not require supplemental oxygen with sleep. She was also seen by nephrology for GRIS from cardiorenal syndrome. Plan to switch to oral diuretics 05/31. According to nursing staff, patient often refuses BiPAP. Patient being seen today for palliative care consultation secondary to functional decline and congestive heart failure. She resides at [facility] living facility. Plans are discharged to go to the skilled section of [facility] for further rehab prior to returning to [facility]. Patient was also hospitalized in March 2021 and required snf at that time as well. She qualified for palliative referral but physician declined at that time. She is alert and oriented, up in the chair with legs elevated. She is somewhat tearful as she just got off the phone with her friend, who is in the emergency room again with respiratory failure. Denies any nasal congestion. No cough or sputum production. Denies any wheezing. She does feel short of breath with exertion at times. No chest pain. Has mild 1-2+ pitting lower extremity edema, skin is somewhat shiny. No nausea, vomiting, diarrhea, or constipation. No abdominal pain or dysuria. Her legs are very sensitive to touch and painful. She has a small open area to the left claros, otherwise no wounds. She does have some numbness and tingling chronic in nature. She admits she has been declining recently as far as her mobility and independence, and this makes her feel down in the dumps. She wants to stay in assisted living for as long as possible. Patient is quite talkative and has to be redirected when discussing palliative care. Explained services to her and offered a liaison visit, which she has accepted. We did not touch on hospice at this time. ON LICENSE OF [facility] Medical History Alzheimer disease Angina pectoris Anxiety Aortic stenosis Atherosclerosis of coronary artery without angina pectoris Bone cancer Bundle branch block CAD (coronary artery disease) Cholelithiasis Chronic back pain Chronic diastolic (congestive) heart failure Chronic pain CKD (chronic kidney disease) stage 3, GFR 30-59 ml/min Congestive heart failure (CHF) Depression Diabetes Dysphagia Essential (primary) hypertension GERD (gastroesophageal reflux disease) Goiter History of urinary incontinence Hyperlipidemia Hypothyroidism Kidney disease Longstanding persistent atrial fibrillation Metabolic encephalopathy Moderate aortic stenosis Morbid obesity 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 Nonrheumatic aortic (valve) stenosis Osteoarthritis Osteoarthritis PVD (peripheral vascular disease) Right bundle branch block (RBBB) Seizures Sick sinus syndrome Sleep apnea Type II diabetes mellitus Home Medications metoprolol succinate 50 mg PO DAILY 10/11/17 [History Last Taken 05/18/20] prasugrel 10 mg PO DAILY 06/04/18 [History Last Taken 05/18/20] duloxetine 30 mg PO DAILY 11/18/18 [History Last Taken 05/18/20] isosorbide mononitrate 90 mg PO DAILY 02/29/20 [History Last Taken 05/18/20] furosemide 20 mg tablet 20 mg PO BID tab 04/19/20 [History Last Taken 05/18/20] levetiracetam 500 mg tablet 500 mg PO BID tab 04/19/20 [History Last Taken 05/18/20] omeprazole 20 mg PO DAILY 05/18/20 [History Last Taken 05/18/20] acetaminophen 650 mg PO Q6H PRN PRN tab 05/22/20 [Rx Last Taken Unknown] fluticasone propionate 2 spray NARES BID 12/13/20 [History Last Taken Unknown] nitroglycerin 0.4 mg SUBLINGUAL PRN PRN 12/13/20 [History Last Taken Unknown] atorvastatin 20 mg tablet 20 mg PO QHS 01/05/21 [History Last Taken Unknown] bisacodyl 10 mg rectal suppository 10 mg RC Q8 PRN 01/05/21 [History Last Taken Unknown] insulin lispro 100 unit/mL subcutaneous pen 15 unit SC TIDCM ml 01/05/21 [History Last Taken Unknown] latanoprost 0.005 % eye drops 1 drp EACH EYE QHS 01/05/21 [History Last Taken Unknown] sennosides 8.6 mg capsule 8.6 mg PO BID 01/05/21 [History Last Taken Unknown] amlodipine 5 mg PO DAILY tablet 01/23/21 [Rx Last Taken Unknown] bisacodyl [Dulcolax (bisacodyl)] 5 mg PO BID PRN 04/02/21 [History Last Taken Unknown] magnesium hydroxide [Milk of Magnesia] 400 mg PO DAILY PRN 04/02/21 [History Last Taken Unknown] polyethylene glycol 3350 [Miralax] 17 g PO DAILY PRN 04/02/21 [History Last Taken Unknown] insulin glargine [Lantus Solostar U-100 Insulin] 35 units SUBCUT BID #1 ml 04/09/21 [Rx Last Taken Unknown] rivaroxaban [Xarelto] 15 mg PO DINNER #1 tab 04/09/21 [Rx Last Taken Unknown] cetirizine [Zyrtec] 10 mg PO DAILY 05/26/21 [History Last Taken Unknown] donepezil [Aricept] 10 mg PO DAILY 05/26/21 [History Last Taken Unknown] levothyroxine [Synthroid] 50 mcg PO DAILY 05/26/21 [History Last Taken Unknown] memantine 10 mg PO BID 05/26/21 [History Last Taken Unknown] potassium chloride 20 meq PO MOWEFR 05/26/21 [History Last Taken Unknown] trazodone 50 mg PO QHS 05/26/21 [History Last Taken Unknown] Allergy/AdvReac Type Severity Reaction Status Date / Time atorvastatin calcium Allergy dont Verified 05/26/21 17:05 [From Lipitor] remember codeine Allergy Rash Verified 05/26/21 17:05 iodine Allergy Rash Verified 05/26/21 17:05 Latex, Natural Rubber Allergy Rash Verified 05/26/21 17:05 lovastatin Allergy Rash Verified 05/26/21 17:05 rosuvastatin calcium Allergy rash\ Verified 05/26/21 17:05 [From Crestor] tositumomab Allergy PT UNSURE Verified 05/26/21 17:05 OF REACTION naproxen [From Naprosyn] AdvReac Upset Verified 05/26/21 17:05 Stomach pregabalin [From Lyrica] AdvReac Upset Verified 05/26/21 17:05 Stomach Sulfa (Sulfonamide AdvReac Upset Verified 05/26/21 17:05 Antibiotics) Stomach Family History Other Cancer Surgical History History of coronary artery stent placement (01/25/11) History of hysterectomy History of left heart catheterization (04/04/21) History of loop recorder (2013) History of permanent cardiac pacemaker placement (03/05/17) History of thyroidectomy Social History household members: none housing: group home Smoking Status: Former smoker details: Not presently substance use type: does not use ROS ROS Narrative Review of systems otherwise negative from a constitutional, HEENT, respiratory, cardiovascular, GI, genitourinary, musculoskeletal, skin, neurologic, psychiatric and hematologic system unless stated above. Physical Exam Const alert, oriented x3 and no apparent distress General Appearance: cooperative and comfortable HEENT normocephalic and head/scalp atraumatic Neck supple Neck Narrative: Large neck circumference General: trachea midline Resp normal respiratory effort Effort and Inspection: able to speak in complete sentences and symmetric chest movement Auscultation: rales right mid and diminished lung sounds; Negative for rhonchi or wheezes Cardio regular rate, S1 normal heart sound and S2 normal heart sound Rhythm: abnormal rhythm GI normal to inspection, nondistended, normoactive bowel sounds GI Narrative: Obesity distention Extremity General Extremity: edema bilateral lower extremity (1-2+ pitting) Details: mild; Negative for clubbing or cyanosis Skin no rashes or lesions noted Skin Narrative: Small open area left claros, otherwise skin intact Neuro CN's II-XII intact bilaterally and no focal motor deficits Psych mental status grossly normal Psych Narrative: Tearful when talking about her friend, otherwise very talkative and engaged Appearance: grossly normal Speech: normal speech Thought Content: No hallucination(s)
--- NOTE | 2021-05-30 13:49 | CASEMGMT ---
SW re-faxed PT/OT evaluations and a face sheet to [facility] per their request. Tonja Benavidez ORDER ENTRY SPECIALIST DROP COUNT ASSOCIATE
--- NOTE | 2021-05-30 14:31 | PCM.PN.HOSP ---
Subjective Subjective Breathing well. Taken off oxygen and has no current complaints. Objective Data Objective Data Vital Signs: Vital Signs Temp Pulse Resp BP Pulse Ox 36.8 C 103 H 18 108/64 94 05/30/21 09:00 05/30/21 12:13 05/30/21 09:00 05/30/21 09:00 05/30/21 09:00 Oxygen Flow Rate (L/min) 2 Oxygen Delivery Method Room Air Weight: 99.2 kg Body Mass Index (BMI) 43.1 Intake & Output: Intake and Output for Last 24 Hours 05/28/21 05/29/21 05/30/21 23:59 23:59 23:59 Intake Total 2219.75 / 2219.75 570 / 570 680 / 680 Output Total 5300 / 5300 2550 / 2550 300 / 300 Balance -3080.25 / -3080.25 -1979 / 380 / 380 Lab / Micro Data Result Diagrams: 05/30/21 04:50 05/30/21 04:50 Labs: Laboratory Results - last 24 hr 05/29/21 08:18: POC Glucose 188 H 05/29/21 15:13: POC Glucose 223 H 05/29/21 16:39: POC Glucose 213 H 05/29/21 20:57: POC Glucose 247 H 05/30/21 04:50: WBC 11.4 H, RBC 4.26, Hgb 10.4 L, Hct 34.7 L, MCV 81.5, MCH 24.4 L, MCHC 30.0 L, RDW Std Deviation 46.1 H, RDW Coeff of Candace 15.4 H, Plt Count 251, MPV 11.4, Immature Gran % (Auto) 0.500, Neut % (Auto) 73.4 H, Lymph % (Auto) 13.7 L, [place] % (Auto) 9.1, Eos % (Auto) 2.5, Baso % (Auto) 0.8, Absolute Neuts (auto) 8.4 H, Absolute Lymphs (auto) 1.56, Nucleated RBC % 0 05/30/21 04:50: Sodium 139, Potassium 3.3 L, Chloride 99, Carbon Dioxide 33.0 H, Anion Gap 7, BUN 32 H, Creatinine 1.26 H, Estim Creat Clear Calc 28.22, Est GFR (MDRD) Af Amer 53 L, Est GFR (MDRD) Non-Af 44 L, BUN/Creatinine Ratio 25.4 H, Glucose 216 H, Calcium 8.9, Total Bilirubin 0.60, AST 28, ALT 20, Alkaline Phosphatase 139 H, Total Protein 7.3, Albumin 2.7 L, Globulin 4.6 H, Albumin/Globulin Ratio 0.6 L 05/30/21 07:21: POC Glucose 183 H 05/30/21 11:06: POC Glucose 297 H Micro: Microbiology 05/28/21 14:30 Blood Culture (Wb) - Anticubital Right Blood Culture - Preliminary No growth in 48 hours. 05/28/21 14:30 Blood Culture (Wb) - Anticubital Left Blood Culture - Preliminary No growth in 48 hours. 05/27/21 00:55 Urine Catheter - Douglas Urine Culture - Final Culture exhibits no growth. 05/26/21 17:34 Blood Culture (Wb) - Right Wrist Bacteria Detection (PCR) - Final Streptococcus agalactiae (B) 05/26/21 17:34 Blood Culture (Wb) - Right Wrist Blood Culture - Final Streptococcus agalactiae (B) 05/26/21 17:15 Blood Culture (Wb) - Anticubital Left Blood Culture - Final Streptococcus agalactiae (B) 05/27/21 01:00 Mucosa - Nasopharyngeal Respiratory Panel (PCR) - Final 05/27/21 00:55 Urine Catheter - Douglas Legionella Antigen - Final 05/27/21 00:55 Urine Catheter - Douglas Streptococcus pneumoniae Antigen (M - Final 05/26/21 17:25 Mucosa - Nose SARS-CoV-2 Antigen (Rapid) - Final Physical Exam Const alert Nutritional Appearance: obese morbidly obese HEENT Head and Scalp: normocephalic Resp normal respiratory effort, no retractions, no use of accessory muscles and clear to auscultation bilaterally Cardio regular rate, regular rhythm, S1 normal heart sound and S2 normal heart sound GI normal to inspection, nondistended, normoactive bowel sounds, soft to palpation, non-tender and non-distended Extremity Extremity Narrative: Edema in lower extremities Assessment & Plan Assessment/Plan (1) Sepsis: QUALIFIERS: Sepsis type: Streptococcus group B Sepsis acute organ dysfunction status: without acute organ dysfunction Qualified Code(s): A40.1 - Sepsis due to streptococcus, group B (2) Bacteremia: (3) (HFpEF) heart failure with preserved ejection fraction: QUALIFIERS: Heart failure chronicity: acute Qualified Code(s): I50.31 - Acute diastolic (congestive) heart failure PLAN: 1. Sepsis 2/2 Group B Strep bacteremia 2. Group B Strep bacteremia unclear source repeat BCx thus far negative echo unremarkable on cefazolin which was started on the . Continue with antibiotics for a total of 10 days. 3. Acute HFpEF EF 65% from 05/28/2021 continue IV furosemide 4. CKD IIIB I do not see GRIS, therefore, ruled out monitor nephrology following 5. DM2 BGT up to 297. Continue glargine and SSI 6. VTE prophylaxis: already anticoagulated 7. Debility: Patient plan is to go to [facility]. Anticipate pt will be ready on 05/31 Charges/Coding Visit Charges Inpatient E&M: 95836 Subs Hosp L2
[2021-05-30] MEDS: Rivaroxaban 15 MG Tablet PO (17:03)
[2021-05-30 17:11] LABS: Bedside Glucose 300 mg/dL (70-110)
[2021-05-30] MEDS: Atorvastatin Calcium 20 MG Tablet PO (23:04)
[2021-05-30] MEDS: Latanoprost 0.005% 1 Bottle 1 DRP OPHTHALMIC (23:05)
[2021-05-31] VITALS (13 sets, daily range): BP systolic 121–136; BP diastolic 54–66; PULSE 69–112; RESP 18–20; TEMP 36.6–36.9; O2SAT 90–96
[2021-05-31 00:36] LABS: Bedside Glucose 251 mg/dL (70-110)
[2021-05-31] MEDS: Cefazolin 2 GM in 0.9% Normal Saline 100 ML IV ×3 (05:03→21:26)
[2021-05-31] MEDS: Levothyroxine 50 MCG Tablet PO (05:03)
[2021-05-31 06:31] LABS: Anion Gap 6 (5-15); BUN 32 mg/dL (7-18); Calcium,Total 9.1 mg/dL (8.5-10.1); Chloride 104 mmol/L (98-107); Creatinine, Serum 1.28 mg/dL (0.55-1.02); EST Glomerular Filtration Rate 43 mL/min (>60); Est Glom Filt Rate - Afr Amer 52 mL/min (>60); Estimated Creatinine Clearance 27.77 ml/min; Glucose 199 mg/dL (74-106); Potassium 3.3 mmol/L (3.5-5.1); Sodium Level 140 mmol/L (136-145)
[2021-05-31] MEDS: Insulin Lispro 100 UNIT/ML INSULN.PEN SC ×4 (06:35→21:27)
[2021-05-31 06:45] LABS: Bedside Glucose 202 mg/dL (70-110)
--- NOTE | 2021-05-31 09:17 | PCM.PN.CARD ---
Subjective Subjective Patient seen and evaluated. Appears to be doing better at this time. Objective Data Vital Signs: Vital Signs Temp Pulse Resp BP Pulse Ox 98.3 F 97 18 136/66 H 94 05/31/21 05:06 05/31/21 05:06 05/31/21 05:06 05/31/21 05:06 05/31/21 08:30 Oxygen Flow Rate (L/min) 2 Oxygen Delivery Method Room Air Weight: 219 lb 9.286 oz Body Mass Index (BMI) 43.1 Intake & Output: Intake and Output for Last 24 Hours 05/29/21 05/30/21 05/31/21 23:59 23:59 23:59 Intake Total 570 / 570 1390 / 1500 280 / 280 Output Total 2550 / 2550 300 / 300 Balance -1979 / 1090 / 1200 280 / 280 Lab / Micro Data Result Diagrams: 05/30/21 04:50 05/31/21 05:24 Labs: Laboratory Results - last 24 hr 05/30/21 11:06: POC Glucose 297 H 05/30/21 17:01: POC Glucose 300 H 05/30/21 23:01: POC Glucose 251 H 05/31/21 05:24: Sodium 140, Potassium 3.3 L, Chloride 104, Carbon Dioxide 30.0, Anion Gap 6, BUN 32 H, Creatinine 1.28 H, Estim Creat Clear Calc 27.77, Est GFR (MDRD) Af Amer 52 L, Est GFR (MDRD) Non-Af 43 L, BUN/Creatinine Ratio 25.0 H, Glucose 199 H, Calcium 9.1 05/31/21 06:33: POC Glucose 202 H Micro: Microbiology 05/30/21 19:45 Stool C. difficile DNA Amplification - Final 05/28/21 14:30 Blood Culture (Wb) - Anticubital Right Blood Culture - Preliminary No growth in 48 hours. 05/28/21 14:30 Blood Culture (Wb) - Anticubital Left Blood Culture - Preliminary No growth in 48 hours. Cardiology Labs/Tests 05/31/21 05:24: Sodium 140, Potassium 3.3 L, Chloride 104, Carbon Dioxide 30.0, Anion Gap 6, BUN 32 H, Creatinine 1.28 H, Est GFR (MDRD) Af Amer 52 L, Est GFR (MDRD) Non-Af 43 L, BUN/Creatinine Ratio 25.0 H, Glucose 199 H, Calcium 9.1 Rhythm: EKG: ECHO: 05/28/2021 Normal LV size. Left ventricular systolic function is hyperdynamic. The estimated ejection fraction is 65 %. Mild concentric left ventricular hypertrophy. ICD or pacer leads identified within the right ventricle. Contrast injection was performed. Stress Test: Cardiac Cath: 04/05/2021: DOMINANCE: Right Dominant LEFT HEART ASSESSMENT Left Ventricular Ejection Fraction: by LV Gram 70 % Normal LV wall motion Normal Left Ventricular systolic function LEFT MAIN: Mild calcification, No significant disease noted LEFT ANTERIOR DESCENDING ARTERY: Previously placed stent is patent, Mild luminal irregularities less than 30% CIRCUMFLEX ARTERY: Mild luminal irregularities less than 30% MID CIRC: Previously placed stent is patent RIGHT CORONARY ARTERY: Mild luminal irregularities less than 30% Physical Exam Const oriented x3 and healthy appearing General Appearance: lethargic Orientation / Consciousness: awake HEENT normocephalic and head/scalp atraumatic Eyes PERRL, EOMs intact bilaterally and conjunctivae normal Neck supple, no JVD and no carotid bruits Chest inspection of chest normal Resp normal respiratory effort and clear to auscultation bilaterally Auscultation: diminished lung sounds diffuse Cardio regular rate, regular rhythm, S1 normal heart sound and S2 normal heart sound Palpation: normal PMI Rate: regular rate Rhythm: regular rhythm Heart Sounds: S1 normal, S2 normal and murmur systolic III/ harsh left sternal border Peripheral Pulses: pulses 2+ throughout GI normal to inspection, nondistended, normoactive bowel sounds Extremity normal to inspection and no clubbing, cyanosis or edema General Extremity: edema bilateral lower extremity Psych mental status grossly normal Assessment & Plan Assessment/Plan (1) Acute exacerbation of congestive heart failure: QUALIFIERS: Heart failure type: diastolic Qualified Code(s): I50.33 - Acute on chronic diastolic (congestive) heart failure PLAN: The patient appears to present with acute on chronic CHF: Heart failure with preserved ejection fraction. She appears to doing well on the current medical therapy. She will continue with diuretic therapy In talking with Dtr and pt it appears she was not taking her medications as prescribed in the [place], encouraged medication compliance on an OP basis. (2) CAD (coronary artery disease): QUALIFIERS: Associated angina: with unstable angina Coronary Disease-Associated Artery/Lesion type: [place] artery [place] vs. transplanted heart: [place] heart Qualified Code(s): I25.110 - Atherosclerotic heart disease of [place] coronary artery with unstable angina pectoris PLAN: The patient has a history of CAD. She underwent a repeat evaluation which demonstrated patency of her stents in the LAD and mild disease in the circumflex artery and right coronary artery. Ejection fraction was preserved. (3) History of coronary artery stent placement: PLAN: The patient has history of previous PCI. Recent evaluation demonstrated patency of her previously placed stents. No changes will be made with regard to her therapy. (4) Moderate aortic stenosis: PLAN: The patient has been evaluated noninvasively and invasively in the past.At the present time she was found to have evidence, based upon her most recent transthoracic echocardiogram, of moderate aortic valve stenosis. Her aortic valve area was estimated to be 0.9 cm?. (5) Sick sinus syndrome: PLAN: The patient has a history of sick sinus syndrome and is status post permanent pacemaker placement. (6) History of permanent cardiac pacemaker placement: PLAN: The patient's pacemaker has been followed as an outpatient. It has been functioning appropriately. She will be reminded on the follow up appts in our office. (7) Hyperlipidemia: QUALIFIERS: Hyperlipidemia type: unspecified Qualified Code(s): E78.5 - Hyperlipidemia, unspecified PLAN: The patient should continue risk factor evaluation care as she is able. (8) Essential (primary) hypertension: PLAN: The patient's blood pressure will need to be followed with adjustments as needed based upon her clinical condition, renal function, etc. Charges/Coding Visit Charges Inpatient E&M: 71304 Subs Hosp L2
--- NOTE | 2021-05-31 09:19 | CASEMGMT ---
Addendum entered by Tonja Benavidez 05/31/21 10:03: [facility] called and spoke with Cesia and they did get the information [facility] faxed. They are starting the pre-cert. Plan: d/c to [facility] pending insurance approval. Tonja Benavidez MENTAL HEALTH UNIT LEAD PSYCHOLOGIST ELECTRONIC OPERATOR Original Note: [facility] has had problems getting faxes to go through to [facility]. [facility] faxed PT/OT and face sheet yesterday to get pre-cert started which SW thought was already started. [facility]AL re-faxed PT/OT and face sheet this am to [facility]. Tonja Benavidez MENTAL HEALTH UNIT LEAD PSYCHOLOGIST ELECTRONIC OPERATOR
--- NOTE | 2021-05-31 09:22 | PCM.PN.REN ---
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 Objective Data Objective Data Vital Signs: Vital Signs Temp Pulse Resp BP Pulse Ox 98.3 F 97 18 136/66 H 94 05/31/21 05:06 05/31/21 05:06 05/31/21 05:06 05/31/21 05:06 05/31/21 08:30 Oxygen Flow Rate (L/min) 2 Oxygen Delivery Method Room Air Weight: 99.6 kg Body Mass Index (BMI) 43.1 Intake & Output: Intake and Output for Last 24 Hours 05/29/21 05/30/21 05/31/21 23:59 23:59 23:59 Intake Total 570 / 570 1390 / 1500 280 / 280 Output Total 2550 / 2550 300 / 300 Balance -1979 / 1090 / 1200 280 / 280 Lab / Micro Data Result Diagrams: 05/30/21 04:50 05/31/21 05:24 Labs: Laboratory Results - last 24 hr 05/30/21 11:06: POC Glucose 297 H 05/30/21 17:01: POC Glucose 300 H 05/30/21 23:01: POC Glucose 251 H 05/31/21 05:24: Sodium 140, Potassium 3.3 L, Chloride 104, Carbon Dioxide 30.0, Anion Gap 6, BUN 32 H, Creatinine 1.28 H, Estim Creat Clear Calc 27.77, Est GFR (MDRD) Af Amer 52 L, Est GFR (MDRD) Non-Af 43 L, BUN/Creatinine Ratio 25.0 H, Glucose 199 H, Calcium 9.1 05/31/21 06:33: POC Glucose 202 H Micro: Microbiology 05/30/21 19:45 Stool C. difficile DNA Amplification - Final 05/28/21 14:30 Blood Culture (Wb) - Anticubital Right Blood Culture - Preliminary No growth in 48 hours. 05/28/21 14:30 Blood Culture (Wb) - Anticubital Left Blood Culture - Preliminary No growth in 48 hours. 05/27/21 00:55 Urine Catheter - Douglas Urine Culture - Final Culture exhibits no growth. 05/26/21 17:34 Blood Culture (Wb) - Right Wrist Bacteria Detection (PCR) - Final Streptococcus agalactiae (B) 05/26/21 17:34 Blood Culture (Wb) - Right Wrist Blood Culture - Final Streptococcus agalactiae (B) 05/26/21 17:15 Blood Culture (Wb) - Anticubital Left Blood Culture - Final Streptococcus agalactiae (B) 05/27/21 01:00 Mucosa - Nasopharyngeal Respiratory Panel (PCR) - Final 05/27/21 00:55 Urine Catheter - [place] Legionella Antigen - Final 05/27/21 00:55 Urine Catheter - [place] Streptococcus pneumoniae Antigen (M - Final 05/26/21 17:25 Mucosa - Nose SARS-CoV-2 Antigen (Rapid) - Final Physical Exam Narrative General: No acute distress. Neck: Supple, no visible JVD. Heart: Normal S1, S2. Tach and irregular. Lungs: CTA Abdomen: Normal bowel sound, soft, nontender, no guarding or rebound. Extremity: +1 edema of lower extremities. Neurological: No focal neurologic deficits. Skin: Erythema of the anterior portion of the left lower extremity. Otherwise, there is no rash. Skin is warm and dry. Assessment & Plan Assessment/Plan (1) GRIS (acute kidney injury): PLAN: From cardiorenal renal syndrome kidney function improved to baseline with diuresis. Serum creatinine is stable1.2. No accurate output yesterday Will switch diuretic to torsemide 40 mg PO BID We will monitor renal function while the patient is being diuresed. Check RFP in am if remains inpatient (2) Chronic kidney disease, stage 3b: PLAN: Baseline serum creatinine is 1.2 to 1.3 mg/dL. I suspect that the patient has diabetic kidney disease. She has has a persistent glucosuria and proteinuria on prior urinalysis. . (3) HTN (hypertension): QUALIFIERS: Hypertension type: secondary to endocrine disorders Qualified Code(s): I15.2 - Hypertension secondary to endocrine disorders PLAN: The patient is on amlodipine only for blood pressure control at this point. Diuresis will also help with BP. We will monitor blood pressure. (4) Acute hypoxemic respiratory failure: PLAN: The patient was treated for both congestive heart failure and possible lower respiratory tract infection. She is getting Lasix . I will continue to monitor renal function while she is being diuresed. finished Abx. She is on room air
[2021-05-31] MEDS: Fluticasone 0.05% 1 SPRAY NASAL.SRY 2 SPRAY NASAL (10:16)
[2021-05-31] MEDS: Pantoprazole Sodium 40 MG Tablet PO (10:16)
[2021-05-31] MEDS: Furosemide 80 MG Tablet PO ×2 (10:16→21:27)
[2021-05-31] MEDS: Isosorbide Mononitrate 60 MG Tablet PO (10:16)
[2021-05-31] MEDS: levETIRAcetam 500 MG Tablet PO ×2 (10:17→21:27)
[2021-05-31] MEDS: Ipratropium/Albuterol Sulfate 3 ML AMPUL.NEB INHALATION ×2 (11:03→20:16)
[2021-05-31 11:26] LABS: Bedside Glucose 268 mg/dL (70-110)
--- NOTE | 2021-05-31 15:49 | PCM.PN.CARD ---
Subjective Subjective Patient seen and evaluated. Appears to be doing quite well. Objective Data Vital Signs: Vital Signs Temp Pulse Resp BP Pulse Ox 98.3 F 94 18 123/54 H 94 05/31/21 15:31 05/31/21 15:31 05/31/21 15:31 05/31/21 15:31 05/31/21 15:31 Oxygen Flow Rate (L/min) 2 Oxygen Delivery Method Room Air Weight: 219 lb 9.286 oz Body Mass Index (BMI) 43.1 Intake & Output: Intake and Output for Last 24 Hours 05/29/21 05/30/21 05/31/21 23:59 23:59 23:59 Intake Total 570 / 570 1390 / 1500 280 / 280 Output Total 2550 / 2550 300 / 300 Balance -1979 / 1090 / 1200 280 / 280 Lab / Micro Data Result Diagrams: 05/30/21 04:50 05/31/21 05:24 Labs: Laboratory Results - last 24 hr 05/30/21 17:01: POC Glucose 300 H 05/30/21 23:01: POC Glucose 251 H 05/31/21 05:24: Sodium 140, Potassium 3.3 L, Chloride 104, Carbon Dioxide 30.0, Anion Gap 6, BUN 32 H, Creatinine 1.28 H, Estim Creat Clear Calc 27.77, Est GFR (MDRD) Af Amer 52 L, Est GFR (MDRD) Non-Af 43 L, BUN/Creatinine Ratio 25.0 H, Glucose 199 H, Calcium 9.1 05/31/21 06:33: POC Glucose 202 H 05/31/21 11:16: POC Glucose 268 H Micro: Microbiology 05/30/21 19:45 Stool C. difficile DNA Amplification - Final 05/28/21 14:30 Blood Culture (Wb) - Anticubital Right Blood Culture - Preliminary No growth in 48 hours. 05/28/21 14:30 Blood Culture (Wb) - Anticubital Left Blood Culture - Preliminary No growth in 48 hours. Cardiology Labs/Tests 05/31/21 05:24: Sodium 140, Potassium 3.3 L, Chloride 104, Carbon Dioxide 30.0, Anion Gap 6, BUN 32 H, Creatinine 1.28 H, Est GFR (MDRD) Af Amer 52 L, Est GFR (MDRD) Non-Af 43 L, BUN/Creatinine Ratio 25.0 H, Glucose 199 H, Calcium 9.1 Rhythm: EKG: ECHO: Stress Test: Cardiac Cath: PCI: CT Surgery: Holter monitor: EPS: PPM: CXR: Chest CT Scan: Assessment & Plan Assessment/Plan (1) Acute exacerbation of congestive heart failure: QUALIFIERS: Heart failure type: diastolic Qualified Code(s): I50.33 - Acute on chronic diastolic (congestive) heart failure PLAN: The patient appears to present with acute on chronic CHF: Heart failure with preserved ejection fraction. She appears to doing well on the current medical therapy. She will continue with diuretic therapy In talking with Dtr and pt it appears she was not taking her medications as prescribed in the [place], encouraged medication compliance on an OP basis. (2) CAD (coronary artery disease): QUALIFIERS: Coronary Disease-Associated Artery/Lesion type: [place] artery [place] vs. transplanted heart: [place] heart Associated angina: with unstable angina Qualified Code(s): I25.110 - Atherosclerotic heart disease of [place] coronary artery with unstable angina pectoris PLAN: The patient has a history of CAD. She underwent a repeat evaluation which demonstrated patency of her stents in the LAD and mild disease in the circumflex artery and right coronary artery. Ejection fraction was preserved. (3) History of coronary artery stent placement: PLAN: The patient has history of previous PCI. Recent evaluation demonstrated patency of her previously placed stents. No changes will be made with regard to her therapy. (4) Moderate aortic stenosis: PLAN: The patient has been evaluated noninvasively and invasively in the past.At the present time she was found to have evidence, based upon her most recent transthoracic echocardiogram, of moderate aortic valve stenosis. Her aortic valve area was estimated to be 0.9 cm?. (5) Sick sinus syndrome: PLAN: The patient has a history of sick sinus syndrome and is status post permanent pacemaker placement. (6) History of permanent cardiac pacemaker placement: PLAN: The patient's pacemaker has been followed as an outpatient. It has been functioning appropriately. She will be reminded on the follow up appts in our office. (7) Hyperlipidemia: QUALIFIERS: Hyperlipidemia type: unspecified Qualified Code(s): E78.5 - Hyperlipidemia, unspecified PLAN: The patient should continue risk factor evaluation care as she is able. (8) Essential (primary) hypertension: PLAN: The patient's blood pressure will need to be followed with adjustments as needed based upon her clinical condition, renal function, etc.
[2021-05-31] MEDS: Rivaroxaban 15 MG Tablet PO (16:19)
[2021-05-31 16:31] LABS: Bedside Glucose 225 mg/dL (70-110)
--- NOTE | 2021-05-31 17:11 | PCM.PN.HOSP ---
Subjective Subjective Feeling well. No current complaints. Objective Data Objective Data Vital Signs: Vital Signs Temp Pulse Resp BP Pulse Ox 36.8 C 94 18 123/54 H 94 05/31/21 15:31 05/31/21 15:31 05/31/21 15:31 05/31/21 15:31 05/31/21 15:31 Oxygen Flow Rate (L/min) 2 Oxygen Delivery Method Room Air Weight: 99.6 kg Body Mass Index (BMI) 43.1 Intake & Output: Intake and Output for Last 24 Hours 05/29/21 05/30/21 05/31/21 23:59 23:59 23:59 Intake Total 570 / 570 1390 / 1500 390 / 390 Output Total 2550 / 2550 300 / 300 Balance -1979 / -1979 1090 / 1200 390 / 390 Lab / Micro Data Result Diagrams: 05/30/21 04:50 05/31/21 05:24 Labs: Laboratory Results - last 24 hr 05/30/21 17:01: POC Glucose 300 H 05/30/21 23:01: POC Glucose 251 H 05/31/21 05:24: Sodium 140, Potassium 3.3 L, Chloride 104, Carbon Dioxide 30.0, Anion Gap 6, BUN 32 H, Creatinine 1.28 H, Estim Creat Clear Calc 27.77, Est GFR (MDRD) Af Amer 52 L, Est GFR (MDRD) Non-Af 43 L, BUN/Creatinine Ratio 25.0 H, Glucose 199 H, Calcium 9.1 05/31/21 06:33: POC Glucose 202 H 05/31/21 11:16: POC Glucose 268 H 05/31/21 16:15: POC Glucose 225 H Micro: Microbiology 05/30/21 19:45 Stool C. difficile DNA Amplification - Final 05/28/21 14:30 Blood Culture (Wb) - Anticubital Right Blood Culture - Preliminary No growth in 48 hours. 05/28/21 14:30 Blood Culture (Wb) - Anticubital Left Blood Culture - Preliminary No growth in 48 hours. 05/27/21 00:55 Urine Catheter - Douglas Urine Culture - Final Culture exhibits no growth. 05/26/21 17:34 Blood Culture (Wb) - Right Wrist Bacteria Detection (PCR) - Final Streptococcus agalactiae (B) 05/26/21 17:34 Blood Culture (Wb) - Right Wrist Blood Culture - Final Streptococcus agalactiae (B) 05/26/21 17:15 Blood Culture (Wb) - Anticubital Left Blood Culture - Final Streptococcus agalactiae (B) 05/27/21 01:00 Mucosa - Nasopharyngeal Respiratory Panel (PCR) - Final 05/27/21 00:55 Urine Catheter - Douglas Legionella Antigen - Final 05/27/21 00:55 Urine Catheter - [place] Streptococcus pneumoniae Antigen (M - Final 05/26/21 17:25 Mucosa - Nose SARS-CoV-2 Antigen (Rapid) - Final Physical Exam Const alert Resp normal respiratory effort, no retractions, no use of accessory muscles and clear to auscultation bilaterally Cardio regular rate, regular rhythm, S1 normal heart sound and S2 normal heart sound GI normal to inspection, nondistended, normoactive bowel sounds, soft to palpation, non-tender and non-distended Extremity normal to inspection Neuro oriented x3 Sensorium / Orientation: awake and alert Assessment & Plan Assessment/Plan (1) Acute exacerbation of congestive heart failure: QUALIFIERS: Heart failure type: diastolic Qualified Code(s): I50.33 - Acute on chronic diastolic (congestive) heart failure (2) CAD (coronary artery disease): QUALIFIERS: Coronary Disease-Associated Artery/Lesion type: [place] artery [place] vs. transplanted heart: [place] heart Associated angina: with unstable angina Qualified Code(s): I25.110 - Atherosclerotic heart disease of [place] coronary artery with unstable angina pectoris (3) History of coronary artery stent placement: (4) Moderate aortic stenosis: (5) Sick sinus syndrome: (6) History of permanent cardiac pacemaker placement: (7) Hyperlipidemia: QUALIFIERS: Hyperlipidemia type: unspecified Qualified Code(s): E78.5 - Hyperlipidemia, unspecified (8) Essential (primary) hypertension: PLAN: 1. Sepsis 2/2 Group B Strep bacteremia 2. Group B Strep bacteremia unclear source repeat BCx thus far negative echo unremarkable on cefazolin which was started on the . Continue with antibiotics for a total of 10 days. 3. Acute HFpEF EF 65% from 05/28/202105/31: changed to PO furosemide 4. Acute hypoxic respiratory failure POA now resolved and on RA 2/2 above 5. CKD IIIB I do not see GRIS, therefore, ruled out monitor nephrology following 6. DM2 BGT up to 297. Continue glargine and SSI 7. VTE prophylaxis: already anticoagulated 8. Debility: Patient plan is to go to [facility]. Awaiting on Precert. Medically stable for discharge. Charges/Coding Visit Charges Inpatient E&M: 91069 Subs Hosp L2
--- NOTE | 2021-05-31 17:33 | CHAPLAIN ---
Type of Pastoral Visit _x__ Initial Visit ___ Follow-up Visit ___ On-call Visit ___ General Patient Visit ___ Spiritual Assessment ___ Family Conference ___ Bereavement ___ Rapid Response ___ Code Blue ___ Other (describe below) Pastoral Care Referral From _x__ Patient ___ Family ___ Nurse ___ Physician ___ Network Systems Integrator ___ Master Merchandiser ___ Other (describe below) Sacrament/Intervention _x__ Active listening ___ Anointing ___ Methodist ___ Bereavement ___ Communion _x__ [place] ___ _x__ Life review _x__ Prayer ___ Reconciliation ___ Sacrament of Sick _x__ Supportive presence ___ Wedding ___ Other (describe below) Pastoral Comments patient had questions about heaven;
[2021-05-31] MEDS: Latanoprost 0.005% 1 Bottle 1 DRP OPHTHALMIC (21:26)
[2021-05-31] MEDS: Potassium Chloride Oral Tablet 20 MEQ 40 MEQ PO (21:27)
[2021-05-31] MEDS: Atorvastatin Calcium 20 MG Tablet PO (21:27)
[2021-05-31] MEDS: 0.9% Saline Lock 10 ML Syringe IV (21:28)
[2021-05-31 22:06] LABS: Bedside Glucose 381 mg/dL (70-110)
[2021-06-01] VITALS (17 sets, daily range): BP systolic 102–121; BP diastolic 55–68; PULSE 82–107; RESP 16–20; TEMP 36.6–36.9; O2SAT 92–98
--- NOTE | 2021-06-01 03:53 | EKG12_ITS ---
Test Reason : CP Blood Pressure : / mmHG Vent. Rate : 104 BPM Atrial Rate : 087 BPM P-R Int : 000 ms QRS Dur : 136 ms QT Int : 404 ms P-R-T Axes : 000 -46 -10 degrees QTc Int : 531 ms Atrial fibrillation Left axis deviation Right bundle branch block Abnormal ECG When compared with ECG of 26-MAY-2021 17:17, Atrial fibrillation has replaced Electronic ventricular pacemaker Vent. rate has increased BY 44 BPM Confirmed by TAM GALINDO, LORRAINE ([id number]), assistant editor WILLIS HAWKINS ([id number]) on 06/04/2021 1:17:37 PM Referred By: DR ETIENNE Confirmed By:LORRAINE TURCIOS MD
--- NOTE | 2021-06-01 03:55 | NURSING ---
Addendum entered by Iris Montaño 06/01/21 04:33: placed on 2lnc Original Note: RN called to room due to patient complaining of CP, ekg done sent to MD. Nitro given, will continue to monitor.
[2021-06-01] MEDS: Nitroglycerin (INPATIENT USE) 0.4 MG TAB.SUBL SL ×3 (04:13→04:29)
[2021-06-01] MEDS: Levothyroxine 50 MCG Tablet PO (04:28)
[2021-06-01 04:46] LABS: Bedside Glucose 291 mg/dL (70-110)
[2021-06-01] MEDS: Acetaminophen 325 MG Tablet 650 MG PO ×2 (04:47→21:11)
[2021-06-01] MEDS: Cefazolin 2 GM in 0.9% Normal Saline 100 ML IV (05:36)
[2021-06-01 06:11] LABS: Anion Gap 6 (5-15); BUN 29 mg/dL (7-18); Calcium,Total 8.9 mg/dL (8.5-10.1); Chloride 103 mmol/L (98-107); Creatinine, Serum 1.21 mg/dL (0.55-1.02); EST Glomerular Filtration Rate 46 mL/min (>60); Est Glom Filt Rate - Afr Amer 55 mL/min (>60); Estimated Creatinine Clearance 29.38 ml/min; Glucose 311 mg/dL (74-106); Potassium 3.8 mmol/L (3.5-5.1); Sodium Level 139 mmol/L (136-145)
[2021-06-01] MEDS: Insulin Lispro 100 UNIT/ML INSULN.PEN SC ×4 (06:29→21:05)
[2021-06-01 06:46] LABS: Bedside Glucose 260 mg/dL (70-110)
[2021-06-01] MEDS: Ipratropium/Albuterol Sulfate 3 ML AMPUL.NEB INHALATION ×3 (07:19→19:57)
--- NOTE | 2021-06-01 09:18 | PN.RENAL_ITS ---
Subjective Subjective No shortness of breath No chest pain. No nausea no vomiting Objective Data Objective Data Vital Signs: Vital Signs Temp Pulse Resp BP Pulse Ox 98.2 F 86 18 121/68 H 95 06/01/21 03:25 06/01/21 07:31 06/01/21 03:25 06/01/21 04:48 06/01/21 04:00 Oxygen Flow Rate (L/min) 2 Oxygen Delivery Method Room Air Weight: 99.8 kg Body Mass Index (BMI) 43.1 Intake & Output: Intake and Output for Last 24 Hours 05/30/21 05/31/21 06/01/21 23:59 23:59 23:59 Intake Total 1390 / 1500 600 / 600 110 / 110 Output Total 300 / 300 Balance 1090 / 1200 600 / 600 110 / 110 Lab / Micro Data Result Diagrams: 05/30/21 04:50 06/01/21 05:20 Labs: Laboratory Results - last 24 hr 05/31/21 11:16: POC Glucose 268 H 05/31/21 16:15: POC Glucose 225 H 05/31/21 21:24: POC Glucose 381 H 06/01/21 04:25: POC Glucose 291 H 06/01/21 05:20: Sodium 139, Potassium 3.8, Chloride 103, Carbon Dioxide 30.0, Anion Gap 6, BUN 29 H, Creatinine 1.21 H, Estim Creat Clear Calc 29.38, Est GFR (MDRD) Af Amer 55 L, Est GFR (MDRD) Non-Af 46 L, BUN/Creatinine Ratio 24.0 H, Glucose 311 H, Calcium 8.9 06/01/21 06:27: POC Glucose 260 H Micro: Microbiology 05/30/21 19:45 Stool C. difficile DNA Amplification - Final 05/28/21 14:30 Blood Culture (Wb) - Anticubital Right Blood Culture - Preli minary No growth in 48 hours. 05/28/21 14:30 Blood Culture (Wb) - Anticubital Left Blood Culture - Preliminary No growth in 48 hours. 05/27/21 00:55 Urine Catheter - Douglas Urine Culture - Final Culture exhibits no growth. 05/26/21 17:34 Blood Culture (Wb) - Right Wrist Bacteria Detection (PCR) - Final Streptococcus agalactiae (B) 05/26/21 17:34 Blood Culture (Wb) - Right Wrist Blood Culture - Final Streptococcus agalactiae (B) 05/26/21 17:15 Blood Culture (Wb) - Anticubital Left Blood Culture - Final Streptococcus agalactiae (B) 05/27/21 01:00 Mucosa - Nasopharyngeal Respiratory Panel (PCR) - Final 05/27/21 00:55 Urine Catheter - Douglas Legionella Antigen - Final 05/27/21 00:55 Urine Catheter - Douglas Streptococcus pneumoniae Antigen (M - Final 05/26/21 17:25 Mucosa - Nose SARS-CoV-2 Antigen (Rapid) - Final Physical Exam Narrative General: No acute distress. Neck: Supple, no visible JVD. Heart: Normal S1, S2. Regular rate and irregular. Lungs: CTA Abdomen: Normal bowel sound, soft, nontender, no guarding or rebound. Extremity: +1 edema of lower extremities. Neurological: No focal neurologic deficits. Assessment & Plan Assessment/Plan (1) GRIS (acute kidney injury): PLAN: From cardiorenal renal syndrome kidney function improved to baseline with diuresis. Serum creatinine is stable1.2. No accurate output yesterday Continue Lasix 80 mg p.o. twice daily We will monitor renal function while the patient is being diuresed. Check RFP in am if remains inpatient (2) Chronic kidney disease, stage 3b: PLAN: Baseline serum creatinine is 1.2 to 1.3 mg/dL. I suspect that the patient has diabetic kidney disease. She has has a persistent glucosuria and proteinuria on prior urinalysis. . (3) HTN (hypertension): QUALIFIERS: Hypertension type: secondary to endocrine disorders Qualified Code(s): I15.2 - Hypertension secondary to endocrine disorders PLAN: The patient is on isosorbide mononitrate only for blood pressure control at this point. Diuresis will also help with BP. We will monitor blood pressure. (4) Acute hypoxemic respiratory failure: PLAN: The patient was treated for both congestive heart failure and possible lower respiratory tract infection. She is getting Lasix . I will continue to monitor renal function while she is being diuresed. finished Abx. She is on room air
[2021-06-01] MEDS: Potassium Chloride Oral Tablet 20 MEQ PO (09:36)
[2021-06-01] MEDS: Pantoprazole Sodium 40 MG Tablet PO (09:36)
[2021-06-01] MEDS: levETIRAcetam 500 MG Tablet PO ×2 (09:36→21:02)
--- NOTE | 2021-06-01 10:32 | PCS.PANDOC ---
PANDEMIC DOCUMENTATION INITIATED: Date: 05/28/2021 Time: 190
--- NOTE | 2021-06-01 11:16 | PN.HOSP_ITS ---
Subjective Subjective Feels fine. No current issues. Objective Data Objective Data Vital Signs: Vital Signs Temp Pulse Resp BP Pulse Ox 36.7 C 99 16 102/61 98 06/01/21 09:22 06/01/21 09:22 06/01/21 09:22 06/01/21 09:22 06/01/21 09:22 Oxygen Flow Rate (L/min) 2 Oxygen Delivery Method Nasal Cannula Weight: 99.8 kg Body Mass Index (BMI) 43.1 Intake & Output: Intake and Output for Last 24 Hours 05/30/21 05/31/21 06/01/21 23:59 23:59 23:59 Intake Total 1390 / 1500 600 / 600 110 / 110 Output Total 300 / 300 Balance 1090 / 1200 600 / 600 110 / 110 Lab / Micro Data Result Diagrams: 05/30/21 04:50 06/01/21 05:20 Labs: Laboratory Results - last 24 hr 05/31/21 11:16: POC Glucose 268 H 05/31/21 16:15: POC Glucose 225 H 05/31/21 21:24: POC Glucose 381 H 06/01/21 04:25: POC Glucose 291 H 06/01/21 05:20: Sodium 139, Potassium 3.8, Chloride 103, Carbon Dioxide 30.0, Anion Gap 6, BUN 29 H, Creatinine 1.21 H, Estim Creat Clear Calc 29.38, Est GFR (MDRD) Af Amer 55 L, Est GFR (MDRD) Non-Af 46 L, BUN/Creatinine Ratio 24.0 H, Glucose 311 H, Calcium 8.9 06/01/21 06:27: POC Glucose 260 H Micro: Microbiology 05/30/21 19:45 Stool C. difficile DNA Amplification - Final 05/28/21 14:30 Blood Culture (Wb) - Anticubital Right Blood Culture - Preliminary No growth in 48 hours. 05/28/21 14:30 Blood Culture (Wb) - Anticubital Left Blood Culture - Preliminary No growth in 48 hours. 05/27/21 00:55 Urine Catheter - Douglas Urine Culture - Final Culture exhibits no growth. 05/26/21 17:34 Blood Culture (Wb) - Right Wrist Bacteria Detection (PCR) - Final Streptococcus agalactiae (B) 05/26/21 17:34 Blood Culture (Wb) - Right Wrist Blood Culture - Final Streptococcus agalactiae (B) 05/26/21 17:15 Blood Culture (Wb) - Anticubital Left Blood Culture - Final Streptococcus agalactiae (B) 05/27/21 01:00 Mucosa - Nasopharyngeal Respiratory Panel (PCR) - Final 05/27/21 00:55 Urine Catheter - Douglas Legionella Antigen - Final 05/27/21 00:55 Urine Catheter - [place] Streptococcus pneumoniae Antigen (M - Final 05/26/21 17:25 Mucosa - Nose SARS-CoV-2 Antigen (Rapid) - Final Physical Exam Const alert Constitutional Narrative: Up in chair. Afebrile. Resp normal respiratory effort, no retractions, no use of accessory muscles and clear to auscultation bilaterally Cardio regular rate, regular rhythm, S1 normal heart sound and S2 normal heart sound GI normal to inspection, nondistended, normoactive bowel sounds, soft to palpation, non-tender and non-distended Assessment & Plan Assessment/Plan (1) Acute exacerbation of congestive heart failure: QUALIFIERS: Heart failure type: diastolic Qualified Code(s): I50.33 - Acute on chronic diastolic (congestive) heart failure (2) CAD (coronary artery disease): QUALIFIERS: Coronary Disease-Associated Artery/Lesion type: [place] artery [place] vs. transplanted heart: [place] heart Associated angina: with unstable angina Qualified Code(s): I25.110 - Atherosclerotic heart disease of [place] coronary artery with unstable angina pectoris (3) History of coronary artery stent placement: (4) Moderate aortic stenosis: (5) Sick sinus syndrome: (6) History of permanent cardiac pacemaker placement: (7) Hyperlipidemia: QUALIFIERS: Hyperlipidemia type: unspecified Qualified Code(s): E78.5 - Hyperlipidemia, unspecified (8) Essential (primary) hypertension: PLAN: 1. Sepsis 2/2 Group B Strep bacteremia 2. Group B Strep bacteremia unclear source repeat BCx thus far negative echo unremarkable on cefazolin which was started on the . Continue with antibiotics for a total of 10 days. Change to amoxicillin 3. Acute HFpEF EF 65% from 05/28/202105/31: changed to PO furosemide 4. Acute hypoxic respiratory failure POA now resolved and on RA 2/2 above 5. CKD IIIB I do not see GRIS, therefore, ruled out monitor nephrology following 6. DM2 BGT up to 297. Continue glargine and SSI 7. VTE prophylaxis: already anticoagulated 8. Debility: Patient plan is to go to [facility]. Awaiting on Precert. Medically stable for discharge. Charges/Coding Visit Charges Inpatient E&M: 02661 Subs Hosp L2
[2021-06-01] MEDS: Furosemide 80 MG Tablet PO ×2 (11:32→21:02)
[2021-06-01 11:51] LABS: Bedside Glucose 318 mg/dL (70-110)
[2021-06-01] MEDS: AMOXICILLIN 500 MG CAPSULE PO ×2 (13:31→21:02)
--- NOTE | 2021-06-01 15:18 | CASEMGMT ---
SW called [facility] and spoke with Mone. They still have not received approval for patient. Tonja Benavidez [employer]CHN[employer]
[2021-06-01] MEDS: Rivaroxaban 15 MG Tablet PO (16:55)
[2021-06-01 17:00] LABS: Bedside Glucose 407 mg/dL (70-110)
[2021-06-01] MEDS: Atorvastatin Calcium 20 MG Tablet PO (21:02)
[2021-06-01] MEDS: Latanoprost 0.005% 1 Bottle 1 DRP OPHTHALMIC (21:02)
[2021-06-01] MEDS: Fluticasone 0.05% 1 SPRAY NASAL.SRY 2 SPRAY NASAL (21:02)
[2021-06-02] VITALS (8 sets, daily range): BP systolic 114–141; BP diastolic 46–80; PULSE 60–101; RESP 16–18; TEMP 36.2–36.6; O2SAT 92–97
[2021-06-02 00:06] LABS: Bedside Glucose 311 mg/dL (70-110)
[2021-06-02] MEDS: Levothyroxine 50 MCG Tablet PO (06:43)
[2021-06-02] MEDS: AMOXICILLIN 500 MG CAPSULE PO ×3 (06:43→22:11)
[2021-06-02] MEDS: Insulin Lispro 100 UNIT/ML INSULN.PEN SC ×4 (06:44→22:12)
[2021-06-02 07:01] LABS: Bedside Glucose 260 mg/dL (70-110)
[2021-06-02] MEDS: Ipratropium/Albuterol Sulfate 3 ML AMPUL.NEB INHALATION ×2 (07:03→19:29)
[2021-06-02 07:24] LABS: Anion Gap 5 (5-15); BUN 26 mg/dL (7-18); BUN/Creat Ratio 24.5 RATIO (10-20); Calcium,Total 8.9 mg/dL (8.5-10.1); Chloride 103 mmol/L (98-107); Creatinine, Serum 1.06 mg/dL (0.55-1.02); EST Glomerular Filtration Rate 53 mL/min (>60); Est Glom Filt Rate - Afr Amer 65 mL/min (>60); Estimated Creatinine Clearance 33.54 ml/min; Glucose 255 mg/dL (74-106); Potassium 3.5 mmol/L (3.5-5.1); Sodium Level 140 mmol/L (136-145)
[2021-06-02] MEDS: Furosemide 80 MG Tablet PO ×2 (07:53→22:13)
[2021-06-02] MEDS: Isosorbide Mononitrate 60 MG Tablet PO (07:53)
[2021-06-02] MEDS: levETIRAcetam 500 MG Tablet PO ×2 (07:53→22:13)
[2021-06-02] MEDS: Pantoprazole Sodium 40 MG Tablet PO (07:53)
[2021-06-02] MEDS: Fluticasone 0.05% 1 SPRAY NASAL.SRY 2 SPRAY NASAL ×2 (07:54→22:10)
[2021-06-02] MEDS: Acetaminophen 325 MG Tablet 650 MG PO ×2 (07:57→13:35)
--- NOTE | 2021-06-02 09:51 | PCM.DC ---
Discharge Instructions Diet Discharge Diet: 2000 Calorie Control Diet and 6 Cup Fluid Restriction Dressing / Incision Call your doctor if you observe: Fever of 101 or Higher and Shortness of breath Follow Up Care Test Results: Test results from this visit will be discussed in further detail at your follow-up appointment, if applicable. Discharge Plan Admission Admit Date/Time: 05/26/21 21:11 Primary Reason for Your Visit: CHF, bacteremia Attending Provider: Antoine Muñiz Primary Care Provider: Emerita Gottlieb Consulting Providers: Jose Antonio Dorado ; Jon Lyon ; Truong Billy ; Adelita Anne NP ; Annelise Sprague Instructions Patient Instructions: ED Chest Pain, Noncardiac Discharge Orders/Prescriptions Prescriptions: New isosorbide mononitrate 60 mg Tablet Extended Release 24 Hr 60 mg PO DAILY Qty: 30 RF: 0 amoxicillin 500 mg Capsule 500 mg PO Q8 Qty: 15 RF: 0 furosemide 80 mg Tablet 80 mg PO BID Qty: 60 RF: 0 potassium chloride 10 mEq capsule, extended release 20 meq PO DAILY Qty: 30 RF: 0 Continued levetiracetam 500 mg tablet 500 mg PO BID RF: 0 atorvastatin 20 mg tablet 20 mg PO QHS RF: 0 bisacodyl 10 mg suppository 10 mg RC Q8 PRN (Reason: Constipation) RF: 0 latanoprost 0.005 % drops 1 drp EACH EYE QHS RF: 0 senna 8.6 mg capsule 8.6 mg PO BID RF: 0 prasugrel 10 MG tablet 10 mg PO DAILY RF: 0 duloxetine 30 MG capsule,delayed release(DR/EC) 30 mg PO DAILY RF: 0 omeprazole 20 MG capsule 20 mg PO DAILY RF: 0 acetaminophen 325 MG tablet 650 mg PO Q6H PRN PRN (Reason: Pain Score 1-10/Temp > 100.7 F) RF: 0 nitroglycerin 0.4 MG tablet, sublingual 0.4 mg SUBLINGUAL PRN PRN (Reason: chest pain) RF: 0 fluticasone propionate 1 SPRAY spray,suspension 2 spray NARES BID RF: 0 insulin lispro 100 unit/mL insulin pen 15 unit SC TIDCM RF: 0 polyethylene glycol 3350 [Miralax] 17 gram Powder In Packet 17 g PO DAILY PRN (Reason: Constipation) RF: 0 magnesium hydroxide [Milk of Magnesia] 400 mg/5 mL Suspension 400 mg PO DAILY PRN (Reason: Constipation) RF: 0 bisacodyl [Dulcolax (bisacodyl)] 5 mg Tablet,Delayed Release (Dr/Ec) 5 mg PO BID PRN (Reason: Constipation) RF: 0 Xarelto 15 mg Tablet 15 mg PO DINNER Qty: 1 RF: 0 trazodone 50 mg Tablet 50 mg PO QHS RF: 0 cetirizine [Zyrtec] 10 mg Tablet 10 mg PO DAILY RF: 0 donepezil [Aricept] 10 mg Tablet 10 mg PO DAILY RF: 0 levothyroxine [Synthroid] 50 mcg Tablet 50 mcg PO DAILY RF: 0 memantine 10 mg Tablet 10 mg PO BID RF: 0 potassium chloride 20 mEq Tablet Extended Release 20 meq PO MOWEFR RF: 0 Changed Lantus Solostar U-100 Insulin 100 unit/mL (3 mL) Insulin Pen 25 unit subcut BID Qty: 1 RF: 0 Discontinued furosemide 20 mg tablet 20 mg PO BID RF: 0 isosorbide mononitrate 30 MG tablet 90 mg PO DAILY RF: 0 amlodipine 5 MG tablet 5 mg PO DAILY RF: 0 No Action metoprolol succinate 50 MG tablet extended release 24 hr 50 mg PO DAILY RF: 0 Referrals / Follow Up: Emerita Gottlieb MD [Primary Care Provider] - Within 1 Week Jose Antonio Dorado MD [STAFF PHYSICIAN] - Within 1 Month Disposition Disposition (needs filled in before D/C Order can be placed): Home Health Service
--- NOTE | 2021-06-02 10:06 | PCM.DC.SUM ---
Providers Date of Admission: 05/26/21 Primary Care Physician: Dr. Emerita Gottlieb MD Consultations 05/26/21 21:12 Consult: Nephrology Routine Consulting Provider: Annelise Sprague Reason for Consult: CKD stage 4 on diuretics, CHF EMERGENT Consult: No Notified: Yes Date Notified: 05/27/21 Time Notified: 08:22 Method of Notification: Verbal 05/27/21 00:09 Consult: Cardiology Routine Consulting Provider: Jose Antonio Dorado Reason for Consult: Acute on chronic diastolic heart failure on BiPAP. EMERGENT Consult: No Notified: Yes Date Notified: 05/27/21 Time Notified: 08:10 Method of Notification: Verbal Consult: Job Cost Estimator / Pulmonary Medicine Routine Consulting Provider: Pulmonary Medicine raimundo [place] Reason for Consult: Acute respiratory failure on BiPAP EMERGENT Consult: No Notified: Yes Date Notified: 05/27/21 Time Notified: 01:43 Method of Notification: Text Reason For Visit: CHF EXACERBATION Diagnosis Discharge Diagnosis (1) Acute exacerbation of congestive heart failure: Status: Chronic Code(s): I50.9 - Heart failure, unspecified Qualifiers: Heart failure type: diastolic Qualified Code(s): I50.33 - Acute on chronic diastolic (congestive) heart failure (2) CAD (coronary artery disease): Status: Chronic Code(s): I25.10 - Atherosclerotic heart disease of [place] coronary artery without angina pectoris Qualifiers: Coronary Disease-Associated Artery/Lesion type: [place] artery [place] vs. transplanted heart: [place] heart Associated angina: with unstable angina Qualified Code(s): I25.110 - Atherosclerotic heart disease of [place] coronary artery with unstable angina pectoris (3) History of coronary artery stent placement: Status: Chronic Code(s): Z95.5 - Presence of coronary angioplasty implant and graft (4) Moderate aortic stenosis: Status: Chronic Code(s): I35.0 - Nonrheumatic aortic (valve) stenosis (5) Sick sinus syndrome: Status: Chronic Code(s): I49.5 - Sick sinus syndrome (6) History of permanent cardiac pacemaker placement: Status: Chronic Code(s): Z95.0 - Presence of cardiac pacemaker (7) Hyperlipidemia: Status: Chronic Code(s): E78.5 - Hyperlipidemia, unspecified Qualifiers: Hyperlipidemia type: unspecified Qualified Code(s): E78.5 - Hyperlipidemia, unspecified (8) Essential (primary) hypertension: Status: Chronic Code(s): I10 - Essential (primary) hypertension Medications at Discharge Home Medications metoprolol succinate 50 mg PO DAILY 10/11/17 prasugrel 10 mg PO DAILY 06/04/18 duloxetine 30 mg PO DAILY 11/18/18 levetiracetam 500 mg tablet 500 mg PO BID tab 04/19/20 omeprazole 20 mg PO DAILY 05/18/20 acetaminophen 650 mg PO Q6H PRN PRN tab 05/22/20 fluticasone propionate 2 spray NARES BID 12/13/20 nitroglycerin 0.4 mg SUBLINGUAL PRN PRN 12/13/20 atorvastatin 20 mg tablet 20 mg PO QHS 01/05/21 bisacodyl 10 mg rectal suppository 10 mg RC Q8 PRN 01/05/21 insulin lispro 100 unit/mL subcutaneous pen 15 unit SC TIDCM ml 01/05/21 latanoprost 0.005 % eye drops 1 drp EACH EYE QHS 01/05/21 sennosides 8.6 mg capsule 8.6 mg PO BID 01/05/21 bisacodyl [Dulcolax (bisacodyl)] 5 mg PO BID PRN 04/02/21 magnesium hydroxide [Milk of Magnesia] 400 mg PO DAILY PRN 04/02/21 polyethylene glycol 3350 [Miralax] 17 g PO DAILY PRN 04/02/21 Xarelto 15 mg PO DINNER #1 tab 04/09/21 cetirizine [Zyrtec] 10 mg PO DAILY 05/26/21 donepezil [Aricept] 10 mg PO DAILY 05/26/21 levothyroxine [Synthroid] 50 mcg PO DAILY 05/26/21 memantine 10 mg PO BID 05/26/21 potassium chloride 20 meq PO MOWEFR 05/26/21 trazodone 50 mg PO QHS 05/26/21 Lantus Solostar U-100 Insulin 25 unit SUBCUT BID #1 ml 06/02/21 amoxicillin 500 mg PO Q8 #15 cap 06/02/21 furosemide 80 mg PO BID #60 tab 06/02/21 isosorbide mononitrate 60 mg PO DAILY #30 tab 06/02/21 potassium chloride 20 meq PO DAILY #30 cap 06/02/21 Hospital Course Procedures 2-D Echocardiogram Summary of Care Provided Minutes Spent on Discharge: 34 Hospital Course: 1. Sepsis 2/2 Group B Strep bacteremia 2. Group B Strep bacteremia unclear source repeat BCx thus far negative echo unremarkable on cefazolin which was started on the . Continue with antibiotics for a total of 10 days. Change to amoxicillin and treat through the 3. Acute HFpEF EF 65% from 05/28/202105/31: changed to PO furosemide Continue furosemide 80 BID 4. Acute hypoxic respiratory failure POA now resolved and on RA 2/2 above 5. CKD IIIB I do not see GRIS, therefore, ruled out monitor nephrology following 6. DM2 BGT up to 297. Continue glargine and SSI 7. VTE prophylaxis: already anticoagulated 8. Debility: Patient plan is to go to [facility]. Awaiting on Precert. However today, patient stated that she did not want to wait any further and would rather go home. Discussed the risk of her going home in regards to her being weak on being able to care for self. She states that she will build to adequately care for self and understands the risk of her weakness and potential for falls. She insists on going home. Patient will be discharged home with home care. Physical Exam Const alert General Appearance: cooperative HEENT normocephalic Neuro Sensorium / Orientation: awake and alert Weight / BMI Weight Weight: 99.8 kg Body Mass Index (BMI) 43.1 ABG / Lab / Microbiology Data Result Diagrams: 05/30/21 04:50 06/02/21 06:21 Laboratory: Laboratory Results - last 24 hr 06/01/21 11:31: POC Glucose 318 H 06/01/21 16:52: POC Glucose 407 H 06/01/21 21:04: POC Glucose 311 H 06/02/21 06:21: Sodium 140, Potassium 3.5, Chloride 103, Carbon Dioxide 32.0, Anion Gap 5, BUN 26 H, Creatinine 1.06 H, Estim Creat Clear Calc 33.54, Est GFR (MDRD) Af Amer 65, Est GFR (MDRD) Non-Af 53 L, BUN/Creatinine Ratio 24.5 H, Glucose 255 H, Calcium 8.9 06/02/21 06:42: POC Glucose 260 H Microbiology: Microbiology 05/30/21 19:45 Stool C. difficile DNA Amplification - Final 05/28/21 14:30 Blood Culture (Wb) - Anticubital Right Blood Culture - Preliminary No growth in 48 hours. 05/28/21 14:30 Blood Culture (Wb) - Anticubital Left Blood Culture - Preliminary No growth in 48 hours. 05/27/21 00:55 Urine Catheter - Douglas Urine Culture - Final Culture exhibits no growth. 05/26/21 17:34 Blood Culture (Wb) - Right Wrist Bacteria Detection (PCR) - Final Streptococcus agalactiae (B) 05/26/21 17:34 Blood Culture (Wb) - Right Wrist Blood Culture - Final Streptococcus agalactiae (B) 05/26/21 17:15 Blood Culture (Wb) - Anticubital Left Blood Culture - Final Streptococcus agalactiae (B) 05/27/21 01:00 Mucosa - Nasopharyngeal Respiratory Panel (PCR) - Final 05/27/21 00:55 Urine Catheter - Douglas Legionella Antigen - Final 05/27/21 00:55 Urine Catheter - Douglas Streptococcus pneumoniae Antigen (M - Final 05/26/21 17:25 Mucosa - Nose SARS-CoV-2 Antigen (Rapid) - Final D/C Instructions Discharge Diet: 2000 Calorie Control Diet and 6 Cup Fluid Restriction Call your doctor if you observe: Fever of 101 or Higher and Shortness of breath Meaningful Use Info Meaningful Use Diagnoses (Choose all that apply): CHF CHF DWAIN/ARB ordered at discharge?: No Reason DWAIN/ARB not ordered?: Worsening renal disease Documented LVEF (%): 65 Discharge Plan Admission Admit Date/Time: 05/26/21 21:11 Primary Reason for Your Visit: CHF, bacteremia Attending Provider: Antoine Muñiz Primary Care Provider: Emerita Gottlieb Consulting Providers: Jose Antonio Dorado ; Jon Lyon ; Truong Billy ; Adelita Anne BROOM MACHINE OPERATOR ; Annelise Sprague Instructions Patient Instructions: ED Chest Pain, Noncardiac Discharge Orders/Prescriptions Prescriptions: New isosorbide mononitrate 60 mg Tablet Extended Release 24 Hr 60 mg PO DAILY Qty: 30 RF: 0 amoxicillin 500 mg Capsule 500 mg PO Q8 Qty: 15 RF: 0 furosemide 80 mg Tablet 80 mg PO BID Qty: 60 RF: 0 potassium chloride 10 mEq capsule, extended release 20 meq PO DAILY Qty: 30 RF: 0 Continued levetiracetam 500 mg tablet 500 mg PO BID RF: 0 atorvastatin 20 mg tablet 20 mg PO QHS RF: 0 bisacodyl 10 mg suppository 10 mg RC Q8 PRN (Reason: Constipation) RF: 0 latanoprost 0.005 % drops 1 drp EACH EYE QHS RF: 0 senna 8.6 mg capsule 8.6 mg PO BID RF: 0 prasugrel 10 MG tablet 10 mg PO DAILY RF: 0 duloxetine 30 MG capsule,delayed release(DR/EC) 30 mg PO DAILY RF: 0 omeprazole 20 MG capsule 20 mg PO DAILY RF: 0 acetaminophen 325 MG tablet 650 mg PO Q6H PRN PRN (Reason: Pain Score 1-10/Temp > 100.7 F) RF: 0 nitroglycerin 0.4 MG tablet, sublingual 0.4 mg SUBLINGUAL PRN PRN (Reason: chest pain) RF: 0 fluticasone propionate 1 SPRAY spray,suspension 2 spray NARES BID RF: 0 insulin lispro 100 unit/mL insulin pen 15 unit SC TIDCM RF: 0 polyethylene glycol 3350 [Miralax] 17 gram Powder In Packet 17 g PO DAILY PRN (Reason: Constipation) RF: 0 magnesium hydroxide [Milk of Magnesia] 400 mg/5 mL Suspension 400 mg PO DAILY PRN (Reason: Constipation) RF: 0 bisacodyl [Dulcolax (bisacodyl)] 5 mg Tablet,Delayed Release (Dr/Ec) 5 mg PO BID PRN (Reason: Constipation) RF: 0 Xarelto 15 mg Tablet 15 mg PO DINNER Qty: 1 RF: 0 trazodone 50 mg Tablet 50 mg PO QHS RF: 0 cetirizine [Zyrtec] 10 mg Tablet 10 mg PO DAILY RF: 0 donepezil [Aricept] 10 mg Tablet 10 mg PO DAILY RF: 0 levothyroxine [Synthroid] 50 mcg Tablet 50 mcg PO DAILY RF: 0 memantine 10 mg Tablet 10 mg PO BID RF: 0 potassium chloride 20 mEq Tablet Extended Release 20 meq PO MOWEFR RF: 0 Changed Lantus Solostar U-100 Insulin 100 unit/mL (3 mL) Insulin Pen 25 unit subcut BID Qty: 1 RF: 0 Discontinued furosemide 20 mg tablet 20 mg PO BID RF: 0 isosorbide mononitrate 30 MG tablet 90 mg PO DAILY RF: 0 amlodipine 5 MG tablet 5 mg PO DAILY RF: 0 No Action metoprolol succinate 50 MG tablet extended release 24 hr 50 mg PO DAILY RF: 0 Referrals / Follow Up: Emerita Gottlieb MD [Primary Care Provider] - Within 1 Week Jose Antonio Dorado MD [STAFF PHYSICIAN] - Within 1 Month Disposition Disposition (needs filled in before D/C Order can be placed): Home Health Service Charges/Coding Visit Charges Inpatient E&M: 26790 Disch Hosp
--- NOTE | 2021-06-02 10:28 | PN.RENAL_ITS ---
Subjective Subjective Patient is awake alert oriented. No nausea no vomiting no shortness of breath Objective Data Objective Data Vital Signs: Vital Signs Temp Pulse Resp BP Pulse Ox 97.9 F 98 16 136/80 H 96 06/02/21 07:45 06/02/21 07:45 06/02/21 07:45 06/02/21 07:45 06/02/21 07:45 Oxygen Flow Rate (L/min) 2 Oxygen Delivery Method Room Air Weight: 99.8 kg Body Mass Index (BMI) 43.1 Intake & Output: Intake and Output for Last 24 Hours 05/31/21 06/01/21 06/02/21 23:59 23:59 23:59 Intake Total 600 / 600 350 / 350 Balance 600 / 600 350 / 350 Lab / Micro Data Result Diagrams: 05/30/21 04:50 06/02/21 06:21 Labs: Laboratory Results - last 24 hr 06/01/21 11:31: POC Glucose 318 H 06/01/21 16:52: POC Glucose 407 H 06/01/21 21:04: POC Glucose 311 H 06/02/21 06:21: Sodium 140, Potassium 3.5, Chloride 103, Carbon Dioxide 32.0, Anion Gap 5, BUN 26 H, Creatinine 1.06 H, Estim Creat Clear Calc 33.54, Est GFR (MDRD) Af Amer 65, Est GFR (MDRD) Non-Af 53 L, BUN/Creatinine Ratio 24.5 H, Glucose 255 H, Calcium 8.9 06/02/21 06:42: POC Glucose 260 H Micro: Microbiology 05/30/21 19:45 Stool C. difficile DNA Amplification - Final 05/28/21 14:30 Blood Culture (Wb) - Anticubital Right Blood Culture - Preliminary No growth in 48 hours. 05/28/21 14:30 Blood Culture (Wb) - Anticubital Left Blood Culture - Prelim inary No growth in 48 hours. 05/27/21 00:55 Urine Catheter - Douglas Urine Culture - Final Culture exhibits no growth. 05/26/21 17:34 Blood Culture (Wb) - Right Wrist Bacteria Detection (PCR) - Final Streptococcus agalactiae (B) 05/26/21 17:34 Blood Culture (Wb) - Right Wrist Blood Culture - Final Streptococcus agalactiae (B) 05/26/21 17:15 Blood Culture (Wb) - Anticubital Left Blood Culture - Final Streptococcus agalactiae (B) 05/27/21 01:00 Mucosa - Nasopharyngeal Respiratory Panel (PCR) - Final 05/27/21 00:55 Urine Catheter - Douglas Legionella Antigen - Final 05/27/21 00:55 Urine Catheter - [place] Streptococcus pneumoniae Antigen (M - Final 05/26/21 17:25 Mucosa - Nose SARS-CoV-2 Antigen (Rapid) - Final Physical Exam Narrative General: No acute distress. Neck: Supple, no visible JVD. Heart: Normal S1, S2. Regular rate and irregular. Lungs: CTA Abdomen: Normal bowel sound, soft, nontender, no guarding or rebound. Extremity: +1 edema of lower extremities. Neurological: No focal neurologic deficits. Assessment & Plan Assessment/Plan (1) GRIS (acute kidney injury): PLAN: From cardiorenal renal syndrome kidney function improved to baseline with diuresis. Serum creatinine is at 1.02 as per today lab which is below her baseline. No accurate output yesterday Continue Lasix 80 mg p.o. twice daily. Check RFP in am if remains inpatient (2) Chronic kidney disease, stage 3b: PLAN: Baseline serum creatinine is 1.2 to 1.3 mg/dL. I suspect that the patient has diabetic kidney disease. She has has a persistent glucosuria and proteinuria on prior urinalysis. . (3) HTN (hypertension): QUALIFIERS: Hypertension type: secondary to endocrine disorders Qualified Code(s): I15.2 - Hypertension secondary to endocrine disorders PLAN: The patient is on isosorbide mononitrate only for blood pressure control at this point. Diuresis will also help with BP. We will monitor blood pressure. (4) Acute hypoxemic respiratory failure: PLAN: The patient was treated for both congestive heart failure and possible lower respiratory tract infection. She is getting Lasix . I will continue to monitor renal function while she is being diuresed. finished Abx. She is on room air Okay to discharge patient from nephrology standpoint with her current Lasix dose. Please check renal function panel in 2 3 days
[2021-06-02 10:55] LABS: Bedside Glucose 319 mg/dL (70-110)
--- NOTE | 2021-06-02 11:58 | PCM.PN.HOSP ---
Subjective Subjective Patient upset about not being able to be discharged to custodial facility despite numerous times being explained that we are still waiting on peripheral certification. Insist on going back to her assisted living. Objective Data Objective Data Vital Signs: Vital Signs Temp Pulse Resp BP Pulse Ox 36.6 C 98 16 136/80 H 96 06/02/21 07:45 06/02/21 07:45 06/02/21 07:45 06/02/21 07:45 06/02/21 07:45 Oxygen Flow Rate (L/min) 2 Oxygen Delivery Method Room Air Weight: 99.8 kg Body Mass Index (BMI) 43.1 Intake & Output: Intake and Output for Last 24 Hours 05/31/21 06/01/21 06/02/21 23:59 23:59 23:59 Intake Total 600 / 600 350 / 350 Balance 600 / 600 350 / 350 Lab / Micro Data Result Diagrams: 05/30/21 04:50 06/02/21 06:21 Labs: Laboratory Results - last 24 hr 06/01/21 16:52: POC Glucose 407 H 06/01/21 21:04: POC Glucose 311 H 06/02/21 06:21: Sodium 140, Potassium 3.5, Chloride 103, Carbon Dioxide 32.0, Anion Gap 5, BUN 26 H, Creatinine 1.06 H, Estim Creat Clear Calc 33.54, Est GFR (MDRD) Af Amer 65, Est GFR (MDRD) Non-Af 53 L, BUN/Creatinine Ratio 24.5 H, Glucose 255 H, Calcium 8.9 06/02/21 06:42: POC Glucose 260 H 06/02/21 10:51: POC Glucose 319 H Micro: Microbiology 05/30/21 19:45 Stool C. difficile DNA Amplification - Final 05/28/21 14:30 Blood Culture (Wb) - Anticubital Right Blood Culture - Preliminary No growth in 48 hours. 05/28/21 14:30 Blood Culture (Wb) - Anticubital Left Blood Culture - Preliminary No growth in 48 hours. 05/27/21 00:55 Urine Catheter - Douglas Urine Culture - Final Culture exhibits no growth. 05/26/21 17:34 Blood Culture (Wb) - Right Wrist Bacteria Detection (PCR) - Final Streptococcus agalactiae (B) 05/26/21 17:34 Blood Culture (Wb) - Right Wrist Blood Culture - Final Streptococcus agalactiae (B) 05/26/21 17:15 Blood Culture (Wb) - Anticubital Left Blood Culture - Final Streptococcus agalactiae (B) 05/27/21 01:00 Mucosa - Nasopharyngeal Respiratory Panel (PCR) - Final 05/27/21 00:55 Urine Catheter - Douglas Legionella Antigen - Final 05/27/21 00:55 Urine Catheter - [place] Streptococcus pneumoniae Antigen (M - Final 05/26/21 17:25 Mucosa - Nose SARS-CoV-2 Antigen (Rapid) - Final Physical Exam Const alert HEENT Head and Scalp: normocephalic Assessment & Plan Assessment/Plan (1) Acute exacerbation of congestive heart failure: QUALIFIERS: Heart failure type: diastolic Qualified Code(s): I50.33 - Acute on chronic diastolic (congestive) heart failure (2) CAD (coronary artery disease): QUALIFIERS: Coronary Disease-Associated Artery/Lesion type: [place] artery [place] vs. transplanted heart: [place] heart Associated angina: with unstable angina Qualified Code(s): I25.110 - Atherosclerotic heart disease of [place] coronary artery with unstable angina pectoris (3) History of coronary artery stent placement: (4) Moderate aortic stenosis: (5) Sick sinus syndrome: (6) History of permanent cardiac pacemaker placement: (7) Hyperlipidemia: QUALIFIERS: Hyperlipidemia type: unspecified Qualified Code(s): E78.5 - Hyperlipidemia, unspecified (8) Essential (primary) hypertension: PLAN: 1. Sepsis 2/2 Group B Strep bacteremia 2. Group B Strep bacteremia unclear source repeat BCx thus far negative echo unremarkable on cefazolin which was started on the . Continue with antibiotics for a total of 10 days. Change to amoxicillin 3. Acute HFpEF EF 65% from 05/28/202105/31: changed to PO furosemide 4. Acute hypoxic respiratory failure POA now resolved and on RA 2/2 above 5. CKD IIIB I do not see GRIS, therefore, ruled out monitor nephrology following 6. DM2 BGT up to 297. Continue glargine and SSI 7. VTE prophylaxis: already anticoagulated 8. Debility: Patient plan is to go to [facility]. Awaiting on Precert. Medically stable for discharge. Patient insisted on going back to assisted living but were notified by the assisted living that they would not take her back and that she would need to go to custodial facility. Greater than 35 minutes of which greater than 50% of time was counseling the patient about the risk of going home to early versus SNF. Also filling out paperwork for discharge. Patient will remain in the hospital until she can obtain precertification then then she will go to a custodial facility Charges/Coding Visit Charges Inpatient E&M: 95646 Subs Hosp L3
[2021-06-02] MEDS: Loperamide 2 MG Capsule PO (13:35)
--- NOTE | 2021-06-02 15:46 | CASEMGMT ---
SW Note Referral Source: RN Reason for referral: Patient has been discharged. SW was advised that patient has been discharged and stated she is going to [facility], where she resides. MINAL called Aileen at [facility] and inquired if patient could return as the plan is skilled level of care at discharge at [facility]. Aileen spoke to veneer department manager of [facility] and called this group underwriter back. Aileen said that High School Physical Education Teacher said that patient has to go to SNF for skilled level of care for a short time and then can return to [facility]. SW updated patient. Patient was frustrated as she wanted to leave to see her friend, of 20 years, who is [facility] and not doing well. SW provided emotional support. MINAL called [facility] and spoke to admission national account representative and the precert has not been approved yet. Thus patient needs to remain in hospital to go to [facility] when precert is approved. Plan: [facility] when precert Dedra STAPLETON
[2021-06-02] MEDS: Rivaroxaban 15 MG Tablet PO (16:49)
[2021-06-02 17:01] LABS: Bedside Glucose 263 mg/dL (70-110)
[2021-06-02] MEDS: Atorvastatin Calcium 20 MG Tablet PO (22:13)
[2021-06-02] MEDS: Latanoprost 0.005% 1 Bottle 1 DRP OPHTHALMIC (22:14)
[2021-06-02 22:26] LABS: Bedside Glucose 235 mg/dL (70-110)
[2021-06-03] VITALS (7 sets, daily range): BP systolic 117–131; BP diastolic 54–67; PULSE 59–98; RESP 16–18; TEMP 36.6–36.9; O2SAT 92–96
[2021-06-03] MEDS: Ipratropium/Albuterol Sulfate 3 ML AMPUL.NEB INHALATION ×4 (01:14→19:08)
[2021-06-03] MEDS: AMOXICILLIN 500 MG CAPSULE PO ×3 (06:23→21:27)
[2021-06-03] MEDS: Levothyroxine 50 MCG Tablet PO (06:23)
[2021-06-03] MEDS: Insulin Lispro 100 UNIT/ML INSULN.PEN SC ×4 (06:23→21:37)
[2021-06-03 06:34] LABS: Anion Gap 6 (5-15); BUN 38 mg/dL (7-18); BUN/Creat Ratio 25.3 RATIO (10-20); Chloride 100 mmol/L (98-107); EST Glomerular Filtration Rate 36 mL/min (>60); Est Glom Filt Rate - Afr Amer 43 mL/min (>60); Glucose 260 mg/dL (74-106); Potassium 3.6 mmol/L (3.5-5.1); Sodium Level 138 mmol/L (136-145)
[2021-06-03 06:36] LABS: Bedside Glucose 266 mg/dL (70-110)
[2021-06-03] MEDS: Acetaminophen 325 MG Tablet 650 MG PO ×2 (08:22→19:36)
[2021-06-03] MEDS: Fluticasone 0.05% 1 SPRAY NASAL.SRY 2 SPRAY NASAL ×2 (08:23→21:26)
[2021-06-03] MEDS: Isosorbide Mononitrate 60 MG Tablet PO (08:24)
[2021-06-03] MEDS: levETIRAcetam 500 MG Tablet PO ×2 (08:24→21:27)
[2021-06-03] MEDS: Furosemide 80 MG Tablet PO (08:24)
[2021-06-03] MEDS: Pantoprazole Sodium 40 MG Tablet PO (08:25)
[2021-06-03 12:40] LABS: Bedside Glucose 394 mg/dL (70-110)
--- NOTE | 2021-06-03 13:39 | PN.HOSP_ITS ---
Subjective Subjective Could not be accepted at stating that should would need to go to SNF instead. Objective Data Objective Data Vital Signs: Vital Signs Temp Pulse Resp BP Pulse Ox 36.8 C 98 18 126/67 H 92 06/03/21 08:21 06/03/21 08:21 06/03/21 08:21 06/03/21 08:21 06/03/21 08:21 Oxygen Flow Rate (L/min) 2 Oxygen Delivery Method Room Air Weight: 98.4 kg Body Mass Index (BMI) 43.1 Intake & Output: Intake and Output for Last 24 Hours 06/01/21 06/02/21 06/03/21 23:59 23:59 23:59 Intake Total 350 / 350 150 / 350 550 / 550 Output Total 200 / 200 Balance 350 / 350 -50 / 150 550 / 550 Lab / Micro Data Result Diagrams: 05/30/21 04:50 06/03/21 05:25 Labs: Laboratory Results - last 24 hr 06/02/21 16:46: POC Glucose 263 H 06/02/21 22:06: POC Glucose 235 H 06/03/21 05:25: Sodium 138, Potassium 3.6, Chloride 100, Carbon Dioxide 32.0, Anion Gap 6, BUN 38 H, Creatinine 1.50 H, Estim Creat Clear Calc 23.70, Est GFR (MDRD) Af Amer 43 L, Est GFR (MDRD) Non-Af 36 L, BUN/Creatinine Ratio 25.3 H, Glucose 260 H, Calcium 9.0 06/03/21 06:22: POC Glucose 266 H 06/03/21 10:52: POC Glucose 394 H Micro: Microbiology 05/28/21 14:30 Blood Culture (Wb) - Anticubital Left Blood Culture - Final No growth in 5 days. 05/28/21 14:30 Blood Culture (Wb) - Anticubital Right Blood Culture - Final No growth in 5 days. 05/30/21 19:45 Stool C. difficile DNA Amplification - Final 05/27/21 00:55 Urine Catheter - Douglas Urine Culture - Final Culture exhibits no growth. 05/26/21 17:34 Blood Culture (Wb) - Right Wrist Bacteria Detection (PCR) - Final Streptococcus agalactiae (B) 05/26/21 17:34 Blood Culture (Wb) - Right Wrist Blood Culture - Final Streptococcus agalactiae (B) 05/26/21 17:15 Blood Culture (Wb) - Anticubital Left Blood Culture - Final Streptococcus agalactiae (B) 05/27/21 01:00 Mucosa - Nasopharyngeal Respiratory Panel (PCR) - Final 05/27/21 00:55 Urine Catheter - Douglas Legionella Antigen - Final 05/27/21 00:55 Urine Catheter - [place] Streptococcus pneumoniae Antigen (M - Final 05/26/21 17:25 Mucosa - Nose SARS-CoV-2 Antigen (Rapid) - Final Physical Exam Const alert Resp normal respiratory effort, no retractions, no use of accessory muscles and clear to auscultation bilaterally Cardio regular rate, regular rhythm, S1 normal heart sound and S2 normal heart sound GI normal to inspection, nondistended, normoactive bowel sounds, soft to palpation, non-tender and non-distended Extremity normal to inspection Assessment & Plan Assessment/Plan (1) (HFpEF) heart failure with preserved ejection fraction: QUALIFIERS: Heart failure chronicity: acute Qualified Code(s): I50.31 - Acute diastolic (congestive) heart failure (2) Acute exacerbation of congestive heart failure: QUALIFIERS: Heart failure type: diastolic Qualified Code(s): I50.33 - Acute on chronic diastolic (congestive) heart failure (3) CAD (coronary artery disease): QUALIFIERS: Coronary Disease-Associated Artery/Lesion type: [place] artery [place] vs. transplanted heart: [place] heart Associated angina: with unstable angina Qualified Code(s): I25.110 - Atherosclerotic heart disease of [place] coronary artery with unstable angina pectoris (4) History of coronary artery stent placement: (5) Moderate aortic stenosis: (6) Sick sinus syndrome: (7) History of permanent cardiac pacemaker placement: (8) Hyperlipidemia: QUALIFIERS: Hyperlipidemia type: unspecified Qualified Code(s): E78.5 - Hyperlipidemia, unspecified (9) Essential (primary) hypertension: PLAN: 1. Sepsis 2/2 Group B Strep bacteremia 2. Group B Strep bacteremia unclear source repeat BCx thus far negative echo unremarkable on cefazolin which was started on the . Continue with antibiotics for a total of 10 days. Change to amoxicillin 3. Acute HFpEF EF 65% from 05/28/202105/31: changed to PO furosemide 4. Acute hypoxic respiratory failure POA now resolved and on RA 2/2 above 5. CKD IIIB Creatinine up to 1.5 today, will decrease furosemide from 80 to 40 monitor nephrology following 6. DM2 uncontrolled Increase glargine to 25 BID 7. VTE prophylaxis: already anticoagulated 8. Debility: Patient plan is to go to [facility]. Awaiting on Precert. Medically stable for discharge. Patient insisted on going back to assisted living but were notified by the assisted living that they would not take her back and that she would need to go to [facility]. Charges/Coding Visit Charges Inpatient E&M: 99696 Subs Hosp L2
[2021-06-03] MEDS: Loperamide 2 MG Capsule PO (14:15)
[2021-06-03] MEDS: Furosemide 40 MG Tablet PO (17:11)
[2021-06-03] MEDS: Rivaroxaban 15 MG Tablet PO (17:11)
[2021-06-03 17:16] LABS: Bedside Glucose 306 mg/dL (70-110)
[2021-06-03] MEDS: Atorvastatin Calcium 20 MG Tablet PO (21:27)
[2021-06-03] MEDS: Latanoprost 0.005% 1 Bottle 1 DRP OPHTHALMIC (21:27)
[2021-06-03 21:40] LABS: Bedside Glucose 308 mg/dL (70-110)
[2021-06-04] VITALS (7 sets, daily range): BP systolic 104–146; BP diastolic 55–88; PULSE 56–85; RESP 18–20; TEMP 36.6–37.1; O2SAT 96–98
[2021-06-04 06:22] LABS: Anion Gap 7 (5-15); BUN 45 mg/dL (7-18); BUN/Creat Ratio 29.8 RATIO (10-20); Chloride 100 mmol/L (98-107); Creatinine, Serum 1.51 mg/dL (0.55-1.02); EST Glomerular Filtration Rate 35 mL/min (>60); Est Glom Filt Rate - Afr Amer 43 mL/min (>60); Estimated Creatinine Clearance 23.54 ml/min; Glucose 212 mg/dL (74-106); Potassium 3.4 mmol/L (3.5-5.1); Sodium Level 138 mmol/L (136-145)
[2021-06-04] MEDS: Levothyroxine 50 MCG Tablet PO (06:37)
[2021-06-04] MEDS: AMOXICILLIN 500 MG CAPSULE PO ×2 (06:37→14:05)
[2021-06-04] MEDS: Insulin Lispro 100 UNIT/ML INSULN.PEN SC ×3 (06:39→16:14)
[2021-06-04 06:46] LABS: Bedside Glucose 210 mg/dL (70-110)
[2021-06-04] MEDS: Ipratropium/Albuterol Sulfate 3 ML AMPUL.NEB INHALATION ×2 (06:58→13:09)
--- NOTE | 2021-06-04 10:02 | PN.RENAL_ITS ---
Subjective Subjective Following for acute kidney injury on chronic kidney disease. The patient denies increasing shortness of breath. There is no chest pain. Appetite has been improving. She complains of back and buttock pain. She attributes this to hospital bed. Objective Data Objective Data Vital Signs: Vital Signs Temp Pulse Resp BP Pulse Ox 97.9 F 76 20 H 104/55 L 96 06/04/21 02:15 06/04/21 06:58 06/04/21 06:58 06/04/21 02:15 06/04/21 06:58 Oxygen Flow Rate (L/min) 3 Oxygen Delivery Method Nasal Cannula Weight: 100 kg Body Mass Index (BMI) 43.1 Intake & Output: Intake and Output for Last 24 Hours 06/02/21 06/03/21 06/04/21 23:59 23:59 23:59 Intake Total 150 / 350 550 / 550 390 / 390 Output Total 200 / 200 600 / 600 500 / 500 Balance -50 / 150 -50 / -50 -110 / -110 Lab / Micro Data Result Diagrams: 05/30/21 04:50 06/04/21 05:16 Labs: Laboratory Results - last 24 hr 06/03/21 10:52: POC Glucose 394 H 06/03/21 17:03: POC Glucose 306 H 06/03/21 21:35: POC Glucose 308 H 06/04/21 05:16: Sodium 138, Potassium 3.4 L, Chloride 100, Carbon Dioxide 31.0, Anion Gap 7, BUN 45 H, Creatinine 1.51 H, Estim Creat Clear Calc 23.54, Est GFR (MDRD) Af Amer 43 L, Est GFR (MDRD) Non-Af 35 L, BUN/Creatinine Ratio 29.8 H, G lucose 212 H, Calcium 9.0 06/04/21 06:39: POC Glucose 210 H Micro: Microbiology 05/28/21 14:30 Blood Culture (Wb) - Anticubital Left Blood Culture - Final No growth in 5 days. 05/28/21 14:30 Blood Culture (Wb) - Anticubital Right Blood Culture - Final No growth in 5 days. 05/30/21 19:45 Stool C. difficile DNA Amplification - Final 05/27/21 00:55 Urine Catheter - [place] Urine Culture - Final Culture exhibits no growth. 05/26/21 17:34 Blood Culture (Wb) - Right Wrist Bacteria Detection (PCR) - Final Streptococcus agalactiae (B) 05/26/21 17:34 Blood Culture (Wb) - Right Wrist Blood Culture - Final Streptococcus agalactiae (B) 05/26/21 17:15 Blood Culture (Wb) - Anticubital Left Blood Culture - Final Streptococcus agalactiae (B) 05/27/21 01:00 Mucosa - Nasopharyngeal Respiratory Panel (PCR) - Final 05/27/21 00:55 Urine Catheter - [place] Legionella Antigen - Final 05/27/21 00:55 Urine Catheter - [place] Streptococcus pneumoniae Antigen (M - Final 05/26/21 17:25 Mucosa - Nose SARS-CoV-2 Antigen (Rapid) - Final Physical Exam Narrative General: No acute distress. Neck: Supple, no visible JVD. Heart: Normal S1, S2. Regular rate and irregular. Lungs: CTA anteriorly. Abdomen: Normal bowel sound, soft, nontender, no guarding or rebound. Extremity: +1 edema of lower extremities. Neurological: No focal neurologic deficits. Assessment & Plan Assessment/Plan (1) GRIS (acute kidney injury): PLAN: From cardiorenal renal syndrome. Serum creatinine increased to 1.5 in the last 2 days. No need to stop Lasix at this point. The patient may have to tolerate a new higher baseline serum creatinine to keep her from decompensating from a heart failure standpoint. Continue Lasix 40 mg p.o. twice daily. If the patient is discharged, I will arrange for follow-up in our [place] office within 1 to 2 weeks. Check RFP in am if remains inpatient (2) Chronic kidney disease, stage 3b: PLAN: Baseline serum creatinine is 1.2 to 1.3 mg/dL. I suspect that the patient has diabetic kidney disease. She has has a persistent glucosuria and proteinuria on prior urinalysis. Again, we may have to tolerate a new baseline serum creatinine of around 1.5-1.8 to keep her from becoming volume overloaded. (3) HTN (hypertension): QUALIFIERS: Hypertension type: secondary to endocrine disorders Qualified Code(s): I15.2 - Hypertension secondary to endocrine disorders PLAN: The patient is on isosorbide mononitrate only for blood pressure control at this point. Diuresis will also help with BP. We will monitor blood pressure which is currently acceptable. (4) Acute hypoxemic respiratory failure: PLAN: The patient was treated for both congestive heart failure and possible lower respiratory tract infection. She is getting Lasix . I will continue to monitor renal function while she is being diuresed. finished Abx. She is on room air Okay to discharge patient from nephrology standpoint with her current Lasix dose. We will arrange for recheck of renal function panel in 2 3 days as o utpatient.
[2021-06-04] MEDS: Pantoprazole Sodium 40 MG Tablet PO (10:50)
[2021-06-04] MEDS: levETIRAcetam 500 MG Tablet PO (10:51)
[2021-06-04] MEDS: Potassium Chloride Oral Tablet 20 MEQ PO (10:52)
[2021-06-04] MEDS: Fluticasone 0.05% 1 SPRAY NASAL.SRY 2 SPRAY NASAL (10:55)
[2021-06-04] MEDS: Furosemide 40 MG Tablet PO (10:56)
--- NOTE | 2021-06-04 11:08 | CASEMGMT ---
SW faxed updates to [facility]. Tonja Benavidez [employer] CUST[employer]ER SERVICE ATTENDANT
--- NOTE | 2021-06-04 12:16 | CASEMGMT ---
MINAL received a call from J Luis at [facility] and patient was approved. MINAL notified physician. Tonja SAVAGE
[2021-06-04] MEDS: Acetaminophen 325 MG Tablet 650 MG PO (12:23)
[2021-06-04 12:26] LABS: Bedside Glucose 300 mg/dL (70-110)
--- NOTE | 2021-06-04 15:05 | DS.PCM_ITS ---
Providers Date of Admission: 05/26/21 Primary Care Physician: Dr. Emerita Gottlieb MD Consultations 05/26/21 21:12 Consult: Nephrology Routine Consulting Provider: Annelise Sprague Reason for Consult: CKD stage 4 on diuretics, CHF EMERGENT Consult: No Notified: Yes Date Notified: 05/27/21 Time Notified: 08:22 Method of Notification: Verbal 05/27/21 00:09 Consult: Cardiology Routine Consulting Provider: Jose Antonio Dorado Reason for Consult: Acute on chronic diastolic heart failure on BiPAP. EMERGENT Consult: No Notified: Yes Date Notified: 05/27/21 Time Notified: 08:10 Method of Notification: Verbal Consult: Assistant Manager Trainee / Pulmonary Medicine Routine Consulting Provider: Pulmonary Medicine raimundo Anthony Reason for Consult: Acute respiratory failure on BiPAP EMERGENT Consult: No Notified: Yes Date Notified: 05/27/21 Time Notified: 01:43 Method of Notification: Text Reason For Visit: CHF EXACERBATION Diagnosis Discharge Diagnosis (1) GRIS (acute kidney injury): Status: Acute Code(s): N17.9 - Acute kidney failure, unspecified (2) Chronic kidney disease, stage 3b: Status: Acute Code(s): N18.32 - Chronic kidney disease, stage 3b (3) HTN (hypertension): Status: Chronic Code(s): I10 - Essential (primary) hypertension Qualifiers: Hypertension type: secondary to endocrine disorders Qualified Code(s): I15.2 - Hypertension secondary to endocrine disorders (4) Acute hypoxemic respiratory failure: Status: Acute Code(s): J96.01 - Acute respiratory failure with hypoxia Medications at Discharge Home Medications metoprolol succinate 50 mg PO DAILY 10/11/17 prasugrel 10 mg PO DAILY 06/04/18 duloxetine 30 mg PO DAILY 11/18/18 levetiracetam 500 mg tablet 500 mg PO BID tab 04/19/20 omeprazole 20 mg PO DAILY 05/18/20 acetaminophen 650 mg PO Q6H PRN PRN tab 05/22/20 fluticasone propionate 2 spray NARES BID 12/13/20 nitroglycerin 0.4 mg SUBLINGUAL PRN PRN 12/13/20 atorvastatin 20 mg tablet 20 mg PO QHS 01/05/21 bisacodyl 10 mg rectal suppository 10 mg RC Q8 PRN 01/05/21 insulin lispro 100 unit/mL subcutaneous pen 15 unit SC TIDCM ml 01/05/21 latanoprost 0.005 % eye drops 1 drp EACH EYE QHS 01/05/21 sennosides 8.6 mg capsule 8.6 mg PO BID 01/05/21 bisacodyl [Dulcolax (bisacodyl)] 5 mg PO BID PRN 04/02/21 magnesium hydroxide [Milk of Magnesia] 400 mg PO DAILY PRN 04/02/21 polyethylene glycol 3350 [Miralax] 17 g PO DAILY PRN 04/02/21 Xarelto 15 mg PO DINNER #1 tab 04/09/21 cetirizine [Zyrtec] 10 mg PO DAILY 05/26/21 donepezil [Aricept] 10 mg PO DAILY 05/26/21 levothyroxine [Synthroid] 50 mcg PO DAILY 05/26/21 memantine 10 mg PO BID 05/26/21 potassium chloride 20 meq PO MOWEFR 05/26/21 trazodone 50 mg PO QHS 05/26/21 Lantus Solostar U-100 Insulin 25 unit SUBCUT BID #1 ml 06/02/21 amoxicillin 500 mg PO Q8 #15 cap 06/02/21 isosorbide mononitrate 60 mg PO DAILY #30 tab 06/02/21 potassium chloride 20 meq PO DAILY #30 cap 06/02/21 furosemide 40 mg PO BID #1 tab 06/03/21 insulin glargine [Lantus Solostar U-100 Insulin] 25 unit SUBCUT BID #3 ml 06/03/21 Hospital Course Operations None Procedures None Summary of Care Provided Minutes Spent on Discharge: 45 Hospital Course: Patient is a 75-year-old female with an extensive past medical history as outlined was admitted through the ED on 05/27/2021 with a complaint of shortness of breath, and altered mental status. She had been recently admitted in the hospital in March 2021 for acute hypoxic respiratory failure due to acute on chronic diastolic heart failure. On admission, she was tachypneic and hypoxemic but was afebrile and otherwise hemodynamically stable. WBC was elevated at 30,000 and INR was 1.4. Creatinine was 1.36 and lactic acid was elevated at 2.4 with BNP of 329. CT of the brain was negative and chest CT showed peribronchial thickening and scattered groundglass opacities with bilateral pleural effusions. Covid test done was negative but preliminary blood cultures were positive for gram-positive cocci. Strep and Legionella antigens were negative. EKG also showed no acute ST changes. She was admitted to the medical ICU and managed for acute hypoxic respiratory failure due to CHF exacerbation and sepsis due to probable healthcare associated pneumonia. Critical care was consulted and she was started on IV Zosyn. She was also diuresed with IV Lasix. She had a known EF of 60%. She was also managed for acute metabolic encephalopathy which was thought to be due to her septic condition and respiratory failure. She was initially placed on BiPAP. Vancomycin was also subsequently added on. Nephrology was consulted on account of GRIS on CKD. Cardiology was also subsequently consulted. Blood cultures were subsequently positive for group B strep and so antibiotics were transitioned to IV cefazolin. Repeat blood cultures were negative. Patient was transitioned to room air after respiratory failure resolved. Patient was evaluated by physical therapy was considered too weak to go home. She initially wanted to go home but due to her weakness, she agreed to go to the residential. She was discharged to nursing home facility on 06/04/2021. She is to follow-up with her primary care doctor as well as cardiology and nephrology in 1 to 2 weeks. Patient seen and examined. She had no complaints. She felt well. Review of systems otherwise negative. Labs and vitals reviewed. Home medication reviewed and reconciled. Physical Exam Const alert, oriented x3 and no apparent distress General Appearance: cooperative Orientation / Consciousness: awake Exam Limitations: no limitations HEENT normocephalic, head/scalp atraumatic and hearing grossly normal bilaterally Mouth: dry mucous membranes Eyes PERRL, EOMs intact bilaterally and conjunctivae normal Neck no lymphadenopathy Resp Resp Narrative: diminished breath sounds bibasally, no wheezes, no crackles.on 2L of oxygen Cardio regular rate, regular rhythm, S1 normal heart sound, S2 normal heart sound, no murmurs and no rub GI normal to inspection, nondistended, normoactive bowel sounds, soft to palpation and non-distended Extremity normal to inspection, full ROM and no clubbing, cyanosis or edema Skin no rashes or lesions noted Neuro oriented x3, CN's II-XII intact bilaterally and moves all extremities Sensorium / Orientation: awake and alert Motor Exam: strength 5/5 throughout Psych Psych Narrative: flat affect Weight / BMI Weight Weight: 220 lb 7.396 oz Body Mass Index (BMI) 43.1 ABG / Lab / Microbiology Data Result Diagrams: 05/30/21 04:50 06/04/21 05:16 Laboratory: Laboratory Results - last 24 hr 06/03/21 17:03: POC Glucose 306 H 06/03/21 21:35: POC Glucose 308 H 06/04/21 05:16: Sodium 138, Potassium 3.4 L, Chloride 100, Carbon Dioxide 31.0, Anion Gap 7, BUN 45 H, Creatinine 1.51 H, Estim Creat Clear Calc 23.54, Est GFR (MDRD) Af Amer 43 L, Est GFR (MDRD) Non-Af 35 L, BUN/Creatinine Ratio 29.8 H, Glucose 212 H, Calcium 9.0 06/04/21 06:39: POC Glucose 210 H 06/04/21 11:01: POC Glucose 300 H Microbiology: Microbiology 06/04/21 13:55 Mucosa - Nose SARS-CoV-2 Antigen (Rapid) - Final 05/28/21 14:30 Blood Culture (Wb) - Anticubital Left Blood Culture - Final No growth in 5 days. 05/28/21 14:30 Blood Culture (Wb) - Anticubital Right Blood Culture - Final No growth in 5 days. 05/30/21 19:45 Stool C. difficile DNA Amplification - Final 05/27/21 00:55 Urine Catheter - Douglas Urine Culture - Final Culture exhibits no growth. 05/26/21 17:34 Blood Culture (Wb) - Right Wrist Bacteria Detection (PCR) - Final Streptococcus agalactiae (B) 05/26/21 17:34 Blood Culture (Wb) - Right Wrist Blood Culture - Final Streptococcus agalactiae (B) 05/26/21 17:15 Blood Culture (Wb) - Anticubital Left Blood Culture - Final Streptococcus agalactiae (B) 05/27/21 01:00 Mucosa - Nasopharyngeal Respiratory Panel (PCR) - Final 05/27/21 00:55 Urine Catheter - [place] Legionella Antigen - Final 05/27/21 00:55 Urine Catheter - [place] Streptococcus pneumoniae Antigen (M - Final 05/26/21 17:25 Mucosa - Nose SARS-CoV-2 Antigen (Rapid) - Final D/C Instructions Discharge Diet: 2000 Calorie Control Diet and 6 Cup Fluid Restriction Call your doctor if you observe: Fever of 101 or Higher and Shortness of breath Meaningful Use Info Meaningful Use Diagnoses (Choose all that apply): CHF CHF DWAIN/ARB ordered at discharge?: No Reason DWAIN/ARB not ordered?: Worsening renal dysfunctn Documented LVEF (%): 60 Discharge Plan Admission Admit Date/Time: 05/26/21 21:11 Primary Reason for Your Visit: CHF, bacteremia Attending Provider: Danae Coyle Primary Care Provider: Emerita Gottlieb Consulting Providers: Jose Antonio Dorado ; Jon Lyon ; Truong Billy ; Adelita Anne NP ; Annelise Sprague Instructions Patient Instructions: ED Chest Pain, Noncardiac Additional Instructions / Restrictions: Patient Problems: Altered Health Status related to Hospitalization Patient Goals: *Optimal Level of Health *Keep Appointments *Medication Compliance *Remain Safe Discharge Orders/Prescriptions Prescriptions: New isosorbide mononitrate 60 mg Tablet Extended Release 24 Hr 60 mg PO DAILY Qty: 30 RF: 0 amoxicillin 500 mg Capsule 500 mg PO Q8 Qty: 15 RF: 0 potassium chloride 10 mEq capsule, extended release 20 meq PO DAILY Qty: 30 RF: 0 Lantus Solostar U-100 Insulin 100 unit/mL (3 mL) Insulin Pen 25 unit subcut BID Qty: 3 RF: 0 furosemide 40 mg tablet 40 mg PO BID Qty: 1 RF: 0 Continued levetiracetam 500 mg tablet 500 mg PO BID RF: 0 atorvastatin 20 mg tablet 20 mg PO QHS RF: 0 bisacodyl 10 mg suppository 10 mg RC Q8 PRN (Reason: Constipation) RF: 0 latanoprost 0.005 % drops 1 drp EACH EYE QHS RF: 0 senna 8.6 mg capsule 8.6 mg PO BID RF: 0 prasugrel 10 MG tablet 10 mg PO DAILY RF: 0 duloxetine 30 MG capsule,delayed release(DR/EC) 30 mg PO DAILY RF: 0 omeprazole 20 MG capsule 20 mg PO DAILY RF: 0 acetaminophen 325 MG tablet 650 mg PO Q6H PRN PRN (Reason: Pain Score 1-10/Temp > 100.7 F) RF: 0 nitroglycerin 0.4 MG tablet, sublingual 0.4 mg SUBLINGUAL PRN PRN (Reason: chest pain) RF: 0 fluticasone propionate 1 SPRAY spray,suspension 2 spray NARES BID RF: 0 insulin lispro 100 unit/mL insulin pen 15 unit SC TIDCM RF: 0 polyethylene glycol 3350 [Miralax] 17 gram Powder In Packet 17 g PO DAILY PRN (Reason: Constipation) RF: 0 magnesium hydroxide [Milk of Magnesia] 400 mg/5 mL Suspension 400 mg PO DAILY PRN (Reason: Constipation) RF: 0 bisacodyl [Dulcolax (bisacodyl)] 5 mg Tablet,Delayed Release (Dr/Ec) 5 mg PO BID PRN (Reason: Constipation) RF: 0 Xarelto 15 mg Tablet 15 mg PO DINNER Qty: 1 RF: 0 trazodone 50 mg Tablet 50 mg PO QHS RF: 0 cetirizine [Zyrtec] 10 mg Tablet 10 mg PO DAILY RF: 0 donepezil [Aricept] 10 mg Tablet 10 mg PO DAILY RF: 0 levothyroxine [Synthroid] 50 mcg Tablet 50 mcg PO DAILY RF: 0 memantine 10 mg Tablet 10 mg PO BID RF: 0 potassium chloride 20 mEq Tablet Extended Release 20 meq PO MOWEFR RF: 0 Changed Lantus Solostar U-100 Insulin 100 unit/mL (3 mL) Insulin Pen 25 unit subcut BID Qty: 1 RF: 0 Discontinued furosemide 20 mg tablet 20 mg PO BID RF: 0 isosorbide mononitrate 30 MG tablet 90 mg PO DAILY RF: 0 amlodipine 5 MG tablet 5 mg PO DAILY RF: 0 No Action metoprolol succinate 50 MG tablet extended release 24 hr 50 mg PO DAILY RF: 0 Referrals / Follow Up: Jose Antonio Dorado MD [STAFF PHYSICIAN] - Within 1 Month Tiffanie Salgado NP, NP-C [NON-STAFF] - 06/05/21 10:00 am Disposition Disposition (needs filled in before D/C Order can be placed): Longterm Facility Charges/Coding Visit Charges Inpatient E&M: 52384 Disch Hosp
--- NOTE | 2021-06-04 15:15 | TREXTCAR_ITS ---
Diet 05/27/21 13:44 Diet: Cardiac: Calorie-Controlled Food consistency:: Regular Liquid Consistency:: Regular/Thin Is pt able to select menu?: No Diet Comments: 120 ml glucerna shake w/ meals How many daily calories?: 1600 calorie Wound(s) coccyx: Wound Type: Pressure Injury all over arms/legs: Wound Type: scabbed areas/bruising Problem/Diagnosis (1) GRIS (acute kidney injury): Status: Acute (2) Chronic kidney disease, stage 3b: Status: Acute (3) HTN (hypertension): Status: Chronic (4) Acute hypoxemic respiratory failure: Status: Acute Allergies/Procedures Done in Hospital Allergies atorvastatin calcium [From Lipitor] Allergy (Verified 05/26/21 17:05) dont remember codeine Allergy (Verified 05/26/21 17:05) Rash iodine Allergy (Verified 05/26/21 17:05) Rash Latex, Natural Rubber Allergy (Verified 05/26/21 17:05) Rash lovastatin Allergy (Verified 05/26/21 17:05) Rash rosuvastatin calcium [From Crestor] Allergy (Verified 05/26/21 17:05) rash\ tositumomab Allergy (Verified 05/26/21 17:05) PT UNSURE OF REACTION naproxen [From Naprosyn] Adverse Reaction (Verified 05/26/21 17:05) Upset Stomach pregabalin [From Lyrica] Adverse Reaction (Verified 05/26/21 17:05) Upset Stomach Sulfa (Sulfonamide Antibiotics) Adverse Reaction (Verified 05/26/21 17:05) Upset Stomach Type of Care/Length of Stay Estimated LOS: Convalescent Care Less Than 30 days Type of Care Needed: Skilled Rehab Potential: Fair Prognosis: Fair Additional Orders/Day of Discharge Day of Discharge: 06/04/21 Dietary and Speech Recommendations Dietitian Recommendations/Changes: Continue Cardiac 1600 calorie controlled diet. ONS does not appear indicated at this time- eating better w/ no open wounds per nursing staff. 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 Discharge Plan Admission Admit Date/Time: 05/26/21 21:11 Primary Reason for Your Visit: CHF, bacteremia Attending Provider: Danae Coyle Primary Care Provider: Emerita Gottlieb Consulting Providers: Jose Antonio Dorado ; Jon Lyon ; Truong Billy ; Adelita Anne STITCHER SPECIAL MACHINE ; Annelise Sprague Instructions Patient Instructions: ED Chest Pain, Noncardiac Additional Instructions / Restrictions: Patient Problems: Altered Health Status related to Hospitalization Patient Goals: *Optimal Level of Health *Keep Appointments *Medication Compliance *Remain Safe Discharge Orders/Prescriptions Prescriptions: New isosorbide mononitrate 60 mg Tablet Extended Release 24 Hr 60 mg PO DAILY Qty: 30 RF: 0 amoxicillin 500 mg Capsule 500 mg PO Q8 Qty: 15 RF: 0 potassium chloride 10 mEq capsule, extended release 20 meq PO DAILY Qty: 30 RF: 0 Lantus Solostar U-100 Insulin 100 unit/mL (3 mL) Insulin Pen 25 unit subcut BID Qty: 3 RF: 0 furosemide 40 mg tablet 40 mg PO BID Qty: 1 RF: 0 Continued levetiracetam 500 mg tablet 500 mg PO BID RF: 0 atorvastatin 20 mg tablet 20 mg PO QHS RF: 0 bisacodyl 10 mg suppository 10 mg RC Q8 PRN (Reason: Constipation) RF: 0 latanoprost 0.005 % drops 1 drp EACH EYE QHS RF: 0 senna 8.6 mg capsule 8.6 mg PO BID RF: 0 prasugrel 10 MG tablet 10 mg PO DAILY RF: 0 duloxetine 30 MG capsule,delayed release(DR/EC) 30 mg PO DAILY RF: 0 omeprazole 20 MG capsule 20 mg PO DAILY RF: 0 acetaminophen 325 MG tablet 650 mg PO Q6H PRN PRN (Reason: Pain Score 1-10/Temp > 100.7 F) RF: 0 nitroglycerin 0.4 MG tablet, sublingual 0.4 mg SUBLINGUAL PRN PRN (Reason: chest pain) RF: 0 fluticasone propionate 1 SPRAY spray,suspension 2 spray NARES BID RF: 0 insulin lispro 100 unit/mL insulin pen 15 unit SC TIDCM RF: 0 polyethylene glycol 3350 [Miralax] 17 gram Powder In Packet 17 g PO DAILY PRN (Reason: Constipation) RF: 0 magnesium hydroxide [Milk of Magnesia] 400 mg/5 mL Suspension 400 mg PO DAILY PRN (Reason: Constipation) RF: 0 bisacodyl [Dulcolax (bisacodyl)] 5 mg Tablet,Delayed Release (Dr/Ec) 5 mg PO BID PRN (Reason: Constipation) RF: 0 Xarelto 15 mg Tablet 15 mg PO DINNER Qty: 1 RF: 0 trazodone 50 mg Tablet 50 mg PO QHS RF: 0 cetirizine [Zyrtec] 10 mg Tablet 10 mg PO DAILY RF: 0 donepezil [Aricept] 10 mg Tablet 10 mg PO DAILY RF: 0 levothyroxine [Synthroid] 50 mcg Tablet 50 mcg PO DAILY RF: 0 memantine 10 mg Tablet 10 mg PO BID RF: 0 potassium chloride 20 mEq Tablet Extended Release 20 meq PO MOWEFR RF: 0 Changed Lantus Solostar U-100 Insulin 100 unit/mL (3 mL) Insulin Pen 25 unit subcut BID Qty: 1 RF: 0 Discontinued furosemide 20 mg tablet 20 mg PO BID RF: 0 isosorbide mononitrate 30 MG tablet 90 mg PO DAILY RF: 0 amlodipine 5 MG tablet 5 mg PO DAILY RF: 0 No Action metoprolol succinate 50 MG tablet extended release 24 hr 50 mg PO DAILY RF: 0 Referrals / Follow Up: Jose Antonio Dorado MD [STAFF PHYSICIAN] - Within 1 Month Tiffanie Salgado NP, MARJ-C [NON-STAFF] - 06/05/21 10:00 am Disposition Disposition (needs filled in before D/C Order can be placed): [facility] Charges/Coding Visit Charges Inpatient E&M: [id number] [facility]
--- NOTE | 2021-06-04 15:47 | CASEMGMT ---
MINAL arranged for patient to get picked up at 5p via [facility] van. MINAL is awaiting orders to fax. MINAL called [facility] and Margarita Cole is off on leave so MINAL let Freda on the coverage line know patient will be going to [facility] today. MINAL will fax orders once completed. Tonja Benavidez CORPORATE TRUST OFFICERArnaldo SAVAGE
--- NOTE | 2021-06-04 15:57 | CASEMGMT ---
MINAL called patient's daughter Cinthia. MINAL spoke with her daughter and let her know patient will be going to [facility] today and she will get picked up at 5p. MINAL also called J Luis at [facility] and let her know patient will get picked up at 5 and orders will be faxed soon. Plan: d/c to [facility] under skilled level of care on convalescent stay. [facility] transported via van. Tonja SAVAGE
[2021-06-04] MEDS: Rivaroxaban 15 MG Tablet PO (16:16)
[2021-06-04 16:26] LABS: Bedside Glucose 334 mg/dL (70-110)
--- NOTE | 2021-06-04 16:42 | NURSING ---
report called to [facility]
== END 2021-06-04 17:40 | disposition skilled nursing facility (03) | DRG 871 ==
LOC: ED 17:27 → ICU 05-27 01:19 → PCU 05-29 17:05
PROVIDERS: Internal Medicine; Internal Medicine Nephrology; Admitting Provider Internal Medicine; Emergency Provider Emergency Medicine; PCP Internal Medicine; Visit Provider Student in an Organized Health Care Education/Training Program
DX: A40.1 Sepsis due to streptococcus, group B (principal); I50.43 Acute on chronic combined systolic (congestive) and diastolic (congestive) heart failure; J96.01 Acute respiratory failure with hypoxia; G93.41 Metabolic encephalopathy; J18.9 Pneumonia, unspecified organism; I13.0 Hypertensive heart and chronic kidney disease with heart failure and stage 1 through stage 4 chronic kidney disease, or unspecified chronic kidney disease; N18.4 Chronic kidney disease, stage 4 (severe); I48.11 Longstanding persistent atrial fibrillation; I25.110 Atherosclerotic heart disease of native coronary artery with unstable angina pectoris; Z68.41 Body mass index [BMI] 40.0-44.9, adult; N17.9 Acute kidney failure, unspecified; E78.5 Hyperlipidemia, unspecified; E11.22 Type 2 diabetes mellitus with diabetic chronic kidney disease; E11.51 Type 2 diabetes mellitus with diabetic peripheral angiopathy without gangrene; F02.80 Dementia in other diseases classified elsewhere, unspecified severity, without behavioral disturbance, psychotic disturbance, mood disturbance, and anxiety; G30.9 Alzheimer's disease, unspecified; K21.9 Gastro-esophageal reflux disease without esophagitis; E66.01 Morbid (severe) obesity due to excess calories; M19.90 Unspecified osteoarthritis, unspecified site; G47.30 Sleep apnea, unspecified; E89.0 Postprocedural hypothyroidism; R65.20 Severe sepsis without septic shock; Z66 Do not resuscitate; Y95 Nosocomial condition; F41.9 Anxiety disorder, unspecified; F32.9 Major depressive disorder, single episode, unspecified; I35.0 Nonrheumatic aortic (valve) stenosis; I87.2 Venous insufficiency (chronic) (peripheral); I15.2 Hypertension secondary to endocrine disorders; Z95.5 Presence of coronary angioplasty implant and graft; Z79.899 Other long term (current) drug therapy; Z79.51 Long term (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 of inhaled steroids; Z79.4 Long term (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 of insulin; Z79.01 Long term (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 of anticoagulants; Z87.891 Personal history of nicotine dependence; Z95.0 Presence of cardiac pacemaker
CPT/HCPCS: 36415; 36600; 51702; 70450; 71045; 71250; 76770; 80048; 80053; 80061; 80069; 81001; 82570; 82803; 82962; 83605; 83735; 83880; 84100; 84443; 84484; 84540; 85025; 85610; 85730; 87040; 87077; 87086; 87149; 87186; 87426; 87449; 87493; 87633; 87641; 93005; 93306; 94002; 94003; 94640; 94660; 94762; 97110; 97116; 97162; 97166; 97530; 97535; 97803; 99285; J7040; J7050; Q9957; A4216; C8929; J1940; J3490

== ENCOUNTER 2021-07-13 11:35 | Emergency (ER) | payer MEDICARE, MEDICAID, SELFPAY ==
[2021-07-13 11:36] VITALS: BP 172/79; PULSE 60; RESP 18; TEMP 36.7; O2SAT 100; BMI 39.3
--- NOTE | 2021-07-13 11:42 | EKG12_ITS ---
Test Reason : CP Blood Pressure : / mmHG Vent. Rate : 060 BPM Atrial Rate : 058 BPM P-R Int : 000 ms QRS Dur : 168 ms QT Int : 512 ms P-R-T Axes : 000 -74 083 degrees QTc Int : 512 ms Ventricular-paced rhythm Abnormal ECG Confirmed by MARICARMEN GALINDO, MARCK ([id number]), managing editor WILLIS HAWKINS ([id number]) on 07/16/2021 1:10:21 PM Referred By: CAPRICE Confirmed By:MARCK HERNADEZ MD
--- NOTE | 2021-07-13 11:42 | RAD_ITS ---
STUDY: X-RAY CHEST REASON FOR EXAM: Female, 75 years old. Chest pain TECHNIQUE: Single AP portable view of the chest. COMPARISON: Comparison is made with prior study 05/27/2021. FINDINGS: EKG electrodes are seen. Mesenteric congestion and CHF. Bibasilar atelectasis more prominent on the right side with the blunting of both costophrenic angles. There is mild cardiac enlargement. Left-sided unipolar pacemaker seen. A loop recording device is once again seen. Normal mediastinum and susan. Normal visualized pulmonary arteries. There is atherosclerotic calcification of the aortic arch with tortuosity. There are diffuse degenerative changes of the visualized thoracic spine. Normal visualized ribs, clavicles, and shoulders. There is no demonstrated abnormality of the visualized soft tissue structures of the upper abdomen. RAD/Chest 1 View (Portable) IMPRESSION: CHF. Electronically Signed: Santiago Kwok MD at 13:09 EDT , Service support ,
[2021-07-13 12:03] VITALS: BP 151/70; PULSE 60; RESP 17; O2SAT 93
[2021-07-13 12:07] VITALS: O2SAT 97
[2021-07-13 12:23] LABS: Absolute Lymphocyte Count 1.64 X10^3/uL (0.83-4.51); Absolute Neutrophil Count 5.5 X10^3/uL (2.0-7.7); Basophil# 0.06 X10^3/uL; Basophil% 0.7 % (0-1); Eosinophil# 0.23 X10^3/uL; Eosinophils% 2.9 % (0-5); Hemoglobin 9.9 g/dL (12.0-15.0); Lymphocyte # 1.64 X10^3/ul (0.83-4.51); Lymphocyte % 20.4 % (19-41); Mean Corp Hgb Conc 29.1 g/dL (32-36); Mean Corpuscular Hgb 23.3 pg (27.0-32.0); Monocyte# 0.59 X10^3/uL; Monocyte% 7.3 % (0-10); NRBC Flagged by Analyzer 0 % (0-5); Neutrophil # 5.49 X10^3/uL (2.7-7.7); Neutrophil % 68.5 % (47-70); Platelet Count 238 K/mm3 (150-450); RBC Distribution Width CV 16.6 % (11.6-14.6); RBC Distribution Width SD 47.4 fl (35.1-43.9); Red Blood Count 4.25 M/mm3 (4.2-5.4)
[2021-07-13 12:40] LABS: Anion Gap 6 (5-15); BUN 23 mg/dL (7-18); BUN/Creat Ratio 16.9 RATIO (10-20); Chloride 102 mmol/L (98-107); Creatinine, Serum 1.36 mg/dL (0.55-1.02); EST Glomerular Filtration Rate 40 mL/min (>60); Est Glom Filt Rate - Afr Amer 48 mL/min (>60); Estimated Creatinine Clearance 29.91 ml/min; Glucose 190 mg/dL (74-106); Potassium 4.1 mmol/L (3.5-5.1); Sodium Level 140 mmol/L (136-145); Troponin-I HS 34 pg/mL (3.0-54.0)
[2021-07-13 13:47] VITALS: BP 156/79; PULSE 60; RESP 18; O2SAT 97
[2021-07-13 14:48] LABS: Troponin-I HS 34 pg/mL (3.0-54.0)
[2021-07-13 15:22] VITALS: BP 129/72; PULSE 60; RESP 18; O2SAT 97
--- NOTE | 2021-07-13 15:43 | ED.VIS.CHEST ---
HPI History of Present Illness Chief Complaint: Chest Pain Informant: patient Onset/Context/Timing Onset: Yesterday Location: Left Chest Current Severity: Mild Maximum Severity: Moderate Narrative Narrative: Patient presents secondary to left upper chest pain. Patient states pain has been present since yesterday. It is in the left upper chest and will sometimes radiate down her left arm. She states she has had this pain in the past but it has been constant since yesterday. She does report increased shortness of breath recently and feeling that she needs to wear her oxygen more than normal. [facility] Medical History Alzheimer disease Anemia Anemia due to chronic illness Angina pectoris Anxiety Aortic stenosis Atherosclerosis of coronary artery without angina pectoris Bone cancer Bundle branch block CAD (coronary artery disease) Cholelithiasis Chronic back pain Chronic diastolic (congestive) heart failure Chronic kidney disease, stage 3b Chronic pain CKD (chronic kidney disease) stage 3, GFR 30-59 ml/min Congestive heart failure Congestive heart failure (CHF) Debility Dementia Depression Diabetes Dysphagia Essential (primary) hypertension GERD (gastroesophageal reflux disease) Goiter History of urinary incontinence HTN (hypertension) Hyperlipidemia Hypothyroidism Kidney disease Longstanding persistent atrial fibrillation Metabolic encephalopathy Moderate aortic stenosis Morbid obesity Noncompliance 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 Nonrheumatic aortic (valve) stenosis Osteoarthritis Osteoarthritis PVD (peripheral vascular disease) Right bundle branch block (RBBB) Seizures Sick sinus syndrome Sleep apnea Stroke Type II diabetes mellitus Home Medications metoprolol succinate 50 mg PO DAILY 10/11/17 [History Last Taken 05/18/20] prasugrel 10 mg PO DAILY 06/04/18 [History Last Taken 05/18/20] duloxetine 30 mg PO DAILY 11/18/18 [History Last Taken 05/18/20] levetiracetam 500 mg tablet 500 mg PO BID tab 04/19/20 [History Last Taken 05/18/20] omeprazole 20 mg PO DAILY 05/18/20 [History Last Taken 05/18/20] acetaminophen 650 mg PO Q6H PRN PRN tab 05/22/20 [Rx Last Taken Unknown] fluticasone propionate 2 spray NARES BID 12/13/20 [History Last Taken Unknown] nitroglycerin 0.4 mg SUBLINGUAL PRN PRN 12/13/20 [History Last Taken Unknown] atorvastatin 20 mg tablet 20 mg PO QHS 01/05/21 [History Last Taken Unknown] bisacodyl 10 mg rectal suppository 10 mg RC Q8 PRN 01/05/21 [History Last Taken Unknown] insulin lispro 100 unit/mL subcutaneous pen 15 unit SC TIDCM ml 01/05/21 [History Last Taken Unknown] latanoprost 0.005 % eye drops 1 drp EACH EYE QHS 01/05/21 [History Last Taken Unknown] sennosides 8.6 mg capsule 8.6 mg PO BID 01/05/21 [History Last Taken Unknown] bisacodyl [Dulcolax (bisacodyl)] 5 mg PO BID PRN 04/02/21 [History Last Taken Unknown] magnesium hydroxide [Milk of Magnesia] 400 mg PO DAILY PRN 04/02/21 [History Last Taken Unknown] polyethylene glycol 3350 [Miralax] 17 g PO DAILY PRN 04/02/21 [History Last Taken Unknown] Xarelto 15 mg PO DINNER #1 tab 04/09/21 [Rx Last Taken Unknown] cetirizine [Zyrtec] 10 mg PO DAILY 05/26/21 [History Last Taken Unknown] donepezil [Aricept] 10 mg PO DAILY 05/26/21 [History Last Taken Unknown] levothyroxine [Synthroid] 50 mcg PO DAILY 05/26/21 [History Last Taken Unknown] memantine 10 mg PO BID 05/26/21 [History Last Taken Unknown] potassium chloride 20 meq PO MOWEFR 05/26/21 [History Last Taken Unknown] trazodone 50 mg PO QHS 05/26/21 [History Last Taken Unknown] Lantus Solostar U-100 Insulin 25 unit SUBCUT BID #1 ml 06/02/21 [Rx Last Taken Unknown] amoxicillin 500 mg PO Q8 #15 cap 06/02/21 [Rx Last Taken Unknown] isosorbide mononitrate 60 mg PO DAILY #30 tab 06/02/21 [Rx Last Taken Unknown] potassium chloride 20 meq PO DAILY #30 cap 06/02/21 [Rx Last Taken Unknown] furosemide 40 mg PO BID #1 tab 06/03/21 [Rx Last Taken Unknown] insulin glargine [Lantus Solostar U-100 Insulin] 25 unit SUBCUT BID #3 ml 06/03/21 [Rx Last Taken Unknown] Allergy/AdvReac Type Severity Reaction Status Date / Time atorvastatin calcium Allergy dont Verified 05/26/21 17:05 [From Lipitor] remember codeine Allergy Rash Verified 05/26/21 17:05 iodine Allergy Rash Verified 05/26/21 17:05 Latex, Natural Rubber Allergy Rash Verified 05/26/21 17:05 lovastatin Allergy Rash Verified 05/26/21 17:05 rosuvastatin calcium Allergy rash\ Verified 05/26/21 17:05 [From Crestor] tositumomab Allergy PT UNSURE Verified 05/26/21 17:05 OF REACTION naproxen [From Naprosyn] AdvReac Upset Verified 05/26/21 17:05 Stomach pregabalin [From Lyrica] AdvReac Upset Verified 05/26/21 17:05 Stomach Sulfa (Sulfonamide AdvReac Upset Verified 05/26/21 17:05 Antibiotics) Stomach Family History Other Cancer Surgical History History of coronary artery stent placement (01/25/11) History of hysterectomy History of left heart catheterization (04/04/21) History of loop recorder (2013) History of permanent cardiac pacemaker placement (03/05/17) History of thyroidectomy Social History household members: none housing: assisted Smoking Status: Former smoker details: Not presently substance use type: does not use ROS ROS ED Constitutional Constitutional ED: Denies chills or fever(s) Eyes Eyes: Denies change in vision ENT ENT ED: Denies sore throat Cardiovascular Cardiovascular: Reports chest pain Respiratory/Chest Respiratory/Chest: Reports dyspnea; Denies cough Gastrointestinal Gastrointestinal: Denies abdominal pain, diarrhea, nausea or vomiting Genitourinary Genitourinary ED: Denies dysuria Musculoskeletal Musculoskeletal: Denies back pain Integumentary Denies rash Neurologic Neurologic: Denies headache(s) or weakness Allergic/Immunologic Allergic/Immunologic ED: Denies urticaria EXAM Physical Exam Const Vital Signs: 07/13/21 11:36 07/13/21 12:03 07/13/21 12:07 Temperature 98.0 F Temperature Source Temporal Pulse Rate 60 60 Respiratory Rate 18 17 Respiratory Effort Normal Non-Labored Blood Pressure 172/79 H 151/70 H Blood Pressure Mean 110 97 Pulse Ox 100 93 97 Oxygen Delivery Method Nasal Cannula Nasal Cannula Nasal Cannula Oxygen Flow Rate (L/min) 4 2 2 07/13/21 13:47 07/13/21 15:22 07/13/21 15:58 Temperature Temperature Source Pulse Rate 60 60 63 Respiratory Rate 18 18 17 Respiratory Effort Blood Pressure 156/79 H 129/72 H 124/79 H Blood Pressure Mean 104 91 Pulse Ox 97 97 96 Oxygen Delivery Method Nasal Cannula Nasal Cannula Oxygen Flow Rate (L/min) 2 2 Positive well nourished and well developed General Appearance ED: well developed HEENT normocephalic Eyes PERRL Neck supple Chest Wall inspection of chest normal and palpation of chest normal Resp normal respiratory effort Effort and Inspection: respiratory distress Cardio regular rate and regular rhythm GI normal to inspection, nondistended, normoactive bowel sounds and soft to palpation Extremity Extremity Narrative: 3+ bilateral lower extremity edema. General Extremety ED: Yes edema General Extremity: edema and other findings Neuro Sensorium / Orientation: awake and alert Heart Score History: Moderately Suspicious ECG: Normal Age: >/= 65 years Risk Factors: >/= 3 Risk Factors or History of CAD Troponin: </= Normal Limit Score: 5 MDM MDM MDM Narrative Medical decision making narrative: Lab work, EKG, chest x-ray obtained. Lab Data Attestation: I reviewed the patient's lab results. Labs: Laboratory Results - last 24 hr 07/13/21 07/13/21 07/13/21 12:12 12:12 14:21 WBC 8.0 RBC 4.25 Hgb 9.9 L Hct 34.0 L MCV 80.0 L MCH 23.3 L MCHC 29.1 L RDW Std Deviation 47.4 H RDW Coeff of Candace 16.6 H Plt Count 238 MPV 11.0 Immature Gran % (Auto) 0.200 Neut % (Auto) 68.5 Lymph % (Auto) 20.4 Reynolds % (Auto) 7.3 Eos % (Auto) 2.9 Baso % (Auto) 0.7 Absolute Neuts (auto) 5.5 Absolute Lymphs (auto) 1.64 Nucleated RBC % 0 Sodium 140 Potassium 4.1 Chloride 102 Carbon Dioxide 32.0 Anion Gap 6 BUN 23 H Creatinine 1.36 H Estim Creat Clear Calc 29.91 Est GFR (MDRD) Af Amer 48 L Est GFR (MDRD) Non-Af 40 L BUN/Creatinine Ratio 16.9 Glucose 190 H Calcium 9.0 Troponin I High Sens 34 34 Radiography Chest X-Ray - ED: 1 View, Read by ED Physician and CHF Diagnostic Testing: Radiology Impression Chest X-Ray 07/13/21 11:42 IMPRESSION: CHF. Electronically Signed: Santiago Kwok MD at 13:09 EDT , Service support , EKG Initial EKG: Attestation: I personally reviewed and interpreted this EKG as follows: Interpretation: - (Ventricular paced rhythm at 60. No significant ST change.) Treatment and Re-Evaluation Comments:: Initial blood work unremarkable. Troponin is 34. 2-hour repeat is obtained and unchanged. Patient's chest x-ray is consistent with fluid overload. She is already on 40 mg of Lasix twice daily. For the next 5 days they will give her 80 mg in the morning and 40 in the evening. Test results are discussed with the patient she is in agreement this plan. Discharge Plan Triage Chief Complaint: Chest Pain ED Provider: Leena Han Dx/Rx/DC Orders Clinical Impression: Chest pain, CHF (congestive heart failure) Instructions: ED Chest Pain, Noncardiac, ED Heart Failure, Congestive (CHF) Prescriptions: No Action levetiracetam 500 mg tablet 500 mg PO BID RF: 0 atorvastatin 20 mg tablet 20 mg PO QHS RF: 0 bisacodyl 10 mg suppository 10 mg RC Q8 PRN (Reason: Constipation) RF: 0 latanoprost 0.005 % drops 1 drp EACH EYE QHS RF: 0 senna 8.6 mg capsule 8.6 mg PO BID RF: 0 metoprolol succinate 50 MG tablet extended release 24 hr 50 mg PO DAILY RF: 0 prasugrel 10 MG tablet 10 mg PO DAILY RF: 0 duloxetine 30 MG capsule,delayed release(DR/EC) 30 mg PO DAILY RF: 0 omeprazole 20 MG capsule 20 mg PO DAILY RF: 0 acetaminophen 325 MG tablet 650 mg PO Q6H PRN PRN (Reason: Pain Score 1-10/Temp > 100.7 F) RF: 0 nitroglycerin 0.4 MG tablet, sublingual 0.4 mg SUBLINGUAL PRN PRN (Reason: chest pain) RF: 0 fluticasone propionate 1 SPRAY spray,suspension 2 spray NARES BID RF: 0 insulin lispro 100 unit/mL insulin pen 15 unit SC TIDCM RF: 0 polyethylene glycol 3350 [Miralax] 17 gram Powder In Packet 17 g PO DAILY PRN (Reason: Constipation) RF: 0 magnesium hydroxide [Milk of Magnesia] 400 mg/5 mL Suspension 400 mg PO DAILY PRN (Reason: Constipation) RF: 0 bisacodyl [Dulcolax (bisacodyl)] 5 mg Tablet,Delayed Release (Dr/Ec) 5 mg PO BID PRN (Reason: Constipation) RF: 0 Xarelto 15 mg Tablet 15 mg PO DINNER Qty: 1 RF: 0 trazodone 50 mg Tablet 50 mg PO QHS RF: 0 cetirizine [Zyrtec] 10 mg Tablet 10 mg PO DAILY RF: 0 donepezil [Aricept] 10 mg Tablet 10 mg PO DAILY RF: 0 levothyroxine [Synthroid] 50 mcg Tablet 50 mcg PO DAILY RF: 0 memantine 10 mg Tablet 10 mg PO BID RF: 0 potassium chloride 20 mEq Tablet Extended Release 20 meq PO MOWEFR RF: 0 isosorbide mononitrate 60 mg Tablet Extended Release 24 Hr 60 mg PO DAILY Qty: 30 RF: 0 amoxicillin 500 mg Capsule 500 mg PO Q8 Qty: 15 RF: 0 potassium chloride 10 mEq capsule, extended release 20 meq PO DAILY Qty: 30 RF: 0 Lantus Solostar U-100 Insulin 100 unit/mL (3 mL) Insulin Pen 25 unit subcut BID Qty: 1 RF: 0 Lantus Solostar U-100 Insulin 100 unit/mL (3 mL) Insulin Pen 25 unit subcut BID Qty: 3 RF: 0 furosemide 40 mg tablet 40 mg PO BID Qty: 1 RF: 0 Primary Care Provider: Emerita Gottlieb Referrals: Emerita Gottlieb MD [Primary Care Provider] - 1 Week Disposition Disposition: Home, Self Care
[2021-07-13 15:58] VITALS: BP 124/79; PULSE 63; RESP 17; O2SAT 96
--- NOTE | 2021-07-13 16:01 | NURSING ---
CALLED [facility], ETA IS 90 MIN
--- NOTE | 2021-07-13 16:35 | NURSING ---
attempted callback to patient's daughter, Cinthia, no answer at [phone]. Mailbox was full, no message left
== END 2021-07-13 17:19 | disposition home or self-care (01) ==
PROVIDERS: Emergency Provider Emergency Medicine; PCP Internal Medicine
DX: R07.9 Chest pain, unspecified (principal); I50.32 Chronic diastolic (congestive) heart failure; I25.119 Atherosclerotic heart disease of native coronary artery with unspecified angina pectoris; Z87.891 Personal history of nicotine dependence
CPT/HCPCS: 71045; 80048; 84484; 85025; 93005; 99284; A4216

== ENCOUNTER → 2021-08-15 05:00 | Outpatient (REF) | payer MEDICARE, MEDICAID, SELFPAY ==
[2021-08-15 08:49] LABS: Hematocrit 33.9 % (37-47); Hemoglobin 9.6 g/dL (12.0-15.0); Mean Corp Hgb Conc 28.3 g/dL (32-36); Mean Corpuscular Hgb 22.5 pg (27.0-32.0); Mean Corpuscular Volume 79.6 fL (81-99); Mean Platelet Vol. 11.8 fl (6.2-12.0); Platelet Count 238 K/mm3 (150-450); RBC Distribution Width SD 48.5 fl (35.1-43.9); Red Blood Count 4.26 M/mm3 (4.2-5.4); White Blood Count 9.7 K/mm3 (4.4-11.0)
[2021-08-15 09:34] LABS: Anion Gap 2 (5-15); BUN 21 mg/dL (7-18); BUN/Creat Ratio 18.1 RATIO (10-20); Chloride 106 mmol/L (98-107); Creatinine, Serum 1.16 mg/dL (0.55-1.02); EST Glomerular Filtration Rate 48 mL/min (>60); Est Glom Filt Rate - Afr Amer 58 mL/min (>60); Glucose 135 mg/dL (74-106); Sodium Level 140 mmol/L (136-145); Thyroid Stim Hormone (TSH) 2.01 uIU/mL (0.358-3.74)
[2021-08-15 09:37] LABS: Hemoglobin A1c 6.4 % (3.8-5.6)
== END ==
LOC: OLS.SWAL 05:00
PROVIDERS: PCP Internal Medicine; Visit Provider Internal Medicine
DX: E11.9 Type 2 diabetes mellitus without complications (principal); E03.9 Hypothyroidism, unspecified
CPT/HCPCS: 36415; 80048; 83036; 84443; 85027

== ENCOUNTER 2021-08-15 08:24 | Emergency (ER) | payer MEDICARE, MEDICAID, SELFPAY ==
[2021-08-15 08:26] VITALS: BP 168/76; PULSE 60; RESP 24; TEMP 36.6; O2SAT 97; BMI 44.7
[2021-08-15 08:34] VITALS: BP 168/76; PULSE 60; RESP 18; TEMP 36.6; O2SAT 98
--- NOTE | 2021-08-15 09:13 | EKG12_ITS ---
Test Reason : CP Blood Pressure : / mmHG Vent. Rate : 060 BPM Atrial Rate : 326 BPM P-R Int : 000 ms QRS Dur : 168 ms QT Int : 520 ms P-R-T Axes : 000 -82 086 degrees QTc Int : 520 ms Ventricular-paced rhythm Abnormal ECG Confirmed by MARIANELA GALINDO, NAVEEN ([id number]), business editor WILLIS HAWKINS ([id number]) on 08/20/2021 9:57:19 AM Referred By: SENDY Confirmed By:CARMEN BEAR MD
--- NOTE | 2021-08-15 09:20 | RAD_ITS ---
STUDY: X-RAY CHEST REASON FOR EXAM: Female, 76 years old. chest pain TECHNIQUE: AP COMPARISON: 07/13/2021 FINDINGS: Cardiac conduction device is stable. Central pulmonary vascular congestion and interstitial opacities overall similar. Atelectasis or scarring in the lung bases. Small right pleural effusion is not substantially changed accounting for variation in patient positioning. Surgical clips overlie the base of the neck on the left side. A Reveal insertable limb driver projects over the left chest. There is mild cardiac enlargement. Normal mediastinum and susan. There is prominence of the pulmonary hilar arteries and peripheral pulmonary arteries, consistent with congestive heart failure (CHF). There is atherosclerotic calcification of the aortic arch with tortuosity. No acute bony process. There is no demonstrated abnormality of the visualized soft tissue structures of the upper abdomen. RAD/Chest 1 View (Portable) IMPRESSION: 1. Stable CHF with small right pleural effusion. Electronically Signed: Naseem Swanson MD (Brooks) at 9:34 EDT , Service support ,
[2021-08-15 09:24] VITALS: O2SAT 95
[2021-08-15 09:24] LABS: Absolute Lymphocyte Count 1.92 X10^3/uL (0.83-4.51); Basophil# 0.04 X10^3/uL; Basophil% 0.4 % (0-1); Eosinophil# 0.27 X10^3/uL; Eosinophils% 2.7 % (0-5); Hematocrit 37.5 % (37-47); Hemoglobin 10.5 g/dL (12.0-15.0); Lymphocyte # 1.92 X10^3/ul (0.83-4.51); Lymphocyte % 19.3 % (19-41); Mean Corpuscular Hgb 22.3 pg (27.0-32.0); Mean Corpuscular Volume 79.6 fL (81-99); Mean Platelet Vol. 11.6 fl (6.2-12.0); Monocyte# 0.71 X10^3/uL; Monocyte% 7.1 % (0-10); NRBC Flagged by Analyzer 0 % (0-5); Neutrophil # 6.98 X10^3/uL (2.7-7.7); Neutrophil % 70.1 % (47-70); Platelet Count 265 K/mm3 (150-450); RBC Distribution Width CV 16.8 % (11.6-14.6); RBC Distribution Width SD 48.8 fl (35.1-43.9); Red Blood Count 4.71 M/mm3 (4.2-5.4)
[2021-08-15] MEDS: Aspirin 325 MG Tablet PO (09:32)
[2021-08-15 09:37] LABS: Anion Gap 1 (5-15); BUN 21 mg/dL (7-18); BUN/Creat Ratio 17.9 RATIO (10-20); Calcium,Total 9.2 mg/dL (8.5-10.1); Chloride 104 mmol/L (98-107); Creatinine, Serum 1.17 mg/dL (0.55-1.02); EST Glomerular Filtration Rate 48 mL/min (>60); Est Glom Filt Rate - Afr Amer 58 mL/min (>60); Glucose 148 mg/dL (74-106); Potassium 3.9 mmol/L (3.5-5.1); Sodium Level 139 mmol/L (136-145); Troponin-I HS 37 pg/mL (3.0-54.0)
[2021-08-15 10:24] VITALS: O2SAT 94
--- NOTE | 2021-08-15 11:03 | EDS_ITS ---
HPI History of Present Illness Chief Complaint: Chest Pain Narrative Narrative: Patient is a 76-year-old female from the sn[facility] with a past medical history of metabolic encephalopathy hypertension diabetes dementia morbid obesity chronic kidney disease chronic atrial fibrillation as well as congestive heart failure. Reportedly patient complains of recurrent chest pain and snf sent her in for evaluation today. Reportedly patient is at her baseline mental status per snf. Upon arrival to the ER the patient states she does not know why she is here and does not voice any complaints PFSH PFS Medical History Alzheimer disease Anemia Anemia due to chronic illness Angina pectoris Anxiety Aortic stenosis Atherosclerosis of coronary artery without angina pectoris Bone cancer Bundle branch block CAD (coronary artery disease) Cholelithiasis Chronic back pain Chronic diastolic (congestive) heart failure Chronic kidney disease, stage 3b Chronic pain CKD (chronic kidney disease) stage 3, GFR 30-59 ml/min Congestive heart failure Congestive heart failure (CHF) Debility Dementia Depression Diabetes Dysphagia Essential (primary) hypertension GERD (gastroesophageal reflux disease) Goiter History of urinary incontinence HTN (hypertension) Hyperlipidemia Hypothyroidism Kidney disease Longstanding persistent atrial fibrillation Metabolic encephalopathy Moderate aortic stenosis Morbid obesity Noncompliance 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 Nonrheumatic aortic (valve) stenosis Osteoarthritis Osteoarthritis PVD (peripheral vascular disease) Right bundle branch block (RBBB) Seizures Sick sinus syndrome Sleep apnea Stroke Type II diabetes mellitus Home Medications metoprolol succinate 50 mg PO DAILY 10/11/17 [History Last Taken 05/18/20] prasugrel 10 mg PO DAILY 06/04/18 [History Last Taken 05/18/20] duloxetine 30 mg PO DAILY 11/18/18 [History Last Taken 05/18/20] levetiracetam 500 mg tablet 500 mg PO BID tab 04/19/20 [History Last Taken 05/18/20] omeprazole 20 mg PO DAILY 05/18/20 [History Last Taken 05/18/20] acetaminophen 650 mg PO Q6H PRN PRN tab 05/22/20 [Rx Last Taken Unknown] fluticasone propionate 2 spray NARES BID 12/13/20 [History Last Taken Unknown] nitroglycerin 0.4 mg SUBLINGUAL PRN PRN 12/13/20 [History Last Taken Unknown] atorvastatin 20 mg tablet 20 mg PO QHS 01/05/21 [History Last Taken Unknown] bisacodyl 10 mg rectal suppository 10 mg RC Q8 PRN 01/05/21 [History Last Taken Unknown] insulin lispro 100 unit/mL subcutaneous pen 15 unit SC TIDCM ml 01/05/21 [History Last Taken Unknown] latanoprost 0.005 % eye drops 1 drp EACH EYE QHS 01/05/21 [History Last Taken Unknown] sennosides 8.6 mg capsule 8.6 mg PO BID 01/05/21 [History Last Taken Unknown] bisacodyl [Dulcolax (bisacodyl)] 5 mg PO BID PRN 04/02/21 [History Last Taken Unknown] magnesium hydroxide [Milk of Magnesia] 400 mg PO DAILY PRN 04/02/21 [History Last Taken Unknown] polyethylene glycol 3350 [Miralax] 17 g PO DAILY PRN 04/02/21 [History Last Taken Unknown] Xarelto 15 mg PO DINNER #1 tab 04/09/21 [Rx Last Taken Unknown] cetirizine [Zyrtec] 10 mg PO DAILY 05/26/21 [History Last Taken Unknown] donepezil [Aricept] 10 mg PO DAILY 05/26/21 [History Last Taken Unknown] levothyroxine [Synthroid] 50 mcg PO DAILY 05/26/21 [History Last Taken Unknown] memantine 10 mg PO BID 05/26/21 [History Last Taken Unknown] potassium chloride 20 meq PO MOWEFR 05/26/21 [History Last Taken Unknown] trazodone 50 mg PO QHS 05/26/21 [History Last Taken Unknown] Lantus Solostar U-100 Insulin 25 unit SUBCUT BID #1 ml 06/02/21 [Rx Last Taken Unknown] amoxicillin 500 mg PO Q8 #15 cap 06/02/21 [Rx Last Taken Unknown] isosorbide mononitrate 60 mg PO DAILY #30 tab 06/02/21 [Rx Last Taken Unknown] potassium chloride 20 meq PO DAILY #30 cap 06/02/21 [Rx Last Taken Unknown] furosemide 40 mg PO BID #1 tab 06/03/21 [Rx Last Taken Unknown] insulin glargine [Lantus Solostar U-100 Insulin] 25 unit SUBCUT BID #3 ml 06/03/21 [Rx Last Taken Unknown] Allergy/AdvReac Type Severity Reaction Status Date / Time atorvastatin calcium Allergy dont Verified 05/26/21 17:05 [From Lipitor] remember codeine Allergy Rash Verified 05/26/21 17:05 iodine Allergy Rash Verified 05/26/21 17:05 Latex, Natural Rubber Allergy Rash Verified 05/26/21 17:05 lovastatin Allergy Rash Verified 05/26/21 17:05 rosuvastatin calcium Allergy rash\ Verified 05/26/21 17:05 [From Crestor] tositumomab Allergy PT UNSURE Verified 05/26/21 17:05 OF REACTION naproxen [From Naprosyn] AdvReac Upset Verified 05/26/21 17:05 Stomach pregabalin [From Lyrica] AdvReac Upset Verified 05/26/21 17:05 Stomach Sulfa (Sulfonamide AdvReac Upset Verified 05/26/21 17:05 Antibiotics) Stomach Family History Other Cancer Surgical History History of coronary artery stent placement (01/25/11) History of hysterectomy History of left heart catheterization (04/04/21) History of loop recorder (2013) History of permanent cardiac pacemaker placement (03/05/17) History of thyroidectomy Social History household members: none housing: snf Smoking Status: Former smoker details: Not presently substance use type: does not use ROS ROS ED Review of Systems ROS Unobtainable: due to mental condition EXAM Physical Exam Const Vital Signs: 08/15/21 08:26 08/15/21 08:34 Temperature 97.8 F 97.8 F Temperature Source Oral Oral Pulse Rate 60 60 Respiratory Rate 24 H 18 Respiratory Effort Short of Breath Respiratory Pattern Normal Blood Pressure 168/76 H 168/76 H Blood Pressure Mean 106 106 Pulse Ox 97 98 Oxygen Delivery Method Nasal Cannula Room Air Oxygen Flow Rate (L/min) 2 2 Positive well nourished, well developed and obese General Appearance ED: well developed Nutritional Appearance: obese HEENT Reports dry mucous membranes Mouth ED: Yes dry mucous membranes Mouth: dry mucous membranes Eyes PERRL and EOMs intact bilaterally Neck supple and no JVD Neck Narrative: No meningeal signs Chest Wall palpation of chest normal Resp Resp Narrative: Breath sounds are diminished throughout with faint crackles in bilateral bases but no signs of respiratory distress Cardio regular rate and regular rhythm Rate: other Other Details: Radial pulses are +2-4 bilaterally are equal and symmetric GI normal to inspection, nondistended, normoactive bowel sounds, non-tender, non- distended and no masses GI Narrative: No voluntary guarding no rigidity no pulsatile mass Auscultation: normoactive bowel sounds Palpation: soft Extremity Extremity Narrative: Patient has +2-3 pitting edema to the bilateral lower extremities Neuro Neuro Narrative: Patient is at her baseline mental status which is confused but there is no focal neurologic deficit noted. Psych Psych Narrative: Patient has a flat/depressed affect Skin Skin Narrative: Patient has areas of ecchymosis across her body consistent with her history of blood thinner use as well as chronic stasis changes to her bilateral lower legs but no secondary changes to suggest infection MDM MDM MDM Narrative Medical decision making narrative: Patient presented to the ER in no acute distress at baseline mental status per snf. retirement reported patient was complaining of chest pain but she has no complaints at this time on my evaluation. With her complex past medical history I did elect to perform basic cardiac work-up. Labs revealed no clinically significant findings and chest x-ray revealed chronic changes but no acute or new findings. Therefore at this time with negative work-up I do not feel there is need for patient to be placed in the hospital and can follow-up with family doctor or cardiology on an outpatient basis Lab Data Attestation: I reviewed the patient's lab results. Labs: Laboratory Results - last 24 hr 08/15/21 08/15/21 08:55 08:55 WBC 10.0 RBC 4.71 Hgb 10.5 L Hct 37.5 MCV 79.6 L MCH 22.3 L MCHC 28.0 L RDW Std Deviation 48.8 H RDW Coeff of Candace 16.8 H Plt Count 265 MPV 11.6 Immature Gran % (Auto) 0.400 Neut % (Auto) 70.1 H Lymph % (Auto) 19.3 Stanley % (Auto) 7.1 Eos % (Auto) 2.7 Baso % (Auto) 0.4 Absolute Neuts (auto) 7.0 Absolute Lymphs (auto) 1.92 Nucleated RBC % 0 Sodium 139 Potassium 3.9 Chloride 104 Carbon Dioxide 34.0 H Anion Gap 1 L BUN 21 H Creatinine 1.17 H Estim Creat Clear Calc 29.90 Est GFR (MDRD) Af Amer 58 L Est GFR (MDRD) Non-Af 48 L BUN/Creatinine Ratio 17.9 Glucose 148 H Calcium 9.2 Troponin I High Sens 37 Radiography Diagnostic Testing: Clinical Impression(s) from Imaging Studies Chest X-Ray 08/15/21 09:20 IMPRESSION: 1. Stable CHF with small right pleural effusion. Electronically Signed: Naseem Swanson MD ([facility]) at 9:34 EDT , Service support , Discharge Plan Triage Chief Complaint: Chest Pain ED Provider: Josef Reyna Dx/Rx/DC Orders Clinical Impression: Nonspecific chest pain, Congestive heart failure (CHF), Current use of exterminator termite anticoagulation, Dementia Instructions: ED Heart Failure, Congestive (CHF), ED Chest Pain, Uncertain Cause Prescriptions: No Action levetiracetam 500 mg tablet 500 mg PO BID RF: 0 atorvastatin 20 mg tablet 20 mg PO QHS RF: 0 bisacodyl 10 mg suppository 10 mg RC Q8 PRN (Reason: Constipation) RF: 0 latanoprost 0.005 % drops 1 drp EACH EYE QHS RF: 0 senna 8.6 mg capsule 8.6 mg PO BID RF: 0 metoprolol succinate 50 MG tablet extended release 24 hr 50 mg PO DAILY RF: 0 prasugrel 10 MG tablet 10 mg PO DAILY RF: 0 duloxetine 30 MG capsule,delayed release(DR/EC) 30 mg PO DAILY RF: 0 omeprazole 20 MG capsule 20 mg PO DAILY RF: 0 acetaminophen 325 MG tablet 650 mg PO Q6H PRN PRN (Reason: Pain Score 1-10/Temp > 100.7 F) RF: 0 nitroglycerin 0.4 MG tablet, sublingual 0.4 mg SUBLINGUAL PRN PRN (Reason: chest pain) RF: 0 fluticasone propionate 1 SPRAY spray,suspension 2 spray NARES BID RF: 0 insulin lispro 100 unit/mL insulin pen 15 unit SC TIDCM RF: 0 polyethylene glycol 3350 [Miralax] 17 gram Powder In Packet 17 g PO DAILY PRN (Reason: Constipation) RF: 0 magnesium hydroxide [Milk of Magnesia] 400 mg/5 mL Suspension 400 mg PO DAILY PRN (Reason: Constipation) RF: 0 bisacodyl [Dulcolax (bisacodyl)] 5 mg Tablet,Delayed Release (Dr/Ec) 5 mg PO BID PRN (Reason: Constipation) RF: 0 Xarelto 15 mg Tablet 15 mg PO DINNER Qty: 1 RF: 0 trazodone 50 mg Tablet 50 mg PO QHS RF: 0 cetirizine [Zyrtec] 10 mg Tablet 10 mg PO DAILY RF: 0 donepezil [Aricept] 10 mg Tablet 10 mg PO DAILY RF: 0 levothyroxine [Synthroid] 50 mcg Tablet 50 mcg PO DAILY RF: 0 memantine 10 mg Tablet 10 mg PO BID RF: 0 potassium chloride 20 mEq Tablet Extended Release 20 meq PO MOWEFR RF: 0 isosorbide mononitrate 60 mg Tablet Extended Release 24 Hr 60 mg PO DAILY Qty: 30 RF: 0 amoxicillin 500 mg Capsule 500 mg PO Q8 Qty: 15 RF: 0 potassium chloride 10 mEq capsule, extended release 20 meq PO DAILY Qty: 30 RF: 0 Lantus Solostar U-100 Insulin 100 unit/mL (3 mL) Insulin Pen 25 unit subcut BID Qty: 1 RF: 0 Lantus Solostar U-100 Insulin 100 unit/mL (3 mL) Insulin Pen 25 unit subcut BID Qty: 3 RF: 0 furosemide 40 mg tablet 40 mg PO BID Qty: 1 RF: 0 Primary Care Provider: Emerita Gottlieb Referrals: Emerita Gottlieb MD [Primary Care Provider] - Disposition Disposition: Home, Self Care
--- NOTE | 2021-08-15 11:24 | NURSING ---
CALLED [facility], ETA IS 60 MIN
[2021-08-15 11:25] VITALS: BP 177/102; PULSE 60; RESP 20; TEMP 36.8; O2SAT 99
[2021-08-15 11:43] VITALS: BP 163/68; PULSE 60; RESP 20; O2SAT 99
--- NOTE | 2021-08-15 11:45 | ED.RN ---
This nurse called and updated both Nadir Cleve and the patient's daughter Cinthia.
== END 2021-08-15 12:13 | disposition home or self-care (01) ==
PROVIDERS: Emergency Provider Emergency Medicine; PCP Internal Medicine
DX: R07.9 Chest pain, unspecified (principal); F02.80 Dementia in other diseases classified elsewhere, unspecified severity, without behavioral disturbance, psychotic disturbance, mood disturbance, and anxiety; G30.9 Alzheimer's disease, unspecified; F41.9 Anxiety disorder, unspecified; I25.10 Atherosclerotic heart disease of native coronary artery without angina pectoris; I13.0 Hypertensive heart and chronic kidney disease with heart failure and stage 1 through stage 4 chronic kidney disease, or unspecified chronic kidney disease; I50.32 Chronic diastolic (congestive) heart failure; N18.32 Chronic kidney disease, stage 3b; D63.1 Anemia in chronic kidney disease; F32.A Depression, unspecified; E11.22 Type 2 diabetes mellitus with diabetic chronic kidney disease; K21.9 Gastro-esophageal reflux disease without esophagitis; E04.1 Nontoxic single thyroid nodule; E03.9 Hypothyroidism, unspecified; E66.9 Obesity, unspecified; E78.5 Hyperlipidemia, unspecified; M19.90 Unspecified osteoarthritis, unspecified site; Z79.4 Long term (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 of insulin; Z79.01 Long term (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 of anticoagulants; Z79.899 Other long term (current) drug therapy; Z87.891 Personal history of nicotine dependence
CPT/HCPCS: 71045; 80048; 84484; 85025; 93005; 99285; A4216

== ENCOUNTER → 2021-08-20 05:00 | Outpatient (REF) | payer MEDICARE, MEDICAID, SELFPAY ==
[2021-08-20 07:44] LABS: Magnesium 2.3 mg/dL (1.6-2.6); Thyroid Stim Hormone (TSH) 1.97 uIU/mL (0.358-3.74)
[2021-08-20 09:00] LABS: Vitamin B12 403 pg/mL (211-911)
[2021-08-20 09:53] LABS: Hemoglobin A1c 6.4 % (3.8-5.6)
[2021-08-24 20:41] LABS: KEPPRA (LEVETIRACETAM) 26.6 ug/mL (10.0-40.0)
== END ==
LOC: OLS.SWAL 05:00
PROVIDERS: PCP Internal Medicine; Visit Provider Internal Medicine
DX: I50.9 Heart failure, unspecified (principal); E11.42 Type 2 diabetes mellitus with diabetic polyneuropathy
CPT/HCPCS: 36415; 80177; 82607; 83036; 83735; 84443

== ENCOUNTER → 2021-08-30 05:00 | Outpatient (REF) | payer MEDICARE, MEDICAID, SELFPAY ==
[2021-08-30 08:45] LABS: Anion Gap 2 (5-15); BUN 25 mg/dL (7-18); BUN/Creat Ratio 21.9 RATIO (10-20); Calcium,Total 8.8 mg/dL (8.5-10.1); Chloride 101 mmol/L (98-107); Creatinine, Serum 1.14 mg/dL (0.55-1.02); EST Glomerular Filtration Rate 49 mL/min (>60); Est Glom Filt Rate - Afr Amer 59 mL/min (>60); Glucose 36 mg/dL (74-106); Magnesium 2.3 mg/dL (1.6-2.6); Potassium 3.4 mmol/L (3.5-5.1); Sodium Level 142 mmol/L (136-145)
== END ==
LOC: OLS.SWAL 05:00
PROVIDERS: PCP Internal Medicine; Visit Provider Internal Medicine
DX: I10 Essential (primary) hypertension (principal)
CPT/HCPCS: 36415; 80048; 83735

== ENCOUNTER 2021-09-05 14:09 | Inpatient (IN) | payer MEDICARE, MEDICAID, SELFPAY ==
[2021-09-05] VITALS (10 sets, daily range): BP systolic 126–157; BP diastolic 66–72; PULSE 59–60; RESP 14–24; TEMP 36.6–36.9; O2SAT 95–99; BMI 39.5; BMI 38.6
--- NOTE | 2021-09-05 14:19 | EKG12_ITS ---
Test Reason : ILLNESS Blood Pressure : / mmHG Vent. Rate : 060 BPM Atrial Rate : 068 BPM P-R Int : 000 ms QRS Dur : 168 ms QT Int : 512 ms P-R-T Axes : 000 -80 075 degrees QTc Int : 512 ms Ventricular-paced rhythm Abnormal ECG Confirmed by LORRAINE TURCIOS MD ([id number]), clinical editor WILLIS HAWKINS ([id number]) on 09/07/2021 11:41:37 AM Referred By: SUNDAY Confirmed By:LORRAINE TURCIOS MD
--- NOTE | 2021-09-05 14:20 | EX.ED.DYSGE1 ---
HPI History of Present Illness Chief Complaint: Cough Detail of Chief Complaint: Cough and generalized weakness Informant: patient Narrative Narrative: Patient presents to the emergency department from [facility]. Patient has had a cough but is unclear how long. Patient normally wears 2 L of O2 at all times and per EMS she was 88% on their arrival. On 3 L however she bumped up into the 90s. Cough mostly nonproductive. Patient also describes some pain in her left chest and shoulder especially with cough and deep breath. Patient is believed to have had her Covid vaccine. She denies Covid exposures. Patient on Xarelto. Prior similar symptoms: Yes PFSH PFSH Medical History Alzheimer disease Anemia Anemia due to chronic illness Angina pectoris Anxiety Aortic stenosis Atherosclerosis of coronary artery without angina pectoris Bone cancer Bundle branch block CAD (coronary artery disease) Cholelithiasis Chronic back pain Chronic diastolic (congestive) heart failure Chronic kidney disease, stage 3b Chronic pain CKD (chronic kidney disease) stage 3, GFR 30-59 ml/min Congestive heart failure Congestive heart failure (CHF) Debility Dementia Depression Diabetes Dysphagia Essential (primary) hypertension GERD (gastroesophageal reflux disease) Goiter History of urinary incontinence HTN (hypertension) Hyperlipidemia Hypothyroidism Kidney disease Longstanding persistent atrial fibrillation Metabolic encephalopathy Moderate aortic stenosis Morbid obesity Noncompliance 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 Nonrheumatic aortic (valve) stenosis Osteoarthritis Osteoarthritis PVD (peripheral vascular disease) Right bundle branch block (RBBB) Seizures Sick sinus syndrome Sleep apnea Stroke Type II diabetes mellitus Home Medications metoprolol succinate 50 mg PO DAILY 10/11/17 [History Last Taken 05/18/20] prasugrel 10 mg PO DAILY 06/04/18 [History Last Taken 05/18/20] duloxetine 30 mg PO DAILY 11/18/18 [History Last Taken 05/18/20] levetiracetam 500 mg tablet 500 mg PO BID tab 04/19/20 [History Last Taken 05/18/20] omeprazole 20 mg PO DAILY 05/18/20 [History Last Taken 05/18/20] acetaminophen 650 mg PO Q6H PRN PRN tab 05/22/20 [Rx Last Taken Unknown] fluticasone propionate 2 spray NARES BID 12/13/20 [History Last Taken Unknown] nitroglycerin 0.4 mg SUBLINGUAL PRN PRN 12/13/20 [History Last Taken Unknown] atorvastatin 20 mg tablet 20 mg PO QHS 01/05/21 [History Last Taken Unknown] bisacodyl 10 mg rectal suppository 10 mg RC Q8 PRN 01/05/21 [History Last Taken Unknown] insulin lispro 100 unit/mL subcutaneous pen 15 unit SC TIDCM ml 01/05/21 [History Last Taken Unknown] latanoprost 0.005 % eye drops 1 drp EACH EYE QHS 01/05/21 [History Last Taken Unknown] sennosides 8.6 mg capsule 8.6 mg PO BID 01/05/21 [History Last Taken Unknown] bisacodyl [Dulcolax (bisacodyl)] 5 mg PO BID PRN 04/02/21 [History Last Taken Unknown] magnesium hydroxide [Milk of Magnesia] 400 mg PO DAILY PRN 04/02/21 [History Last Taken Unknown] polyethylene glycol 3350 [Miralax] 17 g PO DAILY PRN 04/02/21 [History Last Taken Unknown] Xarelto 15 mg PO DINNER #1 tab 04/09/21 [Rx Last Taken Unknown] cetirizine [Zyrtec] 10 mg PO DAILY 05/26/21 [History Last Taken Unknown] donepezil [Aricept] 10 mg PO DAILY 05/26/21 [History Last Taken Unknown] levothyroxine [Synthroid] 50 mcg PO DAILY 05/26/21 [History Last Taken Unknown] memantine 10 mg PO BID 05/26/21 [History Last Taken Unknown] potassium chloride 20 meq PO MOWEFR 05/26/21 [History Last Taken Unknown] trazodone 50 mg PO QHS 05/26/21 [History Last Taken Unknown] Lantus Solostar U-100 Insulin 25 unit SUBCUT BID #1 ml 06/02/21 [Rx Last Taken Unknown] amoxicillin 500 mg PO Q8 #15 cap 06/02/21 [Rx Last Taken Unknown] isosorbide mononitrate 60 mg PO DAILY #30 tab 06/02/21 [Rx Last Taken Unknown] potassium chloride 20 meq PO DAILY #30 cap 06/02/21 [Rx Last Taken Unknown] furosemide 40 mg PO BID #1 tab 06/03/21 [Rx Last Taken Unknown] insulin glargine [Lantus Solostar U-100 Insulin] 25 unit SUBCUT BID #3 ml 06/03/21 [Rx Last Taken Unknown] Allergy/AdvReac Type Severity Reaction Status Date / Time atorvastatin calcium Allergy dont Verified 05/26/21 17:05 [From Lipitor] remember codeine Allergy Rash Verified 05/26/21 17:05 iodine Allergy Rash Verified 05/26/21 17:05 Latex, Natural Rubber Allergy Rash Verified 05/26/21 17:05 lovastatin Allergy Rash Verified 05/26/21 17:05 rosuvastatin calcium Allergy rash\ Verified 05/26/21 17:05 [From Crestor] tositumomab Allergy PT UNSURE Verified 05/26/21 17:05 OF REACTION naproxen [From Naprosyn] AdvReac Upset Verified 05/26/21 17:05 Stomach pregabalin [From Lyrica] AdvReac Upset Verified 05/26/21 17:05 Stomach Sulfa (Sulfonamide AdvReac Upset Verified 05/26/21 17:05 Antibiotics) Stomach Family History Other Cancer Surgical History History of coronary artery stent placement (01/25/11) History of hysterectomy History of left heart catheterization (04/04/21) History of loop recorder (2013) History of permanent cardiac pacemaker placement (03/05/17) History of thyroidectomy Social History household members: none housing: care home Smoking Status: Former smoker details: Not presently substance use type: does not use ROS ROS ED Constitutional Constitutional ED: Reports systems reviewed and no addt'l complaints, except as documented; Denies body ache(s), change in weight or chills Eyes Eyes: Denies acute decrease in peripheral vision, change in vision, double vision or loss of vision ENT ENT ED: Reports none; Denies ear pain, lip swelling, loss taste/smell, neck pain, otalgia or sore throat Cardiovascular Cardiovascular: Reports none; Denies abdominal pain, chest pain with activity, leg edema, lightheadedness, palpitations, rapid heart rate or syncope Respiratory/Chest Respiratory/Chest: Reports none, cough and dyspnea; Denies change in mental status, dry cough, hemoptysis, shortness of breath at rest or shortness of breath with exertion Gastrointestinal Gastrointestinal: Reports none; Denies abdominal pain, change in stool character, diarrhea, hematemesis, hematochezia, melena, rectal bleeding or vomiting Genitourinary Genitourinary ED: Reports none; Denies abdominal discomfort, anuria, dysuria, genital pain or polyuria Musculoskeletal Musculoskeletal: Reports none; Denies arthralgias, back pain, difficulty walking, extremity pain, muscle weakness or myalgias Integumentary Reports none; Denies abscess or rash Neurologic Neurologic: Reports none and weakness; Denies abnormal gait, confusion, focal weakness, frequent falls, headache(s), loss of vision, numbness, paresthesias, radicular pain or vertigo Psychiatric Psychiatric: Reports systems reviewed and no addt'l complaints, except as documented and none; Denies behavioral changes, confusion, difficulty concentrating, hallucinations, suicidal ideation, tactile hallucinations or visual hallucinations Endocrine Endocrinology: Denies none, cold intolerance, excessive sweating, fatigue or heat intolerance Hematologic/Lymphatic Hematologic/Lymphatic: Reports none; Denies anemia, easy bleeding or easy bruising Allergic/Immunologic Allergic/Immunologic ED: Denies as per HPI, none, lip swelling, mouth swelling, throat swelling, tongue swelling or hives EXAM Physical Exam Const Vital Signs: 09/05/21 14:12 09/05/21 14:17 09/05/21 14:25 Temperature 97.8 F 97.8 F Temperature Source Oral Oral Pulse Rate 60 60 Respiratory Rate 16 16 Respiratory Effort Short of Breath Respiratory Depth Normal Respiratory Pattern Normal Blood Pressure 126/68 H 126/68 H Blood Pressure Mean 87 87 Pulse Ox 99 99 Oxygen Delivery Method Nasal Cannula Nasal Cannula Nasal Cannula Oxygen Flow Rate (L/min) 3 3 3 09/05/21 14:47 Temperature Temperature Source Pulse Rate 60 Respiratory Rate 24 H Respiratory Effort Respiratory Depth Respiratory Pattern Tachypnea Blood Pressure Blood Pressure Mean Pulse Ox Oxygen Delivery Method Oxygen Flow Rate (L/min) Positive well nourished and well developed General Appearance ED: well developed and NAD HEENT Reports TM's clear and moist mucous membranes normocephalic and atraumatic; Negative for trauma or tenderness Tympanic Membrane ED: Yes TM's clear Eyes PERRL and EOMs intact bilaterally General Eye ED: Negative for pale conjunctiva or scleral icterus Neck no lymphadenopathy, supple and no JVD General: Negative for tenderness Chest Wall inspection of chest normal and palpation of chest normal Chest: Negative for tenderness Resp normal respiratory effort and clear to auscultation bilaterally Resp Narrative: Mild conversational dyspnea Effort and Inspection: Negative for respiratory distress or pain with movement Auscultation: rhonchi and wheezes; Negative for diminished lung sounds Cardio regular rate, regular rhythm, S1 normal heart sound, S2 normal heart sound and no murmurs Peripheral Pulses: pulses 2+ throughout GI normal to inspection, nondistended, normoactive bowel sounds, soft to palpation, non-tender, non-distended and no masses Back/Spine no CVA tenderness and no thoracic nor lumbar tenderness Extremity normal to inspection Extremity Narrative: +3 edema both lower extremities to below the knee. Patient has a weeping wound to the left lower extremity. General Extremety ED: Yes edema General Extremity: edema Neuro oriented x3, CN's II-XII intact bilaterally, no sensory deficits noted and gait normal Sensorium / Orientation: awake, alert, oriented to person, oriented to place and oriented to time Motor Exam: strength 5/5 throughout and strength abnormal Psych mental status grossly normal Skin no rashes or lesions noted and no wounds MDM MDM MDM Narrative Medical decision making narrative: IV line established on arrival. Patient was placed on 3 L nasal cannula O2. Patient was ordered Lasix 80 mg IV. Douglas catheter was ordered for management of I's and O's. Case will be discussed with hospitalist evaluate patient for admission Lab Data Attestation: I reviewed the patient's lab results. Labs: Laboratory Results - last 24 hr 09/05/21 09/05/21 09/05/21 14:40 14:40 14:40 WBC 9.9 RBC 4.27 Hgb 9.5 L Hct 33.0 L MCV 77.3 L MCH 22.2 L MCHC 28.8 L RDW Std Deviation 47.7 H RDW Coeff of Candace 17.2 H Plt Count 220 MPV 11.6 Immature Gran % (Auto) 0.300 Neut % (Auto) 81.0 H Lymph % (Auto) 9.8 L [place] % (Auto) 6.8 Eos % (Auto) 1.6 Baso % (Auto) 0.5 Absolute Neuts (auto) 8.0 H Absolute Lymphs (auto) 0.97 Nucleated RBC % 0 Sodium 146 H Potassium 3.3 L Chloride 108 H Carbon Dioxide 33.0 H Anion Gap 5 BUN 23 H Creatinine 0.96 Estim Creat Clear Calc 41.71 Est GFR (MDRD) Af Amer 72 Est GFR (MDRD) Non-Af 60 BUN/Creatinine Ratio 24.0 H Glucose 165 H Calcium 7.5 L Troponin I High Sens 34 B-Natriuretic Peptide 321.3 H Radiography Diagnostic Testing: Clinical Impression(s) from Imaging Studies Chest X-Ray 09/05/21 14:55 IMPRESSION: 1. Mildly worse CHF with lower lobe edema and slightly increased right and new small left pleural effusion. Electronically Signed: Naseem Swanson MD ([place]) at 15:02 EST , Service support , 1 view chest x-ray obtained interpreted by myself as bilateral small effusions with central pulmonary congestion. Radiology felt there was worsening CHF with lower lobe edema and slight increased right new small left pleural effusion. EKG Initial EKG: Attestation: I personally reviewed and interpreted this EKG as follows: Comments: Ventricularly paced rhythm with a rate of 60 bpm Discharge Plan Triage Chief Complaint: Cough ED Provider: Angus Palomino Dx/Rx/DC Orders Clinical Impression: Acute dyspnea, CHF (congestive heart failure), Hypoxemia Prescriptions: No Action levetiracetam 500 mg tablet 500 mg PO BID RF: 0 atorvastatin 20 mg tablet 20 mg PO QHS RF: 0 bisacodyl 10 mg suppository 10 mg RC Q8 PRN (Reason: Constipation) RF: 0 latanoprost 0.005 % drops 1 drp EACH EYE QHS RF: 0 senna 8.6 mg capsule 8.6 mg PO BID RF: 0 metoprolol succinate 50 MG tablet extended release 24 hr 50 mg PO DAILY RF: 0 prasugrel 10 MG tablet 10 mg PO DAILY RF: 0 duloxetine 30 MG capsule,delayed release(DR/EC) 30 mg PO DAILY RF: 0 omeprazole 20 MG capsule 20 mg PO DAILY RF: 0 acetaminophen 325 MG tablet 650 mg PO Q6H PRN PRN (Reason: Pain Score 1-10/Temp > 100.7 F) RF: 0 nitroglycerin 0.4 MG tablet, sublingual 0.4 mg SUBLINGUAL PRN PRN (Reason: chest pain) RF: 0 fluticasone propionate 1 SPRAY spray,suspension 2 spray NARES BID RF: 0 insulin lispro 100 unit/mL insulin pen 15 unit SC TIDCM RF: 0 polyethylene glycol 3350 [Miralax] 17 gram Powder In Packet 17 g PO DAILY PRN (Reason: Constipation) RF: 0 magnesium hydroxide [Milk of Magnesia] 400 mg/5 mL Suspension 400 mg PO DAILY PRN (Reason: Constipation) RF: 0 bisacodyl [Dulcolax (bisacodyl)] 5 mg Tablet,Delayed Release (Dr/Ec) 5 mg PO BID PRN (Reason: Constipation) RF: 0 Xarelto 15 mg Tablet 15 mg PO DINNER Qty: 1 RF: 0 trazodone 50 mg Tablet 50 mg PO QHS RF: 0 cetirizine [Zyrtec] 10 mg Tablet 10 mg PO DAILY RF: 0 donepezil [Aricept] 10 mg Tablet 10 mg PO DAILY RF: 0 levothyroxine [Synthroid] 50 mcg Tablet 50 mcg PO DAILY RF: 0 memantine 10 mg Tablet 10 mg PO BID RF: 0 potassium chloride 20 mEq Tablet Extended Release 20 meq PO MOWEFR RF: 0 isosorbide mononitrate 60 mg Tablet Extended Release 24 Hr 60 mg PO DAILY Qty: 30 RF: 0 amoxicillin 500 mg Capsule 500 mg PO Q8 Qty: 15 RF: 0 potassium chloride 10 mEq capsule, extended release 20 meq PO DAILY Qty: 30 RF: 0 Lantus Solostar U-100 Insulin 100 unit/mL (3 mL) Insulin Pen 25 unit subcut BID Qty: 1 RF: 0 Lantus Solostar U-100 Insulin 100 unit/mL (3 mL) Insulin Pen 25 unit subcut BID Qty: 3 RF: 0 furosemide 40 mg tablet 40 mg PO BID Qty: 1 RF: 0 Primary Care Provider: Emerita Gottlieb Referrals: Emerita Gottlieb MD [Primary Care Provider] - Disposition Disposition: Acute Care Hospital [facility]
[2021-09-05] MEDS: Ipratropium/Albuterol Sulfate 3 ML AMPUL.NEB INHALATION (14:47)
[2021-09-05 14:54] LABS: Absolute Lymphocyte Count 0.97 X10^3/uL (0.83-4.51); Basophil# 0.05 X10^3/uL; Basophil% 0.5 % (0-1); Eosinophil# 0.16 X10^3/uL; Eosinophils% 1.6 % (0-5); Hemoglobin 9.5 g/dL (12.0-15.0); Lymphocyte # 0.97 X10^3/ul (0.83-4.51); Lymphocyte % 9.8 % (19-41); Mean Corp Hgb Conc 28.8 g/dL (32-36); Mean Corpuscular Hgb 22.2 pg (27.0-32.0); Mean Corpuscular Volume 77.3 fL (81-99); Mean Platelet Vol. 11.6 fl (6.2-12.0); Monocyte# 0.67 X10^3/uL; Monocyte% 6.8 % (0-10); NRBC Flagged by Analyzer 0 % (0-5); Neutrophil # 8.02 X10^3/uL (2.7-7.7); Platelet Count 220 K/mm3 (150-450); RBC Distribution Width CV 17.2 % (11.6-14.6); RBC Distribution Width SD 47.7 fl (35.1-43.9); Red Blood Count 4.27 M/mm3 (4.2-5.4); White Blood Count 9.9 K/mm3 (4.4-11.0)
--- NOTE | 2021-09-05 14:55 | RAD_ITS ---
STUDY: X-RAY CHEST REASON FOR EXAM: Female, 76 years old. dyspnea TECHNIQUE: AP COMPARISON: 08/15/2021 FINDINGS: Cardiac conduction device is stable. Central pulmonary vascular congestion and interstitial opacities overall similar. Atelectasis or scarring in the lung bases. Small right pleural effusion is slightly increased with new mild blunting of the left costophrenic angle. Increased vascular congestion and bibasilar reticular opacities. Surgical clips overlie the base of the neck on the left side. A Reveal insertable nuclear monitoring technician projects over the left chest. There is mild cardiac enlargement. Normal mediastinum and susan. There is prominence of the pulmonary hilar arteries and peripheral pulmonary arteries, consistent with congestive heart failure (CHF). There is atherosclerotic calcification of the aortic arch with tortuosity. No acute bony process. There is no demonstrated abnormality of the visualized soft tissue structures of the upper abdomen. RAD/Chest 1 View (Portable) IMPRESSION: 1. Mildly worse CHF with lower lobe edema and slightly increased right and new small left pleural effusion. Electronically Signed: Naseem Swanson MD ([place]) at 15:02 EST , Service support ,
[2021-09-05 15:12] LABS: Anion Gap 5 (5-15); BNP,B-Type NATRIURETIC PEPTIDE 321.3 pg/mL (0-100); BUN 23 mg/dL (7-18); Calcium,Total 7.5 mg/dL (8.5-10.1); Chloride 108 mmol/L (98-107); Creatinine, Serum 0.96 mg/dL (0.55-1.02); EST Glomerular Filtration Rate 60 mL/min (>60); Est Glom Filt Rate - Afr Amer 72 mL/min (>60); Estimated Creatinine Clearance 41.71 ml/min; Glucose 165 mg/dL (74-106); Potassium 3.3 mmol/L (3.5-5.1); Sodium Level 146 mmol/L (136-145); Troponin-I HS 34 pg/mL (3.0-54.0)
[2021-09-05] MEDS: 0.9% Normal Saline 1,000 ML 150 ML IV (15:12)
--- NOTE | 2021-09-05 15:29 | HP.PCM.HOS_ITS ---
HPI - General General Date of Admission: 09/05/21 Date of Service: 09/05/21 Chief Complaint: Worsening dyspnea, hypoxia on her chronic home oxygenation. HPI Narrative The patient is a 73 y/o F w/ PMHx: Chronic normocytic anemia, CAD s/p PCI SITA proximal LAD 2004 and SITA Linferolateral marginal branch 2010, Hx Sick Sinus Syndrome s/p pacemaker placement, GERD, HTN, HLD, Chronic Diastolic CHF, PAF, Anxiety and Depression, Seizure disorder, Diabetes mellitus type II, ERIC, CKD stage III, Chronic back pain, Hypothyroidism, Dementia unclear type with unclear behavioral disturbance history who presents to the [facility] ED on 09/05/21 with histo ry of increased fatigue, malaise, dyspnea, worsening with exertion with dry cough and worsening oxygenation of 88% on her baseline 2L NC with inability to function in her assisted living with likely need for SNF. Patient notes worsening lower extremity swelling as well as orthopnea. Patient is supposed to use CPAP but is noncompliant work-up in the ED included T 97.8, heart rate 60, BP 126/68, respiratory rate 16, 99% on 3 L nasal cannula eventually de-escalate it to 2 L nasal cannula noted to be 96%, CBC with WBC 9.9, hemoglobin 9.5, platelet 220 with left shift, BMP with sodium 146, potassium 3.3, chloride 108, carbon oxide 33, BUN/creatinine 23/0.96, glucose 165, BNP 321.3, troponin high- sensitivity initial 34, lactic acid pending, rapid Covid antigen negative, chest x-ray with mildly worse CHF with lower lobe edema and slight increased right and new small left pleural effusions, blood culture pending per ED additionally. In the ED patient ministered IV Lasix as well as DuoNeb therapy. [facility] Medical History Alzheimer disease Anemia Anemia due to chronic illness Angina pectoris Anxiety Aortic stenosis Atherosclerosis of coronary artery without angina pectoris Bone cancer Bundle branch block CAD (coronary artery disease) Cholelithiasis Chronic back pain Chronic diastolic (congestive) heart failure Chronic kidney disease, stage 3b Chronic pain CKD (chronic kidney disease) stage 3, GFR 30-59 ml/min Congestive heart failure Congestive heart failure (CHF) Debility Dementia Depression Diabetes Dysphagia Essential (primary) hypertension GERD (gastroesophageal reflux disease) Goiter History of urinary incontinence HTN (hypertension) Hyperlipidemia Hypothyroidism Kidney disease Longstanding persistent atrial fibrillation Metabolic encephalopathy Moderate aortic stenosis Morbid obesity Noncompliance 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 Nonrheumatic aortic (valve) stenosis Osteoarthritis Osteoarthritis PVD (peripheral vascular disease) Right bundle branch block (RBBB) Seizures Sick sinus syndrome Sleep apnea Stroke Type II diabetes mellitus Home Medications prasugrel 10 mg PO DAILY 06/04/18 [History Last Taken 05/18/20] duloxetine 30 mg PO DAILY 11/18/18 [History Last Taken 05/18/20] levetiracetam 500 mg tablet 500 mg PO BID tab 04/19/20 [History Last Taken 05/18/20] omeprazole 20 mg PO DAILY 05/18/20 [History Last Taken 05/18/20] acetaminophen 650 mg PO Q6H PRN PRN tab 05/22/20 [Rx Last Taken Unknown] fluticasone propionate 2 spray NARES BID 12/13/20 [History Last Taken Unknown] nitroglycerin 0.4 mg SUBLINGUAL PRN PRN 12/13/20 [History Last Taken Unknown] latanoprost 0.005 % eye drops 1 drp EACH EYE QHS 01/05/21 [History Last Taken Unknown] sennosides 8.6 mg capsule 8.6 mg PO BID 01/05/21 [History Last Taken Unknown] cetirizine [Zyrtec] 10 mg PO DAILY 05/26/21 [History Last Taken Unknown] donepezil [Aricept] 10 mg PO DAILY 05/26/21 [History Last Taken Unknown] levothyroxine [Synthroid] 50 mcg PO DAILY 05/26/21 [History Last Taken Unknown] memantine 10 mg PO BID 05/26/21 [History Last Taken Unknown] potassium chloride 20 meq PO MOWEFR 05/26/21 [History Last Taken Unknown] trazodone 50 mg PO QHS 05/26/21 [History Last Taken Unknown] isosorbide mononitrate 60 mg PO DAILY #30 tab 06/02/21 [Rx Last Taken Unknown] furosemide 40 mg PO BID #1 tab 06/03/21 [Rx Last Taken Unknown] Lantus Solostar U-100 Insulin 15 unit SUBCUT QHS 09/05/21 [History Last Taken 09/04/21] Xarelto 15 mg PO DINNER 09/05/21 [History Last Taken 09/04/21] ascorbic acid (vitamin C) 500 mg PO DAILY 09/05/21 [History Last Taken 09/04/21] furosemide [Lasix] 20 mg PO BID 09/05/21 [History Last Taken 09/05/21] hydrocodone-acetaminophen [[place]] 1 tab PO Q8H PRN 09/05/21 [History Last Taken 08/29/21 10:00] hydroxyzine HCl 10 mg PO QHS 09/05/21 [History Last Taken 09/04/21] insulin glargine [Lantus Solostar U-100 Insulin] 20 unit SUBCUT DAILY 09/05/21 [History Last Taken 09/05/21] Allergy/AdvReac Type Severity Reaction Status Date / Time atorvastatin calcium Allergy dont Verified 05/26/21 17:05 [From Lipitor] remember codeine Allergy Rash Verified 05/26/21 17:05 iodine Allergy Rash Verified 05/26/21 17:05 Latex, Natural Rubber Allergy Rash Verified 05/26/21 17:05 lovastatin Allergy Rash Verified 05/26/21 17:05 rosuvastatin calcium Allergy rash\ Verified 05/26/21 17:05 [From Crestor] tositumomab Allergy PT UNSURE Verified 05/26/21 17:05 OF REACTION naproxen [From Naprosyn] AdvReac Upset Verified 05/26/21 17:05 Stomach pregabalin [From Lyrica] AdvReac Upset Verified 05/26/21 17:05 Stomach Sulfa (Sulfonamide AdvReac Upset Verified 05/26/21 17:05 Antibiotics) Stomach Family History (Updated 09/05/21 @ 16:[address] Ana Cristina Stevens MD) Mother Cancer Father Cirrhosis of liver Colon cancer Sister Cancer Ovarian CA. Surgical History History of coronary artery stent placement (01/25/11) History of hysterectomy History of left heart catheterization (04/04/21) History of loop recorder (2013) History of permanent cardiac pacemaker placement (03/05/17) History of thyroidectomy Social History (Updated 09/05/21 @ 16:[address] Ana Cristina Stevens MD) household members: none housing: assisted living facility Smoking Status: Former smoker alcohol intake: never details: Not presently substance use type: does not use ROS ROS Narrative Admission Review of Systems: CONSTITUTIONAL: No weight loss, fever, chills, + weakness or fatigue. HEENT: Eyes: No visual loss, blurred vision, double vision or yellow sclerae. Ears, Nose, Throat: No hearing loss, sneezing, congestion, runny nose or sore throat. SKIN: + Chronic chest wounds with patient picks at. CARDIOVASCULAR: + Edema, orthopnea. No chest pain, chest pressure or chest discomfort, palpitations, syncopal events. RESPIRATORY: + shortness of breath, dry cough, No marked sputum, wheezing, hemoptysis. GASTROINTESTINAL: No anorexia, nausea, vomiting or diarrhea, abdominal pain, melena, BRBPR. GENITOURINARY: No dysuria, frequency, urgency or retention. NEUROLOGICAL: No headache, dizziness, syncope, paralysis, ataxia, numbness or tingling in the extremities, focal weakness, change in bowel or bladder control, seizure. MUSCULOSKELETAL: + muscle, back pain, joint pain or stiffness. HEMATOLOGIC: + anemia, bleeding or bruising. LYMPHATICS: No enlarged nodes. No history of splenectomy. PSYCHIATRIC: + history of depression or anxiety. ENDOCRINOLOGIC: No reports of sweating, cold or heat intolerance. No polyuria or polydipsia. ALLERGIES: + history of asthma, hives, eczema or rhinitis. Vital Signs Vital Signs Vital Signs: 09/05/21 14:12 09/05/21 14:17 09/05/21 14:25 Temperature 97.8 F 97.8 F Temperature Source Oral Oral Pulse Rate 60 60 Respiratory Rate 16 16 Respiratory Effort Short of Breath Respiratory Depth Normal Respiratory Pattern Normal Blood Pressure 126/68 H 126/68 H Blood Pressure Mean 87 87 Pulse Ox 99 99 Oxygen Delivery Method Nasal Cannula Nasal Cannula Nasal Cannula Oxygen Flow Rate (L/min) 3 3 3 09/05/21 14:47 09/05/21 15:17 Temperature 98.2 F Temperature Source Oral Pulse Rate 60 60 Respiratory Rate 24 H 23 H Respiratory Effort Respiratory Depth Respiratory Pattern Tachypnea Blood Pressure 157/72 H Blood Pressure Mean 100 Pulse Ox 96 Oxygen Delivery Method Nasal Cannula Oxygen Flow Rate (L/min) 2 Weight Weight: 230 lb 6.129 oz Body Mass Index (BMI) 39.5 Physical Exam Narrative Physical Examination: General: awake, alert, oriented to self, place, some recent events, does have underlying dementia, remains cooperative, seated upright in ED bed, no acute distress. Skin: normal color, turgor, no icterus, cyanosis except occasional staged ecchymoses and bilateral lower extremity stasis disease evident as well as upper bilateral chest chronic wounds. HEENT: AT/NC, EOMI, PERRLA, mildly dry MM, no carotid bruits or + JVD noted however difficult exam given thickened neck. Lungs: Diminished breath sounds, greater bases, appropriate effort, mild rales, no ronchi or wheezing. Heart: Irregular, rate controlled; no gallop, rub audible. Abdomen: soft, morbidly obese, NTTP, ND although difficult exam given habitus, distant normal BS, no obvious HSM but again difficult exam given suprapubic disc omfort and habitus Extremities: no cyanosis or clubbing, bilateral lower extremity pedal to distal claros edema, 3+ pitting, bilateral lower extremity chronic stasis changes as noted. Neurological: Awake, alert, oriented as noted, cognitive function at baseline with underlying dementia, pupils equally reactive to light and accommodation, cranial nerves II-XII grossly normal, moving all 4 extremities, no focal deficits, strength moderately to severely globally decreased Psychiatric: Affect appears fatigued otherwise normal, no acute evidence of depressive or anxiety feelings. Results Lab / Micro Data Result Diagrams: 09/05/21 14:40 09/05/21 14:40 Labs: Laboratory Results - last 24 hr 09/05/21 14:40: WBC 9.9, RBC 4.27, Hgb 9.5 L, Hct 33.0 L, MCV 77.3 L, MCH 22.2 L , MCHC 28.8 L, RDW Std Deviation 47.7 H, RDW Coeff of Candace 17.2 H, Plt Count 220, MPV 11.6, Immature Gran % (Auto) 0.300, Neut % (Auto) 81.0 H, Lymph % (Auto) 9.8 L, [place] % (Auto) 6.8, Eos % (Auto) 1.6, Baso % (Auto) 0.5, Absolute Neuts (auto) 8.0 H, Absolute Lymphs (auto) 0.97, Nucleated RBC % 0 09/05/21 14:40: Sodium 146 H, Potassium 3.3 L, Chloride 108 H, Carbon Dioxide 33.0 H, Anion Gap 5, BUN 23 H, Creatinine 0.96, Estim Creat Clear Calc 41.71, Est GFR (MDRD) Af Amer 72, Est GFR (MDRD) Non-Af 60, BUN/Creatinine Ratio 24.0 H , Glucose 165 H, Calcium 7.5 L, Troponin I High Sens 34 09/05/21 14:40: B-Natriuretic Peptide 321.3 H Micro: Microbiology 09/05/21 14:46 Nasal Secretion SARS-CoV-2 Antigen (Rapid) - Final Radiology Impression Chest X-Ray 09/05/21 14:55 IMPRESSION: 1. Mildly worse CHF with lower lobe edema and slightly increased right and new small left pleural effusion. Electronically Signed: Naseem Swanson MD ([place]) at 15:02 EST , Service support , Assessment & Plan Assessment/Plan (1) CHF (congestive heart failure): QUALIFIERS: Heart failure type: diastolic Heart failure chronicity: acute Qualified Code(s): I50.31 - Acute diastolic (congestive) heart failure PLAN: The patient is a 73 y/o F w/ PMHx: Chronic normocytic anemia, CAD s/p PCI SITA proximal LAD 2004 and SITA Linferolateral marginal branch 2010, Hx Sick Sinus Syndrome s/p pacemaker placement, GERD, HTN, HLD, Chronic Diastolic CHF, PAF, Anxiety and Depression, Seizure disorder, Diabetes mellitus type II, ERIC, CKD stage III, Chronic back pain, Hypothyroidism, Dementia unclear type with unclear behavioral disturbance history who presents to the [facility] ED on 09/05/21 with history of increased fatigue, malaise, dyspnea, worsening with exertion with dry cough and worsening oxygenation of 88% on her baseline 2L NC with inability to function in her assisted living with likely need for SNF. 1. Acute on Chronic Diastolic CHF w/ Chronic Hypoxic Respiratory Failure w/ mildly increased hypoxia: Patient administered IV lasix in the ED, will admit to PCU, maintain on cardiac telemetry, obtain cardiac enzyme series, obtain serial EKGs, continue IV lasix diuresis, monitor I/Os, maintain on intake restriction, continue medical therapy, obtain TSH and magnesium level. Most recent ECHO noted 05/28/2021 with normal LV size, hyperdynamic LV systolic function, EF 65%, mild concentric LVH, ICD/pacer leads identified in the right ventricle. Will place snug dwain wraps with BL LE elevation. PT/OT/CM consultations for discharge planning to likely SNF. 2. Hypokalemia: Admission K+ 3.3, magnesium level requested, supplementation given, repeat level in AM. 3. Chronic chest wounds, non-infected appearing: CBC not marked appearing, no obvious infection, will consult Wound RN, continue dressings especially given tendency to pick at the wound. 4. CAD with Chest pain complaint: Status post PCI proximal LAD 2004 as well as left anterior lateral marginal branch in 2010, continue aspirin, prasugrel, statin, metoprolol, not on DWAIN inhibitor or ARB. 5. PAF: Continue patient home metoprolol, continue aspirin/prasugrel as well as home xarelto regimen. 6. Hypertension: Continue home metoprolol regimen, isosorbide, IV Lasix as noted above, as needed IV hydralazine 7. Hyperlipidemia: Continue home statin therapy, AM FLP. 8. Chronic normocytic anemia: Admission hemoglobin 9.5, previous baseline 10- 11, stable, trend. 9. Diabetes mellitus type II: Hold oral home regimen, continue home insulin regimen, ADA diet, accu checks w/ ISS. 10. Seizure disorder, epilepsy: Continue home Keppra regimen. 11. History of sick sinus syndrome: Status post pacemaker placement, will plan to interrogate. 12. Hypothyroidism: History of goiter status post thyroidectomy, continue home Synthroid regimen. 13. Dementia, unclear type with unclear behavioral disturbance history: Patient does have notable dementia baseline as well as noncompliance, complicates presentation, will continue home aricept and memantine home regimen. 14. Chronic Kidney Disease Stage III: Admission BUN/Cr 23/0.96, baseline renal function 1.1-1.3, repeat CMP in AM. 15. Anxiety and depression: Continue patient home duloxetine regimen. 16. GERD: We will continue patient home PPI. 17. ERIC: Noncompliant with CPAP noted prior. 18. DVT prophylaxis: SCDs, continue home xarelto regimen. 19. CODE status: Patient HCPOA is her daughter Cinthia South and living will is currently in place. [facility], no intubation status. Charges/Coding Visit Charges Inpatient E&M: 95539 Init Hosp L3
--- NOTE | 2021-09-05 15:49 | NURSING ---
PCU WHITE CHF, WEAKNESS, HYPOXIA
[2021-09-05 15:53] LABS: Lactic Acid 1.3 mmol/L (0.4-1.9)
[2021-09-05] MEDS: Furosemide 100 MG/10 ML Vial 80 MG IV (16:03)
[2021-09-05 16:19] LABS: Mucous, Urine 0 SEEN /hpf (<or=2+); Red Blood Cells-Urine 0 SEEN /hpf (0-5); Squamous Epithelial Cells - UA 0 SEEN /hpf (5-10)
[2021-09-05 16:23] LABS: Magnesium 1.7 mg/dL (1.6-2.6)
[2021-09-05 16:25] LABS: Color, Urine Yellow (Yellow); Glucose, Dipstick Normal (Normal); Ketone-Dipstick Negative (Negative); Leukocyte Esterase-Dipstick 25 /ul (Negative); Nitrite-Dipstick Negative (Negative); Occult Blood-Urine 10 /ul (Negative); Protein-Dipstick 15 mg/dl (Negative); Specific Gravity, Urine 1.015 (1.002-1.030); Urine Bilirubin Dipstick Negative (Negative); Urine Clarity Clear (Clear); Urine Urobilinogen Normal (Normal)
[2021-09-05 16:41] LABS: Bedside Glucose 150 mg/dL (70-110)
[2021-09-05 17:07] LABS: White Blood Cells 0-5 SEEN /hpf (0-5)
[2021-09-05 17:08] LABS: Bacteria 2+ /hpf (None Seen)
[2021-09-05 17:39] LABS: Troponin-I HS 41 pg/mL (3.0-54.0)
[2021-09-05] MEDS: Rivaroxaban 15 MG Tablet PO (17:56)
[2021-09-05] MEDS: Potassium Chloride Oral Tablet 20 MEQ 40 MEQ PO (17:56)
[2021-09-05] MEDS: Furosemide 100 MG/10 ML Vial 60 MG IV (17:57)
[2021-09-05] MEDS: Latanoprost 0.005% 1 Bottle 1 DRP OPHTHALMIC (20:49)
[2021-09-05] MEDS: Memantine Hydrochloride 10 MG Tablet PO (20:50)
[2021-09-05] MEDS: Donepezil HCl 10 MG Tablet PO (20:50)
[2021-09-05] MEDS: traZODone 50 MG Tablet PO (20:50)
[2021-09-05] MEDS: levETIRAcetam 500 MG Tablet PO (20:50)
[2021-09-05] MEDS: hydrOXYzine 10 MG Tablet PO (20:50)
[2021-09-05] MEDS: Senna Tablet 1 TABLET PO (20:51)
[2021-09-05 21:25] LABS: Bedside Glucose 166 mg/dL (70-110)
[2021-09-05 21:42] LABS: Troponin-I HS 38 pg/mL (3.0-54.0)
--- NOTE | 2021-09-05 22:11 | PCS.PANDOC ---
PANDEMIC DOCUMENTATION INITIATED: Date: 05/28/2021 Time: 190
[2021-09-06] VITALS (12 sets, daily range): BP systolic 115–155; BP diastolic 47–73; PULSE 60–61; RESP 18–24; TEMP 36.4–37.2; O2SAT 94–96
[2021-09-06 06:08] LABS: Absolute Lymphocyte Count 1.47 X10^3/uL (0.83-4.51); Basophil# 0.06 X10^3/uL; Basophil% 0.6 % (0-1); Eosinophil# 0.23 X10^3/uL; Eosinophils% 2.2 % (0-5); Hematocrit 33.4 % (37-47); Hemoglobin 9.3 g/dL (12.0-15.0); Lymphocyte # 1.47 X10^3/ul (0.83-4.51); Lymphocyte % 13.9 % (19-41); Mean Corp Hgb Conc 27.8 g/dL (32-36); Mean Corpuscular Hgb 22.1 pg (27.0-32.0); Mean Corpuscular Volume 79.3 fL (81-99); Mean Platelet Vol. 11.7 fl (6.2-12.0); Monocyte# 0.77 X10^3/uL; Monocyte% 7.3 % (0-10); NRBC Flagged by Analyzer 0 % (0-5); Neutrophil # 7.98 X10^3/uL (2.7-7.7); Neutrophil % 75.5 % (47-70); Platelet Count 227 K/mm3 (150-450); RBC Distribution Width CV 17.2 % (11.6-14.6); RBC Distribution Width SD 49.1 fl (35.1-43.9); Red Blood Count 4.21 M/mm3 (4.2-5.4); White Blood Count 10.6 K/mm3 (4.4-11.0)
[2021-09-06 06:16] LABS: Bedside Glucose 139 mg/dL (70-110)
--- NOTE | 2021-09-06 06:19 | NURSING ---
Patient states she does not feel well, when asked what is the matter states, I don't know shut up and leave me alone. RN checked BS was 139 and vital signs are stable. RR up but patient denied being SOB.
--- NOTE | 2021-09-06 06:54 | PCM.PN.HOSP ---
Subjective Subjective Patient with no acute events overnight per self and per discussion with nursing staff. Patient did overnight have Douglas catheter placed which will be discontinued this morning. Patient declined continuation of snug Lukas wraps to lower extremities secondary to discomfort she notes however her legs do look better than day prior. She states she is breathing easier and able to lay more flat now. Patient understands that we are awaiting skilled placement precertification. Patient denies fevers, chills, nausea, emesis, abdominal pain, chest pain or worsened or recurrent dyspnea. Objective Data Objective Data Vital Signs: Vital Signs Temp Pulse Resp BP Pulse Ox 98.9 F 60 24 H 155/73 H 96 09/06/21 06:16 09/06/21 06:16 09/06/21 06:16 09/06/21 06:16 09/06/21 06:16 Oxygen Flow Rate (L/min) 2 Oxygen Delivery Method Nasal Cannula Weight: 224 lb 10.417 oz Body Mass Index (BMI) 38.6 Intake & Output: Intake and Output for Last 24 Hours 09/04/21 09/05/21 09/06/21 23:59 23:59 23:59 Intake Total 387.5 / 607.5 220 / 220 Output Total 850 / 2900 2700 / 2700 Balance -462.5 / -2292.5 -2480 / -2480 Lab / Micro Data Result Diagrams: 09/06/21 04:42 09/06/21 04:42 Labs: Laboratory Results - last 24 hr 09/05/21 14:40: WBC 9.9, RBC 4.27, Hgb 9.5 L, Hct 33.0 L, MCV 77.3 L, MCH 22.2 L, MCHC 28.8 L, RDW Std Deviation 47.7 H, RDW Coeff of Candace 17.2 H, Plt Count 220, MPV 11.6, Immature Gran % (Auto) 0.300, Neut % (Auto) 81.0 H, Lymph % (Auto) 9.8 L, [place] % (Auto) 6.8, Eos % (Auto) 1.6, Baso % (Auto) 0.5, Absolute Neuts (auto) 8.0 H, Absolute Lymphs (auto) 0.97, Nucleated RBC % 0 09/05/21 14:40: Sodium 146 H, Potassium 3.3 L, Chloride 108 H, Carbon Dioxide 33.0 H, Anion Gap 5, BUN 23 H, Creatinine 0.96, Estim Creat Clear Calc 41.71, Est GFR (MDRD) Af Amer 72, Est GFR (MDRD) Non-Af 60, BUN/Creatinine Ratio 24.0 H, Glucose 165 H, Calcium 7.5 L, Troponin I High Sens 34 09/05/21 14:40: B-Natriuretic Peptide 321.3 H 09/05/21 14:40: Lactic Acid 1.3 09/05/21 14:40: Magnesium 1.7 09/05/21 16:10: Urine Color Yellow, Urine Clarity Clear, Urine pH 6.0, Ur Specific [place] 1.015, Urine Protein 15 H, Urine Glucose (UA) Normal, Urine Ketones Negative, Urine Occult Blood 10 H, Urine Nitrite Negative, Urine Bilirubin Negative, Urine Urobilinogen Normal, Ur Leukocyte Esterase 25 H, Urine RBC 0 SEEN, Urine WBC 0-5 SEEN, Ur Squamous Epith Cells 0 SEEN, Urine Bacteria 2+, Urine Mucus 0 SEEN 09/05/21 16:32: POC Glucose 150 H 09/05/21 17:05: Troponin I High Sens 41 09/05/21 20:47: POC Glucose 166 H 09/05/21 21:15: Troponin I High Sens 38 09/06/21 04:42: WBC 10.6, RBC 4.21, Hgb 9.3 L, Hct 33.4 L, MCV 79.3 L, MCH 22.1 L, MCHC 27.8 L, RDW Std Deviation 49.1 H, RDW Coeff of Candace 17.2 H, Plt Count 227, MPV 11.7, Immature Gran % (Auto) 0.500, Neut % (Auto) 75.5 H, Lymph % (Auto) 13.9 L, [place] % (Auto) 7.3, Eos % (Auto) 2.2, Baso % (Auto) 0.6, Absolute Neuts (auto) 8.0 H, Absolute Lymphs (auto) 1.47, Nucleated RBC % 0 09/06/21 06:10: POC Glucose 139 H Micro: Microbiology 09/05/21 14:46 Nasal Secretion SARS-CoV-2 Antigen (Rapid) - Final Radiography Diagnostic Testing: Radiology Impression Chest X-Ray 09/05/21 14:55 IMPRESSION: 1. Mildly worse CHF with lower lobe edema and slightly increased right and new small left pleural effusion. Electronically Signed: Naseem Swanson MD ([place]) at 15:02 EST , Service support , Physical Exam Narrative Physical Examination: General: awake, alert, oriented to self, place, some recent events, does have underlying dementia, remains cooperative, laying in the PCU bed, no acute distress. Skin: normal color, turgor, no icterus, cyanosis except occasional staged ecchymoses, BL LE stasis disease, upper bilateral chest chronic wounds. HEENT: AT/NC, EOMI, PERRLA, improved MMM. Lungs: Diminished breath sounds, greater bases, appropriate effort, mild rales, no ronchi or wheezing. Heart: Irregular, rate controlled; no gallop, rub audible. Abdomen: soft, morbidly obese, NTTP, ND although difficult exam given habitus, distant normal BS, no obvious HSM but again difficult exam given suprapubic discomfort and habitus Extremities: no cyanosis or clubbing, bilateral lower extremity pedal to distal claros edema, 3+ pitting, bilateral lower extremity chronic stasis changes as noted. Neurological: Awake, alert, oriented as noted, cognitive function at baseline with underlying dementia, pupils equally reactive to light and accommodation, cranial nerves II-XII grossly normal, moving all 4 extremities, no focal deficits, strength moderately to severely globally decreased Psychiatric: Affect appears fatigued otherwise normal, no acute evidence of depressive or anxiety feelings. Assessment & Plan Assessment/Plan (1) CHF (congestive heart failure): QUALIFIERS: Heart failure chronicity: acute Heart failure type: diastolic Qualified Code(s): I50.31 - Acute diastolic (congestive) heart failure (2) Acute dyspnea: PLAN: The patient is a 73 y/o F w/ PMHx: Chronic normocytic anemia, CAD s/p PCI SITA proximal LAD 2004 and SITA Linferolateral marginal branch 2010, Hx Sick Sinus Syndrome s/p pacemaker placement, GERD, HTN, HLD, Chronic Diastolic CHF, PAF, Anxiety and Depression, Seizure disorder, Diabetes mellitus type II, ERIC, CKD stage III, Chronic back pain, Hypothyroidism, Dementia unclear type with unclear behavioral disturbance history who presents to the [facility] ED on 09/05/21 with history of increased fatigue, malaise, dyspnea, worsening with exertion with dry cough and worsening oxygenation of 88% on her baseline 2L NC with inability to function in her assisted living with likely need for SNF. 1. Acute on Chronic Diastolic CHF w/ Chronic Hypoxic Respiratory Failure w/ mildly increased hypoxia: Patient administered IV lasix in the ED, will admit to PCU, maintain on cardiac telemetry, obtain cardiac enzyme series, obtain serial EKGs, continue IV lasix diuresis with oral transition 09/07/21, monitor I/Os, maintain on intake restriction, continue medical therapy, TSH 1.60, magnesium 1.7. Most recent ECHO noted 05/28/2021 with normal LV size, hyperdynamic LV systolic function, EF 65%, mild concentric LVH, ICD/pacer leads identified in the right ventricle. Will place snug lukas wraps with BL LE elevation. PT/OT/CM consultations for discharge planning to likely SNF, need facility chosen and pre-certification. 2. Hypokalemia: Admission K+ 3.3, magnesium level 1.7 with supplementation administered, supplementation given, repeat level 09/06/21 K + 4.0. 3. Chronic chest wounds, non-infected appearing: CBC not marked appearing, no obvious infection, will consult Wound RN, continue dressings especially given tendency to pick at the wound. 4. CAD with Chest pain complaint: Status post PCI proximal LAD 2004 as well as left anterior lateral marginal branch in 2010, continue aspirin, prasugrel, statin, metoprolol, not on LUKAS inhibitor or ARB. 5. PAF: Continue patient home metoprolol, continue aspirin/prasugrel as well as home xarelto regimen. 6. Hypertension: Continue home metoprolol regimen, isosorbide, IV Lasix as noted above w/ planned 09/07/21 oral transition, as needed IV hydralazine 7. Hyperlipidemia: Continue home statin therapy, AM FLP w/ TG 106, total cholesterol was 163, LDL 106, VLDL 21, HDL 36. 8. Chronic normocytic anemia: Admission hemoglobin 9.5, previous baseline 10-11, stable, trend. 9. Diabetes mellitus type II: Hold oral home regimen, continue home insulin regimen, ADA diet, accu checks w/ ISS. 10. Seizure disorder, epilepsy: Continue home Keppra regimen. 11. History of sick sinus syndrome: Status post pacemaker placement, will plan to interrogate. 12. Hypothyroidism: History of goiter status post thyroidectomy, continue home Synthroid regimen. 13. Dementia, unclear type with unclear behavioral disturbance history: Patient does have notable dementia baseline as well as noncompliance, complicates presentation, will continue home aricept and memantine home regimen. 14. Chronic Kidney Disease Stage III: Admission BUN/Cr 23/0.96, baseline renal function 1.1-1.3, continue to trend. 09/06/21 BUN/Cr 22/1.04. 15. Anxiety and depression: Continue patient home duloxetine regimen. 16. GERD: We will continue patient home PPI. 17. ERIC: Noncompliant with CPAP noted prior. 18. DVT prophylaxis: SCDs, continue home xarelto regimen. 19. CODE status: Patient HCPOA is her daughter Cinthia South and living will is currently in place. Patient listed from facility and most recent HCPOA paperwork as DNR-CCA, no intubation status. Charges/Coding Visit Charges Inpatient E&M: 06106 Subs Hosp L2
[2021-09-06 08:07] LABS: ALB/GLOB Ratio 0.6 RATIO (0.9-2.4); AST(SGOT) 12 U/L (15-37); Alanine Aminotransfer ALT/SGPT 14 U/L (13-56); Albumin, Serum 2.6 g/dL (3.2-5.0); Alkaline Phosphatase 89 U/L (45-117); Anion Gap 6 (5-15); BUN 22 mg/dL (7-18); BUN/Creat Ratio 21.2 RATIO (10-20); Calcium,Total 8.9 mg/dL (8.5-10.1); Chloride 98 mmol/L (98-107); Cholesterol 163 mg/dL (200); Creatinine, Serum 1.04 mg/dL (0.55-1.02); EST Glomerular Filtration Rate 55 mL/min (>60); Est Glom Filt Rate - Afr Amer 66 mL/min (>60); Globulin 4.7 g/dL (2.2-4.2); Glucose 145 mg/dL (74-106); High Density Lipoprotein 36 mg/dL; Protein, Total 7.3 g/dL (6.4-8.2); Sodium Level 141 mmol/L (136-145); Triglycerides 106 mg/dL; Very Low Density Lipoprotein 21 mg/dL (5-40)
[2021-09-06] MEDS: Fluticasone 0.05% 1 SPRAY NASAL.SRY 2 SPRAY NASAL ×2 (09:33→20:29)
[2021-09-06] MEDS: DULoxetine Hcl 30 MG Capsule PO (09:34)
[2021-09-06] MEDS: Loratadine 10 MG Tablet PO (09:34)
[2021-09-06] MEDS: Isosorbide Mononitrate 60 MG Tablet PO (09:35)
[2021-09-06] MEDS: levETIRAcetam 500 MG Tablet PO ×2 (09:35→20:29)
[2021-09-06] MEDS: Ascorbic Acid 500 MG Tablet PO (09:36)
[2021-09-06] MEDS: Pantoprazole Sodium 20 MG Tablet PO (09:36)
[2021-09-06] MEDS: Senna Tablet 1 TABLET PO ×2 (09:36→20:27)
[2021-09-06] MEDS: Memantine Hydrochloride 10 MG Tablet PO ×2 (09:36→20:28)
[2021-09-06] MEDS: Potassium Chloride Oral Tablet 20 MEQ PO (09:41)
[2021-09-06] MEDS: Furosemide 100 MG/10 ML Vial 60 MG IV ×2 (09:41→17:01)
[2021-09-06] MEDS: 0.9% Saline Lock 10 ML Syringe IV ×2 (09:42→17:01)
[2021-09-06] MEDS: Insulin Lispro 100 UNIT/ML INSULN.PEN SC ×3 (11:31→20:30)
--- NOTE | 2021-09-06 11:39 | NURSING ---
Douglas catheter d/c, pt tolerated well.
[2021-09-06 11:45] LABS: Bedside Glucose 188 mg/dL (70-110)
--- NOTE | 2021-09-06 13:26 | EKG12_ITS ---
Test Reason : RHYTHM Blood Pressure : / mmHG Vent. Rate : 060 BPM Atrial Rate : 394 BPM P-R Int : 000 ms QRS Dur : 162 ms QT Int : 482 ms P-R-T Axes : 000 -79 087 degrees QTc Int : 482 ms Ventricular-paced rhythm Abnormal ECG When compared with ECG of 05-SEP-2021 14:44, MANUAL COMPARISON REQUIRED, DATA IS UNCONFIRMED Confirmed by TAM GALINDO, LORRAINE ([id number]), medical editor WILLIS HAWKINS ([id number]) on 09/07/2021 11:51:19 AM Referred By: JOSE Confirmed By:LORRAINE TURCIOS MD
[2021-09-06] MEDS: Rivaroxaban 15 MG Tablet PO (17:07)
[2021-09-06] MEDS: Acetaminophen 325 MG Tablet 650 MG PO (17:52)
[2021-09-06 18:10] LABS: Bedside Glucose 227 mg/dL (70-110)
[2021-09-06] MEDS: hydrOXYzine 10 MG Tablet PO (20:28)
[2021-09-06] MEDS: traZODone 50 MG Tablet PO (20:28)
[2021-09-06] MEDS: Donepezil HCl 10 MG Tablet PO (20:28)
[2021-09-06 20:50] LABS: Bedside Glucose 206 mg/dL (70-110)
[2021-09-07] VITALS (11 sets, daily range): BP systolic 143–163; BP diastolic 56–115; PULSE 60–62; RESP 16–20; TEMP 36.3–36.6; O2SAT 92–96
[2021-09-07] MEDS: Insulin Lispro 100 UNIT/ML INSULN.PEN SC ×4 (06:27→20:02)
--- NOTE | 2021-09-07 06:44 | PN.HOSP_ITS ---
Subjective Subjective Patient with no events overnight per self and per nursing report. Patient breathing with greater ease and moving with greater ease. Her lower extremity swelling has significantly improved but she still has chronic neuropathy pain with palpation. She remains amenable to fdc facility placement and understands that likely this will not be until at least possibly Friday into the next week. Patient denies fevers, chills, nausea, emesis, abdominal pain, chest pain or worsened or recurrent dyspnea. Objective Data Objective Data Vital Signs: Vital Signs Temp Pulse Resp BP Pulse Ox 97.9 F 60 16 163/68 H 96 09/07/21 02:50 09/07/21 02:59 09/07/21 02:50 09/07/21 02:50 09/07/21 02:50 Oxygen Flow Rate (L/min) 2 Oxygen Delivery Method Nasal Cannula Weight: 219 lb 2.232 oz Body Mass Index (BMI) 38.6 Intake & Output: Intake and Output for Last 24 Hours 09/05/21 09/06/21 09/07/21 23:59 23:59 23:59 Intake Total 387.5 / 607.5 834 / 834 Output Total 850 / 2900 4010 / 4010 200 / 200 Balance -462.5 / -2292.5 -3176 / -3176 -200 / -200 Lab / Micro Data Result Diagrams: 09/06/21 04:42 09/06/21 04:42 Labs: Laboratory Results - last 24 hr 09/06/21 04:42: Sodium 141, Potassium 4.0, Chloride 98, Carbon Dioxide 37.0 H, Anion Gap 6, BUN 22 H, Creatinine 1.04 H, Estim Creat Clear Calc 38.50, Est GFR (MDRD) Af Amer 66, Est GFR (MDRD) Non-Af 55 L, BUN/Creatinine Ratio 21.2 H, Glucose 145 H, Calcium 8.9, Total Bilirubin 0.50, AST 12 L, ALT 14, Alkaline Phosphatase 89, Total Protein 7.3, Albumin 2.6 L, Globulin 4.7 H, Albumin/Globulin Ratio 0.6 L, Triglycerides 106, Cholesterol 163, LDL Cholesterol 106, VLDL Cholesterol 21, HDL Cholesterol 36 L, TSH 1.60 09/06/21 11:27: POC Glucose 188 H 09/06/21 16:59: POC Glucose 227 H 09/06/21 20:26: POC Glucose 206 H Micro: Microbiology 09/05/21 14:46 Nasal Secretion SARS-CoV-2 Antigen (Rapid) - Final Physical Exam Narrative Physical Examination: General: awake, alert, oriented to self, place, some recent events, does have underlying dementia, remains cooperative, seated upright in bed, NAD. Skin: normal color, turgor, no icterus, cyanosis except occasional staged ecchymoses, BL LE stasis disease, upper bilateral chest chronic wounds. HEENT: AT/NC, EOMI, PERRLA, MMM. Lungs: Diminished breath sounds, greater bases, appropriate effort, mild rales, no ronchi or wheezing. Heart: Irregular, rate controlled; no gallop, rub audible. Abdomen: soft, morbidly obese, NTTP, ND although difficult exam given habitus, distant normal BS. Extremities: no cyanosis or clubbing, bilateral lower extremity pedal to distal claros edema upon admission 3+ pitting-->notably improved, still BL LE TTP with neuropathic pain. Neurological: Awake, alert, oriented as noted, cognitive function at baseline with underlying dementia, pupils equally reactive to light and accommodation, cranial nerves II-XII grossly normal, moving all 4 extremities, no focal deficits, strength improving, moderately globally decreased Psychiatric: Affect appears improved, less fatigued, no acute evidence of depressive or anxiety feelings. Assessment & Plan Assessment/Plan (1) CHF (congestive heart failure): QUALIFIERS: Heart failure type: diastolic Heart failure chronicity: acute Qualified Code(s): I50.31 - Acute diastolic (congestive) heart failure (2) Acute dyspnea: PLAN: The patient is a 73 y/o F w/ PMHx: Chronic normocytic anemia, CAD s/p PCI SITA proximal LAD 2004 and SITA Linferolateral marginal branch 2010, Hx Sick Sinus Syndrome s/p pacemaker placement, GERD, HTN, HLD, Chronic Diastolic CHF, PAF, Anxiety and Depression, Seizure disorder, Diabetes mellitus type II, ERIC, CKD stage III, Chronic back pain, Hypothyroidism, Dementia unclear type with unclear behavioral disturbance history who presents to the [facility] ED on with history of increased fatigue, malaise, dyspnea, worsening with exertion with dry cough and worsening oxygenation of 88% on her baseline 2L NC with inability to function in her assisted living with likely need for SNF. 1. Acute on Chronic Diastolic CHF w/ Chronic Hypoxic Respiratory Failure w/ mildly increased hypoxia: Patient administered IV lasix in the ED, will admit to PCU, maintain on cardiac telemetry, obtain cardiac enzyme series, obtain serial EKGs, continue IV lasix diuresis with oral transition 09/07/21, monitor I/Os, maintain on intake restriction, continue medical therapy, TSH 1.60, magnesium 1.7. Most recent ECHO noted 05/28/2021 with normal LV size, hyperdynamic LV s ystolic function, EF 65%, mild concentric LVH, ICD/pacer leads identified in the right ventricle. Attempted BL LE snug dwain wraps with BL LE elevation; however, patient has not been amenable. PT/OT/CM consultations for discharge planning to likely SNF, precertification will not occur until start of next week secondary to holiday weekend. 2. Hypokalemia: Admission K+ 3.3, magnesium level 1.7 with supplementation administered, supplementation given, repeat level 09/06/21 K + 4.0. 09/07/21 BMP pending. 3. Chronic chest wounds, non-infected appearing: CBC not marked appearing, no obvious infection, will consult Wound RN, continue dressings especially given tendency to pick at the wound. 4. CAD with Chest pain complaint: Status post PCI proximal LAD 2004 as well as left anterior lateral marginal branch in 2010, continue aspirin, prasugrel, statin, metoprolol, not on DWAIN inhibitor or ARB. 5. PAF: Continue patient home metoprolol, continue aspirin/prasugrel as well as home xarelto regimen. 6. Hypertension: Continue home metoprolol regimen, isosorbide, IV Lasix as noted above w/ planned 09/07/21 oral transition, as needed IV hydralazine 7. Hyperlipidemia: Continue home statin therapy, AM FLP w/ TG 106, total cholesterol was 163, LDL 106, VLDL 21, HDL 36. 8. Chronic normocytic anemia: Admission hemoglobin 9.5, previous baseline 10- 11, stable, trend. 9. Diabetes mellitus type II: Hold oral home regimen, continue home insulin regimen, ADA diet, accu checks w/ ISS. 10. Seizure disorder, epilepsy: Continue home Keppra regimen. 11. History of sick sinus syndrome: Status post pacemaker placement, will plan to interrogate. 12. Hypothyroidism: History of goiter status post thyroidectomy, continue home Synthroid regimen. 13. Dementia, unclear type with unclear behavioral disturbance history: Patient does have notable dementia baseline as well as noncompliance, complicates presentation, will continue home aricept and memantine home regimen. 14. Chronic Kidney Disease Stage III: Admission BUN/Cr 23/0.96, baseline renal function 1.1-1.3, continue to trend. 09/06/21 BUN/Cr 22/1.04. 09/07/21 BMP pending. 15. Anxiety and depression: Continue patient home duloxetine regimen. 16. GERD: We will continue patient home PPI. 17. ERIC: Noncompliant with CPAP noted prior. 18. DVT prophylaxis: SCDs, continue home xarelto regimen. 19. CODE status: Patient HCPOA is her daughter Cinthia South and living will is currently in place. DNR-CCA, no intubation status. Charges/Coding Visit Charges Inpatient E&M: 00896 Subs Hosp L2
[2021-09-07 06:56] LABS: Bedside Glucose 159 mg/dL (70-110)
--- NOTE | 2021-09-07 09:46 | WOUNDNOTE ---
wound photo: right lower leg
--- NOTE | 2021-09-07 09:47 | WOUNDNOTE ---
wound photo: left lower leg
--- NOTE | 2021-09-07 09:48 | WOUNDNOTE ---
wound photo: left chest
--- NOTE | 2021-09-07 09:50 | WOUNDNOTE ---
wound photo: left ear
--- NOTE | 2021-09-07 09:51 | WOUNDNOTE ---
wound photo: chin
--- NOTE | 2021-09-07 09:55 | CASEMGMT ---
SW attempted to see patient, but she is receiving patient care. MINAL called patient's daughter Cinthia and left her a voice mail requesting return call regarding d/c plan. Tonja SAVAGE
[2021-09-07] MEDS: levETIRAcetam 500 MG Tablet PO ×2 (10:11→20:03)
[2021-09-07] MEDS: Memantine Hydrochloride 10 MG Tablet PO ×2 (10:11→20:03)
[2021-09-07] MEDS: Ascorbic Acid 500 MG Tablet PO (10:11)
[2021-09-07] MEDS: Levothyroxine 50 MCG Tablet PO (10:11)
[2021-09-07] MEDS: Fluticasone 0.05% 1 SPRAY NASAL.SRY 2 SPRAY NASAL ×2 (10:11→20:02)
[2021-09-07] MEDS: Loratadine 10 MG Tablet PO (10:11)
[2021-09-07] MEDS: Pantoprazole Sodium 20 MG Tablet PO (10:11)
[2021-09-07] MEDS: Senna Tablet 1 TABLET PO ×2 (10:12→20:03)
[2021-09-07] MEDS: Isosorbide Mononitrate 60 MG Tablet PO (10:12)
[2021-09-07] MEDS: Furosemide 40 MG Tablet 60 MG PO ×2 (10:12→18:06)
[2021-09-07] MEDS: DULoxetine Hcl 30 MG Capsule PO (10:12)
[2021-09-07] MEDS: Potassium Chloride Oral Tablet 20 MEQ PO (10:17)
--- NOTE | 2021-09-07 10:24 | CASEMGMT ---
Addendum entered by Tonja Benavidez 09/07/21 11:47: MINAL spoke with Cinthia and she would like patient to go to [facility]. SW let her know that [facility] has a bed for her and we just need to wait on insurance to authorize. MINAL told Cinthia it could possibly happen over the weekend, but if not it wouldn't be until Friday at the earliest. Cinthia just asked that someone call her and leave a voice mail if patient does go to [facility]. MINAL told her that would not be a problem. Plan: [facility] under skilled level of care pending insurance approval. Tonja SAVAGE Original Note: MINAL called [facility] as this is where patient normally goes for long-term since she is from their assisted living. Per Sumi they do not have any beds open. Sumi mentioned that family was talking about [facility]. MINAL called [facility] and Priya said she has been talking with patient's family. MINAL faxed her clinicals so she could get started on a pre-cert in the event patient is ready over the weekend. MINAL is still waiting to talk to patient's daughter Cinthia. MINAL did talk with patient about which long-term and she said she doesn't know and for SW to talk with Cinthia. Plan: d/c to [facility] pending pre-cert unless patient's daughter Cinthia says otherwise. Tonja SAVAGE
[2021-09-07 12:40] LABS: Bedside Glucose 176 mg/dL (70-110)
[2021-09-07 13:36] LABS: Absolute Lymphocyte Count 0.87 X10^3/uL (0.83-4.51); Absolute Neutrophil Count 8.9 X10^3/uL (2.0-7.7); Basophil# 0.04 X10^3/uL; Basophil% 0.4 % (0-1); Eosinophil# 0.13 X10^3/uL; Eosinophils% 1.2 % (0-5); Hematocrit 34.2 % (37-47); Hemoglobin 9.6 g/dL (12.0-15.0); Lymphocyte # 0.87 X10^3/ul (0.83-4.51); Lymphocyte % 8.2 % (19-41); Mean Corp Hgb Conc 28.1 g/dL (32-36); Mean Corpuscular Hgb 22.5 pg (27.0-32.0); Mean Corpuscular Volume 80.1 fL (81-99); Mean Platelet Vol. 11.4 fl (6.2-12.0); Monocyte# 0.62 X10^3/uL; Monocyte% 5.9 % (0-10); NRBC Flagged by Analyzer 0 % (0-5); Platelet Count 236 K/mm3 (150-450); RBC Distribution Width SD 48.9 fl (35.1-43.9); Red Blood Count 4.27 M/mm3 (4.2-5.4); White Blood Count 10.6 K/mm3 (4.4-11.0)
[2021-09-07 13:46] LABS: Anion Gap 2 (5-15); BUN 21 mg/dL (7-18); BUN/Creat Ratio 18.6 RATIO (10-20); Calcium,Total 9.4 mg/dL (8.5-10.1); Chloride 100 mmol/L (98-107); Creatinine, Serum 1.13 mg/dL (0.55-1.02); EST Glomerular Filtration Rate 50 mL/min (>60); Est Glom Filt Rate - Afr Amer 60 mL/min (>60); Estimated Creatinine Clearance 35.43 ml/min; Glucose 201 mg/dL (74-106); Potassium 4.1 mmol/L (3.5-5.1); Sodium Level 142 mmol/L (136-145)
--- NOTE | 2021-09-07 14:47 | TREXTCAR_ITS ---
Diet 09/05/21 16:25 Diet: Cardiac: Calorie-Controlled Food consistency:: Regular Liquid Consistency:: Regular/Thin Dietary Modifications:: Consistent Carbohydrate Sodium Restricted Fluid restriction:: 1500 mL How many daily calories?: 1800 calorie DISCHARGE DIAGNOSES: 1. Acute on Chronic Diastolic CHF w/ Chronic Hypoxic Respiratory Failure w/ mildly increased hypoxia 2. Hypokalemia 3. Chronic chest wounds, non-infected appearing 4. CAD with Chest pain complaint 5. PAF 6. Hypertension 7. Hyperlipidemia 8. Chronic normocytic anemia 9. Diabetes mellitus type II 10. Seizure disorder, epilepsy 11. History of sick sinus syndrome 12. Hypothyroidism 13. Dementia, unclear type with unclear behavioral disturbance history 14. Chronic Kidney Disease Stage III 15. Anxiety and depression 16. GERD 17. ERIC 18. CODE status: Patient ELLA is her daughter Cinthia South and living will is currently in place. DNR-CCA, no intubation status. Routine Orders/Code Status Enema Type: Fleetz Enema Frequency: Daily PRN Suppository Type: Dulcolax 10mg Suppository Frequency: Daily PRN O2 Liters per Minute: 2-3 O2 Frequency: Continuous Keep PO Greater than or Equal to (%): 90 Wound(s) chin/left ear/chest: Wound Type: small open areas from picking rt and left claros: Wound Type: small scabs Suggestions for Active Care Change Position every (hours): 2 Hours to sit in a chair: 6 Times a day to sit in chair: 3 Therapies Weight Bearing: Full weight bearing Extremity Affected:: Bilateral Lower Physical Therapy: Eval and Treat Occupational Therapy: Eval and Treat Problem/Diagnosis (1) CHF (congestive heart failure): Status: Acute (2) Acute dyspnea: Status: Acute Allergies/Procedures Done in Hospital Allergies atorvastatin calcium [From Lipitor] Allergy (Verified 05/26/21 17:05) dont remember codeine Allergy (Verified 05/26/21 17:05) Rash iodine Allergy (Verified 05/26/21 17:05) Rash Latex, Natural Rubber Allergy (Verified 05/26/21 17:05) Rash lovastatin Allergy (Verified 05/26/21 17:05) Rash rosuvastatin calcium [From Crestor] Allergy (Verified 05/26/21 17:05) rash\ tositumomab Allergy (Verified 05/26/21 17:05) PT UNSURE OF REACTION naproxen [From Naprosyn] Adverse Reaction (Verified 05/26/21 17:05) Upset Stomach pregabalin [From Lyrica] Adverse Reaction (Verified 05/26/21 17:05) Upset Stomach Sulfa (Sulfonamide Antibiotics) Adverse Reaction (Verified 05/26/21 17:05) Upset Stomach Procedures: EKG Type of Care/Length of Stay Estimated LOS: Convalescent Care Less Than 30 days Type of Care Needed: Skilled Rehab Potential: Fair Prognosis: Fair Additional Orders/Day of Discharge Additional Orders: (1) Encourage IS 10x/hr 7a-7p, (2) BL LE snug dheeraj wraps toe to knee overlapping no skin showing continuously with reprieve at night, (3) Repeat CBC, CMP within 1 week. Day of Discharge: 09/07/21 Dietary and Speech Recommendations Dietitian Recommendations/Changes: 1800 calorie/consistent carbohydrate; cardiac/sodium-restricted diet with 1500ml FR ONS as needed once intake established w/ meals. Discharge Plan Admission Admit Date/Time: 09/05/21 15:39 Primary Reason for Your Visit: Acute on Chronic Diastolic CHF exac with Chronic Resp Failure w/ Hypoxia Attending Provider: Ana Cristina Stevens Primary Care Provider: Emerita Gottlieb Instructions Additional Instructions / Restrictions: DISCHARGE DIAGNOSES: 1. Acute on Chronic Diastolic CHF w/ Chronic Hypoxic Respiratory Failure w/ mildly increased hypoxia 2. Hypokalemia 3. Chronic chest wounds, non-infected appearing 4. CAD 5. PAF 6. Hypertension 7. Hyperlipidemia 8. Chronic normocytic anemia 9. Diabetes mellitus type II 10. Seizure disorder, epilepsy 11. History of sick sinus syndrome 12. Hypothyroidism 13. Dementia, unclear type with unclear behavioral disturbance history 14. Chronic Kidney Disease Stage III 15. Anxiety and depression 16. GERD 17. ERIC 18. CODE status: Patient ELLA is her daughter Cinthia South and living will is currently in place. DNR-CCA, no intubation status. Discharge Orders/Prescriptions Prescriptions: New furosemide 40 mg Tablet 60 mg PO BIDLX 30 Days Qty: 0 RF: 0 Continued levetiracetam 500 mg tablet 500 mg PO BID RF: 0 latanoprost 0.005 % drops 1 drp EACH EYE QHS RF: 0 senna 8.6 mg capsule 8.6 mg PO BID RF: 0 prasugrel 10 MG tablet 10 mg PO DAILY RF: 0 duloxetine 30 MG capsule,delayed release(DR/EC) 30 mg PO DAILY RF: 0 omeprazole 20 MG capsule 20 mg PO DAILY RF: 0 acetaminophen 325 MG tablet 650 mg PO Q6H PRN PRN (Reason: Pain Score 1-10/Temp > 100.7 F) RF: 0 nitroglycerin 0.4 MG tablet, sublingual 0.4 mg SUBLINGUAL PRN PRN (Reason: chest pain) RF: 0 fluticasone propionate 1 SPRAY spray,suspension 2 spray NARES BID RF: 0 trazodone 50 mg Tablet 50 mg PO QHS RF: 0 cetirizine [Zyrtec] 10 mg Tablet 10 mg PO DAILY RF: 0 donepezil [Aricept] 10 mg Tablet 10 mg PO QHS RF: 0 levothyroxine [Synthroid] 50 mcg Tablet 50 mcg PO DAILY RF: 0 memantine 10 mg Tablet 10 mg PO BID RF: 0 potassium chloride 20 mEq Tablet Extended Release 20 meq PO DAILY RF: 0 isosorbide mononitrate 60 mg Tablet Extended Release 24 Hr 60 mg PO DAILY Qty: 30 RF: 0 hydrocodone-acetaminophen 5-325 mg Tablet 1 tab PO Q8H PRN (Reason: Pain) RF: 0 ascorbic acid (vitamin C) 500 mg Tablet 500 mg PO DAILY RF: 0 hydroxyzine HCl 10 mg Tablet 10 mg PO QHS RF: 0 Lantus Solostar U-100 Insulin 100 unit/mL (3 mL) Insulin Pen 20 unit subcut DAILY RF: 0 Lantus Solostar U-100 Insulin 100 unit/mL (3 mL) insulin pen 15 unit subcut QHS RF: 0 Xarelto 15 mg tablet 15 mg PO DINNER RF: 0 Discontinued furosemide 40 mg tablet 40 mg PO BID Qty: 1 RF: 0 furosemide [Lasix] 20 mg Tablet 20 mg PO BID RF: 0 Referrals / Follow Up: Emerita Gottlieb MD [Primary Care Provider] - (Follow-up within 3-5 days discharge hospital and within 1-2 days SNF discharge.) Kimberly Ramos PA [PHYSICIAN INSTRUMENT AND CONTROL SERVICE PERSON] - (Follow-up in 1-2 weeks to review admission.) Disposition Disposition (needs filled in before D/C Order can be placed): [facility]
[2021-09-07] MEDS: Rivaroxaban 15 MG Tablet PO (18:06)
[2021-09-07 18:26] LABS: Bedside Glucose 172 mg/dL (70-110)
--- NOTE | 2021-09-07 20:00 | NURSING ---
Pt requesting meds and vitals to be taken early so she can go to sleep.
[2021-09-07] MEDS: hydrOXYzine 10 MG Tablet PO (20:03)
[2021-09-07] MEDS: traZODone 50 MG Tablet PO (20:03)
[2021-09-07] MEDS: Donepezil HCl 10 MG Tablet PO (20:03)
[2021-09-07 20:21] LABS: Bedside Glucose 207 mg/dL (70-110)
[2021-09-07] MEDS: Acetaminophen 325 MG Tablet 650 MG PO (23:34)
[2021-09-08] VITALS (12 sets, daily range): BP systolic 131–182; BP diastolic 56–72; PULSE 59–60; RESP 18; TEMP 36.6–36.9; O2SAT 94–100
[2021-09-08] MEDS: Levothyroxine 50 MCG Tablet PO (05:22)
--- NOTE | 2021-09-08 06:35 | PCM.PN.HOSP ---
Subjective Subjective Patient with no acute events overnight per self and per nursing report. Patient is fatigued this morning, comments that she is tired and denies any specific acute complaints at this time. She does with staff frequently complain of chest discomfort however on evaluation EKG is unremarkable and cardiac enzymes are normal with reproducible chest discomfort with palpation. Family discussed with PCU staff concerns for potential anxiety and alteration of her regimen. Discussed this with patient and she is amenable to Cymbalta increase however with her morning fatigue did discuss decrease of her trazodone. Patient denies fevers, chills, nausea, emesis, abdominal pain or recurrent or worsened dyspnea. Objective Data Objective Data Vital Signs: Vital Signs Temp Pulse Resp BP Pulse Ox 98.4 F 59 L 18 135/58 H 98 09/08/21 05:20 09/08/21 05:20 09/08/21 05:20 09/08/21 05:20 09/08/21 05:20 Oxygen Flow Rate (L/min) 2 Oxygen Delivery Method Nasal Cannula Weight: 218 lb 4.122 oz Body Mass Index (BMI) 38.6 Intake & Output: Intake and Output for Last 24 Hours 09/06/21 09/07/21 09/08/21 23:59 23:59 23:59 Intake Total 834 / 834 240 / 340 100 / 100 Output Total 4010 / 4010 200 / 200 Balance -3176 / -3176 40 / 140 100 / 100 Lab / Micro Data Result Diagrams: 09/08/21 06:55 09/08/21 06:55 Labs: Laboratory Results - last 24 hr 09/07/21 06:26: POC Glucose 159 H 09/07/21 11:55: POC Glucose 176 H 09/07/21 13:17: WBC 10.6, RBC 4.27, Hgb 9.6 L, Hct 34.2 L, MCV 80.1 L, MCH 22.5 L, MCHC 28.1 L, RDW Std Deviation 48.9 H, RDW Coeff of Candace 17.0 H, Plt Count 236, MPV 11.4, Immature Gran % (Auto) 0.300, Neut % (Auto) 84.0 H, Lymph % (Auto) 8.2 L, Laporte % (Auto) 5.9, Eos % (Auto) 1.2, Baso % (Auto) 0.4, Absolute Neuts (auto) 8.9 H, Absolute Lymphs (auto) 0.87, Nucleated RBC % 0 09/07/21 13:17: Sodium 142, Potassium 4.1, Chloride 100, Carbon Dioxide 40.0 H, Anion Gap 2 L, BUN 21 H, Creatinine 1.13 H, Estim Creat Clear Calc 35.43, Est GFR (MDRD) Af Amer 60, Est GFR (MDRD) Non-Af 50 L, BUN/Creatinine Ratio 18.6, Glucose 201 H, Calcium 9.4 09/07/21 18:04: POC Glucose 172 H 09/07/21 19:58: POC Glucose 207 H Micro: Microbiology 09/05/21 14:40 Blood Culture (Wb) - Right Forearm Blood Culture - Preliminary No growth in 48 hours. 09/05/21 14:46 Nasal Secretion SARS-CoV-2 Antigen (Rapid) - Final Physical Exam Narrative Physical Examination: General: awake, alert, oriented to self, place, some recent events, does have underlying dementia, remains cooperative, seated upright in bed, NAD. Skin: normal color, turgor, no icterus, cyanosis except occasional staged ecchymoses, BL LE stasis disease although less pronounced since diuresis, upper bilateral chest chronic wounds. HEENT: AT/NC, EOMI, PERRLA, MMM. Lungs: Diminished breath sounds, greater bases, appropriate effort, mild rales, no ronchi or wheezing. Heart: Irregular, rate controlled; no gallop, rub audible. Significant reproducible pain with palpation of the sternal and chest region. Abdomen: soft, morbidly obese, NTTP, ND although difficult exam given habitus, distant normal BS. Extremities: no cyanosis or clubbing, bilateral lower extremity pedal to distal claros edema upon admission 3+ pitting-->notably improved, still BL LE TTP with neuropathic pain. Neurological: Awake, alert, oriented as noted, cognitive function at baseline with underlying dementia, pupils equally reactive to light and accommodation, cranial nerves II-XII grossly normal, moving all 4 extremities, no focal deficits, strength improving, moderately globally decreased Psychiatric: Affect appears fatigued this morning, no appearance of depression or anxiety but very flat affect but is considerably fatigued she notes. Patient does have underlying history of depression and anxiety. Assessment & Plan Assessment/Plan (1) CHF (congestive heart failure): QUALIFIERS: Heart failure chronicity: acute Heart failure type: diastolic Qualified Code(s): I50.31 - Acute diastolic (congestive) heart failure (2) Acute dyspnea: PLAN: The patient is a 73 y/o F w/ PMHx: Chronic normocytic anemia, CAD s/p PCI SITA proximal LAD 2004 and SITA Linferolateral marginal branch 2010, Hx Sick Sinus Syndrome s/p pacemaker placement, GERD, HTN, HLD, Chronic Diastolic CHF, PAF, Anxiety and Depression, Seizure disorder, Diabetes mellitus type II, ERIC, CKD stage III, Chronic back pain, Hypothyroidism, Dementia unclear type with unclear behavioral disturbance history who presents to the [facility] ED on 09/05/21 with history of increased fatigue, malaise, dyspnea, worsening with exertion with dry cough and worsening oxygenation of 88% on her baseline 2L NC with inability to function in her assisted living with likely need for SNF. 1. Acute on Chronic Diastolic CHF w/ Chronic Hypoxic Respiratory Failure w/ mildly increased hypoxia: Patient administered IV lasix in the ED, will admit to PCU, maintain on cardiac telemetry, obtain cardiac enzyme series, obtain serial EKGs, continue IV lasix diuresis with oral transition 09/07/21, monitor I/Os, maintain on intake restriction, continue medical therapy, TSH 1.60, magnesium 1.7. Most recent ECHO noted 05/28/2021 with normal LV size, hyperdynamic LV systolic function, EF 65%, mild concentric LVH, ICD/pacer leads identified in the right ventricle. Attempted BL LE snug dwain wraps with BL LE elevation; however, patient has not been amenable. PT/OT/CM consultations for discharge planning to SNF, still awaiting precertification. 2. Chest Pain, musculoskeletal: EKG in ED no acute evidence of ischemia, serial enzymes have been unremarkable, chest x-ray with no acute cardiopulmonary findings. Patient on telemetry monitoring with no acute events, significantly reproducible chest discomfort. Suspect likely musculoskeletal in nature. Family is concerned for increased anxiety with adjustments as noted. 3. Hypokalemia: Admission K+ 3.3, magnesium level 1.7 with supplementation administered, supplementation given, repeat level 09/08/21 K + 3.9. 4. Chronic chest wounds, non-infected appearing: CBC not marked appearing, no obvious infection, will consult Wound RN, continue dressings especially given tendency to pick at the wound. 5. CAD with Chest pain complaint: Status post PCI proximal LAD 2004 as well as left anterior lateral marginal branch in 2010, continue aspirin, prasugrel, statin, metoprolol, not on DWAIN inhibitor or ARB. 6. PAF: Continue patient home metoprolol, continue aspirin/prasugrel as well as home xarelto regimen. 7. Hypertension: Continue home metoprolol regimen, isosorbide, IV Lasix initially with 09/07/21 oral transition, as needed IV hydralazine 8. Hyperlipidemia: Continue home statin therapy, AM FLP w/ TG 106, total cholesterol was 163, LDL 106, VLDL 21, HDL 36. 9. Chronic normocytic anemia: Admission hemoglobin 9.5, previous baseline 10-11, stable, trend. 09/08/2021 hemoglobin 10.1. 10. Diabetes mellitus type II: Hold oral home regimen, continue home insulin regimen, ADA diet, accu checks w/ ISS. 11. Seizure disorder, epilepsy: Continue home Keppra regimen. 12. History of sick sinus syndrome: Status post pacemaker placement, will plan to interrogate. 13. Hypothyroidism: History of goiter status post thyroidectomy, continue home Synthroid regimen. 14. Dementia, unclear type with unclear behavioral disturbance history: Patient does have notable dementia baseline as well as noncompliance, complicates presentation, will continue home aricept and memantine home regimen. 15. Chronic Kidney Disease Stage III: Admission BUN/Cr 23/0.96, baseline renal function 1.1-1.3, continue to trend. 09/08/21 BUN/Cr 22/1.10. 16. Anxiety and depression: Patient does not appear to be extremely anxious but frequently calling out with musculoskeletal discomfort, staff and family concern for some increased anxiety component, will increase duloxetine regimen however with early a.m. fatigue will decrease her trazodone and continue to monitor for adjustments. Discussed with family and noted that it may take time to have affect. 17. GERD: We will continue patient home PPI. 18. ERIC: Noncompliant with CPAP noted prior. Patient a.m. early fatigue certainly could be a component of her noncompliance with CPAP, will attempt to continue to encourage. 19. DVT prophylaxis: SCDs, continue home xarelto regimen. 20. CODE status: Patient ELLA is her daughter Cinthia South and living will is currently in place. DNR-CCA, no intubation status. Charges/Coding Visit Charges Inpatient E&M: 84302 Subs Hosp L2
[2021-09-08 07:05] LABS: Bedside Glucose 141 mg/dL (70-110)
[2021-09-08 07:23] LABS: Absolute Lymphocyte Count 1.39 X10^3/uL (0.83-4.51); Absolute Neutrophil Count 8.7 X10^3/uL (2.0-7.7); Basophil# 0.06 X10^3/uL; Basophil% 0.5 % (0-1); Eosinophil# 0.24 X10^3/uL; Eosinophils% 2.2 % (0-5); Hematocrit 36.7 % (37-47); Hemoglobin 10.1 g/dL (12.0-15.0); Lymphocyte # 1.39 X10^3/ul (0.83-4.51); Lymphocyte % 12.5 % (19-41); Mean Corp Hgb Conc 27.5 g/dL (32-36); Mean Corpuscular Volume 79.8 fL (81-99); Mean Platelet Vol. 11.6 fl (6.2-12.0); Monocyte# 0.68 X10^3/uL; Monocyte% 6.1 % (0-10); NRBC Flagged by Analyzer 0 % (0-5); Neutrophil # 8.71 X10^3/uL (2.7-7.7); Neutrophil % 78.4 % (47-70); Platelet Count 278 K/mm3 (150-450); RBC Distribution Width CV 17.1 % (11.6-14.6); RBC Distribution Width SD 48.5 fl (35.1-43.9); White Blood Count 11.1 K/mm3 (4.4-11.0)
[2021-09-08 07:57] LABS: Albumin, Serum 2.9 g/dL (3.2-5.0); BUN 22 mg/dL (7-18); EST Glomerular Filtration Rate 51 mL/min (>60); Est Glom Filt Rate - Afr Amer 62 mL/min (>60); Glucose 147 mg/dL (74-106); Protein, Total 7.4 g/dL (6.4-8.2)
[2021-09-08 07:58] LABS: ALB/GLOB Ratio 0.6 RATIO (0.9-2.4); AST(SGOT) 15 U/L (15-37); Alanine Aminotransfer ALT/SGPT 16 U/L (13-56); Alkaline Phosphatase 101 U/L (45-117); Anion Gap 5 (5-15); Calcium,Total 9.4 mg/dL (8.5-10.1); Chloride 98 mmol/L (98-107); Globulin 4.5 g/dL (2.2-4.2); Potassium 3.9 mmol/L (3.5-5.1); Sodium Level 142 mmol/L (136-145)
[2021-09-08] MEDS: Fluticasone 0.05% 1 SPRAY NASAL.SRY 2 SPRAY NASAL (08:45)
[2021-09-08] MEDS: Furosemide 40 MG Tablet 60 MG PO ×2 (08:48→17:07)
[2021-09-08] MEDS: Ascorbic Acid 500 MG Tablet PO (08:49)
[2021-09-08] MEDS: Pantoprazole Sodium 20 MG Tablet PO (08:49)
[2021-09-08] MEDS: Memantine Hydrochloride 10 MG Tablet PO ×2 (08:50→21:17)
[2021-09-08] MEDS: Loratadine 10 MG Tablet PO (08:50)
[2021-09-08] MEDS: Isosorbide Mononitrate 60 MG Tablet PO (08:50)
[2021-09-08] MEDS: levETIRAcetam 500 MG Tablet PO ×2 (08:51→21:16)
[2021-09-08] MEDS: Senna Tablet 1 TABLET PO ×2 (08:51→21:17)
[2021-09-08] MEDS: DULoxetine Hcl 30 MG Capsule PO (08:51)
[2021-09-08] MEDS: Potassium Chloride Oral Tablet 20 MEQ PO (08:52)
[2021-09-08 12:11] LABS: Bedside Glucose 146 mg/dL (70-110)
[2021-09-08] MEDS: Rivaroxaban 15 MG Tablet PO (17:07)
[2021-09-08] MEDS: Insulin Lispro 100 UNIT/ML INSULN.PEN SC (17:07)
[2021-09-08 17:16] LABS: Bedside Glucose 150 mg/dL (70-110)
[2021-09-08] MEDS: hydrOXYzine 10 MG Tablet PO (21:15)
[2021-09-08] MEDS: traZODone 50 MG Tablet 25 MG PO (21:16)
[2021-09-08] MEDS: Donepezil HCl 10 MG Tablet PO (21:16)
[2021-09-08 22:25] LABS: Bedside Glucose 146 mg/dL (70-110)
[2021-09-09] VITALS (15 sets, daily range): BP systolic 111–158; BP diastolic 49–68; PULSE 59–64; RESP 18–20; TEMP 36.5–37.1; O2SAT 92–100
[2021-09-09] MEDS: Levothyroxine 50 MCG Tablet PO (06:30)
[2021-09-09 06:46] LABS: Bedside Glucose 116 mg/dL (70-110)
[2021-09-09 06:52] LABS: Absolute Lymphocyte Count 1.36 X10^3/uL (0.83-4.51); Absolute Neutrophil Count 8.2 X10^3/uL (2.0-7.7); Basophil# 0.05 X10^3/uL; Basophil% 0.5 % (0-1); Eosinophil# 0.36 X10^3/uL; Eosinophils% 3.3 % (0-5); Hemoglobin 10.1 g/dL (12.0-15.0); Lymphocyte # 1.36 X10^3/ul (0.83-4.51); Lymphocyte % 12.6 % (19-41); Mean Corp Hgb Conc 28.1 g/dL (32-36); Mean Corpuscular Hgb 22.4 pg (27.0-32.0); Mean Platelet Vol. 11.5 fl (6.2-12.0); Monocyte# 0.76 X10^3/uL; Monocyte% 7.1 % (0-10); NRBC Flagged by Analyzer 0 % (0-5); Neutrophil # 8.22 X10^3/uL (2.7-7.7); Neutrophil % 76.2 % (47-70); Platelet Count 250 K/mm3 (150-450); RBC Distribution Width SD 48.5 fl (35.1-43.9); White Blood Count 10.8 K/mm3 (4.4-11.0)
--- NOTE | 2021-09-09 06:56 | PCM.PN.HOSP ---
Subjective Subjective Patient with no acute events overnight per self and per nursing staff. Patient still does have episodes where she complains of discomfort however this is again reproducible with no EKG changes and unremarkable cardiac enzymes. Patient did feel less fatigued this morning with reduction in the nightly trazodone regimen which she had been on more long-term. This morning she is up, talkative, already working on breakfast which is improved from prior. She denies any dyspnea and states she feels as though she is returned to prior baseline. Did discuss again her anxiety and depression and she remains amenable to the increased regimen of Cymbalta. Patient also remains amenable to skilled and understands that we are waiting a bed. Patient denies fevers, chills, nausea, emesis, abdominal pain. Objective Data Objective Data Vital Signs: Vital Signs Temp Pulse Resp BP Pulse Ox 97.7 F L 60 19 H 158/56 H 92 09/09/21 02:18 09/09/21 03:00 09/09/21 02:18 09/09/21 02:18 09/09/21 02:18 Oxygen Flow Rate (L/min) 2 Oxygen Delivery Method Nasal Cannula Weight: 214 lb 15.211 oz Body Mass Index (BMI) 38.6 Intake & Output: Intake and Output for Last 24 Hours 09/07/21 09/08/21 09/09/21 23:59 23:59 23:59 Intake Total 240 / 340 610 / 610 130 / 130 Output Total 200 / 200 1600 / 1600 Balance 40 / 140 610 / 610 -1470 / -1470 Lab / Micro Data Result Diagrams: 09/09/21 05:13 09/09/21 05:13 Labs: Laboratory Results - last 24 hr 09/08/21 06:55: WBC 11.1 H, RBC 4.60, Hgb 10.1 L, Hct 36.7 L, MCV 79.8 L, MCH 22.0 L, MCHC 27.5 L, RDW Std Deviation 48.5 H, RDW Coeff of Candace 17.1 H, Plt Count 278, MPV 11.6, Immature Gran % (Auto) 0.300, Neut % (Auto) 78.4 H, Lymph % (Auto) 12.5 L, Weld % (Auto) 6.1, Eos % (Auto) 2.2, Baso % (Auto) 0.5, Absolute Neuts (auto) 8.7 H, Absolute Lymphs (auto) 1.39, Nucleated RBC % 0 09/08/21 06:55: Sodium 142, Potassium 3.9, Chloride 98, Carbon Dioxide 39.0 H, Anion Gap 5, BUN 22 H, Creatinine 1.10 H, Estim Creat Clear Calc 36.40, Est GFR (MDRD) Af Amer 62, Est GFR (MDRD) Non-Af 51 L, BUN/Creatinine Ratio 20.0, Glucose 147 H, Calcium 9.4, Total Bilirubin 0.80, AST 15, ALT 16, Alkaline Phosphatase 101, Total Protein 7.4, Albumin 2.9 L, Globulin 4.5 H, Albumin/Globulin Ratio 0.6 L 09/08/21 06:55: POC Glucose 141 H 09/08/21 11:02: POC Glucose 146 H 09/08/21 17:05: POC Glucose 150 H 09/08/21 21:14: POC Glucose 146 H 09/09/21 05:13: WBC 10.8, RBC 4.50, Hgb 10.1 L, Hct 36.0 L, MCV 80.0 L, MCH 22.4 L, MCHC 28.1 L, RDW Std Deviation 48.5 H, RDW Coeff of Candace 17.0 H, Plt Count 250, MPV 11.5, Immature Gran % (Auto) 0.300, Neut % (Auto) 76.2 H, Lymph % (Auto) 12.6 L, Weld % (Auto) 7.1, Eos % (Auto) 3.3, Baso % (Auto) 0.5, Absolute Neuts (auto) 8.2 H, Absolute Lymphs (auto) 1.36, Nucleated RBC % 0 09/09/21 06:26: POC Glucose 116 H Micro: Microbiology 09/05/21 14:40 Blood Culture (Wb) - Right Forearm Blood Culture - Preliminary No growth in 48 hours. 09/05/21 14:46 Nasal Secretion SARS-CoV-2 Antigen (Rapid) - Final Physical Exam Narrative Physical Examination: General: Patient is much more awake, alert, oriented to self, place and some recent events, does have underlying dementia but more interactive this morning. Skin: normal color, turgor, no icterus, cyanosis except occasional staged ecchymoses, BL LE stasis disease although less pronounced since diuresis, upper bilateral chest chronic wounds which are currently dressed and again encouraged patient to not pick at. HEENT: AT/NC, EOMI, PERRLA, MMM. Lungs: Diminished breath sounds, greater bases, appropriate effort, improved, no rales, ronchi or wheezing. Heart: Irregular, rate controlled; no gallop, rub audible. Still has reproducible discomfort with palpitation. Abdomen: soft, morbidly obese, NTTP, ND although difficult exam given habitus, distant normal BS. Extremities: no cyanosis or clubbing, significantly improved lower extremities with resolution of prior 3+ pitting edema, still significant bilateral lower extremity neuropathic pain with palpation Neurological: Awake, alert, oriented as noted, cognitive function at baseline with underlying dementia, pupils equally reactive to light and accommodation, cranial nerves II-XII grossly normal, moving all 4 extremities, no focal deficits, strength improving, moderately globally decreased Psychiatric: Affect appears improved, more alert this morning with medication adjustments, no obvious current anxiety or depression but did discuss recent family concerns and patient is amenable to the Cymbalta increase. Assessment & Plan Assessment/Plan (1) CHF (congestive heart failure): QUALIFIERS: Heart failure chronicity: acute Heart failure type: diastolic Qualified Code(s): I50.31 - Acute diastolic (congestive) heart failure (2) Acute dyspnea: PLAN: The patient is a 73 y/o F w/ PMHx: Chronic normocytic anemia, CAD s/p PCI SITA proximal LAD 2004 and SITA Linferolateral marginal branch 2010, Hx Sick Sinus Syndrome s/p pacemaker placement, GERD, HTN, HLD, Chronic Diastolic CHF, PAF, Anxiety and Depression, Seizure disorder, Diabetes mellitus type II, ERIC, CKD stage III, Chronic back pain, Hypothyroidism, Dementia unclear type with unclear behavioral disturbance history who presents to the [facility] ED on 09/05[facility]21 with history of increased fatigue, malaise, dyspnea, worsening with exertion with dry cough and worsening oxygenation of 88% on her baseline 2L NC with inability to function in her assisted living with likely need for SNF. 1. Acute on Chronic Diastolic CHF w/ Chronic Hypoxic Respiratory Failure w/ mildly increased hypoxia: Patient administered IV lasix in the ED, will admit to PCU, maintain on cardiac telemetry, obtain cardiac enzyme series, obtain serial EKGs, continue IV lasix diuresis with oral transition 09/07/21, monitor I/Os, maintain on intake restriction, continue medical therapy, TSH 1.60, magnesium 1.7. Most recent ECHO noted 05/28/2021 with normal LV size, hyperdynamic LV systolic function, EF 65%, mild concentric LVH, ICD/pacer leads identified in the right ventricle. Attempted BL LE snug dwain wraps with BL LE elevation; however, patient has not been amenable. Awaiting for assisted facility precertification. 2. Chest Pain, musculoskeletal: EKG in ED no acute evidence of ischemia, serial enzymes have been unremarkable, chest x-ray with no acute cardiopulmonary findings. Patient on telemetry monitoring with no acute events, significantly reproducible chest discomfort. Suspect likely musculoskeletal in nature. Family is concerned for increased anxiety with adjustments as noted. 3. Hypokalemia: Admission K+ 3.3, magnesium level 1.7 with supplementation administered, 09/09/2021 potassium 3.4, will give additional supplement. Patient has already been initiated on daily 20 mill equivalent potassium but may need this increase. 4. Chronic chest wounds, non-infected appearing: CBC not marked appearing, no obvious infection, wound RN consulted, continue dressings especially given tendency to pick at the wound. 5. CAD with Chest pain complaint: Status post PCI proximal LAD 2004 as well as left anterior lateral marginal branch in 2010, continue aspirin, prasugrel, statin, metoprolol, not on DWAIN inhibitor or ARB. 6. PAF: Continue patient home metoprolol, continue aspirin/prasugrel as well as home xarelto regimen. 7. Hypertension: Continue home metoprolol regimen, isosorbide, IV Lasix initially with 09/07/21 oral transition, as needed IV hydralazine 8. Hyperlipidemia: Continue home statin therapy, AM FLP w/ TG 106, total cholesterol was 163, LDL 106, VLDL 21, HDL 36. 9. Chronic normocytic anemia: Admission hemoglobin 9.5, previous baseline 10-11, stable, trend. 09/09/2021 hemoglobin 10.1. 10. Diabetes mellitus type II: Hold oral home regimen, continue home insulin regimen, ADA diet, accu checks w/ ISS. 11. Seizure disorder, epilepsy: Continue home Keppra regimen. 12. History of sick sinus syndrome: Status post pacemaker placement, will plan to interrogate. 13. Hypothyroidism: History of goiter status post thyroidectomy, continue home Synthroid regimen. 14. Dementia, unclear type with unclear behavioral disturbance history: Patient does have notable dementia baseline as well as noncompliance, complicates presentation, will continue home aricept and memantine home regimen. 15. Chronic Kidney Disease Stage III: Admission BUN/Cr 23/0.96, baseline renal function 1.1-1.3, continue to trend. 09/09/21 BUN/Cr 24/1.06. 16. Anxiety and depression: Patient does not appear to be extremely anxious but frequently calling out with musculoskeletal discomfort, staff and family concern for some increased anxiety component, 09/08/2021 increased patient duloxetine regimen and given concerns for a.m. early sedation did decrease her trazodone by one half with 09/09/2021 evaluation with significant improvement, more alert, more interactive. 17. GERD: We will continue patient home PPI. 18. ERIC: Noncompliant with CPAP noted prior. 19. DVT prophylaxis: SCDs, continue home xarelto regimen. 20. CODE status: Patient HCPOA is her daughter Cinthia South and living will is currently in place. DNR-CCA, no intubation status. Charges/Coding Visit Charges Inpatient E&M: 95935 Subs Hosp L2
[2021-09-09 07:15] LABS: Albumin, Serum 2.7 g/dL (3.2-5.0); BUN 24 mg/dL (7-18); BUN/Creat Ratio 22.6 RATIO (10-20); Creatinine, Serum 1.06 mg/dL (0.55-1.02); EST Glomerular Filtration Rate 53 mL/min (>60); Est Glom Filt Rate - Afr Amer 65 mL/min (>60); Estimated Creatinine Clearance 37.77 ml/min; Glucose 113 mg/dL (74-106); Protein, Total 7.6 g/dL (6.4-8.2)
[2021-09-09 07:16] LABS: ALB/GLOB Ratio 0.6 RATIO (0.9-2.4); AST(SGOT) 18 U/L (15-37); Alanine Aminotransfer ALT/SGPT 19 U/L (13-56); Alkaline Phosphatase 94 U/L (45-117); Anion Gap 6 (5-15); Calcium,Total 9.2 mg/dL (8.5-10.1); Chloride 96 mmol/L (98-107); Globulin 4.9 g/dL (2.2-4.2); Potassium 3.4 mmol/L (3.5-5.1); Sodium Level 143 mmol/L (136-145)
[2021-09-09] MEDS: Acetaminophen 325 MG Tablet 650 MG PO ×2 (10:50→22:47)
[2021-09-09] MEDS: Loratadine 10 MG Tablet PO (10:50)
[2021-09-09] MEDS: Pantoprazole Sodium 20 MG Tablet PO (10:50)
[2021-09-09] MEDS: Isosorbide Mononitrate 60 MG Tablet PO (10:50)
[2021-09-09] MEDS: DULoxetine Hcl 60 MG Capsule PO (10:51)
[2021-09-09] MEDS: Senna Tablet 1 TABLET PO ×2 (10:51→19:47)
[2021-09-09] MEDS: Fluticasone 0.05% 1 SPRAY NASAL.SRY 2 SPRAY NASAL (10:51)
[2021-09-09] MEDS: Potassium Chloride Oral Tablet 20 MEQ PO (10:52)
[2021-09-09] MEDS: levETIRAcetam 500 MG Tablet PO ×2 (10:52→19:47)
[2021-09-09] MEDS: Memantine Hydrochloride 10 MG Tablet PO ×2 (10:53→19:58)
[2021-09-09] MEDS: Furosemide 40 MG Tablet 60 MG PO ×2 (10:53→17:13)
[2021-09-09] MEDS: Ascorbic Acid 500 MG Tablet PO (10:54)
[2021-09-09 11:45] LABS: Bedside Glucose 141 mg/dL (70-110)
[2021-09-09] MEDS: Nitroglycerin (INPATIENT USE) 0.4 MG TAB.SUBL SL ×2 (12:58→13:10)
--- NOTE | 2021-09-09 13:01 | EKG12_ITS ---
Test Reason : CP Blood Pressure : / mmHG Vent. Rate : 060 BPM Atrial Rate : 062 BPM P-R Int : 000 ms QRS Dur : 170 ms QT Int : 526 ms P-R-T Axes : 000 -78 083 degrees QTc Int : 526 ms Ventricular-paced rhythm Abnormal ECG When compared with ECG of 06-SEP-2021 13:34, No significant change was found Confirmed by TAM GALINDO, LORRAINE ([id number]), book editor WILLIS HAWKINS ([id number]) on 09/11/2021 9:24:47 AM Referred By: JOSE Confirmed By:LORRAINE TURCIOS MD
[2021-09-09] MEDS: Potassium Chloride Oral Tablet 20 MEQ 40 MEQ PO (13:02)
[2021-09-09] MEDS: Rivaroxaban 15 MG Tablet PO (17:13)
[2021-09-09 17:16] LABS: Bedside Glucose 142 mg/dL (70-110)
[2021-09-09] MEDS: traZODone 50 MG Tablet 25 MG PO (19:47)
[2021-09-09] MEDS: Donepezil HCl 10 MG Tablet PO (19:48)
[2021-09-09] MEDS: Latanoprost 0.005% 1 Bottle 1 DRP OPHTHALMIC (19:48)
[2021-09-09] MEDS: hydrOXYzine 10 MG Tablet PO (19:48)
[2021-09-09] MEDS: Insulin Lispro 100 UNIT/ML INSULN.PEN SC (19:53)
[2021-09-09 20:01] LABS: Bedside Glucose 171 mg/dL (70-110)
--- NOTE | 2021-09-09 22:20 | NURSING ---
pt c/o bloody nose. Water already added to 02. Informed pt not to pick her nose.Hands bloody. Informed her to blot her nose only and no blowing. Pt voiced understanding
--- NOTE | 2021-09-09 22:30 | NURSING ---
Pt appears to be getting confused at this time, earlier pt was oriented. Pt not remembering nurse was just in her room and talked about nose bleed
[2021-09-09] MEDS: HYDROcodone Bitartrate/Apap 5/325 Tablet PO (22:47)
--- NOTE | 2021-09-09 22:55 | NURSING ---
Called into pt room. Pt said no one has been in her room for hours. Pt said she is all wet. diaper checked. Pt dry. Informed pt i was just in her room .I gave her pain pill for claros pain. Pt became nasty and you people all want me to . Inform pt i do not. Pt then closed her eyes and said leave me alone.
[2021-09-10 03:09] VITALS: PULSE 60
[2021-09-10 04:45] VITALS: BP 154/60; PULSE 50; RESP 17; TEMP 36.6; O2SAT 99
[2021-09-10] MEDS: Levothyroxine 50 MCG Tablet PO (06:28)
--- NOTE | 2021-09-10 06:34 | PCM.PN.HOSP ---
Objective Data Objective Data Vital Signs: Vital Signs Temp Pulse Resp BP Pulse Ox 97.9 F 50 L 17 154/60 H 99 09/10/21 04:45 09/10/21 04:45 09/10/21 04:45 09/10/21 04:45 09/10/21 04:45 Oxygen Flow Rate (L/min) 2 Oxygen Delivery Method Nasal Cannula Weight: 210 lb 15.718 oz Body Mass Index (BMI) 38.6 Intake & Output: Intake and Output for Last 24 Hours 09/08/21 09/09/21 09/10/21 23:59 23:59 23:59 Intake Total 610 / 610 1030 / 1030 Output Total 3000 / 3000 250 / 250 Balance 610 / 610 -1970 / -1969 -250 / -250 Lab / Micro Data Result Diagrams: 09/09/21 05:13 09/09/21 05:13 Labs: Laboratory Results - last 24 hr 09/09/21 05:13: WBC 10.8, RBC 4.50, Hgb 10.1 L, Hct 36.0 L, MCV 80.0 L, MCH 22.4 L, MCHC 28.1 L, RDW Std Deviation 48.5 H, RDW Coeff of Candace 17.0 H, Plt Count 250, MPV 11.5, Immature Gran % (Auto) 0.300, Neut % (Auto) 76.2 H, Lymph % (Auto) 12.6 L, Bradford % (Auto) 7.1, Eos % (Auto) 3.3, Baso % (Auto) 0.5, Absolute Neuts (auto) 8.2 H, Absolute Lymphs (auto) 1.36, Nucleated RBC % 0 09/09/21 05:13: Sodium 143, Potassium 3.4 L, Chloride 96 L, Carbon Dioxide 41.0 H, Anion Gap 6, BUN 24 H, Creatinine 1.06 H, Estim Creat Clear Calc 37.77, Est GFR (MDRD) Af Amer 65, Est GFR (MDRD) Non-Af 53 L, BUN/Creatinine Ratio 22.6 H, Glucose 113 H, Calcium 9.2, Total Bilirubin 0.60, AST 18, ALT 19, Alkaline Phosphatase 94, Total Protein 7.6, Albumin 2.7 L, Globulin 4.9 H, Albumin/Globulin Ratio 0.6 L 09/09/21 06:26: POC Glucose 116 H 09/09/21 11:39: POC Glucose 141 H 09/09/21 17:09: POC Glucose 142 H 09/09/21 19:53: POC Glucose 171 H Micro: Microbiology 09/05/21 14:40 Blood Culture (Wb) - Right Forearm Blood Culture - Preliminary No growth in 48 hours. 09/05/21 14:46 Nasal Secretion SARS-CoV-2 Antigen (Rapid) - Final Physical Exam Narrative Physical Examination: General: Patient is much more awake, alert, oriented to self, place and some recent events, does have underlying dementia but more interactive this morning. Skin: normal color, turgor, no icterus, cyanosis except occasional staged ecchymoses, BL LE stasis disease although less pronounced since diuresis, upper bilateral chest chronic wounds which are currently dressed and again encouraged patient to not pick at. HEENT: AT/NC, EOMI, PERRLA, MMM. Lungs: Diminished breath sounds, greater bases, appropriate effort, improved, no rales, ronchi or wheezing. Heart: Irregular, rate controlled; no gallop, rub audible. Still has reproducible discomfort with palpitation. Abdomen: soft, morbidly obese, NTTP, ND although difficult exam given habitus, distant normal BS. Extremities: no cyanosis or clubbing, significantly improved lower extremities with resolution of prior 3+ pitting edema, still significant bilateral lower extremity neuropathic pain with palpation Neurological: Awake, alert, oriented as noted, cognitive function at baseline with underlying dementia, pupils equally reactive to light and accommodation, cranial nerves II-XII grossly normal, moving all 4 extremities, no focal deficits, strength improving, moderately globally decreased Psychiatric: Affect appears improved, more alert this morning with medication adjustments, no obvious current anxiety or depression but did discuss recent family concerns and patient is amenable to the Cymbalta increase. Assessment & Plan Assessment/Plan (1) CHF (congestive heart failure): QUALIFIERS: Heart failure type: diastolic Heart failure chronicity: acute Qualified Code(s): I50.31 - Acute diastolic (congestive) heart failure (2) Acute dyspnea: PLAN: The patient is a 73 y/o F w/ PMHx: Chronic normocytic anemia, CAD s/p PCI SITA proximal LAD 2004 and SITA Linferolateral marginal branch 2010, Hx Sick Sinus Syndrome s/p pacemaker placement, GERD, HTN, HLD, Chronic Diastolic CHF, PAF, Anxiety and Depression, Seizure disorder, Diabetes mellitus type II, ERIC, CKD stage III, Chronic back pain, Hypothyroidism, Dementia unclear type with unclear behavioral disturbance history who presents to the [facility] ED on 09/05/21 with history of increased fatigue, malaise, dyspnea, worsening with exertion with dry cough and worsening oxygenation of 88% on her baseline 2L NC with inability to function in her assisted living with likely need for SNF. 1. Acute on Chronic Diastolic CHF w/ Chronic Hypoxic Respiratory Failure w/ mildly increased hypoxia: Patient administered IV lasix in the ED, will admit to PCU, maintain on cardiac telemetry, obtain cardiac enzyme series, obtain serial EKGs, continue IV lasix diuresis with oral transition 09/07/21, monitor I/Os, maintain on intake restriction, continue medical therapy, TSH 1.60, magnesium 1.7. Most recent ECHO noted 05/28/2021 with normal LV size, hyperdynamic LV systolic function, EF 65%, mild concentric LVH, ICD/pacer leads identified in the right ventricle. Attempted BL LE snug dwain wraps with BL LE elevation; however, patient has not been amenable. Awaiting for group home facility precertification. 2. Chest Pain, musculoskeletal: EKG in ED no acute evidence of ischemia, serial enzymes have been unremarkable, chest x-ray with no acute cardiopulmonary findings. Patient on telemetry monitoring with no acute events, significantly reproducible chest discomfort. Suspect likely musculoskeletal in nature. Family is concerned for increased anxiety with adjustments as noted. 3. Hypokalemia: Admission K+ 3.3, magnesium level 1.7 with supplementation administered, 09/09/2021 potassium 3.4, will give additional supplement. Patient has already been initiated on daily 20 mill equivalent potassium but may need this increase. 4. Chronic chest wounds, non-infected appearing: CBC not marked appearing, no obvious infection, wound RN consulted, continue dressings especially given tendency to pick at the wound. 5. CAD with Chest pain complaint: Status post PCI proximal LAD 2004 as well as left anterior lateral marginal branch in 2010, continue aspirin, prasugrel, statin, metoprolol, not on DWAIN inhibitor or ARB. 6. PAF: Continue patient home metoprolol, continue aspirin/prasugrel as well as home xarelto regimen. 7. Hypertension: Continue home metoprolol regimen, isosorbide, IV Lasix initially with 09/07/21 oral transition, as needed IV hydralazine 8. Hyperlipidemia: Continue home statin therapy, AM FLP w/ TG 106, total cholesterol was 163, LDL 106, VLDL 21, HDL 36. 9. Chronic normocytic anemia: Admission hemoglobin 9.5, previous baseline 10-11, stable, trend. 09/09/2021 hemoglobin 10.1. 10. Diabetes mellitus type II: Hold oral home regimen, continue home insulin regimen, ADA diet, accu checks w/ ISS. 11. Seizure disorder, epilepsy: Continue home Keppra regimen. 12. History of sick sinus syndrome: Status post pacemaker placement, will plan to interrogate. 13. Hypothyroidism: History of goiter status post thyroidectomy, continue home Synthroid regimen. 14. Dementia, unclear type with unclear behavioral disturbance history: Patient does have notable dementia baseline as well as noncompliance, complicates presentation, will continue home aricept and memantine home regimen. 15. Chronic Kidney Disease Stage III: Admission BUN/Cr 23/0.96, baseline renal function 1.1-1.3, continue to trend. 09/09/21 BUN/Cr 24/1.06. 16. Anxiety and depression: Patient does not appear to be extremely anxious but frequently calling out with musculoskeletal discomfort, staff and family concern for some increased anxiety component, 09/08/2021 increased patient duloxetine regimen and given concerns for a.m. early sedation did decrease her trazodone by one half with 09/09/2021 evaluation with significant improvement, more alert, more interactive. 17. GERD: We will continue patient home PPI. 18. ERIC: Noncompliant with CPAP noted prior. 19. DVT prophylaxis: SCDs, continue home xarelto regimen. 20. CODE status: Patient HCPBO is her daughter Cinthia South and living will is currently in place. DNR-CCA, no intubation status.
[2021-09-10 06:36] LABS: Bedside Glucose 127 mg/dL (70-110)
[2021-09-10 06:49] LABS: Absolute Neutrophil Count 7.8 X10^3/uL (2.0-7.7); Basophil# 0.08 X10^3/uL; Basophil% 0.7 % (0-1); Eosinophil# 0.33 X10^3/uL; Hematocrit 36.1 % (37-47); Hemoglobin 10.2 g/dL (12.0-15.0); Lymphocyte % 16.6 % (19-41); Mean Corp Hgb Conc 28.3 g/dL (32-36); Mean Corpuscular Hgb 22.4 pg (27.0-32.0); Mean Corpuscular Volume 79.2 fL (81-99); Mean Platelet Vol. 11.3 fl (6.2-12.0); Monocyte# 0.84 X10^3/uL; Monocyte% 7.7 % (0-10); NRBC Flagged by Analyzer 0 % (0-5); Neutrophil # 7.77 X10^3/uL (2.7-7.7); Neutrophil % 71.6 % (47-70); Platelet Count 275 K/mm3 (150-450); RBC Distribution Width SD 47.8 fl (35.1-43.9); Red Blood Count 4.56 M/mm3 (4.2-5.4); White Blood Count 10.9 K/mm3 (4.4-11.0)
[2021-09-10 06:56] VITALS: PULSE 60
[2021-09-10 07:21] LABS: ALB/GLOB Ratio 0.5 RATIO (0.9-2.4); AST(SGOT) 22 U/L (15-37); Alanine Aminotransfer ALT/SGPT 22 U/L (13-56); Albumin, Serum 2.7 g/dL (3.2-5.0); Alkaline Phosphatase 95 U/L (45-117); Anion Gap 5 (5-15); BUN 22 mg/dL (7-18); Calcium,Total 9.5 mg/dL (8.5-10.1); Chloride 97 mmol/L (98-107); EST Glomerular Filtration Rate 51 mL/min (>60); Est Glom Filt Rate - Afr Amer 62 mL/min (>60); Glucose 128 mg/dL (74-106); Potassium 3.9 mmol/L (3.5-5.1); Protein, Total 7.7 g/dL (6.4-8.2); Sodium Level 142 mmol/L (136-145)
[2021-09-10 07:52] VITALS: O2SAT 95
[2021-09-10 08:29] VITALS: BP 170/70; PULSE 60; RESP 15; TEMP 36.9; O2SAT 99
[2021-09-10] MEDS: Furosemide 40 MG Tablet 60 MG PO (08:37)
[2021-09-10] MEDS: Loratadine 10 MG Tablet PO (08:38)
[2021-09-10] MEDS: Potassium Chloride Oral Tablet 20 MEQ PO (08:38)
[2021-09-10] MEDS: Ascorbic Acid 500 MG Tablet PO (08:38)
[2021-09-10] MEDS: Isosorbide Mononitrate 60 MG Tablet PO (08:38)
[2021-09-10] MEDS: Pantoprazole Sodium 20 MG Tablet PO (08:39)
[2021-09-10] MEDS: Memantine Hydrochloride 10 MG Tablet PO (08:39)
[2021-09-10] MEDS: levETIRAcetam 500 MG Tablet PO (08:39)
[2021-09-10] MEDS: Senna Tablet 1 TABLET PO (08:40)
[2021-09-10] MEDS: DULoxetine Hcl 60 MG Capsule PO (08:40)
[2021-09-10] MEDS: Fluticasone 0.05% 1 SPRAY NASAL.SRY 2 SPRAY NASAL (08:41)
--- NOTE | 2021-09-10 09:10 | CASEMGMT ---
Updates faxed to [facility]. Tonja Benavidez SENIOR UNIX ADMINISTRATOR FENCE SUPERVISOR
--- NOTE | 2021-09-10 10:22 | CASEMGMT ---
MINAL received a call from Priya at [facility] and patient was approved. MINAL notified physician. Orders faxed to [facility]. Awaiting COVID test and will then set up transport. Tonja SAVAGE
--- NOTE | 2021-09-10 11:47 | CASEMGMT ---
MINAL faxed negative COVID test to [facility]. MINAL arranged for patient to get picked up at 1300 via cot. MINAL notified RN who said she will call patient's daughter. MINAL also notified Priya at [facility] and charge operator. Plan: d/c to [facility] under skilled level of care on a convalescent stay. [facility] transported via cot. Tonja SAVAGE
[2021-09-10 12:11] LABS: Bedside Glucose 184 mg/dL (70-110)
[2021-09-10] MEDS: Ondansetron 4 MG/2 ML Vial IV (12:37)
[2021-09-10] MEDS: 0.9% Saline Lock 10 ML Syringe IV (12:37)
[2021-09-10 13:00] VITALS: BP 152/74; PULSE 65; RESP 14; TEMP 36.6; O2SAT 98
--- NOTE | 2021-09-10 14:37 | DS.PCM_ITS ---
Providers Date of Admission: 09/05/21 Primary Care Physician: Dr. Emerita Gottlieb MD Consultations 09/05/21 16:24 Consult: Onc/Wound/ladle repairman Routine Comment: Reason For Visit: ACUTE CHF EXACERBATION Diagnosis Discharge Diagnosis (1) CHF (congestive heart failure): Status: Acute Code(s): I50.9 - Heart failure, unspecified Qualifiers: Heart failure type: diastolic Heart failure chronicity: acute Qualified Code(s): I50.31 - Acute diastolic (congestive) heart failure (2) Acute dyspnea: Status: Acute Code(s): R06.00 - Dyspnea, unspecified Medications at Discharge Home Medications prasugrel 10 mg PO DAILY 06/04/18 duloxetine 30 mg PO DAILY 11/18/18 levetiracetam 500 mg tablet 500 mg PO BID tab 04/19/20 omeprazole 20 mg PO DAILY 05/18/20 acetaminophen 650 mg PO Q6H PRN PRN tab 05/22/20 fluticasone propionate 2 spray NARES BID 12/13/20 nitroglycerin 0.4 mg SUBLINGUAL PRN PRN 12/13/20 latanoprost 0.005 % eye drops 1 drp EACH EYE QHS 01/05/21 sennosides 8.6 mg capsule 8.6 mg PO BID 01/05/21 cetirizine [Zyrtec] 10 mg PO DAILY 05/26/21 donepezil [Aricept] 10 mg PO QHS 05/26/21 levothyroxine [Synthroid] 50 mcg PO DAILY 05/26/21 memantine 10 mg PO BID 05/26/21 potassium chloride 20 meq PO DAILY 05/26/21 trazodone 50 mg PO QHS 05/26/21 isosorbide mononitrate 60 mg PO DAILY #30 tab 06/02/21 Lantus Solostar U-100 Insulin 15 unit SUBCUT QHS 09/05/21 Lantus Solostar U-100 Insulin 20 unit SUBCUT DAILY 09/05/21 Xarelto 15 mg PO DINNER 09/05/21 ascorbic acid (vitamin C) 500 mg PO DAILY 09/05/21 hydrocodone-acetaminophen 1 tab PO Q8H PRN 09/05/21 hydroxyzine HCl 10 mg PO QHS 09/05/21 furosemide 60 mg PO BIDLX 30 Days #0 tab 09/07/21 Hospital Course Operations None Procedures EKG Summary of Care Provided Minutes Spent on Discharge: 35 Hospital Course: DISCHARGE NOTE: Discharge Diagnoses: 1. Acute on Chronic Diastolic CHF w/ Chronic Hypoxic Respiratory Failure w/ mildly increased hypoxia 2. Chest Pain, musculoskeletal 3. Hypokalemia 4. Chronic chest wounds, non-infected appearing, complicated by frequent picking 5. CAD with Chest pain complaint 6. PAF 7. Hypertension 8. Hyperlipidemia 9. Chronic normocytic anemia 10. Diabetes mellitus type II 11. Seizure disorder, epilepsy 12. History of sick sinus syndrome 13. Hypothyroidism 14. Dementia, unclear type with unclear behavioral disturbance history 15. Chronic Kidney Disease Stage III, unclear subtype. 16. Anxiety and depression 17. GERD 18. ERIC, noncompliant with CPAP noted prior. 19. CODE status: Patient HCPOA daughter Cinthia South and living will in place. DNR-CCA, no intubation status. Discharge Summary: The patient is a 73 y/o F w/ PMHx: Chronic normocytic anemia, CAD s/p PCI SITA proximal LAD 2004 and SITA Linferolateral marginal branch 2010, Hx Sick Sinus Syndrome s/p pacemaker placement, GERD, HTN, HLD, Chronic Diastolic CHF, PAF, Anxiety and Depression, Seizure disorder, Diabetes mellitus type II, ERIC, CKD stage III, Chronic back pain, Hypothyroidism, Dementia unclear type with unclear behavioral disturbance history who presented to the [facility] ED on 09/05/21 with history of increased fatigue, malaise, dyspnea, worsening with exertion with dry cough and worsening oxygenation of 88% on her baseline 2L NC with inability to function in her assisted living with likely need for SNF. Patient administered IV lasix in the ED, will admit to PCU, maintain on cardiac telemetry, obtain cardiac enzyme series, obtain serial EKGs, continue IV lasix diuresis with oral transition 09/07/21, monitor I/Os, maintain on intake restriction, continue medical therapy, TSH 1.60, magnesium 1.7. Most recent ECHO noted 05/28/2021 with normal LV size, hyperdynamic LV systolic function, EF 65%, mild concentric LVH, ICD/pacer leads identified in the right ventricle. Attempted BL LE snug dwain wraps with BL LE elevation; however, patient not amenable. During admission patient with ongoing several episodes of chest discomfort which is reproducible, no events on telemetry monitoring and serial enzymes remained unremarkable. Per family concerns and following discussion with patient suspected secondary also to underlying increased anxiety and depression with adjustments to her Cymbalta. Patient also had notable lethargy each morning therefore her nightly trazodone was also decreased with great effect. During admission patient with notable bilateral chest wounds as well as wounds to the ear secondary to frequent scratching and picking therefore education was continuously initiated. Dry dressings were so frequent placed to assist in helping patient avoid scratching. Patient evaluated by skilled therapy and transition to retirement facility once bed available as unsafe and not appropriate for assisted living. Patient discharged with recommendation for follow-up with PCP as well as cardiology office. Discharge Time: > 35 Minutes DAY OF DISCHARGE PROGRESS NOTE: Subjective: Patient without acute event overnight per self and nursing report. Patient this morning did complain to nursing staff of itching specifically in her left ear however examination with normal EOMs however she does have scratching which is notable for crusted blood also evident on her left hand and fingernails. Again had lengthy discussion about the benefits of avoiding picking. Patient denies fever, chills, nausea, emesis, abdominal pain or dyspnea. Patient agreeable to discharge to retirement facility given bed availability. Objective: T 98, heart rate 65, BP 152/74, respiratory rate 14, 90% on 2 L nasal cannula. Physical Examination: General: Patient is much more awake, alert, oriented to self, place and some recent events, continues to be more alert with recent medication changes. Skin: normal color, turgor, no icterus, cyanosis except occasional staged ecchymoses, BL LE stasis disease although less pronounced since diuresis, upper bilateral chest chronic wounds which are currently improving secondary to frequently being dressed as this limits patient picking, evidence also left ear picking and small scratch with dried crusted blood and blood on her fingernails. HEENT: AT/NC, EOMI, PERRLA, MMM, bilateral OM appropriate appearing with no obvi ous evidence of infection, left ear with small scratch and laceration with some crusted bleeding, encourage strongly patient to avoid picking again. Lungs: Diminished breath sounds, greater bases, appropriate effort, improved, no rales, ronchi or wheezing. Heart: Irregular, rate controlled; no gallop, rub audible, ongoing mild midsternal reproducible discomfort with palpation. Abdomen: soft, morbidly obese, NTTP, ND although difficult exam given habitus, distant normal BS. Extremities: no cyanosis or clubbing, significantly improved lower extremities with resolution of prior 3+ pitting edema which is currently resolved, still significant bilateral lower extremity neuropathic pain with palpation. Neurological: Awake, alert, oriented as noted, cognitive function at baseline with underlying dementia, pupils equally reactive to light and accommodation, cranial nerves II-XII grossly normal, moving all 4 extremities, no focal deficits, strength improving, moderately globally decreased Psychiatric: Affect appears improved, continues to remain more alert, no obvious evidence of anxiety or depression currently. Assessment and Plan: Please see hospital summary above. Weight / BMI Weight Weight: 210 lb 15.718 oz Body Mass Index (BMI) 38.6 ABG / Lab / Microbiology Data Result Diagrams: 09/10/21 05:45 09/10/21 05:45 Laboratory: Laboratory Results - last 24 hr 09/09/21 17:09: POC Glucose 142 H 09/09/21 19:53: POC Glucose 171 H 09/10/21 05:45: WBC 10.9, RBC 4.56, Hgb 10.2 L, Hct 36.1 L, MCV 79.2 L, MCH 22.4 L, MCHC 28.3 L, RDW Std Deviation 47.8 H, RDW Coeff of Candace 17.0 H, Plt Count 275, MPV 11.3, Immature Gran % (Auto) 0.400, Neut % (Auto) 71.6 H, Lymph % (Auto) 16.6 L, Nuckolls % (Auto) 7.7, Eos % (Auto) 3.0, Baso % (Auto) 0.7, Absolute Neuts (auto) 7.8 H, Absolute Lymphs (auto) 1.80, Nucleated RBC % 0 09/10/21 05:45: Sodium 142, Potassium 3.9, Chloride 97 L, Carbon Dioxide 40.0 H, Anion Gap 5, BUN 22 H, Creatinine 1.10 H, Estim Creat Clear Calc 36.40, Est GFR (MDRD) Af Amer 62, Est GFR (MDRD) Non-Af 51 L, BUN/Creatinine Ratio 20.0, Glucose 128 H, Calcium 9.5, Total Bilirubin 0.60, AST 22, ALT 22, Alkaline Phosphatase 95, Total Protein 7.7, Albumin 2.7 L, Globulin 5.0 H, Albumin/Globulin Ratio 0.5 L 09/10/21 06:27: POC Glucose 127 H 09/10/21 12:04: POC Glucose 184 H Microbiology: Microbiology 09/10/21 10:50 Nasal Secretion SARS-CoV-2 Antigen (Rapid) - Final 09/05/21 14:40 Blood Culture (Wb) - Right Forearm Blood Culture - Preliminary No growth in 48 hours. 09/05/21 14:46 Nasal Secretion SARS-CoV-2 Antigen (Rapid) - Final Meaningful Use Info Meaningful Use Diagnoses (Choose all that apply): CHF AMI/Post PCI/Angioplasty Documented LVEF (%): 65 CHF DWAIN/ARB ordered at discharge?: No Reason DWAIN/ARB not ordered?: Worsening renal disease Documented LVEF (%): 65 Discharge Plan Admission Admit Date/Time: 09/05/21 15:39 Primary Reason for Your Visit: Acute on Chronic Diastolic CHF exac with Chronic Resp Failure w/ Hypoxia Attending Provider: Ana Cristina Stevens Primary Care Provider: Emerita Gottlieb Instructions Additional Instructions / Restrictions: DISCHARGE DIAGNOSES: 1. Acute on Chronic Diastolic CHF w/ Chronic Hypoxic Respiratory Failure w/ mildly increased hypoxia 2. Hypokalemia 3. Chronic chest wounds, non-infected appearing 4. CAD 5. PAF 6. Hypertension 7. Hyperlipidemia 8. Chronic normocytic anemia 9. Diabetes mellitus type II 10. Seizure disorder, epilepsy 11. History of sick sinus syndrome 12. Hypothyroidism 13. Dementia, unclear type with unclear behavioral disturbance history 14. Chronic Kidney Disease Stage III 15. Anxiety and depression 16. GERD 17. ERIC 18. CODE status: Patient ELLA is her daughter Cinthia South and living will is currently in place. DNR-CCA, no intubation status. Discharge Orders/Prescriptions Prescriptions: New furosemide 40 mg Tablet 60 mg PO BIDLX 30 Days Qty: 0 RF: 0 Continued levetiracetam 500 mg tablet 500 mg PO BID RF: 0 latanoprost 0.005 % drops 1 drp EACH EYE QHS RF: 0 senna 8.6 mg capsule 8.6 mg PO BID RF: 0 prasugrel 10 MG tablet 10 mg PO DAILY RF: 0 duloxetine 30 MG capsule,delayed release(DR/EC) 30 mg PO DAILY RF: 0 omeprazole 20 MG capsule 20 mg PO DAILY RF: 0 acetaminophen 325 MG tablet 650 mg PO Q6H PRN PRN (Reason: Pain Score 1-10/Temp > 100.7 F) RF: 0 nitroglycerin 0.4 MG tablet, sublingual 0.4 mg SUBLINGUAL PRN PRN (Reason: chest pain) RF: 0 fluticasone propionate 1 SPRAY spray,suspension 2 spray NARES BID RF: 0 trazodone 50 mg Tablet 50 mg PO QHS RF: 0 cetirizine [Zyrtec] 10 mg Tablet 10 mg PO DAILY RF: 0 donepezil [Aricept] 10 mg Tablet 10 mg PO QHS RF: 0 levothyroxine [Synthroid] 50 mcg Tablet 50 mcg PO DAILY RF: 0 memantine 10 mg Tablet 10 mg PO BID RF: 0 potassium chloride 20 mEq Tablet Extended Release 20 meq PO DAILY RF: 0 isosorbide mononitrate 60 mg Tablet Extended Release 24 Hr 60 mg PO DAILY Qty: 30 RF: 0 hydrocodone-acetaminophen 5-325 mg Tablet 1 tab PO Q8H PRN (Reason: Pain) RF: 0 ascorbic acid (vitamin C) 500 mg Tablet 500 mg PO DAILY RF: 0 hydroxyzine HCl 10 mg Tablet 10 mg PO QHS RF: 0 Lantus Solostar U-100 Insulin 100 unit/mL (3 mL) Insulin Pen 20 unit subcut DAILY RF: 0 Lantus Solostar U-100 Insulin 100 unit/mL (3 mL) insulin pen 15 unit subcut QHS RF: 0 Xarelto 15 mg tablet 15 mg PO DINNER RF: 0 Discontinued furosemide 40 mg tablet 40 mg PO BID Qty: 1 RF: 0 furosemide [Lasix] 20 mg Tablet 20 mg PO BID RF: 0 Referrals / Follow Up: Emerita Gottlieb MD [Primary Care Provider] - (Follow-up within 3-5 days discharge hospital and within 1-2 days SNF discharge.) Kimberly Ramos PA [PHYSICIAN COMBINATION PRESSER] - (Follow-up in 1-2 weeks to review admission.) Disposition Disposition (needs filled in before D/C Order can be placed): [facility] Charges/Coding Visit Charges Inpatient E&M: 50044 Disch Hosp
--- NOTE | 2021-09-10 16:36 | NURSING ---
called several times to give nurse [facility] report 1st time left message on machine at [phone] and now called and [facility] answered unable to reach nurse number left for them to call back again
--- NOTE | 2021-09-10 16:59 | NURSING ---
[facility] called report given
== END 2021-09-10 13:21 | disposition skilled nursing facility (03) | DRG 291 ==
LOC: ED 15:24 → PCU 15:52
PROVIDERS: Admitting Provider Family Medicine; Emergency Provider Emergency Medicine; PCP Internal Medicine; Visit Provider Family Medicine
DX: I13.0 Hypertensive heart and chronic kidney disease with heart failure and stage 1 through stage 4 chronic kidney disease, or unspecified chronic kidney disease (principal); I50.33 Acute on chronic diastolic (congestive) heart failure; J96.11 Chronic respiratory failure with hypoxia; F02.81 Dementia in other diseases classified elsewhere, unspecified severity, with behavioral disturbance; E87.6 Hypokalemia; I25.10 Atherosclerotic heart disease of native coronary artery without angina pectoris; I48.0 Paroxysmal atrial fibrillation; E78.5 Hyperlipidemia, unspecified; D63.1 Anemia in chronic kidney disease; E11.22 Type 2 diabetes mellitus with diabetic chronic kidney disease; G40.909 Epilepsy, unspecified, not intractable, without status epilepticus; E89.0 Postprocedural hypothyroidism; F41.9 Anxiety disorder, unspecified; F32.A Depression, unspecified; K21.9 Gastro-esophageal reflux disease without esophagitis; G47.33 Obstructive sleep apnea (adult) (pediatric); F42.4 Excoriation (skin-picking) disorder; G30.9 Alzheimer's disease, unspecified; N18.32 Chronic kidney disease, stage 3b; Z91.19 Patient's noncompliance with other medical treatment and regimen; Z99.81 Dependence on supplemental oxygen; Z79.4 Long term (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 of insulin; Z79.02 Long term (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 of antithrombotics/antiplatelets; Z79.899 Other long term (current) drug therapy; Z87.891 Personal history of nicotine dependence; Z95.5 Presence of coronary angioplasty implant and graft; Z95.0 Presence of cardiac pacemaker; Z66 Do not resuscitate
CPT/HCPCS: 36415; 71045; 80048; 80053; 80061; 81001; 82962; 83605; 83735; 83880; 84443; 84484; 85025; 87040; 87426; 93005; 94640; 97110; 97162; 97166; 97530; 97535; 99251; 99285; J7030; A4216; G0463; J1940; J2405

== ENCOUNTER 2021-10-23 16:08 | Outpatient (CLI) | payer MEDICARE, MEDICAID, SELFPAY ==
[2021-10-23 17:31] LABS: BNP,B-Type NATRIURETIC PEPTIDE 416.1 pg/mL (0-100)
[2021-10-23 17:35] LABS: Anion Gap 5 (5-15); BUN 22 mg/dL (7-18); BUN/Creat Ratio 16.7 RATIO (10-20); Calcium,Total 9.2 mg/dL (8.5-10.1); Chloride 101 mmol/L (98-107); Creatinine, Serum 1.32 mg/dL (0.55-1.02); EST Glomerular Filtration Rate 41 mL/min (>60); Est Glom Filt Rate - Afr Amer 50 mL/min (>60); Glucose 178 mg/dL (74-106); Potassium 4.4 mmol/L (3.5-5.1); Sodium Level 137 mmol/L (136-145)
== END 2021-10-23 23:59 | disposition short-term general hospital (02) ==
LOC: LAB 16:12
PROVIDERS: PCP Family Medicine; Visit Provider Nurse Practitioner Gerontology
DX: I50.32 Chronic diastolic (congestive) heart failure (principal)
CPT/HCPCS: 36415; 80048; 83735; 83880